=== PATIENT | female | born 1960 | race Caucasian/White ===

== ENCOUNTER 2024-10-04 13:22 | Emergency (ER) | payer OTHER, SELFPAY ==
--- NOTE | ~2024-10-04 | XR_ITS ---
EXAMINATION: 1. XR wrist RT min 3V 2. XR hand RT min 3V DATE: 10/04/2024 13:55 INDICATION: Right hand and wrist injury. TECHNIQUE: 3 views of right wrist and 3 views of right hand were obtained. COMPARISON: None. FINDINGS: RIGHT WRIST: There is a transverse fracture of distal ulnar diaphysis. The distal fracture fragment d emonstrates one half shaft width volar displacement, one half shaft width radial displacement, and 11 degrees ulnar angulation. There is an oblique fracture of distal radius. The distal fracture fragmen t demonstrates 2 mm dorsal displacement, impaction, 36 degrees dorsal angulation, and 20 degrees ulna r angulation. There is dislocation of distal radioulnar joint. There is moderate osteoarthritis of tr iscaphe joint and mild osteoarthritis of first carpometacarpal joint. RIGHT HAND: Again seen are the fractures of radius and ulna. There is mild osteoarthritis of some of the interphalangeal joints. IMPRESSION: 1. Transverse fracture of distal ulnar diaphysis. 2. Oblique fracture of distal radius. Reviewed, dictated and finalized at location A. ULA CHECKER IMPRESSION: 1. Transverse fracture of distal ulnar diaphysis. 2. Oblique fracture of distal radius.
--- NOTE | ~2024-10-04 | XR_ITS ---
EXAMINATION: XR forearm RT 2V DATE: 10/04/2024 13:49 INDICATION: Right forearm injury. TECHNIQUE: 2 views of right forearm were obtained. COMPARISON: None. FINDINGS: There is a transverse fracture of distal ulnar diaphysis. The distal fracture fragment demo nstrates 1 cortical width radial displacement, 15 degrees ulnar angulation, one half shaft width vola r displacement, and 8 degrees dorsal angulation. There is an oblique fracture of the distal radius. T he distal fracture fragment demonstrates impaction and 45 degrees dorsal angulation. The elbow joint spaces are normal. No elbow joint effusion. IMPRESSION: 1. Transverse fracture of distal ulnar diaphysis. 2. Oblique fracture of distal radius. Reviewed, dictated and finalized at location A. PER AND PRESERVER
--- OUTSIDE RECORDS SUMMARY | 2024-10-04 13:31 | XMS_ITS | Clinical Summary ---
Author Organization [facility] Address [address] [place] [address] Care Team Providers Care Senior Professional Services Consultant Name Role Phone Shandra Ruffin Malcolm WISDOM-SOFT TOP INSTALLER Primary Care Provider Source Comments [facility],non-owned Affiliates and Associated Physician Practices is amultiple site organization consisting of ambulatory clinics and hospital sitesin [place], [place], [place] and [place]. This disclosure is being madepursuant to the Care Everywhere program and may not contain all information available regarding this patient. Last updated 18.[facility] Allergies Active Allergy Reactions Criticality Noted Date Comments Ciprofloxacin Other,Myalgias Medium 09/02/2017 Tendon and muscle pain BLE. Citrullus Vulgaris Itching,Skin Reactions Medium 08/14 Watemelon Itch and blotchy on chest and face Fluocinolone Unknown Low 02/14/2019 Unknown to Patient Sulfa Drugs Urticaria,Rash High 04/22/2016 Sulfur Dioxide Urticaria High 02/14/2019 Medications * Be aware that medications may not be up to date on this document. Alwaysverify current medications with the patient. Medication Sig Dispensed Refills Start Date End Date Status calcium-vitamin D (CALTRATE PLUS D) 600-200 MG-UNIT tablet Take 1 Tab by mouth once daily. Active ondansetron, disintegrating, (ZOFRAN ODT) 4 MG tablet Take 4 mg by mouth every 6 hours as needed Active DULoxetine (CYMBALTA) 60 MG capsule Take 1 capsule by mouth once daily 3 04/26/2019 Active ALPRAZolam (XANAX) 0.25 MG tablet Take 1 tablet by mouth 2 times daily as needed Active Multiple Vitamin (MULTI-VITAMIN) TABS Take 1 tablet by mouth once daily Active ASPIRIN LOW DOSE 81 MG tablet Take 162 mg by mouth once daily 09/29/2020 Active alendronate (FOSAMAX) 70 MG tablet Take 1 tablet by mouth every 7 days 10/16/2020 Active carvedilol (COREG) 25 MG tablet Take 25 mg by mouth 2 times daily 12/25/2020 Active omeprazole (PRILOSEC) 40 MG capsule Take 40 mg by mouth daily before breakfast 10/28/2021 Active rosuvastatin (CRESTOR) 5 MG tablet Take 5 mg by mouth at bedtime 11/15/2021 Active famotidine (PEPCID) 20 MG tablet Take 40 mg by mouth 11/12/2021 Act cyn levothyroxine (Synthroid) 100 MCG tablet Take 1 (one) tablet by mouth once daily 08/14/2021 Active Cholecalciferol 50 MCG (2000 UT) Take 1 (one) tablet by mouth once daily 05/05/2022 Active celecoxib (CeleBREX) 100 MG capsule Take 1 (one) capsule by mouth 2 times daily 06/21/2022 Active amLODIPine (Norvasc) 5 MG tablet Take 1 (one) tablet by mouth once daily 05/18/2022 Active Active Problems No known active problems Immunizations Name Administration Dates Next Due INFLUENZA VACCINE, TRIV. (AF LURIA, FLUZONE TRIVALENT; 6MO+) (IIV3) 06/16/2016,06/11/2015,06/01/2014,2012,06/14/2012,06/01/2011 Covid PASSNFLY primary monoval ent 12+ yr 0.3mL Purple cap 04/22/2021,04/01/2021 INFLUENZA VACCINE, QUADR. (F LUZONE; FLULAVAL; FLUARIX; AFLURIA QUADRIVALENT; 6MO+), 0.5 ML (IIV4) 08/14/2021,07/17/2020,06/21/2019,2017,07/05/2017 PNEUMOCOCCAL PPSV23 07/18/2017,06/15/2011 Pneumococcal Pcv13 Conj 10/20/2020 TDAP (7yrs+) 06/15/2011 Social History Tobacco Use Types Packs/Day Years Used Date Smoking Tobacco: Former Cigarettes Smokeless Tobacco: Never Comments:Quit 2012 Alcohol Use Standard Drinks/Week Comments Yes 0 (1 standard drink = 0.6 oz pur e alcohol) occasional- once a week PHQ-2 Answer Date Recorded PHQ2 TOTAL SCORE 0 08/03/2021 Sex and Gender Information Value Date Recorded Sex Assigned at Not on file Gender Identity Not on file Sexual Orientation Not on file Last Filed Vital Signs Vital Sign Reading Time Taken Comments Blood Pressure 132/74 01/18/2023 1:30 PM CDT Pulse 90 01/18/2023 1:30 PM CDT Temperature 37.1 C (98.8 F) 01/18/2023 1:30 PM CDT Respiratory Rate 20 11/09/2011 8:50 AM CDT Oxygen Saturation 95% 01/18/2023 1:30 PM CDT Inhaled Oxygen Concentration - - Weight 70.7 kg (155 lb 12.8 oz) 01/18/2023 1:30 PM CDT Height 157.5 cm (5' 2.01 ) 01/18/2023 1:30 PM CD T Body Mass Index 28.49 01/18/2023 1:30 PM CDT Plan of Treatment Health Maintenance Due Date Last Done Comments COLOGUARD (AGES 45-75) - COLON CA SCREENING 1962 COLON MONITORING 1962 COLONOSCOPY - COLON CA SCREENING 1962 CT COLONOGRAPHY - COLON CA SCREENING 1962 Colorectal Cancer Screening 1962 FIT - COLON CA SCREENING 1962 FLEX SIG - COLON CA SCREENING 1962 MAMMOGRAM 1962 PAP SMEAR 1962 HIV SCREENING 1977 HEPATITIS C SCREENING 05/18/1980 ZOSTER VACCINE (1 of 2) 2012 DTAP/TDAP/TD VACCINES (2 - Td or Tdap) 06/15/2021 06/15/2011 COVID-19 VACCINE (3 - season) 2024 04/22/2021, 04/01/2021 INFLUENZA VACCINE (#1) 2024 3, 05/29/2022, 08/14/2021, Additional history exists DEPRESSION SCREENING 08/29/2024 MEDICARE AWV CALENDAR YEAR 2024 SCREENING FOR DIABETES 08/31/2025 3, 08/11/2021, 03/31/2021, Additional history exists PNEUMOCOCCAL VACCINE 50+ (3 of 3 - PCV20 or PCV21) 10/20/2025 10/20/2020, 07/18/2017, 06/15/2011 Respiratory Syncytial Virus (RSV) Vaccine Pt: or over 60 yrs (1 - 1-dose 75+ series) 2037 PNEUMOCOCCAL VACCINE Aged Out 10/20/2020, 07/18/2017, 06/15/2011 No longer eligible based on patient's age to complete this topic HEPATITIS B VACCINE Aged Out No longe r eligible based on patient's age to complete this topic HIB VACCINE Aged Out No longer eligi ble based on patient's age to complete this topic HPV VACCINE Aged Out No longer eligi ble based on patient's age to complete this topic MENINGOCOCCAL (Group B) VACCINE Aged Out No longer eligible based on patient's age to complete this topic MENINGOCOCCAL VACCINE Aged Out No bryan neo eligible based on patient's age to complete this topic Procedures Procedure Name Priority Date/Time Associated Diagnosis Comments COMPREHENSIVE METABOLIC PANEL 08/31/2022 9:26 AM LAWN TECHNICIAN from Last 3 Months or Most Recently Relevant to Health Maintenance Results * (ABNORMAL) COMPREHENSIVE METABOLIC PANEL (08/31/2022 9:26 AM LAWN TECHNICIAN) Glucose 105(H) 65 - 99 mg/dL [facility] Comment: Fasting reference interval For someone without known diabetes, a glucose value between 100 and 125 mg/dL is consistent with prediabetes and should be confirmed with a follow-up test. BUN 12 7 - 25 mg/dL [facility] Creatinine 0.56 0.50 - 1.05 mg/dL [facility] eGFR by Cystatin C 104 > OR = 60 mL/min/1. 73m2 [facility] Comment: The eGFR is based on the CKD-EPI 2020 equation. To calculate the new eGFR from a previous Creatinine or Cystatin C result, go to https://www.kidney.org/professionals/ kdoqi/gfr%5Fcalculator BUN/Creatinine Ratio NOT APPLICABLE 6 (calc) [facility] Sodium 141 135 - 146 mmol/L [facility] Potassium 4.6 3.5 - 5.3 mmol/L [facility] Chloride 101 98 - 110 mmol/L [facility] CO2 33(H) 20 - 32 mmol/L [facility] Calcium 10.0 8.6 - 10.4 mg/dL [facility] Protein Total 7.3 6.1 - 8.1 g/dL [facility] Albumin 4.1 3.6 - 5.1 g/dL [facility] Globulin Total 3.2 1.9 - 3.7 g/dL (calc) [facility] Albumin/Globuli n Ratio 1.3 1.0 - 2.5 (calc) [facility] Bilirubin Total 0.3 0.2 - 1.2 mg/dL [facility] Alkaline Phosphatase 140 37 - 153 U/L [facility] AST 19 10 - 35 U/L [facility] ALT 13 6 - 29 U/L [facility] Comment: Test Performed at: [email or web address] [id number] [place] [address] LUISA LAWRENCE DO,MPH 08/31/2022 9:26 AM LAWN TECHNICIAN 08/31/2022 9:27 AM LAWN TECHNICIAN Mitchell Zamarripa MD LAB - CHEMISTRY INGRID DE [facility] [address] [place] [address] from Last 3 Months or Most Recently Relevant to Health Maintenance Advance Directives * FULL RESUSCITATION (Latest Code Status on File) Date Activated Date Inactivated Comments 11/08/2011 12:50 PM 11/10/2011 12:21 AM Care Teams Senior Professional Services Consultant Relationship Specialty Start Date End Date Shandra Ruffin, MUSIC PRODUCER-SOFT TOP INSTALLER [address] [place] [phone] PCP - General 04/02/22
--- OUTSIDE RECORDS SUMMARY | 2024-10-04 13:31 | XMS_ITS | Encounter Summary ---
Author Organization [facility] Address [address] [place] [address] Care Team Providers Care Regulatory Attorney Name Role Phone Yg Lee MD Primary Care Provider + Mitchell Zamarripa MD Unavailable [phone] Brit More NP Unavailable [phone] Cliff Ronquillo NP Unavailable [phone] Dick Aguilar Unavailable [phone] Gavin Sewell MD Unavailable [phone] Encounter Details Date Type Department Care Team (Late st Contact Info) Description 12/14/2021 Telephone [facility] [address] [place] [id number] Fariha Hampton, RT Social History Tobacco Use Types Packs/Day Years Used Date Smoking Tobacco: Former Smokeless Tobacco: Never Alcohol Use Standard Drinks/Week Comments Yes 0 (1 standard drink = 0.6 oz pur e alcohol) occasional Comments No Sex and Gender Information Value Date Recorded Sex Assigned at Not on file Legal Sex Female 11:50 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 Gender Identity Not on file Sexual Orientation Not on file documented as of this encounter Plan of Treatment Not on file documented as of this encounter Visit Diagnoses Not on filedocumented in this encounter Additional Health Concerns Infection Onset Date Last Indicated Resolved Time COVID: Suspected 12/16/2021 12/16/2021 12/17/2021 3:05 AM CDT COVID: Suspected 12/16/2021 12/16/2021 12/17/2021 6:41 AM CDT COVID: Suspected 11/22/2023 11/22/2023 11/22/2023 12:12 PM CDT COVID: Suspected 07/22/2024 07/22/2024 07/22/2024 9:25 AM TOOL GRINDER OPERATOR documented as of this encounter Care Teams Regulatory Attorney Relationship Specialty Start Date End Date Yg Lee MD [address] [place] [phone] PCP - General Internal Medicine 08/19/20 Mitchell Zamarripa MD [address] [place] [id number] Referring Physician Rheumatology 03/11/22 Brit More NP [address] [place] [id number] Nurse Practitioner Cardiovascular Disease 03/11/22 Cliff Ronquillo NP [address] [place] [address] Nurse Practitioner Nurse Practitioner 05/05/22 Dick Aguilar PA [address] [place] [address] Physician Hydramatic Specialist Orthopedic Surgery 11/11/22 Gavin Sewell MD [address] [place] [address] Surgeon Orthopedic Surgery 12/24/22 documented as of this encounter
--- OUTSIDE RECORDS SUMMARY | 2024-10-04 13:31 | XMS_ITS | Patient Health Summary ---
Author Organization [facility] Address [address] [place] [address] Care Team Providers Care Inspector Dials Name Role Phone Shandra Ruffin Malcolm WISDOM-MANUFACTURING FINANCE MANAGER Primary Care Provider Note from [facility],non-owned Affiliates and Associated Physician Practices is amultiple site organization consisting of ambulatory clinics and hospital sitesin [place], [place], [place] and [place]. This disclosure is being madepursuant to the Care Everywhere program and may not contain all information available regarding this patient. Last updated 18.[facility] Allergies * Ciprofloxacin(Other,Myalgias) -Medium Criticality * Citrullus Vulgaris(Itching,Skin Reactions) -Medium Criticality * Fluocinolone(Unknown) -Low Criticality * Sulfa Drugs(Urticaria,Rash) -High Criticality * Sulfur Dioxide(Urticaria) -High Criticality Medications * Be aware that medications may not be up to date on this document. Alwaysverify current medications with the patient. * calcium-vitamin D (CALTRATE PLUS D) 600-200 MG-UNIT tablet Take 1 Tab by mouth once daily. * ondansetron, disintegrating, (ZOFRAN ODT) 4 MG tablet Take 4 mg by mouth every 6 hours as needed * DULoxetine (CYMBALTA) 60 MG capsule(Started 04/26/2019) Take 1 capsule by mouth once daily 3 refills left * ALPRAZolam (XANAX) 0.25 MG tablet Take 1 tablet by mouth 2 times daily as needed * Multiple Vitamin (MULTI-VITAMIN) TABS Take 1 tablet by mouth once daily * ASPIRIN LOW DOSE 81 MG tablet(Started 09/29/2020) Take 162 mg by mouth once daily * alendronate (FOSAMAX) 70 MG tablet(Started 10/16/2020) Take 1 tablet by mouth every 7 days * carvedilol (COREG) 25 MG tablet(Started 12/25/2020) Take 25 mg by mouth 2 times daily * omeprazole (PRILOSEC) 40 MG capsule(Started 10/28/2021) Take 40 mg by mouth daily before breakfast * rosuvastatin (CRESTOR) 5 MG tablet(Started 11/15/2021) Take 5 mg by mouth at bedtime * famotidine (PEPCID) 20 MG tablet(Started 11/12/2021) Take 40 mg by mouth * levothyroxine (Synthroid) 100 MCG tablet(Started 08/14/2021) Take 1 (one) tablet by mouth once daily * Cholecalciferol 50 MCG (2000 UT)(Started 05/05/2022) Take 1 (one) tablet by mouth once daily * celecoxib (CeleBREX) 100 MG capsule(Started 06/21/2022) Take 1 (one) capsule by mouth 2 times daily * amLODIPine (Norvasc) 5 MG tablet(Started 05/18/2022) Take 1 (one) tablet by mouth once daily Active Problems No known active problems Immunizations * INFLUENZA VACCINE, TRIV. (AFLURIA, FLUZONE TRIVALENT; 6MO+) (IIV3)(Given 06/16/2016, 06/11/2015, 06/01/2014, 07/28/2013, 06/14/2012, 06/01/2011) * Covid [facility] primary monovalent 12+ yr 0.3mL Purple cap(Given 04/22/2021, 04/01/2021) * INFLUENZA VACCINE, QUADR. (FLUZONE; FLULAVAL; FLUARIX; AFLURIA QUADRIVALENT; 6MO+), 0.5 ML (IIV4)(Given 08/14/2021, 07/17/2020, 06/21/2019, 06/09/2018, 07/05/2017) * PNEUMOCOCCAL PPSV23(Given 07/18/2017, 06/15/2011) * Pneumococcal Pcv13 Conj(Given 10/20/2020) * TDAP (7yrs+)(Given 06/15/2011) Social History Tobacco Use Types Packs/Day Years [...] Mass Index 28.49 01/18/2023 1:30 PM CDT Procedures * C-REACTIVE PROTEIN(Performed 08/31/2022) * CBC W AUTO DIFFERENTIAL(Performed 08/31/2022) * ERYTHROCYTE SEDIMENTATION RATE(Performed 08/31/2022) * COMPREHENSIVE METABOLIC PANEL(Performed 08/31/2022) * C-REACTIVE PROTEIN(Performed 08/11/2021) * CBC W AUTO DIFFERENTIAL(Performed 08/11/2021) * ERYTHROCYTE SEDIMENTATION RATE(Performed 08/11/2021) * URINALYSIS W/MICROSCOPIC NO CULTURE(Performed 08/11/2021) * COMPREHENSIVE METABOLIC PANEL(Performed 08/11/2021) * URIC ACID BLOOD(Performed 08/11/2021) * XR FOOT LEFT 3VW OR MORE(Performed 08/03/2021) Performed for Arthralgia, unspecified joint * XR FOOT RIGHT 3VW OR MORE(Performed 08/03/2021) Performed for Arthralgia, unspecified joint * XR WRIST LEFT 3VW OR MORE(Performed 08/03/2021) Performed for Arthralgia, unspecified joint * XR WRIST RIGHT 3VW OR MORE(Performed 08/03/2021) Performed for Arthralgia, unspecified joint * XR HAND LEFT 3VW OR MORE(Performed 08/03/2021) Performed for Arthralgia, unspecified joint * XR HAND RIGHT 3VW OR MORE(Performed 08/03/2021) Performed for Arthralgia, unspecified joint * ALDOLASE(Performed 03/31/2021) * RNA POLYMERASE III ANTIBODY IGG(Performed 03/31/2021) * SS-B (SJOGREN'S) ANTIBODY(Performed 03/31/2021) * SS-A (SJOGREN'S) ANTIBODY(Performed 03/31/2021) * CHROMATIN ANTIBODY(Performed 03/31/2021) * CENTROMERE B ANTIBODIES(Performed 03/31/2021) * MONTIEL (SM)+SCALE MANAGER ANTIBODY PANEL(Performed 03/31/2021) * MARTHA-1 ANTIBODY(Performed 03/31/2021) * SCLERODERMA 70 (SCL) ANTIBODY(Performed 03/31/2021) * C-REACTIVE PROTEIN(Performed 03/31/2021) * DNA ANTIBODY DOUBLE STRANDED(Performed 03/31/2021) * CBC W AUTO DIFFERENTIAL(Performed 03/31/2021) * URINALYSIS W/MICROSCOPIC NO CULTURE(Performed 03/31/2021) * ERYTHROCYTE SEDIMENTATION RATE(Performed 03/31/2021) * HISTONE ANTIBODY(Performed 03/31/2021) * PM/SCL-100 ANTIBODY IGG(Performed 03/31/2021) * CK BLOOD(Performed 03/31/2021) * COMPREHENSIVE METABOLIC PANEL(Performed 03/31/2021) * LDH BLOOD(Performed 03/31/2021) * C-REACTIVE PROTEIN(Performed 12/23/2020) * CBC W AUTO DIFFERENTIAL(Performed 12/23/2020) * URINALYSIS W/MICROSCOPIC NO CULTURE(Performed 12/23/2020) * ERYTHROCYTE SEDIMENTATION RATE(Performed 12/23/2020) * COMPREHENSIVE METABOLIC PANEL(Performed 12/23/2020) * URIC ACID BLOOD(Performed 12/23/2020) * URINALYSIS W/MICROSCOPIC REFLEX TO CULTURE(Performed 12/21/2019) Performed for Arthritis * URIC ACID BLOOD(Performed 12/21/2019) Performed for Arthritis * ERYTHROCYTE SEDIMENTATION RATE(Performed 12/21/2019) Performed for Arthritis * C-REACTIVE PROTEIN(Performed 12/21/2019) Performed for Arthritis * COMPREHENSIVE METABOLIC PANEL(Performed 12/21/2019) Performed for Arthritis * CK BLOOD(Performed 12/21/2019) Performed for Arthritis * LDH BLOOD(Performed 12/21/2019) Performed for Arthritis * ALDOLASE(Performed 12/21/2019) Performed for Arthritis * CBC W AUTO DIFFERENTIAL(Performed 12/21/2019) Performed for Arthritis * CULTURE URINE REFLEXED I(Performed 12/21/2019) * TY BLOOD SINGLE PATTERN(Performed 07/23/2019) Performed for Arthritis, Myalgia, Hx of psoriasis * SCLERODERMA COMPREHENSIVE AB PANEL(Performed 07/23/2019) Performed for Arthritis, Myalgia, Hx of psoriasis * LUPUS ANTICOAGULANT PANEL(Performed 07/23/2019) Performed for Arthritis, Myalgia, Hx of psoriasis * DNA ANTIBODY DS CRITHIDIA TITER(Performed 07/23/2019) Performed for Arthritis, Myalgia, Hx of psoriasis * RHEUMATOID FACTOR BLOOD QUANTITATIVE(Performed 07/23/2019) Performed for Arthritis, Myalgia, Hx of psoriasis * CYCLIC CITRUL PEPTIDE ANTIBODY IGG/IGA (CCP)(Performed 07/23/2019) Performed for Arthritis, Myalgia, Hx of psoriasis * OPH OCT TEST [facility]U(Performed 06/25/2019) Performed for Encounter for long-term (current) use of medications * URINALYSIS REFLEX TO MICROSCOPIC NO CULTURE(Performed 05/24/2019) Performed for Arthritis of spine * XR ANKLE RIGHT 3VW OR MORE(Performed 05/24/2019) Performed for Arthritis, Myalgia, Hx of psoriasis * XR ANKLE LEFT 3VW OR MORE(Performed 05/24/2019) Performed for Arthritis, Myalgia, Hx of psoriasis * XR FOOT RIGHT 3VW OR MORE(Performed 05/24/2019) Performed for Arthritis, Myalgia, Hx of psoriasis * XR FOOT LEFT 3VW OR MORE(Performed 05/24/2019) Performed for Arthritis, Myalgia, Hx of psoriasis * XR HAND RIGHT 3VW OR MORE(Performed 05/24/2019) Performed for Arthritis, Myalgia, Hx of psoriasis * XR HAND LEFT 3VW OR MORE(Performed 05/24/2019) Performed for Arthritis, Myalgia, Hx of psoriasis * SCALE MANAGER ANTIBODY(Performed 05/24/2019) Performed for Arthritis, Myalgia, Hx of psoriasis * SCLERODERMA 70 (SCL) ANTIBODY(Performed 05/24/2019) Performed for Arthritis, Myalgia, Hx of psoriasis * URIC ACID BLOOD(Performed 05/24/2019) Performed for Arthritis, Myalgia, Hx of psoriasis * VITAMIN D 25-HYDROXY(Performed 05/24/2019) Performed for Arthritis, Myalgia, Hx of psoriasis * ERYTHROCYTE SEDIMENTATION RATE(Performed 05/24/2019) Performed for Arthritis, Myalgia, Hx of psoriasis * C-REACTIVE PROTEIN(Performed 05/24/2019) Performed for Arthritis, Myalgia, Hx of psoriasis * COMPREHENSIVE METABOLIC PANEL(Performed 05/24/2019) Performed for Arthritis, Myalgia, Hx of psoriasis * CBC W AUTO DIFFERENTIAL(Performed 05/24/2019) Performed for Arthritis, Myalgia, Hx of psoriasis * CK BLOOD(Performed 05/24/2019) Performed for Arthritis, Myalgia, Hx of psoriasis * LDH BLOOD(Performed 05/24/2019) Performed for Arthritis, Myalgia, Hx of psoriasis * ALDOLASE(Performed 05/24/2019) Performed for Arthritis, Myalgia, Hx of psoriasis * COMPLEMENT TOTAL(Performed 05/24/2019) Performed for Arthritis, Myalgia, Hx of psoriasis * COMPLEMENT C4(Performed 05/24/2019) Performed for Arthritis, Myalgia, Hx of psoriasis * COMPLEMENT C3(Performed 05/24/2019) Performed for Arthritis, Myalgia, Hx of psoriasis * CARDIOLIPIN ANTIBODY IGM(Performed 05/24/2019) Performed for Arthritis, Myalgia, Hx of psoriasis * CARDIOLIPIN ANTIBODY IGG(Performed 05/24/2019) Performed for Arthritis, Myalgia, Hx of psoriasis * CARDIOLIPIN ANTIBODY IGA(Performed 05/24/2019) Performed for Arthritis, Myalgia, Hx of psoriasis * BETA-2 GLYCOPROTEIN 1 ANTIBODY IGM(Performed 05/24/2019) Performed for Arthritis, Myalgia, Hx of psoriasis * BETA-2 GLYCOPROTEIN 1 ANTIBODY IGG(Performed 05/24/2019) Performed for Arthritis, Myalgia, Hx of psoriasis * BETA-2 GLYCOPROTEIN 1 ANTIBODY IGA(Performed 05/24/2019) Performed for Arthritis, Myalgia, Hx of psoriasis * SS-B (SJOGREN'S) ANTIBODY(Performed 05/24/2019) Performed for Arthritis, Myalgia, Hx of psoriasis * SS-A (SJOGREN'S) ANTIBODY(Performed 05/24/2019) Performed for Arthritis, Myalgia, Hx of psoriasis * MONTIEL (SM) ANTIBODY LAUREN(Performed 05/24/2019) Performed for Arthritis, Myalgia, Hx of psoriasis * TY BLOOD SCREEN W/REFLEX TITER(Performed 05/24/2019) Performed for Arthritis, Myalgia, Hx of psoriasis * CARDIAC ECHOCARDIOGRAM COMPLETE ORDER(Performed 11/11/2011) * CARDIAC RHYTHM STRIP ORDER(Performed 11/11/2011) * BLOOD TYPE VERIFICATION(Performed 10/28/2011) * TYPE + SCREEN PANEL(Performed 10/28/2011) Performed for Preoperative examination, unspecified * CBC W/O DIFFERENTIAL(Performed 10/28/2011) Performed for Preoperative examination, unspecified * BASIC METABOLIC PANEL (CALCIUM TOTAL)(Performed 10/28/2011) Performed for Preoperative examination, unspecified * CULTURE URINE COMPREHENSIVE(Performed 06/12/2011) * URINALYSIS - POINT OF CARE (AMB) SLU(Performed 08/29/1998) Results * (ABNORMAL) C-REACTIVE PROTEIN (08/31/2022 9:26 AM PRIMARY TEACHING ASSISTANT) Only the most recent of6 resultswithin the time period is included. Pathologist [facility] C-Reactive Protein 27.6(H) <8.0 mg/L [facility] Comment: REPORT COMMENT: FASTING:YES Test Performed at: [employer], [place] [id number] LUISA LAWRENCE DO,MPH 08/31/2022 9:26 AM PRIMARY TEACHING ASSISTANT 08/31/2022 9:27 AM PRIMARY TEACHING ASSISTANT Mitchell Zamarripa MD LAB - CHEMISTRY INGRID DE [facility] [address] [place] [address] * ERYTHROCYTE SEDIMENTATION RATE (08/31/2022 9:26 AM PRIMARY TEACHING ASSISTANT) Only the most recent of6 resultswithin the time period is included. Pathologist [facility] Erythrocyte Sedimentation Rate Westergren 25 < OR = 30 mm/h [facility] Comment: Test Performed at: [facility] [id number], [place] [id number] LUISA LAWRENCE DO,MPH 08/31/2022 9:26 AM PRIMARY TEACHING ASSISTANT 08/31/2022 9:27 AM PRIMARY TEACHING ASSISTANT Mitchell Zamarripa MD LAB - HEMATOLOGY ORD ERABLES [facility] [address] [place] [address] * (ABNORMAL) CBC WITH DIFFERENTIAL (08/31/2022 9:26 AM PRIMARY TEACHING ASSISTANT) Only the most recent of6 resultswithin the time period is included. White Blood Cell Count 5.6 3.8 - 10.8 Thousand/ uL [facility] RBC 4.35 3.80 - 5.10 Million/u L [facility] Hemoglobin 13.1 11.7 - 15.5 g/dL [facility] Hematocrit 39.7 35.0 - 45.0 % [facility] MCV 91.3 80.0 - 100.0 fL [facility] MCH 30.1 27.0 - 33.0 pg [facility] MCHC 33.0 32.0 - 36.0 g/dL [facility] RDW 13.6 11.0 - 15.0 % [facility] Platelet Count 441(H) 140 - 400 Thousand/ uL [facility] MPV 9.2 7.5 - 12.5 fL [facility] Neutrophil Absolute 3982 1500 - 7800 cells/uL [facility] Absolute Bands [facility] Metamyelocytes Absolute [facility] Myelocytes Absolute [facility] Absolute Prolymphocytes [facility] Lymphocytes Absolute 1075 850 - 3900 cells/uL [facility] Absolute Monocytes 403 200 - 950 cells/uL [facility] Eosinophils Absolute 90 15 - 500 cells/uL [facility] Basophils Absolute 50 0 - 200 cells/uL [facility] Absolute Blasts [facility] nRBC Absolute [facility] Granulocytes % 71.1 % [facility] Band Neutrophil [facility] Metamyelocytes [facility] Myelocytes [facility] Promyelocytes [facility] Lymphocytes % 19.2 % [facility] Lymphocyte Reactive [facility] Monocytes % 7.2 % [facility] Eosinophils % 1.6 % [facility] Basophils % 0.9 % [facility] Comment: Test Performed at: [facility] [id number] [employer] [place] [id number] LUISA LAWRENCE DO,MPH Blasts [facility] nRBC [facility] Comments [facility] Comment: Test Performed at: [facility] [id number] [facility] [id number] LUISA LAWRENCE DO,MPH 08/31/2022 9:26 AM PRIMARY TEACHING ASSISTANT 08/31/2022 9:27 AM PRIMARY TEACHING ASSISTANT Mitchell Zamarripa MD LAB - HEMATOLOGY ORD [facility] Organization Address City/State/ZIP Co de Phone Number [facility] [address] [place] [address] * (ABNORMAL) COMPREHENSIVE METABOLIC PANEL (08/31/2022 9:26 AM PRIMARY TEACHING ASSISTANT) Only the most recent of6 resultswithin the time period is included. Glucose 105(H) 65 - 99 mg/dL [facility] [...] https://www.kidney.org/professionals/ kdoqi/gfr%5Fcalculator BUN/Creatinine Ratio NOT APPLICABLE 6 - 22 (calc) [facility] Sodium 141 135 - 146 [...] 29 U/L [facility] Comment: Test Performed at: [facility] [id number] [place] [address] LUISA LAWRENCE DO,MPH 08/31/2022 9:26 AM PRIMARY TEACHING ASSISTANT 08/31/2022 9:27 AM PRIMARY TEACHING ASSISTANT Mitchell Zamarripa MD LAB - CHEMISTRY ORDE GAB Performing Organization Address [facility] de Phone Number [facility] [address] [place] [phone] * URINALYSIS W/MICROSCOPIC NO CULTURE (08/11/2021 8:16 AM PRIMARY TEACHING ASSISTANT) Only the most recent of3 resultswithin the time period is included. Color UA YELLOW YELLOW [facility] Appearance CLEAR CLEAR [facility] Specific [place] UA 1.010 1.001 - 1.035 [facility] pH UA 6.5 5.0 - 8.0 [facility] Glucose UA NEGATIVE NEGATIVE [facility] Bilirubin UA NEGATIVE NEGATIVE [facility] Ketone UA NEGATIVE NEGATIVE [facility] Blood UA NEGATIVE NEGATIVE [facility] Protein UA NEGATIVE NEGATIVE [facility] Nitrite UA NEGATIVE NEGATIVE [facility] Leukocyte UA NEGATIVE NEGATIVE [facility] WBC UA 0-5 < OR = 5 /HPF [facility] RBC UA NONE SEEN < OR = 2 /HPF [facility] Epithelial Cell UA 0-5 < OR = 5 /HPF [facility] Transitional Epithelial Cells [facility] Renal Epithelial Cells [facility] Bacteria UA NONE SEEN NONE SEEN /HPF [facility] Calcium Oxalate Crystals [facility] Triple Phosphate Crystals [facility] Uric Acid Crystals [facility] Amorphous UA [facility] Crystals UA [facility] Hyaline Casts NONE SEEN NONE SEEN /LPF [facility] Comment: Test Performed at: [employer], [place] [id number] LUISA LAWRENCE DO,MPH Granular Casts [facility] Casts UA [facility] Yeast [facility] Comments [facility] Note [facility] Comment: Test Performed at: [employer], [place] [id number] LUISA LAWRENCE DO,MPH 08/11/2021 8:16 AM PRIMARY TEACHING ASSISTANT 08/11/2021 8:17 AM PRIMARY TEACHING ASSISTANT Mitchell Zamarripa MD LAB - URINALYSIS ORD ERABLES Performing Organization Address [facility] Co de Phone Number [facility] [address] [place] [address] * URIC ACID BLOOD (08/11/2021 8:16 AM PRIMARY TEACHING ASSISTANT) Only the most recent of4 resultswithin the time period is included. Uric Acid 5.8 2.5 - 7.0 mg/dL [facility] Comment: Therapeutic target for gout patients: <6.0 mg/dL Test Performed at: [employer] [id number] LUISA LAWRENCE DO,MPH 08/11/2021 8:16 AM PRIMARY TEACHING ASSISTANT 08/11/2021 8:17 AM PRIMARY TEACHING ASSISTANT Mitchell Zamarripa MD LAB - CHEMISTRY INGRID [place] Organization Address City/State/ZIP Co de Phone Number [facility] [address] [place] [address] * XR FOOT RIGHT 3VW OR MORE (08/03/2021 2:52 PM PRIMARY TEACHING ASSISTANT) Only the most recent of2 resultswithin the time period is included. Anatomical Region Laterality Modality Ankle / Foot Radiographic Kristyn ging 08/03/2021 2:57 PM PRIMARY TEACHING ASSISTANT Impressions 08/03/2021 3:17 PM PRIMARY TEACHING ASSISTANT IMPRESSION: 1. Right hand: Mild arthritis of the third metacarpophalangeal joint with a small chronic erosion which is unchanged. This likely reflects the patient's history of gout. 2. Right wrist: Mild arthritis at the distal radioulnar joint and scaphoid trapezium trapezoid joint, not changed. 3. Left hand: Mild to moderate osteoarthritis at the first carpometacarpal joint, not changed. 4. Left wrist: Mild to moderate arthritis at the first carpometacarpal and distal radioulnar joints, with increase in size of the cyst in the distal ulna. 5. Right foot: No arthritis. 6. Left foot: No arthritis. Chronic posttraumatic changes in the distal tibia consistent with old fracture again demonstrated. This report was electronically signed by DIMAS RAINES MD on 08/03/2021 3:17 PM . Narrative 08/03/2021 3:17 PM PRIMARY TEACHING ASSISTANT Exam: 1.XR HAND RIGHT 3VW 2.XR FOOT LEFT 3VW 3.XR FOOT RIGHT 3VW 4.XR WRIST LEFT 3VW 5.XR WRIST RIGHT 3VW 6.XR HAND LEFT 3VW History: M25.50: Arthralgia, unspecified joint 61 year oldfemalewith OA, polyarthralgia, gout Comparison: Right and left hand and foot radiographs dated 05/24/2019. Findings: Right hand: No fracture or dislocation is present. There is mild to moderate narrowing of the third metacarpophalangeal joint space with small osteophytes. There is a small cortical defect in the base of the third finger proximal phalanx consistent with a chronic erosion, not changed. The other metacarpophalangeal joint spaces are normal. There is minimal degenerative change at the second finger distal interphalangeal joint with a small ossicle or osteophyte. Bone density is normal. The soft tissues are normal. Right wrist: No fracture or dislocation is present. Ulnar variance is +3 mm. There is cystic change in the proximal aspect of the lunate. These findings suggest ulnar-lunate impaction. There is mild osteoarthritis of the distal radioulnar joint with osteophytes. There is moderate narrowing of the sijfcnhn-wlseoegyd-jlokmdwhd joint space. No erosions are seen. The bones are mildly osteopenic. The soft tissues are normal. Left hand: No fracture or dislocation is present. The metacarpophalangeal and interphalangeal joint spaces are normal. Small calcifications are seen adjacent to the second and third finger distal interphalangeal joints. No erosions are present. There is mild to moderate osteoarthritis the first carpometacarpal joint. No erosions are seen. The soft tissues are normal. Bone density is normal. Left wrist: No fracture or dislocation is present. Ulnar variance is +3 mm. There is a subchondral cyst in the distal ulna measuring 8mm, previously 5 mm. There are also small subchondral cysts in the proximal aspect of the lunate. These findings can be seen with ulnar-lunate impaction. No definite erosions. Osteophytes are present at the distal radioulnar joint. The bones are slightly osteopenic. The soft tissues are normal. Right foot: No fracture or dislocation is present. The joint spaces are normal. No erosions are seen. Bone density is normal. The soft tissues are normal. A small plantar calcaneal spur is visible. Left foot: No acute fracture or dislocation is present. There is a chronic healed fracture distal tibia. The joint spaces are normal. No erosions are seen. Bone density is normal. The soft tissues are normal. Procedure Note Dimas Raines MD - 08/03/2021 Exam: 1.XR HAND RIGHT 3VW 2.XR FOOT LEFT 3VW 3.XR FOOT RIGHT 3VW 4.XR WRIST LEFT 3VW 5.XR WRIST RIGHT 3VW 6.XR HAND LEFT 3VW History: M25.50: Arthralgia, unspecified joint 61 year oldfemalewith OA, polyarthralgia, gout Comparison: Right and left hand and foot radiographs dated 05/24/2019. Findings: Right hand: No fracture or dislocation is present. There is mild to moderatenarrowing of the third metacarpophalangeal joint space with small osteophytes.There is a small cortical defect in the base of the third finger proximal phalanx consistent with a chronic erosion, not changed. The other metacarpophalangeal joint spaces are normal. There is minimaldegenerative change at the second finger distal interphalangeal joint with a small ossicle or osteophyte. Bone density is normal. The soft tissues are normal. Right wrist: No fracture or dislocation is present. Ulnar variance is +3 mm. There is cystic change in the proximal aspect of the lunate. These findingssuggest ulnar-lunate impaction. There is mild osteoarthritis of the distal radioulnar joint with osteophytes. There is moderate narrowing of the drpjkqkc-btrikibtr-ikcusqmtr joint space. No erosions are seen. Thebones are mildly osteopenic. The soft tissues are normal. Left hand: No fracture or dislocation is present. The metacarpophalangeal and interphalangeal joint spaces are normal. Small calcifications are seen adjacent to the second and third finger distal interphalangeal joints.No erosions are present. There is mild to moderate osteoarthritis the first carpometacarpal joint. No erosions are seen. The soft tissues arenormal. Bone density is normal. Left wrist: No fracture or dislocation is present. Ulnar variance is +3 mm. There uzair subchondral cyst in the distal ulna measuring 8mm, previously 5 mm.There are also small subchondral cysts in the proximal aspect of the lunate. These findings can be seen with ulnar-lunate impaction. No definite erosions. Osteophytes are present at the distal radioulnar joint. The bones are slightly osteopenic. The soft tissues are normal. Right foot: No fracture or dislocation is present. The joint spaces are normal. No erosions are seen. Bone density is normal. The soft tissues arenormal. A small plantar calcaneal spur is visible. Left foot: No acute fracture or dislocation is present. There is a chronic healed fracture distal tibia. The joint spaces are normal. No erosions areseen. Bone density is normal. The soft tissues are normal. IMPRESSION: 1. Right hand: Mild arthritis of the third metacarpophalangeal jointwith a small chronic erosion which is unchanged. This likely reflects the patient's history of gout. 2. Right wrist: Mild arthritis at the distal radioulnar joint andscaphoid trapezium trapezoid joint, not changed. 3. Left hand: Mild to moderate osteoarthritis at the firstcarpometacarpal joint, not changed. 4. Left wrist: Mild to moderate arthritis at the first carpometacarpaland distal radioulnar joints, with increase in size of the cyst in thedistal ulna. 5. Right foot: No arthritis. 6. Left foot: No arthritis. Chronic posttraumatic changes in the distal tibia consistent with old fracture again demonstrated. This report was electronically signed by DIMAS RAINES MD on08/03/2021 3:17 PM . Mitchell Zamarripa MD DIAGNOSTIC IMAGING O RDERABLES * XR FOOT LEFT 3VW OR MORE (08/03/2021 2:52 PM PRIMARY TEACHING ASSISTANT) Only the most recent of2 resultswithin the time period is included. Anatomical Region Laterality Modality Ankle / Foot Radiographic Kristyn ging 08/03/2021 2:57 PM PRIMARY TEACHING ASSISTANT Impressions 08/03/2021 3:17 PM PRIMARY TEACHING ASSISTANT IMPRESSION: 1. Right hand: Mild arthritis of the third metacarpophalangeal joint with a small chronic erosion which is unchanged. This likely reflects the patient's history of gout. 2. Right wrist: Mild arthritis at the distal radioulnar joint and scaphoid trapezium trapezoid joint, not changed. 3. Left hand: Mild to moderate osteoarthritis at the first carpometacarpal joint, not changed. 4. Left wrist: Mild to moderate arthritis at the first carpometacarpal and distal radioulnar joints, with increase in size of the cyst in the distal ulna. 5. Right foot: No arthritis. 6. Left foot: No arthritis. Chronic posttraumatic changes in the distal tibia consistent with old fracture again demonstrated. This report was electronically signed by DIMAS RAINES MD on 08/03/2021 3:17 PM . Narrative 08/03/2021 3:17 PM PRIMARY TEACHING ASSISTANT Exam: 1.XR HAND RIGHT 3VW 2.XR FOOT LEFT 3VW 3.XR FOOT RIGHT 3VW 4.XR WRIST LEFT 3VW 5.XR WRIST RIGHT 3VW 6.XR HAND LEFT 3VW History: M25.50: Arthralgia, unspecified joint 61 year oldfemalewith OA, polyarthralgia, gout Comparison: Right and left hand and foot radiographs dated 05/24/2019. Findings: Right hand: No fracture or dislocation is present. There is mild to moderate narrowing of the third metacarpophalangeal joint space with small osteophytes. There is a small cortical defect in the base of the third finger proximal phalanx consistent with a chronic erosion, not changed. The other metacarpophalangeal joint spaces are normal. There is minimal degenerative change at the second finger distal interphalangeal joint with a small ossicle or osteophyte. Bone density is normal. The soft tissues are normal. Right wrist: No fracture or dislocation is present. Ulnar variance is +3 mm. There is cystic change in the proximal aspect of the lunate. These findings suggest ulnar-lunate impaction. There is mild osteoarthritis of the distal radioulnar joint with osteophytes. There is moderate narrowing of the nepbdbkd-pmpnswbpi-jezfnqncu joint space. No erosions are seen. The bones are mildly osteopenic. The soft tissues are normal. Left hand: No fracture or dislocation is present. The metacarpophalangeal and interphalangeal joint spaces are normal. Small calcifications are seen adjacent to the second and third finger distal interphalangeal joints. No erosions are present. There is mild to moderate osteoarthritis the first carpometacarpal joint. No erosions are seen. The soft tissues are normal. Bone density is normal. Left wrist: No fracture or dislocation is present. Ulnar variance is +3 mm. There is a subchondral cyst in the distal ulna measuring 8mm, previously 5 mm. There are also small subchondral cysts in the proximal aspect of the lunate. These findings can be seen with ulnar-lunate impaction. No definite erosions. Osteophytes are present at the distal radioulnar joint. The bones are slightly osteopenic. The soft tissues are normal. Right foot: No fracture or dislocation is present. The joint spaces are normal. No erosions are seen. Bone density is normal. The soft tissues are normal. A small plantar calcaneal spur is visible. Left foot: No acute fracture or dislocation is present. There is a chronic healed fracture distal tibia. The joint spaces are normal. No erosions are seen. Bone density is normal. The soft tissues are normal. Procedure Note Dimas Raines MD - 08/03/2021 Exam: 1.XR HAND RIGHT 3VW 2.XR FOOT LEFT 3VW 3.XR FOOT RIGHT 3VW 4.XR WRIST LEFT 3VW 5.XR WRIST RIGHT 3VW 6.XR HAND LEFT 3VW History: M25.50: Arthralgia, unspecified joint 61 year oldfemalewith OA, polyarthralgia, gout Comparison: Right and left hand and foot radiographs dated 05/24/2019. Findings: Right hand: No fracture or dislocation is present. There is mild to moderatenarrowing of the third metacarpophalangeal joint space with small osteophytes.There is a small cortical defect in the base of the third finger proximal phalanx consistent with a chronic erosion, not changed. The other metacarpophalangeal joint spaces are normal. There is minimaldegenerative change at the second finger distal interphalangeal joint with a small ossicle or osteophyte. Bone density is normal. The soft tissues are normal. Right wrist: No fracture or dislocation is present. Ulnar variance is +3 mm. There is cystic change in the proximal aspect of the lunate. These findingssuggest ulnar-lunate impaction. There is mild osteoarthritis of the distal radioulnar joint with osteophytes. There is moderate narrowing of the aicpwxsp-vuvvwxftu-wgkeaaben joint space. No erosions are seen. Thebones are mildly osteopenic. The soft tissues are normal. Left hand: No fracture or dislocation is present. The metacarpophalangeal and interphalangeal joint spaces are normal. Small calcifications are seen adjacent to the second and third finger distal interphalangeal joints.No erosions are present. There is mild to moderate osteoarthritis the first carpometacarpal joint. No erosions are seen. The soft tissues arenormal. Bone density is normal. Left wrist: No fracture or dislocation is present. Ulnar variance is +3 mm. There uzair subchondral cyst in the distal ulna measuring 8mm, previously 5 mm.There are also small subchondral cysts in the proximal aspect of the lunate. These findings can be seen with ulnar-lunate impaction. No definite erosions. Osteophytes are present at the distal radioulnar joint. The bones are slightly osteopenic. The soft tissues are normal. Right foot: No fracture or dislocation is present. The joint spaces are normal. No erosions are seen. Bone density is normal. The soft tissues arenormal. A small plantar calcaneal spur is visible. Left foot: No acute fracture or dislocation is present. There is a chronic healed fracture distal tibia. The joint spaces are normal. No erosions areseen. Bone density is normal. The soft tissues are normal. IMPRESSION: 1. Right hand: Mild arthritis of the third metacarpophalangeal jointwith a small chronic erosion which is unchanged. This likely reflects the patient's history of gout. 2. Right wrist: Mild arthritis at the distal radioulnar joint andscaphoid trapezium trapezoid joint, not changed. 3. Left hand: Mild to moderate osteoarthritis at the firstcarpometacarpal joint, not changed. 4. Left wrist: Mild to moderate arthritis at the first carpometacarpaland distal radioulnar joints, with increase in size of the cyst in thedistal ulna. 5. Right foot: No arthritis. 6. Left foot: No arthritis. Chronic posttraumatic changes in the distal tibia consistent with old fracture again demonstrated. This report was electronically signed by DIMAS RAINES MD on08/03/2021 3:17 PM . Mitchell Zamarripa MD DIAGNOSTIC IMAGING O RDERABLES * XR HAND RIGHT 3VW OR MORE (08/03/2021 2:52 PM PRIMARY TEACHING ASSISTANT) Only the most recent of2 resultswithin the time period is included. Anatomical Region Laterality Modality Wrist / Hand Radiographic Kristyn ging 08/03/2021 2:57 PM PRIMARY TEACHING ASSISTANT Impressions 08/03/2021 3:17 PM PRIMARY TEACHING ASSISTANT IMPRESSION: 1. Right hand: Mild arthritis of the third metacarpophalangeal joint with a small chronic erosion which is unchanged. This likely reflects the patient's history of gout. 2. Right wrist: Mild arthritis at the distal radioulnar joint and scaphoid trapezium trapezoid joint, not changed. 3. Left hand: Mild to moderate osteoarthritis at the first carpometacarpal joint, not changed. 4. Left wrist: Mild to moderate arthritis at the first carpometacarpal and distal radioulnar joints, with increase in size of the cyst in the distal ulna. 5. Right foot: No arthritis. 6. Left foot: No arthritis. Chronic posttraumatic changes in the distal tibia consistent with old fracture again demonstrated. This report was electronically signed by DIMAS RAINES MD on 08/03/2021 3:17 PM . Narrative 08/03/2021 3:17 PM PRIMARY TEACHING ASSISTANT Exam: 1.XR HAND RIGHT 3VW 2.XR FOOT LEFT 3VW 3.XR FOOT RIGHT 3VW 4.XR WRIST LEFT 3VW 5.XR WRIST RIGHT 3VW 6.XR HAND LEFT 3VW History: M25.50: Arthralgia, unspecified joint 61 year oldfemalewith OA, polyarthralgia, gout Comparison: Right and left hand and foot radiographs dated 05/24/2019. Findings: Right hand: No fracture or dislocation is present. There is mild to moderate narrowing of the third metacarpophalangeal joint space with small osteophytes. There is a small cortical defect in the base of the third finger proximal phalanx consistent with a chronic erosion, not changed. The other metacarpophalangeal joint spaces are normal. There is minimal degenerative change at the second finger distal interphalangeal joint with a small ossicle or osteophyte. Bone density is normal. The soft tissues are normal. Right wrist: No fracture or dislocation is present. Ulnar variance is +3 mm. There is cystic change in the proximal aspect of the lunate. These findings suggest ulnar-lunate impaction. There is mild osteoarthritis of the distal radioulnar joint with osteophytes. There is moderate narrowing of the nvxmsfzx-gdmimznip-psfgrgaqe joint space. No erosions are seen. The bones are mildly osteopenic. The soft tissues are normal. Left hand: No fracture or dislocation is present. The metacarpophalangeal and interphalangeal joint spaces are normal. Small calcifications are seen adjacent to the second and third finger distal interphalangeal joints. No erosions are present. There is mild to moderate osteoarthritis the first carpometacarpal joint. No erosions are seen. The soft tissues are normal. Bone density is normal. Left wrist: No fracture or dislocation is present. Ulnar variance is +3 mm. There is a subchondral cyst in the distal ulna measuring 8mm, previously 5 mm. There are also small subchondral cysts in the proximal aspect of the lunate. These findings can be seen with ulnar-lunate impaction. No definite erosions. Osteophytes are present at the distal radioulnar joint. The bones are slightly osteopenic. The soft tissues are normal. Right foot: No fracture or dislocation is present. The joint spaces are normal. No erosions are seen. Bone density is normal. The soft tissues are normal. A small plantar calcaneal spur is visible. Left foot: No acute fracture or dislocation is present. There is a chronic healed fracture distal tibia. The joint spaces are normal. No erosions are seen. Bone density is normal. The soft tissues are normal. Procedure Note Dimas Raines MD - 08/03/2021 Exam: 1.XR HAND RIGHT 3VW 2.XR FOOT LEFT 3VW 3.XR FOOT RIGHT 3VW 4.XR WRIST LEFT 3VW 5.XR WRIST RIGHT 3VW 6.XR HAND LEFT 3VW History: M25.50: Arthralgia, unspecified joint 61 year oldfemalewith OA, polyarthralgia, gout Comparison: Right and left hand and foot radiographs dated 05/24/2019. Findings: Right hand: No fracture or dislocation is present. There is mild to moderatenarrowing of the third metacarpophalangeal joint space with small osteophytes.There is a small cortical defect in the base of the third finger proximal phalanx consistent with a chronic erosion, not changed. The other metacarpophalangeal joint spaces are normal. There is minimaldegenerative change at the second finger distal interphalangeal joint with a small ossicle or osteophyte. Bone density is normal. The soft tissues are normal. Right wrist: No fracture or dislocation is present. Ulnar variance is +3 mm. There is cystic change in the proximal aspect of the lunate. These findingssuggest ulnar-lunate impaction. There is mild osteoarthritis of the distal radioulnar joint with osteophytes. There is moderate narrowing of the oaasgtaf-lwptkxdql-mxrugtsiv joint space. No erosions are seen. Thebones are mildly osteopenic. The soft tissues are normal. Left hand: No fracture or dislocation is present. The metacarpophalangeal and interphalangeal joint spaces are normal. Small calcifications are seen adjacent to the second and third finger distal interphalangeal joints.No erosions are present. There is mild to moderate osteoarthritis the first carpometacarpal joint. No erosions are seen. The soft tissues arenormal. Bone density is normal. Left wrist: No fracture or dislocation is present. Ulnar variance is +3 mm. There uzair subchondral cyst in the distal ulna measuring 8mm, previously 5 mm.There are also small subchondral cysts in the proximal aspect of the lunate. These findings can be seen with ulnar-lunate impaction. No definite erosions. Osteophytes are present at the distal radioulnar joint. The bones are slightly osteopenic. The soft tissues are normal. Right foot: No fracture or dislocation is present. The joint spaces are normal. No erosions are seen. Bone density is normal. The soft tissues arenormal. A small plantar calcaneal spur is visible. Left foot: No acute fracture or dislocation is present. There is a chronic healed fracture distal tibia. The joint spaces are normal. No erosions areseen. Bone density is normal. The soft tissues are normal. IMPRESSION: 1. Right hand: Mild arthritis of the third metacarpophalangeal jointwith a small chronic erosion which is unchanged. This likely reflects the patient's history of gout. 2. Right wrist: Mild arthritis at the distal radioulnar joint andscaphoid trapezium trapezoid joint, not changed. 3. Left hand: Mild to moderate osteoarthritis at the firstcarpometacarpal joint, not changed. 4. Left wrist: Mild to moderate arthritis at the first carpometacarpaland distal radioulnar joints, with increase in size of the cyst in thedistal ulna. 5. Right foot: No arthritis. 6. Left foot: No arthritis. Chronic posttraumatic changes in the distal tibia consistent with old fracture again demonstrated. This report was electronically signed by DIMAS RAINES MD on08/03/2021 3:17 PM . Mitchell Zamarripa MD DIAGNOSTIC IMAGING O RDERABLES * XR HAND LEFT 3VW OR MORE (08/03/2021 2:52 PM PRIMARY TEACHING ASSISTANT) Only the most recent of2 resultswithin the time period is included. Anatomical Region Laterality Modality Wrist / Hand Radiographic Kristyn ging 08/03/2021 2:57 PM PRIMARY TEACHING ASSISTANT Impressions 08/03/2021 3:17 PM PRIMARY TEACHING ASSISTANT IMPRESSION: 1. Right hand: Mild arthritis of the third metacarpophalangeal joint with a small chronic erosion which is unchanged. This likely reflects the patient's history of gout. 2. Right wrist: Mild arthritis at the distal radioulnar joint and scaphoid trapezium trapezoid joint, not changed. 3. Left hand: Mild to moderate osteoarthritis at the first carpometacarpal joint, not changed. 4. Left wrist: Mild to moderate arthritis at the first carpometacarpal and distal radioulnar joints, with increase in size of the cyst in the distal ulna. 5. Right foot: No arthritis. 6. Left foot: No arthritis. Chronic posttraumatic changes in the distal tibia consistent with old fracture again demonstrated. This report was electronically signed by DIMAS RAINES MD on 08/03/2021 3:17 PM . Narrative 08/03/2021 3:17 PM PRIMARY TEACHING ASSISTANT Exam: 1.XR HAND RIGHT 3VW 2.XR FOOT LEFT 3VW 3.XR FOOT RIGHT 3VW 4.XR WRIST LEFT 3VW 5.XR WRIST RIGHT 3VW 6.XR HAND LEFT 3VW History: M25.50: Arthralgia, unspecified joint 61 year oldfemalewith OA, polyarthralgia, gout Comparison: Right and left hand and foot radiographs dated 05/24/2019. Findings: Right hand: No fracture or dislocation is present. There is mild to moderate narrowing of the third metacarpophalangeal joint space with small osteophytes. There is a small cortical defect in the base of the third finger proximal phalanx consistent with a chronic erosion, not changed. The other metacarpophalangeal joint spaces are normal. There is minimal degenerative change at the second finger distal interphalangeal joint with a small ossicle or osteophyte. Bone density is normal. The soft tissues are normal. Right wrist: No fracture or dislocation is present. Ulnar variance is +3 mm. There is cystic change in the proximal aspect of the lunate. These findings suggest ulnar-lunate impaction. There is mild osteoarthritis of the distal radioulnar joint with osteophytes. There is moderate narrowing of the aobjjqve-txutcnutp-epthpyjrl joint space. No erosions are seen. The bones are mildly osteopenic. The soft tissues are normal. Left hand: No fracture or dislocation is present. The metacarpophalangeal and interphalangeal joint spaces are normal. Small calcifications are seen adjacent to the second and third finger distal interphalangeal joints. No erosions are present. There is mild to moderate osteoarthritis the first carpometacarpal joint. No erosions are seen. The soft tissues are normal. Bone density is normal. Left wrist: No fracture or dislocation is present. Ulnar variance is +3 mm. There is a subchondral cyst in the distal ulna measuring 8mm, previously 5 mm. There are also small subchondral cysts in the proximal aspect of the lunate. These findings can be seen with ulnar-lunate impaction. No definite erosions. Osteophytes are present at the distal radioulnar joint. The bones are slightly osteopenic. The soft tissues are normal. Right foot: No fracture or dislocation is present. The joint spaces are normal. No erosions are seen. Bone density is normal. The soft tissues are normal. A small plantar calcaneal spur is visible. Left foot: No acute fracture or dislocation is present. There is a chronic healed fracture distal tibia. The joint spaces are normal. No erosions are seen. Bone density is normal. The soft tissues are normal. Procedure Note Dimas Raines MD - 08/03/2021 Exam: 1.XR HAND RIGHT 3VW 2.XR FOOT LEFT 3VW 3.XR FOOT RIGHT 3VW 4.XR WRIST LEFT 3VW 5.XR WRIST RIGHT 3VW 6.XR HAND LEFT 3VW History: M25.50: Arthralgia, unspecified joint 61 year oldfemalewith OA, polyarthralgia, gout Comparison: Right and left hand and foot radiographs dated 05/24/2019. Findings: Right hand: No fracture or dislocation is present. There is mild to moderatenarrowing of the third metacarpophalangeal joint space with small osteophytes.There is a small cortical defect in the base of the third finger proximal phalanx consistent with a chronic erosion, not changed. The other metacarpophalangeal joint spaces are normal. There is minimaldegenerative change at the second finger distal interphalangeal joint with a small ossicle or osteophyte. Bone density is normal. The soft tissues are normal. Right wrist: No fracture or dislocation is present. Ulnar variance is +3 mm. There is cystic change in the proximal aspect of the lunate. These findingssuggest ulnar-lunate impaction. There is mild osteoarthritis of the distal radioulnar joint with osteophytes. There is moderate narrowing of the lqvwqmqb-etaegrqjx-rsyqdytub joint space. No erosions are seen. Thebones are mildly osteopenic. The soft tissues are normal. Left hand: No fracture or dislocation is present. The metacarpophalangeal and interphalangeal joint spaces are normal. Small calcifications are seen adjacent to the second and third finger distal interphalangeal joints.No erosions are present. There is mild to moderate osteoarthritis the first carpometacarpal joint. No erosions are seen. The soft tissues arenormal. Bone density is normal. Left wrist: No fracture or dislocation is present. Ulnar variance is +3 mm. There uzair subchondral cyst in the distal ulna measuring 8mm, previously 5 mm.There are also small subchondral cysts in the proximal aspect of the lunate. These findings can be seen with ulnar-lunate impaction. No definite erosions. Osteophytes are present at the distal radioulnar joint. The bones are slightly osteopenic. The soft tissues are normal. Right foot: No fracture or dislocation is present. The joint spaces are normal. No erosions are seen. Bone density is normal. The soft tissues arenormal. A small plantar calcaneal spur is visible. Left foot: No acute fracture or dislocation is present. There is a chronic healed fracture distal tibia. The joint spaces are normal. No erosions areseen. Bone density is normal. The soft tissues are normal. IMPRESSION: 1. Right hand: Mild arthritis of the third metacarpophalangeal jointwith a small chronic erosion which is unchanged. This likely reflects the patient's history of gout. 2. Right wrist: Mild arthritis at the distal radioulnar joint andscaphoid trapezium trapezoid joint, not changed. 3. Left hand: Mild to moderate osteoarthritis at the firstcarpometacarpal joint, not changed. 4. Left wrist: Mild to moderate arthritis at the first carpometacarpaland distal radioulnar joints, with increase in size of the cyst in thedistal ulna. 5. Right foot: No arthritis. 6. Left foot: No arthritis. Chronic posttraumatic changes in the distal tibia consistent with old fracture again demonstrated. This report was electronically signed by DIMAS RAINES MD on08/03/2021 3:17 PM . Mitchell Zamarripa MD DIAGNOSTIC IMAGING O RDERABLES * XR WRIST RIGHT 3VW OR MORE (08/03/2021 2:52 PM PRIMARY TEACHING ASSISTANT) Anatomical Region Laterality Modality Wrist / Hand Radiographic Kristyn ging 08/03/2021 2:57 PM PRIMARY TEACHING ASSISTANT Impressions 08/03/2021 3:17 PM PRIMARY TEACHING ASSISTANT IMPRESSION: 1. Right hand: Mild arthritis of the third metacarpophalangeal joint with a small chronic erosion which is unchanged. This likely reflects the patient's history of gout. 2. Right wrist: Mild arthritis at the distal radioulnar joint and scaphoid trapezium trapezoid joint, not changed. 3. Left hand: Mild to moderate osteoarthritis at the first carpometacarpal joint, not changed. 4. Left wrist: Mild to moderate arthritis at the first carpometacarpal and distal radioulnar joints, with increase in size of the cyst in the distal ulna. 5. Right foot: No arthritis. 6. Left foot: No arthritis. Chronic posttraumatic changes in the distal tibia consistent with old fracture again demonstrated. This report was electronically signed by DIMAS RAINES MD on 08/03/2021 3:17 PM . Narrative 08/03/2021 3:17 PM PRIMARY TEACHING ASSISTANT Exam: 1.XR HAND RIGHT 3VW 2.XR FOOT LEFT 3VW 3.XR FOOT RIGHT 3VW 4.XR WRIST LEFT 3VW 5.XR WRIST RIGHT 3VW 6.XR HAND LEFT 3VW History: M25.50: Arthralgia, unspecified joint 61 year oldfemalewith OA, polyarthralgia, gout Comparison: Right and left hand and foot radiographs dated 05/24/2019. Findings: Right hand: No fracture or dislocation is present. There is mild to moderate narrowing of the third metacarpophalangeal joint space with small osteophytes. There is a small cortical defect in the base of the third finger proximal phalanx consistent with a chronic erosion, not changed. The other metacarpophalangeal joint spaces are normal. There is minimal degenerative change at the second finger distal interphalangeal joint with a small ossicle or osteophyte. Bone density is normal. The soft tissues are normal. Right wrist: No fracture or dislocation is present. Ulnar variance is +3 mm. There is cystic change in the proximal aspect of the lunate. These findings suggest ulnar-lunate impaction. There is mild osteoarthritis of the distal radioulnar joint with osteophytes. There is moderate narrowing of the tjjtcrnb-nyjweaeod-lfdkxcbxm joint space. No erosions are seen. The bones are mildly osteopenic. The soft tissues are normal. Left hand: No fracture or dislocation is present. The metacarpophalangeal and interphalangeal joint spaces are normal. Small calcifications are seen adjacent to the second and third finger distal interphalangeal joints. No erosions are present. There is mild to moderate osteoarthritis the first carpometacarpal joint. No erosions are seen. The soft tissues are normal. Bone density is normal. Left wrist: No fracture or dislocation is present. Ulnar variance is +3 mm. There is a subchondral cyst in the distal ulna measuring 8mm, previously 5 mm. There are also small subchondral cysts in the proximal aspect of the lunate. These findings can be seen with ulnar-lunate impaction. No definite erosions. Osteophytes are present at the distal radioulnar joint. The bones are slightly osteopenic. The soft tissues are normal. Right foot: No fracture or dislocation is present. The joint spaces are normal. No erosions are seen. Bone density is normal. The soft tissues are normal. A small plantar calcaneal spur is visible. Left foot: No acute fracture or dislocation is present. There is a chronic healed fracture distal tibia. The joint spaces are normal. No erosions are seen. Bone density is normal. The soft tissues are normal. Procedure Note Dimas Raines MD - 08/03/2021 Exam: 1.XR HAND RIGHT 3VW 2.XR FOOT LEFT 3VW 3.XR FOOT RIGHT 3VW 4.XR WRIST LEFT 3VW 5.XR WRIST RIGHT 3VW 6.XR HAND LEFT 3VW History: M25.50: Arthralgia, unspecified joint 61 year oldfemalewith OA, polyarthralgia, gout Comparison: Right and left hand and foot radiographs dated 05/24/2019. Findings: Right hand: No fracture or dislocation is present. There is mild to moderatenarrowing of the third metacarpophalangeal joint space with small osteophytes.There is a small cortical defect in the base of the third finger proximal phalanx consistent with a chronic erosion, not changed. The other metacarpophalangeal joint spaces are normal. There is minimaldegenerative change at the second finger distal interphalangeal joint with a small ossicle or osteophyte. Bone density is normal. The soft tissues are normal. Right wrist: No fracture or dislocation is present. Ulnar variance is +3 mm. There is cystic change in the proximal aspect of the lunate. These findingssuggest ulnar-lunate impaction. There is mild osteoarthritis of the distal radioulnar joint with osteophytes. There is moderate narrowing of the stldljmz-qiegsbbwn-ghrqbwnnz joint space. No erosions are seen. Thebones are mildly osteopenic. The soft tissues are normal. Left hand: No fracture or dislocation is present. The metacarpophalangeal and interphalangeal joint spaces are normal. Small calcifications are seen adjacent to the second and third finger distal interphalangeal joints.No erosions are present. There is mild to moderate osteoarthritis the first carpometacarpal joint. No erosions are seen. The soft tissues arenormal. Bone density is normal. Left wrist: No fracture or dislocation is present. Ulnar variance is +3 mm. There uzair subchondral cyst in the distal ulna measuring 8mm, previously 5 mm.There are also small subchondral cysts in the proximal aspect of the lunate. These findings can be seen with ulnar-lunate impaction. No definite erosions. Osteophytes are present at the distal radioulnar joint. The bones are slightly osteopenic. The soft tissues are normal. Right foot: No fracture or dislocation is present. The joint spaces are normal. No erosions are seen. Bone density is normal. The soft tissues arenormal. A small plantar calcaneal spur is visible. Left foot: No acute fracture or dislocation is present. There is a chronic healed fracture distal tibia. The joint spaces are normal. No erosions areseen. Bone density is normal. The soft tissues are normal. IMPRESSION: 1. Right hand: Mild arthritis of the third metacarpophalangeal jointwith a small chronic erosion which is unchanged. This likely reflects the patient's history of gout. 2. Right wrist: Mild arthritis at the distal radioulnar joint andscaphoid trapezium trapezoid joint, not changed. 3. Left hand: Mild to moderate osteoarthritis at the firstcarpometacarpal joint, not changed. 4. Left wrist: Mild to moderate arthritis at the first carpometacarpaland distal radioulnar joints, with increase in size of the cyst in thedistal ulna. 5. Right foot: No arthritis. 6. Left foot: No arthritis. Chronic posttraumatic changes in the distal tibia consistent with old fracture again demonstrated. This report was electronically signed by DIMAS RAINES MD on08/03/2021 3:17 PM . Mitchell Zamarripa MD DIAGNOSTIC IMAGING O RDERABLES * XR WRIST LEFT 3VW OR MORE (08/03/2021 2:52 PM PRIMARY TEACHING ASSISTANT) Anatomical Region Laterality Modality Wrist / Hand Radiographic Kristyn ging 08/03/2021 2:57 PM PRIMARY TEACHING ASSISTANT Impressions 08/03/2021 3:17 PM PRIMARY TEACHING ASSISTANT IMPRESSION: 1. Right hand: Mild arthritis of the third metacarpophalangeal joint with a small chronic erosion which is unchanged. This likely reflects the patient's history of gout. 2. Right wrist: Mild arthritis at the distal radioulnar joint and scaphoid trapezium trapezoid joint, not changed. 3. Left hand: Mild to moderate osteoarthritis at the first carpometacarpal joint, not changed. 4. Left wrist: Mild to moderate arthritis at the first carpometacarpal and distal radioulnar joints, with increase in size of the cyst in the distal ulna. 5. Right foot: No arthritis. 6. Left foot: No arthritis. Chronic posttraumatic changes in the distal tibia consistent with old fracture again demonstrated. This report was electronically signed by DIMAS RAINES MD on 08/03/2021 3:17 PM . Narrative 08/03/2021 3:17 PM PRIMARY TEACHING ASSISTANT Exam: 1.XR HAND RIGHT 3VW 2.XR FOOT LEFT 3VW 3.XR FOOT RIGHT 3VW 4.XR WRIST LEFT 3VW 5.XR WRIST RIGHT 3VW 6.XR HAND LEFT 3VW History: M25.50: Arthralgia, unspecified joint 61 year oldfemalewith OA, polyarthralgia, gout Comparison: Right and left hand and foot radiographs dated 05/24/2019. Findings: Right hand: No fracture or dislocation is present. There is mild to moderate narrowing of the third metacarpophalangeal joint space with small osteophytes. There is a small cortical defect in the base of the third finger proximal phalanx consistent with a chronic erosion, not changed. The other metacarpophalangeal joint spaces are normal. There is minimal degenerative change at the second finger distal interphalangeal joint with a small ossicle or osteophyte. Bone density is normal. The soft tissues are normal. Right wrist: No fracture or dislocation is present. Ulnar variance is +3 mm. There is cystic change in the proximal aspect of the lunate. These findings suggest ulnar-lunate impaction. There is mild osteoarthritis of the distal radioulnar joint with osteophytes. There is moderate narrowing of the gwepzraf-oppmapjdr-qyoxfglas joint space. No erosions are seen. The bones are mildly osteopenic. The soft tissues are normal. Left hand: No fracture or dislocation is present. The metacarpophalangeal and interphalangeal joint spaces are normal. Small calcifications are seen adjacent to the second and third finger distal interphalangeal joints. No erosions are present. There is mild to moderate osteoarthritis the first carpometacarpal joint. No erosions are seen. The soft tissues are normal. Bone density is normal. Left wrist: No fracture or dislocation is present. Ulnar variance is +3 mm. There is a subchondral cyst in the distal ulna measuring 8mm, previously 5 mm. There are also small subchondral cysts in the proximal aspect of the lunate. These findings can be seen with ulnar-lunate impaction. No definite erosions. Osteophytes are present at the distal radioulnar joint. The bones are slightly osteopenic. The soft tissues are normal. Right foot: No fracture or dislocation is present. The joint spaces are normal. No erosions are seen. Bone density is normal. The soft tissues are normal. A small plantar calcaneal spur is visible. Left foot: No acute fracture or dislocation is present. There is a chronic healed fracture distal tibia. The joint spaces are normal. No erosions are seen. Bone density is normal. The soft tissues are normal. Procedure Note Dimas Raines MD - 08/03/2021 Exam: 1.XR HAND RIGHT 3VW 2.XR FOOT LEFT 3VW 3.XR FOOT RIGHT 3VW 4.XR WRIST LEFT 3VW 5.XR WRIST RIGHT 3VW 6.XR HAND LEFT 3VW History: M25.50: Arthralgia, unspecified joint 61 year oldfemalewith OA, polyarthralgia, gout Comparison: Right and left hand and foot radiographs dated 05/24/2019. Findings: Right hand: No fracture or dislocation is present. There is mild to moderatenarrowing of the third metacarpophalangeal joint space with small osteophytes.There is a small cortical defect in the base of the third finger proximal phalanx consistent with a chronic erosion, not changed. The other metacarpophalangeal joint spaces are normal. There is minimaldegenerative change at the second finger distal interphalangeal joint with a small ossicle or osteophyte. Bone density is normal. The soft tissues are normal. Right wrist: No fracture or dislocation is present. Ulnar variance is +3 mm. There is cystic change in the proximal aspect of the lunate. These findingssuggest ulnar-lunate impaction. There is mild osteoarthritis of the distal radioulnar joint with osteophytes. There is moderate narrowing of the thsqokoi-ngqqkogsm-xorkahjcv joint space. No erosions are seen. Thebones are mildly osteopenic. The soft tissues are normal. Left hand: No fracture or dislocation is present. The metacarpophalangeal and interphalangeal joint spaces are normal. Small calcifications are seen adjacent to the second and third finger distal interphalangeal joints.No erosions are present. There is mild to moderate osteoarthritis the first carpometacarpal joint. No erosions are seen. The soft tissues arenormal. Bone density is normal. Left wrist: No fracture or dislocation is present. Ulnar variance is +3 mm. There uzair subchondral cyst in the distal ulna measuring 8mm, previously 5 mm.There are also small subchondral cysts in the proximal aspect of the lunate. These findings can be seen with ulnar-lunate impaction. No definite erosions. Osteophytes are present at the distal radioulnar joint. The bones are slightly osteopenic. The soft tissues are normal. Right foot: No fracture or dislocation is present. The joint spaces are normal. No erosions are seen. Bone density is normal. The soft tissues arenormal. A small plantar calcaneal spur is visible. Left foot: No acute fracture or dislocation is present. There is a chronic healed fracture distal tibia. The joint spaces are normal. No erosions areseen. Bone density is normal. The soft tissues are normal. IMPRESSION: 1. Right hand: Mild arthritis of the third metacarpophalangeal jointwith a small chronic erosion which is unchanged. This likely reflects the patient's history of gout. 2. Right wrist: Mild arthritis at the distal radioulnar joint andscaphoid trapezium trapezoid joint, not changed. 3. Left hand: Mild to moderate osteoarthritis at the firstcarpometacarpal joint, not changed. 4. Left wrist: Mild to moderate arthritis at the first carpometacarpaland distal radioulnar joints, with increase in size of the cyst in thedistal ulna. 5. Right foot: No arthritis. 6. Left foot: No arthritis. Chronic posttraumatic changes in the distal tibia consistent with old fracture again demonstrated. This report was electronically signed by DIMAS RAINES MD on08/03/2021 3:17 PM . Mitchell Zamarripa MD DIAGNOSTIC IMAGING O RDERABLES * MONTIEL (SM)+SCALE MANAGER ANTIBODY PANEL (03/31/2021 9:59 AM CDT) SM Antibody <1.0 NEG <1.0 NEG AI [facility] SM/SCALE MANAGER Antibody <1.0 NEG <1.0 NEG AI [facility] Comment: Test Performed at: [facility] [address] [place] [address] LUISA LAWRENCE DO,MPH 03/31/2021 9:59 AM CDT 03/31/2021 9:59 AM CDT Mitchell Zamarripa MD LAB - SEROLOGY ORDER XOCHITL Performing Organization Address [facility] Co de Phone Number [facility] [address] [place] [address] * CENTROMERE B ANTIBODIES (03/31/2021 9:59 AM CDT) Centromere B Antibody <1.0 NEG <1.0 NEG AI [facility] Comment: Test Performed at: [facility] [address] [place] [address] LUISA LAWRENCE DO,MPH 03/31/2021 9:59 AM CDT 03/31/2021 9:59 AM CDT Mitchell Zamarripa MD LAB - SEROLOGY ORDER XOCHITL Performing Organization Address [facility] Co de Phone Number [facility] [address] [place] [address] * CHROMATIN ANTIBODY (03/31/2021 9:59 AM CDT) Chromatin Nucleosomal Antibody <1.0 NEG <1.0 NEG AI [facility] Comment: Test Performed at: [facility] [place] [address] [facility] [place] [address] LUISA LAWRENCE DO,MPH 03/31/2021 9:59 AM CDT 03/31/2021 9:59 AM CDT Mitchell Zamarripa MD LAB - SEROLOGY ORDER XOCHITL Performing Organization Address [facility] Co de Phone Number [facility] [address] [place] [address] * RNA POLYMERASE III ANTIBODY IGG (03/31/2021 9:59 AM CDT) RNA Polymerase 3 Antibody <20 <20 Units [facility] Comment: Test Performed at: [facility] [address] [place] [address] JONATHAN LUQUE MD,PHD,JAQUELINE 03/31/2021 9:59 AM CDT 03/31/2021 9:59 AM CDT Mitchell Zamarripa MD LAB - SEROLOGY ORDER XOCHITL Performing Organization Address [facility] Co de Phone Number [facility] [address] [place] [address] * PM/SCL-100 ANTIBODY IGG (03/31/2021 9:59 AM CDT) PM Scl 100 AB <20 <20 Units [facility] Comment: Negative: <20 Weak Positive: 20 - 39 Moderate Positive: 40 - 80 Strong Positive: >80 Comments: This test was developed and its performance characteristics determined by [facility]. It has not been cleared or approved by the Food and Drug Administration. Test Performed at: [facility] [address] [place] [id number] NATALYA PEREZ MD 03/31/2021 9:59 AM CDT 03/31/2021 9:59 AM CDT Mitchell Zamarripa MD LAB - SEROLOGY ORDER XOCHITL Performing Organization Address [facility] Co de Phone Number [facility] [address] [place] [address] * HISTONE ANTIBODY (03/31/2021 9:59 AM CDT) [facility] Histone Antibodies <1.0 U [facility] Comment: Value Expanation of Results <1.0 Negative 1.0-1.5 Weak Positive 1.6-2.5 Moderate Positive >2.5 Strong Positive Test Performed at: [facility] [address] [place] [address] JONATHAN LUQUE MD,PHD,JAQUELINE 03/31/2021 9:59 AM CDT 03/31/2021 9:59 AM CDT Mitchell Zamarripa MD LAB - CHEMISTRY INGRID DE GUZMAN Performing Organization Address [facility] Co de Phone Number [facility] [address] [place] [address] * SS-B (SJOGREN'S) ANTIBODY (03/31/2021 9:59 AM CDT) Only the most recent of2 resultswithin the time period is included. Sjogren's Antibodies (SSB) <1.0 NEG <1.0 NEG AI [facility] Comment: Test Performed at: [facility] [address] [place] [address] LUISA LAWRENCE DO,MPH 03/31/2021 9:59 AM CDT 03/31/2021 9:59 AM CDT Mitchell Zamarripa MD LAB - CHEMISTRY NEW BLAINELeidy [facility]ENTER[facility] Performing Organization Address [facility] [place] [address] * SS-A (SJOGREN'S) ANTIBODY (03/31/2021 9:59 AM CDT) Only the most recent of2 resultswithin the time period is included. Sjogren's Antibodies (SSA) <1.0 NEG <1.0 NEG AI [facility] Comment: Test Performed at: [facility] [address] LUISA LAWRENCE DO,MPH 03/31/2021 9:59 AM CDT 03/31/2021 9:59 AM CDT Mitchell Zamarripa MD LAB - CHEMISTRY INGRID DE GUZMAN Performing Organization Address [facility] Co de Phone Number [facility] [phone] [place] [address] * SCLERODERMA 70 (SCL) ANTIBODY (03/31/2021 9:59 AM CDT) Only the most recent of2 resultswithin the time period is included. SCL-70 Antibody <1.0 NEG <1.0 NEG AI [facility] Comment: Test Performed at: [facility] [address] [facility] [address] LUISA LAWRENCE DO,MPH 03/31/2021 9:59 AM CDT 03/31/2021 9:59 AM CDT Mitchell Zamarripa MD LAB - CHEMISTRY INGRID DE GUZMAN Performing Organization Address [facility] Co de Phone Number [facility] [phone] [place] [address] * DNA ANTIBODY DOUBLE STRANDED (03/31/2021 9:59 AM CDT) dsDNA Antibody <1 IU/mL [facility] Comment: IU/mL Interpretation < or = 4 Negative 5-9 Indeterminate > or = 10 Positive Test Performed at: [employer], [employer] [address] LUISA LAWRENCE DO,MPH 03/31/2021 9:59 AM CDT 03/31/2021 9:59 AM CDT Mitchell Zamarripa MD LAB - HEMATOLOGY SANAZ ORANTES Performing Organization Address [facility] Co de Phone Number [facility] [phone] [place] [address] * MARTHA-1 ANTIBODY (03/31/2021 9:59 AM CDT) Martha-1 Antibody <1.0 NEG <1.0 NEG AI [facility] Comment: Test Performed at: [employer], [employer] [address] LUISA LAWRENCE DO,MPH 03/31/2021 9:59 AM CDT 03/31/2021 9:59 AM CDT Mitchell Zamarripa MD LAB - CHEMISTRY INGRID DE GUZMAN Performing Organization Address [facility] Co de Phone Number [place] [phone] * ALDOLASE (03/31/2021 9:59 AM CDT) Only the most recent of3 resultswithin the time period is included. Aldolase 5.2 < OR = 8.1 U/L [facility] Comment: Test Performed at: [facility] [address] [employer], [place] [address] LUISA LAWRENCE DO,MPH 03/31/2021 9:59 AM CDT 03/31/2021 9:59 AM CDT Mitchell Zamarripa MD LAB - CHEMISTRY INGRID DE GUZMAN Performing Organization Address [facility] Co de Phone Number [facility] [phone] [place] [address] * LDH BLOOD (03/31/2021 9:59 AM CDT) Only the most recent of3 resultswithin the time period is included. LD-Total 181 120 - 250 U/L [facility] Comment: Test Performed at: [employer] [address] LUISA LAWRENCE DO,MPH 03/31/2021 9:59 AM CDT 03/31/2021 9:59 AM CDT Mitchell Zamarripa MD LAB - CHEMISTRY INGRID DE GUZMAN Performing Organization Address [facility] Co de Phone Number [facility] [phone] [place] [address] * CK BLOOD (03/31/2021 9:59 AM CDT) Only the most recent of3 resultswithin the time period is included. CK 68 29 - 143 U/L [facility] Comment: Test Performed at: [employer] [address] LUISA LAWRENCE DO,MPH 03/31/2021 9:59 AM CDT 03/31/2021 9:59 AM CDT Mitchell Zamarripa MD LAB - CHEMISTRY INGRID DE GUZMAN Performing Organization Address [facility] Co de Phone Number [facility] [address] [place] [phone] * CULTURE URINE REFLEXED I (12/21/2019 8:29 AM CDT) Reflexive Urine Culture NO CULTURE INDICATED [facility] Comment: Test Performed at: [employer], [employer] [address] LUISA LAWRENCE DO,MPH 12/21/2019 8:29 AM CDT 12/21/2019 8:31 AM CDT Mitchell Zamarripa MD LAB - MICROBIOLOGY O RDERABLES Performing Organization Address [facility] de Phone Number [facility] [address] [place] [address] * (ABNORMAL) URINALYSIS W/MICROSCOPIC REFLEX TO CULTURE (12/21/2019 8:29 AM CDT) Color UA YELLOW YELLOW [facility] Appearance CLOUDY(A) CLEAR [facility] Specific [place] UA 1.016 1.001 - 1.035 [facility] pH UA 6.0 5.0 - 8.0 [facility] Glucose UA NEGATIVE NEGATIVE [facility] Bilirubin UA NEGATIVE NEGATIVE [facility] Ketone UA TRACE(A) NEGATIVE [facility] Blood UA NEGATIVE NEGATIVE [facility] Protein UA NEGATIVE NEGATIVE [facility] Nitrite NEGATIVE NEGATIVE [facility] Leukocyte Esterase NEGATIVE NEGATIVE [facility] WBC UA 0-5 < OR = 5 /HPF [facility] RBC UA NONE SEEN < OR = 2 /HPF [facility] Epithelial Cell UA 0-5 < OR = 5 /HPF [facility] Bacteria UA NONE SEEN NONE SEEN /HPF [facility] Hyaline Casts NONE SEEN NONE SEEN /LPF [facility] Comments FEW MUCOUS THREADS [facility] Comment: Test Performed at: [employer] [place] [address] LUISA LAWRENCE DO,MPH Reflexive Urine Culture NO CULTURE INDICATED [facility] Comment: REPORT COMMENT: FASTING:YES Test Performed at: [place] [address] LUISA LAWRENCE DO,MPH Urine URINE SPECIMEN OBTAINED BY CLEAN CATCH PROCEDURE / Unknown 12/21/2019 8:29 AM CDT 12/21/2019 8:31 AM CDT Mitchell Zamarripa MD LAB - URINALYSIS ORD ERABLES Performing Organization Address [facility] Co de Phone Number [facility] [address] [place] [address] * (ABNORMAL) TY BLOOD SINGLE PATTERN (07/23/2019 2:21 PM PRIMARY TEACHING ASSISTANT) TY Pattern Speckled( A) 07/25/2019 5:39 PM PRIMARY TEACHING ASSISTANT [facility] ([facility]) TY Titer 1:80(A) 07/25/2019 5:39 PM PRIMARY TEACHING ASSISTANT [facility] ([facility]) Comment: Performed by [facility], [address] [place] [address],[place] [address] [email or web address], Barry Carmona MD, Lab. Director Blood BLOOD SPECIMEN / Unknown Lab Venipuncture / Unknown 07/23/2019 2:21 PM PRIMARY TEACHING ASSISTANT 07/23/2019 3:13 PM PRIMARY TEACHING ASSISTANT Janes Smith MD LAB - CHEMISTRY INGRID DE GUZMAN [facility] [address] [facility]) [address] [place] [address], [facility] * (ABNORMAL) SCLERODERMA COMPREHENSIVE AB PANEL (07/23/2019 2:21 PM PRIMARY TEACHING ASSISTANT) TY HEp-2 IgG Detected(H ) <1:80 07/26/2019 7:52 PM PRIMARY TEACHING ASSISTANT [facility] [address] [place] ([facility]) TY Interpretive Comment See Note 07/26/2019 7:52 PM PRIMARY TEACHING ASSISTANT [facility] [address] ([facility]) Comment: Speckled Pattern Clinical associations: SLE, SSc, SjS, DM, PM, MCTD, UCTD. May also be found in healthy individuals Main autoantibodies: Anti-SSA-52 (Ro52), anti-SSA-60 (Ro60), anti-SS-B/LA, anti-Kareem-1 (anti-Scl-70), Montiel, anti-U1-SCALE MANAGER, anti-U2-SCALE MANAGER, anti-Mi-2, anti-TIF1g, anti-Ku, anti-RNA polymerase, anti-DFS70/LEDGF-P75 Clinical Relevance Antisynthetase syndrome (ARS), chronic active hepatitis (CAH), inflammatory myopathies (IM) [dermatomyositis (DM), polymyositis (PM), necrotizing autoimmune myopathy (NAM)], interstitial lung disease (ILD), juvenile idiopathic arthritis (SCOOBY), mixed connective tissue disease (MCTD), primary biliary cholangitis (PBC), rheumatoid arthritis (RA), systemic autoimmune rheumatic diseases (SARD), Sjogren syndrome (SjS), systemic lupus erythematosus (SLE), systemic sclerosis (SSc), undifferentiated connective tissue disease (UCTD). INTERPRETIVE INFORMATION: TY Interpretive Comment Presence of antinuclear antibodies (TY) is a hallmark feature of systemic autoimmune rheumatic diseases (SARD). TY lacks diagnostic specificity and is associated with a variety of diseases (cancers, autoimmune, infectious, and inflammatory conditions) and may also occur in healthy individuals in varying prevalence. The lack of diagnostic specificity requires confirmation of positive TY by more-specific serologic tests. TY (nuclear reactivity) positive patterns reported include centromere, homogeneous, nuclear dots, nucleolar, or speckled. Cytoplasmic pattern is reported as TY negative. All patterns are reported to endpoint titers (1:2560). Reported patterns may help guide differential diagnosis, although they may not be specific for individual antibodies or diseases. Negative results do not necessarily rule out SARD. SCL-70 Antibody 2 0 - 40 AU/mL 07/26/2019 7:52 PM [facility] ([facility]) Comment: INTERPRETIVE INFORMATION: Scleroderma (Scl-70) (LAUREN) Ab, IgG 29 AU/mL or Less ............. Negative 30 - 40 AU/mL ................ Equivocal 41 AU/mL or Greater .......... Positive The presence of Scl-70 antibodies (also referred to as topoisomerase I, kareem-I or COLTON) is considered diagnostic for systemic sclerosis (SSc). Scl-70 antibodies alone are detected in about 20 percent of SSc patients and are associated with the diffuse form of the disease, which may include specific organ involvement and poor prognosis. Scl-70 antibodies have also been reported in a varying percentage of patients with systemic lupus erythematosus (SLE). Scl-70 (kareem-1) is a DNA binding protein and anti-DNA/DNA complexes in the sera of SLE patients may bind to kareem-I, leading to a false-positive result. The presence of Scl-70 antibody in sera may also be due to contamination of recombinant Scl-70 with DNA derived from cellular material used in immunoassays. Strong clinical correlation is recommended if both Scl-70 and dsDNA antibodies are detected. Negative results do not necessarily rule out the presence of SSc. If clinical suspicion remains, consider further testing for centromere, RNA polymerase III and U3-SCALE MANAGER, PM/Scl, or Th/To antibodies. RNA Polymerase 3 Antibody IgG 5 0 - 19 Units 07/26/2019 7:52 PM [facility] ([facility]) Comment: INTERPRETIVE INFORMATION: RNA Polymerase III Antibody, IgG 19 Units or less ......Negative 20 - 39 Units .........Weak Positive 40 - 80 Units .........Moderate Positive 81 Units or greater ...Strong Positive The presence of RNA polymerase III IgG antibody, when considered in conjunction with other laboratory and clinical findings, is an aid in the diagnosis of systemic sclerosis (SSc) with increased incidence of skin involvement and renal crisis with the diffuse cutaneous form of SSc. RNA polymerase III IgG antibody occur in about 11-23 percent of SSc patients, and typically in the absence of anti-centromere and anti-Scl-70 antibodies. A negative result indicates no detectable IgG antibodies to the dominant antigen of RNA polymerase III and does not rule out the possibility of SSc. False-positive results may also occur due to non-specific binding of immune complexes. Strong clinical correlation is recommended. If clinical suspicion remains, consider additional testing for other antibodies associated with SSc, including centromere, Scl-70, U3-SCALE MANAGER, PM/Scl, or Th/To. Montiel/SCALE MANAGER (LAUREN) Antibody IgG 1 0 - 40 AU/mL 07/26/2019 7:52 PM [facility] ([facility]) Comment: INTERPRETIVE INFORMATION: Montiel/SCALE MANAGER (LAUREN) Antibody, IgG 29 AU/mL or Less ............. Negative 30 - 40 AU/mL ................ Equivocal 41 AU/mL or Greater .......... Positive Montiel/SCALE MANAGER antibodies are frequently seen in patients with mixed connective tissue disease (MCTD) and are also associated with other systemic autoimmune rheumatic diseases (SARDs) such as systemic lupus erythematosus (SLE), systemic sclerosis, and myositis. Antibodies targeting the Montiel/SCALE MANAGER antigenic complex also recognize Montiel antigens, therefore, the Montiel antibody response must be considered when interpreting these results. PM/Scl 100 Antibody IgG Negative Negative 07/26/2019 7:52 PM [facility] ([facility]) Comment: INTERPRETIVE INFORMATION: PM/Scl-100 Antibody, IgG by Immunoblot The presence of PM/Scl-100 IgG antibody along with a positive TY IFA nucleolar pattern is associated with connective tissue diseases such as polymyositis (PM), dermatomyositis (DM), systemic sclerosis (SSc), and polymyositis/systemic sclerosis overlap syndrome. The clinical relevance of PM/Scl-100 IgG antibody with a negative TY IFA nucleolar pattern is unknown. PM/Scl-100 is the main target epitope of the PM/Scl complex, although antibodies to other targets not detected by this assay may occur. Test developed and characteristics determined by [facility]. See Compliance Statement D: [email or web address] Fibrillarin (U3 SCALE MANAGER) Antibody IgG Negative Negative 07/26/2019 7:52 PM PRIMARY TEACHING ASSISTANT [facility] [address] [facility] ([facility]) Comment: Interpretive Information: Fibrillarin (U3 SCALE MANAGER) Antibody, IgG The presence of fibrillarin (U3-SCALE MANAGER) IgG antibodies in association with an TY IFA nucleolar pattern is suggestive of systemic sclerosis (SSc). In SSc, these antibodies are associated with distinct clinical features, such as younger age at disease onset, frequent internal organ involvement (pulmonary hypertension, myositis and renal disease). Fibrillarin antibodies are detected more frequently in patients with SSc compared to other ethnic groups. Strong correlation with TY IFA results is recommended. In a multi-ethnic cohort of SSc patients (n=98), U3-SCALE MANAGER antibodies detected by immunoblot had an agreement of 98.9 percent with the gold standard immunoprecipitation (IP) assay. Approximately 71 percent (5/7) of the borderline U3-SCALE MANAGER results with TY nucleolar pattern in this cohort were IP negative. Test developed and characteristics determined by [facility]. See Compliance Statement D: [email or web address] Performed by [facility], [address] [place] [address] [email or web address], Barry Carmona MD, Lab. Director Blood BLOOD SPECIMEN / Unknown Lab Venipuncture / Unknown 07/23/2019 2:21 PM PRIMARY TEACHING ASSISTANT 07/23/2019 3:13 PM PRIMARY TEACHING ASSISTANT Janes Smith MD LAB - SEROLOGY ORDER [facility] ([facility]) [address] [place] [address], [facility] * CYCLIC CITRUL PEPTIDE ANTIBODY IGG/IGA (CCP) (07/23/2019 2:21 PM PRIMARY TEACHING ASSISTANT) CCP Antibodies IgG/IgA 10 0 - 19 units 07/24/2019 11:06 PM PRIMARY TEACHING ASSISTANT [facility] ([facility]) Comment: Negative <20 Weak positive 20 - 39 Moderate positive 40 - 59 Strong positive >59 Blood BLOOD SPECIMEN / Unknown Lab Venipuncture / Unknown 07/23/2019 2:21 PM PRIMARY TEACHING ASSISTANT 07/23/2019 3:13 PM PRIMARY TEACHING ASSISTANT Narrative [facility] ([facility]) - 07/24/2019 11:06 PM PRIMARY TEACHING ASSISTANT Performed at: - [address] [id number] [place] Worker: Virginia Mojica MD, Phone: [phone] Janes Smith MD LAB - SEROLOGY ORDER XO[facility] ([facility]) [address] [place] [address] * DNA ANTIBODY DS CRITHIDIA TITER (07/23/2019 2:21 PM PRIMARY TEACHING ASSISTANT) [facility] dsDNA Antibody IgG <1:10 <1:10 2018 4:54 PM PRIMARY TEACHING ASSISTANT [employer] [facility] ([facility]) Comment: INTERPRETIVE INFORMATION: Double-Stranded DNA (dsDNA) Antibody, IgG by IFA (using Crithidia luciliae) Positivity for anti-double stranded DNA (anti-dsDNA) IgG antibody is a diagnostic criterion of systemic lupus erythematosus (SLE). The presence of the anti-dsDNA IgG antibody is identified by IFA titer (Crithidia luciliae indirect fluorescent test [BERTO]). BERTO is highly specific for SLE with a sensitivity of 50-60 percent. Some patients with early or inactive SLE may be positive for anti-dsDNA IgG by UVALDO but negative by BERTO. If the BERTO result is negative but the patient has a positive UVALDO and clinical suspicion remains, consider antinuclear antibody (TY) testing by IFA. Additional information and recommendations for testing may be found at [email or web address]. Performed by [facility], [address] [place] [id number] [email or web address], Barry Carmona MD, Lab. Director Blood BLOOD SPECIMEN / Unknown Lab Venipuncture / Unknown 07/23/2019 2:21 PM PRIMARY TEACHING ASSISTANT 07/23/2019 3:13 PM PRIMARY TEACHING ASSISTANT Janes Smith MD LAB - SEROLOGY ORDER [facility] ([facility]) [address] * (ABNORMAL) LUPUS ANTICOAGULANT PANEL (07/23/2019 2:21 PM PRIMARY TEACHING ASSISTANT) APTT 28.3 23.0 - 38.4 Seconds 07/24/2019 11:07 AM [facility] PT 11.6(L) 12.1 - 14.8 Seconds 07/24/2019 11:07 AM [facility] INR 0.9 See Comment 07/24/2019 11:07 AM [facility] Buffer 46.5 Seconds 019 11:07 AM [facility] Phospholipid 42.7 Seconds 07/24/2019 11:07 AM [facility] Delta 3.8 <8.0 Seconds 07/24/2019 11:07 AM [facility] Interpretation [facility] Negative Negative 07/24/2019 11:07 AM [facility] Comment:Up to 15-20% of crystal ents with lupus anticoagulant associated with antiphospholipid antibody syndrome (APAS) will have negative [facility] results. For these patients we recommend additional testing to include the Dilute Saad Viper Venom Time (DRVVT) test. Immunoassay measurements of anti-cardiolipin and anti-beta-2 glycoprotein 1 are recommended if the DRVVT, and [facility] tests are negative and there is clinical suspicion of APAS. Blood BLOOD SPECIMEN / Unknown Lab Venipuncture / Unknown 07/23/2019 2:21 PM PRIMARY TEACHING ASSISTANT 07/23/2019 3:13 PM PRIMARY TEACHING ASSISTANT Janes Smith MD LAB - HEMATOLOGY ORD ERABLES [facility] [address] [phone] * RHEUMATOID FACTOR BLOOD QUANTITATIVE (07/23/2019 2:21 PM PRIMARY TEACHING ASSISTANT) Rheumatoid Factor <15 <30 IU/mL 07/23/2019 3:42 PM [facility] Blood BLOOD SPECIMEN / Unknown Lab Venipuncture / Unknown 07/23/2019 2:21 PM PRIMARY TEACHING ASSISTANT 07/23/2019 3:13 PM PRIMARY TEACHING ASSISTANT Janes Smith MD LAB - CHEMISTRY [facility] Organization Address City/State/ZIP Co de Phone Number [facility] [address] [phone] * OCT (06/25/2019 1:43 PM CDT) Anatomical Region Laterality Modality Other 06/25/2019 1:43 PM CDT Janes Smith MD OPHTHALMOLOGY SERVIC ES ORDERABLES * (ABNORMAL) URINALYSIS REFLEX TO MICROSCOPIC NO CULTURE (05/24/2019 12:43 PM CDT) Color UA Yellow Straw, Yellow, Colorless 05/24/2019 1:10 PM [facility] Clarity UA Clear Clear, Slt Cloudy 05/24/2019 1:10 PM T [facility] Specific [place] UA 1.014 1.005 - 1.030 05/24/2019 1:10 PM [facility] pH UA 7.0 5.0 - 8.0 pH 05/24/2019 1:10 PM [facility] Protein UA Negative Negative mg/dL 05/24/2019 1:10 PM [facility] Glucose UA Negative Negative mg/dL 05/24/2019 1:10 PM [facility] Ketone UA Negative Negative mg/dL 05/24/2019 1:10 PM [facility] Bilirubin UA Negative Negative mg/dL 05/24/2019 1:10 PM [facility] Blood UA Negative Negative 05/24/2019 1:10 PM [facility] Nitrite UA Negative Negative 05/24/2019 1:10 PM [facility] Leukocyte Esterase Negative Negative 05/24/2019 1:10 PM [facility] Urobilinogen UA Negative Negative mg/dL 05/24/2019 1:10 PM [facility] RBC UA 3-5 None Seen, 0-2, 3-5 /HPF 05/24/2019 1:10 PM CDT [facility] WBC UA 0-5 None Seen, 0-5 /HPF 05/24/2019 1:10 PM CDT [facility] Squamous Epithelial Cells UA 3-5(A) None Seen, 0-2 /HPF 05/24/2019 1:10 PM CDT [facility] Urine URINE SPECIMEN OBTAINED BY CLEAN CATCH PROCEDURE / Unknown Collection / Unknown 05/24/2019 12:43 PM CDT 05/24/2019 12:55 PM CDT Narrative [facility] - 05/24/2019 1:10 PM CDT Janes Smith MD LAB - URINALYSIS ORD ERABLES Performing Organization Address City/State/[facility] Co de Phone Number [address] [phone] * XR ANKLE RIGHT 3VW OR MORE (05/24/2019 12:41 PM CDT) Anatomical Region Laterality Modality Lower Extremity Radiographic Kristyn ging 05/24/2019 12:3 3 PM CDT Impressions 05/24/2019 12:49 PM CDT IMPRESSION: 1. Right hand: Mild uniform joint space narrowing at the third metacarpophalangeal joint and a small erosion in the the third proximal phalanx base. This appearance can be seen with inflammatory arthritis such as rheumatoid arthritis. 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 2. Left hand: No significant arthritis in the hand. 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 Cyst/erosion of the distal ulna. 3. Right foot: No significant arthritis. 4. Right ankle: A 1 cm cystic osteochondral lesion in the medial aspect of the talar dome. This may be of arthritic, posttraumatic, or other etiology. 5. Left foot: No arthritis. 6. Left ankle: Chronic healed fractures of the distal tibia and fibula and mild posttraumatic tibiotalar osteoarthritis. This report was electronically signed by DIMAS RAINES MD on 05/24/2019 12:49 PM . Narrative 05/24/2019 12:49 PM CDT Exam: XR HAND RIGHT 3VW XR ANKLE RIGHT 3VW XR ANKLE LEFT 3VW XR FOOT RIGHT 3VW XR FOOT LEFT 3VW XR HAND LEFT 3VW History: hand pain , foot pain, ankle pain, arthritis Comparison: None. Findings: Right hand: No fracture or dislocation is seen. The interphalangeal joint spaces are normal. Small calcifications are seen adjacent to the second and third digit distal interphalangeal joints. There is mild uniform joint space narrowing at the third metacarpophalangeal joint. A small erosion is noted in the third proximal phalanx base. There is osteoarthritis in the wrist, mild at the first carpometacarpal joint and distal radioulnar joint and moderate at the scaphoid trapezium trapezoid joint. There is cystic change of the proximal aspect of the lunate. Positive ulnar variance is suggested although this would be more reliably evaluated with wrist radiographs. The bones are mildly osteopenic. The soft tissues are normal. Left hand: No fracture or dislocation is present. The hand joint spaces are normal. No erosions are seen. The bones are mildly osteopenic. In the wrist, there is moderate osteoarthritis at the base of the thumb. There is lucency in the distal ulna consistent with subchondral cyst formation or an erosion. The styloid process is mildly blunted. Small osteophytes are seen at the distal radioulnar joint. There is cystic change in the proximal lunate. Positive ulnar variance is suggested although this could be more reliably evaluated with wrist radiographs. The bones are mildly osteopenic. The soft tissues are normal. Right foot: No fracture or dislocation is present. The joint spaces are normal. No erosions are seen. The bones are mildly osteopenic. The soft tissues are normal. A small plantar calcaneal spur is noted. Right ankle: No acute fracture or dislocation is seen. A 1.0 cm region of lucency and sclerosis is noted at the medial aspect of the talar dome consistent with a cystic osteochondral lesion. No definite erosions are seen. The joint spaces are maintained. A small plantar calcaneal spur is visible. There is mild soft tissue swelling, greater laterally. A small spur is seen at the fibular tip. Left foot: No fracture or dislocation is present. The joint spaces are normal. No erosions are seen. The bones are mildly osteopenic. The soft tissues are normal. Left ankle: No acute fracture or dislocation is seen. There are chronic healed fractures of the distal tibia and fibula with mild residual deformity. There is mild posttraumatic osteoarthritis of the tibiotalar joint. No erosions are seen. The bones are mildly osteopenic. The soft tissues are normal. Procedure Note Dimas Raines MD - 05/24/2019 Exam: XR HAND RIGHT 3VW XR ANKLE RIGHT 3VW XR ANKLE LEFT 3VW XR FOOT RIGHT 3VW XR FOOT LEFT 3VW XR HAND LEFT 3VW History: hand pain , foot pain, ankle pain, arthritis Comparison: None. Findings: Right hand: No fracture or dislocation is seen. The interphalangeal joint spaces are normal. Small calcifications are seen adjacent to the second and third digit distal interphalangeal joints. There is mild uniform joint space narrowing at the third metacarpophalangeal joint. A small erosion isnoted in the third proximal phalanx base. There is osteoarthritis in thewrist, mild at the first carpometacarpal joint and distal radioulnar joint and moderate at the scaphoid trapezium trapezoid joint. There is cysticchange of the proximal aspect of the lunate. Positive ulnar variance issuggested although this would be more reliably evaluated with wrist radiographs.The bones are mildly osteopenic. The soft tissues are normal. Left hand: No fracture or dislocation is present. The hand joint spaces are normal. No erosions are seen. The bones are mildly osteopenic. In the wrist,there is moderate osteoarthritis at the base of the thumb. There is lucency in the distal ulna consistent with subchondral cyst formation or anerosion. The styloid process is mildly blunted. Small osteophytes are seen at the distal radioulnar joint. There is cystic change in the proximal lunate. Positive ulnar variance is suggested although this could be morereliably evaluated with wrist radiographs. The bones are mildly osteopenic. The soft tissues are normal. Right foot: No fracture or dislocation is present. The joint spaces are normal. No erosions are seen. The bones are mildly osteopenic. The soft tissues are normal. A small plantar calcaneal spur is noted. Right ankle: No acute fracture or dislocation is seen. A 1.0 cm region of lucency and sclerosis is noted at the medial aspect of the talar dome consistentwith a cystic osteochondral lesion. No definite erosions are seen. The joint spaces are maintained. A small plantar calcaneal spur is visible. Thereis mild soft tissue swelling, greater laterally. A small spur is seen atthe fibular tip. Left foot: No fracture or dislocation is present. The joint spaces are normal. No erosions are seen. The bones are mildly osteopenic. The soft tissues are normal. Left ankle: No acute fracture or dislocation is seen. There are chronic healed fractures of the distal tibia and fibula with mild residual deformity. There is mild posttraumatic osteoarthritis of the tibiotalar joint. No erosions are seen. The bones are mildly osteopenic. The soft tissues are normal. IMPRESSION: 1. Right hand: Mild uniform joint space narrowing at the third metacarpophalangeal joint and a small erosion in the the third proximal phalanx base. This appearance can be seen with inflammatory arthritissuch as rheumatoid arthritis. 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 2. Left hand: No significant arthritis in the hand. 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 Cyst/erosion of the distal ulna. 3. Right foot: No significant arthritis. 4. Right ankle: A 1 cm cystic osteochondral lesion in the medial aspectof the talar dome. This may be of arthritic, posttraumatic, or other etiology. 5. Left foot: No arthritis. 6. Left ankle: Chronic healed fractures of the distal tibia and fibulaand mild posttraumatic tibiotalar osteoarthritis. This report was electronically signed by DIMAS RAINES MD on05/24/2019 12:49 PM . Janes Smith MD DIAGNOSTIC IMAGING O RDERABLES * XR ANKLE LEFT 3VW OR MORE (05/24/2019 12:41 PM CDT) Anatomical Region Laterality Modality Lower Extremity Radiographic Kristyn ging 05/24/2019 12:3 3 PM CDT Impressions 05/24/2019 12:49 PM CDT IMPRESSION: 1. Right hand: Mild uniform joint space narrowing at the third metacarpophalangeal joint and a small erosion in the the third proximal phalanx base. This appearance can be seen with inflammatory arthritis such as rheumatoid arthritis. 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 2. Left hand: No significant arthritis in the hand. 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 Cyst/erosion of the distal ulna. 3. Right foot: No significant arthritis. 4. Right ankle: A 1 cm cystic osteochondral lesion in the medial aspect of the talar dome. This may be of arthritic, posttraumatic, or other etiology. 5. Left foot: No arthritis. 6. Left ankle: Chronic healed fractures of the distal tibia and fibula and mild posttraumatic tibiotalar osteoarthritis. This report was electronically signed by DIMAS RAINES MD on 05/24/2019 12:49 PM . Narrative 05/24/2019 12:49 PM CDT Exam: XR HAND RIGHT 3VW XR ANKLE RIGHT 3VW XR ANKLE LEFT 3VW XR FOOT RIGHT 3VW XR FOOT LEFT 3VW XR HAND LEFT 3VW History: hand pain , foot pain, ankle pain, arthritis Comparison: None. Findings: Right hand: No fracture or dislocation is seen. The interphalangeal joint spaces are normal. Small calcifications are seen adjacent to the second and third digit distal interphalangeal joints. There is mild uniform joint space narrowing at the third metacarpophalangeal joint. A small erosion is noted in the third proximal phalanx base. There is osteoarthritis in the wrist, mild at the first carpometacarpal joint and distal radioulnar joint and moderate at the scaphoid trapezium trapezoid joint. There is cystic change of the proximal aspect of the lunate. Positive ulnar variance is suggested although this would be more reliably evaluated with wrist radiographs. The bones are mildly osteopenic. The soft tissues are normal. Left hand: No fracture or dislocation is present. The hand joint spaces are normal. No erosions are seen. The bones are mildly osteopenic. In the wrist, there is moderate osteoarthritis at the base of the thumb. There is lucency in the distal ulna consistent with subchondral cyst formation or an erosion. The styloid process is mildly blunted. Small osteophytes are seen at the distal radioulnar joint. There is cystic change in the proximal lunate. Positive ulnar variance is suggested although this could be more reliably evaluated with wrist radiographs. The bones are mildly osteopenic. The soft tissues are normal. Right foot: No fracture or dislocation is present. The joint spaces are normal. No erosions are seen. The bones are mildly osteopenic. The soft tissues are normal. A small plantar calcaneal spur is noted. Right ankle: No acute fracture or dislocation is seen. A 1.0 cm region of lucency and sclerosis is noted at the medial aspect of the talar dome consistent with a cystic osteochondral lesion. No definite erosions are seen. The joint spaces are maintained. A small plantar calcaneal spur is visible. There is mild soft tissue swelling, greater laterally. A small spur is seen at the fibular tip. Left foot: No fracture or dislocation is present. The joint spaces are normal. No erosions are seen. The bones are mildly osteopenic. The soft tissues are normal. Left ankle: No acute fracture or dislocation is seen. There are chronic healed fractures of the distal tibia and fibula with mild residual deformity. There is mild posttraumatic osteoarthritis of the tibiotalar joint. No erosions are seen. The bones are mildly osteopenic. The soft tissues are normal. Procedure Note Dimas Raines MD - 05/24/2019 Exam: XR HAND RIGHT 3VW XR ANKLE RIGHT 3VW XR ANKLE LEFT 3VW XR FOOT RIGHT 3VW XR FOOT LEFT 3VW XR HAND LEFT 3VW History: hand pain , foot pain, ankle pain, arthritis Comparison: None. Findings: Right hand: No fracture or dislocation is seen. The interphalangeal joint spaces are normal. Small calcifications are seen adjacent to the second and third digit distal interphalangeal joints. There is mild uniform joint space narrowing at the third metacarpophalangeal joint. A small erosion isnoted in the third proximal phalanx base. There is osteoarthritis in thewrist, mild at the first carpometacarpal joint and distal radioulnar joint and moderate at the scaphoid trapezium trapezoid joint. There is cysticchange of the proximal aspect of the lunate. Positive ulnar variance issuggested although this would be more reliably evaluated with wrist radiographs.The bones are mildly osteopenic. The soft tissues are normal. Left hand: No fracture or dislocation is present. The hand joint spaces are normal. No erosions are seen. The bones are mildly osteopenic. In the wrist,there is moderate osteoarthritis at the base of the thumb. There is lucency in the distal ulna consistent with subchondral cyst formation or anerosion. The styloid process is mildly blunted. Small osteophytes are seen at the distal radioulnar joint. There is cystic change in the proximal lunate. Positive ulnar variance is suggested although this could be morereliably evaluated with wrist radiographs. The bones are mildly osteopenic. The soft tissues are normal. Right foot: No fracture or dislocation is present. The joint spaces are normal. No erosions are seen. The bones are mildly osteopenic. The soft tissues are normal. A small plantar calcaneal spur is noted. Right ankle: No acute fracture or dislocation is seen. A 1.0 cm region of lucency and sclerosis is noted at the medial aspect of the talar dome consistentwith a cystic osteochondral lesion. No definite erosions are seen. The joint spaces are maintained. A small plantar calcaneal spur is visible. Thereis mild soft tissue swelling, greater laterally. A small spur is seen atthe fibular tip. Left foot: No fracture or dislocation is present. The joint spaces are normal. No erosions are seen. The bones are mildly osteopenic. The soft tissues are normal. Left ankle: No acute fracture or dislocation is seen. There are chronic healed fractures of the distal tibia and fibula with mild residual deformity. There is mild posttraumatic osteoarthritis of the tibiotalar joint. No erosions are seen. The bones are mildly osteopenic. The soft tissues are normal. IMPRESSION: 1. Right hand: Mild uniform joint space narrowing at the third metacarpophalangeal joint and a small erosion in the the third proximal phalanx base. This appearance can be seen with inflammatory arthritissuch as rheumatoid arthritis. 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 2. Left hand: No significant arthritis in the hand. 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 Cyst/erosion of the distal ulna. 3. Right foot: No significant arthritis. 4. Right ankle: A 1 cm cystic osteochondral lesion in the medial aspectof the talar dome. This may be of arthritic, posttraumatic, or other etiology. 5. Left foot: No arthritis. 6. Left ankle: Chronic healed fractures of the distal tibia and fibulaand mild posttraumatic tibiotalar osteoarthritis. This report was electronically signed by DIMAS RAINES MD on05/24/2019 12:49 PM . Janes Smith MD DIAGNOSTIC IMAGING O RDERABLES * BETA-2 GLYCOPROTEIN 1 ANTIBODY IGG (05/24/2019 12:10 PM CDT) Beta-2 Glycoprotein I Antibody IgG <9 0 - 20 GPI IgG units 05/26/2019 6:08 AM CDT [facility] ([facility]) Comment: The reference interval reflects a 3SD or 99th percentile interval, which is thought to represent a potentially clinically significant result in accordance with the International Consensus Statement on the classification criteria for definitive antiphospholipid syndrome (APS). J Thromb Haem 2006;4:295-306. Blood BLOOD SPECIMEN / Unknown Lab Venipuncture / Unknown 05/24/2019 12:10 PM CDT 05/24/2019 12:49 PM CDT Narrative [facility] ([facility]) - 05/26/2019 6:08 AM CDT Performed at: 01 - [facility] [id number] Kiln Worker: Virginia Mojica MD, Phone: [phone] Janes Smith MD LAB - SEROLOGY ORDER XOCHITL Performing Organization Address [facility] Co de Phone Number [facility] ([facility]) [address] [place] [address], [place] * BETA-2 GLYCOPROTEIN 1 ANTIBODY IGM (05/24/2019 12:10 PM CDT) [facility] Beta-2 Glycoprotein I Antibody IgM <9 0 - 32 GPI IgM units 05/26/2019 3:07 PM CDT [facility] ([facility]) Comment: The reference interval reflects a 3SD or 99th percentile interval, which is thought to represent a potentially clinically significant result in accordance with the International Consensus Statement on the classification criteria for definitive antiphospholipid syndrome (APS). J Thromb Haem 2006;4:295-306. Blood BLOOD SPECIMEN / Unknown Lab Venipuncture / Unknown 05/24/2019 12:10 PM CDT 05/24/2019 12:49 PM CDT Narrative [facility] ([facility]) - 05/26/2019 3:07 PM CDT Performed at: 01 - [address] [id number] Kiln Worker: Virginia Mojica MD, Phone: [phone] Janes Smith MD LAB - SEROLOGY ORDER XOCHITL Performing Organization Address [facility] Co de Phone Number [facility] ([facility]) [address] [place] [address], [place] * CARDIOLIPIN ANTIBODY IGA (05/24/2019 12:10 PM CDT) Pathologist [facility] Cardiolipin Antibody IgA <9 0 - 11 APL U/mL 05/25/2019 4:09 PM CDT [facility] ([facility]) Comment: Negative: <12 Indeterminate: 12 - 20 Low-Med Positive: >20 - 80 High Positive: >80 Blood BLOOD SPECIMEN / Unknown Lab Venipuncture / Unknown 05/24/2019 12:10 PM CDT 05/24/2019 12:49 PM CDT Narrative [facility] ([facility]) - 05/25/2019 4:09 PM CDT Performed at: [address] [place] [id number] Kiln Worker: Khang Rosario PhD, Phone: [phone] Janes Smith MD LAB - SEROLOGY ORDER XOCHITL Performing Organization Address City/[facility] Co de Phone Number [facility] ([facility]) [address] [place] [address] * CARDIOLIPIN ANTIBODY IGM (05/24/2019 12:10 PM CDT) Pathologist [facility] Cardiolipin Antibody IgM <9 0 - 12 MPL U/mL 05/25/2019 4:09 PM CDT [facility] Comment: Negative: <13 Indeterminate: 13 - 20 Low-Med Positive: >20 - 80 High Positive: >80 Blood BLOOD SPECIMEN / Unknown Lab Venipuncture / Unknown 05/24/2019 12:10 PM CDT 05/24/2019 12:49 PM CDT Narrative [facility] ([facility]) - 05/25/2019 4:09 PM CDT Performed at: [address] [place] [id number] Kiln Worker: Khang Rosario PhD, Phone: [phone] Janes Smith MD LAB - SEROLOGY ORDER XOCHITL Performing Organization Address City/[facility]/ZIP Co de Phone Number [facility] ([facility]) [address] [place] [address] * CARDIOLIPIN ANTIBODY IGG (05/24/2019 12:10 PM CDT) Pathologist [facility] Cardiolipin Antibody IgG <9 0 - 14 GPL U/mL 05/25/2019 4:09 PM CDT [facility] ([facility]) Comment: Negative: <15 Indeterminate: 15 - 20 Low-Med Positive: >20 - 80 High Positive: >80 Blood BLOOD SPECIMEN / Unknown Lab Venipuncture / Unknown 05/24/2019 12:10 PM CDT 05/24/2019 12:49 PM CDT Narrative [facility] ([facility]) - 05/25/2019 4:09 PM CDT [facility]formed [facility]: [facility] [address] [place] [id number] Kiln Worker: Khang Rosario PhD, Phone: [phone] Janes Smith MD LAB - SEROLOGY ORDER XOCHITL Performing Organization Address City/[facility]/ZIP Co de Phone Number [facility] ([facility]) [address] [place] [address] * MONTIEL (SM) ANTIBODY LAUREN (05/24/2019 12:10 PM CDT) Pathologist [facility] Montiel Antibody 3.4 0.0 - 19.9 Units 05/25/2019 10:05 AM CDT [facility] Comment: LAUREN Antibody Numeric Result Interpretation: <20.0 Units: Negative 20.0 - 39.0 Units: Weakly Positive >39.0 Units: Positive Blood BLOOD SPECIMEN / Unknown Lab Venipuncture / Unknown 05/24/2019 12:10 PM CDT 05/24/2019 12:48 PM CDT Janes Smith MD LAB - CHEMISTRY INGRID DE GUZMAN [address] [phone] * SCALE MANAGER ANTIBODY (05/24/2019 12:10 PM CDT) [facility] SM/SCALE MANAGER Antibody 3.2 0.0 - 19.9 Units 05/25/2019 10:05 AM CDT [facility] Comment: LAUREN Antibody Numeric Result Interpretation: <20.0 Units: Negative 20.0 - 39.0 Units: Weakly Positive >39.0 Units: Positive Blood BLOOD SPECIMEN / Unknown Lab Venipuncture / Unknown 05/24/2019 12:10 PM CDT 05/24/2019 12:48 PM CDT Janes Smith MD LAB - CHEMISTRY INGRID DE GUZMAN Performing Organization Address City/[facility]/ZIP Co de Phone Number [facility] [address] [place] [address] * TY BLOOD SCREEN W/REFLEX TITER (05/24/2019 12:10 PM CDT) TY Negative 05/25/2019 5:07 PM CDT [facility] ([facility]) Comment: Negative <1:80 Borderline 1:80 Positive >1:80 Blood BLOOD SPECIMEN / Unknown Lab Venipuncture / Unknown 05/24/2019 12:10 PM CDT 05/24/2019 12:49 PM CDT Narrative [facility] ([facility]) - 05/25/2019 5:07 PM CDT Performed at: [address] [place] [id number] Kiln Worker: Khang Rosario PhD, Phone: [phone] Janes Smith MD LAB - CHEMISTRY INGRID DE GUZMAN Performing Organization Address City/[facility] Co de Phone Number [facility] ([facility]) [address] [place] [address] * BETA-2 GLYCOPROTEIN 1 ANTIBODY IGA (05/24/2019 12:10 PM CDT) Beta-2 Glycoprotein I Antibody IgA <9 0 - 25 GPI IgA units 05/26/2019 6:08 AM CDT [facility] ([facility]) Comment: The reference interval reflects a 3SD or 99th percentile interval, which is thought to represent a potentially clinically significant result in accordance with the International Consensus Statement on the classification criteria for definitive antiphospholipid syndrome (APS). J Thromb Haem 2006;4:295-306. Blood BLOOD SPECIMEN / Unknown Lab Venipuncture / Unknown 05/24/2019 12:10 PM CDT 05/24/2019 12:49 PM CDT Narrative [facility] ([facility]) - 05/26/2019 6:08 AM CDT Performed at: [address] [place] [id number] Kiln Worker: Virginia Mojica MD, Phone: [phone] Janes Smith MD LAB - SEROLOGY ORDER XOCHITL Performing Organization Address [facility] Co de Phone Number [facility] ([facility]) [address] [place] [address] * COMPLEMENT TOTAL (05/24/2019 12:10 PM CDT) Pathologist [facility] Complement Total CH50 >60 42 - 522995 U/mL 05/25/2019 3:08 PM CDT [facility] ([facility]) Blood BLOOD SPECIMEN / Unknown Lab Venipuncture / Unknown 05/24/2019 12:10 PM CDT 05/24/2019 12:49 PM CDT [facility] ([facility]) - 05/25/2019 3:08 PM CDT Performed at: [address] [place] [address] [place] [id number] Kiln Worker: Khang Rosario PhD, Phone: [phone] Janes Smith MD LAB - CHEMISTRY ORDLeidy DE GUZMAN Performing Organization Address City/[facility] Co de Phone Number [facility]) [address] [place] [address] * VITAMIN D 25-HYDROXY (05/24/2019 12:10 PM CDT) Pathologist [facility] Vitamin D, 25 Hydroxy 62.3 See comment: ng/mL 05/24/2019 1:48 PM CDT [facility] Comment: The recommendations for 25-Hydroxy Vitamin D clinical decision points are as follows: Deficient: <20.0 ng/mL Insufficient: 20.0 - 29.9 ng/mL Sufficient: > or =30.0 ng/mL If the 25-Hydroxy Vitamin D results are inconsitent with clinical evidence, it is recommended that follow-up testing using a method such as LC/MS/MS be performed to confirm the result. Reference: The Endocrine Society Clinical Practice Guidelines. 2010 Blood BLOOD SPECIMEN / Unknown Lab Venipuncture / Unknown 05/24/2019 12:10 PM CDT 05/24/2019 12:48 PM CDT Janes Smith MD LAB - CHEMISTRY INGRID DE GUZMAN [address] [phone] * COMPLEMENT C4 (05/24/2019 12:10 PM CDT) Complement C4 39 15 - 57 mg/dL 05/24/2019 1:27 PM CDT [facility] Blood BLOOD SPECIMEN / Unknown Lab Venipuncture / Unknown 05/24/2019 12:10 PM CDT 05/24/2019 12:48 PM CDT Janes Smith MD LAB - SEROLOGY ORDER XOCHITL Performing Organization Address [facility]/[place] [address], [facility] [phone] * COMPLEMENT C3 (05/24/2019 12:10 PM CDT) Complement C3 151 82 - 193 mg/dL 05/24/2019 1:27 PM CDT [facility] Blood BLOOD SPECIMEN / Unknown Lab Venipuncture / Unknown 05/24/2019 12:10 PM CDT 05/24/2019 12:48 PM CDT Janes Smith MD LAB - CHEMISTRY INGRID DE GUZMAN Performing Organization Address City/[facility]/[place] [address], [facility] [phone] * CARDIAC RHYTHM STRIP ORDER (11/11/2011 11:11 AM CDT) Narrative Transcriptions Document, Scanned - 11/11/2011 11:11 AM CDT Scanned Document CARDIAC SERVICES ORD ERABLES * CARDIAC ECHOCARDIOGRAM COMPLETE ORDER (11/11/2011 11:11 AM CDT) Narrative Transcriptions Document, Scanned - 11/11/2011 11:11 AM CDT Scanned Document ECHO ORDERABLES * BLOOD TYPE VERIFICATION (10/28/2011 8:35 AM PRIMARY TEACHING ASSISTANT) ABO Rh B Pos SEE BELOW [facility] Comment: Weak D testing is not performed at [facility] BLOOD SPECIMEN / Unknown 10/28/2011 8:35 AM PRIMARY TEACHING ASSISTANT 10/28/2011 9:53 AM PRIMARY TEACHING ASSISTANT Emery Zepeda MD LAB - BLOOD BANK ORD [employer] Performing Organization Address [facility] de Phone Number [facility] [address] [place] [address] * TYPE + SCREEN PANEL (10/28/2011 8:30 AM PRIMARY TEACHING ASSISTANT) ABO Rh B Pos SEE BELOW [facility] Comment: Weak D testing is not performed at [facility] Antibody Screen Neg [facility] Previous History Check Done Historical blood type on record, type verification complete. [facility] Miscellaneous samples (specimen) BLOOD SPECIMEN / Unknown 10/28/2011 8:30 AM PRIMARY TEACHING ASSISTANT 10/28/2011 9:23 AM PRIMARY TEACHING ASSISTANT Emery Zepeda MD LAB - BLOOD BANK ORD [employer] Performing Organization Address City/[facility] Co de Phone Number [facility] [address] [place] [address] * CBC W/O DIFFERENTIAL (10/28/2011 8:30 AM PRIMARY TEACHING ASSISTANT) WBC 9.4 4.0 - 10.0 K/CUMM [facility] RBC 4.41 3.80 - 5.80 M/CUMM [facility] Hemoglobin 14.1 12.0 - 16.0 gm/dL [facility] Hematocrit 41.2 37.0 - 47.0 % [facility] MCV 93.4 80.0 - 100.0 fl [facility] MCH 32.0 26.0 - 34.0 pg [facility] MCHC 34.2 31.0 - 37.0 gm/dL [facility] RDW 12.5 11.5 - 14.5 % [facility] Platelet Count 373 150 - 400 K/CUMM [facility] Blood specimen (specimen) BLOOD SPECIMEN / Unknown 10/28/2011 8:30 AM PRIMARY TEACHING ASSISTANT 10/28/2011 9:22 AM PRIMARY TEACHING ASSISTANT Emery Zepeda MD LAB - HEMATOLOGY ORD ERABLES Performing Organization Address [facility] Co de Phone Number [facility] [address] [place] [address] * BASIC METABOLIC PANEL (CALCIUM TOTAL) (10/28/2011 8:30 AM PRIMARY TEACHING ASSISTANT) Sodium 141 136 - 145 mmol/L [facility] Potassium 3.9 3.5 - 5.1 mmol/L [facility] Chloride 103 98 - 107 mmol/L [facility] BUN 15 7 - 21.0 mg/dl [facility] Creatinine 0.86 0.5 - 1.3 mg/dl [facility] Glucose 81 65 - 105 mg/dl [facility] CO2 30 22 - 30 mmol/L [facility] Calcium 9.3 8.5 - 10.1 mg/dl [facility] eGFR by MDRD >60 >60 mL/min/1.7 3m2 [facility] Comment eGFR [facility] Comment: The eGFR does not apply to patients who are younger than 18 or older than 70. Blood specimen (specimen) BLOOD SPECIMEN / Unknown 10/28/2011 8:30 AM PRIMARY TEACHING ASSISTANT 10/28/2011 9:22 AM PRIMARY TEACHING ASSISTANT Emery Zepeda MD LAB - CHEMISTRY ORDLeidy DE GUZMAN Performing Organization Address City/[facility] Co de Phone Number [facility] [address] [place] [address] * CULTURE URINE COMPREHENSIVE (06/12/2011 10:00 AM CDT) Culture SEE NOTE [facility] ([facility]) Comment: CULTURE, URINE, SPECIAL MICRO NUMBER: [id number] TEST STATUS: FINAL SPECIMEN SOURCE: URINE (CATHETER COLLECTED) SPECIMEN QUALITY: ADEQUATE RESULT: No Growth NO COLLECTION DATE RECEIVED. WE HAVE USED THE DATE THE SPECIMEN WAS RECEIVED BY THIS LABORATORY THE COLLECTION DATE. IF THIS IS INCORRECT, PLEASE CONTACT CLIENT SERVICES. PHONE NUMBER: [phone] Test Performed at: [facility] [address] [address] LUISA LAWRENCE DO Urine specimen (specimen) URINE SPECIMEN COLLECTION, CATHETERIZED / Unknown 06/12/2011 10:00 AM CDT 06/10/2011 1:12 AM CDT Narrative [facility] ([facility]) - 06/12/2011 10:00 AM CDT Preferred Lab:->[facility] Emery Zepeda MD LAB - MICROBIOLOGY O RDERABLES [facility] ([facility]) * URINALYSIS - POINT OF CARE (AMB) [facility] (08/29/1998 12:00 AM PRIMARY TEACHING ASSISTANT) Glucose UA neg [facility] Bilirubin UA POCT neg [facility] Ketones UA POCT neg [facility] Specific [place] UA 1.010 [facility] Blood Urine POCT neg [facility] pH UA 5.0 [facility] Protein UA neg [facility] Urobilinogen UA neg [facility] Nitrite UA neg [facility] WBC UA neg [facility] Urine specimen (specimen) 08/29/1998 Emery Zepeda MD LAB - POINT OF CARE ORDERABLES [facility] Care Teams Inspector Dials Relationship Specialty Start Date End Date Shandra Ruffin, SUPPLY CHAIN ENGINEER-MANUFACTURING FINANCE MANAGER [address] [place] [address] PCP - General 04/02/22
--- OUTSIDE RECORDS SUMMARY | 2024-10-04 13:31 | XMS_ITS | Referral Summary ---
Author Organization [facility] Address [address] [place] [address] Care Team Providers Care Apparel Sales Associate Name Role Phone Shandra Ruffin Malcolm WISDOM-OIL WELL DIRECTIONAL SURVEYOR Primary Care Provider Source Comments [facility],non-owned Affiliates and Associated Physician Practices is amultiple site organization consisting of ambulatory clinics and hospital sitesin [place], [place], [place] and [place]. This disclosure is being madepursuant to the Care Everywhere program and may not contain all information available regarding this patient. Last updated 18.[facility] Allergies Active Allergy Reactions Criticality Noted Date [...] LURIA, FLUZONE TRIVALENT; 6MO+) (IIV3) 06/16/2016,06/11/2015,06/01/2014,2012,06/14/2012,06/01/2011 [employer] primary monoval ent 12+ yr 0.3mL Purple [...] 01/18/2023 1:30 PM CDT Plan of Treatment Not on file Procedures Procedure Name Priority Date/Time Associated Diagnosis Comments COMPREHENSIVE METABOLIC PANEL 08/31/2022 9:26 AM LEGAL LIBRARIAN from Last 3 Months or Most Recently Relevant to Health Maintenance Results * (ABNORMAL) COMPREHENSIVE METABOLIC PANEL (08/31/2022 9:26 AM LEGAL LIBRARIAN) Glucose 105(H) 65 - 99 mg/dL [facility] [...] 29 U/L [facility] Comment: Test Performed at: [facility] [address] [place] [address] LUISA LAWRENCE DO,MPH 08/31/2022 9:26 AM LEGAL LIBRARIAN 08/31/2022 9:27 AM LEGAL LIBRARIAN Mitchell Zamarripa MD LAB - CHEMISTRY INGRID DE GUZMAN [facility] Organization Address City/State/ZIP Co de Phone Number [facility] [address] [place] [address] from Last 3 Months or Most Recently Relevant to Health Maintenance Advance Directives * FULL RESUSCITATION (Latest Code Status on File) Date Activated Date Inactivated Comments 11/08/2011 12:50 PM 11/10/2011 12:21 AM Care Teams Apparel Sales Associate Relationship Specialty Start Date End Date Shandra Ruffin, PICKER OPERATOR-OIL WELL DIRECTIONAL SURVEYOR [address] [place] [phone] PCP - General 04/02/22
--- OUTSIDE RECORDS SUMMARY | 2024-10-04 13:31 | XMS_ITS | Referral Summary ---
Author Organization [facility] Address [address] [place] [address] Care Team Providers Care Health Insurance Sales Agent Name Role Phone Mariah Adams MD Primary Care Provider + Mitchell Zamarripa MD Unavailable [phone] Brit More SOLAR PHOTOVOLTAIC INSTALLER Unavailable [phone] Cliff Ronquillo NP Unavailable [phone] Dick Aguilar Unavailable [phone] Gavin Sewell MD Unavailable [phone] Encounters Date Type Department Care Team Description 09/10/2024 9:15 AM POWER DISTRIBUTION ENGINEER - 09/10/2024 10:45 AM POWER DISTRIBUTION ENGINEER Surgery [facility] Operating Room [address] [place] [address] Vignesh Hawkins MD LAPAROSCOPIC CHOLECYSTECTOMY 09/10/2024 9:16 AM POWER DISTRIBUTION ENGINEER Anesthesia Event [facility] Operating Room [address] [place] [address] Tonia Gutierrez MD Reynolds, Ethan Emerson, MD 09/10/2024 8:13 AM POWER DISTRIBUTION ENGINEER - 09/10/2024 2:39 PM POWER DISTRIBUTION ENGINEER Hospital Encounter [facility] Operating Room [address] [place] [address] Vignesh Hawkins MD Calculus of gallbladder with cholecystitis without biliary obstruction, unspecified cholecystitis acuity Discharge Disposition: Discharge to home or self care 08/14/2024 9:30 AM POWER DISTRIBUTION ENGINEER Office Visit [facility] [address] [place] [id number] Vignesh Hawkins MD Calculus of gallbladder with cholecystitis without biliary obstruction, unspecified cholecystitis acuity 07/24/2024 7:58 AM POWER DISTRIBUTION ENGINEER - 07/24/2024 11:59 PM POWER DISTRIBUTION ENGINEER Hospital Encounter [facility] [address] [place] [address] Hepatomegaly, not elsewhere classified; Hepatomegaly Discharge Disposition: Discharge to home or self care 07/22/2024 8:25 AM POWER DISTRIBUTION ENGINEER - 07/22/2024 10:10 AM POWER DISTRIBUTION ENGINEER Emergency [facility] Emergency Department [address] [place] [address] Mike Suarez MD Bronchitis (Primary Dx) Discharge Disposition: Discharge to home or self care from Last 3 Months Allergies Active Allergy Reactions Criticality Noted Date Comments Ciprofloxacin Other (See comments),Muscle pain High 09/02/2017 Tendon and muscle pain BLE. Sulfa (Sulfonamide Antibiotics) Hives,Rash Medium 04/22/2016 Sulfur Dioxide Hives,Urticaria High 02/14/2019 Watermelon Itching,Other (See comments) Low 08/14/2021 Itch and blotchy on chest and face Itch and blotchy on chest and face Medications ALPRAZolam (XANAX) 0.25 mg tablet Take 1 tablet (0.25 mg total) by mouth 3 (three) times a day as needed [address] (CYMBALTA) 60 mg capsule TAKE 1 CAPSULE(60 MG) BY MOUTH DAILY 9 Active alendronate (FOSAMAX) 70 mg tablet Take 150 mg by mouth every 30 (thirty) days 1 Active levothyroxine (SYNTHROID) 100 mcg tablet Take 1 tablet (100 mcg total) by mouth recreational vehicle repairer before breakfast 1 Active celecoxib (CeleBREX) 100 mg capsule TAKE 1 CAPSULE(100 MG) BY MOUTH TWICE DAILY 60 capsule 2 3 Active rosuvastatin (CRESTOR) 5 mg tablet Take 1 tablet (5 mg total) by mouth daily 3 Active aspirin 81 mg enteric coated tabletIndication s:prevention of thrombosis Take 1 tablet (81 mg total) by mouth 2 (two) times a day for 28 days Following 4 weeks you may resume taking both at the same time 56 tablet 3 Active isosorbide mononitrate ER (IMDUR) 60 mg 24 hr tablet Take 1 tablet (60 mg total) by mouth daily Active dilTIAZem XR (CARDIZEM CD,DILACOR XR) 240 mg 24 hr capsule Take 1 capsule (240 mg total) by mouth daily 30 capsule 3 4 Active apixaban (ELIQUIS) 5 mg tabletIndication s:atrial fibrillation Take 1 tablet (5 mg total) by mouth 2 (two) times a day 60 tablet 3 4 Active Additional Information Patient not taking.Reported on 08/14/2024 digoxin (LANOXIN) 250 mcg (0.25 mg) tablet Take 1 tablet (250 mcg total) by mouth daily 30 tablet 3 4 Active omeprazole (PriLOSEC) 40 mg capsule 4 Active docusate sodium (Colace) 100 mg capsuleIndicatio ns:constipation Take 1 capsule (100 mg total) by mouth 2 (two) times a day for 14 days 28 capsule 5 Active ondansetron (ZOFRAN) 4 mg tablet Take 1 tablet (4 mg total) by mouth every 6 (six) hours as needed for nausea or vomiting for up to 14 days 30 tablet 5 025 HYDROcodone-acet aminophen (NORCO) 5-325 mg per tabletIndication s:Pain Take 1 tablet by mouth every 6 (six) hours as needed for pain for up to 7 days 28 tablet 5 025 Active Problems Problem Noted Date Diagnosed Date Calculus of gallbladder with cholecystitis without biliary obstruction 08/14/2024 Assessment & Plan (08/14/2024 9:48 AM POWER DISTRIBUTION ENGINEER): The patient likely has chronic cholecystitis given the gallbladder wall thickening with a longstanding history of bloating and nausea. Given the symptoms the patient would like to proceed with cholecystectomy. She seems to be on anticoagulation for atrial fibrillation. We will obtain clearance from her primary care so that we may stop this in preparation. Postoperative issues such as post cholecystectomy diarrhea have been discussed. All questions answered. Nonrheumatic mitral valve regurgitation 11/25/19 24 Chronic atrial fibrillation 11/25/2023 ACS (acute coronary syndrome) ([facility]/HCC) 11/23/19 24 Persistent atrial fibrillation 11/22/2023 Assessment & Plan (11/22/2023 9:14 PM CDT): Initially Afib of RVR to 102, however now rate controlled. History of Afib not on any anticoagulation.ChadsVasc score >4. Currently on home aspirin and will start prophylactic Lovenox. On Tele and will continue to monitor. Hyperlipidemia 11/22/2023 Assessment & Plan (11/22/2023 9:15 PM CDT): On home med rosuvastatin 5 mg and zetia 10 mg. Will continue. Will consider increasing dose to 20 mg as past history of TIA. Depression 11/22/2023 Assessment & Plan (11/22/2023 9:16 PM CDT): Home med Cymbalta 60 mg. Will continue. Postoperative complication o f skin involving drainage from surgical wound 12/21/2022 Ruptured, tendon, quadriceps, left, initial enco unter 12/17/2022 Primary osteoarthritis of left knee 11/10/2022 S/P total knee arthroplasty, left 11/10/2022 ETOH abuse 09/01/2022 Closed fracture of left proximal humerus 022 Overview (04/23/2022): Added automatically from request for surgery [id number] Posterior tibial tendon dysfunction 03/02/2022 Flat foot 03/02/2022 Osteoarthritis 03/09/2021 Hx-TIA (transient ischemic attack) 03/20/2019 Gout 01/16/2019 Pain in left knee 01/16/2019 Anxiety 11/27/2018 Gastroesophageal reflux disease 11/27/2018 Hyperlipidemia 11/27/2018 Hypothyroid 11/27/2018 Assessment & Plan (11/22/2023 9:15 PM CDT): Continue home med synthroid. Osteoporosis 11/27/2018 Psoriatic arthritis 11/27/2018 Hypertensive encephalopathy 09/16/2018 Transaminitis 04/26/2018 Subacute liver failure without hepatic coma 02/28 Psoriatic arthritis 03/28/2018 Rheumatoid arthritis 01/04/2018 Assessment & Plan (09/19/2018 1:30 PM POWER DISTRIBUTION ENGINEER): Low disease activity today on exam. Take prednisone every other day for one month and then discontinue. She has appt tomorrow with PCP and I recommend additional dose of amlodipine today. ER if CP, severe GARCIA. Assessment & Plan (04/26/2018 12:44 PM CDT): Her inflammatory polyarthritis has been characterized by significant periarthritis and she has been serologically negative in the past. The presence of small inflammatory nodules could be consistent with rheumatoid nodules versus tophi verses granuloma annulare and I will repeat a rheumatoid factor and uric acid but if negative, I would refer her to Dermatology for excisional biopsy for a definitive diagnosis since her options of care for her inflammatory arthritis are quite limited with her hepatic dysfunction. She will take meloxicam and I would recommend that we taper her prednisone to 2-1/2 mg and increase her steroids at x of flare. Memory loss 08/12/2017 Oral ulcer 03/25/2017 Osteoporosis 02/12/2016 Frequent PVCs 10/30/2015 High risk medications (not anticoagulants) long- term use 10/23/2015 Depression, major, recurrent, mild 04/25/2015 Hypothyroidism 01/14/2015 HLD (hyperlipidemia) 05/17/2014 Hypertension 01/19/2013 Assessment & Plan (11/22/2023 8:57 PM CDT): Hx of HTN. On Imdur and Cardizem. Currently withheld due to soft BP. BP reviewed and stable 97/69-143/89. Will monitor vitals. Fibromyalgia 01/16/2012 Osteopenia 01/16/2012 Personal history of colonic polyps 12/06/2011 Overview (09/09/2020): Overview: Colonoscopy 11/01/2011 - adenoma - repeat in 5 years Personal history of colonic polyps 12/06/2011 Overview (03/09/2021): Colonoscopy 11/01/2011 - adenoma - repeat in 5 years Connective tissue disease overlap syndrome (CMS/ HCC) 06/15/2011 Essential hypertension, benign 06/15/2011 GERD (gastroesophageal reflux disease) 1 Immunocompromised 06/15/2011 Prolapse of female bladder, acquired 06/15/2011 Resolved Problems Problem Noted Date Diagnosed Date Resolved Date Hyponatremia 11/22/2023 11/25/2023 Assessment & Plan (11/22/2023 8:59 PM CDT): Initially hyponatremic of 128 with recently 125. Likely in the setting of suspected CHF. Will fluid restrict and give salt tablets 1g BID. Hypokalemia 11/22/2023 11/25/2023 Assessment & Plan (11/22/2023 9:01 PM CDT): Initial potasium of 2.8 and now 3.6 s/p repletion with 40 mEq of potasium. Will continue to trend with daily labs. Dyspnea 11/22/2023 11/25/2023 Assessment & Plan (11/22/2023 8:54 PM CDT): Suspect CHF vs COPD at this time in the setting of elevated BNP, history and physical exam finding. Initially noted to be wheezing in ED and Patient had an echo at outside facility however unable to obtain past records. Plan: Cardio consult TTE Lasix Diffuse connective tissue disease 01/18/2012 04/26/2018 Polyarthropathy 01/16/2012 04/26/2018 Immunizations Name Administration Dates Next Due Influenza, Unspecified 05/29/2022 Social History Tobacco Use Types Packs/Day Years Used Date Smoking Tobacco: Former Cigarettes Smokeless Tobacco: Never Tobacco Cessation:Counseling Given: No Alcohol Use Standard Drinks/Week Comments Yes 0 (1 standard drink = 0.6 oz pur e alcohol) occasional Humiliation, Afraid, Rape, and Kick questionnair e Answer Date Recorded Within the last year, have y ou been afraid of your partner or ex-partner? No 12/23/2022 Within the last year, have y ou been humiliated or emotionally abused in other ways by your partner or ex-partner? No Within the last year, have y ou been kicked, hit, slapped, or otherwise physically hurt by your partner or ex-partner? No 12/23/2022 Within the last year, have y ou been raped or forced to have any kind of sexual activity by your partner or ex-partner? No 12/23/2022 Social Connection and Isolat ion Panel [NHANES] Answer Date Recorded In a typical week, how many times do you talk on the phone with family, friends, or neighbors? More than three times a week 12/23/2022 How often do you get togethe r with friends or relatives? Three times a week 12/23/2022 How often do you attend chur ch or amish services? Never 12/23/2022 Do you belong to any clubs o r organizations such as rastafari groups, unions, fraternal or athletic groups, or school groups? No 12/23/2022 How often do you attend meet ings of the clubs or organizations you belong to? Never 12/23/2022 Are you , , di vorced, , never , or living with a partner? 12/23/2022 AUDIT-C Answer Date Recorded Q1: How often do you have a drink containing alc ohol? 2-3 times a week 09/10/2024 Q2: How many drinks containi ng alcohol do you have on a typical day when you are drinking? 3 or 4 09/10/2024 Q3: How often do you have si x or more drinks on one occasion? Less than monthly 09/10/2024 Overall Financial Resource Strain (CARDIA) Answe r Date Recorded How hard is it for you to pa y for the very basics like food, housing, medical care, and heating? Not hard at all 12/23/2022 PHQ-2 Answer Date Recorded PHQ-2 Total Score (If total score is 3 or more points, staff should administer the PHQ-9) 0 11/23/2023 [facility] - Occupational Stress Questionnaire Answer Date Recorded Do you feel stress - tense, restless, nervous, or anxious, or unable to sleep at night because your mind is troubled all the time - these days? To some extent 12/23/2022 Exercise Vital Sign Answer Date Recorde d On average, how many days pe r week do you engage in moderate to strenuous exercise (like a brisk walk)? 4 days 12/23/2022 On average, how many minutes do you engage in exercise at this level? 30 min 12/23/2022 Hunger Vital Sign Answer Date Recorded Within the past 12 months, y ou worried that your food would run out before you got the money to buy more. Never true 12/24/19 23 Within the past 12 months, t he food you bought just didn't last and you didn't have money to get more. Never true 12/23/2022 PRAPARE - Transportation Answer Date Re corded In the past 12 months, has l ack of transportation kept you from medical appointments or from getting medications? No 11/28 In the past 12 months, has l ack of transportation kept you from meetings, work, or from getting things needed for daily living? No 12/23/2022 Housing Stability Vital Sign Answer Rod e Recorded In the last 12 months, was t here a time when you were not able to pay the mortgage or rent on time? No 12/23/2022 In the last 12 months, how many places have you lived? 1 12/23/2022 In the last 12 months, was t here a time when you did not have a steady place to sleep or slept in a senior living (including now)? No 12/23/2022 Personal Safety Answer Date Recorded Have you ever been in or are you currently in a harmful physical or emotional relationship or is someone making you feel afraid or unsafe? Denies 09/10/2024 Comments No Sex and Gender Information Value Date Recorded Sex Assigned at Not on file Legal Sex Female 11:50 PM POWER DISTRIBUTION ENGINEER Gender Identity Not on file Sexual Orientation Not on file Last Filed Vital Signs Vital Sign Reading Time Taken Comments Blood Pressure 119/69 09/10/2024 2:00 PM POWER DISTRIBUTION ENGINEER Pulse 69 09/10/2024 2:00 PM POWER DISTRIBUTION ENGINEER Temperature 36.4 C (97.6 F) 09/10/2024 2:00 PM POWER DISTRIBUTION ENGINEER Respiratory Rate 16 09/10/2024 2:00 PM POWER DISTRIBUTION ENGINEER Oxygen Saturation 94% 09/10/2024 2:00 PM POWER DISTRIBUTION ENGINEER Inhaled Oxygen Concentration - - Weight 67.6 kg (149 lb 0.5 oz) 09/10/2024 8:15 A M POWER DISTRIBUTION ENGINEER Height 154.9 cm (5' 1 ) 09/10/2024 8:15 AM POWER DISTRIBUTION ENGINEER Body Mass Index 28.16 09/10/2024 8:15 AM POWER DISTRIBUTION ENGINEER Plan of Treatment Not on file Medical Devices Implanted Type Area Highway Painter Helper Device Identifier Shelf Expiration Date Model / Serial / Lot Exactech Restrictor Cement Cemex Small Od13mm Tpa-13 - [id number] Implanted:Qty: 1 on 05/04/2022 by Gavin Sewell MD at [facility] Left: Shoulder Ex[employer]ech 08/28/2023 TPA-13 / / [id number] Exactech Equinoxe Reverse Shoulder +0mm Tray Humeral Adapter 32010-00 - [id number] - [id number] Implanted:Qty: 1 on 05/04/2022 by Gavin Sewell MD at [facility] Ex[employer]ech [id number] 04/07/2032 320-1000 / [id number] / Exactech Equinoxe 40mm Small Reverse Constrain Shoulder +2.5mm Liner 320-40-13 - [id number] - [id number] Implanted:Qty: 1 on 05/04/2022 by Gavin Sewell MD at [facility] [employer] [facility] 01/31/2024 320-40-13 / [id number] / Exactech Equinoxe Lock Reverse Shoulder Glenosphere Screw Bone 320-15-05 - [id number] - [id number] Implanted:Qty: 1 on 05/04/2022 by Gavin Sewell MD at [facility] Left: Shoulder [employer]ech 03/09/2027 320-15- / [id number] / Exactech Reverse Torque Define Shoulder Kit Screw 320-20-00 - [id number] - [id number] Implanted:Qty: 1 on 05/04/2022 by Gavin Sewell MD at [facility] Left: Shoulder [employer] 02/03/2027 320-20-00 / [id number] / Ex[employer]ech Equinoxe Small Reverse Superior Posterior Augment Shoulder Left 320-35-07 - [id number] - [id number] Implanted:Qty: 1 on 05/04/2022 by Gavin Sewell MD at [facility] Left: Shoulder [employer] [id number] 04/08/2031 320-35-07 / [id number] / Exactech Equinoxe 10mm Stem Humeral Sterile 300-09-07 - [id number] - [id number] Implanted:Qty: 1 on 05/04/2022 by Gavin Sewell MD at [facility] Left: Shoulder [employer]ech [id number] 09/07/2031 300-09-07 / [id number] / [employer] Cement Bone Simplex Gentamicin High Viscosity 40gm 6195-1-001 - [id number] Implanted:Qty: 1 on 05/04/2022 by Gavin Sewell MD at [facility] Left: Shoulder [employer] 09/28/2023 6195-1-001 / / [id number] Exactech Equinoxe 40mm 24.3mm Small Reverse Shoulder Sphere Glenoid 320-31-40 - [id number] - [id number] Implanted:Qty: 1 on 05/04/2022 by Gavin Sewell MD at [facility] Left: Shoulder [employer]ech [id number] 12/11/2030 320-31-40 / [id number] / Ex[employer]ech Equinoxe 4.5mm 38mm Kit Compression Lock Cap Reverse Shoulder 320-20-38 - [id number] - [id number] Implanted:Qty: 1 on 05/04/2022 by Gavin Sewell MD at [facility] Left: Shoulder [employer] [id number] 01/12/2027 320-20-38 / [id number] / Exactech Equinoxe 4.5mm 34mm Kit Compression Lock Cap Reverse Shoulder 320-20-34 - [id number] - [id number] Implanted:Qty: 1 on 05/04/2022 by Gavin Sewell MD at [facility] Left: Shoulder Ex[employer]ech [id number] 07/14/2026 320-20-34 / [id number] / [employer] Insert Tibial Knee Fixed Lm Posterior Stabilized Attune 7mm Size 5 Polyethylene [id number] - [id number] Implanted:Qty: 1 on 11/10/2022 by Gavin Sewell MD at [facility] Left: Knee [employer] 07/28/2030 [id number] / / [id number] [employer] Attune Cruciate Retain Cementless Knee Left 5 Component Femoral [id number] - [id number] Implanted:Qty: 1 on 11/10/2022 by Gavin Sewell MD at [facility] Left: Knee [employer] 04/28/2032 [id number] / / [id number] [employer] Attune Fb Tib Base Sz 5 Por [id number] - [id number] Implanted:Qty: 1 on 11/10/2022 by Gavin Sewell MD at [facility] Left: Knee [employer] 03/28/2032 [id number] / / [id number] Procedures Procedure Name Priority Date/Time Associated Diagnosis Comments SURGICAL PATHOLOGY Routine 09/10/2024 10:29 AM POWER DISTRIBUTION ENGINEER Calculus of gallbladder with cholecystitis without biliary obstruction, unspecified cholecystitis acuity ME AN ELECTIVE ENDOTRACHEAL AIRWAY Routine 09/10/2024 9:36 AM POWER DISTRIBUTION ENGINEER LAPAROSCOPIC CHOLECYSTECTOMY 09/10/2024 9:02 AM POWER DISTRIBUTION ENGINEER Calculus of gallbladder with cholecystitis without biliary obstruction, unspecified cholecystitis acuity EGFR STAT 09/10/2024 8:47 AM POWER DISTRIBUTION ENGINEER DIFFERENTIAL AUTO STAT 09/10/2024 8:4 7 AM POWER DISTRIBUTION ENGINEER ANTIBODY SCREEN STAT 09/10/2024 8:47 AM POWER DISTRIBUTION ENGINEER ABO/RH STAT 09/10/2024 8:47 AM POWER DISTRIBUTION ENGINEER TYPE AND SCREEN STAT 09/10/2024 8:47 AM POWER DISTRIBUTION ENGINEER CBC WITH AUTO DIFFERENTIAL STAT 09/10/2024 8:47 AM POWER DISTRIBUTION ENGINEER COMPREHENSIVE METABOLIC PANEL STAT 09/10/2024 8:47 AM POWER DISTRIBUTION ENGINEER B ABO / RH CONFIRMATION TESTING STAT 09/10/2024 8:45 AM POWER DISTRIBUTION ENGINEER US ABDOMEN COMPLETE Schedule Routine, Read Routine (OP Routine) 07/24/2024 9:00 AM POWER DISTRIBUTION ENGINEER Hepatomegaly XR CHEST 1 VIEW ED 07/22/2024 9:06 AM POWER DISTRIBUTION ENGINEER EGFR STAT 07/22/2024 8:48 AM POWER DISTRIBUTION ENGINEER DIFFERENTIAL AUTO STAT 07/22/2024 8:4 8 AM POWER DISTRIBUTION ENGINEER MAGNESIUM Routine 07/22/2024 8:48 AM POWER DISTRIBUTION ENGINEER COMPREHENSIVE METABOLIC PANEL STAT 07/22/2024 8:48 AM POWER DISTRIBUTION ENGINEER CBC WITH AUTO DIFFERENTIAL STAT 07/22/2024 8:48 AM POWER DISTRIBUTION ENGINEER INFLUENZA A/B, RSV, AND COVID-19 PCR Routine 07/22/2024 8:41 AM POWER DISTRIBUTION ENGINEER SERUM HEPATITIS C AB Routine 11/01/2014 8:32 AM POWER DISTRIBUTION ENGINEER DIGITAL MAMMOGRAPHY Routine 12/11/2013 11:01 AM CDT from Last 3 Months or Most Recently Relevant to Health Maintenance Results * Surgical pathology (09/10/2024 10:29 AM POWER DISTRIBUTION ENGINEER) Tissue (Gallbladder) 09/10/2024 9:51 AM POWER DISTRIBUTION ENGINEER Narrative PATHOLOGY [facility] ([facility]) - 09/11/2024 3:50 PM POWER DISTRIBUTION ENGINEER EPIC results best viewed via link to PDF [facility] Department of Pathology [address] [place] [id number] Note to Patients: This report may contain a detailed description of human tissue sent by a health care provider to the laboratory for pathologic evaluation. The content of this report is essential for diagnosis and may provide important critical findings. This information may be unfamiliar to patients to review without a medical professional present. It is advised that the patient review this report in the presence of a health care provider who can answer questions and explain the details. Final Report Patient Name: ANTOINETTE DELANEY Address: [address] [place] [address] Gender: F : 1960 (Age: 64) Service: Surgery Location: [facility] Hospital #: [id number] Patient Type: [facility] Taken: 09/10/2024 Received: 09/10/2024 Accessioned: 09/10/2024 Reported: 09/11/2024 Physician(s):Vignesh Hawkins MD Diagnosis: A. Gallbladder, laparoscopic cholecystectomy- Chronic cholecystitis, mild Cholelithiasis Anyi Bain M.D. Report Electronically Reviewed and Signed Out By Anyi Bain M.D. 09/11/2024 15:50:12 Specimen(s) Received: A: Gallbladder Microscopic Description: Microscopic examination corroborates the diagnosis. Clinical History: Calculus of gallbladder with cholecystitis without biliary obstruction. Laparoscopic cholecystectomy. Gross Description: The specimen is received in a single container labeled ANTOINETTE DELANEY and gallbladder . It is a gallbladder that measures 6.5 x 3 cm. The serosa is pink-jalloh and smooth. The wall measures up to 0.2 cm in thickness. The lumen contains green brown bile and 1 green stone measuring 5 mm. The mucosa is green velvety. The bile duct margin is inked blue. Represented in one cassette. Alvino Haskins R.N., P.A./Van Logan M.D. REPORT IMAGES AND SCANNED DOCUMENTS, IF INCLUDED, ONLY VIEWABLE IN PDF VERSION OF REPORT The performance characteristics of some immunohistochemical stains, fluorescence in-situ hybridization tests and immunophenotyping by flow cytometry cited in this report (if any) were determined by the Surgical Pathology Department at [facility] as part of an ongoing quality assurance practice manager program and in compliance with federally mandated regulations drawn from the Clinical Laboratory Improvement Act of 1988 (CLIA '88). Some of these tests rely on the use of analyte specific reagents and are subject to specific labeling requirements by the US Food and Drug Administration. Such diagnostic tests may only be performed in a facility that is certified by the Department of Health and Human Services as a high complexity laboratory under CLIA '88. The FDA has determined that such clearance or approval is not necessary. This test is used for clinical purposes. It should not be regarded as investigational or for research. Nevertheless, federal rules concerning the medical use of analyte specific reagents require that the following disclaimer be attached to the report: This test was developed and its performance characteristics determined by the Surgical Pathology Department [facility]. It has not been cleared or approved by the U. S. Food and Drug Administration. Note for decalcified specimens: This assay has not been validated on decalcified tissues. Results should be interpreted with caution given the possibility of false negativity on decalcified specimens us Vignesh Hawkins MD LAB PATHOLOGY OR DERABLES Final Result Performing Organization Address City/State/[facility] Co de Phone Number PATHOLOGY [facility] [address] [place] [phone] * ME AN ELECTIVE ENDOTRACHEAL AIRWAY (09/10/2024 9:36 AM POWER DISTRIBUTION ENGINEER) Narrative Cliff Davis CRNA - 09/10/2024 9:36 AM POWER DISTRIBUTION ENGINEER Cliff Davis CRNA 09/10/2024 9:37 AM Airway Patient location: OR Urgency: elective Indications for airway management: anesthesia and airway protection Difficult airway: no Staff: Placed by: MICAH: Cliff Davis CRNA Emergent airway documentation: Risks and benefits discussed: yes Consent obtained: yes Consent given by: patient Airway prep: Preoxygenated: yes Patient position: sniffing Mask difficulty assessment: 1 - vent by mask Spontaneous ventilation during airway: absent Sedation level during airway: GA Final airway details: Final airway type: endotracheal airway Tube type: ETT ETT size: 7.0 mm Cuffed: yes Technique used for successful ETT placement: direct laryngoscopy Devices/Methods used in placement: intubating stylet Insertion site: oral Blade type: Rose Blade size: 3 Cormack-Lehane (direct): grade I - full view of glottis Cuff volume: 5 mL Cuff inflated with: air ETT to lips: 21 cm Placement verified by: auscultation and CO2 detection Airway secured with: silk tape Number of attempts: 1 Planned trial extubation: yes Additional comments: Atraumatic intubation. No GERD sx today. Dentition same as preop. us Tonia Gutierrez MD ANESTHESIA ORDERABLES Fi nal Result * eGFR (09/10/2024 8:47 AM POWER DISTRIBUTION ENGINEER) eGFR >90 >=60 mL/min/1. 73 m2 Comment: Interpretive Data Reference Interval Normal >/= 90 mL/min/1.73m2 Mildly decreased* 60 - 89 mL/min/1.73m2 Mildly to moderately decreased 45 - 59 mL/min/1.73m2 Moderately to severely decreased 30 - 44 mL/min/1.73m2 Severely decreased 15 - 29 mL/min/1.73m2 Kidney Failure < 15 mL/min/1.73m2 *Relative to young adult level Estimated glomerular filtration rate is determined by the 2020 CKD-EPI equation recommended by the National Kidney Foundation (A Unifying Approach to GFR Estimation: Recommendations of the NKF-ASK Task Force on Reassessing the Inclusion of Race in Diagnosing Kidney Disease, JASN 2020). The CKD-EPI equation should not be used for patients with unstable renal function and has not been validated in children and those over 70. Current interpretive data was last reviewed 2021. Blood 09/10/2024 8:47 AM POWER DISTRIBUTION ENGINEER 09/10/2024 8:50 AM POWER DISTRIBUTION ENGINEER Vignesh Hawkins MD LAB BLOOD ORDERA BLES Final Result [facility] ([place]) [facility] Department [place] [address] * Differential, auto (09/10/2024 8:47 AM POWER DISTRIBUTION ENGINEER) Neutrophil abs 5.3 1.5 - 6.5 K/cumm Imm gran abs 0.0 0.0 - 0.1 K/cumm [facility] ([place]) Lymphocyte abs 0.8 0.8 - 3.3 K/cumm [facility]) Monocyte abs 0.6 0.2 - 0.8 K/cumm [facility] ([place]) Eosinophil abs 0.3 0.0 - 0.5 K/cumm [facility] ([place]) Basophil abs 0.1 0.0 - 0.1 K/cumm [facility] ([place]) Neutrophil pct 74.8 % [facility] Comment: Interpretive Data Percent cell count reference ranges are not reported, since discordance with absolute values may lead to misinterpretation of CBC data. Current Interpretive Data was last revised on 2017. Imm gran pct 0.4 % [facility] ([place]) Comment: Interpretive Data Percent cell count reference ranges are not reported, since discordance with absolute values may lead to misinterpretation of CBC data. Current Interpretive Data was last revised on 2017. Lymphocyte pct 11.7 % [facility]) Comment: Interpretive Data Percent cell count reference ranges are not reported, since discordance with absolute values may lead to misinterpretation of CBC data. Current Interpretive Data was last revised on 2017. Monocyte pct 8.6 % [facility] ([place]) Comment: Interpretive Data Percent cell count reference ranges are not reported, since discordance with absolute values may lead to misinterpretation of CBC data. Current Interpretive Data was last revised on 2017. Eosinophil pct 3.7 % [facility] Comment: Interpretive Data Percent cell count reference ranges are not reported, since discordance with absolute values may lead to misinterpretation of CBC data. Current Interpretive Data was last revised on 2017. Basophil pct 0.8 % [facility] ([place]) Comment: Interpretive Data Percent cell count reference ranges are not reported, since discordance with absolute values may lead to misinterpretation of CBC data. Current Interpretive Data was last revised on 2017. Blood 09/10/2024 8:4 7 AM POWER DISTRIBUTION ENGINEER 09/10/2024 8:50 AM POWER DISTRIBUTION ENGINEER us Vignesh Hawkins MD LAB BLOOD ORDERA BLES Final Result [facility] ([place] Department [place] [address] * (ABNORMAL) CBC with auto differential (09/10/2024 8:47 AM POWER DISTRIBUTION ENGINEER) WBC 7.1 3.8 - 9.9 K/cumm Hgb 11.7(L) 11.9 - 15.5 g/dL [facility] ([place]) Hct 35.2(L) 35.6 - 45.5 % [facility]) Plt 278 150 - 400 K/cumm [facility] ([place]) MPV 9.1 9.1 - 12.3 fL [facility]) RBC 4.25 3.90 - 5.20 M/cumm [facility]) MCV 82.8 81.3 - 96.4 fL [facility] ([place]) MCH 27.5 27.1 - 33.3 pg [facility]) MCHC 33.2 32.3 - 35.7 g/dL [facility] ([place]) RDW CV 16.2(H) 11.1 - 14.9 % [facility]) RDW SD 47.5 35.7 - 48.1 fL [facility]) NRBC abs 0.00 0.00 - 0.01 K/cumm [facility]) Blood 09/10/2024 8:47 AM POWER DISTRIBUTION ENGINEER 09/10/2024 8:50 AM POWER DISTRIBUTION ENGINEER Vignesh Hawkins MD LAB BLOOD ORDERA BLES Final Result [facility] [place] [address] * ABO/Rh (09/10/2024 8:47 AM POWER DISTRIBUTION ENGINEER) ABO/Rh B Positive Blood 09/10/2024 8:47 AM POWER DISTRIBUTION ENGINEER 09/10/2024 8:49 AM POWER DISTRIBUTION ENGINEER Narrative [facility] ([place]) - 09/10/2024 9:11 AM POWER DISTRIBUTION ENGINEER Has the patient had Daratumumab or Isatuximab in the past 6 months?->Unknown Vignesh Hawkins MD LAB BLOOD BANK T EST ORDERABLES Final Result [facility] ([place] Department [place] [address] * Antibody screen (09/10/2024 8:47 AM POWER DISTRIBUTION ENGINEER) [facility] Lonnie, indirect, Gel Interpretation Negative ABSC Blood 09/10/2024 8:47 AM POWER DISTRIBUTION ENGINEER 09/10/2024 8:49 AM POWER DISTRIBUTION ENGINEER Narrative [facility] - 09/10/2024 9:25 AM POWER DISTRIBUTION ENGINEER Has the patient had Daratumumab or Isatuximab in the past 6 months?->Unknown us Vignesh Hawkins MD LAB BLOOD BANK T EST ORDERABLES Final Result [facility] ([place] Department [place] [address] * (ABNORMAL) Comprehensive metabolic panel (09/10/2024 8:47 AM POWER DISTRIBUTION ENGINEER) [facility] Sodium 133(L) 135 - 145 mmol/L Comment:sandra moreno(AMB SUrg) Potassium, pl 2.9(C) 3.3 - 4.9 mmol/L [facility] ([place]) Comment:Critical Result call ed by [email or web address] at 2024-09-10 09:18:13. Result Read Back by sandra moreno(AMB SUrg) Chloride 94(L) 97 - 110 mmol/L [facility] Comment:sandra moreno(AMB SUrg) CO2 25 22 - 32 mmol/L [facility] ([place]) Comment:sandra moreno(AMB SUrg) Anion gap 14 2 - 15 mmol/L [facility] Comment:sandra moreno(AMB SUrg) BUN 12 6 - 25 mg/dL [facility] Comment:sandra moreno(AMB SUrg) Creatinine 0.68 0.60 - 1.10 mg/dL [facility] ([place]) Comment:sandra moreno(AMB SUrg) Glucose 121 70 - 199 mg/dL [facility] ([place]) Comment: sandra moreno(AMB SUrg) Interpretive Data Fasting glucose >/= 126 mg/dl is diagnostic for diabetes. Fasting is defined as no caloric intake for at least 8 hours. Fasting glucose between 100 mg/dl to 125 mg/dl is diagnostic of prediabetes. In a patient with classic symptoms of hyperglycemia or hyperglycemic crisis, a random glucose >/= 200 mg/dl is diagnostic for diabetes. In the absence of unequivocal hyperglycemia, results should be confirmed by repeat testing. The classification and Diagnosis of Diabetes Diabetes Care 2021; 46: S19-S40. Current interpretive data was last revised 2022. Calcium 9.5 8.5 - 10.3 mg/dL [facility] ([place]) Comment:sandra moreno(AMB SUrg) Bilirubin, total 0.7 0.1 - 1.2 mg/dL [facility] ([place]) Comment:sandra cisnerosr(AMB SUrg) Protein, pl 7.5 6.5 - 8.5 g/dL [facility] ([place]) Comment:sandra josh(AMB SUrg) Albumin 3.9 3.5 - 5.0 g/dL [facility] ([place]) Comment:sandra cisnerosr(AMB SUrg) Alk phos 126 40 - 130 Units/L [facility] ([place]) Comment:sandra josh(AMB SUrg) ALT 23 7 - 45 Units/L [facility] ([place]) Comment:sandra josh(AMB SUrg) AST 30 10 - 45 Units/L [facility] ([place]) Comment:sandra cisnerosr(AMB SUrg) Blood 09/10/2024 8:47 AM POWER DISTRIBUTION ENGINEER 09/10/2024 8:50 AM POWER DISTRIBUTION ENGINEER us Vignesh Hawkins MD LAB BLOOD ORDERA BLES Final Result [facility] ([place]) [facility] Department [place] [address] * ABO / Rh Confirmation Testing (09/10/2024 8:45 AM POWER DISTRIBUTION ENGINEER) ABO/Rh Confirmation B Positive [facility] Blood 09/10/2024 8:45 AM POWER DISTRIBUTION ENGINEER 09/10/2024 9:13 AM POWER DISTRIBUTION ENGINEER Vignesh Hawkins MD LAB BLOOD ORDERA BLES Final Result [facility] ([place]) [facility] Department [place] [address] [facility] * US Abdomen Complete (07/24/2024 9:00 AM POWER DISTRIBUTION ENGINEER) Anatomical Region Laterality Modality Abdomen N/A Ultrasound 07/27/2024 3:45 PM POWER DISTRIBUTION ENGINEER Narrative 07/27/2024 3:47 PM POWER DISTRIBUTION ENGINEER EXAM DESCRIPTION: US ABDOMEN COMPLETE REASON FOR STUDY: Hepatomegaly. TECHNIQUE: Dynamic and static images acquired of the abdomen and recorded on PACS. Additional selected color Doppler and spectral images recorded. COMPARISON: None available. FINDINGS: PANCREAS: Visualized portions of the pancreas are within normal limits. Portions of the pancreatic body and tail are obscured due to bowel gas. LIVER: An accurate measurement of the liver size could not be provided. The setter machine indicated that real-time the liver appears enlarged. Liver is increased in echogenicity. There is no focal hepatic lesion. LIVER VASCULATURE: Normal directional flow of the main portal and hepatic veins. GALLBLADDER: Echogenic shadowing gallstone. Mild gallbladder wall thickening 0.3 cm. No pericholecystic fluid. Filter Pulp Washer reports a negative sonographic Tom's sign. BILIARY: No intrahepatic ductal dilatation. Common bile duct measures 0.7 cm. INFERIOR VENA CAVA: Unremarkable. AORTA: No abdominal aortic aneurysm. RIGHT KIDNEY: Kidney measures 11.3 cm. There is normal echogenicity and normal cortical thickness. There is no hydronephrosis. No cystic or solid mass. LEFT KIDNEY: Kidney measures 11.1 cm. There is normal echogenicity and normal cortical thickness. There is no hydronephrosis. No cystic or solid mass. SPLEEN: Measures 9.2 cm with no focal lesion. PERITONEAL AND PLEURAL SPACES: No ascites or pleural effusion. OTHER: No other significant abnormality. IMPRESSION: Cholelithiasis with mild gallbladder wall thickening. No other features of acute cholecystitis. If further assessment were needed, could consider HIDA scan. Hepatic steatosis and hepatomegaly. THIS IS AN ELECTRONICALLY VERIFIED FINAL REPORT 07/27/2024 3:47 PM - Electronically signed by Kenny Zacarias M.D. CH: BHARTI Report ID: [id number] Reading Location: [id number] Procedure Note Kenny Zacarias Jr., MD - 07/27/2024 EXAM DESCRIPTION: US ABDOMEN COMPLETE REASON FOR STUDY: Hepatomegaly. TECHNIQUE: Dynamic and static images acquired of the abdomen and recordedon PACS. Additional selected color Doppler and spectral images recorded. COMPARISON: None available. FINDINGS: PANCREAS: Visualized portions of the pancreas are within normal limits. Portions of the pancreatic body and tail are obscured due to bowel gas. LIVER: An accurate measurement of the liver size could not be provided.The setter machine indicated that real-time the liver appears enlarged. Liver is increased in echogenicity. There is no focal hepatic lesion. LIVER VASCULATURE: Normal directional flow of the main portal and hepatic veins. GALLBLADDER: Echogenic shadowing gallstone. Mild gallbladder wallthickening 0.3 cm. No pericholecystic fluid. Filter Pulp Washer reports a negativesonographic Tom's sign. BILIARY: No intrahepatic ductal dilatation. Common bile duct measures 0.7 cm. INFERIOR VENA CAVA: Unremarkable. AORTA: No abdominal aortic aneurysm. RIGHT KIDNEY: Kidney measures 11.3 cm. There is normal echogenicity and normal cortical thickness. There is no hydronephrosis. No cystic or solid mass. LEFT KIDNEY: Kidney measures 11.1 cm. There is normal echogenicity and normal cortical thickness. There is no hydronephrosis. No cystic or solid mass. SPLEEN: Measures 9.2 cm with no focal lesion. PERITONEAL AND PLEURAL SPACES: No ascites or pleural effusion. OTHER: No other significant abnormality. IMPRESSION: Cholelithiasis with mild gallbladder wall thickening. No other featuresof acute cholecystitis. If further assessment were needed, could considerHIDA scan. Hepatic steatosis and hepatomegaly. THIS IS AN ELECTRONICALLY VERIFIED FINAL REPORT 07/27/2024 3:47 PM - Electronically signed by Kenny Zacarias M.D. CH: BHARTI Report ID: [id number] Reading Location: [id number] us Mariah Adams MD IMG US PROCEDURES Final Result * XR Chest 1 View (07/22/2024 9:06 AM POWER DISTRIBUTION ENGINEER) Anatomical Region Laterality Modality Body, Chest N/A Computed Radiogr aphy 07/22/2024 9:09 AM POWER DISTRIBUTION ENGINEER Narrative 07/22/2024 9:11 AM POWER DISTRIBUTION ENGINEER EXAM DESCRIPTION: XR CHEST 1 VIEW REASON FOR STUDY: chest pain Pt states she has been sick for 5 days. Pt states she cannot breath, weak, cough. TECHNIQUE: Single radiographic view(s) of the chest. COMPARISON: Chest radiograph 11/22/2023 FINDINGS: The heart appears normal in size. There is stable mild lingular opacity which could be due to atelectasis or scarring. No new airspace consolidation or pleural effusion is seen. There is reverse left shoulder arthroplasty hardware IMPRESSION: No acute findings. Stable lingular atelectasis or scarring. THIS IS AN ELECTRONICALLY VERIFIED FINAL REPORT 07/22/2024 9:11 AM - Electronically signed by Morgan Dong M.D., JR: Report ID: [id number] Reading Location: [id number] Procedure Note Morgan Dong MD - 07/22/2024 EXAM DESCRIPTION: XR CHEST 1 VIEW REASON FOR STUDY: chest pain Pt states she has been sick for 5 days. Pt states she cannot breath,weak, cough. TECHNIQUE: Single radiographic view(s) of the chest. COMPARISON: Chest radiograph 11/22/2023 FINDINGS: The heart appears normal in size. There is stable mild lingular opacitywhich could be due to atelectasis or scarring. No new airspace consolidation or pleural effusion is seen. There is reverse left shoulder arthroplasty hardware IMPRESSION: No acute findings. Stable lingular atelectasis or scarring. THIS IS AN ELECTRONICALLY VERIFIED FINAL REPORT 07/22/2024 9:11 AM - Electronically signed by Morgan Dong M.D. JR: Report ID: [id number] Reading Location: [id number] Mike Suarez MD IMG XR PROCEDURES Final Resu lt * eGFR (07/22/2024 8:48 AM POWER DISTRIBUTION ENGINEER) eGFR 86 >=60 mL/min/1. 73 m2 Comment: Interpretive Data Reference Interval Normal >/= 90 mL/min/1.73m2 Mildly decreased* 60 - 89 mL/min/1.73m2 Mildly to moderately decreased 45 - 59 mL/min/1.73m2 Moderately to severely decreased 30 - 44 mL/min/1.73m2 Severely decreased 15 - 29 mL/min/1.73m2 Kidney Failure < 15 mL/min/1.73m2 *Relative to young adult level Estimated glomerular filtration rate is determined by the 2020 CKD-EPI equation recommended by the National Kidney Foundation (A Unifying Approach to GFR Estimation: Recommendations of the NKF-ASK Task Force on Reassessing the Inclusion of Race in Diagnosing Kidney Disease, JASN 2020). The CKD-EPI equation should not be used for patients with unstable renal function and has not been validated in children and those over 70. Current interpretive data was last reviewed 2021. Blood 07/22/2024 8:48 AM POWER DISTRIBUTION ENGINEER 07/22/2024 8:50 AM POWER DISTRIBUTION ENGINEER Mike Suarez MD LAB BLOOD ORDERABLES Final R esult [facility] ([place]) [facility] Department [place] [address] * (ABNORMAL) Differential, auto (07/22/2024 8:48 AM POWER DISTRIBUTION ENGINEER) Neutrophil abs 9.0(H) 1.5 - 6.5 K/cumm Imm gran abs 0.0 0.0 - 0.1 K/cumm [facility] ([place]) Lymphocyte abs 0.6(L) 0.8 - 3.3 K/cumm [facility] ([place]) Monocyte abs 0.6 0.2 - 0.8 K/cumm [facility] ([place]) Eosinophil abs 0.0 0.0 - 0.5 K/cumm [facility] ([place]) Basophil abs 0.0 0.0 - 0.1 K/cumm [facility] ([place]) Neutrophil pct 87.3 % [facility]) Comment: Interpretive Data Percent cell count reference ranges are not reported, since discordance with absolute values may lead to misinterpretation of CBC data. Current Interpretive Data was last revised on 2017. Imm gran pct 0.4 % [facility] ([place]) Comment: Interpretive Data Percent cell count reference ranges are not reported, since discordance with absolute values may lead to misinterpretation of CBC data. Current Interpretive Data was last revised on 2017. Lymphocyte pct 5.7 % [facility] ([place]) Comment: Interpretive Data Percent cell count reference ranges are not reported, since discordance with absolute values may lead to misinterpretation of CBC data. Current Interpretive Data was last revised on 2017. Monocyte pct 5.8 % [facility] ([place]) Comment: Interpretive Data Percent cell count reference ranges are not reported, since discordance with absolute values may lead to misinterpretation of CBC data. Current Interpretive Data was last revised on 2017. Eosinophil pct 0.4 % [facility] ([place]) Comment: Interpretive Data Percent cell count reference ranges are not reported, since discordance with absolute values may lead to misinterpretation of CBC data. Current Interpretive Data was last revised on 2017. Basophil pct 0.4 % [facility] ([place]) Comment: Interpretive Data Percent cell count reference ranges are not reported, since discordance with absolute values may lead to misinterpretation of CBC data. Current Interpretive Data was last revised on 2017. Blood 07/22/2024 8:48 AM POWER DISTRIBUTION ENGINEER 07/22/2024 8:50 AM POWER DISTRIBUTION ENGINEER us Mike Suarez MD LAB BLOOD ORDERABLES Final R esult [facility] ([place]) [facility] Department [place] [address] * (ABNORMAL) CBC with auto differential (07/22/2024 8:48 AM POWER DISTRIBUTION ENGINEER) WBC 10.3(H) 3.8 - 9.9 K/cumm Hgb 11.8(L) 11.9 - 15.5 g/dL [facility] ([place]) Hct 35.7 35.6 - 45.5 % [facility]) Plt 346 150 - 400 K/cumm [facility]) MPV 9.2 9.1 - 12.3 fL [facility]) RBC 4.44 3.90 - 5.20 M/cumm [facility] ([place]) MCV 80.4(L) 81.3 - 96.4 fL [facility]) MCH 26.6(L) 27.1 - 33.3 pg [facility]) MCHC 33.1 32.3 - 35.7 g/dL [facility] ([place]) RDW CV 15.0(H) 11.1 - 14.9 % [facility]) RDW SD 43.5 35.7 - 48.1 fL [facility] ([place]) NRBC abs 0.00 0.00 - 0.01 K/cumm [facility] ([place]) Blood 07/22/2024 8:48 AM POWER DISTRIBUTION ENGINEER 07/22/2024 8:50 AM POWER DISTRIBUTION ENGINEER Mike Suarez MD LAB BLOOD ORDERABLES Final R esult Performing Organization Address City/[facility]/ZIP Co de Phone Number [facility] ([place]) [facility] Department [place] [address] * Magnesium (07/22/2024 8:48 AM POWER DISTRIBUTION ENGINEER) Magnesium 1.6 1.4 - 2.5 mg/dL Comment:Anai Truong (ER) Blood 07/22/2024 8:48 AM POWER DISTRIBUTION ENGINEER 07/22/2024 8:50 AM POWER DISTRIBUTION ENGINEER Mike Suarez MD LAB BLOOD ORDERABLES Final R esult [facility] ([place]) [address] Department [place] [address] * (ABNORMAL) Comprehensive metabolic panel (07/22/2024 8:48 AM POWER DISTRIBUTION ENGINEER) Sodium 130(L) 135 - 145 mmol/L Comment:Anai Truong (ER) Potassium, pl 3.0(C) 3.3 - 4.9 mmol/L [facility] ([place]) Comment:Critical Result call ed by [email or web address] at 2024-07-22 09:20:43. Result Read Back by Anai Truong (ER) Chloride 89(L) 97 - 110 mmol/L [facility] ([place]) Comment:Anai Truong (ER) CO2 28 22 - 32 mmol/L [facility]) Comment:Anai Truong (ER) Anion gap 13 2 - 15 mmol/L [facility] ([place]) Comment:Anai Truong (ER) BUN 10 6 - 25 mg/dL [facility]) Comment:Anai Truong (ER) Creatinine 0.78 0.60 - 1.10 mg/dL [facility]) Comment:Anai Truong (ER) Glucose 139 70 - 199 mg/dL [facility] Comment: Anai Truong (ER) Interpretive Data Fasting glucose >/= 126 mg/dl is diagnostic for diabetes. Fasting is defined as no caloric intake for at least 8 hours. Fasting glucose between 100 mg/dl to 125 mg/dl is diagnostic of prediabetes. In a patient with classic symptoms of hyperglycemia or hyperglycemic crisis, a random glucose >/= 200 mg/dl is diagnostic for diabetes. In the absence of unequivocal hyperglycemia, results should be confirmed by repeat testing. The classification and Diagnosis of Diabetes Diabetes Care 2021; 46: S19-S40. Current interpretive data was last revised 2022. Calcium 9.7 8.5 - 10.3 mg/dL [facility] ([place]) Comment:Anai Truong (ER) Bilirubin, total 0.6 0.1 - 1.2 mg/dL [facility] ([place]) Comment:Anai Truong (ER) Protein, pl 8.2 6.5 - 8.5 g/dL [facility]) Comment:Anai Truong (ER) Albumin 4.1 3.5 - 5.0 g/dL [facility] Comment:Anai Truong (ER) Alk phos 162(H) 40 - 130 Units/L [facility] ([place]) Comment:Anai Truong (ER) ALT 18 7 - 45 Units/L [facility]) Comment:Anai Truong (ER) AST 29 10 - 45 Units/L [facility] Comment:Anai Truong (ER) Blood 07/22/2024 8:48 AM POWER DISTRIBUTION ENGINEER 07/22/2024 8:50 AM POWER DISTRIBUTION ENGINEER Mike Suarez MD LAB BLOOD ORDERABLES Final R esult [facility] ([place]) [facility] Department [place] [address] * Influenza A/B, RSV, and COVID-19 PCR Nasopharyngeal (07/22/2024 8:41 AM POWER DISTRIBUTION ENGINEER) COVID-19 RNA Negative Negative Influenza A RNA Negative Negative [facility]) Influenza B RNA Negative Negative [facility] RSV RNA Negative Negative [facility] Comment: Interpretive data: Testing performed by [facility]. This test is performed using the [employer] Xpert Xpress CoV-2/Flu/RSV plus assay. This is a multiplex, real- time reverse transcriptase PCR assay intended for the qualitative detection of nucleic acid from SARS-CoV-2, influenza A, influenza B, and respiratory syncytial virus. This assay has been cleared by the [place] Food and Drug administration. The performance characteristics have been verified by the [facility]. Results must be considered in the clinical context, and a negative result does not rule out infection. Interpretive Data last revised 2023 Nasopharyngeal 07/22/2024 8: 41 AM POWER DISTRIBUTION ENGINEER 07/22/2024 8:43 AM POWER DISTRIBUTION ENGINEER Narrative [facility] ([place]) - 07/22/2024 9:24 AM POWER DISTRIBUTION ENGINEER Is the Patient experiencing symptoms consistent with COVID?->Yes Mike Suarez MD LAB MICROBIOLOGY - GENERAL O RDERABLES Final Result [facility] ([place]) [facility] Department [place] [address] * Serum Hepatitis C ab (11/01/2014 8:32 AM POWER DISTRIBUTION ENGINEER) HCV ab Negative NEG HISTORICAL RESULTS Serum 11/01/2014 8:32 AM POWER DISTRIBUTION ENGINEER Narrative HISTORICAL RESULTS - 11/02/2014 3:46 AM POWER DISTRIBUTION ENGINEER Interpretive Data If confirmation is required, call Laboratory Customer Service to request sample to be sent to [facility] for Hepatitis C Virus (HCV) RNA Detection and Quantitation by Real-Time Reverse Automotive Salesperson-PCR (RT-PCR). Current interpretive data was last revised on 2011 Fariha Whitley MD LAB BLOOD ORDERABLES Final R esult Performing Organization Address City/[facility]/ZIP Co de Phone Number HISTORICAL RESULTS * DIGITAL MAMMOGRAPHY (12/11/2013 11:01 AM CDT) Anatomical Region Laterality Modality Breast Mammography 12/11/2013 11:0 1 AM CDT Narrative 12/12/2013 12:15 AM CDT Vm Mammogram Performed by: Screening Mamm Bi Acc#: [id number] DATE OF EXAM: Dec 11 2013 CLINICAL HISTORY: Screening. RESULT: Superior-inferior and lateral oblique views of each breast were obtained and compared to the prior study of 05/20/10. There is a mild amount of fibroglandular tissue with most of breast composed of fatty tissue increasing the reliability of the study. No pathological calcification or skin thickening was seen. Digital technology was employed plus computer-aided detection software (R2) was utilized in interpretation of these images. This facility utilizes a reminder system to notify patients of yearly mammograms. IMPRESSION: ESSENTIALLY NORMAL MAMMOGRAM UNCHANGED FROM PRIOR STUDY. BI-RADS CATEGORY 1 NEGATIVE EXAM. Interpreting Physician: MARY CRUMP M.D. Read on: Dec 11 2013 11:01A Transcribed by: graham On: Dec 11 2013 2:27P Approved Electronically by: MARY CRUMP M.D. on: Dec 12 2013 12:15A Ordering DR: DR MARIAH ADAMS Attending DR: MARIAH ADAMS Procedure Note Provider, MD Paramjit - 12/21/2016 Vm Mammogram Performed by: LT Screening Mamm Bi Acc#: [id number] DATE OF EXAM: Dec 11 2013 CLINICAL HISTORY: Screening. RESULT: Superior-inferior and lateral oblique views of each breast were obtainedand compared to the prior study of 05/20/10. There is a mild amount offibroglandular tissue with most of breast composed of fatty tissueincreasing the reliability of the study. No pathological calcification orskin thickening was seen. Digital technology was employed pluscomputer-aided detection software (R2) was utilized in interpretation ofthese images. This facility utilizes a reminder system to notify patientsof yearly mammograms. IMPRESSION: ESSENTIALLY NORMAL MAMMOGRAM UNCHANGED FROM PRIOR STUDY. BI-RADS CATEGORY1 NEGATIVE EXAM. Interpreting Physician: MARY CRUMP M.D. Read on: Dec 11 201311:01A Transcribed by: graham On: Dec 11 2013 2:27P Approved Electronically by: MARY CRUMP M.D. on: Dec 12 201312:15A Ordering DR: DR MARIAH ADAMS Attending DR: MARIAH ADAMS Historical Provider MD [facility] MAMMO PROCEDURES Kristal l Result from Last 3 Months or Most Recently Relevant to Health Maintenance Insurance [place] [id number] [place] [employer] CHO[employer] PPO Advance Directives For more information, please contact: [phone] * Full Code (Latest Code Status on File) Date Activated Date Inactivated Comments 11/22/2023 6:25 PM 11/25/2023 11:09 PM * Full Code Date Activated Date Inactivated Comments 12/21/2022 5:34 PM 12/24/2022 8:16 PM * Full Code Date Activated Date Inactivated Comments 11/10/2022 4:25 PM 11/11/2022 3:51 PM * Full Code Date Activated Date Inactivated Comments 05/04/2022 1:38 PM 05/05/2022 6:47 PM Care Teams Health Insurance Sales Agent Relationship Specialty Start Date End Date Mariah Adams MD [address] [place] [address] VAIBHAV ZHANG [id number] PCP - General Internal Medicine 08/19/20 Mitchell Zamarripa MD [address] [place] [id number] Referring Physician Rheumatology 03/11/22 Brit More NP [address] [place] [address] Nurse Practitioner Cardiovascular Disease 03/11/22 Cliff Ronquillo NP [address] [place] [address] DR QUINTERO [facility] [place] [address] Nurse Practitioner Nurse Practitioner 05/05/22 Dick Aguilar PA [address] [place] [address] DR QUINTERO [address] [place] [id number] Physician Cashier Gambling Orthopedic Surgery 11/11/22 Gavin Sewell MD [address] [place] [address] DR CARLOS Marc [address] [address] Surgeon Orthopedic Surgery 12/24/22
--- OUTSIDE RECORDS SUMMARY | 2024-10-04 13:31 | XMS_ITS ---
Author Organization [facility] Address [address] [place] [address] Phone Care Team Providers Care Bioinformatics Engineer Name Role Phone JAM MCDONNELL PA-C Primary Care Provider [phone] Plan of Treatment No Plan of Treatment Recorded Assessments Includes: Assessments for all patient encounters No Assessments Recorded Medical Equipment - Implanted Devices Includes: Current and historical Devices No Medical Equipment Recorded Medications Includes: Current and historical Medications Past Medications on file Premarin 1.25 MG OR TABS 07/08/2010 - 11/05/2010 Provi anastasia: ALVIN BASS M.D. Diagnosis: Last Documented On 07/08/2010 5:57PM By ALVIN BASS ; [facility] Premarin 1.25 MG OR TABS 09/02/2009 - 08/28/2010 Provi anastasia: Diagnosis: Last Documented On 11/11/2009 9:36AM By BONNIE MORALES ; [facility] Premarin 1.25 MG OR TABS 07/23/2008 - 07/18/2009 Provi anastasia: Diagnosis: Last Documented On 11/11/2009 9:37AM By BONNIE MORALES ; [facility] Amoxicillin 500 MG OR TABS 07/03/2007 - 07/13/2007 Pro vider: Diagnosis: Last Documented On 11/11/2009 9:38AM By BONNIE MORALES ; [facility] Premarin 1.25 MG OR TABS 07/05/2006 - 06/30/2007 Provi anastasia: Diagnosis: Last Documented On 11/11/2009 9:39AM By BONNIE MORALES ; [facility] Premarin 1.25 MG OR TABS 08/27/2005 - 07/23/2006 Provi anastasia: Diagnosis: Last Documented On 11/11/2009 9:40AM By BONNIE MORALES ; [facility] Medications Administered Includes: Administered Medications in patient's chart No Administered Medications Recorded Results Includes: Results from 10/04/2023 through 10/04/2024 No Results Recorded For Specified Dates History of Present Illness History of Present Illness not supported for this document type No History of Present Illness Recorded Social History Description Last Updated 11/11/2009 Last Documented On 0 9:43AM ; [facility] Exercise frequency was three times/week 11/11/2009 Last Documented On 0 9:43AM ; [facility] Exercising regularly 11/11/2009 Last Documented On 0 9:43AM ; [facility] Sexually active 11/11/2009 Last Documented On 0 9:43AM ; [facility] Sexually active with 1 partners in the l ast year 11/11/2009 Last Documented On 0 9:43AM ; [facility] Smoking Status Unknown Procedures and Surgical History Includes: Procedures from 10/04/2023 through 10/04/2024 Procedures Code Diagnosis Performing Provider Service Location Service Date CLINIC FACILITY FEE (Signi/Sep Eval & Man) G0463 Nonrheumatic mitral (valve) insufficiency, Paroxysmal atrial fibrillation, Obstructive sleep apnea (adult) (pediatric), Essential (primary) hypertension [facility] 12/13/2023 Last Documented On 4 2:24PM ; [facility] CLINIC FACILITY FEE (Signi/Sep Eval & Man) 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, Sleep apnea, unspecified, Supraventricular tachycardia, unspecified [facility] 11/14/2023 Last Documented On 4 12:05PM ; [facility] Medical History Includes: Medical History in patient's chart Description Last Updated HYSTERECTOMY ~BTL 11/11/2009 Last Documented On 0 9:43AM ; [facility] 2 living children 11/11/2009 Last Documented On 0 9:43AM ; [facility] A mammogram was performed 11/11/2009 Last Documented On 0 9:43AM ; [facility] A Pap smear was performed 11/11/2009 Last Documented On 0 9:43AM ; [facility] weight: was 7.4 lbs 11/11/2009 Last Documented On 0 9:43AM ; [facility] Breast problems 11/11/2009 Last Documented On 0 9:43AM ; [facility] Delivery date 1983 11/11/2009 Last Documented On 0 9:43AM ; [facility] Duration of labor: was six hr 11/11/2009 Last Documented On 0 9:43AM ; [facility] Gestational age: was 40 weeks 11/11/2009 Last Documented On 0 9:43AM ; [facility] 2 11/11/2009 Last Documented On 0 9:43AM ; [facility] History of the 2nd : 11/11/2009 Last Documented On 0 9:43AM ; [facility] Last mammogram date: 07/19/08 11/11/2009 Last Documented On 0 9:43AM ; [facility] Last pap smear date 200711/11/2009 Last Documented On 0 9:43AM ; [facility] Oral contraceptives 11/11/2009 Last Documented On 0 9:43AM ; [facility] Status post tubal ligation 11/11/2009 Last Documented On 0 9:43AM ; [facility] Family History Includes: Family History in patient's chart Description Last Updated Family history of Cancer 11/11/2009 Last Documented On 0 9:43AM ; [facility] Family history of thyroid disease 2009 Last Documented On 0 9:43AM ; [facility] Family medical history of high blood pre ssure 11/11/2009 Last Documented On 0 9:43AM ; [facility] Review of Systems Review of Systems not supported for this document type No Review of Systems Recorded Mental Status No Mental Status Recorded Functional Status No Functional Status Recorded Physical Exam Physical Exam not supported for this document type No Physical Exam Recorded Allergies Includes: Active, inactive, and resolved Allergies No Known Allergies Encounters Includes: Encounters from 10/04/2023 through 10/04/2024 Encounter Provider Location Date Check-In Time Check- Out Time Diagnosis HOSPITAL FOLLOW UP EXAM TIFFANY SAUCEDO [facility]- 4 12:43PM 1:47PM HEART CENTER CHECK UP TIFFANY HOWARD [facility]- 4 10:58AM 11:28AM Insurance Includes: Active Insurance Policies Plan Name Member ID Group # Subscriber Relationship Effect cyn Dates 1 - [employer] ADV[employer]AGE [id number] NIGHAT Guevara Clinical Notes Includes: Signed Clinical Notes starting from 09/17/2022 No Clinical Notes Recorded
--- OUTSIDE RECORDS SUMMARY | 2024-10-04 13:31 | XMS_ITS | Clinical Summary ---
Author Organization [facility] Address [address] [place] [address] Phone Care Team Providers Care Aviation Manager Name Role Phone JAM MCDONNELL PA-C Primary Care Provider [phone] Reason for Visit and Chief Complaint HOSPITAL FOLLOW UP EXAM Plan of Treatment No Plan of Treatment Recorded Assessments Includes: Assessments from this encounter No Assessments Recorded Medical Equipment - Implanted Devices Includes: Current Devices No Medical Equipment Recorded Medications Administered Includes: Administered Medications from this encounter No Administered Medications Recorded Results Includes: Results discussed during this encounter No Results Recorded For Specified Dates History of Present Illness Includes: History of Present Illness from this encounter No History of Present Illness Recorded Social History No Social History Recorded - Smoking Status Unknown Procedures and Surgical History Includes: Procedures from this encounter Procedures Code Diagnosis Performing Provider Service Location Service Date CLINIC FACILITY FEE (Signi/Sep Eval & Man) G0463 Nonrheumatic mitral (valve) insufficiency, Paroxysmal atrial fibrillation, Obstructive sleep apnea (adult) (pediatric), Essential (primary) hypertension [facility]FF[facility] Chaudhari [facility] 12/13/2023 Last Documented On 4 2:24PM ; [facility] Medical History Includes: Medical History addressed during this encounter No Medical History Recorded Family History Includes: Family History addressed during this encounter No Family History Recorded Review of Systems Includes: Review of Systems from this encounter No Review of Systems Recorded Mental Status Includes: Mental Status from this encounter No Mental Status Recorded Functional Status Includes: Functional Status from this encounter No Functional Status Recorded Physical Exam Includes: Physical Exam from this encounter No Physical Exam Recorded Allergies Includes: Active Allergies No Known Allergies Encounters Encounter Provider Location Date Check-In Time Check- Out Time Diagnosis HOSPITAL FOLLOW UP EXAM TIFFANY SAUCEDO [facility]- 4 12:43PM 1:47PM Insurance Includes: Active Insurance Policies Plan Name Member ID Group # Subscriber Relationship Effect cyn Dates 1 - [employer] ADVANTAGE [id number] NIGHAT DELANEY Self Clinical Notes Includes: Clinical Notes from this encounter No Clinical Notes Recorded
--- OUTSIDE RECORDS SUMMARY | 2024-10-04 13:31 | XMS_ITS | Clinical Summary ---
Author Organization [facility] Address [address] [place] [address] Phone Care Team Providers Care Door Clamp Operator Name Role Phone JAM MCDONNELL PA-C Primary Care Provider [phone] Reason for Visit and Chief Complaint HEART CENTER CHECK UP Plan of Treatment No Plan of Treatment [...] hypertension, Sleep apnea, unspecified, Supraventricular tachycardia, unspecified TIFFANY HOWARD [facility] 11/14/2023 Last Documented On 4 12:05PM ; [facility] Medical History Includes: Medical History [...] Date Check-In Time Check- Out Time Diagnosis HEART CENTER CHECK UP TIFFANY HOWARD [facility] 4 10:58AM 11:28AM Insurance Includes: Active Insurance Policies Plan Name Member ID Group # Subscriber Relationship Effect cyn Dates 1 - [employer]AGE [id number] NIGHAT DELANEY Self Clinical Notes Includes: Clinical Notes from this encounter No Clinical Notes Recorded
--- OUTSIDE RECORDS SUMMARY | 2024-10-04 13:31 | XMS_ITS | Clinical Summary ---
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 Nonrheumatic mitral valve regurgitation 11/25/19 Chronic atrial fibrillation 11/25/2023 ACS (acute coronary syndrome) ([facility]) 11/23/19 Persistent atrial fibrillation 11/22/2023 Assessment & Plan [...] (04/23/2022): Added automatically from request for surgery [id number] Posterior tibial tendon dysfunction 03/02/2022 Flat foot [...] 01/04/2018 Assessment & Plan (09/19/2018 1:30 PM CORPORATE REPRESENTATIVE): Low disease activity today on exam. Take [...] tissue disease 01/18/2012 04/26/2018 Polyarthropathy 01/16/2012 04/26/2018 Encounters Date Type Department Care Team Description 09/10/2024 9:16 AM CORPORATE REPRESENTATIVE Anesthesia Event [facility] Operating Room [address] [place] [address] Tonia Gutierrez MD Reynolds, Ethan Emerson, MD 09/10/2024 9:15 AM CORPORATE REPRESENTATIVE - 09/10/2024 10:45 AM CORPORATE REPRESENTATIVE Surgery [facility] Operating Room [address] [place] [address] Vignesh Hawkins MD LAPAROSCOPIC CHOLECYSTECTOMY 09/10/2024 8:13 AM CORPORATE REPRESENTATIVE - 09/10/2024 2:39 PM CORPORATE REPRESENTATIVE Hospital Encounter [facility] Operating Room [address] [place] [address] Vignesh Hawkins MD Calculus of gallbladder with cholecystitis without biliary obstruction, unspecified cholecystitis acuity Discharge Disposition: Discharge to home or self care 08/14/2024 9:30 AM CORPORATE REPRESENTATIVE Office Visit [facility] [address] [facility] [address] [place] [address] Vignesh Hawkins MD Calculus of gallbladder with cholecystitis without biliary obstruction, unspecified cholecystitis acuity 07/24/2024 7:58 AM CORPORATE REPRESENTATIVE - 07/24/2024 11:59 PM CORPORATE REPRESENTATIVE Hospital Encounter [facility] 1 [place] [address] Hepatomegaly, not elsewhere classified; Hepatomegaly Discharge Disposition: Discharge to home or self care 07/22/2024 8:25 AM CORPORATE REPRESENTATIVE - 07/22/2024 10:10 AM CORPORATE REPRESENTATIVE Emergency [facility] Emergency Department 1 [place] [address] Mike Suarez MD Bronchitis (Primary Dx) Discharge Disposition: Discharge to home or self care from Last 3 Months Immunizations Name Administration Dates Next Due Influenza, Unspecified 05/29/2022 Surgical History Surgery Date Site/Laterality Comments TOTAL ABDOMINAL HYSTERECTOMY Total Abdominal Hysterectomy With Removal Of Both Ovaries - (Added by TW Conv) ABDOMINO-VAGINAL VESICAL NEC K SUSPENSION Abdomino-Vaginal Vesical Neck Suspension - (Added by TW Conv) BLADDER SUSPENSION ANKLE FRACTURE SURGERY Left 4 surgeries total TOTAL SHOULDER REPLACEMENT 05/04/2022 Left [facility] KNEE ARTHROPLASTY Left US GUIDED BIOPSY LIVER 04/05/2018 N/A Medical History Medical History Date Comments Rheumatic tricuspid insufficiency Tricuspid regurgitation - (Added by TW Conv) Other specified anxiety disorders Depression with anxiety - (Added by TW Conv) Personal history of other di seases of the circulatory system History of hypertension - (A dded by TW Conv) Osteoporosis Arthritis Atrial fibrillation (CMS/HCC) (HCC) Depression Heart murmur Hypercholesteremia Stroke (HCC) TIA's Thyroid disease Sleep apnea PONV (postoperative nausea and vomiting) GERD (gastroesophageal reflux disease) Hypertension Pneumonia Hypothyroidism Psoriatic arthritis (HCC) Raynaud's disease Anxiety Family History Medical History Relation Name Comments Arthritis Brother Heart disease Brother Arthritis Father Gout Father Gout - (Added b y TW Conv) Hypertension Father Lung cancer Father Malignant Neopl asm Bronchus and Lung - (Added by TW Conv) Hypertension Mother Hypertension - (Added by TW Conv) Kyphosis Mother Osteoporosis Mother Family history of osteoporosis - (Added by TW Conv) Thyroid disease Other Thyroid Diso rder - (Added by TW Conv) Hypothyroidism Sister Relation Name Status Comments Brother Father Mother Other Sister Social History Tobacco Use Types Packs/Day Years [...] 12/23/2022 How often do you attend chur or jehovah's witness services? Never 12/23/2022 Do you belong to any clubs o r organizations such as voodoo groups, unions, fraternal or athletic groups, or [...] staff should administer the PHQ-9) 0 11/23/2023 [facility] - Occupational [...] place to sleep or slept in a half-way (including now)? No 12/23/2022 Personal Safety Answer Date Recorded Have you ever been in or are you currently in a harmful physical or emotional relationship or is someone making you feel afraid or unsafe? Denies 09/10/2024 Comments No Sex and Gender Information Value Date Recorded Sex Assigned at Not on file Legal Sex Female 11:50 PM CORPORATE REPRESENTATIVE Gender Identity Not on file Sexual Orientation Not on file Obstetrics History Last Filed Vital Signs Vital Sign Reading Time Taken Comments Blood Pressure 119/69 09/10/2024 2:00 PM CORPORATE REPRESENTATIVE Pulse 69 09/10/2024 2:00 PM CORPORATE REPRESENTATIVE Temperature 36.4 C (97.6 F) 09/10/2024 2:00 PM CORPORATE REPRESENTATIVE Respiratory Rate 16 09/10/2024 2:00 PM CORPORATE REPRESENTATIVE Oxygen Saturation 94% 09/10/2024 2:00 PM CORPORATE REPRESENTATIVE Inhaled Oxygen Concentration - - Weight 67.6 kg (149 lb 0.5 oz) 09/10/2024 8:15 A M CORPORATE REPRESENTATIVE Height 154.9 cm (5' 1 ) 09/10/2024 8:15 AM CORPORATE REPRESENTATIVE Body Mass Index 28.16 09/10/2024 8:15 AM CORPORATE REPRESENTATIVE Plan of Treatment Health Maintenance Due Date Last Done Comments Colon Cancer Screening-Colonoscopy 1960 Hepatitis B Screening 1980 Regular Well Visit/Exam 18-64 1980 Zoster Vaccine (1 of 2) 2012 DTaP/Tdap/Td Vaccine (2 - Td or Tdap) 06/15/2021 06/15/2011 Covid-19 Vaccine (3 - 2023-2 5 season) 2024 04/22/2021, 04/01/2021 Influenza Vaccine (#1) 2024 3, 05/29/2022, 08/14/2021, Additional history exists Depression Screening 11/21/2024 11/22/2023, 12/21/2022, 12/21/2022, Additional history exists Breast Cancer Screening-Mammogram 05/16/2025 05/16/2024, 05/16/2024, 10/08/2022, Additional history exists Pneumococcal vaccine <65 (3 of 3 - PPSV23 or PCV20) 2027 10/20/2020, 07/18/2017, 06/15/2011 Hepatitis C Screening Completed 11/01/2014 Medical Devices Implanted Type Area Land Mobile Radio Technician Device Identifier Shelf Expiration Date Model / Serial / Lot Exactech Restrictor Cement Cemex Small Od13mm Tpa-13 - [id number] Implanted:Qty: 1 on 05/04/2022 by Gavin Sewell MD at [facility] Left: Shoulder [employer]ech 08/28/2023 TPA-13 / / [id number] Exactech Equinoxe Reverse Shoulder +0mm Tray Humeral Adapter 320-10-00 - [id number] - [id number] Implanted:Qty: 1 on 05/04/2022 by Gavin Sewell MD at [facility] Ex[employer] [id number] 04/07/2032 320-10-00 / [id number] / Ex[employer]ech Equinoxe 40mm Small Reverse Constrain Shoulder +2.5mm Liner 320-40-13 - [id number] - [id number] Implanted:Qty: 1 on 05/04/2022 by Gavin Sewell MD at [facility] [employer] 01/31/2024 320-40-13 / [id number] / Ex[employer]ech Equinoxe Lock Reverse Shoulder Glenosphere Screw Bone 320-15-05 - [id number] - [id number] Implanted:Qty: 1 on 05/04/2022 by Gavin Sewell MD at [facility] Left: Shoulder [employer]ech 03/09/2027 320-15-05 / [id number] / Exactech Reverse Torque Define Shoulder Kit Screw 320-20-00 - [id number] - [id number] Implanted:Qty: 1 on 05/04/2022 by Gavin Sewell MD at [facility] Left: Shoulder [employer] 02/03/2027 320-20-00 / [id number] / Ex[employer]ech Equinoxe Small Reverse Superior Posterior Augment Shoulder Left 320-35-07 - [id number] - [id number] Implanted:Qty: 1 on 05/04/2022 by Gavin Sewell MD at [facility] Left: Shoulder [employer] [id number] 04/08/2031 320-35-07 / [id number] / Exactech Equinoxe 10mm Stem Humeral Sterile 300 - [id number] - [id number] Implanted:Qty: 1 on 05/04/2022 by Gavin Sewell MD at [facility] Left: Shoulder [employer] [id number] 09/07/2031 300 / [id number] / [employer] Cement Bone Simplex Gentamicin High Viscosity 40gm 6195-1-001 - [id number] Implanted:Qty: 1 on 05/04/2022 by Gavin Sewell MD at [facility] Left: Shoulder [employer] 09/28/2023 6195-1-001 / / [id number] Exactech Equinoxe 40mm 24.3mm Small Reverse Shoulder Sphere Glenoid 320-31-40 - [id number] - [id number] Implanted:Qty: 1 on 05/04/2022 by Gavin Sewell MD at [facility] Left: Shoulder [employer]ech [id number] 12/11/2030 320-31-40 / [id number] / Ex[employer]ech Equinoxe 4.5mm 38mm Kit Compression Lock Cap Reverse Shoulder 320-20-38 - [id number] - [id number] Implanted:Qty: 1 on 05/04/2022 by Gavin Sewell MD at [facility] Left: Shoulder [employer] [id number] 01/12/2027 320-20-38 / [id number] / Exactech Equinoxe 4.5mm 34mm Kit Compression Lock Cap Reverse Shoulder 320-20-34 - [id number] - [id number] Implanted:Qty: 1 on 05/04/2022 by Gavin Sewell MD at [facility] Left: Shoulder [employer]ech [id number] 07/14/2026 320-20-34 / [id number] / [employer] Insert Tibial Knee Fixed Lm Posterior Stabilized Attune 7mm Size 5 Polyethylene [id number] - [id number] Implanted:Qty: 1 on 11/10/2022 by Gavin Sewell MD at [facility] Left: Knee [employer] 07/28/2030 [id number] / / [id number] [employer] Attune Cruciate Retain Cementless Knee Left 5 Component Femoral [id number] - [id number] Implanted:Qty: 1 on 11/10/2022 by Gavin Sewell MD at [facility] Left: Knee [employer] 04/28/2032 [id number] / / [id number] [employer] Attune Fb Tib Base Sz 5 Por [id number] - [id number] Implanted:Qty: 1 on 11/10/2022 by Gavin Sewell MD at [facility] Left: Knee [employer] 03/28/2032 [id number] / / [id number] Procedures Procedure Name Priority Date/Time Associated Diagnosis Comments SURGICAL PATHOLOGY Routine 09/10/2024 10:29 AM CORPORATE REPRESENTATIVE Calculus of gallbladder with cholecystitis without biliary obstruction, unspecified cholecystitis acuity CA AN ELECTIVE ENDOTRACHEAL AIRWAY Routine 09/10/2024 9:36 AM CORPORATE REPRESENTATIVE LAPAROSCOPIC CHOLECYSTECTOMY 09/10/2024 9:02 AM CORPORATE REPRESENTATIVE Calculus of gallbladder with cholecystitis without biliary obstruction, unspecified cholecystitis acuity EGFR STAT 09/10/2024 8:47 AM CORPORATE REPRESENTATIVE DIFFERENTIAL AUTO STAT 09/10/2024 8:4 7 AM CORPORATE REPRESENTATIVE ANTIBODY SCREEN STAT 09/10/2024 8:47 AM CORPORATE REPRESENTATIVE ABO/RH STAT 09/10/2024 8:47 AM CORPORATE REPRESENTATIVE TYPE AND SCREEN STAT 09/10/2024 8:47 AM CORPORATE REPRESENTATIVE CBC WITH AUTO DIFFERENTIAL STAT 09/10/2024 8:47 AM CORPORATE REPRESENTATIVE COMPREHENSIVE METABOLIC PANEL STAT 09/10/2024 8:47 AM CORPORATE REPRESENTATIVE B ABO / RH CONFIRMATION TESTING STAT 09/10/2024 8:45 AM CORPORATE REPRESENTATIVE US ABDOMEN COMPLETE Schedule Routine, Read Routine (OP Routine) 07/24/2024 9:00 AM CORPORATE REPRESENTATIVE Hepatomegaly XR CHEST 1 VIEW ED 07/22/2024 9:06 AM CORPORATE REPRESENTATIVE EGFR STAT 07/22/2024 8:48 AM CORPORATE REPRESENTATIVE DIFFERENTIAL AUTO STAT 07/22/2024 8:4 8 AM CORPORATE REPRESENTATIVE MAGNESIUM Routine 07/22/2024 8:48 AM CORPORATE REPRESENTATIVE COMPREHENSIVE METABOLIC PANEL STAT 07/22/2024 8:48 AM CORPORATE REPRESENTATIVE CBC WITH AUTO DIFFERENTIAL STAT 07/22/2024 8:48 AM CORPORATE REPRESENTATIVE INFLUENZA A/B, RSV, AND COVID-19 PCR Routine 07/22/2024 8:41 AM CORPORATE REPRESENTATIVE SERUM HEPATITIS C AB Routine 11/01/2014 8:32 AM CORPORATE REPRESENTATIVE DIGITAL MAMMOGRAPHY Routine 12/11/2013 11:01 AM CDT from Last 3 Months or Most Recently Relevant to Health Maintenance Results * Surgical pathology (09/10/2024 10:29 AM CORPORATE REPRESENTATIVE) Tissue (Gallbladder) 09/10/2024 9:51 AM CORPORATE REPRESENTATIVE Narrative PATHOLOGY [facility] ([place]) - 09/11/2024 3:50 PM CORPORATE REPRESENTATIVE EPIC results best viewed via link to PDF [facility] Department of Pathology [address] [place] [address] Note to Patients: This report may contain [...] Final Report Patient Name: ANTOINETTE DELANEY Address: [address] [place] [address] Gender: F : 1960 (Age: 64) Service: Surgery Location: [facility] Hospital #: [id number] Patient Type: [facility] Taken: 09/10/2024 Received: 09/10/2024 Accessioned: 09/10/2024 Reported: [...] determined by the Surgical Pathology Department at [facility] as part of an ongoing quality control technician program and in compliance with federally mandated [...] characteristics determined by the Surgical Pathology Department [facility]. It has not been cleared or approved by the U. S. Food and Drug Administration. Note for decalcified specimens: This assay has not been validated on decalcified tissues. Results should be interpreted with caution given the possibility of false negativity on decalcified specimens Vignesh Hawkins MD LAB PATHOLOGY OR DERABLES Final Result Performing Organization Address City/State/[facility] Co de Phone Number PATHOLOGY [facility] ([address] [address] * CA AN ELECTIVE ENDOTRACHEAL AIRWAY (09/10/2024 9:36 AM CORPORATE REPRESENTATIVE) [place] CRNA - 09/10/2024 9:36 AM CORPORATE REPRESENTATIVE Cliff Davis CRNA 09/10/2024 9:37 AM Airway [...] GERD sx today. Dentition same as preop. Tonia Gutierrez MD ANESTHESIA ORDERABLES Fi nal Result * eGFR (09/10/2024 8:47 AM CORPORATE REPRESENTATIVE) eGFR >90 >=60 mL/min/1. 73 m2 Comment: [...] last reviewed 2021. Blood 09/10/2024 8:47 AM CORPORATE REPRESENTATIVE 09/10/2024 8:50 AM CORPORATE REPRESENTATIVE us Vignesh Hawkins MD LAB BLOOD ORDERA BLES Final Result [facility] ([place]) [address] [facility] [place] [address] * Differential, auto (09/10/2024 8:47 AM CORPORATE REPRESENTATIVE) Neutrophil abs 5.3 1.5 - 6.5 K/cumm Imm gran abs 0.0 0.0 - 0.1 K/cumm [facility] ([place]) Lymphocyte abs 0.8 0.8 - 3.3 K/cumm [facility] ([place]) Monocyte abs 0.6 0.2 - 0.8 K/cumm [facility] ([place]) Eosinophil abs 0.3 0.0 - 0.5 K/cumm [...] was last revised on 2017. Blood 09/10/2024 8:47 AM CORPORATE REPRESENTATIVE 09/10/2024 8:50 AM CORPORATE REPRESENTATIVE us Vignesh Hawkins MD LAB BLOOD ORDERA BLES Final Result [facility] ([place]) [address] [facility] Department [place] [address] * (ABNORMAL) CBC with auto differential (09/10/2024 8:47 AM CORPORATE REPRESENTATIVE) Pathologist [facility] WBC 7.1 3.8 - 9.9 K/cumm Hgb [...] [facility] ([place]) Blood 09/10/2024 8:47 AM CORPORATE REPRESENTATIVE 09/10/2024 8:50 AM CORPORATE REPRESENTATIVE us Vignesh Hawkins MD LAB BLOOD ORDERA BLES Final Result [facility] ([place]) [address] [facility] Department [place] [address] * ABO/Rh (09/10/2024 8:47 AM CORPORATE REPRESENTATIVE) Pathologist [facility] ABO/Rh B Positive Blood 09/10/2024 8:47 AM CORPORATE REPRESENTATIVE 09/10/2024 8:49 AM CORPORATE REPRESENTATIVE Narrative [facility] ([place]) - 09/10/2024 9:11 AM CORPORATE REPRESENTATIVE Has the patient had Daratumumab or Isatuximab in the past 6 months?->Unknown Vignesh Hawkins MD LAB BLOOD BANK T EST ORDERABLES Final Result [facility] ([place]) [address] [facility] Department [place] [address] * Antibody screen (09/10/2024 8:47 AM CORPORATE REPRESENTATIVE) [facility] Lonnie, indirect, Gel Interpretation Negative ABSC Blood 09/10/2024 8:47 AM CORPORATE REPRESENTATIVE 09/10/2024 8:49 AM CORPORATE REPRESENTATIVE Narrative [facility] ([place]) - 09/10/2024 9:25 AM CORPORATE REPRESENTATIVE Has the patient had Daratumumab or Isatuximab in the past 6 months?->Unknown Vignesh Hawkins MD LAB BLOOD BANK T EST ORDERABLES Final Result Performing Organization Address City/[facility] Co de Phone Number [facility] ([place]) 1 [facility] [place] [address] * (ABNORMAL) Comprehensive metabolic panel (09/10/2024 8:47 AM CORPORATE REPRESENTATIVE) [facility] Sodium 133(L) 135 - 145 mmol/L Comment:sandra moreno(AMB SUrg) Potassium, pl 2.9(C) 3.3 - 4.9 mmol/L [facility] ([place]) Comment:Critical Result call ed by [email or web address] at 2024-09-10 09:18:13. Result Read Back by sandra moreno(AMB SUrg) Chloride 94(L) 97 - 110 mmol/L [facility] ([place]) Comment:sandra moreno(AMB SUrg) CO2 25 22 - 32 mmol/L [facility] ([place]) Comment:sandra moreno(AMB SUrg) Anion gap 14 2 - 15 mmol/L [facility] ([place]) Comment:sandra moreno(AMB SUrg) BUN 12 6 - 25 mg/dL [facility] ([place]) Comment:sandra moreno(AMB SUrg) Creatinine 0.68 [...] - 1.2 mg/dL [facility] ([place]) Comment:sandra moreno(AMB SUrg) Protein, pl 7.5 6.5 - 8.5 g/dL [facility] ([place]) Comment:sandra moreno(AMB SUrg) Albumin 3.9 3.5 - 5.0 g/dL [facility] ([place]) Comment:sandra moreno(AMB SUrg) Alk phos 126 40 - 130 Units/L [facility] ([place]) Comment:sandra moreno(AMB SUrg) ALT 23 7 - 45 Units/L [facility] ([place]) Comment:sandra moreno(AMB SUrg) AST 30 10 - 45 Units/L [facility] ([place]) Comment:sandra moreno(AMB SUrg) Blood 09/10/2024 8:47 AM CORPORATE REPRESENTATIVE 09/10/2024 8:50 AM CORPORATE REPRESENTATIVE us Vignesh Hawkins MD LAB BLOOD ORDERA BLES Final Result [facility] ([place]) 1 [facility] Department [place] [address] * ABO / Rh Confirmation Testing (09/10/2024 8:45 AM CORPORATE REPRESENTATIVE) ABO/Rh Confirmation B Positive [facility] Blood 09/10/2024 8:45 AM CORPORATE REPRESENTATIVE 09/10/2024 9:13 AM CORPORATE REPRESENTATIVE us Vignesh Hawkins MD LAB BLOOD ORDERA BLES Final Result [facility] ([place]) [address] [facility] Department [place] [address] [facility] * US Abdomen Complete (07/24/2024 9:00 AM CORPORATE REPRESENTATIVE) Anatomical Region Laterality Modality Abdomen N/A Ultrasound 07/27/2024 3:45 PM CORPORATE REPRESENTATIVE Narrative 07/27/2024 3:47 PM CORPORATE REPRESENTATIVE EXAM DESCRIPTION: US ABDOMEN COMPLETE REASON FOR [...] liver size could not be provided. The manager women indicated that real-time the liver appears enlarged. Liver is increased in echogenicity. There is no focal hepatic lesion. LIVER VASCULATURE: Normal directional flow of the main portal and hepatic veins. GALLBLADDER: Echogenic shadowing gallstone. Mild gallbladder wall thickening 0.3 cm. No pericholecystic fluid. Plastic Press Operator reports a negative sonographic Tom's sign. BILIARY: [...] Kenny Zacarias M.D. CH: BHARTI Report ID: [id number] Reading Location: [place] [address] Procedure Note Kenny Zacarias Jr., MD - [...] the liver size could not be provided.The manager women indicated that real-time the liver appears enlarged. Liver is increased in echogenicity. There is no focal hepatic lesion. LIVER VASCULATURE: Normal directional flow of the main portal and hepatic veins. GALLBLADDER: Echogenic shadowing gallstone. Mild gallbladder wallthickening 0.3 cm. No pericholecystic fluid. Plastic Press Operator reports a negativesonographic Tom's sign. BILIARY: No [...] Kenny Zacarias M.D. CH: BHARTI Report ID: [id number] Reading Location: [id number] Mariah Adams MD [facility] US PROCEDURES Final Result * XR Chest 1 View (07/22/2024 9:06 AM CORPORATE REPRESENTATIVE) Anatomical Region Laterality Modality Body, Chest N/A Computed Radiogr aphy 07/22/2024 9:09 AM CORPORATE REPRESENTATIVE Narrative 07/22/2024 9:11 AM CORPORATE REPRESENTATIVE EXAM DESCRIPTION: XR CHEST 1 VIEW REASON [...] by Morgan Dong M.D. JR: Report ID: [id number] Reading Location: [id number] Procedure Note Morgan Dong MD - 07/22/2024 [...] by Morgan Dong M.D. JR: Report ID: [id number] Reading Location: [place] [address] Mike Suarez MD IMG XR PROCEDURES Final Resu lt * eGFR (07/22/2024 8:48 AM CORPORATE REPRESENTATIVE) eGFR 86 >=60 mL/min/1. 73 m2 Comment: [...] of Race in Diagnosing Kidney Disease, JASN 202). The CKD-EPI equation should not be used for patients with unstable renal function and has not been validated in children and those over 70. Current interpretive data was last reviewed 2021. Blood 07/22/2024 8:48 AM CORPORATE REPRESENTATIVE 07/22/2024 8:50 AM CORPORATE REPRESENTATIVE Mike Suarez MD LAB BLOOD ORDERABLES Final R esult [facility] ([place]) [address] [facility] Department [place] [address] * (ABNORMAL) Differential, auto (07/22/2024 8:48 AM CORPORATE REPRESENTATIVE) Neutrophil abs 9.0(H) 1.5 - 6.5 K/cumm Imm gran abs 0.0 0.0 - 0.1 K/cumm [facility] ([place]) Lymphocyte abs 0.6(L) 0.8 - 3.3 K/cumm [facility] ([place]) Monocyte abs 0.6 0.2 - 0.8 K/cumm [facility] ([place]) Eosinophil abs 0.0 0.0 - 0.5 K/cumm [...] revised on 2017. Blood 07/22/2024 8:48 AM CORPORATE REPRESENTATIVE 07/22/2024 8:50 AM CORPORATE REPRESENTATIVE Mike Suarez MD LAB BLOOD ORDERABLES Final R esult [facility] ([place]) [address] [facility] [employer] [place] [address] * (ABNORMAL) CBC with auto differential (07/22/2024 8:48 AM CORPORATE REPRESENTATIVE) WBC 10.3(H) 3.8 - 9.9 K/cumm Hgb [...] [facility] ([place]) Blood 07/22/2024 8:48 AM CORPORATE REPRESENTATIVE 07/22/2024 8:50 AM CORPORATE REPRESENTATIVE Mike Suarez MD LAB BLOOD ORDERABLES Final R esult [facility] ([place]) [address] [facility] [employer] [place] [address] * Magnesium (07/22/2024 8:48 AM CORPORATE REPRESENTATIVE) Magnesium 1.6 1.4 - 2.5 mg/dL Comment:Anai Truong (ER) Blood 07/22/2024 8:48 AM CORPORATE REPRESENTATIVE 07/22/2024 8:50 AM CORPORATE REPRESENTATIVE us Mike Suarez MD LAB BLOOD ORDERABLES Final R esult [facility] ([place]) 1 [facility] Department [place] [address] * (ABNORMAL) Comprehensive metabolic panel (07/22/2024 8:48 AM CORPORATE REPRESENTATIVE) Sodium 130(L) 135 - 145 mmol/L Comment:Anai Truong (ER) Potassium, pl 3.0(C) 3.3 - 4.9 mmol/L [facility] ([place]) Comment:Critical Result call ed by [email or web address] at 2024-07-22 09:20:43. Result Read Back by Anai Truong (ER) Chloride 89(L) 97 - 110 mmol/L [facility] ([place]) Comment:Anai Truong (ER) CO2 28 22 - 32 mmol/L [facility] ([place]) Comment:Anai Truong (ER) Anion gap 13 2 - 15 mmol/L [facility] ([place]) Comment:Anai Truong (ER) BUN 10 6 - 25 mg/dL [facility] ([place]) Comment:Anai Truong (ER) Creatinine 0.78 0.60 - 1.10 mg/dL [facility] ([place]) Comment:Anai Truong (ER) Glucose 139 70 - 199 mg/dL [facility] ([place]) Comment: Anai Truong (ER) Interpretive [...] Bilirubin, total 0.6 0.1 - 1.2 mg/dL [facility] ([place]) Comment:Anai Truong (ER) Protein, pl 8.2 6.5 - 8.5 g/dL [facility] ([place]) Comment:Anai Truong (ER) Albumin 4.1 3.5 - 5.0 g/dL [facility] ([place]) Comment:Ania Truong (ER) Alk phos 162(H) 40 - 130 Units/L [facility] ([place]) Comment:Anai Truong (ER) ALT 18 7 - 45 Units/L [facility] ([place]) Comment:Anai Truong (ER) AST 29 10 - 45 Units/L [facility] ([place]) Comment:Anai Truong (ER) Blood 07/22/2024 8:48 AM CORPORATE REPRESENTATIVE 07/22/2024 8:50 AM CORPORATE REPRESENTATIVE Mike Suarez MD LAB BLOOD ORDERABLES Final R esult [facility] ([place]) [address] [place] [facility] [place] [address] * Influenza A/B, RSV, and COVID-19 PCR Nasopharyngeal (07/22/2024 8:41 AM CORPORATE REPRESENTATIVE) COVID-19 RNA Negative Negative Influenza A RNA Negative Negative [facility] ([place]) Influenza B RNA Negative Negative [facility] ([place]) RSV RNA Negative Negative [facility] ([place]) Comment: Interpretive data: Testing performed by [facility]. This test is performed using the [employer] Xpert Xpress CoV-2/Flu/RSV plus assay. This is a multiplex, real- time reverse transcriptase PCR assay intended for the qualitative detection of nucleic acid from SARS-CoV-2, influenza A, influenza B, and respiratory syncytial virus. This assay has been cleared by the [place] Food and Drug administration. The performance characteristics have been verified by the [facility]. Results must be considered in the clinical context, and a negative result does not rule out infection. Interpretive Data last revised 2023 Nasopharyngeal 07/22/2024 8: 41 AM CORPORATE REPRESENTATIVE 07/22/2024 8:43 AM CORPORATE REPRESENTATIVE Narrative [facility] PHILLIPS ([place]) - 07/22/2024 9:24 AM CORPORATE REPRESENTATIVE Is the Patient experiencing symptoms consistent with COVID?->Yes us Mike Suarez MD LAB MICROBIOLOGY - GENERAL O RDERABLES Final Result JL PHILLIPS ([place]) 1 [facility] [place] [address] * Serum Hepatitis C ab (11/01/2014 8:32 AM CORPORATE REPRESENTATIVE) HCV ab Negative NEG HISTORICAL RESULTS Serum 11/01/2014 8:32 AM CORPORATE REPRESENTATIVE Narrative HISTORICAL RESULTS - 11/02/2014 3:46 AM CORPORATE REPRESENTATIVE Interpretive Data If confirmation is required, call Laboratory Customer Service to request sample to be sent to [facility] for Hepatitis C Virus (HCV) RNA Detection and Quantitation by Real-Time Reverse Solderer-PCR (RT-PCR). Current interpretive data was last revised on 2011 us Fariha Whitley MD LAB BLOOD ORDERABLES Final R esult HISTORICAL RESULTS * DIGITAL MAMMOGRAPHY (12/11/2013 11:01 AM CDT) Anatomical Region Laterality Modality Breast Mammography 12/11/2013 11:0 1 AM CDT Narrative 12/12/2013 12:15 AM CDT Vm Mammogram Performed by: LT Screening Mamm Bi Acc#: [id number] DATE OF EXAM: Dec 11 2013 CLINICAL [...] BI-RADS CATEGORY 1 NEGATIVE EXAM. Interpreting Physician: EDWARD THERON M.D. Read on: Dec 11 2013 11:01A Transcribed by: graham On: Dec 11 2013 2:27P Approved Electronically by: MARY CRUMP M.D. on: Dec 12 2013 12:15A Ordering DR: DR MARIAH ADAMS Attending DR: MARIAH ADAMS Procedure Note Provider, MD Paramjit - 12/21/2016 Vm Mammogram Performed by: Screening Mamm Bi Acc#: [id number] DATE OF EXAM: Dec 11 2013 CLINICAL [...] ADAMS Historical Provider MD MAYBERRY MAMMO PROCEDURES Krisatl l Result from Last 3 Months or Most Recently Relevant to Health Maintenance [place] [employer] CHOICE PPO Advance Directives For more information, please contact: [phone] * Full Code (Latest Code Status on File) Date Activated Date Inactivated Comments 11/22/2023 6:25 PM 11/25/2023 11:09 PM * Full Code Date Activated Date Inactivated Comments 12/21/2022 5:34 PM 12/24/2022 8:16 PM * Full Code Date Activated Date Inactivated Comments 11/10/2022 4:25 PM 11/11/2022 3:51 PM * Full Code Date Activated Date Inactivated Comments 05/04/2022 1:38 PM 05/05/2022 6:47 PM Care Teams Milk Driver Relationship Specialty Start Date End Date Mariah Adams MD [address] [place] [phone] PCP - General Internal Medicine 08/19/20 Mitchell Zamarripa MD [address] [place] [phone] Referring Physician Rheumatology 03/11/22 Brit More NP [address] [place] [address] Nurse Practitioner Cardiovascular Disease 03/11/22 Cliff Ronquillo NP [address] [place] [address] [address] [employer] [place] [address] Nurse Practitioner Nurse Practitioner 05/05/22 Dick Aguilar PA [address] [place] [address] DR [address] [employer] [place] [address] Physician Apprentice Pattern Maker Orthopedic Surgery 11/11/22 Gavin Sewell MD [address] [place] [address] DR CARLOS QUINTERO [address] [place] [address] Surgeon Orthopedic Surgery 12/24/22
--- OUTSIDE RECORDS SUMMARY | 2024-10-04 13:31 | XMS_ITS | Clinical Summary ---
Author Organization [facility] Address [address] [place] [address] Phone Care Team Providers Care Addiction Treatment Counselor Name Role Phone JAM MCDONNELL PA-C Primary Care Provider [phone] Reason for Visit and Chief Complaint HEART CENTER FOLLOW UP Plan of Treatment No Plan of [...] Social History Recorded - Smoking Status Unknown Medical History Includes: Medical History addressed during [...] Time Check- Out Time Diagnosis HEART CENTER FOLLOW UP TIFFANY HOW[facility]- 3 1:47PM 2:40PM Insurance Includes: Active Insurance Policies Plan Name Member ID Group # Subscriber Relationship Effect cyn Dates 1 - BLUE CROSS MEDICARE ADVANTAGE [id number] NIGHAT DELANEY Self Clinical Notes Includes: Clinical Notes from this encounter No Clinical Notes Recorded
--- OUTSIDE RECORDS SUMMARY | 2024-10-04 13:32 | XMS_ITS | Encounter Summary ---
Author Organization [facility] Address [address] [place] [address] Care Team Providers Care Reforestation Worker Name Role Phone Jose Cruz Ledezma Primary Care Provider [phone] Yg Lee MD Primary Care Provider + Mitchell Zamarripa MD Unavailable [phone] Brit More BRANCH ADMINISTRATOR Unavailable [phone] Cliff Ronquillo NP Unavailable [phone] Dick Aguilar Unavailable [phone] Gavin Sewell MD Unavailable [phone] Reason for Visit * Reason Onset Date Comments Scheduling Appointments 03/24/2020 Called f or DEXA appointment reminder Encounter Details Date Type Department Care Team (Late st Contact Info) Description 03/24/2020 Telephone [facility] [address] [place] [phone] Valencia Hernandez RT Scheduling Appointments (Called for DEXA appointment reminder) Social History Tobacco Use Types Packs/Day Years Used Date Smoking Tobacco: Former Smokeless Tobacco: Never Alcohol Use Standard Drinks/Week Comments Yes 0 (1 standard drink = 0.6 oz pur e alcohol) occasional Comments No Sex and Gender Information Value Date Recorded Sex Assigned at Not on file Legal Sex Female 11:50 PM SHIRT FINISHER Gender Identity Not on file Sexual Orientation [...] COVID: Suspected 07/22/2024 07/22/2024 07/22/2024 9:25 AM SHIRT FINISHER documented as of this encounter Care Teams Reforestation Worker Relationship Specialty Start Date End Date Jose Cruz Ledezma PA [address] [place] [address] PCP - General 01/24/20 08/18/20 Yg Lee MD [address] [place] [phone] PCP - General Internal Medicine 08/19/20 Mitchell Zamarripa MD [address] [place] [address] Referring Physician Rheumatology 03/11/22 Brit More NP [address] [place] [address] Nurse Practitioner Cardiovascular Disease 03/11/22 Cliff Ronquillo NP [address] [place] [address] [address] [place] [address] Nurse Practitioner Nurse Practitioner 05/05/22 Dick Aguilar PA [address] [place] [address] [address] [place] [address] Physician Director Federal Orthopedic Surgery 11/11/22 Gavin Sewell MD [address] [facility] [place] [address] Surgeon Orthopedic Surgery 12/24/22 documented as of this encounter
--- OUTSIDE RECORDS SUMMARY | 2024-10-04 13:32 | XMS_ITS | Clinical Summary ---
Author Organization [facility] Address [address] [place] [address] Phone Care Team Providers Care Conveyor Operator Name Role Phone Jose Cruz Ledezma Primary Care Provider [phone] Allergies Active Allergy Reactions Criticality Noted Date Comments Fluocinolone Other (see Comments) Low 02/14/2019 Ciprofloxacin Other (see Comments) High 06/02/2019 Sulfur Dioxide Hives Low 02/14/2019 Medications Aspirin 162 MG Tablet Delayed Response Take 162 mg by mouth. Active omeprazole (PRILOSEC) 20 MG CAPSULE DELAYED RELEASE Take 20 mg by mouth daily. Active LISINOPRIL PO Take by mouth. A ctive metoprolol Succinate (TOPROL-XL) 50 MG TABLET SR 24 HR Take 50 mg by mouth daily. Active levothyroxine (SYNTHROID) 75 MCG Tablet Take 75 mcg by mouth daily. Active pravastatin (PRAVACHOL) 80 MG Tablet Take 80 mg by mouth daily. Active hydroxychloroqu ine (PLAQUENIL) 200 MG Tablet Take 200 mg by mouth daily. Active ezetimibe (ZETIA) 10 MG Tablet Take 10 mg by mouth daily. Active DULoxetine (CYMBALTA) [address] Particles Take 60 mg by mouth daily. Active Cyanocobalamin (B-12 PO) Take 1,000 mg by mouth. Active Multiple Vitamin (MULTI-VITAMIN PO) Take by mouth. Activ e lidocaine (LIDODERM) 5 % Patch 1 Patch by Transdermal route every 24 hours. Active vitamin D (CHOLECALCIFERO L) 1000 UNIT Tablet Take 1,000 Units by mouth daily. Active Cyclobenzaprine HCl (FLEXERIL PO) Take 10 mg by mouth. Active ALPRAZolam (XANAX) 0.25 MG Tablet Take 0.25 mg by mouth 3 times daily as needed. Active OXYCODONE HCL PO Take 5 mg by mouth. Active methylPREDNISol one (MEDROL DOSPACK) 4 MG Tablet Therapy PackIndications :Cough Use as per instructions on package. 1 Dose Pack 9 Active budesonide-form oterol fumarate (SYMBICORT) 160-4.5 MCG/ACT AerosolIndicati ons:Cough take 2 Puffs by inhalation 2 times daily. 1 Inhaler 9 Active azithromycin (ZITHROMAX) 250 MG TabletIndicatio ns:Cough 2 tab(s) daily for 1 day, then 1 tab(s) daily for days 2-5. 6 Tab 9 Active fluticasone (FLONASE) 50 MCG/ACT SuspensionIndic ations:Cough 1-2 Sprays by Nasal route daily. Use in each nostril as directed. 1 Bottle 3 9 Active loratadine (CLARITIN) 10 MG Tablet Take 1 Tab by mouth daily. 90 Tab 9 Active guaiFENesin-cod eine (TUSSI-ORGANIDI N NR) 100-10 MG/5ML Syrup Take 5 mL by mouth every 6 hours as needed for Cough. 150 mL 9 Active ketorolac (TORADOL) 10 MG Tablet Take 1 Tab by mouth every 6 hours as needed for Mild or more severe pain. 15 Tab 9 Active Beclomethasone Diprop HFA (QVAR REDIHALER) 80 MCG/ACT AEROSOL, BREATH ACTIVATED take 2 Puffs by inhalation. 9 Active NIFEdipine (PROCARDIA-XL) 30 MG TABLET SR 24 HR 3 9 Active lisinopril-hydr oCHLOROthiazide (PRINZIDE, ZESTORETIC) 20-12.5 MG Tablet TK 2 TS PO D 3 9 Active rivaroxaban (XARELTO) 20 MG Tablet Take 1 Tab by mouth daily. Take with food. 21 Tab 9 Active traMADol (ULTRAM) 50 MG Tablet Take 1-2 Tabs by mouth every 6 hours as needed for Moderate or more severe pain. 10 Tab 9 Active Active Problems No known active problems Family History Medical History Relation Name Comments Cancer Father Asthma Mother Hypertension Mother Thyroid Disease Sister Relation Name Status Comments Father Mother Sister Social History Tobacco Use Types Packs/Day Years Used Date Smoking Tobacco: Former Cigarettes Q uit: 02/14/2005 Smokeless Tobacco: Never Alcohol Use Standard Drinks/Week Comments Yes 0 (1 standard drink = 0.6 oz pur e alcohol) Comments No Sex and Gender Information Value Date Recorded Sex Assigned at Not on file Legal Sex Female 8:17 PM CDT Gender Identity Not on file Sexual Orientation Not on file Last Filed Vital Signs Vital Sign Reading Time Taken Comments Blood Pressure 128/93 06/02/2019 3:33 PM CDT Pulse 99 06/02/2019 3:33 PM CDT Temperature 36.7 C (98.1 F) 06/02/2019 3:33 PM CDT Respiratory Rate 18 06/02/2019 3:33 PM CDT Oxygen Saturation 99% 06/02/2019 3:33 PM CDT Inhaled Oxygen Concentration - - Weight 70.3 kg (155 lb) 06/02/2019 3:33 PM CDT Height 154.9 cm (5' 1 ) 06/02/2019 3:33 PM CDT Body Mass Index 29.29 06/02/2019 3:33 PM CDT Plan of Treatment Health Maintenance Due Date Last Done Comments Hepatitis C Virus (HCV) Screening 1960 TdaP Immunization 1960 Zoster Immunization (1 of 2) 1981 Pap Smear 1983 Cervical Cancer Screening (CCS) 1992 HPV/Cotest 1992 Colonoscopy 2007 Colorectal Cancer Screening 2007 Cologuard 2012 Immunochemical Fecal Occult Blood 2012 Mammogram 2012 Pneumococcal Immunization (5 0+ years) (1 of 1 - PCV) 2012 SARS-COV-2 Immunization (3 - Pfizer risk series) 05/20/2021 04/22/2021, 04/01/2021 Respiratory Syncytial Virus (RSV) Immunization (Adult) (1 - Risk 60-74 years 1-dose series) 2022 Influenza Immunization (#1) 2024 06/21/2019 Hepatitis B Immunization Aged Out No longer eligible based on patient's age to complete this topic Meningococcal Immunization (ACWY) Aged Out No longer eligible b ased on patient's age to complete this topic Pneumococcal Immunization Combined Aged Out No longer eligible b ased on patient's age to complete this topic Rotavirus Immunization Aged Out No lo nger eligible based on patient's age to complete this topic Insurance MEDICARE [facility] [place] [id number] [facility] GENERIC Care Teams Conveyor Operator Relationship Specialty Start Date End Date Jose Cruz Ledezma PAC [address] [place] [id number] PCP - General Physician Wind Technician 01/28/20
--- OUTSIDE RECORDS SUMMARY | 2024-10-04 13:32 | XMS_ITS | Clinical Summary ---
Author Organization [facility] Address [address] [place] [address] Phone Care Team Providers Care Account Auditor Name Role Phone JAM MCDONNELL PA-C Primary Care Provider [phone] Reason for Visit and Chief Complaint LEXISCAN CARDIOLITE Plan of Treatment No Plan of Treatment [...] Encounters Encounter Provider Location Date Check-In Time Check-Out Time Diagnosis LEXISCAN CARDIOLITE ELTON GROVER MD [facility] 08/02/20 23 9:30AM 11:24AM Insurance Includes: Active Insurance Policies Plan Name Member ID Group # Subscriber Relationship Effect cyn Dates 1 - BLUE CROSS MEDICARE ADVANTAGE [id number] NIGHAT DELANEY Self Clinical Notes Includes: Clinical Notes from this encounter No Clinical Notes Recorded
--- OUTSIDE RECORDS SUMMARY | 2024-10-04 13:32 | XMS_ITS | Encounter Summary ---
Author Organization [facility] Address [address] [place] [address] Care Team Providers Care Scheduler Conveyor Name Role Phone Yg Lee MD Primary Care Provider [phone] Shandra Ruffin APRN-[facility] Primary Care Provider Yg Lee MD Primary Care Provider [phone] Shandra Ruffin APRN-[facility] Primary Care Provider Yg Lee MD Primary Care Provider [phone] Shandra Ruffin APRN-[facility] Primary Care Provider Encounter Details Date Type Department Care Team (Late st Contact Info) Description 05/18/2019 Telephone [facility] [address] [place] [address] Mitchell Zamarripa MD [address] [place] [address] [place] [address] Social History Tobacco Use Types Packs/Day Years Used Date Smoking Tobacco: Every Day Cigarettes Alcohol Use Standard Drinks/Week Comments Yes 0 (1 standard drink = 0.6 oz pur e alcohol) occasional Sex and Gender Information Value Date Recorded Sex Assigned at Not on file Gender Identity Not on file Sexual Orientation Not on file documented as of this encounter Miscellaneous Notes * Telephone Encounter - Zelda Freedman - 05/18/2019 2:33 PM CDT Current Provider name:Mitchell Zamarripa Reason for call: Pt called about BMP appt. She stated she has already been waiting seven months for an appointment and now she has to wait until November for her first appointment. She wants to know is there anyway she can be seen sooner. Please give her a call. [place] Patient Call Back number: [phone]. documented in this encounter Plan of Treatment Not on file documented as of this encounter Visit Diagnoses Not on filedocumented in this encounter Care Teams Scheduler Conveyor Relationship Specialty Start Date End Date Yg Lee MD [address] [place] [phone] PCP - General 10/28/11 05/23/19 Shandra Ruffin APRN-[employer] [address] [place], [place] [phone] PCP - General 05/24/19 07/20/20 Yg Lee MD [address] [place], [place] [phone] PCP - General Internal Medicine 07/21/20 07/21/20 Shandra Ruffin APRN-[employer] [address] [place], [place] [phone] PCP - General 07/22/20 11/15/21 Yg Lee MD [address] [place] [phone] PCP - General Internal Medicine 11/16/21 04/01/22 Shandra Ruffin APRN-[employer] [address] [place], [place] [phone] PCP - General 04/02/22 documented as of this encounter
--- OUTSIDE RECORDS SUMMARY | 2024-10-04 13:32 | XMS_ITS ---
Care Plan - [facility] Created on: October 04, 2024 NIGHAT DELANEY : 1960 Sex: Female Author Organization [facility] Address [address] [place] [address] Phone Care Team Providers Care Clothing Patternmaker Name Role Phone JAM MCDONNELL PA-C Primary Care Provider [phone]
--- OUTSIDE RECORDS SUMMARY | 2024-10-04 13:32 | XMS_ITS | Data Portability ---
[facility] Address [address] [place] [address] Care Team Providers Care Quality Control Inspector Heading Name Role Phone JAM LEDEZMA Primary Care Provider Assessment No assessment recorded. Plan of Treatment Reminders Order Date Submit Date Provider Last Modified By Organization Details Last Modified Time Details Appointments None recorde d. Lab PTH (parath yroid hormone ), intact + calcium , serum or plasma 2019 020 hspraggs [facility], [address] [place] [address], [address], [place], [address], 0 15:26:23 unliste d lab - complia nce drug analysi s, ur 2019 020 REUBEN [facility], [address] [facility], [address], [place], [address], 0 15:09:11 PTH (parath yroid hormone ), intact + calcium , serum or plasma 2019 020 bbertoglioma [facility], [address] [facility], [address], [place], [address], 0 18:10:55 Referral oncolog ist referra l - ANABEL 2019 020 tima Rivero MD, 4 [facility] , [address], [address], 0 11:06:22 dermato logist referra l 2019 ssander Not available 0 14:26:11 orthope dic referra l 2019 ssander [facility] Of Orthopedics, [address] [facility], [place], [address], 0 14:14:57 Procedures None recorde d. Surgeries None recorde d. Imaging XR, lumbar spine 2019 REUBEN [facility] ([facility]) Scheduling, [address] [facility], [place], [address], 0 14:17:01 CT, lower leg, w/ contras t 2019 [facility] (Scheduling), [address] [facility], [place], [address], 0 15:02:33 NM, bone scan 2019 bbertoglioma [place] [facility] (Radiology), [address] [facility] , [place], [address], 0 15:52:19 Medication Orders gabapen tin 100 mg capsule 2019 INTERFACE [id number], [address], [place], [place], [id number], 0 12:02:47 calcito marlo (salmon ) 200 unit/ac tuation nasal spray 2019 020 INTERFACE [facility][id number], [address], [place], [place], [id number], 0 15:02:19 acetami nophen 300 mg-code ine 30 mg tablet 2019 020 [facility]turnerma [id number], [address], [place], [place], [id number], 1 17:09:49 Patient TargetsNo targets recorded. Patient Instructions Encounter Date Encounter Id Patient Instructions Last Modified By Organization Details Last Modified Time 01/30/2020 [id number] osteoporosis: care instructions [email or web address] Not available 01/30/2020 15:02:14 Reason for Referral Digital Imager Referral for C omplaining of a rash Referring Physician: Jam Ledezma [facility], Encounter Date: 02/20/2020 ANABEL Referring Physician: Jam Ledezma [facility], Encounter Date: 02/20/2020 Orthopedic Referral for Path ological fracture of right tibia Referring Physician: Jam Ledezma [facility], Encounter Date: 04/22/2020 Results Created Date Observation Date Name Description Value Unit Range Abnormal Flag Note LastModifiedBy Organization Detail LastModifiedTime 12/27/19 20 12/28/2019 CMP, serum or plasm a glucose 91 mg/dL 65-99 Not Available [facility] ([facility]) [address] [place], [address], 12/28/2019 07:08:47 12/27/1912/28/2019 CMP, serum or plasm a BUN 15 mg/dL 6-24 Not Available [facility] ([facility]) [address] [place], [address], 12/28/2019 07:08:47 12/27/1912/28/2019 CMP, serum or plasm a creatinine 0.80 mg/dL 0.57-1 .00 Not Available [facility] ([facility]) [address] [place], [address], 12/28/2019 07:08:47 12/27/1912/28/2019 CMP, serum or plasm a eGFR if nonafricn AM 82 mL/mi n/1.7 3 >59 Not Available [facility] ([facility]) [address] [place], [address], 12/28/2019 07:08:47 12/27/1912/2712/28/2019 CMP, serum or plasm a eGFR if africn AM 95 mL/mi n/1.7 3 >59 Not Available [facility] ([facility]) [address] [facility] [place], [address], 12/28/2019 07:08:47 12/27/19 20 12/28/2019 CMP, serum or plasm a BUN/creatini ne ratio 19 9-23 Not Available [facility] ([facility]) [address] [facility] [place], [address], 12/28/2019 07:08:47 12/27/1912/28/2019 CMP, serum or plasm a sodium 138 mmol/ L 134-14 4 Not Available [facility] ([facility]) [address] [place], [address], 12/28/2019 07:08:47 12/27/19 20 12/28/2019 CMP, serum or plasm a potassium 4.2 mmol/ L 3.5-5. 2 Not Available [facility] ([facility]) [address] [place], [address], 12/28/2019 07:08:47 12/27/19 20 12/28/2019 CMP, serum or plasm a chloride 98 mmol/ L 96-106 Not Available [facility] ([facility]) [address] [place], [address], 12/28/2019 07:08:47 12/27/1912/28/2019 CMP, serum or plasm a carbon dioxide, total 23 mmol/ L 20-29 Not Available [facility] ([facility]) [address] [place], [address], 12/28/2019 07:08:47 12/27/1912/28/2019 CMP, serum or plasm a calcium 10.1 mg/dL 8.7-10 .2 Not Available [facility] ([facility]) [address] [place], [address], 12/28/2019 07:08:47 12/27/19 20 12/28/2019 CMP, serum or plasm a protein, total 7.3 g/dL 6.0-8. 5 Not Available [facility] ([facility]) [address] [place], [address], 12/28/2019 07:08:47 12/27/1912/28/2019 CMP, serum or plasm a albumin 4.8 g/dL 3.8-4. 9 Not Available [facility] ([facility]) [address] [place], [address], 12/28/2019 07:08:47 12/27/1912/28/2019 CMP, serum or plasm a globulin, total 2.5 g/dL 1.5-4. 5 Not Available [facility] ([facility]) [address] [place], [address], 12/28/2019 07:08:47 12/27/1912/28/2019 CMP, serum or plasm a A/G ratio 1.9 1.2-2. 2 Not Available [facility] ([facility]) [address] [place], [address], 12/28/2019 07:08:47 12/27/1912/28/2019 CMP, serum or plasm a bilirubin, total 0.4 mg/dL 0.0-1. 2 Not Available [facility] ([facility]) [address] [place], [address], 12/28/2019 07:08:47 12/27/1912/28/2019 CMP, serum or plasm a alkaline phosphatase 114 IU/L 39-117 Not Available [facility]) [address] [place], [address], 12/28/2019 07:08:47 12/27/1912/28/2019 CMP, serum or plasm a AST (SGOT) 40 IU/L 0-40 Not Available [facility] ([facility]) [address], [place], [address], 12/28/2019 07:08:47 12/27/1912/28/2019 CMP, serum or plasm a ALT (SGPT) 29 IU/L 0-32 Not Available [facility] ([facility]) [address] [facility], [place], [address], 12/28/2019 07:08:47 12/27/19 20 12/28/2019 vitam in D, 25-hy droxy , total , serum vitamin D, 25-hydroxy 34.2 NG/mL 30.0-1 00.0 Vitam in D defic iency has been defin ed by the [facility]i [facility] in[facility] and an Endoc rine Socie ty pract ice guide line as a level of serum 25-OH vitam in D less than 20 ng/mL (1,2) . The Endoc rine Socie ty went on to furth er defin e vitam in D insuf ficie ncy as a level betwe en 21 and 29 ng/mL (2). 1. IOM ([facility]). 2010. Melany ry refer ence kristina es for calci um and D. Zackary baum [place]: [facility] . 2. Patricia valdez MF, Jluis albert [place], [place] off-F errar i GARCIA, et al. Evalu ation , treat ment, and preve ntion of vitam in D defic iency : an Endoc rine Socie ty clini tessie pract ice guide line. JCEM. 2010; 96(7) :1911 -30. Not Available [facility] ([facility]) [address] [facility], [place], [address], 12/28/2019 07:08:48 02/11/2002/19/2020 drug scree n, urine summary report (summary) FINAL ===== ===== ===== ===== ===== ===== ===== ===== ===== ===== ===== ===== ===== === TOXAS SURE COMP DRUG BELINDA SIS,U R ===== ===== ===== ===== ===== ===== ===== ===== ===== ===== ===== ===== ===== === Test Resul t Flag Units Drug Prese nt and Decla red [place] [address] EXPEC JALYN ng/mg creat Morph ine 1924 EXPEC JALYN ng/mg creat Normo rphin e 572 EXPEC JALYN ng/mg creat [place] deine 1659 EXPEC JALYN ng/mg creat Sourc es of codei ne inclu de sched uled presc ripti on medic ation s; morph ine is an expec jalyn metab olite of codei ne. Other sourc es of morph ine inclu de sched uled presc ripti on medic ation s or as a metab olite of heroi n. Normo rphin e is an expec jalyn metab olite of morph ine. [place] deine is an expec jalyn metab olite of codei ne. Gabap entin PRESE NT EXPEC JALYN Desme thylc yclob enzap rine PRESE NT EXPEC JALYN Desme thylc yclob enzap rine is an expec jalyn metab olite of cyclo benza richard . Dulox etine PRESE NT EXPEC JALYN Aceta minop hen PRESE NT EXPEC JALYN Ateno lol PRESE NT EXPEC JALYN Drug Absen t but Decla red for Presc ripti on Verif icati on Alpra zolam Not Detec jalyn UNEXP ECTED ng/mg creat Oxyco done Not Detec jalyn UNEXP ECTED ng/mg creat Cital opram Not Detec jalyn UNEXP ECTED Venla faxin e Not Detec jalyn UNEXP ECTED Proch lorpe razin e Not Detec jalyn UNEXP ECTED Diclo fenac Not Detec jalyn UNEXP ECTED Diclo fenac , as indic ated in the decla red medic ation list, is not alway s detec jalyn even when used as direc jalyn. Salic ylate Not Detec jalyn UNEXP ECTED Aspir in, as indic ated in the decla red medic ation list, is not alway s detec jalyn even when used as direc jalyn. Lidoc mily Not Detec jalyn UNEXP ECTED Lidoc mily, as indic ated in the decla red medic ation list, is not alway s detec jalyn even when used as direc jalyn. Metop rolol Not Detec jalyn UNEXP ECTED ===== ===== ===== ===== ===== ===== ===== ===== ===== ===== ===== ===== ===== === Test Resul t Flag Units Ref Range Creat inine 29 mg/dL >=20 ===== ===== ===== ===== ===== ===== ===== ===== ===== ===== ===== ===== ===== === Decla red Medic ation s: The allen ing and inter preta tion on this repor t are based on the follo wing decla red medic ation s. Unexp ected resul ts may arise from inacc uraci es in the decla red medic ation s. Not e: The testi ng scope of this panel inclu dodie these medic ation s: Alpra zolam Ateno lol Codei ne (Acet amino phen- Codei ne) Cyclo benza richard Dulox etine Escit alopr am (Arnel pro) Gabap entin Metop rolol Oxyco done Proch lorpe razin e Venla faxin e Not e: The testi ng scope of this panel does not inclu de small to moder ate amoun ts of these repor jalyn medic ation s: Aceta minop hen (Acet amino phen- Codei ne) Aspir in (Aspi rin 81) Diclo fenac Lidoc mily (Lido derm) Not e: The testi ng scope of this panel does not inclu de follo wing repor jalyn medic ation s: Alend ronat e Amlod ipine Beclo metha sone (QVAR ) Calci tonin Susan calci ferol Clobe tasol Ezeti mibe Fluti kelsie e Edgard chlor othia zide (Samantha nopri l-HCT Z) Edgard xychl oroqu ine Levot hyrox ine Lisin opril (Samantha nopri l-HCT Z) Lorat adine Nitro furan toin Omepr azole Ondan setro n Prava stati n Predn isone Rosuv astat in ===== ===== ===== ===== ===== ===== ===== ===== ===== ===== ===== ===== ===== === For clini tessie consu ltati on, pleas e call . ===== ===== ===== ===== ===== ===== ===== ===== ===== ===== ===== ===== ===== === Not Available [facility] [address] [facility], [place], [address], 02/19/2020 15:09:11 02/11/20 20 02/19/2020 drug scree n, urine pdf . Not Available [facility] [address] [facility], [place], [address], 02/19/2020 15:09:11 04/28/20 20 04/28/2020 PTH (para thyro id hormo ne), intac t + calci um, serum or plasm a intact PTH Commen t Inter preta tion Intac t PTH Calci um (pg/m L) (mg/d L) Emily l 15 - 65 8.6 - 10.2 Prima ry Hyper parat hyroi dism >65 >10.2 Secon levar Hyper parat hyroi dism >65 <10.2 Non-P john yroid Hyper calce reva <65 >10.2 Hypop john yroid ism <15 < 8.6 Non-P john yroid Hypoc alcem ia 15 - 65 < 8.6 Not Available [facility] ([facility]) [address] [place], [address], 04/29/2020 17:08:21 04/28/20 20 04/29/2020 PTH (para thyro id hormo ne), intac t + calci um, serum or plasm a calcium TNP mg/dL No serum gel recei dillon. Not Available [facility] ([facility]) [address] [place], [address], 04/29/2020 17:08:21 04/28/20 20 04/29/2020 PTH (para thyro id hormo ne), intac t + calci um, serum or plasm a PTH, intact 63 pg/mL 15-65 Not Available [facility] ([facility]) [address] [place], [address], 04/29/2020 17:08:21 04/28/20 20 04/29/2020 speci men statu s repor t specimen status report TNP No serum gel recei dillon. TEST: [id number] 6 Calci um Panel : [id number] 1 Not Available [facility] ([facility]) [address] [place], [address], 04/29/2020 17:08:22 04/30/2005/01/2020 TSH + free T4, serum TSH 4.230 uIU/m L 0.450- 4.500 Not Available [facility] ([facility]) [address] [place], [address], 05/01/2020 08:17:01 04/30/2005/01/2020 TSH + free T4, serum T4,free(dire ct) 1.18 NG/dL 0.82-1 .77 Not Available [facility] ([facility]) [address] [place], [address], 05/01/2020 08:17:01 04/30/2005/01/2020 CBC w/ auto diff WBC 5.2 x10e3 /uL 3.4-10 .8 Not Available [facility] ([facility]) [address] [facility], [place], [address], 05/01/2020 08:17:02 04/30/2005/01/2020 CBC w/ auto diff RBC 4.16 x10e6 /uL 3.77-5 .28 Not Available [facility] ([facility]) [address] [facility], [place], [address], 05/01/2020 08:17:02 04/30/2005/01/2020 CBC w/ auto diff hemoglobin 13.9 g/dL 11.1-1 5.9 Not Available [facility] ([facility]) [address] [facility], [place], [address], 05/01/2020 08:17:02 04/30/2005/01/2020 CBC w/ auto diff hematocrit 39.7 % 34.0-4 6.6 Not Available [facility] ([facility]) [address] [facility], [place], [address], 05/01/2020 08:17:02 04/30/2005/01/2020 CBC w/ auto diff MCV 95 fL 79-97 Not Available [facility] ([facility]) [address] [place], [address], 05/01/2020 08:17:02 04/30/2005/01/2020 CBC w/ auto diff MCH 33.4 pg 26.6-3 3.0 above high normal Not Available [facility] ([facility]) [address] [place], [address], 05/01/2020 08:17:02 04/30/2005/01/2020 CBC w/ auto diff MCHC 35.0 g/dL 31.5-3 5.7 Not Available [facility] ([facility]) [address] [facility], [place], [address], 05/01/2020 08:17:02 04/30/2005/01/2020 CBC w/ auto diff RDW 13.4 % 11.7-1 5.4 Not Available [facility] ([facility]) [address] [facility], [place], [address], 05/01/2020 08:17:02 04/30/2005/01/2020 CBC w/ auto diff platelets 296 x10e3 /uL 150-45 0 Not Available [facility] ([facility]) [address] [facility], [place], [address], 05/01/2020 08:17:02 04/30/2005/01/2020 CBC w/ auto diff neutrophils 72 % not estab. Not Available [facility] ([facility]) [address] [facility], [place], [address], 05/01/2020 08:17:02 04/30/2005/01/2020 CBC w/ auto diff lymphs 14 % not estab. Not Available [facility] ([facility]) [address] [facility], [place], [address], 05/01/2020 08:17:02 04/30/2005/01/2020 CBC w/ auto diff monocytes 7 % not estab. Not Available [facility] ([facility]) [address] [facility], [place], [address], 05/01/2020 08:17:02 04/30/2005/01/2020 CBC w/ auto diff eos 4 % not estab. Not Available [facility] ([facility]) [address] [facility], [place], [address], 05/01/2020 08:17:02 04/30/2005/01/2020 CBC w/ auto diff basos 2 % not estab. Not Available [facility] ([facility]) [address] [facility], [place], [address], 05/01/2020 08:17:02 04/30/2005/01/2020 CBC w/ auto diff immature cells LINUX ADMINISTRATOR Not Available [facility] ([facility]) [address] [place], [address], 05/01/2020 08:17:02 04/30/2005/01/2020 CBC w/ auto diff neutrophils (absolute) 3.8 x10e3 /uL 1.4-7. 0 Not Available [facility] ([facility]) [address] [place], [address], 05/01/2020 08:17:02 04/30/2005/01/2020 CBC w/ auto diff lymphs (absolute) 0.7 x10e3 /uL 0.7-3. 1 Not Available [facility] ([facility]) [address] [place], [address], 05/01/2020 08:17:02 04/30/2005/01/2020 CBC w/ auto diff monocytes(ab solute) 0.4 x10e3 /uL 0.1-0. 9 Not Available [facility] ([facility]) [address] [place], [address], 05/01/2020 08:17:02 04/30/2005/01/2020 CBC w/ auto diff eos (absolute) 0.2 x10e3 /uL 0.0-0. 4 Not Available [facility] ([facility]) [address] [place], [address], 05/01/2020 08:17:02 04/30/2005/01/2020 CBC w/ auto diff baso (absolute) 0.1 x10e3 /uL 0.0-0. 2 Not Available [facility] ([facility]) [address] [place], [address], 05/01/2020 08:17:02 04/30/2005/01/2020 CBC w/ auto diff immature granulocytes 1 % not estab. Not Available [facility] ([facility]) [address] [facility] [place], [address], 05/01/2020 08:17:02 04/30/2005/01/2020 CBC w/ auto diff immature grans (abs) 0.0 x10e3 /uL 0.0-0. 1 Not Available [facility] ([facility]) [address] [facility], [place], [address], 05/01/2020 08:17:02 04/30/2005/01/2020 CBC w/ auto diff NRBC LINUX ADMINISTRATOR Not Available [facility] ([facility]) [address] [facility] [place], [address], 05/01/2020 08:17:02 04/30/2005/01/2020 CBC w/ auto diff hematology comments: LINUX ADMINISTRATOR Not Available [facility] ([facility]) [address] [facility], [place], [address], 05/01/2020 08:17:02 04/30/2005/01/2020 CMP, serum or plasm a glucose 109 mg/dL 65-99 above high normal Not Available [facility] ([facility]) [address] [place], [address], 05/01/2020 08:17:03 04/30/2005/01/2020 CMP, serum or plasm a BUN 12 mg/dL 6-24 Not Available [facility] ([facility]) [address] [place], [address], 05/01/2020 08:17:03 04/30/2005/01/2020 CMP, serum or plasm a creatinine 0.65 mg/dL 0.57-1 .00 Not Available [facility] ([facility]) [address] [place], [address], 05/01/2020 08:17:03 04/30/2005/01/2020 CMP, serum or plasm a eGFR if nonafricn AM 99 mL/mi n/1.7 3 >59 Not Available [facility] ([facility]) [address] [facility] [place], [address], 05/01/2020 08:17:03 04/30/20 20 05/01/2020 CMP, serum or plasm a eGFR if africn AM 114 mL/mi n/1.7 3 >59 Not Available [facility] ([facility]) [address] [facility] [place], [address], 05/01/2020 08:17:03 04/30/20 20 05/01/2020 CMP, serum or plasm a BUN/creatini ne ratio 18 9-23 Not Available [facility] ([facility]) [address] [facility] [place], [address], 05/01/2020 08:17:03 04/30/2005/01/2020 CMP, serum or plasm a sodium 139 mmol/ L 134-14 4 Not Available [facility] ([facility]) [address] [facility] [place], [address], 05/01/2020 08:17:03 04/30/2005/01/2020 CMP, serum or plasm a potassium 4.4 mmol/ L 3.5-5. 2 Not Available [facility] ([facility]) [address] [facility] [place], [address], 05/01/2020 08:17:03 04/30/2005/01/2020 CMP, serum or plasm a chloride 96 mmol/ L 96-106 Not Available [facility] ([facility]) [address] [facility] [place], [address], 05/01/2020 08:17:03 04/30/2005/01/2020 CMP, serum or plasm a carbon dioxide, total 27 mmol/ L 20-29 Not Available [facility] ([facility]) [address] [facility] [place], [address], 05/01/2020 08:17:03 04/30/2005/01/2020 CMP, serum or plasm a calcium 10.0 mg/dL 8.7-10 .2 Not Available [facility] ([facility]) [address] [place], [address], 05/01/2020 08:17:03 04/30/2005/01/2020 CMP, serum or plasm a protein, total 7.0 g/dL 6.0-8. 5 Not Available [facility] ([facility]) [address] [place], [address], 05/01/2020 08:17:03 04/30/2005/01/2020 CMP, serum or plasm a albumin 4.6 g/dL 3.8-4. 9 Not Available [facility] ([facility]) [address] [place], [address], 05/01/2020 08:17:03 04/30/2005/01/2020 CMP, serum or plasm a globulin, total 2.4 g/dL 1.5-4. 5 Not Available [facility] ([facility]) [address] [place], [address], 05/01/2020 08:17:03 04/30/2005/01/2020 CMP, serum or plasm a A/G ratio 1.9 1.2-2. 2 Not Available [facility] ([facility]) [address] [place], [address], 05/01/2020 08:17:03 04/30/2005/01/2020 CMP, serum or plasm a bilirubin, total 0.5 mg/dL 0.0-1. 2 Not Available [facility] ([facility]) [address] [place], [address], 05/01/2020 08:17:03 04/30/2005/01/2020 CMP, serum or plasm a alkaline phosphatase 231 IU/L 39-117 above high normal Not Available [facility] ([facility]) [address] [facility], [place], [address], 05/01/2020 08:17:03 04/30/20 20 05/01/2020 CMP, serum or plasm a AST (SGOT) 83 IU/L 0-40 above high normal Not Available [facility] ([facility]) [address] [facility], [place], [address], 05/01/2020 08:17:03 04/30/20 20 05/01/2020 CMP, serum or plasm a ALT (SGPT) 63 IU/L 0-32 above high normal Not Available [facility] ([facility]) [address] [facility], [place], [address], 05/01/2020 08:17:03 04/30/20 20 04/30/2020 urina lysis , dipst ick Leukocytes Negati ve Not Available In-Office Order Internal Use Only DO Not Attach Compendium DO Not Attach Compendium, Do Not Delete/merge, [id number] 04/30/2020 11:03:06 04/30/2004/30/2020 urina lysis , dipst ick Nitrite negati ve Not Available In-Office Order Internal Use Only DO Not Attach Compendium DO Not Attach Compendium, Do Not Delete/merge, [id number] 04/30/2020 11:03:06 04/30/2004/30/2020 urina lysis , dipst ick Urobilinogen .2 Not Available In-Of fice Order Internal Use Only DO Not Attach Compendium DO Not Attach Compendium, Do Not Delete/merge, [id number] 04/30/2020 11:03:06 04/30/2004/30/2020 urina lysis , dipst ick Protein Negati ve Not Available In-Office Order Internal Use Only DO Not Attach Compendium DO Not Attach Compendium, Do Not Delete/merge, [id number] 04/30/2020 11:03:06 04/30/20 20 04/30/2020 urina lysis , dipst ick pH 6.5 Not Available In-Office Order Internal Use Only DO Not Attach Compendium DO Not Attach Compendium, Do Not Delete/merge, [id number] 04/30/2020 11:03:06 04/30/20 20 04/30/2020 urina lysis , dipst ick Blood Negati ve Not Available In-Office Order Internal Use Only DO Not Attach Compendium DO Not Attach Compendium, Do Not Delete/merge, [id number] 04/30/2020 11:03:06 04/30/20 20 04/30/2020 urina lysis , dipst ick Specific [place] 1.020 Not Available In-Off ice Order Internal Use Only DO Not Attach Compendium DO Not Attach Compendium, Do Not Delete/merge, 04/30/2020 11:03:06 04/30/20 20 04/30/2020 urina lysis , dipst ick Ketone Negati ve Not Available In-Office Order Internal Use Only DO Not Attach Compendium DO Not Attach Compendium, Do Not Delete/merge, 04/30/2020 11:03:06 04/30/20 20 04/30/2020 urina lysis , dipst ick Bilirubin Negati ve Not Available In-Office Order Internal Use Only DO Not Attach Compendium DO Not Attach Compendium, Do Not Delete/merge, 04/30/2020 11:03:06 04/30/20 20 04/30/2020 urina lysis , dipst ick Glucose Negati ve Not Available In-Office Order Internal Use Only DO Not Attach Compendium DO Not Attach Compendium, Do Not Delete/merge, 04/30/2020 11:03:06 04/30/20 20 04/30/2020 urina lysis , dipst ick Appearance Clear Not Available In-Offi ce Order Internal Use Only DO Not Attach Compendium DO Not Attach Compendium, Do Not Delete/merge, 04/30/2020 11:03:06 04/30/20 20 04/30/2020 urina lysis , dipst ick Color Yellow Not Available In-Office Order Internal Use Only DO Not Attach Compendium DO Not Attach Compendium, Do Not Delete/merge, 04/30/2020 11:03:06 01/28/20 20 01/28/2020 XR, lumba r spine No observ ation record ed. [address], [place], [address], 02/07/2020 17:22:18 02/19/20 20 02/19/2020 NM, bone scan No observ ation record ed. [facility] [address] [facility] [place], [address], 02/19/2020 17:52:46 03/25/20 20 03/25/2020 bone densi ty No observ [facility] ed. [facility] [address] [facility] [place], [address], 03/28/2020 12:17:03 09/12/19 21 09/10/2020 cardi ac stres s test No observ ation record ed. [facility] [address], [place], [address], 09/12/2020 16:33:08 12/18/19 21 12/09/2020 pulmo nary funct ion test* No observ ation record ed. [facility] [address], [place], [address], 12/17/2020 15:14:10 01/03/20 21 01/02/2021 US, duple x, renal arter y No observ ation record ed. [facility] [address], [place], [address], 01/02/2021 14:47:22 01/03/20 21 01/02/2021 stres s echoc ardio gram No observ ation record ed. [facility] [address], [place], [address], 01/02/2021 14:47:41 11/28/19 24 11/25/2023 US, echoc ardio gram, trans esoph ageal No observ ation record ed. [facility] [address] [facility] [address], [place], [address], 12/08/2023 11:32:40 01/16/20 24 11/23/2023 CT, angio gram, chest , w/ contr ast No observ ation record ed. mmetias [address] [place], [address], 01/16/2024 15:25:06 Result Notes None recorded. Problems Name Problem SNOMED Code Status Onset Date Resolution Date Notes Provider Name and Address Organization Details Recorded Time Drug therapy finding 539681802 Active 2015 CHIO Niño, [place] [facility] 0 11:49:27 Enzyme level - finding 268679713 Active 2017 [place] [facility] 0 11:49:27 Fibromyalgia 892622812 Active 2011 Kallie Sloan [place], [place] [facility] 0 11:49:27 Hypertensive disorder 32213680 Active 2012 Kallie [place] [facility] 0 11:49:27 Osteopenia 799059675 Active 2011 Kallie [place] [facility] 0 11:49:27 Rheumatoid arthritis 20453561 Active 2017 Kallie [place] [facility] 0 11:49:27 Problem Notes None recorded. Procedures Surgical History Date Name Laterality Status Provider Name and Address Organization Details Recorded Time hysterectomy completed Anabela Blanc [place] [facility] 09/06/2019 12:01:29 Imaging Results Imaging Date Name Status LastModified by Organization Details LastModified Time 01/28/2020 XR, lumbar spine completed [place] [address] [place], [address], 02/07/2020 17:22:18 02/19/2020 NM, [facility] [address] [place], [address], 02/19/2020 17:52:46 03/25/[address] [facility] [address] [place], [address], 03/28/2020 12:17:03 09/10/2020 cardiac stress test completed [facility] ([facility]) [address] [facility], [place], [address], 09/12/2020 16:33:08 12/09/2020 pulmonary function test* completed [facility] (Er) [address] [facility] [address], [place], [address], 12/17/2020 15:14:10 01/02/2021 US, duplex, renal artery completed [facility] (Er) [address] [facility], [place], [address], 01/02/2021 14:47:22 01/02/2021 stress echocardiogram completed [facility] (Er) [address] [facility], [place], [address], 01/02/2021 14:47:41 11/25/2023 US, echocardiogram, transesophageal completed [facility] Sub[facility] Abuse Counselor [address] [facility] [place], [address], 12/08/2023 11:32:40 11/23/2023 CT, angiogram, chest, w/ contrast completed [facility] [address] [facility] [place], [address], 01/16/2024 15:25:06 Procedure Notes None recorded. Medical Equipment None Reported. Allergies Allergen ID Allergen Name Allergen Category Reaction Reaction Severity Criticality Documentation Date Start Date Code Code System Note Provider Name and Address Organization Details Recorded Time 041087 Substance with sulfonami de structure and antibacte rial mechanism of action (substanc e) medicatio n hives Not available Not available 09/06/2019 75438 8003 SNOMED Not Available Not Available Not Available 311052 Cipro medicatio n Not available Not available Not available 09/06/201912150 3 RxNorm Not Available Not Available Not Available 386676 ciproflox acin medicatio n myalgias (muscle pain) other moderate moderate Not available 01/25/20202017 2551 RxNorm Not Available Not Available Not Available Medications Name Sig Start Date Stop Date Status Note LastModified by Organization Details LastModified Time nifedipine ER 30 mg tablet,exte nded release 24 hr TAKE 1 TABLET BY MOUTH DAILY 01/24 completed Not Available Not Available Not Available cyclobenzap rine 10 mg tablet take 1 tablet as needed active Not Available Not Available No t Available venlafaxine ER 37.5 mg capsule,ext ended release 24 hr 09/06 completed Not Available Not Available Not Available venlafaxine 75 mg tablet active Not Available Not Available Not Available lisinopril 20 mg-hydrochl orothiazide 12.5 mg tablet TAKE 2 TABLETS BY MOUTH DAILY active Not Available Not Available No t Available azithromyci n 250 mg tablet 09/06 completed Not Available Not Available Not Available metoprolol succinate ER 50 mg tablet,exte nded release 24 hr active Not Available Not Available Not Available atenolol 100 mg tablet TAKE 1 TABLET BY MOUTH EVERY DAY active Not Available Not Available No t Available hydrocodone 5 mg-acetamin ophen 325 mg tablet active Not Available Not Available No t Available prochlorper azine maleate 5 mg tablet 2017 active Not Available Not Available Not Avai lable meloxicam 15 mg tablet TAKE 1 TABLET BY MOUTH EVERY DAY active Not Available Not Available No t Available prednisone 20 mg tablet 02/10 completed Not Available Not Available Not Available alendronate 70 mg tablet active Not Available Not Available Not Available metoprolol succinate ER 100 mg tablet,exte nded release 24 hr take 1 daily 11/25 completed Not Available Not Available Not Available prednisone 5 mg tablet 2017 active Not Available Not Available Not Avai lable diltiazem ER 240 mg capsule,24 hr,extended release active Not Available Not Available Not Available amlodipine 2.5 mg tablet 01/24 completed Not Available Not Available Not Available nifedipine ER 30 mg tablet,exte nded release take 1 tablet by mouth daily 01/24 completed Not Available Not Available Not Available acetaminoph en 300 mg-codeine 30 mg tablet TK ONE T PO Q 6 H 12/19 completed Not Available Not Available Not Available amlodipine 5 mg tablet TAKE 1 TABLET BY MOUTH EVERY DAY active Not Available Not Available No t Available ciprofloxac in 500 mg tablet TAKE 1 TABLET BY MOUTH TWICE DAILY FOR 14 DAYS active Not Available Not Available No t Available omeprazole 40 mg capsule,del ayed release TAKE 1 CAPSULE BY MOUTH EVERY DAY active Not Available Not Available No t Available aspirin 81 mg tablet,eliel yed release 2012 active Not Available Not Available Not Avai lable tramadol 50 mg tablet TAKE 1 TABLET BY MOUTH THREE TIMES DAILY NEEDED 02/10 completed Not Available Not Available Not Available ketorolac 10 mg tablet 09/06 completed Not Available Not Available Not Available levothyroxi ne 75 mcg tablet Take one tab daily active Not Available Not Available No t Available levothyroxi ne 88 mcg tablet active Not Available Not Available Not Available alprazolam 0.25 mg tablet TAKE 1 TABLET BY MOUTH TWICE DAILY active Not Available Not Available No t Available pravastatin 80 mg tablet active Not Available Not Available Not Available Lidoderm 5 % topical patch 1 {patch} by topical route. active Not Available Not Available No t Available calcitonin (salmon) 200 unit/actuat ion nasal spray U 1 SPRAY NASALLY QD UTD active Not Available Not Available No t Available cephalexin 500 mg capsule 09/06 completed Not Available Not Available Not Available Advair Diskus 250 mcg-50 mcg/dose powder for inhalation INHALE 1 PUFF BY MOUTH TWICE DAILY active Not Available Not Available No t Available metoprolol tartrate 50 mg tablet active Not Available Not Available No t Available omeprazole 20 mg capsule,del ayed release TAKE 1 CAPSULE BY MOUTH EVERY DAY active Not Available Not Available No t Available lisinopril 20 mg-hydrochl orothiazide 25 mg tablet active Not Available Not Available Not Available diclofenac sodium 75 mg tablet,eliel yed release TK 1 T PO BID . STOP MOBIC active Not Available Not Available No t Available gabapentin 100 mg capsule TAKE 1 CAPSULE BY MOUTH THREE TIMES DAILY active Not Available Not Available No t Available clobetasol 0.05 % topical ointment 2017 active Not Available Not Available Not Avai lable hydroxychlo roquine 200 mg tablet TAKE 1 TABLET BY MOUTH TWICE DAILY active Not Available Not Available No t Available methylpredn isolone 4 mg tablets in a dose pack 09/06 completed Not Available Not Available Not Available ondansetron 4 mg disintegrat ing tablet DISSOLVE ONE TABLET ON THE TONGUE TWICE DAILY active Not Available Not Available No t Available fluticasone propionate 50 mcg/actuati on nasal spray,suspe nsion U 1 TO 2 SPRAYS IEN D UTD active Not Available Not Available No t Available doxycycline hyclate 100 mg tablet active Not Available Not Available No t Available loratadine 10 mg tablet active Not Available Not Available Not Available metoclopram daphne 10 mg tablet active Not Available Not Available Not Available oxycodone 5 mg tablet take 1 as needed active Not Available Not Available No t Available Lexapro 10 mg tablet active Not Available Not Available No t Available ezetimibe 10 mg tablet TAKE 1 TABLET(10 MG) BY MOUTH DAILY active Not Available Not Available No t Available rosuvastati n 20 mg tablet TAKE 1 TABLET BY MOUTH EVERY DAY active Not Available Not Available No t Available nitrofurant oin monohydrate /macrocryst als 100 mg capsule active Not Available Not Available Not Available duloxetine 30 mg capsule,del ayed release TAKE 1 CAPSULE BY MOUTH EVERY DAY active Not Available Not Available No t Available duloxetine 60 mg capsule,del ayed release take 1 tablet daily active Not Available Not Available No t Available omega-3 acid ethyl esters 1 gram capsule active Not Available Not Available Not Available cholecalcif manisha (vitamin D3) 50 mcg (2,000 unit) tablet active Not Available Not Available Not Available oxycodone 5 mg tablet,oral ONLY (not feeding tubes) 2017 active Not Available Not Available Not Avai lable Vascepa 1 gram capsule active Not Available Not Available Not Available Digox 250 mcg (0.25 mg) tablet active Not Available Not Available N ot Available Virtussin AC 10 mg-100 mg/5 mL oral liquid 12/10 completed Not Available Not Available Not Available potassium chloride ER 20 mEq tablet,exte nded release take one tablet by mouth twice daily active Not Available Not Available No t Available Repatha SureClick 140 mg/mL subcutaneou s pen injector active Not Available Not Available Not Available Qvar RediHaler 80 mcg/actuati on HFA breath activated aerosol INL 2 PFS PO BID active Not Available Not Available No t Available Afluria Qd 2018- (36 mos up)(PF)60 mcg (15 mcg x4)/0.5 mL IM syringe 09/13 completed Not Available Not Available Not Available Vitals Date Recorded Body height Provider Name an d Address Organization Details Last Updated DateTime 01/25/2020 157.48 cm Kallie Sloan MA [facility] 01/25/20 20 11:49:06 Date Recorded Body height Provider Name an d Address Organization Details Last Updated DateTime 01/30/2020 157.48 cm Anabela Blanc MA [facility] 01/30/2020 14:32:47 Date Recorded Body height Body mass index (BMI) Body weight Body temperature Oxygen saturation Oxygen saturation in Arterial blood by Pulse oximetry Heart rate Systolic blood pressure Diastolic blood pressure Provider Name and Address Organization Details Last Updated DateTime 0 157.48 cm 31.1 kg/m2 24782.7 g 98.1 [degF] 93 % 93 % 83 /min 108 mm[Hg] 82 mm[Hg] Anabela Blanc MA [facility] 0 10:40:52 Date Recorded Body height Body mass index (BMI) Body weight Body temperature Oxygen saturation Oxygen saturation in Arterial blood by Pulse oximetry Heart rate Systolic blood pressure Diastolic blood pressure Provider Name and Address Organization Details Last Updated DateTime 0 157.48 cm 31.3 kg/m2 68982 g 98 [degF] 98 % 98 % 80 /min 142 mm[Hg] 90 mm[Hg] Kallie Sloan MA [facility] 0 14:59:34 Social History Question Answer Notes LastModified by Organizat ion Details LastModified Time Tobacco Smoking Status Former Smoker 2012 Anabela Blanc MA null, [facility] 09/06/2019 12:01:14 In The 14 Days Before Symptom Onset, Have You Had Close Contact With A Laboratory-confir med COVID-19 While That Case Was Ill? No Information not available 11/26/2019 If Patient Spent Time In [facility] - Does The Patient Live In [facility]? No Information not available 11/26/2019 In The 14 Days Before Symptom Onset, Have You Had Close Contact With A Person Who Is Under Investigation For COVID-19 While That Person Was Ill? No Information not available 11/26/2019 In The 14 Days Before Symptom Onset, Did The Patient Spend Time In [facility]? No Information not available 11/26/2019 Have You Been To An Area Known To Be High Risk For COVID-19? No Information not available 11/26/2019 Do You Or Have You Ever Used E-cigarettes Or Vape? Never Used Electronic Cigarettes Information not available 02/20/2020 What Was The Date Of Your Most Recent Tobacco Screening? 02/20/2020 Information not available 02/20/2020 Do You Or Have You Ever Used Smokeless Tobacco? Never Used Smokeless Tobacco Information not available 02/20/2020 On What Date Was Tobacco Cessation Counseling Provided? 02/20/2020 Information not available 02/20/2020 Sex: Unknown Functional Status None recorded. Mental Status None recorded. Family History Relationship Description Onset Age of this Age Resolved Age Notes LastModified by Organization Details LastModified Time Mother Hypertensive disorder bbertoglioma Not available 04/2020 11:59:50 Mother Chronic obstructive pulmonary disease bbertoglioma Not available 04/2020 11:59:59 Mother Heart failure bbertoglioma Not available 04/2020 12:00:37 Father Malignant tumor of lung bbertoglioma Not available 04/2020 12:00:52 Medical History Condition Response Coronary Artery Disease N Other N High Blood Pressure Y Atrial Fibrillation Y Thyroid Problems Y Kidney or Bladder Problems N GI Problems Y Depression Y COPD N Blood Clots N Skin Problems Y Eating Disorder N Anemia N Heart Attack ([place]) N Anxiety Disorder Y Diabetes N Muscle, Joint, or Bone Problems Y Seizures/Epilepsy N Acid Reflux (GERD) Y Cancer N Stroke Y Asthma N Allergies Y ADHD N Substance Abuse N High Cholesterol Y Hepatitis N Liver Disease N Schizophrenia N Headaches N Heart Failure N Osteoporosis Y Gynecological HistoryNo gynecological history recorded. Obstetrics History GPAL:G 0 P 0 0 0 0 Past Encounters Encounter ID Performer Location Encounter Start Date Encounter Closed Date Diagnosis/Indication Diagnosis SNOMED-CT Code Diagnosis ICD10 Code Diagnosis Note [id number] Anabela Blanc MA [facility] [address] [place] [address] 09/06/2019 11:41:44 09/07/2019 16:55:26 Chronic depression 964022850 F34.1 Long-term drug therapy 486904849 Z79.899 Essential hypertension 72356650 I10 [id number] Jam Ledezma PA-C [facility] [address] [place] [address] 09/13/2019 11:39:42 09/13/2019 12:10:30 Essential hypertension 22270003 I10 [id number] Jam Ledezma PA-C [facility] [address] [place] [address] 11/26/2019 10:49:30 11/26/2019 12:28:39 Essential hypertension 22650767 I10 Mitral valve prolapse 40 0992755 I34.1 History of transient ischemic attack 772875240 Z86.73 Seasonal a llergic rhinitis 803637335 J30.2 [id number] Jam Ledezma PA-C [facility] [address] [place] [address] 12/10/2019 10:48:06 12/12/2019 11:23:50 Essential hypertension 40997942 I10 Chronic depression 42520 0009 F34.1 Nausea and vomiting 1692 1999 R11.2 [id number] Jam Ledezma PA-C [facility] [address] [place] [address] 12/11/2019 13:09:52 12/12/2019 11:45:12 Mixed hyperlipidemia 256331986 E78.2 [id number] Jam Ledezma PA-C [facility] [address] [place] [address] 12/27/2019 11:02:54 12/28/2019 08:34:57 Idiopathic hypercalcemia 409592582 E83.52 Seasonal a llergic rhinitis 789245839 J30.2 [id number] Jam Ledezma PA-C [facility] [address] [place] [address] 01/25/2020 10:10:00 01/28/2020 08:04:28 Lumbar radiculopathy 668378668 M54.16 [id number] KELLEN [facility] [address] [place] [address] 01/30/2020 11:07:31 01/31/2020 07:58:24 Idiopathic hypercalcemia 665676129 E83.52 Stress fra cture of tibia 365827794 M84.361A Osteoporosis 46075991 M8 1.0 [id number] Anabela Blanc MA [facility] [address] [place] [address] 02/11/2020 10:34:29 02/11/2020 15:10:24 Pain in right lower limb 403232526 M79.604 Long-term drug therapy 606155576 Z79.845 [id number] Jam Ledezma PA-C [facility] [address] [place] [address] 02/20/2020 14:44:57 02/20/2020 15:38:07 Pathological fracture of right tibia 1956806709 6966799 M84.461G Complaining of a rash 16 8069586 R21 [id number] Jam Ledemza PA-C [facility] [address] [place] [address] 04/22/2020 09:33:20 04/23/2020 12:40:11 Osteopenia 763226730 M85.88 Pathologic al fracture of right tibia 4924174355 4084326 M84.461G Health Concerns Section Related Observation LastModified by Organization Detai ls LastModified Time None Recorded Concern Status LastModified by Organization Details LastModified Time None Recorded Advance Directives Directive None Recorded Payers Encounter Date Sequence Insurance Name Policy Number Policy Bright Covered Member ID Bright Member ID Guarantor Name 01/25/2020 1 [facility] PRIOR TO 02/26/2021 (MEDICAID REPLACEMENT - HMO) Antoinette Da Silva [id number] Antoinette Da Silva 01/30/2020 1 [facility] PRIOR TO 02/26/2021 (MEDICAID REPLACEMENT - HMO) Antoinette Da Silva [id number] Antoinette Da Silva 02/11/2020 1 [facility] PRIOR TO 02/26/2021 (MEDICAID REPLACEMENT - HMO) Antoinette Da Silva [id number] Antoinette Da Silva 02/20/2020 1 [facility] PRIOR TO 02/26/2021 (MEDICAID REPLACEMENT - HMO) Antoinette Da Silva [id number] Antoinette Da Silva 04/22/2020 1 [facility] PRIOR TO 02/26/2021 (MEDICAID REPLACEMENT - HMO) Antoinette Da Silva [id number] Antoinette Da Silva Notes Date Note Type Note Provider Name and Address Organization Details Recorded Time 01/25/2020 text/html leg started hurt ing 1 week ago. no known injury.. has a hx of leg swelling went to ER and had ruled out blood clot..hurts alot..no color change.. only slightly swollen..burning pain and tingling toes...leg xray was negative...hx of osteoporosis Jam Ledezma PA-C Attn: [address] [place], [address], [facility] 01/25/2020 12:05:40 01/30/2020 text/html questions re bpressure...162/106 ..pulse 107...this afternoon 140/87 pulse 90..sees cardiology in february...was taken off of nifedipine and put on amlodipine..also has been to er vs back and leg pain...denies any injury to right. ...began hurting january 17 began at mid miles and medially...now has drifted into ankle...describes as kicked type of pain ..no prob sitting but bearing weight and feels unsteady..feels like left leg did when it broke due to osteoporosis... Jam Ledezma PA-C Attn: [address] [place], [address], [facility] 01/30/2020 15:08:21 02/11/2020 text/html started january 17..pain in medial lower rt leg..no known injury. went to ER xrays were done. findings of an old healed fracture that the patient denies ever having broken. pain has not improved may have worsened. Anabela Blanc MA [facility], [facility] 02/11/2020 11:25:00 02/20/2020 text/html bone scan reviewed..rib with uptake and rt tib fib with intense uptake they say likely posttraumatic but she denies injury. now skin on forearms are red and that is pruritic not painful Jam Ledezma PA-C Attn: [address] [place], [address], [facility] 02/20/2020 15:32:42 04/22/2020 text/html follow up on leg fractures that dont belong... Jam Ledezma PA-C Attn: [address] [facility], [place], [address], [facility] 04/22/2020 17:56:09 OBGyn Episode No OBEpisode recorded.
--- OUTSIDE RECORDS SUMMARY | 2024-10-04 13:32 | XMS_ITS | Clinical Summary ---
Author Organization [facility] Address [address] [place] [address] Phone Care Team Providers Care Twisting Operator Name Role Phone JAM MCDONNELL PA-C Primary Care Provider [phone] Reason for Visit and Chief Complaint ECHOCARDIOGRAM Plan of Treatment No Plan of Treatment [...] Location Date Check-In Time Check-Out Time Diagnosis ECHOCARDIOGRAM ELTON GROVER MD [facility] 08/02/20 23 8:35AM 9:29AM Insurance Includes: Active Insurance Policies Plan Name Member ID Group # Subscriber Relationship Effect cyn Dates 1 - [place] [place] [employer] [id number] NIGHAT DELANEY Self Clinical Notes Includes: Clinical Notes from this encounter No Clinical Notes Recorded
--- OUTSIDE RECORDS SUMMARY | 2024-10-04 13:35 | XMS_ITS | Clinical Summary ---
Author Organization [facility] Address [address] [place] [address] Phone Care Team Providers Care Developer Trading Systems Name Role Phone JAM MCDONNELL PA-C Primary Care Provider [phone] Reason for Visit and Chief Complaint HEART [...] apnea, unspecified, Supraventricular tachycardia, unspecified [facility] HOW[facility] 11/14/2023 Last Documented On 4 12:05PM ; [facility] Medical History Includes: Medical History addressed during [...] Diagnosis HEART CENTER CHECK UP TIFFANY HOWARD [facility] 4 10:58AM 11:28AM Insurance Includes: Active Insurance Policies Plan Name Member ID Group # Subscriber Relationship Effect cyn Dates 1 - [employer] [id number] NIGHAT DELANEY Self Clinical Notes Includes: Clinical Notes from this encounter No Clinical Notes Recorded
--- OUTSIDE RECORDS SUMMARY | 2024-10-04 13:35 | XMS_ITS | Clinical Summary ---
Author Organization [facility] Address [address] [place] [address] Phone Care Team Providers Care Derrick Boat Runner Name Role Phone JAM MCDONNELL PA-C Primary Care Provider [phone] Reason for Visit and Chief Complaint HEART [...] Diagnosis HEART CENTER FOLLOW UP TIFFANY HOWARD [facility]- 3 1:47PM 2:40PM Insurance Includes: Active Insurance Policies Plan Name Member ID Group # Subscriber Relationship Effect cyn Dates 1 - [employer] [id number] NIGHAT DELANEY Self Clinical Notes Includes: Clinical Notes from this encounter No Clinical Notes Recorded
--- OUTSIDE RECORDS SUMMARY | 2024-10-04 13:35 | XMS_ITS ---
Author Organization [facility] Address [address] [place] [address] Phone Care Team Providers Care Advertising Executive Name Role Phone JAM MCDONNELL PA-C Primary Care Provider [phone] Plan of Treatment No Plan of Treatment [...] On 07/08/2010 5:57PM By ALVIN BASS ; [facility] Premarin 1.25 MG OR TABS 09/02/2009 - 08/28/2010 Provi anastasia: Diagnosis: Last Documented On 11/11/2009 9:36AM By BONNIE MORALES ; [facility] Premarin 1.25 MG OR TABS 07/23/2008 - 07/18/2009 Provi anastasia: Diagnosis: Last Documented On 11/11/2009 9:37AM By BONNIE MORALES ; [facility] Amoxicillin 500 MG OR TABS 07/03/2007 - 07/13/2007 Pro vider: Diagnosis: Last Documented On 11/11/2009 9:38AM By BONNIE MORALES ; [facility] Premarin 1.25 MG OR TABS 07/05/2006 - 06/30/2007 Provi anastasia: Diagnosis: Last Documented On 11/11/2009 9:39AM By BONNIE MORALES ; [facility] Premarin 1.25 MG OR TABS 08/27/2005 - 07/23/2006 Provi anastasia: Diagnosis: Last Documented On 11/11/2009 9:40AM By BONNIE MORALES ; [facility] Medications Administered Includes: Administered Medications in patient's chart No Administered Medications Recorded Results Includes: Results from 10/04/2023 through 10/04/2024 No Results Recorded For Specified Dates History of Present Illness History of Present Illness not supported for this document type No History of Present Illness Recorded Social History Description Last Updated 11/11/2009 Last Documented On 0 9:43AM ; [facility] Exercise frequency was three times/week 11/11/2009 Last Documented On 0 9:43AM ; [facility] Exercising regularly 11/11/2009 Last Documented On 0 9:43AM ; [facility] Sexually active 11/11/2009 Last Documented On 0 9:43AM ; [facility] Sexually active with 1 partners in the l ast year 11/11/2009 Last Documented On 0 9:43AM ; [facility] Smoking Status Unknown Procedures and Surgical History Includes: Procedures from 10/04/2023 through 10/04/2024 Procedures Code Diagnosis Performing Provider Service Location Service Date CLINIC FACILITY FEE (Signi/Sep Eval & Man) G0463 Nonrheumatic mitral (valve) insufficiency, Paroxysmal atrial fibrillation, Obstructive sleep apnea (adult) (pediatric), Essential (primary) hypertension [facility]- HRT 12/13/2023 Last Documented On 4 2:24PM ; [facility] CLIN[facility] FACILITY FEE (Signi/Sep Eval & Man) 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, Sleep apnea, unspecified, Supraventricular tachycardia, unspecified [facility]- HRT 11/14/2023 Last Documented On 4 12:05PM ; [facility] Medical History Includes: Medical History in patient's chart Description Last Updated HYSTERECTOMY ~BTL 11/11/2009 Last Documented On 0 9:43AM ; [facility] 2 living children 11/11/2009 Last Documented On 0 9:43AM ; [facility] A mammogram was performed 11/11/2009 Last Documented On 0 9:43AM ; [facility] A Pap smear was performed 11/11/2009 Last Documented On 0 9:43AM ; [facility] weight: was 7.4 lbs 11/11/2009 Last Documented On 0 9:43AM ; [facility] Breast problems 11/11/2009 Last Documented On 0 9:43AM ; [facility] Delivery date 1983 11/11/2009 Last Documented On 0 9:43AM ; [facility] Duration of labor: was six hr 11/11/2009 Last Documented On 0 9:43AM ; [facility] Gestational age: was 40 weeks 11/11/2009 Last Documented On 0 9:43AM ; [facility] 2 11/11/2009 Last Documented On 0 9:43AM ; [facility] History of the 2nd : 11/11/2009 Last Documented On 0 9:43AM ; [facility] Last mammogram date: 07/19/08 11/11/2009 Last Documented On 0 9:43AM ; [facility] Last pap smear date 200711/11/2009 Last Documented On 0 9:43AM ; [facility] Oral contraceptives 11/11/2009 Last Documented On 0 9:43AM ; [facility] Status post tubal ligation 11/11/2009 Last Documented On 0 9:43AM ; [facility] Family History Includes: Family History in patient's chart Description Last Updated Family history of Cancer 11/11/2009 Last Documented On 0 9:43AM ; [facility] Family history of thyroid disease 2009 Last Documented On 0 9:43AM ; [facility] Family medical history of high blood pre ssure 11/11/2009 Last Documented On 0 9:43AM ; [facility] Review of Systems Review of Systems not [...] HOSPITAL FOLLOW UP EXAM TIFFANY SAUCEDO ANP [facility]- 4 12:43PM 1:47PM [facility] CHECK UP TIFFANY HOWARD [facility]- 4 10:58AM 11:28AM Insurance Includes: Active Insurance Policies Plan Name Member ID Group # Subscriber Relationship Effect cyn Dates 1 - [employer] [id number] NIGHAT Guevara Clinical Notes Includes: Signed Clinical Notes starting from 09/17/2022 No Clinical Notes Recorded
--- OUTSIDE RECORDS SUMMARY | 2024-10-04 13:35 | XMS_ITS ---
Care Plan - [facility] Created on: October 04, 2024 NIGHAT DELANEY : 1960 Sex: Female Author Organization [facility] Address [address] [place] [address] Phone Care Team Providers Care President Educational Institution Name Role Phone JAM MCDONNELL PA-C Primary Care Provider [phone]
--- OUTSIDE RECORDS SUMMARY | 2024-10-04 13:35 | XMS_ITS | Clinical Summary ---
Author Organization [facility] Address [address] [place] [address] Care Team Providers Care Marketing Co Op Name Role Phone Yg Lee MD Primary Care Provider [phone] Allergies Active Allergy Reactions Criticality Noted Date Comments Ciprofloxacin Muscle Pain,Other (See Comments) High 09/02/2017 Other reaction(s): Other (See comments) Tendon and muscle pain BLE. Other reaction(s): Myalgias Tendon and muscle pain BLE. Other reaction(s): Other (See comments) Tendon and muscle pain BLE. Tendon and muscle pain BLE. Fluocinolone Other (See Comments),Unknown Low 02/14/2019 Other reaction(s): Other (See comments), Unknown Other reaction(s): Other Other reaction(s): Other (See comments), Unknown Sulfa (Sulfonamide Antibiotics) Hives,Rash High 04/22/2016 Other reaction(s): Urticaria Sulfur Dioxide Hives High 02/14/2019 Other reaction(s): Urticaria Other reaction(s): Urticaria Watermelon Other (See Comments) 08/14/2021 Itch and blotchy on chest and face Medications CALCIUM CARBONATE (CALCIUM 600 ORAL) Take by mouth 3 times daily. 600mg x 3 daily =1800mg daily Active cholecalciferol, Vitamin D3, (VITAMIN D3) 25 mcg (1,000 unit) Capsule Take 1 Cap by mouth daily. Active cyclobenzaprine (FLEXERIL) 10 mg tablet 1 time daily as needed. 018 Active omega-3 acid ethyl esters (Lovaza) 1 gram Capsule Take 2 Capsules (2 Grams) by mouth 2 times daily with meals. 360 Capsule 3 Active Additional Information Patient not taking.Reported on 10/26/2022 omeprazole (PriLOSEC) 20 mg Capsule, Delayed Release(E.C.) TAKE 1 CAPSULE BY MOUTH EVERY DAY 90 Capsule 3 Active hydrOXYchloroQUIN E (PLAQUENIL) 200 mg tablet TAKE 1 TABLET BY MOUTH TWICE DAILY Active nitroglycerin (NITROSTAT) 0.4 mg Tablet, Sublingual Active dexlansoprazole (Dexilant) 60 mg Delayed Release capsule Lot: [id number] Ex: 10/21 Qty: 8 5 Capsule Active Additional Information Patient not taking.Reported on 12/01/2023 amLODIPine (NORVASC) 10 mg tablet Take 10 mg by mouth. Active carvediloL (COREG) 25 mg tablet Take 25 mg by mouth. Active fluticasone propionate (Flovent HFA) 220 mcg/actuation HFA Aerosol Inhaler USE 2 PUFFS BY MOUTH TWICE A DAY 36 Gram 3 Active Additional Information Patient not taking.Reported on 12/01/2023 ondansetron (ZOFRAN ODT) 4 mg Tablet, Rapid Dissolve DISSOLVE ONE TABLET UNDER THE TONGUE EVERY 8 HOURS NEEDED FOR NAUSEA 45 Tablet Active Additional Information Patient not taking.Reported on 04/05/2024 fluticasone propionate (FLONASE) 50 mcg/spray [place], Suspension nasal inhaler USE 1 OR 2 SPRAYS IN EACH NOSTRIL DAILY 48 mL 1 Active alendronate (FOSAMAX) 70 mg tablet TAKE 1 TABLET (70 MG) BY MOUTH EVERY 7 DAYS. EMPTY STOMACH BEFORE OTHER MEDS,WITH 8OZ OF WATER, STAY UPRIGHT 30 MIN 12 Tablet 2 Active lisinopril-hydroC HLOROthiazide (ZESTORETIC) 20-12.5 mg tablet Take 1 Tablet by mouth 2 times daily. 180 Tablet 3 Active Additional Information Patient not taking.Reported on 12/01/2023 tiotropium-olodat Jose Eduardo (STIOLTO RESPIMAT) 2.5-2.5 mcg/actuation metered inhaler Take 2 Puffs by inhalation daily. 4 Gram 2 Active Additional Information Patient not taking.Reported on 10/26/2022 oxyCODONE-acetami nophen (PERCOCET) 10-325 mg Tablet Take 1 Tablet by mouth every 4 hours as needed. Active famotidine (PEPCID) 20 mg tablet TAKE 1 TABLET(20 MG) BY MOUTH TWICE DAILY 180 Tablet 1 Active Additional Information Patient not taking.Reported on 12/01/2023 ibandronate (BONIVA) 150 mg tabletIndications :Other osteoporosis without current pathological fracture TAKE 1 TABLET(150 MG) BY MOUTH EVERY 30 DAYS 3 Tablet 1 Active Additional Information Patient not taking.Reported on 10/26/2022 lidocaine (LIDODERM) 5 % Adhesive Patch, Medicated Apply 1 Patch to affected area every 24 hours. 30 Patch 3 Active oxyCODONE (ROXICODONE) 5 mg tabletIndications :Psoriatic arthritis (CMS/HCC) Take 1 Tablet (5 mg) by mouth every 4 hours as needed for Pain. Max Daily Amount: 30 mg 60 Tablet Active Additional Information Patient not taking.Reported on 10/26/2022 amLODIPine (NORVASC) 5 mg tablet Take 5 mg by mouth daily. Active sennosides 8.6 mg-docusate sodium 50 mg tablet Take 1 Tablet by mouth. Active naloxone 4 mg/actuation nasal spray Active ascorbic acid (vitamin C) 500 mg chewable tablet Take 500 mg by mouth 2 times daily. Active isosorbide mononitrate (IMDUR) 30 mg Extended Release 24 hour tablet Take 1 Tablet by mouth daily. Active icosapent ethyL (VASCEPA) 1 gram Capsule Take 2 Capsules (2 Grams) by mouth 2 times daily with meals. 360 Capsule 3 Active Additional Information Patient not taking.Reported on 12/01/2023 evolocumab (Repatha SureClick) 140 mg/mL Pen Injector Inject contents of one pen (140 mg) under the skin every 2 weeks. 6 mL 3 023 Active Additional Information Patient not taking.Reported on 12/01/2023 aspirin (ECOTRIN EC) 81 mg Tablet, Delayed Release (E.C.)Indications :Frequent PVCs,Essential hypertension, benign,Other hyperlipidemia,Co nnective tissue disease overlap syndrome take 2 tablets by mouth daily 180 Tablet 3 024 Active omeprazole (PriLOSEC) 40 mg Capsule, Delayed Release(E.C.)Adore cations:Gastroeso phageal reflux disease without esophagitis TAKE 1 CAPSULE(40 MG) BY MOUTH DAILY 90 Capsule 3 024 Active Additional Information Patient not taking.Reported on 12/01/2023 apixaban (ELIQUIS) 5 mg tablet Take 5 mg by mouth 2 times daily. Active diltiaZEM (CARDIZEM CD) 240 mg Controlled Delivery 24 hour capsule Active methocarbamoL (ROBAXIN) 500 mg tablet Active metoprolol succinate (TOPROL XL) 50 mg Extended Release 24 hour tablet Take 50 mg by mouth daily. Active celecoxib (CeleBREX) 200 mg capsule TAKE 1 CAPSULE(200 MG) BY MOUTH TWICE DAILY 180 Capsule 3 Active metoclopramide HCl (REGLAN) 10 mg tablet TAKE 1 TABLET(10 MG) BY MOUTH TWICE DAILY 180 Tablet 3 Active Additional Information Patient not taking.Reported on 04/05/2024 rosuvastatin (CRESTOR) 5 mg tablet take 1 tablet by mouth every day 90 Tablet 3 Active diltiaZEM (DILACOR XR) 240 mg Extended Release capsule Take 1 Capsule (240 mg) by mouth daily. 90 Capsule 3 Active amoxicillin-clavu lanate (AUGMENTIN) 875-125 mg tablet Take 1 Tablet by mouth every 12 hours. 20 Tablet Active apixaban (ELIQUIS) 5 mg tablet Lot: [id number] ex: 05/2025 qty: 8 14 Tablet Active levothyroxine 100 mcg tabletIndications :Other specified hypothyroidism TAKE 1 TABLET(100 MCG) BY MOUTH DAILY IN THE MORNING 90 Tablet 3 024 Active ALPRAZolam (XANAX) 0.25 mg tabletIndications :Other specified anxiety disorders TAKE 1 TABLET(0.25 MG) BY MOUTH TWICE DAILY 40 Tablet 3 024 Active digoxin (LANOXIN) 125 mcg (0.125 mg) tablet Take 1 Tablet (125 mcg) by mouth daily. 90 Tablet 3 024 Active ezetimibe (ZETIA) 10 mg tablet TAKE 1 TABLET(10 MG) BY MOUTH DAILY 90 Tablet 3 024 Active DULoxetine (CYMBALTA) 60 mg Capsule, Delayed Release(E.C.)Adore cations:Other specified anxiety disorders TAKE 1 CAPSULE BY MOUTH DAILY 90 Capsule 3 024 Active apixaban (ELIQUIS) 5 mg tablet Take 1 Tablet (5 mg) by mouth 2 times daily. 180 Tablet 3 024 Active losartan-hydroCHL OROthiazide (HYZAAR) 100-25 mg tabletIndications :Essential hypertension, benign TAKE 1 TABLET BY MOUTH DAILY 90 Tablet 3 025 Active losartan-hydroCHL OROthiazide (HYZAAR) 100-25 mg tabletIndications :Essential hypertension, benign take 1 tablet by mouth daily 90 Tablet 3 024 2024 Discontinued Active Problems Patient Care Coordination No te Formatting of this note migh t be different from the original. GI-Christopher [id number] 09/01/22 Problem Noted Date Diagnosed Date Pulmonary hypertension 08/26/2023 ETOH abuse 09/01/2022 Hx-TIA (transient ischemic attack) 03/20/2019 Hypertensive encephalopathy 09/16/2018 Psoriatic arthritis 03/28/2018 Subacute liver failure without hepatic coma 02/28 Memory loss 08/12/2017 Osteoporosis 02/12/2016 Frequent PVCs 10/30/2015 Hypothyroidism 01/14/2015 HLD (hyperlipidemia) 05/17/2014 Personal history of colonic polyps 12/06/2011 Overview (12/06/2011): Colonoscopy 11/01/2011 - adenoma - repeat in 5 years Connective tissue disease overlap syndrome 06/15 Essential hypertension, benign 06/15/2011 GERD (gastroesophageal reflux disease) 1 Immunocompromised 06/15/2011 Prolapse of female bladder, acquired 06/15/2011 Resolved Problems Problem Noted Date Diagnosed Date Resolved Date Moderate episode of recurren t major depressive disorder 11/06/2018 10/20/2020 Oral ulcer 03/25/2017 10/20/2020 Precordial pain 10/30/2015 02/23/2017 Depression, major, recurrent, mild 04/25/2015 10/20/2020 Diarrhea 12/28/2011 03/29/2012 Hormone replacement therapy (postmenopausal) 1 12/13/2012 Heart murmur 06/15/2011 10/29/2011 Osteopenia 06/15/2011 02/23/2017 Encounters Date Type Department Care Team Description 09/20/2024 External Device Data [facility] ABSTRACTION Provider, Abstract 09/19/[address] [place] [address] Yg Lee MD Essential hypertension, benign 09/11/2024 External Device Data [facility]STRACTION Provider, Abstract 08/21/[address] [place] [address] Provider, Abstract 08/16/2024 Refill [place] [address] [place] [address] Yg Lee MD Other specified anxiety disorders 08/15/2024 [place] [address] [place] [address] Yg Lee MD Provider Call 08/01/2024 Telephone [place] [address] [place] [address] Yg Lee MD Referral 07/31/2024 Telephone [place] [address] [place] [address] Yg Lee MD Results 07/31/2024 Orders Only [place] [address] [place] [address] Gisselle Bell Hepatomegaly 07/24/2024 [facility] [address] [place] [address] Yg Lee MD Provider Call 07/19/2024 Telephone [place] [address] [place] [address] Yg Lee MD Provider Call; Provider Call; Provider Call; Provider Call 07/14/2024 Refill [facility] [address] [place] [address] Yg Lee MD from Last 3 Months Immunizations Immunization Administration Dates Next Due (ADACEL/BOOSTRIX)(10 YR UP) TDAP VACCINE, 0.5ML, IM 06/15/2011 (PFIZER)(12 YR UP) COVID-19 VACCINE - EMERGENCY USE AUTHORIZATION, MRNA, [id number](PF) 30 MCG/0.3 ML IM SUSP 04/22/2021,04/01/2021 (PNEUMOVAX 23)(50 YRS UP) PN EUMOCOCCAL POLYSACCHARIDE (PPV23) 0.5 ML, IM 07/18/2017,06/15/2011 (PREVNAR 13)(6 WKS UP) PNEUM OCOCCAL CONJUGATE (PCV13) 0.5 ML, IM 10/20/2020 (PREVNAR 20)(6 WKS UP) PNEUM OCOCCAL CONJUGATE VACCINE 20-VALENT (PCV20), POLYSACCHARIDE [id number] CONJUGATE, ADJUVANT 0.5 ML (PF) IM 02/23/2023 INFLUENZA VACCINE QUADRIVALE NT 6 MOS UP PF IM 09/01/2022,08/14/2021,07/17/2020,06/21,06/09/2018,07/05/2017 Influenza Seasonal Unspecifi ed Formulation IM 06/16/2016,06/11/2015,06/01/2014,07/28,06/14/2012,06/01/2011 Influenza, Unspecified Formulation 05/29/2022 Family History Medical History Relation Name Comments Arthritis-osteo Brother 2 Cancer Father arthritis Hypertension Mother emphysema High Cholesterol Sister 2 Breast Cancer Neg Hx Celiac Disease Neg Hx Colon Cancer Neg Hx Colon Polyps Neg Hx Crohn's Disease Neg Hx Liver Disease Neg Hx Pancreatic Cancer Neg Hx Relation Name Status Comments Brother 1 Alive Brother 2 Father Mother Alive Sister 1 Alive Sister 2 Social History Tobacco Use Types Packs/Day Years Used Date Smoking Tobacco: Former Cigarettes 1 10 0 12/26/2002 - 12/26/2012 Smokeless Tobacco: Former Quit: 04/22/2013 Tobacco Cessation:Counseling Given: No Alcohol Use Standard Drinks/Week Comments Yes 0 (1 standard drink = 0.6 oz pur e alcohol) occasional Financial Resource Strain Answer Date R ecorded How hard is it for you to pa y for the very basics like food, housing, medical care, and heating? Not hard at all 01/27/2022 Food Insecurity Answer Date Recorded In the past 12 months, have you worried that your food would run out before you had money to buy more? Never true 01/27/2022 In the past 12 months, did y ou run out of food and didn't have money to buy more? Never true 01/27/2022 Transportation Needs Answer Date Record ed In the past 12 months, has l ack of transportation kept you from medical appointments or from getting medications? No 01/27/2022 Lack of Transportation (Non-Medical) Not on file 01/27/2022 Comments No Sex and Gender Information Value Date Recorded Sex Assigned at Not on file Legal Sex Female 6:04 AM CERTIFICATION OFFICER Gender Identity Not on file Sexual Orientation Not on file Occupation Industry Job Start Date Job End Date Not on file Not on file Not on file Not on file Last Filed Vital Signs Vital Sign Reading Time Taken Comments Blood Pressure 112/68 04/05/2024 10:25 AM CDT Pulse 87 04/05/2024 10:25 AM CDT Temperature 36.4 C (97.5 F) 02/23/2023 1:39 PM CDT Respiratory Rate 15 02/23/2023 1:39 PM CDT Oxygen Saturation 97% 04/05/2024 10:25 AM CDT Inhaled Oxygen Concentration - - Weight 69.4 kg (153 lb) 04/05/2024 10:25 AM CDT Height 152.4 cm (5') 04/05/2024 10:25 AM CDT Body Mass Index 29.88 04/05/2024 10:25 AM CDT Plan of Treatment Upcoming Encounters Date Type Department Care Team (Late st Contact Info) Description 10/10/2024 10:40 AM CERTIFICATION OFFICER Office Visit [facility] [address] [place] [address] Yg Lee MD [address] [facility] [address] [place] [address] Health Maintenance Due Date Last Done Comments ZOSTER VACCINE (1 of 2) 1981 FIT-DNA Q 3 years 2007 FIT/ DNA Q 3 YEARS (AUTO ORDER) 2007 FIT/FOBT Q 1 YEAR (AUTO ORDER) 2007 FIT/FOBT Q 1 year 2007 FLEX SIG/CT COLONOGRAPHY Q 5 YEARS (AUTO ORDER) 2007 Flex Sig/CT Colonography Q 5 years 2007 CERVICAL CANCER SCREENING 09/29/2014 09/29/2011 COVID-19 Vaccine (3 - Pfizer risk series) 05/20/2021 04/22/2021, 04/01/2021 DTAP/TDAP/TD VACCINES (2 - T d or Tdap) 06/15/2021 06/15/2011 RSV VACCINE (60+ or ) (1 - Risk 60-74 years 1-dose series) 2022 INFLUENZA VACCINE (#1) 2024 , 08/14/2021, 07/17/2020, Additional history exists Preventative Visit- Commercial 08/29/2024 0 09/01/2022, 10/21/2017, 09/09/2016, Additional history exists BREAST CANCER SCREENING 05/16/2025 05/16/20 24, 10/08/2022, 10/08/2021, Additional history exists COLORECTAL CANCER SCREENING (AUTO ORDER) 04/22/2026 04/22/2016, 11/01/2011 COLORECTAL SCREENING 04/22/2026 04/22/2016, 11/01/2011, 11/01/2011 Colorectal Cancer Screening (AUTO ORDER) 04/22/2026 Colorectal Cancer Screening 04/22/2026 Pre-Diabetes and Diabetes Screening 06/15/2027 06/15/2024, 08/24/2023, 08/11/2021, Additional history exists PNEUMOCOCCAL VACCINE 0-64 YEARS Completed 02/23/2023, 10/20/2020, 07/18/2017, Additional history exists Medical Devices Implanted Type Area Tosser Device Identifier Shelf Expiration Date Model / Serial / Lot Stent Pncrtc Frmn Flx 5fr 5cm 6552 - [id number] Implanted:Qty: 1 on 02/24/2018 by John White MD at [facility] Stent N/A: Pancreas [facility] [id number] 09/29/2022 [id number] / / [id number] Procedures Procedure Name Priority Date/Time Associated Diagnosis Comments US ABDOMEN COMPLETE Routine 07/24/2024 Hepatomegaly HEMOGLOBIN A1C Routine 06/15/2024 9:16 AM CDT Abnormal glucose MAMMO 3D KIRILL SCREEN BILAT W OR WO CAD Routine 05/16/2024 1:15 PM CDT Screening mammogram, encounter for from Last 3 Months or Most Recently Relevant to Health Maintenance Results * (ABNORMAL) US ABDOMEN COMPLETE (07/24/2024) Anatomical Region Laterality Modality Abdomen Other us Yg Lee MD US ORDERABLES Final Result * HEMOGLOBIN A1C (06/15/2024 9:16 AM CDT) HEMOGLOBIN A1C 5.2 <5.7 % of total Hgb [employer] Comment: For the purpose of screening for the presence of diabetes: <5.7% Consistent with the absence of diabetes 5.7-6.4% Consistent with increased risk for diabetes (prediabetes) > or =6.5% Consistent with diabetes This assay result is consistent with a decreased risk of diabetes. Currently, no consensus exists regarding use of hemoglobin A1c for diagnosis of diabetes in children. According to [place] Diabetes Association (ADA) guidelines, hemoglobin A1c <7.0% represents optimal control in non- diabetic patients. Different metrics may apply to specific patient populations. Standards of Medical Care in Diabetes(ADA). ESTIMATED AVERAGE GLUCOSE (MG/DL) 103 mg/dL Maddi Santana ESTIMATED AVERAGE GLUCOSE (MMOL/L) 5.7 mmol/L [employer] Comment: FASTING:YES FASTING: YES Test Performed at: [facility] [address] [place] [address] Ceferino Eugene Blood 06/15/2024 9:16 AM CDT 06/15/2024 9:17 AM CDT us Yg Lee MD CHEMISTRY ORDERABLES Final Re sult [facility] [phone] [facility] [address] [place] [address] * MAMMO 3D KIRILL SCREEN BILAT W OR WO CAD (05/16/2024 1:15 PM CDT) Anatomical Region Laterality Modality Breast Bilateral Mammography 05/16/2024 1:15 PM CDT Impressions 05/16/2024 2:36 PM CDT IMPRESSION: No mammographic evidence of malignancy in the bilateral breasts. Routine screening mammography is recommended in one year. OVERALL FINAL ASSESSMENT: BI-RADS CATEGORY 1 - Negative. DICTATION LOCATION: [facility] 05/16/2024 2:36 PM CDT EXAMINATION: BILATERAL SCREENING DIGITAL MAMMOGRAPHY WITH TOMOSYNTHESIS AND CAD DATE: 05/16/2024 1:15 PM HISTORY: Routine screening mammography. COMPARISON: Mammography with dates ranging from 10/08/2022 to 09/21/2016. TECHNIQUE: A bilateral screening mammogram was performed. Low-dose full-field digital breast tomosynthesis examination was performed with 2D and 3D acquisitions. Examination is read in conjunction with computer aided detection. BREAST COMPOSITION: There are scattered areas of fibroglandular density. FINDINGS: There are no suspicious masses, suspicious calcifications, or other suspicious findings in either breast. There has been no suspicious interval change. Computer aided detection was used in the interpretation of this examination. Procedure Note Yg Crow MD - 05/16/2024 EXAMINATION: BILATERAL SCREENING DIGITAL MAMMOGRAPHY WITH TOMOSYNTHESIS AND CAD DATE: 05/16/2024 1:15 PM HISTORY: Routine screening mammography. COMPARISON: Mammography with dates ranging from 10/08/2022 to 09/21/2016. TECHNIQUE: A bilateral screening mammogram was performed. Low-dose full-field digital breast tomosynthesis examination was performed with 2D and 3D acquisitions. Examination is read in conjunction with computer aided detection. BREAST COMPOSITION: There are scattered areas of fibroglandular density. FINDINGS: There are no suspicious masses, suspicious calcifications, or other suspicious findings in either breast. There has been no suspicious interval change. Computer aided detection was used in the interpretation of this examination. IMPRESSION: No mammographic evidence of malignancy in the bilateral breasts. Routine screening mammography is recommended in one year. OVERALL FINAL ASSESSMENT: BI-RADS CATEGORY 1 - Negative. DICTATION LOCATION: [facility] Yg Lee MD MAMMO ORDERABLES Final Result from Last 3 Months or Most Recently Relevant to Health Maintenance Insurance RX [employer] RX Member Subscriber Plan / Payer (Ef fective 2020-Present) Name:Antoinette Da Silva Relation to Subscriber:Self Name:Antoinette Da Silva Payer ID:Not on file Type:RX Commercial Address: [address] [place] [place] MEDICARE Advance Directives For more information, please contact: [phone] Documents on File Type Date Recorded Patient Personal Companion Expl anation Advance Directive Living Will 10/20/2020 2:55 PM Advance Directive Living Will Advance Directive POA 10/20/2020 2:54 PM A dvance Directive POA * Full Code (Latest Code Status on File) Date Activated Date Inactivated Comments 09/16/2018 9:25 AM 09/17/2018 5:27 PM * Full Code Date Activated Date Inactivated Comments 02/24/2018 2:09 PM 02/24/2018 6:54 PM * Full Code Date Activated Date Inactivated Comments 04/22/2016 2:44 PM 04/22/2016 7:19 PM * Full Code Date Activated Date Inactivated Comments 04/22/2016 2:00 PM 04/22/2016 2:44 PM * Full Code Date Activated Date Inactivated Comments 10/31/2015 12:41 PM 10/31/2015 7:49 PM Care Teams Marketing Co Op Relationship Specialty Start Date End Date Yg Lee MD PCP - General Internal Medicine 12/20/18
--- OUTSIDE RECORDS SUMMARY | 2024-10-04 13:35 | XMS_ITS | Clinical Summary ---
Author Organization [facility] Address [address] [place] [address] Phone Care Team Providers Care Supervisor Plate Forming Name Role Phone JAM MCDONNELL PA-C Primary Care Provider [phone] Reason for Visit and Chief Complaint HOSPITAL [...] (adult) (pediatric), Essential (primary) hypertension TIFFANY [facility] 12/13/2023 Last Documented On 4 2:24PM ; [facility] Medical History Includes: Medical History addressed [...] Diagnosis HOSPITAL FOLLOW UP EXAM TIFFANY SAUCEDO [facility]- 4 12:43PM 1:47PM Insurance Includes: Active Insurance Policies Plan Name Member ID Group # Subscriber Relationship Effect cyn Dates 1 - [employer] ADVANTAGE [id number] NIGHAT DELANEY Self Clinical Notes Includes: Clinical Notes from this encounter No Clinical Notes Recorded
--- OUTSIDE RECORDS SUMMARY | 2024-10-04 13:36 | XMS_ITS | Clinical Summary ---
Author Organization [facility] Address [address] [place] [address] Phone Care Team Providers Care Night Stocker Name Role Phone JAM MCDONNELL PA-C Primary Care Provider [phone] Reason for Visit and Chief Complaint LEXISCAN [...] Time Diagnosis LEXISCAN CARDIOLITE ELTON GROVER MD [facility] 08/02/20 23 9:30AM 11:24AM Insurance Includes: Active Insurance Policies Plan Name Member ID Group # Subscriber Relationship Effect cyn Dates 1 - [employer] ADVANTAGE [id number] NIGHAT DELANEY Self Clinical Notes Includes: Clinical Notes from this encounter No Clinical Notes Recorded
--- OUTSIDE RECORDS SUMMARY | 2024-10-04 13:36 | XMS_ITS | Clinical Summary ---
Author Organization [facility] Address [address] [place] [address] Phone Care Team Providers Care Costume Technician Name Role Phone JAM MCDONNELL PA-C Primary Care Provider [phone] Reason for Visit and Chief Complaint ECHOCARDIOGRAM [...] Check-Out Time Diagnosis ECHOCARDIOGRAM ELTON GROVER MD [facility] 08/02/20 23 8:35AM 9:29AM Insurance Includes: Active Insurance Policies Plan Name Member ID Group # Subscriber Relationship Effect cyn Dates 1 - [place] [employer]AGE [id number] NIGHAT DELANEY Self Clinical Notes Includes: Clinical Notes from this encounter No Clinical Notes Recorded
[2024-10-04 13:37] VITALS: BP 172/100; PULSE 86; RESP 20; TEMP 36.9; O2SAT 100
--- NOTE | 2024-10-04 14:04 | ED.GENADULT ---
HPI - General Adult General Chief complaint: Extremity Injury, Upper Stated complaint: Fall Injury/Right Arm Source: patient Mode of arrival: ambulatory Limitations: no limitations History of Present Illness HPI narrative: 64 y/o female presented for c/o right forearm and wrist pain and swelling following an injury from a fall yesterday. Endorses Swelling and deformity noted on arrival. States she fell yesterday onto landscaping rocks, described as FOOSH. Not taking anything for pain, states I did not have anything. Denies numbness, tingling to the arm or hand. Reports she is able to move the fingers slowly. Rates pain 04/07. Pt is right hand dominant. Taking Eliquis for Afib. Related Data Home Medications ?Medication ?Instructions ?Recorded ?Confirmed ?Last Taken ?Type alprazolam 0.25 mg tablet mg 10/04/24 Unknown History apixaban 5 mg tablet (Eliquis) mg 10/04/24 Unknown History carvedilol 25 mg tablet mg 10/04/24 Unknown History celecoxib 200 mg capsule mg 10/04/24 Unknown History digoxin 125 mcg (0.125 mg) tablet 10/04/24 Unknown History diltiazem HCl 240 mg mg PO 10/04/24 Unknown History capsule,extended release 24 hr, controlled (DILT-XR) duloxetine 60 mg capsule,delayed mg PO 10/04/24 Unknown History release ezetimibe 10 mg tablet mg 10/04/24 Unknown History isosorbide mononitrate 60 mg mg PO 10/04/24 Unknown History tablet,extended release 24 hr levothyroxine 100 mcg tablet mcg 10/04/24 Unknown History losartan 100 tablet 10/04/24 Unknown History mg-hydrochlorothiazide 25 mg tablet metoclopramide HCl 10 mg tablet mg 10/04/24 Unknown History omeprazole 40 mg capsule,delayed mg 10/04/24 Unknown History release potassium chloride 10 mEq meq PO 10/04/24 Unknown History tablet,extended release rosuvastatin 5 mg tablet mg 10/04/24 Unknown History Allergies Allergy/AdvReac Type Severity Reaction Status Date / Time No Known Allergies Allergy Unverified 10/04/24 14:15 Review of Systems Review of Systems: CONSTITUTIONAL: Denies body aches, fever, chills CARDIOVASCULAR: Denies chest pain, palpitations, or edema. RESPIRATORY: Denies cough or dyspnea. SKIN: Denies wounds. MUSCULOSKELETAL: reports right arm pain, swelling and deformity NEUROLOGIC: Denies numbness, tingling, or weakness. All systems reviewed & are unremarkable except as noted in HPI and below PMFSH Past Medical History Medical History Rheumatoid arthritis HTN (hypertension) Surgical History Surgical History History of bladder surgery H/O: hysterectomy Social History Social History Smoking packs per day: 0.5 Smoking cigarettes per day: 10.0 Years smoked: 6 Smoking pack-years: 3.00 Smoking status: Former smoker Tobacco type: cigarettes Comments At time of signature, I have reviewed and agree with nursing past medical, surgical, social and family history unless otherwise noted. Please see nursing chart for further information. There is no relevant family history pertinent to the presenting complaint Exam Narrative: GENERAL: Well-appearing HEAD: Normocephalic, atraumatic. CHEST: Speaks in full sentences. No respiratory distress. HEART: Regular rate and rhythm. Normal and equal peripheral pulses. EXTREMITIES: Right forearm with deformity and swelling noted. Tender to distal radius and ulna with light palpation. Swelling extends to hand and digits. Slow ROM to digits, tolerates flexion and extension of all digits. Normal/slow digital cascade with flexion of fingers, median, ulnar and radial nerve intact. Normal sensation of each side of finger. Can perform 'okay' sign, 'cross over finger test of index and middle fingers' and 'thumbs up' sign. No scissoring. Normal thumb opposition. Good capillary refill and radial pulse. Distal capillary refill less than 3 seconds. No open wounds. SKIN: Warm, dry NEURO: Alert and oriented x3. PSYCH: Normal mood and affect Course Course Emergency Course: Patient is aware of diagnosis, understands and agrees to treatment plan. Anticipatory guidance given. Patient agrees to follow-up as directed and is aware of reasons to seek care at the emergency department. Portions of this record may have been created with voice recognition software Level of Care: Express Care Visit Vital Signs Vital signs: Vital Signs Temperature 98.4 F 10/04/24 13:37 Pulse Rate 86 10/04/24 13:37 Respiratory Rate 20 10/04/24 13:37 Blood Pressure 172/100 H 10/04/24 13:37 Pulse Oximetry 100 10/04/24 13:37 Oxygen Delivery Room Air 10/04/24 13:37 Temperature 98.4 F 10/04/24 13:37 Pulse Rate 86 10/04/24 13:37 Respiratory Rate 20 10/04/24 13:37 Blood Pressure 172/100 H 10/04/24 13:37 Pulse Oximetry 100 10/04/24 13:37 Oxygen Delivery Room Air 10/04/24 13:37 Reviewed Procedures Orthopedic Splinting/Casting Right forearm: Splinting/Casting Date: 10/04/24 OCL: sugar tong Pre-Procedure Neuro Vascular Exam: normal Post-Procedure Neuro Vascular Exam: normal Other Orthopedic Equipment: other ( sling) Medical Decision Making MDM Narrative Medical decision making narrative: Pt presented for c/o right forearm and wrist pain and swelling following an injury from a fall yesterday, with Swelling and deformity noted. Right 4th digit ring was removed on arrival. Results of xrays reviewed with pt. Advised ER transfer, pt requested [facility], however they recommended [facility] transfer. [facility] contacted, they are on black status. Discussed the case with Order Processing Clerk, who consulted with Ortho professional system administrator Dr Rendon. Advised Pt to have sugar tong splint and sling placed, and f/u soto. Appointment made for 10/08/24 at 1:30. Pt is notified. V/U. Pt declined any pain medication. Differential Diagnosis Differential Diagnosis: radial/ulna fracture, dislocation, sprain/strain of wrist, Colles' fracture, wrist fracture, hand fracture, finger sprain, cellulitis, arthritis, tendonitis Vital Signs Vital Signs: Vital Signs Temperature 98.4 F 10/04/24 13:37 Pulse Rate 86 10/04/24 13:37 Respiratory Rate 20 10/04/24 13:37 Blood Pressure 172/100 H 10/04/24 13:37 Pulse Oximetry 100 10/04/24 13:37 Oxygen Delivery Room Air 10/04/24 13:37 Temperature 98.4 F 10/04/24 13:37 Pulse Rate 86 10/04/24 13:37 Respiratory Rate 20 10/04/24 13:37 Blood Pressure 172/100 H 10/04/24 13:37 Pulse Oximetry 100 10/04/24 13:37 Oxygen Delivery Room Air 10/04/24 13:37 Imaging Data Radiologist's impression: Patient: Antoinette Da Silva : 1960 MR#: [id number] Age: 64 Acct:[id number] Loc: [facility] ADM Date: 10/04/24Attending Dr: Ordering Physician: Sharla De León APRN Date of Service: 10/04/24 Procedure(s): XR hand RT min 3V; XR wrist RT min 3V Accession Number(s): [id number]; [id number] cc: Sharla De León APRN; Rosa, Yg Zaldivar MD~ EXAMINATION: 1. XR wrist RT min 3V 2. XR hand RT min 3V DATE: 10/04/2024 13:55 INDICATION: Right hand and wrist injury. TECHNIQUE: 3 views of right wrist and 3 views of right hand were obtained. COMPARISON: None. FINDINGS: RIGHT WRIST: There is a transverse fracture of distal ulnar diaphysis. The distal fracture fragment demonstrates one half shaft width volar displacement, one half shaft width radial displacement, and 11 degrees ulnar angulation. There is an oblique fracture of distal radius. The distal fracture fragment demonstrates 2 mm dorsal displacement, impaction, 36 degrees dorsal angulation, and 20 degrees ulnar angulation. There is dislocation of distal radioulnar joint. 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 RIGHT HAND: Again seen are the fractures of radius and ulna. There is mild osteoarthritis of some of the interphalangeal joints. IMPRESSION: 1. Transverse fracture of distal ulnar diaphysis. 2. Oblique fracture of distal radius. Discharge Plan Discharge Clinical Impression: Closed fracture distal radius and ulna Qualifiers: Encounter type: initial encounter Laterality: right Qualified Code(s): S52.501A - Unspecified fracture of the lower end of right radius, initial encounter for closed fracture; S52.601A - Unspecified fracture of lower end of right ulna, initial encounter for closed fracture Patient Disposition: Home, Self-Care Condition: Stable Instructions: Arm Fracture in Adults (ED), Splint Care (ED) Additional Instructions: Rest, elevate the right arm Tylenol 1000mg every 8 hours. Keep splint clean, dry and in place. Use garbage bag while showering to keep splint dry. Use sling. Go to the ER immediately for increased pain, tingling/numbness, or any worsening symptoms or concerns Check your finger sensation frequently. Follow up with Orthopedic Surgery as scheduled --- Tuesday10/08/24 at 1:[address] Rendon [address] Patient Language: Lao Prescriptions: No Action celecoxib 200 mg capsule carvedilol 25 mg tablet diltiazem HCl [DILT-XR] 240 mg capsule,ext.rel 24h degradable PO potassium chloride 10 mEq tablet extended release PO omeprazole 40 mg capsule,delayed release(DR/EC) levothyroxine 100 mcg tablet losartan-hydrochlorothiazide 100-25 mg tablet isosorbide mononitrate 60 mg tablet extended release 24 hr PO alprazolam 0.25 mg tablet digoxin 125 mcg (0.125 mg) tablet metoclopramide HCl 10 mg tablet ezetimibe 10 mg tablet rosuvastatin 5 mg tablet duloxetine 60 mg capsule,delayed release(DR/EC) PO Eliquis 5 mg tablet Follow-up/Referrals: Rosa,Yg Zaldivar MD [Primary Care Provider] -
[2024-10-04] MEDS: ACETAMINOPHEN 500 MG TABLET 1000 MG PO (14:32)
--- NOTE | 2024-10-04 14:49 | PC.NURSE ---
aware of awaiting consult at [address] and no request at this time.
== END 2024-10-04 15:44 | disposition home or self-care (01) ==
PROVIDERS: Emergency Provider Nurse Practitioner Family; PCP Internal Medicine
DX: S52.591A Other fractures of lower end of right radius, initial encounter for closed fracture (principal); S52.691A Other fracture of lower end of right ulna, initial encounter for closed fracture; W19.XXXA Unspecified fall, initial encounter; Z87.891 Personal history of nicotine dependence; I48.91 Unspecified atrial fibrillation; I10 Essential (primary) hypertension; M06.9 Rheumatoid arthritis, unspecified; Z79.01 Long term (current) use of anticoagulants
CPT/HCPCS: 29125; 73090; 73110; 73130; 99214; A4565; A9270; G0463

== ENCOUNTER 2024-10-08 13:07 | Outpatient (CLI) | payer OTHER, SELFPAY ==
--- NOTE | ~2024-10-08 | XR_ITS ---
Right wrist Technique: PA, oblique, lateral, and ulnar deviation views were obtained. Clinical History: Fracture follow-up COMPARISON: 10/04/2024 Findings: Cast is in place over the wrist, somewhat obscuring fine bony detail. Transverse fracture t he distal radial metaphyseal region is again present, with ulnar angulation of the distal fracture fr agment. Transverse fracture of the distal third of the ulnar shaft is also again present, with radial displacement of the distal fracture fragment by one half shaft width. There is significant positive ulnar variance likely on a posttraumatic basis.. Impression: Transverse, comminuted and significantly angled fracture the distal radial metaphysis, similar in ali gnment from prior exam. Transverse, mildly displaced fracture the distal third of the ulnar shaft, also similar in alignment from prior exam. Reviewed, dictated and finalized at [facility]. OR DEPARTMENT Impression: Transverse, comminuted and significantly angled fracture the distal radial meta physis, similar in alignment from prior exam. Transverse, mildly displaced fracture the distal third of the ulnar shaft, also similar in alignment from prior exam.
--- OUTSIDE RECORDS SUMMARY | 2024-10-08 13:21 | XMS_ITS | Clinical Summary ---
Author Organization [facility] [employer] Address [address] [place] [address] Care Team Providers Care Principal Statistical Programmer Name Role Phone Shandra Ruffin Malcolm WISDOM-EMTS Primary Care Provider Source Comments [facility] [employer],non-owned Affiliates and Associated Physician Practices is amultiple site organization consisting of ambulatory clinics and hospital sitesin [place], [place], [place] and [place]. This disclosure is being madepursuant to the Care Everywhere program and may not contain all information available regarding this patient. Last updated 18.[facility] [employer] Allergies Active Allergy Reactions Criticality Noted Date [...] LURIA, FLUZONE TRIVALENT; 6MO+) (IIV3) 06/16/2016,06/11/2015,06/01/2014,2012,06/14/2012,06/01/2011 Covid Common Sensing primary monoval ent 12+ yr 0.3mL Purple [...] Comments COMPREHENSIVE METABOLIC PANEL 08/31/2022 9:26 AM UNDERWRITING SUPPORT SPECIALIST from Last 3 Months or Most Recently Relevant to Health Maintenance Results * (ABNORMAL) COMPREHENSIVE METABOLIC PANEL (08/31/2022 9:26 AM UNDERWRITING SUPPORT SPECIALIST) Glucose 105(H) 65 - 99 mg/dL [facility] [...] 29 U/L [facility] Comment: Test Performed at: [facility] [id number] [place] [address] LUISA LAWRENCE DO,MPH 08/31/2022 9:26 AM UNDERWRITING SUPPORT SPECIALIST 08/31/2022 9:27 AM UNDERWRITING SUPPORT SPECIALIST Mitchell Zamarripa MD LAB - CHEMISTRY INGRID DE [facility] [id number] [place] [address] from Last 3 Months or Most Recently Relevant to Health Maintenance Advance Directives * FULL RESUSCITATION (Latest Code Status on File) Date Activated Date Inactivated Comments 11/08/2011 12:50 PM 11/10/2011 12:21 AM Care Teams Principal Statistical Programmer Relationship Specialty Start Date End Date Shandra Ruffin, SHIFT MGR-EMTS [address] [place] [phone] PCP - General 04/02/22
--- OUTSIDE RECORDS SUMMARY | 2024-10-08 13:21 | XMS_ITS | Referral Summary ---
Author Organization [facility] [employer] Address [address] [place] [address] Care Team Providers Care Court Recording Monitor Name Role Phone Shandra Ruffin Malcolm WISDOM-NEONATAL NURSE Primary Care Provider Source Comments [facility] [employer],non-owned Affiliates and Associated Physician Practices is amultiple site organization consisting of ambulatory clinics and hospital sitesin [place], [place], [place] and [place]. This disclosure is being madepursuant to the Care Everywhere program and may not contain all information available regarding this patient. Last updated 18.[facility] [employer] Allergies Active Allergy Reactions Criticality Noted Date [...] LURIA, FLUZONE TRIVALENT; 6MO+) (IIV3) 06/16/2016,06/11/2015,06/01/2014,2012,06/14/2012,06/01/2011 Covid emaze primary monoval ent 12+ yr 0.3mL Purple [...] Comments COMPREHENSIVE METABOLIC PANEL 08/31/2022 9:26 AM AUTOMOTIVE WORKER from Last 3 Months or Most Recently Relevant to Health Maintenance Results * (ABNORMAL) COMPREHENSIVE METABOLIC PANEL (08/31/2022 9:26 AM AUTOMOTIVE WORKER) Glucose 105(H) 65 - 99 mg/dL [facility] [...] 29 U/L [facility] Comment: Test Performed at: [facility] [address] [place] [address] LUISA LAWRENCE DO,MPH 08/31/2022 9:26 AM AUTOMOTIVE WORKER 08/31/2022 9:27 AM AUTOMOTIVE WORKER Mitchell Zamarripa MD LAB - CHEMISTRY INGRID DE GU[facility] Organization Address City/State/ZIP Co de Phone Number [facility] [address] [place] [address] from Last 3 Months or Most Recently Relevant to Health Maintenance Advance Directives * FULL RESUSCITATION (Latest Code Status on File) Date Activated Date Inactivated Comments 11/08/2011 12:50 PM 11/10/2011 12:[address] Recording Monitor Relationship Specialty Start Date End Date Shandra Ruffin, STEWARD/STEWARDESS NIGHT-NEONATAL NURSE [address] [place] [id number] PCP - General 04/02/22
--- OUTSIDE RECORDS SUMMARY | 2024-10-08 13:21 | XMS_ITS | Patient Health Summary ---
Author Organization [facility] Address [address] [place] [address] Care Team Providers Care Strategic Partnership Representative Name Role Phone Shandra Ruffin Malcolm WISDOM-COMMUNICATION MANAGER Primary Care Provider Note from [facility],non-owned Affiliates and Associated Physician Practices is amultiple site organization consisting of ambulatory clinics and hospital sitesin [place], [place], [place] and [place]. This disclosure is being madepursuant to the Care Everywhere program and may not contain all information available regarding this patient. Last updated 18.[facility] Allergies * Ciprofloxacin(Other,Myalgias) -Medium Criticality * [...] 06/11/2015, 06/01/2014, 07/28/2013, 06/14/2012, 06/01/2011) * Covid Yugma primary monovalent 12+ yr 0.3mL Purple cap(Given [...] * CENTROMERE B ANTIBODIES(Performed 03/31/2021) * MONTIEL (SM)+PICTURE ENLARGER ANTIBODY PANEL(Performed 03/31/2021) * MARTHA-1 ANTIBODY(Performed 03/31/2021) [...] for Arthritis, Myalgia, Hx of psoriasis * PICTURE ENLARGER ANTIBODY(Performed 05/24/2019) Performed for Arthritis, Myalgia, Hx [...] * (ABNORMAL) C-REACTIVE PROTEIN (08/31/2022 9:26 AM LINING 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) Only the most recent of6 resultswithin the time period is included. Pathologist [facility] C-Reactive Protein 27.6(H) <8.0 mg/L [facility] Comment: REPORT COMMENT: FASTING:YES Test Performed at: [place], [employer] [address] LUISA LAWRENCE DO,MPH 08/31/2022 9:26 AM LINING 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 08/31/2022 9:27 AM LINING 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 Micthell Zamarripa MD LAB - CHEMISTRY INGRID DE GUZMAN [facility] [address] [place] [address] * ERYTHROCYTE SEDIMENTATION RATE (08/31/2022 9:26 AM LINING 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) Only the most recent of6 resultswithin the time period is included. Pathologist [facility] Erythrocyte Sedimentation Rate Westergren 25 < OR = 30 mm/h [facility] Comment: Test Performed at: [employer] [id number] [employer], [employer] [address] LUISA LAWRENCE DO,MPH 08/31/2022 9:26 AM LINING 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 08/31/2022 9:27 AM LINING 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 Mitchell Zamarripa MD LAB - HEMATOLOGY ORD ERABLES [facility] [address] [place] [address] * (ABNORMAL) CBC WITH DIFFERENTIAL (08/31/2022 9:26 AM LINING 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) Only the most recent of6 resultswithin the [...] 0.9 % [facility] Comment: Test Performed at: [employer] [address] [employer] [place] [address] LUISA LAWRENCE DO,MPH Blasts [facility] nRBC [facility] Comments [facility] Comment: Test Performed at: [employer] [id number] [employer] [address] LUISA LAWRENCE DO,MPH 08/31/2022 9:26 AM LINING 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 08/31/2022 9:27 AM LINING 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 Mitchell Zamarripa MD LAB - HEMATOLOGY ORD [facility] Organization Address City/State/ZIP Co de Phone Number [facility] [address] [place] [address] * (ABNORMAL) COMPREHENSIVE METABOLIC PANEL (08/31/2022 9:26 AM LINING 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) Only the most recent of6 resultswithin the [...] 29 U/L [facility] Comment: Test Performed at: [employer] [id number] [place] [address] LUISA LAWRENCE DO,MPH 08/31/2022 9:26 AM LINING 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 08/31/2022 9:27 AM LINING 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 Mitchell Zamarripa MD LAB - CHEMISTRY ORDE GAB Performing Organization Address [facility] de Phone Number [facility] [address] [place] [phone] * URINALYSIS W/MICROSCOPIC NO CULTURE (08/11/2021 8:16 AM LINING 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) Only the most recent of3 resultswithin the time period is included. Color UA YELLOW YELLOW [facility] Appearance CLEAR CLEAR [facility] Specific [place] UA 1.010 1.001 - 1.035 [facility] pH [...] SEEN /LPF [facility] Comment: Test Performed at: [place], [place] [address] LUISA LAWRENCE DO,MPH Granular Casts [facility] Casts UA [facility] Yeast [facility] Comments [facility] Note [facility] Comment: Test Performed at: [place], [employer] [address] LUISA LAWRENCE DO,MPH 08/11/2021 8:16 AM LINING 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 08/11/2021 8:17 AM LINING 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 Mitchell Zamarripa MD LAB - URINALYSIS ORD ERABLES Performing Organization Address [facility] Co de Phone Number [facility] [address] [place] [address] * URIC ACID BLOOD (08/11/2021 8:16 AM LINING 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) Only the most recent of4 resultswithin the time period is included. Uric Acid 5.8 2.5 - 7.0 mg/dL [facility] Comment: Therapeutic target for gout patients: <6.0 mg/dL Test Performed at: [employer] [address] LUISA LAWRENCE DO,MPH 08/11/2021 8:16 AM LINING 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 08/11/2021 8:17 AM LINING 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 Mitchell Zamarripa MD LAB - CHEMISTRY INGRID Galvez Organization Address City/State/ZIP Co de Phone Number [facility] [address] [place] [address] * XR FOOT RIGHT 3VW OR MORE (08/03/2021 2:52 PM LINING 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) Only the most recent of2 resultswithin the time period is included. Anatomical Region Laterality Modality Ankle / Foot Radiographic Kristyn ging 08/03/2021 2:57 PM LINING 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 Impressions 08/03/2021 3:17 PM LINING 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 IMPRESSION: 1. Right hand: Mild arthritis of [...] 3:17 PM . Narrative 08/03/2021 3:17 PM LINING 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 Exam: 1.XR HAND RIGHT 3VW 2.XR FOOT [...] osteophytes. There is moderate narrowing of the onyobhzl-uiptrjyxb-nztyzamvb joint space. No erosions are seen. The [...] osteophytes. There is moderate narrowing of the cnaagmjv-afeujcdkv-pwnigcjkn joint space. No erosions are seen. Thebones [...] LEFT 3VW OR MORE (08/03/2021 2:52 PM LINING 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) Only the most recent of2 resultswithin the time period is included. Anatomical Region Laterality Modality Ankle / Foot Radiographic Kristyn ging 08/03/2021 2:57 PM LINING 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 Impressions 08/03/2021 3:17 PM LINING 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 IMPRESSION: 1. Right hand: Mild arthritis of [...] 3:17 PM . Narrative 08/03/2021 3:17 PM LINING 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 Exam: 1.XR HAND RIGHT 3VW 2.XR FOOT [...] osteophytes. There is moderate narrowing of the ewzmubwk-qbrcpcmkf-xexfbxkka joint space. No erosions are seen. The [...] osteophytes. There is moderate narrowing of the aqltgaei-xjuqbqulf-zueiwwbyb joint space. No erosions are seen. Thebones [...] RIGHT 3VW OR MORE (08/03/2021 2:52 PM LINING 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) Only the most recent of2 resultswithin the time period is included. Anatomical Region Laterality Modality Wrist / Hand Radiographic Kristyn ging 08/03/2021 2:57 PM LINING 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 Impressions 08/03/2021 3:17 PM LINING 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 IMPRESSION: 1. Right hand: Mild arthritis of [...] 3:17 PM . Narrative 08/03/2021 3:17 PM LINING 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 Exam: 1.XR HAND RIGHT 3VW 2.XR FOOT [...] osteophytes. There is moderate narrowing of the fxfmjeuw-wqelpcvut-cmaxnfmlm joint space. No erosions are seen. The [...] osteophytes. There is moderate narrowing of the cdnjpkhv-pmzuidqel-pkulehifj joint space. No erosions are seen. Thebones [...] LEFT 3VW OR MORE (08/03/2021 2:52 PM LINING 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) Only the most recent of2 resultswithin the time period is included. Anatomical Region Laterality Modality Wrist / Hand Radiographic Kristyn ging 08/03/2021 2:57 PM LINING 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 Impressions 08/03/2021 3:17 PM LINING 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 IMPRESSION: 1. Right hand: Mild arthritis of [...] 3:17 PM . Narrative 08/03/2021 3:17 PM LINING 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 Exam: 1.XR HAND RIGHT 3VW 2.XR FOOT [...] osteophytes. There is moderate narrowing of the kqpqxizn-wpxewpmqo-zwnycwgsi joint space. No erosions are seen. The [...] osteophytes. There is moderate narrowing of the gfkmtmxe-zaberaycr-ofrqfnwlv joint space. No erosions are seen. Thebones [...] RIGHT 3VW OR MORE (08/03/2021 2:52 PM LINING 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) Anatomical Region Laterality Modality Wrist / Hand Radiographic Kristyn ging 08/03/2021 2:57 PM LINING 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 Impressions 08/03/2021 3:17 PM LINING 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 IMPRESSION: 1. Right hand: Mild arthritis of [...] 3:17 PM . Narrative 08/03/2021 3:17 PM LINING 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 Exam: 1.XR HAND RIGHT 3VW 2.XR FOOT [...] osteophytes. There is moderate narrowing of the mijrwskb-zmdfpwran-pqwloyxuj joint space. No erosions are seen. The [...] osteophytes. There is moderate narrowing of the bchdgzso-xlmhqmwzt-lxazqqafz joint space. No erosions are seen. Thebones [...] LEFT 3VW OR MORE (08/03/2021 2:52 PM LINING 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) Anatomical Region Laterality Modality Wrist / Hand Radiographic Kristyn ging 08/03/2021 2:57 PM LINING 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 Impressions 08/03/2021 3:17 PM LINING 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 IMPRESSION: 1. Right hand: Mild arthritis of [...] 3:17 PM . Narrative 08/03/2021 3:17 PM LINING 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 Exam: 1.XR HAND RIGHT 3VW 2.XR FOOT [...] osteophytes. There is moderate narrowing of the ouvvsmus-qkpknahwk-mkellhbpc joint space. No erosions are seen. The [...] osteophytes. There is moderate narrowing of the yvvomtog-rugchuvts-ljdnvyyjt joint space. No erosions are seen. Thebones [...] MD DIAGNOSTIC IMAGING O RDERABLES * MONTIEL (SM)+PICTURE ENLARGER ANTIBODY PANEL (03/31/2021 9:59 AM CDT) SM Antibody <1.0 NEG <1.0 NEG AI [facility] SM/PICTURE ENLARGER Antibody <1.0 NEG <1.0 NEG AI [facility] Comment: Test Performed at: [facility] [address] [place] [address] LUISA LAWRENCE DO,MPH 03/31/2021 9:59 AM CDT 03/31/2021 9:59 AM CDT Mitchell Zamarripa MD LAB - SEROLOGY ORDER XOCHITL Performing Organization Address [facility] Co de Phone Number [facility] [address] [place] [address] * CENTROMERE B ANTIBODIES (03/31/2021 9:59 AM CDT) Centromere B Antibody <1.0 NEG <1.0 NEG AI [facility] Comment: Test Performed at: [employer] [address] [place] [address] LUISA LAWRENCE DO,MPH 03/31/2021 9:59 AM CDT 03/31/2021 9:59 AM CDT Mitchell Zamarripa MD LAB - SEROLOGY ORDER XOCHITL Performing Organization Address [facility] Co de Phone Number [facility] [address] [place] [address] * CHROMATIN ANTIBODY (03/31/2021 9:59 AM CDT) Chromatin Nucleosomal Antibody <1.0 NEG <1.0 NEG AI [facility] Comment: Test Performed at: [facility] [place] [address] [facility] [address] LUISA LAWRENCE DO,MPH 03/31/2021 9:59 AM CDT 03/31/2021 9:59 AM CDT Mitchell Zamarripa MD LAB - SEROLOGY ORDER XOCHITL Performing Organization Address [facility] Co de Phone Number [facility] [address] [place] [address] * RNA POLYMERASE III ANTIBODY IGG (03/31/2021 9:59 AM CDT) RNA Polymerase 3 Antibody <20 <20 Units [facility] Comment: Test Performed at: [employer]/[facility] [address] [place] [address] JONATHAN LUQUE MD,PHD,JAQUELINE 03/31/2021 9:59 AM CDT 03/31/2021 9:59 AM CDT Mitchell Zamarripa MD LAB - SEROLOGY ORDER XOCHITL Performing Organization Address City/[facility] Co de Phone Number [facility] [address] [place] [address] * PM/SCL-100 ANTIBODY IGG (03/31/2021 9:59 AM CDT) PM Scl 100 AB <20 <20 Units [facility] Comment: Negative: <20 Weak Positive: 20 - 39 Moderate Positive: 40 - 80 Strong Positive: >80 Comments: This test was developed and its performance characteristics determined by [facility]. It has not been cleared or approved by the Food and Drug Administration. Test Performed at: [employer] [address] [place] [id number] NATALYA PEREZ MD 03/31/2021 9:59 AM CDT 03/31/2021 9:59 AM CDT Mitchell Zamarripa MD LAB - SEROLOGY ORDER XOCHITL Performing Organization Address [facility] Co de Phone Number [facility] [address] [place] [address] * HISTONE ANTIBODY (03/31/2021 9:59 AM CDT) [facility] Histone Antibodies <1.0 U [facility] Comment: Value Expanation of Results <1.0 Negative 1.0-1.5 Weak Positive 1.6-2.5 Moderate Positive >2.5 Strong Positive Test Performed at: [employer] [facility] [address] [place] [address] JONATHAN LUQUE MD,PHD,JAQUELINE 03/31/2021 9:59 AM CDT 03/31/2021 9:59 AM CDT Mitchell Zamarripa MD LAB - CHEMISTRY INGRID DE GUZMAN Performing Organization Address City/[facility] Co de Phone Number [facility] [address] [place] [address] * SS-B (SJOGREN'S) ANTIBODY (03/31/2021 9:59 AM CDT) Only the most recent of2 resultswithin the time period is included. Sjogren's Antibodies (SSB) <1.0 NEG <1.0 NEG AI [facility] Comment: Test Performed at: [facility] [address] [place] [address] LUISA LAWRENCE DO,MPH 03/31/2021 9:59 AM CDT 03/31/2021 9:59 AM CDT Mitchell Zamarripa MD LAB - CHEMISTRY [place] [facility] Performing Organization Address [facility] [place] [address] * SS-A (SJOGREN'S) ANTIBODY (03/31/2021 9:59 AM CDT) Only the most recent of2 resultswithin the time period is included. Sjogren's Antibodies (SSA) <1.0 NEG <1.0 NEG AI [facility] Comment: Test Performed at: [facility] [address] LUISA LAWRENCE DO,MPH 03/31/2021 9:59 AM CDT 03/31/2021 9:59 AM CDT Mitchell Zamarripa MD LAB - CHEMISTRY INGRID DE GUZMAN Performing Organization Address [facility] Co de Phone Number [facility] [phone] [place] [address] * SCLERODERMA 70 (SCL) ANTIBODY (03/31/2021 9:59 AM CDT) Only the most recent of2 resultswithin the time period is included. SCL-70 Antibody <1.0 NEG <1.0 NEG AI [facility] Comment: Test Performed at: [facility] [address] [place] [address] LUISA LAWRENCE DO,MPH 03/31/2021 9:59 AM CDT 03/31/2021 9:59 AM CDT Mitchell Zamarripa MD LAB - CHEMISTRY INGRID DE GUZMAN Performing Organization Address [facility] Co de Phone Number [facility] [phone] [place] [address] * DNA ANTIBODY DOUBLE STRANDED (03/31/2021 9:59 AM CDT) dsDNA Antibody <1 IU/mL [facility] Comment: IU/mL Interpretation < or = 4 Negative 5-9 Indeterminate > or = 10 Positive Test Performed at: [place], [employer] [address] LUISA LAWRENCE DO,MPH 03/31/2021 9:59 AM CDT 03/31/2021 9:59 AM CDT Mitchell Zamarripa MD LAB - HEMATOLOGY SANAZ ORANTES Performing Organization Address [facility] Co de Phone Number [facility] [phone] [place] [address] * MARTHA-1 ANTIBODY (03/31/2021 9:59 AM CDT) Martha-1 Antibody <1.0 NEG <1.0 NEG AI [facility] Comment: Test Performed at: [employer], [employer] [address] LUISA LAWRENCE DO,MPH 03/31/2021 9:59 AM CDT 03/31/2021 9:59 AM CDT Mitchell Zamarripa MD LAB - CHEMISTRY INGRID DE GUZMAN Performing Organization Address [facility] Co de Phone Number [place] [phone] * ALDOLASE (03/31/2021 9:59 AM CDT) Only the most recent of3 resultswithin the time period is included. Aldolase 5.2 < OR = 8.1 U/L [facility] Comment: Test Performed at: [employer] [address] [employer], [employer] [address] LUISA LAWRENCE DO,MPH 03/31/2021 9:59 AM CDT 03/31/2021 9:59 AM CDT Mitchell Zamarripa MD LAB - CHEMISTRY INGRID DE GUZMAN Performing Organization Address [facility] Co de Phone Number [facility] [phone] [place] [address] * LDH BLOOD (03/31/2021 9:59 AM CDT) Only the most recent of3 resultswithin the time period is included. LD-Total 181 120 - 250 U/L [facility] Comment: Test Performed at: [employer] [address] LUISA LAWRENCE DO,MPH 03/31/2021 9:59 AM CDT 03/31/2021 9:59 AM CDT Mitchell Zamarripa MD LAB - CHEMISTRY INGRID DE GUZMAN Performing Organization Address [facility] Co de Phone Number [facility] [phone] [place] [address] * CK BLOOD (03/31/2021 9:59 AM CDT) Only the most recent of3 resultswithin the time period is included. CK 68 29 - 143 U/L [facility] Comment: Test Performed at: [employer] [address] LUISA LAWRENCE DO,MPH 03/31/2021 9:59 AM CDT 03/31/2021 9:59 AM CDT Mitchell Zamarripa MD LAB - CHEMISTRY INGRID DE GUZMAN Performing Organization Address [facility] Co de Phone Number [facility] [address] [place] [phone] * CULTURE URINE REFLEXED I (12/21/2019 8:29 AM CDT) Reflexive Urine Culture NO CULTURE INDICATED [facility] Comment: Test Performed at: [place], [employer] [address] LUISA LAWRENCE DO,MPH 12/21/2019 8:29 AM CDT 12/21/2019 8:31 AM CDT Mitchell Zamarripa MD LAB - MICROBIOLOGY O RDERABLES Performing Organization Address [facility] de Phone Number [facility] [address] [place] [address] * (ABNORMAL) URINALYSIS W/MICROSCOPIC REFLEX TO CULTURE (12/21/2019 8:29 AM CDT) Color UA YELLOW YELLOW [facility] Appearance CLOUDY(A) CLEAR [facility] Specific [place] UA 1.016 1.001 - 1.035 [facility] pH [...] MUCOUS THREADS [facility] Comment: Test Performed at: [employer] [facility] [address] LUISA LAWRENCE DO,MPH Reflexive Urine Culture NO CULTURE INDICATED [facility] Comment: REPORT COMMENT: FASTING:YES Test Performed at: [place] [address] LUISA LAWRENCE DO,MPH Urine URINE SPECIMEN OBTAINED BY CLEAN CATCH PROCEDURE / Unknown 12/21/2019 8:29 AM CDT 12/21/2019 8:31 AM CDT Mitchell Zamarripa MD LAB - URINALYSIS ORD ERABLES Performing Organization Address [facility] Co de Phone Number [facility] [address] [place] [address] * (ABNORMAL) TY BLOOD SINGLE PATTERN (07/23/2019 2:21 PM LINING 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) TY Pattern Speckled( A) 07/25/2019 5:39 PM LINING 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 [employer] ([facility]) TY Titer 1:80(A) 07/25/2019 5:39 PM LINING 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 [facility] ([facility]) Comment: Performed by [employer], [address] [place] [address],[place] [address] www.[employer], Barry Carmona MD, Lab. Director Blood BLOOD SPECIMEN / Unknown Lab Venipuncture / Unknown 07/23/2019 2:21 PM LINING 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 07/23/2019 3:13 PM LINING 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 Janes Smith MD LAB - CHEMISTRY INGRID DE GUZMAN [facility] [employer] [facility]) [address] [place] [address], [facility] * (ABNORMAL) SCLERODERMA COMPREHENSIVE AB PANEL (07/23/2019 2:21 PM LINING 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) TY HEp-2 IgG Detected(H ) <1:80 07/26/2019 7:52 PM LINING 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 [facility] [employer] ([facility]) TY Interpretive Comment See Note 07/26/2019 7:52 PM LINING 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 [facility] [employer] ([facility]) Comment: Speckled Pattern Clinical associations: SLE, SSc, SjS, DM, PM, MCTD, UCTD. May also be found in healthy individuals Main autoantibodies: Anti-SSA-52 (Ro52), anti-SSA-60 (Ro60), anti-SS-B/LA, anti-Kareem-1 (anti-Scl-70), Montiel, anti-U1-PICTURE ENLARGER, anti-U2-PICTURE ENLARGER, anti-Mi-2, anti-TIF1g, anti-Ku, anti-RNA polymerase, anti-DFS70/LEDGF-P75 Clinical [...] 0 - 40 AU/mL 07/26/2019 7:52 PM [facility] [employer] ([facility]) Comment: INTERPRETIVE INFORMATION: Scleroderma (Scl-70) (LAUREN) Ab, [...] testing for centromere, RNA polymerase III and U3-PICTURE ENLARGER, PM/Scl, or Th/To antibodies. RNA Polymerase 3 Antibody IgG 5 0 - 19 Units 07/26/2019 7:52 PM [facility] [employer] ([facility]) Comment: INTERPRETIVE INFORMATION: RNA Polymerase III Antibody, [...] antibodies associated with SSc, including centromere, Scl-70, U3-PICTURE ENLARGER, PM/Scl, or Th/To. Montiel/PICTURE ENLARGER (LAUREN) Antibody IgG 1 0 - 40 AU/mL 07/26/2019 7:52 PM [facility] [employer] ([facility]) Comment: INTERPRETIVE INFORMATION: Montiel/PICTURE ENLARGER (LAUREN) Antibody, IgG 29 AU/mL or Less ............. Negative 30 - 40 AU/mL ................ Equivocal 41 AU/mL or Greater .......... Positive Montiel/PICTURE ENLARGER antibodies are frequently seen in patients with mixed connective tissue disease (MCTD) and are also associated with other systemic autoimmune rheumatic diseases (SARDs) such as systemic lupus erythematosus (SLE), systemic sclerosis, and myositis. Antibodies targeting the Montiel/PICTURE ENLARGER antigenic complex also recognize Montiel antigens, therefore, the Montiel antibody response must be considered when interpreting these results. PM/Scl 100 Antibody IgG Negative Negative 07/26/2019 7:52 PM [facility] [employer] ([facility]) Comment: INTERPRETIVE INFORMATION: PM/Scl-100 Antibody, IgG by [...] occur. Test developed and characteristics determined by [employer]. See Compliance Statement D: [employer]/CS Fibrillarin (U3 PICTURE ENLARGER) Antibody IgG Negative Negative 07/26/2019 7:52 PM LINING 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 [facility] [employer] ([facility]) Comment: Interpretive Information: Fibrillarin (U3 PICTURE ENLARGER) Antibody, IgG The presence of fibrillarin (U3-PICTURE ENLARGER) IgG antibodies in association with an TY [...] a multi-ethnic cohort of SSc patients (n=98), U3-PICTURE ENLARGER antibodies detected by immunoblot had an agreement of 98.9 percent with the gold standard immunoprecipitation (IP) assay. Approximately 71 percent (5/7) of the borderline U3-PICTURE ENLARGER results with TY nucleolar pattern in this cohort were IP negative. Test developed and characteristics determined by [employer]. See Compliance Statement D: [facility]/CS Performed by [employer], [address] [place] [address] www.[employer], Barry Carmona MD, Lab. Director Blood BLOOD SPECIMEN / Unknown Lab Venipuncture / Unknown 07/23/2019 2:21 PM LINING 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 07/23/2019 3:13 PM LINING 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 Janes Smith MD LAB - SEROLOGY ORDER XOCHITL [employer] ([facility]) [address] [place] [address], [facility] * CYCLIC CITRUL PEPTIDE ANTIBODY IGG/IGA (CCP) (07/23/2019 2:21 PM LINING 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) CCP Antibodies IgG/IgA 10 0 - 19 units 07/24/2019 11:06 PM LINING 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 [facility] ([facility]) Comment: Negative <20 Weak positive 20 - 39 Moderate positive 40 - 59 Strong positive >59 Blood BLOOD SPECIMEN / Unknown Lab Venipuncture / Unknown 07/23/2019 2:21 PM LINING 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 07/23/2019 3:13 PM LINING 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 Narrative [facility] ([facility]) - 07/24/2019 11:06 PM LINING 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 Performed at: - [address] [id number] Power Clean[employer] Operator: Virginia Mojica MD, Phone: [phone] Janes Smith MD LAB - SEROLOGY ORDER XOCHITL [facility] ([facility]) [address] [place] [address] * DNA ANTIBODY DS CRITHIDIA TITER (07/23/2019 2:21 PM LINING 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) [facility] dsDNA Antibody IgG <1:10 <1:10 2018 4:54 PM LINING 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 [facility] [facility] ([facility]) Comment: INTERPRETIVE INFORMATION: Double-Stranded DNA (dsDNA) Antibody, [...] recommendations for testing may be found at [email or web address] [email or web address]. Performed by [employer], [address] [place] [address] www.[employer], Barry Carmona MD, Lab. Director Blood BLOOD SPECIMEN / Unknown Lab Venipuncture / Unknown 07/23/2019 2:21 PM LINING 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 07/23/2019 3:13 PM LINING 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 Janes Smith MD LAB - SEROLOGY ORDER XOCHITL [facility] ([facility]) [address] * (ABNORMAL) LUPUS ANTICOAGULANT PANEL (07/23/2019 2:21 PM LINING 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) APTT 28.3 23.0 - 38.4 Seconds 07/24/2019 11:07 AM [facility] PT 11.6(L) 12.1 - 14.8 Seconds 07/24/2019 11:07 AM [facility] INR 0.9 See Comment 07/24/2019 11:07 AM [facility] [place] Buffer 46.5 Seconds 019 11:07 AM [facility] [place] Phospholipid 42.7 Seconds 07/24/2019 11:07 AM [facility] [place] Delta 3.8 <8.0 Seconds 07/24/2019 11:07 AM [facility] Interpretation [place] Negative Negative 07/24/2019 11:07 AM [facility] Comment:Up to 15-20% of crystal ents with [...] Lab Venipuncture / Unknown 07/23/2019 2:21 PM LINING 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 07/23/2019 3:13 PM LINING 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 Janes Smith MD LAB - HEMATOLOGY ORD ERABLES [facility] [address] [phone] * RHEUMATOID FACTOR BLOOD QUANTITATIVE (07/23/2019 2:21 PM LINING 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) Rheumatoid Factor <15 <30 IU/mL 07/23/2019 3:42 PM [facility] Blood BLOOD SPECIMEN / Unknown Lab Venipuncture / Unknown 07/23/2019 2:21 PM LINING 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 07/23/2019 3:13 PM LINING 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 Janes Smith MD LAB - CHEMISTRY INGRID DE GUZMAN [facility] Organization Address City/State/ZIP Co de Phone Number [facility] [address] [phone] * OCT (06/25/2019 1:43 PM CDT) Anatomical Region Laterality Modality Other 06/25/2019 1:43 PM CDT Janes Smith MD OPHTHALMOLOGY SERVIC ES ORDERABLES * (ABNORMAL) URINALYSIS REFLEX TO MICROSCOPIC NO CULTURE (05/24/2019 12:43 PM CDT) Color UA Yellow Straw, Yellow, Colorless 05/24/2019 1:10 PM [facility] Clarity UA Clear Clear, Slt Cloudy 05/24/2019 1:10 PM T [facility] Specific [place] UA 1.014 1.005 - 1.030 05/24/2019 1:10 PM [facility] pH UA 7.0 5.0 - 8.0 pH 05/24/2019 1:10 PM [facility] Protein UA Negative Negative mg/dL 05/24/2019 1:10 PM [facility] Glucose UA Negative Negative mg/dL 05/24/2019 1:10 PM [facility] Ketone UA Negative Negative mg/dL 05/24/2019 1:10 PM [facility] Bilirubin UA Negative Negative mg/dL 05/24/2019 1:10 PM [facility] Blood UA Negative Negative 05/24/2019 1:10 PM [facility] Nitrite UA Negative Negative 05/24/2019 1:10 PM [facility] Leukocyte Esterase Negative Negative 05/24/2019 1:10 PM [facility] Urobilinogen UA Negative Negative mg/dL 05/24/2019 1:10 PM [facility] RBC UA 3-5 None Seen, 0-2, 3-5 /HPF 05/24/2019 1:10 PM CDT [facility] WBC UA 0-5 None Seen, 0-5 /HPF 05/24/2019 1:10 PM CDT [facility] Squamous Epithelial Cells UA 3-5(A) None Seen, 0-2 /HPF 05/24/2019 1:10 PM CDT [facility] Urine URINE SPECIMEN OBTAINED BY CLEAN CATCH PROCEDURE / Unknown Collection / Unknown 05/24/2019 12:43 PM CDT 05/24/2019 12:55 PM CDT Narrative [facility] - 05/24/2019 1:10 PM CDT Janes Smith MD LAB - URINALYSIS ORD ERABLES Performing Organization Address City/State/[facility] Co de Phone Number [address] [phone] * XR ANKLE RIGHT 3VW OR MORE [...] IgG units 05/26/2019 6:08 AM CDT [facility] ([facility]) Comment: The reference interval reflects a 3SD or 99th percentile interval, which is thought to represent a potentially clinically significant result in accordance with the International Consensus Statement on the classification criteria for definitive antiphospholipid syndrome (APS). J Thromb Haem 2006;4:295-306. Blood BLOOD SPECIMEN / Unknown Lab Venipuncture / Unknown 05/24/2019 12:10 PM CDT 05/24/2019 12:49 PM CDT Narrative [facility] ([facility]) - 05/26/2019 6:08 AM CDT Performed at: 01 - [facility] [id number] Power Cleaner Operator: Virginia Mojica MD, Phone: [phone] Janse Smith MD LAB - SEROLOGY ORDER XOCHITL Performing Organization Address [facility] Co de Phone Number [facility] ([facility]) [address] [place] [address], [place] * BETA-2 GLYCOPROTEIN 1 ANTIBODY IGM (05/24/2019 12:10 PM CDT) [facility] Beta-2 Glycoprotein I Antibody IgM <9 0 - 32 GPI IgM units 05/26/2019 3:07 PM CDT [facility] ([facility]) Comment: The reference interval reflects a 3SD or 99th percentile interval, which is thought to represent a potentially clinically significant result in accordance with the International Consensus Statement on the classification criteria for definitive antiphospholipid syndrome (APS). J Thromb Haem 2006;4:295-306. Blood BLOOD SPECIMEN / Unknown Lab Venipuncture / Unknown 05/24/2019 12:10 PM CDT 05/24/2019 12:49 PM CDT Narrative [facility] ([facility]) - 05/26/2019 3:07 PM CDT Performed at: 01 - [address] [id number] Power Cleaner Operator: Virginia Mojica MD, Phone: [phone] Janes Smith MD LAB - SEROLOGY ORDER XOCHITL Performing Organization Address [facility] Co de Phone Number [facility] [address] [place] [address], [place] * CARDIOLIPIN ANTIBODY IGA (05/24/2019 12:10 PM CDT) Pathologist [facility] Cardiolipin Antibody IgA <9 0 - 11 APL U/mL 05/25/2019 4:09 PM CDT [facility] ([facility]) Comment: Negative: <12 Indeterminate: 12 - 20 Low-Med Positive: >20 - 80 High Positive: >80 Blood BLOOD SPECIMEN / Unknown Lab Venipuncture / Unknown 05/24/2019 12:10 PM CDT 05/24/2019 12:49 PM CDT Narrative [facility] ([facility]) - 05/25/2019 4:09 PM CDT Performed at: [address] [place] [address] [id number] Power Cleaner Operator: Khang Rosario PhD, Phone: [phone] Janes Smith MD LAB - SEROLOGY ORDER XOCHITL Performing Organization Address City/[facility] Co de Phone Number [facility] ([facility]) [address] [place] [address] * CARDIOLIPIN ANTIBODY IGM (05/24/2019 12:10 PM CDT) Pathologist [facility] Cardiolipin Antibody IgM <9 0 - 12 MPL U/mL 05/25/2019 4:09 PM [facility]T [facility] Comment: Negative: <13 Indeterminate: 13 - 20 Low-Med Positive: >20 - 80 High Positive: >80 Blood BLOOD SPECIMEN / Unknown Lab Venipuncture / Unknown 05/24/2019 12:10 PM CDT 05/24/2019 12:49 PM CDT Narrative [facility] ([facility]) - 05/25/2019 4:09 PM CDT Performed at: [address] [place] [address] [id number] Power Cleaner Operator: Khang Rosario PhD, Phone: [phone] Janes Smith MD LAB - SEROLOGY ORDER XOCHITL Performing Organization Address City/[facility]/ZIP Co de Phone Number [facility] ([facility]) [address] [place] [address] * CARDIOLIPIN ANTIBODY IGG (05/24/2019 12:10 PM CDT) Pathologist [facility] Cardiolipin Antibody IgG <9 0 - 14 GPL U/mL 05/25/2019 4:09 PM CDT [facility] ([facility]) Comment: Negative: <15 Indeterminate: 15 - 20 Low-Med Positive: >20 - 80 High Positive: >80 Blood BLOOD SPECIMEN / Unknown Lab Venipuncture / Unknown 05/24/2019 12:10 PM CDT 05/24/2019 12:49 PM CDT Narrative [facility] ([facility]) - 05/25/2019 4:09 PM CDT Performed at: - [facility] [address] [place] [address] [id number] Power Cleaner Operator: Khang Rosario PhD, Phone: [phone] Janes Smith MD LAB - SEROLOGY ORDER XOCHITL Performing Organization Address City/[facility]/ZIP Co de Phone Number [facility] ([facility]) [address] [place] [address] * MONTIEL (SM) ANTIBODY LAUREN (05/24/2019 12:10 PM CDT) Pathologist [facility] Montiel Antibody 3.4 0.0 - 19.9 Units 05/25/2019 10:05 AM CDT [facility] Comment: LAUREN Antibody Numeric Result Interpretation: <20.0 Units: Negative 20.0 - 39.0 Units: Weakly Positive >39.0 Units: Positive Blood BLOOD SPECIMEN / Unknown Lab Venipuncture / Unknown 05/24/2019 12:10 PM CDT 05/24/2019 12:48 PM CDT Janes Smith MD LAB - CHEMISTRY INGRID DE GUZMAN [address] [phone] * PICTURE ENLARGER ANTIBODY (05/24/2019 12:10 PM CDT) [facility] SM/PICTURE ENLARGER Antibody 3.2 0.0 - 19.9 Units 05/25/2019 10:05 AM CDT [facility] Comment: LAUREN Antibody Numeric Result Interpretation: <20.0 Units: Negative 20.0 - 39.0 Units: Weakly Positive >39.0 Units: Positive Blood BLOOD SPECIMEN / Unknown Lab Venipuncture / Unknown 05/24/2019 12:10 PM CDT 05/24/2019 12:48 PM CDT Janes Smith MD LAB - CHEMISTRY INGRID DE GUZMAN Performing Organization Address City/[facility]/ZIP Co de Phone Number [facility] [address] [place] [address] * TY BLOOD SCREEN W/REFLEX TITER (05/24/2019 12:10 PM CDT) TY Negative 05/25/2019 5:07 PM CDT [facility] ([facility]) Comment: Negative <1:80 Borderline 1:80 Positive >1:80 Blood BLOOD SPECIMEN / Unknown Lab Venipuncture / Unknown 05/24/2019 12:10 PM CDT 05/24/2019 12:49 PM CDT Narrative [facility] ([facility]) - 05/25/2019 5:07 PM CDT Performed at: [address] [place] [address] [id number] Power Cleaner Operator: Khang Rosario PhD, Phone: [phone] Janes Smith MD LAB - CHEMISTRY INGRID DE GUZMAN Performing Organization Address City/[facility] Co de Phone Number [facility] ([facility]) [address] [place] [address] * BETA-2 GLYCOPROTEIN 1 ANTIBODY IGA (05/24/2019 12:10 PM CDT) Beta-2 Glycoprotein I Antibody IgA <9 0 - 25 GPI IgA units 05/26/2019 6:08 AM CDT [facility] ([facility]) Comment: The reference interval reflects a 3SD or 99th percentile interval, which is thought to represent a potentially clinically significant result in accordance with the International Consensus Statement on the classification criteria for definitive antiphospholipid syndrome (APS). J Thromb Haem 2006;4:295-306. Blood BLOOD SPECIMEN / Unknown Lab Venipuncture / Unknown 05/24/2019 12:10 PM CDT 05/24/2019 12:49 PM CDT [facility]ative [facility]) - 05/26/2019 6:08 AM CDT Performed at: [address] [place] [address] [id number] Power Cleaner Operator: Virginia Mojica MD, Phone: [phone] Janes Smith MD LAB - SEROLOGY ORDER XOCHITL Performing Organization Address [facility] Co de Phone Number [facility] ([facility]) [address] [place] [address] * COMPLEMENT TOTAL (05/24/2019 12:10 PM CDT) Pathologist [facility] Complement Total CH50 >60 42 - 214719 U/mL 05/25/2019 3:08 PM CDT [facility] ([facility]) Blood BLOOD SPECIMEN / Unknown Lab Venipuncture / Unknown 05/24/2019 12:10 PM CDT 05/24/2019 12:49 PM CDT [facility] ([facility]) - 05/25/2019 3:08 PM CDT Performed at: [address] [place] [address] [place] [address] [id number] Power Cleaner Operator: Khang Rosario PhD, Phone: [phone] Janes Smith MD LAB - CHEMISTRY ORDLeidy DE GUZMAN Performing Organization Address City/[facility] Co de Phone Number [facility]) [address] [place] [address] * VITAMIN D 25-HYDROXY (05/24/2019 12:10 PM CDT) Pathologist [facility] Vitamin D, 25 Hydroxy 62.3 See comment: ng/mL 05/24/2019 1:48 PM CDT [facility] Comment: The recommendations for 25-Hydroxy [...] MD LAB - CHEMISTRY INGRID DE GUZMAN [address] [phone] * COMPLEMENT C4 (05/24/2019 12:10 PM CDT) Complement C4 39 15 - 57 mg/dL 05/24/2019 1:27 PM CDT [facility] Blood BLOOD SPECIMEN / Unknown Lab Venipuncture / Unknown 05/24/2019 12:10 PM CDT 05/24/2019 12:48 PM CDT Janes Smith MD LAB - SEROLOGY ORDER XOCHITL Performing Organization Address [facility]/[place] [address], [facility] [phone] * COMPLEMENT C3 (05/24/2019 12:10 PM CDT) Complement C3 151 82 - 193 mg/dL 05/24/2019 1:27 PM CDT [facility] Blood BLOOD SPECIMEN / Unknown Lab Venipuncture / Unknown 05/24/2019 12:10 PM CDT 05/24/2019 12:48 PM CDT Janes Smith MD LAB - CHEMISTRY INGRID DE GUZMAN Performing Organization Address City/[facility]/[place] [address], [facility] [phone] * CARDIAC RHYTHM STRIP ORDER (11/11/2011 11:11 AM CDT) Narrative Transcriptions Document, Scanned - 11/11/2011 11:11 AM CDT Scanned Document CARDIAC SERVICES ORD ERABLES * CARDIAC ECHOCARDIOGRAM COMPLETE ORDER (11/11/2011 11:11 AM CDT) Narrative Transcriptions Document, Scanned - 11/11/2011 11:11 AM CDT Scanned Document ECHO ORDERABLES * BLOOD TYPE VERIFICATION (10/28/2011 8:35 AM LINING 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) ABO Rh B Pos SEE BELOW [facility] Comment: Weak D testing is not performed at [facility] BLOOD SPECIMEN / Unknown 10/28/2011 8:35 AM LINING 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 10/28/2011 9:53 AM LINING 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 Emery Zepeda MD LAB - BLOOD BANK ORD Jan MedicalBLES Performing Organization Address [facility] de Phone Number [facility] [address] [place] [phone] * TYPE + SCREEN PANEL (10/28/2011 8:30 AM LINING 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) ABO Rh B Pos SEE BELOW [facility] Comment: Weak D testing is not performed at [facility] Antibody Screen Neg [facility] Previous History Check Done Historical blood type on record, type verification complete. [facility] Miscellaneous samples (specimen) BLOOD SPECIMEN / Unknown 10/28/2011 8:30 AM LINING 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 10/28/2011 9:23 AM LINING 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 Emery Zepeda MD LAB - BLOOD BANK ORD Jan MedicalBLES Performing Organization Address City/[facility] Co de Phone Number [facility] [address] [place] [address] * CBC W/O DIFFERENTIAL (10/28/2011 8:30 AM LINING 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) WBC 9.4 4.0 - 10.0 K/CUMM [facility] RBC 4.41 3.80 - 5.80 M/CUMM [facility] Hemoglobin 14.1 12.0 - 16.0 gm/dL [facility] Hematocrit 41.2 37.0 - 47.0 % [facility] MCV 93.4 80.0 - 100.0 fl [facility] MCH 32.0 26.0 - 34.0 pg [facility] MCHC 34.2 31.0 - 37.0 gm/dL [facility] RDW 12.5 11.5 - 14.5 % [facility] Platelet Count 373 150 - 400 K/CUMM [facility] Blood specimen (specimen) BLOOD SPECIMEN / Unknown 10/28/2011 8:30 AM LINING 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 10/28/2011 9:22 AM LINING 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 Emery Zepeda MD LAB - HEMATOLOGY ORD ERABLES Performing Organization Address [facility] Co de Phone Number [facility] [address] [place] [address] * BASIC METABOLIC PANEL (CALCIUM TOTAL) (10/28/2011 8:30 AM LINING 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) Sodium 141 136 - 145 mmol/L [facility] Potassium 3.9 3.5 - 5.1 mmol/L [facility] Chloride 103 98 - 107 mmol/L [facility] BUN 15 7 - 21.0 mg/dl [facility] Creatinine 0.86 0.5 - 1.3 mg/dl [facility] Glucose 81 65 - 105 mg/dl [facility] CO2 30 22 - 30 mmol/L [facility] Calcium 9.3 8.5 - 10.1 mg/dl [facility] eGFR by MDRD >60 >60 mL/min/1.7 3m2 [facility] Comment eGFR [facility] Comment: The eGFR does not apply to patients who are younger than 18 or older than 70. Blood specimen (specimen) BLOOD SPECIMEN / Unknown 10/28/2011 8:30 AM LINING 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 10/28/2011 9:22 AM LINING 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 Emery Zepeda MD LAB - CHEMISTRY ORDLeidy DE GUZMAN Performing Organization Address City/[facility] Co de Phone Number [facility] [address] [place] [address] * CULTURE URINE COMPREHENSIVE (06/12/2011 10:00 AM CDT) Culture SEE NOTE [facility] ([facility]) Comment: CULTURE, URINE, SPECIAL MICRO NUMBER: [id number] TEST STATUS: FINAL SPECIMEN SOURCE: URINE (CATHETER COLLECTED) SPECIMEN QUALITY: ADEQUATE RESULT: No Growth NO COLLECTION DATE RECEIVED. WE HAVE USED THE DATE THE SPECIMEN WAS RECEIVED BY THIS LABORATORY THE COLLECTION DATE. IF THIS IS INCORRECT, PLEASE CONTACT CLIENT SERVICES. PHONE NUMBER: [phone] Test Performed at: [facility] [address] [id number] LUISA LAWRENCE DO Urine specimen (specimen) URINE SPECIMEN COLLECTION, CATHETERIZED / Unknown 06/12/2011 10:00 AM CDT 06/10/2011 1:12 AM CDT Narrative [facility] ([facility]) - 06/12/2011 10:00 AM CDT Preferred Lab:->[facility] Emery Zepeda MD LAB - MICROBIOLOGY O RDERABLES [facility] ([facility]) * URINALYSIS - POINT OF CARE (AMB) [facility] (08/29/1998 12:00 AM LINING 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) Glucose UA neg [facility] Bilirubin UA POCT neg [facility] Ketones UA POCT neg [facility] Specific [place] UA 1.010 [facility] Blood Urine POCT neg [facility] pH UA 5.0 [facility] Protein UA neg [facility] Urobilinogen UA neg [facility] Nitrite UA neg [facility] WBC UA neg [facility] Urine specimen (specimen) 08/29/1998 Emery Zepeda MD LAB - POINT OF CARE ORDERABLES [facility] Care Teams Strategic Partnership Representative Relationship Specialty Start Date End Date Shandra Ruffin, SIDE LASTER-COMMUNICATION MANAGER [address] [place] [address] PCP - General 04/02/22
--- OUTSIDE RECORDS SUMMARY | 2024-10-08 13:22 | XMS_ITS | Clinical Summary ---
Author Organization [facility] Address [address] [place] [address] Phone Care Team Providers Care Brick Washer Name Role Phone JAM MCDONNELL PA-C Primary Care Provider [phone] Reason for Visit and Chief Complaint HEART [...] apnea, unspecified, Supraventricular tachycardia, unspecified [facility] 11/14/2023 Last Documented On 4 12:05PM ; [facility] Medical History Includes: Medical History addressed [...] Diagnosis HEART CENTER CHECK UP [facility] 4 10:58AM 11:28AM Insurance Includes: Active Insurance Policies Plan Name Member ID Group # Subscriber Relationship Effect cyn Dates 1 - [employer] [id number] NIGHAT DELANEY Self Clinical Notes Includes: Clinical Notes from this encounter No Clinical Notes Recorded
--- OUTSIDE RECORDS SUMMARY | 2024-10-08 13:22 | XMS_ITS ---
Care Plan - [facility] Created on: October 08, 2024 NIGHAT DELANEY : 1960 Sex: Female Author Organization [facility] Address [address] [place] [address] Phone Care Team Providers Care Board Certified Family Physician Name Role Phone JAM MCDONNELL PA-C Primary Care Provider [phone]
--- OUTSIDE RECORDS SUMMARY | 2024-10-08 13:22 | XMS_ITS | Data Portability ---
Author Organization [facility] Address [address] [place] [address] Care Team Providers Care Picker Operator Name Role Phone JAM LEDEZMA Primary Care Provider Assessment No assessment recorded. Plan of Treatment Reminders Order Date Submit Date Provider Last Modified By Organization Details Last Modified Time Details Appointments None recorde d. Lab PTH (parath yroid hormone ), intact + calcium , serum or plasma 2019 020 hspraggs [facility], [address] [place] [address], [address], [place], [address], 0 15:26:23 unliste d lab - complia nce drug analysi s, ur 2019 020 REUBEN [facility], [address] [facility], [address], [place], [address], 0 15:09:11 PTH (parath yroid hormone ), intact + calcium , serum or plasma 2019 020 bbertoglioma [facility], [address] [facility], [address], [place], [address], 0 18:10:55 Referral oncolog ist referra l - ANABEL 2019 020 tima Rivero MD, 4 [facility] , [address], [address], 0 11:06:22 dermato logist referra l 2019 ssander Not available 0 14:26:11 orthope dic referra l 2019 ssander [facility] Dept Of Orthopedics, [address] [facility], [place], [address], 0 14:14:57 Procedures None recorde d. Surgeries None recorde d. Imaging XR, lumbar spine 2019 REUBEN [facility] ([facility]) Scheduling, [address] [facility], [place], [address], 0 14:17:01 CT, lower leg, w/ contras t 2019 [facility] (Scheduling), [address] [facility], [place], [address], 0 15:02:33 NM, bone scan 2019 bbertoglioma [place] [facility] (Radiology), [address] [facility] , [place], [address], 0 15:52:19 Medication Orders gabapen tin 100 mg capsule 2019 INTERFACE [facility] #[id number], [address], [place], [place], [id number], 0 12:02:47 calcito marlo (salmon ) 200 unit/ac tuation nasal spray 2019 020 INTERFACE [facility] #[id number], [address], [place], [place], [id number], 0 15:02:19 acetami nophen 300 mg-code ine 30 mg tablet 2019 020 dturnerma [id number], [address], [place], [place], [id number], 1 17:09:49 Patient TargetsNo targets recorded. Patient Instructions Encounter Date Encounter Id Patient Instructions Last Modified By Organization Details Last Modified Time 01/30/2020 [id number] osteoporosis: care instructions [email or web address] Not available 01/30/2020 15:02:14 Reason for Referral Plate [place] Hand Referral for C omplaining of a rash Referring Physician: Jam Ledezma [facility], Encounter Date: 02/20/2020 ANABEL Referring Physician: Jam Ledezma [facility], Encounter Date: 02/20/2020 Orthopedic Referral for Path ological fracture of right tibia Referring Physician: Jam Ledezma [facility], Encounter Date: 04/22/2020 Results Created Date Observation Date Name Description Value Unit Range Abnormal Flag Note LastModifiedBy Organization Detail LastModifiedTime 12/27/19 20 12/28/2019 CMP, serum or plasm a glucose 91 mg/dL 65-99 Not Available [facility] ([facility]) [address] [place], [address], 12/28/2019 07:08:47 12/27/1912/28/2019 CMP, serum or plasm a BUN 15 mg/dL 6-24 Not Available [facility] ([facility]) [address] [place], [address], 12/28/2019 07:08:47 12/27/1912/28/2019 CMP, serum or plasm a creatinine 0.80 mg/dL 0.57-1 .00 Not Available [facility] ([facility]) [address] [place], [address], 12/28/2019 07:08:47 12/27/1912/28/2019 CMP, serum or plasm a eGFR if nonafricn AM 82 mL/mi n/1.7 3 >59 Not Available [facility] ([facility]) [address] [place], [address], 12/28/2019 07:08:47 12/27/1912/2712/28/2019 CMP, serum or plasm a eGFR if africn AM 95 mL/mi n/1.7 3 >59 Not Available [facility] ([facility]) [address] [facility] [place], [address], 12/28/2019 07:08:47 12/27/19 20 12/28/2019 CMP, serum or plasm a BUN/creatini ne ratio 19 9-23 Not Available [facility]) [address] [facility] [place], [address], 12/28/2019 07:08:47 12/27/1912/28/2019 CMP, serum or plasm a sodium 138 mmol/ L 134-14 4 Not Available [facility] ([facility]) [address] [place], [address], 12/28/2019 07:08:47 12/27/19 20 12/28/2019 CMP, serum or plasm a potassium 4.2 mmol/ L 3.5-5. 2 Not Available [facility] ([facility]) [address] [place], [address], 12/28/2019 07:08:47 12/27/19 20 12/28/2019 CMP, serum or plasm a chloride 98 mmol/ L 96-106 Not Available [facility] ([facility]) [address] [place], [address], 12/28/2019 07:08:47 12/27/1912/28/2019 CMP, serum or plasm a carbon dioxide, total 23 mmol/ L 20-29 Not Available [facility] ([facility]) [address] [place], [address], 12/28/2019 07:08:47 12/27/1912/28/2019 CMP, serum or plasm a calcium 10.1 mg/dL 8.7-10 .2 Not Available [facility] ([facility]) [address] [place], [address], 12/28/2019 07:08:47 12/27/19 20 12/28/2019 CMP, serum or plasm a protein, total 7.3 g/dL 6.0-8. 5 Not Available [facility] ([facility]) [address] [place], [address], 12/28/2019 07:08:47 12/27/1912/28/2019 CMP, serum or plasm a albumin 4.8 g/dL 3.8-4. 9 Not Available [facility] ([facility]) [address] [place], [address], 12/28/2019 07:08:47 12/27/1912/28/2019 CMP, serum or plasm a globulin, total 2.5 g/dL 1.5-4. 5 Not Available [facility] ([facility]) [address] [place], [address], 12/28/2019 07:08:47 12/27/1912/28/2019 CMP, serum or plasm a A/G ratio 1.9 1.2-2. 2 Not Available [facility] ([facility]) [address] [place], [address], 12/28/2019 07:08:47 12/27/1912/28/2019 CMP, serum or plasm a bilirubin, total 0.4 mg/dL 0.0-1. 2 Not Available [facility] ([facility]) [address] [place], [address], 12/28/2019 07:08:47 12/27/1912/28/2019 CMP, serum or plasm a alkaline phosphatase 114 IU/L 39-117 Not Available [facility] [address] [place], [address], 12/28/2019 07:08:47 12/27/1912/28/2019 CMP, serum or plasm a AST (SGOT) 40 IU/L 0-40 Not Available [facility] ([facility]) [address], [place], [address], 12/28/2019 07:08:47 12/27/1912/28/2019 CMP, serum or plasm a ALT (SGPT) 29 IU/L 0-32 Not Available [facility] ([facility]) [address] [facility], [place], [address], 12/28/2019 07:08:47 12/27/19 20 12/28/2019 vitam in D, 25-hy droxy , total , serum vitamin D, 25-hydroxy 34.2 NG/mL 30.0-1 00.0 Vitam in D defic iency has been defin ed by the Insti tute of [facility] ine and an Endoc rine Socie ty pract ice guide line as a level of serum 25-OH vitam in D less than 20 ng/mL (1,2) . The Endoc rine Socie ty went on to furth er defin e vitam in D insuf ficie ncy as a level betwe en 21 and 29 ng/mL (2). 1. IOM (Inst it[facility] ine). 2010. Melany ry refer ence kristina es for calci um and D. Zackary baum [place]: The [facility] Press . 2. Patricia valdez MF, Jluis albert [place], Francisco off-F errar i GARCIA, et al. Evalu ation , treat ment, and preve ntion of vitam in D defic iency : an Endoc rine Socie ty clini tessie pract ice guide line. JCEM. 2010; 96(7) :1911 -30. Not Available [facility] ([facility]) [address] [facility], [place], [address], 12/28/2019 07:08:48 02/11/2002/19/2020 drug scree n, urine [...] [place] [address] EXPEC JALYN ng/mg creat Morph ine 1924 EXPEC JALYN ng/mg creat Normo rphin e 572 EXPEC JALYN ng/mg creat [place] deine 1659 EXPEC JALYN ng/mg creat Sourc [...] expec jalyn metab olite of morph ine. [place] deine is an expec jalyn metab olite [...] Clobe tasol Ezeti mibe Fluti kelsie e Cataldo chlor othia zide (Samantha nopri l-HCT Z) Cataldo xychl oroqu ine Levot hyrox ine Lisin [...] ===== ===== ===== ===== === Not Available [facility] [address] [facility], [place], [address], 02/19/2020 15:09:11 02/11/20 20 02/19/2020 drug scree n, urine pdf . Not Available [employer] [address] [facility], [place], [address], 02/19/2020 15:09:11 04/28/20 20 04/28/2020 PTH (para [...] - 65 < 8.6 Not Available [facility] ([facility]) [address] [place], [address], 04/29/2020 17:08:21 04/28/20 20 04/29/2020 PTH (para thyro id hormo ne), intac t + calci um, serum or plasm a calcium TNP mg/dL No serum gel recei dillon. Not Available [facility] ([facility]) [address] [place], [address], 04/29/2020 17:08:21 04/28/20 20 04/29/2020 PTH (para thyro id hormo ne), intac t + calci um, serum or plasm a PTH, intact 63 pg/mL 15-65 Not Available [facility] ([facility]) [address] [place], [address], 04/29/2020 17:08:21 04/28/20 20 04/29/2020 speci men statu s repor t specimen status report TNP No serum gel recei dillon. TEST: 71521 6 Calci um Panel : 62863 1 Not Available [facility] ([facility]) [address] [place], [address], 04/29/2020 17:08:22 04/30/2005/01/2020 TSH + free T4, serum TSH 4.230 uIU/m L 0.450- 4.500 Not Available [facility] ([facility]) [address] [place], [address], 05/01/2020 08:17:01 04/30/2005/01/2020 TSH + free T4, serum T4,free(dire ct) 1.18 NG/dL 0.82-1 .77 Not Available [facility] ([facility]) [address] [place], [address], 05/01/2020 08:17:01 04/30/2005/01/2020 CBC w/ auto diff WBC 5.2 x10e3 /uL 3.4-10 .8 Not Available [facility] ([facility]) [address] [facility], [place], [address], 05/01/2020 08:17:02 04/30/2005/01/2020 CBC w/ auto diff RBC 4.16 x10e6 /uL 3.77-5 .28 Not Available [facility] ([facility]) [address] [facility], [place], [address], 05/01/2020 08:17:02 04/30/2005/01/2020 CBC w/ auto diff hemoglobin 13.9 g/dL 11.1-1 5.9 Not Available [facility] ([facility]) [address] [facility], [place], [address], 05/01/2020 08:17:02 04/30/2005/01/2020 CBC w/ auto diff hematocrit 39.7 % 34.0-4 6.6 Not Available [facility] ([facility]) [address] [facility], [place], [address], 05/01/2020 08:17:02 04/30/2005/01/2020 CBC w/ auto diff MCV 95 fL 79-97 Not Available [facility] ([facility]) [address] [place], [address], 05/01/2020 08:17:02 04/30/2005/01/2020 CBC w/ auto diff MCH 33.4 pg 26.6-3 3.0 above high normal Not Available [facility] ([facility]) [address] [place], [address], 05/01/2020 08:17:02 04/30/2005/01/2020 CBC w/ auto diff MCHC 35.0 g/dL 31.5-3 5.7 Not Available [facility] ([facility]) [address] [facility], [place], [address], 05/01/2020 08:17:02 04/30/2005/01/2020 CBC w/ auto diff RDW 13.4 % 11.7-1 5.4 Not Available [facility] ([facility]) [address] [facility], [place], [address], 05/01/2020 08:17:02 04/30/2005/01/2020 CBC w/ auto diff platelets 296 x10e3 /uL 150-45 0 Not Available [facility] ([facility]) [address] [facility], [place], [address], 05/01/2020 08:17:02 04/30/2005/01/2020 CBC w/ auto diff neutrophils 72 % not estab. Not Available [facility] ([facility]) [address] [facility], [place], [address], 05/01/2020 08:17:02 04/30/2005/01/2020 CBC w/ auto diff lymphs 14 % not estab. Not Available [facility] ([facility]) [address] [facility], [place], [address], 05/01/2020 08:17:02 04/30/2005/01/2020 CBC w/ auto diff monocytes 7 % not estab. Not Available [facility] ([facility]) [address] [facility], [place], [address], 05/01/2020 08:17:02 04/30/2005/01/2020 CBC w/ auto diff eos 4 % not estab. Not Available [facility] ([facility]) [address] [facility], [place], [address], 05/01/2020 08:17:02 04/30/2005/01/2020 CBC w/ auto diff basos 2 % not estab. Not Available [facility] ([facility]) [address] [facility], [place], [address], 05/01/2020 08:17:02 04/30/2005/01/2020 CBC w/ auto diff immature cells WIRELESS CONSULTANT Not Available [facility] ([facility]) [address] [place], [address], 05/01/2020 08:17:02 04/30/2005/01/2020 CBC w/ auto diff neutrophils (absolute) 3.8 x10e3 /uL 1.4-7. 0 Not Available [facility] ([facility]) [address] [place], [address], 05/01/2020 08:17:02 04/30/2005/01/2020 CBC w/ auto diff lymphs (absolute) 0.7 x10e3 /uL 0.7-3. 1 Not Available [facility] ([facility]) [address] [place], [address], 05/01/2020 08:17:02 04/30/2005/01/2020 CBC w/ auto diff monocytes(ab solute) 0.4 x10e3 /uL 0.1-0. 9 Not Available [facility] ([facility]) [address] [place], [address], 05/01/2020 08:17:02 04/30/2005/01/2020 CBC w/ auto diff eos (absolute) 0.2 x10e3 /uL 0.0-0. 4 Not Available [facility] ([facility]) [address] [place], [address], 05/01/2020 08:17:02 04/30/2005/01/2020 CBC w/ auto diff baso (absolute) 0.1 x10e3 /uL 0.0-0. 2 Not Available [facility] ([facility]) [address] [place], [address], 05/01/2020 08:17:02 04/30/2005/01/2020 CBC w/ auto diff immature granulocytes 1 % not estab. Not Available [facility] ([facility]) [address] [facility] [place], [address], 05/01/2020 08:17:02 04/30/2005/01/2020 CBC w/ auto diff immature grans (abs) 0.0 x10e3 /uL 0.0-0. 1 Not Available [facility] ([facility]) [address] [facility], [place], [address], 05/01/2020 08:17:02 04/30/2005/01/2020 CBC w/ auto diff NRBC WIRELESS CONSULTANT Not Available [facility] ([facility]) [address] [facility] [place], [address], 05/01/2020 08:17:02 04/30/2005/01/2020 CBC w/ auto diff hematology comments: WIRELESS CONSULTANT Not Available [facility] ([facility]) [address] [facility], [place], [address], 05/01/2020 08:17:02 04/30/2005/01/2020 CMP, serum or plasm a glucose 109 mg/dL 65-99 above high normal Not Available [facility] ([facility]) [address] [place], [address], 05/01/2020 08:17:03 04/30/2005/01/2020 CMP, serum or plasm a BUN 12 mg/dL 6-24 Not Available [facility] ([facility]) [address] [place], [address], 05/01/2020 08:17:03 04/30/2005/01/2020 CMP, serum or plasm a creatinine 0.65 mg/dL 0.57-1 .00 Not Available [facility] ([facility]) [address] [place], [address], 05/01/2020 08:17:03 04/30/2005/01/2020 CMP, serum or plasm a eGFR if nonafricn AM 99 mL/mi n/1.7 3 >59 Not Available [facility] ([facility]) [address] [facility] [place], [address], 05/01/2020 08:17:03 04/30/20 20 05/01/2020 CMP, serum or plasm a eGFR if africn AM 114 mL/mi n/1.7 3 >59 Not Available [facility] ([facility]) [address] [facility] [place], [address], 05/01/2020 08:17:03 04/30/20 20 05/01/2020 CMP, serum or plasm a BUN/creatini ne ratio 18 9-23 Not Available [facility] [address] [facility] [place], [address], 05/01/2020 08:17:03 04/30/2005/01/2020 CMP, serum or plasm a sodium 139 mmol/ L 134-14 4 Not Available [facility] ([facility]) [address] [facility] [place], [address], 05/01/2020 08:17:03 04/30/2005/01/2020 CMP, serum or plasm a potassium 4.4 mmol/ L 3.5-5. 2 Not Available [facility] ([facility]) [address] [facility] [place], [address], 05/01/2020 08:17:03 04/30/2005/01/2020 CMP, serum or plasm a chloride 96 mmol/ L 96-106 Not Available [facility] ([facility]) [address] [facility] [place], [address], 05/01/2020 08:17:03 04/30/2005/01/2020 CMP, serum or plasm a carbon dioxide, total 27 mmol/ L 20-29 Not Available [facility] ([facility]) [address] [facility] [place], [address], 05/01/2020 08:17:03 04/30/2005/01/2020 CMP, serum or plasm a calcium 10.0 mg/dL 8.7-10 .2 Not Available [facility] ([facility]) [address] [place], [address], 05/01/2020 08:17:03 04/30/2005/01/2020 CMP, serum or plasm a protein, total 7.0 g/dL 6.0-8. 5 Not Available [facility] ([facility]) [address] [place], [address], 05/01/2020 08:17:03 04/30/2005/01/2020 CMP, serum or plasm a albumin 4.6 g/dL 3.8-4. 9 Not Available [facility] ([facility]) [address] [place], [address], 05/01/2020 08:17:03 04/30/2005/01/2020 CMP, serum or plasm a globulin, total 2.4 g/dL 1.5-4. 5 Not Available [facility] ([facility]) [address] [place], [address], 05/01/2020 08:17:03 04/30/2005/01/2020 CMP, serum or plasm a A/G ratio 1.9 1.2-2. 2 Not Available [facility] ([facility]) [address] [place], [address], 05/01/2020 08:17:03 04/30/2005/01/2020 CMP, serum or plasm a bilirubin, total 0.5 mg/dL 0.0-1. 2 Not Available [facility] ([facility]) [address] [place], [address], 05/01/2020 08:17:03 04/30/2005/01/2020 CMP, serum or plasm a alkaline phosphatase 231 IU/L 39-117 above high normal Not Available [facility] ([facility]) [address] [facility], [place], [address], 05/01/2020 08:17:03 04/30/20 20 05/01/2020 CMP, serum or plasm a AST (SGOT) 83 IU/L 0-40 above high normal Not Available [facility] ([facility]) [address] [facility], [place], [address], 05/01/2020 08:17:03 04/30/20 20 05/01/2020 CMP, serum or plasm a ALT (SGPT) 63 IU/L 0-32 above high normal Not Available [facility] ([facility] [address] [facility], [place], [address], 05/01/2020 08:17:03 04/30/20 20 04/30/2020 urina lysis , dipst ick Leukocytes Negati ve Not Available In-Office Order Internal Use Only DO Not Attach Compendium DO Not Attach Compendium, Do Not Delete/merge, [id number] 04/30/2020 11:03:06 04/30/2004/30/2020 urina lysis , dipst ick Nitrite negati ve Not Available In-Office Order Internal Use Only DO Not Attach Compendium DO Not Attach Compendium, Do Not Delete/merge, [id number] 04/30/2020 11:03:06 04/30/2004/30/2020 urina lysis , dipst ick Urobilinogen .2 Not Available In-Of fice Order Internal Use Only DO Not Attach Compendium DO Not Attach Compendium, Do Not Delete/merge, [id number] 04/30/2020 11:03:06 04/30/2004/30/2020 urina lysis , dipst ick Protein Negati ve Not Available In-Office Order Internal Use Only DO Not Attach Compendium DO Not Attach Compendium, Do Not Delete/merge, [id number] 04/30/2020 11:03:06 04/30/20 20 04/30/2020 urina lysis , dipst ick pH 6.5 Not Available In-Office Order Internal Use Only DO Not Attach Compendium DO Not Attach Compendium, Do Not Delete/merge, [id number] 04/30/2020 11:03:06 04/30/20 20 04/30/2020 urina lysis , dipst ick Blood Negati ve Not Available In-Office Order Internal Use Only DO Not Attach Compendium DO Not Attach Compendium, Do Not Delete/merge, [id number] 04/30/2020 11:03:06 04/30/20 20 04/30/2020 urina lysis , dipst ick Specific [place] 1.020 Not Available In-Off ice Order Internal [...] r spine No observ ation record ed. [address], [place], [address], 02/07/2020 17:22:18 02/19/20 20 02/19/2020 NM, bone scan No observ ation record ed. ssander [facility] [address] [facility] [place], [address], 02/19/2020 17:52:46 03/25/20 20 03/25/2020 bone densi ty No observ ation record ed. [facility] [address] [facility] [place], [address], 03/28/2020 12:17:03 09/12/19 21 09/10/2020 cardi ac stres s test No observ ation record ed. [facility] [address], [place], [address], 09/12/2020 16:33:08 12/18/19 21 12/09/2020 pulmo nary funct ion test* No observ ation record ed. [facility] [address], [place], [address], 12/17/2020 15:14:10 01/03/20 21 01/02/2021 US, duple x, renal arter y No observ ation record ed. [facility] [address], [place], [address], 01/02/2021 14:47:22 01/03/20 21 01/02/2021 stres s echoc ardio gram No observ ation record ed. [facility] [address], [place], [address], 01/02/2021 14:47:41 11/28/19 24 11/25/2023 US, echoc ardio gram, trans esoph ageal No observ ation record ed. [facility] [address] [facility] [address], [place], [address], 12/08/2023 11:32:40 01/16/20 24 11/23/2023 CT, angio gram, chest , w/ contr ast No observ ation record ed. mmetias [address] [place], [address], 01/16/2024 15:25:06 Result Notes None recorded. Problems Name Problem SNOMED Code Status Onset Date Resolution Date Notes Provider Name and Address Organization Details Recorded Time Drug therapy finding 054690613 Active 2015 CHIO Niño, [place] - [facility] 0 11:49:27 Enzyme level - finding 042789481 Active 2017 CHIO Niño[place] [facility] 0 11:49:27 Fibromyalgia 529059063 Active 2011 Kallie Sloan [place], [place] [facility] 0 11:49:27 Hypertensive disorder 25008261 Active 2012 Kallie Solan [place] [facility] 0 11:49:27 Osteopenia 727562247 Active 2011 Kallie S[place] [facility] 0 11:49:27 Rheumatoid arthritis 50189018 Active 2017 Kallie S[place] [facility] 0 11:49:27 Problem Notes None recorded. Procedures Surgical History Date Name Laterality Status Provider Name and Address Organization Details Recorded Time hysterectomy completed Anabela Blanc [place] - [facility] 09/06/2019 12:01:29 Imaging Results Imaging Date Name Status LastModified by Organization Details LastModified Time 01/28/2020 XR, lumbar spine completed milly Pinckard [address] [place], [address], 02/07/2020 17:22:18 02/19/2020 [facility] [address] [place], [address], 02/19/2020 17:52:46 03/25/2020 bone density completed [facility] [address] [place], [address], 03/28/2020 12:17:03 09/10/2020 cardiac stress test completed [facility] ([facility]) [address] [facility], [place], [address], 09/12/2020 16:33:08 12/09/2020 pulmonary function test* completed [facility] ([facility] [address] [facility], [place], [address], 12/17/2020 15:14:10 01/02/2021 US, duplex, renal artery completed [facility] [address] [facility], [place], [address], 01/02/2021 14:47:22 01/02/2021 stress echocardiogram completed [facility] [address] [facility], [place], [address], 01/02/2021 14:47:41 11/25/2023 US, echocardiogram, transesophageal completed [facility] [address] [facility] [place], [address], 12/08/2023 11:32:40 11/23/2023 CT, angiogram, chest, w/ contrast completed [facility] [address] [facility] [place], [address], 01/16/2024 15:25:06 Procedure Notes None recorded. Medical Equipment None Reported. Allergies Allergen ID Allergen Name Allergen Category Reaction Reaction Severity Criticality Documentation Date Start Date Code Code System Note Provider Name and Address Organization Details Recorded Time 005949 Substance with sulfonami de structure and antibacte rial mechanism of action (substanc e) medicatio n hives Not available Not available 09/06/2019 12695 8003 SNOMED Not Available Not Available Not Available 527789 Cipro medicatio n Not available Not available Not available 09/06/201918786 3 RxNorm Not Available Not Available Not Available 419062 ciproflox acin medicatio n myalgias (muscle pain) [...] DateTime 01/25/2020 157.48 cm Kallie Sloan MA [facility] 01/25/20 20 11:49:06 Date Recorded Body height Provider Name an d Address Organization Details Last Updated DateTime 01/30/2020 157.48 cm Anabela Blanc MA [facility] 01/30/2020 14:32:47 Date Recorded Body height Body mass index (BMI) Body weight Body temperature Oxygen saturation Oxygen saturation in Arterial blood by Pulse oximetry Heart rate Systolic blood pressure Diastolic blood pressure Provider Name and Address Organization Details Last Updated DateTime 0 157.48 cm 31.1 kg/m2 39639.7 g 98.1 [degF] 93 % 93 % 83 /min 108 mm[Hg] 82 mm[Hg] Anabela Blanc MA [facility] 0 10:40:52 Date Recorded Body height Body mass index (BMI) Body weight Body temperature Oxygen saturation Oxygen saturation in Arterial blood by Pulse oximetry Heart rate Systolic blood pressure Diastolic blood pressure Provider Name and Address Organization Details Last Updated DateTime 0 157.48 cm 31.3 kg/m2 96776 g 98 [degF] 98 % 98 % 80 /min 142 mm[Hg] 90 mm[Hg] Kallie Sloan MA [facility] 0 14:59:34 Social History Question Answer Notes LastModified by Organizat ion Details LastModified Time Tobacco Smoking Status Former Smoker 2012 Anabela Blanc MA null, [facility] 09/06/2019 12:01:14 In The 14 Days Before Symptom Onset, Have You Had Close Contact With A Laboratory-confir med COVID-19 While That Case Was Ill? No Information not available 11/26/2019 If Patient Spent Time In [facility] - Does The Patient Live In [facility]? No Information not available 11/26/2019 In The 14 Days Before Symptom Onset, Have You Had Close Contact With A Person Who Is Under Investigation For COVID-19 While That Person Was Ill? No Information not available 11/26/2019 In The 14 Days Before Symptom Onset, Did The Patient Spend Time In [facility]? No Information not available 11/26/2019 Have You [...] Eating Disorder N Anemia N Heart Attack (MT) N Anxiety Disorder Y Diabetes N Muscle, [...] SNOMED-CT Code Diagnosis ICD10 Code Diagnosis Note [id number] Anabela Blanc MA [facility] [address] [place] [address] 09/06/2019 11:41:44 09/07/2019 16:55:26 Chronic depression 898267304 F34.1 Long-term drug therapy 839614256 Z79.899 Essential hypertension 56020367 I10 [id number] Jam Ledezma PA-C [facility] [address] [place] [address] 09/13/2019 11:39:42 09/13/2019 12:10:30 Essential hypertension 39613999 I10 [id number] Jam Ledezma PA-C [facility] [address] [place] [address] 11/26/2019 10:49:30 11/26/2019 12:28:39 Essential hypertension 38160146 I10 Mitral valve prolapse 40 6116028 I34.1 History of transient ischemic attack 761660392 Z86.73 Seasonal a llergic rhinitis 340372629 J30.2 [id number] Jam Ledezma PA-C [facility] [address] [place] [address] 12/10/2019 10:48:06 12/12/2019 11:23:50 Essential hypertension 26189891 I10 Chronic depression 91335 0009 F34.1 Nausea and vomiting 1692 1999 R11.2 [id number] Jam Ledezma PA-C [facility] [address] [place] [address] 12/11/2019 13:09:52 12/12/2019 11:45:12 Mixed hyperlipidemia 598319621 E78.2 [id number] Jam eLdezma PA-C [facility] [address] [place] [address] 12/27/2019 11:02:54 12/28/2019 08:34:57 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 Seasonal a llergic rhinitis 732419951 J30.2 [id number] Jam Ledezma PA-C [facility] [address] [place] [address] 01/25/2020 10:10:00 01/28/2020 08:04:28 Lumbar radiculopathy 468823028 M54.16 [id number] KELLEN Liao [facility] [address] [place] [address] 01/30/2020 11:07:31 01/31/2020 07:58:24 Idiopathic hypercalcemia 149054668 E83.52 Stress fra cture of tibia 620125957 M84.361A Osteoporosis 90027688 M8 1.0 [id number] Anabela Blanc MA [facility] [address] [place] [address] 02/11/2020 10:34:29 02/11/2020 15:10:24 Pain in right lower limb 756918347 M79.604 Long-term drug therapy 767915748 Z79.727 [id number] Jam Ledezma PA-C [facility] [address] [place] [address] 02/20/2020 14:44:57 02/20/2020 15:38:07 Pathological fracture of right tibia 0094518303 6008567 M84.461G Complaining of a rash 16 7897373 R21 [id number] Jam Ledezma PA-C [facility] [address] [place] [address] 04/22/2020 09:33:20 04/23/2020 12:40:11 Osteopenia 439598976 M85.88 Pathologic al fracture of right tibia 6905057442 9284970 M84.461G Health Concerns Section Related Observation LastModified by Organization Detai ls LastModified Time None Recorded Concern Status LastModified by Organization Details LastModified Time None Recorded Advance Directives Directive None Recorded Payers Encounter Date Sequence Insurance Name Policy Number Policy Bright Covered Member ID Bright Member ID Guarantor Name 01/25/2020 1 [facility] PRIOR TO 02/26/2021 (MEDICAID REPLACEMENT - HMO) Antoinette aD Silva [id number] Antoinette Da Silva 01/30/2020 1 [facility] PRIOR [facility] 02/26/2021 (MEDICAID REPLACEMENT - HMO) Antoinette Da Silva [id number] Antoinette Da Silva 02/11/2020 1 [facility] PRIOR TO 02/26/2021 (MEDICAID REPLACEMENT - HMO) Antoinette Da Silva [id number] Antoinette Da Silva 02/20/2020 1 [facility] PRIOR TO 02/26/2021 (MEDICAID REPLACEMENT - HMO) Antoinette Da Silva [id number] Antoinette Da Silva 04/22/2020 1 [facility] PRIOR TO 02/26/2021 (MEDICAID REPLACEMENT - HMO) Antoinette Da Silva [id number] Antoinette Da Silva Notes Date Note Type [...] osteoporosis Jam Ledezma PA-C Attn: [address]ing[address] [place], [address], [facility] 01/25/2020 12:05:40 01/30/2020 text/html questions re bpressure...162/106 [...] osteoporosis... Jam Ledezma PA-C Attn: [address] [place], [address], [facility] 01/30/2020 15:08:21 02/11/2020 text/html started january 17..pain in medial lower rt leg..no known injury. went to ER xrays were done. findings of an old healed fracture that the patient denies ever having broken. pain has not improved may have worsened. Anabela Blanc MA [facility], [facility] 02/11/2020 11:25:00 02/20/2020 text/html bone scan reviewed..rib with uptake and rt tib fib with intense uptake they say likely posttraumatic but she denies injury. now skin on forearms are red and that is pruritic not painful Jam Ledezma PA-C Attn: [address]ing[address] [place], [address], [facility] 02/20/2020 15:32:42 04/22/2020 text/html follow up on leg fractures that dont belong... Jam Ledezma PA-C Attn: [address]ing[address] [facility], [place], [address], [facility] 04/22/2020 17:56:09 OBGyn Episode No OBEpisode recorded.
--- OUTSIDE RECORDS SUMMARY | 2024-10-08 13:22 | XMS_ITS ---
Author Organization [facility] Address [address] [place] [address] Phone Care Team Providers Care Water Quality Specialist Name Role Phone JAM MCDONNELL PA-C Primary Care Provider [phone] Plan of Treatment No Plan of Treatment [...] On 07/08/2010 5:57PM By ALVIN BASS ; [facility] Premarin 1.25 MG OR TABS 09/02/2009 - 08/28/2010 Provi anastasia: Diagnosis: Last Documented On 11/11/2009 9:36AM By BONNIE MORALES ; [facility] Premarin 1.25 MG OR TABS 07/23/2008 - 07/18/2009 Provi anastasia: Diagnosis: Last Documented On 11/11/2009 9:37AM By BONNIE MORALES ; [facility] Amoxicillin 500 MG OR TABS 07/03/2007 - 07/13/2007 Pro vider: Diagnosis: Last Documented On 11/11/2009 9:38AM By BONNIE MORALES ; [facility] Premarin 1.25 MG OR TABS 07/05/2006 - 06/30/2007 Provi anastasia: Diagnosis: Last Documented On 11/11/2009 9:39AM By BONNIE MORALES ; [facility] Premarin 1.25 MG OR TABS 08/27/2005 - 07/23/2006 Provi anastasia: Diagnosis: Last Documented On 11/11/2009 9:40AM By BONNIE MORALES ; [facility] Medications Administered Includes: Administered Medications in patient's chart No Administered Medications Recorded Results Includes: Results from 10/08/2023 through 10/08/2024 No Results Recorded For Specified Dates History of Present Illness History of Present Illness not supported for this document type No History of Present Illness Recorded Social History Description Last Updated 11/11/2009 Last Documented On 0 9:43AM ; [facility] Exercise frequency was three times/week 11/11/2009 Last Documented On 0 9:43AM ; [facility] Exercising regularly 11/11/2009 Last Documented On 0 9:43AM ; [facility] Sexually active 11/11/2009 Last Documented On 0 9:43AM ; [facility] Sexually active with 1 partners in the l ast year 11/11/2009 Last Documented On 0 9:43AM ; [facility] Smoking Status Unknown Procedures and Surgical History Includes: Procedures from 10/08/2023 through 10/08/2024 Procedures Code Diagnosis Performing Provider Service Location Service Date CLINIC FACILITY FEE (Signi/Sep Eval & Man) G0463 Nonrheumatic mitral (valve) insufficiency, Paroxysmal atrial fibrillation, Obstructive sleep apnea (adult) (pediatric), Essential (primary) hypertension COUNT INCLUDES [facility] 12/13/2023 Last Documented On 4 2:24PM ; [facility] CLINIC FACILITY FEE (Signi/Sep Eval & Man) 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, Sleep apnea, unspecified, Supraventricular tachycardia, unspecified COUNT INCLUDES [facility] 11/14/2023 Last Documented On 4 12:05PM ; [facility] Medical History Includes: Medical History in patient's chart Description Last Updated HYSTERECTOMY ~BTL 11/11/2009 Last Documented On 0 9:43AM ; [facility] 2 living children 11/11/2009 Last Documented On 0 9:43AM ; [facility] A mammogram was performed 11/11/2009 Last Documented On 0 9:43AM ; [facility] A Pap smear was performed 11/11/2009 Last Documented On 0 9:43AM ; [facility] weight: was 7.4 lbs 11/11/2009 Last Documented On 0 9:43AM ; [facility] Breast problems 11/11/2009 Last Documented On 0 9:43AM ; [facility] Delivery date 1983 11/11/2009 Last Documented On 0 9:43AM ; [facility] Duration of labor: was six hr 11/11/2009 Last Documented On 0 9:43AM ; [facility] Gestational age: was 40 weeks 11/11/2009 Last Documented On 0 9:43AM ; [facility] 2 11/11/2009 Last Documented On 0 9:43AM ; [facility] History of the 2nd : 11/11/2009 Last Documented On 0 9:43AM ; [facility] Last mammogram date: 07/19/08 11/11/2009 Last Documented On 0 9:43AM ; [facility] Last pap smear date 200711/11/2009 Last Documented On 0 9:43AM ; [facility] Oral contraceptives 11/11/2009 Last Documented On 0 9:43AM ; [facility] Status post tubal ligation 11/11/2009 Last Documented On 0 9:43AM ; [facility] Family History Includes: Family History in patient's chart Description Last Updated Family history of Cancer 11/11/2009 Last Documented On 0 9:43AM ; [facility] Family history of thyroid disease 2009 Last Documented On 0 9:43AM ; [facility] Family medical history of high blood pre ssure 11/11/2009 Last Documented On 0 9:43AM ; [facility] Review of Systems Review of Systems not supported for this document type No Review of Systems Recorded Mental Status No Mental Status Recorded Functional Status No Functional Status Recorded Physical Exam Physical Exam not supported for this document type No Physical Exam Recorded Allergies Includes: Active, inactive, and resolved Allergies No Known Allergies Encounters Includes: Encounters from 10/08/2023 through 10/08/2024 Encounter Provider Location Date Check-In Time Check- Out Time Diagnosis HOSPITAL FOLLOW UP EXAM TIFFANY SAUCEDO ANP [facility]- 4 12:43PM 1:47PM [facility] CHECK UP TIFFANY HOWARD [facility]- 4 10:58AM 11:28AM Insurance Includes: Active Insurance Policies Plan Name Member ID Group # Subscriber Relationship Effect cyn Dates 1 - [employer]AGE [id number] NIGHAT Guevara Clinical Notes Includes: Signed Clinical Notes starting from 09/17/2022 No Clinical Notes Recorded
--- OUTSIDE RECORDS SUMMARY | 2024-10-08 13:22 | XMS_ITS | Clinical Summary ---
Author Organization [facility] Address [address] [place] [address] Care Team Providers Care Test Department Helper Name Role Phone Yg Lee MD Primary Care Provider [phone] Allergies Active Allergy Reactions Criticality Noted Date [...] (Dexilant) 60 mg Delayed Release capsule Lot: [id number] Ex: 10/21 Qty: 8 5 Capsule Active [...] on 04/05/2024 fluticasone propionate (FLONASE) 50 mcg/spray [place], Suspension nasal inhaler USE 1 OR 2 [...] Active apixaban (ELIQUIS) 5 mg tablet Lot: [id number] ex: 05/2025 qty: 8 14 Tablet Active [...] t be different from the original. [facility] [id number] 09/01/22 Problem Noted Date Diagnosed Date Pulmonary [...] Encounters Date Type Department Care Team Description 10/05/[address] [place] [address] Yg Lee MD Needs Appointment 09/20/2024 External Device Data [facility] ABSTRACTION Provider, Abstract 09/19/[address] [place] [address] Yg Lee MD Essential hypertension, benign 09/11/2024 External Device Data [facility]CTION Provider, Abstract 08/21/[address] [place] [address] Provider, Abstract 08/16/[address] [place] [address] Yg Lee MD Other specified anxiety disorders 08/15/2024 Telephone [place] [address] [place] [phone] Yg Lee MD Provider Call 08/01/2024 Telephone [place] [address] [place] [address] Yg Lee MD Referral 07/31/2024 Telephone [place] [address] [place] [address] Yg Lee MD Results 07/31/2024 Orders Only [facility] [address] [place] [address] [place] [address] Gisselle Bell Hepatomegaly 07/24/2024 Telephone [facility] [address] [place] [address] Yg Lee MD Provider Call 07/19/2024 Telephone [facility] [address] [place] [address] Yg Lee MD Provider Call; Provider Call; Provider Call; Provider Call 07/14/2024 Refill [facility] [address] [place] [address] [place] [address] Yg Lee MD from Last 3 Months Immunizations Immunization Administration Dates Next Due (ADACEL/BOOSTRIX)(10 YR UP) TDAP VACCINE, 0.5ML, IM 06/15/2011 (PFIZER)(12 YR UP) COVID-19 VACCINE - EMERGENCY USE AUTHORIZATION, MRNA, [id number](PF) 30 MCG/0.3 ML IM SUSP 04/22/2021,04/01/2021 (PNEUMOVAX 23)(50 YRS UP) PN EUMOCOCCAL POLYSACCHARIDE (PPV23) 0.5 ML, IM 07/18/2017,06/15/2011 (PREVNAR 13)(6 WKS UP) PNEUM OCOCCAL CONJUGATE (PCV13) 0.5 ML, IM 10/20/2020 (PREVNAR 20)(6 WKS UP) PNEUM OCOCCAL CONJUGATE VACCINE 20-VALENT (PCV20), POLYSACCHARIDE [id number] CONJUGATE, ADJUVANT 0.5 ML (PF) IM 02/23/2023 [...] on file Legal Sex Female 6:04 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 Gender Identity Not on file Sexual Orientation [...] 04/05/2024 10:25 AM CDT Plan of Treatment Health Maintenance Due [...] 2024 , 08/14/2021, 07/17/2020, Additional history exists Medicare Advantage ([place]) Preventative Visit/Annual Wellness Visit 08/29/2024 09/01/2022, 10/20/2020, 10/21/2017, Additional history exists Preventative Visit- Commercial 08/29/2024 0 09/01/2022, 10/21/2017, 09/09/2016, Additional history exists BREAST CANCER SCREENING 05/16/2025 05/16/20 24, 10/08/2022, 10/08/2021, Additional history exists COLORECTAL CANCER SCREENING (AUTO ORDER) 04/22/2026 04/22/2016, 11/01/2011 COLORECTAL SCREENING 04/22/2026 04/22/2016, 11/01/2011, 11/01/2011 Colorectal Cancer Screening (AUTO ORDER) 04/22/2026 Colorectal Cancer Screening 04/22/2026 Pre-Diabetes and Diabetes Screening 06/15/2027 06/15/2024, 08/24/2023, 08/11/2021, Additional history exists Medical Devices Implanted Type Area Executive Officer Special Warfare Team Device Identifier Shelf Expiration Date Model / Serial / Lot Stent Pncrtc Frmn Flx 5fr 5cm 6552 - [id number] Implanted:Qty: 1 on 02/24/2018 by John White MD at [facility] Stent N/A: Pancreas [employer] [id number] 09/29/2022 6552 / / [id number] Procedures Procedure Name Priority Date/Time Associated [...] A1C 5.2 <5.7 % of total Hgb [facility] sheyla Santana Comment: For the purpose of screening for the presence of diabetes: <5.7% Consistent with the absence of diabetes 5.7-6.4% Consistent with increased risk for diabetes (prediabetes) > or =6.5% Consistent with diabetes This assay result is consistent with a decreased risk of diabetes. Currently, no consensus exists regarding use of hemoglobin A1c for diagnosis of diabetes in children. According to [place] Diabetes Association (ADA) guidelines, hemoglobin A1c <7.0% represents optimal control in non- diabetic patients. Different metrics may apply to specific patient populations. Standards of Medical Care in Diabetes(ADA). ESTIMATED AVERAGE GLUCOSE (MG/DL) 103 mg/dL DimdimRenee Santana ESTIMATED AVERAGE GLUCOSE (MMOL/L) 5.7 mmol/L DimdimRenee Santana Comment: FASTING:YES FASTING: YES Test [facility] [address] [place] [address] [facility] Blood 06/15/2024 9:16 AM CDT 06/15/2024 9:17 AM CDT us Yg Lee MD CHEMISTRY ORDERABLES Final Re sult [facility] [phone] [place] [address] [place] [address] * MAMMO 3D KIRILL SCREEN BILAT W OR WO CAD (05/16/2024 1:15 PM CDT) Anatomical Region Laterality Modality Breast Bilateral Mammography 05/16/2024 1:15 PM CDT Impressions 05/16/2024 2:36 PM CDT IMPRESSION: No mammographic evidence of malignancy in the bilateral breasts. Routine screening mammography is recommended in one year. OVERALL FINAL ASSESSMENT: BI-RADS CATEGORY 1 - Negative. DICTATION LOCATION: [facility] Narrative 05/16/2024 2:36 PM CDT EXAMINATION: BILATERAL SCREENING [...] BI-RADS CATEGORY 1 - Negative. DICTATION LOCATION: [facility] Yg Lee MD MAMMO ORDERABLES Final Result from Last 3 Months or Most Recently Relevant to Health Maintenance Insurance RX [employer] RX Member Subscriber Plan / Payer (Ef fective 2020-Present) Name:Antoinette Da Silva Relation to Subscriber:Self Name:nAtoinette Da Silva Payer ID:Not on file Type:RX Commercial Address: [place] MEDICARE Advance Directives For more information, please contact: [phone] Documents on File Type Date Recorded Patient Procurement Internship Expl anation Advance Directive Living Will 10/20/2020 [...] 12:41 PM 10/31/2015 7:49 PM Care Teams Test Department Helper Relationship Specialty Start Date End Date Yg Lee MD PCP - General Internal Medicine 12/20/18
--- OUTSIDE RECORDS SUMMARY | 2024-10-08 13:22 | XMS_ITS | Encounter Summary ---
Author Organization [facility] Healthcare Address [address] [place] [address] Care Team Providers Care Data Security Analyst Name Role Phone Yg Lee MD Primary Care Provider + Mitchell Zamarripa MD Unavailable [phone] Brit More NP Unavailable [phone] Cliff Ronquillo NP Unavailable [phone] Dick Aguilar Unavailable [phone] Gavin Sewell MD Unavailable [phone] Encounter Details Date Type Department Care Team (Late st Contact Info) Description 12/14/2021 Telephone [facility] [address] [place] [address] Fariha Hampton, RT Social History Tobacco Use Types Packs/Day Years Used Date Smoking Tobacco: Former Smokeless Tobacco: Never Alcohol Use Standard Drinks/Week Comments Yes 0 (1 standard drink = 0.6 oz pur e alcohol) occasional Comments No Sex and Gender Information Value Date Recorded Sex Assigned at Not on file Legal Sex Female 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 Gender Identity Not on file Sexual Orientation [...] COVID: Suspected 07/22/2024 07/22/2024 07/22/2024 9:25 AM MAINS AND SERVICE SUPERVISOR documented as of this encounter Care Teams Data Security Analyst Relationship Specialty Start Date End Date Yg Lee MD [address] [place] [address] PCP - General Internal Medicine 08/19/20 Mitchell Zamarripa MD [address] [place] [address] Referring Physician Rheumatology 03/11/22 Brit More NP [address] [place] [address] Nurse Practitioner Cardiovascular Disease 03/11/22 Cliff Ronquillo NP [address] [place] [address] Nurse Practitioner Nurse Practitioner 05/05/22 Dick Aguilar PA [address] [place] [address] Physician Automated Access Systems Technician Orthopedic Surgery 11/11/22 Gavin Sewell MD [address] [place] [address] Surgeon Orthopedic Surgery 12/24/22 documented as of this encounter
--- OUTSIDE RECORDS SUMMARY | 2024-10-08 13:23 | XMS_ITS | Encounter Summary ---
Author Organization [facility] Address [address] [place] [address] Care Team Providers Care Excel Analyst Name Role Phone Jose Cruz Ledezma Primary Care Provider [phone] Yg Lee MD Primary Care Provider + Mitchell Zamarripa MD Unavailable [phone] Brit More OCTAVE BOARD RACKER Unavailable [phone] Cliff Ronquillo NP Unavailable [phone] Dick Aguilar Unavailable [phone] Gavin Seewll MD Unavailable [phone] Reason for Visit * Reason Onset Date Comments Scheduling Appointments 03/24/2020 Called f or DEXA appointment reminder Encounter Details Date Type Department Care Team (Late st Contact Info) Description 03/24/2020 Telephone [facility] [address] [place] [address] [address] Hernandez RT Scheduling Appointments (Called for DEXA appointment reminder) Social History Tobacco Use Types Packs/Day Years Used Date Smoking Tobacco: Former Smokeless Tobacco: Never Alcohol Use Standard Drinks/Week Comments Yes 0 (1 standard drink = 0.6 oz pur e alcohol) occasional Comments No Sex and Gender Information Value Date Recorded Sex Assigned at Not on file 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 Gender Identity Not on file Sexual Orientation [...] COVID: Suspected 07/22/2024 07/22/2024 07/22/2024 9:25 AM FLATWORK IRONER documented as of this encounter Care Teams Excel Analyst Relationship Specialty Start Date End Date Jose Cruz Ledezma PA [address] [place] [address] PCP - General 01/24/20 08/18/20 Yg Lee MD [address] [place] [address] PCP - General Internal Medicine 08/19/20 Mitchell Zamarripa MD [address] [place] [address] Referring Physician Rheumatology 03/11/22 Brit More NP [address] [place] [address] Nurse Practitioner Cardiovascular Disease 03/11/22 Cliff Ronquillo NP [address] [place] [address] [address] [place] [address] Nurse Practitioner Nurse Practitioner 05/05/22 Dick Aguilar PA [address] [place] [address] [address] [place] [address] Physician Golf Club Repairer Orthopedic Surgery 11/11/22 Gavin Sewell MD [address] [place] [address] Surgeon Orthopedic Surgery 12/24/22 documented as of this encounter
--- OUTSIDE RECORDS SUMMARY | 2024-10-08 13:23 | XMS_ITS | Encounter Summary ---
Author Organization [facility] Address [address] [place] [address] Care Team Providers Care Nut Sorter Name Role Phone Yg Lee MD Primary Care Provider [phone] Shandra Ruffin APRN-[facility] Primary Care Provider Yg Lee MD Primary Care Provider [phone] Shandra Ruffin APRN-[facility] Primary Care Provider Yg Lee MD Primary Care Provider [phone] Shandra Ruffin APRN-[facility] Primary Care Provider Encounter Details Date Type Department Care Team (Late st Contact Info) Description 05/18/2019 Telephone [facility] [address] [place] [address] Mitchell Zamarripa MD [address] [place] [address] [place] [address] Social History Tobacco Use Types [...] a call. [place] Patient Call Back number: [phone]. documented in this encounter Plan of Treatment Not on file documented as of this encounter Visit Diagnoses Not on filedocumented in this encounter Care Teams Nut Sorter Relationship Specialty Start Date End Date Yg Lee MD [address] [place] [phone] PCP - General 10/28/11 05/23/19 Shandra Ruffin APRN-FACILITIES PAINTER [address] [place], [place] [phone] PCP - General 05/24/19 07/20/20 Yg Lee MD [address] [place], [place] [phone] PCP - General Internal Medicine 07/21/20 07/21/20 Shandra Ruffin APRN-FACILITIES PAINTER [address] [place], [place] [phone] PCP - General 07/22/20 11/15/21 Yg Lee MD [address] [place] [phone] PCP - General Internal Medicine 11/16/21 04/01/22 Shandra Ruffin APRN-FACILITIES PAINTER [address] [place], [place] [phone] PCP - General 04/02/22 documented as of this encounter
--- OUTSIDE RECORDS SUMMARY | 2024-10-08 13:23 | XMS_ITS | Clinical Summary ---
Author Organization [facility] Address [address] [place] [address] Phone Care Team Providers Care Urgent Care Nurse Practitioner Name Role Phone JAM MCDONNELL PA-C Primary Care Provider [phone] Reason for Visit and Chief Complaint HOSPITAL [...] (adult) (pediatric), Essential (primary) hypertension TIFFANY Chaudhari [facility] 12/13/2023 Last Documented On 4 2:24PM ; [facility] Medical [...] FOLLOW UP EXAM TIFFANY SAUCEDO [facility]- 4 12:43PM 1:47PM Insurance Includes: Active Insurance Policies Plan Name Member ID Group # Subscriber Relationship Effect cyn Dates 1 - [employer] [id number] NIGHAT DELANEY Self Clinical Notes Includes: Clinical Notes from this encounter No Clinical Notes Recorded
--- OUTSIDE RECORDS SUMMARY | 2024-10-08 13:23 | XMS_ITS | Clinical Summary ---
Author Organization [facility] Address [address] [place] [address] Care Team Providers Care Leather Cartridge Belt Maker Name Role Phone Mariah Adams MD Primary Care Provider + Mitchell Zamarripa MD Unavailable [phone] Brit More NP Unavailable [phone] Cliff Ronquillo NP Unavailable [phone] Dick Aguilar Unavailable [phone] Gavin Sewell MD Unavailable Allergies Active Allergy [...] 1 tablet (100 mcg total) by mouth drying machine operator package yarns before breakfast 1 Active celecoxib (CeleBREX) 100 [...] 08/14/2024 Assessment & Plan (08/14/2024 9:48 AM BATTERY BUILDER): The patient likely has chronic cholecystitis given [...] atrial fibrillation 11/25/2023 ACS (acute coronary syndrome) ([facility]) 11/23/19 Persistent atrial fibrillation 11/22/2023 Assessment & [...] (04/23/2022): Added automatically from request for surgery [id number] Posterior tibial tendon dysfunction 03/02/2022 Flat foot [...] 01/04/2018 Assessment & Plan (09/19/2018 1:30 PM BATTERY BUILDER): Low disease activity today on exam. Take [...] Department Care Team Description 09/10/2024 9:16 AM BATTERY BUILDER Anesthesia Event [facility] Operating Room [address] [place] [address] Tonia Gutierrez MD Reynolds, Ethan Emerson, MD 09/10/2024 9:15 AM BATTERY BUILDER - 09/10/2024 10:45 AM BATTERY BUILDER Surgery [facility] [address] [place] [address] Vignesh Hawkins MD LAPAROSCOPIC CHOLECYSTECTOMY 09/10/2024 8:13 AM BATTERY BUILDER - 09/10/2024 2:39 PM BATTERY BUILDER Hospital Encounter [facility] [address] [place] [address] Vignesh Hawkins MD Calculus of gallbladder with cholecystitis without biliary obstruction, unspecified cholecystitis acuity Discharge Disposition: Discharge to home or self care 08/14/2024 9:30 AM BATTERY BUILDER Office Visit [facility] [address] [place] [address] Vignesh Hawkins MD Calculus of gallbladder with cholecystitis without biliary obstruction, unspecified cholecystitis acuity 07/24/2024 7:58 AM BATTERY BUILDER - 07/24/2024 11:59 PM BATTERY BUILDER Hospital Encounter [facility] [address] [place] [address] Hepatomegaly, not elsewhere classified; Hepatomegaly Discharge Disposition: Discharge to home or self care 07/22/2024 8:25 AM BATTERY BUILDER - 07/22/2024 10:10 AM BATTERY BUILDER Emergency [facility] Emergency Department 1 [place] [address] Mike Suarez MD Bronchitis (Primary Dx) Discharge [...] How often do you attend chur or latter-day services? Never 12/23/2022 Do you belong to any clubs o r organizations such as evangelical groups, unions, fraternal or athletic groups, or [...] staff should administer the PHQ-9) 0 11/23/2023 [facility] - Occupational Stress [...] place to sleep or slept in a nursing home (including now)? No 12/23/2022 Personal Safety Answer Date Recorded Have you ever been in or are you currently in a harmful physical or emotional relationship or is someone making you feel afraid or unsafe? Denies 09/10/2024 Comments No Sex and Gender Information Value Date Recorded Sex Assigned at Not on file Legal Sex Female 11:50 PM BATTERY BUILDER Gender Identity Not on file Sexual Orientation Not on file Obstetrics History Last Filed Vital Signs Vital Sign Reading Time Taken Comments Blood Pressure 119/69 09/10/2024 2:00 PM BATTERY BUILDER Pulse 69 09/10/2024 2:00 PM BATTERY BUILDER Temperature 36.4 C (97.6 F) 09/10/2024 2:00 PM BATTERY BUILDER Respiratory Rate 16 09/10/2024 2:00 PM BATTERY BUILDER Oxygen Saturation 94% 09/10/2024 2:00 PM BATTERY BUILDER Inhaled Oxygen Concentration - - Weight 67.6 kg (149 lb 0.5 oz) 09/10/2024 8:15 A M BATTERY BUILDER Height 154.9 cm (5' 1 ) 09/10/2024 8:15 AM BATTERY BUILDER Body Mass Index 28.16 09/10/2024 8:15 AM BATTERY BUILDER Plan of Treatment Health Maintenance Due Date [...] Completed 11/01/2014 Medical Devices Implanted Type Area Cook Chef Device Identifier Shelf Expiration Date Model / Serial / Lot Exactech Restrictor Cement Cemex Small Od13mm Tpa-13 - [id number] Implanted:Qty: 1 on 05/04/2022 by Gavin Sewell MD at [facility] Left: Shoulder Exactech 08/28/2023 TPA-13 / / [id number] Exactech Equinoxe Reverse Shoulder +0mm Tray Humeral Adapter 320-10-00 - [id number] - [id number] Implanted:Qty: 1 on 05/04/2022 by Gavin Sewell MD at [facility] Exactech [id number] 04/07/2032 320-10-00 / [id number] / Exactech Equinoxe 40mm Small Reverse Constrain Shoulder +2.5mm Liner 320-40-13 - [id number] - [id number] Implanted:Qty: 1 on 05/04/2022 by Gavin Sewell MD at [facility] Ex[employer]ech 01/31/2024 320-40-13 / [id number] / Exactech Equinoxe Lock Reverse Shoulder Glenosphere Screw Bone 320-15-05 - [id number] - [id number] Implanted:Qty: 1 on 05/04/2022 by Gavin Sewell MD at [facility] Left: Shoulder Exactech 03/09/2027 320-15-05 / [id number] / Exactech Reverse Torque Define Shoulder Kit Screw 320-20-00 - [id number] - [id number] Implanted:Qty: 1 on 05/04/2022 by Gavin Sewell MD at [facility] Left: Shoulder Exactech 02/03/2027 320-20-00 / [id number] / Exactech Equinoxe Small Reverse Superior Posterior Augment Shoulder Left 320-35-07 - [id number] - [id number] Implanted:Qty: 1 on 05/04/2022 by Gavin Sewell MD at [facility] Left: Shoulder Ex[employer]ech [id number] 04/08/2031 320-35-07 / [id number] / Exactech Equinoxe 10mm Stem Humeral Sterile 300 - [id number] - [id number] Implanted:Qty: 1 on 05/04/2022 by Gavin Sewell MD at [facility] Left: Shoulder Exactech [id number] 09/07/2031 300 / [id number] / [employer] Cement Bone Simplex Gentamicin High Viscosity 40gm 6195-1-001 - [id number] Implanted:Qty: 1 on 05/04/2022 by Gavin Sewell MD at [facility] Left: Shoulder [employer] 09/28/2023 6195-1-001 / / [id number] Exactech Equinoxe 40mm 24.3mm Small Reverse Shoulder Sphere Glenoid 320-31-40 - [id number] - [id number] Implanted:Qty: 1 on 05/04/2022 by Gavin Sewell MD at [facility] Left: Shoulder Exactech [id number] 12/11/2030 320-31-40 / [id number] / Exactech Equinoxe 4.5mm 38mm Kit Compression Lock Cap Reverse Shoulder 320-20-38 - [id number] - [id number] Implanted:Qty: 1 on 05/04/2022 by Gavin Sewell MD at [facility] Left: Shoulder Exactech [id number] 01/12/2027 320-20-38 / [id number] / Exactech Equinoxe 4.5mm 34mm Kit Compression Lock Cap Reverse Shoulder 320-20-34 - [id number] - [id number] Implanted:Qty: 1 on 05/04/2022 by Gavin Sewell MD at [facility] Left: Shoulder Exactech [id number] 07/14/2026 320-20-34 / [id number] / [employer] Insert Tibial Knee Fixed Lm Posterior Stabilized Attune 7mm Size 5 Polyethylene [id number] - [id number] Implanted:Qty: 1 on 11/10/2022 by Gavin Sewell MD at [facility] Left: Knee [employer] 07/28/2030 [id number] / / [id number] [employer] Attune Cruciate Retain Cementless Knee Left 5 Component Femoral [id number] - [id number] Implanted:Qty: 1 on 11/10/2022 by Gavin Sewell MD at [facility] Left: Knee [employer] 04/28/2032 [id number] / / [id number] [employer] Attune Fb Tib Base Sz 5 Por [id number] - [id number] Implanted:Qty: 1 on 11/10/2022 by Gavin Sewell MD at [facility] Left: Knee [employer] 03/28/2032 [id number] / / [id number] Procedures Procedure Name Priority Date/Time Associated Diagnosis Comments SURGICAL PATHOLOGY Routine 09/10/2024 10:29 AM BATTERY BUILDER Calculus of gallbladder with cholecystitis without biliary obstruction, unspecified cholecystitis acuity W[place] AN ELECTIVE ENDOTRACHEAL AIRWAY Routine 09/10/2024 9:36 AM BATTERY BUILDER LAPAROSCOPIC CHOLECYSTECTOMY 09/10/2024 9:02 AM BATTERY BUILDER Calculus of gallbladder with cholecystitis without biliary obstruction, unspecified cholecystitis acuity EGFR STAT 09/10/2024 8:47 AM BATTERY BUILDER DIFFERENTIAL AUTO STAT 09/10/2024 8:4 7 AM BATTERY BUILDER ANTIBODY SCREEN STAT 09/10/2024 8:47 AM BATTERY BUILDER ABO/RH STAT 09/10/2024 8:47 AM BATTERY BUILDER TYPE AND SCREEN STAT 09/10/2024 8:47 AM BATTERY BUILDER CBC WITH AUTO DIFFERENTIAL STAT 09/10/2024 8:47 AM BATTERY BUILDER COMPREHENSIVE METABOLIC PANEL STAT 09/10/2024 8:47 AM BATTERY BUILDER B ABO / RH CONFIRMATION TESTING STAT 09/10/2024 8:45 AM BATTERY BUILDER US ABDOMEN COMPLETE Schedule Routine, Read Routine (OP Routine) 07/24/2024 9:00 AM BATTERY BUILDER Hepatomegaly XR CHEST 1 VIEW ED 07/22/2024 9:06 AM BATTERY BUILDER EGFR STAT 07/22/2024 8:48 AM BATTERY BUILDER DIFFERENTIAL AUTO STAT 07/22/2024 8:4 8 AM BATTERY BUILDER MAGNESIUM Routine 07/22/2024 8:48 AM BATTERY BUILDER COMPREHENSIVE METABOLIC PANEL STAT 07/22/2024 8:48 AM BATTERY BUILDER CBC WITH AUTO DIFFERENTIAL STAT 07/22/2024 8:48 AM BATTERY BUILDER INFLUENZA A/B, RSV, AND COVID-19 PCR Routine 07/22/2024 8:41 AM BATTERY BUILDER SERUM HEPATITIS C AB Routine 11/01/2014 8:32 AM BATTERY BUILDER DIGITAL MAMMOGRAPHY Routine 12/11/2013 11:01 AM CDT from Last 3 Months or Most Recently Relevant to Health Maintenance Results * Surgical pathology (09/10/2024 10:29 AM BATTERY BUILDER) Tissue (Gallbladder) 09/10/2024 9:51 AM BATTERY BUILDER Narrative PATHOLOGY [facility] ([place]) - 09/11/2024 3:50 PM BATTERY BUILDER EPIC results best viewed via link to PDF [facility] Department of Pathology [address] [place] [address] Note to Patients: This report may contain [...] Final Report Patient Name: ANTOINETTE DELANEY Address: [address] [place] [address] Gender: F : 1960 (Age: 64) Service: Surgery [facility] Hospital #: [id number] Patient Type: [facility] Taken: 09/10/2024 Received: 09/10/2024 Accessioned: 09/10/2024 Reported: [...] determined by the Surgical Pathology Department at [facility] as part of an ongoing lead quality technician program and in compliance with federally [...] characteristics determined by the Surgical Pathology Department [facility]. It has not been cleared or approved by the U. S. Food and Drug Administration. Note for decalcified specimens: This assay has not been validated on decalcified tissues. Results should be interpreted with caution given the possibility of false negativity on decalcified specimens Vignesh Hawkins MD LAB PATHOLOGY OR DERABLES Final Result Performing Organization Address City/State/[facility] Co de Phone Number PATHOLOGY [facility] ([address] [address] * [place] AN ELECTIVE ENDOTRACHEAL AIRWAY (09/10/2024 9:36 AM BATTERY BUILDER) [place] CRNA - 09/10/2024 9:36 AM BATTERY BUILDER Cliff [place] CRNA 09/10/2024 9:37 AM Airway [...] nal Result * eGFR (09/10/2024 8:47 AM BATTERY BUILDER) eGFR >90 >=60 mL/min/1. 73 m2 Comment: [...] last reviewed 2021. Blood 09/10/2024 8:47 AM BATTERY BUILDER 09/10/2024 8:50 AM BATTERY BUILDER us Vignesh Hawkins MD LAB BLOOD ORDERA BLES Final Result [facility] ([place]) 1 [facility] Department of [employer] [place] [address] * Differential, auto (09/10/2024 8:47 AM BATTERY BUILDER) Neutrophil abs 5.3 1.5 - 6.5 K/cumm Imm gran abs 0.0 0.0 - 0.1 K/cumm [facility] ([place]) Lymphocyte abs 0.8 0.8 - 3.3 K/cumm [...] revised on 2017. Blood 09/10/2024 8:47 AM BATTERY BUILDER 09/10/2024 8:50 AM BATTERY BUILDER us Vignesh Hawkins MD LAB BLOOD ORDERA BLES Final Result [facility] ([place]) 1 [facility] Department [place] [address] * (ABNORMAL) CBC with auto differential (09/10/2024 8:47 AM BATTERY BUILDER) Pathologist [facility] [place] WBC 7.1 3.8 - 9.9 K/cumm Hgb [...] [facility] ([place]) Blood 09/10/2024 8:47 AM BATTERY BUILDER 09/10/2024 8:50 AM BATTERY BUILDER us Vignesh Hawkins MD LAB BLOOD ORDERA BLES Final Result [facility] ([place]) 1 [facility] Department [place] [address] * ABO/Rh (09/10/2024 8:47 AM BATTERY BUILDER) Pathologist [facility] [place] ABO/Rh B Positive Blood 09/10/2024 8:47 AM BATTERY BUILDER 09/10/2024 8:49 AM BATTERY BUILDER Narrative [facility] ([place]) - 09/10/2024 9:11 AM BATTERY BUILDER Has the patient had Daratumumab or Isatuximab in the past 6 months?->Unknown Vignesh Hawkins MD LAB BLOOD BANK T EST ORDERABLES Final Result [facility] ([place]) 1 [facility] Department [place] [address] * Antibody screen (09/10/2024 8:47 AM BATTERY BUILDER) [facility] Lonnie, indirect, Gel Interpretation Negative ABSC Blood 09/10/2024 8:47 AM BATTERY BUILDER 09/10/2024 8:49 AM BATTERY BUILDER Narrative [facility] ([place]) - 09/10/2024 9:25 AM BATTERY BUILDER Has the patient had Daratumumab or Isatuximab in the past 6 months?->Unknown Vignesh Hawkins MD LAB BLOOD BANK T EST ORDERABLES Final Result Performing Organization Address City/[facility] Co de Phone Number [facility] ([place]) 1 [facility] [place] [address] * (ABNORMAL) Comprehensive metabolic panel (09/10/2024 8:47 AM BATTERY BUILDER) [facility] Sodium 133(L) 135 - 145 mmol/L Comment:sandra moreno(AMB SUrg) Potassium, pl 2.9(C) 3.3 - 4.9 mmol/L [facility] ([place]) Comment:Critical Result call ed by [email or web address] at 2024-09-10 09:18:13. Result Read Back by [...] Comment:sandra moreno(AMB SUrg) Blood 09/10/2024 8:47 AM BATTERY BUILDER 09/10/2024 8:50 AM BATTERY BUILDER us Vignesh Hawkins MD LAB BLOOD ORDERA BLES Final Result [facility] ([place]) 1 [facility] Department [place] [address] * ABO / Rh Confirmation Testing (09/10/2024 8:45 AM BATTERY BUILDER) ABO/Rh Confirmation B Positive [facility] Blood 09/10/2024 8:45 AM BATTERY BUILDER 09/10/2024 9:13 AM BATTERY BUILDER us Vignesh Hawkins MD LAB BLOOD ORDERA BLES Final Result [facility] ([place]) 1 [facility] Department [place] [address] [facility] * US Abdomen Complete (07/24/2024 9:00 AM BATTERY BUILDER) Anatomical Region Laterality Modality Abdomen N/A Ultrasound 07/27/2024 3:45 PM BATTERY BUILDER Narrative 07/27/2024 3:47 PM BATTERY BUILDER EXAM DESCRIPTION: US ABDOMEN COMPLETE REASON FOR [...] liver size could not be provided. The pitch worker indicated that real-time the liver appears enlarged. Liver is increased in echogenicity. There is no focal hepatic lesion. LIVER VASCULATURE: Normal directional flow of the main portal and hepatic veins. GALLBLADDER: Echogenic shadowing gallstone. Mild gallbladder wall thickening 0.3 cm. No pericholecystic fluid. Casino Floorperson reports a negative sonographic Tom's sign. BILIARY: [...] Kenny Zacarias M.D. CH: BHARTI Report ID: [id number] Reading Location: [place] [address] Procedure Note Kenny Zacarias Jr., MD - [...] the liver size could not be provided.The pitch worker indicated that real-time the liver appears enlarged. Liver is increased in echogenicity. There is no focal hepatic lesion. LIVER VASCULATURE: Normal directional flow of the main portal and hepatic veins. GALLBLADDER: Echogenic shadowing gallstone. Mild gallbladder wallthickening 0.3 cm. No pericholecystic fluid. Casino Floorperson reports a negativesonographic Tom's sign. BILIARY: No [...] Kenny Zacarias M.D. CH: BHARTI Report ID: [id number] Reading Location: [id number] Mariah Adams MD [facility] [place] PROCEDURES Final Result * XR Chest 1 View (07/22/2024 9:06 AM BATTERY BUILDER) Anatomical Region Laterality Modality Body, Chest N/A Computed Radiogr aphy 07/22/2024 9:09 AM BATTERY BUILDER Narrative 07/22/2024 9:11 AM BATTERY BUILDER EXAM DESCRIPTION: XR CHEST 1 VIEW REASON [...] by Morgan Dong M.D. JR: Report ID: [id number] Reading Location: [id number] Procedure Note Morgan Dong MD - 07/22/2024 [...] by Morgan Dong M.D. JR: Report ID: [id number] Reading Location: [place] [address] Mike Suarez MD IMG XR PROCEDURES Final Resu lt * eGFR (07/22/2024 8:48 AM BATTERY BUILDER) eGFR 86 >=60 mL/min/1. 73 m2 Comment: [...] last reviewed 2021. Blood 07/22/2024 8:48 AM BATTERY BUILDER 07/22/2024 8:50 AM BATTERY BUILDER Mike Suarez MD LAB BLOOD ORDERABLES Final R esult [facility] ([place]) [address] [facility] Department [place] [address] * (ABNORMAL) Differential, auto (07/22/2024 8:48 AM BATTERY BUILDER) Neutrophil abs 9.0(H) 1.5 - 6.5 K/cumm [...] revised on 2017. Blood 07/22/2024 8:48 AM BATTERY BUILDER 07/22/2024 8:50 AM BATTERY BUILDER Mike Suarez MD LAB BLOOD ORDERABLES Final R esult [facility] ([place]) 1 [facility] [employer] [place] [address] * (ABNORMAL) CBC with auto differential (07/22/2024 8:48 AM BATTERY BUILDER) WBC 10.3(H) 3.8 - 9.9 K/cumm Hgb [...] [facility] ([place]) Blood 07/22/2024 8:48 AM BATTERY BUILDER 07/22/2024 8:50 AM BATTERY BUILDER Mike Suarez MD LAB BLOOD ORDERABLES Final R esult [facility] ([place]) 1 [facility] [employer] [place] [employer] [place] [address] * Magnesium (07/22/2024 8:48 AM BATTERY BUILDER) Magnesium 1.6 1.4 - 2.5 mg/dL Comment:Anai Truong (ER) Blood 07/22/2024 8:48 AM BATTERY BUILDER 07/22/2024 8:50 AM BATTERY BUILDER us Mike Suarez MD LAB BLOOD ORDERABLES Final R esult [facility] ([place]) 1 [facility] Department [place] [address] * (ABNORMAL) Comprehensive metabolic panel (07/22/2024 8:48 AM BATTERY BUILDER) Sodium 130(L) 135 - 145 mmol/L Comment:Anai Truong (ER) Potassium, pl 3.0(C) 3.3 - 4.9 mmol/L [facility] ([place]) Comment:Critical Result call ed by [email or web address] at 2024-07-22 09:20:43. Result Read Back by Anai Truong (ER) Chloride 89(L) 97 - 110 mmol/L [facility] ([place]) Comment:Anai Truong (ER) CO2 28 22 - 32 mmol/L [facility] ([place]) Comment:Anai Truong (ER) Anion gap 13 2 - 15 mmol/L [facility] ([place]) Comment:Anai Truong (ER) BUN 10 6 - 25 mg/dL [facility] ([place]) Comment:Anai Truong (ER) Creatinine 0.78 0.60 - 1.10 mg/dL [facility] ([place]) Comment:Anai Truong (ER) Glucose 139 70 - 199 mg/dL [facility] ([place]) Comment: Anai Truong (ER) Interpretive [...] Bilirubin, total 0.6 0.1 - 1.2 mg/dL [facility] ([place]) Comment:Anai Truong (ER) Protein, pl 8.2 6.5 - 8.5 g/dL [facility] ([place]) Comment:Anai Truong (ER) Albumin 4.1 3.5 - 5.0 g/dL [facility] ([place]) Comment:Anai Truong (ER) Alk phos 162(H) 40 - 130 Units/L [facility] ([place]) Comment:Anai Truong (ER) ALT 18 7 - 45 Units/L [facility] ([place]) Comment:Anai Truong (ER) AST 29 10 - 45 Units/L [facility] ([place]) Comment:Anai Truong (ER) Blood 07/22/2024 8:48 AM BATTERY BUILDER 07/22/2024 8:50 AM BATTERY BUILDER Mike Suarez MD LAB BLOOD ORDERABLES Final R esult [facility] ([place]) 1 [facility] Department [place] [address] * Influenza A/B, RSV, and COVID-19 PCR Nasopharyngeal (07/22/2024 8:41 AM BATTERY BUILDER) COVID-19 RNA Negative Negative Influenza A RNA Negative Negative [facility] ([place]) Influenza B RNA Negative Negative [facility] ([place]) RSV RNA Negative Negative [facility] ([place]) Comment: Interpretive data: Testing performed by [facility]. This test is performed using the [employer] Xpert Xpress CoV-2/Flu/RSV plus assay. This is a multiplex, real- time reverse transcriptase PCR assay intended for the qualitative detection of nucleic acid from SARS-CoV-2, influenza A, influenza B, and respiratory syncytial virus. This assay has been cleared by the [place] Food and Drug administration. The performance characteristics have been verified by the [facility]. Results must be considered in the clinical context, and a negative result does not rule out infection. Interpretive Data last revised 2023 Nasopharyngeal 07/22/2024 8: 41 AM BATTERY BUILDER 07/22/2024 8:43 AM BATTERY BUILDER Narrative [facility] ([place]) - 07/22/2024 9:24 AM BATTERY BUILDER Is the Patient experiencing symptoms consistent with COVID?->Yes us Mike Suarez MD LAB MICROBIOLOGY - GENERAL O RDERABLES Final Result [facility] ([place]) 1 [facility] Department [place] [address] * Serum Hepatitis C ab (11/01/2014 8:32 AM BATTERY BUILDER) HCV ab Negative NEG HISTORICAL RESULTS Serum 11/01/2014 8:32 AM BATTERY BUILDER Narrative HISTORICAL RESULTS - 11/02/2014 3:46 AM BATTERY BUILDER Interpretive Data If confirmation is required, call Laboratory Customer Service to request sample to be sent to [facility] for Hepatitis C Virus (HCV) RNA Detection and Quantitation by Real-Time Reverse Supervisor [employer]-PCR (RT-PCR). Current interpretive data was last revised on 2011 us Fariha Whitley MD LAB BLOOD ORDERABLES Final R esult HISTORICAL RESULTS * DIGITAL MAMMOGRAPHY (12/11/2013 11:01 AM CDT) Anatomical Region Laterality Modality Breast Mammography 12/11/2013 11:0 1 AM CDT Narrative 12/12/2013 12:15 AM CDT Vm Mammogram Performed by: LT Screening Mamm Bi Acc#: [id number] DATE OF EXAM: Dec 11 2013 CLINICAL [...] Mammogram Performed by: Screening Mamm Bi Acc#: [id number] DATE OF EXAM: Dec 11 2013 CLINICAL [...] Advance Directives For more information, please contact: [phone] * Full Code (Latest Code Status on File) Date Activated Date Inactivated Comments 11/22/2023 6:25 PM 11/25/2023 11:09 PM * Full Code Date Activated Date Inactivated Comments 12/21/2022 5:34 PM 12/24/2022 8:16 PM * Full Code Date Activated Date Inactivated Comments 11/10/2022 4:25 PM 11/11/2022 3:51 PM * Full Code Date Activated Date Inactivated Comments 05/04/2022 1:38 PM 05/05/2022 6:47 PM Care Teams Leather Cartridge Belt Maker Relationship Specialty Start Date End Date Mariah Adams MD [address] [place] [phone] PCP - General Internal Medicine 08/19/20 Mitchell Zamarripa MD [address] [place] [address] Referring Physician Rheumatology 03/11/22 Brit More NP [address] [place] [address] Nurse Practitioner Cardiovascular Disease 03/11/22 Cliff Ronquillo NP [address] [place] [address] DR [facility] [facility] [place] [address] Nurse Practitioner Nurse Practitioner 05/05/22 Dick Aguilar PA [address] [place] [address] DR [facility] [place] [address] Physician Pharmacy [facility] Orthopedic Surgery 11/11/22 Gavin Sewell MD [address] [place] [address] DR CARLOS QUINTERO [address] [place] [address] Surgeon Orthopedic Surgery 12/24/22
--- OUTSIDE RECORDS SUMMARY | 2024-10-08 13:23 | XMS_ITS | Referral Summary ---
Author Organization [facility] Address [address] [place] [address] Care Team Providers Care Open Winder Name Role Phone Mariah Adams MD Primary Care Provider + Mitchell Zamarripa MD Unavailable [phone] Brit More SHEAR ASSEMBLER Unavailable [phone] Cliff Ronquillo NP Unavailable [phone] Dick Aguilar Unavailable [phone] Gavin Sewell MD Unavailable [phone] Encounters Date Type Department Care Team Description 09/10/2024 9:15 AM ROTARY SCREEN PRINTING 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 - 09/10/2024 10:45 AM ROTARY SCREEN PRINTING 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 Surgery [facility] Operating Room [address] [place] [address] Vignesh Hawkins MD LAPAROSCOPIC CHOLECYSTECTOMY 09/10/2024 9:16 AM ROTARY SCREEN PRINTING 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 Anesthesia Event [facility] Operating Room [address] [place] [address] Tonia Gutierrez MD Reynolds, Ethan Emerson, MD 09/10/2024 8:13 AM ROTARY SCREEN PRINTING 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 - 09/10/2024 2:39 PM ROTARY SCREEN PRINTING 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 Hospital Encounter [facility] Operating Room [address] [place] [address] Vignesh Hawkins MD Calculus of gallbladder with cholecystitis without biliary obstruction, unspecified cholecystitis acuity Discharge Disposition: Discharge to home or self care 08/14/2024 9:30 AM ROTARY SCREEN PRINTING 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 Office Visit [facility] [address] [facility] [address] [place] [id number] Vignesh Hawkins MD Calculus of gallbladder with cholecystitis without biliary obstruction, unspecified cholecystitis acuity 07/24/2024 7:58 AM ROTARY SCREEN PRINTING 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 - 07/24/2024 11:59 PM ROTARY SCREEN PRINTING 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 Hospital Encounter [facility] [address] [place] [address] Hepatomegaly, not elsewhere classified; Hepatomegaly Discharge Disposition: Discharge to home or self care 07/22/2024 8:25 AM ROTARY SCREEN PRINTING 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 - 07/22/2024 10:10 AM ROTARY SCREEN PRINTING 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 Emergency [facility] Emergency Department [address] [place] [address] Mike Suarez MD Bronchitis (Primary Dx) Discharge [...] 1 tablet (100 mcg total) by mouth building trades instructor before breakfast 1 Active celecoxib (CeleBREX) 100 [...] 08/14/2024 Assessment & Plan (08/14/2024 9:48 AM ROTARY SCREEN PRINTING 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): The patient likely has chronic cholecystitis given [...] atrial fibrillation 11/25/2023 ACS (acute coronary syndrome) ([facility]/HCC) 11/23/19 24 Persistent atrial fibrillation 11/22/2023 [...] (04/23/2022): Added automatically from request for surgery [id number] Posterior tibial tendon dysfunction 03/02/2022 Flat foot [...] 01/04/2018 Assessment & Plan (09/19/2018 1:30 PM ROTARY SCREEN PRINTING 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): Low disease activity today on exam. Take [...] often do you attend chur ch or voodoo services? Never 12/23/2022 Do you belong to any clubs o r organizations such as tenriism groups, unions, fraternal or athletic groups, or [...] staff should administer the PHQ-9) 0 11/23/2023 [facility] - [...] place to sleep or slept in a retirement (including now)? No 12/23/2022 Personal Safety Answer Date Recorded Have you ever been in or are you currently in a harmful physical or emotional relationship or is someone making you feel afraid or unsafe? Denies 09/10/2024 Comments No Sex and Gender Information Value Date Recorded Sex Assigned at Not on file Legal Sex Female 11:50 PM ROTARY SCREEN PRINTING 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 Gender Identity Not on file Sexual Orientation Not on file Last Filed Vital Signs Vital Sign Reading Time Taken Comments Blood Pressure 119/69 09/10/2024 2:00 PM ROTARY SCREEN PRINTING 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 Pulse 69 09/10/2024 2:00 PM ROTARY SCREEN PRINTING 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 Temperature 36.4 C (97.6 F) 09/10/2024 2:00 PM ROTARY SCREEN PRINTING 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 Respiratory Rate 16 09/10/2024 2:00 PM ROTARY SCREEN PRINTING 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 Oxygen Saturation 94% 09/10/2024 2:00 PM ROTARY SCREEN PRINTING 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 Inhaled Oxygen Concentration - - Weight 67.6 kg (149 lb 0.5 oz) 09/10/2024 8:15 A M ROTARY SCREEN PRINTING 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 Height 154.9 cm (5' 1 ) 09/10/2024 8:15 AM ROTARY SCREEN PRINTING 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 Body Mass Index 28.16 09/10/2024 8:15 AM ROTARY SCREEN PRINTING 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 Plan of Treatment Not on file Medical Devices Implanted Type Area Recording Artist Device Identifier Shelf Expiration Date Model / Serial / Lot Exactech Restrictor Cement Cemex Small Od13mm Tpa-13 - [id number] Implanted:Qty: 1 on 05/04/2022 by Gavin Sewell MD at [facility] Left: Shoulder Ex[employer]ech 08/28/2023 TPA-13 / / [id number] Exactech Equinoxe Reverse Shoulder +0mm Tray Humeral Adapter 32010-00 - [id number] - [id number] Implanted:Qty: 1 on 05/04/2022 by Gavin Sewell MD at [facility] Ex[employer] [id number] 04/07/2032 320-1000 / [id number] / Ex[employer]ech Equinoxe 40mm Small Reverse Constrain Shoulder +2.5mm Liner 320-40-13 - [id number] - [id number] Implanted:Qty: 1 on 05/04/2022 by Gavin Sewell MD at [facility] 01/31/2024 320-40-13 / [id number] / Ex[employer]ech Equinoxe Lock Reverse Shoulder Glenosphere Screw Bone 320-15-05 - [id number] - [id number] Implanted:Qty: 1 on 05/04/2022 by Gavin Sewell MD at [facility] Left: Shoulder Exactech 03/09/2027 320-15- / [id number] / Exactech Reverse Torque Define Shoulder Kit Screw 320-20-00 - [id number] - [id number] Implanted:Qty: 1 on 05/04/2022 by Gavin Sewell MD at [facility] Left: Shoulder [employer]ech 02/03/2027 320-20-00 / [id number] / Ex[employer]ech Equinoxe Small Reverse Superior Posterior Augment Shoulder Left 320-35-07 - [id number] - [id number] Implanted:Qty: 1 on 05/04/2022 by Gavin Sewell MD at [facility] Left: Shoulder [employer] [id number] 04/08/2031 320-35-07 / [id number] / Exactech Equinoxe 10mm Stem Humeral Sterile 300-09-07 - [id number] - [id number] Implanted:Qty: 1 on 05/04/2022 by Gavin Sewell MD at [facility] Left: Shoulder Ex[employer]ech [id number] 09/07/2031 300-09-07 / [id number] / [employer] Cement Bone Simplex Gentamicin High Viscosity 40gm 6195-1-001 - [id number] Implanted:Qty: 1 on 05/04/2022 by Gavin Sewell MD at [facility] Left: Shoulder [employer] 09/28/2023 6195-1-001 / / [id number] Exactech Equinoxe 40mm 24.3mm Small Reverse Shoulder Sphere Glenoid 320-31-40 - [id number] - [id number] Implanted:Qty: 1 on 05/04/2022 by Gavin Sewell MD at [facility] Left: Shoulder Ex[employer]ech [id number] 12/11/2030 320-31-40 / [id number] / Ex[employer]ech Equinoxe 4.5mm 38mm Kit Compression Lock Cap Reverse Shoulder 320-20-38 - [id number] - [id number] Implanted:Qty: 1 on 05/04/2022 by Gavin Sewell MD at [facility] Left: Shoulder [employer]ech [id number] 01/12/2027 320-20-38 / [id number] / Exactech Equinoxe 4.5mm 34mm Kit Compression Lock Cap Reverse Shoulder 320-20-34 - [id number] - [id number] Implanted:Qty: 1 on 05/04/2022 by Gavin Sewell MD at [facility] Left: Shoulder Exactech [id number] 07/14/2026 320-20-34 / [id number] / [employer] Insert Tibial Knee Fixed Lm Posterior Stabilized Attune 7mm Size 5 Polyethylene [id number] - [id number] Implanted:Qty: 1 on 11/10/2022 by Gavin Sewell MD at [facility] Left: Knee [employer] 07/28/2030 [id number] / / [id number] [employer] Attune Cruciate Retain Cementless Knee Left 5 Component Femoral [id number] - [id number] Implanted:Qty: 1 on 11/10/2022 by Gavin Sewell MD at [facility] Left: Knee [employer] 04/28/2032 [id number] / / [id number] [employer] Attune Fb Tib Base Sz 5 Por [id number] - [id number] Implanted:Qty: 1 on 11/10/2022 by Gavin Sewell MD at [facility] Left: Knee [employer] 03/28/2032 [id number] / / [id number] Procedures Procedure Name Priority Date/Time Associated Diagnosis Comments SURGICAL PATHOLOGY Routine 09/10/2024 10:29 AM ROTARY SCREEN PRINTING 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 Calculus of gallbladder with cholecystitis without biliary obstruction, unspecified cholecystitis acuity NV AN ELECTIVE ENDOTRACHEAL AIRWAY Routine 09/10/2024 9:36 AM ROTARY SCREEN PRINTING 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 LAPAROSCOPIC CHOLECYSTECTOMY 09/10/2024 9:02 AM ROTARY SCREEN PRINTING 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 Calculus of gallbladder with cholecystitis without biliary obstruction, unspecified cholecystitis acuity EGFR STAT 09/10/2024 8:47 AM ROTARY SCREEN PRINTING 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 DIFFERENTIAL AUTO STAT 09/10/2024 8:4 7 AM ROTARY SCREEN PRINTING 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 ANTIBODY SCREEN STAT 09/10/2024 8:47 AM ROTARY SCREEN PRINTING 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 ABO/RH STAT 09/10/2024 8:47 AM ROTARY SCREEN PRINTING 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 TYPE AND SCREEN STAT 09/10/2024 8:47 AM ROTARY SCREEN PRINTING 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 CBC WITH AUTO DIFFERENTIAL STAT 09/10/2024 8:47 AM ROTARY SCREEN PRINTING 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 COMPREHENSIVE METABOLIC PANEL STAT 09/10/2024 8:47 AM ROTARY SCREEN PRINTING 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 B ABO / RH CONFIRMATION TESTING STAT 09/10/2024 8:45 AM ROTARY SCREEN PRINTING 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 US ABDOMEN COMPLETE Schedule Routine, Read Routine (OP Routine) 07/24/2024 9:00 AM ROTARY SCREEN PRINTING 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 Hepatomegaly XR CHEST 1 VIEW ED 07/22/2024 9:06 AM ROTARY SCREEN PRINTING 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 EGFR STAT 07/22/2024 8:48 AM ROTARY SCREEN PRINTING 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 DIFFERENTIAL AUTO STAT 07/22/2024 8:4 8 AM ROTARY SCREEN PRINTING 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 MAGNESIUM Routine 07/22/2024 8:48 AM ROTARY SCREEN PRINTING 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 COMPREHENSIVE METABOLIC PANEL STAT 07/22/2024 8:48 AM ROTARY SCREEN PRINTING 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 CBC WITH AUTO DIFFERENTIAL STAT 07/22/2024 8:48 AM ROTARY SCREEN PRINTING 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 INFLUENZA A/B, RSV, AND COVID-19 PCR Routine 07/22/2024 8:41 AM ROTARY SCREEN PRINTING 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 SERUM HEPATITIS C AB Routine 11/01/2014 8:32 AM ROTARY SCREEN PRINTING 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 DIGITAL MAMMOGRAPHY Routine 12/11/2013 11:01 AM CDT from Last 3 Months or Most Recently Relevant to Health Maintenance Results * Surgical pathology (09/10/2024 10:29 AM ROTARY SCREEN PRINTING 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) Tissue (Gallbladder) 09/10/2024 9:51 AM ROTARY SCREEN PRINTING 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 Narrative [facility] ([place]) - 09/11/2024 3:50 PM ROTARY SCREEN PRINTING 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 EPIC results best viewed via link to PDF [facility] Department of Pathology [address] [place] [address] Note to Patients: This report may [...] Final Report Patient Name: ANTOINETTE DELANEY Address: [address] [place] [address] Gender: F : 1960 (Age: 64) Service: Surgery Location: [facility] Hospital #: [id number] Patient Type: [facility] Taken: 09/10/2024 Received: 09/10/2024 Accessioned: 09/10/2024 Reported: [...] determined by the Surgical Pathology Department at [facility] as part of an ongoing quality assurance technician program and in compliance with federally [...] characteristics determined by the Surgical Pathology Department [facility]. It has not been cleared or approved by the U. S. Food and Drug Administration. Note for decalcified specimens: This assay has not been validated on decalcified tissues. Results should be interpreted with caution given the possibility of false negativity on decalcified specimens us Vignesh Hawkins MD LAB PATHOLOGY OR DERABLES Final Result Performing Organization Address City/State/[facility] Co de Phone Number PATHOLOGY [facility] [address] [place] [address] * NV AN ELECTIVE ENDOTRACHEAL AIRWAY (09/10/2024 9:36 AM ROTARY SCREEN PRINTING 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) Narrative Cliff Davis CRNA - 09/10/2024 9:36 AM ROTARY SCREEN PRINTING 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 Cliff Davis CRNA 09/10/2024 9:37 AM Airway [...] nal Result * eGFR (09/10/2024 8:47 AM ROTARY SCREEN PRINTING 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) eGFR >90 >=60 mL/min/1. 73 m2 Comment: [...] last reviewed 2021. Blood 09/10/2024 8:47 AM ROTARY SCREEN PRINTING 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 09/10/2024 8:50 AM ROTARY SCREEN PRINTING 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 Vignesh Hawkins MD LAB BLOOD ORDERA BLES Final Result [facility] ([place] [address] [facility] Department [place] [address] * Differential, auto (09/10/2024 8:47 AM ROTARY SCREEN PRINTING 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) Neutrophil abs 5.3 1.5 - 6.5 K/cumm Imm gran abs 0.0 0.0 - 0.1 K/cumm [facility] ([place]) Lymphocyte abs 0.8 0.8 - 3.3 K/cumm [facility] ([place]) Monocyte abs 0.6 0.2 - 0.8 K/cumm [facility] ([place]) Eosinophil abs 0.3 0.0 - 0.5 K/cumm [facility] ([place]) Basophil abs 0.1 0.0 - 0.1 K/cumm [...] revised on 2017. Blood 09/10/2024 8:47 AM ROTARY SCREEN PRINTING 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 09/10/2024 8:50 AM ROTARY SCREEN PRINTING 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 us Vignesh Hawkins MD LAB BLOOD ORDERA BLES Final Result [facility] ([place]) [address] [facility] Department [place] [address] * (ABNORMAL) CBC with auto differential (09/10/2024 8:47 AM ROTARY SCREEN PRINTING 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) WBC 7.1 3.8 - 9.9 K/cumm Hgb [...] [facility] ([place]) Blood 09/10/2024 8:47 AM ROTARY SCREEN PRINTING 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 09/10/2024 8:50 AM ROTARY SCREEN PRINTING 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 Vignesh Hawkins MD LAB BLOOD ORDERA BLES Final Result [facility] ([place]) [address] [facility] [place] [address] * ABO/Rh (09/10/2024 8:47 AM ROTARY SCREEN PRINTING 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) ABO/Rh B Positive Blood 09/10/2024 8:47 AM ROTARY SCREEN PRINTING 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 09/10/2024 8:49 AM ROTARY SCREEN PRINTING 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 Narrative [facility] ([place]) - 09/10/2024 9:11 AM ROTARY SCREEN PRINTING 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 Has the patient had Daratumumab or Isatuximab in the past 6 months?->Unknown Vignesh Hawkins MD LAB BLOOD BANK T EST ORDERABLES Final Result [facility] ([place] [address] [facility] Department [place] [address] * Antibody screen (09/10/2024 8:47 AM ROTARY SCREEN PRINTING 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) [facility] Lonnie, indirect, Gel Interpretation Negative ABSC Blood 09/10/2024 8:47 AM ROTARY SCREEN PRINTING 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 09/10/2024 8:49 AM ROTARY SCREEN PRINTING 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 Narrative [facility] - 09/10/2024 9:25 AM ROTARY SCREEN PRINTING 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 Has the patient had Daratumumab or Isatuximab in the past 6 months?->Unknown us Vignesh Hawkins MD LAB BLOOD BANK T EST ORDERABLES Final Result [facility] ([place]) [address] [facility] Department [place] [address] * (ABNORMAL) Comprehensive metabolic panel (09/10/2024 8:47 AM ROTARY SCREEN PRINTING 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) [facility] Sodium 133(L) 135 - 145 mmol/L Comment:sandra moreno(AMB SUrg) Potassium, pl 2.9(C) 3.3 - 4.9 mmol/L [facility] ([place]) Comment:Critical Result call ed by [email or web address] at 2024-09-10 09:18:13. Result Read Back by sandra moreno(AMB SUrg) Chloride 94(L) 97 - 110 mmol/L [facility] ([place]) Comment:sandra moreno(AMB SUrg) CO2 25 22 - 32 mmol/L [facility] ([place] Comment:sandra moreno(AMB SUrg) Anion gap 14 2 - 15 mmol/L [facility] ([place]) Comment:sandra moreno(AMB SUrg) BUN 12 6 - 25 mg/dL [facility] ([place] Comment:sandra moreno(AMB SUrg) Creatinine 0.68 0.60 - 1.10 mg/dL [facility] Comment:sandra moreno(AMB SUrg) Glucose 121 70 - 199 mg/dL [facility] Comment: sandra moreno(AMB SUrg) Interpretive [...] - 8.5 g/dL [facility] ([place]) Comment:sandra cisnerosr(AMB SUrg) Albumin 3.9 3.5 - 5.0 g/dL [facility] ([place]) Comment:sandra cisnerosr(AMB SUrg) Alk phos 126 40 - 130 Units/L [facility] ([place]) Comment:sandra josh(AMB SUrg) ALT 23 7 - 45 Units/L [facility] ([place]) Comment:sandra josh(AMB SUrg) AST 30 10 - 45 Units/L [facility] ([place]) Comment:sandra cisnerosr(AMB SUrg) Blood 09/10/2024 8:47 AM ROTARY SCREEN PRINTING 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 09/10/2024 8:50 AM ROTARY SCREEN PRINTING 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 Vignesh Hawkins MD LAB BLOOD ORDERA BLES Final Result [facility] ([place]) [address] [facility] Department [place] [address] * ABO / Rh Confirmation Testing (09/10/2024 8:45 AM ROTARY SCREEN PRINTING 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) ABO/Rh Confirmation B Positive [facility] Blood 09/10/2024 8:45 AM ROTARY SCREEN PRINTING 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 09/10/2024 9:13 AM ROTARY SCREEN PRINTING 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 Vignesh Hawkins MD LAB BLOOD ORDERA BLES Final Result [facility] ([place] [address] [facility] Department [place] [address] [facility] * US Abdomen Complete (07/24/2024 9:00 AM ROTARY SCREEN PRINTING 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) Anatomical Region Laterality Modality Abdomen N/A Ultrasound 07/27/2024 3:45 PM ROTARY SCREEN PRINTING 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 Narrative 07/27/2024 3:47 PM ROTARY SCREEN PRINTING 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 EXAM DESCRIPTION: US ABDOMEN COMPLETE REASON FOR [...] liver size could not be provided. The yarder operator indicated that real-time the liver appears enlarged. Liver is increased in echogenicity. There is no focal hepatic lesion. LIVER VASCULATURE: Normal directional flow of the main portal and hepatic veins. GALLBLADDER: Echogenic shadowing gallstone. Mild gallbladder wall thickening 0.3 cm. No pericholecystic fluid. Butadiene Compressor Operator reports a negative sonographic Tom's sign. [...] Kenny Zacarias M.D. CH: BHARTI Report ID: [id number] Reading Location: [id number] Procedure Note Kenny Zacarias Jr., MD - [...] the liver size could not be provided.The yarder operator indicated that real-time the liver appears enlarged. Liver is increased in echogenicity. There is no focal hepatic lesion. LIVER VASCULATURE: Normal directional flow of the main portal and hepatic veins. GALLBLADDER: Echogenic shadowing gallstone. Mild gallbladder wallthickening 0.3 cm. No pericholecystic fluid. Butadiene Compressor Operator reports a negativesonographic Tom's sign. BILIARY: [...] Kenny Zacarias M.D. CH: BHARTI Report ID: [id number] Reading Location: [id number] us Mariah Adams MD IMG US PROCEDURES Final Result * XR Chest 1 View (07/22/2024 9:06 AM ROTARY SCREEN PRINTING 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) Anatomical Region Laterality Modality Body, Chest N/A Computed Radiogr aphy 07/22/2024 9:09 AM ROTARY SCREEN PRINTING 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 Narrative 07/22/2024 9:11 AM ROTARY SCREEN PRINTING 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 EXAM DESCRIPTION: XR CHEST 1 VIEW REASON [...] by Morgan Dong M.D., JR: Report ID: [id number] Reading Location: [id number] Procedure Note Morgan Dong MD - 07/22/2024 [...] by Morgan Dong M.D. JR: Report ID: [id number] Reading Location: [id number] Mike Suarez MD IMG XR PROCEDURES Final Resu lt * eGFR (07/22/2024 8:48 AM ROTARY SCREEN PRINTING 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) eGFR 86 >=60 mL/min/1. 73 m2 Comment: [...] last reviewed 2021. Blood 07/22/2024 8:48 AM ROTARY SCREEN PRINTING 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 07/22/2024 8:50 AM ROTARY SCREEN PRINTING 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 Mike Suarez MD LAB BLOOD ORDERABLES Final R esult [facility] ([place] [address] [facility] Department [place] [address] * (ABNORMAL) Differential, auto (07/22/2024 8:48 AM ROTARY SCREEN PRINTING 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) Neutrophil abs 9.0(H) 1.5 - 6.5 K/cumm Imm gran abs 0.0 0.0 - 0.1 K/cumm [facility] ([place]) Lymphocyte abs 0.6(L) 0.8 - 3.3 K/cumm [facility] ([place]) Monocyte abs 0.6 0.2 - 0.8 K/cumm [facility] ([place]) Eosinophil abs 0.0 0.0 - 0.5 K/cumm [...] revised on 2017. Blood 07/22/2024 8:48 AM ROTARY SCREEN PRINTING 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 07/22/2024 8:50 AM ROTARY SCREEN PRINTING 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 us Mike Suarez MD LAB BLOOD ORDERABLES Final R esult [facility] ([place]) [address] [facility] Department [place] [address] * (ABNORMAL) CBC with auto differential (07/22/2024 8:48 AM ROTARY SCREEN PRINTING 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) WBC 10.3(H) 3.8 - 9.9 K/cumm Hgb [...] [facility] ([place]) Blood 07/22/2024 8:48 AM ROTARY SCREEN PRINTING 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 07/22/2024 8:50 AM ROTARY SCREEN PRINTING 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 Mike Suarez MD LAB BLOOD ORDERABLES Final R esult [facility] ([place]) [address] [facility] [place] [address] * Magnesium (07/22/2024 8:48 AM ROTARY SCREEN PRINTING 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) Magnesium 1.6 1.4 - 2.5 mg/dL Comment:Anai Truong (ER) Blood 07/22/2024 8:48 AM ROTARY SCREEN PRINTING 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 07/22/2024 8:50 AM ROTARY SCREEN PRINTING 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 Mike Suarez MD LAB BLOOD ORDERABLES Final R esult [facility] ([place]) [address] Department [place] [address] * (ABNORMAL) Comprehensive metabolic panel (07/22/2024 8:48 AM ROTARY SCREEN PRINTING 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) Sodium 130(L) 135 - 145 mmol/L Comment:Anai Truong (ER) Potassium, pl 3.0(C) 3.3 - 4.9 mmol/L [facility] ([place]) Comment:Critical Result call ed by [email or web address] at 2024-07-22 09:20:43. Result Read Back by Anai Truong (ER) Chloride 89(L) 97 - 110 mmol/L [facility] ([place]) Comment:Anai Truong (ER) CO2 28 22 - 32 mmol/L [facility] ([place] Comment:Anai Truong (ER) Anion gap 13 2 - 15 mmol/L [facility] ([place]) Comment:Anai Truong (ER) BUN 10 6 - 25 mg/dL [facility] ([place]) Comment:Anai Truong (ER) Creatinine 0.78 0.60 - 1.10 mg/dL [facility] ([place]) Comment:Anai Truong (ER) Glucose 139 70 - 199 mg/dL [facility] ([place]) Comment: Anai Truong (ER) Interpretive Data [...] classification and Diagnosis of Diabetes Diabetes Care 202; 46: S19-S40. Current interpretive data was last revised 2022. Calcium 9.7 8.5 - 10.3 mg/dL [facility] ([place]) Comment:Anai Truong (ER) Bilirubin, total 0.6 0.1 - 1.2 mg/dL [facility] ([place]) Comment:Anai Truong (ER) Protein, pl 8.2 6.5 - 8.5 g/dL [facility] ([place]) Comment:Anai Truong (ER) Albumin 4.1 3.5 - 5.0 g/dL [facility] ([place]) Comment:Anai Truong (ER) Alk phos 162(H) 40 - 130 Units/L [facility] Comment:Anai Truong (ER) ALT 18 7 - 45 Units/L [facility] Comment:Anai Truong (ER) AST 29 10 - 45 Units/L [facility] ([place]) Comment:Anai Truong (ER) Blood 07/22/2024 8:48 AM ROTARY SCREEN PRINTING 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 07/22/2024 8:50 AM ROTARY SCREEN PRINTING 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 Mike Suarez MD LAB BLOOD ORDERABLES Final R esult [facility] [address] [facility] Department [place] [address] * Influenza A/B, RSV, and COVID-19 PCR Nasopharyngeal (07/22/2024 8:41 AM ROTARY SCREEN PRINTING 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) COVID-19 RNA Negative Negative Influenza A RNA Negative Negative [facility]) Influenza B RNA Negative Negative [facility] ([place]) RSV RNA Negative Negative [facility] Comment: Interpretive data: Testing performed by [facility]. This test is performed using the [employer] Xpert Xpress CoV-2/Flu/RSV plus assay. This is a multiplex, real- time reverse transcriptase PCR assay intended for the qualitative detection of nucleic acid from SARS-CoV-2, influenza A, influenza B, and respiratory syncytial virus. This assay has been cleared by the [place] Food and Drug administration. The performance characteristics have been verified by the [facility]. Results must be considered in the clinical context, and a negative result does not rule out infection. Interpretive Data last revised 2023 Nasopharyngeal 07/22/2024 8: 41 AM ROTARY SCREEN PRINTING 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 07/22/2024 8:43 AM ROTARY SCREEN PRINTING 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 Narrative [facility] ([place] - 07/22/2024 9:24 AM ROTARY SCREEN PRINTING 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 Is the Patient experiencing symptoms consistent with COVID?->Yes Mike Suarez MD LAB MICROBIOLOGY - GENERAL O RDERABLES Final Result [facility] ([place]) 1 [facility] Department [place] [address] * Serum Hepatitis C ab (11/01/2014 8:32 AM ROTARY SCREEN PRINTING 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) HCV ab Negative NEG HISTORICAL RESULTS Serum 11/01/2014 8:32 AM ROTARY SCREEN PRINTING 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 Narrative HISTORICAL RESULTS - 11/02/2014 3:46 AM ROTARY SCREEN PRINTING 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 Interpretive Data If confirmation is required, call Laboratory Customer Service to request sample to be sent to [facility] for Hepatitis C Virus (HCV) RNA Detection and Quantitation by Real-Time Reverse Crushing Foreman-PCR (RT-PCR). Current interpretive data was last revised on 2011 Fariha Whitley MD LAB BLOOD ORDERABLES Final R esult Performing Organization Address City/[facility]/ZIP Co de Phone Number HISTORICAL RESULTS * DIGITAL MAMMOGRAPHY (12/11/2013 11:01 AM CDT) Anatomical Region Laterality Modality Breast Mammography 12/11/2013 11:0 1 AM CDT Narrative 12/12/2013 12:15 AM CDT Vm Mammogram Performed by: Screening Mamm Bi Acc#: [id number] DATE OF EXAM: Dec 11 2013 CLINICAL [...] Performed by: LT Screening Mamm Bi Acc#: [id number] DATE OF EXAM: Dec 11 2013 CLINICAL [...] ADAMS Attending DR: MARIAH ADAMS Historical Provider IMG MAMMO PROCEDURES Kristal l Result from Last 3 Months or Most Recently Relevant to Health Maintenance Insurance [place] [id number] [place] ADVANTAGE CHOICE PPO Advance Directives For more information, please contact: [phone] * Full Code (Latest Code Status on File) Date Activated Date Inactivated Comments 11/22/2023 6:25 PM 11/25/2023 11:09 PM * Full Code Date Activated Date Inactivated Comments 12/21/2022 5:34 PM 12/24/2022 8:16 PM * Full Code Date Activated Date Inactivated Comments 11/10/2022 4:25 PM 11/11/2022 3:51 PM * Full Code Date Activated Date Inactivated Comments 05/04/2022 1:38 PM 05/05/2022 6:47 PM Care Teams Open Winder Relationship Specialty Start Date End Date Mariah Adams MD [address] [place] [address] [place] [address] PCP - General Internal Medicine 08/19/20 Mitchell Zamarripa MD [address] [place] [address] Referring Physician Rheumatology 03/11/22 Brit More NP [address] [place] [address] Nurse Practitioner Cardiovascular Disease 03/11/22 Cliff Ronquillo NP [address] [place] [address] DR [facility]O [facility] [place] [address] Nurse Practitioner Nurse Practitioner 05/05/22 Dick Aguilar PA [address] [place] [address] DR QUINTERO [facility] [place] [address] Physician Vat Overhauler Orthopedic Surgery 11/11/22 Gavin Sewell MD [address] [place] [address] DR CARLOS QUINTERO [address] [place] [address] Surgeon Orthopedic Surgery 12/24/22
--- OUTSIDE RECORDS SUMMARY | 2024-10-08 13:23 | XMS_ITS | Clinical Summary ---
Author Organization [facility] Address [address] [place] [address] Phone Care Team Providers Care Bank Officer Name Role Phone JAM MCDONNELL PA-C Primary Care Provider [phone] Reason for Visit and Chief Complaint ECHOCARDIOGRAM [...] Check-Out Time Diagnosis ECHOCARDIOGRAM ELTON GROVER MD [facility] OP HRT 08/02/20 23 8:35AM 9:29AM Insurance Includes: Active Insurance Policies Plan Name Member ID Group # Subscriber Relationship Effect cyn Dates 1 - [place] MEDICARE ADVANTAGE [id number] NIGHAT DELANEY Self Clinical Notes Includes: Clinical Notes from this encounter No Clinical Notes Recorded
--- OUTSIDE RECORDS SUMMARY | 2024-10-08 13:23 | XMS_ITS | Clinical Summary ---
Author Organization [facility] Address [address] [place] [address] Phone Care Team Providers Care Senior Clinical Research Scientist Name Role Phone JAM MCDONNELL PA-C Primary Care Provider [phone] Reason for Visit and Chief Complaint LEXISCAN [...] Time Diagnosis LEXISCAN CARDIOLITE ELTON GROVER MD [facility] OP HRT 08/02/20 23 9:30AM 11:24AM Insurance Includes: Active Insurance Policies Plan Name Member ID Group # Subscriber Relationship Effect cyn Dates 1 - [place] MEDICARE ADVANTAGE [id number] NIGHAT DELANEY Self Clinical Notes Includes: Clinical Notes from this encounter No Clinical Notes Recorded
--- OUTSIDE RECORDS SUMMARY | 2024-10-08 13:23 | XMS_ITS | Clinical Summary ---
Author Organization [facility] Address [address] [place] [address] Phone Care Team Providers Care Bench Precision Assembler Name Role Phone Jose Cruz Ledezma Primary Care Provider [phone] Allergies Active Allergy Reactions Criticality Noted Date [...] age to complete this topic Insurance MEDICARE [place] [id number] [employer] GENERIC Care Teams Bench Precision Assembler Relationship Specialty Start Date End Date Jose Cruz Ledezma PAC [address] [place] [address] PCP - General Physician Golf Tournament Consultant 01/28/20
--- OUTSIDE RECORDS SUMMARY | 2024-10-08 13:23 | XMS_ITS | Clinical Summary ---
Author Organization [facility] Address [address] [place] [address] Phone Care Team Providers Care Rouge Sifter And Miller Name Role Phone JAM MCDONNELL PA-C Primary Care Provider [phone] Reason for Visit and Chief Complaint HEART [...] Diagnosis HEART CENTER FOLLOW UP TIFFANY HOWARD [facility]- 3 1:47PM 2:40PM Insurance Includes: Active Insurance Policies Plan Name Member ID Group # Subscriber Relationship Effect cyn Dates 1 - [employer] MEDICARE ADVANTAGE [id number] NIGHAT DELANEY Self Clinical Notes Includes: Clinical Notes from this encounter No Clinical Notes Recorded
== END 2024-10-08 13:08 | disposition home or self-care (01) ==
LOC: ANHBWCIMG 13:10
PROVIDERS: PCP Internal Medicine; Visit Provider Orthopaedic Surgery
DX: S52.591A Other fractures of lower end of right radius, initial encounter for closed fracture (principal); S52.692A Other fracture of lower end of left ulna, initial encounter for closed fracture; X58.XXXA Exposure to other specified factors, initial encounter
CPT/HCPCS: 73110

== ENCOUNTER 2024-10-09 12:09 | Outpatient (CLI) | payer OTHER, SELFPAY ==
--- NOTE | 2024-10-09 12:22 | ECG_ITS ---
Test Date: 2024-10-09 12:34:57 Measurements Intervals [place] Rate: 73 P: 45 [place]: 171 QRS: 10 QRSD: 95 T: 1 QT: 401 QTc: 443 Interpretive Statements SINUS RHYTHM CONSIDER INFERIOR INFARCT, AGE INDETERMINATE NONSPECIFIC ST & T-WAVE ABNORMALITY- ANTEROLATERAL LEADS BASELINE ARTIFACT- I, II, III, AVR, AVL, AVF, V3-V6 ABNORMAL ECG No previous ECG available for comparison Electronically Signed On 10-09-2024 12:51:28 DIRECTOR OF VOCATIONAL GUIDANCE by Tristian Price D.O.
[2024-10-09 13:15] LABS: Anion Gap 9 mmol/L (4-12); Blood Urea Nitrogen 11 mg/dL (7-17); Calcium 9.9 mg/dL (8.4-10.2); Carbon Dioxide 30 mmol/L (22-30); Chloride 93 mmol/L (98-107); Estimated Glomerular Filt Rate > 60; Glucose 115 mg/dL (65-110); Potassium 3.1 mmol/L (3.4-5.0); Sodium 132 mmol/L (137-145)
--- OUTSIDE RECORDS SUMMARY | 2024-10-09 13:16 | XMS_ITS | Clinical Summary ---
Author Organization [facility] Address [address] [place] [address] Care Team Providers Care Professor Of Communication And Writing Name Role Phone Shandra Ruffin Malcolm WISDOM-AIRCRAFT STRUCTURE MECHANIC Primary Care Provider Source Comments [facility],non-owned Affiliates and Associated Physician Practices is amultiple site organization consisting of ambulatory clinics and hospital sitesin [place], [place], [place] and [place]. This disclosure is being madepursuant to the Care Everywhere program and may not contain all information available regarding this patient. Last updated 18.[facility] Allergies Active Allergy Reactions Criticality Noted Date [...] LURIA, FLUZONE TRIVALENT; 6MO+) (IIV3) 06/16/2016,06/11/2015,06/01/2014,2012,06/14/2012,06/01/2011 Covid [employer] primary monoval ent 12+ yr 0.3mL Purple [...] Comments COMPREHENSIVE METABOLIC PANEL 08/31/2022 9:26 AM MAINSTREAMING FACILITATOR from Last 3 Months or Most Recently Relevant to Health Maintenance Results * (ABNORMAL) COMPREHENSIVE METABOLIC PANEL (08/31/2022 9:26 AM MAINSTREAMING FACILITATOR) Glucose 105(H) 65 - 99 mg/dL [facility] [...] 29 U/L [facility] Comment: Test Performed at: [facility] [address] [place] [address] LUISA LAWRENCE DO,MPH 08/31/2022 9:26 AM MAINSTREAMING FACILITATOR 08/31/2022 9:27 AM MAINSTREAMING FACILITATOR Mitchell Zamarripa MD LAB - CHEMISTRY INGRID DE GU[place] [facility] [address] [place] [address] from Last 3 Months or Most Recently Relevant to Health Maintenance Advance Directives * FULL RESUSCITATION (Latest Code Status on File) Date Activated Date Inactivated Comments 11/08/2011 12:50 PM 11/10/2011 12:21 AM Care Teams Professor Of Communication And Writing Relationship Specialty Start Date End Date Shandra Ruffin, ASSOCIATE PROFESSOR OF MUSICOLOGY-AIRCRAFT STRUCTURE MECHANIC [address] [place] [phone] PCP - General 04/02/22
--- OUTSIDE RECORDS SUMMARY | 2024-10-09 13:16 | XMS_ITS | Referral Summary ---
Author Organization [facility] Address [address] [place] [address] Care Team Providers Care Acute Dialysis Registered Nurse Name Role Phone Shandra Ruffin Malcolm WISDOM-PAINT PROCESS ENGINEER Primary Care Provider Source Comments [facility],non-owned Affiliates and Associated Physician Practices is amultiple site organization consisting of ambulatory clinics and hospital sitesin [place], [place], [place] and [place]. This disclosure is being madepursuant to the Care Everywhere program and may not contain all information available regarding this patient. Last updated 18.[facility] Allergies Active Allergy Reactions Criticality Noted Date [...] LURIA, FLUZONE TRIVALENT; 6MO+) (IIV3) 06/16/2016,06/11/2015,06/01/2014,2012,06/14/2012,06/01/2011 Covid [employer] primary monoval ent 12+ yr 0.3mL Purple [...] Comments COMPREHENSIVE METABOLIC PANEL 08/31/2022 9:26 AM BOOK SEWING 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 from Last 3 Months or Most Recently Relevant to Health Maintenance Results * (ABNORMAL) COMPREHENSIVE METABOLIC PANEL (08/31/2022 9:26 AM BOOK SEWING 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) Glucose 105(H) 65 - 99 mg/dL [facility] [...] 29 U/L [facility] Comment: Test Performed at: [facility] [address] [place] [address] LUISA LAWRENCE DO,MPH 08/31/2022 9:26 AM BOOK SEWING 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 08/31/2022 9:27 AM BOOK SEWING 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 Mitchell Zamarripa MD LAB - CHEMISTRY INGRID DE GUZMAN [facility] Organization Address City/State/ZIP Co de Phone Number [facility] [address] [place] [address] from Last 3 Months or Most Recently Relevant to Health Maintenance Advance Directives * FULL RESUSCITATION (Latest Code Status on File) Date Activated Date Inactivated Comments 11/08/2011 12:50 PM 11/10/2011 12:21 AM Care Teams Acute Dialysis Registered Nurse Relationship Specialty Start Date End Date Shandra Ruffin, SKIP TRACER-PAINT PROCESS ENGINEER [address] [place] [phone] PCP - General 04/02/22
[2024-10-09 13:17] LABS: Digoxin < 0.5 ng/mL (0.8-2.0)
--- OUTSIDE RECORDS SUMMARY | 2024-10-09 13:17 | XMS_ITS | Clinical Summary ---
Author Organization [facility] Address [address] [place] [address] Phone Care Team Providers Care Office Services Coordinator Name Role Phone JAM MCDONNELL PA-C Primary Care Provider [phone] Reason for Visit and Chief Complaint LEXISCAN [...] Time Check-Out Time Diagnosis LEXISCAN CARDIOLITE ELTON GORVER MD [facility] OP HRT 08/02/20 23 9:30AM 11:24AM Insurance Includes: Active Insurance Policies Plan Name Member ID Group # Subscriber Relationship Effect cyn Dates 1 - [employer]UE CROSS MEDICARE ADVANTAGE [id number] NIGHAT DELANEY Self Clinical Notes Includes: Clinical Notes from this encounter No Clinical Notes Recorded
--- OUTSIDE RECORDS SUMMARY | 2024-10-09 13:17 | XMS_ITS | Encounter Summary ---
Author Organization [facility] Address [address] [place] [address] Care Team Providers Care Refuse Laborer Name Role Phone Yg Lee MD Primary Care Provider + Mitchell Zamarripa MD Unavailable [phone] Brit More NP Unavailable [phone] Cliff Ronquillo NP Unavailable [phone] Dick Aguilar Unavailable [phone] Gavin Sewell MD Unavailable [phone] Encounter Details Date Type Department Care Team (Late st Contact Info) Description 12/14/2021 Telephone [facility] [address] [place] [address] Fariha Hampton, RT Social History Tobacco Use Types Packs/Day Years Used Date Smoking Tobacco: Former Smokeless Tobacco: Never Alcohol Use Standard Drinks/Week Comments Yes 0 (1 standard drink = 0.6 oz pur e alcohol) occasional Comments No Sex and Gender Information Value Date Recorded Sex Assigned at Not on file Legal Sex Female 11:50 PM WARDROBE ASSISTANT Gender Identity Not on file Sexual Orientation [...] COVID: Suspected 07/22/2024 07/22/2024 07/22/2024 9:25 AM WARDROBE ASSISTANT documented as of this encounter Care Teams Refuse Laborer Relationship Specialty Start Date End Date Yg Lee MD [address] [place] [address] PCP - General Internal Medicine 08/19/20 Mitchell Zamarripa MD [address] [place] [address] Referring Physician Rheumatology 03/11/22 Brit More NP [address] [place] [address] Nurse Practitioner Cardiovascular Disease 03/11/22 Cliff Ronquillo NP [address] [place] [address] Nurse Practitioner Nurse Practitioner 05/05/22 Dick Aguilar PA [address] [place] [address] Physician Boring Mill Operator For Metal Orthopedic Surgery 11/11/22 Gavin Sewell MD [address] [place] [address] Surgeon Orthopedic Surgery 12/24/22 documented as of this encounter
--- OUTSIDE RECORDS SUMMARY | 2024-10-09 13:17 | XMS_ITS | Clinical Summary ---
Author Organization [facility] Address [address] [place] [address] Care Team Providers Care Welder/Installer Name Role Phone Yg Lee MD Primary Care Provider [phone] Allergies Active Allergy Reactions Criticality Noted Date [...] (Dexilant) 60 mg Delayed Release capsule Lot: [id number] Ex: 10/21 Qty: 8 5 Capsule Active [...] on 04/05/2024 fluticasone propionate (FLONASE) 50 mcg/spray [place], Suspension nasal inhaler USE 1 OR 2 [...] Active apixaban (ELIQUIS) 5 mg tablet Lot: [id number] ex: 05/2025 qty: 8 14 Tablet Active [...] t be different from the original. [facility] [id number] 09/01/22 Problem Noted Date Diagnosed Date Pulmonary [...] Type Department Care Team Description 10/05/[address] [place] [address] Yg Lee MD Needs Appointment 09/20/2024 External Device Data [facility] ABSTRACTION Provider, Abstract 09/19/[address] [place] [address] Yg Lee MD Essential hypertension, benign 09/11/2024 External Device Data [facility] ABSTRACTION Provider, Abstract 08/21/[address] [place] [address] Provider, Abstract 08/16/[address] [place] [address] Yg Lee MD Other specified anxiety disorders 08/15/2024 Telephone [facility] [address] [place] [phone] Yg Lee MD Provider Call 08/01/2024 Telephone [facility] [address] [place] [address] Yg Lee MD Referral 07/31/2024 Telephone [place] [address] [place] [address] Yg Lee MD Results 07/31/2024 Orders Only [facility] [address] [place] [address] Gisselle Bell Hepatomegaly 07/24/2024 Telephone [facility] [address] [place] [address] Yg Lee MD Provider Call 07/19/2024 Telephone [facility] [address] [place] [address] Yg Lee MD Provider Call; Provider Call; Provider Call; Provider Call 07/14/2024 Refill [facility] [address] [place] [address] Yg Lee MD from Last 3 Months Immunizations Immunization Administration Dates Next Due (ADACEL/BOOSTRIX)(10 YR UP) TDAP VACCINE, 0.5ML, IM 06/15/2011 (PFIZER)(12 YR UP) COVID-19 VACCINE - EMERGENCY USE AUTHORIZATION, MRNA, [id number](PF) 30 MCG/0.3 ML IM SUSP 04/22/2021,04/01/2021 (PNEUMOVAX 23)(50 YRS UP) PN EUMOCOCCAL POLYSACCHARIDE (PPV23) 0.5 ML, IM 07/18/2017,06/15/2011 (PREVNAR 13)(6 WKS UP) PNEUM OCOCCAL CONJUGATE (PCV13) 0.5 ML, IM 10/20/2020 (PREVNAR 20)(6 WKS UP) PNEUM OCOCCAL CONJUGATE VACCINE 20-VALENT (PCV20), POLYSACCHARIDE [id number] CONJUGATE, ADJUVANT 0.5 ML (PF) IM 02/23/2023 [...] on file Legal Sex Female 6:04 AM LIME KILN WORKER HELPER Gender Identity Not on file Sexual Orientation [...] history exists Medical Devices Implanted Type Area Maintenance Service Dispatcher Device Identifier Shelf Expiration Date Model / Serial / Lot Stent Pncrtc Frmn Flx 5fr 5cm 6552 - [id number] Implanted:Qty: 1 on 02/24/2018 by John White MD at [facility] Stent N/A: Pancreas [employer] [id number] 09/29/2022 [id number] / / [id number] Procedures Procedure Name Priority Date/Time Associated [...] A1C 5.2 <5.7 % of total Hgb [facility]ana Comment: For the purpose of screening for the presence of diabetes: <5.7% Consistent with the absence of diabetes 5.7-6.4% Consistent with increased risk for diabetes (prediabetes) > or =6.5% Consistent with diabetes This assay result is consistent with a decreased risk of diabetes. Currently, no consensus exists regarding use of hemoglobin A1c for diagnosis of diabetes in children. According to [place] Diabetes Association (ADA) guidelines, hemoglobin A1c <7.0% represents optimal control in non- diabetic patients. Different metrics may apply to specific patient populations. Standards of Medical Care in Diabetes(ADA). ESTIMATED AVERAGE GLUCOSE (MG/DL) 103 mg/dL [facility]ana ESTIMATED AVERAGE GLUCOSE (MMOL/L) 5.7 mmol/L [facility] Santana Comment: FASTING:YES FASTING: YES Test [facility]formed at: [facility] [address] [place] [address] [facility] Blood 06/15/2024 9:16 AM CDT 06/15/2024 9:17 AM CDT us Yg Lee MD CHEMISTRY ORDERABLES Final Re sult [facility] [phone] [facility] [address] [place] [address] * MAMMO 3D KIRILL SCREEN BILAT W [...] BI-RADS CATEGORY 1 - Negative. DICTATION LOCATION: [facility] Yg Lee MD MAMMO ORDERABLES Final Result from Last 3 Months or Most Recently Relevant to Health Maintenance Insurance RX [employer] RX Member Subscriber Plan / Payer (Ef fective 2020-Present) Name:Antoinette Da Silva Relation to Subscriber:Self Name:Antoinette Da Silva Payer ID:Not on file Type:RX Commercial Address: [place] MEDICARE Advance Directives For more information, please contact: [phone] Documents on File Type Date Recorded Patient Fiberglass Container Winding Operator Expl anation Advance Directive Living Will 10/20/2020 [...] 12:41 PM 10/31/2015 7:49 PM Care Teams Welder/Installer Relationship Specialty Start Date End Date Yg Lee MD PCP - General Internal Medicine 12/20/18
--- OUTSIDE RECORDS SUMMARY | 2024-10-09 13:17 | XMS_ITS | Clinical Summary ---
Author Organization [facility] Address [address] [place] [address] Phone Care Team Providers Care Groundman/Lineman Name Role Phone Jose Cruz Ledezma Primary Care Provider [phone] Allergies Active Allergy Reactions Criticality Noted Date [...] age to complete this topic Insurance MEDICARE [employer] GENERIC Care Teams Groundman/Lineman Relationship Specialty Start Date End Date Jose Cruz Ledezma PAC [address] [place] [address] PCP - General Physician Land Survey Technician 01/28/20
--- OUTSIDE RECORDS SUMMARY | 2024-10-09 13:17 | XMS_ITS ---
Care Plan - [facility] Created on: October 09, 2024 NIGHAT DELANEY : 1960 Sex: Female Author Organization [facility] Address [address] [place] [address] Phone Care Team Providers Care Surgical Product Sales Consultant Name Role Phone JAM MCDONNELL PA-C Primary Care Provider [phone]
--- OUTSIDE RECORDS SUMMARY | 2024-10-09 13:17 | XMS_ITS ---
Author Organization [facility] Address [address] [place] [address] Phone Care Team Providers Care Electronics Tech Name Role Phone JAM MCDONNELL PA-C Primary Care Provider [phone] Plan of Treatment No Plan of Treatment [...] On 07/08/2010 5:57PM By ALVIN BASS ; [facility] Premarin 1.25 MG OR TABS 09/02/2009 - 08/28/2010 Provi anastasia: Diagnosis: Last Documented On 11/11/2009 9:36AM By BONNIE MORALES ; [facility] Premarin 1.25 MG OR TABS 07/23/2008 - 07/18/2009 Provi anastasia: Diagnosis: Last Documented On 11/11/2009 9:37AM By BONNIE MORALES ; [facility] Amoxicillin 500 MG OR TABS 07/03/2007 - 07/13/2007 Pro vider: Diagnosis: Last Documented On 11/11/2009 9:38AM By BONNIE MORALES ; [facility] Premarin 1.25 MG OR TABS 07/05/2006 - 06/30/2007 Provi anastasia: Diagnosis: Last Documented On 11/11/2009 9:39AM By BONNIE MORALES ; [facility] Premarin 1.25 MG OR TABS 08/27/2005 - 07/23/2006 Provi anastasia: Diagnosis: Last Documented On 11/11/2009 9:40AM By BONNIE MORALES ; [facility] Medications Administered Includes: Administered Medications in patient's chart No Administered Medications Recorded Results Includes: Results from 10/09/2023 through 10/09/2024 No Results Recorded For Specified Dates History of Present Illness History of Present Illness not supported for this document type No History of Present Illness Recorded Social History Description Last Updated 11/11/2009 Last Documented On 0 9:43AM ; [facility] Exercise frequency was three times/week 11/11/2009 Last Documented On 0 9:43AM ; [facility] Exercising regularly 11/11/2009 Last Documented On 0 9:43AM ; [facility] Sexually active 11/11/2009 Last Documented On 0 9:43AM ; [facility] Sexually active with 1 partners in the l ast year 11/11/2009 Last Documented On 0 9:43AM ; [facility] Smoking Status Unknown Procedures and Surgical History Includes: Procedures from 10/09/2023 through 10/09/2024 Procedures Code Diagnosis Performing Provider Service Location Service Date CLINIC FACILITY FEE (Signi/Sep Eval & Man) G0463 Nonrheumatic mitral (valve) insufficiency, Paroxysmal atrial fibrillation, Obstructive sleep apnea (adult) (pediatric), Essential (primary) hypertension [facility] 12/13/2023 Last Documented On 4 2:24PM ; [facility] CLINIC FACILITY FEE (Signi/Sep Eval & Man) 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, Sleep apnea, unspecified, Supraventricular tachycardia, unspecified [facility] 11/14/2023 Last Documented On 4 12:05PM ; [facility] Medical History Includes: Medical History in patient's chart Description Last Updated HYSTERECTOMY ~BTL 11/11/2009 Last Documented On 0 9:43AM ; [facility] 2 living children 11/11/2009 Last Documented On 0 9:43AM ; [facility] A mammogram was performed 11/11/2009 Last Documented On 0 9:43AM ; [facility] A Pap smear was performed 11/11/2009 Last Documented On 0 9:43AM ; [facility] weight: was 7.4 lbs 11/11/2009 Last Documented On 0 9:43AM ; [facility] Breast problems 11/11/2009 Last Documented On 0 9:43AM ; [facility] Delivery date 1983 11/11/2009 Last Documented On 0 9:43AM ; [facility] Duration of labor: was six hr 11/11/2009 Last Documented On 0 9:43AM ; [facility] Gestational age: was 40 weeks 11/11/2009 Last Documented On 0 9:43AM ; [facility] 2 11/11/2009 Last Documented On 0 9:43AM ; [facility] History of the 2nd : 11/11/2009 Last Documented On 0 9:43AM ; [facility] Last mammogram date: 07/19/08 11/11/2009 Last Documented On 0 9:43AM ; [facility] Last pap smear date 200711/11/2009 Last Documented On 0 9:43AM ; [facility] Oral contraceptives 11/11/2009 Last Documented On 0 9:43AM ; [facility] Status post tubal ligation 11/11/2009 Last Documented On 0 9:43AM ; [facility] Family History Includes: Family History in patient's chart Description Last Updated Family history of Cancer 11/11/2009 Last Documented On 0 9:43AM ; [facility] Family history of thyroid disease 2009 Last Documented On 0 9:43AM ; [facility] Family medical history of high blood pre ssure 11/11/2009 Last Documented On 0 9:43AM ; [facility] Review of Systems Review of Systems not supported for this document type No Review of Systems Recorded Mental Status No Mental Status Recorded Functional Status No Functional Status Recorded Physical Exam Physical Exam not supported for this document type No Physical Exam Recorded Allergies Includes: Active, inactive, and resolved Allergies No Known Allergies Encounters Includes: Encounters from 10/09/2023 through 10/09/2024 Encounter Provider Location Date Check-In Time Check- Out Time Diagnosis HOSPITAL FOLLOW UP EXAM TIFFANY SAUCEDO ANP [facility] 4 12:43PM 1:47PM [facility] CHECK UP TIFFANY HOWARD [facility]- 4 10:58AM 11:28AM Insurance Includes: Active Insurance Policies Plan Name Member ID Group # Subscriber Relationship Effect cyn Dates 1 - [employer] [id number] NIGHAT Guevara Clinical Notes Includes: Signed Clinical Notes starting from 09/17/2022 No Clinical Notes Recorded
--- OUTSIDE RECORDS SUMMARY | 2024-10-09 13:17 | XMS_ITS | Referral Summary ---
Author Organization [facility] Address [address] [place] [address] Care Team Providers Care Pot Tender Name Role Phone Mariah Adams MD Primary Care Provider + Mitchell Zamarripa MD Unavailable [phone] Brit More GUIDE [employer]EIGN TOUR Unavailable [phone] Cliff Ronquillo NP Unavailable [phone] Dick Aguilar Unavailable [phone] Gavin Sewell MD Unavailable [phone] Encounters Date Type Department Care Team Description 09/10/2024 9:15 AM [facility]OLF [facility] FACER - 09/10/2024 10:45 AM [facility]OLF [facility]UB FACER Surgery [facility] Operating Room [address] [place] [address] Vignesh Hawkins MD LAPAROSCOPIC CHOLECYSTECTOMY 09/10/2024 9:16 AM [facility] FACER Anesthesia Event [facility] Operating Room [address] [place] [address] Tonia Gutierrez MD Reynolds, Ethan Emerson, MD 09/10/2024 8:13 AM G[facility]F CL[facility] FACER - 09/10/2024 2:39 PM [facility]OL[facility] FACER Hospital Encounter [facility] Operating Room [address] [place] [address] Vignesh Hawkins MD Calculus of gallbladder with cholecystitis without biliary obstruction, unspecified cholecystitis acuity Discharge Disposition: Discharge to home or self care 08/14/2024 9:30 AM [facility] FACER Office Visit [facility] [address] [facility] [address] [place] [id number] Vignesh Hawkins MD Calculus of gallbladder with cholecystitis without biliary obstruction, unspecified cholecystitis acuity 07/24/2024 7:58 AM [facility] FACER - 07/24/2024 11:59 PM [facility] FACER Hospital Encounter [facility] [address] [place] [address] Hepatomegaly, not elsewhere classified; Hepatomegaly Discharge Disposition: Discharge to home or self care 07/22/2024 8:25 AM GOLF [employer] FACER - 07/22/2024 10:10 AM GOLF CLUB FACER Emergency [facility] Emergency Department [address] [place] [address] Mike Suarez MD Bronchitis (Primary Dx) Discharge [...] 1 tablet (100 mcg total) by mouth elevators inspector before breakfast 1 Active celecoxib (CeleBREX) 100 [...] 08/14/2024 Assessment & Plan (08/14/2024 9:48 AM GOLF [facility] FACER): The patient likely has chronic cholecystitis given [...] atrial fibrillation 11/25/2023 ACS (acute coronary syndrome) ([facility]/HCC) 11/23/19 24 Persistent atrial fibrillation 11/22/2023 [...] (04/23/2022): Added automatically from request for surgery [id number] Posterior tibial tendon dysfunction 03/02/2022 Flat foot [...] 01/04/2018 Assessment & Plan (09/19/2018 1:30 PM GOLF [employer] FACER): Low disease activity today on exam. Take [...] often do you attend chur ch or evangelical services? Never 12/23/2022 Do you belong to any clubs o r organizations such as yazidi groups, unions, fraternal or athletic groups, or [...] staff should administer the PHQ-9) 0 11/23/2023 [facility] - Occupational Stress [...] place to sleep or slept in a care home (including now)? No 12/23/2022 Personal Safety Answer Date Recorded Have you ever been in or are you currently in a harmful physical or emotional relationship or is someone making you feel afraid or unsafe? Denies 09/10/2024 Comments No Sex and Gender Information Value Date Recorded Sex Assigned at Not on file Legal Sex Female 11:50 PM [facility] FACER Gender Identity Not on file Sexual Orientation Not on file Last Filed Vital Signs Vital Sign Reading Time Taken Comments Blood Pressure 119/69 09/10/2024 2:00 PM G[facility] [employer] FACER Pulse 69 09/10/2024 2:00 PM [facility]F [employer] FACER Temperature 36.4 C (97.6 F) 09/10/2024 2:00 PM [facility]OLF [facility] FACER Respiratory Rate 16 09/10/2024 2:00 PM GOLF [facility] FACER Oxygen Saturation 94% 09/10/2024 2:00 PM GOLF [facility] FACER Inhaled Oxygen Concentration - - Weight 67.6 kg (149 lb 0.5 oz) 09/10/2024 8:15 A M [facility] [employer] FACER Height 154.9 cm (5' 1 ) 09/10/2024 8:15 AM [facility]OLF [facility] FACER Body Mass Index 28.16 09/10/2024 8:15 AM GOLF [facility] FACER Plan of Treatment Not on file Medical Devices Implanted Type Area Manager Beauty Device Identifier Shelf Expiration Date Model / Serial / Lot Exactech Restrictor Cement Cemex Small Od13mm Tpa-13 - [id number] Implanted:Qty: 1 on 05/04/2022 by Gavin Sewell MD at [facility] Left: Shoulder Exactech 08/28/2023 TPA-13 / / [id number] Exactech Equinoxe Reverse Shoulder +0mm Tray Humeral Adapter 32010-00 - [id number] - [id number] Implanted:Qty: 1 on 05/04/2022 by Gavin Sewell MD at [facility] Ex[employer]ech [id number] 04/07/2032 320-1000 / [id number] / Exactech Equinoxe 40mm Small Reverse Constrain Shoulder +2.5mm Liner 320-40-13 - [id number] - [id number] Implanted:Qty: 1 on 05/04/2022 by Gavin Sewell MD at [facility] 01/31/2024 320-40-13 / [id number] / Exactech Equinoxe Lock Reverse Shoulder Glenosphere Screw Bone 320-15-05 - [id number] - [id number] Implanted:Qty: 1 on 05/04/2022 by aGvin Sewell MD at [facility] Left: Shoulder Exactech 03/09/2027 320-15- / [id number] / Exactech Reverse Torque Define Shoulder Kit Screw 320-20-00 - [id number] - [id number] Implanted:Qty: 1 on 05/04/2022 by Gavin Sewell MD at [facility] Left: Shoulder [employer]ech 02/03/2027 320-20-00 / [id number] / Exactech Equinoxe Small Reverse Superior Posterior Augment Shoulder Left 320-35-07 - [id number] - [id number] Implanted:Qty: 1 on 05/04/2022 by Gavin Sewell MD at [facility] Left: Shoulder [employer]ech [id number] 04/08/2031 320-35-07 / [id number] / Exactech Equinoxe 10mm Stem Humeral Sterile 300-09-07 - [id number] - [id number] Implanted:Qty: 1 on 05/04/2022 by Gavin Sewell MD at [facility] Left: Shoulder Exactech [id number] 09/07/2031 300-09-07 / [id number] / [employer] Cement Bone Simplex Gentamicin High Viscosity 40gm 6195-1-001 - [id number] Implanted:Qty: 1 on 05/04/2022 by Gavin Sewell MD at [facility] Left: Shoulder [employer] 09/28/2023 6195-1-001 / / [id number] Exactech Equinoxe 40mm 24.3mm Small Reverse Shoulder Sphere Glenoid 320-31-40 - [id number] - [id number] Implanted:Qty: 1 on 05/04/2022 by Gavin Sewell MD at [facility] Left: Shoulder Exactech [id number] 12/11/2030 320-31-40 / [id number] / Exactech Equinoxe 4.5mm 38mm Kit Compression Lock Cap Reverse Shoulder 320-20-38 - [id number] - [id number] Implanted:Qty: 1 on 05/04/2022 by Gavin Sewell MD at [facility] Left: Shoulder [employer]ech [id number] 01/12/2027 320-20-38 / [id number] / Exactech Equinoxe 4.5mm 34mm Kit Compression Lock Cap Reverse Shoulder 320-20-34 - [id number] - [id number] Implanted:Qty: 1 on 05/04/2022 by Gavin Sewell MD at [facility] Left: Shoulder Exactech [id number] 07/14/2026 320-20-34 / [id number] / [employer] Insert Tibial Knee Fixed Lm Posterior Stabilized Attune 7mm Size 5 Polyethylene [id number] - [id number] Implanted:Qty: 1 on 11/10/2022 by Gavin Sewell MD at [facility] Left: Knee [employer] 07/28/2030 [id number] / / [id number] [employer] Attune Cruciate Retain Cementless Knee Left 5 Component Femoral [id number] - [id number] Implanted:Qty: 1 on 11/10/2022 by Gavin Sewell MD at [facility] Left: Knee [employer] 04/28/2032 [id number] / / [id number] [employer] Attune Fb Tib Base Sz 5 Por [id number] - [id number] Implanted:Qty: 1 on 11/10/2022 by Gavin Sewell MD at [facility] Left: Knee [employer] 03/28/2032 [id number] / / [id number] Procedures Procedure Name Priority Date/Time Associated Diagnosis Comments SURGICAL PATHOLOGY Routine 09/10/2024 10:29 AM [facility] FACER Calculus of gallbladder with cholecystitis without biliary obstruction, unspecified cholecystitis acuity WY AN ELECTIVE ENDOTRACHEAL AIRWAY Routine 09/10/2024 9:36 AM GOLF CLUB FACER LAPAROSCOPIC CHOLECYSTECTOMY 09/10/2024 9:02 AM G[facility] FACER Calculus of gallbladder with cholecystitis without biliary obstruction, unspecified cholecystitis acuity EGFR STAT 09/10/2024 8:47 AM [facility] FACER DIFFERENTIAL AUTO STAT 09/10/2024 8:4 7 AM [facility] FACER ANTIBODY SCREEN STAT 09/10/2024 8:47 AM [facility] FACER ABO/RH STAT 09/10/2024 8:47 AM G[facility] FACER TYPE AND SCREEN STAT 09/10/2024 8:47 AM GOLF [facility] FACER CBC WITH AUTO DIFFERENTIAL STAT 09/10/2024 8:47 AM [facility] FACER COMPREHENSIVE METABOLIC PANEL STAT 09/10/2024 8:47 AM GOL[facility] FACER B ABO / RH CONFIRMATION TESTING STAT 09/10/2024 8:45 AM G[facility] FACER US ABDOMEN COMPLETE Schedule Routine, Read Routine (OP Routine) 07/24/2024 9:00 AM G[facility] FACER Hepatomegaly XR CHEST 1 VIEW ED 07/22/2024 9:06 AM GOLF [facility] FACER EGFR STAT 07/22/2024 8:48 AM GOL[facility] FACER DIFFERENTIAL AUTO STAT 07/22/2024 8:4 8 AM [facility] FACER MAGNESIUM Routine 07/22/2024 8:48 AM G[facility] FACER COMPREHENSIVE METABOLIC PANEL STAT 07/22/2024 8:48 AM GOL[facility] FACER CBC WITH AUTO DIFFERENTIAL STAT 07/22/2024 8:48 AM [facility] FACER INFLUENZA A/B, RSV, AND COVID-19 PCR Routine 07/22/2024 8:41 AM G[facility] FACER SERUM HEPATITIS C AB Routine 11/01/2014 8:32 AM GOL[facility] FACER DIGITAL MAMMOGRAPHY Routine 12/11/2013 11:01 AM CDT from Last 3 Months or Most Recently Relevant to Health Maintenance Results * Surgical pathology (09/10/2024 10:29 AM [facility] FACER) Tissue (Gallbladder) 09/10/2024 9:51 AM GOL[facility] FACER Narrative PATHOLOGY [facility] ([place]) - 09/11/2024 3:50 PM GOLF [facility] FACER EPIC results best viewed via link to PDF [facility] Department of Pathology [address] [place] [address] Note to Patients: This report may [...] Final Report Patient Name: ANTOINETTE DELANEY Address: [address] [place] [address] Gender: F : 1960 (Age: 64) Service: Surgery Location: [facility] Hospital #: [id number] Patient Type: [facility] Taken: 09/10/2024 Received: 09/10/2024 Accessioned: 09/10/2024 Reported: [...] determined by the Surgical Pathology Department at [facility] as part of an ongoing senior quality manager program and in compliance with federally [...] characteristics determined by the Surgical Pathology Department [facility]. It has not been cleared or approved by the U. S. Food and Drug Administration. Note for decalcified specimens: This assay has not been validated on decalcified tissues. Results should be interpreted with caution given the possibility of false negativity on decalcified specimens us Vignesh Hawkins MD LAB PATHOLOGY OR DERABLES Final Result Performing Organization Address City/State/[facility] Co de Phone Number PATHOLOGY [facility] ([place]) [address] [place] [address] * WY AN ELECTIVE ENDOTRACHEAL AIRWAY (09/10/2024 9:36 AM GOL[facility] FACER) Narrative Cliff Davis CRNA - 09/10/2024 9:36 AM [facility] FACER Cliff Davis CRNA 09/10/2024 9:37 AM Airway [...] nal Result * eGFR (09/10/2024 8:47 AM G[facility] FACER) eGFR >90 >=60 mL/min/1. 73 m2 Comment: [...] last reviewed 2021. Blood 09/10/2024 8:47 AM GOL[facility] CL[facility] FACER 09/10/2024 8:50 AM GOL[facility] FACER Vignesh Hawkins MD LAB BLOOD ORDERA BLES Final Result [facility] ([place] [address] [facility] Department [place] [address] * Differential, auto (09/10/2024 8:47 AM G[facility] FACER) Neutrophil abs 5.3 1.5 - 6.5 K/cumm Imm gran abs 0.0 0.0 - 0.1 K/cumm [facility] ([place]) Lymphocyte abs 0.8 0.8 - 3.3 K/cumm [facility] ([place]) Monocyte abs 0.6 0.2 - 0.8 K/cumm [facility] ([place]) Eosinophil abs 0.3 0.0 - 0.5 K/cumm [...] revised on 2017. Blood 09/10/2024 8:47 AM GOLF CLUB FACER 09/10/2024 8:50 AM GOL[facility] [employer] FACER us Vignesh Hawkins MD LAB BLOOD ORDERA BLES Final Result [facility] ([place]) [address] [facility] Department [place] [address] * (ABNORMAL) CBC with auto differential (09/10/2024 8:47 AM G[facility] FACER) WBC 7.1 3.8 - 9.9 K/cumm Hgb [...] [facility] ([place]) Blood 09/10/2024 8:47 AM GOLF CLUB FACER 09/10/2024 8:50 AM GOL[facility] FACER Vignesh Hawkins MD LAB BLOOD ORDERA BLES Final Result [facility] ([place]) [address] [facility] [place] [address] * ABO/Rh (09/10/2024 8:47 AM G[facility] FACER) ABO/Rh B Positive Blood 09/10/2024 8:47 AM GOLF CLUB FACER 09/10/2024 8:49 AM GOLF CLUB FACER Narrative [facility] ([place]) - 09/10/2024 9:11 AM GOL[facility] CL[facility] FACER Has the patient had Daratumumab or Isatuximab in the past 6 months?->Unknown Vignesh Hawkins MD LAB BLOOD BANK T EST ORDERABLES Final Result [facility] ([place]) [address] [facility] Department [place] [address] * Antibody screen (09/10/2024 8:47 AM GOLF [facility] FACER) [facility] Lonnie, indirect, Gel Interpretation Negative ABSC Blood 09/10/2024 8:47 AM GOLF CLUB FACER 09/10/2024 8:49 AM GOLF CL[facility] FACER N[facility]ative [facility] - 09/10/2024 9:25 AM GOLF CLUB FACER Has the patient had Daratumumab or Isatuximab in the past 6 months?->Unknown us Vignesh Hawkins MD LAB BLOOD BANK T EST ORDERABLES Final Result [facility] ([place] [address] [facility] Department [place] [address] * (ABNORMAL) Comprehensive metabolic panel (09/10/2024 8:47 AM GOLF [facility] FACER) [facility] Sodium 133(L) 135 - 145 mmol/L Comment:sandra moreno(AMB SUrg) Potassium, pl 2.9(C) 3.3 - 4.9 mmol/L [facility] ([place] Comment:Critical Result call ed by [email or web address] at 2024-09-10 09:18:13. Result Read Back by sandra moreno(AMB SUrg) Chloride 94(L) 97 - 110 mmol/L [facility] ([place] Comment:sandra moreno(AMB SUrg) CO2 25 22 - 32 mmol/L [facility] ([place] Comment:sandra moreno(AMB SUrg) Anion gap 14 2 - 15 mmol/L [facility] ([place]) Comment:sandra moreno(AMB SUrg) BUN 12 6 - 25 mg/dL [facility] ([place] Comment:sandra moreno(AMB SUrg) Creatinine 0.68 0.60 - 1.10 mg/dL [facility] ([place] Comment:sandra moreno(AMB SUrg) Glucose 121 70 - 199 mg/dL [facility] ([place] Comment: sandra moreno(AMB SUrg) Interpretive [...] Comment:sandra cisnerosr(AMB SUrg) Blood 09/10/2024 8:47 AM GOLF CLUB FACER 09/10/2024 8:50 AM GOLF CL[facility] FACER Vignesh Hawkins MD LAB BLOOD ORDERA BLES Final Result [facility] ([place]) [address] [facility] Department [place] [address] * ABO / Rh Confirmation Testing (09/10/2024 8:45 AM GOLF [facility] FACER) ABO/Rh Confirmation B Positive [facility] Blood 09/10/2024 8:45 AM GOLF CLUB FACER 09/10/2024 9:13 AM GOLF [facility] FACER Vignesh Hawkins MD LAB BLOOD ORDERA BLES Final Result [facility] ([place] [address] [facility] Department [place] [address] [facility] * US Abdomen Complete (07/24/2024 9:00 AM GOLF [facility] FACER) Anatomical Region Laterality Modality Abdomen N/A Ultrasound 07/27/2024 3:45 PM GOLF CL[facility] FACER Narrative 07/27/2024 3:47 PM GOLF CL[facility] FACER EXAM DESCRIPTION: US ABDOMEN COMPLETE REASON FOR [...] liver size could not be provided. The converting operator indicated that real-time the liver appears enlarged. Liver is increased in echogenicity. There is no focal hepatic lesion. LIVER VASCULATURE: Normal directional flow of the main portal and hepatic veins. GALLBLADDER: Echogenic shadowing gallstone. Mild gallbladder wall thickening 0.3 cm. No pericholecystic fluid. Couture Dressmaker reports a negative sonographic Tom's sign. BILIARY: [...] Kenny Zacarias M.D. CH: BHARTI Report ID: [id number] [place] Location: [id number] Procedure Note Kenny Zacarias Jr., MD - [...] the liver size could not be provided.The converting operator indicated that real-time the liver appears enlarged. Liver is increased in echogenicity. There is no focal hepatic lesion. LIVER VASCULATURE: Normal directional flow of the main portal and hepatic veins. GALLBLADDER: Echogenic shadowing gallstone. Mild gallbladder wallthickening 0.3 cm. No pericholecystic fluid. Couture Dressmaker reports a negativesonographic Tom's sign. BILIARY: No [...] Kenny Zacarias M.D. CH: BHARTI Report ID: [id number] [place] Location: [id number] us Mariah Adams MD IMG US PROCEDURES Final Result * XR Chest 1 View (07/22/2024 9:06 AM [facility] FACER) Anatomical Region Laterality Modality Body, Chest N/A Computed Radiogr aphy 07/22/2024 9:09 AM GOL[facility] FACER Narrative 07/22/2024 9:11 AM GOL[facility] FACER EXAM DESCRIPTION: XR CHEST 1 VIEW REASON [...] by Morgan Dong M.D., JR: Report ID: [id number] [place] Location: [id number] Procedure Note Morgan Dong MD - 07/22/2024 [...] by Morgan Dong M.D. JR: Report ID: [id number] [place] Location: [id number] Mike Suarez MD IMG XR PROCEDURES Final Resu lt * eGFR (07/22/2024 8:48 AM GOL[facility] FACER) eGFR 86 >=60 mL/min/1. 73 m2 Comment: [...] last reviewed 2021. Blood 07/22/2024 8:48 AM GOLF CLUB FACER 07/22/2024 8:50 AM GOLF [facility] FACER Mike Suarez MD LAB BLOOD ORDERABLES Final R esult [facility] ([place] [address] [facility] Department [place] [address] * (ABNORMAL) Differential, auto (07/22/2024 8:48 AM GOL[facility] FACER) Neutrophil abs 9.0(H) 1.5 - 6.5 K/cumm Imm gran abs 0.0 0.0 - 0.1 K/cumm [facility] ([place]) Lymphocyte abs 0.6(L) 0.8 - 3.3 K/cumm [facility] ([place]) Monocyte abs 0.6 0.2 - 0.8 K/cumm [facility] ([place]) Eosinophil abs 0.0 0.0 - 0.5 K/cumm [...] revised on 2017. Blood 07/22/2024 8:48 AM GOLF CLUB FACER 07/22/2024 8:50 AM GOLF CL[facility] FACER us Mike Suarez MD LAB BLOOD ORDERABLES Final R esult [facility] ([place] [address] [facility] Department [place] [address] * (ABNORMAL) CBC with auto differential (07/22/2024 8:48 AM GOLF CL[facility] FACER) WBC 10.3(H) 3.8 - 9.9 K/cumm Hgb [...] [facility] ([place]) Blood 07/22/2024 8:48 AM GOLF CL[facility] FACER 07/22/2024 8:50 AM GOLF CL[facility] FACER Mike Suarez MD LAB BLOOD ORDERABLES Final R esult [facility] ([place]) [address] [facility] [place] [address] * Magnesium (07/22/2024 8:48 AM GOLF [facility]UB FACER) Magnesium 1.6 1.4 - 2.5 mg/dL Comment:Anai Truong (ER) Blood 07/22/2024 8:48 AM GOLF CLUB FACER 07/22/2024 8:50 AM GOLF CLUB FACER Mike Suarez MD LAB BLOOD ORDERABLES Final R esult [facility] ([place]) [address] Department [place] [address] * (ABNORMAL) Comprehensive metabolic panel (07/22/2024 8:48 AM GOLF CL[facility] FACER) Sodium 130(L) 135 - 145 mmol/L Comment:Anai Truong (ER) Potassium, pl 3.0(C) 3.3 - 4.9 mmol/L [facility] Comment:Critical Result call ed by [id number] at 2024-07-22 09:20:43. Result Read Back by Anai Truong (ER) Chloride 89(L) 97 - 110 mmol/L [facility] ([place]) Comment:Anai Truong (ER) CO2 28 22 - 32 mmol/L [facility] Comment:Anai Truong (ER) Anion gap 13 2 - 15 mmol/L [facility] ([place]) Comment:Anai Truong (ER) BUN 10 6 - 25 mg/dL [facility] ([place]) Comment:Anai Truong (ER) Creatinine 0.78 0.60 - 1.10 mg/dL [facility] ([place]) Comment:Anai Truong (ER) Glucose 139 70 - 199 mg/dL [facility] ([place]) Comment: Anai Truong (ER) Interpretive Data [...] (ER) Albumin 4.1 3.5 - 5.0 g/dL [facility] ([place]) Comment:Anai Truong (ER) Alk phos 162(H) 40 - 130 Units/L [facility] ([place] Comment:Anai Turong (ER) ALT 18 7 - 45 Units/L [facility] ([place] Comment:Anai Truong (ER) AST 29 10 - 45 Units/L [facility] ([place]) Comment:Anai Truong (ER) Blood 07/22/2024 8:48 AM GOLF CLUB FACER 07/22/2024 8:50 AM GOLF CLUB FACER Mike Suarez MD LAB BLOOD ORDERABLES Final R esult [facility] [address] [facility] Department [place] [address] * Influenza A/B, RSV, and COVID-19 PCR Nasopharyngeal (07/22/2024 8:41 AM GOLF CLUB FACER) COVID-19 RNA Negative Negative Influenza A RNA Negative Negative [facility] ([place]) Influenza B RNA Negative Negative [facility] RSV RNA Negative Negative [facility] ([place]) Comment: Interpretive data: Testing performed by [facility]. This test is performed using the [employer] Xpert Xpress CoV-2/Flu/RSV plus assay. This is a multiplex, real- time reverse transcriptase PCR assay intended for the qualitative detection of nucleic acid from SARS-CoV-2, influenza A, influenza B, and respiratory syncytial virus. This assay has been cleared by the [place] Food and Drug administration. The performance characteristics have been verified by the [facility]. Results must be considered in the clinical context, and a negative result does not rule out infection. Interpretive Data last revised 2023 Nasopharyngeal 07/22/2024 8: 41 AM GOLF CLUB FACER 07/22/2024 8:43 AM GOLF CLUB FACER Narrative [facility] ([place] - 07/22/2024 9:24 AM GOLF CLUB FACER Is the Patient experiencing symptoms consistent with COVID?->Yes Mike Suarez MD LAB MICROBIOLOGY - GENERAL O RDERABLES Final Result [facility] ([place] [address] [facility] Department [place] [address] * Serum Hepatitis C ab (11/01/2014 8:32 AM GOL[facility]UB FACER) HCV ab Negative NEG HISTORICAL RESULTS Serum 11/01/2014 8:32 AM GOLF CLUB FACER Narrative HISTORICAL RESULTS - 11/02/2014 3:46 AM GOLF CLUB FACER Interpretive Data If confirmation is required, call Laboratory Customer Service to request sample to be sent to [facility] for Hepatitis C Virus (HCV) RNA Detection and Quantitation by Real-Time Reverse Lens Hardener-PCR (RT-PCR). Current interpretive data was last revised on 2011 Fariha Whitley MD LAB BLOOD ORDERABLES Final R esult Performing Organization Address City/[facility]/ZIP Co de Phone Number HISTORICAL RESULTS * DIGITAL MAMMOGRAPHY (12/11/2013 11:01 AM CDT) Anatomical Region Laterality Modality Breast Mammography 12/11/2013 11:0 1 AM CDT Narrative 12/12/2013 12:15 AM CDT Vm Mammogram Performed by: Screening Mamm Bi Acc#: [id number] DATE OF EXAM: Dec 11 2013 CLINICAL [...] Performed by: LT Screening Mamm Bi Acc#: [id number] DATE OF EXAM: Dec 11 2013 CLINICAL [...] Maintenance Insurance [place] [id number] [place] [employer] PPO Advance Directives For more information, please contact: [phone] * Full Code (Latest Code Status on File) Date Activated Date Inactivated Comments 11/22/2023 6:25 PM 11/25/2023 11:09 PM * Full Code Date Activated Date Inactivated Comments 12/21/2022 5:34 PM 12/24/2022 8:16 PM * Full Code Date Activated Date Inactivated Comments 11/10/2022 4:25 PM 11/11/2022 3:51 PM * Full Code Date Activated Date Inactivated Comments 05/04/2022 1:38 PM 05/05/2022 6:47 PM Care Teams Pot Tender Relationship Specialty Start Date End Date Mariah Adams MD [address] [place] [address] [place] [address] PCP - General Internal Medicine 08/19/20 Mitchell Zamarripa MD [address] [place] [address] Referring Physician Rheumatology 03/11/22 Brit More NP [address] [place] [address] Nurse Practitioner Cardiovascular Disease 03/11/22 Cliff Ronquillo NP [address] [place] [address] DR [facility] [place] [address] Nurse Practitioner Nurse Practitioner 05/05/22 Dick Aguilar PA [address] [place] [address] DR QUINTERO [facility] [place] [address] Physician Metal And Plastic Heater Orthopedic Surgery 11/11/22 Gavin Sewell MD [address] [place] [address] DR CARLOS QUINTERO [address] [place] [address] Surgeon Orthopedic Surgery 12/24/22
--- OUTSIDE RECORDS SUMMARY | 2024-10-09 13:17 | XMS_ITS | Clinical Summary ---
Author Organization [facility] Address [address] [place] [address] Care Team Providers Care Quick Print Operator Name Role Phone Mariah Adams MD Primary Care Provider + Mitchell Zamarripa MD Unavailable [phone] Brit More NP Unavailable [phone] Cliff Ronquillo NP Unavailable Dick Aguilar Unavailable [phone] Gavin Sewell MD Unavailable Allergies Active Allergy [...] 1 tablet (100 mcg total) by mouth engine emission technician before breakfast 1 Active celecoxib (CeleBREX) 100 [...] 08/14/2024 Assessment & Plan (08/14/2024 9:48 AM REPORTING DEVELOPER): The patient likely has chronic cholecystitis given [...] atrial fibrillation 11/25/2023 ACS (acute coronary syndrome) ([facility]) 11/23/19 Persistent atrial fibrillation 11/22/2023 Assessment & [...] (04/23/2022): Added automatically from request for surgery [id number] Posterior tibial tendon dysfunction 03/02/2022 Flat foot [...] 01/04/2018 Assessment & Plan (09/19/2018 1:30 PM REPORTING DEVELOPER): Low disease activity today on exam. Take [...] Department Care Team Description 09/10/2024 9:16 AM REPORTING DEVELOPER Anesthesia Event [facility] Operating Room [address] [place] [address] Tonia Gutierrez MD Reynolds, Ethan Emerson, MD 09/10/2024 9:15 AM REPORTING DEVELOPER - 09/10/2024 10:45 AM REPORTING DEVELOPER Surgery [facility] Operating Room [address] [place] [address] Vignesh Hawkins MD LAPAROSCOPIC CHOLECYSTECTOMY 09/10/2024 8:13 AM REPORTING DEVELOPER - 09/10/2024 2:39 PM REPORTING DEVELOPER Hospital Encounter [facility] Operating Room [address] [place] [address] Vignesh Hawkins MD Calculus of gallbladder with cholecystitis without biliary obstruction, unspecified cholecystitis acuity Discharge Disposition: Discharge to home or self care 08/14/2024 9:30 AM REPORTING DEVELOPER Office Visit [facility] [address] [facility] [address] [place] [address] Vignesh Hawkins MD Calculus of gallbladder with cholecystitis without biliary obstruction, unspecified cholecystitis acuity 07/24/2024 7:58 AM REPORTING DEVELOPER - 07/24/2024 11:59 PM REPORTING DEVELOPER Hospital Encounter [facility] Imaging [facility] [address] [place] [address] Hepatomegaly, not elsewhere classified; Hepatomegaly Discharge Disposition: Discharge to home or self care 07/22/2024 8:25 AM REPORTING DEVELOPER - 07/22/2024 10:10 AM REPORTING DEVELOPER Emergency [facility] Emergency Department [address] [place] [address] Mike Suarez MD Bronchitis (Primary Dx) Discharge [...] How often do you attend chur or temple services? Never 12/23/2022 Do you belong to any clubs o r organizations such as presybeterian groups, unions, fraternal or athletic groups, or [...] staff should administer the PHQ-9) 0 11/23/2023 [facility] - Occupational [...] place to sleep or slept in a jail (including now)? No 12/23/2022 Personal Safety Answer Date Recorded Have you ever been in or are you currently in a harmful physical or emotional relationship or is someone making you feel afraid or unsafe? Denies 09/10/2024 Comments No Sex and Gender Information Value Date Recorded Sex Assigned at Not on file Legal Sex Female 11:50 PM REPORTING DEVELOPER Gender Identity Not on file Sexual Orientation Not on file Obstetrics History Last Filed Vital Signs Vital Sign Reading Time Taken Comments Blood Pressure 119/69 09/10/2024 2:00 PM REPORTING DEVELOPER Pulse 69 09/10/2024 2:00 PM REPORTING DEVELOPER Temperature 36.4 C (97.6 F) 09/10/2024 2:00 PM REPORTING DEVELOPER Respiratory Rate 16 09/10/2024 2:00 PM REPORTING DEVELOPER Oxygen Saturation 94% 09/10/2024 2:00 PM REPORTING DEVELOPER Inhaled Oxygen Concentration - - Weight 67.6 kg (149 lb 0.5 oz) 09/10/2024 8:15 A M REPORTING DEVELOPER Height 154.9 cm (5' 1 ) 09/10/2024 8:15 AM REPORTING DEVELOPER Body Mass Index 28.16 09/10/2024 8:15 AM REPORTING DEVELOPER Plan of Treatment Health Maintenance Due Date [...] Completed 11/01/2014 Medical Devices Implanted Type Area Manager Forensic Device Identifier Shelf Expiration Date Model / Serial / Lot Exactech Restrictor Cement Cemex Small Od13mm Tpa-13 - [id number] Implanted:Qty: 1 on 05/04/2022 by Gavin Sewell MD at [facility] Left: Shoulder Exactech 08/28/2023 TPA-13 / / [id number] Exactech Equinoxe Reverse Shoulder +0mm Tray Humeral Adapter 320-10-00 - [id number] - [id number] Implanted:Qty: 1 on 05/04/2022 by Gavin Sewell MD at [facility] Ex[employer]ech [id number] 04/07/2032 320-10-00 / [id number] / Exactech Equinoxe 40mm Small Reverse Constrain Shoulder +2.5mm Liner 320-40-13 - [id number] - [id number] Implanted:Qty: 1 on 05/04/2022 by Gavin Sewell MD at [facility] Ex[employer]ech 01/31/2024 320-40-13 / [id number] / Exactech Equinoxe Lock Reverse Shoulder Glenosphere Screw Bone 320-15-05 - [id number] - [id number] Implanted:Qty: 1 on 05/04/2022 by Gavin Sewell MD at [facility] Left: Shoulder Exactech 03/09/2027 320-15-05 / [id number] / Exactech Reverse Torque Define Shoulder Kit Screw 320-20-00 - [id number] - [id number] Implanted:Qty: 1 on 05/04/2022 by Gavni Sewell MD at [facility] Left: Shoulder Ex[employer]ech 02/03/2027 320-20-00 / [id number] / Exactech Equinoxe Small Reverse Superior Posterior Augment Shoulder Left 320-35-07 - [id number] - [id number] Implanted:Qty: 1 on 05/04/2022 by Gavin Sewell MD at [facility] Left: Shoulder [employer]ech [id number] 04/08/2031 320-35-07 / [id number] / Exactech Equinoxe 10mm Stem Humeral Sterile 300 - [id number] - [id number] Implanted:Qty: 1 on 05/04/2022 by Gavin Sewell MD at [facility] Left: Shoulder Exactech [id number] 09/07/2031 300 / [id number] / [employer] Cement Bone Simplex Gentamicin High Viscosity 40gm 6195-1-001 - [id number] Implanted:Qty: 1 on 05/04/2022 by Gavin Sewell MD at [facility] Left: Shoulder [employer] 09/28/2023 6195-1-001 / / [id number] Exactech Equinoxe 40mm 24.3mm Small Reverse Shoulder Sphere Glenoid 320-31-40 - [id number] - [id number] Implanted:Qty: 1 on 05/04/2022 by Gavin Sewell MD at [facility] Left: Shoulder Exactech [id number] 12/11/2030 320-31-40 / [id number] / Exactech Equinoxe 4.5mm 38mm Kit Compression Lock Cap Reverse Shoulder 320-20-38 - [id number] - [id number] Implanted:Qty: 1 on 05/04/2022 by Gavin Sewell MD at [facility] Left: Shoulder [employer]ech [id number] 01/12/2027 320-20-38 / [id number] / Exactech Equinoxe 4.5mm 34mm Kit Compression Lock Cap Reverse Shoulder 320-20-34 - [id number] - [id number] Implanted:Qty: 1 on 05/04/2022 by Gaivn Sewell MD at [facility] Left: Shoulder Exactech [id number] 07/14/2026 320-20-34 / [id number] / [employer] Insert Tibial Knee Fixed Lm Posterior Stabilized Attune 7mm Size 5 Polyethylene [id number] - [id number] Implanted:Qty: 1 on 11/10/2022 by Gavin Sewell MD at [facility] Left: Knee [employer] 07/28/2030 [id number] / / [id number] [employer] Attune Cruciate Retain Cementless Knee Left 5 Component Femoral [id number] - [id number] Implanted:Qty: 1 on 11/10/2022 by Gavin Sewell MD at [facility] Left: Knee [employer] 04/28/2032 [id number] / / [id number] [employer] Attune Fb Tib Base Sz 5 Por [id number] - [id number] Implanted:Qty: 1 on 11/10/2022 by Gavin Sewell MD at [facility] Left: Knee [employer] 03/28/2032 [id number] / / [id number] Procedures Procedure Name Priority Date/Time Associated Diagnosis Comments SURGICAL PATHOLOGY Routine 09/10/2024 10:29 AM REPORTING DEVELOPER Calculus of gallbladder with cholecystitis without biliary obstruction, unspecified cholecystitis acuity [place] AN ELECTIVE ENDOTRACHEAL AIRWAY Routine 09/10/2024 9:36 AM REPORTING DEVELOPER LAPAROSCOPIC CHOLECYSTECTOMY 09/10/2024 9:02 AM REPORTING DEVELOPER Calculus of gallbladder with cholecystitis without biliary obstruction, unspecified cholecystitis acuity EGFR STAT 09/10/2024 8:47 AM REPORTING DEVELOPER DIFFERENTIAL AUTO STAT 09/10/2024 8:4 7 AM REPORTING DEVELOPER ANTIBODY SCREEN STAT 09/10/2024 8:47 AM REPORTING DEVELOPER ABO/RH STAT 09/10/2024 8:47 AM REPORTING DEVELOPER TYPE AND SCREEN STAT 09/10/2024 8:47 AM REPORTING DEVELOPER CBC WITH AUTO DIFFERENTIAL STAT 09/10/2024 8:47 AM REPORTING DEVELOPER COMPREHENSIVE METABOLIC PANEL STAT 09/10/2024 8:47 AM REPORTING DEVELOPER B ABO / RH CONFIRMATION TESTING STAT 09/10/2024 8:45 AM REPORTING DEVELOPER US ABDOMEN COMPLETE Schedule Routine, Read Routine (OP Routine) 07/24/2024 9:00 AM REPORTING DEVELOPER Hepatomegaly XR CHEST 1 VIEW ED 07/22/2024 9:06 AM REPORTING DEVELOPER EGFR STAT 07/22/2024 8:48 AM REPORTING DEVELOPER DIFFERENTIAL AUTO STAT 07/22/2024 8:4 8 AM REPORTING DEVELOPER MAGNESIUM Routine 07/22/2024 8:48 AM REPORTING DEVELOPER COMPREHENSIVE METABOLIC PANEL STAT 07/22/2024 8:48 AM REPORTING DEVELOPER CBC WITH AUTO DIFFERENTIAL STAT 07/22/2024 8:48 AM REPORTING DEVELOPER INFLUENZA A/B, RSV, AND COVID-19 PCR Routine 07/22/2024 8:41 AM REPORTING DEVELOPER SERUM HEPATITIS C AB Routine 11/01/2014 8:32 AM REPORTING DEVELOPER DIGITAL MAMMOGRAPHY Routine 12/11/2013 11:01 AM CDT from Last 3 Months or Most Recently Relevant to Health Maintenance Results * Surgical pathology (09/10/2024 10:29 AM REPORTING DEVELOPER) Tissue (Gallbladder) 09/10/2024 9:51 AM REPORTING DEVELOPER Narrative PATHOLOGY [facility] ([place]) - 09/11/2024 3:50 PM REPORTING DEVELOPER EPIC results best viewed via link to PDF [facility] Department of Pathology [address] [place] [id number] Note to Patients: This report may contain [...] Final Report Patient Name: ANTOINETTE DELANEY Address: [address] [place] [address] Gender: F : 1960 (Age: 64) Service: Surgery Location: [facility] Hospital #: [id number] Patient Type: [facility] Taken: 09/10/2024 Received: 09/10/2024 Accessioned: 09/10/2024 [...] [facility] as part of an ongoing production quality manager program and in compliance with [...] characteristics determined by the Surgical Pathology Department [facility]. It has not been cleared or approved by the U. S. Food and Drug Administration. Note for decalcified specimens: This assay has not been validated on decalcified tissues. Results should be interpreted with caution given the possibility of false negativity on decalcified specimens Vignesh Hawkins MD LAB PATHOLOGY OR DERABLES Final Result Performing Organization Address City/State/[facility] Co de Phone Number PATHOLOGY [facility] ([address] [address] * [place] AN ELECTIVE ENDOTRACHEAL AIRWAY (09/10/2024 9:36 AM REPORTING DEVELOPER) [place] CRNA - 09/10/2024 9:36 AM REPORTING DEVELOPER Cliff Davis CRNA 09/10/2024 9:37 AM Airway [...] nal Result * eGFR (09/10/2024 8:47 AM REPORTING DEVELOPER) eGFR >90 >=60 mL/min/1. 73 m2 Comment: [...] last reviewed 2021. Blood 09/10/2024 8:47 AM REPORTING DEVELOPER 09/10/2024 8:50 AM REPORTING DEVELOPER us Vignesh Hawkins MD LAB BLOOD ORDERA BLES Final Result JL [facility] ([place]) [address] [facility] Department [place] [address] * Differential, auto (09/10/2024 8:47 AM REPORTING DEVELOPER) Neutrophil abs 5.3 1.5 - 6.5 K/cumm Imm gran abs 0.0 0.0 - 0.1 K/cumm [facility] ([place]) Lymphocyte abs 0.8 0.8 - 3.3 K/cumm [...] revised on 2017. Blood 09/10/2024 8:47 AM REPORTING DEVELOPER 09/10/2024 8:50 AM REPORTING DEVELOPER us Vignesh Hawkins MD LAB BLOOD ORDERA BLES Final Result [facility] ([place]) [address] [facility] Department [place] [address] * (ABNORMAL) CBC with auto differential (09/10/2024 8:47 AM REPORTING DEVELOPER) Pathologist [facility] WBC 7.1 3.8 - 9.9 K/cumm Hgb [...] [facility] ([place]) Blood 09/10/2024 8:47 AM REPORTING DEVELOPER 09/10/2024 8:50 AM REPORTING DEVELOPER us Vignesh Hawkins MD LAB BLOOD ORDERA BLES Final Result [facility] ([place]) [address] [facility] Department [place] [address] * ABO/Rh (09/10/2024 8:47 AM REPORTING DEVELOPER) Pathologist [facility] ABO/Rh B Positive Blood 09/10/2024 8:47 AM REPORTING DEVELOPER 09/10/2024 8:49 AM REPORTING DEVELOPER Narrative [facility] ([place]) - 09/10/2024 9:11 AM REPORTING DEVELOPER Has the patient had Daratumumab or Isatuximab in the past 6 months?->Unknown Vignesh Hawkins MD LAB BLOOD BANK T EST ORDERABLES Final Result [facility] ([place]) [address] [facility] Department [place] [address] * Antibody screen (09/10/2024 8:47 AM REPORTING DEVELOPER) [facility] Lonnie, indirect, Gel Interpretation Negative ABSC Blood 09/10/2024 8:47 AM REPORTING DEVELOPER 09/10/2024 8:49 AM REPORTING DEVELOPER Narrative JL [facility] ([place]) - 09/10/2024 9:25 AM REPORTING DEVELOPER Has the patient had Daratumumab or Isatuximab in the past 6 months?->Unknown Vignesh Hawkins MD LAB BLOOD BANK T EST ORDERABLES Final Result Performing Organization Address City/[facility] Co de Phone Number [facility] ([place]) 1 [facility] [place] [address] * (ABNORMAL) Comprehensive metabolic panel (09/10/2024 8:47 AM REPORTING DEVELOPER) [facility] Sodium 133(L) 135 - 145 mmol/L Comment:sandra moreno(AMB SUrg) Potassium, pl 2.9(C) 3.3 - 4.9 mmol/L [facility] ([place]) Comment:Critical Result call ed by [email or web address] at 2024-09-10 09:18:13. Result Read Back by [...] Comment:sandra moreno(AMB SUrg) Blood 09/10/2024 8:47 AM REPORTING DEVELOPER 09/10/2024 8:50 AM REPORTING DEVELOPER us Vignesh Hawkins MD LAB BLOOD ORDERA BLES Final Result [facility] ([place]) [address] [facility] Department [place] [address] * ABO / Rh Confirmation Testing (09/10/2024 8:45 AM REPORTING DEVELOPER) ABO/Rh Confirmation B Positive [facility] Blood 09/10/2024 8:45 AM REPORTING DEVELOPER 09/10/2024 9:13 AM REPORTING DEVELOPER us Vignesh Hawkins MD LAB BLOOD ORDERA BLES Final Result JL [facility] ([place]) [address] [facility] Department [place] [address] [facility] * US Abdomen Complete (07/24/2024 9:00 AM REPORTING DEVELOPER) Anatomical Region Laterality Modality Abdomen N/A Ultrasound 07/27/2024 3:45 PM REPORTING DEVELOPER Narrative 07/27/2024 3:47 PM REPORTING DEVELOPER EXAM DESCRIPTION: US ABDOMEN COMPLETE REASON FOR [...] liver size could not be provided. The territory account representative indicated that real-time the liver appears enlarged. Liver is increased in echogenicity. There is no focal hepatic lesion. LIVER VASCULATURE: Normal directional flow of the main portal and hepatic veins. GALLBLADDER: Echogenic shadowing gallstone. Mild gallbladder wall thickening 0.3 cm. No pericholecystic fluid. Air Launch Weapons Technician reports a negative sonographic Tom's sign. BILIARY: [...] Kenny Zacarias M.D. CH: BHARTI Report ID: [id number] Reading Location: [place] [address] Procedure Note Kenny Zacarias Jr., MD - [...] the liver size could not be provided.The territory account representative indicated that real-time the liver appears enlarged. Liver is increased in echogenicity. There is no focal hepatic lesion. LIVER VASCULATURE: Normal directional flow of the main portal and hepatic veins. GALLBLADDER: Echogenic shadowing gallstone. Mild gallbladder wallthickening 0.3 cm. No pericholecystic fluid. Air Launch Weapons Technician reports a negativesonographic Tom's sign. BILIARY: No [...] Kenny Zacarias M.D. CH: BHARTI Report ID: [id number] Reading Location: [id number] Mariah Adams MD [facility] US PROCEDURES Final Result * XR Chest 1 View (07/22/2024 9:06 AM REPORTING DEVELOPER) Anatomical Region Laterality Modality Body, Chest N/A Computed Radiogr aphy 07/22/2024 9:09 AM REPORTING DEVELOPER Narrative 07/22/2024 9:11 AM REPORTING DEVELOPER EXAM DESCRIPTION: XR CHEST 1 VIEW REASON [...] by Morgan Dong M.D. JR: Report ID: [id number] Reading Location: [id number] Procedure Note Morgan Dong MD - 07/22/2024 [...] by Morgan Dong M.D. JR: Report ID: [id number] Reading Location: [place] [address] Mike Suarez MD IMG XR PROCEDURES Final Resu lt * eGFR (07/22/2024 8:48 AM REPORTING DEVELOPER) eGFR 86 >=60 mL/min/1. 73 m2 Comment: [...] last reviewed 2021. Blood 07/22/2024 8:48 AM REPORTING DEVELOPER 07/22/2024 8:50 AM REPORTING DEVELOPER Mike Suarez MD LAB BLOOD ORDERABLES Final R esult [facility] ([place] [facility] Department [place] [address] * (ABNORMAL) Differential, auto (07/22/2024 8:48 AM REPORTING DEVELOPER) Neutrophil abs 9.0(H) 1.5 - 6.5 K/cumm [...] revised on 2017. Blood 07/22/2024 8:48 AM REPORTING DEVELOPER 07/22/2024 8:50 AM REPORTING DEVELOPER Mike Suarez MD LAB BLOOD ORDERABLES Final R esult [facility] ([place]) [address] [facility] [employer] [place] [address] * (ABNORMAL) CBC with auto differential (07/22/2024 8:48 AM REPORTING DEVELOPER) WBC 10.3(H) 3.8 - 9.9 K/cumm Hgb [...] [facility] ([place]) Blood 07/22/2024 8:48 AM REPORTING DEVELOPER 07/22/2024 8:50 AM REPORTING DEVELOPER Mike Suarez MD LAB BLOOD ORDERABLES Final R esult [facility] ([place]) [address] [facility] [employer] [place] [address] * Magnesium (07/22/2024 8:48 AM REPORTING DEVELOPER) Magnesium 1.6 1.4 - 2.5 mg/dL Comment:Anai Truong (ER) Blood 07/22/2024 8:48 AM REPORTING DEVELOPER 07/22/2024 8:50 AM REPORTING DEVELOPER us Mike Suarez MD LAB BLOOD ORDERABLES Final R esult [facility] ([place]) [address] [facility] Department [place] [address] * (ABNORMAL) Comprehensive metabolic panel (07/22/2024 8:48 AM REPORTING DEVELOPER) Sodium 130(L) 135 - 145 mmol/L Comment:Anai Truong (ER) Potassium, pl 3.0(C) 3.3 - 4.9 mmol/L [facility] ([place]) Comment:Critical Result call ed by [email or web address] at 2024-07-22 09:20:43. Result Read Back by Anai Truong (ER) Chloride 89(L) 97 - 110 mmol/L [facility] ([place]) Comment:Anai Truong (ER) CO2 28 22 - 32 mmol/L [facility] ([place]) Comment:Anai Truong (ER) Anion gap 13 2 - 15 mmol/L [facility] ([place]) Comment:Anai Truong (ER) BUN 10 6 - 25 mg/dL [facility] ([place]) Comment:Anai Truong (ER) Creatinine 0.78 0.60 - 1.10 mg/dL [facility] ([place]) Comment:Anai Truong (ER) Glucose 139 70 - 199 mg/dL [facility] ([place]) Comment: Anai Truong (ER) Interpretive [...] Bilirubin, total 0.6 0.1 - 1.2 mg/dL [facility] ([place]) Comment:Anai Truong (ER) Protein, pl 8.2 6.5 - 8.5 g/dL [facility] ([place]) Comment:Anai Truong (ER) Albumin 4.1 3.5 - 5.0 g/dL [facility] ([place]) Comment:Anai Truong (ER) Alk phos 162(H) 40 - 130 Units/L [facility] ([place]) Comment:Anai Truong (ER) ALT 18 7 - 45 Units/L [facility] ([place]) Comment:Anai Truong (ER) AST 29 10 - 45 Units/L [facility] ([place]) Comment:Anai Truong (ER) Blood 07/22/2024 8:48 AM REPORTING DEVELOPER 07/22/2024 8:50 AM REPORTING DEVELOPER Mike Suarez MD LAB BLOOD ORDERABLES Final R esult [facility] Department [place] [address] * Influenza A/B, RSV, and COVID-19 PCR Nasopharyngeal (07/22/2024 8:41 AM REPORTING DEVELOPER) COVID-19 RNA Negative Negative Influenza A RNA Negative Negative [facility] ([place]) Influenza B RNA Negative Negative [facility] ([place]) RSV RNA Negative Negative [facility] ([place]) Comment: Interpretive data: Testing performed by [facility]. This test is performed using the [employer] Xpert Xpress CoV-2/Flu/RSV plus assay. This is a multiplex, real- time reverse transcriptase PCR assay intended for the qualitative detection of nucleic acid from SARS-CoV-2, influenza A, influenza B, and respiratory syncytial virus. This assay has been cleared by the [place] Food and Drug administration. The performance characteristics have been verified by the [facility]. Results must be considered in the clinical context, and a negative result does not rule out infection. Interpretive Data last revised 2023 Nasopharyngeal 07/22/2024 8: 41 AM REPORTING DEVELOPER 07/22/2024 8:43 AM REPORTING DEVELOPER Narrative [facility] ([place]) - 07/22/2024 9:24 AM REPORTING DEVELOPER Is the Patient experiencing symptoms consistent with COVID?->Yes us Mike Suarez MD LAB MICROBIOLOGY - GENERAL O RDERABLES Final Result [facility] ([place]) [address] [facility] Department [place] [address] * Serum Hepatitis C ab (11/01/2014 8:32 AM REPORTING DEVELOPER) HCV ab Negative NEG HISTORICAL RESULTS Serum 11/01/2014 8:32 AM REPORTING DEVELOPER Narrative HISTORICAL RESULTS - 11/02/2014 3:46 AM REPORTING DEVELOPER Interpretive Data If confirmation is required, call Laboratory Customer Service to request sample to be sent to [facility] for Hepatitis C Virus (HCV) RNA Detection and Quantitation by Real-Time Reverse Top Trimmer-PCR (RT-PCR). Current interpretive data was last revised on 2011 us Fariha Whitley MD LAB BLOOD ORDERABLES Final R esult HISTORICAL RESULTS * DIGITAL MAMMOGRAPHY (12/11/2013 11:01 AM CDT) Anatomical Region Laterality Modality Breast Mammography 12/11/2013 11:0 1 AM CDT Narrative 12/12/2013 12:15 AM CDT Vm Mammogram Performed by: LT Screening Mamm Bi Acc#: [id number] DATE OF EXAM: Dec 11 2013 CLINICAL [...] Mammogram Performed by: Screening Mamm Bi Acc#: [id number] DATE OF EXAM: Dec 11 2013 CLINICAL [...] Advance Directives For more information, please contact: [phone] * Full Code (Latest Code Status on File) Date Activated Date Inactivated Comments 11/22/2023 6:25 PM 11/25/2023 11:09 PM * Full Code Date Activated Date Inactivated Comments 12/21/2022 5:34 PM 12/24/2022 8:16 PM * Full Code Date Activated Date Inactivated Comments 11/10/2022 4:25 PM 11/11/2022 3:51 PM * Full Code Date Activated Date Inactivated Comments 05/04/2022 1:38 PM 05/05/2022 6:47 PM Care Teams Quick Print Operator Relationship Specialty Start Date End Date Mariah Adams MD [address] [place] [phone] PCP - General Internal Medicine 08/19/20 Mitchell Zamarripa MD [address] [place] [address] Referring Physician Rheumatology 03/11/22 Brit More NP [address] [place] [address] Nurse Practitioner Cardiovascular Disease 03/11/22 Cliff Ronquillo NP [address] [place] [address] DR [facility] [facility] [place] [address] Nurse Practitioner Nurse Practitioner 05/05/22 Dick Aguilar PA [address] [place] [address] DR [facility] [place] [address] Physician Fleet Service Clerk Orthopedic Surgery 11/11/22 Gavin Sewell MD [address] [place] [address] DR CARLOS QUINTERO [address] [place] [address] Surgeon Orthopedic Surgery 12/24/22
--- OUTSIDE RECORDS SUMMARY | 2024-10-09 13:17 | XMS_ITS | Clinical Summary ---
Author Organization [facility] Address [address] [place] [address] Phone Care Team Providers Care Currency Machine Operator Name Role Phone JAM MCDONNELL PA-C Primary Care Provider [phone] Reason for Visit and Chief Complaint HEART [...] apnea, unspecified, Supraventricular tachycardia, unspecified [facility]FFANY HOWARD [facility] 11/14/2023 Last Documented On 4 12:05PM ; [facility] Medical History Includes: Medical History addressed during [...] CENTER CHECK UP TIFFANY HOWARD [facility] 4 10:58AM 11:28AM Insurance Includes: Active Insurance Policies Plan Name Member ID Group # Subscriber Relationship Effect cyn Dates 1 - [employer]AGE [id number] NIGHAT DELANEY Self Clinical Notes Includes: Clinical Notes from this encounter No Clinical Notes Recorded
--- OUTSIDE RECORDS SUMMARY | 2024-10-09 13:17 | XMS_ITS | Encounter Summary ---
Author Organization [facility] Address [address] [place] [address] Care Team Providers Care Electric Crane Operator Name Role Phone Jose Cruz Ledezma Primary Care Provider [phone] Yg Lee MD Primary Care Provider + Mitchell Zamarripa MD Unavailable [phone] Brit More MANAGER MEDICARE Unavailable [phone] Cliff Ronquillo NP Unavailable [phone] Dick Aguilar Unavailable [phone] Gavin Sewell MD Unavailable [phone] Reason for Visit * Reason Onset Date Comments Scheduling Appointments 03/24/2020 Called f or DEXA appointment reminder Encounter Details Date Type Department Care Team (Late st Contact Info) Description 03/24/2020 Telephone [facility] [address] [place] [id number] Valencia Hernandez RT Scheduling Appointments (Called for DEXA appointment reminder) Social History Tobacco Use Types Packs/Day Years Used Date Smoking Tobacco: Former Smokeless Tobacco: Never Alcohol Use Standard Drinks/Week Comments Yes 0 (1 standard drink = 0.6 oz pur e alcohol) occasional Comments No Sex and Gender Information Value Date Recorded Sex Assigned at Not on file Legal Sex Female 11:50 PM 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 Gender Identity Not on file Sexual Orientation [...] COVID: Suspected 07/22/2024 07/22/2024 07/22/2024 9:25 AM 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 documented as of this encounter Care Teams Electric Crane Operator Relationship Specialty Start Date End Date Jose Cruz Ledezma PA [address] [place] [address] PCP - General 01/24/20 08/18/20 Yg Lee MD [address] [place] [phone] PCP - General Internal Medicine 08/19/20 Mitchell Zamarripa MD [address] [place] [id number] Referring Physician Rheumatology 03/11/22 Brit More NP [address] [place] [id number] Nurse Practitioner Cardiovascular Disease 03/11/22 Cliff Ronquillo NP [address] [place] [address] [address] [place] [address] Nurse Practitioner Nurse Practitioner 05/05/22 Dick Aguilar PA [address] [place] [address] [address] [place] [address] Physician Mechatronics Technologist Orthopedic Surgery 11/11/22 Gavin Sewell MD [address] [facility] [place] [address] Surgeon Orthopedic Surgery 12/24/22 documented as of this encounter
--- OUTSIDE RECORDS SUMMARY | 2024-10-09 13:17 | XMS_ITS | Patient Health Summary ---
Author Organization [facility] Address [address] [place] [address] Care Team Providers Care Recording Clerk Name Role Phone Shandra Ruffin Malcolm WISDOM-ELECTRIC BATH ATTENDANT Primary Care Provider Note from [facility],non-owned Affiliates and Associated Physician Practices is amultiple site organization consisting of ambulatory clinics and hospital sitesin [place], [place], [place] and [place]. This disclosure is being madepursuant to the Care Everywhere program and may not contain all information available regarding this patient. Last updated 18.[facility] Allergies * Ciprofloxacin(Other,Myalgias) -Medium Criticality * [...] 06/11/2015, 06/01/2014, 07/28/2013, 06/14/2012, 06/01/2011) * Covid eVoter primary monovalent 12+ yr 0.3mL Purple cap(Given [...] * CENTROMERE B ANTIBODIES(Performed 03/31/2021) * MONTIEL (SM)+ENVIRONMENTAL ENGINEER SCIENTIST ANTIBODY PANEL(Performed 03/31/2021) * MARTHA-1 ANTIBODY(Performed 03/31/2021) [...] for Arthritis, Myalgia, Hx of psoriasis * ENVIRONMENTAL ENGINEER SCIENTIST ANTIBODY(Performed 05/24/2019) Performed for Arthritis, Myalgia, Hx [...] * (ABNORMAL) C-REACTIVE PROTEIN (08/31/2022 9:26 AM PAD EXTRACTOR TENDER) Only the most recent of6 resultswithin the time period is included. Pathologist [facility] [place] C-Reactive Protein 27.6(H) <8.0 mg/L [facility] Comment: REPORT COMMENT: FASTING:YES Test Performed at: [employer], [employer] [address] LUISA LAWRENCE DO,MPH 08/31/2022 9:26 AM PAD EXTRACTOR TENDER 08/31/2022 9:27 AM PAD EXTRACTOR TENDER Mitchell Zamarripa MD LAB - CHEMISTRY INGRID DE GUZMAN [address] [address] [place] [address] * ERYTHROCYTE SEDIMENTATION RATE (08/31/2022 9:26 AM PAD EXTRACTOR TENDER) Only the most recent of6 resultswithin the time period is included. Pathologist [facility] [place] Erythrocyte Sedimentation Rate Westergren 25 < OR = 30 mm/h [facility] Comment: Test Performed at: [employer] [address]OM[employer]ish, B[employer]Brev [address] LUISA LAWRENCE DO,MPH 08/31/2022 9:26 AM PAD EXTRACTOR TENDER 08/31/2022 9:27 AM PAD EXTRACTOR TENDER Mitchell Zamarripa MD LAB - HEMATOLOGY ORD ERABLES [facility] [address] [place] [address] * (ABNORMAL) CBC WITH DIFFERENTIAL (08/31/2022 9:26 AM PAD EXTRACTOR TENDER) Only the most recent of6 resultswithin the [...] 0.9 % [facility] Comment: Test Performed at: [employer] [address] [employer] [employer] [place] [address] LUISA LAWRENCE DO,MPH Blasts [facility] nRBC [facility] Comments [facility] Comment: Test Performed at: [employer] [address] [employer] [address] LUISA LAWRENCE DO,MPH 08/31/2022 9:26 AM PAD EXTRACTOR TENDER 08/31/2022 9:27 AM PAD EXTRACTOR TENDER Mitchell Zamarripa MD LAB - HEMATOLOGY ORD [facility] Organization Address City/State/ZIP Co de Phone Number [facility] [address] [place] [address] * (ABNORMAL) COMPREHENSIVE METABOLIC PANEL (08/31/2022 9:26 AM PAD EXTRACTOR TENDER) Only the most recent of6 resultswithin the [...] 29 U/L [facility] Comment: Test Performed at: [employer] [address] [place] [address] LUISA LAWRENCE DO,MPH 08/31/2022 9:26 AM PAD EXTRACTOR TENDER 08/31/2022 9:27 AM PAD EXTRACTOR TENDER Mitchell Zamarripa MD LAB - CHEMISTRY ORDE GAB Performing Organization Address [facility] de Phone Number [facility] [address] [place] [phone] * URINALYSIS W/MICROSCOPIC NO CULTURE (08/11/2021 8:16 AM PAD EXTRACTOR TENDER) Only the most recent of3 resultswithin the time period is included. Color UA YELLOW YELLOW [facility] Appearance CLEAR CLEAR [facility] Specific [place] UA 1.010 1.001 - 1.035 [facility] pH [...] SEEN /LPF [facility] Comment: Test Performed at: [employer], [place]Brev [address] LUISA LAWRENCE DO,MPH Granular Casts [facility] Casts UA [facility] Yeast [facility] Comments [facility] Note [facility] Comment: Test Performed at: [employer], [employer]rev [address] LUISA LAWRENCE DO,MPH 08/11/2021 8:16 AM PAD EXTRACTOR TENDER 08/11/2021 8:17 AM PAD EXTRACTOR TENDER Mitchell Zamarripa MD LAB - URINALYSIS ORD ERABLES Performing Organization Address [facility] Co de Phone Number [facility] [address] [place] [address] * URIC ACID BLOOD (08/11/2021 8:16 AM PAD EXTRACTOR TENDER) Only the most recent of4 resultswithin the time period is included. Uric Acid 5.8 2.5 - 7.0 mg/dL [facility] Comment: Therapeutic target for gout patients: <6.0 mg/dL Test Performed at: [employer] [address] LUISA LAWRENCE DO,MPH 08/11/2021 8:16 AM PAD EXTRACTOR TENDER 08/11/2021 8:17 AM PAD EXTRACTOR TENDER Mitchell Zamarripa MD LAB - CHEMISTRY INGRID Glavez Organization Address City/State/ZIP Co de Phone Number [facility] [address] [place] [address] * XR FOOT RIGHT 3VW OR MORE (08/03/2021 2:52 PM PAD EXTRACTOR TENDER) Only the most recent of2 resultswithin the time period is included. Anatomical Region Laterality Modality Ankle / Foot Radiographic Kristyn ging 08/03/2021 2:57 PM PAD EXTRACTOR TENDER Impressions 08/03/2021 3:17 PM PAD EXTRACTOR TENDER IMPRESSION: 1. Right hand: Mild arthritis of [...] 3:17 PM . Narrative 08/03/2021 3:17 PM PAD EXTRACTOR TENDER Exam: 1.XR HAND RIGHT 3VW 2.XR FOOT [...] osteophytes. There is moderate narrowing of the qxivtqet-drhrnvcvw-fodrefmlk joint space. No erosions are seen. The [...] osteophytes. There is moderate narrowing of the glvqtblw-puvaubwcu-kmcbjjltt joint space. No erosions are seen. Thebones [...] LEFT 3VW OR MORE (08/03/2021 2:52 PM PAD EXTRACTOR TENDER) Only the most recent of2 resultswithin the time period is included. Anatomical Region Laterality Modality Ankle / Foot Radiographic Kristyn ging 08/03/2021 2:57 PM PAD EXTRACTOR TENDER Impressions 08/03/2021 3:17 PM PAD EXTRACTOR TENDER IMPRESSION: 1. Right hand: Mild arthritis of [...] 3:17 PM . Narrative 08/03/2021 3:17 PM PAD EXTRACTOR TENDER Exam: 1.XR HAND RIGHT 3VW 2.XR FOOT [...] osteophytes. There is moderate narrowing of the mmwwxhvv-pkzyenyeu-rxddphlkb joint space. No erosions are seen. The [...] osteophytes. There is moderate narrowing of the vssqfhfk-mlbzgwkyx-gnepggmtk joint space. No erosions are seen. Thebones [...] RIGHT 3VW OR MORE (08/03/2021 2:52 PM PAD EXTRACTOR TENDER) Only the most recent of2 resultswithin the time period is included. Anatomical Region Laterality Modality Wrist / Hand Radiographic Kristyn ging 08/03/2021 2:57 PM PAD EXTRACTOR TENDER Impressions 08/03/2021 3:17 PM PAD EXTRACTOR TENDER IMPRESSION: 1. Right hand: Mild arthritis of [...] 3:17 PM . Narrative 08/03/2021 3:17 PM PAD EXTRACTOR TENDER Exam: 1.XR HAND RIGHT 3VW 2.XR FOOT [...] osteophytes. There is moderate narrowing of the xdiqpths-mxeuxwtgi-ldvdkjzms joint space. No erosions are seen. The [...] osteophytes. There is moderate narrowing of the wayqqvmf-spvdhwxrx-shhhddvbq joint space. No erosions are seen. Thebones [...] LEFT 3VW OR MORE (08/03/2021 2:52 PM PAD EXTRACTOR TENDER) Only the most recent of2 resultswithin the time period is included. Anatomical Region Laterality Modality Wrist / Hand Radiographic Kristyn ging 08/03/2021 2:57 PM PAD EXTRACTOR TENDER Impressions 08/03/2021 3:17 PM PAD EXTRACTOR TENDER IMPRESSION: 1. Right hand: Mild arthritis of [...] 3:17 PM . Narrative 08/03/2021 3:17 PM PAD EXTRACTOR TENDER Exam: 1.XR HAND RIGHT 3VW 2.XR FOOT [...] osteophytes. There is moderate narrowing of the ktcetull-akswvrpmv-wtygwqxip joint space. No erosions are seen. The [...] osteophytes. There is moderate narrowing of the ogzdqyhe-uzbunofxu-xdyrinywt joint space. No erosions are seen. Thebones [...] RIGHT 3VW OR MORE (08/03/2021 2:52 PM PAD EXTRACTOR TENDER) Anatomical Region Laterality Modality Wrist / Hand Radiographic Kristyn ging 08/03/2021 2:57 PM PAD EXTRACTOR TENDER Impressions 08/03/2021 3:17 PM PAD EXTRACTOR TENDER IMPRESSION: 1. Right hand: Mild arthritis of [...] 3:17 PM . Narrative 08/03/2021 3:17 PM PAD EXTRACTOR TENDER Exam: 1.XR HAND RIGHT 3VW 2.XR FOOT [...] osteophytes. There is moderate narrowing of the qhzhzgrw-tlxkmxuyl-eiidomvui joint space. No erosions are seen. The [...] osteophytes. There is moderate narrowing of the jzolprqp-pkgegrxci-oquilhpqz joint space. No erosions are seen. Thebones [...] LEFT 3VW OR MORE (08/03/2021 2:52 PM PAD EXTRACTOR TENDER) Anatomical Region Laterality Modality Wrist / Hand Radiographic Kristyn ging 08/03/2021 2:57 PM PAD EXTRACTOR TENDER Impressions 08/03/2021 3:17 PM PAD EXTRACTOR TENDER IMPRESSION: 1. Right hand: Mild arthritis of [...] 3:17 PM . Narrative 08/03/2021 3:17 PM PAD EXTRACTOR TENDER Exam: 1.XR HAND RIGHT 3VW 2.XR FOOT [...] osteophytes. There is moderate narrowing of the sltpjvcu-zgzwrfzez-rzkcqzksy joint space. No erosions are seen. The [...] osteophytes. There is moderate narrowing of the euwmqets-vstltgzvm-bpeaqrumx joint space. No erosions are seen. Thebones [...] MD DIAGNOSTIC IMAGING O RDERABLES * MONTIEL (SM)+ENVIRONMENTAL ENGINEER SCIENTIST ANTIBODY PANEL (03/31/2021 9:59 AM CDT) SM Antibody <1.0 NEG <1.0 NEG AI [facility] SM/ENVIRONMENTAL ENGINEER SCIENTIST Antibody <1.0 NEG <1.0 NEG AI [facility] Comment: Test Performed at: [employer] [facility] [address] [place] [address] LUISA LAWRENCE DO,MPH 03/31/2021 9:59 AM CDT 03/31/2021 9:59 AM CDT Mitchell Zamarripa MD LAB - SEROLOGY ORDER XOCHITL Performing Organization Address [facility] Co de Phone Number [facility] [address] [place] [address] * CENTROMERE B ANTIBODIES (03/31/2021 9:59 AM CDT) Centromere B Antibody <1.0 NEG <1.0 NEG AI [facility] Comment: Test Performed at: [employer] [address] [place] [address] LUISA LAWRENCE DO,MPH 03/31/2021 9:59 AM CDT 03/31/2021 9:59 AM CDT Mitchell Zamarripa MD LAB - SEROLOGY ORDER XOCHITL Performing Organization Address [facility] Co de Phone Number [facility] [address] [place] [address] * CHROMATIN ANTIBODY (03/31/2021 9:59 AM CDT) Chromatin Nucleosomal Antibody <1.0 NEG <1.0 NEG AI [facility] Comment: Test Performed at: [employer] [place] [address] [facility] [place] [address] LUISA LAWRENCE DO,MPH 03/31/2021 9:59 AM CDT 03/31/2021 9:59 AM CDT Mitchell Zamarripa MD LAB - SEROLOGY ORDER XOCHITL Performing Organization Address [facility] Co de Phone Number [facility] [address] [place] [address] * RNA POLYMERASE III ANTIBODY IGG (03/31/2021 9:59 AM CDT) RNA Polymerase 3 Antibody <20 <20 Units [facility] Comment: Test Performed at: [employer]/[facility] [address] [place] [address] JONATHAN LUQUE MD,PHD,JAUQELINE 03/31/2021 9:59 AM CDT 03/31/2021 9:59 AM CDT Mitchell Zamarripa MD LAB - SEROLOGY ORDER XOCHITL Performing Organization Address City/[facility] Co de Phone Number [facility] [address] [place] [address] * PM/SCL-100 ANTIBODY IGG (03/31/2021 9:59 AM CDT) PM Scl 100 AB <20 <20 Units [facility] Comment: Negative: <20 Weak Positive: 20 - 39 Moderate Positive: 40 - 80 Strong Positive: >80 Comments: This test was developed and its performance characteristics determined by [facility]. It has not been cleared or approved by the Food and Drug Administration. Test Performed at: [employer] [address] [place] [address] NATALYA PEREZ MD 03/31/2021 9:59 AM CDT 03/31/2021 9:59 AM CDT Mitchell Zamarripa MD LAB - SEROLOGY ORDER XOCHITL Performing Organization Address [facility] Co de Phone Number [facility] [address] [place] [address] * HISTONE ANTIBODY (03/31/2021 9:59 AM CDT) [facility] Histone Antibodies <1.0 U [facility] Comment: Value Expanation of Results <1.0 Negative 1.0-1.5 Weak Positive 1.6-2.5 Moderate Positive >2.5 Strong Positive Test Performed at: [employer] [facility] [address] [place] [address] JONATHAN LUQUE MD,PHD,JAQUELINE 03/31/2021 9:59 AM CDT 03/31/2021 9:59 AM CDT Mitchell Zamarripa MD LAB - CHEMISTRY INGRID DE GUZMAN Performing Organization Address [facility] Co de Phone Number [facility] [address] [place] [address] * SS-B (SJOGREN'S) ANTIBODY (03/31/2021 9:59 AM CDT) Only the most recent of2 resultswithin the time period is included. Sjogren's Antibodies (SSB) <1.0 NEG <1.0 NEG AI [facility] Comment: Test Performed at: [employer] [facility] [address] [place] [address] LUISA LAWRENCE DO,MPH 03/31/2021 9:59 AM CDT 03/31/2021 9:59 AM CDT Mitchell Zamarripa MD LAB - CHEMISTRY CHEBANSELeidy [facility] Performing Organization Address [facility] [place] [place] [address] * SS-A (SJOGREN'S) ANTIBODY (03/31/2021 9:59 AM CDT) Only the most recent of2 resultswithin the time period is included. Sjogren's Antibodies (SSA) <1.0 NEG <1.0 NEG AI [facility] Comment: Test Performed at: [employer] [facility] [address] LUISA LAWRENCE DO,MPH 03/31/2021 9:59 AM CDT 03/31/2021 9:59 AM CDT Mitchell Zamarripa MD LAB - CHEMISTRY INGRID DE GUZMAN Performing Organization Address [facility] Co de Phone Number [facility] [phone] [place] [address] * SCLERODERMA 70 (SCL) ANTIBODY (03/31/2021 9:59 AM CDT) Only the most recent of2 resultswithin the time period is included. SCL-70 Antibody <1.0 NEG <1.0 NEG AI [facility] Comment: Test Performed at: [employer] [facility]ITAL[facility] [address] [facility] [place] [address] LUISA LAWRENCE DO,MPH 03/31/2021 9:59 AM CDT 03/31/2021 9:59 AM CDT Mitchell Zamarripa MD LAB - CHEMISTRY INGRID DE GUZMAN Performing Organization Address [facility] Co de Phone Number [facility] [phone] [place] [address] * DNA ANTIBODY DOUBLE STRANDED (03/31/2021 9:59 AM CDT) dsDNA Antibody <1 IU/mL [facility] Comment: IU/mL Interpretation < or = 4 Negative 5-9 Indeterminate > or = 10 Positive Test Performed at: [employer], [employer] [address] LUISA LAWRENCE DO,MPH 03/31/2021 9:59 AM CDT 03/31/2021 9:59 AM CDT Mitchell Zamarripa MD LAB - HEMATOLOGY SANAZ ORANTES Performing Organization Address [facility] Co de Phone Number [facility] [phone] [place] [address] * MARHTA-1 ANTIBODY (03/31/2021 9:59 AM CDT) Martha-1 Antibody <1.0 NEG <1.0 NEG AI [facility] Comment: Test Performed at: [employer] [address] LUISA LAWRENCE DO,MPH 03/31/2021 9:59 AM CDT 03/31/2021 9:59 AM CDT Mitchell Zamarripa MD LAB - CHEMISTRY INGRID DE GUZMAN Performing Organization Address [facility] Co de Phone Number [place] [phone] * ALDOLASE (03/31/2021 9:59 AM CDT) Only the most recent of3 resultswithin the time period is included. Aldolase 5.2 < OR = 8.1 U/L [facility] Comment: Test Performed at: [employer] [address] [employer], [employer] [address] LUISA LAWRENCE DO,MPH 03/31/2021 9:59 AM CDT 03/31/2021 9:59 AM CDT Mitchell Zamarripa MD LAB - CHEMISTRY INGRID DE GUZMAN Performing Organization Address [facility] Co de Phone Number [facility] [phone] [place] [address] * LDH BLOOD (03/31/2021 9:59 AM CDT) Only the most recent of3 resultswithin the time period is included. LD-Total 181 120 - 250 U/L [facility] Comment: Test Performed at: [employer] [address] LUISA LAWRENCE DO,MPH 03/31/2021 9:59 AM CDT 03/31/2021 9:59 AM CDT Mitchell Zamarripa MD LAB - CHEMISTRY INGRID DE GUZMAN Performing Organization Address [facility] Co de Phone Number [facility] [phone] [place] [address] * CK BLOOD (03/31/2021 9:59 AM CDT) Only the most recent of3 resultswithin the time period is included. CK 68 29 - 143 U/L [facility] Comment: Test Performed at: [employer] [address] LUISA LAWRENCE DO,MPH 03/31/2021 9:59 AM CDT 03/31/2021 9:59 AM CDT Mitchell Zamarripa MD LAB - CHEMISTRY INGRID DE GUZMAN Performing Organization Address [facility] Co de Phone Number [facility] [address] [place] [phone] * CULTURE URINE REFLEXED I (12/21/2019 8:29 AM CDT) Reflexive Urine Culture NO CULTURE INDICATED [facility] Comment: Test Performed at: [employer], [employer] [address] LUISA LAWRENCE DO,MPH 12/21/2019 8:29 AM CDT 12/21/2019 8:31 AM CDT Mitchell Zamarripa MD LAB - MICROBIOLOGY O RDERABLES Performing Organization Address [facility] de Phone Number [facility] [address] [place] [address] * (ABNORMAL) URINALYSIS W/MICROSCOPIC REFLEX TO CULTURE (12/21/2019 8:29 AM CDT) Color UA YELLOW YELLOW [facility] Appearance CLOUDY(A) CLEAR [facility] Specific [place] UA 1.016 1.001 - 1.035 [facility] pH [...] MUCOUS THREADS [facility] Comment: Test Performed at: [employer] [facility] [place] [address] LUISA LAWRENCE DO,MPH Reflexive Urine Culture NO CULTURE INDICATED [facility] Comment: REPORT COMMENT: FASTING:YES Test Performed at: [place] [address] LUISA LAWRENCE DO,MPH Urine URINE SPECIMEN OBTAINED BY CLEAN CATCH PROCEDURE / Unknown 12/21/2019 8:29 AM CDT 12/21/2019 8:31 AM CDT Mitchell Zamarripa MD LAB - URINALYSIS ORD ERABLES Performing Organization Address [facility] Co de Phone Number [facility] [address] [place] [address] * (ABNORMAL) TY BLOOD SINGLE PATTERN (07/23/2019 2:21 PM PAD EXTRACTOR TENDER) TY Pattern Speckled( A) 07/25/2019 5:39 PM PAD EXTRACTOR TENDER [employer] ([facility]) TY Titer 1:80(A) 07/25/2019 5:39 PM PAD EXTRACTOR TENDER [employer] [facility] ([facility]) Comment: Performed by [employer] [address] [place] [address],[place] [address] [email or web address], Barry Carmona MD, Lab. Director Blood BLOOD SPECIMEN / Unknown Lab Venipuncture / Unknown 07/23/2019 2:21 PM PAD EXTRACTOR TENDER 07/23/2019 3:13 PM PAD EXTRACTOR TENDER Janes Smith MD LAB - CHEMISTRY INGRID DE GUZMAN [facility] [employer] [facility]) [address] [place] [address], [facility] * (ABNORMAL) SCLERODERMA COMPREHENSIVE AB PANEL (07/23/2019 2:21 PM PAD EXTRACTOR TENDER) TY HEp-2 IgG Detected(H ) <1:80 07/26/2019 7:52 PM PAD EXTRACTOR TENDER [facility] [employer] ([facility]) TY Interpretive Comment See Note 07/26/2019 7:52 PM PAD EXTRACTOR TENDER [facility] [employer] ([facility]) Comment: Speckled Pattern Clinical associations: SLE, SSc, SjS, DM, PM, MCTD, UCTD. May also be found in healthy individuals Main autoantibodies: Anti-SSA-52 (Ro52), anti-SSA-60 (Ro60), anti-SS-B/LA, anti-Kareem-1 (anti-Scl-70), Montiel, anti-U1-ENVIRONMENTAL ENGINEER SCIENTIST, anti-U2-ENVIRONMENTAL ENGINEER SCIENTIST, anti-Mi-2, anti-TIF1g, anti-Ku, anti-RNA polymerase, anti-DFS70/LEDGF-P75 Clinical [...] 0 - 40 AU/mL 07/26/2019 7:52 PM [facility] [employer] ([facility]) Comment: INTERPRETIVE INFORMATION: Scleroderma (Scl-70) (LAUREN) Ab, [...] testing for centromere, RNA polymerase III and U3-ENVIRONMENTAL ENGINEER SCIENTIST, PM/Scl, or Th/To antibodies. RNA Polymerase 3 Antibody IgG 5 0 - 19 Units 07/26/2019 7:52 PM [facility] [employer] ([facility]) Comment: INTERPRETIVE INFORMATION: RNA Polymerase III Antibody, [...] antibodies associated with SSc, including centromere, Scl-70, U3-ENVIRONMENTAL ENGINEER SCIENTIST, PM/Scl, or Th/To. Montiel/ENVIRONMENTAL ENGINEER SCIENTIST (LAUREN) Antibody IgG 1 0 - 40 AU/mL 07/26/2019 7:52 PM [facility] [employer] ([facility]) Comment: INTERPRETIVE INFORMATION: Montiel/ENVIRONMENTAL ENGINEER SCIENTIST (LAUREN) Antibody, IgG 29 AU/mL or Less ............. Negative 30 - 40 AU/mL ................ Equivocal 41 AU/mL or Greater .......... Positive Montiel/ENVIRONMENTAL ENGINEER SCIENTIST antibodies are frequently seen in patients with mixed connective tissue disease (MCTD) and are also associated with other systemic autoimmune rheumatic diseases (SARDs) such as systemic lupus erythematosus (SLE), systemic sclerosis, and myositis. Antibodies targeting the Montile/ENVIRONMENTAL ENGINEER SCIENTIST antigenic complex also recognize Montiel antigens, therefore, the Montiel antibody response must be considered when interpreting these results. PM/Scl 100 Antibody IgG Negative Negative 07/26/2019 7:52 PM [facility] [employer] ([facility]) Comment: INTERPRETIVE INFORMATION: PM/Scl-100 Antibody, IgG by [...] occur. Test developed and characteristics determined by [employer] See Compliance Statement D: [employer] Fibrillarin (U3 ENVIRONMENTAL ENGINEER SCIENTIST) Antibody IgG Negative Negative 07/26/2019 7:52 PM PAD EXTRACTOR TENDER [facility] [employer] ([facility]) Comment: Interpretive Information: Fibrillarin (U3 ENVIRONMENTAL ENGINEER SCIENTIST) Antibody, IgG The presence of fibrillarin (U3-ENVIRONMENTAL ENGINEER SCIENTIST) IgG antibodies in association with an TY [...] a multi-ethnic cohort of SSc patients (n=98), U3-ENVIRONMENTAL ENGINEER SCIENTIST antibodies detected by immunoblot had an agreement of 98.9 percent with the gold standard immunoprecipitation (IP) assay. Approximately 71 percent (5/7) of the borderline U3-ENVIRONMENTAL ENGINEER SCIENTIST results with TY nucleolar pattern in this cohort were IP negative. Test developed and characteristics determined by [employer] See Compliance Statement D: [email or web address] Performed by [employer] [address] [place] [address] [email or web address], Barry Carmona MD, Lab. Director Blood BLOOD SPECIMEN / Unknown Lab Venipuncture / Unknown 07/23/2019 2:21 PM PAD EXTRACTOR TENDER 07/23/2019 3:13 PM PAD EXTRACTOR TENDER Janes Smith MD LAB - SEROLOGY ORDER XOCHITL [employer] ([facility]) [address] [place] [address], [facility] * CYCLIC CITRUL PEPTIDE ANTIBODY IGG/IGA (CCP) (07/23/2019 2:21 PM PAD EXTRACTOR TENDER) CCP Antibodies IgG/IgA 10 0 - 19 units 07/24/2019 11:06 PM PAD EXTRACTOR TENDER [facility] ([facility]) Comment: Negative <20 Weak positive 20 - 39 Moderate positive 40 - 59 Strong positive >59 Blood BLOOD SPECIMEN / Unknown Lab Venipuncture / Unknown 07/23/2019 2:21 PM PAD EXTRACTOR TENDER 07/23/2019 3:13 PM PAD EXTRACTOR TENDER Narrative [facility] ([facility]) - 07/24/2019 11:06 PM PAD EXTRACTOR TENDER Performed at: - [address] [id number] Radon Inspector: Virginia Mojica MD, Phone: [phone] Janes Smith MD LAB - SEROLOGY ORDER XOCHITL [facility] ([facility]) [address] [place] [address] * DNA ANTIBODY DS CRITHIDIA TITER (07/23/2019 2:21 PM PAD EXTRACTOR TENDER) [facility] dsDNA Antibody IgG <1:10 <1:10 2018 4:54 PM PAD EXTRACTOR TENDER [employer] [facility] ([facility]) Comment: INTERPRETIVE INFORMATION: Double-Stranded DNA (dsDNA) Antibody, [...] recommendations for testing may be found at [email or web address]. Performed by [employer] [address] [place] [address] [id number] [email or web address], Barry Carmona MD, Lab. Director Blood BLOOD SPECIMEN / Unknown Lab Venipuncture / Unknown 07/23/2019 2:21 PM PAD EXTRACTOR TENDER 07/23/2019 3:13 PM PAD EXTRACTOR TENDER Janes Smith MD LAB - SEROLOGY ORDER XOCHITL [facility] ([facility]) [address] * (ABNORMAL) LUPUS ANTICOAGULANT PANEL (07/23/2019 2:21 PM PAD EXTRACTOR TENDER) APTT 28.3 23.0 - 38.4 Seconds 07/24/2019 11:07 AM [facility] PT 11.6(L) 12.1 - 14.8 Seconds 07/24/2019 11:07 AM [facility] INR 0.9 See Comment 07/24/2019 11:07 AM [facility] [place] Buffer 46.5 Seconds 019 11:07 AM [facility] [place] Phospholipid 42.7 Seconds 07/24/2019 11:07 AM [facility] [place] Delta 3.8 <8.0 Seconds 07/24/2019 11:07 AM [facility] Interpretation [place] Negative Negative 07/24/2019 11:07 AM [facility] Comment:Up to 15-20% of crystal ents [...] Lab Venipuncture / Unknown 07/23/2019 2:21 PM PAD EXTRACTOR TENDER 07/23/2019 3:13 PM PAD EXTRACTOR TENDER Janes Smith MD LAB - HEMATOLOGY ORD ERABLES [facility] [address] [phone] * RHEUMATOID FACTOR BLOOD QUANTITATIVE (07/23/2019 2:21 PM PAD EXTRACTOR TENDER) Rheumatoid Factor <15 <30 IU/mL 07/23/2019 3:42 PM [facility] Blood BLOOD SPECIMEN / Unknown Lab Venipuncture / Unknown 07/23/2019 2:21 PM PAD EXTRACTOR TENDER 07/23/2019 3:13 PM PAD EXTRACTOR TENDER Janes Smith MD LAB - CHEMISTRY INGRID DE GUZMAN [place] Organization Address City/State/ZIP Co de Phone Number [facility] [address] [phone] * OCT (06/25/2019 1:43 PM CDT) Anatomical Region Laterality Modality Other 06/25/2019 1:43 PM CDT Janes Smith MD OPHTHALMOLOGY SERVIC ES ORDERABLES * (ABNORMAL) URINALYSIS REFLEX TO MICROSCOPIC NO CULTURE (05/24/2019 12:43 PM CDT) Color UA Yellow Straw, Yellow, Colorless 05/24/2019 1:10 PM [facility] Clarity UA Clear Clear, Slt Cloudy 05/24/2019 1:10 PM T [facility] Specific [place] UA 1.014 1.005 - 1.030 05/24/2019 1:10 PM [facility] pH UA 7.0 5.0 - 8.0 pH 05/24/2019 1:10 PM [facility] Protein UA Negative Negative mg/dL 05/24/2019 1:10 PM [facility] Glucose UA Negative Negative mg/dL 05/24/2019 1:10 PM [facility] Ketone UA Negative Negative mg/dL 05/24/2019 1:10 PM [facility] Bilirubin UA Negative Negative mg/dL 05/24/2019 1:10 PM [facility] Blood UA Negative Negative 05/24/2019 1:10 PM [facility] Nitrite UA Negative Negative 05/24/2019 1:10 PM [facility] Leukocyte Esterase Negative Negative 05/24/2019 1:10 PM [facility] Urobilinogen UA Negative Negative mg/dL 05/24/2019 1:10 PM [facility] RBC UA 3-5 None Seen, 0-2, 3-5 /HPF 05/24/2019 1:10 PM CDT [facility] WBC UA 0-5 None Seen, 0-5 /HPF 05/24/2019 1:10 PM CDT [facility] Squamous Epithelial Cells UA 3-5(A) None Seen, 0-2 /HPF 05/24/2019 1:10 PM CDT [facility] Urine URINE SPECIMEN OBTAINED BY CLEAN CATCH PROCEDURE / Unknown Collection / Unknown 05/24/2019 12:43 PM CDT 05/24/2019 12:55 PM CDT Narrative [facility] - 05/24/2019 1:10 PM CDT Janes Smith MD LAB - URINALYSIS ORD ERABLES Performing Organization Address City/State/[facility] Co de Phone Number [address] [phone] * XR ANKLE RIGHT 3VW OR MORE [...] soft tissues are normal. Procedure Note Dimas Raiens MD - 05/24/2019 Exam: XR HAND RIGHT [...] units 05/26/2019 6:08 AM CDT [facility] ([facility]) Comment: The reference interval reflects a 3SD or 99th percentile interval, which is thought to represent a potentially clinically significant result in accordance with the International Consensus Statement on the classification criteria for definitive antiphospholipid syndrome (APS). J Thromb Haem 2006;4:295-306. Blood BLOOD SPECIMEN / Unknown Lab Venipuncture / Unknown 05/24/2019 12:10 PM CDT 05/24/2019 12:49 PM CDT Narrative [facility] ([facility]) - 05/26/2019 6:08 AM CDT Performed at: 01 - [address] [id number] Radon Inspector: Virginia Mojica MD, Phone: [phone] Janes Smith MD LAB - SEROLOGY ORDER XOCHITL Performing Organization Address [facility] Co de Phone Number [facility] ([facility]) [address] [place] [address], [place] * BETA-2 GLYCOPROTEIN 1 ANTIBODY IGM (05/24/2019 12:10 PM CDT) [facility] Beta-2 Glycoprotein I Antibody IgM <9 0 - 32 GPI IgM units 05/26/2019 3:07 PM CDT [facility] ([facility]) Comment: The reference interval reflects a 3SD or 99th percentile interval, which is thought to represent a potentially clinically significant result in accordance with the International Consensus Statement on the classification criteria for definitive antiphospholipid syndrome (APS). J Thromb Haem 2006;4:295-306. Blood BLOOD SPECIMEN / Unknown Lab Venipuncture / Unknown 05/24/2019 12:10 PM CDT 05/24/2019 12:49 PM CDT Narrative [facility] ([facility]) - 05/26/2019 3:07 PM CDT Performed at: 01 - [address] [id number] Radon Inspector: Virginia Mojica MD, Phone: [phone] Janes Smith MD LAB - SEROLOGY ORDER XOCHITL Performing Organization Address [facility] Co de Phone Number [facility] ([facility]) [address] [place] [address], [place] * CARDIOLIPIN ANTIBODY IGA (05/24/2019 12:10 PM CDT) Pathologist [facility] Cardiolipin Antibody IgA <9 0 - 11 APL U/mL 05/25/2019 4:09 PM CDT [facility] ([facility]) Comment: Negative: <12 Indeterminate: 12 - 20 Low-Med Positive: >20 - 80 High Positive: >80 Blood BLOOD SPECIMEN / Unknown Lab Venipuncture / Unknown 05/24/2019 12:10 PM CDT 05/24/2019 12:49 PM CDT Narrative [facility] ([facility]) - 05/25/2019 4:09 PM CDT Performed at: [address] [place] [address] [id number] Radon Inspector: Khang Rosario PhD, Phone: [phone] Janes Smith MD LAB - SEROLOGY ORDER XOCHITL Performing Organization Address City/[facility] Co de Phone Number [facility] ([facility]) [address] [place] [address] * CARDIOLIPIN ANTIBODY IGM (05/24/2019 12:10 PM CDT) Pathologist [facility] Cardiolipin Antibody IgM <9 0 - 12 MPL U/mL 05/25/2019 4:09 PM CDT [facility]) Comment: Negative: <13 Indeterminate: 13 - 20 Low-Med Positive: >20 - 80 High Positive: >80 Blood BLOOD SPECIMEN / Unknown Lab Venipuncture / Unknown 05/24/2019 12:10 PM CDT 05/24/2019 12:49 PM CDT Narrative [facility] ([facility]) - 05/25/2019 4:09 PM CDT Performed at: [address] [place] [address] [id number] Radon Inspector: Khang Rosario PhD, Phone: [phone] Janes Smith MD LAB - SEROLOGY ORDER XOCHITL Performing Organization Address City/[facility]/ZIP Co de Phone Number [facility] ([facility]) [address] [place] [address] * CARDIOLIPIN ANTIBODY IGG (05/24/2019 12:10 PM CDT) Pathologist [facility] Cardiolipin Antibody IgG <9 0 - 14 GPL U/mL 05/25/2019 4:09 PM CDT [facility] ([facility]) Comment: Negative: <15 Indeterminate: 15 - 20 Low-Med Positive: >20 - 80 High Positive: >80 Blood BLOOD SPECIMEN / Unknown Lab Venipuncture / Unknown 05/24/2019 12:10 PM CDT 05/24/2019 12:49 PM CDT Narrative [facility] ([facility]) - 05/25/2019 4:09 PM CDT Performed at: [facility] [address] [place] [address] [id number] Radon Inspector: Khang Rosario PhD, Phone: [phone] Janes Smith MD LAB - SEROLOGY ORDER XOCHITL Performing Organization Address City/[facility]/ZIP Co de Phone Number [facility] ([facility]) [address] [place] [address] * MONTIEL (SM) ANTIBODY LAUREN (05/24/2019 12:10 PM CDT) Pathologist [facility] Montiel Antibody 3.4 0.0 - 19.9 Units 05/25/2019 10:05 AM CDT [facility] Comment: LAUREN Antibody Numeric Result Interpretation: <20.0 Units: Negative 20.0 - 39.0 Units: Weakly Positive >39.0 Units: Positive Blood BLOOD SPECIMEN / Unknown Lab Venipuncture / Unknown 05/24/2019 12:10 PM CDT 05/24/2019 12:48 PM CDT Janes Smith MD LAB - CHEMISTRY INGRID DE GUZMAN [address] [phone] * ENVIRONMENTAL ENGINEER SCIENTIST ANTIBODY (05/24/2019 12:10 PM CDT) [facility] SM/ENVIRONMENTAL ENGINEER SCIENTIST Antibody 3.2 0.0 - 19.9 Units 05/25/2019 10:05 AM CDT [facility] Comment: LAUREN Antibody Numeric Result Interpretation: <20.0 Units: Negative 20.0 - 39.0 Units: Weakly Positive >39.0 Units: Positive Blood BLOOD SPECIMEN / Unknown Lab Venipuncture / Unknown 05/24/2019 12:10 PM CDT 05/24/2019 12:48 PM CDT Janes Smith MD LAB - CHEMISTRY INGRID DE GUZMAN Performing Organization Address City/[facility]/ZIP Co de Phone Number [facility] [address] [place] [address] * TY BLOOD SCREEN W/REFLEX TITER (05/24/2019 12:10 PM CDT) TY Negative 05/25/2019 5:07 PM CDT [facility] ([facility]) Comment: Negative <1:80 Borderline 1:80 Positive >1:80 Blood BLOOD SPECIMEN / Unknown Lab Venipuncture / Unknown 05/24/2019 12:10 PM CDT 05/24/2019 12:49 PM CDT Narrative [facility] ([facility]) - 05/25/2019 5:07 PM CDT Performed at: [address] [place] [address] [id number] Radon Inspector: Khang Rosario PhD, Phone: [phone] Janes Simth MD LAB - CHEMISTRY INGRID DE GUZMAN Performing Organization Address City/[facility] Co de Phone Number [facility] ([facility]) [address] [place] [address] * BETA-2 GLYCOPROTEIN 1 ANTIBODY IGA (05/24/2019 12:10 PM CDT) Beta-2 Glycoprotein I Antibody IgA <9 0 - 25 GPI IgA units 05/26/2019 6:08 AM CDT [facility] ([facility]) Comment: The reference interval reflects a 3SD or 99th percentile interval, which is thought to represent a potentially clinically significant result in accordance with the International Consensus Statement on the classification criteria for definitive antiphospholipid syndrome (APS). J Thromb Haem 2006;4:295-306. Blood BLOOD SPECIMEN / Unknown Lab Venipuncture / Unknown 05/24/2019 12:10 PM CDT 05/24/2019 12:49 PM CDT Narrative [facility] ([facility]) - 05/26/2019 6:08 AM CDT Performed at: [address] [place] [address] [id number] Radon Inspector: Virginia Mojica MD, Phone: [phone] Janes Smith MD LAB - SEROLOGY ORDER XOCHITL Performing Organization Address [facility] Co de Phone Number [facility] ([facility]) [address] [place] [address] * COMPLEMENT TOTAL (05/24/2019 12:10 PM CDT) Pathologist [facility] Complement Total CH50 >60 42 - [id number] U/mL 05/25/2019 3:08 PM CDT [facility] ([facility]) Blood BLOOD SPECIMEN / Unknown Lab Venipuncture / Unknown 05/24/2019 12:10 PM CDT 05/24/2019 12:49 PM CDT [facility] ([facility]) - 05/25/2019 3:08 PM CDT Performed at: [address] [place] [address] [place] [address] [id number] Radon Inspector: Khang Rosario PhD, Phone: [phone] Janes Smith MD LAB - CHEMISTRY ORDLeidy DE GUZMAN Performing Organization Address City/[facility] Co de Phone Number [facility]) [address] [place] [address] * VITAMIN D 25-HYDROXY (05/24/2019 12:10 PM CDT) Pathologist [facility] Vitamin D, 25 Hydroxy 62.3 See comment: ng/mL 05/24/2019 1:48 PM CDT [facility] Comment: The recommendations for 25-Hydroxy [...] MD LAB - CHEMISTRY INGRID DE GUZMAN [address] [phone] * COMPLEMENT C4 (05/24/2019 12:10 PM CDT) Complement C4 39 15 - 57 mg/dL 05/24/2019 1:27 PM CDT [facility] Blood BLOOD SPECIMEN / Unknown Lab Venipuncture / Unknown 05/24/2019 12:10 PM CDT 05/24/2019 12:48 PM CDT Janes Smith MD LAB - SEROLOGY ORDER XOCHITL Performing Organization Address [facility]/[place] [address], [facility] [phone] * COMPLEMENT C3 (05/24/2019 12:10 PM CDT) Complement C3 151 82 - 193 mg/dL 05/24/2019 1:27 PM CDT [facility] Blood BLOOD SPECIMEN / Unknown Lab Venipuncture / Unknown 05/24/2019 12:10 PM CDT 05/24/2019 12:48 PM CDT Janes Smith MD LAB - CHEMISTRY INGRID DE GUZMAN Performing Organization Address City/[facility]/[place] [address], [facility] [phone] * CARDIAC RHYTHM STRIP ORDER (11/11/2011 11:11 AM CDT) Narrative Transcriptions Document, Scanned - 11/11/2011 11:11 AM CDT Scanned Document CARDIAC SERVICES ORD ERABLES * CARDIAC ECHOCARDIOGRAM COMPLETE ORDER (11/11/2011 11:11 AM CDT) Narrative Transcriptions Document, Scanned - 11/11/2011 11:11 AM CDT Scanned Document ECHO ORDERABLES * BLOOD TYPE VERIFICATION (10/28/2011 8:35 AM PAD EXTRACTOR TENDER) ABO Rh B Pos SEE BELOW [facility] Comment: Weak D testing is not performed at [facility] BLOOD SPECIMEN / Unknown 10/28/2011 8:35 AM PAD EXTRACTOR TENDER 10/28/2011 9:53 AM PAD EXTRACTOR TENDER Emery Zepeda MD LAB - BLOOD BANK ORD [employer] Performing Organization Address [facility] de Phone Number [facility] [address] [place] [phone] * TYPE + SCREEN PANEL (10/28/2011 8:30 AM PAD EXTRACTOR TENDER) ABO Rh B Pos SEE BELOW [facility] Comment: Weak D testing is not performed at [facility] Antibody Screen Neg [facility] Previous History Check Done Historical blood type on record, type verification complete. [facility] Miscellaneous samples (specimen) BLOOD SPECIMEN / Unknown 10/28/2011 8:30 AM PAD EXTRACTOR TENDER 10/28/2011 9:23 AM PAD EXTRACTOR TENDER Emery Zepeda MD LAB - BLOOD BANK ORD [employer] Performing Organization Address City/[facility] Co de Phone Number [facility] [address] [place] [address] * CBC W/O DIFFERENTIAL (10/28/2011 8:30 AM PAD EXTRACTOR TENDER) WBC 9.4 4.0 - 10.0 K/CUMM [facility] RBC 4.41 3.80 - 5.80 M/CUMM [facility] Hemoglobin 14.1 12.0 - 16.0 gm/dL [facility] Hematocrit 41.2 37.0 - 47.0 % [facility] MCV 93.4 80.0 - 100.0 fl [facility] MCH 32.0 26.0 - 34.0 pg [facility] MCHC 34.2 31.0 - 37.0 gm/dL [facility] RDW 12.5 11.5 - 14.5 % [facility] Platelet Count 373 150 - 400 K/CUMM [facility] Blood specimen (specimen) BLOOD SPECIMEN / Unknown 10/28/2011 8:30 AM PAD EXTRACTOR TENDER 10/28/2011 9:22 AM PAD EXTRACTOR TENDER Emery Zepeda MD LAB - HEMATOLOGY ORD ERABLES Performing Organization Address [facility] Co de Phone Number [facility] [address] [place] [phone] * BASIC METABOLIC PANEL (CALCIUM TOTAL) (10/28/2011 8:30 AM PAD EXTRACTOR TENDER) Sodium 141 136 - 145 mmol/L [facility] Potassium 3.9 3.5 - 5.1 mmol/L [facility] Chloride 103 98 - 107 mmol/L [facility] BUN 15 7 - 21.0 mg/dl [facility] Creatinine 0.86 0.5 - 1.3 mg/dl [facility] Glucose 81 65 - 105 mg/dl [facility] CO2 30 22 - 30 mmol/L [facility] Calcium 9.3 8.5 - 10.1 mg/dl [facility] eGFR by MDRD >60 >60 mL/min/1.7 3m2 [facility] Comment eGFR [facility] Comment: The eGFR does not apply to patients who are younger than 18 or older than 70. Blood specimen (specimen) BLOOD SPECIMEN / Unknown 10/28/2011 8:30 AM PAD EXTRACTOR TENDER 10/28/2011 9:22 AM PAD EXTRACTOR TENDER Emery Zepeda MD LAB - CHEMISTRY ORDLeidy DE GUZMAN Performing Organization Address City/[facility] Co de Phone Number [facility] [address] [place] [address] * CULTURE URINE COMPREHENSIVE (06/12/2011 10:00 AM CDT) Culture SEE NOTE [facility] ([facility]) Comment: CULTURE, URINE, SPECIAL MICRO NUMBER: [id number] TEST STATUS: FINAL SPECIMEN SOURCE: URINE (CATHETER COLLECTED) SPECIMEN QUALITY: ADEQUATE RESULT: No Growth NO COLLECTION DATE RECEIVED. WE HAVE USED THE DATE THE SPECIMEN WAS RECEIVED BY THIS LABORATORY THE COLLECTION DATE. IF THIS IS INCORRECT, PLEASE CONTACT CLIENT SERVICES. PHONE NUMBER: [phone] Test Performed at: [employer] [address] [id number] LUISA LAWRENCE DO Urine specimen (specimen) URINE SPECIMEN COLLECTION, CATHETERIZED / Unknown 06/12/2011 10:00 AM CDT 06/10/2011 1:12 AM CDT Narrative [facility] ([facility]) - 06/12/2011 10:00 AM CDT Preferred Lab:->[facility] Emery Zepeda MD LAB - MICROBIOLOGY O RDERABLES [email or web address] ([facility]) * URINALYSIS - POINT OF CARE (AMB) [facility] (08/29/1998 12:00 AM PAD EXTRACTOR TENDER) Glucose UA neg [facility] Bilirubin UA POCT neg [facility] Ketones UA POCT neg [facility] Specific [place] UA 1.010 [facility] Blood Urine POCT neg [facility] pH UA 5.0 [facility] Protein [facility]A neg [facility] Urobilinogen UA neg [facility] Nitrite UA neg [facility] WBC UA neg [facility] Urine specimen (specimen) 08/29/1998 Emery Zepeda MD LAB - POINT OF CARE ORDERABLES [facility] Care Teams Recording Clerk Relationship Specialty Start Date End Date Shandra Rfufin, ASSOCIATE DATA SCIENTIST-ELECTRIC BATH ATTENDANT [address] [place] [address] PCP - General 04/02/22
--- OUTSIDE RECORDS SUMMARY | 2024-10-09 13:17 | XMS_ITS | Clinical Summary ---
Author Organization [facility] Address [address] [place] [address] Phone Care Team Providers Care Software Controls Engineer Name Role Phone JAM MCDONNELL PA-C Primary Care Provider [phone] Reason for Visit and Chief Complaint HEART [...] Diagnosis HEART CENTER FOLLOW UP TIFFANY HOWARD [facility]- 3 1:47PM 2:40PM Insurance Includes: Active Insurance Policies Plan Name Member ID Group # Subscriber Relationship Effect cyn Dates 1 - [employer]AGE [id number] NIGHAT DELANEY Self Clinical Notes Includes: Clinical Notes from this encounter No Clinical Notes Recorded
--- OUTSIDE RECORDS SUMMARY | 2024-10-09 13:17 | XMS_ITS | Clinical Summary ---
Author Organization [facility] Address [address] [place] [address] Phone Care Team Providers Care Waste/Materials Exchange Specialist Name Role Phone JAM MCDONNELL PA-C Primary Care Provider [phone] Reason for Visit and Chief Complaint HOSPITAL [...] (adult) (pediatric), Essential (primary) hypertension TIFFANY Chaudhari [facility] 12/13/2023 Last Documented On 4 2:24PM ; [facility] Medical History Includes: Medical [...] Diagnosis HOSPITAL FOLLOW UP EXAM TIFFANY SAUCEDO [facility]- 4 12:43PM 1:47PM Insurance Includes: Active Insurance Policies Plan Name Member ID Group # Subscriber Relationship Effect cyn Dates 1 - [employer] ADVANTAGE [id number] NIGHAT DELANEY Self Clinical Notes Includes: Clinical Notes from this encounter No Clinical Notes Recorded
--- OUTSIDE RECORDS SUMMARY | 2024-10-09 13:18 | XMS_ITS | Clinical Summary ---
Author Organization [facility] Address [address] [place] [address] Phone Care Team Providers Care Drawing Frame Tender Name Role Phone JAM MCDONNELL PA-C Primary Care Provider [phone] Reason for Visit and Chief Complaint ECHOCARDIOGRAM [...] Check-Out Time Diagnosis ECHOCARDIOGRAM [facility] GR[facility] 08/02/20 23 8:35AM 9:29AM Insurance Includes: Active Insurance Policies Plan Name Member ID Group # Subscriber Relationship Effect cyn Dates 1 - [place] [employer]AGE [id number] NIGHAT DELANEY Self Clinical Notes Includes: Clinical Notes from this encounter No Clinical Notes Recorded
--- OUTSIDE RECORDS SUMMARY | 2024-10-09 13:18 | XMS_ITS | Encounter Summary ---
Author Organization [facility] Address [address] [place] [address] Care Team Providers Care Resawyer Name Role Phone Yg Lee MD Primary Care Provider [phone] Shandra Ruffin APRN-[facility] Primary Care Provider Yg Lee MD Primary Care Provider [phone] Shandra Ruffin APRN-[facility] Primary Care Provider Yg Lee MD Primary Care Provider [phone] Shandra Ruffin APRN-[facility] Primary Care Provider Encounter Details Date Type Department Care Team (Late st Contact Info) Description 05/18/2019 Telephone [facility] [address] [place] [address] Mitchell Zamarripa MD [address] [place] [address] [place] [address] Social History Tobacco Use Types [...] a call. [place] Patient Call Back number: [phone]. documented in this encounter Plan of Treatment Not on file documented as of this encounter Visit Diagnoses Not on filedocumented in this encounter Care Teams Resawyer Relationship Specialty Start Date End Date Yg Lee MD [address] [place] [phone] PCP - General 10/28/11 05/23/19 Shandra Ruffin APRN-ROLL OFF DRIVER [address] [place], [place] [phone] PCP - General 05/24/19 07/20/20 Yg Lee MD [address] [place], [place] [phone] PCP - General Internal Medicine 07/21/20 07/21/20 Shandra Ruffin APRN-ROLL OFF DRIVER [address] [place], [place] [phone] PCP - General 07/22/20 11/15/21 Yg Lee MD [address] [place] [phone] PCP - General Internal Medicine 11/16/21 04/01/22 Shandra Ruffin APRN-ROLL OFF DRIVER [address] [place], [place] [phone] PCP - General 04/02/22 documented as of this encounter
== END 2024-10-09 12:10 | disposition home or self-care (01) ==
LOC: ANHSURGERY 12:18
PROVIDERS: Anesthesiology; PCP Internal Medicine; Visit Provider Orthopaedic Surgery
DX: Z01.818 Encounter for other preprocedural examination (principal); Z51.81 Encounter for therapeutic drug level monitoring; I10 Essential (primary) hypertension; R94.31 Abnormal electrocardiogram [ECG] [EKG]
CPT/HCPCS: 36415; 80048; 80162; 93005

== ENCOUNTER 2024-10-11 00:21 | Day surgery (SDC) | payer OTHER, SELFPAY ==
[2024-10-05 15:16] VITALS: BMI 26.4
--- NOTE | 2024-10-05 15:18 | PC.NURSE ---
Report to the Outpatient Waiting Room, entrance under the green pavilion located off [facility], at time _0700_ on date _[id number]_. Planned Procedure Time: _0900_.? Time changes happen often and if your time is changed the preop area will call you the afternoon before. - You and your visitor will be asked to self-screen and do not enter if you have any COVID symptoms. Please call surgeon if you need to reschedule. - A mask is optional within the hospital at this time. Patients may have clear liquids (water, carbonated beverages, clear teas, apple juice) until 3 hours prior to surgery with a maximum of 20 ounces. - No food from midnight until time of surgery and no smoking, or chewing tobacco (or any form of nicotine). No chewing gum, candy or mints. Take only the following medications with a SIP of water on the morning of surgery: __Carvidilol, Digoxin, Diltiazem, Duloxetine, Isosorbide, Levothyroxine and if needed Alprazolam DO NOT STOP ANY OF YOUR OTHER PRESCRIPTION MEDICATIONS PRIOR TO SURGERY EXCEPT THE FOLLOWING Hold all vitamins and supplements for 3 days per anesthesiologist. Medications to discontinue per physician ____Celebrex____ Date to take last dose__Stop now.____ Please no make-up, nail qatari, hairspray, perfume, deodorant, or body powder the day of surgery.? No jewelry (including any body piercings) or valuables the day of surgery, leave them at home.? Please take a shower or bath the night before, or the morning of, surgery with an antibacterial soap.? Wear comfortable, loose fitting clothing.? - Jewelry must be removed prior to entering the operating room.? Rings and piercings that are not removed may be cut off. - The hospital will not accept responsibility for valuables.? - Please leave all valuables, including medications, at home the day of surgery. If you are going home after surgery, a licensed food service driver must drive you home.? - NO public transportation without another adult if you receive anesthesia. - We recommend that an adult stay with you for 24 hours following discharge. - We also recommend that you do not drive, make important decision, drink alcoholic beverages, or take any drugs that were not prescribed by your health care provider for at least 24 hours after your discharge time. Follow any additional instructions given to you from your surgeon. Telephone instructions given to __Antoinette__and asked if any additional questions and then verbalized understanding. Patient advised to call surgeon office or pre surgery nurse liaison [phone] if any additional questions
[2024-10-11] VITALS (8 sets, daily range): BP systolic 140–169; BP diastolic 87–109; PULSE 84–101; RESP 14–18; TEMP 36.5–36.7; O2SAT 92–97
--- NOTE | ~2024-10-11 | XR_ITS ---
EXAMINATION: XR surgery orthopedic DATE: 10/11/2024 11:29 INDICATION: ORIF right wrist fracture TECHNIQUE: 3 fluoroscopic images of the right forearm were obtained during procedure performed by Dr. Muller. Radiologist was not present for the imaging or procedure. The amount of fluoroscopy time u sed during this procedure was 1.2 minutes. Total DAP was 0.0388 mGycm^2. COMPARISON: None. FINDINGS: Interval reduction internal fixation of the distal ulnar metaphyseal fracture with plate an d screw fixation and of the comminuted distal metaphyseal fracture of the radius with volar T plate a nd screw fixation. Alignment is now near-anatomic. Expected small amount of soft tissue gas at the op erative bed. IMPRESSION: 1. Near-anatomic alignment post open reduction internal fixation of right radial and ulnar fractures as detailed above. See procedure note for further detail. Reviewed, dictated and finalized at location [facility]. [employer] IMPRESSION: 1. Near-anatomic alignment post open reduction internal fixation of right radia l and ulnar fractures as detailed above. See procedure note for further detail.
--- OUTSIDE RECORDS SUMMARY | 2024-10-11 00:24 | XMS_ITS | Referral Summary ---
Author Organization [facility] Address [address] [place] [address] Care Team Providers Care Grommet Worker Name Role Phone Shandra Ruffin Malcolm WISDOM-FISCAL ANALYST Primary Care Provider Source Comments [facility],non-owned Affiliates and Associated Physician Practices is amultiple site organization consisting of ambulatory clinics and hospital sitesin [place], [place], [place] and [place]. This disclosure is being madepursuant to the Care Everywhere program and may not contain all information available regarding this patient. Last updated 18.[facility] Allergies Active Allergy Reactions Criticality Noted Date [...] LURIA, FLUZONE TRIVALENT; 6MO+) (IIV3) 06/16/2016,06/11/2015,06/01/2014,2012,06/14/2012,06/01/2011 Covid Evolero primary monoval ent 12+ yr 0.3mL Purple [...] Comments COMPREHENSIVE METABOLIC PANEL 08/31/2022 9:26 AM HOLLOW TILE PARTITION ERECTOR from Last 3 Months or Most Recently Relevant to Health Maintenance Results * (ABNORMAL) COMPREHENSIVE METABOLIC PANEL (08/31/2022 9:26 AM HOLLOW TILE PARTITION ERECTOR) Glucose 105(H) 65 - 99 mg/dL [facility] [...] 29 U/L [facility] Comment: Test Performed at: [facility] [address] [place] [address] LUISA LAWRENCE DO,MPH 08/31/2022 9:26 AM HOLLOW TILE PARTITION ERECTOR 08/31/2022 9:27 AM HOLLOW TILE PARTITION ERECTOR Mitchell Zamarripa MD LAB - CHEMISTRY INGRID DE [facility] Organization Address City/State/ZIP Co de Phone Number [facility] [address] [place] [address] from Last 3 Months or Most Recently Relevant to Health Maintenance Advance Directives * FULL RESUSCITATION (Latest Code Status on File) Date Activated Date Inactivated Comments 11/08/2011 12:50 PM 11/10/2011 12:21 AM Care Teams Grommet Worker Relationship Specialty Start Date End Date Shandra Ruffin, [employer] FARM-FISCAL ANALYST [address] [place] [id number] PCP - General 04/02/22
--- OUTSIDE RECORDS SUMMARY | 2024-10-11 00:25 | XMS_ITS ---
Care Plan - [facility] Created on: October 11, 2024 NIGHAT DELANEY : 1960 Sex: Female Author Organization [facility] Address [address] [place] [address] Phone Care Team Providers Care Java Web User Interface Developer Name Role Phone JAM MCDONNELL PA-C Primary Care Provider [phone]
--- OUTSIDE RECORDS SUMMARY | 2024-10-11 00:25 | XMS_ITS | Clinical Summary ---
Author Organization [facility] Address [address] [place] [address] Phone Care Team Providers Care Content Development Specialist Name Role Phone Jose Cruz Ledezma Primary Care Provider [phone] Allergies Active Allergy Reactions Criticality Noted Date [...] age to complete this topic Insurance MEDICARE [employer] GENERIC Care Teams Content Development Specialist Relationship Specialty Start Date End Date Jose Cruz Ledezma PAC [address] [place] [id number] PCP - General Physician Squadron Worker 01/28/20
--- OUTSIDE RECORDS SUMMARY | 2024-10-11 00:25 | XMS_ITS | Clinical Summary ---
Author Organization [facility] Address [address] [place] [address] Care Team Providers Care Clinical Allergist Name Role Phone Mariah Adams MD Primary Care Provider + Mitchell Zamarripa MD Unavailable [phone] Brit More NP Unavailable [phone] Cliff Ronquillo NP Unavailable Dick Aguilar Unavailable [phone] Gavin Sewell MD Unavailable Allergies Active Allergy [...] 1 tablet (100 mcg total) by mouth garment turner before breakfast 1 Active celecoxib (CeleBREX) 100 [...] 08/14/2024 Assessment & Plan (08/14/2024 9:48 AM FORMING MILL OPERATOR): The patient likely has chronic cholecystitis [...] atrial fibrillation 11/25/2023 ACS (acute coronary syndrome) ([facility]) 11/23/19 Persistent atrial fibrillation 11/22/2023 [...] (04/23/2022): Added automatically from request for surgery [id number] Posterior tibial tendon dysfunction 03/02/2022 Flat foot [...] 01/04/2018 Assessment & Plan (09/19/2018 1:30 PM FORMING MILL OPERATOR): Low disease activity today on exam. [...] Department Care Team Description 09/10/2024 9:16 AM FORMING MILL OPERATOR Anesthesia Event [facility] Operating Room [address] [place] [address] Tonia Gutierrez MD Reynolds, Ethan Emerson, MD 09/10/2024 9:15 AM FORMING MILL OPERATOR - 09/10/2024 10:45 AM FORMING MILL OPERATOR Surgery [facility] Operating Room [address] [place] [address] Vignesh Hawkins MD LAPAROSCOPIC CHOLECYSTECTOMY 09/10/2024 8:13 AM FORMING MILL OPERATOR - 09/10/2024 2:39 PM FORMING MILL OPERATOR Hospital Encounter [facility] Operating Room [address] [place] [address] Vignesh Hawkins MD Calculus of gallbladder with cholecystitis without biliary obstruction, unspecified cholecystitis acuity Discharge Disposition: Discharge to home or self care 08/14/2024 9:30 AM FORMING MILL OPERATOR Office Visit [facility] [address] [facility] [address] [place] [address] Vignesh Hawkins MD Calculus of gallbladder with cholecystitis without biliary obstruction, unspecified cholecystitis acuity 07/24/2024 7:58 AM FORMING MILL OPERATOR - 07/24/2024 11:59 PM FORMING MILL OPERATOR Hospital Encounter [facility] [address] [place] [address] Hepatomegaly, not elsewhere classified; Hepatomegaly Discharge Disposition: Discharge to home or self care 07/22/2024 8:25 AM FORMING MILL OPERATOR - 07/22/2024 10:10 AM FORMING MILL OPERATOR Emergency [facility] Emergency Department [address] [place] [address] Mike Suarez MD Bronchitis (Primary Dx) Discharge [...] How often do you attend chur or yazidi services? Never 12/23/2022 Do you belong to any clubs o r organizations such as jainism groups, unions, fraternal or athletic groups, or [...] staff should administer the PHQ-9) 0 11/23/2023 [facility] - Occupational [...] on file Legal Sex Female 11:50 PM FORMING MILL OPERATOR Gender Identity Not on file Sexual Orientation Not on file Obstetrics History Last Filed Vital Signs Vital Sign Reading Time Taken Comments Blood Pressure 119/69 09/10/2024 2:00 PM FORMING MILL OPERATOR Pulse 69 09/10/2024 2:00 PM FORMING MILL OPERATOR Temperature 36.4 C (97.6 F) 09/10/2024 2:00 PM FORMING MILL OPERATOR Respiratory Rate 16 09/10/2024 2:00 PM FORMING MILL OPERATOR Oxygen Saturation 94% 09/10/2024 2:00 PM FORMING MILL OPERATOR Inhaled Oxygen Concentration - - Weight 67.6 kg (149 lb 0.5 oz) 09/10/2024 8:15 A M FORMING MILL OPERATOR Height 154.9 cm (5' 1 ) 09/10/2024 8:15 AM FORMING MILL OPERATOR Body Mass Index 28.16 09/10/2024 8:15 AM FORMING MILL OPERATOR Plan of Treatment Health Maintenance Due Date [...] Completed 11/01/2014 Medical Devices Implanted Type Area Mortuary Operations Manager Device Identifier Shelf Expiration Date Model / Serial / Lot Exactech Restrictor Cement Cemex Small Od13mm Tpa-13 - [id number] Implanted:Qty: 1 on 05/04/2022 by Gavin Sewell MD at [facility] Left: Shoulder Exactech 08/28/2023 TPA-13 / / [id number] Exactech Equinoxe Reverse Shoulder +0mm Tray Humeral Adapter 320-10-00 - [id number] - [id number] Implanted:Qty: 1 on 05/04/2022 by Gavin Sewell MD at [facility] Ex[employer]ech [id number] 04/07/2032 320-10-00 / [id number] / Exactech Equinoxe 40mm Small Reverse Constrain Shoulder +2.5mm Liner 320-40-13 - [id number] - [id number] Implanted:Qty: 1 on 05/04/2022 by Gavin Sewell MD at [facility] [employer]ech 01/31/2024 320-40-13 / [id number] / Exactech Equinoxe Lock Reverse Shoulder Glenosphere Screw Bone 320-15-05 - [id number] - [id number] Implanted:Qty: 1 on 05/04/2022 by Gavin Sewell MD at [facility] Left: Shoulder Ex[employer]ech 03/09/2027 320-15-05 / [id number] / Exactech Reverse Torque Define Shoulder Kit Screw 320-20-00 - [id number] - [id number] Implanted:Qty: 1 on 05/04/2022 by Gavin Sewell MD at [facility] Left: Shoulder [employer]ech 02/03/2027 320-20-00 / [id number] / Exactech Equinoxe Small Reverse Superior Posterior Augment Shoulder Left 320-35-07 - [id number] - [id number] Implanted:Qty: 1 on 05/04/2022 by Gavin Sewell MD at [facility] Left: Shoulder [employer]ech [id number] 04/08/2031 320-35-07 / [id number] / Exactech Equinoxe 10mm Stem Humeral Sterile 300 - [id number] - [id number] Implanted:Qty: 1 on 05/04/2022 by Gavin Sewell MD at [facility] Left: Shoulder Ex[employer]ech [id number] 09/07/2031 300 / [id number] / [employer] Cement Bone Simplex Gentamicin High Viscosity 40gm 6195-1-001 - [id number] Implanted:Qty: 1 on 05/04/2022 by Gavin Sewell MD at [facility] Left: Shoulder [employer] 09/28/2023 6195-1-001 / / [id number] Exactech Equinoxe 40mm 24.3mm Small Reverse Shoulder Sphere Glenoid 320-31-40 - [id number] - [id number] Implanted:Qty: 1 on 05/04/2022 by Gavin Seewll MD at [facility] Left: Shoulder Ex[employer]ech [id number] 12/11/2030 320-31-40 / [id number] / Exactech Equinoxe 4.5mm 38mm Kit Compression Lock Cap Reverse Shoulder 320-20-38 - [id number] - [id number] Implanted:Qty: 1 on 05/04/2022 by Gavin Sewell MD at [facility] Left: Shoulder [employer]ech [id number] 01/12/2027 320-20-38 / [id number] / Exactech Equinoxe 4.5mm 34mm Kit Compression Lock Cap Reverse Shoulder 320-20-34 - [id number] - [id number] Implanted:Qty: 1 on 05/04/2022 by Gavin Sewell MD at [facility] Left: Shoulder Exactech [id number] 07/14/2026 320-20-34 / [id number] / [employer] Insert Tibial Knee Fixed Lm Posterior Stabilized Attune 7mm Size 5 Polyethylene [id number] - [id number] Implanted:Qty: 1 on 11/10/2022 by Gavin Sewell MD at [facility] Left: Knee [employer] 07/28/2030 [id number] / / [id number] [employer] Attune Cruciate Retain Cementless Knee Left 5 Component Femoral [id number] - [id number] Implanted:Qty: 1 on 11/10/2022 by Gavin Sewell MD at [facility] Left: Knee [employer] 04/28/2032 [id number] / / [id number] [employer] Attune Fb Tib Base Sz 5 Por [id number] - [id number] Implanted:Qty: 1 on 11/10/2022 by Gavin Sewell MD at [facility] Left: Knee [employer] 03/28/2032 [id number] / / [id number] Procedures Procedure Name Priority Date/Time Associated Diagnosis Comments SURGICAL PATHOLOGY Routine 09/10/2024 10:29 AM FORMING MILL OPERATOR Calculus of gallbladder with cholecystitis without biliary obstruction, unspecified cholecystitis acuity [place] AN ELECTIVE ENDOTRACHEAL AIRWAY Routine 09/10/2024 9:36 AM FORMING MILL OPERATOR LAPAROSCOPIC CHOLECYSTECTOMY 09/10/2024 9:02 AM FORMING MILL OPERATOR Calculus of gallbladder with cholecystitis without biliary obstruction, unspecified cholecystitis acuity EGFR STAT 09/10/2024 8:47 AM FORMING MILL OPERATOR DIFFERENTIAL AUTO STAT 09/10/2024 8:4 7 AM FORMING MILL OPERATOR ANTIBODY SCREEN STAT 09/10/2024 8:47 AM FORMING MILL OPERATOR ABO/RH STAT 09/10/2024 8:47 AM FORMING MILL OPERATOR TYPE AND SCREEN STAT 09/10/2024 8:47 AM FORMING MILL OPERATOR CBC WITH AUTO DIFFERENTIAL STAT 09/10/2024 8:47 AM FORMING MILL OPERATOR COMPREHENSIVE METABOLIC PANEL STAT 09/10/2024 8:47 AM FORMING MILL OPERATOR B ABO / RH CONFIRMATION TESTING STAT 09/10/2024 8:45 AM FORMING MILL OPERATOR US ABDOMEN COMPLETE Schedule Routine, Read Routine (OP Routine) 07/24/2024 9:00 AM FORMING MILL OPERATOR Hepatomegaly XR CHEST 1 VIEW ED 07/22/2024 9:06 AM FORMING MILL OPERATOR EGFR STAT 07/22/2024 8:48 AM FORMING MILL OPERATOR DIFFERENTIAL AUTO STAT 07/22/2024 8:4 8 AM FORMING MILL OPERATOR MAGNESIUM Routine 07/22/2024 8:48 AM FORMING MILL OPERATOR COMPREHENSIVE METABOLIC PANEL STAT 07/22/2024 8:48 AM FORMING MILL OPERATOR CBC WITH AUTO DIFFERENTIAL STAT 07/22/2024 8:48 AM FORMING MILL OPERATOR INFLUENZA A/B, RSV, AND COVID-19 PCR Routine 07/22/2024 8:41 AM FORMING MILL OPERATOR SERUM HEPATITIS C AB Routine 11/01/2014 8:32 AM FORMING MILL OPERATOR DIGITAL MAMMOGRAPHY Routine 12/11/2013 11:01 AM CDT from Last 3 Months or Most Recently Relevant to Health Maintenance Results * Surgical pathology (09/10/2024 10:29 AM FORMING MILL OPERATOR) Tissue (Gallbladder) 09/10/2024 9:51 AM FORMING MILL OPERATOR Narrative PATHOLOGY [facility] ([place]) - 09/11/2024 3:50 PM FORMING MILL OPERATOR EPIC results best viewed via link to PDF [facility] Department of Pathology [address] [place] [id number] Note to Patients: This report may contain [...] Final Report Patient Name: ANTOINETTE DELANEY Address: [address] [place] [address] Gender: F : 1960 (Age: 64) Service: Surgery Location: PENDING SALE TO [facility] Hospital #: [id number] Patient Type: [facility] Taken: 09/10/2024 Received: 09/10/2024 Accessioned: [...] determined by the Surgical Pathology Department at [facility] as part of an ongoing senior quality analyst program and in compliance with federally mandated [...] characteristics determined by the Surgical Pathology Department [facility]. It has not been cleared or approved by the U. S. Food and Drug Administration. Note for decalcified specimens: This assay has not been validated on decalcified tissues. Results should be interpreted with caution given the possibility of false negativity on decalcified specimens Vignesh Hawkins MD LAB PATHOLOGY OR DERABLES Final Result Performing Organization Address City/State/[facility] Co de Phone Number PATHOLOGY [facility] ([address] [address] * [place] AN ELECTIVE ENDOTRACHEAL AIRWAY (09/10/2024 9:36 AM FORMING MILL OPERATOR) [place] CRNA - 09/10/2024 9:36 AM FORMING MILL OPERATOR Cliff Davis CRNA 09/10/2024 9:37 AM [...] nal Result * eGFR (09/10/2024 8:47 AM FORMING MILL OPERATOR) eGFR >90 >=60 mL/min/1. 73 m2 [...] last reviewed 2021. Blood 09/10/2024 8:47 AM FORMING MILL OPERATOR 09/10/2024 8:50 AM FORMING MILL OPERATOR us Vignesh Hawkins MD LAB BLOOD ORDERA BLES Final Result [facility] ([place]) [address] [facility] [place] [address] * Differential, auto (09/10/2024 8:47 AM FORMING MILL OPERATOR) Neutrophil abs 5.3 1.5 - 6.5 K/cumm Imm gran abs 0.0 0.0 - 0.1 K/cumm [facility] ([place]) Lymphocyte abs 0.8 0.8 - 3.3 K/cumm [...] revised on 2017. Blood 09/10/2024 8:47 AM FORMING MILL OPERATOR 09/10/2024 8:50 AM FORMING MILL OPERATOR us Vignesh Hawkins MD LAB BLOOD ORDERA BLES Final Result [facility] ([place]) [address] [facility] Department [place] [address] * (ABNORMAL) CBC with auto differential (09/10/2024 8:47 AM FORMING MILL OPERATOR) Pathologist [facility] WBC 7.1 3.8 - 9.9 K/cumm Hgb [...] [facility] ([place]) Blood 09/10/2024 8:47 AM FORMING MILL OPERATOR 09/10/2024 8:50 AM FORMING MILL OPERATOR us Vignesh Hawkins MD LAB BLOOD ORDERA BLES Final Result [facility] ([place]) [address] [facility] Department [place] [address] * ABO/Rh (09/10/2024 8:47 AM FORMING MILL OPERATOR) Pathologist [facility] ABO/Rh B Positive Blood 09/10/2024 8:47 AM FORMING MILL OPERATOR 09/10/2024 8:49 AM FORMING MILL OPERATOR Narrative [facility] ([place]) - 09/10/2024 9:11 AM FORMING MILL OPERATOR Has the patient had Daratumumab or Isatuximab in the past 6 months?->Unknown Vignesh Hawkins MD LAB BLOOD BANK T EST ORDERABLES Final Result [facility] ([place]) [address] [facility] Department [place] [address] * Antibody screen (09/10/2024 8:47 AM FORMING MILL OPERATOR) [facility] Lonnie, indirect, Gel Interpretation Negative ABSC Blood 09/10/2024 8:47 AM FORMING MILL OPERATOR 09/10/2024 8:49 AM FORMING MILL OPERATOR Narrative [facility] ([place]) - 09/10/2024 9:25 AM FORMING MILL OPERATOR Has the patient had Daratumumab or Isatuximab in the past 6 months?->Unknown Vignesh Hawkins MD LAB BLOOD BANK T EST ORDERABLES Final Result Performing Organization Address City/[facility] Co de Phone Number [facility] ([place]) 1 [facility] [place] [address] * (ABNORMAL) Comprehensive metabolic panel (09/10/2024 8:47 AM FORMING MILL OPERATOR) [facility] Sodium 133(L) 135 - 145 mmol/L Comment:sandra moreno(AMB SUrg) Potassium, pl 2.9(C) 3.3 - 4.9 mmol/L [facility] ([place]) Comment:Critical Result call ed by [email or web address] at 2024-09-10 09:18:13. Result Read Back by [...] Comment:sandra moreno(AMB SUrg) Blood 09/10/2024 8:47 AM FORMING MILL OPERATOR 09/10/2024 8:50 AM FORMING MILL OPERATOR us Vignesh Hawkins MD LAB BLOOD ORDERA BLES Final Result [facility] ([place]) [address] [facility] Department [place] [address] * ABO / Rh Confirmation Testing (09/10/2024 8:45 AM FORMING MILL OPERATOR) ABO/Rh Confirmation B Positive [facility] Blood 09/10/2024 8:45 AM FORMING MILL OPERATOR 09/10/2024 9:13 AM FORMING MILL OPERATOR us Vignesh Hawkins MD LAB BLOOD ORDERA BLES Final Result [facility] ([place]) [address] [facility] Department [place] [address] [facility] * US Abdomen Complete (07/24/2024 9:00 AM FORMING MILL OPERATOR) Anatomical Region Laterality Modality Abdomen N/A Ultrasound 07/27/2024 3:45 PM FORMING MILL OPERATOR Narrative 07/27/2024 3:47 PM FORMING MILL OPERATOR EXAM DESCRIPTION: US ABDOMEN COMPLETE REASON [...] liver size could not be provided. The automobile radiator mechanic indicated that real-time the liver appears enlarged. Liver is increased in echogenicity. There is no focal hepatic lesion. LIVER VASCULATURE: Normal directional flow of the main portal and hepatic veins. GALLBLADDER: Echogenic shadowing gallstone. Mild gallbladder wall thickening 0.3 cm. No pericholecystic fluid. Medical Scientific Liaison reports a negative sonographic Tom's sign. BILIARY: [...] Kenny Zacarias M.D. CH: BHARTI Report ID: [id number] Reading Location: [place] [address] Procedure Note Kenny Zacarias Jr., MD - [...] the liver size could not be provided.The automobile radiator mechanic indicated that real-time the liver appears enlarged. Liver is increased in echogenicity. There is no focal hepatic lesion. LIVER VASCULATURE: Normal directional flow of the main portal and hepatic veins. GALLBLADDER: Echogenic shadowing gallstone. Mild gallbladder wallthickening 0.3 cm. No pericholecystic fluid. Medical Scientific Liaison reports a negativesonographic Tom's sign. BILIARY: No [...] Kenny Zacarias M.D. CH: BHARTI Report ID: [id number] Reading Location: [id number] Mariah Adams MD [facility] US PROCEDURES Final Result * XR Chest 1 View (07/22/2024 9:06 AM FORMING MILL OPERATOR) Anatomical Region Laterality Modality Body, Chest N/A Computed Radiogr aphy 07/22/2024 9:09 AM FORMING MILL OPERATOR Narrative 07/22/2024 9:11 AM FORMING MILL OPERATOR EXAM DESCRIPTION: XR CHEST 1 VIEW [...] by Morgan Dong M.D. JR: Report ID: [id number] Reading Location: [id number] Procedure Note Morgan Dong MD - 07/22/2024 [...] by Morgan Dong M.D. JR: Report ID: [id number] Reading Location: [place] [address] Mike Suarez MD IMG XR PROCEDURES Final Resu lt * eGFR (07/22/2024 8:48 AM FORMING MILL OPERATOR) eGFR 86 >=60 mL/min/1. 73 m2 [...] last reviewed 2021. Blood 07/22/2024 8:48 AM FORMING MILL OPERATOR 07/22/2024 8:50 AM FORMING MILL OPERATOR Mike Suarez MD LAB BLOOD ORDERABLES Final R esult [facility] ([place]) [address] [facility] Department [place] [address] * (ABNORMAL) Differential, auto (07/22/2024 8:48 AM FORMING MILL OPERATOR) Neutrophil abs 9.0(H) 1.5 - 6.5 [...] revised on 2017. Blood 07/22/2024 8:48 AM FORMING MILL OPERATOR 07/22/2024 8:50 AM FORMING MILL OPERATOR Mike Suarez MD LAB BLOOD ORDERABLES Final R esult [facility] ([place]) [address] [facility] [employer] [place] [address] * (ABNORMAL) CBC with auto differential (07/22/2024 8:48 AM FORMING MILL OPERATOR) WBC 10.3(H) 3.8 - 9.9 K/cumm [...] [facility] ([place]) Blood 07/22/2024 8:48 AM FORMING MILL OPERATOR 07/22/2024 8:50 AM FORMING MILL OPERATOR Mike Suarez MD LAB BLOOD ORDERABLES Final R esult [facility] ([place]) [address] [facility] [place] [address] * Magnesium (07/22/2024 8:48 AM FORMING MILL OPERATOR) Magnesium 1.6 1.4 - 2.5 mg/dL Comment:Anai Truong (ER) Blood 07/22/2024 8:48 AM FORMING MILL OPERATOR 07/22/2024 8:50 AM FORMING MILL OPERATOR us Mike Suarez MD LAB BLOOD ORDERABLES Final R esult [facility] ([place]) [address] [facility] Department [place] [address] * (ABNORMAL) Comprehensive metabolic panel (07/22/2024 8:48 AM FORMING MILL OPERATOR) Sodium 130(L) 135 - 145 mmol/L Comment:Anai Truong (ER) Potassium, pl 3.0(C) 3.3 - 4.9 mmol/L [facility] ([place]) Comment:Critical Result call ed by [id number] at 2024-07-22 09:20:43. Result Read Back by Anai Truong (ER) Chloride 89(L) 97 - 110 mmol/L [facility] ([place]) Comment:Anai Truong (ER) CO2 28 22 [...] Bilirubin, total 0.6 0.1 - 1.2 mg/dL [facility] ([place]) Comment:Anai Truong (ER) Protein, pl 8.2 6.5 - 8.5 g/dL [facility] ([place]) Comment:Anai Truong (ER) Albumin 4.1 3.5 - 5.0 g/dL [facility] Comment:Anai Truong (ER) Alk phos 162(H) 40 - 130 Units/L [facility] ([place]) Comment:Anai Truong (ER) ALT 18 7 - 45 Units/L [facility] ([place]) Comment:Anai Truong (ER) AST 29 10 - 45 Units/L [facility] ([place]) Comment:Anai Truong (ER) Blood 07/22/2024 8:48 AM FORMING MILL OPERATOR 07/22/2024 8:50 AM FORMING MILL OPERATOR Mike Suarez MD LAB BLOOD ORDERABLES Final R esult [facility] ([place]) [address] [facility] Department [place] [address] * Influenza A/B, RSV, and COVID-19 PCR Nasopharyngeal (07/22/2024 8:41 AM FORMING MILL OPERATOR) COVID-19 RNA Negative Negative Influenza A RNA Negative Negative [facility] ([place]) Influenza B RNA Negative Negative [facility] ([place]) RSV RNA Negative Negative [facility] ([place]) Comment: Interpretive data: Testing performed by [facility]. This test is performed using the Sensing Electromagnetic Plus Xpert Xpress CoV-2/Flu/RSV plus assay. This is a multiplex, real- time reverse transcriptase PCR assay intended for the qualitative detection of nucleic acid from SARS-CoV-2, influenza A, influenza B, and respiratory syncytial virus. This assay has been cleared by the [place] Food and Drug administration. The performance characteristics have been verified by the [facility]. Results must be considered in the clinical context, and a negative result does not rule out infection. Interpretive Data last revised 2023 Nasopharyngeal 07/22/2024 8: 41 AM FORMING MILL OPERATOR 07/22/2024 8:43 AM FORMING MILL OPERATOR Narrative [facility] ([place]) - 07/22/2024 9:24 AM FORMING MILL OPERATOR Is the Patient experiencing symptoms consistent with COVID?->Yes us Mike Suarez MD LAB MICROBIOLOGY - GENERAL O RDERABLES Final Result [facility] ([place]) [address] [facility] [place] [address] * Serum Hepatitis C ab (11/01/2014 8:32 AM FORMING MILL OPERATOR) HCV ab Negative NEG HISTORICAL RESULTS Serum 11/01/2014 8:32 AM FORMING MILL OPERATOR Narrative HISTORICAL RESULTS - 11/02/2014 3:46 AM FORMING MILL OPERATOR Interpretive Data If confirmation is required, call Laboratory Customer Service to request sample to be sent to [facility] for Hepatitis C Virus (HCV) RNA Detection and Quantitation by Real-Time Reverse Laborer Shipyard-PCR (RT-PCR). Current interpretive data was last revised on 2011 us Fariha Whitley MD LAB BLOOD ORDERABLES Final R esult HISTORICAL RESULTS * DIGITAL MAMMOGRAPHY (12/11/2013 11:01 AM CDT) Anatomical Region Laterality Modality Breast Mammography 12/11/2013 11:0 1 AM CDT Narrative 12/12/2013 12:15 AM CDT Vm Mammogram Performed by: LT Screening Mamm Bi Acc#: [id number] DATE OF EXAM: Dec 11 2013 CLINICAL [...] Mammogram Performed by: Screening Mamm Bi Acc#: [id number] DATE OF EXAM: Dec 11 2013 CLINICAL [...] Advance Directives For more information, please contact: [phone] * Full Code (Latest Code Status on File) Date Activated Date Inactivated Comments 11/22/2023 6:25 PM 11/25/2023 11:09 PM * Full Code Date Activated Date Inactivated Comments 12/21/2022 5:34 PM 12/24/2022 8:16 PM * Full Code Date Activated Date Inactivated Comments 11/10/2022 4:25 PM 11/11/2022 3:51 PM * Full Code Date Activated Date Inactivated Comments 05/04/2022 1:38 PM 05/05/2022 6:47 PM Care Teams Clinical Allergist Relationship Specialty Start Date End Date Mariah Adams MD [address] [place] [id number] PCP - General Internal Medicine 08/19/20 Mitchell Zamarripa MD [address] [place] [address] Referring Physician Rheumatology 03/11/22 Brit More NP [address] [place] [address] Nurse Practitioner Cardiovascular Disease 03/11/22 Cliff Ronquillo NP [address] [place] [address] DR [facility]O [facility] [place] [address] Nurse Practitioner Nurse Practitioner 05/05/22 Dick Aguilar PA [address] [place] [address] DR QUINTERO [facility] [place] [address] Physician Medical Terminologist Orthopedic Surgery 11/11/22 Gavin Sewell MD [address] [place] [address] DR CARLOS QUINTERO [address] [place] [id number] Surgeon Orthopedic Surgery 12/24/22
--- OUTSIDE RECORDS SUMMARY | 2024-10-11 00:25 | XMS_ITS | Clinical Summary ---
Author Organization [facility] Address [address] [place] [address] Care Team Providers Care Retail Coordinator Name Role Phone Yg Lee MD Primary Care Provider [phone] Allergies Active Allergy Reactions Criticality Noted Date [...] (Dexilant) 60 mg Delayed Release capsule Lot: [id number] Ex: 10/21 Qty: 8 5 Capsule Active [...] on 04/05/2024 fluticasone propionate (FLONASE) 50 mcg/spray Dickens, Suspension nasal inhaler USE 1 OR 2 [...] Active apixaban (ELIQUIS) 5 mg tablet Lot: [id number] ex: 05/2025 qty: 8 14 Tablet Active [...] t be different from the original. [facility] [id number] 09/01/22 Problem Noted Date Diagnosed Date Pulmonary [...] Type Department Care Team Description 10/05/[address] [place] [address] [place] [address] Yg Lee MD Needs Appointment 09/20/2024 External Device Data [facility] ABSTRACTION Provider, Abstract 09/19/[address] [place] [address] Yg Lee MD Essential hypertension, benign 09/11/2024 External Device Data [facility] ABSTRACTION Provider, Abstract 08/21/[address] [place] [address] Provider, Abstract 08/16/[address] [place] [address] Yg Lee MD Other specified anxiety disorders 08/15/2024 Telephone [place] [address] [place] [phone] Yg Lee MD Provider Call 08/01/2024 Telephone [place] [address] [place] [address] Yg Lee MD Referral 07/31/2024 Telephone [place] [address] [place] [address] Yg Lee MD Results 07/31/2024 Orders Only [facility] [address] [place] [address] Gisselle Bell Hepatomegaly 07/24/2024 Telephone [facility] [address] [facility] [address] [place] [address] Yg Lee MD Provider Call 07/19/2024 Telephone [facility] [address] [place] [address] Yg Lee MD Provider Call; Provider Call; Provider Call; Provider Call 07/14/2024 Refill [facility] [address] [place] [address] Yg Lee MD from Last 3 Months Immunizations Immunization Administration Dates Next Due (ADACEL/BOOSTRIX)(10 YR UP) TDAP VACCINE, 0.5ML, IM 06/15/2011 (PFIZER)(12 YR UP) COVID-19 VACCINE - EMERGENCY USE AUTHORIZATION, MRNA, [id number]) 30 MCG/0.3 ML IM SUSP 04/22/2021,04/01/2021 (PNEUMOVAX 23)(50 YRS UP) PN EUMOCOCCAL POLYSACCHARIDE (PPV23) 0.5 ML, IM 07/18/2017,06/15/2011 (PREVNAR 13)(6 WKS UP) PNEUM OCOCCAL CONJUGATE (PCV13) 0.5 ML, IM 10/20/2020 (PREVNAR 20)(6 WKS UP) PNEUM OCOCCAL CONJUGATE VACCINE 20-VALENT (PCV20), POLYSACCHARIDE [id number] CONJUGATE, ADJUVANT 0.5 ML (PF) IM 02/23/2023 [...] on file 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 Stent N/A: Pancreas [employer] [id number] 09/29/2022 [id number] / / [id number] Procedures Procedure Name Priority Date/Time Associated [...] A1C 5.2 <5.7 % of total Hgb real5D sheyla Santana Comment: For the purpose of screening for the presence of diabetes: <5.7% Consistent with the absence of diabetes 5.7-6.4% Consistent with increased risk for diabetes (prediabetes) > or =6.5% Consistent with diabetes This assay result is consistent with a decreased risk of diabetes. Currently, no consensus exists regarding use of hemoglobin A1c for diagnosis of diabetes in children. According to [place] Diabetes Association (ADA) guidelines, hemoglobin A1c <7.0% represents optimal control in non- diabetic patients. Different metrics may apply to specific patient populations. Standards of Medical Care in Diabetes(ADA). ESTIMATED AVERAGE GLUCOSE (MG/DL) 103 mg/dL real5DRenee Santana ESTIMATED AVERAGE GLUCOSE (MMOL/L) 5.7 mmol/L real5DRenee Santana Comment: FASTING:YES FASTING: YES [facility] [address] [place] [address] [facility] Blood 06/15/2024 9:16 AM CDT 06/15/2024 9:17 AM CDT us Yg Lee MD CHEMISTRY ORDERABLES Final Re sult [facility] [phone] [place] [address] [place] [address] * MAMMO 3D KIRILL SCREEN BILAT W [...] BI-RADS CATEGORY 1 - Negative. 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
--- OUTSIDE RECORDS SUMMARY | 2024-10-11 00:25 | XMS_ITS | Clinical Summary ---
Author Organization [facility] Address [address] [place] [address] Phone Care Team Providers Care Armature Winder Helper Repair Name Role Phone JAM MCDONNELL PA-C Primary Care Provider [phone] Reason for Visit and Chief Complaint HOSPITAL [...] (adult) (pediatric), Essential (primary) hypertension TIFFANY Chaudhari [facility] 12/13/2023 Last Documented On 4 2:24PM ; [facility] Medical History Includes: Medical History addressed [...] Dates 1 - [employer] MEDICARE ADVANTAGE [id number] NIGHAT DELANEY Self Clinical Notes Includes: Clinical Notes from this encounter No Clinical Notes Recorded
--- OUTSIDE RECORDS SUMMARY | 2024-10-11 00:25 | XMS_ITS ---
Author Organization [facility] Address [address] [place] [address] Phone Care Team Providers Care Die Cast Operator Name Role Phone JAM MCDONNELL PA-C Primary Care Provider [phone] Plan of Treatment No Plan of Treatment [...] On 07/08/2010 5:57PM By ALVIN BASS ; [facility] Premarin 1.25 MG OR TABS 09/02/2009 - 08/28/2010 Provi anastasia: Diagnosis: Last Documented On 11/11/2009 9:36AM By BONNIE MORALES ; [facility] Premarin 1.25 MG OR TABS 07/23/2008 - 07/18/2009 Provi anastasia: Diagnosis: Last Documented On 11/11/2009 9:37AM By BONNIE MORALES ; [facility] Amoxicillin 500 MG OR TABS 07/03/2007 - 07/13/2007 Pro vider: Diagnosis: Last Documented On 11/11/2009 9:38AM By BONNIE MORALES ; [facility] Premarin 1.25 MG OR TABS 07/05/2006 - 06/30/2007 Provi anastasia: Diagnosis: Last Documented On 11/11/2009 9:39AM By BONNIE MORALES ; [facility] Premarin 1.25 MG OR TABS 08/27/2005 - 07/23/2006 Provi anastasia: Diagnosis: Last Documented On 11/11/2009 9:40AM By BONNIE MORALES ; [facility] Medications Administered Includes: Administered Medications in patient's chart No Administered Medications Recorded Results Includes: Results from 10/11/2023 through 10/11/2024 No Results Recorded For Specified Dates History of Present Illness History of Present Illness not supported for this document type No History of Present Illness Recorded Social History Description Last Updated 11/11/2009 Last Documented On 0 9:43AM ; [facility] Exercise frequency was three times/week 11/11/2009 Last Documented On 0 9:43AM ; [facility] Exercising regularly 11/11/2009 Last Documented On 0 9:43AM ; [facility] Sexually active 11/11/2009 Last Documented On 0 9:43AM ; [facility] Sexually active with 1 partners in the l ast year 11/11/2009 Last Documented On 0 9:43AM ; [facility] Smoking Status Unknown Procedures and Surgical History Includes: Procedures from 10/11/2023 through 10/11/2024 Procedures Code Diagnosis Performing Provider Service Location Service Date CLINIC FACILITY FEE (Signi/Sep Eval & Man) G0463 Nonrheumatic mitral (valve) insufficiency, Paroxysmal atrial fibrillation, Obstructive sleep apnea (adult) (pediatric), Essential (primary) hypertension [facility] 12/13/2023 Last Documented On 4 2:24PM ; [facility] CLINIC FACILITY FEE (Signi/Sep Eval & Man) 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, Sleep apnea, unspecified, Supraventricular tachycardia, unspecified [facility] 11/14/2023 Last Documented On 4 12:05PM ; [facility] Medical History Includes: Medical History in patient's chart Description Last Updated HYSTERECTOMY ~BTL 11/11/2009 Last Documented On 0 9:43AM ; [facility] 2 living children 11/11/2009 Last Documented On 0 9:43AM ; [facility] A mammogram was performed 11/11/2009 Last Documented On 0 9:43AM ; [facility] A Pap smear was performed 11/11/2009 Last Documented On 0 9:43AM ; [facility] weight: was 7.4 lbs 11/11/2009 Last Documented On 0 9:43AM ; [facility] Breast problems 11/11/2009 Last Documented On 0 9:43AM ; [facility] Delivery date 1983 11/11/2009 Last Documented On 0 9:43AM ; [facility] Duration of labor: was six hr 11/11/2009 Last Documented On 0 9:43AM ; [facility] Gestational age: was 40 weeks 11/11/2009 Last Documented On 0 9:43AM ; [facility] 2 11/11/2009 Last Documented On 0 9:43AM ; [facility] History of the 2nd : 11/11/2009 Last Documented On 0 9:43AM ; [facility] Last mammogram date: 07/19/08 11/11/2009 Last Documented On 0 9:43AM ; [facility] Last pap smear date 200711/11/2009 Last Documented On 0 9:43AM ; [facility] Oral contraceptives 11/11/2009 Last Documented On 0 9:43AM ; [facility] Status post tubal ligation 11/11/2009 Last Documented On 0 9:43AM ; [facility] Family History Includes: Family History in patient's chart Description Last Updated Family history of Cancer 11/11/2009 Last Documented On 0 9:43AM ; [facility] Family history of thyroid disease 2009 Last Documented On 0 9:43AM ; [facility] Family medical history of high blood pre ssure 11/11/2009 Last Documented On 0 9:43AM ; [facility] Review of Systems Review of Systems not supported for this document type No Review of Systems Recorded Mental Status No Mental Status Recorded Functional Status No Functional Status Recorded Physical Exam Physical Exam not supported for this document type No Physical Exam Recorded Allergies Includes: Active, inactive, and resolved Allergies No Known Allergies Encounters Includes: Encounters from 10/11/2023 through 10/11/2024 Encounter Provider Location Date Check-In Time Check- Out Time Diagnosis HOSPITAL FOLLOW UP EXAM TIFFANY SAUCEDO ANP [facility]- 4 12:43PM 1:47PM [facility] CHECK UP TIFFANY HOWARD [facility]- 4 10:58AM 11:28AM Insurance Includes: Active Insurance Policies Plan Name Member ID Group # Subscriber Relationship Effect cyn Dates 1 - [employer] MED[employer] ADVANTAGE [id number] NIGHAT Guevara Clinical Notes Includes: Signed Clinical Notes starting from 09/17/2022 No Clinical Notes Recorded
--- OUTSIDE RECORDS SUMMARY | 2024-10-11 00:25 | XMS_ITS | Referral Summary ---
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 Name Role Phone Mariah Adams MD Primary Care Provider + Mitchell Zamarripa MD Unavailable [phone] Brit More BEHAVIOR SUPPORT SPECIALIST Unavailable [phone] Cliff Ronquillo NP Unavailable [phone] Dick Aguilar Unavailable [phone] Gavin Sewell MD Unavailable [phone] Encounters Date Type Department Care Team Description 09/10/2024 9:15 AM GENERAL OFFICE CLERK - 09/10/2024 10:45 AM GENERAL OFFICE CLERK Surgery [facility] Operating Room [address] [place] [address] Vignesh Hawkins MD LAPAROSCOPIC CHOLECYSTECTOMY 09/10/2024 9:16 AM GENERAL OFFICE CLERK Anesthesia Event [facility] Operating Room [address] [place] [address] Tonia Gutierrez MD Reynolds, Ethan Emerson, MD 09/10/2024 8:13 AM GENERAL OFFICE CLERK - 09/10/2024 2:39 PM GENERAL OFFICE CLERK Hospital Encounter [facility] Room [address] [place] [address] Vignesh Hawkins MD Calculus of gallbladder with cholecystitis without biliary obstruction, unspecified cholecystitis acuity Discharge Disposition: Discharge to home or self care 08/14/2024 9:30 AM GENERAL OFFICE CLERK Office Visit [facility] [address] [facility] [address] [place] [id number] Vignesh Hawkins MD Calculus of gallbladder with cholecystitis without biliary obstruction, unspecified cholecystitis acuity 07/24/2024 7:58 AM GENERAL OFFICE CLERK - 07/24/2024 11:59 PM GENERAL OFFICE CLERK Hospital Encounter [facility] [address] [place] [address] Hepatomegaly, not elsewhere classified; Hepatomegaly Discharge Disposition: Discharge to home or self care 07/22/2024 8:25 AM GENERAL OFFICE CLERK - 07/22/2024 10:10 AM GENERAL OFFICE CLERK Emergency [facility] Emergency Department 1 [place] [address] Mike Suarez MD Bronchitis (Primary Dx) Discharge [...] 1 tablet (100 mcg total) by mouth stone breaker before breakfast 1 Active celecoxib (CeleBREX) 100 [...] 08/14/2024 Assessment & Plan (08/14/2024 9:48 AM GENERAL OFFICE CLERK): The patient likely has chronic cholecystitis given [...] atrial fibrillation 11/25/2023 ACS (acute coronary syndrome) ([facility]/HCC) 11/23/19 24 Persistent atrial fibrillation 11/22/2023 [...] (04/23/2022): Added automatically from request for surgery [id number] Posterior tibial tendon dysfunction 03/02/2022 Flat foot [...] 01/04/2018 Assessment & Plan (09/19/2018 1:30 PM GENERAL OFFICE CLERK): Low disease activity today on exam. Take [...] often do you attend chur ch or jainism services? Never 12/23/2022 Do you belong to any clubs o r organizations such as religion groups, unions, fraternal or athletic groups, or [...] staff should administer the PHQ-9) 0 11/23/2023 [facility] - Occupational [...] place to sleep or slept in a residential (including now)? No 12/23/2022 Personal Safety Answer Date Recorded Have you ever been in or are you currently in a harmful physical or emotional relationship or is someone making you feel afraid or unsafe? Denies 09/10/2024 Comments No Sex and Gender Information Value Date Recorded Sex Assigned at Not on file Legal Sex Female 11:50 PM GENERAL OFFICE CLERK Gender Identity Not on file Sexual Orientation Not on file Last Filed Vital Signs Vital Sign Reading Time Taken Comments Blood Pressure 119/69 09/10/2024 2:00 PM GENERAL OFFICE CLERK Pulse 69 09/10/2024 2:00 PM GENERAL OFFICE CLERK Temperature 36.4 C (97.6 F) 09/10/2024 2:00 PM GENERAL OFFICE CLERK Respiratory Rate 16 09/10/2024 2:00 PM GENERAL OFFICE CLERK Oxygen Saturation 94% 09/10/2024 2:00 PM GENERAL OFFICE CLERK Inhaled Oxygen Concentration - - Weight 67.6 kg (149 lb 0.5 oz) 09/10/2024 8:15 A M GENERAL OFFICE CLERK Height 154.9 cm (5' 1 ) 09/10/2024 8:15 AM GENERAL OFFICE CLERK Body Mass Index 28.16 09/10/2024 8:15 AM GENERAL OFFICE CLERK Plan of Treatment Not on file Medical Devices Implanted Type Area Instructional Designer Device Identifier Shelf Expiration Date Model / Serial / Lot Exactech Restrictor Cement Cemex Small Od13mm Tpa-13 - [id number] Implanted:Qty: 1 on 05/04/2022 by Gavin Sewell MD at [facility] Left: Shoulder Exactech 08/28/2023 TPA-13 / / [id number] Exactech Equinoxe Reverse Shoulder +0mm Tray Humeral Adapter 32010-00 - [id number] - [id number] Implanted:Qty: 1 on 05/04/2022 by Gavin Sewell MD at [facility] Ex[employer]ech [id number] 04/07/2032 320-1000 / [id number] / Exactech Equinoxe 40mm Small Reverse Constrain Shoulder +2.5mm Liner 320-40-13 - [id number] - [id number] Implanted:Qty: 1 on 05/04/2022 by Gavin Sewell MD at [facility] 01/31/2024 320-40-13 / [id number] / Ex[employer]ech Equinoxe Lock Reverse Shoulder Glenosphere Screw Bone 320-15-05 - [id number] - [id number] Implanted:Qty: 1 on 05/04/2022 by Gavin Sewell MD at [facility] Left: Shoulder Ex[employer]ech 03/09/2027 320-15- / [id number] / Exactech Reverse Torque Define Shoulder Kit Screw 320-20-00 - [id number] - [id number] Implanted:Qty: 1 on 05/04/2022 by Gavin Sewell MD at [facility] Left: Shoulder [employer]ech 02/03/2027 320-20-00 / [id number] / Exactech Equinoxe Small Reverse Superior Posterior Augment Shoulder Left 320-35-07 - [id number] - [id number] Implanted:Qty: 1 on 05/04/2022 by Gavin Sewell MD at [facility] Left: Shoulder [employer] [id number] 04/08/2031 320-35-07 / [id number] / Exactech Equinoxe 10mm Stem Humeral Sterile 300-09-07 - [id number] - [id number] Implanted:Qty: 1 on 05/04/2022 by Gavin Sewell MD at [facility] Left: Shoulder Ex[employer]ech [id number] 09/07/2031 300-09-07 / [id number] / [employer] Cement Bone Simplex Gentamicin High Viscosity 40gm 6195-1-001 - [id number] Implanted:Qty: 1 on 05/04/2022 by Gavin Sewell MD at [facility] Left: Shoulder [employer] 09/28/2023 6195-1-001 / / [id number] Exactech Equinoxe 40mm 24.3mm Small Reverse Shoulder Sphere Glenoid 320-31-40 - [id number] - [id number] Implanted:Qty: 1 on 05/04/2022 by Gavin Sewell MD at [facility] Left: Shoulder [employer]ech [id number] 12/11/2030 320-31-40 / [id number] / Ex[employer]ech Equinoxe 4.5mm 38mm Kit Compression Lock Cap Reverse Shoulder 320-20-38 - [id number] - [id number] Implanted:Qty: 1 on 05/04/2022 by Gavin Sewell MD at [facility] Left: Shoulder [employer]ech [id number] 01/12/2027 320-20-38 / [id number] / Exactech Equinoxe 4.5mm 34mm Kit Compression Lock Cap Reverse Shoulder 320-20-34 - [id number] - [id number] Implanted:Qty: 1 on 05/04/2022 by Gavin Sewell MD at [facility] Left: Shoulder [employer]ech [id number] 07/14/2026 320-20-34 / [id number] / [employer] Insert Tibial Knee Fixed Lm Posterior Stabilized Attune 7mm Size 5 Polyethylene [id number] - [id number] Implanted:Qty: 1 on 11/10/2022 by Gavin Sewell MD at [facility] Left: Knee [employer] 07/28/2030 [id number] / / [id number] [employer] Attune Cruciate Retain Cementless Knee Left 5 Component Femoral [id number] - [id number] Implanted:Qty: 1 on 11/10/2022 by Gavin Sewell MD at [facility] Left: Knee [employer] 04/28/2032 [id number] / / [id number] [employer] Attune Fb Tib Base Sz 5 Por [id number] - [id number] Implanted:Qty: 1 on 11/10/2022 by Gavin Sewell MD at [facility] Left: Knee [employer] 03/28/2032 [id number] / / [id number] Procedures Procedure Name Priority Date/Time Associated Diagnosis Comments SURGICAL PATHOLOGY Routine 09/10/2024 10:29 AM GENERAL OFFICE CLERK Calculus of gallbladder with cholecystitis without biliary obstruction, unspecified cholecystitis acuity OH AN ELECTIVE ENDOTRACHEAL AIRWAY Routine 09/10/2024 9:36 AM GENERAL OFFICE CLERK LAPAROSCOPIC CHOLECYSTECTOMY 09/10/2024 9:02 AM GENERAL OFFICE CLERK Calculus of gallbladder with cholecystitis without biliary obstruction, unspecified cholecystitis acuity EGFR STAT 09/10/2024 8:47 AM GENERAL OFFICE CLERK DIFFERENTIAL AUTO STAT 09/10/2024 8:4 7 AM GENERAL OFFICE CLERK ANTIBODY SCREEN STAT 09/10/2024 8:47 AM GENERAL OFFICE CLERK ABO/RH STAT 09/10/2024 8:47 AM GENERAL OFFICE CLERK TYPE AND SCREEN STAT 09/10/2024 8:47 AM GENERAL OFFICE CLERK CBC WITH AUTO DIFFERENTIAL STAT 09/10/2024 8:47 AM GENERAL OFFICE CLERK COMPREHENSIVE METABOLIC PANEL STAT 09/10/2024 8:47 AM GENERAL OFFICE CLERK B ABO / RH CONFIRMATION TESTING STAT 09/10/2024 8:45 AM GENERAL OFFICE CLERK US ABDOMEN COMPLETE Schedule Routine, Read Routine (OP Routine) 07/24/2024 9:00 AM GENERAL OFFICE CLERK Hepatomegaly XR CHEST 1 VIEW ED 07/22/2024 9:06 AM GENERAL OFFICE CLERK EGFR STAT 07/22/2024 8:48 AM GENERAL OFFICE CLERK DIFFERENTIAL AUTO STAT 07/22/2024 8:4 8 AM GENERAL OFFICE CLERK MAGNESIUM Routine 07/22/2024 8:48 AM GENERAL OFFICE CLERK COMPREHENSIVE METABOLIC PANEL STAT 07/22/2024 8:48 AM GENERAL OFFICE CLERK CBC WITH AUTO DIFFERENTIAL STAT 07/22/2024 8:48 AM GENERAL OFFICE CLERK INFLUENZA A/B, RSV, AND COVID-19 PCR Routine 07/22/2024 8:41 AM GENERAL OFFICE CLERK SERUM HEPATITIS C AB Routine 11/01/2014 8:32 AM GENERAL OFFICE CLERK DIGITAL MAMMOGRAPHY Routine 12/11/2013 11:01 AM CDT from Last 3 Months or Most Recently Relevant to Health Maintenance Results * Surgical pathology (09/10/2024 10:29 AM GENERAL OFFICE CLERK) Tissue (Gallbladder) 09/10/2024 9:51 AM GENERAL OFFICE CLERK Narrative PATHOLOGY [facility] ([place]) - 09/11/2024 3:50 PM GENERAL OFFICE CLERK EPIC results best viewed via link to PDF [facility] Department of Pathology [address] [place] [address] Note to Patients: This report may [...] Final Report Patient Name: ANTOINETTE DELANEY Address: [address] [place] [address] Gender: F : 1960 (Age: 64) Service: Surgery Location: [facility] Hospital #: [id number] Patient Type: [facility] Taken: 09/10/2024 Received: 09/10/2024 Accessioned: [...] determined by the Surgical Pathology Department at [facility] as part of an ongoing supervisor vendor quality program and in compliance with federally mandated [...] characteristics determined by the Surgical Pathology Department [facility]. It has not been cleared or approved by the U. S. Food and Drug Administration. Note for decalcified specimens: This assay has not been validated on decalcified tissues. Results should be interpreted with caution given the possibility of false negativity on decalcified specimens us Vignesh Hawkins MD LAB PATHOLOGY OR DERABLES Final Result Performing Organization Address City/State/[facility] Co de Phone Number PATHOLOGY [facility] [address] [place] [address] * OH AN ELECTIVE ENDOTRACHEAL AIRWAY (09/10/2024 9:36 AM GENERAL OFFICE CLERK) Narrative Cliff Davis CRNA - 09/10/2024 9:36 AM GENERAL OFFICE CLERK Cliff Davis CRNA 09/10/2024 9:37 AM Airway [...] nal Result * eGFR (09/10/2024 8:47 AM GENERAL OFFICE CLERK) eGFR >90 >=60 mL/min/1. 73 m2 Comment: [...] last reviewed 2021. Blood 09/10/2024 8:47 AM GENERAL OFFICE CLERK 09/10/2024 8:50 AM GENERAL OFFICE CLERK Vignesh Hawkins MD LAB BLOOD ORDERA BLES Final Result [facility] [address] [facility] [place] [address] * Differential, auto (09/10/2024 8:47 AM GENERAL OFFICE CLERK) Neutrophil abs 5.3 1.5 - 6.5 K/cumm Imm gran abs 0.0 0.0 - 0.1 K/cumm [facility] ([place]) Lymphocyte abs 0.8 0.8 - 3.3 K/cumm [facility] ([place]) Monocyte abs 0.6 0.2 - 0.8 K/cumm [facility] ([place]) Eosinophil abs 0.3 0.0 - 0.5 K/cumm [...] revised on 2017. Blood 09/10/2024 8:47 AM GENERAL OFFICE CLERK 09/10/2024 8:50 AM GENERAL OFFICE CLERK us Vignesh Hawkins MD LAB BLOOD ORDERA BLES Final Result [facility] ([place]) [address] [facility] [place] [address] * (ABNORMAL) CBC with auto differential (09/10/2024 8:47 AM GENERAL OFFICE CLERK) WBC 7.1 3.8 - 9.9 K/cumm Hgb [...] [facility] ([place]) Blood 09/10/2024 8:47 AM GENERAL OFFICE CLERK 09/10/2024 8:50 AM GENERAL OFFICE CLERK Vignesh Hawkins MD LAB BLOOD ORDERA BLES Final Result [facility] ([place]) [address] [facility] Department [place] [address] * ABO/Rh (09/10/2024 8:47 AM GENERAL OFFICE CLERK) ABO/Rh B Positive Blood 09/10/2024 8:47 AM GENERAL OFFICE CLERK 09/10/2024 8:49 AM GENERAL OFFICE CLERK Narrative [facility] ([place]) - 09/10/2024 9:11 AM GENERAL OFFICE CLERK Has the patient had Daratumumab or Isatuximab in the past 6 months?->Unknown Vignesh Hawkins MD LAB BLOOD BANK T EST ORDERABLES Final Result [facility] ([place]) [address] [facility] [place] [address] * Antibody screen (09/10/2024 8:47 AM GENERAL OFFICE CLERK) [facility] Lonnie, indirect, Gel Interpretation Negative ABSC Blood 09/10/2024 8:47 AM GENERAL OFFICE CLERK 09/10/2024 8:49 AM GENERAL OFFICE CLERK N[facility]ative [facility] - 09/10/2024 9:25 AM GENERAL OFFICE CLERK Has the patient had Daratumumab or Isatuximab in the past 6 months?->Unknown us Vignesh Hawkins MD LAB BLOOD BANK T EST ORDERABLES Final Result [facility] ([place]) [address] [facility] [place] [address] * (ABNORMAL) Comprehensive metabolic panel (09/10/2024 8:47 AM GENERAL OFFICE CLERK) [facility] Sodium 133(L) 135 - 145 mmol/L Comment:sandra moreno(AMB SUrg) Potassium, pl 2.9(C) 3.3 - 4.9 mmol/L [facility] Comment:Critical Result call ed by [email or web address] at 2024-09-10 09:18:13. Result Read Back by sandra moreno(AMB SUrg) Chloride 94(L) 97 - 110 mmol/L [facility] ([place] Comment:sandra moreno(AMB SUrg) CO2 25 22 - 32 mmol/L [facility] Comment:sandra moreno(AMB SUrg) Anion gap 14 2 - 15 mmol/L [facility] ([place]) Comment:sandra moreno(AMB SUrg) BUN 12 6 - 25 mg/dL [facility] ([place] Comment:sandra moreno(AMB SUrg) Creatinine 0.68 0.60 - 1.10 mg/dL [facility] ([place] Comment:sandra moreno(AMB SUrg) Glucose 121 70 - 199 mg/dL [facility] ([place] Comment: sandra moreno(AMB SUrg) Interpretive [...] Comment:sandra cisnerosr(AMB SUrg) Blood 09/10/2024 8:47 AM GENERAL OFFICE CLERK 09/10/2024 8:50 AM GENERAL OFFICE CLERK Vignesh Hawkins MD LAB BLOOD ORDERA BLES Final Result [facility] ([place]) [address] [facility] [place] [address] * ABO / Rh Confirmation Testing (09/10/2024 8:45 AM GENERAL OFFICE CLERK) ABO/Rh Confirmation B Positive [facility] Blood 09/10/2024 8:45 AM GENERAL OFFICE CLERK 09/10/2024 9:13 AM GENERAL OFFICE CLERK Vignesh Hawkins MD LAB BLOOD ORDERA BLES Final Result [facility] ([place]) [address] [facility] [place] [address] [facility] * US Abdomen Complete (07/24/2024 9:00 AM GENERAL OFFICE CLERK) Anatomical Region Laterality Modality Abdomen N/A Ultrasound 07/27/2024 3:45 PM GENERAL OFFICE CLERK Narrative 07/27/2024 3:47 PM GENERAL OFFICE CLERK EXAM DESCRIPTION: US ABDOMEN COMPLETE REASON FOR [...] liver size could not be provided. The residential treatment specialist indicated that real-time the liver appears enlarged. Liver is increased in echogenicity. There is no focal hepatic lesion. LIVER VASCULATURE: Normal directional flow of the main portal and hepatic veins. GALLBLADDER: Echogenic shadowing gallstone. Mild gallbladder wall thickening 0.3 cm. No pericholecystic fluid. Pluck Trimmer reports a negative sonographic Tom's sign. BILIARY: [...] Kenny Zacarias M.D. CH: BHARTI Report ID: [id number] Reading Location: [id number] Procedure Note Kenny Zacarias Jr., MD - [...] the liver size could not be provided.The residential treatment specialist indicated that real-time the liver appears enlarged. Liver is increased in echogenicity. There is no focal hepatic lesion. LIVER VASCULATURE: Normal directional flow of the main portal and hepatic veins. GALLBLADDER: Echogenic shadowing gallstone. Mild gallbladder wallthickening 0.3 cm. No pericholecystic fluid. Pluck Trimmer reports a negativesonographic Tom's sign. BILIARY: No [...] Kenny Zacarias M.D. CH: BHARTI Report ID: [id number] Reading Location: [id number] us Mariah Adams MD IMG US PROCEDURES Final Result * XR Chest 1 View (07/22/2024 9:06 AM GENERAL OFFICE CLERK) Anatomical Region Laterality Modality Body, Chest N/A Computed Radiogr aphy 07/22/2024 9:09 AM GENERAL OFFICE CLERK Narrative 07/22/2024 9:11 AM GENERAL OFFICE CLERK EXAM DESCRIPTION: XR CHEST 1 VIEW REASON [...] by Morgan Dong M.D., JR: Report ID: [id number] Reading Location: [id number] Procedure Note Morgan Dong MD - 07/22/2024 [...] by Morgan Dong M.D. JR: Report ID: [id number] Reading Location: [id number] Mike Suarez MD IMG XR PROCEDURES Final Resu lt * eGFR (07/22/2024 8:48 AM GENERAL OFFICE CLERK) eGFR 86 >=60 mL/min/1. 73 m2 Comment: [...] last reviewed 2021. Blood 07/22/2024 8:48 AM GENERAL OFFICE CLERK 07/22/2024 8:50 AM GENERAL OFFICE CLERK Mike Suarez MD LAB BLOOD ORDERABLES Final R esult [facility] [address] [facility] [place] [address] * (ABNORMAL) Differential, auto (07/22/2024 8:48 AM GENERAL OFFICE CLERK) Neutrophil abs 9.0(H) 1.5 - 6.5 K/cumm Imm gran abs 0.0 0.0 - 0.1 K/cumm [facility] ([place]) Lymphocyte abs 0.6(L) 0.8 - 3.3 K/cumm [facility] ([place]) Monocyte abs 0.6 0.2 - 0.8 K/cumm [facility] ([place]) Eosinophil abs 0.0 0.0 - 0.5 K/cumm [...] revised on 2017. Blood 07/22/2024 8:48 AM GENERAL OFFICE CLERK 07/22/2024 8:50 AM GENERAL OFFICE CLERK us Mike Suarez MD LAB BLOOD ORDERABLES Final R esult [facility] ([place]) [address] [facility] [place] [address] * (ABNORMAL) CBC with auto differential (07/22/2024 8:48 AM GENERAL OFFICE CLERK) WBC 10.3(H) 3.8 - 9.9 K/cumm Hgb [...] [facility] ([place]) Blood 07/22/2024 8:48 AM GENERAL OFFICE CLERK 07/22/2024 8:50 AM GENERAL OFFICE CLERK Mike Suarez MD LAB BLOOD ORDERABLES Final R esult [facility] ([place]) [address] [facility] [place] [address] * Magnesium (07/22/2024 8:48 AM GENERAL OFFICE CLERK) Magnesium 1.6 1.4 - 2.5 mg/dL Comment:Anai Truong (ER) Blood 07/22/2024 8:48 AM GENERAL OFFICE CLERK 07/22/2024 8:50 AM GENERAL OFFICE CLERK Mike Suarez MD LAB BLOOD ORDERABLES Final R esult [facility] ([place]) [address] [place] [address] * (ABNORMAL) Comprehensive metabolic panel (07/22/2024 8:48 AM GENERAL OFFICE CLERK) Sodium 130(L) 135 - 145 mmol/L Comment:Anai Truong (ER) Potassium, pl 3.0(C) 3.3 - 4.9 mmol/L [facility] Comment:Critical Result call ed by [id number] at 2024-07-22 09:20:43. Result Read Back by Anai Truong (ER) Chloride 89(L) 97 - 110 mmol/L [facility] ([place]) Comment:Anai Truong (ER) CO2 28 22 - 32 mmol/L [facility] Comment:Anai Truong (ER) Anion gap 13 2 - 15 mmol/L [facility] ([place]) Comment:Anai Truong (ER) BUN 10 6 - 25 mg/dL [facility] ([place]) Comment:Anai Truong (ER) Creatinine 0.78 0.60 - 1.10 mg/dL [facility] ([place]) Comment:Anai Truong (ER) Glucose 139 70 - 199 mg/dL [facility] ([place]) Comment: Anai Troung (ER) Interpretive Data Fasting glucose >/= 126 [...] (ER) Albumin 4.1 3.5 - 5.0 g/dL [facility] ([place]) Comment:Anai Truong (ER) Alk phos 162(H) 40 - 130 Units/L [facility] ([place] Comment:Anai Truong (ER) ALT 18 7 - 45 Units/L [facility] ([place] Comment:Anai Truong (ER) AST 29 10 - 45 Units/L [facility] ([place]) Comment:Anai Truong (ER) Blood 07/22/2024 8:48 AM GENERAL OFFICE CLERK 07/22/2024 8:50 AM GENERAL OFFICE CLERK Mike Suarez MD LAB BLOOD ORDERABLES Final R esult [facility] [address] [facility] [place] [address] * Influenza A/B, RSV, and COVID-19 PCR Nasopharyngeal (07/22/2024 8:41 AM GENERAL OFFICE CLERK) COVID-19 RNA Negative Negative Influenza A RNA Negative Negative [facility] ([place]) Influenza B RNA Negative Negative [facility] ([place]) RSV RNA Negative Negative [facility] ([place]) Comment: Interpretive data: Testing performed by [facility]. This test is performed using the [employer] Xpert Xpress CoV-2/Flu/RSV plus assay. This is a multiplex, real- time reverse transcriptase PCR assay intended for the qualitative detection of nucleic acid from SARS-CoV-2, influenza A, influenza B, and respiratory syncytial virus. This assay has been cleared by the [place] Food and Drug administration. The performance characteristics have been verified by the [facility]. Results must be considered in the clinical context, and a negative result does not rule out infection. Interpretive Data last revised 2023 Nasopharyngeal 07/22/2024 8: 41 AM GENERAL OFFICE CLERK 07/22/2024 8:43 AM GENERAL OFFICE CLERK Narrative [facility] - 07/22/2024 9:24 AM GENERAL OFFICE CLERK Is the Patient experiencing symptoms consistent with COVID?->Yes Mike Suarez MD LAB MICROBIOLOGY - GENERAL O RDERABLES Final Result [facility] ([place]) [address] [facility] [place] [address] * Serum Hepatitis C ab (11/01/2014 8:32 AM GENERAL OFFICE CLERK) HCV ab Negative NEG HISTORICAL RESULTS Serum 11/01/2014 8:32 AM GENERAL OFFICE CLERK Narrative HISTORICAL RESULTS - 11/02/2014 3:46 AM GENERAL OFFICE CLERK Interpretive Data If confirmation is required, call Laboratory Customer Service to request sample to be sent to [facility] for Hepatitis C Virus (HCV) RNA Detection and Quantitation by Real-Time Reverse Mechanical Car Checker-PCR (RT-PCR). Current interpretive data was last revised on 2011 Fariha Whitley MD LAB BLOOD ORDERABLES Final R esult Performing Organization Address City/[facility]/ZIP Co de Phone Number HISTORICAL RESULTS * DIGITAL MAMMOGRAPHY (12/11/2013 11:01 AM CDT) Anatomical Region Laterality Modality Breast Mammography 12/11/2013 11:0 1 AM CDT Narrative 12/12/2013 12:15 AM CDT Vm Mammogram Performed by: Screening Mamm Bi Acc#: [id number] DATE OF EXAM: Dec 11 2013 CLINICAL [...] Performed by: LT Screening Mamm Bi Acc#: [id number] DATE OF EXAM: Dec 11 2013 CLINICAL [...] Maintenance Insurance [place] [id number] [place] [employer] PPO Advance Directives For more information, please contact: [phone] * Full Code (Latest Code Status on File) Date Activated Date Inactivated Comments 11/22/2023 6:25 PM 11/25/2023 11:09 PM * Full Code Date Activated Date Inactivated Comments 12/21/2022 5:34 PM 12/24/2022 8:16 PM * Full Code Date Activated Date Inactivated Comments 11/10/2022 4:25 PM 11/11/2022 3:51 PM * Full Code Date Activated Date Inactivated Comments 05/04/2022 1:38 PM 05/05/2022 6:47 PM Care Teams 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 Relationship Specialty Start Date End Date Mariah Adams MD [address] [place] [address] [place] [address] PCP - General Internal Medicine 08/19/20 Mitchell Zamarripa MD [address] [place] [address] Referring Physician Rheumatology 03/11/22 Brit More NP [address] [place] [address] Nurse Practitioner Cardiovascular Disease 03/11/22 Cliff Ronquillo NP [address] [place] [address] [address] [facility] [address] Nurse Practitioner Nurse Practitioner 05/05/22 Dick Aguilar PA [address] [place] [address] [address] [place] [address] Physician Campus Aide Orthopedic Surgery 11/11/22 Gavin Sewell MD [address] [place] [address] DR CARLOS QUINTERO [address] [place] [address] Surgeon Orthopedic Surgery 12/24/22
--- OUTSIDE RECORDS SUMMARY | 2024-10-11 00:25 | XMS_ITS | Patient Health Summary ---
Author Organization [facility] Address [address] [place] [address] Care Team Providers Care Financial Analysis Consultant Name Role Phone Shandra Ruffin Malcolm WISDOM-TANKAGE SUPERVISOR Primary Care Provider Note from [facility],non-owned Affiliates and Associated Physician Practices is amultiple site organization consisting of ambulatory clinics and hospital sitesin [place], [place], [place] and [place]. This disclosure is being madepursuant to the Care Everywhere program and may not contain all information available regarding this patient. Last updated 18.[facility] Allergies * Ciprofloxacin(Other,Myalgias) -Medium Criticality * Citrullus [...] 06/11/2015, 06/01/2014, 07/28/2013, 06/14/2012, 06/01/2011) * Covid Guía Local primary monovalent 12+ yr 0.3mL Purple cap(Given [...] * CENTROMERE B ANTIBODIES(Performed 03/31/2021) * MONTIEL (SM)+FLOOR WINDER ANTIBODY PANEL(Performed 03/31/2021) * MARTHA-1 ANTIBODY(Performed 03/31/2021) [...] for Arthritis, Myalgia, Hx of psoriasis * FLOOR WINDER ANTIBODY(Performed 05/24/2019) Performed for Arthritis, Myalgia, Hx [...] * (ABNORMAL) C-REACTIVE PROTEIN (08/31/2022 9:26 AM POLYMERIZATION OVEN TENDER) Only the most recent of6 resultswithin the time period is included. Pathologist [facility] C-Reactive Protein 27.6(H) <8.0 mg/L [facility] Comment: REPORT COMMENT: FASTING:YES Test Performed at: [facility], [place] [address] LUISA LAWRENCE DO,MPH 08/31/2022 9:26 AM POLYMERIZATION OVEN TENDER 08/31/2022 9:27 AM POLYMERIZATION OVEN TENDER Mitchell Zamarripa MD LAB - CHEMISTRY INGRID DE GUZMAN [facility] [address] [place] [address] * ERYTHROCYTE SEDIMENTATION RATE (08/31/2022 9:26 AM POLYMERIZATION OVEN TENDER) Only the most recent of6 resultswithin the time period is included. Pathologist [facility] Erythrocyte Sedimentation Rate Westergren 25 < OR = 30 mm/h [facility] Comment: Test Performed at: [facility] [address] [facility], [place] [address] LUISA LAWRENCE DO,MPH 08/31/2022 9:26 AM POLYMERIZATION OVEN TENDER 08/31/2022 9:27 AM POLYMERIZATION OVEN TENDER Mitchell Zamarripa MD LAB - HEMATOLOGY ORD ERABLES [facility] [address] [place] [address] * (ABNORMAL) CBC WITH DIFFERENTIAL (08/31/2022 9:26 AM POLYMERIZATION OVEN TENDER) Only the most recent of6 resultswithin [...] 0.9 % [facility] Comment: Test Performed at: [facility] [address] [employer] [place] [address] LUISA LAWRENCE DO,MPH Blasts [facility] nRBC [facility] Comments [facility] Comment: Test Performed at: [facility] [address] [email or web address] [address] LUISA LAWRENCE DO,MPH 08/31/2022 9:26 AM POLYMERIZATION OVEN TENDER 08/31/2022 9:27 AM POLYMERIZATION OVEN TENDER Mitchell Zamarripa MD LAB - HEMATOLOGY ORD [facility] Organization Address City/State/ZIP Co de Phone Number [facility] [address] [place] [address] * (ABNORMAL) COMPREHENSIVE METABOLIC PANEL (08/31/2022 9:26 AM POLYMERIZATION OVEN TENDER) Only the most recent of6 resultswithin [...] 29 U/L [facility] Comment: Test Performed at: [facility] [address] [place] [address] LUISA LAWRENCE DO,MPH 08/31/2022 9:26 AM POLYMERIZATION OVEN TENDER 08/31/2022 9:27 AM POLYMERIZATION OVEN TENDER Mitchell Zamarripa MD LAB - CHEMISTRY ORDE GAB Performing Organization Address [facility] de Phone Number [facility] [address] [place] [phone] * URINALYSIS W/MICROSCOPIC NO CULTURE (08/11/2021 8:16 AM POLYMERIZATION OVEN TENDER) Only the most recent of3 resultswithin the time period is included. Color UA YELLOW YELLOW [facility] Appearance CLEAR CLEAR [facility] Specific Vallecitos UA 1.010 1.001 - 1.035 [facility] pH [...] SEEN /LPF [facility] Comment: Test Performed at: [facility], [place] [address] LUISA LAWRENCE DO,MPH Granular Casts [facility] Casts UA [facility] Yeast [facility] Comments [facility] Note [facility] Comment: Test Performed at: [facility], [place] [address] LUISA LAWRENCE DO,MPH 08/11/2021 8:16 AM POLYMERIZATION OVEN TENDER 08/11/2021 8:17 AM POLYMERIZATION OVEN TENDER Mitchell Zamarripa MD LAB - URINALYSIS ORD ERABLES Performing Organization Address [facility] Co de Phone Number [facility] [address] [place] [address] * URIC ACID BLOOD (08/11/2021 8:16 AM POLYMERIZATION OVEN TENDER) Only the most recent of4 resultswithin the time period is included. Uric Acid 5.8 2.5 - 7.0 mg/dL [facility] Comment: Therapeutic target for gout patients: <6.0 mg/dL Test Performed at: [facility] [address] LUISA LAWRENCE DO,MPH 08/11/2021 8:16 AM POLYMERIZATION OVEN TENDER 08/11/2021 8:17 AM POLYMERIZATION OVEN TENDER Mitchell Zamarripa MD LAB - CHEMISTRY INGRID Galvez Organization Address City/State/ZIP Co de Phone Number [facility] [address] [place] [address] * XR FOOT RIGHT 3VW OR MORE (08/03/2021 2:52 PM POLYMERIZATION OVEN TENDER) Only the most recent of2 resultswithin the time period is included. Anatomical Region Laterality Modality Ankle / Foot Radiographic Kristyn ging 08/03/2021 2:57 PM POLYMERIZATION OVEN TENDER Impressions 08/03/2021 3:17 PM POLYMERIZATION OVEN TENDER IMPRESSION: 1. Right hand: Mild arthritis [...] 3:17 PM . Narrative 08/03/2021 3:17 PM POLYMERIZATION OVEN TENDER Exam: 1.XR HAND RIGHT 3VW 2.XR [...] osteophytes. There is moderate narrowing of the petlzksk-syrqvnybp-hxyfxaewn joint space. No erosions are seen. The [...] osteophytes. There is moderate narrowing of the iviofxuz-icuehzevj-ockknrbuf joint space. No erosions are seen. Thebones [...] LEFT 3VW OR MORE (08/03/2021 2:52 PM POLYMERIZATION OVEN TENDER) Only the most recent of2 resultswithin the time period is included. Anatomical Region Laterality Modality Ankle / Foot Radiographic Kristyn ging 08/03/2021 2:57 PM POLYMERIZATION OVEN TENDER Impressions 08/03/2021 3:17 PM POLYMERIZATION OVEN TENDER IMPRESSION: 1. Right hand: Mild arthritis [...] 3:17 PM . Narrative 08/03/2021 3:17 PM POLYMERIZATION OVEN TENDER Exam: 1.XR HAND RIGHT 3VW 2.XR [...] osteophytes. There is moderate narrowing of the taoexwoj-ghqimchph-xdoxprrap joint space. No erosions are seen. The [...] osteophytes. There is moderate narrowing of the uqbwnwco-iactrqrxr-ojgxmekeg joint space. No erosions are seen. Thebones [...] RIGHT 3VW OR MORE (08/03/2021 2:52 PM POLYMERIZATION OVEN TENDER) Only the most recent of2 resultswithin the time period is included. Anatomical Region Laterality Modality Wrist / Hand Radiographic Kristyn ging 08/03/2021 2:57 PM POLYMERIZATION OVEN TENDER Impressions 08/03/2021 3:17 PM POLYMERIZATION OVEN TENDER IMPRESSION: 1. Right hand: Mild arthritis [...] 3:17 PM . Narrative 08/03/2021 3:17 PM POLYMERIZATION OVEN TENDER Exam: 1.XR HAND RIGHT 3VW 2.XR [...] osteophytes. There is moderate narrowing of the dwixvpqn-psbwpzfhi-nkfkpmufn joint space. No erosions are seen. The [...] osteophytes. There is moderate narrowing of the gdnswnvt-chydewvaf-vcnkrqlaj joint space. No erosions are seen. Thebones [...] LEFT 3VW OR MORE (08/03/2021 2:52 PM POLYMERIZATION OVEN TENDER) Only the most recent of2 resultswithin the time period is included. Anatomical Region Laterality Modality Wrist / Hand Radiographic Kristyn ging 08/03/2021 2:57 PM POLYMERIZATION OVEN TENDER Impressions 08/03/2021 3:17 PM POLYMERIZATION OVEN TENDER IMPRESSION: 1. Right hand: Mild arthritis [...] 3:17 PM . Narrative 08/03/2021 3:17 PM POLYMERIZATION OVEN TENDER Exam: 1.XR HAND RIGHT 3VW 2.XR [...] osteophytes. There is moderate narrowing of the jjbwzxpo-doemrekpy-rocbhoavz joint space. No erosions are seen. The [...] osteophytes. There is moderate narrowing of the osopbvve-haskzoxha-ahdxpstnd joint space. No erosions are seen. Thebones [...] RIGHT 3VW OR MORE (08/03/2021 2:52 PM POLYMERIZATION OVEN TENDER) Anatomical Region Laterality Modality Wrist / Hand Radiographic Kristyn ging 08/03/2021 2:57 PM POLYMERIZATION OVEN TENDER Impressions 08/03/2021 3:17 PM POLYMERIZATION OVEN TENDER IMPRESSION: 1. Right hand: Mild arthritis [...] 3:17 PM . Narrative 08/03/2021 3:17 PM POLYMERIZATION OVEN TENDER Exam: 1.XR HAND RIGHT 3VW 2.XR [...] osteophytes. There is moderate narrowing of the sjmsxaxv-obpljpdgt-libgmxgzr joint space. No erosions are seen. The [...] osteophytes. There is moderate narrowing of the csfwcrua-qzzsvygjr-cmunerywd joint space. No erosions are seen. Thebones [...] LEFT 3VW OR MORE (08/03/2021 2:52 PM POLYMERIZATION OVEN TENDER) Anatomical Region Laterality Modality Wrist / Hand Radiographic Kristyn ging 08/03/2021 2:57 PM POLYMERIZATION OVEN TENDER Impressions 08/03/2021 3:17 PM POLYMERIZATION OVEN TENDER IMPRESSION: 1. Right hand: Mild arthritis [...] 3:17 PM . Narrative 08/03/2021 3:17 PM POLYMERIZATION OVEN TENDER Exam: 1.XR HAND RIGHT 3VW 2.XR [...] osteophytes. There is moderate narrowing of the htkwdghd-iovwccqaj-bnhnyphsx joint space. No erosions are seen. The [...] osteophytes. There is moderate narrowing of the lkqnnkvj-vwvdzrwbn-oyqfwoqgi joint space. No erosions are seen. Thebones [...] MD DIAGNOSTIC IMAGING O RDERABLES * MONTIEL (SM)+FLOOR WINDER ANTIBODY PANEL (03/31/2021 9:59 AM CDT) SM Antibody <1.0 NEG <1.0 NEG AI [facility] SM/FLOOR WINDER Antibody <1.0 NEG <1.0 NEG AI [facility] Comment: Test Performed at: [facility] [address] [place] [address] LUISA LAWRENCE DO,MPH 03/31/2021 9:59 AM CDT 03/31/2021 9:59 AM CDT Mitchell Zamarripa MD LAB - SEROLOGY ORDER XOCHITL Performing Organization Address [facility] Co de Phone Number [facility] [address] [place] [address] * CENTROMERE B ANTIBODIES (03/31/2021 9:59 AM CDT) Centromere B Antibody <1.0 NEG <1.0 NEG AI [facility] Comment: Test Performed at: [facility] [address] [place] [address] LUISA LAWRENCE DO,MPH 03/31/2021 9:59 AM CDT 03/31/2021 9:59 AM CDT Mitchell Zamarripa MD LAB - SEROLOGY ORDER XOCHITL Performing Organization Address [facility] Co de Phone Number [facility] [address] [place] [address] * CHROMATIN ANTIBODY (03/31/2021 9:59 AM CDT) Chromatin Nucleosomal Antibody <1.0 NEG <1.0 NEG AI [facility] Comment: Test Performed at: [facility] [place] [address] [facility] [place] [address] LUISA LAWRENCE DO,MPH 03/31/2021 9:59 AM CDT 03/31/2021 9:59 AM CDT Mitchell Zamarripa MD LAB - SEROLOGY ORDER XOCHITL Performing Organization Address [facility] Co de Phone Number [facility] [address] [place] [address] * RNA POLYMERASE III ANTIBODY IGG (03/31/2021 9:59 AM CDT) RNA Polymerase 3 Antibody <20 <20 Units [facility] Comment: Test Performed at: [facility] [address] [place] [address] JONATHAN LUQUE MD,PHD,JAQUELINE 03/31/2021 9:59 AM CDT 03/31/2021 9:59 AM CDT Mitchell Zamarripa MD LAB - SEROLOGY ORDER XOCHITL Performing Organization Address City/[facility] Co de Phone Number [facility] [address] [place] [address] * PM/SCL-100 ANTIBODY IGG (03/31/2021 9:59 AM CDT) PM Scl 100 AB <20 <20 Units [facility] Comment: Negative: <20 Weak Positive: 20 - 39 Moderate Positive: 40 - 80 Strong Positive: >80 Comments: This test was developed and its performance characteristics determined by [facility]. It has not been cleared or approved by the Food and Drug Administration. Test Performed at: [facility] [address] [place] [id number] NATALYA PEREZ MD 03/31/2021 9:59 AM CDT 03/31/2021 9:59 AM CDT Mitchell Zamarripa MD LAB - SEROLOGY ORDER XOCHITL Performing Organization Address [facility] Co de Phone Number [facility] [address] [place] [address] * HISTONE ANTIBODY (03/31/2021 9:59 AM CDT) [facility] Histone Antibodies <1.0 U [facility] Comment: Value Expanation of Results <1.0 Negative 1.0-1.5 Weak Positive 1.6-2.5 Moderate Positive >2.5 Strong Positive Test Performed at: [facility]/[employer] [facility] [address] [place] [address] JONATHAN LUQUE MD,PHD,JAQUELINE 03/31/2021 9:59 AM CDT 03/31/2021 9:59 AM CDT Mitchell Zamarripa MD LAB - CHEMISTRY INGRID DE GUZMAN Performing Organization Address City/[facility] Co de Phone Number [facility] [address] [place] [address] * SS-B (SJOGREN'S) ANTIBODY (03/31/2021 9:59 AM CDT) Only the most recent of2 resultswithin the time period is included. Sjogren's Antibodies (SSB) <1.0 NEG <1.0 NEG AI [facility] Comment: Test Performed at: [facility] [address] [place] [address] LUISA LAWRENCE DO,MPH 03/31/2021 9:59 AM CDT 03/31/2021 9:59 AM CDT Mitchell Zamarripa MD LAB - CHEMISTRY MANZANOLALeidy [facility] Performing Organization Address [facility] [place] [address] * SS-A (SJOGREN'S) ANTIBODY (03/31/2021 9:59 AM CDT) Only the most recent of2 resultswithin the time period is included. Sjogren's Antibodies (SSA) <1.0 NEG <1.0 NEG AI [facility] Comment: Test Performed at: [facility] [address] LUISA LAWRENCE DO,MPH 03/31/2021 9:59 AM CDT 03/31/2021 9:59 AM CDT Mitchell Zamarripa MD LAB - CHEMISTRY INGRID DE GUZMAN Performing Organization Address [facility] Co de Phone Number [facility] [id number] [place] [address] * SCLERODERMA 70 (SCL) ANTIBODY (03/31/2021 9:59 AM CDT) Only the most recent of2 resultswithin the time period is included. SCL-70 Antibody <1.0 NEG <1.0 NEG AI [facility] Comment: Test Performed at: [facility] [address] [facility] [place] [address] LUISA LAWRENCE DO,MPH 03/31/2021 9:59 AM CDT 03/31/2021 9:59 AM CDT Mitchell Zamarripa MD LAB - CHEMISTRY INGRID DE GUZMAN Performing Organization Address [facility] Co de Phone Number [facility] [phone] [place] [address] * DNA ANTIBODY DOUBLE STRANDED (03/31/2021 9:59 AM CDT) dsDNA Antibody <1 IU/mL [facility] Comment: IU/mL Interpretation < or = 4 Negative 5-9 Indeterminate > or = 10 Positive Test Performed at: [facility], [facility] [address] LUISA LAWRENCE DO,MPH 03/31/2021 9:59 AM CDT 03/31/2021 9:59 AM CDT Mitchell Zamarripa MD LAB - HEMATOLOGY SANAZ ORANTES Performing Organization Address [facility] Co de Phone Number [facility] [id number] [place] [address] * MARTHA-1 ANTIBODY (03/31/2021 9:59 AM CDT) Martha-1 Antibody <1.0 NEG <1.0 NEG AI [facility] Comment: Test Performed at: [facility], [place] [address] LUISA LAWRENCE DO,MPH 03/31/2021 9:59 AM CDT 03/31/2021 9:59 AM CDT Mitchell Zamarripa MD LAB - CHEMISTRY INGRID DE GUZMAN Performing Organization Address [facility] Co de Phone Number [place] [phone] * ALDOLASE (03/31/2021 9:59 AM CDT) Only the most recent of3 resultswithin the time period is included. Aldolase 5.2 < OR = 8.1 U/L [facility] Comment: Test Performed at: [facility] [address] [employer], [place] [address] LUISA LAWRENCE DO,MPH 03/31/2021 9:59 AM CDT 03/31/2021 9:59 AM CDT Mitchell Zamarripa MD LAB - CHEMISTRY INGRID DE GUZMAN Performing Organization Address [facility] Co de Phone Number [facility] [phone] [place] [address] * LDH BLOOD (03/31/2021 9:59 AM CDT) Only the most recent of3 resultswithin the time period is included. LD-Total 181 120 - 250 U/L [facility] Comment: Test Performed at: [facility] [address] LUISA LAWRENCE DO,MPH 03/31/2021 9:59 AM CDT 03/31/2021 9:59 AM CDT Mitchell Zamarripa MD LAB - CHEMISTRY INGRID DE GUZMAN Performing Organization Address [facility] Co de Phone Number [facility] [phone] [place] [address] * CK BLOOD (03/31/2021 9:59 AM CDT) Only the most recent of3 resultswithin the time period is included. CK 68 29 - 143 U/L [facility] Comment: Test Performed at: [place] [address] LUISA LAWRENCE DO,MPH 03/31/2021 9:59 AM CDT 03/31/2021 9:59 AM CDT Mitchell Zamarripa MD LAB - CHEMISTRY INGRID DE GUZMAN Performing Organization Address [facility] Co de Phone Number [facility] [address] [place] [phone] * CULTURE URINE REFLEXED I (12/21/2019 8:29 AM CDT) Reflexive Urine Culture NO CULTURE INDICATED [facility] Comment: Test Performed at: [facility], [place] [address] LUISA LAWRENCE DO,MPH 12/21/2019 8:29 AM CDT 12/21/2019 8:31 AM CDT Mitchell Zamarripa MD LAB - MICROBIOLOGY O RDERABLES Performing Organization Address [facility] de Phone Number [facility] [address] [place] [address] * (ABNORMAL) URINALYSIS W/MICROSCOPIC REFLEX TO CULTURE (12/21/2019 8:29 AM CDT) Color UA YELLOW YELLOW [facility] Appearance CLOUDY(A) CLEAR [facility] Specific Vallecitos UA 1.016 1.001 - 1.035 [facility] pH [...] MUCOUS THREADS [facility] Comment: Test Performed at: [facility] [place] [address] LUISA LAWRENCE DO,MPH Reflexive Urine Culture NO CULTURE INDICATED [facility] Comment: REPORT COMMENT: FASTING:YES Test Performed at: [place] [address] LUISA LAWRENCE DO,MPH Urine URINE SPECIMEN OBTAINED BY CLEAN CATCH PROCEDURE / Unknown 12/21/2019 8:29 AM CDT 12/21/2019 8:31 AM CDT Mitchell Zamarripa MD LAB - URINALYSIS ORD ERABLES Performing Organization Address [facility] Co de Phone Number [facility] [address] [place] [address] * (ABNORMAL) TY BLOOD SINGLE PATTERN (07/23/2019 2:21 PM POLYMERIZATION OVEN TENDER) TY Pattern Speckled( A) 07/25/2019 5:39 PM POLYMERIZATION OVEN TENDER [employer] ([facility]) TY Titer 1:80(A) 07/25/2019 5:39 PM POLYMERIZATION OVEN TENDER [employer] [facility] ([facility]) Comment: Performed by [employer], [address] [place] [address],[place] [address] [email or web address], Barry Carmona MD, Lab. Director Blood BLOOD SPECIMEN / Unknown Lab Venipuncture / Unknown 07/23/2019 2:21 PM POLYMERIZATION OVEN TENDER 07/23/2019 3:13 PM POLYMERIZATION OVEN TENDER Janes Smiht MD LAB - CHEMISTRY INGRID DE GUZMAN [facility] St[facility]) [address] [place] [address], [facility] * (ABNORMAL) SCLERODERMA COMPREHENSIVE AB PANEL (07/23/2019 2:21 PM POLYMERIZATION OVEN TENDER) TY HEp-2 IgG Detected(H ) <1:80 07/26/2019 7:52 PM POLYMERIZATION OVEN TENDER [facility] [employer] ([facility]) TY Interpretive Comment See Note 07/26/2019 7:52 PM POLYMERIZATION OVEN TENDER [facility] [employer] ([facility]) Comment: Speckled Pattern Clinical associations: SLE, SSc, SjS, DM, PM, MCTD, UCTD. May also be found in healthy individuals Main autoantibodies: Anti-SSA-52 (Ro52), anti-SSA-60 (Ro60), anti-SS-B/LA, anti-Kareem-1 (anti-Scl-70), Montiel, anti-U1-FLOOR WINDER, anti-U2-FLOOR WINDER, anti-Mi-2, anti-TIF1g, anti-Ku, anti-RNA polymerase, anti-DFS70/LEDGF-P75 Clinical [...] 0 - 40 AU/mL 07/26/2019 7:52 PM [facility] [employer] ([facility]) Comment: INTERPRETIVE INFORMATION: Scleroderma (Scl-70) (LAUERN) Ab, IgG 29 AU/mL or Less ............. [...] testing for centromere, RNA polymerase III and U3-FLOOR WINDER, PM/Scl, or Th/To antibodies. RNA Polymerase 3 Antibody IgG 5 0 - 19 Units 07/26/2019 7:52 PM [facility] [employer] ([facility]) Comment: INTERPRETIVE INFORMATION: RNA Polymerase III [...] antibodies associated with SSc, including centromere, Scl-70, U3-FLOOR WINDER, PM/Scl, or Th/To. Montiel/FLOOR WINDER (LAUREN) Antibody IgG 1 0 - 40 AU/mL 07/26/2019 7:52 PM [facility] [employer] ([facility]) Comment: INTERPRETIVE INFORMATION: Montiel/FLOOR WINDER (LAUREN) Antibody, IgG 29 AU/mL or Less ............. Negative 30 - 40 AU/mL ................ Equivocal 41 AU/mL or Greater .......... Positive Montiel/FLOOR WINDER antibodies are frequently seen in patients with mixed connective tissue disease (MCTD) and are also associated with other systemic autoimmune rheumatic diseases (SARDs) such as systemic lupus erythematosus (SLE), systemic sclerosis, and myositis. Antibodies targeting the Montiel/FLOOR WINDER antigenic complex also recognize Montiel antigens, therefore, the Montiel antibody response must be considered when interpreting these results. PM/Scl 100 Antibody IgG Negative Negative 07/26/2019 7:52 PM [facility] [employer] ([facility]) Comment: INTERPRETIVE INFORMATION: PM/Scl-100 Antibody, IgG [...] occur. Test developed and characteristics determined by [facility]. See Compliance Statement D: [facility]/CS Fibrillarin (U3 FLOOR WINDER) Antibody IgG Negative Negative 07/26/2019 7:52 PM POLYMERIZATION OVEN TENDER [facility] ([facility]) Comment: Interpretive Information: Fibrillarin (U3 FLOOR WINDER) Antibody, IgG The presence of fibrillarin (U3-FLOOR WINDER) IgG antibodies in association with an TY [...] a multi-ethnic cohort of SSc patients (n=98), U3-FLOOR WINDER antibodies detected by immunoblot had an agreement of 98.9 percent with the gold standard immunoprecipitation (IP) assay. Approximately 71 percent (5/7) of the borderline U3-FLOOR WINDER results with TY nucleolar pattern in this cohort were IP negative. Test developed and characteristics determined by [facility]. See Compliance Statement D: [email or web address] Performed by [facility], [address] [place] [address] [email or web address], Barry Carmona MD, Lab. Director Blood BLOOD SPECIMEN / Unknown Lab Venipuncture / Unknown 07/23/2019 2:21 PM POLYMERIZATION OVEN TENDER 07/23/2019 3:13 PM POLYMERIZATION OVEN TENDER Janes Smith MD LAB - SEROLOGY ORDER XOCHITL [employer] ([facility]) [address] [place] [address], [facility] * CYCLIC CITRUL PEPTIDE ANTIBODY IGG/IGA (CCP) (07/23/2019 2:21 PM POLYMERIZATION OVEN TENDER) CCP Antibodies IgG/IgA 10 0 - 19 units 07/24/2019 11:06 PM POLYMERIZATION OVEN TENDER [facility] ([facility]) Comment: Negative <20 Weak positive 20 - 39 Moderate positive 40 - 59 Strong positive >59 Blood BLOOD SPECIMEN / Unknown Lab Venipuncture / Unknown 07/23/2019 2:21 PM POLYMERIZATION OVEN TENDER 07/23/2019 3:13 PM POLYMERIZATION OVEN TENDER Narrative [facility] ([facility]) - 07/24/2019 11:06 PM POLYMERIZATION OVEN TENDER Performed at: - [address] [id number] Manager Transplant: Virginia Mojica MD, Phone: [phone] Janes Smith MD LAB - SEROLOGY ORDER XOCHITL [facility] ([facility]) [address] [place] [address] * DNA ANTIBODY DS CRITHIDIA TITER (07/23/2019 2:21 PM POLYMERIZATION OVEN TENDER) [facility] dsDNA Antibody IgG <1:10 <1:10 2018 4:54 PM POLYMERIZATION OVEN TENDER [employer] [facility] ([facility]) Comment: INTERPRETIVE INFORMATION: Double-Stranded DNA (dsDNA) [...] recommendations for testing may be found at [email or web address]. Performed by [employer], [address] [place] [id number] [email or web address], Barry Carmona MD, Lab. Director Blood BLOOD SPECIMEN / Unknown Lab Venipuncture / Unknown 07/23/2019 2:21 PM POLYMERIZATION OVEN TENDER 07/23/2019 3:13 PM POLYMERIZATION OVEN TENDER Janes Smith MD LAB - SEROLOGY ORDER XOCHITL [facility] ([facility]) [address] * (ABNORMAL) LUPUS ANTICOAGULANT PANEL (07/23/2019 2:21 PM POLYMERIZATION OVEN TENDER) APTT 28.3 23.0 - 38.4 Seconds 07/24/2019 11:07 AM [facility] PT 11.6(L) 12.1 - 14.8 Seconds 07/24/2019 11:07 AM [facility] INR 0.9 See Comment 07/24/2019 11:07 AM [facility] [place] Buffer 46.5 Seconds 019 11:07 AM [facility] [place] Phospholipid 42.7 Seconds 07/24/2019 11:07 AM [facility] [place] Delta 3.8 <8.0 Seconds 07/24/2019 11:07 AM [facility] Interpretation [place] Negative Negative 07/24/2019 11:07 AM [facility] Comment:Up to 15-20% of crystal ents with [...] Lab Venipuncture / Unknown 07/23/2019 2:21 PM POLYMERIZATION OVEN TENDER 07/23/2019 3:13 PM POLYMERIZATION OVEN TENDER Janes Smith MD LAB - HEMATOLOGY ORD ERABLES [facility] [address] [phone] * RHEUMATOID FACTOR BLOOD QUANTITATIVE (07/23/2019 2:21 PM POLYMERIZATION OVEN TENDER) Rheumatoid Factor <15 <30 IU/mL 07/23/2019 3:42 PM [facility] Blood BLOOD SPECIMEN / Unknown Lab Venipuncture / Unknown 07/23/2019 2:21 PM POLYMERIZATION OVEN TENDER 07/23/2019 3:13 PM POLYMERIZATION OVEN TENDER Janes Smith MD LAB - CHEMISTRY INGRID DE GUZMAN [facility] Organization Address City/State/ZIP Co de Phone Number [facility] [address] [phone] * OCT (06/25/2019 1:43 PM CDT) Anatomical Region Laterality Modality Other 06/25/2019 1:43 PM CDT Janes Smith MD OPHTHALMOLOGY SERVIC ES ORDERABLES * (ABNORMAL) URINALYSIS REFLEX TO MICROSCOPIC NO CULTURE (05/24/2019 12:43 PM CDT) Color UA Yellow Straw, Yellow, Colorless 05/24/2019 1:10 PM [facility] Clarity UA Clear Clear, Slt Cloudy 05/24/2019 1:10 PM T [facility] Specific [place] UA 1.014 1.005 - 1.030 05/24/2019 1:10 PM [facility] pH UA 7.0 5.0 - 8.0 pH 05/24/2019 1:10 PM [facility] Protein UA Negative Negative mg/dL 05/24/2019 1:10 PM [facility] Glucose UA Negative Negative mg/dL 05/24/2019 1:10 PM [facility] Ketone UA Negative Negative mg/dL 05/24/2019 1:10 PM [facility] Bilirubin UA Negative Negative mg/dL 05/24/2019 1:10 PM [facility] Blood UA Negative Negative 05/24/2019 1:10 PM [facility] Nitrite UA Negative Negative 05/24/2019 1:10 PM [facility] Leukocyte Esterase Negative Negative 05/24/2019 1:10 PM [facility] Urobilinogen UA Negative Negative mg/dL 05/24/2019 1:10 PM [facility] RBC UA 3-5 None Seen, 0-2, 3-5 /HPF 05/24/2019 1:10 PM CDT [facility] WBC UA 0-5 None Seen, 0-5 /HPF 05/24/2019 1:10 PM CDT [facility] Squamous Epithelial Cells UA 3-5(A) None Seen, 0-2 /HPF 05/24/2019 1:10 PM CDT [facility] Urine URINE SPECIMEN OBTAINED BY CLEAN CATCH PROCEDURE / Unknown Collection / Unknown 05/24/2019 12:43 PM CDT 05/24/2019 12:55 PM CDT Narrative [facility] - 05/24/2019 1:10 PM CDT Janes Smith MD LAB - URINALYSIS ORD ERABLES Performing Organization Address City/State/[facility] Co de Phone Number [address] [phone] * XR ANKLE RIGHT 3VW OR MORE [...] IgG units 05/26/2019 6:08 AM CDT [facility] ([facility]) Comment: The reference interval reflects a 3SD or 99th percentile interval, which is thought to represent a potentially clinically significant result in accordance with the International Consensus Statement on the classification criteria for definitive antiphospholipid syndrome (APS). J Thromb Haem 2006;4:295-306. Blood BLOOD SPECIMEN / Unknown Lab Venipuncture / Unknown 05/24/2019 12:10 PM CDT 05/24/2019 12:49 PM CDT Narrative [facility] ([facility]) - 05/26/2019 6:08 AM CDT Performed at: 01 - [facility] [id number] Manager Transplant: Virginia Mojica MD, Phone: [phone] Janes Smith MD LAB - SEROLOGY ORDER XOCHITL Performing Organization Address [facility] Co de Phone Number [facility] ([facility]) [address] [place] [address], [place] * BETA-2 GLYCOPROTEIN 1 ANTIBODY IGM (05/24/2019 12:10 PM CDT) [facility] Beta-2 Glycoprotein I Antibody IgM <9 0 - 32 GPI IgM units 05/26/2019 3:07 PM CDT [facility] ([facility]) Comment: The reference interval reflects a 3SD or 99th percentile interval, which is thought to represent a potentially clinically significant result in accordance with the International Consensus Statement on the classification criteria for definitive antiphospholipid syndrome (APS). J Thromb Haem 2006;4:295-306. Blood BLOOD SPECIMEN / Unknown Lab Venipuncture / Unknown 05/24/2019 12:10 PM CDT 05/24/2019 12:49 PM CDT Narrative [facility] ([facility]) - 05/26/2019 3:07 PM CDT Performed at: 01 - [address] [id number] Manager Transplant: Virginia Mojica MD, Phone: [phone] Janes Smith MD LAB - SEROLOGY ORDER XOCHITL Performing Organization Address [facility] Co de Phone Number [facility] [address] [place] [address], [place] * CARDIOLIPIN ANTIBODY IGA (05/24/2019 12:10 PM CDT) Pathologist [facility] Cardiolipin Antibody IgA <9 0 - 11 APL U/mL 05/25/2019 4:09 PM CDT [facility] ([facility]) Comment: Negative: <12 Indeterminate: 12 - 20 Low-Med Positive: >20 - 80 High Positive: >80 Blood BLOOD SPECIMEN / Unknown Lab Venipuncture / Unknown 05/24/2019 12:10 PM CDT 05/24/2019 12:49 PM CDT Narrative [facility] ([facility]) - 05/25/2019 4:09 PM CDT Performed at: [address] [place] [address] [id number] Manager Transplant: Khang Rosario PhD, Phone: [phone] Janes Smith MD LAB - SEROLOGY ORDER XOCHITL Performing Organization Address City/[facility] Co de Phone Number [facility] ([facility]) [address] [place] [address] * CARDIOLIPIN ANTIBODY IGM (05/24/2019 12:10 PM CDT) Pathologist [facility] Cardiolipin Antibody IgM <9 0 - 12 MPL U/mL 05/25/2019 4:09 PM [facility]T [facility]) Comment: Negative: <13 Indeterminate: 13 - 20 Low-Med Positive: >20 - 80 High Positive: >80 Blood BLOOD SPECIMEN / Unknown Lab Venipuncture / Unknown 05/24/2019 12:10 PM CDT 05/24/2019 12:49 PM CDT Narrative [facility] ([facility]) - 05/25/2019 4:09 PM CDT Performed at: [address] [place] [address] [id number] Manager Transplant: Khang Rosario PhD, Phone: [phone] Janes Smith MD LAB - SEROLOGY ORDER XOCHITL Performing Organization Address City/[facility]/ZIP Co de Phone Number [facility] ([facility]) [address] [place] [address] * CARDIOLIPIN ANTIBODY IGG (05/24/2019 12:10 PM CDT) Pathologist [facility] Cardiolipin Antibody IgG <9 0 - 14 GPL U/mL 05/25/2019 4:09 PM CDT [facility] ([facility]) Comment: Negative: <15 Indeterminate: 15 - 20 Low-Med Positive: >20 - 80 High Positive: >80 Blood BLOOD SPECIMEN / Unknown Lab Venipuncture / Unknown 05/24/2019 12:10 PM CDT 05/24/2019 12:49 PM CDT Narrative [facility] ([facility]) - 05/25/2019 4:09 PM CDT Performed at: - [facility] [address] [place] [address] [id number] Manager Transplant: Khang Rosario PhD, Phone: [phone] Janes Smith MD LAB - SEROLOGY ORDER XOCHITL Performing Organization Address City/[facility]/ZIP Co de Phone Number [facility] ([facility]) [address] [place] [address] * MONTIEL (SM) ANTIBODY LAUREN (05/24/2019 12:10 PM CDT) Pathologist [facility] Montiel Antibody 3.4 0.0 - 19.9 Units 05/25/2019 10:05 AM CDT [facility] Comment: LAUREN Antibody Numeric Result Interpretation: <20.0 Units: Negative 20.0 - 39.0 Units: Weakly Positive >39.0 Units: Positive Blood BLOOD SPECIMEN / Unknown Lab Venipuncture / Unknown 05/24/2019 12:10 PM CDT 05/24/2019 12:48 PM CDT Janes Smith MD LAB - CHEMISTRY INGRID DE GUZMAN [address] [phone] * FLOOR WINDER ANTIBODY (05/24/2019 12:10 PM CDT) [facility] SM/FLOOR WINDER Antibody 3.2 0.0 - 19.9 Units 05/25/2019 10:05 AM CDT [facility] Comment: LAUREN Antibody Numeric Result Interpretation: <20.0 Units: Negative 20.0 - 39.0 Units: Weakly Positive >39.0 Units: Positive Blood BLOOD SPECIMEN / Unknown Lab Venipuncture / Unknown 05/24/2019 12:10 PM CDT 05/24/2019 12:48 PM CDT Janes Smith MD LAB - CHEMISTRY INGRID DE GUZMAN Performing Organization Address City/[facility]/ZIP Co de Phone Number [facility] [address] [place] [address] * TY BLOOD SCREEN W/REFLEX TITER (05/24/2019 12:10 PM CDT) TY Negative 05/25/2019 5:07 PM CDT [facility] ([facility]) Comment: Negative <1:80 Borderline 1:80 Positive >1:80 Blood BLOOD SPECIMEN / Unknown Lab Venipuncture / Unknown 05/24/2019 12:10 PM CDT 05/24/2019 12:49 PM CDT Narrative [facility] ([facility]) - 05/25/2019 5:07 PM CDT Performed at: [address] [place] [address] [id number] Manager Transplant: Khang Rosario PhD, Phone: [phone] Janse Smith MD LAB - CHEMISTRY INGRID DE GUZMAN Performing Organization Address City/[facility] Co de Phone Number [facility] ([facility]) [address] [place] [address] * BETA-2 GLYCOPROTEIN 1 ANTIBODY IGA (05/24/2019 12:10 PM CDT) Beta-2 Glycoprotein I Antibody IgA <9 0 - 25 GPI IgA units 05/26/2019 6:08 AM CDT [facility] ([facility]) Comment: The reference interval reflects a 3SD or 99th percentile interval, which is thought to represent a potentially clinically significant result in accordance with the International Consensus Statement on the classification criteria for definitive antiphospholipid syndrome (APS). J Thromb Haem 2006;4:295-306. Blood BLOOD SPECIMEN / Unknown Lab Venipuncture / Unknown 05/24/2019 12:10 PM CDT 05/24/2019 12:49 PM CDT [facility]ative [facility] - 05/26/2019 6:08 AM CDT Performed at: [address] [place] [address] [id number] Manager Transplant: Virginia Mojica MD, Phone: [phone] Janes Smith MD LAB - SEROLOGY ORDER XOCHITL Performing Organization Address [facility] Co de Phone Number [facility] ([facility]) [address] [place] [address] * COMPLEMENT TOTAL (05/24/2019 12:10 PM CDT) Pathologist [facility] Complement Total CH50 >60 42 - 529144 U/mL 05/25/2019 3:08 PM CDT [facility] ([facility]) Blood BLOOD SPECIMEN / Unknown Lab Venipuncture / Unknown 05/24/2019 12:10 PM CDT 05/24/2019 12:49 PM CDT [facility] ([facility]) - 05/25/2019 3:08 PM CDT Performed at: [address] [place] [address] [place] [address] [id number] Manager Transplant: Khang Rosario PhD, Phone: [phone] Janes Smith MD LAB - CHEMISTRY ORDLeidy DE GUZMAN Performing Organization Address City/[facility] Co de Phone Number [facility]) [address] [place] [address] * VITAMIN D 25-HYDROXY (05/24/2019 12:10 PM CDT) Pathologist [facility] Vitamin D, 25 Hydroxy 62.3 See comment: ng/mL 05/24/2019 1:48 PM CDT [facility] Comment: The recommendations for [...] MD LAB - CHEMISTRY INGRID DE GUZMAN [address] [phone] * COMPLEMENT C4 (05/24/2019 12:10 PM CDT) Complement C4 39 15 - 57 mg/dL 05/24/2019 1:27 PM CDT [facility] Blood BLOOD SPECIMEN / Unknown Lab Venipuncture / Unknown 05/24/2019 12:10 PM CDT 05/24/2019 12:48 PM CDT Janes Smith MD LAB - SEROLOGY ORDER XOCHITL Performing Organization Address [facility]/[place] [address], [facility] [phone] * COMPLEMENT C3 (05/24/2019 12:10 PM CDT) Complement C3 151 82 - 193 mg/dL 05/24/2019 1:27 PM CDT [facility] Blood BLOOD SPECIMEN / Unknown Lab Venipuncture / Unknown 05/24/2019 12:10 PM CDT 05/24/2019 12:48 PM CDT Janes Smith MD LAB - CHEMISTRY INGRID DE GUZMAN Performing Organization Address City/[facility]/[place] [address], [facility] [phone] * CARDIAC RHYTHM STRIP ORDER (11/11/2011 11:11 AM CDT) Narrative Transcriptions Document, Scanned - 11/11/2011 11:11 AM CDT Scanned Document CARDIAC SERVICES ORD ERABLES * CARDIAC ECHOCARDIOGRAM COMPLETE ORDER (11/11/2011 11:11 AM CDT) Narrative Transcriptions Document, Scanned - 11/11/2011 11:11 AM CDT Scanned Document ECHO ORDERABLES * BLOOD TYPE VERIFICATION (10/28/2011 8:35 AM POLYMERIZATION OVEN TENDER) ABO Rh B Pos SEE BELOW [facility] Comment: Weak D testing is not performed at [facility] BLOOD SPECIMEN / Unknown 10/28/2011 8:35 AM POLYMERIZATION OVEN TENDER 10/28/2011 9:53 AM POLYMERIZATION OVEN TENDER Emery Zepeda MD LAB - BLOOD BANK ORD FontactoBLES Performing Organization Address [facility] de Phone Number [facility] [address] [place] [phone] * TYPE + SCREEN PANEL (10/28/2011 8:30 AM POLYMERIZATION OVEN TENDER) ABO Rh B Pos SEE BELOW [facility] Comment: Weak D testing is not performed at [facility] Antibody Screen Neg [facility] Previous History Check Done Historical blood type on record, type verification complete. [facility] Miscellaneous samples (specimen) BLOOD SPECIMEN / Unknown 10/28/2011 8:30 AM POLYMERIZATION OVEN TENDER 10/28/2011 9:23 AM POLYMERIZATION OVEN TENDER Emery Zepeda MD LAB - BLOOD BANK ORD FontactoBLES Performing Organization Address City/[facility] Co de Phone Number [facility] [address] [place] [address] * CBC W/O DIFFERENTIAL (10/28/2011 8:30 AM POLYMERIZATION OVEN TENDER) WBC 9.4 4.0 - 10.0 K/C[facility] RBC 4.41 3.80 - 5.80 M/CUMM [facility] Hemoglobin 14.1 12.0 - 16.0 gm/dL [facility] Hematocrit 41.2 37.0 - 47.0 % [facility] MCV 93.4 80.0 - 100.0 fl [facility] MCH 32.0 26.0 - 34.0 pg [facility] MCHC 34.2 31.0 - 37.0 gm/dL [facility] RDW 12.5 11.5 - 14.5 % [facility] Platelet Count 373 150 - 400 K/[facility] Blood specimen (specimen) BLOOD SPECIMEN / Unknown 10/28/2011 8:30 AM POLYMERIZATION OVEN TENDER 10/28/2011 9:22 AM POLYMERIZATION OVEN TENDER Emery Zepeda MD LAB - HEMATOLOGY ORD ERABLES Performing Organization Address [facility] Co de Phone Number [facility] [address] [place] [address] * BASIC METABOLIC PANEL (CALCIUM TOTAL) (10/28/2011 8:30 AM POLYMERIZATION OVEN TENDER) Sodium 141 136 - 145 mmol/L [facility] Potassium 3.9 3.5 - 5.1 mmol/L [facility] Chloride 103 98 - 107 mmol/L [facility] BUN 15 7 - 21.0 mg/dl [facility] Creatinine 0.86 0.5 - 1.3 mg/dl [facility] Glucose 81 65 - 105 mg/dl [facility] CO2 30 22 - 30 mmol/L [facility] Calcium 9.3 8.5 - 10.1 mg/dl [facility] eGFR by MDRD >60 >60 mL/min/1.7 3m2 [facility] Comment eGFR [facility] Comment: The eGFR does not apply to patients who are younger than 18 or older than 70. Blood specimen (specimen) BLOOD SPECIMEN / Unknown 10/28/2011 8:30 AM POLYMERIZATION OVEN TENDER 10/28/2011 9:22 AM POLYMERIZATION OVEN TENDER Emery Zepeda MD LAB - CHEMISTRY ORDLeidy DE GUZMAN Performing Organization Address City/[facility] Co de Phone Number [facility] [address] [place] [phone] * CULTURE URINE COMPREHENSIVE (06/12/2011 10:00 AM CDT) Culture SEE NOTE [facility] ([facility]) Comment: CULTURE, URINE, SPECIAL MICRO NUMBER: [id number] TEST STATUS: FINAL SPECIMEN SOURCE: URINE (CATHETER COLLECTED) SPECIMEN QUALITY: ADEQUATE RESULT: No Growth NO COLLECTION DATE RECEIVED. WE HAVE USED THE DATE THE SPECIMEN WAS RECEIVED BY THIS LABORATORY THE COLLECTION DATE. IF THIS IS INCORRECT, PLEASE CONTACT CLIENT SERVICES. PHONE NUMBER: [phone] Test Performed at: [facility] [address] [id number] LUISA LAWRENCE DO Urine specimen (specimen) URINE SPECIMEN COLLECTION, CATHETERIZED / Unknown 06/12/2011 10:00 AM CDT 06/10/2011 1:12 AM CDT Narrative [facility] ([facility]) - 06/12/2011 10:00 AM CDT Preferred Lab:->[facility] Emery Zepeda MD LAB - MICROBIOLOGY O RDERABLES [facility] ([facility]) * URINALYSIS - POINT OF CARE (AMB) [facility] (08/29/1998 12:00 AM POLYMERIZATION OVEN TENDER) Glucose UA neg [facility] Bilirubin UA POCT neg [facility] Ketones UA POCT neg [facility] Specific Vallecitos UA 1.010 [facility] Blood Urine POCT neg [facility] pH UA 5.0 [facility]END[facility] Protein UA neg [facility] Urobilinogen UA neg [facility] Nitrite UA neg [facility] WBC UA neg [facility] Urine specimen (specimen) 08/29/1998 Emery Zepeda MD LAB - POINT OF CARE ORDERABLES [facility] Care Teams Financial Analysis Consultant Relationship Specialty Start Date End Date Shandra Ruffin, [employer] COVERER-TANKAGE SUPERVISOR [address] [place] [address] PCP - General 04/02/22
--- OUTSIDE RECORDS SUMMARY | 2024-10-11 00:25 | XMS_ITS | Clinical Summary ---
Author Organization [facility] Address [address] [place] [address] Phone Care Team Providers Care Recycling Coordinator Name Role Phone JAM MCDONNELL PA-C Primary Care Provider [phone] Reason for Visit and Chief Complaint HEART [...] apnea, unspecified, Supraventricular tachycardia, unspecified [facility] 11/14/2023 Last Documented On 4 12:05PM ; [facility] Medical History Includes: Medical History addressed [...] Diagnosis HEART CENTER CHECK UP TIFFANY HOWARD [facility] 4 10:58AM 11:28AM Insurance Includes: Active Insurance Policies Plan Name Member ID Group # Subscriber Relationship Effect cyn Dates 1 - [employer] [id number] NIGHAT EDLANEY Self Clinical Notes Includes: Clinical Notes from this encounter No Clinical Notes Recorded
--- OUTSIDE RECORDS SUMMARY | 2024-10-11 00:25 | XMS_ITS | Data Portability ---
Author Organization [facility] Address [address] [place] [address] Care Team Providers Care Legal Mediator Name Role Phone JAM LEDEZMA Primary Care Provider Assessment No assessment recorded. Plan of Treatment Reminders Order Date Submit Date Provider Last Modified By Organization Details Last Modified Time Details Appointments None recorde d. Lab PTH (parath yroid hormone ), intact + calcium , serum or plasma 2019 020 hspraggs [facility], [address] [place] [address], [address], [place], [address], 0 15:26:23 unliste d lab - complia nce drug analysi s, ur 2019 020 REUBEN [facility], [address], [address], [place], [address], 0 15:09:11 PTH (parath yroid hormone ), intact + calcium , serum or plasma 2019 020 bbertoglioma [facility], [address], [address], [place], [address], 0 18:10:55 Referral oncolog ist referra l - ANABEL 2019 020 tima Rivero MD, 4 [facility] , [address], [address], 0 11:06:22 dermato logist referra l 2019 ssander Not available 0 14:26:11 orthope dic referra l 2019 ssander [facility], [address] [facility] [address], [place], [address], 0 14:14:57 Procedures None recorde d. Surgeries None recorde d. Imaging XR, lumbar spine 2019 REUBEN [facility] ([facility]) Scheduling, [address] [facility], [place], [address], 0 14:17:01 CT, lower leg, w/ contras t 2019 [facility] (Scheduling), [address], [place], [address], 0 15:02:33 NM, bone scan 2019 bbertoglioma [place] [facility] (Radiology), [address] [facility] , [place], [address], 0 15:52:19 Medication Orders gabapen tin 100 mg capsule 2019 INTERFACE [facility][id number], [address], [place], [place], [id number], 0 12:02:47 calcito marlo (salmon ) 200 unit/ac tuation nasal spray 2019 020 INTERFACE [facility] #[id number], [address], [place], [place], [id number], 0 15:02:19 acetami nophen 300 mg-code ine 30 mg tablet 2019 020 [id number], [address], [place], [place], [id number], 1 17:09:49 Patient TargetsNo targets recorded. 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) [address] [place], [address], 12/28/2019 07:08:47 12/27/1912/28/2019 CMP, serum or plasm a BUN 15 mg/dL 6-24 Not Available [facility] ([facility]) [address] [place], [address], 12/28/2019 07:08:47 12/27/1912/28/2019 CMP, serum or plasm a creatinine 0.80 mg/dL 0.57-1 .00 Not Available [facility] ([facility]) [address] [place], [address], 12/28/2019 07:08:47 12/27/1912/28/2019 CMP, serum or plasm a eGFR if nonafricn AM 82 mL/mi n/1.7 3 >59 Not Available [facility] ([facility]) [address] [place], [address], 12/28/2019 07:08:47 12/27/1912/2712/28/2019 CMP, serum or plasm a eGFR if africn AM 95 mL/mi n/1.7 3 >59 Not Available [facility] ([facility]) [address] [place], [address], 12/28/2019 07:08:47 12/27/19 20 12/28/2019 CMP, serum or plasm a BUN/creatini ne ratio 19 9-23 Not Available [facility] ([facility]) [address] [place], [address], 12/28/2019 07:08:47 12/27/1912/28/2019 CMP, serum or plasm a sodium 138 mmol/ L 134-14 4 Not Available [facility] ([facility]) [address] [place], [address], 12/28/2019 07:08:47 12/27/19 20 12/28/2019 CMP, serum or plasm a potassium 4.2 mmol/ L 3.5-5. 2 Not Available [facility] ([facility] [place]) [address] [place], [address], 12/28/2019 07:08:47 12/27/19 20 12/28/2019 CMP, serum or plasm a chloride 98 mmol/ L 96-106 Not Available [facility] ([facility]) [address] [place], [address], 12/28/2019 07:08:47 12/27/1912/28/2019 CMP, serum or plasm a carbon dioxide, total 23 mmol/ L 20-29 Not Available [facility] ([facility]) [address] [place], [address], 12/28/2019 07:08:47 12/27/1912/28/2019 CMP, serum or plasm a calcium 10.1 mg/dL 8.7-10 .2 Not Available [facility] ([facility]) [address] [place], [address], 12/28/2019 07:08:47 12/27/19 20 12/28/2019 CMP, serum or plasm a protein, total 7.3 g/dL 6.0-8. 5 Not Available [facility] ([facility]) [address] [place], [address], 12/28/2019 07:08:47 12/27/1912/28/2019 CMP, serum or plasm a albumin 4.8 g/dL 3.8-4. 9 Not Available [facility] ([facility]) [address] [place], [address], 12/28/2019 07:08:47 12/27/1912/28/2019 CMP, serum or plasm a globulin, total 2.5 g/dL 1.5-4. 5 Not Available [facility] ([facility]) [address] [place], [address], 12/28/2019 07:08:47 12/27/1912/28/2019 CMP, serum or plasm a A/G ratio 1.9 1.2-2. 2 Not Available [facility] ([facility]) [address] [place], [address], 12/28/2019 07:08:47 12/27/1912/28/2019 CMP, serum or plasm a bilirubin, total 0.4 mg/dL 0.0-1. 2 Not Available [facility] ([facility]) [address] [place], [address], 12/28/2019 07:08:47 12/27/1912/28/2019 CMP, serum or plasm a alkaline phosphatase 114 IU/L 39-117 Not Available [facility] ([facility]) [address] [place], [address], 12/28/2019 07:08:47 12/27/1912/28/2019 CMP, serum or plasm a AST (SGOT) 40 IU/L 0-40 Not Available [facility] ([facility]) [address], [place], [address], 12/28/2019 07:08:47 12/27/1912/28/2019 CMP, serum or plasm a ALT (SGPT) 29 IU/L 0-32 Not Available [facility] ([facility]) [address] [facility], [place], [address], 12/28/2019 07:08:47 12/27/19 20 12/28/2019 vitam in D, 25-hy droxy , total , serum vitamin D, 25-hydroxy 34.2 NG/mL 30.0-1 00.0 Vitam in D defic iency has been defin ed by the [facility] and an Endoc rine Socie ty pract ice guide line as a level of serum 25-OH vitam in D less than 20 ng/mL (1,2) . The Endoc rine Socie ty went on to furth er defin e vitam in D insuf ficie ncy as a level betwe en 21 and 29 ng/mL (2). 1. IOM ([facility]). 2010. Melany ry refer ence kristina es for calci um and D. Zackary baum [place]: The [facility] Press . 2. Patricia valdez MF, Jluis albert [place], [place] off-F errar i GARCIA, et al. Evalu ation , treat ment, and preve ntion of vitam in D defic iency : an Endoc rine Socie ty clini tessie pract ice guide line. JCEM. 2010; 96(7) :1911 -30. Not Available [facility] ([facility]) [address] [facility], [place], [address], 12/28/2019 07:08:48 02/11/2002/19/2020 drug scree n, urine [...] [place] [address] EXPEC JALYN ng/mg creat Morph ine 1924 EXPEC JALYN ng/mg creat Normo rphin e 572 EXPEC JALYN ng/mg creat Emerson deine 1659 EXPEC JALYN ng/mg creat Sourc [...] expec jalyn metab olite of morph ine. Emerson deine is an expec jalyn metab olite [...] Clobe tasol Ezeti mibe Fluti kelsie e Chloe chlor othia zide (Samantha nopri l-HCT Z) Chloe xychl oroqu ine Levot hyrox ine Lisin [...] ===== ===== ===== ===== === Not Available [facility] [address] [facility], [place], [address], 02/19/2020 15:09:11 02/11/20 20 02/19/2020 drug scree n, urine pdf . Not Available [address] [facility], [place], [address], 02/19/2020 15:09:11 04/28/20 20 04/28/2020 PTH (para [...] - 65 < 8.6 Not Available [facility] ([facility]) [address] [place], [address], 04/29/2020 17:08:21 04/28/20 20 04/29/2020 PTH (para thyro id hormo ne), intac t + calci um, serum or plasm a calcium TNP mg/dL No serum gel recei dillon. Not Available [facility] ([facility]) [address] [place], [address], 04/29/2020 17:08:21 04/28/20 20 04/29/2020 PTH (para thyro id hormo ne), intac t + calci um, serum or plasm a PTH, intact 63 pg/mL 15-65 Not Available [facility] ([facility]) [address] [place], [address], 04/29/2020 17:08:21 04/28/20 20 04/29/2020 speci men statu s repor t specimen status report TNP No serum gel recei dillon. TEST: [id number] 6 Calci um Panel : 69657 1 Not Available [facility] ([facility]) [address] [place], [address], 04/29/2020 17:08:22 04/30/2005/01/2020 TSH + free T4, serum TSH 4.230 uIU/m L 0.450- 4.500 Not Available [facility] ([facility]) [address] [place], [address], 05/01/2020 08:17:01 04/30/2005/01/2020 TSH + free T4, serum T4,free(dire ct) 1.18 NG/dL 0.82-1 .77 Not Available [facility] ([facility]) [address] [place], [address], 05/01/2020 08:17:01 04/30/2005/01/2020 CBC w/ auto diff WBC 5.2 x10e3 /uL 3.4-10 .8 Not Available [facility] ([facility]) [address] [facility], [place], [address], 05/01/2020 08:17:02 04/30/2005/01/2020 CBC w/ auto diff RBC 4.16 x10e6 /uL 3.77-5 .28 Not Available [facility] ([facility]) [address] [facility], [place], [address], 05/01/2020 08:17:02 04/30/2005/01/2020 CBC w/ auto diff hemoglobin 13.9 g/dL 11.1-1 5.9 Not Available [facility] ([facility]) [address] [facility], [place], [address], 05/01/2020 08:17:02 04/30/2005/01/2020 CBC w/ auto diff hematocrit 39.7 % 34.0-4 6.6 Not Available [facility] ([facility]) [address] [facility], [place], [address], 05/01/2020 08:17:02 04/30/2005/01/2020 CBC w/ auto diff MCV 95 fL 79-97 Not Available [facility] ([facility]) [address] [place], [address], 05/01/2020 08:17:02 04/30/2005/01/2020 CBC w/ auto diff MCH 33.4 pg 26.6-3 3.0 above high normal Not Available [facility] ([facility]) [address] [place], [address], 05/01/2020 08:17:02 04/30/2005/01/2020 CBC w/ auto diff MCHC 35.0 g/dL 31.5-3 5.7 Not Available [facility] ([facility]) [address] [facility], [place], [address], 05/01/2020 08:17:02 04/30/2005/01/2020 CBC w/ auto diff RDW 13.4 % 11.7-1 5.4 Not Available [facility] ([facility]) [address] [facility], [place], [address], 05/01/2020 08:17:02 04/30/2005/01/2020 CBC w/ auto diff platelets 296 x10e3 /uL 150-45 0 Not Available [facility] ([facility]) [address] [facility], [place], [address], 05/01/2020 08:17:02 04/30/2005/01/2020 CBC w/ auto diff neutrophils 72 % not estab. Not Available [facility] ([facility]) [address] [facility], [place], [address], 05/01/2020 08:17:02 04/30/2005/01/2020 CBC w/ auto diff lymphs 14 % not estab. Not Available [facility] ([facility]) [address] [facility], [place], [address], 05/01/2020 08:17:02 04/30/2005/01/2020 CBC w/ auto diff monocytes 7 % not estab. Not Available [facility] ([facility]) [address] [facility], [place], [address], 05/01/2020 08:17:02 04/30/2005/01/2020 CBC w/ auto diff eos 4 % not estab. Not Available [facility] ([facility]) [address] [facility], [place], [address], 05/01/2020 08:17:02 04/30/2005/01/2020 CBC w/ auto diff basos 2 % not estab. Not Available [facility] ([facility]) [address] [facility], [place], [address], 05/01/2020 08:17:02 04/30/2005/01/2020 CBC w/ auto diff immature cells SAUSAGE WRAPPER Not Available [facility] ([facility]) [address] [place], [address], 05/01/2020 08:17:02 04/30/2005/01/2020 CBC w/ auto diff neutrophils (absolute) 3.8 x10e3 /uL 1.4-7. 0 Not Available [facility] ([facility]) [address] [place], [address], 05/01/2020 08:17:02 04/30/2005/01/2020 CBC w/ auto diff lymphs (absolute) 0.7 x10e3 /uL 0.7-3. 1 Not Available [facility] ([facility]) [address] [place], [address], 05/01/2020 08:17:02 04/30/2005/01/2020 CBC w/ auto diff monocytes(ab solute) 0.4 x10e3 /uL 0.1-0. 9 Not Available [facility] ([facility]) [address] [place], [address], 05/01/2020 08:17:02 04/30/2005/01/2020 CBC w/ auto diff eos (absolute) 0.2 x10e3 /uL 0.0-0. 4 Not Available [facility] ([facility]) [address] [place], [address], 05/01/2020 08:17:02 04/30/2005/01/2020 CBC w/ auto diff baso (absolute) 0.1 x10e3 /uL 0.0-0. 2 Not Available [facility] ([facility]) [address] [place], [address], 05/01/2020 08:17:02 04/30/2005/01/2020 CBC w/ auto diff immature granulocytes 1 % not estab. Not Available [facility] ([facility]) [address] [place], [address], 05/01/2020 08:17:02 04/30/2005/01/2020 CBC w/ auto diff immature grans (abs) 0.0 x10e3 /uL 0.0-0. 1 Not Available [facility] ([facility]) [address] [facility], [place], [address], 05/01/2020 08:17:02 04/30/2005/01/2020 CBC w/ auto diff NRBC SAUSAGE WRAPPER Not Available [facility] ([facility]) [address] [place], [address], 05/01/2020 08:17:02 04/30/2005/01/2020 CBC w/ auto diff hematology comments: SAUSAGE WRAPPER Not Available [facility] ([facility]) [address] [facility], [place], [address], 05/01/2020 08:17:02 04/30/2005/01/2020 CMP, serum or plasm a glucose 109 mg/dL 65-99 above high normal Not Available [facility] ([facility]) [address] [place], [address], 05/01/2020 08:17:03 04/30/2005/01/2020 CMP, serum or plasm a BUN 12 mg/dL 6-24 Not Available [facility] ([facility]) [address] [place], [address], 05/01/2020 08:17:03 04/30/2005/01/2020 CMP, serum or plasm a creatinine 0.65 mg/dL 0.57-1 .00 Not Available [facility] ([facility]) [address] [place], [address], 05/01/2020 08:17:03 04/30/2005/01/2020 CMP, serum or plasm a eGFR if nonafricn AM 99 mL/mi n/1.7 3 >59 Not Available [facility] ([facility]) [address] [place], [address], 05/01/2020 08:17:03 04/30/20 20 05/01/2020 CMP, serum or plasm a eGFR if africn AM 114 mL/mi n/1.7 3 >59 Not Available [facility] ([facility]) [address] [place], [address], 05/01/2020 08:17:03 04/30/20 20 05/01/2020 CMP, serum or plasm a BUN/creatini ne ratio 18 9-23 Not Available [facility] ([facility]) [address] [place], [address], 05/01/2020 08:17:03 04/30/2005/01/2020 CMP, serum or plasm a sodium 139 mmol/ L 134-14 4 Not Available [facility] ([facility]) [address] [place], [address], 05/01/2020 08:17:03 04/30/2005/01/2020 CMP, serum or plasm a potassium 4.4 mmol/ L 3.5-5. 2 Not Available [facility] ([facility]) [address] [place], [address], 05/01/2020 08:17:03 04/30/2005/01/2020 CMP, serum or plasm a chloride 96 mmol/ L 96-106 Not Available [facility] ([facility]) [address] [place], [address], 05/01/2020 08:17:03 04/30/2005/01/2020 CMP, serum or plasm a carbon dioxide, total 27 mmol/ L 20-29 Not Available [facility] ([facility]) [address] [place], [address], 05/01/2020 08:17:03 04/30/2005/01/2020 CMP, serum or plasm a calcium 10.0 mg/dL 8.7-10 .2 Not Available [facility] ([facility]) [address] [place], [address], 05/01/2020 08:17:03 04/30/2005/01/2020 CMP, serum or plasm a protein, total 7.0 g/dL 6.0-8. 5 Not Available [facility] ([facility]) [address] [place], [address], 05/01/2020 08:17:03 04/30/2005/01/2020 CMP, serum or plasm a albumin 4.6 g/dL 3.8-4. 9 Not Available [facility] ([facility]) [address] [place], [address], 05/01/2020 08:17:03 04/30/2005/01/2020 CMP, serum or plasm a globulin, total 2.4 g/dL 1.5-4. 5 Not Available [facility] ([facility]) [address] [place], [address], 05/01/2020 08:17:03 04/30/2005/01/2020 CMP, serum or plasm a A/G ratio 1.9 1.2-2. 2 Not Available [facility] ([facility]) [address] [place], [address], 05/01/2020 08:17:03 04/30/2005/01/2020 CMP, serum or plasm a bilirubin, total 0.5 mg/dL 0.0-1. 2 Not Available [facility] ([facility]) [address] [place], [address], 05/01/2020 08:17:03 04/30/2005/01/2020 CMP, serum or plasm a alkaline phosphatase 231 IU/L 39-117 above high normal Not Available [facility] ([facility]) [address] [facility], [place], [address], 05/01/2020 08:17:03 04/30/20 20 05/01/2020 CMP, serum or plasm a AST (SGOT) 83 IU/L 0-40 above high normal Not Available [facility] ([facility]) [address] [facility], [place], [address], 05/01/2020 08:17:03 04/30/20 20 05/01/2020 CMP, serum or plasm a ALT (SGPT) 63 IU/L 0-32 above high normal Not Available [facility] ([facility]) [address] [facility], [place], [address], 05/01/2020 08:17:03 04/30/20 20 04/30/2020 urina lysis , dipst ick Leukocytes Negati ve Not Available In-Office Order Internal Use Only DO Not Attach Compendium DO Not Attach Compendium, Do Not Delete/merge, [id number] 04/30/2020 11:03:06 04/30/2004/30/2020 urina lysis , dipst ick Nitrite negati ve Not Available In-Office Order Internal Use Only DO Not Attach Compendium DO Not Attach Compendium, Do Not Delete/merge, [id number] 04/30/2020 11:03:06 04/30/2004/30/2020 urina lysis , dipst ick Urobilinogen .2 Not Available In-Of fice Order Internal Use Only DO Not Attach Compendium DO Not Attach Compendium, Do Not Delete/merge, [id number] 04/30/2020 11:03:06 04/30/2004/30/2020 urina lysis , dipst ick Protein Negati ve Not Available In-Office Order Internal Use Only DO Not Attach Compendium DO Not Attach Compendium, Do Not Delete/merge, [id number] 04/30/2020 11:03:06 04/30/20 20 04/30/2020 urina lysis , dipst ick pH 6.5 Not Available In-Office Order Internal Use Only DO Not Attach Compendium DO Not Attach Compendium, Do Not Delete/merge, [id number] 04/30/2020 11:03:06 04/30/20 20 04/30/2020 urina lysis , dipst ick Blood Negati ve Not Available In-Office Order Internal Use Only DO Not Attach Compendium DO Not Attach Compendium, Do Not Delete/merge, [id number] 04/30/2020 11:03:06 04/30/20 20 04/30/2020 urina lysis , dipst ick Specific [place] 1.020 Not Available In-Off ice Order Internal [...] r spine No observ ation record ed. [address], [place], [address], 02/07/2020 17:22:18 02/19/20 20 02/19/2020 NM, bone scan No observ ation record ed. ssander [facility] [address] [facility] [place], [address], 02/19/2020 17:52:46 03/25/20 20 03/25/2020 bone densi ty No observ ation record ed. [facility] [address] [facility] [place], [address], 03/28/2020 12:17:03 09/12/19 21 09/10/2020 cardi ac stres s test No observ [facility]ion record ed. [facility] [address], [place], [address], 09/12/2020 16:33:08 12/18/19 21 12/09/2020 pulmo nary funct ion test* No observ ation record ed. [facility] [address], [place], [address], 12/17/2020 15:14:10 01/03/20 21 01/02/2021 US, duple x, renal arter y No observ ation record ed. [facility] [address], [place], [address], 01/02/2021 14:47:22 01/03/20 21 01/02/2021 stres s echoc ardio gram No observ ation record ed. [facility] [address], [place], [address], 01/02/2021 14:47:41 11/28/19 24 11/25/2023 US, echoc ardio gram, trans esoph ageal No observ ation record ed. [facility] [employer] [facility] [address] [facility] [address], [place], [address], 12/08/2023 11:32:40 01/16/20 24 11/23/2023 CT, angio gram, chest , w/ contr ast No observ ation record ed. mmetias [address] [place], [address], 01/16/2024 15:25:06 Result Notes None recorded. Problems Name Problem SNOMED Code Status Onset Date Resolution Date Notes Provider Name and Address Organization Details Recorded Time Drug therapy finding 291906871 Active 2015 CHIO Niño, [place] - [facility] 0 11:49:27 Enzyme level - finding 123670870 Active 2017 CHIO Niño[place] [facility] 0 11:49:27 Fibromyalgia 695847367 Active 2011 Kallie Sloan [place] null, [place] [facility] 0 11:49:27 Hypertensive disorder 69324519 Active 2012 Kallie S[place] [facility] 0 11:49:27 Osteopenia 549503235 Active 2011 Kallie S[place] [facility] 0 11:49:27 Rheumatoid arthritis 21707667 Active 2017 Kallie S[place] [facility] 0 11:49:27 Problem Notes None recorded. Procedures Surgical History Date Name Laterality Status Provider Name and Address Organization Details Recorded Time hysterectomy completed Anabela Blanc [place] - [facility] 09/06/2019 12:01:29 Imaging Results Imaging Date Name Status LastModified by Organization Details LastModified Time 01/28/2020 XR, lumbar spine completed [place]ly [place] [address] [place], [address], 02/07/2020 17:22:18 02/19/2020 NM[facility] [address] [place], [address], 02/19/2020 17:52:46 03/25/[address] [facility] [address] [place], [address], 03/28/2020 12:17:03 09/10/2020 cardiac stress test completed [facility] [address], [place], [address], 09/12/2020 16:33:08 12/09/2020 pulmonary function test* completed [facility] [address], [place], [address], 12/17/2020 15:14:10 01/02/2021 US, duplex, renal artery completed [facility] [address], [place], [address], 01/02/2021 14:47:22 01/02/2021 stress echocardiogram completed [facility] [address], [place], [address], 01/02/2021 14:47:41 11/25/2023 US, echocardiogram, transesophageal completed [facility] [employer] [address] [facility] [place], [address], 12/08/2023 11:32:40 11/23/2023 CT, angiogram, chest, w/ contrast completed [facility] [address] [facility] [place], [address], 01/16/2024 15:25:06 Procedure Notes None recorded. Medical Equipment None Reported. Allergies Allergen ID Allergen Name Allergen Category Reaction Reaction Severity Criticality Documentation Date Start Date Code Code System Note Provider Name and Address Organization Details Recorded Time 612566 Substance with sulfonami de structure and antibacte rial mechanism of action (substanc e) medicatio n hives Not available Not available 09/06/2019 17773 8003 SNOMED Not Available Not Available Not Available 100972 Cipro medicatio n Not available Not available Not available 09/06/201916992 3 RxNorm Not Available Not Available Not Available [id number] ciproflox acin medicatio n myalgias (muscle pain) [...] DateTime 01/25/2020 157.48 cm Kallie Sloan MA [facility] 01/25/20 20 11:49:06 Date Recorded Body height Provider Name an d Address Organization Details Last Updated DateTime 01/30/2020 157.48 cm Anabela Blanc MA [facility] 01/30/2020 14:32:47 Date Recorded Body height Body mass index (BMI) Body weight Body temperature Oxygen saturation Oxygen saturation in Arterial blood by Pulse oximetry Heart rate Systolic blood pressure Diastolic blood pressure Provider Name and Address Organization Details Last Updated DateTime 0 157.48 cm 31.1 kg/m2 08867.7 g 98.1 [degF] 93 % 93 % 83 /min 108 mm[Hg] 82 mm[Hg] Anabela Blanc MA [facility] 0 10:40:52 Date Recorded Body height Body mass index (BMI) Body weight Body temperature Oxygen saturation Oxygen saturation in Arterial blood by Pulse oximetry Heart rate Systolic blood pressure Diastolic blood pressure Provider Name and Address Organization Details Last Updated DateTime 0 157.48 cm 31.3 kg/m2 63926 g 98 [degF] 98 % 98 % 80 /min 142 mm[Hg] 90 mm[Hg] Kallie Sloan MA [facility] 0 14:59:34 Social History Question Answer Notes LastModified by Organizat ion Details LastModified Time Tobacco Smoking Status Former Smoker 2012 Anabela Blanc MA null, [facility] 09/06/2019 12:01:14 In The 14 Days Before Symptom Onset, Have You Had Close Contact With A Laboratory-confir med COVID-19 While That Case Was Ill? No Information not available 11/26/2019 If Patient Spent Time In [facility] - Does The Patient Live In [facility]? No Information not available 11/26/2019 In The 14 Days Before Symptom Onset, Have You Had Close Contact With A Person Who Is Under Investigation For COVID-19 While That Person Was Ill? No Information not available 11/26/2019 In The 14 Days Before Symptom Onset, Did The Patient Spend Time In [facility]? No Information not available 11/26/2019 Have You [...] Eating Disorder N Anemia N Heart Attack (MS) N Anxiety Disorder Y Diabetes N Muscle, [...] SNOMED-CT Code Diagnosis ICD10 Code Diagnosis Note [id number] Anabela Blanc MA [facility] [address] [place] [address] 09/06/2019 11:41:44 09/07/2019 16:55:26 Chronic depression 748134392 F34.1 Long-term drug therapy 412152024 Z79.899 Essential hypertension 52429435 I10 [id number] Jam Ledezma PA-C [facility] [address] [place] [address] 09/13/2019 11:39:42 09/13/2019 12:10:30 Essential hypertension 09724438 I10 [id number] Jam Ledezma PA-C [facility] [address] [place] [address] 11/26/2019 10:49:30 11/26/2019 12:28:39 Essential hypertension 83236499 I10 Mitral valve prolapse 40 8304452 I34.1 History of transient ischemic attack 354137987 Z86.73 Seasonal a llergic rhinitis 227048505 J30.2 [id number] Jam Ledezma PA-C [facility] [address] [place] [address] 12/10/2019 10:48:06 12/12/2019 11:23:50 Essential hypertension 97567729 I10 Chronic depression 45787 0009 F34.1 Nausea and vomiting 1692 1999 R11.2 [id number] Jam Ledezma PA-C [facility] [address] [place] [address] 12/11/2019 13:09:52 12/12/2019 11:45:12 Mixed hyperlipidemia 402960793 E78.2 [id number] Jam Ledezma PA-C [facility] [address] [place] [address] 12/27/2019 11:02:54 12/28/2019 08:34:57 Idiopathic hypercalcemia 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 Seasonal a llergic rhinitis 629532553 J30.2 [id number] Jam Ledezma PA-C [facility] [address] [place] [address] 01/25/2020 10:10:00 01/28/2020 08:04:28 Lumbar radiculopathy 642476573 M54.16 [id number] KELLEN Liao [facility] [address] [place] [address] 01/30/2020 11:07:31 01/31/2020 07:58:24 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 Stress fra cture of tibia 096293730 M84.361A Osteoporosis 30010454 M8 1.0 [id number] Anabela Blanc MA [facility] [address] [place] [address] 02/11/2020 10:34:29 02/11/2020 15:10:24 Pain in right lower limb 377458938 M79.604 Long-term drug therapy 846064702 Z79.173 [id number] Jam Ledezma PA-C [facility] [address] [place] [address] 02/20/2020 14:44:57 02/20/2020 15:38:07 Pathological fracture of right tibia 9076697848 3172752 M84.461G Complaining of a rash 16 7406469 R21 [id number] Jam Ledezma PA-C [facility] [address] [place] [address] 04/22/2020 09:33:20 04/23/2020 12:40:11 Osteopenia 070128501 M85.88 Pathologic al fracture of right tibia 2189330796 5364220 M84.461G Health Concerns Section Related Observation LastModified by Organization Detai ls LastModified Time None Recorded Concern Status LastModified by Organization Details LastModified Time None Recorded Advance Directives Directive None Recorded Payers Encounter Date Sequence Insurance Name Policy Number Policy Bright Covered Member ID Bright Member ID Guarantor Name 01/25/2020 1 [facility] PRIOR TO 02/26/2021 (MEDICAID REPLACEMENT - HMO) Antoinette Da Silva [id number] Antoinette Da Silva 01/30/2020 1 [facility] PRIOR TO 02/26/2021 (MEDICAID REPLACEMENT - HMO) Antoinette Da Silva [id number] Antoinette Da Silva 02/11/2020 1 [facility] PRIOR TO 02/26/2021 (MEDICAID REPLACEMENT - HMO) Antoinette Da Silva [id number] Antoinette Da Silva 02/20/2020 1 [facility] PRIOR TO 02/26/2021 (MEDICAID REPLACEMENT - HMO) Antoinette Da Silva [id number] Antoinette Da Silva 04/22/2020 1 [facility] PRIOR TO 02/26/2021 (MEDICAID REPLACEMENT - HMO) Antoinette Da Silva [id number] Antoinette Da Silva Notes Date Note Type [...] osteoporosis Jam Ledezma PA-C Attn: Accounting[address] [place], [address], [facility] 01/25/2020 12:05:40 01/30/2020 text/html questions re bpressure...162/106 [...] osteoporosis... Jam Ledezma PA-C Attn: Accounting[address] [place], [address], [facility] 01/30/2020 15:08:21 02/11/2020 text/html started january 17..pain in medial lower rt leg..no known injury. went to ER xrays were done. findings of an old healed fracture that the patient denies ever having broken. pain has not improved may have worsened. Anabela Blanc MA [facility], [facility] 02/11/2020 11:25:00 02/20/2020 text/html bone scan reviewed..rib with uptake and rt tib fib with intense uptake they say likely posttraumatic but she denies injury. now skin on forearms are red and that is pruritic not painful Jam Ledezma PA-C Attn: Accounting[address] [place], [address], [facility] 02/20/2020 15:32:42 04/22/2020 text/html follow up on leg fractures that dont belong... Jam Ledezma PA-C Attn: Accounting[address] [facility], [place], [address], [facility] 04/22/2020 17:56:09 OBGyn Episode No OBEpisode recorded.
--- OUTSIDE RECORDS SUMMARY | 2024-10-11 00:25 | XMS_ITS | Encounter Summary ---
Author Organization [facility] Healthcare Address [address] [place] [address] Care Team Providers Care Ceramic Saw Tender Name Role Phone Yg Lee MD Primary Care Provider + Mitchell Zamarripa MD Unavailable [phone] Brit More NP Unavailable [phone] Cliff Ronquillo NP Unavailable [phone] Dick Aguilar Unavailable [phone] Gavin Sewell MD Unavailable [phone] Encounter Details Date Type Department Care Team (Late st Contact Info) Description 12/14/2021 Telephone [facility] [address] [place] [address] Fariha Hampton, RT Social History Tobacco Use Types Packs/Day Years Used Date Smoking Tobacco: Former Smokeless Tobacco: Never Alcohol Use Standard Drinks/Week Comments Yes 0 (1 standard drink = 0.6 oz pur e alcohol) occasional Comments No Sex and Gender Information Value Date Recorded Sex Assigned at Not on file Legal Sex Female 11:50 PM RAIL CAR OPERATOR Gender Identity Not on file Sexual [...] COVID: Suspected 07/22/2024 07/22/2024 07/22/2024 9:25 AM RAIL CAR OPERATOR documented as of this encounter Care Teams Ceramic Saw Tender Relationship Specialty Start Date End Date Yg Lee MD [address] [place] [phone] PCP - General Internal Medicine 08/19/20 Mitchell Zamarripa MD [address] [place] [address] Referring Physician Rheumatology 03/11/22 Brit More NP [address] [place] [address] Nurse Practitioner Cardiovascular Disease 03/11/22 Cliff Ronquillo NP [address] [place] [address] Nurse Practitioner Nurse Practitioner 05/05/22 Dick Aguilar PA [address] [place] [address] Physician Senior Sharepoint Developer Orthopedic Surgery 11/11/22 Gavin Sewell MD [address] [place] [address] Surgeon Orthopedic Surgery 12/24/22 documented as of this encounter
--- OUTSIDE RECORDS SUMMARY | 2024-10-11 00:25 | XMS_ITS | Clinical Summary ---
Author Organization [facility] [employer] Address [address] [place] [address] Care Team Providers Care Cut Off Tender Glass Name Role Phone Shandra Ruffin Malcolm WISDOM-TERRITORY MANAGER GENERAL SALES Primary Care Provider Source Comments [facility] [employer],non-owned Affiliates and Associated Physician Practices is amultiple site organization consisting of ambulatory clinics and hospital sitesin [place], [place], [place] and [place]. This disclosure is being madepursuant to the Care Everywhere program and may not contain all information available regarding this patient. Last updated 18.[facility] [employer] Allergies Active Allergy Reactions Criticality Noted Date [...] LURIA, FLUZONE TRIVALENT; 6MO+) (IIV3) 06/16/2016,06/11/2015,06/01/2014,2012,06/14/2012,06/01/2011 Covid Baru Exchange primary monoval ent 12+ yr 0.3mL Purple [...] Comments COMPREHENSIVE METABOLIC PANEL 08/31/2022 9:26 AM BLADE OPERATOR from Last 3 Months or Most Recently Relevant to Health Maintenance Results * (ABNORMAL) COMPREHENSIVE METABOLIC PANEL (08/31/2022 9:26 AM BLADE OPERATOR) Glucose 105(H) 65 - 99 mg/dL [...] 29 U/L [facility] Comment: Test Performed at: [facility] [address] [place] [address] LUISA LAWRENCE DO,MPH 08/31/2022 9:26 AM BLADE OPERATOR 08/31/2022 9:27 AM BLADE OPERATOR Mitchell Zamarripa MD LAB - CHEMISTRY INGRID DE [facility] [address] [place] [address] from Last 3 Months or Most Recently Relevant to Health Maintenance Advance Directives * FULL RESUSCITATION (Latest Code Status on File) Date Activated Date Inactivated Comments 11/08/2011 12:50 PM 11/10/2011 12:21 AM Care Teams Cut Off Tender Glass Relationship Specialty Start Date End Date Shandra Ruffin, C2 TACTICAL ANALYSIS TECHNICIAN-TERRITORY MANAGER GENERAL SALES [address] [place] [phone] PCP - General 04/02/22
--- OUTSIDE RECORDS SUMMARY | 2024-10-11 00:25 | XMS_ITS | Clinical Summary ---
Author Organization [facility] Address [address] [place] [address] Phone Care Team Providers Care Doughnut Machine Operator Name Role Phone JAM MCDONNELL PA-C Primary Care Provider [phone] Reason for Visit and Chief Complaint HEART [...] Diagnosis HEART CENTER FOLLOW UP TIFFANY HOWARD [facility]- 3 1:47PM 2:40PM Insurance Includes: Active Insurance Policies Plan Name Member ID Group # Subscriber Relationship Effect cyn Dates 1 - [employer] MEDIC[employer] ADVANTAGE [id number] NIGHAT DELANEY Self Clinical Notes Includes: Clinical Notes from this encounter No Clinical Notes Recorded
--- OUTSIDE RECORDS SUMMARY | 2024-10-11 00:26 | XMS_ITS | Encounter Summary ---
Author Organization [facility] Healthcare Address [address] [place] [address] Care Team Providers Care Patrol Police Sergeant Name Role Phone Jose Cruz Ledezma Primary Care Provider [phone] Yg Lee MD Primary Care Provider + Mitchell Zamarripa MD Unavailable [phone] Brit More UKRAINIAN FOLK ARTS INSTRUCTOR Unavailable [phone] Cliff Ronquillo NP Unavailable [phone] Dick Aguilar Unavailable [phone] Gavin Sewell MD Unavailable [phone] Reason for Visit * Reason Onset Date Comments Scheduling Appointments 03/24/2020 Called f or DEXA appointment reminder Encounter Details Date Type Department Care Team (Late st Contact Info) Description 03/24/2020 Telephone [facility] [address] [place] [address] Valencia Hernandez RT Scheduling Appointments (Called for DEXA appointment reminder) Social History Tobacco Use Types Packs/Day Years Used Date Smoking Tobacco: Former Smokeless Tobacco: Never Alcohol Use Standard Drinks/Week Comments Yes 0 (1 standard drink = 0.6 oz pur e alcohol) occasional Comments No Sex and Gender Information Value Date Recorded Sex Assigned at Not on file Legal Sex Female 11:50 PM ROLLER MILL TENDER Gender Identity Not on file Sexual Orientation [...] COVID: Suspected 07/22/2024 07/22/2024 07/22/2024 9:25 AM ROLLER MILL TENDER documented as of this encounter Care Teams Patrol Police Sergeant Relationship Specialty Start Date End Date Jose Cruz Ledezma PA [address] [place] [address] PCP - General 01/24/20 08/18/20 Yg Lee MD [address] [place] [phone] PCP - General Internal Medicine 08/19/20 Mitchell Zamarripa MD [address] [place] [address] Referring Physician Rheumatology 03/11/22 Brit More NP [address] [place] [address] Nurse Practitioner Cardiovascular Disease 03/11/22 Cliff Ronquillo NP [address] [place] [address] [address] [place] [address] Nurse Practitioner Nurse Practitioner 05/05/22 Dick Aguilar PA [address] [place] [address] [address] [place] [address] Physician Adjunct Latin Professor Orthopedic Surgery 11/11/22 Gavin Sewell MD [address] [place] [address] Surgeon Orthopedic Surgery 12/24/22 documented as of this encounter
--- OUTSIDE RECORDS SUMMARY | 2024-10-11 00:26 | XMS_ITS | Encounter Summary ---
Author Organization [facility] Address [address] [place] [address] Care Team Providers Care Product Support Manager Name Role Phone Yg Lee MD Primary Care Provider [phone] Shandra Ruffin APRN-[facility] Primary Care Provider Yg Lee MD Primary Care Provider [phone] Shandra Ruffin APRN-[facility] Primary Care Provider Yg Lee MD Primary Care Provider [phone] Shandra Ruffin APRN-[facility] Primary Care Provider Encounter Details Date Type Department Care Team (Late st Contact Info) Description 05/18/2019 Telephone [facility] [address] [place] [address] Mitchell Zamarripa MD [address] [place] [address] [place] [address] Social History Tobacco Use Types [...] a call. [place] Patient Call Back number: [phone]. documented in this encounter Plan of Treatment Not on file documented as of this encounter Visit Diagnoses Not on filedocumented in this encounter Care Teams Product Support Manager Relationship Specialty Start Date End Date Yg Lee MD [address] [place] [phone] PCP - General 10/28/11 05/23/19 Shandra Ruffin APRN-NUCLEAR PROCESS ENGINEER [address] [place], [place] [phone] PCP - General 05/24/19 07/20/20 Yg Lee MD [address] [place], [place] [phone] PCP - General Internal Medicine 07/21/20 07/21/20 Shandra Ruffin APRN-NUCLEAR PROCESS ENGINEER [address] [place], [place] [phone] PCP - General 07/22/20 11/15/21 Yg Lee MD [address] [place] [phone] PCP - General Internal Medicine 11/16/21 04/01/22 Shandra Ruffin APRN-NUCLEAR PROCESS ENGINEER [address] [place], [place] [phone] PCP - General 04/02/22 documented as of this encounter
--- OUTSIDE RECORDS SUMMARY | 2024-10-11 00:26 | XMS_ITS | Clinical Summary ---
Author Organization [facility] Address [address] [place] [address] Phone Care Team Providers Care Assistant Softball Coach Name Role Phone JAM MCDONNELL PA-C Primary Care Provider [phone] Reason for Visit and Chief Complaint LEXISCAN [...] Time Diagnosis LEXISCAN CARDIOLITE ELTON GROVER MD [facility] 08/02/20 23 9:30AM 11:24AM Insurance Includes: Active Insurance Policies Plan Name Member ID Group # Subscriber Relationship Effect cyn Dates 1 - [employer] MED[employer] ADVANTAGE [id number] NIGHAT DELANEY Self Clinical Notes Includes: Clinical Notes from this encounter No Clinical Notes Recorded
--- OUTSIDE RECORDS SUMMARY | 2024-10-11 00:26 | XMS_ITS | Clinical Summary ---
Author Organization [facility] Address [address] [place] [address] Phone Care Team Providers Care Body Shop Supervisor Name Role Phone JAM MCDONNELL PA-C Primary Care Provider [phone] Reason for Visit and Chief Complaint ECHOCARDIOGRAM [...] Check-Out Time Diagnosis ECHOCARDIOGRAM ELTON GROVER MD [facility] 08/02/20 23 8:35AM 9:29AM Insurance Includes: Active Insurance Policies Plan Name Member ID Group # Subscriber Relationship Effect cyn Dates 1 - [place] CROSS MEDICARE ADVANTAGE [id number] NIGHAT DELANEY Self Clinical Notes Includes: Clinical Notes from this encounter No Clinical Notes Recorded
[2024-10-11] MEDS: LACTATED RINGERS 1,000 ML 30 ML IV CONT ×3 (06:45→11:50)
[2024-10-11] MEDS: KETOROLAC 15 MG/ML VIAL (*BKC) IV PUSH (08:04)
[2024-10-11] MEDS: ACETAMINOPHEN 500 MG TABLET 1000 MG PO (08:04)
--- NOTE | 2024-10-11 08:55 | WPDHPUPDATE1 ---
History and Physical Update Update Date/Time: 10/11/24 08:55 History and Physical has been reviewed, including an updated exam of the patient. There are NO changes in the patient's condition. Risks, benefits, and alternatives have been discussed and questions answered. Patient agrees to proceed with procedure.
--- NOTE | 2024-10-11 08:58 | P.PNAN_ITS ---
Anes - Initial Pre Proc Eval Procedure: Operation Date: 10/11/24 09:00 Proposed Procedures p Open Reduction Internal Fixation Right Wrist - Efren Rendon MD Date/Time: 10/11/24 08:58 Surgeon: Efren Rendon MD Pre Op Diagnosis: right wrist fx Patient Data Age: 64 Gender: F Height: 1.55 m Weight: 68.3 kg Last Vital Signs Temp 36.5 C 10/11/24 08:21 Pulse 99 10/11/24 08:21 Resp 16 10/11/24 08:21 BP 152/89 H 10/11/24 08:21 Pulse Ox 97 10/11/24 08:21 O2 Del Method Room Air 10/11/24 08:21 Allergies Allergy/AdvReac Type Severity Reaction Status Date / Time Sulfa (Sulfonamide Allergy Severe Hives Verified 10/11/24 08:05 Antibiotics) ciprofloxacin (From Cipro) Allergy Intermediate Other Verified 10/11/24 08:05 Home Medications ?Medication ?Instructions ?Recorded ?Confirmed ?Type alprazolam 0.25 mg tablet 0.25 mg PO QID PRN anxiety 10/04/24 10/11/24 History apixaban 5 mg tablet (Eliquis) 5 mg PO DAILY 10/04/24 10/08/24 History carvedilol 25 mg tablet 25 mg PO Q12H 10/04/24 10/11/24 History celecoxib 200 mg capsule 200 mg PO BID 10/04/24 10/11/24 History digoxin 125 mcg (0.125 mg) tablet 0.125 mg PO DAILY 10/04/24 10/11/24 History diltiazem HCl 240 mg 240 mg PO DAILY 10/04/24 10/11/24 History capsule,extended release 24 hr, controlled (DILT-XR) duloxetine 60 mg capsule,delayed 60 mg PO DAILY 10/04/24 10/11/24 History release ezetimibe 10 mg tablet 10 mg PO DAILY 10/04/24 10/11/24 History isosorbide mononitrate 60 mg 60 mg PO DAILY 10/04/24 10/11/24 History tablet,extended release 24 hr levothyroxine 100 mcg tablet 100 mcg PO DAILY 10/04/24 10/11/24 History losartan 100 1 tablet PO DAILY 10/04/24 10/11/24 History mg-hydrochlorothiazide 25 mg tablet metoclopramide HCl 10 mg tablet 10 mg PO BID PRN nausea and 10/04/24 10/11/24 History vomiting omeprazole 40 mg capsule,delayed 40 mg PO DAILY 10/04/24 10/11/24 History release potassium chloride 10 mEq 10 meq PO DAILY 10/04/24 10/08/24 History tablet,extended release rosuvastatin 5 mg tablet 5 mg PO DAILY 10/04/24 10/11/24 History oxycodone-acetaminophen 7.5 mg-325 1 tablet PO Q4H PRN pain #20 tabs 10/08/24 10/08/24 Rx mg tablet Patient hx anesthesia problems: none Family hx anesthesia problems: none Results Review: All pre-operative results and documents have been reviewed as part of the pre- operative evaluation. [facility] Past Medical History Medical History (Updated 10/11/24 @ 09:00 by Jose Cruz Mejia MD) SHIRA (obstructive sleep apnea) Rheumatoid arthritis HTN (hypertension) Surgical History Surgical History History of bladder surgery H/O: hysterectomy Social History Social History Smoking packs per day: 0.5 Smoking cigarettes per day: 10.0 Years smoked: 10 Smoking pack-years: 5.00 Smoking status: Former smoker Tobacco type: cigarettes Smoking end date: 10/05/19 Alcohol intake: current Living arrangements: with family Spiritual care concerns: No Anes - Eval Final PreProcedure Day of Procedure 10/11/24 08:58 Patient weight: overweight Heart: regular rate and rhythm Lungs: clear to auscultation Airway: Mallampati scale class II Neurological: alert and oriented Last oral intake: >/= 8 hours ASA classification: III Emergent: no Anesthetic plan: proceed Anesthesia type and monitoring: general LMA and standard monitoring Results Review: All pre-operative results and documents have been reviewed as part of the pre- operative evaluation. Informed Consent: The patient's anesthetic plan and its attendant risks and benefits were discussed with the patient/family/POA. Questions were solicited and answers provided to the satisfaction of the patient/family/POA.
[2024-10-11] MEDS: ceFAZolin 2 GM/D5W 50 ML 2 GM/50 ML BAG IVPB (09:46)
[2024-10-11] MEDS: BUPIVACAINE/EPINEPHRINE 0.5% 30 ML VIAL INFILTRATE (10:21)
--- NOTE | 2024-10-11 12:09 | P.OP_ITS ---
Procedure Note - Detailed Date of Procedure 10/11/24 Pre-op Diagnosis right wrist fx- Comminuted, intra-articular Distal radius and ulna shaft fracture Post-op Diagnosis Same Procedure Performed open reduction internal fixation distal radius fracture , comminuted, more than 3 fragments; ulnar shaft fracture. Surgeon Efren Rendon MD Alumni Secretary 1St information technology assistant Anesthesia General Indications 64-year-old woman who slipped and fell onto her right arm. She sustained distal radius fracture and ulnar fracture with displacement. Presents for operative treatment. Findings comminution of the distal radius fracture with intra-articular extension. Multiple fragments. Description of Procedure After informed consent the operative extremity was marked in the preoperative holding area. Patient received intravenous antibiotics. Patient taken to the operating room where they underwent general anesthesia. Positioned supine on operating table. Time-out performed confirming the patient, patient's site of surgery and the plan. Right upper extremity prepped and draped in the usual sterile surgical fashion using a ChloraPrep skin solution. Hand and wrist exsanguinated and arm tourniquet inflated to 225 mmHg. Standard volar flexor carpi radialis incision utilized. Fifteen blade knife used to make longitudinal incision. Flexor carpi radialis tendon identified tendon sheath incised in line with skin incision. Tendon retracted to protect the neurovascular elements. Floor of the tendon sheath incised with a 15 blade knife. Flexor pollicis retracted medial. pronator quadratus then divided off the watershed line and reflected ulnarward to expose the distal radius and the fracture. Fracture was then reduced provisionally pinned. Image intensification confirm reduction. Fixation achieved with the distal radius volar plate. This was provisionally pinned into place and confirmed with image intensification. Fixation to the proximal fragment with a 3.5 mm screw. Distal fracture fixation achieved with 2.0 mm locking pegs and 2.0 mm fully threaded locking screws for the radial styloid. Fixation was then completed proximally with the remaining 3.5 mm screws. Final reduction of the fracture, alignment of the wrist joint and placement of the hardware verified with image intensification. Wound thoroughly irrigated with antibiotic solution. Pronator repaired with 3 0 Monocryl interrupted suture. Skin closed with interrupted subcutaneous 000 Monocryl interrupted suture and running 000 Monocryl subcuticular stitch. We then addressed the ulna fracture. Longitudinal incision made with a 15 blade knife over the ulnar border of the ulna centered on the fracture. Hemostasis controlled with electrocautery. Fascia incised in line with skin incision. Musculature then elevated volarly off of the ulna to expose the fracture and the ulnar diaphysis. Fracture reduced and fixed with a 5 hole 1/3 tubular plate with 3.5 mm screws. Image intensification confirmed reduction and placement of the hardware. We carefully evaluated the distal radial ulnar joint under fluoroscopy. This was noted to be severely arthritic but was well reduced after fracture treatment. It was noted to be stable to stress in a full pronated and supinated position. Wound was then irrigated and fascia closed with 3 Monocryl interrupted suture. Subcutaneous tissue and skin closed with 3 Monocryl interrupted suture and running suture. Dermabond used over the skin. Local anesthetic with 0.5% Marcaine. Sterile dressing applied. Padded dressing and splint then applied. Tourniquet released and good capillary refill noted in the fingers and thumb. Patient awoke from anesthesia, extubated and taken to the recovery room in stable condition. All sponge and instrument counts correct at the end of case. Implants Biomet distal radius volar plate and 1/3 tubular plate for the ulna. Estimated Blood Loss 10 Tourniquet Time Total Tourniquet Time: 90 Drains No Packing No Pathology None sent Complications None Condition Stable Disposition PACU [facility] Billing Surgery - Charge Forward: Surgery Billing ([id number], [id number])
== END 2024-10-11 13:50 | disposition home or self-care (01) ==
PROVIDERS: PCP Internal Medicine; Visit Provider Orthopaedic Surgery
PROC: (CPT 25575; principal; 2024-10-11 09:00)
DX: S52.571A Other intraarticular fracture of lower end of right radius, initial encounter for closed fracture (principal); S52.291A Other fracture of shaft of right ulna, initial encounter for closed fracture; W01.0XXA Fall on same level from slipping, tripping and stumbling without subsequent striking against object, initial encounter; I10 Essential (primary) hypertension; G47.33 Obstructive sleep apnea (adult) (pediatric); M06.9 Rheumatoid arthritis, unspecified; Z79.01 Long term (current) use of anticoagulants; Z79.891 Long term (current) use of opiate analgesic; Z79.899 Other long term (current) drug therapy; Z98.890 Other specified postprocedural states; Z87.891 Personal history of nicotine dependence
CPT/HCPCS: 25609; 25545; 99199; A9270; C1713; J0690; J1100; J1171; J1885; J2003; J2250; J2405; J2704; J3010; J7120

== ENCOUNTER 2024-10-22 12:32 | Outpatient (CLI) | payer OTHER, SELFPAY ==
--- NOTE | ~2024-10-22 | XR_ITS ---
EXAM: XR wrist RT min 3V DATE: 10/22/2024 12:54 HISTORY: M25.531 - Pain in right wrist - follow up from surg. . COMPARISON: 10/08/2024; 10/11/2024. FINDINGS: Detail obscured by overlying cast material. Status post screw and plate fixation of the di stal ulnar fracture, with 5 mm medial displacement, 18 degrees medial angulation, and 6 degrees anter ior angulation. The head of the second proximal screw projects slightly proud of the plate. Screw and plate fixation of the distal radial fracture, with 4 mm anterior displacement and 15 degrees medial angulation. The proximal and of the radial plate is displaced slightly from the cortex. Widening of t he DRUJ. IMPRESSION: Interval alignment change of the fractures and fixation plates suggesting interval reinju ry. DRUJ widening. Reviewed, dictated and finalized at location K. RNEY LAW CLERK IMPRESSION: Interval alignment change of the fractures and fixation plates sugg esting interval reinjury. DRUJ widening.
--- OUTSIDE RECORDS SUMMARY | 2024-10-22 14:09 | XMS_ITS ---
Author Organization [facility] Address [address] [place] [address] Phone Care Team Providers Care Crusher Dry Ground Mica Name Role Phone JAM MCDONNELL PA-C Primary Care Provider [phone] Plan of Treatment No Plan of Treatment [...] On 07/08/2010 5:57PM By ALVIN BASS ; [facility] Premarin 1.25 MG OR TABS 09/02/2009 - 08/28/2010 Provi anastasia: Diagnosis: Last Documented On 11/11/2009 9:36AM By BONNIE MORALES ; [facility] Premarin 1.25 MG OR TABS 07/23/2008 - 07/18/2009 Provi anastasia: Diagnosis: Last Documented On 11/11/2009 9:37AM By BONNIE MORALES ; [facility] Amoxicillin 500 MG OR TABS 07/03/2007 - 07/13/2007 Pro vider: Diagnosis: Last Documented On 11/11/2009 9:38AM By BONNIE MORALES ; [facility] Premarin 1.25 MG OR TABS 07/05/2006 - 06/30/2007 Provi anastasia: Diagnosis: Last Documented On 11/11/2009 9:39AM By BONNIE MORALES ; [facility] Premarin 1.25 MG OR TABS 08/27/2005 - 07/23/2006 Provi anastasia: Diagnosis: Last Documented On 11/11/2009 9:40AM By BONNIE MORALES ; [facility] Medications Administered Includes: Administered Medications in patient's chart No Administered Medications Recorded Results Includes: Results from 10/22/2023 through 10/22/2024 No Results Recorded For Specified Dates History of Present Illness History of Present Illness not supported for this document type No History of Present Illness Recorded Social History Description Last Updated 11/11/2009 Last Documented On 0 9:43AM ; [facility] Exercise frequency was three times/week 11/11/2009 Last Documented On 0 9:43AM ; [facility] Exercising regularly 11/11/2009 Last Documented On 0 9:43AM ; [facility] Sexually active 11/11/2009 Last Documented On 0 9:43AM ; [facility] Sexually active with 1 partners in the l ast year 11/11/2009 Last Documented On 0 9:43AM ; [facility] Smoking Status Unknown Procedures and Surgical History Includes: Procedures from 10/22/2023 through 10/22/2024 Procedures Code Diagnosis Performing Provider Service Location Service Date CLINIC FACILITY FEE (Signi/Sep Eval & Man) G0463 Nonrheumatic mitral (valve) insufficiency, Paroxysmal atrial fibrillation, Obstructive sleep apnea (adult) (pediatric), Essential (primary) hypertension [facility] 12/13/2023 Last Documented On 4 2:24PM ; [facility] CLINIC FACILITY FEE (Signi/Sep Eval & Man) 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, Sleep apnea, unspecified, Supraventricular tachycardia, unspecified [facility] 11/14/2023 Last Documented On 4 12:05PM ; [facility] Medical History Includes: Medical History in patient's chart Description Last Updated HYSTERECTOMY ~BTL 11/11/2009 Last Documented On 0 9:43AM ; [facility] 2 living children 11/11/2009 Last Documented On 0 9:43AM ; [facility] A mammogram was performed 11/11/2009 Last Documented On 0 9:43AM ; [facility] A Pap smear was performed 11/11/2009 Last Documented On 0 9:43AM ; [facility] weight: was 7.4 lbs 11/11/2009 Last Documented On 0 9:43AM ; [facility] Breast problems 11/11/2009 Last Documented On 0 9:43AM ; [facility] Delivery date 1983 11/11/2009 Last Documented On 0 9:43AM ; [facility] Duration of labor: was six hr 11/11/2009 Last Documented On 0 9:43AM ; [facility] Gestational age: was 40 weeks 11/11/2009 Last Documented On 0 9:43AM ; [facility] 2 11/11/2009 Last Documented On 0 9:43AM ; [facility] History of the 2nd : 11/11/2009 Last Documented On 0 9:43AM ; [facility] Last mammogram date: 07/19/08 11/11/2009 Last Documented On 0 9:43AM ; [facility] Last pap smear date 200711/11/2009 Last Documented On 0 9:43AM ; [facility] Oral contraceptives 11/11/2009 Last Documented On 0 9:43AM ; [facility] Status post tubal ligation 11/11/2009 Last Documented On 0 9:43AM ; [facility] Family History Includes: Family History in patient's chart Description Last Updated Family history of Cancer 11/11/2009 Last Documented On 0 9:43AM ; [facility] Family history of thyroid disease 2009 Last Documented On 0 9:43AM ; [facility] Family medical history of high blood pre ssure 11/11/2009 Last Documented On 0 9:43AM ; [facility] Review of Systems Review of Systems not supported for this document type No Review of Systems Recorded Mental Status No Mental Status Recorded Functional Status No Functional Status Recorded Physical Exam Physical Exam not supported for this document type No Physical Exam Recorded Allergies Includes: Active, inactive, and resolved Allergies No Known Allergies Encounters Includes: Encounters from 10/22/2023 through 10/22/2024 Encounter Provider Location Date Check-In Time Check- Out Time Diagnosis HOSPITAL FOLLOW UP EXAM TIFFANY SAUCEDO ANP [facility]- 4 12:43PM 1:47PM HEART CENTER CHECK UP TIFFANY HOWARD [facility]- 4 10:58AM 11:28AM Insurance Includes: Active Insurance Policies Plan Name Member ID Group # Subscriber Relationship Effect cyn Dates 1 - [employer] [id number] NIGHAT Guevara Clinical Notes Includes: Signed Clinical Notes starting from 09/17/2022 No Clinical Notes Recorded
--- OUTSIDE RECORDS SUMMARY | 2024-10-22 14:09 | XMS_ITS | Clinical Summary ---
Author Organization [facility] Address [address] [place] [address] Phone Care Team Providers Care Automatic Edger Name Role Phone AJM MCDONNELL PA-C Primary Care Provider [phone] Reason for Visit and Chief Complaint HEART [...] apnea, unspecified, Supraventricular tachycardia, unspecified [facility] 11/14/2023 Last Documented On 4 12:05PM ; [facility] Medical History Includes: Medical History [...] Diagnosis HEART CENTER CHECK UP TIFFANY HOWARD [facility] 4 10:58AM 11:28AM Insurance Includes: Active Insurance Policies Plan Name Member ID Group # Subscriber Relationship Effect cyn Dates 1 - [employer]AGE [id number] NIGHAT DELANEY Self Clinical Notes Includes: Clinical Notes from this encounter No Clinical Notes Recorded
--- OUTSIDE RECORDS SUMMARY | 2024-10-22 14:09 | XMS_ITS | Encounter Summary ---
Author Organization [facility] Address [address] [place] [address] Care Team Providers Care Business Analyst Manager Name Role Phone Yg Lee MD Primary Care Provider + Mitchell Zamarripa MD Unavailable [phone] Brit More NP Unavailable [phone] Cliff Ronquillo NP Unavailable [phone] Dick Aguilar Unavailable [phone] Gavin Sewell MD Unavailable [phone] Encounter Details Date Type Department Care Team (Late st Contact Info) Description 12/14/2021 Telephone [facility] [address] [place] [address] Fariha Hampton, RT Social History Tobacco Use Types Packs/Day Years Used Date Smoking Tobacco: Former Smokeless Tobacco: Never Alcohol Use Standard Drinks/Week Comments Yes 0 (1 standard drink = 0.6 oz pur e alcohol) occasional Comments No Sex and Gender Information Value Date Recorded Sex Assigned at Not on file Legal Sex Female 11:50 PM [employer] H[employer] SORTER Gender Identity Not on file Sexual Orientation [...] COVID: Suspected 07/22/2024 07/22/2024 07/22/2024 9:25 AM [employer] H[employer] SORTER documented as of this encounter Care Teams Business Analyst Manager Relationship Specialty Start Date End Date Yg Lee MD [address] [place] [phone] PCP - General Internal Medicine 08/19/20 Mitchell Zamarripa MD [address] [place] [address] Referring Physician Rheumatology 03/11/22 Brit More NP [address] [place] [address] Nurse Practitioner Cardiovascular Disease 03/11/22 Cliff Ronquillo NP [address] [place] [address] Nurse Practitioner Nurse Practitioner 05/05/22 Dick Aguilar PA [address] [facility] [place] [address] Physician Machine Room Engineer Orthopedic Surgery 11/11/22 Gavin Sewell MD [address] [facility] [place] [address] Surgeon Orthopedic Surgery 12/24/22 documented as of this encounter
--- OUTSIDE RECORDS SUMMARY | 2024-10-22 14:09 | XMS_ITS | Clinical Summary ---
Author Organization [facility] Address [address] [place] [address] Care Team Providers Care Revenue Collector Name Role Phone Yg Lee MD Primary Care Provider [phone] Allergies Active Allergy Reactions Criticality Noted Date [...] (Dexilant) 60 mg Delayed Release capsule Lot: [id number] Ex: 10/21 Qty: 8 5 Capsule Active [...] on 04/05/2024 fluticasone propionate (FLONASE) 50 mcg/spray [place], Suspension nasal inhaler USE 1 OR 2 [...] tablets by mouth daily 180 Tablet 3 Active apixaban (ELIQUIS) 5 mg tablet Take 5 [...] by mouth every 12 hours. 20 Tablet 024 Active apixaban (ELIQUIS) 5 mg tablet Lot: [id number] ex: 05/2025 qty: 8 14 Tablet Active [...] MOUTH DAILY 90 Tablet 3 025 Active omeprazole (PriLOSEC) 40 mg Capsule, Delayed Release(E.C.)Adore cations:Gastroeso phageal reflux disease without esophagitis TAKE 1 CAPSULE(40 MG) BY MOUTH DAILY 90 Capsule 3 025 Active omeprazole (PriLOSEC) 40 mg Capsule, Delayed Release(E.C.)Adore cations:Gastroeso phageal reflux disease without esophagitis TAKE 1 CAPSULE(40 MG) BY MOUTH DAILY 90 Capsule 3 024 2024 Discontinued Active Problems Patient Care Coordination No te Formatting of this note migh t be different from the original. [facility] [id number] 09/01/22 Problem Noted Date Diagnosed Date Pulmonary [...] Encounters Date Type Department Care Team Description 10/17/2024 External Device Data [facility] Provider, Abstract 10/15/[address] [place] [address] [place] [address] Yg Lee MD Gastroesophageal reflux disease without esophagitis 10/12/[address] [place] [address] [place] [address] Provider, Abstract 10/05/[address] [place] [address] Yg Lee MD Needs Appointment 09/20/2024 External Device Data [facility] Provider, Abstract 09/19/[address] [place] [address] Yg Lee MD Essential hypertension, benign 09/11/2024 External Device Data [facility] Provider, Abstract 08/21/2024 [place] [address] [place] [address] Provider, Abstract 08/16/2024 [place] [address] [place] [address] Yg Lee MD Other specified anxiety disorders 08/15/2024 [place] [address] [place] [address] Yg Lee MD Provider Call 08/01/2024 Telephone [facility] [address] [place] [address] Yg Lee MD Referral 07/31/2024 Telephone [facility] [address] [place] [address] Yg Lee MD Results 07/31/2024 Orders Only [facility] [address] [place] [address] Gisselle Bell Hepatomegaly 07/24/[address] [place] [address] Yg Lee MD Provider Call from Last 3 Months Immunizations Immunization Administration Dates Next Due (ADACEL/BOOSTRIX)(10 YR UP) TDAP VACCINE, 0.5ML, IM 06/15/2011 (PFIZER)(12 YR UP) COVID-19 VACCINE - EMERGENCY USE AUTHORIZATION, MRNA, [id number](PF) 30 MCG/0.3 ML IM SUSP 04/22/2021,04/01/2021 (PNEUMOVAX 23)(50 YRS UP) PN EUMOCOCCAL POLYSACCHARIDE (PPV23) 0.5 ML, IM 07/18/2017,06/15/2011 (PREVNAR 13)(6 WKS UP) PNEUM OCOCCAL CONJUGATE (PCV13) 0.5 ML, IM 10/20/2020 (PREVNAR 20)(6 WKS UP) PNEUM OCOCCAL CONJUGATE VACCINE 20-VALENT (PCV20), POLYSACCHARIDE [id number] CONJUGATE, ADJUVANT 0.5 ML (PF) IM 02/23/2023 [...] on file Legal Sex Female 6:04 AM CORPORATE QUALITY ENGINEER Gender Identity Not on file Sexual [...] history exists Medical Devices Implanted Type Area Auto Wrecker Device Identifier Shelf Expiration Date Model / Serial / Lot Stent Pncrtc Frmn Flx 5fr 5cm 6552 - [id number] Implanted:Qty: 1 on 02/24/2018 by John White MD at [facility] Stent N/A: Pancreas [facility] [id number] 09/29/2022 [id number] / / [id number] Procedures Procedure Name Priority Date/Time Associated [...] Modality Abdomen Other us Yg Lee MD ORDERABLES Final Result * HEMOGLOBIN A1C (06/15/2024 9:16 AM CDT) HEMOGLOBIN A1C 5.2 <5.7 % of total Hgb [facility] Comment: For the purpose of screening for the presence of diabetes: <5.7% Consistent with the absence of diabetes 5.7-6.4% Consistent with increased risk for diabetes (prediabetes) > or =6.5% Consistent with diabetes This assay result is consistent with a decreased risk of diabetes. Currently, no consensus exists regarding use of hemoglobin A1c for diagnosis of diabetes in children. According to [place] Diabetes Association (ADA) guidelines, hemoglobin A1c <7.0% represents optimal control in non- diabetic patients. Different metrics may apply to specific patient populations. Standards of Medical Care in Diabetes(ADA). ESTIMATED AVERAGE GLUCOSE (MG/DL) 103 mg/dL [employer]ene[facility] Santana ESTIMATED AVERAGE GLUCOSE (MMOL/L) 5.7 mmol/L [employer] Santana Comment: FASTING:YES FASTING: YES Test [facility]formed at: [facility] [id number] [place] [address] Ceferino Dasilva Vo Blood 06/15/2024 9:16 AM CDT 06/15/2024 9:17 AM CDT us Yg Lee MD CHEMISTRY ORDERABLES Final Re sult [facility] [phone] [place] [id number] [place] [address] * MAMMO 3D KIRILL SCREEN BILAT W [...] the interpretation of this examination. Procedure Note gY Crow MD - 05/16/2024 EXAMINATION: BILATERAL SCREENING [...] CATEGORY 1 - Negative. DICTATION LOCATION: Ruth Rahmanerson Yg Lee MD MAMMO ORDERABLES Final Result from Last 3 Months or Most Recently Relevant to Health Maintenance Insurance RX [employer] RX Member Subscriber Plan / Payer (Ef fective 2020-Present) Name:Antoinette Da Silva Relation to Subscriber:Self Name:Antoinette Da Silva Payer ID:Not on file Type:RX Commercial Address: [address] [place] MEDICARE Advance Directives For more information, please contact: [phone] Documents on File Type Date Recorded Patient Machine Designer Expl anation Advance Directive Living Will 10/20/2020 [...] 12:41 PM 10/31/2015 7:49 PM Care Teams Revenue Collector Relationship Specialty Start Date End Date Yg Lee MD PCP - General Internal Medicine 12/20/18
--- OUTSIDE RECORDS SUMMARY | 2024-10-22 14:09 | XMS_ITS | Clinical Summary ---
Author Organization [facility] Address [address] [place] [address] Care Team Providers Care Director Of Corporate Real Estate Name Role Phone Shandra Ruffin Malcolm WISDOM-BENCH MOLDER Primary Care Provider Source Comments [facility],non-owned Affiliates and Associated Physician Practices is amultiple site organization consisting of ambulatory clinics and hospital sitesin [place], [place], [place] and [place]. This disclosure is being madepursuant to the Care Everywhere program and may not contain all information available regarding this patient. Last updated 18.[facility] Allergies Active Allergy Reactions Criticality Noted Date [...] LURIA, FLUZONE TRIVALENT; 6MO+) (IIV3) 06/16/2016,06/11/2015,06/01/2014,2012,06/14/2012,06/01/2011 Covid Arcamed primary monoval ent 12+ yr 0.3mL Purple [...] Comments COMPREHENSIVE METABOLIC PANEL 08/31/2022 9:26 AM DISTRIBUTION DRIVER from Last 3 Months or Most Recently Relevant to Health Maintenance Results * (ABNORMAL) COMPREHENSIVE METABOLIC PANEL (08/31/2022 9:26 AM DISTRIBUTION DRIVER) Glucose 105(H) 65 - 99 mg/dL [facility] [...] 29 U/L [facility] Comment: Test Performed at: [facility] [address] [place] [address] LUISA LAWRENCE DO,MPH 08/31/2022 9:26 AM DISTRIBUTION DRIVER 08/31/2022 9:27 AM DISTRIBUTION DRIVER Mitchell Zamarripa MD LAB - CHEMISTRY INGRID DE [facility] [address] [place] [address] from Last 3 Months or Most Recently Relevant to Health Maintenance Advance Directives * FULL RESUSCITATION (Latest Code Status on File) Date Activated Date Inactivated Comments 11/08/2011 12:50 PM 11/10/2011 12:21 AM Care Teams Director Of Corporate Real Estate Relationship Specialty Start Date End Date Shandra Ruffin, CARDIOLOGY CONSULTANT-BENCH MOLDER [address] [place] [id number] PCP - General 04/02/22
--- OUTSIDE RECORDS SUMMARY | 2024-10-22 14:09 | XMS_ITS | Patient Health Summary ---
Author Organization [facility] Address [address] [facility] [place] [address] Care Team Providers Care Caustic Cresylate Shift Superintendent Name Role Phone Shandra Ruffin Malcolm WISDOM-PROSTHETIC LAB TECHNICIAN Primary Care Provider Note from [facility],non-owned Affiliates and Associated Physician Practices is amultiple site organization consisting of ambulatory clinics and hospital sitesin [place], [place], [place] and [place]. This disclosure is being madepursuant to the Care Everywhere program and may not contain all information available regarding this patient. Last updated 18.[facility] Allergies * Ciprofloxacin(Other,Myalgias) -Medium Criticality * Citrullus [...] 06/11/2015, 06/01/2014, 07/28/2013, 06/14/2012, 06/01/2011) * Covid Adform primary monovalent 12+ yr 0.3mL Purple cap(Given [...] * CENTROMERE B ANTIBODIES(Performed 03/31/2021) * MONTIEL (SM)+LEAD ARCHITECT ANTIBODY PANEL(Performed 03/31/2021) * MARTHA-1 ANTIBODY(Performed 03/31/2021) [...] for Arthritis, Myalgia, Hx of psoriasis * LEAD ARCHITECT ANTIBODY(Performed 05/24/2019) Performed for Arthritis, Myalgia, Hx [...] * (ABNORMAL) C-REACTIVE PROTEIN (08/31/2022 9:26 AM POULTRY HUSBANDRY WORKER) Only the most recent of6 resultswithin the time period is included. Pathologist [facility] C-Reactive Protein 27.6(H) <8.0 mg/L [facility] Comment: REPORT COMMENT: FASTING:YES Test Performed at: [employer], [facility] EHR [address] LUISA LAWRENCE DO,MPH 08/31/2022 9:26 AM POULTRY HUSBANDRY WORKER 08/31/2022 9:27 AM POULTRY HUSBANDRY WORKER Mitchell Zamarripa MD LAB - CHEMISTRY INGRID DE GUZMAN [facility] [address] [place] [address] * ERYTHROCYTE SEDIMENTATION RATE (08/31/2022 9:26 AM POULTRY HUSBANDRY WORKER) Only the most recent of6 resultswithin the time period is included. Pathologist [facility] Erythrocyte Sedimentation Rate Westergren 25 < OR = 30 mm/h [facility] Comment: Test Performed at: [facility] [id number] [place], [facility] EHR [address] LUISA LAWRENCE DO,MPH 08/31/2022 9:26 AM POULTRY HUSBANDRY WORKER 08/31/2022 9:27 AM POULTRY HUSBANDRY WORKER Mitchell Zamarripa MD LAB - HEMATOLOGY ORD ERABLES [facility] [address] [place] [address] * (ABNORMAL) CBC WITH DIFFERENTIAL (08/31/2022 9:26 AM POULTRY HUSBANDRY WORKER) Only the most recent of6 resultswithin the [...] 0.9 % [facility] Comment: Test Performed at: [facility] [address] [address] [facility] EHR [address] LUISA LAWRENCE DO,MPH Blasts [facility] nRBC [facility] Comments [facility] Comment: Test Performed at: [facility] [address] [place] [address] LUISA LAWRENCE DO,MPH 08/31/2022 9:26 AM POULTRY HUSBANDRY WORKER 08/31/2022 9:27 AM POULTRY HUSBANDRY WORKER Mitchell Zamarripa MD LAB - HEMATOLOGY ORD [facility] Organization Address City/State/ZIP Co de Phone Number [facility] [address] [place] [address] * (ABNORMAL) COMPREHENSIVE METABOLIC PANEL (08/31/2022 9:26 AM POULTRY HUSBANDRY WORKER) Only the most recent of6 resultswithin the [...] 29 U/L [facility] Comment: Test Performed at: [facility] [address] [place] [address] LUISA LAWRENCE DO,MPH 08/31/2022 9:26 AM POULTRY HUSBANDRY WORKER 08/31/2022 9:27 AM POULTRY HUSBANDRY WORKER Mitchell Zamarripa MD LAB - CHEMISTRY ORDE GAB Performing Organization Address [facility] de Phone Number [facility] [address] [place] [phone] * URINALYSIS W/MICROSCOPIC NO CULTURE (08/11/2021 8:16 AM POULTRY HUSBANDRY WORKER) Only the most recent of3 resultswithin the time period is included. Color UA YELLOW YELLOW [facility] Appearance CLEAR CLEAR [facility] Specific [place] UA 1.010 1.001 - 1.035 [facility] pH [...] SEEN /LPF [facility] Comment: Test Performed at: [employer], [facility] EHR [address] LUISA LAWRENCE DO,MPH Granular Casts [facility] Casts UA [facility] Yeast [facility] Comments [facility] Note [facility] Comment: Test Performed at: [employer], [facility] EHR [address] LUISA LAWRENCE DO,MPH 08/11/2021 8:16 AM POULTRY HUSBANDRY WORKER 08/11/2021 8:17 AM POULTRY HUSBANDRY WORKER Mitchell Zamarripa MD LAB - URINALYSIS ORD ERABLES Performing Organization Address [facility] Co de Phone Number [facility] [address] [place] [address] * URIC ACID BLOOD (08/11/2021 8:16 AM POULTRY HUSBANDRY WORKER) Only the most recent of4 resultswithin the time period is included. Uric Acid 5.8 2.5 - 7.0 mg/dL [facility] Comment: Therapeutic target for gout patients: <6.0 mg/dL Test Performed at: [place] [address] LUISA LAWRENCE DO,MPH 08/11/2021 8:16 AM POULTRY HUSBANDRY WORKER 08/11/2021 8:17 AM POULTRY HUSBANDRY WORKER Mitchell Zamarripa MD LAB - CHEMISTRY INGRID Galvez Organization Address City/State/ZIP Co de Phone Number [facility] [address] [place] [address] * XR FOOT RIGHT 3VW OR MORE (08/03/2021 2:52 PM POULTRY HUSBANDRY WORKER) Only the most recent of2 resultswithin the time period is included. Anatomical Region Laterality Modality Ankle / Foot Radiographic Kristyn ging 08/03/2021 2:57 PM POULTRY HUSBANDRY WORKER Impressions 08/03/2021 3:17 PM POULTRY HUSBANDRY WORKER IMPRESSION: 1. Right hand: Mild arthritis of [...] 3:17 PM . Narrative 08/03/2021 3:17 PM POULTRY HUSBANDRY WORKER Exam: 1.XR HAND RIGHT 3VW 2.XR FOOT [...] osteophytes. There is moderate narrowing of the pyuemedu-aufgtxtup-gllrjplsp joint space. No erosions are seen. The [...] osteophytes. There is moderate narrowing of the xputnfie-iopdutghc-ppinmnkki joint space. No erosions are seen. Thebones [...] LEFT 3VW OR MORE (08/03/2021 2:52 PM POULTRY HUSBANDRY WORKER) Only the most recent of2 resultswithin the time period is included. Anatomical Region Laterality Modality Ankle / Foot Radiographic Kristyn ging 08/03/2021 2:57 PM POULTRY HUSBANDRY WORKER Impressions 08/03/2021 3:17 PM POULTRY HUSBANDRY WORKER IMPRESSION: 1. Right hand: Mild arthritis of [...] 3:17 PM . Narrative 08/03/2021 3:17 PM POULTRY HUSBANDRY WORKER Exam: 1.XR HAND RIGHT 3VW 2.XR FOOT [...] osteophytes. There is moderate narrowing of the ergggawj-ytcqdoznn-mmmckdska joint space. No erosions are seen. The [...] osteophytes. There is moderate narrowing of the khshjkud-msdxgpmms-vcbgnnxcl joint space. No erosions are seen. Thebones [...] RIGHT 3VW OR MORE (08/03/2021 2:52 PM POULTRY HUSBANDRY WORKER) Only the most recent of2 resultswithin the time period is included. Anatomical Region Laterality Modality Wrist / Hand Radiographic Kristyn ging 08/03/2021 2:57 PM POULTRY HUSBANDRY WORKER Impressions 08/03/2021 3:17 PM POULTRY HUSBANDRY WORKER IMPRESSION: 1. Right hand: Mild arthritis of [...] 3:17 PM . Narrative 08/03/2021 3:17 PM POULTRY HUSBANDRY WORKER Exam: 1.XR HAND RIGHT 3VW 2.XR FOOT [...] osteophytes. There is moderate narrowing of the tfdfwvvk-pgjtupqrl-rdgtlnpso joint space. No erosions are seen. The [...] osteophytes. There is moderate narrowing of the shyiyalg-mpydlyexs-qftntfhoh joint space. No erosions are seen. Thebones [...] LEFT 3VW OR MORE (08/03/2021 2:52 PM POULTRY HUSBANDRY WORKER) Only the most recent of2 resultswithin the time period is included. Anatomical Region Laterality Modality Wrist / Hand Radiographic Kristyn ging 08/03/2021 2:57 PM POULTRY HUSBANDRY WORKER Impressions 08/03/2021 3:17 PM POULTRY HUSBANDRY WORKER IMPRESSION: 1. Right hand: Mild arthritis of [...] 3:17 PM . Narrative 08/03/2021 3:17 PM POULTRY HUSBANDRY WORKER Exam: 1.XR HAND RIGHT 3VW 2.XR FOOT [...] osteophytes. There is moderate narrowing of the oafqoenq-ruesfdldl-fnabwdqqg joint space. No erosions are seen. The [...] osteophytes. There is moderate narrowing of the abzkvbrq-hdfdsilqy-orennlada joint space. No erosions are seen. Thebones [...] RIGHT 3VW OR MORE (08/03/2021 2:52 PM POULTRY HUSBANDRY WORKER) Anatomical Region Laterality Modality Wrist / Hand Radiographic Kristyn ging 08/03/2021 2:57 PM POULTRY HUSBANDRY WORKER Impressions 08/03/2021 3:17 PM POULTRY HUSBANDRY WORKER IMPRESSION: 1. Right hand: Mild arthritis of [...] 3:17 PM . Narrative 08/03/2021 3:17 PM POULTRY HUSBANDRY WORKER Exam: 1.XR HAND RIGHT 3VW 2.XR FOOT [...] osteophytes. There is moderate narrowing of the ssxdvyib-zpidmwaqi-founnkjev joint space. No erosions are seen. The [...] osteophytes. There is moderate narrowing of the olhvpqcv-ujautbwop-stxcnpdlj joint space. No erosions are seen. Thebones [...] LEFT 3VW OR MORE (08/03/2021 2:52 PM POULTRY HUSBANDRY WORKER) Anatomical Region Laterality Modality Wrist / Hand Radiographic Kristyn ging 08/03/2021 2:57 PM POULTRY HUSBANDRY WORKER Impressions 08/03/2021 3:17 PM POULTRY HUSBANDRY WORKER IMPRESSION: 1. Right hand: Mild arthritis of [...] 3:17 PM . Narrative 08/03/2021 3:17 PM POULTRY HUSBANDRY WORKER Exam: 1.XR HAND RIGHT 3VW 2.XR FOOT [...] osteophytes. There is moderate narrowing of the lsrefvuk-aozufseyp-bvjrzaudg joint space. No erosions are seen. The [...] osteophytes. There is moderate narrowing of the hgjyprlq-bdzailkva-uuhlpmjdj joint space. No erosions are seen. Thebones [...] MD DIAGNOSTIC IMAGING O RDERABLES * MONTIEL (SM)+LEAD ARCHITECT ANTIBODY PANEL (03/31/2021 9:59 AM CDT) SM Antibody <1.0 NEG <1.0 NEG AI [facility] SM/LEAD ARCHITECT Antibody <1.0 NEG <1.0 NEG AI [facility] Comment: Test Performed at: [employer] [facility] [address] [place] [address] LUISA LAWRENCE DO,MPH 03/31/2021 9:59 AM CDT 03/31/2021 9:59 AM CDT Mitchell Zamarripa MD LAB - SEROLOGY ORDER XOCHITL Performing Organization Address [facility] Co de Phone Number [facility] [address] [place] [address] * CENTROMERE B ANTIBODIES (03/31/2021 9:59 AM CDT) Centromere B Antibody <1.0 NEG <1.0 NEG AI [facility] Comment: Test Performed at: [facility] [address] [place] [address] LUISA LAWRENCE DO,MPH 03/31/2021 9:59 AM CDT 03/31/2021 9:59 AM CDT Mitchell Zamarripa MD LAB - SEROLOGY ORDER XOCHITL Performing Organization Address [facility] Co de Phone Number [facility] [address] [place] [address] * CHROMATIN ANTIBODY (03/31/2021 9:59 AM CDT) Chromatin Nucleosomal Antibody <1.0 NEG <1.0 NEG AI [facility] Comment: Test Performed at: [employer] [place] [address] [facility]ENTER[facility] [address] LUISA LAWRENCE DO,MPH 03/31/2021 9:59 AM CDT 03/31/2021 9:59 AM CDT Mitchell Zamarripa MD LAB - SEROLOGY ORDER XOCHITL Performing Organization Address [facility] Co de Phone Number [facility] [address] [place] [address] * RNA POLYMERASE III ANTIBODY IGG (03/31/2021 9:59 AM CDT) RNA Polymerase 3 Antibody <20 <20 Units [facility] Comment: Test Performed at: [employer]/[facility] [address] [place] [address] JONATHAN LUQUE MD,PHD,JAQUELINE 03/31/2021 9:59 AM CDT 03/31/2021 9:59 AM CDT Mitchell Zamarripa MD LAB - SEROLOGY ORDER XOCHITL Performing Organization Address City/[facility] Co de Phone Number [facility] [address] [place] [address] * PM/SCL-100 ANTIBODY IGG (03/31/2021 9:59 AM CDT) PM Scl 100 AB <20 <20 Units [facility] Comment: Negative: <20 Weak Positive: 20 - 39 Moderate Positive: 40 - 80 Strong Positive: >80 Comments: This test was developed and its performance characteristics determined by [facility]. It has not been cleared or approved by the Food and Drug Administration. Test Performed at: [employer] [address] [place] [address] NATALYA PEREZ MD 03/31/2021 9:59 AM CDT 03/31/2021 9:59 AM CDT Mitchell Zamarripa MD LAB - SEROLOGY ORDER XOCHITL Performing Organization Address [facility] Co de Phone Number [facility] [address] [place] [address] * HISTONE ANTIBODY (03/31/2021 9:59 AM CDT) [facility] Histone Antibodies <1.0 U [facility] Comment: Value Expanation of Results <1.0 Negative 1.0-1.5 Weak Positive 1.6-2.5 Moderate Positive >2.5 Strong Positive Test Performed at: [employer] [facility] [address] [place] [address] JONATHAN LUQUE MD,PHD,JAQUELINE 03/31/2021 9:59 AM CDT 03/31/2021 9:59 AM CDT Mitchell Zamarripa MD LAB - CHEMISTRY INGRID DE GUZMAN Performing Organization Address City/[facility] Co de Phone Number [facility] [address] [place] [address] * SS-B (SJOGREN'S) ANTIBODY (03/31/2021 9:59 AM CDT) Only the most recent of2 resultswithin the time period is included. Sjogren's Antibodies (SSB) <1.0 NEG <1.0 NEG AI [facility] Comment: Test Performed at: [employer] [facility] [address] [place] [address] LUISA LAWRENCE DO,MPH 03/31/2021 9:59 AM CDT 03/31/2021 9:59 AM CDT Mitchell Zamarripa MD LAB - CHEMISTRY [place]ANS[facility]IN Performing Organization Address [facility] [place] [address] * SS-A (SJOGREN'S) ANTIBODY (03/31/2021 9:59 AM CDT) Only the most recent of2 resultswithin the time period is included. Sjogren's Antibodies (SSA) <1.0 NEG <1.0 NEG AI [facility] Comment: Test Performed at: [employer] [facility] [address] LUISA LAWRENCE DO,MPH 03/31/2021 9:59 AM CDT 03/31/2021 9:59 AM CDT Mitchell Zamarripa MD LAB - CHEMISTRY INGRID DE GUZMAN Performing Organization Address [facility] Co de Phone Number [facility] [address] [place] [address] * SCLERODERMA 70 (SCL) ANTIBODY (03/31/2021 9:59 AM CDT) Only the most recent of2 resultswithin the time period is included. SCL-70 Antibody <1.0 NEG <1.0 NEG AI [facility] Comment: Test Performed at: [employer] [facility]OSPITALVIPTALON [address] [place] [address] LUISA LAWRENCE DO,MPH 03/31/2021 9:59 AM CDT 03/31/2021 9:59 AM CDT Mitchell Zamarripa MD LAB - CHEMISTRY INGRID DE GUZMAN Performing Organization Address [facility] Co de Phone Number [facility] [phone] [place] [address] * DNA ANTIBODY DOUBLE STRANDED (03/31/2021 9:59 AM CDT) dsDNA Antibody <1 IU/mL [facility] Comment: IU/mL Interpretation < or = 4 Negative 5-9 Indeterminate > or = 10 Positive Test Performed at: [employer], [facility] EHR [address] LUISA LAWRENCE DO,MPH 03/31/2021 9:59 AM CDT 03/31/2021 9:59 AM CDT Mitchell Zamarripa MD LAB - HEMATOLOGY SANAZ ORANTES Performing Organization Address [facility] Co de Phone Number [facility] [address] [place] [address] * MARTHA-1 ANTIBODY (03/31/2021 9:59 AM CDT) Martha-1 Antibody <1.0 NEG <1.0 NEG AI [facility] Comment: Test Performed at: [employer], [facility] EHR [address] LUISA LAWRENCE DO,MPH 03/31/2021 9:59 AM CDT 03/31/2021 9:59 AM CDT Mitchell Zamarripa MD LAB - CHEMISTRY INGRID DE GUZMAN Performing Organization Address [facility] Co de Phone Number [place] [phone] * ALDOLASE (03/31/2021 9:59 AM CDT) Only the most recent of3 resultswithin the time period is included. Aldolase 5.2 < OR = 8.1 U/L [facility] Comment: Test Performed at: [facility] [address] [address], [facility] EHR [address] LUISA LAWRENCE DO,MPH 03/31/2021 9:59 AM CDT 03/31/2021 9:59 AM CDT Mitchell Zamarripa MD LAB - CHEMISTRY INGRID DE GUZMAN Performing Organization Address [facility] Co de Phone Number [facility] [phone] [place] [address] * LDH BLOOD (03/31/2021 9:59 AM CDT) Only the most recent of3 resultswithin the time period is included. LD-Total 181 120 - 250 U/L [facility] Comment: Test Performed at: [place] [address] LUISA LAWRENCE DO,MPH 03/31/2021 9:59 AM CDT 03/31/2021 9:59 AM CDT Mitchell Zamarripa MD LAB - CHEMISTRY INGRID DE GUZMAN Performing Organization Address [facility] Co de Phone Number [facility] [phone] [place] [address] * CK BLOOD (03/31/2021 9:59 AM CDT) Only the most recent of3 resultswithin the time period is included. CK 68 29 - 143 U/L [facility] Comment: Test Performed at: [place] [address] LUISA LAWRENCE DO,MPH 03/31/2021 9:59 AM CDT 03/31/2021 9:59 AM CDT Mitchell Zamarripa MD LAB - CHEMISTRY INGRID DE GUZMAN Performing Organization Address [facility] Co de Phone Number [facility] [address] [place] [phone] * CULTURE URINE REFLEXED I (12/21/2019 8:29 AM CDT) Reflexive Urine Culture NO CULTURE INDICATED [facility] Comment: Test Performed at: [employer], [facility] EHR [address] LUISA LAWRENCE DO,MPH 12/21/2019 8:29 AM CDT 12/21/2019 8:31 AM CDT Mitchell Zamarripa MD LAB - MICROBIOLOGY O RDERABLES Performing Organization Address [facility] de Phone Number [facility] [address] [place] [address] * (ABNORMAL) URINALYSIS W/MICROSCOPIC REFLEX TO CULTURE (12/21/2019 8:29 AM CDT) Color UA YELLOW YELLOW [facility] Appearance CLOUDY(A) CLEAR [facility] Specific [place] UA 1.016 1.001 - 1.035 [facility] pH [...] MUCOUS THREADS [facility] Comment: Test Performed at: [employer] [facility] [address] LUISA LAWRENCE DO,MPH Reflexive Urine Culture NO CULTURE INDICATED [facility] Comment: REPORT COMMENT: FASTING:YES Test Performed at: [place] [place] [address] LUISA LAWRENCE DO,MPH Urine URINE SPECIMEN OBTAINED BY CLEAN CATCH PROCEDURE / Unknown 12/21/2019 8:29 AM CDT 12/21/2019 8:31 AM CDT Mitchell Zamarripa MD LAB - URINALYSIS ORD ERABLES Performing Organization Address [facility] Co de Phone Number [facility] [address] [place] [address] * (ABNORMAL) TY BLOOD SINGLE PATTERN (07/23/2019 2:21 PM POULTRY HUSBANDRY WORKER) TY Pattern Speckled( A) 07/25/2019 5:39 PM POULTRY HUSBANDRY WORKER [employer] ([facility]) TY Titer 1:80(A) 07/25/2019 5:39 PM POULTRY HUSBANDRY WORKER [employer] [facility] ([facility]) Comment: Performed by [employer], [address] [place] [address],[place] [address] [email or web address], Barry Carmona MD, Lab. Director Blood BLOOD SPECIMEN / Unknown Lab Venipuncture / Unknown 07/23/2019 2:21 PM POULTRY HUSBANDRY WORKER 07/23/2019 3:13 PM POULTRY HUSBANDRY WORKER Janes Smith MD LAB - CHEMISTRY INGRID DE GUZMAN [facility] [employer] [facility]) [address] [place] [address], [facility] * (ABNORMAL) SCLERODERMA COMPREHENSIVE AB PANEL (07/23/2019 2:21 PM POULTRY HUSBANDRY WORKER) TY HEp-2 IgG Detected(H ) <1:80 07/26/2019 7:52 PM POULTRY HUSBANDRY WORKER [facility] [employer] ([facility]) TY Interpretive Comment See Note 07/26/2019 7:52 PM POULTRY HUSBANDRY WORKER [facility] [employer] ([facility]) Comment: Speckled Pattern Clinical associations: SLE, SSc, SjS, DM, PM, MCTD, UCTD. May also be found in healthy individuals Main autoantibodies: Anti-SSA-52 (Ro52), anti-SSA-60 (Ro60), anti-SS-B/LA, anti-Kareem-1 (anti-Scl-70), Montiel, anti-U1-LEAD ARCHITECT, anti-U2-LEAD ARCHITECT, anti-Mi-2, anti-TIF1g, anti-Ku, anti-RNA polymerase, anti-DFS70/LEDGF-P75 Clinical [...] - 40 AU/mL 07/26/2019 7:52 PM [facility] [employer] ([facility]) Comment: INTERPRETIVE INFORMATION: Scleroderma (Scl-70) (LAUREN) Ab, [...] testing for centromere, RNA polymerase III and U3-LEAD ARCHITECT, PM/Scl, or Th/To antibodies. RNA Polymerase 3 Antibody IgG 5 0 - 19 Units 07/26/2019 7:52 PM [facility] [employer] ([facility]) Comment: INTERPRETIVE INFORMATION: RNA Polymerase III Antibody, [...] antibodies associated with SSc, including centromere, Scl-70, U3-LEAD ARCHITECT, PM/Scl, or Th/To. Montile/LEAD ARCHITECT (LAUREN) Antibody IgG 1 0 - 40 AU/mL 07/26/2019 7:52 PM [facility] [employer] ([facility]) Comment: INTERPRETIVE INFORMATION: Montiel/LEAD ARCHITECT (LAUREN) Antibody, IgG 29 AU/mL or Less ............. Negative 30 - 40 AU/mL ................ Equivocal 41 AU/mL or Greater .......... Positive Montiel/LEAD ARCHITECT antibodies are frequently seen in patients with mixed connective tissue disease (MCTD) and are also associated with other systemic autoimmune rheumatic diseases (SARDs) such as systemic lupus erythematosus (SLE), systemic sclerosis, and myositis. Antibodies targeting the Montiel/LEAD ARCHITECT antigenic complex also recognize Montiel antigens, therefore, the Montiel antibody response must be considered when interpreting these results. PM/Scl 100 Antibody IgG Negative Negative 07/26/2019 7:52 PM [facility] [employer] ([facility]) Comment: INTERPRETIVE INFORMATION: PM/Scl-100 Antibody, IgG by [...] occur. Test developed and characteristics determined by [employer]. See Compliance Statement D: [employer] Fibrillarin (U3 LEAD ARCHITECT) Antibody IgG Negative Negative 07/26/2019 7:52 PM POULTRY HUSBANDRY WORKER [facility] [employer] ([facility]) Comment: Interpretive Information: Fibrillarin (U3 LEAD ARCHITECT) Antibody, IgG The presence of fibrillarin (U3-LEAD ARCHITECT) IgG antibodies in association with an TY [...] a multi-ethnic cohort of SSc patients (n=98), U3-LEAD ARCHITECT antibodies detected by immunoblot had an agreement of 98.9 percent with the gold standard immunoprecipitation (IP) assay. Approximately 71 percent (5/7) of the borderline U3-LEAD ARCHITECT results with TY nucleolar pattern in this cohort were IP negative. Test developed and characteristics determined by [employer]. See Compliance Statement D: [employer] Performed by [employer], [address] [place] [address] [email or web address], Barry Carmona MD, Lab. Director Blood BLOOD SPECIMEN / Unknown Lab Venipuncture / Unknown 07/23/2019 2:21 PM POULTRY HUSBANDRY WORKER 07/23/2019 3:13 PM POULTRY HUSBANDRY WORKER Janes Smith MD LAB - SEROLOGY ORDER XOCHITL [employer] ([facility]) [address] [place] [address], [facility] * CYCLIC CITRUL PEPTIDE ANTIBODY IGG/IGA (CCP) (07/23/2019 2:21 PM POULTRY HUSBANDRY WORKER) CCP Antibodies IgG/IgA 10 0 - 19 units 07/24/2019 11:06 PM POULTRY HUSBANDRY WORKER [facility] ([facility]) Comment: Negative <20 Weak positive 20 - 39 Moderate positive 40 - 59 Strong positive >59 Blood BLOOD SPECIMEN / Unknown Lab Venipuncture / Unknown 07/23/2019 2:21 PM POULTRY HUSBANDRY WORKER 07/23/2019 3:13 PM POULTRY HUSBANDRY WORKER Narrative [facility] ([facility]) - 07/24/2019 11:06 PM POULTRY HUSBANDRY WORKER Performed at: - [address] [id number] Mid Teacher: Virginia Mojica MD, Phone: [phone] Janes Smith MD LAB - SEROLOGY ORDER XOCHITL [facility] ([facility]) [address] [place], [place] [id number] * DNA ANTIBODY DS CRITHIDIA TITER (07/23/2019 2:21 PM POULTRY HUSBANDRY WORKER) [facility] dsDNA Antibody IgG <1:10 <1:10 2018 4:54 PM POULTRY HUSBANDRY WORKER [employer] FORMERLY [facility] ([facility]) Comment: INTERPRETIVE INFORMATION: Double-Stranded DNA (dsDNA) Antibody, [...] recommendations for testing may be found at [email or web address] ndex.html. Performed by [employer], [address] [place] [id number] [email or web address], Barry Carmona MD, Lab. Director Blood BLOOD SPECIMEN / Unknown Lab Venipuncture / Unknown 07/23/2019 2:21 PM POULTRY HUSBANDRY WORKER 07/23/2019 3:13 PM POULTRY HUSBANDRY WORKER Janes Smith MD LAB - SEROLOGY ORDER XOCHITL FORMERLY [facility] ([facility]) [address] * (ABNORMAL) LUPUS ANTICOAGULANT PANEL (07/23/2019 2:21 PM POULTRY HUSBANDRY WORKER) APTT 28.3 23.0 - 38.4 Seconds 07/24/2019 11:07 AM [facility] PT 11.6(L) 12.1 - 14.8 Seconds 07/24/2019 11:07 AM [facility] INR 0.9 See Comment 07/24/2019 11:07 AM [facility] [place] Buffer 46.5 Seconds 019 11:07 AM [facility] [place] Phospholipid 42.7 Seconds 07/24/2019 11:07 AM [facility] [place] Delta 3.8 <8.0 Seconds 07/24/2019 11:07 AM [facility] Interpretation [place] Negative Negative 07/24/2019 11:07 AM [facility] Comment:Up to 15-20% of crystal ents [...] Lab Venipuncture / Unknown 07/23/2019 2:21 PM POULTRY HUSBANDRY WORKER 07/23/2019 3:13 PM POULTRY HUSBANDRY WORKER Janes Smith MD LAB - HEMATOLOGY ORD ERABLES [facility] [address] [phone] * RHEUMATOID FACTOR BLOOD QUANTITATIVE (07/23/2019 2:21 PM POULTRY HUSBANDRY WORKER) Rheumatoid Factor <15 <30 IU/mL 07/23/2019 3:42 PM [facility] Blood BLOOD SPECIMEN / Unknown Lab Venipuncture / Unknown 07/23/2019 2:21 PM POULTRY HUSBANDRY WORKER 07/23/2019 3:13 PM POULTRY HUSBANDRY WORKER Janes Smith MD LAB - CHEMISTRY INGRID DE GUZMAN [facility] Organization Address City/State/ZIP Co de Phone Number [facility] [address] [phone] * OCT (06/25/2019 1:43 PM CDT) Anatomical Region Laterality Modality Other 06/25/2019 1:43 PM CDT Janes Smith MD OPHTHALMOLOGY SERVIC ES ORDERABLES * (ABNORMAL) URINALYSIS REFLEX TO MICROSCOPIC NO CULTURE (05/24/2019 12:43 PM CDT) Color UA Yellow Straw, Yellow, Colorless 05/24/2019 1:10 PM [facility] Clarity UA Clear Clear, Slt Cloudy 05/24/2019 1:10 PM T [facility] Specific [place] UA 1.014 1.005 - 1.030 05/24/2019 1:10 PM [facility] pH UA 7.0 5.0 - 8.0 pH 05/24/2019 1:10 PM [facility] Protein UA Negative Negative mg/dL 05/24/2019 1:10 PM [facility] Glucose UA Negative Negative mg/dL 05/24/2019 1:10 PM [facility] Ketone UA Negative Negative mg/dL 05/24/2019 1:10 PM [facility] Bilirubin UA Negative Negative mg/dL 05/24/2019 1:10 PM [facility] Blood UA Negative Negative 05/24/2019 1:10 PM [facility] Nitrite UA Negative Negative 05/24/2019 1:10 PM [facility] Leukocyte Esterase Negative Negative 05/24/2019 1:10 PM [facility] Urobilinogen UA Negative Negative mg/dL 05/24/2019 1:10 PM [facility] RBC UA 3-5 None Seen, 0-2, 3-5 /HPF 05/24/2019 1:10 PM CDT [facility] WBC UA 0-5 None Seen, 0-5 /HPF 05/24/2019 1:10 PM CDT [facility] Squamous Epithelial Cells UA 3-5(A) None Seen, 0-2 /HPF 05/24/2019 1:10 PM CDT [facility] Urine URINE SPECIMEN OBTAINED BY CLEAN CATCH PROCEDURE / Unknown Collection / Unknown 05/24/2019 12:43 PM CDT 05/24/2019 12:55 PM CDT Narrative [facility] - 05/24/2019 1:10 PM CDT Janes Smith MD LAB - URINALYSIS ORD ERABLES Performing Organization Address City/State/[facility] Co de Phone Number [address] [phone] * XR ANKLE RIGHT 3VW OR MORE [...] IgG units 05/26/2019 6:08 AM CDT [facility] ([facility]) Comment: The reference interval reflects a 3SD or 99th percentile interval, which is thought to represent a potentially clinically significant result in accordance with the International Consensus Statement on the classification criteria for definitive antiphospholipid syndrome (APS). J Thromb Haem 2006;4:295-306. Blood BLOOD SPECIMEN / Unknown Lab Venipuncture / Unknown 05/24/2019 12:10 PM CDT 05/24/2019 12:49 PM CDT Narrative [facility] ([facility]) - 05/26/2019 6:08 AM CDT Performed at: 01 - [facility] [id number] Mid Teacher: Virginia Mojica MD, Phone: [phone] Janes Smith MD LAB - SEROLOGY ORDER XOCHITL Performing Organization Address [facility] Co de Phone Number [facility] ([facility]) [address] [place] [address], [place] * BETA-2 GLYCOPROTEIN 1 ANTIBODY IGM (05/24/2019 12:10 PM CDT) [facility] Beta-2 Glycoprotein I Antibody IgM <9 0 - 32 GPI IgM units 05/26/2019 3:07 PM CDT [facility] ([facility]) Comment: The reference interval reflects a 3SD or 99th percentile interval, which is thought to represent a potentially clinically significant result in accordance with the International Consensus Statement on the classification criteria for definitive antiphospholipid syndrome (APS). J Thromb Haem 2006;4:295-306. Blood BLOOD SPECIMEN / Unknown Lab Venipuncture / Unknown 05/24/2019 12:10 PM CDT 05/24/2019 12:49 PM CDT Narrative [facility] ([facility]) - 05/26/2019 3:07 PM CDT Performed at: 01 - [address] [id number] Mid Teacher: Virginia Mojica MD, Phone: [phone] Janes Smith MD LAB - SEROLOGY ORDER XOCHITL Performing Organization Address [facility] Co de Phone Number [facility] [address] [place] [address], [place] * CARDIOLIPIN ANTIBODY IGA (05/24/2019 12:10 PM CDT) Pathologist [facility] Cardiolipin Antibody IgA <9 0 - 11 APL U/mL 05/25/2019 4:09 PM CDT [facility] ([facility]) Comment: Negative: <12 Indeterminate: 12 - 20 Low-Med Positive: >20 - 80 High Positive: >80 Blood BLOOD SPECIMEN / Unknown Lab Venipuncture / Unknown 05/24/2019 12:10 PM CDT 05/24/2019 12:49 PM CDT Narrative [facility] ([facility]) - 05/25/2019 4:09 PM CDT Performed at: [address] [place] [id number] Mid Teacher: Khang Rosario PhD, Phone: [phone] Janes Smith MD LAB - SEROLOGY ORDER XOCHITL Performing Organization Address City/[facility] Co de Phone Number [facility] ([facility]) [address] [place] [address] * CARDIOLIPIN ANTIBODY IGM (05/24/2019 12:10 PM CDT) Pathologist [facility] Cardiolipin Antibody IgM <9 0 - 12 MPL U/mL 05/25/2019 4:09 PM CDT [facility] Comment: Negative: <13 Indeterminate: 13 - 20 Low-Med Positive: >20 - 80 High Positive: >80 Blood BLOOD SPECIMEN / Unknown Lab Venipuncture / Unknown 05/24/2019 12:10 PM CDT 05/24/2019 12:49 PM CDT Narrative [facility] ([facility]) - 05/25/2019 4:09 PM CDT Performed at: [address] [place] [id number] Mid Teacher: Khang Rosario PhD, Phone: [phone] Janes Smith MD LAB - SEROLOGY ORDER XOCHITL Performing Organization Address City/[facility]/ZIP Co de Phone Number [facility] ([facility]) [address] [place] [address] * CARDIOLIPIN ANTIBODY IGG (05/24/2019 12:10 PM CDT) Pathologist [facility] Cardiolipin Antibody IgG <9 0 - 14 GPL U/mL 05/25/2019 4:09 PM CDT [facility] ([facility]) Comment: Negative: <15 Indeterminate: 15 - 20 Low-Med Positive: >20 - 80 High Positive: >80 Blood BLOOD SPECIMEN / Unknown Lab Venipuncture / Unknown 05/24/2019 12:10 PM CDT 05/24/2019 12:49 PM CDT Narrative [facility] ([facility]) - 05/25/2019 4:09 PM CDT Performed at: - [facility] [address] [place] [id number] Mid Teacher: Khang Rosario PhD, Phone: [phone] Janes Smith MD LAB - SEROLOGY ORDER XOCHITL Performing Organization Address City/[facility]/ZIP Co de Phone Number [facility] ([facility]) [address] [place] [address] * MONTIEL (SM) ANTIBODY LAUREN (05/24/2019 12:10 PM CDT) Pathologist [facility] Montiel Antibody 3.4 0.0 - 19.9 Units 05/25/2019 10:05 AM CDT [facility] Comment: LAUREN Antibody Numeric Result Interpretation: <20.0 Units: Negative 20.0 - 39.0 Units: Weakly Positive >39.0 Units: Positive Blood BLOOD SPECIMEN / Unknown Lab Venipuncture / Unknown 05/24/2019 12:10 PM CDT 05/24/2019 12:48 PM CDT Janes Smith MD LAB - CHEMISTRY INGRID DE GUZMAN [address] [phone] * LEAD ARCHITECT ANTIBODY (05/24/2019 12:10 PM CDT) [facility] SM/LEAD ARCHITECT Antibody 3.2 0.0 - 19.9 Units 05/25/2019 10:05 AM CDT [facility] Comment: LAUREN Antibody Numeric Result Interpretation: <20.0 Units: Negative 20.0 - 39.0 Units: Weakly Positive >39.0 Units: Positive Blood BLOOD SPECIMEN / Unknown Lab Venipuncture / Unknown 05/24/2019 12:10 PM CDT 05/24/2019 12:48 PM CDT Janes Smith MD LAB - CHEMISTRY INGRID DE GUZMAN Performing Organization Address City/[facility]/ZIP Co de Phone Number [facility] [address] [place] [address] * TY BLOOD SCREEN W/REFLEX TITER (05/24/2019 12:10 PM CDT) TY Negative 05/25/2019 5:07 PM CDT [facility] ([facility]) Comment: Negative <1:80 Borderline 1:80 Positive >1:80 Blood BLOOD SPECIMEN / Unknown Lab Venipuncture / Unknown 05/24/2019 12:10 PM CDT 05/24/2019 12:49 PM CDT Narrative [facility] ([facility]) - 05/25/2019 5:07 PM CDT Performed at: [address] [place] [address] [id number] Mid Teacher: Khang Rosario PhD, Phone: [phone] Janes Smith MD LAB - CHEMISTRY INGRID DE GUZMAN Performing Organization Address City/[facility] Co de Phone Number [facility] ([facility]) [address] [place] [address] * BETA-2 GLYCOPROTEIN 1 ANTIBODY IGA (05/24/2019 12:10 PM CDT) Beta-2 Glycoprotein I Antibody IgA <9 0 - 25 GPI IgA units 05/26/2019 6:08 AM CDT [facility] ([facility]) Comment: The reference interval reflects a 3SD or 99th percentile interval, which is thought to represent a potentially clinically significant result in accordance with the International Consensus Statement on the classification criteria for definitive antiphospholipid syndrome (APS). J Thromb Haem 2006;4:295-306. Blood BLOOD SPECIMEN / Unknown Lab Venipuncture / Unknown 05/24/2019 12:10 PM CDT 05/24/2019 12:49 PM CDT [facility]ative [facility] ([facility]) - 05/26/2019 6:08 AM CDT Performed at: [address] [place] [id number] Mid Teacher: Virginia Mojica MD, Phone: [phone] Janes Smith MD LAB - SEROLOGY ORDER XOCHITL Performing Organization Address [facility] Co de Phone Number [facility] ([facility]) [address] [place] [address] * COMPLEMENT TOTAL (05/24/2019 12:10 PM CDT) Pathologist [facility] Complement Total CH50 >60 42 - 087769 U/mL 05/25/2019 3:08 PM CDT [facility] ([facility]) Blood BLOOD SPECIMEN / Unknown Lab Venipuncture / Unknown 05/24/2019 12:10 PM CDT 05/24/2019 12:49 PM CDT [facility] ([facility]) - 05/25/2019 3:08 PM CDT Performed at: [address] [place] [address] [place] [address] [id number] Mid Teacher: Khang Rosario PhD, Phone: [phone] Janes Smith MD LAB - CHEMISTRY ORDLeidy DE GUZMAN Performing Organization Address City/[facility] Co de Phone Number [facility]) [address] [place] [address] * VITAMIN D 25-HYDROXY (05/24/2019 12:10 PM CDT) Pathologist [facility] Vitamin D, 25 Hydroxy 62.3 See comment: ng/mL 05/24/2019 1:48 PM CDT [facility] Comment: The recommendations for 25-Hydroxy [...] MD LAB - CHEMISTRY INGRID DE GUZMAN [address] [phone] * COMPLEMENT C4 (05/24/2019 12:10 PM CDT) Complement C4 39 15 - 57 mg/dL 05/24/2019 1:27 PM CDT [facility] Blood BLOOD SPECIMEN / Unknown Lab Venipuncture / Unknown 05/24/2019 12:10 PM CDT 05/24/2019 12:48 PM CDT Janes Smith MD LAB - SEROLOGY ORDER XOCHITL Performing Organization Address [facility]/[place] [address], [facility] [phone] * COMPLEMENT C3 (05/24/2019 12:10 PM CDT) Complement C3 151 82 - 193 mg/dL 05/24/2019 1:27 PM CDT [facility] Blood BLOOD SPECIMEN / Unknown Lab Venipuncture / Unknown 05/24/2019 12:10 PM CDT 05/24/2019 12:48 PM CDT Janes Smith MD LAB - CHEMISTRY INGRID DE GUZMAN Performing Organization Address City/[facility]/[place] [address], [facility] [phone] * CARDIAC RHYTHM STRIP ORDER (11/11/2011 11:11 AM CDT) Narrative Transcriptions Document, Scanned - 11/11/2011 11:11 AM CDT Scanned Document CARDIAC SERVICES ORD ERABLES * CARDIAC ECHOCARDIOGRAM COMPLETE ORDER (11/11/2011 11:11 AM CDT) Narrative Transcriptions Document, Scanned - 11/11/2011 11:11 AM CDT Scanned Document ECHO ORDERABLES * BLOOD TYPE VERIFICATION (10/28/2011 8:35 AM POULTRY HUSBANDRY WORKER) ABO Rh B Pos SEE BELOW [facility] Comment: Weak D testing is not performed at [facility] BLOOD SPECIMEN / Unknown 10/28/2011 8:35 AM POULTRY HUSBANDRY WORKER 10/28/2011 9:53 AM POULTRY HUSBANDRY WORKER Emery Zepeda MD LAB - BLOOD BANK ORD DatezrBLES Performing Organization Address [facility] de Phone Number [facility] [address] [place] [address] * TYPE + SCREEN PANEL (10/28/2011 8:30 AM POULTRY HUSBANDRY WORKER) ABO Rh B Pos SEE BELOW [facility] Comment: Weak D testing is not performed at [facility] Antibody Screen Neg [facility] Previous History Check Done Historical blood type on record, type verification complete. [facility] Miscellaneous samples (specimen) BLOOD SPECIMEN / Unknown 10/28/2011 8:30 AM POULTRY HUSBANDRY WORKER 10/28/2011 9:23 AM POULTRY HUSBANDRY WORKER Emery Zepeda MD LAB - BLOOD BANK ORD DatezrBLES Performing Organization Address City/[facility] Co de Phone Number [facility] [address] [place] [address] * CBC W/O DIFFERENTIAL (10/28/2011 8:30 AM POULTRY HUSBANDRY WORKER) WBC 9.4 4.0 - 10.0 K/CUM[facility] RBC 4.41 3.80 - 5.80 M/CUM[facility] Hemoglobin 14.1 12.0 - 16.0 gm/dL [facility] Hematocrit 41.2 37.0 - 47.0 % [facility] MCV 93.4 80.0 - 100.0 fl [facility] MCH 32.0 26.0 - 34.0 pg [facility] MCHC 34.2 31.0 - 37.0 gm/dL [facility] RDW 12.5 11.5 - 14.5 % [facility] Platelet Count 373 150 - 400 K/[facility] Blood specimen (specimen) BLOOD SPECIMEN / Unknown 10/28/2011 8:30 AM POULTRY HUSBANDRY WORKER 10/28/2011 9:22 AM POULTRY HUSBANDRY WORKER Emery Zepeda MD LAB - HEMATOLOGY ORD ERABLES Performing Organization Address [facility] Co de Phone Number [facility] [address] [place] [address] * BASIC METABOLIC PANEL (CALCIUM TOTAL) (10/28/2011 8:30 AM POULTRY HUSBANDRY WORKER) Sodium 141 136 - 145 mmol/L [facility] Potassium 3.9 3.5 - 5.1 mmol/L [facility] Chloride 103 98 - 107 mmol/L [facility] BUN 15 7 - 21.0 mg/dl [facility] Creatinine 0.86 0.5 - 1.3 mg/dl [facility] Glucose 81 65 - 105 mg/dl [facility] CO2 30 22 - 30 mmol/L [facility] Calcium 9.3 8.5 - 10.1 mg/dl [facility] eGFR by MDRD >60 >60 mL/min/1.7 3m2 [facility] Comment eGFR [facility] Comment: The eGFR does not apply to patients who are younger than 18 or older than 70. Blood specimen (specimen) BLOOD SPECIMEN / Unknown 10/28/2011 8:30 AM POULTRY HUSBANDRY WORKER 10/28/2011 9:22 AM POULTRY HUSBANDRY WORKER Emery Zepeda MD LAB - CHEMISTRY ORDLeidy DE GUZMAN Performing Organization Address City/[facility] Co de Phone Number [facility] [address] [place] [phone] * CULTURE URINE COMPREHENSIVE (06/12/2011 10:00 AM CDT) Culture SEE NOTE [facility] ([facility]) Comment: CULTURE, URINE, SPECIAL MICRO NUMBER: [id number] TEST STATUS: FINAL SPECIMEN SOURCE: URINE (CATHETER COLLECTED) SPECIMEN QUALITY: ADEQUATE RESULT: No Growth NO COLLECTION DATE RECEIVED. WE HAVE USED THE DATE THE SPECIMEN WAS RECEIVED BY THIS LABORATORY THE COLLECTION DATE. IF THIS IS INCORRECT, PLEASE CONTACT CLIENT SERVICES. PHONE NUMBER: [phone] Test Performed at: [facility] [address] [phone] LUISA LAWRENCE DO Urine specimen (specimen) URINE SPECIMEN COLLECTION, CATHETERIZED / Unknown 06/12/2011 10:00 AM CDT 06/10/2011 1:12 AM CDT Narrative [facility] ([facility]) - 06/12/2011 10:00 AM CDT Preferred Lab:->[facility] Emery Zepeda MD LAB - MICROBIOLOGY O RDERABLES [facility] ([facility]) * URINALYSIS - POINT OF CARE (AMB) [facility] (08/29/1998 12:00 AM POULTRY HUSBANDRY WORKER) Glucose UA neg [facility] Bilirubin UA POCT neg [facility] Ketones UA POCT neg [facility] Specific [place] UA 1.010 [facility] Blood Urine POCT neg [facility] pH UA 5.0 [facility] Protein UA neg [facility] Urobilinogen UA neg [facility] Nitrite UA neg [facility] WBC UA neg [facility] Urine specimen (specimen) 08/29/1998 Emery Zepeda MD LAB - POINT OF CARE ORDERABLES [facility] Care Teams Caustic Cresylate Shift Superintendent Relationship Specialty Start Date End Date Shandra Ruffin, HYBRID DERIVATIVES TRADER-PROSTHETIC LAB TECHNICIAN [address] [place] [address] PCP - General 04/02/22
--- OUTSIDE RECORDS SUMMARY | 2024-10-22 14:09 | XMS_ITS | Referral Summary ---
Author Organization [facility] Address [address] [place] [address] Care Team Providers Care Factory Manager Name Role Phone Shandra Ruffin Malcolm WISDOM-HEAVY DUTY MECHANIC Primary Care Provider Source Comments [facility],non-owned Affiliates and Associated Physician Practices is amultiple site organization consisting of ambulatory clinics and hospital sitesin [place], [place], [place] and [place]. This disclosure is being madepursuant to the Care Everywhere program and may not contain all information available regarding this patient. Last updated 18.[facility] Allergies Active Allergy Reactions Criticality Noted Date [...] LURIA, FLUZONE TRIVALENT; 6MO+) (IIV3) 06/16/2016,06/11/2015,06/01/2014,2012,06/14/2012,06/01/2011 [employer] primary monoval ent 12+ yr 0.3mL Purple [...] Comments COMPREHENSIVE METABOLIC PANEL 08/31/2022 9:26 AM NUCLEAR CHEMISTRY TECHNICIAN from Last 3 Months or Most Recently Relevant to Health Maintenance Results * (ABNORMAL) COMPREHENSIVE METABOLIC PANEL (08/31/2022 9:26 AM NUCLEAR CHEMISTRY TECHNICIAN) Glucose 105(H) 65 - 99 mg/dL [...] 29 U/L [facility] Comment: Test Performed at: [facility] [address] [place] [address] LUISA LAWRENCE DO,MPH 08/31/2022 9:26 AM NUCLEAR CHEMISTRY TECHNICIAN 08/31/2022 9:27 AM NUCLEAR CHEMISTRY TECHNICIAN Mitchell Zamarripa MD LAB - CHEMISTRY INGRID DE GUZMAN [facility] Organization Address City/State/ZIP Co de Phone Number [facility] [address] [place] [address] from Last 3 Months or Most Recently Relevant to Health Maintenance Advance Directives * FULL RESUSCITATION (Latest Code Status on File) Date Activated Date Inactivated Comments 11/08/2011 12:50 PM 11/10/2011 12:21 AM Care Teams Factory Manager Relationship Specialty Start Date End Date Shandra Ruffin, ACCOUNT RESOLUTION SPECIALIST-HEAVY DUTY MECHANIC [address] [place] [phone] PCP - General 04/02/22
--- OUTSIDE RECORDS SUMMARY | 2024-10-22 14:10 | XMS_ITS | Clinical Summary ---
Author Organization [facility] Address [address] [place] [address] Phone Care Team Providers Care Shook Machine Operator Name Role Phone Jose Cruz Ledezma Primary Care Provider [phone] Allergies Active Allergy Reactions Criticality Noted Date [...] age to complete this topic Insurance MEDICARE [employer] GENERIC Care Teams Shook Machine Operator Relationship Specialty Start Date End Date Jose Cruz Ledezma PAC [address] [place] [address] PCP - General Physician Public Affairs Specialist 01/28/20
--- OUTSIDE RECORDS SUMMARY | 2024-10-22 14:10 | XMS_ITS | Clinical Summary ---
Author Organization [facility] Address [address] [place] [address] Phone Care Team Providers Care Visual Display Manager Name Role Phone JAM MCDONNELL PA-C Primary Care Provider [phone] Reason for Visit and Chief Complaint HEART [...] Diagnosis HEART CENTER FOLLOW UP TIFFANY HOWARD [facility]- 3 1:47PM 2:40PM Insurance Includes: Active Insurance Policies Plan Name Member ID Group # Subscriber Relationship Effect cyn Dates 1 - [employer]AGE [id number] NIGHAT DELANEY Self Clinical Notes Includes: Clinical Notes from this encounter No Clinical Notes Recorded
--- OUTSIDE RECORDS SUMMARY | 2024-10-22 14:10 | XMS_ITS | Encounter Summary ---
Author Organization [facility] Address [address] [place] [address] Care Team Providers Care Principal Examiner Name Role Phone Yg Lee MD Primary Care Provider [phone] Shandra Ruffin APRN-[facility] Primary Care Provider Yg Lee MD Primary Care Provider [phone] Shandra Ruffin APRN-[facility] Primary Care Provider Yg Lee MD Primary Care Provider [phone] Shandra Ruffin APRN-[facility] Primary Care Provider Encounter Details Date Type Department Care Team (Late st Contact Info) Description 05/18/[address] [facility] [address] [place] [address] Mitchell Zamarripa MD [address] [place] [address] [place] [address] Social History Tobacco Use Types [...] a call. [place] Patient Call Back number: [phone]. documented in this encounter Plan of Treatment Not on file documented as of this encounter Visit Diagnoses Not on filedocumented in this encounter Care Teams Principal Examiner Relationship Specialty Start Date End Date Yg Lee MD [address] [place] [phone] PCP - General 10/28/11 05/23/19 Shandra Ruffin APRN-PUBLIC SPEAKING TEACHER [address] [place], [place] [phone] PCP - General 05/24/19 07/20/20 Yg Lee MD [address] [place], [place] [phone] PCP - General Internal Medicine 07/21/20 07/21/20 Shandra Ruffin APRN-PUBLIC SPEAKING TEACHER [address] [place], [place] [phone] PCP - General 07/22/20 11/15/21 Yg Lee MD [address] [place] [phone] PCP - General Internal Medicine 11/16/21 04/01/22 Shandra Ruffin APRN-PUBLIC SPEAKING TEACHER [address] [place], [place] [phone] PCP - General 04/02/22 documented as of this encounter
--- OUTSIDE RECORDS SUMMARY | 2024-10-22 14:10 | XMS_ITS | Encounter Summary ---
Author Organization [facility] Address [address] [place] [address] Care Team Providers Care Preschool Teacher Assistant Name Role Phone Jose Cruz Ledezma Primary Care Provider [phone] Yg Lee MD Primary Care Provider + Mitchell Zamarripa MD Unavailable [phone] Brit More CLUB LICENSEE Unavailable [phone] Cliff Ronquillo NP Unavailable [phone] Dick Aguilar Unavailable [phone] Gavin Sewell MD Unavailable [phone] Reason for Visit * Reason Onset Date Comments Scheduling Appointments 03/24/2020 Called f or DEXA appointment reminder Encounter Details Date Type Department Care Team (Late st Contact Info) Description 03/24/2020 Telephone [facility] [address] [place] [phone] [address] Hernandez RT Scheduling Appointments (Called for DEXA appointment reminder) Social History Tobacco Use Types Packs/Day Years Used Date Smoking Tobacco: Former Smokeless Tobacco: Never Alcohol Use Standard Drinks/Week Comments Yes 0 (1 standard drink = 0.6 oz pur e alcohol) occasional Comments No Sex and Gender Information Value Date Recorded Sex Assigned at Not on file Legal Sex Female 11:50 PM PHYSICIAN'S ASSISTANT Gender Identity Not on file Sexual [...] COVID: Suspected 07/22/2024 07/22/2024 07/22/2024 9:25 AM PHYSICIAN'S ASSISTANT documented as of this encounter Care Teams Preschool Teacher Assistant Relationship Specialty Start Date End Date Jose Cruz Ledezma PA [address] [place] [address] PCP - General 01/24/20 08/18/20 Yg Lee MD [address] [place] [phone] PCP - General Internal Medicine 08/19/20 Mitchell Zamarripa MD [address] [place] [phone] Referring Physician Rheumatology 03/11/22 Brit More NP [address] [place] [phone] Nurse Practitioner Cardiovascular Disease 03/11/22 Cliff Ronquillo NP [address] [place] [address] [address] [place] [address] Nurse Practitioner Nurse Practitioner 05/05/22 Dick Aguilar PA [address] [place] [address] [address] [place] [address] Physician Squad Sergeant Orthopedic Surgery 11/11/22 Gavin Sewell MD [address] [facility] [place] [address] Surgeon Orthopedic Surgery 12/24/22 documented as of this encounter
--- OUTSIDE RECORDS SUMMARY | 2024-10-22 14:10 | XMS_ITS | Clinical Summary ---
Author Organization [facility] Address [address] [place] [address] Phone Care Team Providers Care Coldfusion Name Role Phone JAM MCDONNELL PA-C Primary Care Provider [phone] Reason for Visit and Chief Complaint HOSPITAL [...] (adult) (pediatric), Essential (primary) hypertension TIFFANY Chaudhari [facility] 12/13/2023 Last Documented On 4 2:24PM ; [facility] Medical History [...] Diagnosis HOSPITAL FOLLOW UP EXAM TIFFANY SAUCEDO [facility]- 4 12:43PM 1:47PM Insurance Includes: Active Insurance Policies Plan Name Member ID Group # Subscriber Relationship Effect cyn Dates 1 - [employer] [id number] NIGHAT DELANEY Self Clinical Notes Includes: Clinical Notes from this encounter No Clinical Notes Recorded
--- OUTSIDE RECORDS SUMMARY | 2024-10-22 14:10 | XMS_ITS | Data Portability ---
Author Organization [facility]ITAL[facility]on[facility] [place] Address [address] [place] [address] Care Team Providers Care Interventional Radiology Rn Name Role Phone JAM LEDEZMA Primary Care Provider [phone] Assessment No assessment recorded. Plan of Treatment Reminders Order Date Submit Date Provider Last Modified By Organization Details Last Modified Time Details Appointments None recorde d. Lab PTH (parath yroid hormone ), intact + calcium , serum or plasma 2019 020 bbertoglioma [facility], [address] [place] [address], [address], [place], [address], 0 18:10:55 unliste d lab - complia nce drug analysi s, ur 2019 020 REUBEN [facility], [address] [place] [address], [address], [place], [address], 0 15:09:11 PTH (parath yroid hormone ), intact + calcium , serum or plasma 2019 020 hspraggs [facility], [address] [facility], [address], [place], [address], 0 15:26:23 Referral orthope dic referra l 2019 020 [facility], [address] [facility], [place], [address], 0 14:14:57 oncolog ist referra l - ANABEL 2019 020 ssaterri Rivero MD, [address] [facility] , [address], [place], [address], 0 11:06:22 dermato logist referra l 2019 [email or web address] Not available 0 14:26:11 Procedures None recorde d. Surgeries None recorde d. Imaging NM, bone scan 2019 020 bbertoglioma [facility] (Radiology), [address] [facility] , [place], [address], 0 15:52:19 CT, lower leg, w/ contras t 2019 020 [facility] (Scheduling), [address] [facility], [place], [address], 0 15:02:33 XR, lumbar spine 2019 020 REUBEN [facility], [address] [facility], [place], [address], 0 14:17:01 Medication Orders calcito marlo (salmon ) 200 unit/ac tuation nasal spray 2019 020 INTERFACE [id number], [address], [place], [place], [id number], 0 15:02:19 acetami nophen 300 mg-code ine 30 mg tablet 2019 020 dturnerma [id number], [address], [place], [place], [id number], 1 17:09:49 gabapen tin 100 mg capsule 2019 020 INTERFACE [id number], [address], [place], [place], [id number], 0 12:02:47 Patient TargetsNo targets recorded. 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 Referral for C omplaining of a rash Referring Physician: Jam Ledezma [facility], Encounter Date: 02/20/2020 ANABEL Referring Physician: Jam Ledezma [facility], Encounter Date: 02/20/2020 Orthopedic Referral for Path ological fracture of right tibia Referring Physician: Jam Ledezma [facility], Encounter Date: 04/22/2020 Results Created Date Observation Date Name Description Value Unit Range Abnormal Flag Note LastModifiedBy Organization Detail LastModifiedTime 12/27/19 20 12/28/2019 CMP, serum or plasm a glucose 91 mg/dL 65-99 Not Available [facility] ([facility]) [address] [place], [address], 12/28/2019 07:08:47 12/27/1912/28/2019 CMP, serum or plasm a BUN 15 mg/dL 6-24 Not Available [facility] ([facility]) [address] [place], [address], 12/28/2019 07:08:47 12/27/1912/28/2019 CMP, serum or plasm a creatinine 0.80 mg/dL 0.57-1 .00 Not Available [facility] ([facility]) [address] [place], [address], 12/28/2019 07:08:47 12/27/1912/28/2019 CMP, serum or plasm a eGFR if nonafricn AM 82 mL/mi n/1.7 3 >59 Not Available [facility] ([facility]) [address] [place], [address], 12/28/2019 07:08:47 12/27/1912/2712/28/2019 CMP, serum or plasm a eGFR if africn AM 95 mL/mi n/1.7 3 >59 Not Available [facility] ([facility]) [address] [facility] [place], [address], 12/28/2019 07:08:47 12/27/19 20 12/28/2019 CMP, serum or plasm a BUN/creatini ne ratio 19 9-23 Not Available [facility] ([facility]) [address] [facility] [place], [address], 12/28/2019 07:08:47 12/27/1912/28/2019 CMP, serum or plasm a sodium 138 mmol/ L 134-14 4 Not Available [facility] ([facility]) [address] [place], [address], 12/28/2019 07:08:47 12/27/19 20 12/28/2019 CMP, serum or plasm a potassium 4.2 mmol/ L 3.5-5. 2 Not Available [facility] ([facility]) [address] [place], [address], 12/28/2019 07:08:47 12/27/19 20 12/28/2019 CMP, serum or plasm a chloride 98 mmol/ L 96-106 Not Available [facility] ([facility]) [address] [place], [address], 12/28/2019 07:08:47 12/27/1912/28/2019 CMP, serum or plasm a carbon dioxide, total 23 mmol/ L 20-29 Not Available [facility] ([facility]) [address] [place], [address], 12/28/2019 07:08:47 12/27/1912/28/2019 CMP, serum or plasm a calcium 10.1 mg/dL 8.7-10 .2 Not Available [facility] ([facility]) [address] [place], [address], 12/28/2019 07:08:47 12/27/19 20 12/28/2019 CMP, serum or plasm a protein, total 7.3 g/dL 6.0-8. 5 Not Available [facility] ([facility]) [address] [place], [address], 12/28/2019 07:08:47 12/27/1912/28/2019 CMP, serum or plasm a albumin 4.8 g/dL 3.8-4. 9 Not Available [facility] ([facility]) [address] [place], [address], 12/28/2019 07:08:47 12/27/1912/28/2019 CMP, serum or plasm a globulin, total 2.5 g/dL 1.5-4. 5 Not Available [facility] ([facility]) [address] [place], [address], 12/28/2019 07:08:47 12/27/1912/28/2019 CMP, serum or plasm a A/G ratio 1.9 1.2-2. 2 Not Available [facility] ([facility]) [address] [place], [address], 12/28/2019 07:08:47 12/27/1912/28/2019 CMP, serum or plasm a bilirubin, total 0.4 mg/dL 0.0-1. 2 Not Available [facility] ([facility]) [address] [place], [address], 12/28/2019 07:08:47 12/27/1912/28/2019 CMP, serum or plasm a alkaline phosphatase 114 IU/L 39-117 Not Available [facility] ([facility]) [address] [place], [address], 12/28/2019 07:08:47 12/27/1912/28/2019 CMP, serum or plasm a AST (SGOT) 40 IU/L 0-40 Not Available [facility] ([facility]) [address], [place], [address], 12/28/2019 07:08:47 12/27/1912/28/2019 CMP, serum or plasm a ALT (SGPT) 29 IU/L 0-32 Not Available [facility] ([facility]) [address] [facility], [place], [address], 12/28/2019 07:08:47 12/27/19 20 12/28/2019 vitam in D, 25-hy droxy , total , serum vitamin D, 25-hydroxy 34.2 NG/mL 30.0-1 00.0 Vitam in D defic iency has been defin ed by the Insti tute of [facility] ine and an Endoc rine Socie ty pract ice guide line as a level of serum 25-OH vitam in D less than 20 ng/mL (1,2) . The Endoc rine Socie ty went on to furth er defin e vitam in D insuf ficie ncy as a level betwe en 21 and 29 ng/mL (2). 1. IOM (Inst itute of [facility] ine). 2010. Melany ry refer ence kristina es for calci um and D. Zackary baum [place]: The [facility] Press . 2. Patricia valdez MF, Jluis albert [place], [place] off-F errar i GARCIA, et al. Evalu ation , treat ment, and preve ntion of vitam in D defic iency : an Endoc rine Socie ty clini tessie pract ice guide line. JCEM. 2010; 96(7) :1911 -30. Not Available [facility] ([facility]) [address] [facility], [place], [address], 12/28/2019 07:08:48 02/11/2002/19/2020 drug scree n, urine [...] [place] [address] EXPEC JALYN ng/mg creat Morph ine 1924 EXPEC JALYN ng/mg creat Normo rphin e 572 EXPEC JALYN ng/mg creat Emery deine 1659 EXPEC JALYN ng/mg creat Sourc [...] expec jalyn metab olite of morph ine. Emery deine is an expec jalyn metab olite [...] Clobe tasol Ezeti mibe Fluti kelsie e Hayes chlor othia zide (Samantha nopri l-HCT Z) Hayes xychl oroqu ine Levot hyrox ine Lisin [...] ===== ===== ===== ===== === Not Available [facility] [address] [facility], [place], [address], 02/19/2020 15:09:11 02/11/20 20 02/19/2020 drug scree n, urine pdf . Not Available [facility] [address] [facility], [place], [address], 02/19/2020 15:09:11 04/28/20 20 04/28/2020 PTH (para [...] - 65 < 8.6 Not Available [facility] ([facility]) [address] [place], [address], 04/29/2020 17:08:21 04/28/20 20 04/29/2020 PTH (para thyro id hormo ne), intac t + calci um, serum or plasm a calcium TNP mg/dL No serum gel recei dillon. Not Available [facility] ([facility]) [address] [place], [address], 04/29/2020 17:08:21 04/28/20 20 04/29/2020 PTH (para thyro id hormo ne), intac t + calci um, serum or plasm a PTH, intact 63 pg/mL 15-65 Not Available [facility] ([facility]) [address] [place], [address], 04/29/2020 17:08:21 04/28/20 20 04/29/2020 speci men statu s repor t specimen status report TNP No serum gel recei dillon. TEST: 25390 6 Calci um Panel : 91632 1 Not Available [facility] ([facility]) [address] [place], [address], 04/29/2020 17:08:22 04/30/2005/01/2020 TSH + free T4, serum TSH 4.230 uIU/m L 0.450- 4.500 Not Available [facility] ([facility]) [address] [place], [address], 05/01/2020 08:17:01 04/30/2005/01/2020 TSH + free T4, serum T4,free(dire ct) 1.18 NG/dL 0.82-1 .77 Not Available [facility] ([facility]) [address] [place], [address], 05/01/2020 08:17:01 04/30/2005/01/2020 CBC w/ auto diff WBC 5.2 x10e3 /uL 3.4-10 .8 Not Available [facility] ([facility]) [address] [facility], [place], [address], 05/01/2020 08:17:02 04/30/2005/01/2020 CBC w/ auto diff RBC 4.16 x10e6 /uL 3.77-5 .28 Not Available [facility] ([facility]) [address] [facility], [place], [address], 05/01/2020 08:17:02 04/30/2005/01/2020 CBC w/ auto diff hemoglobin 13.9 g/dL 11.1-1 5.9 Not Available [facility] ([facility]) [address] [facility], [place], [address], 05/01/2020 08:17:02 04/30/2005/01/2020 CBC w/ auto diff hematocrit 39.7 % 34.0-4 6.6 Not Available [facility] ([facility]) [address] [facility], [place], [address], 05/01/2020 08:17:02 04/30/2005/01/2020 CBC w/ auto diff MCV 95 fL 79-97 Not Available [facility] ([facility]) [address] [place], [address], 05/01/2020 08:17:02 04/30/2005/01/2020 CBC w/ auto diff MCH 33.4 pg 26.6-3 3.0 above high normal Not Available [facility] ([facility]) [address] [place], [address], 05/01/2020 08:17:02 04/30/2005/01/2020 CBC w/ auto diff MCHC 35.0 g/dL 31.5-3 5.7 Not Available [facility] ([facility]) [address] [facility], [place], [address], 05/01/2020 08:17:02 04/30/2005/01/2020 CBC w/ auto diff RDW 13.4 % 11.7-1 5.4 Not Available [facility] ([facility]) [address] [facility], [place], [address], 05/01/2020 08:17:02 04/30/2005/01/2020 CBC w/ auto diff platelets 296 x10e3 /uL 150-45 0 Not Available [facility] ([facility]) [address] [facility], [place], [address], 05/01/2020 08:17:02 04/30/2005/01/2020 CBC w/ auto diff neutrophils 72 % not estab. Not Available [facility] ([facility]) [address] [facility], [place], [address], 05/01/2020 08:17:02 04/30/2005/01/2020 CBC w/ auto diff lymphs 14 % not estab. Not Available [facility] ([facility]) [address] [facility], [place], [address], 05/01/2020 08:17:02 04/30/2005/01/2020 CBC w/ auto diff monocytes 7 % not estab. Not Available [facility] ([facility]) [address] [facility], [place], [address], 05/01/2020 08:17:02 04/30/2005/01/2020 CBC w/ auto diff eos 4 % not estab. Not Available [facility] ([facility]) [address] [facility], [place], [address], 05/01/2020 08:17:02 04/30/2005/01/2020 CBC w/ auto diff basos 2 % not estab. Not Available [facility] ([facility]) [address] [facility], [place], [address], 05/01/2020 08:17:02 04/30/2005/01/2020 CBC w/ auto diff immature cells [employer] Not Available [facility] ([facility]) [address] [place], [address], 05/01/2020 08:17:02 04/30/2005/01/2020 CBC w/ auto diff neutrophils (absolute) 3.8 x10e3 /uL 1.4-7. 0 Not Available [facility] ([facility]) [address] [place], [address], 05/01/2020 08:17:02 04/30/2005/01/2020 CBC w/ auto diff lymphs (absolute) 0.7 x10e3 /uL 0.7-3. 1 Not Available [facility] ([facility]) [address] [place], [address], 05/01/2020 08:17:02 04/30/2005/01/2020 CBC w/ auto diff monocytes(ab solute) 0.4 x10e3 /uL 0.1-0. 9 Not Available [facility] ([facility]) [address] [place], [address], 05/01/2020 08:17:02 04/30/2005/01/2020 CBC w/ auto diff eos (absolute) 0.2 x10e3 /uL 0.0-0. 4 Not Available [facility] ([facility]) [address] [place], [address], 05/01/2020 08:17:02 04/30/2005/01/2020 CBC w/ auto diff baso (absolute) 0.1 x10e3 /uL 0.0-0. 2 Not Available [facility] ([facility]) [address] [place], [address], 05/01/2020 08:17:02 04/30/2005/01/2020 CBC w/ auto diff immature granulocytes 1 % not estab. Not Available [facility] ([facility]) [address] [facility] [place], [address], 05/01/2020 08:17:02 04/30/2005/01/2020 CBC w/ auto diff immature grans (abs) 0.0 x10e3 /uL 0.0-0. 1 Not Available [facility] ([facility]) [address] [facility], [place], [address], 05/01/2020 08:17:02 04/30/2005/01/2020 CBC w/ auto diff NRBC [employer] Not Available [facility] ([facility]) [address] [facility] [place], [address], 05/01/2020 08:17:02 04/30/2005/01/2020 CBC w/ auto diff hematology comments: [employer] Not Available [facility] ([facility]) [address] [facility], [place], [address], 05/01/2020 08:17:02 04/30/2005/01/2020 CMP, serum or plasm a glucose 109 mg/dL 65-99 above high normal Not Available [facility] ([facility]) [address] [place], [address], 05/01/2020 08:17:03 04/30/2005/01/2020 CMP, serum or plasm a BUN 12 mg/dL 6-24 Not Available [facility] ([facility]) [address] [place], [address], 05/01/2020 08:17:03 04/30/2005/01/2020 CMP, serum or plasm a creatinine 0.65 mg/dL 0.57-1 .00 Not Available [facility] ([facility]) [address] [place], [address], 05/01/2020 08:17:03 04/30/2005/01/2020 CMP, serum or plasm a eGFR if nonafricn AM 99 mL/mi n/1.7 3 >59 Not Available [facility] ([facility]) [address] [facility] [place], [address], 05/01/2020 08:17:03 04/30/20 20 05/01/2020 CMP, serum or plasm a eGFR if africn AM 114 mL/mi n/1.7 3 >59 Not Available [facility] ([facility]) [address] [facility] [place], [address], 05/01/2020 08:17:03 04/30/20 20 05/01/2020 CMP, serum or plasm a BUN/creatini ne ratio 18 9-23 Not Available [facility] ([facility]) [address] [facility] [place], [address], 05/01/2020 08:17:03 04/30/2005/01/2020 CMP, serum or plasm a sodium 139 mmol/ L 134-14 4 Not Available [facility] ([facility]) [address] [facility] [place], [address], 05/01/2020 08:17:03 04/30/2005/01/2020 CMP, serum or plasm a potassium 4.4 mmol/ L 3.5-5. 2 Not Available [facility] ([facility]) [address] [facility] [place], [address], 05/01/2020 08:17:03 04/30/2005/01/2020 CMP, serum or plasm a chloride 96 mmol/ L 96-106 Not Available [facility] ([facility]) [address] [facility] [place], [address], 05/01/2020 08:17:03 04/30/2005/01/2020 CMP, serum or plasm a carbon dioxide, total 27 mmol/ L 20-29 Not Available [facility] ([facility]) [address] [facility] [place], [address], 05/01/2020 08:17:03 04/30/2005/01/2020 CMP, serum or plasm a calcium 10.0 mg/dL 8.7-10 .2 Not Available [facility] ([facility]) [address] [place], [address], 05/01/2020 08:17:03 04/30/2005/01/2020 CMP, serum or plasm a protein, total 7.0 g/dL 6.0-8. 5 Not Available [facility] ([facility]) [address] [place], [address], 05/01/2020 08:17:03 04/30/2005/01/2020 CMP, serum or plasm a albumin 4.6 g/dL 3.8-4. 9 Not Available [facility] ([facility]) [address] [place], [address], 05/01/2020 08:17:03 04/30/2005/01/2020 CMP, serum or plasm a globulin, total 2.4 g/dL 1.5-4. 5 Not Available [facility] ([facility]) [address] [place], [address], 05/01/2020 08:17:03 04/30/2005/01/2020 CMP, serum or plasm a A/G ratio 1.9 1.2-2. 2 Not Available [facility] ([facility]) [address] [place], [address], 05/01/2020 08:17:03 04/30/2005/01/2020 CMP, serum or plasm a bilirubin, total 0.5 mg/dL 0.0-1. 2 Not Available [facility] ([facility]) [address] [place], [address], 05/01/2020 08:17:03 04/30/2005/01/2020 CMP, serum or plasm a alkaline phosphatase 231 IU/L 39-117 above high normal Not Available [facility] ([facility]) [address] [facility], [place], [address], 05/01/2020 08:17:03 04/30/20 20 05/01/2020 CMP, serum or plasm a AST (SGOT) 83 IU/L 0-40 above high normal Not Available [facility] ([facility]) [address] [facility], [place], [address], 05/01/2020 08:17:03 04/30/20 20 05/01/2020 CMP, serum or plasm a ALT (SGPT) 63 IU/L 0-32 above high normal Not Available [facility] ([facility]) [address] [facility], [place], [address], 05/01/2020 08:17:03 04/30/20 20 04/30/2020 urina lysis , dipst ick Leukocytes Negati ve Not Available In-Office Order Internal Use Only DO Not Attach Compendium DO Not Attach Compendium, Do Not Delete/merge, [id number] 04/30/2020 11:03:06 04/30/2004/30/2020 urina lysis , dipst ick Nitrite negati ve Not Available In-Office Order Internal Use Only DO Not Attach Compendium DO Not Attach Compendium, Do Not Delete/merge, [id number] 04/30/2020 11:03:06 04/30/2004/30/2020 urina lysis , dipst ick Urobilinogen .2 Not Available In-Of fice Order Internal Use Only DO Not Attach Compendium DO Not Attach Compendium, Do Not Delete/merge, [id number] 04/30/2020 11:03:06 04/30/2004/30/2020 urina lysis , dipst ick Protein Negati ve Not Available In-Office Order Internal Use Only DO Not Attach Compendium DO Not Attach Compendium, Do Not Delete/merge, [id number] 04/30/2020 11:03:06 04/30/20 20 04/30/2020 urina lysis , dipst ick pH 6.5 Not Available In-Office Order Internal Use Only DO Not Attach Compendium DO Not Attach Compendium, Do Not Delete/merge, [id number] 04/30/2020 11:03:06 04/30/20 20 04/30/2020 urina lysis , dipst ick Blood Negati ve Not Available In-Office Order Internal Use Only DO Not Attach Compendium DO Not Attach Compendium, Do Not Delete/merge, [id number] 04/30/2020 11:03:06 04/30/20 20 04/30/2020 urina lysis , dipst ick Specific [place] 1.020 Not Available In-Off ice Order Internal [...] r spine No observ ation record ed. [address], [place], [address], 02/07/2020 17:22:18 02/19/20 20 02/19/2020 NM, bone scan No observ ation record ed. [facility] [address] [facility] [place], [address], 02/19/2020 17:52:46 03/25/20 20 03/25/2020 bone densi ty No observ [facility]ion record ed. [facility] [address] [facility] [place], [address], 03/28/2020 12:17:03 09/12/19 21 09/10/2020 cardi ac stres s test No observ ation record ed. [facility] [address], [place], [address], 09/12/2020 16:33:08 12/18/19 21 12/09/2020 pulmo nary funct ion test* No observ ation record ed. [facility] [address], [place], [address], 12/17/2020 15:14:10 01/03/20 21 01/02/2021 US, duple x, renal arter y No observ ation record ed. [facility] [address], [place], [address], 01/02/2021 14:47:22 01/03/20 21 01/02/2021 stres s echoc ardio gram No observ ation record ed. [facility] [address], [place], [address], 01/02/2021 14:47:41 11/28/19 24 11/25/2023 US, echoc ardio gram, trans esoph ageal No observ ation record ed. [facility] [address] [facility] [address], [place], [address], 12/08/2023 11:32:40 01/16/20 24 11/23/2023 CT, angio gram, chest , w/ contr ast No observ ation record ed. mmetias [address] [place], [address], 01/16/2024 15:25:06 Result Notes None recorded. Problems Name Problem SNOMED Code Status Onset Date Resolution Date Notes Provider Name and Address Organization Details Recorded Time Drug therapy finding 715215567 Active 2015 CHIO Niño, [place] - [facility] 0 11:49:27 Enzyme level - finding 149080452 Active 2017 CHIO Niño[place] [facility] 0 11:49:27 Fibromyalgia 019697747 Active 2011 Kallie Sloan [place] null, [place] [facility] 0 11:49:27 Hypertensive disorder 21925403 Active 2012 Kallie S[place] [facility] 0 11:49:27 Osteopenia 050169338 Active 2011 Kallie S[place] [facility] 0 11:49:27 Rheumatoid arthritis 58613530 Active 2017 Kallie S[place] [facility] 0 11:49:27 Problem Notes None recorded. Procedures Surgical History Date Name Laterality Status Provider Name and Address Organization Details Recorded Time hysterectomy completed Anabela Blanc [place] - [facility] 09/06/2019 12:01:29 Imaging Results Imaging Date Name Status LastModified by Organization Details LastModified Time 01/28/2020 XR, lumbar spine completed [facility] [place] [address] [place], [address], 02/07/2020 17:22:18 02/19/2020 NM, [facility] [address] [place], [address], 02/19/2020 17:52:46 03/25/2020 bone density completed [facility] [address] [place], [address], 03/28/2020 12:17:03 09/10/2020 cardiac stress test completed [facility] [address] [facility], [place], [address], 09/12/2020 16:33:08 12/09/2020 pulmonary function test* completed [facility] ([facility]) [address] [facility], [place], [address], 12/17/2020 15:14:10 01/02/2021 US, duplex, renal artery completed [facility] ([facility] [address] [facility], [place], [address], 01/02/2021 14:47:22 01/02/2021 stress echocardiogram completed [facility] ([facility] [address] [facility], [place], [address], 01/02/2021 14:47:41 11/25/2023 US, echocardiogram, transesophageal completed [facility] [address] [facility] [place], [address], 12/08/2023 11:32:40 11/23/2023 CT, angiogram, chest, w/ contrast completed [facility] [address] [facility] [place], [address], 01/16/2024 15:25:06 Procedure Notes None recorded. Medical Equipment None Reported. Allergies Allergen ID Allergen Name Allergen Category Reaction Reaction Severity Criticality Documentation Date Start Date Code Code System Note Provider Name and Address Organization Details Recorded Time 048121 Substance with sulfonami de structure and antibacte rial mechanism of action (substanc e) medicatio n hives Not available Not available 09/06/2019 [id number] [id number] SNOMED Not Available Not Available Not Available 040068 Cipro medicatio n Not available Not available Not available 09/06/201933054 3 RxNorm Not Available Not Available Not Available [id number] ciproflox acin medicatio n myalgias (muscle pain) [...] DateTime 01/25/2020 157.48 cm Kallie Sloan MA [facility] 01/25/20 20 11:49:06 Date Recorded Body height Provider Name an d Address Organization Details Last Updated DateTime 01/30/2020 157.48 cm Anabela Blanc MA [facility] 01/30/2020 14:32:47 Date Recorded Body height Body mass index (BMI) Body weight Body temperature Oxygen saturation Oxygen saturation in Arterial blood by Pulse oximetry Heart rate Systolic blood pressure Diastolic blood pressure Provider Name and Address Organization Details Last Updated DateTime 0 157.48 cm 31.1 kg/m2 13950.7 g 98.1 [degF] 93 % 93 % 83 /min 108 mm[Hg] 82 mm[Hg] Anabela Blanc MA [facility] 0 10:40:52 Date Recorded Body height Body mass index (BMI) Body weight Body temperature Oxygen saturation Oxygen saturation in Arterial blood by Pulse oximetry Heart rate Systolic blood pressure Diastolic blood pressure Provider Name and Address Organization Details Last Updated DateTime 0 157.48 cm 31.3 kg/m2 09967 g 98 [degF] 98 % 98 % 80 /min 142 mm[Hg] 90 mm[Hg] Kallie Sloan MA [facility] 0 14:59:34 Social History Question Answer Notes LastModified by Organizat ion Details LastModified Time Tobacco Smoking Status Former Smoker 2012 Anabela Blanc MA null, [facility] 09/06/2019 12:01:14 In The 14 Days Before Symptom Onset, Have You Had Close Contact With A Laboratory-confir med COVID-19 While That Case Was Ill? No Information not available 11/26/2019 If Patient Spent Time In [facility] - Does The Patient Live In [facility]? No Information not available 11/26/2019 In The 14 Days Before Symptom Onset, Have You Had Close Contact With A Person Who Is Under Investigation For COVID-19 While That Person Was Ill? No Information not available 11/26/2019 In The 14 Days Before Symptom Onset, Did The Patient Spend Time In [facility]? No Information not available 11/26/2019 Have You [...] Response Coronary Artery Disease N Other N Atrial Fibrillation Y High Blood Pressure Y Depression Y COPD N Blood Clots N Anxiety Disorder Y Muscle, Joint, or Bone Problems Y Acid Reflux (GERD) Y Cancer N Stroke Y ADHD N High Cholesterol Y Liver Disease N Schizophrenia N Headaches N Thyroid Problems Y Kidney or Bladder Problems N GI Problems Y Eating Disorder N Skin Problems Y Anemia N Heart Attack (ID) N Diabetes N Seizures/Epilepsy N Asthma N Allergies Y Substance Abuse N Hepatitis N Heart Failure N Osteoporosis Y Gynecological HistoryNo gynecological history recorded. Obstetrics History GPAL:G 0 P 0 0 0 0 Past Encounters Encounter ID Performer Location Encounter Start Date Encounter Closed Date Diagnosis/Indication Diagnosis SNOMED-CT Code Diagnosis ICD10 Code Diagnosis Note [id number] Anabela Blanc MA [facility] [address] [place] [address] 09/06/2019 11:41:44 09/07/2019 16:55:26 Chronic depression 698810206 F34.1 Long-term drug therapy 838399813 Z79.899 Essential hypertension 79817418 I10 [id number] Jam Ledezma PA-C [facility] [address] [place] [address] 09/13/2019 11:39:42 09/13/2019 12:10:30 Essential hypertension 61660072 I10 [id number] Jam Ledezma PA-C [facility] [address] [place] [address] 11/26/2019 10:49:30 11/26/2019 12:28:39 Essential hypertension 55707169 I10 Mitral valve prolapse 40 3868205 I34.1 History of transient ischemic attack 141566373 Z86.73 Seasonal a llergic rhinitis 740518728 J30.2 [id number] Jam Ledezma PA-C [facility] [address] [place] [address] 12/10/2019 10:48:06 12/12/2019 11:23:50 Essential hypertension 86754592 I10 Chronic depression 52445 0009 F34.1 Nausea and vomiting 1692 1999 R11.2 [id number] Jam Ledezma PA-C [facility] [address] [place] [address] 12/11/2019 13:09:52 12/12/2019 11:45:12 Mixed hyperlipidemia 209292182 E78.2 [id number] Jam Ledezma PA-C [facility] [address] [place] [address] 12/27/2019 11:02:54 12/28/2019 08:34:57 Idiopathic hypercalcemia 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 E83.52 Seasonal a llergic rhinitis 259750120 J30.2 [id number] Jam Ledezma PA-C [facility] [address] [place] [address] 01/25/2020 10:10:00 01/28/2020 08:04:28 Lumbar radiculopathy 075557485 M54.16 [id number] KELLEN Liao [facility] [address] [place] [address] 01/30/2020 11:07:31 01/31/2020 07:58:24 Idiopathic hypercalcemia 335463609 E83.52 Stress fra cture of tibia 962967719 M84.361A Osteoporosis 65963145 M8 1.0 [id number] Anabela Blanc MA [facility] [address] [place] [address] 02/11/2020 10:34:29 02/11/2020 15:10:24 Pain in right lower limb 760541913 M79.604 Long-term drug therapy 723173533 Z79.623 [id number] Jam Ledezma PA-C [facility] [address] [place] [address] 02/20/2020 14:44:57 02/20/2020 15:38:07 Pathological fracture of right tibia 3541718873 6755293 M84.461G Complaining of a rash 16 6843483 R21 [id number] Jam Ledezma PA-C [facility] [address] [place] [address] 04/22/2020 09:33:20 04/23/2020 12:40:11 Osteopenia 160607652 M85.88 Pathologic al fracture of right tibia 0176174523 6180476 M84.461G Health Concerns Section Related Observation LastModified by Organization Detai ls LastModified Time None Recorded Concern Status LastModified by Organization Details LastModified Time None Recorded Advance Directives Directive None Recorded Payers Encounter Date Sequence Insurance Name Policy Number Policy Bright Covered Member ID Bright Member ID Guarantor Name 01/25/2020 1 [facility] PRIOR TO 02/26/2021 (MEDICAID REPLACEMENT - HMO) Antoinette Da Silva [id number] Antoinette Da Silva 01/30/2020 1 [facility] PRIOR TO 02/26/2021 (MEDICAID REPLACEMENT - HMO) Antoinette Da Silva [id number] Antoinette Da Silva 02/11/2020 1 [facility] PRIOR TO 02/26/2021 (MEDICAID REPLACEMENT - HMO) Antoinette Da Silva [id number] Antoinette Da Silva 02/20/2020 1 [facility] PRIOR TO 02/26/2021 (MEDICAID REPLACEMENT - HMO) Antoinette Da Silva [id number] Antoinette Da Silva 04/22/2020 1 [facility] PRIOR TO 02/26/2021 (MEDICAID REPLACEMENT - HMO) Antoinette Da Silva [id number] Antoinette Da Silva Notes Date Note Type [...] osteoporosis Jam Ledezma PA-C Attn: [address] [place], [address], [facility] 01/25/2020 12:05:40 01/30/2020 text/html [...] osteoporosis... Jam Ledezma PA-C Attn: [address] [place], [address], [facility] 01/30/2020 15:08:21 02/11/2020 text/html started january 17..pain in medial lower rt leg..no known injury. went to ER xrays were done. findings of an old healed fracture that the patient denies ever having broken. pain has not improved may have worsened. Anabela Blanc MA [facility], [facility] 02/11/2020 11:25:00 02/20/2020 text/html bone scan reviewed..rib with uptake and rt tib fib with intense uptake they say likely posttraumatic but she denies injury. now skin on forearms are red and that is pruritic not painful Jam Ledezma PA-C Attn: [address] [place], [address], [facility] 02/20/2020 15:32:42 04/22/2020 text/html follow up on leg fractures that dont belong... Jam Ledezma PA-C Attn: [address] [facility], [place], [address], [facility] 04/22/2020 17:56:09 OBGyn Episode No OBEpisode recorded.
--- OUTSIDE RECORDS SUMMARY | 2024-10-22 14:10 | XMS_ITS | Clinical Summary ---
Author Organization [facility] Address [address] [place] [address] Care Team Providers Care Plant Maintenance Technician Name Role Phone Mariah Adams MD Primary Care Provider + Mitchell Zamarripa MD Unavailable [phone] Brit More NP Unavailable [phone] Cliff Ronquillo NP Unavailable Dick Aguilar Unavailable [phone] Gavin Sewell MD Unavailable [phone] Allergies Active Allergy Reactions Criticality Noted Date [...] 1 tablet (100 mcg total) by mouth early childhood aide classroom before breakfast 1 Active celecoxib (CeleBREX) 100 [...] to 14 days 30 tablet 5 025 Active Problems Problem Noted Date Diagnosed Date Calculus of gallbladder with cholecystitis without biliary obstruction 08/14/2024 Assessment & Plan (08/14/2024 9:48 AM MANAGER IT SECURITY): The patient likely has chronic cholecystitis given [...] atrial fibrillation 11/25/2023 ACS (acute coronary syndrome) ([facility]/HCC) 11/23/19 24 Persistent atrial fibrillation 11/22/2023 Assessment [...] (04/23/2022): Added automatically from request for surgery [id number] Posterior tibial tendon dysfunction 03/02/2022 Flat foot [...] 01/04/2018 Assessment & Plan (09/19/2018 1:30 PM MANAGER IT SECURITY): Low disease activity today on exam. Take [...] Department Care Team Description 09/10/2024 9:16 AM MANAGER IT SECURITY Anesthesia Event [facility] Operating Room [address] [place] [address] Tonia Gutierrez MD Reynolds, Ethan Emerson, MD 09/10/2024 9:15 AM MANAGER IT SECURITY - 09/10/2024 10:45 AM MANAGER IT SECURITY Surgery [facility] Operating Room [address] [place] [address] Vignesh Hawkins MD LAPAROSCOPIC CHOLECYSTECTOMY 09/10/2024 8:13 AM MANAGER IT SECURITY - 09/10/2024 2:39 PM MANAGER IT SECURITY Hospital Encounter [facility] Operating Room [address] [place] [address] Vignesh Hawkins MD Calculus of gallbladder with cholecystitis without biliary obstruction, unspecified cholecystitis acuity Discharge Disposition: Discharge to home or self care 08/14/2024 9:30 AM MANAGER IT SECURITY Office Visit [facility] [address] [facility] [address] [place] [address] Vignesh Hawkins MD Calculus of gallbladder with cholecystitis without biliary obstruction, unspecified cholecystitis acuity 07/24/2024 7:58 AM MANAGER IT SECURITY - 07/24/2024 11:59 PM MANAGER IT SECURITY Hospital Encounter [facility] Imaging Center [address] [place] [address] Hepatomegaly, not elsewhere classified; Hepatomegaly Discharge Disposition: Discharge to home or self care 07/22/2024 8:25 AM MANAGER IT SECURITY - 07/22/2024 10:10 AM MANAGER IT SECURITY Emergency [facility] Emergency Department 1 [place] [address] Mike Suarez MD Bronchitis (Primary Dx) Discharge Disposition: Discharge to home or self care from Last 3 Months Immunizations Immunization Administration Dates Next Due Influenza, Unspecified 05/29/2022 [...] often do you attend chur ch or temple services? Never 12/23/2022 Do you belong to any clubs o r organizations such as nondenominational groups, unions, fraternal or athletic groups, or [...] staff should administer the PHQ-9) 0 11/23/2023 [facility] of Occupat ional Health - Occupational Stress [...] place to sleep or slept in a halfway (including now)? No 12/23/2022 Personal Safety Answer Date Recorded Have you ever been in or are you currently in a harmful physical or emotional relationship or is someone making you feel afraid or unsafe? Denies 09/10/2024 Comments No Sex and Gender Information Value Date Recorded Sex Assigned at Not on file Legal Sex Female 11:50 PM MANAGER IT SECURITY Gender Identity Not on file Sexual Orientation Not on file Obstetrics History Last Filed Vital Signs Vital Sign Reading Time Taken Comments Blood Pressure 119/69 09/10/2024 2:00 PM MANAGER IT SECURITY Pulse 69 09/10/2024 2:00 PM MANAGER IT SECURITY Temperature 36.4 C (97.6 F) 09/10/2024 2:00 PM MANAGER IT SECURITY Respiratory Rate 16 09/10/2024 2:00 PM MANAGER IT SECURITY Oxygen Saturation 94% 09/10/2024 2:00 PM MANAGER IT SECURITY Inhaled Oxygen Concentration - - Weight 67.6 kg (149 lb 0.5 oz) 09/10/2024 8:15 A M MANAGER IT SECURITY Height 154.9 cm (5' 1 ) 09/10/2024 8:15 AM MANAGER IT SECURITY Body Mass Index 28.16 09/10/2024 8:15 AM MANAGER IT SECURITY Plan of Treatment Health Maintenance Due Date Last Done Comments Colon Cancer Screening-Colonoscopy 1960 Hepatitis B Screening 1980 Regular Well Visit/Exam 18-64 1980 Zoster Vaccine (1 of 2) 2012 DTaP/Tdap/Td Vaccine (2 - Td or Tdap) 06/15/2021 06/15/2011 Covid-19 Vaccine (3 - 2023-2 5 season) 2024 04/22/2021, 04/01/2021 Influenza Vaccine (#1) 2024 , 05/29/2022, 08/14/2021, Additional history exists Depression Screening 11/21/2024 11/22/2023, 12/21/2022, 12/21/2022, Additional history exists Breast Cancer Screening-Mammogram 05/16/2025 05/16/2024, 05/16/2024, 10/08/2022, Additional history exists Pneumococcal vaccine <65 (3 of 3 - PCV20 or PCV21) 10/20/2025 10/20/2020, 07/18/2017, 06/15/2011 Hepatitis C Screening Completed 11/01/2014 Medical Devices Implanted Type Area Shoemaker Custom Device Identifier Shelf Expiration Date Model / Serial / Lot Exactech Restrictor Cement Cemex Small Od13mm Tpa-13 - [id number] Implanted:Qty: 1 on 05/04/2022 by Gavin Sewell MD at [facility] Left: Shoulder Exactech 08/28/2023 TPA-13 / / [id number] Exactech Equinoxe Reverse Shoulder +0mm Tray Humeral Adapter 320-10-00 - [id number] - [id number] Implanted:Qty: 1 on 05/04/2022 by Gavin Sewell MD at [facility] Exactech [id number] 04/07/2032 320-10-00 / [id number] / Exactech Equinoxe 40mm Small Reverse Constrain Shoulder +2.5mm Liner 320-40-13 - [id number] - [id number] Implanted:Qty: 1 on 05/04/2022 by Gavin Sewell MD at [facility] Ex[employer]ech 01/31/2024 320-40-13 / [id number] / Exactech Equinoxe Lock Reverse Shoulder Glenosphere Screw Bone 320-15-05 - [id number] - [id number] Implanted:Qty: 1 on 05/04/2022 by Gavin Sewell MD at [facility] Left: Shoulder [employer]ech 03/09/2027 320-15-05 / [id number] / Exactech Reverse Torque Define Shoulder Kit Screw 320-20-00 - [id number] - [id number] Implanted:Qty: 1 on 05/04/2022 by Gavin Sewell MD at [facility] Left: Shoulder [employer]ech 02/03/2027 320-20-00 / [id number] / Exactech Equinoxe Small Reverse Superior Posterior Augment Shoulder Left 320-35-07 - [id number] - [id number] Implanted:Qty: 1 on 05/04/2022 by Gavin Sewell MD at [facility] Left: Shoulder [employer] [id number] 04/08/2031 320-35-07 / [id number] / Exactech Equinoxe 10mm Stem Humeral Sterile 300-- - [id number] - [id number] Implanted:Qty: 1 on 05/04/2022 by Gavin Sewell MD at [facility] Left: Shoulder [employer]ech [id number] 09/07/2031 300-- / [id number] / [employer] Cement Bone Simplex Gentamicin High Viscosity 40gm 6195-1-001 - [id number] Implanted:Qty: 1 on 05/04/2022 by Gavin Sewell MD at [facility] Left: Shoulder [employer] 09/28/2023 6195-1-001 / / [id number] Exactech Equinoxe 40mm 24.3mm Small Reverse Shoulder Sphere Glenoid 320-31-40 - [id number] - [id number] Implanted:Qty: 1 on 05/04/2022 by Gavin Sewell MD at [facility] Left: Shoulder [employer]ech [id number] 12/11/2030 320-31-40 / [id number] / Exactech Equinoxe 4.5mm 38mm Kit Compression Lock Cap Reverse Shoulder 320-20-38 - [id number] - [id number] Implanted:Qty: 1 on 05/04/2022 by Gavin Sewell MD at [facility] Left: Shoulder [employer] [id number] 01/12/2027 320-20-38 / [id number] / Exactech Equinoxe 4.5mm 34mm Kit Compression Lock Cap Reverse Shoulder 320-20-34 - [id number] - [id number] Implanted:Qty: 1 on 05/04/2022 by Gavin Sewell MD at [facility] Left: Shoulder [employer]ech [id number] 07/14/2026 320-20-34 / [id number] / [employer] Insert Tibial Knee Fixed Lm Posterior Stabilized Attune 7mm Size 5 Polyethylene [id number] - [id number] Implanted:Qty: 1 on 11/10/2022 by Gavin Sewell MD at [facility] Left: Knee [employer] 07/28/2030 [id number] / / [id number] [employer] Attune Cruciate Retain Cementless Knee Left 5 Component Femoral [id number] - [id number] Implanted:Qty: 1 on 11/10/2022 by Gavin Sewell MD at [facility] Left: Knee [employer] 04/28/2032 [id number] / / [id number] [employer] Attune Fb Tib Base Sz 5 Por [id number] - [id number] Implanted:Qty: 1 on 11/10/2022 by Gavin Sewell MD at [facility] Left: Knee [employer] 03/28/2032 [id number] / / [id number] Procedures Procedure Name Priority Date/Time Associated Diagnosis Comments SURGICAL PATHOLOGY Routine 09/10/2024 10:29 AM MANAGER IT SECURITY Calculus of gallbladder with cholecystitis without biliary obstruction, unspecified cholecystitis acuity MT AN ELECTIVE ENDOTRACHEAL AIRWAY Routine 09/10/2024 9:36 AM MANAGER IT SECURITY LAPAROSCOPIC CHOLECYSTECTOMY 09/10/2024 9:02 AM MANAGER IT SECURITY Calculus of gallbladder with cholecystitis without biliary obstruction, unspecified cholecystitis acuity EGFR STAT 09/10/2024 8:47 AM MANAGER IT SECURITY DIFFERENTIAL AUTO STAT 09/10/2024 8:4 7 AM MANAGER IT SECURITY ANTIBODY SCREEN STAT 09/10/2024 8:47 AM MANAGER IT SECURITY ABO/RH STAT 09/10/2024 8:47 AM MANAGER IT SECURITY TYPE AND SCREEN STAT 09/10/2024 8:47 AM MANAGER IT SECURITY CBC WITH AUTO DIFFERENTIAL STAT 09/10/2024 8:47 AM MANAGER IT SECURITY COMPREHENSIVE METABOLIC PANEL STAT 09/10/2024 8:47 AM MANAGER IT SECURITY B ABO / RH CONFIRMATION TESTING STAT 09/10/2024 8:45 AM MANAGER IT SECURITY US ABDOMEN COMPLETE Schedule Routine, Read Routine (OP Routine) 07/24/2024 9:00 AM MANAGER IT SECURITY Hepatomegaly XR CHEST 1 VIEW ED 07/22/2024 9:06 AM MANAGER IT SECURITY EGFR STAT 07/22/2024 8:48 AM MANAGER IT SECURITY DIFFERENTIAL AUTO STAT 07/22/2024 8:4 8 AM MANAGER IT SECURITY MAGNESIUM Routine 07/22/2024 8:48 AM MANAGER IT SECURITY COMPREHENSIVE METABOLIC PANEL STAT 07/22/2024 8:48 AM MANAGER IT SECURITY CBC WITH AUTO DIFFERENTIAL STAT 07/22/2024 8:48 AM MANAGER IT SECURITY INFLUENZA A/B, RSV, AND COVID-19 PCR Routine 07/22/2024 8:41 AM MANAGER IT SECURITY SERUM HEPATITIS C AB Routine 11/01/2014 8:32 AM MANAGER IT SECURITY DIGITAL MAMMOGRAPHY Routine 12/11/2013 11:01 AM CDT from Last 3 Months or Most Recently Relevant to Health Maintenance Results * Surgical pathology (09/10/2024 10:29 AM MANAGER IT SECURITY) Tissue (Gallbladder) 09/10/2024 9:51 AM MANAGER IT SECURITY Narrative PATHOLOGY [facility] ([place]) - 09/11/2024 3:50 PM MANAGER IT SECURITY EPIC results best viewed via link to PDF [facility] Department of Pathology [address] [place] [id number] Note to Patients: This report may contain [...] Final Report Patient Name: ANTOINETTE DELANEY Address: [address] [place], [place] [id number] Gender: F : 1960 (Age: 64) Service: Surgery Location: [facility] Hospital #: [id number] [facility] Taken: 09/10/2024 Received: 09/10/2024 Accessioned: 09/10/2024 [...] determined by the Surgical Pathology Department at [facility] as part of an ongoing quality assurance director program and in compliance with federally mandated [...] characteristics determined by the Surgical Pathology Department [facility]. It has not been cleared or approved by the U. S. Food and Drug Administration. Note for decalcified specimens: This assay has not been validated on decalcified tissues. Results should be interpreted with caution given the possibility of false negativity on decalcified specimens us Vignesh Hawkins MD LAB PATHOLOGY OR DERABLES Final Result Performing Organization Address City/State/[facility] Co de Phone Number PATHOLOGY [facility] ([address] [address] * MT AN ELECTIVE ENDOTRACHEAL AIRWAY (09/10/2024 9:36 AM MANAGER IT SECURITY) [place] CRNA - 09/10/2024 9:36 AM MANAGER IT SECURITY Cliff Davis CRNA 09/10/2024 9:37 AM Airway [...] nal Result * eGFR (09/10/2024 8:47 AM MANAGER IT SECURITY) eGFR >90 >=60 mL/min/1. 73 m2 Comment: [...] last reviewed 2021. Blood 09/10/2024 8:47 AM MANAGER IT SECURITY 09/10/2024 8:50 AM MANAGER IT SECURITY us Vignesh Hawkins MD LAB BLOOD ORDERA BLES Final Result [facility] [address] [facility] [place] [address] * Differential, auto (09/10/2024 8:47 AM MANAGER IT SECURITY) Neutrophil abs 5.3 1.5 - 6.5 K/cumm [...] revised on 2017. Blood 09/10/2024 8:47 AM MANAGER IT SECURITY 09/10/2024 8:50 AM MANAGER IT SECURITY us Vignesh Hawkins MD LAB BLOOD ORDERA BLES Final Result [facility] ([place]) [address] [facility] [place] [address] * (ABNORMAL) CBC with auto differential (09/10/2024 8:47 AM MANAGER IT SECURITY) WBC 7.1 3.8 - 9.9 K/cumm Hgb [...] [facility] ([place]) Blood 09/10/2024 8:47 AM MANAGER IT SECURITY 09/10/2024 8:50 AM MANAGER IT SECURITY Vignesh Hawkins MD LAB BLOOD ORDERA BLES Final Result Performing Organization Address City/[facility] Co de Phone Number [facility] ([place]) [address] [facility] Department [place] [address] * ABO/Rh (09/10/2024 8:47 AM MANAGER IT SECURITY) ABO/Rh B Positive Blood 09/10/2024 8:47 AM MANAGER IT SECURITY 09/10/2024 8:49 AM MANAGER IT SECURITY Narrative [facility] ([place]) - 09/10/2024 9:11 AM MANAGER IT SECURITY Has the patient had Daratumumab or Isatuximab in the past 6 months?->Unknown Vignesh Hawkins MD LAB BLOOD BANK T EST ORDERABLES Final Result [facility] ([place]) [address] [facility] [place] [address] * Antibody screen (09/10/2024 8:47 AM MANAGER IT SECURITY) Pathologist [facility] Lonnie, indirect, Gel Interpretation Negative ABSC Blood 09/10/2024 8:47 AM MANAGER IT SECURITY 09/10/2024 8:49 AM MANAGER IT SECURITY Narrative [facility] ([place]) - 09/10/2024 9:25 AM MANAGER IT SECURITY Has the patient had Daratumumab or Isatuximab in the past 6 months?->Unknown us Vignesh Hawkins MD LAB BLOOD BANK T EST ORDERABLES Final Result Performing Organization Address City/[facility]/ZIP Co de Phone Number [facility] ([place]) [address] [facility] Department [place] [address] * (ABNORMAL) Comprehensive metabolic panel (09/10/2024 8:47 AM MANAGER IT SECURITY) Pathologist [facility] Sodium 133(L) 135 - 145 mmol/L Comment:sandra moreno(AMB SUrg) Potassium, pl 2.9(C) 3.3 - 4.9 mmol/L [facility] ([place]) Comment:Critical Result call ed by [email or web address] at 2024-09-10 09:18:13. Result Read Back by sandra moreno(AMB SUrg) Chloride 94(L) 97 - 110 mmol/L [facility] ([place]) Comment:sandra moreno(AMB SUrg) CO2 25 22 - 32 mmol/L [facility] ([place]) Comment:sandra cisnerosr(AMB SUrg) Anion gap 14 2 - 15 mmol/L [facility] ([place]) Comment:sandar cisnerosr(AMB SUrg) BUN 12 6 - 25 mg/dL [facility] ([place]) Comment:sandra cisnerosr(AMB SUrg) Creatinine 0.68 0.60 - 1.10 mg/dL [facility] ([place]) Comment:sandra cisnerosr(AMB SUrg) Glucose 121 70 - 199 mg/dL [...] Comment:sandra cisnerosr(AMB SUrg) Blood 09/10/2024 8:47 AM MANAGER IT SECURITY 09/10/2024 8:50 AM MANAGER IT SECURITY us Vignesh Hawkins MD LAB BLOOD ORDERA BLES Final Result [facility] ([place]) [address] [facility] Department [place] [address] * ABO / Rh Confirmation Testing (09/10/2024 8:45 AM MANAGER IT SECURITY) ABO/Rh Confirmation B Positive [facility] Blood 09/10/2024 8:45 AM MANAGER IT SECURITY 09/10/2024 9:13 AM MANAGER IT SECURITY us Vignesh Hawkins MD LAB BLOOD ORDERA BLES Final Result [facility] ([place]) [address] [facility] Department [place] [address] [facility] * US Abdomen Complete (07/24/2024 9:00 AM MANAGER IT SECURITY) Anatomical Region Laterality Modality Abdomen N/A Ultrasound 07/27/2024 3:45 PM MANAGER IT SECURITY Narrative 07/27/2024 3:47 PM MANAGER IT SECURITY EXAM DESCRIPTION: US ABDOMEN COMPLETE REASON FOR [...] liver size could not be provided. The cardiac nurse specialist indicated that real-time the liver appears enlarged. Liver is increased in echogenicity. There is no focal hepatic lesion. LIVER VASCULATURE: Normal directional flow of the main portal and hepatic veins. GALLBLADDER: Echogenic shadowing gallstone. Mild gallbladder wall thickening 0.3 cm. No pericholecystic fluid. Wagon Person reports a negative sonographic Tom's sign. BILIARY: [...] signed by Kenny Zacarias M.D. CH: BHARTI Power: 07/27/2024 3:47 PM Report ID: [id number] Reading Location: [id number] Procedure Note Kenny Zacarias Jr., MD - [...] the liver size could not be provided.The cardiac nurse specialist indicated that real-time the liver appears enlarged. Liver is increased in echogenicity. There is no focal hepatic lesion. LIVER VASCULATURE: Normal directional flow of the main portal and hepatic veins. GALLBLADDER: Echogenic shadowing gallstone. Mild gallbladder wallthickening 0.3 cm. No pericholecystic fluid. Wagon Person reports a negativesonographic Tom's sign. BILIARY: No [...] Kenny Zacarias M.D. CH: BHARTI Report ID: [id number] Reading Location: [place] [address] us Mariah Adams MD IMG US PROCEDURES Final Result * XR Chest 1 View (07/22/2024 9:06 AM MANAGER IT SECURITY) Anatomical Region Laterality Modality Body, Chest N/A Computed Radiogr aphy 07/22/2024 9:09 AM MANAGER IT SECURITY Narrative 07/22/2024 9:11 AM MANAGER IT SECURITY EXAM DESCRIPTION: XR CHEST 1 VIEW REASON [...] by Morgan Dong M.D. JR: Report ID: [id number] Reading Location: [id number] Procedure Note Morgan Dong MD - 07/22/2024 [...] by Morgan Dong M.D. JR: Report ID: [id number] Reading Location: [place] [address] Mike Suarez MD IMG XR PROCEDURES Final Resu lt * eGFR (07/22/2024 8:48 AM MANAGER IT SECURITY) eGFR 86 >=60 mL/min/1. 73 m2 Comment: [...] last reviewed 2021. Blood 07/22/2024 8:48 AM MANAGER IT SECURITY 07/22/2024 8:50 AM MANAGER IT SECURITY Mike Suarez MD LAB BLOOD ORDERABLES Final R esult [facility] [address] [facility] Department [place] [address] * (ABNORMAL) Differential, auto (07/22/2024 8:48 AM MANAGER IT SECURITY) Neutrophil abs 9.0(H) 1.5 - 6.5 K/cumm [...] revised on 2017. Blood 07/22/2024 8:48 AM MANAGER IT SECURITY 07/22/2024 8:50 AM MANAGER IT SECURITY us Mike Suarez MD LAB BLOOD ORDERABLES Final R esult [facility] ([place]) [address] [facility] Department [place] [address] * (ABNORMAL) CBC with auto differential (07/22/2024 8:48 AM MANAGER IT SECURITY) WBC 10.3(H) 3.8 - 9.9 K/cumm Hgb 11.8(L) 11.9 - 15.5 g/dL [facility] ([place]) Hct 35.7 35.6 - 45.5 % [facility] ([place]) Plt 346 150 - 400 K/cumm [facility] ([place]) MPV 9.2 9.1 - 12.3 fL [facility] ([place]) RBC 4.44 3.90 - 5.20 M/cumm [facility] ([place]) MCV 80.4(L) 81.3 - 96.4 fL [facility] ([place]) MCH 26.6(L) 27.1 - 33.3 pg [facility] ([place]) MCHC 33.1 32.3 - 35.7 g/dL [facility] ([place]) RDW CV 15.0(H) 11.1 - 14.9 % [facility] ([place]) RDW SD 43.5 35.7 - 48.1 fL [facility] ([place]) NRBC abs 0.00 0.00 - 0.01 K/cumm [facility] ([place]) Blood 07/22/2024 8:48 AM MANAGER IT SECURITY 07/22/2024 8:50 AM MANAGER IT SECURITY Mike Suarez MD LAB BLOOD ORDERABLES Final R esult Performing Organization Address City/[facility]/ZIP Co de Phone Number [facility] ([place]) [address] [facility] Department [place] [address] * Magnesium (07/22/2024 8:48 AM MANAGER IT SECURITY) Magnesium 1.6 1.4 - 2.5 mg/dL Comment:Anai Truong (ER) Blood 07/22/2024 8:48 AM MANAGER IT SECURITY 07/22/2024 8:50 AM MANAGER IT SECURITY Mike Suarez MD LAB BLOOD ORDERABLES Final R esult Performing Organization Address City/State/[facility] Co de Phone Number [facility] ([place]) [address] [facility] Department [place] [address] * (ABNORMAL) Comprehensive metabolic panel (07/22/2024 8:48 AM MANAGER IT SECURITY) Sodium 130(L) 135 - 145 mmol/L Comment:Anai Truong (ER) Potassium, pl 3.0(C) 3.3 - 4.9 mmol/L [facility] ([place]) Comment:Critical Result call ed by [email or web address] at 2024-07-22 09:20:43. Result Read Back by Anai Truogn (ER) Chloride 89(L) 97 - 110 mmol/L [...] (ER) Glucose 139 70 - 199 mg/dL [facility] ([place]) Comment: Anai Truong (ER) Interpretive [...] (ER) Albumin 4.1 3.5 - 5.0 g/dL [facility] ([place]) Comment:Anai Truong (ER) Alk phos 162(H) 40 - 130 Units/L [facility] ([place]) Comment:Anai Truong (ER) ALT 18 7 - 45 Units/L [facility] ([place]) Comment:Anai Truong (ER) AST 29 10 - 45 Units/L [facility] ([place]) Comment:Anai Truong (ER) Blood 07/22/2024 8:48 AM MANAGER IT SECURITY 07/22/2024 8:50 AM MANAGER IT SECURITY us Mike Suarez MD LAB BLOOD ORDERABLES Final R esult [facility] [address] [facility] Department [place] [address] * Influenza A/B, RSV, and COVID-19 PCR Nasopharyngeal (07/22/2024 8:41 AM MANAGER IT SECURITY) COVID-19 RNA Negative Negative Influenza A RNA Negative Negative [facility]) Influenza B RNA Negative Negative [facility]) RSV RNA Negative Negative [facility] Comment: Interpretive data: Testing performed by [facility]. This test is performed using the [employer] Xpert Xpress CoV-2/Flu/RSV plus assay. This is a multiplex, real- time reverse transcriptase PCR assay intended for the qualitative detection of nucleic acid from SARS-CoV-2, influenza A, influenza B, and respiratory syncytial virus. This assay has been cleared by the [place] Food and Drug administration. The performance characteristics have been verified by the [facility]. Results must be considered in the clinical context, and a negative result does not rule out infection. Interpretive Data last revised 2023 Nasopharyngeal 07/22/2024 8: 41 AM MANAGER IT SECURITY 07/22/2024 8:43 AM MANAGER IT SECURITY Narrative [facility] - 07/22/2024 9:24 AM MANAGER IT SECURITY Is the Patient experiencing symptoms consistent with COVID?->Yes us Mike Suarez MD LAB MICROBIOLOGY - GENERAL O RDERABLES Final Result [facility] ([place]) [address] [facility] Department [place] [address] * Serum Hepatitis C ab (11/01/2014 8:32 AM MANAGER IT SECURITY) HCV ab Negative NEG HISTORICAL RESULTS Serum 11/01/2014 8:32 AM MANAGER IT SECURITY Narrative HISTORICAL RESULTS - 11/02/2014 3:46 AM MANAGER IT SECURITY Interpretive Data If confirmation is required, call Laboratory Customer Service to request sample to be sent to [facility] for Hepatitis C Virus (HCV) RNA Detection and Quantitation by Real-Time Reverse Manufacturing Engineer Chief-PCR (RT-PCR). Current interpretive data was last revised on 2011 us Fariha Whitley MD LAB BLOOD ORDERABLES Final R esult HISTORICAL RESULTS * DIGITAL MAMMOGRAPHY (12/11/2013 11:01 AM CDT) Anatomical Region Laterality Modality Breast Mammography 12/11/2013 11:0 1 AM CDT Narrative 12/12/2013 12:15 AM CDT Vm Mammogram Performed by: LT Screening Mamm Bi Acc#: [id number] DATE OF EXAM: Dec 11 2013 CLINICAL [...] Performed by: LT Screening Mamm Bi Acc#: [id number] DATE OF EXAM: Dec 11 2013 CLINICAL [...] Most Recently Relevant to Health Maintenance Insurance [facility] [place] [employer] PPO Advance Directives For more information, please contact: [phone] * Full Code (Latest Code Status on File) Date Activated Date Inactivated Comments 11/22/2023 6:25 PM 11/25/2023 11:09 PM * Full Code Date Activated Date Inactivated Comments 12/21/2022 5:34 PM 12/24/2022 8:16 PM * Full Code Date Activated Date Inactivated Comments 11/10/2022 4:25 PM 11/11/2022 3:51 PM * Full Code Date Activated Date Inactivated Comments 05/04/2022 1:38 PM 05/05/2022 6:47 PM Care Teams Plant Maintenance Technician Relationship Specialty Start Date End Date Mariah Adams MD [address] [place] [address] [place] [address] PCP - General Internal Medicine 08/19/20 Mitchell Zamarripa MD [address] [place] [id number] Referring Physician Rheumatology 03/11/22 Brit More NP [address] [place] [id number] Nurse Practitioner Cardiovascular Disease 03/11/22 Cliff Ronquillo NP [address] [place] [address] [place] [address] Nurse Practitioner Nurse Practitioner 05/05/22 Dick Aguilar PA [address] [place] [address] [place] [address] Physician Laminate Floor Installer Orthopedic Surgery 11/11/22 Gavin Sewell MD [address] [place] [address] DR CARLOS QUINTERO [address] [place] [id number] Surgeon Orthopedic Surgery 12/24/22
--- OUTSIDE RECORDS SUMMARY | 2024-10-22 14:10 | XMS_ITS | Clinical Summary ---
Author Organization [facility] Address [address] [place] [address] Phone Care Team Providers Care Associate Professor Of Archaeology Name Role Phone JAM MCDONNELL PA-C Primary Care Provider [phone] Reason for Visit and Chief Complaint ECHOCARDIOGRAM [...] Check-Out Time Diagnosis ECHOCARDIOGRAM ELTON GROVER MD [facility] OP HRT 08/02/20 23 8:35AM 9:29AM Insurance Includes: Active Insurance Policies Plan Name Member ID Group # Subscriber Relationship Effect cyn Dates 1 - [employer]AGE [id number] NIGHAT DELANEY Self Clinical Notes Includes: Clinical Notes from this encounter No Clinical Notes Recorded
--- OUTSIDE RECORDS SUMMARY | 2024-10-22 14:10 | XMS_ITS ---
Care Plan - [facility] Created on: October 22, 2024 NIGHAT DELANEY : 1960 Sex: Female Author Organization [facility] Address [address] [place] [address] Phone Care Team Providers Care Test Engineer Nuclear Equipment Name Role Phone JAM MCDONNELL PA-C Primary Care Provider [phone]
--- OUTSIDE RECORDS SUMMARY | 2024-10-22 14:10 | XMS_ITS | Referral Summary ---
Author Organization [facility] Address [address] [place] [address] Care Team Providers Care Blood Donor Recruiter Name Role Phone Mariah Adams MD Primary Care Provider + Mitchell Zamarripa MD Unavailable [phone] Brit More [place] SILVERWARE SALESPERSON Unavailable [phone] Cliff Ronquillo NP Unavailable [phone] Dick Aguilar Unavailable [phone] Gaivn Sewell MD Unavailable [phone] Encounters Date Type Department Care Team Description 09/10/2024 9:15 AM TRUCK BODY BUILDER APPRENTICE - 09/10/2024 10:45 AM TRUCK BODY BUILDER APPRENTICE Surgery [facility] Operating Room [address] [place] [address] Vignesh Hawkins MD LAPAROSCOPIC CHOLECYSTECTOMY 09/10/2024 9:16 AM TRUCK BODY BUILDER APPRENTICE Anesthesia Event [facility] Operating Room [address] [place] [address] Tonia Gutierrez MD Reynolds, Ethan Emerson, MD 09/10/2024 8:13 AM TRUCK BODY BUILDER APPRENTICE - 09/10/2024 2:39 PM TRUCK BODY BUILDER APPRENTICE Hospital Encounter [facility] Operating Room [address] [place] [address] Vignesh Hawkins MD Calculus of gallbladder with cholecystitis without biliary obstruction, unspecified cholecystitis acuity Discharge Disposition: Discharge to home or self care 08/14/2024 9:30 AM TRUCK BODY BUILDER APPRENTICE Office Visit [facility] [address] [facility] [address] [place] [phone] Vignesh Hawkins MD Calculus of gallbladder with cholecystitis without biliary obstruction, unspecified cholecystitis acuity 07/24/2024 7:58 AM TRUCK BODY BUILDER APPRENTICE - 07/24/2024 11:59 PM TRUCK BODY BUILDER APPRENTICE Hospital Encounter [facility] [address] [place] [address] Hepatomegaly, not elsewhere classified; Hepatomegaly Discharge Disposition: Discharge to home or self care 07/22/2024 8:25 AM TRUCK BODY BUILDER APPRENTICE - 07/22/2024 10:10 AM TRUCK BODY BUILDER APPRENTICE Emergency [facility] Emergency Department [address] [place] [address] Mike Suarez MD Bronchitis (Primary Dx) Discharge [...] 1 tablet (100 mcg total) by 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 Take [...] hypertension, benign 06/15/2011 GERD (gastroesophageal reflux disease) 10/18/201 1 Immunocompromised 06/15/2011 Prolapse of female bladder, [...] disease 01/18/2012 04/26/2018 Polyarthropathy 01/16/2012 04/26/2018 Immunizations Immunization Administration Dates Next Due Influenza, [...] How often do you attend chur or yazidism services? Never 12/23/2022 Do you belong to [...] staff should administer the PHQ-9) 0 11/23/2023 [facility] - Occupational [...] on file Legal Sex Female 11:50 PM TRUCK BODY BUILDER APPRENTICE Gender Identity Not on file Sexual Orientation Not on file Last Filed Vital Signs Vital Sign Reading Time Taken Comments Blood Pressure 119/69 09/10/2024 2:00 PM TRUCK BODY BUILDER APPRENTICE Pulse 69 09/10/2024 2:00 PM TRUCK BODY BUILDER APPRENTICE Temperature 36.4 C (97.6 F) 09/10/2024 2:00 PM TRUCK BODY BUILDER APPRENTICE Respiratory Rate 16 09/10/2024 2:00 PM TRUCK BODY BUILDER APPRENTICE Oxygen Saturation 94% 09/10/2024 2:00 PM TRUCK BODY BUILDER APPRENTICE Inhaled Oxygen Concentration - - Weight 67.6 kg (149 lb 0.5 oz) 09/10/2024 8:15 A M TRUCK BODY BUILDER APPRENTICE Height 154.9 cm (5' 1 ) 09/10/2024 8:15 AM TRUCK BODY BUILDER APPRENTICE Body Mass Index 28.16 09/10/2024 8:15 AM TRUCK BODY BUILDER APPRENTICE Plan of Treatment Not on file Medical Devices Implanted Type Area Pharmacy Benefits Coordinator Device Identifier Shelf Expiration Date Model / Serial / Lot Exactech Restrictor Cement Cemex Small Od13mm Tpa-13 - [id number] Implanted:Qty: 1 on 05/04/2022 by Gavin Sewell MD at [facility] Left: Shoulder Exactech 08/28/2023 TPA-13 / / [id number] Exactech Equinoxe Reverse Shoulder +0mm Tray Humeral Adapter 32010 - [id number] - [id number] Implanted:Qty: 1 on 05/04/2022 by Gavin Sewell MD at [facility] Exactech [id number] 04/07/2032 320-10- / [id number] / Exactech Equinoxe 40mm Small Reverse Constrain Shoulder +2.5mm Liner 40- - [id number] - [id number] Implanted:Qty: 1 on 05/04/2022 by Gavin Sewell MD at [facility] Ex[employer]ech 01/31/2024 320-40- / [id number] / Exactech Equinoxe Lock Reverse Shoulder Glenosphere Screw Bone 320-15 - [id number] - [id number] Implanted:Qty: 1 on 05/04/2022 by Gavin Sewell MD at [facility] Left: Shoulder Exactech 03/09/2027 320-15- / [id number] / Exactech Reverse Torque Define Shoulder Kit Screw 320-20 - [id number] - [id number] Implanted:Qty: 1 on 05/04/2022 by Gavin Sewell MD at [facility] Left: Shoulder Exactech 02/03/2027 320-20- / [id number] / Exactech Equinoxe Small Reverse Superior Posterior Augment Shoulder Left 320-35- - [id number] - [id number] Implanted:Qty: 1 on 05/04/2022 by Gavin Sewell MD at [facility] Left: Shoulder Exactech [id number] 04/08/2031 320-35- / [id number] / Exactech Equinoxe 10mm Stem Humeral Sterile 300-- - [id number] - [id number] Implanted:Qty: 1 on 05/04/2022 by Gavin Sewell MD at [facility] Left: Shoulder Exactech [id number] 09/07/2031 300-09-07 / [id number] / [employer] Cement Bone Simplex Gentamicin High Viscosity 40gm 6195-1-001 - [id number] Implanted:Qty: 1 on 05/04/2022 by Gavin Sewell MD at [facility] Left: Shoulder [employer] 09/28/2023 6195-1-001 / / [id number] Exactech Equinoxe 40mm 24.3mm Small Reverse Shoulder Sphere Glenoid 320-31-40 - [id number] - [id number] Implanted:Qty: 1 on 05/04/2022 by Gavin Sewell MD at [facility] Left: Shoulder Exactech [id number] 12/11/2030 320-31-40 / [id number] / Exactech Equinoxe 4.5mm 38mm Kit Compression Lock Cap Reverse Shoulder 320-20-38 - [id number] - [id number] Implanted:Qty: 1 on 05/04/2022 by Gavin Sewell MD at [facility] Left: Shoulder Exactech [id number] 01/12/2027 320-20-38 / [id number] / Exactech Equinoxe 4.5mm 34mm Kit Compression Lock Cap Reverse Shoulder 320-20-34 - [id number] - [id number] Implanted:Qty: 1 on 05/04/2022 by Gavin Sewell MD at [facility] Left: Shoulder Exactech [id number] 07/14/2026 320-20-34 / [id number] / [employer] Insert Tibial Knee Fixed Lm Posterior Stabilized Attune 7mm Size 5 Polyethylene [id number] - [id number] Implanted:Qty: 1 on 11/10/2022 by Gavin Sewell MD at [facility] Left: Knee [employer] 07/28/2030 [id number] / / [id number] [employer] Attune Cruciate Retain Cementless Knee Left 5 Component Femoral [id number] - [id number] Implanted:Qty: 1 on 11/10/2022 by Gavin Sewell MD at [facility] Left: Knee [employer] 04/28/2032 [id number] / / [id number] [employer] Attune Fb Tib Base Sz 5 Por [id number] - [id number] Implanted:Qty: 1 on 11/10/2022 by Gavin Sewell MD at [facility] Left: Knee [employer] 03/28/2032 [id number] / / [id number] Procedures Procedure Name Priority Date/Time Associated Diagnosis Comments SURGICAL PATHOLOGY Routine 09/10/2024 10:29 AM TRUCK BODY BUILDER APPRENTICE Calculus of gallbladder with cholecystitis without biliary obstruction, unspecified cholecystitis acuity OH AN ELECTIVE ENDOTRACHEAL AIRWAY Routine 09/10/2024 9:36 AM TRUCK BODY BUILDER APPRENTICE LAPAROSCOPIC CHOLECYSTECTOMY 09/10/2024 9:02 AM TRUCK BODY BUILDER APPRENTICE Calculus of gallbladder with cholecystitis without biliary obstruction, unspecified cholecystitis acuity EGFR STAT 09/10/2024 8:47 AM TRUCK BODY BUILDER APPRENTICE DIFFERENTIAL AUTO STAT 09/10/2024 8:4 7 AM TRUCK BODY BUILDER APPRENTICE ANTIBODY SCREEN STAT 09/10/2024 8:47 AM TRUCK BODY BUILDER APPRENTICE ABO/RH STAT 09/10/2024 8:47 AM TRUCK BODY BUILDER APPRENTICE TYPE AND SCREEN STAT 09/10/2024 8:47 AM TRUCK BODY BUILDER APPRENTICE CBC WITH AUTO DIFFERENTIAL STAT 09/10/2024 8:47 AM TRUCK BODY BUILDER APPRENTICE COMPREHENSIVE METABOLIC PANEL STAT 09/10/2024 8:47 AM TRUCK BODY BUILDER APPRENTICE B ABO / RH CONFIRMATION TESTING STAT 09/10/2024 8:45 AM TRUCK BODY BUILDER APPRENTICE US ABDOMEN COMPLETE Schedule Routine, Read Routine (OP Routine) 07/24/2024 9:00 AM TRUCK BODY BUILDER APPRENTICE Hepatomegaly XR CHEST 1 VIEW ED 07/22/2024 9:06 AM TRUCK BODY BUILDER APPRENTICE EGFR STAT 07/22/2024 8:48 AM TRUCK BODY BUILDER APPRENTICE DIFFERENTIAL AUTO STAT 07/22/2024 8:4 8 AM TRUCK BODY BUILDER APPRENTICE MAGNESIUM Routine 07/22/2024 8:48 AM TRUCK BODY BUILDER APPRENTICE COMPREHENSIVE METABOLIC PANEL STAT 07/22/2024 8:48 AM TRUCK BODY BUILDER APPRENTICE CBC WITH AUTO DIFFERENTIAL STAT 07/22/2024 8:48 AM TRUCK BODY BUILDER APPRENTICE INFLUENZA A/B, RSV, AND COVID-19 PCR Routine 07/22/2024 8:41 AM TRUCK BODY BUILDER APPRENTICE SERUM HEPATITIS C AB Routine 11/01/2014 8:32 AM TRUCK BODY BUILDER APPRENTICE DIGITAL MAMMOGRAPHY Routine 12/11/2013 11:01 AM CDT from Last 3 Months or Most Recently Relevant to Health Maintenance Results * Surgical pathology (09/10/2024 10:29 AM TRUCK BODY BUILDER APPRENTICE) Tissue (Gallbladder) 09/10/2024 9:51 AM TRUCK BODY BUILDER APPRENTICE Narrative PATHOLOGY [facility] ([facility]) - 09/11/2024 3:50 PM TRUCK BODY BUILDER APPRENTICE EPIC results best viewed via link to PDF [facility] Department of Pathology [address] [place] [id number] Note to Patients: This report may [...] Final Report Patient Name: ANTOINETTE DELANEY Address: [address] [place] [address] Gender: F : 1960 (Age: 64) Service: Surgery Location: [facility] Hospital #: [id number] Patient Type: [facility] Taken: 09/10/2024 Received: 09/10/2024 Accessioned: 09/10/2024 Reported: [...] determined by the Surgical Pathology Department at [facility] as part of an ongoing quality coordinator program and in compliance with federally mandated [...] characteristics determined by the Surgical Pathology Department [facility]. It has not been cleared or approved by the U. S. Food and Drug Administration. Note for decalcified specimens: This assay has not been validated on decalcified tissues. Results should be interpreted with caution given the possibility of false negativity on decalcified specimens us Vignesh Hawkins MD LAB PATHOLOGY OR DERABLES Final Result PATHOLOGY [facility] ([address] [address] * OH AN ELECTIVE ENDOTRACHEAL AIRWAY (09/10/2024 9:36 AM TRUCK BODY BUILDER APPRENTICE) Narrative Cliff Davis CRNA - 09/10/2024 9:36 AM TRUCK BODY BUILDER APPRENTICE Cliff Davis CRNA 09/10/2024 9:37 AM Airway [...] nal Result * eGFR (09/10/2024 8:47 AM TRUCK BODY BUILDER APPRENTICE) eGFR >90 >=60 mL/min/1. 73 m2 Comment: [...] last reviewed 2021. Blood 09/10/2024 8:47 AM TRUCK BODY BUILDER APPRENTICE 09/10/2024 8:50 AM TRUCK BODY BUILDER APPRENTICE us Vignesh Hawkins MD LAB BLOOD ORDERA BLES Final Result [facility] ([facility]) [address] [facility] Department [place] [address] * Differential, auto (09/10/2024 8:47 AM TRUCK BODY BUILDER APPRENTICE) Neutrophil abs 5.3 1.5 - 6.5 K/cumm [...] revised on 2017. Blood 09/10/2024 8:47 AM TRUCK BODY BUILDER APPRENTICE 09/10/2024 8:50 AM TRUCK BODY BUILDER APPRENTICE Vignesh Hawkins MD LAB BLOOD ORDERA BLES Final Result [facility] ([facility]) [address] [facility] Department [place] [address] * (ABNORMAL) CBC with auto differential (09/10/2024 8:47 AM TRUCK BODY BUILDER APPRENTICE) WBC 7.1 3.8 - 9.9 K/cumm Hgb 11.7(L) 11.9 - 15.5 g/dL [facility] ([facility]) Hct 35.2(L) 35.6 - 45.5 % [facility] ([facility]) Plt 278 150 - 400 [...] RDW SD 47.5 35.7 - 48.1 fL [facility] NRBC abs 0.00 0.00 - 0.01 K/cumm [facility] Blood 09/10/2024 8:47 AM TRUCK BODY BUILDER APPRENTICE 09/10/2024 8:50 AM TRUCK BODY BUILDER APPRENTICE Vignesh Hakwins MD LAB BLOOD ORDERA BLES Final Result [facility] ([place]) [address] [facility] [employer] [place] [address] * ABO/Rh (09/10/2024 8:47 AM TRUCK BODY BUILDER APPRENTICE) Pathologist [facility] ABO/Rh B Positive Blood 09/10/2024 8:47 AM TRUCK BODY BUILDER APPRENTICE 09/10/2024 8:49 AM TRUCK BODY BUILDER APPRENTICE Narrative [facility] - 09/10/2024 9:11 AM TRUCK BODY BUILDER APPRENTICE Has the patient had Daratumumab or Isatuximab in the past 6 months?->Unknown Vignesh Hawkins MD LAB BLOOD BANK T EST ORDERABLES Final Result [facility] ([place]) [address] [facility] [employer] [place] [address] * Antibody screen (09/10/2024 8:47 AM TRUCK BODY BUILDER APPRENTICE) Lonnie, indirect, Gel Interpretation Negative [facility] Blood 09/10/2024 8:47 AM TRUCK BODY BUILDER APPRENTICE 09/10/2024 8:49 AM TRUCK BODY BUILDER APPRENTICE Narrative [facility] ([facility]) - 09/10/2024 9:25 AM TRUCK BODY BUILDER APPRENTICE Has the patient had Daratumumab or Isatuximab in the past 6 months?->Unknown us Vignesh Hawkins MD LAB BLOOD BANK T EST ORDERABLES Final Result [facility] ([facility]) [address] [facility] Department [place] [address] * (ABNORMAL) Comprehensive metabolic panel (09/10/2024 8:47 AM TRUCK BODY BUILDER APPRENTICE) Sodium 133(L) 135 - 145 mmol/L Comment:sandra moreno(AMB SUrg) Potassium, pl 2.9(C) 3.3 - 4.9 mmol/L [facility] ([facility]) Comment:Critical Result call ed by [email or web address] at 2024-09-10 09:18:13. Result Read Back by sandra moreno(AMB SUrg) Chloride 94(L) 97 - 110 mmol/L [facility] ([facility]) Comment:sandra moreno(AMB SUrg) CO2 25 22 - 32 mmol/L [facility] ([place]) Comment:sandra moreno(AMB SUrg) Anion gap 14 2 - 15 mmol/L [facility] ([facility]) Comment:sandra moreno(AMB SUrg) BUN 12 6 - 25 mg/dL [facility] ([facility]) Comment:sandra cisnerosr(AMB SUrg) Creatinine 0.68 [...] Comment:sandra moreno(AMB SUrg) Blood 09/10/2024 8:47 AM TRUCK BODY BUILDER APPRENTICE 09/10/2024 8:50 AM TRUCK BODY BUILDER APPRENTICE Vignesh Hawkins MD LAB BLOOD ORDERA BLES Final Result Performing Organization Address City/[facility]/ZIP Co de Phone Number [facility] ([facility]) [address] [facility] [employer] [place] [address] * ABO / Rh Confirmation Testing (09/10/2024 8:45 AM TRUCK BODY BUILDER APPRENTICE) ABO/Rh Confirmation B Positive [facility] Blood 09/10/2024 8:45 AM TRUCK BODY BUILDER APPRENTICE 09/10/2024 9:13 AM TRUCK BODY BUILDER APPRENTICE Vignesh Hawkins MD LAB BLOOD ORDERA BLES Final Result Performing Organization Address [facility]/ZIP Co de Phone Number [facility] ([facility]) [address] [facility] Department [employer] [place] [address] [facility] * US Abdomen Complete (07/24/2024 9:00 AM TRUCK BODY BUILDER APPRENTICE) Anatomical Region Laterality Modality Abdomen N/A Ultrasound 07/27/2024 3:45 PM TRUCK BODY BUILDER APPRENTICE Narrative 07/27/2024 3:47 PM TRUCK BODY BUILDER APPRENTICE EXAM DESCRIPTION: US ABDOMEN COMPLETE REASON FOR [...] liver size could not be provided. The rn hyperbaric indicated that real-time the liver appears enlarged. Liver is increased in echogenicity. There is no focal hepatic lesion. LIVER VASCULATURE: Normal directional flow of the main portal and hepatic veins. GALLBLADDER: Echogenic shadowing gallstone. Mild gallbladder wall thickening 0.3 cm. No pericholecystic fluid. Tile Erector reports a negative sonographic Tom's sign. BILIARY: [...] Kenny Zacarias M.D. CH: BHARTI Report ID: [id number] Reading Location: [id number] Procedure Note Kenny Zacarias Jr., MD - [...] the liver size could not be provided.The rn hyperbaric indicated that real-time the liver appears enlarged. Liver is increased in echogenicity. There is no focal hepatic lesion. LIVER VASCULATURE: Normal directional flow of the main portal and hepatic veins. GALLBLADDER: Echogenic shadowing gallstone. Mild gallbladder wallthickening 0.3 cm. No pericholecystic fluid. Tile Erector reports a negativesonographic Tom's sign. BILIARY: No [...] Kenny Zacarias M.D. CH: BHARTI Report ID: [id number] Reading Location: [id number] us Mariah Adams MD IMG US PROCEDURES Final Result * XR Chest 1 View (07/22/2024 9:06 AM TRUCK BODY BUILDER APPRENTICE) Anatomical Region Laterality Modality Body, Chest N/A Computed Radiogr aphy 07/22/2024 9:09 AM TRUCK BODY BUILDER APPRENTICE Narrative 07/22/2024 9:11 AM TRUCK BODY BUILDER APPRENTICE EXAM DESCRIPTION: XR CHEST 1 VIEW REASON [...] by Morgan Dong M.D. JR: Report ID: [id number] Reading Location: [id number] Procedure Note Morgan Dong MD - 07/22/2024 [...] by Morgan Dong M.D., JR: Report ID: [id number] Reading Location: [id number] us Mike Suarez MD IMG XR PROCEDURES Final Resu lt * eGFR (07/22/2024 8:48 AM TRUCK BODY BUILDER APPRENTICE) eGFR 86 >=60 mL/min/1. 73 m2 Comment: [...] last reviewed 2021. Blood 07/22/2024 8:48 AM TRUCK BODY BUILDER APPRENTICE 07/22/2024 8:50 AM TRUCK BODY BUILDER APPRENTICE us Mike Suarez MD LAB BLOOD ORDERABLES Final R esult JL [facility] ([facility]) [address] [facility] Department [place] [address] * (ABNORMAL) Differential, auto (07/22/2024 8:48 AM TRUCK BODY BUILDER APPRENTICE) Pathologist [facility] Neutrophil abs 9.0(H) 1.5 - 6.5 K/cumm Imm gran abs 0.0 0.0 - 0.1 K/cumm [facility] ([facility]) Lymphocyte abs 0.6(L) 0.8 - 3.3 K/cumm [facility] ([facility]) Monocyte abs 0.6 0.2 - 0.8 K/cumm [...] revised on 2017. Monocyte pct 5.8 % [facility] ([facility]) Comment: Interpretive Data Percent cell [...] revised on 2017. Blood 07/22/2024 8:48 AM TRUCK BODY BUILDER APPRENTICE 07/22/2024 8:50 AM TRUCK BODY BUILDER APPRENTICE us Mike Suarez MD LAB BLOOD ORDERABLES Final R esult [facility] ([place]) [address] [facility] Department of Laboratories [place], [place] [id number] * (ABNORMAL) CBC with auto differential (07/22/2024 8:48 AM TRUCK BODY BUILDER APPRENTICE) WBC 10.3(H) 3.8 - 9.9 K/cumm Hgb [...] RDW SD 43.5 35.7 - 48.1 fL [facility] NRBC abs 0.00 0.00 - 0.01 K/cumm [facility] ([facility]) Blood 07/22/2024 8:48 AM TRUCK BODY BUILDER APPRENTICE 07/22/2024 8:50 AM TRUCK BODY BUILDER APPRENTICE Mike Suarez MD LAB BLOOD ORDERABLES Final R esult Performing Organization Address City/[facility] Co de Phone Number [facility] ([facility]) [address] [facility] [employer] [place] [address] * Magnesium (07/22/2024 8:48 AM TRUCK BODY BUILDER APPRENTICE) Magnesium 1.6 1.4 - 2.5 mg/dL Comment:Anai Truong (ER) Blood 07/22/2024 8:48 AM TRUCK BODY BUILDER APPRENTICE 07/22/2024 8:50 AM TRUCK BODY BUILDER APPRENTICE Mike Suarez MD LAB BLOOD ORDERABLES Final R esult [facility] ([facility]) [address] [facility] [employer] [address] * (ABNORMAL) Comprehensive metabolic panel (07/22/2024 8:48 AM TRUCK BODY BUILDER APPRENTICE) Sodium 130(L) 135 - 145 mmol/L Comment:Anai Truong (ER) Potassium, pl 3.0(C) 3.3 - 4.9 mmol/L [facility] ([facility]) Comment:Critical Result call ed by [id number] at 2024-07-22 09:20:43. Result Read Back by [...] (ER) AST 29 10 - 45 Units/L [facility] ([facility]) Comment:Anai Truong (ER) Blood 07/22/2024 8:48 AM TRUCK BODY BUILDER APPRENTICE 07/22/2024 8:50 AM TRUCK BODY BUILDER APPRENTICE Mike Suarez MD LAB BLOOD ORDERABLES Final R esult Performing Organization Address City/[facility]/ZIP Co de Phone Number [facility] ([facility]) [address] [facility] Department [employer] [place] [address] * Influenza A/B, RSV, and COVID-19 PCR Nasopharyngeal (07/22/2024 8:41 AM TRUCK BODY BUILDER APPRENTICE) COVID-19 RNA Negative Negative Influenza A RNA Negative Negative [facility] ([place]) Influenza B RNA Negative Negative [facility] ([facility]) RSV RNA Negative Negative [facility] ([facility]) Comment: Interpretive data: Testing performed by [facility]. This test is performed using the [employer] Xpert Xpress CoV-2/Flu/RSV plus assay. This is a multiplex, real- time reverse transcriptase PCR assay intended for the qualitative detection of nucleic acid from SARS-CoV-2, influenza A, influenza B, and respiratory syncytial virus. This assay has been cleared by the [place] Food and Drug administration. The performance characteristics have been verified by the [facility]. Results must be considered in the clinical context, and a negative result does not rule out infection. Interpretive Data last revised 2023 Nasopharyngeal 07/22/2024 8: 41 AM TRUCK BODY BUILDER APPRENTICE 07/22/2024 8:43 AM TRUCK BODY BUILDER APPRENTICE Narrative [facility] ([facility]) - 07/22/2024 9:24 AM TRUCK BODY BUILDER APPRENTICE Is the Patient experiencing symptoms consistent with COVID?->Yes Mike Suarez MD LAB MICROBIOLOGY - GENERAL O RDERABLES Final Result Performing Organization Address City/[facility]/ZIP Co de Phone Number [facility] ([facility]) [address] [facility] Department [place] [address] * Serum Hepatitis C ab (11/01/2014 8:32 AM TRUCK BODY BUILDER APPRENTICE) HCV ab Negative NEG HISTORICAL RESULTS Serum 11/01/2014 8:32 AM TRUCK BODY BUILDER APPRENTICE Narrative HISTORICAL RESULTS - 11/02/2014 3:46 AM TRUCK BODY BUILDER APPRENTICE Interpretive Data If confirmation is required, call Laboratory Customer Service to request sample to be sent to [facility] for Hepatitis C Virus (HCV) RNA Detection and Quantitation by Real-Time Reverse Endbander-PCR (RT-PCR). Current interpretive data was last revised on 2011 us Fariha Whitley MD LAB BLOOD ORDERABLES Final R esult HISTORICAL RESULTS * DIGITAL MAMMOGRAPHY (12/11/2013 11:01 AM CDT) Anatomical Region Laterality Modality Breast Mammography 12/11/2013 11:0 1 AM CDT Narrative 12/12/2013 12:15 AM CDT Vm Mammogram Performed by: LT Screening Mamm Bi Acc#: [id number] DATE OF EXAM: Dec 11 2013 CLINICAL [...] Performed by: LT Screening Mamm Bi Acc#: [id number] DATE OF EXAM: Dec 11 2013 CLINICAL [...] to Health Maintenance [place] [employer] PPO Advance Directives For more information, please contact: [phone] * Full Code (Latest Code Status on File) Date Activated Date Inactivated Comments 11/22/2023 6:25 PM 11/25/2023 11:09 PM * Full Code Date Activated Date Inactivated Comments 12/21/2022 5:34 PM 12/24/2022 8:16 PM * Full Code Date Activated Date Inactivated Comments 11/10/2022 4:25 PM 11/11/2022 3:51 PM * Full Code Date Activated Date Inactivated Comments 05/04/2022 1:38 PM 05/05/2022 6:47 PM Care Teams Blood Donor Recruiter Relationship Specialty Start Date End Date Mariah Adams MD [address] [place] [phone] PCP - General Internal Medicine 08/19/20 Mitchell Zamarripa MD [address] [place] [id number] Referring Physician Rheumatology 03/11/22 Brit More NP [facility] [place] [address] Nurse Practitioner Cardiovascular Disease 03/11/22 Cliff Ronquillo NP [address] [place] [address] [address] [place] [address] Nurse Practitioner Nurse Practitioner 05/05/22 Dick Aguilar PA [address] [place] [address] [address] [facility] [place] [address] Physician System Trainer Orthopedic Surgery 11/11/22 Gavin Sewell MD [address] [place] [address] DR CARLOS Marc [address] [address] Surgeon Orthopedic Surgery 12/24/22
--- OUTSIDE RECORDS SUMMARY | 2024-10-22 14:10 | XMS_ITS | Clinical Summary ---
Author Organization [facility] Address [address] [place] [address] Phone Care Team Providers Care Speech Correction Consultant Name Role Phone JAM MCDONNELL PA-C Primary Care Provider [phone] Reason for Visit and Chief Complaint LEXISCAN [...] Time Diagnosis LEXISCAN CARDIOLITE ELTON GROVER MD [facility] OP HRT 08/02/20 23 9:30AM 11:24AM Insurance Includes: Active Insurance Policies Plan Name Member ID Group # Subscriber Relationship Effect cyn Dates 1 - [employer] [id number] NIGHAT DELANEY Self Clinical Notes Includes: Clinical Notes from this encounter No Clinical Notes Recorded
== END 2024-10-22 12:33 | disposition home or self-care (01) ==
LOC: ANHBWCIMG 12:33
PROVIDERS: PCP Internal Medicine; Visit Provider Orthopaedic Surgery
DX: M25.531 Pain in right wrist (principal)
CPT/HCPCS: 73110

== ENCOUNTER 2024-11-05 12:30 | Outpatient (CLI) | payer OTHER, SELFPAY ==
--- NOTE | ~2024-11-05 | XR_ITS ---
XR wrist RT min 3V Ordering provider: Efren Rendon MD History: . M25.531 - Pain in right wrist - follow up . Comparison: October 22, 2024 FINDINGS: BONES: Comminuted fracture in the distal radius with the fracture in the distal ulna fixed by plate a nd screws. Lucent screw is seen near to the radius and ulna. There are moderate is displaced distally and seen opposite the trapezium bone. Displaced fragment is seen in the distal radius area. Cast is removed in the interval. JOINT SPACES: Narrowing of the radial carpal joint. SOFT TISSUES: Normal. IMPRESSION: Fracture of the distal radius and ulna with postoperative changes. Loose screws are noted with displa wiliam fragment. Reviewed, dictated and finalized at location A. IMPRESSION: Fracture of the distal radius and ulna with postoperative changes. Loose screws are noted with displaced fragment.
--- OUTSIDE RECORDS SUMMARY | 2024-11-05 14:22 | XMS_ITS | Encounter Summary ---
Author Organization [facility] Address [address] [place] [address] Care Team Providers Care Sales Representative Cash Registers Name Role Phone Yg Lee MD Primary Care Provider + Mitchell Zamarripa MD Unavailable [phone] Brit More NP Unavailable [phone] Cliff Ronquillo NP Unavailable [phone] Dick Aguilar Unavailable [phone] Gavin Sewell MD Unavailable [phone] Encounter Details Date Type Department Care Team (Late st Contact Info) Description 12/14/2021 Telephone [facility] [address] [place] [id number] Fariha Hampton, RT Social History Tobacco Use Types Packs/Day Years Used Date Smoking Tobacco: Former Smokeless Tobacco: Never Alcohol Use Standard Drinks/Week Comments Yes 0 (1 standard drink = 0.6 oz pur e alcohol) occasional Comments No Sex and Gender Information Value Date Recorded Sex Assigned at Not on file Legal Sex Female 11:50 PM [employer] Gender Identity Not on file Sexual Orientation [...] COVID: Suspected 07/22/2024 07/22/2024 07/22/2024 9:25 AM [employer] documented as of this encounter Care Teams Sales Representative Cash Registers Relationship Specialty Start Date End Date Yg Lee MD PCP - General Internal Medicine 08/19/20 Mitchell Zamarripa MD Referring Physician Rheumatology 03/11/22 Brit More NP Nurse Practitioner Cardiovascular Disease 03/11/22 Cliff Ronquillo NP [address] [place] [address] [address] [facility] [facility] [place] [address] Nurse Practitioner Nurse Practitioner 05/05/22 Dick Aguilar PA [address] [place] [address] DR [facility] [place] [address] Physician Clinical Education Manager Orthopedic Surgery 11/11/22 Gavin Sewell MD [address] [place] [address] DR CARLOS QUINTERO [address] [place] [id number] Surgeon Orthopedic Surgery 12/24/22 documented as of this encounter
--- OUTSIDE RECORDS SUMMARY | 2024-11-05 14:22 | XMS_ITS | Referral Summary ---
Author Organization [facility] Address [address] [place] [address] Care Team Providers Care Sack Filler Name Role Phone Shandra Ruffin Malcolm WISDOM-CHIEF SUPPLY CHAIN OFFICER Primary Care Provider Source Comments [facility],non-owned Affiliates and Associated Physician Practices is amultiple site organization consisting of ambulatory clinics and hospital sitesin [place], [place], [place] and [place]. This disclosure is being madepursuant to the Care Everywhere program and may not contain all information available regarding this patient. Last updated 18.[facility] Allergies Active Allergy Reactions Criticality Noted Date [...] LURIA, FLUZONE TRIVALENT; 6MO+) (IIV3) 06/16/2016,06/11/2015,06/01/2014,2012,06/14/2012,06/01/2011 Covid Open Mile primary monoval ent 12+ yr 0.3mL Purple [...] Comments COMPREHENSIVE METABOLIC PANEL 08/31/2022 9:26 AM AIR EXPORT AGENT from Last 3 Months or Most Recently Relevant to Health Maintenance Results * (ABNORMAL) COMPREHENSIVE METABOLIC PANEL (08/31/2022 9:26 AM AIR EXPORT AGENT) Glucose 105(H) 65 - 99 mg/dL [facility] [...] 29 U/L [facility] Comment: Test Performed at: [facility] [address] [place] [address] LUISA LAWRENCE DO,MPH 08/31/2022 9:26 AM AIR EXPORT AGENT 08/31/2022 9:27 AM AIR EXPORT AGENT Mitchell Zamarripa MD LAB - CHEMISTRY INGRID DE GUZ[facility] Organization Address City/State/ZIP Co de Phone Number [facility] [address] [place] [address] from Last 3 Months or Most Recently Relevant to Health Maintenance Advance Directives * FULL RESUSCITATION (Latest Code Status on File) Date Activated Date Inactivated Comments 11/08/2011 12:50 PM 11/10/2011 12:21 AM Care Teams Sack Filler Relationship Specialty Start Date End Date Shandra Ruffin, WOUND CARE RN-CHIEF SUPPLY CHAIN OFFICER [address] [place] [id number] PCP - General 04/02/22
--- OUTSIDE RECORDS SUMMARY | 2024-11-05 14:22 | XMS_ITS | Clinical Summary ---
Author Organization [facility] Address [address] [place] [address] Phone Care Team Providers Care Cafe Attendant Name Role Phone JAM MCDONNELL PA-C Primary Care Provider [phone] Reason for Visit and Chief Complaint HEART [...] apnea, unspecified, Supraventricular tachycardia, unspecified [facility] H[facility] 11/14/2023 Last Documented On 4 12:05PM ; [facility] Medical History Includes: Medical History addressed [...] CENTER CHECK UP [facility] 4 10:58AM 11:28AM Insurance Includes: Active Insurance Policies Plan Name Member ID Group # Subscriber Relationship Effect cyn Dates 1 - [employer] [id number] NIGHAT DELANEY Self Clinical Notes Includes: Clinical Notes from this encounter No Clinical Notes Recorded
--- OUTSIDE RECORDS SUMMARY | 2024-11-05 14:22 | XMS_ITS | Patient Health Summary ---
Author Organization [facility] Address [address] [place] [address] Care Team Providers Care Kinesiologist Name Role Phone Shandra Ruffin Malcolm [address] POLICE OFFICER Primary Care Provider Note from [facility],non-owned Affiliates and Associated Physician Practices is amultiple site organization consisting of ambulatory clinics and hospital sitesin [place], [place], [place] and [place]. This disclosure is being madepursuant to the Care Everywhere program and may not contain all information available regarding this patient. Last updated 18.[facility] Allergies * Ciprofloxacin(Other,Myalgias) -Medium Criticality * Citrullus [...] 06/11/2015, 06/01/2014, 07/28/2013, 06/14/2012, 06/01/2011) * Covid First30Days primary monovalent 12+ yr 0.3mL Purple cap(Given [...] * CENTROMERE B ANTIBODIES(Performed 03/31/2021) * MONTIEL (SM)+PRODUCT SUPPORT ANALYST ANTIBODY PANEL(Performed 03/31/2021) * MARTHA-1 ANTIBODY(Performed 03/31/2021) [...] for Arthritis, Myalgia, Hx of psoriasis * PRODUCT SUPPORT ANALYST ANTIBODY(Performed 05/24/2019) Performed for Arthritis, Myalgia, Hx [...] * (ABNORMAL) C-REACTIVE PROTEIN (08/31/2022 9:26 AM TELECOMMUNICATIONS ADMINISTRATOR) Only the most recent of6 resultswithin the time period is included. Pathologist [facility] C-Reactive Protein 27.6(H) <8.0 mg/L [facility] Comment: REPORT COMMENT: FASTING:YES Test Performed at: [facility], [place] [address] LUISA LAWRENCE DO,MPH 08/31/2022 9:26 AM TELECOMMUNICATIONS ADMINISTRATOR 08/31/2022 9:27 AM TELECOMMUNICATIONS ADMINISTRATOR Mitchell Zamarripa MD LAB - CHEMISTRY INGRID DE GUZMAN [facility] [address] [place] [address] * ERYTHROCYTE SEDIMENTATION RATE (08/31/2022 9:26 AM TELECOMMUNICATIONS ADMINISTRATOR) Only the most recent of6 resultswithin the time period is included. Pathologist [facility] Erythrocyte Sedimentation Rate Westergren 25 < OR = 30 mm/h [facility] Comment: Test Performed at: [facility] [address], [place] [address] LUISA LAWRENCE DO,MPH 08/31/2022 9:26 AM TELECOMMUNICATIONS ADMINISTRATOR 08/31/2022 9:27 AM TELECOMMUNICATIONS ADMINISTRATOR Mitchell Zamarripa MD LAB - HEMATOLOGY ORD ERABLES [facility] [address] [place] [address] * (ABNORMAL) CBC WITH DIFFERENTIAL (08/31/2022 9:26 AM TELECOMMUNICATIONS ADMINISTRATOR) Only the most recent of6 resultswithin the [...] 0.9 % [facility] Comment: Test Performed at: [facility] [address] [place] [address] LUISA LAWRENCE DO,MPH Blasts [facility] nRBC [facility] Comments [facility] Comment: Test Performed at: [facility] [address] [employer] [address] LUISA LAWRENCE DO,MPH 08/31/2022 9:26 AM TELECOMMUNICATIONS ADMINISTRATOR 08/31/2022 9:27 AM TELECOMMUNICATIONS ADMINISTRATOR Mitchell Zamarripa MD LAB - HEMATOLOGY ORD [facility] Organization Address City/State/ZIP Co de Phone Number [facility] [address] [place] [address] * (ABNORMAL) COMPREHENSIVE METABOLIC PANEL (08/31/2022 9:26 AM TELECOMMUNICATIONS ADMINISTRATOR) Only the most recent of6 resultswithin the [...] 29 U/L [facility] Comment: Test Performed at: [facility] [address] [place] [address] LUISA LAWRENCE DO,MPH 08/31/2022 9:26 AM TELECOMMUNICATIONS ADMINISTRATOR 08/31/2022 9:27 AM TELECOMMUNICATIONS ADMINISTRATOR Mitchell Zamarripa MD LAB - CHEMISTRY ORDE GAB Performing Organization Address [facility] de Phone Number [facility] [address] [place] [phone] * URINALYSIS W/MICROSCOPIC NO CULTURE (08/11/2021 8:16 AM TELECOMMUNICATIONS ADMINISTRATOR) Only the most recent of3 resultswithin the time period is included. Color UA YELLOW YELLOW [facility] Appearance CLEAR CLEAR [facility] Specific [place] UA 1.010 1.001 - 1.035 [facility] pH [...] SEEN /LPF [facility] Comment: Test Performed at: [facility], [place] [address] LUISA LAWRENCE DO,MPH Granular Casts [facility] Casts UA [facility] Yeast [facility] Comments [facility] Note [facility] Comment: Test Performed at: [facility], [place] [address] LUISA LAWRENCE DO,MPH 08/11/2021 8:16 AM TELECOMMUNICATIONS ADMINISTRATOR 08/11/2021 8:17 AM TELECOMMUNICATIONS ADMINISTRATOR Mitchell Zamarripa MD LAB - URINALYSIS ORD ERABLES Performing Organization Address [facility] Co de Phone Number [facility] [address] [place] [address] * URIC ACID BLOOD (08/11/2021 8:16 AM TELECOMMUNICATIONS ADMINISTRATOR) Only the most recent of4 resultswithin the time period is included. Uric Acid 5.8 2.5 - 7.0 mg/dL [facility] Comment: Therapeutic target for gout patients: <6.0 mg/dL Test Performed at: [facility] [address] LUISA LAWRENCE DO,MPH 08/11/2021 8:16 AM TELECOMMUNICATIONS ADMINISTRATOR 08/11/2021 8:17 AM TELECOMMUNICATIONS ADMINISTRATOR Mitchell Zamarripa MD LAB - CHEMISTRY INGRID Galvez Organization Address City/State/ZIP Co de Phone Number [facility] [address] [place] [address] * XR FOOT RIGHT 3VW OR MORE (08/03/2021 2:52 PM TELECOMMUNICATIONS ADMINISTRATOR) Only the most recent of2 resultswithin the time period is included. Anatomical Region Laterality Modality Ankle / Foot Radiographic Kristyn ging 08/03/2021 2:57 PM TELECOMMUNICATIONS ADMINISTRATOR Impressions 08/03/2021 3:17 PM TELECOMMUNICATIONS ADMINISTRATOR IMPRESSION: 1. Right hand: Mild arthritis of [...] 3:17 PM . Narrative 08/03/2021 3:17 PM TELECOMMUNICATIONS ADMINISTRATOR Exam: 1.XR HAND RIGHT 3VW 2.XR FOOT [...] osteophytes. There is moderate narrowing of the oqcubesl-dotemizho-xxymfymbd joint space. No erosions are seen. The [...] osteophytes. There is moderate narrowing of the mhcfaokr-pipwulido-qghcnpbdz joint space. No erosions are seen. Thebones [...] LEFT 3VW OR MORE (08/03/2021 2:52 PM TELECOMMUNICATIONS ADMINISTRATOR) Only the most recent of2 resultswithin the time period is included. Anatomical Region Laterality Modality Ankle / Foot Radiographic Kristyn ging 08/03/2021 2:57 PM TELECOMMUNICATIONS ADMINISTRATOR Impressions 08/03/2021 3:17 PM TELECOMMUNICATIONS ADMINISTRATOR IMPRESSION: 1. Right hand: Mild arthritis of [...] 3:17 PM . Narrative 08/03/2021 3:17 PM TELECOMMUNICATIONS ADMINISTRATOR Exam: 1.XR HAND RIGHT 3VW 2.XR FOOT [...] osteophytes. There is moderate narrowing of the jzdteypf-uqkzovhhn-kizjzmqle joint space. No erosions are seen. The [...] osteophytes. There is moderate narrowing of the whtayykz-xheiqihps-avvkbimoo joint space. No erosions are seen. Thebones [...] RIGHT 3VW OR MORE (08/03/2021 2:52 PM TELECOMMUNICATIONS ADMINISTRATOR) Only the most recent of2 resultswithin the time period is included. Anatomical Region Laterality Modality Wrist / Hand Radiographic Kristyn ging 08/03/2021 2:57 PM TELECOMMUNICATIONS ADMINISTRATOR Impressions 08/03/2021 3:17 PM TELECOMMUNICATIONS ADMINISTRATOR IMPRESSION: 1. Right hand: Mild arthritis of [...] 3:17 PM . Narrative 08/03/2021 3:17 PM TELECOMMUNICATIONS ADMINISTRATOR Exam: 1.XR HAND RIGHT 3VW 2.XR FOOT [...] osteophytes. There is moderate narrowing of the ttoinppe-ckxijgprp-aztcwozuj joint space. No erosions are seen. The [...] osteophytes. There is moderate narrowing of the xfajzzah-ilpkzhpkw-qvxqtxpsc joint space. No erosions are seen. Thebones [...] LEFT 3VW OR MORE (08/03/2021 2:52 PM TELECOMMUNICATIONS ADMINISTRATOR) Only the most recent of2 resultswithin the time period is included. Anatomical Region Laterality Modality Wrist / Hand Radiographic Kristyn ging 08/03/2021 2:57 PM TELECOMMUNICATIONS ADMINISTRATOR Impressions 08/03/2021 3:17 PM TELECOMMUNICATIONS ADMINISTRATOR IMPRESSION: 1. Right hand: Mild arthritis of [...] 3:17 PM . Narrative 08/03/2021 3:17 PM TELECOMMUNICATIONS ADMINISTRATOR Exam: 1.XR HAND RIGHT 3VW 2.XR FOOT [...] osteophytes. There is moderate narrowing of the ohcauqnl-etftajgtw-qysgjmjsh joint space. No erosions are seen. The [...] osteophytes. There is moderate narrowing of the vnlowexv-cbnmmdibs-fiulatboz joint space. No erosions are seen. Thebones [...] RIGHT 3VW OR MORE (08/03/2021 2:52 PM TELECOMMUNICATIONS ADMINISTRATOR) Anatomical Region Laterality Modality Wrist / Hand Radiographic Kristyn ging 08/03/2021 2:57 PM TELECOMMUNICATIONS ADMINISTRATOR Impressions 08/03/2021 3:17 PM TELECOMMUNICATIONS ADMINISTRATOR IMPRESSION: 1. Right hand: Mild arthritis of [...] 3:17 PM . Narrative 08/03/2021 3:17 PM TELECOMMUNICATIONS ADMINISTRATOR Exam: 1.XR HAND RIGHT 3VW 2.XR FOOT [...] osteophytes. There is moderate narrowing of the xcnwrrpy-zonquaycs-ryoxngbyx joint space. No erosions are seen. The [...] osteophytes. There is moderate narrowing of the jgqwdxsr-hpkxubhiw-ibfnrkait joint space. No erosions are seen. Thebones [...] LEFT 3VW OR MORE (08/03/2021 2:52 PM TELECOMMUNICATIONS ADMINISTRATOR) Anatomical Region Laterality Modality Wrist / Hand Radiographic Kristyn ging 08/03/2021 2:57 PM TELECOMMUNICATIONS ADMINISTRATOR Impressions 08/03/2021 3:17 PM TELECOMMUNICATIONS ADMINISTRATOR IMPRESSION: 1. Right hand: Mild arthritis of [...] 3:17 PM . Narrative 08/03/2021 3:17 PM TELECOMMUNICATIONS ADMINISTRATOR Exam: 1.XR HAND RIGHT 3VW 2.XR FOOT [...] osteophytes. There is moderate narrowing of the hjeizdzq-wezvafmts-odgebgrmx joint space. No erosions are seen. The [...] osteophytes. There is moderate narrowing of the recivcsh-mwcuibysu-werseptyn joint space. No erosions are seen. Thebones [...] MD DIAGNOSTIC IMAGING O RDERABLES * MONTIEL (SM)+PRODUCT SUPPORT ANALYST ANTIBODY PANEL (03/31/2021 9:59 AM CDT) SM Antibody <1.0 NEG <1.0 NEG AI [facility] SM/PRODUCT SUPPORT ANALYST Antibody <1.0 NEG <1.0 NEG AI [facility] Comment: Test Performed at: [facility] [address] [place] [address] LUISA LAWRENCE DO,MPH 03/31/2021 9:59 AM CDT 03/31/2021 9:59 AM CDT Mitchell Zamarripa MD LAB - SEROLOGY ORDER XOCHITL Performing Organization Address [facility] Co de Phone Number [facility] [address] [place] [address] * CENTROMERE B ANTIBODIES (03/31/2021 9:59 AM CDT) Centromere B Antibody <1.0 NEG <1.0 NEG AI [facility] Comment: Test Performed at: [facility] [address] [place] [address] LUISA LAWRENCE DO,MPH 03/31/2021 9:59 AM CDT 03/31/2021 9:59 AM CDT Mitchell Zamarripa MD LAB - SEROLOGY ORDER XOCHTIL Performing Organization Address [facility] Co de Phone Number [facility] [address] [place] [address] * CHROMATIN ANTIBODY (03/31/2021 9:59 AM CDT) Chromatin Nucleosomal Antibody <1.0 NEG <1.0 NEG AI [facility] Comment: Test Performed at: [facility] [place] [address] [facility]ITAL[facility] [address] LUISA LAWRENCE DO,MPH 03/31/2021 9:59 AM CDT 03/31/2021 9:59 AM CDT Mitchell Zamarripa MD LAB - SEROLOGY ORDER XOCHITL Performing Organization Address [facility] Co de Phone Number [facility] [address] [place] [address] * RNA POLYMERASE III ANTIBODY IGG (03/31/2021 9:59 AM CDT) RNA Polymerase 3 Antibody <20 <20 Units [facility] Comment: Test Performed at: [facility] [address] [place] [address] JONATHAN LUQUE MD,PHD,JAQUELINE 03/31/2021 9:59 AM CDT 03/31/2021 9:59 AM CDT Mitchell Zamarripa MD LAB - SEROLOGY ORDER XOCHITL Performing Organization Address City/[facility] Co de Phone Number [facility] [address] [place] [address] * PM/SCL-100 ANTIBODY IGG (03/31/2021 9:59 AM CDT) PM Scl 100 AB <20 <20 Units [facility] Comment: Negative: <20 Weak Positive: 20 - 39 Moderate Positive: 40 - 80 Strong Positive: >80 Comments: This test was developed and its performance characteristics determined by [facility]. It has not been cleared or approved by the Food and Drug Administration. Test Performed at: [employer] [address] [place] [id number] NATALYA PEREZ MD 03/31/2021 9:59 AM CDT 03/31/2021 9:59 AM CDT Mitchell Zamarripa MD LAB - SEROLOGY ORDER XOCHITL Performing Organization Address [facility] Co de Phone Number [facility] [address] [place] [address] * HISTONE ANTIBODY (03/31/2021 9:59 AM CDT) [facility] Histone Antibodies <1.0 U [facility] Comment: Value Expanation of Results <1.0 Negative 1.0-1.5 Weak Positive 1.6-2.5 Moderate Positive >2.5 Strong Positive Test Performed at: [facility] [facility] [address] [place] [address] JONATHAN LUQUE MD,PHD,JAQUELINE 03/31/2021 9:59 AM CDT 03/31/2021 9:59 AM CDT Mtichell Zamarripa MD LAB - CHEMISTRY INGRID DE GUZMAN Performing Organization Address City/[facility] Co de Phone Number [facility] [address] [place] [address] * SS-B (SJOGREN'S) ANTIBODY (03/31/2021 9:59 AM CDT) Only the most recent of2 resultswithin the time period is included. Sjogren's Antibodies (SSB) <1.0 NEG <1.0 NEG AI [facility] Comment: Test Performed at: [facility] [address] [place] [address] LUISA LAWRENCE DO,MPH 03/31/2021 9:59 AM CDT 03/31/2021 9:59 AM CDT Mitchell Zamarripa MD LAB - CHEMISTRY BROADUSLeidy COX BRANSONJOSTIN Performing Organization Address [facility] [place] [address] * SS-A (SJOGREN'S) ANTIBODY (03/31/2021 9:59 AM CDT) Only the most recent of2 resultswithin the time period is included. Sjogren's Antibodies (SSA) <1.0 NEG <1.0 NEG AI [facility] Comment: Test Performed at: [facility] [address] LUISA LAWRENCE DO,MPH 03/31/2021 9:59 AM CDT 03/31/2021 9:59 AM CDT Mitchell Zamarripa MD LAB - CHEMISTRY INGRID DE GUZMAN Performing Organization Address [facility] Co de Phone Number [facility] [phone] [place] [address] * SCLERODERMA 70 (SCL) ANTIBODY (03/31/2021 9:59 AM CDT) Only the most recent of2 resultswithin the time period is included. SCL-70 Antibody <1.0 NEG <1.0 NEG AI [facility] Comment: Test Performed at: [facility]OSPITALIL[facility] [address] [facility] [place] [address] LUISA LAWRENCE DO,MPH 03/31/2021 9:59 AM CDT 03/31/2021 9:59 AM CDT Mitchell Zamarripa MD LAB - CHEMISTRY INGRID DE GUZMAN Performing Organization Address [facility] Co de Phone Number [facility] [phone] [place] [address] * DNA ANTIBODY DOUBLE STRANDED (03/31/2021 9:59 AM CDT) dsDNA Antibody <1 IU/mL [facility] Comment: IU/mL Interpretation < or = 4 Negative 5-9 Indeterminate > or = 10 Positive Test Performed at: [facility], [place] [address] LUISA LAWRENCE DO,MPH 03/31/2021 9:59 AM CDT 03/31/2021 9:59 AM CDT Mitchell Zamarripa MD LAB - HEMATOLOGY SANAZ ORANTES Performing Organization Address [facility] Co de Phone Number [facility] [phone] [place] [address] * MARTHA-1 ANTIBODY (03/31/2021 9:59 AM CDT) Martha-1 Antibody <1.0 NEG <1.0 NEG AI [facility] Comment: Test Performed at: [facility], [place] [address] LUISA LAWRENCE DO,MPH 03/31/2021 9:59 AM CDT 03/31/2021 9:59 AM CDT Mitchell Zamarripa MD LAB - CHEMISTRY INGRID DE GUZMAN Performing Organization Address [facility] Co de Phone Number [place] [phone] * ALDOLASE (03/31/2021 9:59 AM CDT) Only the most recent of3 resultswithin the time period is included. Aldolase 5.2 < OR = 8.1 U/L [facility] Comment: Test Performed at: [facility] [address] [address], [place] [address] LUISA LAWRENCE DO,MPH 03/31/2021 9:59 AM CDT 03/31/2021 9:59 AM CDT Mitchell Zamarripa MD LAB - CHEMISTRY INGRID DE GUZMAN Performing Organization Address [facility] Co de Phone Number [facility] [phone] [place] [address] * LDH BLOOD (03/31/2021 9:59 AM CDT) Only the most recent of3 resultswithin the time period is included. LD-Total 181 120 - 250 U/L [facility] Comment: Test Performed at: [facility] [address] LUISA LAWRENCE DO,MPH 03/31/2021 9:59 AM CDT 03/31/2021 9:59 AM CDT Micthell Zamarripa MD LAB - CHEMISTRY INGRID DE GUZMAN Performing Organization Address [facility] Co de Phone Number [facility] [phone] [place] [address] * CK BLOOD (03/31/2021 9:59 AM CDT) Only the most recent of3 resultswithin the time period is included. CK 68 29 - 143 U/L [facility] Comment: Test Performed at: [facility] [address] LUISA LAWRENCE DO,MPH 03/31/2021 9:59 AM CDT 03/31/2021 9:59 AM CDT Mitchell Zamarripa MD LAB - CHEMISTRY INGRID DE GUZMAN Performing Organization Address [facility] Co de Phone Number [facility] [address] [place] [phone] * CULTURE URINE REFLEXED I (12/21/2019 8:29 AM CDT) Reflexive Urine Culture NO CULTURE INDICATED [facility] Comment: Test Performed at: [facility], [place] [address] LUISA LAWRENCE DO,MPH 12/21/2019 8:29 AM CDT 12/21/2019 8:31 AM CDT Mitchell Zamarripa MD LAB - MICROBIOLOGY O RDERABLES Performing Organization Address [facility] de Phone Number [facility] [address] [place] [address] * (ABNORMAL) URINALYSIS W/MICROSCOPIC REFLEX TO CULTURE (12/21/2019 8:29 AM CDT) Color UA YELLOW YELLOW [facility] Appearance CLOUDY(A) CLEAR [facility] Specific [place] UA 1.016 1.001 - 1.035 [facility] pH [...] MUCOUS THREADS [facility] Comment: Test Performed at: [employer] [facility] [address] LUISA LAWRENCE DO,MPH Reflexive Urine Culture NO CULTURE INDICATED [facility] Comment: REPORT COMMENT: FASTING:YES Test Performed at: [place] [address] LUISA LAWRENCE DO,MPH Urine URINE SPECIMEN OBTAINED BY CLEAN CATCH PROCEDURE / Unknown 12/21/2019 8:29 AM CDT 12/21/2019 8:31 AM CDT Mitchell Zamarripa MD LAB - URINALYSIS ORD ERABLES Performing Organization Address [facility] Co de Phone Number [facility] [address] [place] [address] * (ABNORMAL) TY BLOOD SINGLE PATTERN (07/23/2019 2:21 PM TELECOMMUNICATIONS ADMINISTRATOR) TY Pattern Speckled( A) 07/25/2019 5:39 PM TELECOMMUNICATIONS ADMINISTRATOR [employer] ([facility]) TY Titer 1:80(A) 07/25/2019 5:39 PM TELECOMMUNICATIONS ADMINISTRATOR [employer] [facility] ([facility]) Comment: Performed by [facility], [address] [place] [address],[place] [address] [email or web address], Barry Carmona MD, Lab. Director Blood BLOOD SPECIMEN / Unknown Lab Venipuncture / Unknown 07/23/2019 2:21 PM TELECOMMUNICATIONS ADMINISTRATOR 07/23/2019 3:13 PM TELECOMMUNICATIONS ADMINISTRATOR Janes Smith MD LAB - CHEMISTRY INGRID DE GUZMAN [facility] [employer] [facility]) [address] [place] [address], [facility] * (ABNORMAL) SCLERODERMA COMPREHENSIVE AB PANEL (07/23/2019 2:21 PM TELECOMMUNICATIONS ADMINISTRATOR) TY HEp-2 IgG Detected(H ) <1:80 07/26/2019 7:52 PM TELECOMMUNICATIONS ADMINISTRATOR [facility] [employer] ([facility]) TY Interpretive Comment See Note 07/26/2019 7:52 PM TELECOMMUNICATIONS ADMINISTRATOR [facility] [employer] ([facility]) Comment: Speckled Pattern Clinical associations: SLE, SSc, SjS, DM, PM, MCTD, UCTD. May also be found in healthy individuals Main autoantibodies: Anti-SSA-52 (Ro52), anti-SSA-60 (Ro60), anti-SS-B/LA, anti-Kareem-1 (anti-Scl-70), Montiel, anti-U1-PRODUCT SUPPORT ANALYST, anti-U2-PRODUCT SUPPORT ANALYST, anti-Mi-2, anti-TIF1g, anti-Ku, anti-RNA polymerase, anti-DFS70/LEDGF-P75 Clinical [...] 0 - 40 AU/mL 07/26/2019 7:52 PM [facility] [employer] ([facility]) Comment: INTERPRETIVE INFORMATION: Scleroderma (Scl-70) [...] testing for centromere, RNA polymerase III and U3-PRODUCT SUPPORT ANALYST, PM/Scl, or Th/To antibodies. RNA Polymerase 3 Antibody IgG 5 0 - 19 Units 07/26/2019 7:52 PM [facility] [employer] ([facility]) Comment: INTERPRETIVE INFORMATION: RNA Polymerase [...] antibodies associated with SSc, including centromere, Scl-70, U3-PRODUCT SUPPORT ANALYST, PM/Scl, or Th/To. Montiel/PRODUCT SUPPORT ANALYST (LAUREN) Antibody IgG 1 0 - 40 AU/mL 07/26/2019 7:52 PM [facility] [employer] ([facility]) Comment: INTERPRETIVE INFORMATION: Montiel/PRODUCT SUPPORT ANALYST (LAUREN) Antibody, IgG 29 AU/mL or Less ............. Negative 30 - 40 AU/mL ................ Equivocal 41 AU/mL or Greater .......... Positive Montiel/PRODUCT SUPPORT ANALYST antibodies are frequently seen in patients with mixed connective tissue disease (MCTD) and are also associated with other systemic autoimmune rheumatic diseases (SARDs) such as systemic lupus erythematosus (SLE), systemic sclerosis, and myositis. Antibodies targeting the Montiel/PRODUCT SUPPORT ANALYST antigenic complex also recognize Montiel antigens, therefore, the Montiel antibody response must be considered when interpreting these results. PM/Scl 100 Antibody IgG Negative Negative 07/26/2019 7:52 PM [facility] [employer] ([facility]) Comment: INTERPRETIVE INFORMATION: PM/Scl-100 Antibody, [...] occur. Test developed and characteristics determined by [facility]. See Compliance Statement D: [employer]fon/CS Fibrillarin (U3 PRODUCT SUPPORT ANALYST) Antibody IgG Negative Negative 07/26/2019 7:52 PM TELECOMMUNICATIONS ADMINISTRATOR [facility] [employer] ([facility]) Comment: Interpretive Information: Fibrillarin (U3 PRODUCT SUPPORT ANALYST) Antibody, IgG The presence of fibrillarin (U3-PRODUCT SUPPORT ANALYST) IgG antibodies in association with an TY [...] a multi-ethnic cohort of SSc patients (n=98), U3-PRODUCT SUPPORT ANALYST antibodies detected by immunoblot had an agreement of 98.9 percent with the gold standard immunoprecipitation (IP) assay. Approximately 71 percent (5/7) of the borderline U3-PRODUCT SUPPORT ANALYST results with TY nucleolar pattern in this cohort were IP negative. Test developed and characteristics determined by [facility]. See Compliance Statement D: [employer]/CS Performed by [facility], [address] [place] [address] [email or web address], Barry Carmona MD, Lab. Director Blood BLOOD SPECIMEN / Unknown Lab Venipuncture / Unknown 07/23/2019 2:21 PM TELECOMMUNICATIONS ADMINISTRATOR 07/23/2019 3:13 PM TELECOMMUNICATIONS ADMINISTRATOR Janes Smith MD LAB - SEROLOGY ORDER XOCHITL [employer] ([facility]) [address] [place] [address], [facility] * CYCLIC CITRUL PEPTIDE ANTIBODY IGG/IGA (CCP) (07/23/2019 2:21 PM TELECOMMUNICATIONS ADMINISTRATOR) CCP Antibodies IgG/IgA 10 0 - 19 units 07/24/2019 11:06 PM TELECOMMUNICATIONS ADMINISTRATOR [facility] ([facility]) Comment: Negative <20 Weak positive 20 - 39 Moderate positive 40 - 59 Strong positive >59 Blood BLOOD SPECIMEN / Unknown Lab Venipuncture / Unknown 07/23/2019 2:21 PM TELECOMMUNICATIONS ADMINISTRATOR 07/23/2019 3:13 PM TELECOMMUNICATIONS ADMINISTRATOR Narrative [facility] ([facility]) - 07/24/2019 11:06 PM TELECOMMUNICATIONS ADMINISTRATOR Performed at: - [address] [id number] Home Service Director: Virginia Mojica MD, Phone: [phone] Janes Smith MD LAB - SEROLOGY ORDER XOCHITL [facility] ([facility]) [address] [place] [address] * DNA ANTIBODY DS CRITHIDIA TITER (07/23/2019 2:21 PM TELECOMMUNICATIONS ADMINISTRATOR) [facility] dsDNA Antibody IgG <1:10 <1:10 2018 4:54 PM TELECOMMUNICATIONS ADMINISTRATOR [employer] [facility] ([facility]) Comment: INTERPRETIVE INFORMATION: Double-Stranded DNA [...] recommendations for testing may be found at http://www.Yumber.com/Topics/AutoimmuneDz/ConnectiveTissueDz/i ndex.html. Performed by [facility], [address] [place] [id number] [email or web address], Barry Carmona MD, Lab. Director Blood BLOOD SPECIMEN / Unknown Lab Venipuncture / Unknown 07/23/2019 2:21 PM TELECOMMUNICATIONS ADMINISTRATOR 07/23/2019 3:13 PM TELECOMMUNICATIONS ADMINISTRATOR Janes Smith MD LAB - SEROLOGY ORDER XOCHITL [facility] ([facility]) [address] * (ABNORMAL) LUPUS ANTICOAGULANT PANEL (07/23/2019 2:21 PM TELECOMMUNICATIONS ADMINISTRATOR) APTT 28.3 23.0 - 38.4 Seconds 07/24/2019 11:07 AM [facility] PT 11.6(L) 12.1 - 14.8 Seconds 07/24/2019 11:07 AM [facility] INR 0.9 See Comment 07/24/2019 11:07 AM [facility] [place] Buffer 46.5 Seconds 019 11:07 AM [facility] [place] Phospholipid 42.7 Seconds 07/24/2019 11:07 AM [facility] [place] Delta 3.8 <8.0 Seconds 07/24/2019 11:07 AM [facility] Interpretation [place] Negative Negative 07/24/2019 11:07 AM [facility] Comment:Up to 15-20% of crystal ents [...] Lab Venipuncture / Unknown 07/23/2019 2:21 PM TELECOMMUNICATIONS ADMINISTRATOR 07/23/2019 3:13 PM TELECOMMUNICATIONS ADMINISTRATOR Janes Smith MD LAB - HEMATOLOGY ORD ERABLES [facility] [address] [phone] * RHEUMATOID FACTOR BLOOD QUANTITATIVE (07/23/2019 2:21 PM TELECOMMUNICATIONS ADMINISTRATOR) Rheumatoid Factor <15 <30 IU/mL 07/23/2019 3:42 PM [facility] Blood BLOOD SPECIMEN / Unknown Lab Venipuncture / Unknown 07/23/2019 2:21 PM TELECOMMUNICATIONS ADMINISTRATOR 07/23/2019 3:13 PM TELECOMMUNICATIONS ADMINISTRATOR Janes Smith MD LAB - CHEMISTRY INGRID [facility] Organization Address City/State/ZIP Co de Phone Number [facility] [address] [phone] * OCT (06/25/2019 1:43 PM CDT) Anatomical Region Laterality Modality Other 06/25/2019 1:43 PM CDT Janes Smith MD OPHTHALMOLOGY SERVIC ES ORDERABLES * (ABNORMAL) URINALYSIS REFLEX TO MICROSCOPIC NO CULTURE (05/24/2019 12:43 PM CDT) Color UA Yellow Straw, Yellow, Colorless 05/24/2019 1:10 PM [facility] Clarity UA Clear Clear, Slt Cloudy 05/24/2019 1:10 PM T [facility] Specific [place] UA 1.014 1.005 - 1.030 05/24/2019 1:10 PM [facility] pH UA 7.0 5.0 - 8.0 pH 05/24/2019 1:10 PM [facility] Protein UA Negative Negative mg/dL 05/24/2019 1:10 PM [facility] Glucose UA Negative Negative mg/dL 05/24/2019 1:10 PM [facility] Ketone UA Negative Negative mg/dL 05/24/2019 1:10 PM [facility] Bilirubin UA Negative Negative mg/dL 05/24/2019 1:10 PM [facility] Blood UA Negative Negative 05/24/2019 1:10 PM [facility] Nitrite UA Negative Negative 05/24/2019 1:10 PM [facility] Leukocyte Esterase Negative Negative 05/24/2019 1:10 PM [facility] Urobilinogen UA Negative Negative mg/dL 05/24/2019 1:10 PM [facility] RBC UA 3-5 None Seen, 0-2, 3-5 /HPF 05/24/2019 1:10 PM CDT [facility] WBC UA 0-5 None Seen, 0-5 /HPF 05/24/2019 1:10 PM CDT [facility] Squamous Epithelial Cells UA 3-5(A) None Seen, 0-2 /HPF 05/24/2019 1:10 PM CDT [facility] Urine URINE SPECIMEN OBTAINED BY CLEAN CATCH PROCEDURE / Unknown Collection / Unknown 05/24/2019 12:43 PM CDT 05/24/2019 12:55 PM CDT Narrative [facility] - 05/24/2019 1:10 PM CDT Janes Smith MD LAB - URINALYSIS ORD ERABLES Performing Organization Address City/State/[facility] Co de Phone Number [address] [phone] * XR ANKLE RIGHT 3VW OR MORE [...] IgG units 05/26/2019 6:08 AM CDT [facility] ([facility]) Comment: The reference interval reflects a 3SD or 99th percentile interval, which is thought to represent a potentially clinically significant result in accordance with the International Consensus Statement on the classification criteria for definitive antiphospholipid syndrome (APS). J Thromb Haem 2006;4:295-306. Blood BLOOD SPECIMEN / Unknown Lab Venipuncture / Unknown 05/24/2019 12:10 PM CDT 05/24/2019 12:49 PM CDT Narrative [facility] ([facility]) - 05/26/2019 6:08 AM CDT Performed at: 01 - [facility] [id number] Home Service Director: Virginia Mojica MD, Phone: [phone] Janes Smith MD LAB - SEROLOGY ORDER XOCHITL Performing Organization Address [facility] Co de Phone Number [facility] ([facility]) [address] [place] [address], [place] * BETA-2 GLYCOPROTEIN 1 ANTIBODY IGM (05/24/2019 12:10 PM CDT) [facility] Beta-2 Glycoprotein I Antibody IgM <9 0 - 32 GPI IgM units 05/26/2019 3:07 PM CDT [facility] ([facility]) Comment: The reference interval reflects a 3SD or 99th percentile interval, which is thought to represent a potentially clinically significant result in accordance with the International Consensus Statement on the classification criteria for definitive antiphospholipid syndrome (APS). J Thromb Haem 2006;4:295-306. Blood BLOOD SPECIMEN / Unknown Lab Venipuncture / Unknown 05/24/2019 12:10 PM CDT 05/24/2019 12:49 PM CDT Narrative [facility] ([facility]) - 05/26/2019 3:07 PM CDT Performed at: 01 - [address] [id number] Home Service Director: Virginia Mojica MD, Phone: [phone] Janes Smith MD LAB - SEROLOGY ORDER XOCHITL Performing Organization Address [facility] Co de Phone Number [facility]) [address] [place] [address], [place] * CARDIOLIPIN ANTIBODY IGA (05/24/2019 12:10 PM CDT) Pathologist [facility] Cardiolipin Antibody IgA <9 0 - 11 APL U/mL 05/25/2019 4:09 PM CDT [facility] ([facility]) Comment: Negative: <12 Indeterminate: 12 - 20 Low-Med Positive: >20 - 80 High Positive: >80 Blood BLOOD SPECIMEN / Unknown Lab Venipuncture / Unknown 05/24/2019 12:10 PM CDT 05/24/2019 12:49 PM CDT Narrative [facility] ([facility]) - 05/25/2019 4:09 PM CDT Performed at: [address] [place] [id number] Home Service Director: Khang Rosario PhD, Phone: [phone] Janes Smith MD LAB - SEROLOGY ORDER XOCHITL Performing Organization Address City/[facility] Co de Phone Number [facility] ([facility]) [address] [place] [address] * CARDIOLIPIN ANTIBODY IGM (05/24/2019 12:10 PM CDT) Pathologist [facility] Cardiolipin Antibody IgM <9 0 - 12 MPL U/mL 05/25/2019 4:09 PM CDT [facility] Comment: Negative: <13 Indeterminate: 13 - 20 Low-Med Positive: >20 - 80 High Positive: >80 Blood BLOOD SPECIMEN / Unknown Lab Venipuncture / Unknown 05/24/2019 12:10 PM CDT 05/24/2019 12:49 PM CDT Narrative [facility] ([facility]) - 05/25/2019 4:09 PM CDT Performed at: [address] [place] [id number] Home Service Director: Khang Rosario PhD, Phone: [phone] Janes Smith MD LAB - SEROLOGY ORDER XOCHITL Performing Organization Address City/[facility]/ZIP Co de Phone Number [facility] ([facility]) [address] [place] [address] * CARDIOLIPIN ANTIBODY IGG (05/24/2019 12:10 PM CDT) Pathologist [facility] Cardiolipin Antibody IgG <9 0 - 14 GPL U/mL 05/25/2019 4:09 PM CDT [facility] ([facility]) Comment: Negative: <15 Indeterminate: 15 - 20 Low-Med Positive: >20 - 80 High Positive: >80 Blood BLOOD SPECIMEN / Unknown Lab Venipuncture / Unknown 05/24/2019 12:10 PM CDT 05/24/2019 12:49 PM CDT Narrative [facility] ([facility]) - 05/25/2019 4:09 PM CDT Performed at: - [facility] [address] [place] [id number] Home Service Director: Khang Rosario PhD, Phone: [phone] Janes Smith MD LAB - SEROLOGY ORDER XOCHITL Performing Organization Address City/[facility]/ZIP Co de Phone Number [facility] ([facility]) [address] [place] [address] * MONTIEL (SM) ANTIBODY LAUREN (05/24/2019 12:10 PM CDT) Pathologist [facility] Montiel Antibody 3.4 0.0 - 19.9 Units 05/25/2019 10:05 AM CDT [facility] Comment: LAUREN Antibody Numeric Result Interpretation: <20.0 Units: Negative 20.0 - 39.0 Units: Weakly Positive >39.0 Units: Positive Blood BLOOD SPECIMEN / Unknown Lab Venipuncture / Unknown 05/24/2019 12:10 PM CDT 05/24/2019 12:48 PM CDT Janes Smith MD LAB - CHEMISTRY INGRID DE GUZMAN [address] [phone] * PRODUCT SUPPORT ANALYST ANTIBODY (05/24/2019 12:10 PM CDT) [facility] SM/PRODUCT SUPPORT ANALYST Antibody 3.2 0.0 - 19.9 Units 05/25/2019 10:05 AM CDT [facility] Comment: LAUREN Antibody Numeric Result Interpretation: <20.0 Units: Negative 20.0 - 39.0 Units: Weakly Positive >39.0 Units: Positive Blood BLOOD SPECIMEN / Unknown Lab Venipuncture / Unknown 05/24/2019 12:10 PM CDT 05/24/2019 12:48 PM CDT Janes Smith MD LAB - CHEMISTRY INGRID DE GUZMAN Performing Organization Address City/[facility]/ZIP Co de Phone Number [facility] [address] [place] [address] * TY BLOOD SCREEN W/REFLEX TITER (05/24/2019 12:10 PM CDT) TY Negative 05/25/2019 5:07 PM CDT [facility] ([facility]) Comment: Negative <1:80 Borderline 1:80 Positive >1:80 Blood BLOOD SPECIMEN / Unknown Lab Venipuncture / Unknown 05/24/2019 12:10 PM CDT 05/24/2019 12:49 PM CDT Narrative [facility] ([facility]) - 05/25/2019 5:07 PM CDT Performed at: [address] [place] [id number] Home Service Director: Khang Rosario PhD, Phone: [phone] Janes Smith MD LAB - CHEMISTRY INGRID DE GUZMAN Performing Organization Address City/[facility] Co de Phone Number [facility] ([facility]) [address] [place] [address] * BETA-2 GLYCOPROTEIN 1 ANTIBODY IGA (05/24/2019 12:10 PM CDT) Beta-2 Glycoprotein I Antibody IgA <9 0 - 25 GPI IgA units 05/26/2019 6:08 AM CDT [facility] ([facility]) Comment: The reference interval reflects a 3SD or 99th percentile interval, which is thought to represent a potentially clinically significant result in accordance with the International Consensus Statement on the classification criteria for definitive antiphospholipid syndrome (APS). J Thromb Haem 2006;4:295-306. Blood BLOOD SPECIMEN / Unknown Lab Venipuncture / Unknown 05/24/2019 12:10 PM CDT 05/24/2019 12:49 PM CDT N[facility]ative [facility]) - 05/26/2019 6:08 AM CDT Performed at: [address] [place] [id number] Home Service Director: Virginia Mojica MD, Phone: [phone] Janes Smith MD LAB - SEROLOGY ORDER XOCHITL Performing Organization Address [facility] Co de Phone Number [facility] ([facility]) [address] [place] [address] * COMPLEMENT TOTAL (05/24/2019 12:10 PM CDT) Pathologist [facility] Complement Total CH50 >60 42 - 750517 U/mL 05/25/2019 3:08 PM CDT [facility] ([facility]) Blood BLOOD SPECIMEN / Unknown Lab Venipuncture / Unknown 05/24/2019 12:10 PM CDT 05/24/2019 12:49 PM CDT [facility] ([facility]) - 05/25/2019 3:08 PM CDT Performed at: [address] [place] [address] [place] [id number] Home Service Director: Khang Rosario PhD, Phone: [phone] Janes Smith MD LAB - CHEMISTRY ORDLeidy DE GUZMAN Performing Organization Address City/[facility] Co de Phone Number [facility]) [address] [place] [address] * VITAMIN D 25-HYDROXY (05/24/2019 12:10 PM CDT) Pathologist [facility] Vitamin D, 25 Hydroxy 62.3 See comment: ng/mL 05/24/2019 1:48 PM CDT [facility] Comment: The recommendations [...] MD LAB - CHEMISTRY INGRID DE GUZMAN [address] [phone] * COMPLEMENT C4 (05/24/2019 12:10 PM CDT) Complement C4 39 15 - 57 mg/dL 05/24/2019 1:27 PM CDT [facility] Blood BLOOD SPECIMEN / Unknown Lab Venipuncture / Unknown 05/24/2019 12:10 PM CDT 05/24/2019 12:48 PM CDT Janes Smith MD LAB - SEROLOGY ORDER XOCHITL Performing Organization Address [facility]/[place] [address], [facility] [phone] * COMPLEMENT C3 (05/24/2019 12:10 PM CDT) Complement C3 151 82 - 193 mg/dL 05/24/2019 1:27 PM CDT [facility] Blood BLOOD SPECIMEN / Unknown Lab Venipuncture / Unknown 05/24/2019 12:10 PM CDT 05/24/2019 12:48 PM CDT Janes Smith MD LAB - CHEMISTRY INGRID DE GUZMAN Performing Organization Address City/[facility]/[place] [address], [facility] [phone] * CARDIAC RHYTHM STRIP ORDER (11/11/2011 11:11 AM CDT) Narrative Transcriptions Document, Scanned - 11/11/2011 11:11 AM CDT Scanned Document CARDIAC SERVICES ORD ERABLES * CARDIAC ECHOCARDIOGRAM COMPLETE ORDER (11/11/2011 11:11 AM CDT) Narrative Transcriptions Document, Scanned - 11/11/2011 11:11 AM CDT Scanned Document ECHO ORDERABLES * BLOOD TYPE VERIFICATION (10/28/2011 8:35 AM TELECOMMUNICATIONS ADMINISTRATOR) ABO Rh B Pos SEE BELOW [facility] Comment: Weak D testing is not performed at [facility] BLOOD SPECIMEN / Unknown 10/28/2011 8:35 AM TELECOMMUNICATIONS ADMINISTRATOR 10/28/2011 9:53 AM TELECOMMUNICATIONS ADMINISTRATOR Emery Zepeda MD LAB - BLOOD BANK ORD [email or web address] Performing Organization Address [facility] de Phone Number [facility] [address] [place] [address] * TYPE + SCREEN PANEL (10/28/2011 8:30 AM TELECOMMUNICATIONS ADMINISTRATOR) ABO Rh B Pos SEE BELOW [facility] Comment: Weak D testing is not performed at [facility] Antibody Screen Neg [facility] Previous History Check Done Historical blood type on record, type verification complete. [facility] Miscellaneous samples (specimen) BLOOD SPECIMEN / Unknown 10/28/2011 8:30 AM TELECOMMUNICATIONS ADMINISTRATOR 10/28/2011 9:23 AM TELECOMMUNICATIONS ADMINISTRATOR Emery Zepeda MD LAB - BLOOD BANK ORD [email or web address] Performing Organization Address City/[facility] Co de Phone Number [facility] [address] [place] [address] * CBC W/O DIFFERENTIAL (10/28/2011 8:30 AM TELECOMMUNICATIONS ADMINISTRATOR) WBC 9.4 4.0 - 10.0 K/CUMM [facility] RBC 4.41 3.80 - 5.80 M/CUMM [facility] Hemoglobin 14.1 12.0 - 16.0 gm/dL [facility] Hematocrit 41.2 37.0 - 47.0 % [facility] MCV 93.4 80.0 - 100.0 fl [facility] MCH 32.0 26.0 - 34.0 pg [facility] MCHC 34.2 31.0 - 37.0 gm/dL [facility] RDW 12.5 11.5 - 14.5 % [facility] Platelet Count 373 150 - 400 K/CUMM [facility] Blood specimen (specimen) BLOOD SPECIMEN / Unknown 10/28/2011 8:30 AM TELECOMMUNICATIONS ADMINISTRATOR 10/28/2011 9:22 AM TELECOMMUNICATIONS ADMINISTRATOR Emery Zepeda MD LAB - HEMATOLOGY ORD ERABLES Performing Organization Address [facility] Co de Phone Number [facility] [address] [place] [address] * BASIC METABOLIC PANEL (CALCIUM TOTAL) (10/28/2011 8:30 AM TELECOMMUNICATIONS ADMINISTRATOR) Sodium 141 136 - 145 mmol/L [facility] Potassium 3.9 3.5 - 5.1 mmol/L [facility] Chloride 103 98 - 107 mmol/L [facility] BUN 15 7 - 21.0 mg/dl [facility] Creatinine 0.86 0.5 - 1.3 mg/dl [facility] Glucose 81 65 - 105 mg/dl [facility] CO2 30 22 - 30 mmol/L [facility] Calcium 9.3 8.5 - 10.1 mg/dl [facility] eGFR by MDRD >60 >60 mL/min/1.7 3m2 [facility] Comment eGFR [facility] Comment: The eGFR does not apply to patients who are younger than 18 or older than 70. Blood specimen (specimen) BLOOD SPECIMEN / Unknown 10/28/2011 8:30 AM TELECOMMUNICATIONS ADMINISTRATOR 10/28/2011 9:22 AM TELECOMMUNICATIONS ADMINISTRATOR Emery Zepeda MD LAB - CHEMISTRY ORDLeidy DE GUZMAN Performing Organization Address City/[facility] Co de Phone Number [facility] [address] [place] [address] * CULTURE URINE COMPREHENSIVE (06/12/2011 10:00 AM CDT) Culture SEE NOTE [facility] ([facility]) Comment: CULTURE, URINE, SPECIAL MICRO NUMBER: [id number] TEST STATUS: FINAL SPECIMEN SOURCE: URINE (CATHETER COLLECTED) SPECIMEN QUALITY: ADEQUATE RESULT: No Growth NO COLLECTION DATE RECEIVED. WE HAVE USED THE DATE THE SPECIMEN WAS RECEIVED BY THIS LABORATORY THE COLLECTION DATE. IF THIS IS INCORRECT, PLEASE CONTACT CLIENT SERVICES. PHONE NUMBER: [phone] Test Performed at: [facility] [address] [id number] LUISA LAWRENCE DO Urine specimen (specimen) URINE SPECIMEN COLLECTION, CATHETERIZED / Unknown 06/12/2011 10:00 AM CDT 06/10/2011 1:12 AM CDT Narrative [facility] ([facility]) - 06/12/2011 10:00 AM CDT Preferred Lab:->[facility] Emery Zepeda MD LAB - MICROBIOLOGY O RDERABLES [facility] ([facility]) * URINALYSIS - POINT OF CARE (AMB) [facility] (08/29/1998 12:00 AM TELECOMMUNICATIONS ADMINISTRATOR) Glucose UA neg [facility] Bilirubin UA POCT neg [facility] Ketones UA POCT neg [facility] Specific [place] UA 1.010 [facility] Blood Urine POCT neg [facility] pH UA 5.0 [facility] Protein UA neg [facility] Urobilinogen UA neg [facility] Nitrite UA neg [facility] WBC UA neg [facility] Urine specimen (specimen) 08/29/1998 Emery Zepeda MD LAB - POINT OF CARE ORDERABLES [facility] Care Teams Kinesiologist Relationship Specialty Start Date End Date Shandra Ruffin, ENGINEERING TECHNICAL SPECIALIST-[employer] [address] POLICE OFFICER [address] [place] [address] PCP - General 04/02/22
--- OUTSIDE RECORDS SUMMARY | 2024-11-05 14:22 | XMS_ITS ---
Author Organization [facility] Address [address] [place] [address] Phone Care Team Providers Care Landscape Architecture Professor Name Role Phone JAM MCDONNELL PA-C Primary Care Provider [phone] Plan of Treatment No Plan of Treatment [...] On 07/08/2010 5:57PM By ALVIN BASS ; [facility] Premarin 1.25 MG OR TABS 09/02/2009 - 08/28/2010 Provi anastasia: Diagnosis: Last Documented On 11/11/2009 9:36AM By BONNIE MORALES ; [facility] Premarin 1.25 MG OR TABS 07/23/2008 - 07/18/2009 Provi anastasia: Diagnosis: Last Documented On 11/11/2009 9:37AM By BONNIE MORALES ; [facility] Amoxicillin 500 MG OR TABS 07/03/2007 - 07/13/2007 Pro vider: Diagnosis: Last Documented On 11/11/2009 9:38AM By BONNIE MORALES ; [facility] Premarin 1.25 MG OR TABS 07/05/2006 - 06/30/2007 Provi anastasia: Diagnosis: Last Documented On 11/11/2009 9:39AM By BONNIE MORALES ; [facility] Premarin 1.25 MG OR TABS 08/27/2005 - 07/23/2006 Provi anastasia: Diagnosis: Last Documented On 11/11/2009 9:40AM By BONNIE MORALES ; [facility] Medications Administered Includes: Administered Medications in patient's chart No Administered Medications Recorded Results Includes: Results from 11/06/2023 through 11/05/2024 No Results Recorded For Specified Dates History of Present Illness History of Present Illness not supported for this document type No History of Present Illness Recorded Social History Description Last Updated 11/11/2009 Last Documented On 0 9:43AM ; [facility] Exercise frequency was three times/week 11/11/2009 Last Documented On 0 9:43AM ; [facility] Exercising regularly 11/11/2009 Last Documented On 0 9:43AM ; [facility] Sexually active 11/11/2009 Last Documented On 0 9:43AM ; [facility] Sexually active with 1 partners in the l ast year 11/11/2009 Last Documented On 0 9:43AM ; [facility] Smoking Status Unknown Procedures and Surgical History Includes: Procedures from 11/06/2023 through 11/05/2024 Procedures Code Diagnosis Performing Provider Service Location Service Date CLINIC FACILITY FEE (Signi/Sep Eval & Man) G0463 Nonrheumatic mitral (valve) insufficiency, Paroxysmal atrial fibrillation, Obstructive sleep apnea (adult) (pediatric), Essential (primary) hypertension [facility] 12/13/2023 Last Documented On 4 2:24PM ; [facility] CLINIC FACILITY FEE (Signi/Sep Eval & Man) 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, Sleep apnea, unspecified, Supraventricular tachycardia, unspecified [facility] 11/14/2023 Last Documented On 4 12:05PM ; [facility] Medical History Includes: Medical History in patient's chart Description Last Updated HYSTERECTOMY ~BTL 11/11/2009 Last Documented On 0 9:43AM ; [facility] 2 living children 11/11/2009 Last Documented On 0 9:43AM ; [facility] A mammogram was performed 11/11/2009 Last Documented On 0 9:43AM ; [facility] A Pap smear was performed 11/11/2009 Last Documented On 0 9:43AM ; [facility] weight: was 7.4 lbs 11/11/2009 Last Documented On 0 9:43AM ; [facility] Breast problems 11/11/2009 Last Documented On 0 9:43AM ; [facility] Delivery date 1983 11/11/2009 Last Documented On 0 9:43AM ; [facility] Duration of labor: was six hr 11/11/2009 Last Documented On 0 9:43AM ; [facility] Gestational age: was 40 weeks 11/11/2009 Last Documented On 0 9:43AM ; [facility] 2 11/11/2009 Last Documented On 0 9:43AM ; [facility] History of the 2nd : 11/11/2009 Last Documented On 0 9:43AM ; [facility] Last mammogram date: 07/19/08 11/11/2009 Last Documented On 0 9:43AM ; [facility] Last pap smear date 200711/11/2009 Last Documented On 0 9:43AM ; [facility] Oral contraceptives 11/11/2009 Last Documented On 0 9:43AM ; [facility] Status post tubal ligation 11/11/2009 Last Documented On 0 9:43AM ; [facility] Family History Includes: Family History in patient's chart Description Last Updated Family history of Cancer 11/11/2009 Last Documented On 0 9:43AM ; [facility] Family history of thyroid disease 2009 Last Documented On 0 9:43AM ; [facility] Family medical history of high blood pre ssure 11/11/2009 Last Documented On 0 9:43AM ; [facility] Review of Systems Review of Systems not supported for this document type No Review of Systems Recorded Mental Status No Mental Status Recorded Functional Status No Functional Status Recorded Physical Exam Physical Exam not supported for this document type No Physical Exam Recorded Allergies Includes: Active, inactive, and resolved Allergies No Known Allergies Encounters Includes: Encounters from 11/06/2023 through 11/05/2024 Encounter Provider Location Date Check-In Time Check- Out Time Diagnosis HOSPITAL FOLLOW UP EXAM TIFFANY SAUCEDO ANP [facility]- 4 12:43PM 1:47PM [facility] CHECK UP TIFFANY HOWARD [facility]- 4 10:58AM 11:28AM Insurance Includes: Active Insurance Policies Plan Name Member ID Group # Subscriber Relationship Effect cyn Dates 1 - [employer] [id number] NIGHAT Guevara Clinical Notes Includes: Signed Clinical Notes starting from 09/17/2022 No Clinical Notes Recorded
--- OUTSIDE RECORDS SUMMARY | 2024-11-05 14:22 | XMS_ITS | Clinical Summary ---
Author Organization [facility] [employer] Address [address] [place] [address] Care Team Providers Care Attending Radiologist Name Role Phone Shandra Ruffin Malcolm WISDOM-SHIRRING 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 AUTOMATIC Primary Care Provider Source Comments [facility] [employer],non-owned Affiliates and Associated Physician Practices is amultiple site organization consisting of ambulatory clinics and hospital sitesin [place], [place], [place] and [place]. This disclosure is being madepursuant to the Care Everywhere program and may not contain all information available regarding this patient. Last updated 18.[facility] [employer] Allergies Active Allergy Reactions Criticality Noted Date [...] LURIA, FLUZONE TRIVALENT; 6MO+) (IIV3) 06/16/2016,06/11/2015,06/01/2014,2012,06/14/2012,06/01/2011 Covid [employer] primary monoval ent 12+ yr 0.3mL Purple [...] Comments COMPREHENSIVE METABOLIC PANEL 08/31/2022 9:26 AM DIRECTOR SCRIPT from Last 3 Months or Most Recently Relevant to Health Maintenance Results * (ABNORMAL) COMPREHENSIVE METABOLIC PANEL (08/31/2022 9:26 AM DIRECTOR SCRIPT) Glucose 105(H) 65 - 99 mg/dL [facility] [...] 29 U/L [facility] Comment: Test Performed at: [facility] [address] [place] [address] LUISA LAWRENCE DO,MPH 08/31/2022 9:26 AM DIRECTOR SCRIPT 08/31/2022 9:27 AM DIRECTOR SCRIPT Mitchell Zamarripa MD LAB - CHEMISTRY [facility]GR[facility] [address] [place] [address] from Last 3 Months or Most Recently Relevant to Health Maintenance Advance Directives * FULL RESUSCITATION (Latest Code Status on File) Date Activated Date Inactivated Comments 11/08/2011 12:50 PM 11/10/2011 12:21 AM Care Teams Attending Radiologist Relationship Specialty Start Date End Date Shandra Ruffin, CENTRIFUGAL STATION OPERATOR-SHIRRING 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 AUTOMATIC [address] [place] [id number] PCP - General 04/02/22
--- OUTSIDE RECORDS SUMMARY | 2024-11-05 14:22 | XMS_ITS | Clinical Summary ---
Author Organization [facility] Address [address] [place] [address] Care Team Providers Care Unit Manager Rn Name Role Phone Yg Lee MD Primary Care Provider [phone] Allergies Active Allergy Reactions Criticality Noted Date [...] (Dexilant) 60 mg Delayed Release capsule Lot: [id number] Ex: 10/21 Qty: 8 5 Capsule Active [...] on 04/05/2024 fluticasone propionate (FLONASE) 50 mcg/spray [place], Suspension nasal inhaler USE 1 OR 2 [...] Active apixaban (ELIQUIS) 5 mg tablet Lot: [id number] ex: 05/2025 qty: 8 14 Tablet Active [...] t be different from the original. [facility] [id number] 09/01/22 Problem Noted Date Diagnosed Date Pulmonary [...] Device Data STL ABSTRACTION Provider, Abstract 10/15/[address] [place] [address] Yg Lee MD Gastroesophageal reflux disease without esophagitis 10/12/[address] [place] [address] [place] [address] Provider, Abstract 10/05/[address] [place] [address] [place] [address] Yg Lee MD Needs Appointment 09/20/2024 External Device Data STL ABSTRACTION Provider, Abstract 09/19/[address] [place] [address] Yg Lee MD Essential hypertension, benign 09/11/2024 External Device Data STL ABSTRACTION Provider, Abstract 08/21/2024 [place] [address] [place] [address] Provider, Abstract 08/16/2024 [place] [address] [place] [address] Yg Lee MD Other specified anxiety disorders 08/15/2024 [place] [address] [place] [address] Yg Lee MD Provider Call from Last 3 Months Immunizations Immunization Administration Dates Next Due (ADACEL/BOOSTRIX)(10 YR UP) TDAP VACCINE, 0.5ML, IM 06/15/2011 (PFIZER)(12 YR UP) COVID-19 VACCINE - EMERGENCY USE AUTHORIZATION, MRNA, [id number](PF) 30 MCG/0.3 ML IM SUSP 04/22/2021,04/01/2021 (PNEUMOVAX 23)(50 YRS UP) PN EUMOCOCCAL POLYSACCHARIDE (PPV23) 0.5 ML, IM 07/18/2017,06/15/2011 (PREVNAR 13)(6 WKS UP) PNEUM OCOCCAL CONJUGATE (PCV13) 0.5 ML, IM 10/20/2020 (PREVNAR 20)(6 WKS UP) PNEUM OCOCCAL CONJUGATE VACCINE 20-VALENT (PCV20), POLYSACCHARIDE [id number] CONJUGATE, ADJUVANT 0.5 ML (PF) IM 02/23/2023 [...] on file Legal Sex 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 Gender Identity Not on file Sexual Orientation [...] Care Team (Late st Contact Info) Description 12/04/2024 3:00 PM CDT Office Visit [facility] [address] [place] [address] Yg Lee MD [address] [place] [address] [address] [place] [address] Health Maintenance Due Date Last [...] history exists Medical Devices Implanted Type Area Life Specialist Device Identifier Shelf Expiration Date Model / Serial / Lot Stent Pncrtc Frmn Flx 5fr 5cm 6552 - [id number] Implanted:Qty: 1 on 02/24/2018 by John White MD at [facility] Stent N/A: Pancreas [employer] [id number] 09/29/2022 [id number] / / [id number] Procedures Procedure Name Priority Date/Time Associated Diagnosis Comments HEMOGLOBIN A1C Routine 06/15/2024 9:16 AM CDT Abnormal glucose MAMMO 3D KIRILL SCREEN BILAT W OR WO CAD Routine 05/16/2024 1:15 PM CDT Screening mammogram, encounter for from Last 3 Months or Most Recently Relevant to Health Maintenance Results * HEMOGLOBIN A1C (06/15/2024 9:16 AM CDT) HEMOGLOBIN A1C 5.2 <5.7 % of total Hgb [facility] Comment: For the purpose of screening for the presence of diabetes: <5.7% Consistent with the absence of diabetes 5.7-6.4% Consistent with increased risk for diabetes (prediabetes) > or =6.5% Consistent with diabetes This assay result is consistent with a decreased risk of diabetes. Currently, no consensus exists regarding use of hemoglobin A1c for diagnosis of diabetes in children. According to [place] Diabetes Association (ADA) guidelines, hemoglobin A1c <7.0% represents optimal control in non- diabetic patients. Different metrics may apply to specific patient populations. Standards of Medical Care in Diabetes(ADA). ESTIMATED AVERAGE GLUCOSE (MG/DL) 103 mg/dL [facility] ESTIMATED AVERAGE GLUCOSE (MMOL/L) 5.7 mmol/L [facility] Comment: FASTING:YES FASTING: YES Test Performed at: [place] [place] [address] [place] [address] Ceferino Dasilva Blood 06/15/2024 9:16 AM CDT 06/15/2024 9:17 AM CDT us Yg Lee MD CHEMISTRY ORDERABLES Final Re sult [facility] [phone] [facility] [place] [address] [place] [address] * MAMMO 3D KIRILL SCREEN BILAT W [...] 1 - Negative. 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
--- OUTSIDE RECORDS SUMMARY | 2024-11-05 14:23 | XMS_ITS | Clinical Summary ---
Author Organization [facility] Address [address] [place] [address] Care Team Providers Care Medical Sales Consultant Name Role Phone Mariah Adams MD Primary Care Provider + Mitchell Zamarripa MD Unavailable [phone] Brit More NP Unavailable [phone] Cliff Ronquillo NP Unavailable [phone] Dick Aguilar Unavailable [phone] Gavin Sewell MD Unavailable Allergies Active Allergy [...] 1 tablet (100 mcg total) by mouth product merchandiser before breakfast 1 Active celecoxib (CeleBREX) 100 [...] for 14 days 28 capsule 5 Active Active Problems Problem Noted Date Diagnosed Date Calculus of gallbladder with cholecystitis without biliary obstruction 08/14/2024 Assessment & Plan (08/14/2024 9:48 AM CRANE RIGGER): The patient likely has chronic cholecystitis given [...] atrial fibrillation 11/25/2023 ACS (acute coronary syndrome) 11/23/2023 Persistent atrial fibrillation 11/22/2023 Assessment & Plan [...] (04/23/2022): Added automatically from request for surgery [id number] Posterior tibial tendon dysfunction 03/02/2022 Flat foot [...] 01/04/2018 Assessment & Plan (09/19/2018 1:30 PM CRANE RIGGER): Low disease activity today on exam. Take [...] Department Care Team Description 09/10/2024 9:16 AM CRANE RIGGER Anesthesia Event [facility] Operating Room [address] [place] [address] Tonia Gutierrez MD Reynolds, Ethan Emerson, MD 09/10/2024 9:15 AM CRANE RIGGER - 09/10/2024 10:45 AM CRANE RIGGER Surgery [facility] Operating Room [address] [place] [address] Vignesh Hawkins MD LAPAROSCOPIC CHOLECYSTECTOMY 09/10/2024 8:13 AM CRANE RIGGER - 09/10/2024 2:39 PM CRANE RIGGER Hospital Encounter [facility] Operating Room [address] [place] [address] Vignesh Hawkins MD Calculus of gallbladder with cholecystitis without biliary obstruction, unspecified cholecystitis acuity Discharge Disposition: Discharge to home or self care 08/14/2024 9:30 AM CRANE RIGGER Office Visit [facility] [address] [place] [address] [address] [place] [address] Vignesh Hawkins MD Calculus of gallbladder with cholecystitis without biliary obstruction, unspecified cholecystitis acuity from Last 3 Months Immunizations Immunization Administration [...] by TW Conv) Osteoporosis Arthritis Atrial fibrillation (HCC) Depression Heart murmur Hypercholesteremia Stroke (HCC) [...] How often do you attend chur or catholic services? Never 12/23/2022 Do you belong to any clubs o r organizations such as alevism groups, unions, fraternal or athletic groups, or [...] staff should administer the PHQ-9) 0 11/23/2023 [facility] - Occupational Stress [...] place to sleep or slept in a assisted (including now)? No 12/23/2022 Personal Safety Answer Date Recorded Have you ever been in or are you currently in a harmful physical or emotional relationship or is someone making you feel afraid or unsafe? Denies 09/10/2024 Comments No Sex and Gender Information Value Date Recorded Sex Assigned at Not on file Legal Sex Female 11:50 PM CRANE RIGGER Gender Identity Not on file Sexual Orientation Not on file Obstetrics History Last Filed Vital Signs Vital Sign Reading Time Taken Comments Blood Pressure 119/69 09/10/2024 2:00 PM CRANE RIGGER Pulse 69 09/10/2024 2:00 PM CRANE RIGGER Temperature 36.4 C (97.6 F) 09/10/2024 2:00 PM CRANE RIGGER Respiratory Rate 16 09/10/2024 2:00 PM CRANE RIGGER Oxygen Saturation 94% 09/10/2024 2:00 PM CRANE RIGGER Inhaled Oxygen Concentration - - Weight 67.6 kg (149 lb 0.5 oz) 09/10/2024 8:15 A M CRANE RIGGER Height 154.9 cm (5' 1 ) 09/10/2024 8:15 AM CRANE RIGGER Body Mass Index 28.16 09/10/2024 8:15 AM CRANE RIGGER Plan of Treatment Health Maintenance Due Date [...] Completed 11/01/2014 Medical Devices Implanted Type Area Supervisor Composing Room Device Identifier Shelf Expiration Date Model / Serial / Lot Exactech Restrictor Cement Cemex Small Od13mm Tpa-13 - [id number] Implanted:Qty: 1 on 05/04/2022 by Gavin Sewell MD at [facility] Left: Shoulder Exactech 08/28/2023 TPA-13 / / [id number] Exactech Equinoxe Reverse Shoulder +0mm Tray Humeral Adapter 320-10-00 - [id number] - [id number] Implanted:Qty: 1 on 05/04/2022 by Gavin Sewell MD at [facility] Exactech [id number] 04/07/2032 320-10-00 / [id number] / [employer] Equinoxe 40mm Small Reverse Constrain Shoulder +2.5mm Liner 320-40-13 - [id number] - [id number] Implanted:Qty: 1 on 05/04/2022 by Gavin Sewell MD at [facility] Ex[employer]ech 01/31/2024 320-40- / [id number] / Ex[employer]ech Equinoxe Lock Reverse Shoulder Glenosphere Screw Bone -15- - [id number] - [id number] Implanted:Qty: 1 on 05/04/2022 by Gavin Sewell MD at [facility] Left: Shoulder Exactech 03/09/2027 [id number] / [id number] / Exactech Reverse Torque Define Shoulder Kit Screw 320-20- - [id number] - [id number] Implanted:Qty: 1 on 05/04/2022 by Gavin Sewell MD at [facility] Left: Shoulder Ex[employer]ech 02/03/2027 320-20- / [id number] / Ex[employer]ech Equinoxe Small Reverse Superior Posterior Augment Shoulder Left 320-35-07 - [id number] - [id number] Implanted:Qty: 1 on 05/04/2022 by Gavin Sewell MD at [facility] Left: Shoulder Ex[employer]ech [id number] 04/08/2031 320-35-07 / [id number] / Ex[employer]ech Equinoxe 10mm Stem Humeral Sterile 300- - [id number] - [id number] Implanted:Qty: 1 on 05/04/2022 by Gavin Sewell MD at [facility] Left: Shoulder Ex[employer]ech [id number] 09/07/2031 300-09-07 / [id number] / [employer] Cement Bone Simplex Gentamicin High Viscosity 40 6195-1-001 - [id number] Implanted:Qty: 1 on 05/04/2022 by Gavin Sewell MD at [facility] Left: Shoulder [employer] 09/28/2023 6195-1-001 / / [id number] Exactech Equinoxe 40mm 24.3mm Small Reverse Shoulder Sphere Glenoid 320-31-40 - [id number] - [id number] Implanted:Qty: 1 on 05/04/2022 by Gavin Sewell MD at [facility] Left: Shoulder [employer]ech [id number] 12/11/2030 320-31-40 / [id number] / [employer]ech Equinoxe 4.5mm 38mm Kit Compression Lock Cap Reverse Shoulder 320-20-38 - [id number] - [id number] Implanted:Qty: 1 on 05/04/2022 by Gavin Sewell MD at [facility] Left: Shoulder [employer] [id number] 01/12/2027 320-20-38 / [id number] / [employer]ech Equinoxe 4.5mm 34mm Kit Compression Lock Cap Reverse Shoulder 320-20-34 - [id number] - [id number] Implanted:Qty: 1 on 05/04/2022 by Gavin Sewell MD at [facility] Left: Shoulder Exactech [id number] 07/14/2026 320-20-34 / [id number] / [employer] Insert Tibial Knee Fixed Lm Posterior Stabilized Attune 7mm Size 5 Polyethylene [id number] - [id number] Implanted:Qty: 1 on 11/10/2022 by Gavin Sewell MD at [facility] Left: Knee [employer] 07/28/2030 [id number] / / [id number] [employer] Attune Cruciate Retain Cementless Knee Left 5 Component Femoral [id number] - [id number] Implanted:Qty: 1 on 11/10/2022 by Gavin Sewell MD at [facility] Left: Knee [employer] 04/28/2032 [id number] / / [id number] [employer] Attune Fb Tib Base Sz 5 Por [id number] - [id number] Implanted:Qty: 1 on 11/10/2022 by Gavin Sewell MD at [facility] Left: Knee [employer] 03/28/2032 [id number] / / [id number] Procedures Procedure Name Priority Date/Time Associated Diagnosis Comments SURGICAL PATHOLOGY Routine 09/10/2024 10 :29 AM CRANE RIGGER Calculus of gallbladder with cholecystitis without biliary obstruction, unspecified cholecystitis acuity DE AN ELECTIVE ENDOTRACHEAL AIRWAY Routine 09/10/2024 9:36 AM CRANE RIGGER LAPAROSCOPIC CHOLECYSTECTOMY 09/10/2024 9:02 AM CRANE RIGGER Calculus of gallbladder with cholecystitis without biliary obstruction, unspecified cholecystitis acuity EGFR STAT 09/10/2024 8:47 AM CRANE RIGGER DIFFERENTIAL AUTO STAT 09/10/2024 8:4 7 AM CRANE RIGGER ANTIBODY SCREEN STAT 09/10/2024 8:47 AM CRANE RIGGER ABO/RH STAT 09/10/2024 8:47 AM CRANE RIGGER TYPE AND SCREEN STAT 09/10/2024 8:47 AM CRANE RIGGER CBC WITH AUTO DIFFERENTIAL STAT 09/10/2024 8:47 AM CRANE RIGGER COMPREHENSIVE METABOLIC PANEL STAT 09/10/2024 8:47 AM CRANE RIGGER B ABO / RH CONFIRMATION TESTING STAT 09/10/2024 8:45 AM CRANE RIGGER SERUM HEPATITIS C AB Routine 11/01/2014 8:32 AM CRANE RIGGER DIGITAL MAMMOGRAPHY Routine 12/11/2013 1 1:01 AM CDT from Last 3 Months or Most Recently Relevant to Health Maintenance Results * Surgical pathology (09/10/2024 10:29 AM CRANE RIGGER) Tissue (Gallbladder) 09/10/2024 9:51 AM CRANE RIGGER Narrative PATHOLOGY [facility] ([place]) - 09/11/2024 3:50 PM CRANE RIGGER EPIC results best viewed via link to PDF [facility] Department of Pathology [address] [place], [place] [id number] Note to Patients: This report may contain [...] Final Report Patient Name: ANTOINETTE DELANEY Address: [address] [place] [address] Gender: F : 1960 (Age: 64) Service: Surgery Location: [facility] Hospital #: [id number] Patient Type: [facility] Taken: 09/10/2024 Received: 09/10/2024 Accessioned: 09/10/2024 Reported: [...] is received in a single container labeled ATNOINETTE DELANEY and gallbladder . It is a [...] the Surgical Pathology Department at [facility] as part of an ongoing senior quality assurance specialist program and in compliance with federally mandated [...] characteristics determined by the Surgical Pathology Department [facility]. It has not been cleared or approved by the U. S. Food and Drug Administration. Note for decalcified specimens: This assay has not been validated on decalcified tissues. Results should be interpreted with caution given the possibility of false negativity on decalcified specimens Vignesh Hawkins MD LAB PATHOLOGY OR DERABLES Final Result PATHOLOGY [facility] ([place] [id number] * DE AN ELECTIVE ENDOTRACHEAL AIRWAY (09/10/2024 9:36 AM CRANE RIGGER) Cliff Lake CRNA - 09/10/2024 9:36 AM CRANE RIGGER Cliff Davis CRNA 09/10/2024 9:37 AM Airway Patient location: OR Urgency: elective Indications for airway management: anesthesia and airway protection Difficult airway: no Staff: Placed by: ERP ENGINEER: Cliff Dvais CRNA Emergent airway documentation: Risks and benefits [...] nal Result * eGFR (09/10/2024 8:47 AM CRANE RIGGER) eGFR >90 >=60 mL/min/1. 73 m2 Comment: [...] last reviewed 2021. Blood 09/10/2024 8:47 AM CRANE RIGGER 09/10/2024 8:50 AM CRANE RIGGER us Vignesh Hawkins MD LAB BLOOD ORDERA BLES Final Result [facility] ([place]) 1 [facility] Department [place] [address] * Differential, auto (09/10/2024 8:47 AM CRANE RIGGER) Neutrophil abs 5.3 1.5 - 6.5 K/cumm [...] revised on 2017. Blood 09/10/2024 8:47 AM CRANE RIGGER 09/10/2024 8:50 AM CRANE RIGGER Vignesh Hawkins MD LAB BLOOD ORDERA BLES Final Result [facility] ([place]) 1 [facility] Department [place] [address] * (ABNORMAL) CBC with auto differential (09/10/2024 8:47 AM CRANE RIGGER) WBC 7.1 3.8 - 9.9 K/cumm Hgb [...] [facility] ([place]) Blood 09/10/2024 8:47 AM CRANE RIGGER 09/10/2024 8:50 AM CRANE RIGGER us Vignesh Hawkins MD LAB BLOOD ORDERA BLES Final Result [facility] ([place]) 1 [facility] Department [place] [address] * ABO/Rh (09/10/2024 8:47 AM CRANE RIGGER) Pathologist [facility] ABO/Rh B Positive Blood 09/10/2024 8:47 AM CRANE RIGGER 09/10/2024 8:49 AM CRANE RIGGER Narrative [facility] ([place]) - 09/10/2024 9:11 AM CRANE RIGGER Has the patient had Daratumumab or Isatuximab in the past 6 months?->Unknown Vignesh Hawkins MD LAB BLOOD BANK T EST ORDERABLES Final Result [facility] ([place]) 1 [facility] [place] [address] * Antibody screen (09/10/2024 8:47 AM CRANE RIGGER) [facility] Lonnie, indirect, Gel Interpretation Negative ABSC Blood 09/10/2024 8:47 AM CRANE RIGGER 09/10/2024 8:49 AM CRANE RIGGER Narrative [facility] ([place]) - 09/10/2024 9:25 AM CRANE RIGGER Has the patient had Daratumumab or Isatuximab in the past 6 months?->Unknown Vignesh Hawkins MD LAB BLOOD BANK T EST ORDERABLES Final Result Performing Organization Address City/[facility]/ZIP Co de Phone Number [facility] ([place]) 1 [facility] [place] [address] * (ABNORMAL) Comprehensive metabolic panel (09/10/2024 8:47 AM CRANE RIGGER) [facility] Sodium 133(L) 135 - 145 mmol/L Comment:sandra moreno(AMB SUrg) Potassium, pl 2.9(C) 3.3 - 4.9 mmol/L [facility] ([place]) Comment:Critical Result call ed by [email or web address] at 2024-09-10 09:18:13. Result Read Back by sandra moreno(AMB SUrg) Chloride 94(L) 97 - 110 mmol/L [facility] ([place]) Comment:sandra moreno(AMB SUrg) CO2 25 22 - 32 mmol/L [facility] ([place]) Comment:sandra moreno(AMB SUrg) Anion gap 14 2 - 15 mmol/L [facility] ([place]) Comment:sandra cisnerosr(AMB SUrg) BUN 12 6 - 25 mg/dL [facility] ([place]) Comment:sandra cisnerosr(AMB SUrg) Creatinine 0.68 0.60 [...] Comment:sandra moreno(AMB SUrg) Blood 09/10/2024 8:47 AM CRANE RIGGER 09/10/2024 8:50 AM CRANE RIGGER us Vignesh Hawkins MD LAB BLOOD ORDERA BLES Final Result [facility] ([place]) 1 [facility] Department [place] [address] * ABO / Rh Confirmation Testing (09/10/2024 8:45 AM CRANE RIGGER) ABO/Rh Confirmation B Positive [facility] Blood 09/10/2024 8:45 AM CRANE RIGGER 09/10/2024 9:13 AM CRANE RIGGER us Vignesh Hawkins MD LAB BLOOD ORDERA BLES Final Result [facility] ([place]) 1 [facility] Department [place] [address] [facility] * Serum Hepatitis C ab (11/01/2014 8:32 AM CRANE RIGGER) HCV ab Negative NEG HISTORICAL RESULTS Serum 11/01/2014 8:32 AM CRANE RIGGER Narrative HISTORICAL RESULTS - 11/02/2014 3:46 AM CRANE RIGGER Interpretive Data If confirmation is required, call Laboratory Customer Service to request sample to be sent to [facility] for Hepatitis C Virus (HCV) RNA Detection and Quantitation by Real-Time Reverse Ultrasound Tester-PCR (RT-PCR). Current interpretive data was last revised on 2011 us Fariha Whitley MD LAB BLOOD ORDERABLES Final R esult HISTORICAL RESULTS * DIGITAL MAMMOGRAPHY (12/11/2013 11:01 AM CDT) Anatomical Region Laterality Modality Breast Mammography 12/11/2013 11:0 1 AM CDT Narrative 12/12/2013 12:15 AM CDT Vm Mammogram Performed by: LT Screening Mamm Bi Acc#: [id number] DATE OF EXAM: Dec 11 2013 CLINICAL [...] Performed by: LT Screening Mamm Bi Acc#: [id number] DATE OF EXAM: Dec 11 2013 CLINICAL [...] Attending DR: MARIAH ADAMS Historical Provider MD ASHBYG MAMMO PROCEDURES Kristal l Result from Last 3 Months or Most Recently Relevant to Health Maintenance Insurance [employer] MEDICARE [place] [employer] PPO Advance Directives For more information, please contact: [phone] * Full Code (Latest Code Status on File) Date Activated Date Inactivated Comments 11/22/2023 6:25 PM 11/25/2023 11:09 PM * Full Code Date Activated Date Inactivated Comments 12/21/2022 5:34 PM 12/24/2022 8:16 PM * Full Code Date Activated Date Inactivated Comments 11/10/2022 4:25 PM 11/11/2022 3:51 PM * Full Code Date Activated Date Inactivated Comments 05/04/2022 1:38 PM 05/05/2022 6:47 PM Care Teams Medical Sales Consultant Relationship Specialty Start Date End Date Mariah Adams MD PCP - General Internal Medicine 08/19/20 Mitchell Zamarripa MD Referring Physician Rheumatology 03/11/22 Brit More NP Nurse Practitioner Cardiovascular Disease 03/11/22 Cliff Ronquillo NP [address] [place] [address] [address] [place] [address] Nurse Practitioner Nurse Practitioner 05/05/22 Dick Aguilar PA [address] [place] [address] [address] [place] [address] Physician Biometrics Technician Orthopedic Surgery 11/11/22 Gavin Sewell MD [address] [place] [address] [address] [place] [address] Surgeon Orthopedic Surgery 12/24/22
--- OUTSIDE RECORDS SUMMARY | 2024-11-05 14:23 | XMS_ITS | Encounter Summary ---
Author Organization [facility] Address [address] [place] [address] Care Team Providers Care Square Dance Caller Name Role Phone Yg Lee MD Primary Care Provider [phone] Shandra Ruffin APRN-MANUFACTURING TEST ENGINEER Primary Care Provider Yg Lee MD Primary Care Provider [phone] Shandra Ruffin APRN-[facility] Primary Care Provider Yg Lee MD Primary Care Provider [phone] Shandra Ruffin APRN-[facility] Primary Care Provider Encounter Details Date Type Department Care Team (Late st Contact Info) Description 05/18/2019 Telephone [facility] [address] [place] [address] Mitchell Zamarripa MD [address] [place] [address] [place] [address] Social History Tobacco Use Types [...] a call. [place] Patient Call Back number: [phone]. documented in this encounter Plan of Treatment Not on file documented as of this encounter Visit Diagnoses Not on filedocumented in this encounter Care Teams Square Dance Caller Relationship Specialty Start Date End Date Yg Lee MD [address] [place] [phone] PCP - General 10/28/11 05/23/19 Shandra Ruffin APRN-MANUFACTURING TEST ENGINEER [address] [place], [place] [phone] PCP - General 05/24/19 07/20/20 Yg Lee MD [address] [place], [place] [phone] PCP - General Internal Medicine 07/21/20 07/21/20 Shandra Ruffin APRN-MANUFACTURING TEST ENGINEER [address] [place], [place] [phone] PCP - General 07/22/20 11/15/21 Yg Lee MD [address] [place] [phone] PCP - General Internal Medicine 11/16/21 04/01/22 Shandra Ruffin APRN-MANUFACTURING TEST ENGINEER [address] [place], [place] [phone] PCP - General 04/02/22 documented as of this encounter
--- OUTSIDE RECORDS SUMMARY | 2024-11-05 14:23 | XMS_ITS | Data Portability ---
Author Organization [facility] Address [address] [place] [address] Care Team Providers Care Cloud Systems Administrator Name Role Phone JAM LEDEZMA Primary Care Provider [phone] Assessment No assessment recorded. Plan of Treatment Reminders Order Date Submit Date Provider Last Modified By Organization Details Last Modified Time Details Appointments None recorde d. Lab PTH (parath yroid hormone ), intact + calcium , serum or plasma 2019 020 bbertoglioma [facility], [address] [place] [address], [address], [place], [address], 0 18:10:55 unliste d lab - complia nce drug analysi s, ur 2019 020 REUBEN [facility], [address] [place] [address], [address], [place], [address], 0 15:09:11 PTH (parath yroid hormone ), intact + calcium , serum or plasma 2019 020 hspraggs [facility], [address] [facility], [address], [place], [address], 0 15:26:23 Referral orthope dic referra l 2019 020 [facility] Dept Of Orthopedics, [address], [place], [address], 0 14:14:57 oncolog ist referra l - ANABEL 2019 020 ssaterri Rivero MD, [address] [facility] , [address], [place], [address], 0 11:06:22 dermato logist referra l 2019 [email or web address] Not available 0 14:26:11 Procedures None recorde d. Surgeries None recorde d. Imaging NM, bone scan 2019 020 bbertoglioma [facility] (Radiology), [address] [facility] , [place], [address], 0 15:52:19 CT, lower leg, w/ contras t 2019 020 [facility] (Scheduling), [address] [facility], [place], [address], 0 15:02:33 XR, lumbar spine 2019 020 REUBEN [facility], [address] [facility], [place], [address], 0 14:17:01 Medication Orders calcito marlo (salmon ) 200 unit/ac tuation nasal spray 2019 020 INTER[id number], [address], [place], [place], [id number], 0 15:02:19 acetami nophen 300 mg-code ine 30 mg tablet 2019 020 dturnerma [facility][id number], [address], [place], [place], [id number], 1 17:09:49 gabapen tin 100 mg capsule 2019 020 INTERFACE [facility][id number], [address], [place], [place], [id number], 0 12:02:47 Patient TargetsNo targets recorded. Patient Instructions Encounter Date Encounter Id Patient Instructions Last Modified By Organization Details Last Modified Time 01/30/2020 [id number] osteoporosis: care instructions jnanney Not available 01/30/2020 15:02:14 Reason for Referral Law Enforcement Instructor Referral for C omplaining of a rash Referring Physician: Jam Ledezma [facility], Encounter Date: 02/20/2020 ANABEL Referring Physician: Jam Ledezma [facility], Encounter Date: 02/20/2020 Orthopedic Referral for Path ological fracture of right tibia Referring Physician: Jam Ledezma [facility], Encounter Date: 04/22/2020 Results Created Date Observation Date Name Description Value Unit Range Abnormal Flag Note LastModifiedBy Organization Detail LastModifiedTime 12/27/19 20 12/28/2019 CMP, serum or plasm a glucose 91 mg/dL 65-99 Not Available [facility] ([facility]) [address] [place], [address], 12/28/2019 07:08:47 12/27/1912/28/2019 CMP, serum or plasm a BUN 15 mg/dL 6-24 Not Available [facility] ([facility]) [address] [place], [address], 12/28/2019 07:08:47 12/27/1912/28/2019 CMP, serum or plasm a creatinine 0.80 mg/dL 0.57-1 .00 Not Available [facility] ([facility]) [address] [place], [address], 12/28/2019 07:08:47 12/27/1912/28/2019 CMP, serum or plasm a eGFR if nonafricn AM 82 mL/mi n/1.7 3 >59 Not Available [facility] ([facility]) [address] [place], [address], 12/28/2019 07:08:47 12/27/1912/2712/28/2019 CMP, serum or plasm a eGFR if africn AM 95 mL/mi n/1.7 3 >59 Not Available [facility] ([facility]) [address] [facility] [place], [address], 12/28/2019 07:08:47 12/27/19 20 12/28/2019 CMP, serum or plasm a BUN/creatini ne ratio 19 9-23 Not Available [facility] ([facility]) [address] [facility] [place], [address], 12/28/2019 07:08:47 12/27/1912/28/2019 CMP, serum or plasm a sodium 138 mmol/ L 134-14 4 Not Available [facility] ([facility]) [address] [place], [address], 12/28/2019 07:08:47 12/27/19 20 12/28/2019 CMP, serum or plasm a potassium 4.2 mmol/ L 3.5-5. 2 Not Available [facility] ([facility]) [address] [place], [address], 12/28/2019 07:08:47 12/27/19 20 12/28/2019 CMP, serum or plasm a chloride 98 mmol/ L 96-106 Not Available [facility] ([facility]) [address] [place], [address], 12/28/2019 07:08:47 12/27/1912/28/2019 CMP, serum or plasm a carbon dioxide, total 23 mmol/ L 20-29 Not Available [facility] ([facility]) [address] [place], [address], 12/28/2019 07:08:47 12/27/1912/28/2019 CMP, serum or plasm a calcium 10.1 mg/dL 8.7-10 .2 Not Available [facility] ([facility]) [address] [place], [address], 12/28/2019 07:08:47 12/27/19 20 12/28/2019 CMP, serum or plasm a protein, total 7.3 g/dL 6.0-8. 5 Not Available [facility] ([facility]) [address] [place], [address], 12/28/2019 07:08:47 12/27/1912/28/2019 CMP, serum or plasm a albumin 4.8 g/dL 3.8-4. 9 Not Available [facility] ([facility]) [address] [place], [address], 12/28/2019 07:08:47 12/27/1912/28/2019 CMP, serum or plasm a globulin, total 2.5 g/dL 1.5-4. 5 Not Available [facility] ([facility]) [address] [place], [address], 12/28/2019 07:08:47 12/27/1912/28/2019 CMP, serum or plasm a A/G ratio 1.9 1.2-2. 2 Not Available [facility] ([facility]) [address] [place], [address], 12/28/2019 07:08:47 12/27/1912/28/2019 CMP, serum or plasm a bilirubin, total 0.4 mg/dL 0.0-1. 2 Not Available [facility] ([facility]) [address] [place], [address], 12/28/2019 07:08:47 12/27/1912/28/2019 CMP, serum or plasm a alkaline phosphatase 114 IU/L 39-117 Not Available [facility]) [address] [place], [address], 12/28/2019 07:08:47 12/27/1912/28/2019 CMP, serum or plasm a AST (SGOT) 40 IU/L 0-40 Not Available [facility] ([facility]) [address], [place], [address], 12/28/2019 07:08:47 12/27/1912/28/2019 CMP, serum or plasm a ALT (SGPT) 29 IU/L 0-32 Not Available [facility] ([facility]) [address] [facility], [place], [address], 12/28/2019 07:08:47 12/27/19 20 12/28/2019 vitam in D, 25-hy droxy , total , serum vitamin D, 25-hydroxy 34.2 NG/mL 30.0-1 00.0 Vitam in D defic iency has been defin ed by the Insti t[facility] of [facility] ine and an Endoc rine Socie ty pract ice guide line as a level of serum 25-OH vitam in D less than 20 ng/mL (1,2) . The Endoc rine Socie ty went on to furth er defin e vitam in D insuf ficie ncy as a level betwe en 21 and 29 ng/mL (2). 1. IOM (Inst it[facility] ine). 2010. Melany ry refer ence kristina es for calci um and D. Zackary baum [place]: [facility] . 2. Patricia valdez MF, Jluis albert [place], Farncisco off-F errar i GARCIA, et al. Evalu ation , treat ment, and preve ntion of vitam in D defic iency : an Endoc rine Socie ty clini tessie pract ice guide line. JCEM. 2010; 96(7) :1911 -30. Not Available [facility] ([facility]) [address] [facility], [place], [address], 12/28/2019 07:08:48 02/11/2002/19/2020 drug scree n, urine [...] [place] [address] EXPEC JALYN ng/mg creat Morph ine 1924 EXPEC JALYN ng/mg creat Normo rphin e 572 EXPEC JALYN ng/mg creat [place] deine 1659 EXPEC JALYN ng/mg creat Sourc [...] expec jalyn metab olite of morph ine. [place] deine is an expec jalyn metab olite [...] Clobe tasol Ezeti mibe Fluti kelsie e [place] chlor othia zide (Samantha nopri l-HCT Z) [place] xychl oroqu ine Levot hyrox ine Lisin opril (Samantha nopri l-HCT Z) Lorat adine Nitro furan toin Omepr azole Ondan setro n Prava stati n Predn isone Rosuv astat in ===== ===== ===== ===== ===== ===== ===== ===== ===== ===== ===== ===== ===== === For clini tessie consu ltati on, pleas e call [phone]. ===== ===== ===== ===== ===== ===== ===== ===== ===== ===== ===== ===== ===== === Not Available [facility] [address] [facility], [place], [address], 02/19/2020 15:09:11 02/11/20 20 02/19/2020 drug scree n, urine pdf . Not Available [facility] [address] [facility] [place], [address], 02/19/2020 15:09:11 04/28/20 20 04/28/2020 PTH (para [...] - 65 < 8.6 Not Available [facility] ([facility]) [address] [place], [address], 04/29/2020 17:08:21 04/28/20 20 04/29/2020 PTH (para thyro id hormo ne), intac t + calci um, serum or plasm a calcium TNP mg/dL No serum gel recei dillon. Not Available [facility] ([facility]) [address] [place], [address], 04/29/2020 17:08:21 04/28/20 20 04/29/2020 PTH (para thyro id hormo ne), intac t + calci um, serum or plasm a PTH, intact 63 pg/mL 15-65 Not Available [facility] ([facility]) [address] [place], [address], 04/29/2020 17:08:21 04/28/20 20 04/29/2020 speci men statu s repor t specimen status report TNP No serum gel recei dillon. TEST: 40237 6 Calci um Panel : 61121 1 Not Available [facility] ([facility]) [address] [place], [address], 04/29/2020 17:08:22 04/30/2005/01/2020 TSH + free T4, serum TSH 4.230 uIU/m L 0.450- 4.500 Not Available [facility] ([facility]) [address] [place], [address], 05/01/2020 08:17:01 04/30/2005/01/2020 TSH + free T4, serum T4,free(dire ct) 1.18 NG/dL 0.82-1 .77 Not Available [facility] ([facility]) [address] [place], [address], 05/01/2020 08:17:01 04/30/2005/01/2020 CBC w/ auto diff WBC 5.2 x10e3 /uL 3.4-10 .8 Not Available [facility] ([facility]) [address] [facility], [place], [address], 05/01/2020 08:17:02 04/30/2005/01/2020 CBC w/ auto diff RBC 4.16 x10e6 /uL 3.77-5 .28 Not Available [facility] ([facility]) [address] [facility], [place], [address], 05/01/2020 08:17:02 04/30/2005/01/2020 CBC w/ auto diff hemoglobin 13.9 g/dL 11.1-1 5.9 Not Available [facility] ([facility]) [address] [facility], [place], [address], 05/01/2020 08:17:02 04/30/2005/01/2020 CBC w/ auto diff hematocrit 39.7 % 34.0-4 6.6 Not Available [facility] ([facility]) [address] [facility], [place], [address], 05/01/2020 08:17:02 04/30/2005/01/2020 CBC w/ auto diff MCV 95 fL 79-97 Not Available [facility] ([facility]) [address] [place], [address], 05/01/2020 08:17:02 04/30/2005/01/2020 CBC w/ auto diff MCH 33.4 pg 26.6-3 3.0 above high normal Not Available [facility] ([facility]) [address] [place], [address], 05/01/2020 08:17:02 04/30/2005/01/2020 CBC w/ auto diff MCHC 35.0 g/dL 31.5-3 5.7 Not Available [facility] ([facility]) [address] [facility], [place], [address], 05/01/2020 08:17:02 04/30/2005/01/2020 CBC w/ auto diff RDW 13.4 % 11.7-1 5.4 Not Available [facility] ([facility]) [address] [facility], [place], [address], 05/01/2020 08:17:02 04/30/2005/01/2020 CBC w/ auto diff platelets 296 x10e3 /uL 150-45 0 Not Available [facility] ([facility]) [address] [facility], [place], [address], 05/01/2020 08:17:02 04/30/2005/01/2020 CBC w/ auto diff neutrophils 72 % not estab. Not Available [facility] ([facility]) [address] [facility], [place], [address], 05/01/2020 08:17:02 04/30/2005/01/2020 CBC w/ auto diff lymphs 14 % not estab. Not Available [facility] ([facility]) [address] [facility], [place], [address], 05/01/2020 08:17:02 04/30/2005/01/2020 CBC w/ auto diff monocytes 7 % not estab. Not Available [facility] ([facility]) [address] [facility], [place], [address], 05/01/2020 08:17:02 04/30/2005/01/2020 CBC w/ auto diff eos 4 % not estab. Not Available [facility] ([facility]) [address] [facility], [place], [address], 05/01/2020 08:17:02 04/30/2005/01/2020 CBC w/ auto diff basos 2 % not estab. Not Available [facility] ([facility]) [address] [facility], [place], [address], 05/01/2020 08:17:02 04/30/2005/01/2020 CBC w/ auto diff immature cells POTATO SORTER Not Available [facility] ([facility]) [address] [place], [address], 05/01/2020 08:17:02 04/30/2005/01/2020 CBC w/ auto diff neutrophils (absolute) 3.8 x10e3 /uL 1.4-7. 0 Not Available [facility] ([facility]) [address] [place], [address], 05/01/2020 08:17:02 04/30/2005/01/2020 CBC w/ auto diff lymphs (absolute) 0.7 x10e3 /uL 0.7-3. 1 Not Available [facility] ([facility]) [address] [place], [address], 05/01/2020 08:17:02 04/30/2005/01/2020 CBC w/ auto diff monocytes(ab solute) 0.4 x10e3 /uL 0.1-0. 9 Not Available [facility] ([facility]) [address] [place], [address], 05/01/2020 08:17:02 04/30/2005/01/2020 CBC w/ auto diff eos (absolute) 0.2 x10e3 /uL 0.0-0. 4 Not Available [facility] ([facility]) [address] [place], [address], 05/01/2020 08:17:02 04/30/2005/01/2020 CBC w/ auto diff baso (absolute) 0.1 x10e3 /uL 0.0-0. 2 Not Available [facility] ([facility]) [address] [place], [address], 05/01/2020 08:17:02 04/30/2005/01/2020 CBC w/ auto diff immature granulocytes 1 % not estab. Not Available [facility] ([facility]) [address] [facility] [place], [address], 05/01/2020 08:17:02 04/30/2005/01/2020 CBC w/ auto diff immature grans (abs) 0.0 x10e3 /uL 0.0-0. 1 Not Available [facility] ([facility]) [address] [facility], [place], [address], 05/01/2020 08:17:02 04/30/2005/01/2020 CBC w/ auto diff NRBC POTATO SORTER Not Available [facility] ([facility]) [address] [facility] [place], [address], 05/01/2020 08:17:02 04/30/2005/01/2020 CBC w/ auto diff hematology comments: POTATO SORTER Not Available [facility] ([facility]) [address] [facility], [place], [address], 05/01/2020 08:17:02 04/30/2005/01/2020 CMP, serum or plasm a glucose 109 mg/dL 65-99 above high normal Not Available [facility] ([facility]) [address] [place], [address], 05/01/2020 08:17:03 04/30/2005/01/2020 CMP, serum or plasm a BUN 12 mg/dL 6-24 Not Available [facility] ([facility]) [address] [place], [address], 05/01/2020 08:17:03 04/30/2005/01/2020 CMP, serum or plasm a creatinine 0.65 mg/dL 0.57-1 .00 Not Available [facility] ([facility]) [address] [place], [address], 05/01/2020 08:17:03 04/30/2005/01/2020 CMP, serum or plasm a eGFR if nonafricn AM 99 mL/mi n/1.7 3 >59 Not Available [facility] ([facility]) [address] [facility] [place], [address], 05/01/2020 08:17:03 04/30/20 20 05/01/2020 CMP, serum or plasm a eGFR if africn AM 114 mL/mi n/1.7 3 >59 Not Available [facility] ([facility]) [address] [facility] [place], [address], 05/01/2020 08:17:03 04/30/20 20 05/01/2020 CMP, serum or plasm a BUN/creatini ne ratio 18 9-23 Not Available [facility] ([facility]) [address] [facility] [place], [address], 05/01/2020 08:17:03 04/30/2005/01/2020 CMP, serum or plasm a sodium 139 mmol/ L 134-14 4 Not Available [facility] ([facility]) [address] [facility] [place], [address], 05/01/2020 08:17:03 04/30/2005/01/2020 CMP, serum or plasm a potassium 4.4 mmol/ L 3.5-5. 2 Not Available [facility] ([facility]) [address] [facility] [place], [address], 05/01/2020 08:17:03 04/30/2005/01/2020 CMP, serum or plasm a chloride 96 mmol/ L 96-106 Not Available [facility] ([facility]) [address] [facility] [place], [address], 05/01/2020 08:17:03 04/30/2005/01/2020 CMP, serum or plasm a carbon dioxide, total 27 mmol/ L 20-29 Not Available [facility] ([facility]) [address] [facility] [place], [address], 05/01/2020 08:17:03 04/30/2005/01/2020 CMP, serum or plasm a calcium 10.0 mg/dL 8.7-10 .2 Not Available [facility] ([facility]) [address] [place], [address], 05/01/2020 08:17:03 04/30/2005/01/2020 CMP, serum or plasm a protein, total 7.0 g/dL 6.0-8. 5 Not Available [facility] ([facility]) [address] [place], [address], 05/01/2020 08:17:03 04/30/2005/01/2020 CMP, serum or plasm a albumin 4.6 g/dL 3.8-4. 9 Not Available [facility] ([facility]) [address] [place], [address], 05/01/2020 08:17:03 04/30/2005/01/2020 CMP, serum or plasm a globulin, total 2.4 g/dL 1.5-4. 5 Not Available [facility] ([facility]) [address] [place], [address], 05/01/2020 08:17:03 04/30/2005/01/2020 CMP, serum or plasm a A/G ratio 1.9 1.2-2. 2 Not Available [facility] ([facility]) [address] [place], [address], 05/01/2020 08:17:03 04/30/2005/01/2020 CMP, serum or plasm a bilirubin, total 0.5 mg/dL 0.0-1. 2 Not Available [facility] ([facility]) [address] [place], [address], 05/01/2020 08:17:03 04/30/2005/01/2020 CMP, serum or plasm a alkaline phosphatase 231 IU/L 39-117 above high normal Not Available [facility] ([facility]) [address] [facility], [place], [address], 05/01/2020 08:17:03 04/30/20 20 05/01/2020 CMP, serum or plasm a AST (SGOT) 83 IU/L 0-40 above high normal Not Available [facility] ([facility]) [address] [facility], [place], [address], 05/01/2020 08:17:03 04/30/20 20 05/01/2020 CMP, serum or plasm a ALT (SGPT) 63 IU/L 0-32 above high normal Not Available [facility] ([facility]) [address] [facility], [place], [address], 05/01/2020 08:17:03 04/30/20 20 04/30/2020 urina lysis , dipst ick Leukocytes Negati ve Not Available In-Office Order Internal Use Only DO Not Attach Compendium DO Not Attach Compendium, Do Not Delete/merge, [id number] 04/30/2020 11:03:06 04/30/2004/30/2020 urina lysis , dipst ick Nitrite negati ve Not Available In-Office Order Internal Use Only DO Not Attach Compendium DO Not Attach Compendium, Do Not Delete/merge, [id number] 04/30/2020 11:03:06 04/30/2004/30/2020 urina lysis , dipst ick Urobilinogen .2 Not Available In-Of fice Order Internal Use Only DO Not Attach Compendium DO Not Attach Compendium, Do Not Delete/merge, [id number] 04/30/2020 11:03:06 04/30/2004/30/2020 urina lysis , dipst ick Protein Negati ve Not Available In-Office Order Internal Use Only DO Not Attach Compendium DO Not Attach Compendium, Do Not Delete/merge, [id number] 04/30/2020 11:03:06 04/30/20 20 04/30/2020 urina lysis , dipst ick pH 6.5 Not Available In-Office Order Internal Use Only DO Not Attach Compendium DO Not Attach Compendium, Do Not Delete/merge, [id number] 04/30/2020 11:03:06 04/30/20 20 04/30/2020 urina lysis , dipst ick Blood Negati ve Not Available In-Office Order Internal Use Only DO Not Attach Compendium DO Not Attach Compendium, Do Not Delete/merge, [id number] 04/30/2020 11:03:06 04/30/20 20 04/30/2020 urina lysis , dipst ick Specific [place] 1.020 Not Available In-Off ice Order Internal [...] r spine No observ ation record ed. [address], [place], [address], 02/07/2020 17:22:18 02/19/20 20 02/19/2020 NM, bone scan No observ ation record ed. ssander [facility] [address] [facility] [place], [address], 02/19/2020 17:52:46 03/25/20 20 03/25/2020 bone densi ty No observ ation record ed. [facility] [address] [facility] [place], [address], 03/28/2020 12:17:03 09/12/19 21 09/10/2020 cardi ac stres s test No observ ation record ed. [facility] [address], [place], [address], 09/12/2020 16:33:08 12/18/19 21 12/09/2020 pulmo nary funct ion test* No observ ation record ed. [facility] [address], [place], [address], 12/17/2020 15:14:10 01/03/20 21 01/02/2021 US, duple x, renal arter y No observ ation record ed. [facility] [address], [place], [address], 01/02/2021 14:47:22 01/03/20 21 01/02/2021 stres s echoc ardio gram No observ ation record ed. [facility] [address], [place], [address], 01/02/2021 14:47:41 11/28/19 24 11/25/2023 US, echoc ardio gram, trans esoph ageal No observ ation record ed. [facility] [address] [facility] [address], [place], [address], 12/08/2023 11:32:40 01/16/20 24 11/23/2023 CT, angio gram, chest , w/ contr ast No observ ation record ed. mmetias [address] [place], [address], 01/16/2024 15:25:06 Result Notes None recorded. Problems Name Problem SNOMED Code Status Onset Date Resolution Date Notes Provider Name and Address Organization Details Recorded Time Drug therapy finding 553259981 Active 2015 CHIO Niño, [place] - [facility] 0 11:49:27 Enzyme level - finding 873719526 Active 2017 CHIO Niño[place] [facility] 0 11:49:27 Fibromyalgia 015442977 Active 2011 Kallie Sloan [place] null, [place] [facility] 0 11:49:27 Hypertensive disorder 97694425 Active 2012 Kallie S[place] [facility] 0 11:49:27 Osteopenia 833762920 Active 2011 Kallie S[place] [facility] 0 11:49:27 Rheumatoid arthritis 19646977 Active 2017 Kallie S[place] [facility] 0 11:49:27 Problem Notes None recorded. Procedures Surgical History Date Name Laterality Status Provider Name and Address Organization Details Recorded Time hysterectomy completed Anabela Blanc [place] - [facility] 09/06/2019 12:01:29 Imaging Results Imaging Date Name Status LastModified by Organization Details LastModified Time 01/28/2020 XR, lumbar spine completed milly [place] [address] [place], [address], 02/07/2020 17:22:18 02/19/2020 [facility] [address] [place], [address], 02/19/2020 17:52:46 03/25/2020 bone density completed [facility] [address] [place], [address], 03/28/2020 12:17:03 09/10/2020 cardiac stress test completed [facility] ([facility] [address] [facility], [place], [address], 09/12/2020 16:33:08 12/09/2020 pulmonary function test* completed [facility] ([facility]) [address] [facility], [place], [address], 12/17/2020 15:14:10 01/02/2021 US, duplex, renal artery completed [facility] ([facility] [address] [facility], [place], [address], 01/02/2021 14:47:22 01/02/2021 stress echocardiogram completed [facility] ([facility] [address] [facility], [place], [address], 01/02/2021 14:47:41 11/25/2023 US, echocardiogram, transesophageal completed [facility] [employer] [address] [facility] [place], [address], 12/08/2023 11:32:40 11/23/2023 CT, angiogram, chest, w/ contrast completed [facility] [address] [facility] [place], [address], 01/16/2024 15:25:06 Procedure Notes None recorded. Medical Equipment None Reported. Allergies Allergen ID Allergen Name Allergen Category Reaction Reaction Severity Criticality Documentation Date Start Date Code Code System Note Provider Name and Address Organization Details Recorded Time 434143 Substance with sulfonami de structure and antibacte rial mechanism of action (substanc e) medicatio n hives Not available Not available 09/06/2019 42309 8003 SNOMED Not Available Not Available Not Available 734620 Cipro medicatio n Not available Not available Not available 09/06/201944953 3 RxNorm Not Available Not Available Not Available 160960 ciproflox acin medicatio n myalgias (muscle pain) [...] DateTime 01/25/2020 157.48 cm Kallie Sloan MA [facility] 01/25/20 20 11:49:06 Date Recorded Body height Provider Name an d Address Organization Details Last Updated DateTime 01/30/2020 157.48 cm Anabela Blanc MA [facility] 01/30/2020 14:32:47 Date Recorded Body height Body mass index (BMI) Body weight Body temperature Oxygen saturation Oxygen saturation in Arterial blood by Pulse oximetry Heart rate Systolic blood pressure Diastolic blood pressure Provider Name and Address Organization Details Last Updated DateTime 0 157.48 cm 31.1 kg/m2 64989.7 g 98.1 [degF] 93 % 93 % 83 /min 108 mm[Hg] 82 mm[Hg] Anabela Blanc MA [facility] 0 10:40:52 Date Recorded Body height Body mass index (BMI) Body weight Body temperature Oxygen saturation Oxygen saturation in Arterial blood by Pulse oximetry Heart rate Systolic blood pressure Diastolic blood pressure Provider Name and Address Organization Details Last Updated DateTime 0 157.48 cm 31.3 kg/m2 88055 g 98 [degF] 98 % 98 % 80 /min 142 mm[Hg] 90 mm[Hg] Kallie Sloan MA [facility] 0 14:59:34 Social History Question Answer Notes LastModified by Organizat ion Details LastModified Time Tobacco Smoking Status Former Smoker 2012 Anabela Blanc MA null, [facility] 09/06/2019 12:01:14 In The 14 Days Before Symptom Onset, Have You Had Close Contact With A Laboratory-confir med COVID-19 While That Case Was Ill? No Information not available 11/26/2019 If Patient Spent Time In [facility] - Does The Patient Live In [facility]? No Information not available 11/26/2019 In The 14 Days Before Symptom Onset, Have You Had Close Contact With A Person Who Is Under Investigation For COVID-19 While That Person Was Ill? No Information not available 11/26/2019 In The 14 Days Before Symptom Onset, Did The Patient Spend Time In [facility]? No Information not available 11/26/2019 Have You [...] Eating Disorder N Anemia N Heart Attack ([place]) N Anxiety Disorder Y Diabetes N Muscle, [...] SNOMED-CT Code Diagnosis ICD10 Code Diagnosis Note [id number] Anabela Blanc MA [facility] [address] [place] [address] 09/06/2019 11:41:44 09/07/2019 16:55:26 Chronic depression 031393757 F34.1 Long-term drug therapy 082332469 Z79.899 Essential hypertension 41811985 I10 [id number] Jam Ledezma PA-C [facility] [address] [place] [address] 09/13/2019 11:39:42 09/13/2019 12:10:30 Essential hypertension 40401360 I10 [id number] Jam Ledezma PA-C [facility] [address] [place] [address] 11/26/2019 10:49:30 11/26/2019 12:28:39 Essential hypertension 60294988 I10 Mitral valve prolapse 40 1278778 I34.1 History of transient ischemic attack 159656645 Z86.73 Seasonal a llergic rhinitis 220803246 J30.2 [id number] Jam Ledezma PA-C [facility] [address] [place] [address] 12/10/2019 10:48:06 12/12/2019 11:23:50 Essential hypertension 57997416 I10 Chronic depression 62418 0009 F34.1 Nausea and vomiting 1692 1999 R11.2 [id number] Jam Ledezma PA-C [facility] [address] [place] [address] 12/11/2019 13:09:52 12/12/2019 11:45:12 Mixed hyperlipidemia 866156906 E78.2 [id number] Jam Ledezma PA-C [facility] [address] [place] [address] 12/27/2019 11:02:54 12/28/2019 08:34:57 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 Seasonal a llergic rhinitis 846180582 J30.2 [id number] Jam Ledezma PA-C [facility] [address] [place] [address] 01/25/2020 10:10:00 01/28/2020 08:04:28 Lumbar radiculopathy 205843553 M54.16 [id number] KELLEN Liao [facility] [address] [place] [address] 01/30/2020 11:07:31 01/31/2020 07:58:24 Idiopathic hypercalcemia 489481189 E83.52 Stress fra cture of tibia 077906185 M84.361A Osteoporosis 92598187 M8 1.0 [id number] Anabela Blanc MA [facility] [address] [place] [address] 02/11/2020 10:34:29 02/11/2020 15:10:24 Pain in right lower limb 642408758 M79.604 Long-term drug therapy 469732929 Z79.016 [id number] Jam Ledezma PA-C [facility] [address] [place] [address] 02/20/2020 14:44:57 02/20/2020 15:38:07 Pathological fracture of right tibia 5203979791 4558780 M84.461G Complaining of a rash 16 9983608 R21 [id number] Jam Ledezma PA-C [facility] [address] [place] [address] 04/22/2020 09:33:20 04/23/2020 12:40:11 Osteopenia 138217961 M85.88 Pathologic al fracture of right tibia 9062262682 9313637 M84.461G Health Concerns Section Related Observation LastModified by Organization Detai ls LastModified Time None Recorded Concern Status LastModified by Organization Details LastModified Time None Recorded Advance Directives Directive None Recorded Payers Encounter Date Sequence Insurance Name Policy Number Policy Bright Covered Member ID Bright Member ID Guarantor Name 01/25/2020 1 [facility] PRIOR TO 02/26/2021 (MEDICAID REPLACEMENT - HMO) Antoinette Da Silva [id number] Antoinette Da Silva 01/30/2020 1 [facility] PRIOR TO 02/26/2021 (MEDICAID REPLACEMENT - HMO) Antoinette Da Silva [id number] Antoinette Da Silva 02/11/2020 1 [facility] PRIOR TO 02/26/2021 (MEDICAID REPLACEMENT - HMO) Antoinette Da Silva [id number] Antoinette Da Silva 02/20/2020 1 [facility] PRIOR TO 02/26/2021 (MEDICAID REPLACEMENT - HMO) Antoinette Da Silva [id number] Antoinette Da Silva 04/22/2020 1 [facility] PRIOR TO 02/26/2021 (MEDICAID REPLACEMENT - HMO) Antoinette Da Silva [id number] Antoinette Da Silva Notes Date Note Type [...] osteoporosis Jam Ledezma PA-C Attn: Accounting[address] [place], [address], [facility] 01/25/2020 12:05:40 01/30/2020 text/html questions re [...] osteoporosis... Jam Ledezma PA-C Attn: Accounting[address] [place], [address], [facility] 01/30/2020 15:08:21 02/11/2020 text/html started january 17..pain in medial lower rt leg..no known injury. went to ER xrays were done. findings of an old healed fracture that the patient denies ever having broken. pain has not improved may have worsened. Anabela Blanc MA [facility], [facility] 02/11/2020 11:25:00 02/20/2020 text/html bone scan reviewed..rib with uptake and rt tib fib with intense uptake they say likely posttraumatic but she denies injury. now skin on forearms are red and that is pruritic not painful Jam Ledezma PA-C Attn: Accounting[address] [place], [address], [facility] 02/20/2020 15:32:42 04/22/2020 text/html follow up on leg fractures that dont belong... Jam Ledezma PA-C Attn: Accounting[address] [facility], [place], [address], [facility] 04/22/2020 17:56:09 OBGyn Episode No OBEpisode recorded.
--- OUTSIDE RECORDS SUMMARY | 2024-11-05 14:23 | XMS_ITS | Referral Summary ---
Author Organization [facility] Address [address] [place] [address] Care Team Providers Care General Car Supervisor Yard Name Role Phone Mariah Adams MD Primary Care Provider + Mitchell Zamarripa MD Unavailable [phone] Brit More CHECK INSPECTOR Unavailable [phone] Cliff Ronquillo NP Unavailable [phone] Dick Aguilar Unavailable [phone] Gavin Sewell MD Unavailable [phone] Encounters Date Type Department Care Team Description 09/10/2024 9:15 AM WAGE AND SALARY SPECIALIST - 09/10/2024 10:45 AM WAGE AND SALARY SPECIALIST Surgery [facility] Operating Room [address] [place] [address] Vignesh Hawkins MD LAPAROSCOPIC CHOLECYSTECTOMY 09/10/2024 9:16 AM WAGE AND SALARY SPECIALIST Anesthesia Event [facility] [address] [place] [address] Tonia Gutierrez MD Reynolds, Ethan Emerson, MD 09/10/2024 8:13 AM WAGE AND SALARY SPECIALIST - 09/10/2024 2:39 PM WAGE AND SALARY SPECIALIST Hospital Encounter [facility] [address] [place] [address] Vignesh Hawkins MD Calculus of gallbladder with cholecystitis without biliary obstruction, unspecified cholecystitis acuity Discharge Disposition: Discharge to home or self care 08/14/2024 9:30 AM WAGE AND SALARY SPECIALIST Office Visit [facility] [address] [facility] [facility] [address] [place] [address] Vignesh Hawkins MD Calculus of gallbladder with cholecystitis without biliary obstruction, unspecified cholecystitis acuity from Last 3 Months Allergies Active Allergy [...] 1 tablet (100 mcg total) by mouth exhibits curator before breakfast 1 Active celecoxib (CeleBREX) 100 [...] 08/14/2024 Assessment & Plan (08/14/2024 9:48 AM WAGE AND SALARY SPECIALIST): The patient likely has chronic cholecystitis given [...] (04/23/2022): Added automatically from request for surgery [id number] Posterior tibial tendon dysfunction 03/02/2022 Flat foot [...] 01/04/2018 Assessment & Plan (09/19/2018 1:30 PM WAGE AND SALARY SPECIALIST): Low disease activity today on exam. Take [...] often do you attend chur ch or jehovah's witness services? Never 12/23/2022 Do you belong to any clubs o r organizations such as religious groups, unions, fraternal or athletic groups, or [...] place to sleep or slept in a penitentiary (including now)? No 12/23/2022 Personal Safety Answer Date Recorded Have you ever been in or are you currently in a harmful physical or emotional relationship or is someone making you feel afraid or unsafe? Denies 09/10/2024 Comments No Sex and Gender Information Value Date Recorded Sex Assigned at Not on file Legal Sex Female 11:50 PM WAGE AND SALARY SPECIALIST Gender Identity Not on file Sexual Orientation Not on file Last Filed Vital Signs Vital Sign Reading Time Taken Comments Blood Pressure 119/69 09/10/2024 2:00 PM WAGE AND SALARY SPECIALIST Pulse 69 09/10/2024 2:00 PM WAGE AND SALARY SPECIALIST Temperature 36.4 C (97.6 F) 09/10/2024 2:00 PM WAGE AND SALARY SPECIALIST Respiratory Rate 16 09/10/2024 2:00 PM WAGE AND SALARY SPECIALIST Oxygen Saturation 94% 09/10/2024 2:00 PM WAGE AND SALARY SPECIALIST Inhaled Oxygen Concentration - - Weight 67.6 kg (149 lb 0.5 oz) 09/10/2024 8:15 A M WAGE AND SALARY SPECIALIST Height 154.9 cm (5' 1 ) 09/10/2024 8:15 AM WAGE AND SALARY SPECIALIST Body Mass Index 28.16 09/10/2024 8:15 AM WAGE AND SALARY SPECIALIST Plan of Treatment Not on file Medical Devices Implanted Type Area Clinical Exercise Specialist Device Identifier Shelf Expiration Date Model / Serial / Lot Exactech Restrictor Cement Cemex Small Od13mm Tpa-13 - [id number] Implanted:Qty: 1 on 05/04/2022 by Gavin Sewell MD at [facility] Left: Shoulder Exactech 08/28/2023 TPA-13 / / [id number] Exactech Equinoxe Reverse Shoulder +0mm Tray Humeral Adapter 320-10-00 - [id number] - [id number] Implanted:Qty: 1 on 05/04/2022 by Gavin Sewell MD at [facility] Ex[employer]ech [id number] 04/07/2032 320-10-00 / [id number] / Exactech Equinoxe 40mm Small Reverse Constrain Shoulder +2.5mm Liner 320-40-13 - [id number] - [id number] Implanted:Qty: 1 on 05/04/2022 by Gavin Sewell MD at [facility] [employer]ech 01/31/2024 320-40-13 / [id number] / Exactech Equinoxe Lock Reverse Shoulder Glenosphere Screw Bone 320-15-05 - [id number] - [id number] Implanted:Qty: 1 on 05/04/2022 by Gavin Sewell MD at [facility] Left: Shoulder Ex[employer]ech 03/09/2027-15- / [id number] / Exactech Reverse Torque Define Shoulder Kit Screw 320--00 - [id number] - [id number] Implanted:Qty: 1 on 05/04/2022 by Gavin Sewell MD at [facility] Left: Shoulder [employer]ech 02/03/2027 320-20-00 / [id number] / Exactech Equinoxe Small Reverse Superior Posterior Augment Shoulder Left 320-35-07 - [id number] - [id number] Implanted:Qty: 1 on 05/04/2022 by Gavin Sewell MD at [facility] Left: Shoulder [employer]ech [id number] 04/08/2031 320-35-07 / [id number] / Exactech Equinoxe 10mm Stem Humeral Sterile 300-01- - [id number] - [id number] Implanted:Qty: 1 on 05/04/2022 by Gavin Sewell MD at [facility] Left: Shoulder Ex[employer]ech [id number] 09/07/2031 300-10 / [id number] / [employer] Cement Bone Simplex Gentamicin High Viscosity 40gm 6195-1-001 - [id number] Implanted:Qty: 1 on 05/04/2022 by Gavin Sewell MD at [facility] Left: Shoulder [employer] 09/28/2023 6195-1-001 / / [id number] Exactech Equinoxe 40mm 24.3mm Small Reverse Shoulder Sphere Glenoid 320-31-40 - [id number] - [id number] Implanted:Qty: 1 on 05/04/2022 by Gavin Sewell MD at [facility] Left: Shoulder [employer]ech [id number] 12/11/2030 320-31-40 / [id number] / Exactech Equinoxe 4.5mm 38mm Kit Compression Lock Cap Reverse Shoulder 320-20-38 - [id number] - [id number] Implanted:Qty: 1 on 05/04/2022 by Gavin Sewell MD at [facility] Left: Shoulder [employer]ech [id number] 01/12/2027 320-20-38 / [id number] / Exactech Equinoxe 4.5mm 34mm Kit Compression Lock Cap Reverse Shoulder 320-20-34 - [id number] - [id number] Implanted:Qty: 1 on 05/04/2022 by Gavin Sewell MD at [facility] Left: Shoulder [employer]actech [id number] 07/14/2026 320-20-34 / [id number] / [employer] Insert Tibial Knee Fixed Lm Posterior Stabilized Attune 7mm Size 5 Polyethylene [id number] - [id number] Implanted:Qty: 1 on 11/10/2022 by Gavin Sewell MD at [facility] Left: Knee [employer] 07/28/2030 [id number] / / [id number] [employer] Attune Cruciate Retain Cementless Knee Left 5 Component Femoral [id number] - [id number] Implanted:Qty: 1 on 11/10/2022 by Gavin Sewell MD at [facility] Left: Knee [employer] 04/28/2032 [id number] / / [id number] [employer] Attune Fb Tib Base Sz 5 Por [id number] - [id number] Implanted:Qty: 1 on 11/10/2022 by Gavin Sewell MD at [facility] Left: Knee [employer] Inc 03/28/2032 [id number] / / [id number] Procedures Procedure Name Priority Date/Time Associated Diagnosis Comments SURGICAL PATHOLOGY Routine 09/10/2024 10 :29 AM WAGE AND SALARY SPECIALIST Calculus of gallbladder with cholecystitis without biliary obstruction, unspecified cholecystitis acuity WI AN ELECTIVE ENDOTRACHEAL AIRWAY Routine 09/10/2024 9:36 AM WAGE AND SALARY SPECIALIST LAPAROSCOPIC CHOLECYSTECTOMY 09/10/2024 9:02 AM WAGE AND SALARY SPECIALIST Calculus of gallbladder with cholecystitis without biliary obstruction, unspecified cholecystitis acuity EGFR STAT 09/10/2024 8:47 AM WAGE AND SALARY SPECIALIST DIFFERENTIAL AUTO STAT 09/10/2024 8:4 7 AM WAGE AND SALARY SPECIALIST ANTIBODY SCREEN STAT 09/10/2024 8:47 AM WAGE AND SALARY SPECIALIST ABO/RH STAT 09/10/2024 8:47 AM WAGE AND SALARY SPECIALIST TYPE AND SCREEN STAT 09/10/2024 8:47 AM WAGE AND SALARY SPECIALIST CBC WITH AUTO DIFFERENTIAL STAT 09/10/2024 8:47 AM WAGE AND SALARY SPECIALIST COMPREHENSIVE METABOLIC PANEL STAT 09/10/2024 8:47 AM WAGE AND SALARY SPECIALIST B ABO / RH CONFIRMATION TESTING STAT 09/10/2024 8:45 AM WAGE AND SALARY SPECIALIST SERUM HEPATITIS C AB Routine 11/01/2014 8:32 AM WAGE AND SALARY SPECIALIST DIGITAL MAMMOGRAPHY Routine 12/11/2013 1 1:01 AM CDT from Last 3 Months or Most Recently Relevant to Health Maintenance Results * Surgical pathology (09/10/2024 10:29 AM WAGE AND SALARY SPECIALIST) Tissue (Gallbladder) 09/10/2024 9:51 AM WAGE AND SALARY SPECIALIST Narrative PATHOLOGY [facility] ([place]) - 09/11/2024 3:50 PM WAGE AND SALARY SPECIALIST EPIC results best viewed via link to PDF [facility] Department of Pathology [address] [place] [id number] Note to Patients: This report may contain [...] Final Report Patient Name: ANTOINETTE DELANEY Address: [address] [place], [place] [address] Gender: F : 1960 (Age: 64) Service: Surgery Location: [facility] Hospital #: [id number] Patient Type: [facility] Taken: 09/10/2024 Received: 09/10/2024 Accessioned: [...] by the Surgical Pathology Department at [facility] as part of an ongoing senior quality control technician program and in compliance [...] characteristics determined by the Surgical Pathology Department [facility]. It has not been cleared or approved by the U. S. Food and Drug Administration. Note for decalcified specimens: This assay has not been validated on decalcified tissues. Results should be interpreted with caution given the possibility of false negativity on decalcified specimens Vignesh Hawkins MD LAB PATHOLOGY OR DERABLES Final Result Performing Organization Address City/State/[facility] Co de Phone Number PATHOLOGY [facility] ([address] [address] * WI AN ELECTIVE ENDOTRACHEAL AIRWAY (09/10/2024 9:36 AM WAGE AND SALARY SPECIALIST) Cliff [place] CRNA - 09/10/2024 9:36 AM WAGE AND SALARY SPECIALIST Cliff Davis CRNA 09/10/2024 9:37 AM Airway [...] nal Result * eGFR (09/10/2024 8:47 AM WAGE AND SALARY SPECIALIST) eGFR >90 >=60 mL/min/1. 73 m2 Comment: [...] last reviewed 2021. Blood 09/10/2024 8:47 AM WAGE AND SALARY SPECIALIST 09/10/2024 8:50 AM WAGE AND SALARY SPECIALIST us Vignesh Hawkins MD LAB BLOOD ORDERA BLES Final Result [facility]) [address] [facility] [place] [address] * Differential, auto (09/10/2024 8:47 AM WAGE AND SALARY SPECIALIST) Neutrophil abs 5.3 1.5 - 6.5 K/cumm Imm gran abs 0.0 0.0 - 0.1 K/cumm [facility] ([place]) Lymphocyte abs 0.8 0.8 - 3.3 K/cumm [facility] ([place]) Monocyte abs 0.6 0.2 - 0.8 K/cumm [facility] ([place]) Eosinophil abs 0.3 0.0 - 0.5 K/cumm [...] revised on 2017. Blood 09/10/2024 8:47 AM WAGE AND SALARY SPECIALIST 09/10/2024 8:50 AM WAGE AND SALARY SPECIALIST us Vignesh Hawkins MD LAB BLOOD ORDERA BLES Final Result [facility] ([place]) [address] [facility] [facility] [place] [address] * (ABNORMAL) CBC with auto differential (09/10/2024 8:47 AM WAGE AND SALARY SPECIALIST) WBC 7.1 3.8 - 9.9 K/cumm Hgb [...] [facility] ([place]) Blood 09/10/2024 8:47 AM WAGE AND SALARY SPECIALIST 09/10/2024 8:50 AM WAGE AND SALARY SPECIALIST Vignesh Hawkins MD LAB BLOOD ORDERA BLES Final Result [facility] ([place]) [address] [facility] [place] [address] * ABO/Rh (09/10/2024 8:47 AM WAGE AND SALARY SPECIALIST) ABO/Rh B Positive Blood 09/10/2024 8:47 AM WAGE AND SALARY SPECIALIST 09/10/2024 8:49 AM WAGE AND SALARY SPECIALIST Narrative [facility] ([place]) - 09/10/2024 9:11 AM WAGE AND SALARY SPECIALIST Has the patient had Daratumumab or Isatuximab in the past 6 months?->Unknown Vignesh Hawkins MD LAB BLOOD BANK T EST ORDERABLES Final Result [facility] ([place]) [address] [facility] [place] [address] * Antibody screen (09/10/2024 8:47 AM WAGE AND SALARY SPECIALIST) Pathologist [facility] Lonnie, indirect, Gel Interpretation Negative ABSC Blood 09/10/2024 8:47 AM WAGE AND SALARY SPECIALIST 09/10/2024 8:49 AM WAGE AND SALARY SPECIALIST Narrative [facility] ([place]) - 09/10/2024 9:25 AM WAGE AND SALARY SPECIALIST Has the patient had Daratumumab or Isatuximab in the past 6 months?->Unknown Vignesh Hawkins MD LAB BLOOD BANK T EST ORDERABLES Final Result [facility] ([place]) 1 [facility] [place] [address] * (ABNORMAL) Comprehensive metabolic panel (09/10/2024 8:47 AM WAGE AND SALARY SPECIALIST) Pathologist [facility] Sodium 133(L) 135 - 145 mmol/L Comment:sandra moreno(AMB SUrg) Potassium, pl 2.9(C) 3.3 - 4.9 mmol/L [facility] ([place]) Comment:Critical Result call ed by [email or web address] at 2024-09-10 09:18:13. Result Read Back by sandra moreno(AMB SUrg) Chloride 94(L) 97 - 110 mmol/L [facility] ([place]) Comment:sandra moreno(AMB SUrg) CO2 25 22 - 32 mmol/L [facility] ([place]) Comment:sandra cisnerosr(AMB SUrg) Anion gap 14 2 - 15 mmol/L [facility] ([place]) Comment:sandra moreno(AMB SUrg) BUN 12 6 - 25 mg/dL [facility] ([place]) Comment:sandra moreno(AMB SUrg) Creatinine 0.68 [...] - 10.3 mg/dL [facility] ([place]) Comment:sandra cisnerosr(AMB SUrg) Bilirubin, total 0.7 0.1 - 1.2 mg/dL [facility] ([place]) Comment:sandra josh(AMB SUrg) Protein, pl 7.5 6.5 - 8.5 g/dL [facility] ([place]) Comment:sandra josh(AMB SUrg) Albumin 3.9 3.5 - 5.0 g/dL [facility] ([place]) Comment:sandra josh(AMB SUrg) Alk phos 126 40 - 130 Units/L [facility] ([place]) Comment:sandra josh(AMB SUrg) ALT 23 7 - 45 Units/L [facility] ([place]) Comment:sandra josh(AMB SUrg) AST 30 10 - 45 Units/L [facility] ([place]) Comment:sandra cisnerosr(AMB SUrg) Blood 09/10/2024 8:47 AM WAGE AND SALARY SPECIALIST 09/10/2024 8:50 AM WAGE AND SALARY SPECIALIST us Vignesh Hawkins MD LAB BLOOD ORDERA BLES Final Result [facility] ([place]) [address] [facility] Department of Laboratories [place], [place] [address] * ABO / Rh Confirmation Testing (09/10/2024 8:45 AM WAGE AND SALARY SPECIALIST) ABO/Rh Confirmation B Positive [facility] Blood 09/10/2024 8:45 AM WAGE AND SALARY SPECIALIST 09/10/2024 9:13 AM WAGE AND SALARY SPECIALIST us Vignesh Hawkins MD LAB BLOOD ORDERA BLES Final Result [facility] ([place]) [address] [facility] [place] [address] [facility] * Serum Hepatitis C ab (11/01/2014 8:32 AM WAGE AND SALARY SPECIALIST) HCV ab Negative NEG HISTORICAL RESULTS Serum 11/01/2014 8:32 AM WAGE AND SALARY SPECIALIST Narrative HISTORICAL RESULTS - 11/02/2014 3:46 AM WAGE AND SALARY SPECIALIST Interpretive Data If confirmation is required, call Laboratory Customer Service to request sample to be sent to [facility] for Hepatitis C Virus (HCV) RNA Detection and Quantitation by Real-Time Reverse Rail Track Maintainer-PCR (RT-PCR). Current interpretive data was last revised on 2011 us Fariha Whitley MD LAB BLOOD ORDERABLES Final R esult HISTORICAL RESULTS * DIGITAL MAMMOGRAPHY (12/11/2013 11:01 AM CDT) Anatomical Region Laterality Modality Breast Mammography 12/11/2013 11:0 1 AM CDT Narrative 12/12/2013 12:15 AM CDT Vm Mammogram Performed by: LT Screening Mamm Bi Acc#: [id number] DATE OF EXAM: Dec 11 2013 CLINICAL [...] Performed by: LT Screening Mamm Bi Acc#: [id number] DATE OF EXAM: Dec 11 2013 CLINICAL [...] Most Recently Relevant to Health Maintenance Insurance [facility] [place] [employer] [place] PPO Advance Directives For more information, please contact: [phone] * Full Code (Latest Code Status on File) Date Activated Date Inactivated Comments 11/22/2023 6:25 PM 11/25/2023 11:09 PM * Full Code Date Activated Date Inactivated Comments 12/21/2022 5:34 PM 12/24/2022 8:16 PM * Full Code Date Activated Date Inactivated Comments 11/10/2022 4:25 PM 11/11/2022 3:51 PM * Full Code Date Activated Date Inactivated Comments 05/04/2022 1:38 PM 05/05/2022 6:47 PM Care Teams General Car Supervisor Yard Relationship Specialty Start Date End Date Mariah Adams MD PCP - General Internal Medicine 08/19/20 Mitchell Zamarripa MD Referring Physician Rheumatology 03/11/22 Brit More NP Nurse Practitioner Cardiovascular Disease 03/11/22 Cliff Ronquillo NP [address] [place] [address] Nurse Practitioner Nurse Practitioner 05/05/22 Dick Aguilar PA [address] [place] [address] Physician B2B Account Executive Orthopedic Surgery 11/11/22 Gavin Sewell MD [address] [facility] [address] [place] [address] Surgeon Orthopedic Surgery 12/24/22
--- OUTSIDE RECORDS SUMMARY | 2024-11-05 14:23 | XMS_ITS | Clinical Summary ---
Author Organization [facility] Address [address] [place] [address] Phone Care Team Providers Care Mussel Opener Name Role Phone JAM MCDONNELL PA-C Primary Care Provider [phone] Reason for Visit and Chief Complaint ECHOCARDIOGRAM [...] Check-Out Time Diagnosis ECHOCARDIOGRAM ELTON GROVER MD [facility] 08/02/20 23 8:35AM 9:29AM Insurance Includes: Active Insurance Policies Plan Name Member ID Group # Subscriber Relationship Effect cyn Dates 1 - [place] MEDICARE ADVANTAGE [id number] NIGHAT DELANEY Self Clinical Notes Includes: Clinical Notes from this encounter No Clinical Notes Recorded
--- OUTSIDE RECORDS SUMMARY | 2024-11-05 14:23 | XMS_ITS ---
Care Plan - [facility] Created on: November 05, 2024 NIGHAT DELANEY : 1960 Sex: Female Author Organization [facility] Address [address] [place] [address] Phone Care Team Providers Care Floral Decorator Name Role Phone JAM MCDONNELL PA-C Primary Care Provider [phone]
--- OUTSIDE RECORDS SUMMARY | 2024-11-05 14:23 | XMS_ITS | Clinical Summary ---
Author Organization [facility] Address [address] [place] [address] Phone Care Team Providers Care Global Compensation Analyst Name Role Phone Jose Cruz Ledezma Primary Care Provider [phone] Allergies Active Allergy Reactions Criticality Noted Date [...] age to complete this topic Insurance MEDICARE [employer] GENERIC Care Teams Global Compensation Analyst Relationship Specialty Start Date End Date Jose Cruz Ledezma PAC [address] [place] [id number] PCP - General Physician Substation Operator Conversion 01/28/20
--- OUTSIDE RECORDS SUMMARY | 2024-11-05 14:23 | XMS_ITS | Clinical Summary ---
Author Organization [facility] Address [address] [place] [address] Phone Care Team Providers Care World Renowned Chef And Restaurant Owner Name Role Phone JAM MCDONNELL PA-C Primary Care Provider [phone] Reason for Visit and Chief Complaint HEART [...] Diagnosis HEART CENTER FOLLOW UP TIFFANY HOWARD [facility]- 3 1:47PM 2:40PM Insurance Includes: Active Insurance Policies Plan Name Member ID Group # Subscriber Relationship Effect cyn Dates 1 - [place] [employer] MEDICARE ADVANTAGE [id number] NIGHAT DELANEY Self Clinical Notes Includes: Clinical Notes from this encounter No Clinical Notes Recorded
--- OUTSIDE RECORDS SUMMARY | 2024-11-05 14:23 | XMS_ITS | Encounter Summary ---
Author Organization [facility] Address [address] [place] [address] Care Team Providers Care Straightening Machine Feeder Name Role Phone Jose Cruz Ledezma Primary Care Provider [phone] Yg Lee MD Primary Care Provider + Mitchell Zamarripa MD Unavailable [phone] Brit More COLLECTIONS ANALYST Unavailable [phone] Cliff Ronquillo NP Unavailable [phone] Dick Aguilar Unavailable [phone] Gavin Sewell MD Unavailable [phone] Reason for Visit * Reason Onset Date Comments Scheduling Appointments 03/24/2020 Called f or DEXA appointment reminder Encounter Details Date Type Department Care Team (Late st Contact Info) Description 03/24/2020 Telephone [facility] [address] [place] [id number] Valencia Hernandez RT Scheduling Appointments (Called for DEXA appointment reminder) Social History Tobacco Use Types Packs/Day Years Used Date Smoking Tobacco: Former Smokeless Tobacco: Never Alcohol Use Standard Drinks/Week Comments Yes 0 (1 standard drink = 0.6 oz pur e alcohol) occasional Comments No Sex and Gender Information Value Date Recorded Sex Assigned at Not on file Legal Sex Female 11:50 PM CORRUGATED SHEET MATERIAL SHEETER Gender Identity Not on file Sexual Orientation [...] COVID: Suspected 07/22/2024 07/22/2024 07/22/2024 9:25 AM CORRUGATED SHEET MATERIAL SHEETER documented as of this encounter Care Teams Straightening Machine Feeder Relationship Specialty Start Date End Date Jose Cruz Ledezma PA [address] [place] [address] PCP - General 01/24/20 08/18/20 Yg Lee MD [address] [place] [address] PCP - General Internal Medicine 08/19/20 Mitchell Zamarripa MD [address] [place] [address] Referring Physician Rheumatology 03/11/22 Brit More NP [address] [place] [address] Nurse Practitioner Cardiovascular Disease 03/11/22 Cliff Ronquillo NP [address] [place] [address] [address] [place] [address] Nurse Practitioner Nurse Practitioner 05/05/22 Dick Aguilar PA [address] [place] [address] [address] [place] [address] Physician Private Security Guard Orthopedic Surgery 11/11/22 Gavin Sewell MD [address] [facility] [address] [facility] [address] [place] [address] Surgeon Orthopedic Surgery 12/24/22 documented as of this encounter
--- OUTSIDE RECORDS SUMMARY | 2024-11-05 14:23 | XMS_ITS | Clinical Summary ---
Author Organization [facility] Address [address] [place] [address] Phone Care Team Providers Care Mortar Maker Name Role Phone JAM MCDONNELL PA-C Primary Care Provider [phone] Reason for Visit and Chief Complaint HOSPITAL [...] (pediatric), Essential (primary) hypertension TIFFANY Chaudhari [facility] H[facility] 12/13/2023 Last Documented On 4 2:24PM ; [facility] Medical History Includes: Medical History [...] Diagnosis HOSPITAL FOLLOW UP EXAM TIFFANY SAUCEDO [facility]- 4 12:43PM 1:47PM Insurance Includes: Active Insurance Policies Plan Name Member ID Group # Subscriber Relationship Effect cyn Dates 1 - [place] MED[employer] ADVANTAGE [id number] NIGHAT DELANEY Self Clinical Notes Includes: Clinical Notes from this encounter No Clinical Notes Recorded
--- OUTSIDE RECORDS SUMMARY | 2024-11-05 14:23 | XMS_ITS | Clinical Summary ---
Author Organization [facility] Address [address] [place] [address] Phone Care Team Providers Care Warehouse Team Leader Name Role Phone JAM MCDONNELL PA-C Primary Care Provider [phone] Reason for Visit and Chief Complaint LEXISCAN [...] Time Diagnosis LEXISCAN CARDIOLITE ELTON GROVER MD [facility] 08/02/20 23 9:30AM 11:24AM Insurance Includes: Active Insurance Policies Plan Name Member ID Group # Subscriber Relationship Effect cyn Dates 1 - [place] [employer] ADVANTAGE [id number] NIGHAT DELANEY Self Clinical Notes Includes: Clinical Notes from this encounter No Clinical Notes Recorded
== END 2024-11-05 12:31 | disposition home or self-care (01) ==
LOC: ANHBWCIMG 12:31
PROVIDERS: PCP Internal Medicine; Visit Provider Orthopaedic Surgery
DX: M25.531 Pain in right wrist (principal)
CPT/HCPCS: 73110

== ENCOUNTER 2024-11-08 10:58 | Emergency (ER) | payer OTHER, SELFPAY ==
--- NOTE | ~2024-11-08 | XR_ITS ---
Clinical Indication: Cough PA and lateral views of the chest: Comparison: None Findings: The lungs are clear, without evidence of focal consolidation or pleural effusion. Questiona ble mild prominence right hilum. No evidence for cardiomegaly. Left shoulder arthroplasty in place. Impression: Question mild prominence right hilum. Consider contrast-enhanced chest CT to better exclude lymphaden opathy or mass. Reviewed, dictated and finalized at [facility]. Impression: Question mild prominence right hilum. Consider contrast-enhanced chest CT to be tter exclude lymphadenopathy or mass.
[2024-11-08 11:04] VITALS: BP 140/80; PULSE 72; RESP 20; TEMP 36.4; O2SAT 94
--- NOTE | 2024-11-08 11:35 | ED.URI ---
HPI - URI/Sore Throat General Chief Complaint: Upper Respiratory Infection Stated Complaint: cough/trouble breathing Time Seen by Provider: 11/08/24 11:36 Source: patient, RN notes reviewed and old records reviewed Mode of arrival: ambulatory Limitations: no limitations History of Present Illness HPI Narrative: 64-year-old female presents to the [facility] with complaints of shortness of and a nonproductive cough for 5 days. Patient quit smoking 10 years ago. Related Data Home Medications ?Medication ?Instructions ?Recorded ?Confirmed ?Last Taken ?Type alprazolam 0.25 mg tablet 0.25 mg PO QID PRN anxiety 10/04/24 11/05/24 10/11/24 History apixaban 5 mg tablet (Eliquis) 5 mg PO DAILY 10/04/24 11/05/24 Unknown History carvedilol 25 mg tablet 25 mg PO Q12H 10/04/24 11/05/24 10/11/24 History celecoxib 200 mg capsule 200 mg PO BID 10/04/24 11/05/24 10/08/24 History digoxin 125 mcg (0.125 mg) tablet 0.125 mg PO DAILY 10/04/24 11/05/24 10/11/24 History diltiazem HCl 240 mg 240 mg PO DAILY 10/04/24 11/05/24 10/11/24 History capsule,extended release 24 hr, controlled (DILT-XR) duloxetine 60 mg capsule,delayed 60 mg PO DAILY 10/04/24 11/05/24 10/11/24 History release ezetimibe 10 mg tablet 10 mg PO DAILY 10/04/24 11/05/24 10/10/24 History isosorbide mononitrate 60 mg 60 mg PO DAILY 10/04/24 11/05/24 10/11/24 History tablet,extended release 24 hr levothyroxine 100 mcg tablet 100 mcg PO DAILY 10/04/24 11/05/24 10/11/24 History losartan 100 1 tablet PO DAILY 10/04/24 11/05/24 10/10/24 History mg-hydrochlorothiazide 25 mg tablet metoclopramide HCl 10 mg tablet 10 mg PO BID PRN nausea and 10/04/24 11/05/24 10/10/24 History vomiting omeprazole 40 mg capsule,delayed 40 mg PO DAILY 10/04/24 11/05/24 10/10/24 History release rosuvastatin 5 mg tablet 5 mg PO DAILY 10/04/24 11/05/24 10/10/24 History furosemide 20 mg tablet mg 11/08/24 Unknown History Allergies Allergy/AdvReac Type Severity Reaction Status Date / Time Sulfa (Sulfonamide Allergy Severe Hives Verified 11/05/24 12:49 Antibiotics) ciprofloxacin (From Cipro) Allergy Intermediate Other Verified 11/05/24 12:49 Review of Systems Review of Systems: All systems reviewed & are unremarkable except as noted in HPI and below Constitutional: Constitutional: Reports no additional constitutional complaints ENT: Reports system reviewed and no additional complaints, except as documented Cardiovascular: Cardiovascular: Reports no additional cardiovascular complaints, Denies chest pain and Denies dyspnea Respiratory: Respiratory: Reports as per HPI, Denies chest congestion, Reports cough and Reports dyspnea Musculoskeletal: Musculoskeletal: Reports no additional musculoskeletal complaints Integumentary/Breasts: Skin/Breast: Reports system reviewed and no additional complaints, except as docu PMFSH Past Medical History Medical History SHIRA (obstructive sleep apnea) Rheumatoid arthritis HTN (hypertension) Surgical History Surgical History History of bladder surgery H/O: hysterectomy Social History Social History Smoking packs per day: 0.5 Smoking cigarettes per day: 10.0 Years smoked: 10 Smoking pack-years: 5.00 Smoking status: Former smoker Tobacco type: cigarettes Smoking end date: 10/05/19 Alcohol intake: current Living arrangements: with family Spiritual care concerns: No Comments At the time of my signature, I reviewed and agree with the nursing past medical, surgical, social, and family history. There is no relevant family history pertinent to the patient complaint. Exam Const: General: cooperative, healthy appearing, comfortable, no acute distress, well developed, alert and well nourished Nutritional Appearance: well nourished Orientation/consciousness: patient oriented x3 Limitations: no limitations HENMT: Head: normal to inspection Ears: hearing grossly normal bilaterally, external ears normal, TM's normal bilaterally, EAC's normal, mastoids normal and no periauricular adenopathy Face/Nose/Sinus: Normal external nose present Mouth: Yes Normal oral and palatal mucosa present, Yes lip normal, Yes tongue normal and Yes moist mucous membranes Eyes: General: appearance normal, both eyes and all related structures Alignment and Position: alignment normal Neck: Neck: normal visual inspection, full ROM, no lymphadenopathy and no meningeal signs Chest: Chest palpation & inspection: normal inspection of the chest Resp: Effort & Inspection: normal respiratory effort and able to speak in complete sentences Auscultation: no crackles, no rales, no rhonchi, wheezes expiratory wheezes and scattered wheezes and diminished lung sounds Cardio: Rate: regular rate Skin: General skin exam: normal color and no rashes or lesions noted Neuro: General: patient oriented x3, gait normal, moves all extremities and no meningeal signs Cognition (Neuro): normal cognition Speech: normal speech Gait exam (Neuro): Normal gait present Extrem: General: normal to inspection, full ROM, capillary refill normal and normal gait Psych: Appearance: grossly normal and well kempt Mental Status: mental status grossly normal Speech and movement: Normal speech and movement present and Clear speech present Affect: normal affect Attitude: cooperative Course Course Level of Care: Express Care Visit Vital Signs Vital signs: Vital Signs Temperature 97.5 F L 11/08/24 11:04 Pulse Rate 72 11/08/24 11:04 Respiratory Rate 20 11/08/24 11:04 Blood Pressure 140/80 11/08/24 11:04 Pulse Oximetry 94 11/08/24 11:04 Oxygen Delivery Room Air 11/08/24 11:04 Temperature 97.5 F L 11/08/24 11:04 Pulse Rate 72 11/08/24 11:04 Respiratory Rate 20 11/08/24 11:04 Blood Pressure 140/80 11/08/24 11:04 Pulse Oximetry 94 11/08/24 11:04 Oxygen Delivery Room Air 11/08/24 11:04 Reviewed MDM - URI/Sore Throat MDM Narrative Medical decision making narrative: Patient sitting comfortably in exam. Nontoxic, vitals stable. Patient in no acute distress. Patient presents with 5 day history of cough, congestion. Chest x-ray negative. Patient is appropriate for outpatient treatment of bronchitis, due to past medical history will cover with doxycycline and give an albuterol inhaler. Abnormal finding was noted on x-ray, encourage patient to follow-up with primary for further evaluation and a CT scan. Discharge instructions reviewed with patient, as well as provided in writing per nursing staff. The instructions also include specific and strict return/GO TO THE ER as well as f/u information. All questions have been answered, and the patient deny any further questions with discharge and discharge plan. Some parts of this dictation were generated by voice recognition software and may contain typographical and/or grammatical inaccuracies. Differential Diagnosis Differential diagnosis: Likely upper respiratory infection, otitis media, sinusitis, viral infection, bronchitis, influenza and pharyngitis Imaging Data Radiologist's impression: Clinical Indication: Cough PA and lateral views of the chest: Comparison: None Findings: The lungs are clear, without evidence of focal consolidation or pleural effusion. Questionable mild prominence right hilum. No evidence for cardiomegaly. Left shoulder arthroplasty in place. Impression: Question mild prominence right hilum. Consider contrast-enhanced chest CT to better exclude lymphadenopathy or mass. Critical Care Time Critical Care Time Critical Care Time: No Discharge Plan Discharge Clinical Impression: Abnormal finding on lung imaging Acute bronchitis Qualifiers: Bronchitis organism: unspecified organism Qualified Code(s): J20.9 - Acute bronchitis, unspecified Patient Disposition: Home, Self-Care Condition: Stable Instructions: Antibiotic Form, Acute Bronchitis (ED) Additional Instructions: please call your primary care doctor for further evaluation of the abnormal finding on x-ray. Take medications as prescribed for worsening symptoms go directly to the emergency Patient Language: Yi Prescriptions: New albuterol sulfate 90 mcg/actuation HFA aerosol inhaler 2 puff inhalation QID PRN (Reason: shortness of breath or wheezing) Qty: 6.7 0RF (DME) Aerochamber MV Spacer See Rx Instructions .Route Qty: 1 0RF Rx Instructions: As directed doxycycline monohydrate 100 mg tablet 100 mg PO BID Qty: 14 0RF No Action celecoxib 200 mg capsule 200 mg PO BID carvedilol 25 mg tablet 25 mg PO Q12H diltiazem HCl [DILT-XR] 240 mg capsule,ext.rel 24h degradable 240 mg PO DAILY omeprazole 40 mg capsule,delayed release(DR/EC) 40 mg PO DAILY levothyroxine 100 mcg tablet 100 mcg PO DAILY losartan-hydrochlorothiazide 100-25 mg tablet 1 tablet PO DAILY isosorbide mononitrate 60 mg tablet extended release 24 hr 60 mg PO DAILY alprazolam 0.25 mg tablet 0.25 mg PO QID PRN (Reason: anxiety) digoxin 125 mcg (0.125 mg) tablet 0.125 mg PO DAILY metoclopramide HCl 10 mg tablet 10 mg PO BID PRN (Reason: nausea and vomiting) ezetimibe 10 mg tablet 10 mg PO DAILY rosuvastatin 5 mg tablet 5 mg PO DAILY duloxetine 60 mg capsule,delayed release(DR/EC) 60 mg PO DAILY Eliquis 5 mg tablet 5 mg PO DAILY furosemide 20 mg tablet ibuprofen 600 mg tablet 600 mg PO TID PRN (Reason: fever or pain) Qty: 30 1RF oxycodone-acetaminophen 7.5-325 mg tablet 1 tablet PO .q6 h PRN (Reason: pain) Qty: 30 0RF sennosides-docusate sodium [Senna with Docusate Sodium] 8.6-50 mg tablet 1 tab-cap PO BID PRN (Reason: constipation) Qty: 20 1RF Follow-up/Referrals: Rosa,Yg Zaldivar MD [Primary Care Provider] - 1 Day ( express care follow-up, abnormal finding on x-ray) Stand Alone Forms: Work/School Release IP Time of Disposition: 12:09
--- OUTSIDE RECORDS SUMMARY | 2024-11-08 12:47 | XMS_ITS | Clinical Summary ---
Author Organization [facility] [employer] Address [address] [place] [address] Care Team Providers Care Substation Inspector Name Role Phone Shandra Ruffin Malcolm WISDOM-GARAGE HELPER Primary Care Provider Source Comments [facility] [employer],non-owned Affiliates and Associated Physician Practices is amultiple site organization consisting of ambulatory clinics and hospital sitesin [place], [place], [place] and [place]. This disclosure is being madepursuant to the Care Everywhere program and may not contain all information available regarding this patient. Last updated 18.[facility] [employer] Allergies Active Allergy Reactions Criticality Noted Date [...] LURIA, FLUZONE TRIVALENT; 6MO+) (IIV3) 06/16/2016,06/11/2015,06/01/2014,2012,06/14/2012,06/01/2011 Covid [employer] primary monoval ent 12+ yr 0.3mL Purple [...] CALENDAR YEAR 2024 SCREENING FOR DIABETES 08/31/2025 , 08/11/2021, 03/31/2021, Additional history exists PNEUMOCOCCAL VACCINE [...] complete this topic MENINGOCOCCAL (Group B) VACCINE SHARED DECISION-MAKING Aged Out No longer eligible based on patient's age to complete this topic MENINGOCOCCAL GROUPS A/C/Y/W VACCINE Aged Out No longer eligible based on patient's age to complete this topic Procedures Procedure Name Priority Date/Time Associated Diagnosis Comments COMPREHENSIVE METABOLIC PANEL 08/31/2022 9:26 AM BOTTLE GAUGER from Last 3 Months or Most Recently Relevant to Health Maintenance Results * (ABNORMAL) COMPREHENSIVE METABOLIC PANEL (08/31/2022 9:26 AM BOTTLE GAUGER) Glucose 105(H) 65 - 99 mg/dL [facility] [...] 29 U/L [facility] Comment: Test Performed at: [facility] [address] [place] [address] LUISA LAWRENCE DO,MPH 08/31/2022 9:26 AM BOTTLE GAUGER 08/31/2022 9:27 AM BOTTLE GAUGER Mitchell Zamarripa MD LAB - CHEMISTRY INGRID DE GUZMAN [facility] Organization Address City/State/ZIP Co de Phone Number [facility] [address] [place] [address] from Last 3 Months or Most Recently Relevant to Health Maintenance Advance Directives * FULL RESUSCITATION (Latest Code Status on File) Date Activated Date Inactivated Comments 11/08/2011 12:50 PM 11/10/2011 12:21 AM Care Teams Substation Inspector Relationship Specialty Start Date End Date Shandra Ruffin, PROFILE STITCHING 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-GARAGE HELPER [address] [place] [phone] PCP - General 04/02/22
--- OUTSIDE RECORDS SUMMARY | 2024-11-08 12:47 | XMS_ITS | Referral Summary ---
Author Organization [facility] [employer] Address [address] [place] [address] Care Team Providers Care Distillery Miller Helper Name Role Phone Shandra Ruffin Malcolm WISDOM-SOIL SORT WORKER Primary Care Provider Source Comments [facility],non-owned Affiliates and Associated Physician Practices is amultiple site organization consisting of ambulatory clinics and hospital sitesin [place], [place], [place] and [place]. This disclosure is being madepursuant to the Care Everywhere program and may not contain all information available regarding this patient. Last updated 18.[facility] Allergies Active Allergy Reactions Criticality Noted Date [...] LURIA, FLUZONE TRIVALENT; 6MO+) (IIV3) 06/16/2016,06/11/2015,06/01/2014,2012,06/14/2012,06/01/2011 Covid [employer] primary monoval ent 12+ yr 0.3mL Purple [...] Comments COMPREHENSIVE METABOLIC PANEL 08/31/2022 9:26 AM GANG LEADER from Last 3 Months or Most Recently Relevant to Health Maintenance Results * (ABNORMAL) COMPREHENSIVE METABOLIC PANEL (08/31/2022 9:26 AM GANG LEADER) Glucose 105(H) 65 - 99 mg/dL [facility] [...] 29 U/L [facility] Comment: Test Performed at: [facility] [address] [place] [address] LUISA LAWRENCE DO,MPH 08/31/2022 9:26 AM GANG LEADER 08/31/2022 9:27 AM GANG LEADER Mitchell Zamarripa MD LAB - CHEMISTRY INGRID DE GUZMAN [facility] Organization Address City/State/ZIP Co de Phone Number [facility] [address] [place] [address] from Last 3 Months or Most Recently Relevant to Health Maintenance Advance Directives * FULL RESUSCITATION (Latest Code Status on File) Date Activated Date Inactivated Comments 11/08/2011 12:50 PM 11/10/2011 12:21 AM Care Teams Distillery Miller Helper Relationship Specialty Start Date End Date Shandra Ruffin, CUSHION WORKER-SOIL SORT WORKER [address] [place] [phone] PCP - General 04/02/22
--- OUTSIDE RECORDS SUMMARY | 2024-11-08 12:48 | XMS_ITS | Encounter Summary ---
Author Organization [facility] Address [address] [place] [address] Care Team Providers Care Drainage Design Coordinator Name Role Phone Yg Lee MD Primary Care Provider [phone] Shandra Ruffin APRN-LEASING ASSOCIATE Primary Care Provider Yg Lee MD Primary Care Provider [phone] Shandra Ruffin [facility] Primary Care Provider Yg Lee MD Primary Care Provider [phone] Shandra Ruffin APRN-[facility] Primary Care Provider Encounter Details Date Type Department Care Team (Late st Contact Info) Description 05/18/2019 Telephone [facility] [address] [place] [address] Mitchell Zamarripa MD [address] [place] [address] [place] [address] Social History Tobacco Use Types [...] a call. [place] Patient Call Back number: [phone]. documented in this encounter Plan of Treatment Not on file documented as of this encounter Visit Diagnoses Not on filedocumented in this encounter Care Teams Drainage Design Coordinator Relationship Specialty Start Date End Date Yg Lee MD [address] [place] [phone] PCP - General 10/28/11 05/23/19 Shandra Ruffin APRN-LEASING ASSOCIATE [address] [place], [place] [phone] PCP - General 05/24/19 07/20/20 Yg Lee MD [address] [place], [place] [phone] PCP - General Internal Medicine 07/21/20 07/21/20 Shandra Ruffin APRN-LEASING ASSOCIATE [address] [place], [place] [phone] PCP - General 07/22/20 11/15/21 Yg Lee MD [address] [place] [phone] PCP - General Internal Medicine 11/16/21 04/01/22 Shandra Ruffin APRN-LEASING ASSOCIATE [address] [place], [place] [phone] PCP - General 04/02/22 documented as of this encounter
--- OUTSIDE RECORDS SUMMARY | 2024-11-08 12:48 | XMS_ITS | Clinical Summary ---
Author Organization [facility] Address [address] [place] [address] Phone Care Team Providers Care Anodic Treater Name Role Phone JAM MCDONNELL PA-C Primary Care Provider [phone] Reason for Visit and Chief Complaint HEART [...] apnea, unspecified, Supraventricular tachycardia, unspecified [facility] HOW[facility] 11/14/2023 Last Documented On 4 12:05PM ; [facility] Medical History Includes: Medical History addressed during [...] Diagnosis HEART CENTER CHECK UP TIFFANY HOWARD [facility] 4 10:58AM 11:28AM Insurance Includes: Active Insurance Policies Plan Name Member ID Group # Subscriber Relationship Effect cyn Dates 1 - [employer] MEDIC[employer] ADVANTAGE [id number] NIGHAT DELANEY Self Clinical Notes Includes: Clinical Notes from this encounter No Clinical Notes Recorded
--- OUTSIDE RECORDS SUMMARY | 2024-11-08 12:48 | XMS_ITS ---
Author Organization [facility] Address [address] [place] [address] Phone Care Team Providers Care Assistant At Surgery Name Role Phone JAM MCDONNELL PA-C Primary Care Provider [phone] Plan of Treatment No Plan of Treatment [...] On 07/08/2010 5:57PM By ALVIN BASS ; [facility] Premarin 1.25 MG OR TABS 09/02/2009 - 08/28/2010 Provi anastasia: Diagnosis: Last Documented On 11/11/2009 9:36AM By BONNIE MORALES ; [facility] Premarin 1.25 MG OR TABS 07/23/2008 - 07/18/2009 Provi anastasia: Diagnosis: Last Documented On 11/11/2009 9:37AM By BONNIE MORALES ; [facility] Amoxicillin 500 MG OR TABS 07/03/2007 - 07/13/2007 Pro vider: Diagnosis: Last Documented On 11/11/2009 9:38AM By BONNIE MORALES ; [facility] Premarin 1.25 MG OR TABS 07/05/2006 - 06/30/2007 Provi anastasia: Diagnosis: Last Documented On 11/11/2009 9:39AM By BONNIE MORALES ; [facility] Premarin 1.25 MG OR TABS 08/27/2005 - 07/23/2006 Provi anastasia: Diagnosis: Last Documented On 11/11/2009 9:40AM By BONNIE MORALES ; [facility] Medications Administered Includes: Administered Medications in patient's chart No Administered Medications Recorded Results Includes: Results from 11/09/2023 through 11/08/2024 No Results Recorded For Specified Dates History of Present Illness History of Present Illness not supported for this document type No History of Present Illness Recorded Social History Description Last Updated 11/11/2009 Last Documented On 0 9:43AM ; [facility] Exercise frequency was three times/week 11/11/2009 Last Documented On 0 9:43AM ; [facility] Exercising regularly 11/11/2009 Last Documented On 0 9:43AM ; [facility] Sexually active 11/11/2009 Last Documented On 0 9:43AM ; [facility] Sexually active with 1 partners in the l ast year 11/11/2009 Last Documented On 0 9:43AM ; [facility] Smoking Status Unknown Procedures and Surgical History Includes: Procedures from 11/09/2023 through 11/08/2024 Procedures Code Diagnosis Performing Provider Service Location Service Date CLINIC FACILITY FEE (Signi/Sep Eval & Man) G0463 Nonrheumatic mitral (valve) insufficiency, Paroxysmal atrial fibrillation, Obstructive sleep apnea (adult) (pediatric), Essential (primary) hypertension [facility] 12/13/2023 Last Documented On 4 2:24PM ; [facility] CLINIC FACILITY FEE (Signi/Sep Eval & Man) 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, Sleep apnea, unspecified, Supraventricular tachycardia, unspecified [facility] 11/14/2023 Last Documented On 4 12:05PM ; [facility] Medical History Includes: Medical History in patient's chart Description Last Updated HYSTERECTOMY ~BTL 11/11/2009 Last Documented On 0 9:43AM ; [facility] 2 living children 11/11/2009 Last Documented On 0 9:43AM ; [facility] A mammogram was performed 11/11/2009 Last Documented On 0 9:43AM ; [facility] A Pap smear was performed 11/11/2009 Last Documented On 0 9:43AM ; [facility] weight: was 7.4 lbs 11/11/2009 Last Documented On 0 9:43AM ; [facility] Breast problems 11/11/2009 Last Documented On 0 9:43AM ; [facility] Delivery date 1983 11/11/2009 Last Documented On 0 9:43AM ; [facility] Duration of labor: was six hr 11/11/2009 Last Documented On 0 9:43AM ; [facility] Gestational age: was 40 weeks 11/11/2009 Last Documented On 0 9:43AM ; [facility] 2 11/11/2009 Last Documented On 0 9:43AM ; [facility] History of the 2nd : 11/11/2009 Last Documented On 0 9:43AM ; [facility] Last mammogram date: 07/19/08 11/11/2009 Last Documented On 0 9:43AM ; [facility] Last pap smear date 200711/11/2009 Last Documented On 0 9:43AM ; [facility] Oral contraceptives 11/11/2009 Last Documented On 0 9:43AM ; [facility] Status post tubal ligation 11/11/2009 Last Documented On 0 9:43AM ; [facility] Family History Includes: Family History in patient's chart Description Last Updated Family history of Cancer 11/11/2009 Last Documented On 0 9:43AM ; [facility] Family history of thyroid disease 2009 Last Documented On 0 9:43AM ; [facility] Family medical history of high blood pre ssure 11/11/2009 Last Documented On 0 9:43AM ; [facility] Review of Systems Review of Systems not supported for this document type No Review of Systems Recorded Mental Status No Mental Status Recorded Functional Status No Functional Status Recorded Physical Exam Physical Exam not supported for this document type No Physical Exam Recorded Allergies Includes: Active, inactive, and resolved Allergies No Known Allergies Encounters Includes: Encounters from 11/09/2023 through 11/08/2024 Encounter Provider Location Date Check-In Time Check- Out Time Diagnosis HOSPITAL FOLLOW UP EXAM TIFFANY SAUCEDO ANP [facility]- 4 12:43PM 1:47PM HEART CENTER CHECK UP TIFFANY HOWARD [facility]- 4 10:58AM 11:28AM Insurance Includes: Active Insurance Policies Plan Name Member ID Group # Subscriber Relationship Effect cyn Dates 1 - [employer] MED[employer] ADVANTAGE [id number] NIGHAT Guevara Clinical Notes Includes: Signed Clinical Notes starting from 09/17/2022 No Clinical Notes Recorded
--- OUTSIDE RECORDS SUMMARY | 2024-11-08 12:48 | XMS_ITS | Clinical Summary ---
Author Organization [facility] Address [address] [place] [address] Care Team Providers Care Senior Ios Software Engineer Name Role Phone Yg [place] MD Primary Care Provider [phone] Allergies Active Allergy Reactions Criticality Noted Date [...] (Dexilant) 60 mg Delayed Release capsule Lot: [id number] Ex: 10/21 Qty: 8 5 Capsule Active [...] Active apixaban (ELIQUIS) 5 mg tablet Lot: [id number] ex: 05/2025 qty: 8 14 Tablet Active [...] t be different from the original. [facility] [id number] 09/01/22 Problem Noted Date Diagnosed Date Pulmonary [...] Encounters Date Type Department Care Team Description 11/05/2024 External Device Data [facility] Provider, Abstract 10/17/2024 External Device Data [facility] Provider, Abstract 10/15/2024 [place] [address] [place] [address] Yg [place] MD Gastroesophageal reflux disease without esophagitis 10/12/2024 Abstract [place] [address] [place] [address] Provider, Abstract 10/05/2024 Telephone [place] [address] [place] [address] Yg [place] MD Needs Appointment 09/20/2024 External Device Data [facility] Provider, Abstract 09/19/2024 [place] [address] [place] [address] Yg [place] MD Essential hypertension, benign 09/11/2024 External Device Data [facility] Provider, Abstract 08/21/2024 Abstract [place] [address] [place] [address] Provider, Abstract 08/16/2024 Refill [place] [address] [place] [address] Yg [place] MD Other specified anxiety disorders 08/15/2024 [place] [address] [place] [address] Yg [place] MD Provider Call from Last 3 Months Immunizations Immunization Administration Dates Next Due (ADACEL/BOOSTRIX)(10 YR UP) TDAP VACCINE, 0.5ML, IM 06/15/2011 (PFIZER)(12 YR UP) COVID-19 VACCINE - EMERGENCY USE AUTHORIZATION, MRNA, [id number](PF) 30 MCG/0.3 ML IM SUSP 04/22/2021,04/01/2021 (PNEUMOVAX 23)(50 YRS UP) PN EUMOCOCCAL POLYSACCHARIDE (PPV23) 0.5 ML, IM 07/18/2017,06/15/2011 (PREVNAR 13)(6 WKS UP) PNEUM OCOCCAL CONJUGATE (PCV13) 0.5 ML, IM 10/20/2020 (PREVNAR 20)(6 WKS UP) PNEUM OCOCCAL CONJUGATE VACCINE 20-VALENT (PCV20), POLYSACCHARIDE [id number] CONJUGATE, ADJUVANT 0.5 ML (PF) IM 02/23/2023 [...] file 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 Gender Identity Not on file Sexual Orientation [...] Description 12/04/2024 3:00 PM CDT Office Visit [facility] Primary Care [address] [place] [address] Yg [place] MD [address] [place] [address] [address] [place] [address] Health Maintenance Due Date Last [...] 08/29/2024 09/01/2022, 10/20/2020, 10/21/2017, Additional history exists BREAST CANCER SCREENING 05/16/2025 05/16/20 24, 10/08/2022, 10/08/2021, Additional history exists COLORECTAL CANCER SCREENING (AUTO ORDER) 04/22/2026 04/22/2016, 11/01/2011 COLORECTAL SCREENING 04/22/2026 04/22/2016, 11/01/2011, 11/01/2011 Colorectal Cancer Screening (AUTO ORDER) 04/22/2026 Colorectal Cancer Screening 04/22/2026 Pre-Diabetes and Diabetes Screening 06/15/2027 06/15/2024, 08/24/2023, 08/11/2021, Additional history exists Medical Devices Implanted Type Area Brand Executive Device Identifier Shelf Expiration Date Model / Serial / Lot Stent Pncrtc Frmn Flx 5fr 5cm 6552 - [id number] Implanted:Qty: 1 on 02/24/2018 by John White MD at [facility] Stent N/A: Pancreas [employer] [id number] 09/29/2022 [id number] / / [id number] Procedures Procedure Name Priority Date/Time Associated Diagnosis Comments HEMOGLOBIN A1C Routine 06/15/2024 9:16 AM CDT Abnormal glucose MAMMO 3D KIRILL SCREEN BILAT W OR WO CAD Routine 05/16/2024 1:15 PM CDT Screening mammogram, encounter for from Last 3 Months or Most Recently Relevant to Health Maintenance Results * HEMOGLOBIN A1C (06/15/2024 9:16 AM CDT) HEMOGLOBIN A1C 5.2 <5.7 % of total Hgb [facility] Comment: For the purpose of screening for the presence of diabetes: <5.7% Consistent with the absence of diabetes 5.7-6.4% Consistent with increased risk for diabetes (prediabetes) > or =6.5% Consistent with diabetes This assay result is consistent with a decreased risk of diabetes. Currently, no consensus exists regarding use of hemoglobin A1c for diagnosis of diabetes in children. According to [place] Diabetes Association (ADA) guidelines, hemoglobin A1c <7.0% represents optimal control in non- diabetic patients. Different metrics may apply to specific patient populations. Standards of Medical Care in Diabetes(ADA). ESTIMATED AVERAGE GLUCOSE (MG/DL) 103 mg/dL [facility] ESTIMATED AVERAGE GLUCOSE (MMOL/L) 5.7 mmol/L [facility] Comment: FASTING:YES FASTING: YES Test Performed at: [facility] [place] [address] [place] [address] [facility] Vo Blood 06/15/2024 9:16 AM CDT 06/15/2024 9:17 AM CDT us Yg [place] MD CHEMISTRY ORDERABLES Final Re sult [facility] [phone] [facility] [place] [address] [place] [address] * MAMMO 3D KIRILL SCREEN BILAT W [...] 2020-Present) Name:Antoinette Da Silva Relation to Subscriber:Self Name:Aisha Da Silvachristianne Toro Payer ID:Not on file Type:RX Commercial Address: [address] [place] MEDICARE Advance Directives For more information, please contact: [phone] Documents on File Type Date Recorded Patient Regulatory Affairs Director Expl anation Advance Directive Living Will 10/20/2020 [...] 12:41 PM 10/31/2015 7:49 PM Care Teams Senior Ios Software Engineer Relationship Specialty Start Date End Date Yg [place] MD PCP - General Internal Medicine 12/20/18
--- OUTSIDE RECORDS SUMMARY | 2024-11-08 12:48 | XMS_ITS | Clinical Summary ---
Author Organization [facility] Address [address] [place] [address] Phone Care Team Providers Care Cytologist Name Role Phone JAM MCDONNELL PA-C Primary Care Provider [phone] Reason for Visit and Chief Complaint HOSPITAL [...] (adult) (pediatric), Essential (primary) hypertension TIFFANY Chaudhari [facility] H[facility] 12/13/2023 Last Documented On 4 2:24PM ; [facility] Medical History Includes: Medical History addressed [...] Diagnosis HOSPITAL FOLLOW UP EXAM TIFFANY SAUCEDO [facility]- 4 12:43PM 1:47PM Insurance Includes: Active Insurance Policies Plan Name Member ID Group # Subscriber Relationship Effect cyn Dates 1 - [employer] MEDIC[employer] ADVANTAGE [id number] NIGHAT DELANEY Self Clinical Notes Includes: Clinical Notes from this encounter No Clinical Notes Recorded
--- OUTSIDE RECORDS SUMMARY | 2024-11-08 12:48 | XMS_ITS | Clinical Summary ---
Author Organization [facility] Address [address] [place] [address] Phone Care Team Providers Care Lot Attendant Name Role Phone JAM MCDONNELL PA-C Primary Care Provider [phone] Reason for Visit and Chief Complaint LEXISCAN [...] Time Diagnosis LEXISCAN CARDIOLITE ELTON GROVER MD [facility] H[facility] 08/02/20 23 9:30AM 11:24AM Insurance Includes: Active Insurance Policies Plan Name Member ID Group # Subscriber Relationship Effect cyn Dates 1 - [employer] MEDICARE ADVANTAGE [id number] NIGHAT DELANEY Self Clinical Notes Includes: Clinical Notes from this encounter No Clinical Notes Recorded
--- OUTSIDE RECORDS SUMMARY | 2024-11-08 12:48 | XMS_ITS | Patient Health Summary ---
Author Organization [facility] Address [address] [place] [address] Care Team Providers [employer] Ticket Sales Name Role Phone Shandra Ruffin Malcolm WISDOM-ANIMAL HUSBANDMAN Primary Care Provider Note from [facility],non-owned Affiliates and Associated Physician Practices is amultiple site organization consisting of ambulatory clinics and hospital sitesin [place], [place], [place] and [place]. This disclosure is being madepursuant to the Care Everywhere program and may not contain all information available regarding this patient. Last updated 18.[facility] Allergies * Ciprofloxacin(Other,Myalgias) -Medium Criticality * [...] 06/11/2015, 06/01/2014, 07/28/2013, 06/14/2012, 06/01/2011) * Covid [employer] primary monovalent 12+ yr 0.3mL Purple cap(Given [...] * CENTROMERE B ANTIBODIES(Performed 03/31/2021) * MONTIEL (SM)+BUS ANALYST ANTIBODY PANEL(Performed 03/31/2021) * MARTHA-1 ANTIBODY(Performed [...] for Arthritis, Myalgia, Hx of psoriasis * BUS ANALYST ANTIBODY(Performed 05/24/2019) Performed for Arthritis, Myalgia, [...] * (ABNORMAL) C-REACTIVE PROTEIN (08/31/2022 9:26 AM BURRER OPERATOR) Only the most recent of6 resultswithin the time period is included. Pathologist [facility] C-Reactive Protein 27.6(H) <8.0 mg/L [facility] Comment: REPORT COMMENT: FASTING:YES Test Performed at: [place], [place] [address] LUISA LAWRENCE DO,MPH 08/31/2022 9:26 AM BURRER OPERATOR 08/31/2022 9:27 AM BURRER OPERATOR Mitchell Zamarripa MD LAB - CHEMISTRY INGRID DE GUZMAN [facility] [address] [place] [address] * ERYTHROCYTE SEDIMENTATION RATE (08/31/2022 9:26 AM BURRER OPERATOR) Only the most recent of6 resultswithin the time period is included. Pathologist [facility] Erythrocyte Sedimentation Rate Westergren 25 < OR = 30 mm/h [facility] Comment: Test Performed at: [facility] [id number] [employer] [place] [address] LUISA LAWRENCE DO,MPH 08/31/2022 9:26 AM BURRER OPERATOR 08/31/2022 9:27 AM BURRER OPERATOR Mitchell Zamarripa MD LAB - HEMATOLOGY ORD ERABLES [facility] [address] [place] [address] * (ABNORMAL) CBC WITH DIFFERENTIAL (08/31/2022 9:26 AM BURRER OPERATOR) Only the most recent of6 resultswithin [...] 0.9 % [facility] Comment: Test Performed at: [facility] [address] [place] [address] LUISA LAWRENCE DO,MPH Blasts [facility] nRBC [facility] Comments [facility] Comment: Test Performed at: [facility] [address] [employer] [address] LUISA LAWRENCE DO,MPH 08/31/2022 9:26 AM BURRER OPERATOR 08/31/2022 9:27 AM BURRER OPERATOR Mitchell Zamarripa MD LAB - HEMATOLOGY ORD [facility] Organization Address City/State/ZIP Co de Phone Number [facility] [address] [place] [address] * (ABNORMAL) COMPREHENSIVE METABOLIC PANEL (08/31/2022 9:26 AM BURRER OPERATOR) Only the most recent of6 resultswithin [...] 29 U/L [facility] Comment: Test Performed at: [facility] [address] [place] [address] LUISA LAWRENCE DO,MPH 08/31/2022 9:26 AM BURRER OPERATOR 08/31/2022 9:27 AM BURRER OPERATOR Mitchell Zamarripa MD LAB - CHEMISTRY ORDE GAB Performing Organization Address [facility] de Phone Number [facility] [address] [place] [phone] * URINALYSIS W/MICROSCOPIC NO CULTURE (08/11/2021 8:16 AM BURRER OPERATOR) Only the most recent of3 resultswithin the time period is included. Color UA YELLOW YELLOW [facility] Appearance CLEAR CLEAR [facility] Specific Mobile UA 1.010 1.001 - 1.035 [facility] pH [...] SEEN /LPF [facility] Comment: Test Performed at: [place], [place] [address] LUISA LAWRENCE DO,MPH Granular Casts [facility] Casts UA [facility] Yeast [facility] Comments [facility] Note [facility] Comment: Test Performed at: [place], [place] [address] LUISA LAWRENCE DO,MPH 08/11/2021 8:16 AM BURRER OPERATOR 08/11/2021 8:17 AM BURRER OPERATOR Mitchell Zamarripa MD LAB - URINALYSIS ORD ERABLES Performing Organization Address [facility] Co de Phone Number [facility] [address] [place] [address] * URIC ACID BLOOD (08/11/2021 8:16 AM BURRER OPERATOR) Only the most recent of4 resultswithin the time period is included. Uric Acid 5.8 2.5 - 7.0 mg/dL [facility] Comment: Therapeutic target for gout patients: <6.0 mg/dL Test Performed at: [place] [address] LUISA LAWRENCE DO,MPH 08/11/2021 8:16 AM BURRER OPERATOR 08/11/2021 8:17 AM BURRER OPERATOR Mitchell Zamarripa MD LAB - CHEMISTRY INGRID Galvez Organization Address City/State/ZIP Co de Phone Number [facility] [address] [place] [address] * XR FOOT RIGHT 3VW OR MORE (08/03/2021 2:52 PM BURRER OPERATOR) Only the most recent of2 resultswithin the time period is included. Anatomical Region Laterality Modality Ankle / Foot Radiographic Kristyn ging 08/03/2021 2:57 PM BURRER OPERATOR Impressions 08/03/2021 3:17 PM BURRER OPERATOR IMPRESSION: 1. Right hand: Mild arthritis [...] 3:17 PM . Narrative 08/03/2021 3:17 PM BURRER OPERATOR Exam: 1.XR HAND RIGHT 3VW 2.XR [...] osteophytes. There is moderate narrowing of the mmhvnqqf-pmukqwxtt-ylysrahdh joint space. No erosions are seen. The [...] osteophytes. There is moderate narrowing of the ipbtggjr-wvpbmdllj-loztmzdyd joint space. No erosions are seen. Thebones [...] LEFT 3VW OR MORE (08/03/2021 2:52 PM BURRER OPERATOR) Only the most recent of2 resultswithin the time period is included. Anatomical Region Laterality Modality Ankle / Foot Radiographic Kristyn ging 08/03/2021 2:57 PM BURRER OPERATOR Impressions 08/03/2021 3:17 PM BURRER OPERATOR IMPRESSION: 1. Right hand: Mild arthritis [...] 3:17 PM . Narrative 08/03/2021 3:17 PM BURRER OPERATOR Exam: 1.XR HAND RIGHT 3VW 2.XR [...] osteophytes. There is moderate narrowing of the vtkyfbed-wwzhgyjyg-suxvltifr joint space. No erosions are seen. The [...] osteophytes. There is moderate narrowing of the iftqyafn-gglbkczcq-lqbbgvefy joint space. No erosions are seen. Thebones [...] RIGHT 3VW OR MORE (08/03/2021 2:52 PM BURRER OPERATOR) Only the most recent of2 resultswithin the time period is included. Anatomical Region Laterality Modality Wrist / Hand Radiographic Kristyn ging 08/03/2021 2:57 PM BURRER OPERATOR Impressions 08/03/2021 3:17 PM BURRER OPERATOR IMPRESSION: 1. Right hand: Mild arthritis [...] 3:17 PM . Narrative 08/03/2021 3:17 PM BURRER OPERATOR Exam: 1.XR HAND RIGHT 3VW 2.XR [...] osteophytes. There is moderate narrowing of the siyqcvgq-ffrmyvnfm-tihfwlnku joint space. No erosions are seen. The [...] osteophytes. There is moderate narrowing of the sbqqglgn-dbinlbqgg-sffsynbxk joint space. No erosions are seen. Thebones [...] LEFT 3VW OR MORE (08/03/2021 2:52 PM BURRER OPERATOR) Only the most recent of2 resultswithin the time period is included. Anatomical Region Laterality Modality Wrist / Hand Radiographic Kristyn ging 08/03/2021 2:57 PM BURRER OPERATOR Impressions 08/03/2021 3:17 PM BURRER OPERATOR IMPRESSION: 1. Right hand: Mild arthritis [...] 3:17 PM . Narrative 08/03/2021 3:17 PM BURRER OPERATOR Exam: 1.XR HAND RIGHT 3VW 2.XR [...] osteophytes. There is moderate narrowing of the wtfzpzfw-qjppctklj-xowvshuqw joint space. No erosions are seen. The [...] soft tissues are normal. Procedure Note Dimas Rainse MD - 08/03/2021 Exam: 1.XR HAND RIGHT [...] osteophytes. There is moderate narrowing of the xkxgftut-bvzejgseh-sudabijvy joint space. No erosions are seen. Thebones [...] RIGHT 3VW OR MORE (08/03/2021 2:52 PM BURRER OPERATOR) Anatomical Region Laterality Modality Wrist / Hand Radiographic Kristyn ging 08/03/2021 2:57 PM BURRER OPERATOR Impressions 08/03/2021 3:17 PM BURRER OPERATOR IMPRESSION: 1. Right hand: Mild arthritis [...] 3:17 PM . Narrative 08/03/2021 3:17 PM BURRER OPERATOR Exam: 1.XR HAND RIGHT 3VW 2.XR [...] osteophytes. There is moderate narrowing of the rcqofecr-nrxuauvjh-xdfukruhz joint space. No erosions are seen. The [...] osteophytes. There is moderate narrowing of the tfhwnwmb-zoghsdniv-ncrjmhxed joint space. No erosions are seen. Thebones [...] LEFT 3VW OR MORE (08/03/2021 2:52 PM BURRER OPERATOR) Anatomical Region Laterality Modality Wrist / Hand Radiographic Kristyn ging 08/03/2021 2:57 PM BURRER OPERATOR Impressions 08/03/2021 3:17 PM BURRER OPERATOR IMPRESSION: 1. Right hand: Mild arthritis [...] 3:17 PM . Narrative 08/03/2021 3:17 PM BURRER OPERATOR Exam: 1.XR HAND RIGHT 3VW 2.XR [...] osteophytes. There is moderate narrowing of the kpvyccus-lzalrvfvk-rcpaadrhb joint space. No erosions are seen. The [...] osteophytes. There is moderate narrowing of the zpjokdlf-ihlruxoga-fxsudkbou joint space. No erosions are seen. Thebones [...] MD DIAGNOSTIC IMAGING O RDERABLES * MONTIEL (SM)+BUS ANALYST ANTIBODY PANEL (03/31/2021 9:59 AM CDT) SM Antibody <1.0 NEG <1.0 NEG AI [facility] SM/BUS ANALYST Antibody <1.0 NEG <1.0 NEG AI [facility] Comment: Test Performed at: [facility] [address] [place] [address] LUISA LAWRENCE DO,MPH 03/31/2021 9:59 AM CDT 03/31/2021 9:59 AM CDT Mitchell Zamarripa MD LAB - SEROLOGY ORDER XOCHITL Performing Organization Address [facility] Co de Phone Number [facility] [address] [place] [address] * CENTROMERE B ANTIBODIES (03/31/2021 9:59 AM CDT) Centromere B Antibody <1.0 NEG <1.0 NEG AI [facility] Comment: Test Performed at: [facility] [address] [place] [address] LUISA LAWRENCE DO,MPH 03/31/2021 9:59 AM CDT 03/31/2021 9:59 AM CDT Mitchell Zamarripa MD LAB - SEROLOGY ORDER XOCHITL Performing Organization Address [facility] Co de Phone Number [facility] [address] [place] [address] * CHROMATIN ANTIBODY (03/31/2021 9:59 AM CDT) Chromatin Nucleosomal Antibody <1.0 NEG <1.0 NEG AI [facility] Comment: Test Performed at: [facility] [place] [facility] [place] [address] [facility] [place] [address] LUISA LAWRENCE DO,MPH 03/31/2021 9:59 AM CDT 03/31/2021 9:59 AM CDT Mitchell Zamarripa MD LAB - SEROLOGY ORDER XOCHITL Performing Organization Address [facility] Co de Phone Number [facility] [address] [place] [address] * RNA POLYMERASE III ANTIBODY IGG (03/31/2021 9:59 AM CDT) RNA Polymerase 3 Antibody <20 <20 Units [facility] Comment: Test Performed at: [facility] [place] [facility] [address] [place] [address] JONATHAN LUQUE MD,PHD,JAQUELINE 03/31/2021 9:59 AM CDT 03/31/2021 9:59 AM CDT Mitchell Zamarripa MD LAB - SEROLOGY ORDER XOCHITL Performing Organization Address City/[facility] Co de Phone Number [facility] [address] [place] [address] * PM/SCL-100 ANTIBODY IGG (03/31/2021 9:59 AM CDT) PM Scl 100 AB <20 <20 Units [facility] Comment: Negative: <20 Weak Positive: 20 - 39 Moderate Positive: 40 - 80 Strong Positive: >80 Comments: This test was developed and its performance characteristics determined by [facility]. It has not been cleared or approved by the Food and Drug Administration. Test Performed at: [facility] [address] [place] [id number] NATALYA PEREZ MD 03/31/2021 9:59 AM CDT 03/31/2021 9:59 AM CDT Mitchell Zamarripa MD LAB - SEROLOGY ORDER XOHCITL Performing Organization Address [facility] Co de Phone Number [facility] [address] [place] [address] * HISTONE ANTIBODY (03/31/2021 9:59 AM CDT) [facility] Histone Antibodies <1.0 U [facility] Comment: Value Expanation of Results <1.0 Negative 1.0-1.5 Weak Positive 1.6-2.5 Moderate Positive >2.5 Strong Positive Test Performed at: [facility] [place] [facility]/[employer] [facility] [address] [place] [address] JONATHAN LUQUE MD,PHD,JAQUELINE 03/31/2021 9:59 AM CDT 03/31/2021 9:59 AM CDT Mitchell Zamarripa MD LAB - CHEMISTRY INGRID DE GUZMAN Performing Organization Address City/[facility] Co de Phone Number [facility] [address] [place] [address] * SS-B (SJOGREN'S) ANTIBODY (03/31/2021 9:59 AM CDT) Only the most recent of2 resultswithin the time period is included. Sjogren's Antibodies (SSB) <1.0 NEG <1.0 NEG AI [facility] Comment: Test Performed at: [facility] [address] [place] [address] LUISA LAWRENCE DO,MPH 03/31/2021 9:59 AM CDT 03/31/2021 9:59 AM CDT Mitchell Zamarripa MD LAB - CHEMISTRY TOLSTOYLeidy [facility] Performing Organization Address [facility] [place] [address] * SS-A (SJOGREN'S) ANTIBODY (03/31/2021 9:59 AM CDT) Only the most recent of2 resultswithin the time period is included. Sjogren's Antibodies (SSA) <1.0 NEG <1.0 NEG AI [facility] Comment: Test Performed at: [place] [facility] [address] LUISA LARWENCE DO,MPH 03/31/2021 9:59 AM CDT 03/31/2021 9:59 AM CDT Mitchell Zamarripa MD LAB - CHEMISTRY INGRID DE GUZMAN Performing Organization Address [facility] Co de Phone Number [facility] [phone] [place] [address] * SCLERODERMA 70 (SCL) ANTIBODY (03/31/2021 9:59 AM CDT) Only the most recent of2 resultswithin the time period is included. SCL-70 Antibody <1.0 NEG <1.0 NEG AI [facility] Comment: Test Performed at: [facility] [place] [facility] [employer] [address] [place] [address] LUISA LAWRENCE DO,MPH 03/31/2021 9:59 AM CDT 03/31/2021 9:59 AM CDT Mitchell Zamarripa MD LAB - CHEMISTRY INGRID DE GUZMAN Performing Organization Address [facility] Co de Phone Number [facility] [phone] [place] [address] * DNA ANTIBODY DOUBLE STRANDED (03/31/2021 9:59 AM CDT) dsDNA Antibody <1 IU/mL [facility] Comment: IU/mL Interpretation < or = 4 Negative 5-9 Indeterminate > or = 10 Positive Test Performed at: [place], [place] [address] LUISA LAWRENCE DO,MPH 03/31/2021 9:59 AM CDT 03/31/2021 9:59 AM CDT Mitchell Zamarripa MD LAB - HEMATOLOGY SANAZ ORANTES Performing Organization Address [facility] Co de Phone Number [facility] [phone] [place] [address] * MARTHA-1 ANTIBODY (03/31/2021 9:59 AM CDT) Martha-1 Antibody <1.0 NEG <1.0 NEG AI [facility] Comment: Test Performed at: [place] [address] LUISA LAWRENCE DO,MPH 03/31/2021 9:59 AM CDT 03/31/2021 9:59 AM CDT Mitchell Zamarripa MD LAB - CHEMISTRY INGRID DE GUZMAN Performing Organization Address [facility] Co de Phone Number [place] [phone] * ALDOLASE (03/31/2021 9:59 AM CDT) Only the most recent of3 resultswithin the time period is included. Aldolase 5.2 < OR = 8.1 U/L [facility] Comment: Test Performed at: [facility] [address] [place], [place] [address] LUISA LAWRENCE DO,MPH 03/31/2021 9:59 AM CDT 03/31/2021 9:59 AM CDT Mitchell Zamarripa MD LAB - CHEMISTRY INGRID DE GUZMAN Performing Organization Address [facility] Co de Phone Number [facility] [phone] [place] [address] * LDH BLOOD (03/31/2021 9:59 AM CDT) Only the most recent of3 resultswithin the time period is included. LD-Total 181 120 - 250 U/L [facility] Comment: Test Performed at: [place] [address] LUISA LAWRENCE DO,MPH 03/31/2021 9:59 AM CDT 03/31/2021 9:59 AM CDT Mitchell Zamarripa MD LAB - CHEMISTRY INGRID DE GUZMAN Performing Organization Address [facility] Co de Phone Number [facility] [phone] [place] [address] * CK BLOOD (03/31/2021 9:59 AM CDT) Only the most recent of3 resultswithin the time period is included. CK 68 29 - 143 U/L [facility] Comment: Test Performed at: [place] [address] LUISA LAWRENCE DO,MPH 03/31/2021 9:59 AM CDT 03/31/2021 9:59 AM CDT Mitchell Zamarripa MD LAB - CHEMISTRY INGRID DE GUZMAN Performing Organization Address [facility] Co de Phone Number [facility] [address] [place] [phone] * CULTURE URINE REFLEXED I (12/21/2019 8:29 AM CDT) Reflexive Urine Culture NO CULTURE INDICATED [facility] Comment: Test Performed at: [place], [place] [address] LUISA LAWRENCE DO,MPH 12/21/2019 8:29 AM CDT 12/21/2019 8:31 AM CDT Mitchell Zamarripa MD LAB - MICROBIOLOGY O RDERABLES Performing Organization Address [facility] de Phone Number [facility] [address] [place] [address] * (ABNORMAL) URINALYSIS W/MICROSCOPIC REFLEX TO CULTURE (12/21/2019 8:29 AM CDT) Color UA YELLOW YELLOW [facility] Appearance CLOUDY(A) CLEAR [facility] Specific Mobile UA 1.016 1.001 - 1.035 [facility] pH [...] MUCOUS THREADS [facility] Comment: Test Performed at: [facility] [facility] [place] [address] LUISA LAWRENCE DO,MPH Reflexive Urine Culture NO CULTURE INDICATED [facility] Comment: REPORT COMMENT: FASTING:YES Test Performed at: [place] [address] LUISA LAWRENCE DO,MPH Urine URINE SPECIMEN OBTAINED BY CLEAN CATCH PROCEDURE / Unknown 12/21/2019 8:29 AM CDT 12/21/2019 8:31 AM CDT Mitchell Zamarripa MD LAB - URINALYSIS ORD ERABLES Performing Organization Address [facility] Co de Phone Number [facility] [address] [place] [address] * (ABNORMAL) TY BLOOD SINGLE PATTERN (07/23/2019 2:21 PM BURRER OPERATOR) TY Pattern Speckled( A) 07/25/2019 5:39 PM BURRER OPERATOR [facility] ([facility]) TY Titer 1:80(A) 07/25/2019 5:39 PM BURRER OPERATOR [facility] ([facility]) Comment: Performed by [facility], [address] [place] [address],[place] [address] [email or web address], Barry Carmona MD, Lab. Director Blood BLOOD SPECIMEN / Unknown Lab Venipuncture / Unknown 07/23/2019 2:21 PM BURRER OPERATOR 07/23/2019 3:13 PM BURRER OPERATOR Janes Smith MD LAB - CHEMISTRY INGRID DE GUZMAN [facility]) [address] [place] [address], [facility] * (ABNORMAL) SCLERODERMA COMPREHENSIVE AB PANEL (07/23/2019 2:21 PM BURRER OPERATOR) TY HEp-2 IgG Detected(H ) <1:80 07/26/2019 7:52 PM BURRER OPERATOR [facility] ([facility]) TY Interpretive Comment See Note 07/26/2019 7:52 PM BURRER OPERATOR [facility] ([facility]) Comment: Speckled Pattern Clinical associations: SLE, SSc, SjS, DM, PM, MCTD, UCTD. May also be found in healthy individuals Main autoantibodies: Anti-SSA-52 (Ro52), anti-SSA-60 (Ro60), anti-SS-B/LA, anti-Kareem-1 (anti-Scl-70), Montiel, anti-U1-BUS ANALYST, anti-U2-BUS ANALYST, anti-Mi-2, anti-TIF1g, anti-Ku, anti-RNA polymerase, anti-DFS70/LEDGF-P75 [...] 0 - 40 AU/mL 07/26/2019 7:52 PM [facility] ([facility]) Comment: INTERPRETIVE INFORMATION: Scleroderma (Scl-70) (LAUREN) [...] testing for centromere, RNA polymerase III and U3-BUS ANALYST, PM/Scl, or Th/To antibodies. RNA Polymerase 3 Antibody IgG 5 0 - 19 Units 07/26/2019 7:52 PM [facility] ([facility]) Comment: INTERPRETIVE INFORMATION: RNA Polymerase III [...] antibodies associated with SSc, including centromere, Scl-70, U3-BUS ANALYST, PM/Scl, or Th/To. Montiel/BUS ANALYST (LAUREN) Antibody IgG 1 0 - 40 AU/mL 07/26/2019 7:52 PM [facility] ([facility]) Comment: INTERPRETIVE INFORMATION: Montiel/BUS ANALYST (LAUREN) Antibody, IgG 29 AU/mL or Less ............. Negative 30 - 40 AU/mL ................ Equivocal 41 AU/mL or Greater .......... Positive Montiel/BUS ANALYST antibodies are frequently seen in patients with mixed connective tissue disease (MCTD) and are also associated with other systemic autoimmune rheumatic diseases (SARDs) such as systemic lupus erythematosus (SLE), systemic sclerosis, and myositis. Antibodies targeting the Montiel/BUS ANALYST antigenic complex also recognize Montiel antigens, therefore, the Montiel antibody response must be considered when interpreting these results. PM/Scl 100 Antibody IgG Negative Negative 07/26/2019 7:52 PM [facility] ([facility]) Comment: INTERPRETIVE INFORMATION: PM/Scl-100 Antibody, IgG [...] occur. Test developed and characteristics determined by [facility]. See Compliance Statement D: [employer]/CS Fibrillarin (U3 BUS ANALYST) Antibody IgG Negative Negative 07/26/2019 7:52 PM BURRER OPERATOR [facility] ([facility]) Comment: Interpretive Information: Fibrillarin (U3 BUS ANALYST) Antibody, IgG The presence of fibrillarin (U3-BUS ANALYST) IgG antibodies in association with an [...] a multi-ethnic cohort of SSc patients (n=98), U3-BUS ANALYST antibodies detected by immunoblot had an agreement of 98.9 percent with the gold standard immunoprecipitation (IP) assay. Approximately 71 percent (5/7) of the borderline U3-BUS ANALYST results with TY nucleolar pattern in this cohort were IP negative. Test developed and characteristics determined by [facility]. See Compliance Statement D: [employer]/CS Performed by [facility], [address] [place] [address] [email or web address], Barry Carmona MD, Lab. Director Blood BLOOD SPECIMEN / Unknown Lab Venipuncture / Unknown 07/23/2019 2:21 PM BURRER OPERATOR 07/23/2019 3:13 PM BURRER OPERATOR Janes Smith MD LAB - SEROLOGY ORDER XOCHITL [facility] ([facility]) [address] [place] [address], [facility] * CYCLIC CITRUL PEPTIDE ANTIBODY IGG/IGA (CCP) (07/23/2019 2:21 PM BURRER OPERATOR) CCP Antibodies IgG/IgA 10 0 - 19 units 07/24/2019 11:06 PM BURRER OPERATOR [facility] ([facility]) Comment: Negative <20 Weak positive 20 - 39 Moderate positive 40 - 59 Strong positive >59 Blood BLOOD SPECIMEN / Unknown Lab Venipuncture / Unknown 07/23/2019 2:21 PM BURRER OPERATOR 07/23/2019 3:13 PM BURRER OPERATOR Narrative [facility] ([facility]) - 07/24/2019 11:06 PM BURRER OPERATOR Performed at: - [address] [id number] Homebound Teacher: Virginia Mojica MD, Phone: [phone] Janes Smith MD LAB - SEROLOGY ORDER XOCHITL [facility] ([facility]) [address] [place] [address] * DNA ANTIBODY DS CRITHIDIA TITER (07/23/2019 2:21 PM BURRER OPERATOR) [facility] dsDNA Antibody IgG <1:10 <1:10 2018 4:54 PM BURRER OPERATOR [facility] ([facility]) Comment: INTERPRETIVE INFORMATION: Double-Stranded DNA (dsDNA) [...] recommendations for testing may be found at [email or web address]. Performed by [facility], [address] [place] [id number] [email or web address], Barry Carmona MD, Lab. Director Blood BLOOD SPECIMEN / Unknown Lab Venipuncture / Unknown 07/23/2019 2:21 PM BURRER OPERATOR 07/23/2019 3:13 PM BURRER OPERATOR Janes Smith MD LAB - SEROLOGY ORDER XOCHITL [facility] ([facility]) [address] [address] [address] * (ABNORMAL) LUPUS ANTICOAGULANT PANEL (07/23/2019 2:21 PM BURRER OPERATOR) APTT 28.3 23.0 - 38.4 Seconds 07/24/2019 11:07 AM [facility] PT 11.6(L) 12.1 - 14.8 Seconds 07/24/2019 11:07 AM [facility] INR 0.9 See Comment 07/24/2019 11:07 AM [facility] [place] Buffer 46.5 Seconds 019 11:07 AM [facility] [place] Phospholipid 42.7 Seconds 07/24/2019 11:07 AM [facility] [place] Delta 3.8 <8.0 Seconds 07/24/2019 11:07 AM [facility] Interpretation [place] Negative Negative 07/24/2019 11:07 AM [facility] Comment:Up to 15-20% of crystal ents [...] Lab Venipuncture / Unknown 07/23/2019 2:21 PM BURRER OPERATOR 07/23/2019 3:13 PM BURRER OPERATOR Janes Smith MD LAB - HEMATOLOGY ORD ERABLES [facility] [address] [phone] * RHEUMATOID FACTOR BLOOD QUANTITATIVE (07/23/2019 2:21 PM BURRER OPERATOR) Rheumatoid Factor <15 <30 IU/mL 07/23/2019 3:42 PM [facility] Blood BLOOD SPECIMEN / Unknown Lab Venipuncture / Unknown 07/23/2019 2:21 PM BURRER OPERATOR 07/23/2019 3:13 PM BURRER OPERATOR Janes Smith MD LAB - CHEMISTRY INGRID DE GUZMAN [facility] Organization Address City/State/ZIP Co de Phone Number [facility] [address] [phone] * OCT (06/25/2019 1:43 PM CDT) Anatomical Region Laterality Modality Other 06/25/2019 1:43 PM CDT Janes Smith MD OPHTHALMOLOGY SERVIC ES ORDERABLES * (ABNORMAL) URINALYSIS REFLEX TO MICROSCOPIC NO CULTURE (05/24/2019 12:43 PM CDT) Color UA Yellow Straw, Yellow, Colorless 05/24/2019 1:10 PM [facility] Clarity UA Clear Clear, Slt Cloudy 05/24/2019 1:10 PM T [facility] Specific Mobile UA 1.014 1.005 - 1.030 05/24/2019 1:10 PM [facility] pH UA 7.0 5.0 - 8.0 pH 05/24/2019 1:10 PM [facility] Protein UA Negative Negative mg/dL 05/24/2019 1:10 PM [facility] Glucose UA Negative Negative mg/dL 05/24/2019 1:10 PM [facility] Ketone UA Negative Negative mg/dL 05/24/2019 1:10 PM [facility] Bilirubin UA Negative Negative mg/dL 05/24/2019 1:10 PM [facility] Blood UA Negative Negative 05/24/2019 1:10 PM [facility] Nitrite UA Negative Negative 05/24/2019 1:10 PM [facility] Leukocyte Esterase Negative Negative 05/24/2019 1:10 PM [facility] Urobilinogen UA Negative Negative mg/dL 05/24/2019 1:10 PM [facility] RBC UA 3-5 None Seen, 0-2, 3-5 /HPF 05/24/2019 1:10 PM CDT [facility] WBC UA 0-5 None Seen, 0-5 /HPF 05/24/2019 1:10 PM CDT [facility] Squamous Epithelial Cells UA 3-5(A) None Seen, 0-2 /HPF 05/24/2019 1:10 PM CDT [facility] Urine URINE SPECIMEN OBTAINED BY CLEAN CATCH PROCEDURE / Unknown Collection / Unknown 05/24/2019 12:43 PM CDT 05/24/2019 12:55 PM CDT Narrative [facility] - 05/24/2019 1:10 PM CDT Janes Smith MD LAB - URINALYSIS ORD ERABLES Performing Organization Address City/State/[facility] Co de Phone Number [address] [phone] * XR ANKLE RIGHT 3VW OR MORE [...] IgG units 05/26/2019 6:08 AM CDT [facility] ([facility]) Comment: The reference interval reflects a 3SD or 99th percentile interval, which is thought to represent a potentially clinically significant result in accordance with the International Consensus Statement on the classification criteria for definitive antiphospholipid syndrome (APS). J Thromb Haem 2006;4:295-306. Blood BLOOD SPECIMEN / Unknown Lab Venipuncture / Unknown 05/24/2019 12:10 PM CDT 05/24/2019 12:49 PM CDT Narrative [facility] ([facility]) - 05/26/2019 6:08 AM CDT Performed at: 01 - [facility] [id number] Homebound Teacher: Virginia Mojica MD, Phone: [phone] Janes Smith MD LAB - SEROLOGY ORDER XOCHITL Performing Organization Address [facility] Co de Phone Number [facility] ([facility]) [address] [place] [address], [place] * BETA-2 GLYCOPROTEIN 1 ANTIBODY IGM (05/24/2019 12:10 PM CDT) [facility] Beta-2 Glycoprotein I Antibody IgM <9 0 - 32 GPI IgM units 05/26/2019 3:07 PM CDT [facility] ([facility]) Comment: The reference interval reflects a 3SD or 99th percentile interval, which is thought to represent a potentially clinically significant result in accordance with the International Consensus Statement on the classification criteria for definitive antiphospholipid syndrome (APS). J Thromb Haem 2006;4:295-306. Blood BLOOD SPECIMEN / Unknown Lab Venipuncture / Unknown 05/24/2019 12:10 PM CDT 05/24/2019 12:49 PM CDT Narrative [facility] ([facility]) - 05/26/2019 3:07 PM CDT Performed at: 01 - [address] [id number] Homebound Teacher: Virginia Mojica MD, Phone: [phone] Janes Smith MD LAB - SEROLOGY ORDER XOCHITL Performing Organization Address [facility] Co de Phone Number [facility] ([facility]) [address] [place] [address], [place] * CARDIOLIPIN ANTIBODY IGA (05/24/2019 12:10 PM CDT) Pathologist [facility] Cardiolipin Antibody IgA <9 0 - 11 APL U/mL 05/25/2019 4:09 PM CDT [facility] ([facility]) Comment: Negative: <12 Indeterminate: 12 - 20 Low-Med Positive: >20 - 80 High Positive: >80 Blood BLOOD SPECIMEN / Unknown Lab Venipuncture / Unknown 05/24/2019 12:10 PM CDT 05/24/2019 12:49 PM CDT Narrative [facility] ([facility]) - 05/25/2019 4:09 PM CDT Performed at: [address] [place] [id number] Homebound Teacher: Khang Rosario PhD, Phone: [phone] Janes Smith MD LAB - SEROLOGY ORDER XOCHITL Performing Organization Address City/[facility] Co de Phone Number [facility] ([facility]) [address] [place] [address] * CARDIOLIPIN ANTIBODY IGM (05/24/2019 12:10 PM CDT) Pathologist [facility] Cardiolipin Antibody IgM <9 0 - 12 MPL U/mL 05/25/2019 4:09 PM CDT [facility]) Comment: Negative: <13 Indeterminate: 13 - 20 Low-Med Positive: >20 - 80 High Positive: >80 Blood BLOOD SPECIMEN / Unknown Lab Venipuncture / Unknown 05/24/2019 12:10 PM CDT 05/24/2019 12:49 PM CDT Narrative [facility] ([facility]) - 05/25/2019 4:09 PM CDT Performed at: [address] [place] [id number] Homebound Teacher: Khang Rosario PhD, Phone: [phone] Janes Smith MD LAB - SEROLOGY ORDER XOCHITL Performing Organization Address City/[facility]/ZIP Co de Phone Number [facility] ([facility]) [address] [place] [address] * CARDIOLIPIN ANTIBODY IGG (05/24/2019 12:10 PM CDT) Pathologist [facility] Cardiolipin Antibody IgG <9 0 - 14 GPL U/mL 05/25/2019 4:09 PM CDT [facility] ([facility]) Comment: Negative: <15 Indeterminate: 15 - 20 Low-Med Positive: >20 - 80 High Positive: >80 Blood BLOOD SPECIMEN / Unknown Lab Venipuncture / Unknown 05/24/2019 12:10 PM CDT 05/24/2019 12:49 PM CDT Narrative [facility] ([facility]) - 05/25/2019 4:09 PM CDT Performed at: - [facility] [address] [place] [id number] Homebound Teacher: Khang Rosario PhD, Phone: [phone] Janes Smith MD LAB - SEROLOGY ORDER XOCHITL Performing Organization Address City/[facility]/ZIP Co de Phone Number [facility] ([facility]) [address] [place] [address] * MONTIEL (SM) ANTIBODY LAUREN (05/24/2019 12:10 PM CDT) Pathologist [facility] Montiel Antibody 3.4 0.0 - 19.9 Units 05/25/2019 10:05 AM CDT [facility] Comment: LAUREN Antibody Numeric Result Interpretation: <20.0 Units: Negative 20.0 - 39.0 Units: Weakly Positive >39.0 Units: Positive Blood BLOOD SPECIMEN / Unknown Lab Venipuncture / Unknown 05/24/2019 12:10 PM CDT 05/24/2019 12:48 PM CDT Janes Smith MD LAB - CHEMISTRY INGRID DE GUZMAN [address] [phone] * BUS ANALYST ANTIBODY (05/24/2019 12:10 PM CDT) [facility] SM/BUS ANALYST Antibody 3.2 0.0 - 19.9 Units 05/25/2019 10:05 AM CDT [facility] Comment: LAUREN Antibody Numeric Result Interpretation: <20.0 Units: Negative 20.0 - 39.0 Units: Weakly Positive >39.0 Units: Positive Blood BLOOD SPECIMEN / Unknown Lab Venipuncture / Unknown 05/24/2019 12:10 PM CDT 05/24/2019 12:48 PM CDT Janes Smith MD LAB - CHEMISTRY INGRID DE GUZMAN Performing Organization Address City/[facility]/ZIP Co de Phone Number [facility] [address] [place] [address] * TY BLOOD SCREEN W/REFLEX TITER (05/24/2019 12:10 PM CDT) TY Negative 05/25/2019 5:07 PM CDT [facility] ([facility]) Comment: Negative <1:80 Borderline 1:80 Positive >1:80 Blood BLOOD SPECIMEN / Unknown Lab Venipuncture / Unknown 05/24/2019 12:10 PM CDT 05/24/2019 12:49 PM CDT Narrative [facility] ([facility]) - 05/25/2019 5:07 PM CDT Performed at: [address] [place] [address] [id number] Homebound Teacher: Khang Rosario PhD, Phone: [phone] Janes Smith MD LAB - CHEMISTRY INGRID DE GUZMAN Performing Organization Address City/[facility] Co de Phone Number [facility] ([facility]) [address] [place] [address] * BETA-2 GLYCOPROTEIN 1 ANTIBODY IGA (05/24/2019 12:10 PM CDT) Beta-2 Glycoprotein I Antibody IgA <9 0 - 25 GPI IgA units 05/26/2019 6:08 AM CDT [facility] ([facility]) Comment: The reference interval reflects a 3SD or 99th percentile interval, which is thought to represent a potentially clinically significant result in accordance with the International Consensus Statement on the classification criteria for definitive antiphospholipid syndrome (APS). J Thromb Haem 2006;4:295-306. Blood BLOOD SPECIMEN / Unknown Lab Venipuncture / Unknown 05/24/2019 12:10 PM CDT 05/24/2019 12:49 PM CDT Narrative [facility] ([facility]) - 05/26/2019 6:08 AM CDT Performed at: [address] [place] [address] [id number] Homebound Teacher: Virginia Mojica MD, Phone: [phone] Janes Smith MD LAB - SEROLOGY ORDER XOCHITL Performing Organization Address [facility] Co de Phone Number [facility] ([facility]) [address] [place] [address] * COMPLEMENT TOTAL (05/24/2019 12:10 PM CDT) Pathologist [facility] Complement Total CH50 >60 42 - 969791 U/mL 05/25/2019 3:08 PM CDT [facility] ([facility]) Blood BLOOD SPECIMEN / Unknown Lab Venipuncture / Unknown 05/24/2019 12:10 PM CDT 05/24/2019 12:49 PM CDT [facility] ([facility]) - 05/25/2019 3:08 PM CDT Performed at: [address] [place] [address] [place] [address] [id number] Homebound Teacher: Khang Rosario PhD, Phone: [phone] Janes Smith MD LAB - CHEMISTRY ORDLeidy DE GUZMAN Performing Organization Address City/[facility] Co de Phone Number [facility]) [address] [place] [address] * VITAMIN D 25-HYDROXY (05/24/2019 12:10 PM CDT) Pathologist [facility] Vitamin D, 25 Hydroxy 62.3 See comment: ng/mL 05/24/2019 1:48 PM CDT [facility] Comment: The recommendations for [...] MD LAB - CHEMISTRY INGRID DE GUZMAN [address] [phone] * COMPLEMENT C4 (05/24/2019 12:10 PM CDT) Complement C4 39 15 - 57 mg/dL 05/24/2019 1:27 PM CDT [facility] Blood BLOOD SPECIMEN / Unknown Lab Venipuncture / Unknown 05/24/2019 12:10 PM CDT 05/24/2019 12:48 PM CDT Janes Smith MD LAB - SEROLOGY ORDER XOCHITL Performing Organization Address [facility]/[place] [address], [facility] [phone] * COMPLEMENT C3 (05/24/2019 12:10 PM CDT) Complement C3 151 82 - 193 mg/dL 05/24/2019 1:27 PM CDT [facility] Blood BLOOD SPECIMEN / Unknown Lab Venipuncture / Unknown 05/24/2019 12:10 PM CDT 05/24/2019 12:48 PM CDT Janes Smith MD LAB - CHEMISTRY INGRID DE GUZMAN Performing Organization Address City/[facility]/[place] [address], [facility] [phone] * CARDIAC RHYTHM STRIP ORDER (11/11/2011 11:11 AM CDT) Narrative Transcriptions Document, Scanned - 11/11/2011 11:11 AM CDT Scanned Document CARDIAC SERVICES ORD ERABLES * CARDIAC ECHOCARDIOGRAM COMPLETE ORDER (11/11/2011 11:11 AM CDT) Narrative Transcriptions Document, Scanned - 11/11/2011 11:11 AM CDT Scanned Document ECHO ORDERABLES * BLOOD TYPE VERIFICATION (10/28/2011 8:35 AM BURRER OPERATOR) ABO Rh B Pos SEE BELOW [facility] Comment: Weak D testing is not performed at [facility] BLOOD SPECIMEN / Unknown 10/28/2011 8:35 AM BURRER OPERATOR 10/28/2011 9:53 AM BURRER OPERATOR Emery Zepeda MD LAB - BLOOD BANK ORD [employer] Performing Organization Address [facility] de Phone Number [facility] [address] [place] [address] * TYPE + SCREEN PANEL (10/28/2011 8:30 AM BURRER OPERATOR) ABO Rh B Pos SEE BELOW [facility] Comment: Weak D testing is not performed at [facility] Antibody Screen Neg [facility] Previous History Check Done Historical blood type on record, type verification complete. [facility] Miscellaneous samples (specimen) BLOOD SPECIMEN / Unknown 10/28/2011 8:30 AM BURRER OPERATOR 10/28/2011 9:23 AM BURRER OPERATOR Emery Zepeda MD LAB - BLOOD BANK ORD [employer] Performing Organization Address City/[facility] Co de Phone Number [facility] [address] [place] [address] * CBC W/O DIFFERENTIAL (10/28/2011 8:30 AM BURRER OPERATOR) WBC 9.4 4.0 - 10.0 K/CUMM [facility] RBC 4.41 3.80 - 5.80 M/CUMM [facility] Hemoglobin 14.1 12.0 - 16.0 gm/dL [facility] Hematocrit 41.2 37.0 - 47.0 % [facility] MCV 93.4 80.0 - 100.0 fl [facility] MCH 32.0 26.0 - 34.0 pg [facility] MCHC 34.2 31.0 - 37.0 gm/dL [facility] RDW 12.5 11.5 - 14.5 % [facility] Platelet Count 373 150 - 400 K/CUMM [facility] Blood specimen (specimen) BLOOD SPECIMEN / Unknown 10/28/2011 8:30 AM BURRER OPERATOR 10/28/2011 9:22 AM BURRER OPERATOR Emery Zepeda MD LAB - HEMATOLOGY ORD ERABLES Performing Organization Address [facility] Co de Phone Number [facility] [address] [place] [address] * BASIC METABOLIC PANEL (CALCIUM TOTAL) (10/28/2011 8:30 AM BURRER OPERATOR) Sodium 141 136 - 145 mmol/L [facility] Potassium 3.9 3.5 - 5.1 mmol/L [facility] Chloride 103 98 - 107 mmol/L [facility] BUN 15 7 - 21.0 mg/dl [facility] Creatinine 0.86 0.5 - 1.3 mg/dl [facility] Glucose 81 65 - 105 mg/dl [facility] CO2 30 22 - 30 mmol/L [facility] Calcium 9.3 8.5 - 10.1 mg/dl [facility] eGFR by MDRD >60 >60 mL/min/1.7 3m2 [facility] Comment eGFR [facility] Comment: The eGFR does not apply to patients who are younger than 18 or older than 70. Blood specimen (specimen) BLOOD SPECIMEN / Unknown 10/28/2011 8:30 AM BURRER OPERATOR 10/28/2011 9:22 AM BURRER OPERATOR Emery Zepeda MD LAB - CHEMISTRY ORDLeidy DE GUZMAN Performing Organization Address City/[facility] Co de Phone Number [facility] [address] [place] [phone] * CULTURE URINE COMPREHENSIVE (06/12/2011 10:00 AM CDT) Culture SEE NOTE [facility] ([facility]) Comment: CULTURE, URINE, SPECIAL MICRO NUMBER: [id number] TEST STATUS: FINAL SPECIMEN SOURCE: URINE (CATHETER COLLECTED) SPECIMEN QUALITY: ADEQUATE RESULT: No Growth NO COLLECTION DATE RECEIVED. WE HAVE USED THE DATE THE SPECIMEN WAS RECEIVED BY THIS LABORATORY THE COLLECTION DATE. IF THIS IS INCORRECT, PLEASE CONTACT CLIENT SERVICES. PHONE NUMBER: [phone] Test Performed at: [facility] [address] [phone] LUISA LAWRENCE DO Urine specimen (specimen) URINE SPECIMEN COLLECTION, CATHETERIZED / Unknown 06/12/2011 10:00 AM CDT 06/10/2011 1:12 AM CDT Narrative [facility] ([facility]) - 06/12/2011 10:00 AM CDT Preferred Lab:->[facility] Emery Zepeda MD LAB - MICROBIOLOGY O RDERABLES [facility] ([facility]) * URINALYSIS - POINT OF CARE (AMB) [facility] (08/29/1998 12:00 AM BURRER OPERATOR) Glucose UA neg [facility] Bilirubin UA POCT neg [facility] Ketones UA POCT neg [facility] Specific Mobile UA 1.010 [facility] Blood Urine POCT neg [facility] pH UA 5.0 COUNT INCLUDES THE [facility] Protein UA neg [facility] Urobilinogen UA neg [facility] Nitrite UA neg [facility] WBC UA neg COUNT INCLUDES THE [facility] Urine specimen (specimen) 08/29/1998 Emery Zepeda MD LAB - POINT OF CARE ORDERABLES [facility] Care Teams [employer] Ticket Sales Relationship Specialty Start Date End Date Shandra Ruffin, BLOCK OPERATOR-ANIMAL HUSBANDMAN [address] [place] [address] PCP - General 04/02/22
--- OUTSIDE RECORDS SUMMARY | 2024-11-08 12:48 | XMS_ITS | Clinical Summary ---
Author Organization [facility] Address [address] [place] [address] Phone Care Team Providers Care Customer Experience Retail Clerk Name Role Phone Jose Cruz Ledezma Primary Care Provider Allergies Active Allergy Reactions Criticality Noted Date [...] to complete this topic Insurance [facility] [id number] fflick GENERIC Care Teams Customer Experience Retail Clerk Relationship Specialty Start Date End Date Jose Cruz Ledezma PAC [address] [place] [id number] PCP - General Physician Family Day Care Provider 01/28/20
--- OUTSIDE RECORDS SUMMARY | 2024-11-08 12:48 | XMS_ITS | Referral Summary ---
Author Organization [facility] Address [address] [place] [address] Care Team Providers Care Kiln Fireman Name Role Phone Mariah Adams MD Primary Care Provider + Mitchell Zamarripa MD Unavailable [phone] Brit More SPRIGGER Unavailable [phone] Cliff Ronquillo NP Unavailable [phone] Dick Aguilar Unavailable [phone] Gavin Sewell MD Unavailable [phone] Encounters Date Type Department Care Team Description 09/10/2024 9:15 AM NOCTURNIST PHYSICIAN - 09/10/2024 10:45 AM NOCTURNIST PHYSICIAN Surgery [facility] Operating Room [address] [place] [address] Vignesh Hawkins MD LAPAROSCOPIC CHOLECYSTECTOMY 09/10/2024 9:16 AM NOCTURNIST PHYSICIAN Anesthesia Event [facility] Operating Room [address] [place] [address] Tonia Gutierrez MD Reynolds, Ethan Emerson, MD 09/10/2024 8:13 AM NOCTURNIST PHYSICIAN - 09/10/2024 2:39 PM NOCTURNIST PHYSICIAN Hospital Encounter [facility] Operating Room [address] [place] [address] Vignesh Hawkins MD Calculus of gallbladder with cholecystitis without biliary obstruction, unspecified cholecystitis acuity Discharge Disposition: Discharge to home or self care 08/14/2024 9:30 AM NOCTURNIST PHYSICIAN Office Visit [facility] [address] [facility] [address] [place] [address] Vignesh Hawkins MD Calculus of [...] 1 tablet (100 mcg total) by mouth clerical support specialist before breakfast 1 Active celecoxib (CeleBREX) 100 [...] 08/14/2024 Assessment & Plan (08/14/2024 9:48 AM NOCTURNIST PHYSICIAN): The patient likely has chronic cholecystitis given [...] (04/23/2022): Added automatically from request for surgery [id number] Posterior tibial tendon dysfunction 03/02/2022 Flat foot [...] 01/04/2018 Assessment & Plan (09/19/2018 1:30 PM NOCTURNIST PHYSICIAN): Low disease activity today on exam. Take [...] often do you attend chur ch or latter-day services? Never 12/23/2022 Do you [...] staff should administer the PHQ-9) 0 11/23/2023 [facility] - Occupational Stress [...] place to sleep or slept in a snf (including now)? No 12/23/2022 Personal Safety Answer Date Recorded Have you ever been in or are you currently in a harmful physical or emotional relationship or is someone making you feel afraid or unsafe? Denies 09/10/2024 Comments No Sex and Gender Information Value Date Recorded Sex Assigned at Not on file Legal Sex Female 11:50 PM NOCTURNIST PHYSICIAN Gender Identity Not on file Sexual Orientation Not on file Last Filed Vital Signs Vital Sign Reading Time Taken Comments Blood Pressure 119/69 09/10/2024 2:00 PM NOCTURNIST PHYSICIAN Pulse 69 09/10/2024 2:00 PM NOCTURNIST PHYSICIAN Temperature 36.4 C (97.6 F) 09/10/2024 2:00 PM NOCTURNIST PHYSICIAN Respiratory Rate 16 09/10/2024 2:00 PM NOCTURNIST PHYSICIAN Oxygen Saturation 94% 09/10/2024 2:00 PM NOCTURNIST PHYSICIAN Inhaled Oxygen Concentration - - Weight 67.6 kg (149 lb 0.5 oz) 09/10/2024 8:15 A M NOCTURNIST PHYSICIAN Height 154.9 cm (5' 1 ) 09/10/2024 8:15 AM NOCTURNIST PHYSICIAN Body Mass Index 28.16 09/10/2024 8:15 AM NOCTURNIST PHYSICIAN Plan of Treatment Not on file Medical Devices Implanted Type Area [employer] Administrator Device Identifier Shelf Expiration Date Model / Serial / Lot Exactech Restrictor Cement Cemex Small Od13mm Tpa-13 - [id number] Implanted:Qty: 1 on 05/04/2022 by Gavin Sewell MD at [facility] Left: Shoulder Exactech 08/28/2023 TPA-13 / / [id number] Exactech Equinoxe Reverse Shoulder +0mm Tray Humeral Adapter 320-10-00 - [id number] - [id number] Implanted:Qty: 1 on 05/04/2022 by Gavin Sewell MD at [facility] Ex[employer]ech [id number] 04/07/2032 320-10-00 / [id number] / Exactech Equinoxe 40mm Small Reverse Constrain Shoulder +2.5mm Liner 320-40-13 - [id number] - [id number] Implanted:Qty: 1 on 05/04/2022 by Gavin Sewell MD at [facility] Ex[employer]ech 01/31/2024 320-40-13 / [id number] / Exactech Equinoxe Lock Reverse Shoulder Glenosphere Screw Bone 320-15-05 - [id number] - [id number] Implanted:Qty: 1 on 05/04/2022 by Gavin Sewell MD at [facility] Left: Shoulder Ex[employer]ech 03/09/2027-15- / [id number] / Exactech Reverse Torque Define Shoulder Kit Screw 320--00 - [id number] - [id number] Implanted:Qty: 1 on 05/04/2022 by Gavin Sewell MD at [facility] Left: Shoulder [employer]ech 02/03/2027 320-20-00 / [id number] / Exactech Equinoxe Small Reverse Superior Posterior Augment Shoulder Left 320-35-07 - [id number] - [id number] Implanted:Qty: 1 on 05/04/2022 by Gavin Sewell MD at [facility] Left: Shoulder [employer]ech [id number] 04/08/2031 320-35-07 / [id number] / Exactech Equinoxe 10mm Stem Humeral Sterile 300-01- - [id number] - [id number] Implanted:Qty: 1 on 05/04/2022 by Gavin Sewell MD at [facility] Left: Shoulder [employer]ech [id number] 09/07/2031 300-10 / [id number] / [employer] Cement Bone Simplex Gentamicin High Viscosity 40gm 6195-1-001 - [id number] Implanted:Qty: 1 on 05/04/2022 by Gavin Sewell MD at [facility] Left: Shoulder [employer] 09/28/2023 6195-1-001 / / [id number] Exactech Equinoxe 40mm 24.3mm Small Reverse Shoulder Sphere Glenoid 320-31-40 - [id number] - [id number] Implanted:Qty: 1 on 05/04/2022 by Gavin Sewell MD at [facility] Left: Shoulder Ex[employer]ech [id number] 12/11/2030 320-31-40 / [id number] / Exactech Equinoxe 4.5mm 38mm Kit Compression Lock Cap Reverse Shoulder 320-20-38 - [id number] - [id number] Implanted:Qty: 1 on 05/04/2022 by Gavin Sewell MD at [facility] Left: Shoulder [employer]ech [id number] 01/12/2027 320-20-38 / [id number] / Exactech Equinoxe 4.5mm 34mm Kit Compression Lock Cap Reverse Shoulder 320-20-34 - [id number] - [id number] Implanted:Qty: 1 on 05/04/2022 by Gavin Sewell MD at [facility] Left: Shoulder Ex[employer]ech [id number] 07/14/2026 320-20-34 / [id number] / [employer] Insert Tibial Knee Fixed Lm Posterior Stabilized Attune 7mm Size 5 Polyethylene [id number] - [id number] Implanted:Qty: 1 on 11/10/2022 by Gavin Sewell MD at [facility] Left: Knee [employer] 07/28/2030 [id number] / / [id number] [employer] Attune Cruciate Retain Cementless Knee Left 5 Component Femoral [id number] - [id number] Implanted:Qty: 1 on 11/10/2022 by Gavin Sewell MD at [facility] Left: Knee [employer] 04/28/2032 [id number] / / [id number] [employer] Attune Fb Tib Base Sz 5 Por [id number] - [id number] Implanted:Qty: 1 on 11/10/2022 by Gavin Sewell MD at [facility] Left: Knee [employer] 03/28/2032 [id number] / / [id number] Procedures Procedure Name Priority Date/Time Associated Diagnosis Comments SURGICAL PATHOLOGY Routine 09/10/2024 10 :29 AM NOCTURNIST PHYSICIAN Calculus of gallbladder with cholecystitis without biliary obstruction, unspecified cholecystitis acuity OK AN ELECTIVE ENDOTRACHEAL AIRWAY Routine 09/10/2024 9:36 AM NOCTURNIST PHYSICIAN LAPAROSCOPIC CHOLECYSTECTOMY 09/10/2024 9:02 AM NOCTURNIST PHYSICIAN Calculus of gallbladder with cholecystitis without biliary obstruction, unspecified cholecystitis acuity EGFR STAT 09/10/2024 8:47 AM NOCTURNIST PHYSICIAN DIFFERENTIAL AUTO STAT 09/10/2024 8:4 7 AM NOCTURNIST PHYSICIAN ANTIBODY SCREEN STAT 09/10/2024 8:47 AM NOCTURNIST PHYSICIAN ABO/RH STAT 09/10/2024 8:47 AM NOCTURNIST PHYSICIAN TYPE AND SCREEN STAT 09/10/2024 8:47 AM NOCTURNIST PHYSICIAN CBC WITH AUTO DIFFERENTIAL STAT 09/10/2024 8:47 AM NOCTURNIST PHYSICIAN COMPREHENSIVE METABOLIC PANEL STAT 09/10/2024 8:47 AM NOCTURNIST PHYSICIAN B ABO / RH CONFIRMATION TESTING STAT 09/10/2024 8:45 AM NOCTURNIST PHYSICIAN SERUM HEPATITIS C AB Routine 11/01/2014 8:32 AM NOCTURNIST PHYSICIAN DIGITAL MAMMOGRAPHY Routine 12/11/2013 1 1:01 AM CDT from Last 3 Months or Most Recently Relevant to Health Maintenance Results * Surgical pathology (09/10/2024 10:29 AM NOCTURNIST PHYSICIAN) Tissue (Gallbladder) 09/10/2024 9:51 AM NOCTURNIST PHYSICIAN Narrative PATHOLOGY [facility] ([place]) - 09/11/2024 3:50 PM NOCTURNIST PHYSICIAN EPIC results best viewed via link to PDF [facility] Department of Pathology [address] [place] [id number] Note to Patients: This report may contain [...] Final Report Patient Name: ANTOINETTE DELANEY Address: [address] [place], [place] [address] Gender: F : 1960 (Age: 64) Service: Surgery Location: [facility] Hospital #: [id number] Patient Type: [facility] Taken: 09/10/2024 Received: 09/10/2024 Accessioned: 09/10/2024 [...] by the Surgical Pathology Department at [facility] as part of an ongoing quality process lead program and in compliance with federally mandated [...] characteristics determined by the Surgical Pathology Department [facility]. It has not been cleared or approved by the U. S. Food and Drug Administration. Note for decalcified specimens: This assay has not been validated on decalcified tissues. Results should be interpreted with caution given the possibility of false negativity on decalcified specimens Vignesh Hawkins MD LAB PATHOLOGY OR DERABLES Final Result Performing Organization Address City/State/[facility] Co de Phone Number PATHOLOGY [facility] ([address] [address] * OK AN ELECTIVE ENDOTRACHEAL AIRWAY (09/10/2024 9:36 AM NOCTURNIST PHYSICIAN) Cliff Lake CRNA - 09/10/2024 9:36 AM NOCTURNIST PHYSICIAN Cliff Davis CRNA 09/10/2024 9:37 AM Airway [...] nal Result * eGFR (09/10/2024 8:47 AM NOCTURNIST PHYSICIAN) eGFR >90 >=60 mL/min/1. 73 m2 Comment: [...] last reviewed 2021. Blood 09/10/2024 8:47 AM NOCTURNIST PHYSICIAN 09/10/2024 8:50 AM NOCTURNIST PHYSICIAN us Vignesh Hawkins MD LAB BLOOD ORDERA BLES Final Result [facility]) [address] [facility] Department [place] [address] * Differential, auto (09/10/2024 8:47 AM NOCTURNIST PHYSICIAN) Neutrophil abs 5.3 1.5 - 6.5 K/cumm Imm gran abs 0.0 0.0 - 0.1 K/cumm [facility] ([place]) Lymphocyte abs 0.8 0.8 - 3.3 K/cumm [facility] ([place]) Monocyte abs 0.6 0.2 - 0.8 K/cumm [facility] ([place]) Eosinophil abs 0.3 0.0 - 0.5 K/cumm [...] revised on 2017. Blood 09/10/2024 8:47 AM NOCTURNIST PHYSICIAN 09/10/2024 8:50 AM NOCTURNIST PHYSICIAN us Vignesh Hawkins MD LAB BLOOD ORDERA BLES Final Result [facility] ([place]) [address] [facility] [place] [address] * (ABNORMAL) CBC with auto differential (09/10/2024 8:47 AM NOCTURNIST PHYSICIAN) WBC 7.1 3.8 - 9.9 K/cumm Hgb [...] [facility] ([place]) Blood 09/10/2024 8:47 AM NOCTURNIST PHYSICIAN 09/10/2024 8:50 AM NOCTURNIST PHYSICIAN Vignesh Hawkins MD LAB BLOOD ORDERA BLES Final Result [facility] ([place]) [address] [facility] Department [place] [address] * ABO/Rh (09/10/2024 8:47 AM NOCTURNIST PHYSICIAN) ABO/Rh B Positive Blood 09/10/2024 8:47 AM NOCTURNIST PHYSICIAN 09/10/2024 8:49 AM NOCTURNIST PHYSICIAN Narrative [facility] ([place]) - 09/10/2024 9:11 AM NOCTURNIST PHYSICIAN Has the patient had Daratumumab or Isatuximab in the past 6 months?->Unknown Vignesh Hawkins MD LAB BLOOD BANK T EST ORDERABLES Final Result [facility] ([place]) [address] [facility] [place] [address] * Antibody screen (09/10/2024 8:47 AM NOCTURNIST PHYSICIAN) Pathologist [facility] Lonnie, indirect, Gel Interpretation Negative ABSC Blood 09/10/2024 8:47 AM NOCTURNIST PHYSICIAN 09/10/2024 8:49 AM NOCTURNIST PHYSICIAN Narrative [facility] ([place]) - 09/10/2024 9:25 AM NOCTURNIST PHYSICIAN Has the patient had Daratumumab or Isatuximab in the past 6 months?->Unknown Vignesh Hawkins MD LAB BLOOD BANK T EST ORDERABLES Final Result [facility] ([place]) [address] [facility] [place] [address] * (ABNORMAL) Comprehensive metabolic panel (09/10/2024 8:47 AM NOCTURNIST PHYSICIAN) Pathologist [facility] Sodium 133(L) 135 - 145 mmol/L Comment:sandra moreno(AMB SUrg) Potassium, pl 2.9(C) 3.3 - 4.9 mmol/L [facility] ([place]) Comment:Critical Result call ed by [email or web address] at 2024-09-10 09:18:13. Result Read Back by [...] Comment:sandra cisnerosr(AMB SUrg) Blood 09/10/2024 8:47 AM NOCTURNIST PHYSICIAN 09/10/2024 8:50 AM NOCTURNIST PHYSICIAN us Vignesh Hawkins MD LAB BLOOD ORDERA BLES Final Result [facility] ([place]) [address] [facility] Department of Laboratories [place], [place] [id number] * ABO / Rh Confirmation Testing (09/10/2024 8:45 AM NOCTURNIST PHYSICIAN) ABO/Rh Confirmation B Positive [facility] Blood 09/10/2024 8:45 AM NOCTURNIST PHYSICIAN 09/10/2024 9:13 AM NOCTURNIST PHYSICIAN us Vignesh Hawkins MD LAB BLOOD ORDERA BLES Final Result [facility] ([place]) [address] [facility] [place] [address] [facility] * Serum Hepatitis C ab (11/01/2014 8:32 AM NOCTURNIST PHYSICIAN) HCV ab Negative NEG HISTORICAL RESULTS Serum 11/01/2014 8:32 AM NOCTURNIST PHYSICIAN Narrative HISTORICAL RESULTS - 11/02/2014 3:46 AM NOCTURNIST PHYSICIAN Interpretive Data If confirmation is required, call Laboratory Customer Service to request sample to be sent to [facility] for Hepatitis C Virus (HCV) RNA Detection and Quantitation by Real-Time Reverse Resp Ther-PCR (RT-PCR). Current interpretive data was last revised on 2011 us Fariha Whitley MD LAB BLOOD ORDERABLES Final R esult HISTORICAL RESULTS * DIGITAL MAMMOGRAPHY (12/11/2013 11:01 AM CDT) Anatomical Region Laterality Modality Breast Mammography 12/11/2013 11:0 1 AM CDT Narrative 12/12/2013 12:15 AM CDT Vm Mammogram Performed by: LT Screening Mamm Bi Acc#: [id number] DATE OF EXAM: Dec 11 2013 CLINICAL [...] Performed by: LT Screening Mamm Bi Acc#: [id number] DATE OF EXAM: Dec 11 2013 CLINICAL [...] Most Recently Relevant to Health Maintenance Insurance [facility] [place]ARE [place] [employer] PPO Advance Directives For more information, please contact: [phone] * Full Code (Latest Code Status on File) Date Activated Date Inactivated Comments 11/22/2023 6:25 PM 11/25/2023 11:09 PM * Full Code Date Activated Date Inactivated Comments 12/21/2022 5:34 PM 12/24/2022 8:16 PM * Full Code Date Activated Date Inactivated Comments 11/10/2022 4:25 PM 11/11/2022 3:51 PM * Full Code Date Activated Date Inactivated Comments 05/04/2022 1:38 PM 05/05/2022 6:47 PM Care Teams Kiln Fireman Relationship Specialty Start Date End Date Mariah Adams MD PCP - General Internal Medicine 08/19/20 Mitchell Zamarripa MD Referring Physician Rheumatology 03/11/22 Brit More NP Nurse Practitioner Cardiovascular Disease 03/11/22 Cliff Ronquillo NP [address] [facility] [address] [address] [place] [address] Nurse Practitioner Nurse Practitioner 05/05/22 Dick Aguilar PA [address] [facility] [address] [address] [place] [address] Physician Director Of Clinical Trials Orthopedic Surgery 11/11/22 Gavin Sewell MD [address] [facility] [address] [address] [place] [address] Surgeon Orthopedic Surgery 12/24/22
--- OUTSIDE RECORDS SUMMARY | 2024-11-08 12:48 | XMS_ITS ---
Care Plan - [facility] Created on: November 08, 2024 NIGHAT DELANEY : 1960 Sex: Female Author Organization [facility] Address [address] [place] [address] Phone Care Team Providers Care Hoisting Laborer Name Role Phone JAM MCDONNELL PA-C Primary Care Provider [phone]
--- OUTSIDE RECORDS SUMMARY | 2024-11-08 12:48 | XMS_ITS | Clinical Summary ---
Author Organization [facility] Address [address] [place] [address] Care Team Providers Care Sole Leather Cutting Machine Operator Name Role Phone Mariah Adams MD Primary Care Provider + Mitchell Zamarripa MD Unavailable [phone] Brit More NP Unavailable [phone] Cliff Ronquillo NP Unavailable [phone] Dick Aguilar Unavailable [phone] Gavin Sewell MD Unavailable [phone] Allergies Active Allergy Reactions Criticality Noted Date [...] 1 tablet (100 mcg total) by mouth it training specialist before breakfast 1 Active celecoxib (CeleBREX) [...] 08/14/2024 Assessment & Plan (08/14/2024 9:48 AM TRACTOR MECHANIC): The patient likely has chronic cholecystitis given [...] (04/23/2022): Added automatically from request for surgery [id number] Posterior tibial tendon dysfunction 03/02/2022 Flat foot [...] 01/04/2018 Assessment & Plan (09/19/2018 1:30 PM TRACTOR MECHANIC): Low disease activity today on exam. Take [...] Department Care Team Description 09/10/2024 9:16 AM TRACTOR MECHANIC Anesthesia Event [facility] Operating Room [address] [place] [address] Tonia Gutierrez MD Reynolds, Ethan Emerson, MD 09/10/2024 9:15 AM TRACTOR MECHANIC - 09/10/2024 10:45 AM TRACTOR MECHANIC Surgery [facility] Operating Room [address] [place] [address] Vignesh Hawkins MD LAPAROSCOPIC CHOLECYSTECTOMY 09/10/2024 8:13 AM TRACTOR MECHANIC - 09/10/2024 2:39 PM TRACTOR MECHANIC Hospital Encounter [facility] Operating Room [address] [place] [address] Vignesh Hawkins MD Calculus of gallbladder with cholecystitis without biliary obstruction, unspecified cholecystitis acuity Discharge Disposition: Discharge to home or self care 08/14/2024 9:30 AM TRACTOR MECHANIC Office Visit [facility] [address] [place] [address] [address] [place] [address] Vignesh Hawkins MD Calculus of gallbladder with [...] How often do you attend chur or mandaen services? Never 12/23/2022 Do you belong to any clubs o r organizations such as restorationist groups, unions, fraternal or athletic groups, or [...] staff should administer the PHQ-9) 0 11/23/2023 [facility] - Occupational [...] to sleep or slept in a senior care (including now)? No 12/23/2022 Personal Safety Answer Date Recorded Have you ever been in or are you currently in a harmful physical or emotional relationship or is someone making you feel afraid or unsafe? Denies 09/10/2024 Comments No Sex and Gender Information Value Date Recorded Sex Assigned at Not on file Legal Sex Female 11:50 PM TRACTOR MECHANIC Gender Identity Not on file Sexual Orientation Not on file Obstetrics History Last Filed Vital Signs Vital Sign Reading Time Taken Comments Blood Pressure 119/69 09/10/2024 2:00 PM TRACTOR MECHANIC Pulse 69 09/10/2024 2:00 PM TRACTOR MECHANIC Temperature 36.4 C (97.6 F) 09/10/2024 2:00 PM TRACTOR MECHANIC Respiratory Rate 16 09/10/2024 2:00 PM TRACTOR MECHANIC Oxygen Saturation 94% 09/10/2024 2:00 PM TRACTOR MECHANIC Inhaled Oxygen Concentration - - Weight 67.6 kg (149 lb 0.5 oz) 09/10/2024 8:15 A M TRACTOR MECHANIC Height 154.9 cm (5' 1 ) 09/10/2024 8:15 AM TRACTOR MECHANIC Body Mass Index 28.16 09/10/2024 8:15 AM TRACTOR MECHANIC Plan of Treatment Health Maintenance Due Date [...] Completed 11/01/2014 Medical Devices Implanted Type Area Receiver Stocker Device Identifier Shelf Expiration Date Model / Serial / Lot Exactech Restrictor Cement Cemex Small Od13mm Tpa-13 - [id number] Implanted:Qty: 1 on 05/04/2022 by Gavin Sewell MD at [facility] Left: Shoulder Exactech 08/28/2023 TPA-13 / / [id number] Exactech Equinoxe Reverse Shoulder +0mm Tray Humeral Adapter 320-10-00 - [id number] - [id number] Implanted:Qty: 1 on 05/04/2022 by Gavin Sewell MD at [facility] Exactech [id number] 04/07/2032 320-10-00 / [id number] / [employer]ech Equinoxe 40mm Small Reverse Constrain Shoulder +2.5mm Liner 320-40-13 - [id number] - [id number] Implanted:Qty: 1 on 05/04/2022 by Gavin Sewell MD at [facility] Ex[employer]ech 01/31/2024 320-40- / [id number] / Ex[employer]ech Equinoxe Lock Reverse Shoulder Glenosphere Screw Bone -15- - [id number] - [id number] Implanted:Qty: 1 on 05/04/2022 by Gavin Sewell MD at [facility] Left: Shoulder Exactech 03/09/2027 [id number] / [id number] / Exactech Reverse Torque Define Shoulder Kit Screw 320-20- - [id number] - [id number] Implanted:Qty: 1 on 05/04/2022 by Gavin Sewell MD at [facility] Left: Shoulder Exactech 02/03/2027 320-20- / [id number] / Ex[employer]ech Equinoxe Small Reverse Superior Posterior Augment Shoulder Left 320-35-07 - [id number] - [id number] Implanted:Qty: 1 on 05/04/2022 by Gavin Sewell MD at [facility] Left: Shoulder [employer]ech [id number] 04/08/2031 320-35-07 / [id number] / Exactech Equinoxe 10mm Stem Humeral Sterile 300- - [id number] - [id number] Implanted:Qty: 1 on 05/04/2022 by Gavin Sewell MD at [facility] Left: Shoulder [employer]ech [id number] 09/07/2031 300-09-07 / [id number] / [employer] Cement Bone Simplex Gentamicin High Viscosity 40 6195-1-001 - [id number] Implanted:Qty: 1 on 05/04/2022 by Gavin Sewell MD at [facility] Left: Shoulder [employer] 09/28/2023 6195-1-001 / / [id number] Exactech Equinoxe 40mm 24.3mm Small Reverse Shoulder Sphere Glenoid 320-31-40 - [id number] - [id number] Implanted:Qty: 1 on 05/04/2022 by Gavin Sewell MD at [facility] Left: Shoulder [employer]ech [id number] 12/11/2030 320-31-40 / [id number] / Ex[employer]ech Equinoxe 4.5mm 38mm Kit Compression Lock Cap Reverse Shoulder 320-20-38 - [id number] - [id number] Implanted:Qty: 1 on 05/04/2022 by Gavin Sewell MD at [facility] Left: Shoulder [employer]ech [id number] 01/12/2027 320-20-38 / [id number] / [employer]ech Equinoxe 4.5mm 34mm Kit Compression Lock Cap Reverse Shoulder 320-20-34 - [id number] - [id number] Implanted:Qty: 1 on 05/04/2022 by Gavin Sewell MD at [facility] Left: Shoulder [employer]ech [id number] 07/14/2026 320-20-34 / [id number] / [employer] Insert Tibial Knee Fixed Lm Posterior Stabilized Attune 7mm Size 5 Polyethylene [id number] - [id number] Implanted:Qty: 1 on 11/10/2022 by Gavin Sewell MD at [facility] Left: Knee [employer] 07/28/2030 [id number] / / [id number] [employer] Attune Cruciate Retain Cementless Knee Left 5 Component Femoral [id number] - [id number] Implanted:Qty: 1 on 11/10/2022 by Gavin Sewell MD at [facility] Left: Knee [employer] 04/28/2032 [id number] / / [id number] [employer] Attune Fb Tib Base Sz 5 Por [id number] - [id number] Implanted:Qty: 1 on 11/10/2022 by Gavin Sewell MD at [facility] Left: Knee [employer] 03/28/2032 [id number] / / [id number] Procedures Procedure Name Priority Date/Time Associated Diagnosis Comments SURGICAL PATHOLOGY Routine 09/10/2024 10 :29 AM TRACTOR MECHANIC Calculus of gallbladder with cholecystitis without biliary obstruction, unspecified cholecystitis acuity [place] AN ELECTIVE ENDOTRACHEAL AIRWAY Routine 09/10/2024 9:36 AM TRACTOR MECHANIC LAPAROSCOPIC CHOLECYSTECTOMY 09/10/2024 9:02 AM TRACTOR MECHANIC Calculus of gallbladder with cholecystitis without biliary obstruction, unspecified cholecystitis acuity EGFR STAT 09/10/2024 8:47 AM TRACTOR MECHANIC DIFFERENTIAL AUTO STAT 09/10/2024 8:4 7 AM TRACTOR MECHANIC ANTIBODY SCREEN STAT 09/10/2024 8:47 AM TRACTOR MECHANIC ABO/RH STAT 09/10/2024 8:47 AM TRACTOR MECHANIC TYPE AND SCREEN STAT 09/10/2024 8:47 AM TRACTOR MECHANIC CBC WITH AUTO DIFFERENTIAL STAT 09/10/2024 8:47 AM TRACTOR MECHANIC COMPREHENSIVE METABOLIC PANEL STAT 09/10/2024 8:47 AM TRACTOR MECHANIC B ABO / RH CONFIRMATION TESTING STAT 09/10/2024 8:45 AM TRACTOR MECHANIC SERUM HEPATITIS C AB Routine 11/01/2014 8:32 AM TRACTOR MECHANIC DIGITAL MAMMOGRAPHY Routine 12/11/2013 1 1:01 AM CDT from Last 3 Months or Most Recently Relevant to Health Maintenance Results * Surgical pathology (09/10/2024 10:29 AM TRACTOR MECHANIC) Tissue (Gallbladder) 09/10/2024 9:51 AM TRACTOR MECHANIC Narrative PATHOLOGY [facility] ([place]) - 09/11/2024 3:50 PM TRACTOR MECHANIC EPIC results best viewed via link to PDF [facility] Department of Pathology [address] [place], [place] [address] Note to Patients: This report may contain [...] Report Patient Name: ANTOINETTE DELANEY Address: [address] [place] [address] Gender: F : 1960 (Age: 64) Service: Surgery Location: [facility] Hospital #: [id number] Patient Type: [facility] Taken: 09/10/2024 Received: 09/10/2024 Accessioned: 09/10/2024 Reported: [...] determined by the Surgical Pathology Department at [facility] as part of an ongoing quality consultant program and in compliance with federally mandated [...] characteristics determined by the Surgical Pathology Department [facility]. It has not been cleared or approved by the U. S. Food and Drug Administration. Note for decalcified specimens: This assay has not been validated on decalcified tissues. Results should be interpreted with caution given the possibility of false negativity on decalcified specimens Vignesh Hawkins MD LAB PATHOLOGY OR DERABLES Final Result PATHOLOGY [facility] ([place] [id number] * [place] AN ELECTIVE ENDOTRACHEAL AIRWAY (09/10/2024 9:36 AM TRACTOR MECHANIC) Cliff Lake CRNA - 09/10/2024 9:36 AM TRACTOR MECHANIC Cliff Davis CRNA 09/10/2024 9:37 AM Airway Patient location: OR Urgency: elective Indications for airway management: anesthesia and airway protection Difficult airway: no Staff: Placed by: ASSOCIATE ACCOUNT MANAGER: Cliff Davis CRNA Emergent airway documentation: Risks [...] nal Result * eGFR (09/10/2024 8:47 AM TRACTOR MECHANIC) eGFR >90 >=60 mL/min/1. 73 m2 Comment: [...] last reviewed 2021. Blood 09/10/2024 8:47 AM TRACTOR MECHANIC 09/10/2024 8:50 AM TRACTOR MECHANIC us Vignesh Hawkins MD LAB BLOOD ORDERA BLES Final Result [facility] ([place]) 1 [facility] Department [place] [address] * Differential, auto (09/10/2024 8:47 AM TRACTOR MECHANIC) Neutrophil abs 5.3 1.5 - 6.5 K/cumm [...] revised on 2017. Blood 09/10/2024 8:47 AM TRACTOR MECHANIC 09/10/2024 8:50 AM TRACTOR MECHANIC Vignesh Hawkins MD LAB BLOOD ORDERA BLES Final Result [facility] ([place]) 1 [facility] Department [place] [address] * (ABNORMAL) CBC with auto differential (09/10/2024 8:47 AM TRACTOR MECHANIC) WBC 7.1 3.8 - 9.9 K/cumm Hgb [...] [facility] ([place]) Blood 09/10/2024 8:47 AM TRACTOR MECHANIC 09/10/2024 8:50 AM TRACTOR MECHANIC us Vignesh Hawkins MD LAB BLOOD ORDERA BLES Final Result [facility] ([place]) 1 [facility] Department [place] [address] * ABO/Rh (09/10/2024 8:47 AM TRACTOR MECHANIC) Pathologist [facility] ABO/Rh B Positive Blood 09/10/2024 8:47 AM TRACTOR MECHANIC 09/10/2024 8:49 AM TRACTOR MECHANIC Narrative [facility] ([place]) - 09/10/2024 9:11 AM TRACTOR MECHANIC Has the patient had Daratumumab or Isatuximab in the past 6 months?->Unknown Vignesh Hawkins MD LAB BLOOD BANK T EST ORDERABLES Final Result [facility] ([place]) 1 [facility] [place] [address] * Antibody screen (09/10/2024 8:47 AM TRACTOR MECHANIC) [facility] Lonnie, indirect, Gel Interpretation Negative ABSC Blood 09/10/2024 8:47 AM TRACTOR MECHANIC 09/10/2024 8:49 AM TRACTOR MECHANIC Narrative [facility] ([place]) - 09/10/2024 9:25 AM TRACTOR MECHANIC Has the patient had Daratumumab or Isatuximab in the past 6 months?->Unknown Vignesh Hawkins MD LAB BLOOD BANK T EST ORDERABLES Final Result Performing Organization Address City/[facility]/ZIP Co de Phone Number [facility] ([place]) 1 [facility] [place] [address] * (ABNORMAL) Comprehensive metabolic panel (09/10/2024 8:47 AM TRACTOR MECHANIC) [facility] Sodium 133(L) 135 - 145 mmol/L Comment:sandra moreno(AMB SUrg) Potassium, pl 2.9(C) 3.3 - 4.9 mmol/L [facility] ([place]) Comment:Critical Result call ed by [email or web address] at 2024-09-10 09:18:13. Result Read Back by [...] Comment:sandra moreno(AMB SUrg) Blood 09/10/2024 8:47 AM TRACTOR MECHANIC 09/10/2024 8:50 AM TRACTOR MECHANIC us Vignesh Hawkins MD LAB BLOOD ORDERA BLES Final Result [facility] ([place]) 1 [facility] Department [place] [address] * ABO / Rh Confirmation Testing (09/10/2024 8:45 AM TRACTOR MECHANIC) ABO/Rh Confirmation B Positive [facility] Blood 09/10/2024 8:45 AM TRACTOR MECHANIC 09/10/2024 9:13 AM TRACTOR MECHANIC us Vignesh Hawkins MD LAB BLOOD ORDERA BLES Final Result [facility] ([place]) 1 [facility] Department [place] [address] [facility] * Serum Hepatitis C ab (11/01/2014 8:32 AM TRACTOR MECHANIC) HCV ab Negative NEG HISTORICAL RESULTS Serum 11/01/2014 8:32 AM TRACTOR MECHANIC Narrative HISTORICAL RESULTS - 11/02/2014 3:46 AM TRACTOR MECHANIC Interpretive Data If confirmation is required, call Laboratory Customer Service to request sample to be sent to [facility] for Hepatitis C Virus (HCV) RNA Detection and Quantitation by Real-Time Reverse Farm Management Adviser-PCR (RT-PCR). Current interpretive data was last revised on 2011 us Fariha Whitley MD LAB BLOOD ORDERABLES Final R esult HISTORICAL RESULTS * DIGITAL MAMMOGRAPHY (12/11/2013 11:01 AM CDT) Anatomical Region Laterality Modality Breast Mammography 12/11/2013 11:0 1 AM CDT Narrative 12/12/2013 12:15 AM CDT Vm Mammogram Performed by: LT Screening Mamm Bi Acc#: [id number] DATE OF EXAM: Dec 11 2013 CLINICAL [...] Performed by: LT Screening Mamm Bi Acc#: [id number] DATE OF EXAM: Dec 11 2013 CLINICAL [...] Advance Directives For more information, please contact: [phone] * Full Code (Latest Code Status on File) Date Activated Date Inactivated Comments 11/22/2023 6:25 PM 11/25/2023 11:09 PM * Full Code Date Activated Date Inactivated Comments 12/21/2022 5:34 PM 12/24/2022 8:16 PM * Full Code Date Activated Date Inactivated Comments 11/10/2022 4:25 PM 11/11/2022 3:51 PM * Full Code Date Activated Date Inactivated Comments 05/04/2022 1:38 PM 05/05/2022 6:47 PM Care Teams Sole Leather Cutting Machine Operator Relationship Specialty Start Date End Date Mariah Adams MD PCP - General Internal Medicine 08/19/20 Mitchell Zamarripa MD Referring Physician Rheumatology 03/11/22 Brit More NP Nurse Practitioner Cardiovascular Disease 03/11/22 Cliff Ronquillo NP [address] [place] [address] [address] [place] [address] Nurse Practitioner Nurse Practitioner 05/05/22 Dick Aguilar PA [address] [place] [address] [address] [place] [address] Physician Drop Board Worker Orthopedic Surgery 11/11/22 Gavin Sewell MD [address] [place] [address] [address] [place] [address] Surgeon Orthopedic Surgery 12/24/22
--- OUTSIDE RECORDS SUMMARY | 2024-11-08 12:48 | XMS_ITS | Encounter Summary ---
Author Organization [facility] Healthcare Address [address] [place] [address] Care Team Providers Care Computer Operations Analyst Name Role Phone Jose Cruz Ledezma Primary Care Provider [phone] Yg Lee MD Primary Care Provider + Mitchell Zamarripa MD Unavailable [phone] Brit More IMAGING TECHNOLOGIST Unavailable [phone] Cliff Ronquillo NP Unavailable [phone] Dick Aguilar Unavailable [phone] Gavin Sewell MD Unavailable [phone] Reason for Visit * Reason Onset Date Comments Scheduling Appointments 03/24/2020 Called f or DEXA appointment reminder Encounter Details Date Type Department Care Team (Late st Contact Info) Description 03/24/2020 Telephone [facility] [address] [place] [id number] [address] Hernandez RT Scheduling Appointments (Called for DEXA appointment reminder) Social History Tobacco Use Types Packs/Day Years Used Date Smoking Tobacco: Former Smokeless Tobacco: Never Alcohol Use Standard Drinks/Week Comments Yes 0 (1 standard drink = 0.6 oz pur e alcohol) occasional Comments No Sex and Gender Information Value Date Recorded Sex Assigned at Not on file Legal Sex Female 11:50 PM SOUND ENGINEER Gender Identity Not on file Sexual [...] COVID: Suspected 07/22/2024 07/22/2024 07/22/2024 9:25 AM SOUND ENGINEER documented as of this encounter Care Teams Computer Operations Analyst Relationship Specialty Start Date End Date Jose Cruz Ledezma PA [address] [place] [address] PCP - General 01/24/20 08/18/20 Yg Lee MD [address] [place] [address] PCP - General Internal Medicine 08/19/20 Mitchell Zamarripa MD [address] [place] [address] Referring Physician Rheumatology 03/11/22 Brit More NP [address] [place] [address] Nurse Practitioner Cardiovascular Disease 03/11/22 Cliff Ronquillo NP [address] [place] [address] [address] [place] [address] Nurse Practitioner Nurse Practitioner 05/05/22 Dick Aguilar PA [address] [place] [address] [address] [place] [address] Physician Teacher Dramatics Orthopedic Surgery 11/11/22 Gavin Sewell MD [address] [facility] [address] [facility] [address] [place] [address] Surgeon Orthopedic Surgery 12/24/22 documented as of this encounter
--- OUTSIDE RECORDS SUMMARY | 2024-11-08 12:48 | XMS_ITS | Data Portability ---
Author Organization [facility] Address [address] [place] [address] Care Team Providers Care Assisted Living Associate Name Role Phone JAM LEDEZMA Primary Care Provider [phone] Assessment No assessment recorded. Plan of Treatment Reminders Order Date Submit Date Provider Last Modified By Organization Details Last Modified Time Details Appointments None recorde d. Lab PTH (parath yroid hormone ), intact + calcium , serum or plasma 2019 020 bbertoglioma [facility], [address] [place] [address], [address], [place], [address], 0 18:10:55 unliste d lab - complia nce drug analysi s, ur 2019 020 REUBEN [facility], [address] [place] [address], [address], [place], [address], 0 15:09:11 PTH (parath yroid hormone ), intact + calcium , serum or plasma 2019 020 hspraggs [facility], [address] [facility], [address], [place], [address], 0 15:26:23 Referral orthope dic referra l 2019 020 [facility], [address] [facility], [place], [address], 0 14:14:57 oncolog ist referra l - ANABEL 2019 020 ssaterri Rivero MD, [address] [facility] , [address], [place], [address], 0 11:06:22 dermato logist referra l 2019 [email or web address] Not available 0 14:26:11 Procedures None recorde d. Surgeries None recorde d. Imaging NM, bone scan 2019 020 bbertoglioma [facility] (Radiology), [address] [facility] , [place], [address], 0 15:52:19 CT, lower leg, w/ contras t 2019 020 [facility] (Scheduling), [address] [facility], [place], [address], 0 15:02:33 XR, lumbar spine 2019 020 REUBEN [facility], [address] [facility] [place], [address], 0 14:17:01 Medication Orders calcito marlo (salmon ) 200 unit/ac tuation nasal spray 2019 020 INTERFACE [id number], [address], [place], [place], [id number], 0 15:02:19 acetami nophen 300 mg-code ine 30 mg tablet 2019 020 dturnerma [facility] #[id number], [address], [place], [place], [id number], 1 17:09:49 gabapen tin 100 mg capsule 2019 020 INTERFACE [facility][id number], [address], [place], [place], [id number], 0 12:02:47 Patient TargetsNo targets recorded. 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 Referral for C omplaining of a rash Referring Physician: Jam Ledezma [facility], Encounter Date: 02/20/2020 ANABEL Referring Physician: Jam Ledezma [facility], Encounter Date: 02/20/2020 Orthopedic Referral for Path ological fracture of right tibia Referring Physician: Jam Ledezma [facility], Encounter Date: 04/22/2020 Results Created Date Observation Date Name Description Value Unit Range Abnormal Flag Note LastModifiedBy Organization Detail LastModifiedTime 12/27/19 20 12/28/2019 CMP, serum or plasm a glucose 91 mg/dL 65-99 Not Available [facility] ([facility]) [address] [place], [address], 12/28/2019 07:08:47 12/27/1912/28/2019 CMP, serum or plasm a BUN 15 mg/dL 6-24 Not Available [facility] ([facility]) [address] [place], [address], 12/28/2019 07:08:47 12/27/1912/28/2019 CMP, serum or plasm a creatinine 0.80 mg/dL 0.57-1 .00 Not Available [facility] ([facility]) [address] [place], [address], 12/28/2019 07:08:47 12/27/1912/28/2019 CMP, serum or plasm a eGFR if nonafricn AM 82 mL/mi n/1.7 3 >59 Not Available [facility] ([facility]) [address] [place], [address], 12/28/2019 07:08:47 12/27/1912/2712/28/2019 CMP, serum or plasm a eGFR if africn AM 95 mL/mi n/1.7 3 >59 Not Available [facility] ([facility]) [address] [place], [address], 12/28/2019 07:08:47 12/27/19 20 12/28/2019 CMP, serum or plasm a BUN/creatini ne ratio 19 9-23 Not Available [facility] ([facility]) [address] [place], [address], 12/28/2019 07:08:47 12/27/1912/28/2019 CMP, serum or plasm a sodium 138 mmol/ L 134-14 4 Not Available [facility] ([facility]) [address] [place], [address], 12/28/2019 07:08:47 12/27/19 20 12/28/2019 CMP, serum or plasm a potassium 4.2 mmol/ L 3.5-5. 2 Not Available [facility] ([facility]) [address] [place], [address], 12/28/2019 07:08:47 12/27/19 20 12/28/2019 CMP, serum or plasm a chloride 98 mmol/ L 96-106 Not Available [facility] ([facility]) [address] [place], [address], 12/28/2019 07:08:47 12/27/1912/28/2019 CMP, serum or plasm a carbon dioxide, total 23 mmol/ L 20-29 Not Available [facility] ([facility]) [address] [place], [address], 12/28/2019 07:08:47 12/27/1912/28/2019 CMP, serum or plasm a calcium 10.1 mg/dL 8.7-10 .2 Not Available [facility] ([facility]) [address] [place], [address], 12/28/2019 07:08:47 12/27/19 20 12/28/2019 CMP, serum or plasm a protein, total 7.3 g/dL 6.0-8. 5 Not Available [facility] ([facility]) [address] [place], [address], 12/28/2019 07:08:47 12/27/1912/28/2019 CMP, serum or plasm a albumin 4.8 g/dL 3.8-4. 9 Not Available [facility] ([facility]) [address] [place], [address], 12/28/2019 07:08:47 12/27/1912/28/2019 CMP, serum or plasm a globulin, total 2.5 g/dL 1.5-4. 5 Not Available [facility] ([facility]) [address] [place], [address], 12/28/2019 07:08:47 12/27/1912/28/2019 CMP, serum or plasm a A/G ratio 1.9 1.2-2. 2 Not Available [facility] ([facility]) [address] [place], [address], 12/28/2019 07:08:47 12/27/1912/28/2019 CMP, serum or plasm a bilirubin, total 0.4 mg/dL 0.0-1. 2 Not Available [facility] ([facility]) [address] [place], [address], 12/28/2019 07:08:47 12/27/1912/28/2019 CMP, serum or plasm a alkaline phosphatase 114 IU/L 39-117 Not Available [facility]) [address] [place], [address], 12/28/2019 07:08:47 12/27/1912/28/2019 CMP, serum or plasm a AST (SGOT) 40 IU/L 0-40 Not Available [facility] ([facility]) [address], [place], [address], 12/28/2019 07:08:47 12/27/1912/28/2019 CMP, serum or plasm a ALT (SGPT) 29 IU/L 0-32 Not Available [facility] ([facility]) [address] [facility], [place], [address], 12/28/2019 07:08:47 12/27/19 20 12/28/2019 vitam in D, 25-hy droxy , total , serum vitamin D, 25-hydroxy 34.2 NG/mL 30.0-1 00.0 Vitam in D defic iency has been defin ed by the Insti tute of [facility] ine and an Endoc rine Socie ty pract ice guide line as a level of serum 25-OH vitam in D less than 20 ng/mL (1,2) . The Endoc rine Socie ty went on to furth er defin e vitam in D insuf ficie ncy as a level betwe en 21 and 29 ng/mL (2). 1. IOM (Inst it[facility] of [facility] ine). 2010. Melany ry refer ence kristina es for calci um and D. Zackary baum [place]: [facility] Press . 2. Patricia valdez MF, Jluis albert [place], [place] off-F errar i GARCIA, et al. Evalu ation , treat ment, and preve ntion of vitam in D defic iency : an Endoc rine Socie ty clini tessie pract ice guide line. JCEM. 2010; 96(7) :1911 -30. Not Available [facility] ([facility]) [address] [facility], [place], [address], 12/28/2019 07:08:48 02/11/2002/19/2020 drug scree n, urine [...] [place] [address] EXPEC JALYN ng/mg creat Morph ine 1924 EXPEC JALYN ng/mg creat Normo rphin e 572 EXPEC JALYN ng/mg creat [place] deine 1659 EXPEC JALYN ng/mg creat Sourc [...] expec jalyn metab olite of morph ine. [place] deine is an expec jalyn metab olite [...] Clobe tasol Ezeti mibe Fluti kelsie e Cologne chlor othia zide (Samantha nopri l-HCT Z) Cologne xychl oroqu ine Levot hyrox ine Lisin opril (Samantha nopri l-HCT Z) Lorat adine Nitro furan toin Omepr azole Ondan setro n Prava stati n Predn isone Rosuv astat in ===== ===== ===== ===== ===== ===== ===== ===== ===== ===== ===== ===== ===== === For clini tessie consu ltati on, pleas e call [phone]. ===== ===== ===== ===== ===== ===== ===== ===== ===== ===== ===== ===== ===== === Not Available [employer] [address] [facility], [place], [address], 02/19/2020 15:09:11 02/11/20 20 02/19/2020 drug scree n, urine pdf . Not Available [employer] [address] [facility], [place], [address], 02/19/2020 15:09:11 04/28/20 20 04/28/2020 PTH (para [...] - 65 < 8.6 Not Available [facility] ([facility]) [address] [place], [address], 04/29/2020 17:08:21 04/28/20 20 04/29/2020 PTH (para thyro id hormo ne), intac t + calci um, serum or plasm a calcium TNP mg/dL No serum gel recei dillon. Not Available [facility] ([facility]) [address] [place], [address], 04/29/2020 17:08:21 04/28/20 20 04/29/2020 PTH (para thyro id hormo ne), intac t + calci um, serum or plasm a PTH, intact 63 pg/mL 15-65 Not Available [facility] ([facility]) [address] [place], [address], 04/29/2020 17:08:21 04/28/20 20 04/29/2020 speci men statu s repor t specimen status report TNP No serum gel recei dillon. TEST: 81925 6 Calci um Panel : 82655 1 Not Available [facility] ([facility]) [address] [place], [address], 04/29/2020 17:08:22 04/30/2005/01/2020 TSH + free T4, serum TSH 4.230 uIU/m L 0.450- 4.500 Not Available [facility] ([facility]) [address] [place], [address], 05/01/2020 08:17:01 04/30/2005/01/2020 TSH + free T4, serum T4,free(dire ct) 1.18 NG/dL 0.82-1 .77 Not Available [facility] ([facility]) [address] [place], [address], 05/01/2020 08:17:01 04/30/2005/01/2020 CBC w/ auto diff WBC 5.2 x10e3 /uL 3.4-10 .8 Not Available [facility] ([facility]) [address] [facility], [place], [address], 05/01/2020 08:17:02 04/30/2005/01/2020 CBC w/ auto diff RBC 4.16 x10e6 /uL 3.77-5 .28 Not Available [facility] ([facility]) [address] [facility], [place], [address], 05/01/2020 08:17:02 04/30/2005/01/2020 CBC w/ auto diff hemoglobin 13.9 g/dL 11.1-1 5.9 Not Available [facility] ([facility]) [address] [facility], [place], [address], 05/01/2020 08:17:02 04/30/2005/01/2020 CBC w/ auto diff hematocrit 39.7 % 34.0-4 6.6 Not Available [facility] ([facility]) [address] [facility], [place], [address], 05/01/2020 08:17:02 04/30/2005/01/2020 CBC w/ auto diff MCV 95 fL 79-97 Not Available [facility] ([facility]) [address] [place], [address], 05/01/2020 08:17:02 04/30/2005/01/2020 CBC w/ auto diff MCH 33.4 pg 26.6-3 3.0 above high normal Not Available [facility] ([facility]) [address] [place], [address], 05/01/2020 08:17:02 04/30/2005/01/2020 CBC w/ auto diff MCHC 35.0 g/dL 31.5-3 5.7 Not Available [facility] ([facility]) [address] [facility], [place], [address], 05/01/2020 08:17:02 04/30/2005/01/2020 CBC w/ auto diff RDW 13.4 % 11.7-1 5.4 Not Available [facility] ([facility]) [address] [facility], [place], [address], 05/01/2020 08:17:02 04/30/2005/01/2020 CBC w/ auto diff platelets 296 x10e3 /uL 150-45 0 Not Available [facility] ([facility]) [address] [facility], [place], [address], 05/01/2020 08:17:02 04/30/2005/01/2020 CBC w/ auto diff neutrophils 72 % not estab. Not Available [facility] ([facility]) [address] [facility], [place], [address], 05/01/2020 08:17:02 04/30/2005/01/2020 CBC w/ auto diff lymphs 14 % not estab. Not Available [facility] ([facility]) [address] [facility], [place], [address], 05/01/2020 08:17:02 04/30/2005/01/2020 CBC w/ auto diff monocytes 7 % not estab. Not Available [facility] ([facility]) [address] [facility], [place], [address], 05/01/2020 08:17:02 04/30/2005/01/2020 CBC w/ auto diff eos 4 % not estab. Not Available [facility] ([facility]) [address] [facility], [place], [address], 05/01/2020 08:17:02 04/30/2005/01/2020 CBC w/ auto diff basos 2 % not estab. Not Available [facility] ([facility]) [address] [facility], [place], [address], 05/01/2020 08:17:02 04/30/2005/01/2020 CBC w/ auto diff immature cells CLOTHES IRONER Not Available [facility] ([facility]) [address] [place], [address], 05/01/2020 08:17:02 04/30/2005/01/2020 CBC w/ auto diff neutrophils (absolute) 3.8 x10e3 /uL 1.4-7. 0 Not Available [facility] ([facility]) [address] [place], [address], 05/01/2020 08:17:02 04/30/2005/01/2020 CBC w/ auto diff lymphs (absolute) 0.7 x10e3 /uL 0.7-3. 1 Not Available [facility] ([facility]) [address] [place], [address], 05/01/2020 08:17:02 04/30/2005/01/2020 CBC w/ auto diff monocytes(ab solute) 0.4 x10e3 /uL 0.1-0. 9 Not Available [facility] ([facility]) [address] [place], [address], 05/01/2020 08:17:02 04/30/2005/01/2020 CBC w/ auto diff eos (absolute) 0.2 x10e3 /uL 0.0-0. 4 Not Available [facility] ([facility]) [address] [place], [address], 05/01/2020 08:17:02 04/30/2005/01/2020 CBC w/ auto diff baso (absolute) 0.1 x10e3 /uL 0.0-0. 2 Not Available [facility] ([facility]) [address] [place], [address], 05/01/2020 08:17:02 04/30/2005/01/2020 CBC w/ auto diff immature granulocytes 1 % not estab. Not Available [facility] ([facility]) [address] [facility] [place], [address], 05/01/2020 08:17:02 04/30/2005/01/2020 CBC w/ auto diff immature grans (abs) 0.0 x10e3 /uL 0.0-0. 1 Not Available [facility] ([facility]) [address] [facility], [place], [address], 05/01/2020 08:17:02 04/30/2005/01/2020 CBC w/ auto diff NRBC CLOTHES IRONER Not Available [facility] ([facility]) [address] [facility] [place], [address], 05/01/2020 08:17:02 04/30/2005/01/2020 CBC w/ auto diff hematology comments: CLOTHES IRONER Not Available [facility] ([facility]) [address] [facility], [place], [address], 05/01/2020 08:17:02 04/30/2005/01/2020 CMP, serum or plasm a glucose 109 mg/dL 65-99 above high normal Not Available [facility] ([facility]) [address] [place], [address], 05/01/2020 08:17:03 04/30/2005/01/2020 CMP, serum or plasm a BUN 12 mg/dL 6-24 Not Available [facility] ([facility]) [address] [place], [address], 05/01/2020 08:17:03 04/30/2005/01/2020 CMP, serum or plasm a creatinine 0.65 mg/dL 0.57-1 .00 Not Available [facility] ([facility]) [address] [place], [address], 05/01/2020 08:17:03 04/30/2005/01/2020 CMP, serum or plasm a eGFR if nonafricn AM 99 mL/mi n/1.7 3 >59 Not Available [facility] ([facility]) [address] [facility] [place], [address], 05/01/2020 08:17:03 04/30/20 20 05/01/2020 CMP, serum or plasm a eGFR if africn AM 114 mL/mi n/1.7 3 >59 Not Available [facility] ([facility]) [address] [facility] [place], [address], 05/01/2020 08:17:03 04/30/20 20 05/01/2020 CMP, serum or plasm a BUN/creatini ne ratio 18 9-23 Not Available [facility] ([facility]) [address] [place], [address], 05/01/2020 08:17:03 04/30/2005/01/2020 CMP, serum or plasm a sodium 139 mmol/ L 134-14 4 Not Available [facility] ([facility]) [address] [place], [address], 05/01/2020 08:17:03 04/30/2005/01/2020 CMP, serum or plasm a potassium 4.4 mmol/ L 3.5-5. 2 Not Available [facility] ([facility]) [address] [place], [address], 05/01/2020 08:17:03 04/30/2005/01/2020 CMP, serum or plasm a chloride 96 mmol/ L 96-106 Not Available [facility] ([facility]) [address] [place], [address], 05/01/2020 08:17:03 04/30/2005/01/2020 CMP, serum or plasm a carbon dioxide, total 27 mmol/ L 20-29 Not Available [facility] ([facility]) [address] [place], [address], 05/01/2020 08:17:03 04/30/2005/01/2020 CMP, serum or plasm a calcium 10.0 mg/dL 8.7-10 .2 Not Available [facility] ([facility]) [address] [place], [address], 05/01/2020 08:17:03 04/30/2005/01/2020 CMP, serum or plasm a protein, total 7.0 g/dL 6.0-8. 5 Not Available [facility] ([facility]) [address] [place], [address], 05/01/2020 08:17:03 04/30/2005/01/2020 CMP, serum or plasm a albumin 4.6 g/dL 3.8-4. 9 Not Available [facility] ([facility]) [address] [place], [address], 05/01/2020 08:17:03 04/30/2005/01/2020 CMP, serum or plasm a globulin, total 2.4 g/dL 1.5-4. 5 Not Available [facility] ([facility]) [address] [place], [address], 05/01/2020 08:17:03 04/30/2005/01/2020 CMP, serum or plasm a A/G ratio 1.9 1.2-2. 2 Not Available [facility] ([facility]) [address] [place], [address], 05/01/2020 08:17:03 04/30/2005/01/2020 CMP, serum or plasm a bilirubin, total 0.5 mg/dL 0.0-1. 2 Not Available [facility] ([facility]) [address] [place], [address], 05/01/2020 08:17:03 04/30/2005/01/2020 CMP, serum or plasm a alkaline phosphatase 231 IU/L 39-117 above high normal Not Available [facility] ([facility]) [address] [facility], [place], [address], 05/01/2020 08:17:03 04/30/20 20 05/01/2020 CMP, serum or plasm a AST (SGOT) 83 IU/L 0-40 above high normal Not Available [facility] ([facility]) [address] [facility], [place], [address], 05/01/2020 08:17:03 04/30/20 20 05/01/2020 CMP, serum or plasm a ALT (SGPT) 63 IU/L 0-32 above high normal Not Available [facility] ([facility]) [address] [facility], [place], [address], 05/01/2020 08:17:03 04/30/20 20 04/30/2020 urina lysis , dipst ick Leukocytes Negati ve Not Available In-Office Order Internal Use Only DO Not Attach Compendium DO Not Attach Compendium, Do Not Delete/merge, [id number] 04/30/2020 11:03:06 04/30/2004/30/2020 urina lysis , dipst ick Nitrite negati ve Not Available In-Office Order Internal Use Only DO Not Attach Compendium DO Not Attach Compendium, Do Not Delete/merge, [id number] 04/30/2020 11:03:06 04/30/2004/30/2020 urina lysis , dipst ick Urobilinogen .2 Not Available In-Of fice Order Internal Use Only DO Not Attach Compendium DO Not Attach Compendium, Do Not Delete/merge, [id number] 04/30/2020 11:03:06 04/30/2004/30/2020 urina lysis , dipst ick Protein Negati ve Not Available In-Office Order Internal Use Only DO Not Attach Compendium DO Not Attach Compendium, Do Not Delete/merge, [id number] 04/30/2020 11:03:06 04/30/20 20 04/30/2020 urina lysis , dipst ick pH 6.5 Not Available In-Office Order Internal Use Only DO Not Attach Compendium DO Not Attach Compendium, Do Not Delete/merge, [id number] 04/30/2020 11:03:06 04/30/20 20 04/30/2020 urina lysis , dipst ick Blood Negati ve Not Available In-Office Order Internal Use Only DO Not Attach Compendium DO Not Attach Compendium, Do Not Delete/merge, [id number] 04/30/2020 11:03:06 04/30/20 20 04/30/2020 urina lysis , dipst ick Specific Mcwilliams 1.020 Not Available In-Off ice Order Internal [...] r spine No observ ation record ed. [address], [place], [address], 02/07/2020 17:22:18 02/19/20 20 02/19/2020 NM, bone scan No observ ation record ed. ssander [facility] [address] [facility] [place], [address], 02/19/2020 17:52:46 03/25/20 20 03/25/2020 bone densi ty No observ ation record ed. [facility] [address] [facility] [place], [address], 03/28/2020 12:17:03 09/12/19 21 09/10/2020 cardi ac stres s test No observ ation record ed. [facility] [address], [place], [address], 09/12/2020 16:33:08 12/18/19 21 12/09/2020 pulmo nary funct ion test* No observ ation record ed. [facility] [address], [place], [address], 12/17/2020 15:14:10 01/03/20 21 01/02/2021 US, duple x, renal arter y No observ ation record ed. [facility] [address], [place], [address], 01/02/2021 14:47:22 01/03/20 21 01/02/2021 stres s echoc ardio gram No observ ation record ed. [facility] [address], [place], [address], 01/02/2021 14:47:41 11/28/19 24 11/25/2023 US, echoc ardio gram, trans esoph ageal No observ ation record ed. [facility] [address] [facility] [address], [place], [address], 12/08/2023 11:32:40 01/16/20 24 11/23/2023 CT, angio gram, chest , w/ contr ast No observ ation record ed. mmetias [address] [place], [address], 01/16/2024 15:25:06 Result Notes None recorded. Problems Name Problem SNOMED Code Status Onset Date Resolution Date Notes Provider Name and Address Organization Details Recorded Time Drug therapy finding 084540464 Active 2015 CHIO Niño, [place] - [facility] 0 11:49:27 Enzyme level - finding 203681816 Active 2017 CHIO Niño[place] [facility] 0 11:49:27 Fibromyalgia 422207431 Active 2011 Kallie Sloan [place] null, [place] [facility] 0 11:49:27 Hypertensive disorder 02937254 Active 2012 Kallie S[place] [facility] 0 11:49:27 Osteopenia 027670637 Active 2011 Kallie S[place] [facility] 0 11:49:27 Rheumatoid arthritis 42927763 Active 2017 Kallie S[place] [facility] 0 11:49:27 Problem Notes None recorded. Procedures Surgical History Date Name Laterality Status Provider Name and Address Organization Details Recorded Time hysterectomy completed Anabela Blanc [place] - [facility] 09/06/2019 12:01:29 Imaging Results Imaging Date Name Status LastModified by Organization Details LastModified Time 01/28/2020 XR, lumbar spine completed milly Tye [address] [place], [address], 02/07/2020 17:22:18 02/19/2020 NM, [facility] [address] [place], [address], 02/19/2020 17:52:46 03/25/2020 bone density completed [facility] [address] [place], [address], 03/28/2020 12:17:03 09/10/2020 cardiac stress test completed [facility] ([facility]) [address] [facility], [place], [address], 09/12/2020 16:33:08 12/09/2020 pulmonary function test* completed [facility] ([facility]) [address] [facility], [place], [address], 12/17/2020 15:14:10 01/02/2021 US, duplex, renal artery completed [facility] ([facility]) [address] [facility], [place], [address], 01/02/2021 14:47:22 01/02/2021 stress echocardiogram completed [facility] ([facility]) [address] [facility], [place], [address], 01/02/2021 14:47:41 11/25/2023 US, echocardiogram, transesophageal completed [facility] [address] [facility] [place], [address], 12/08/2023 11:32:40 11/23/2023 CT, angiogram, chest, w/ contrast completed [facility] [address] [facility] [place], [address], 01/16/2024 15:25:06 Procedure Notes None recorded. Medical Equipment None Reported. Allergies Allergen ID Allergen Name Allergen Category Reaction Reaction Severity Criticality Documentation Date Start Date Code Code System Note Provider Name and Address Organization Details Recorded Time 161394 Substance with sulfonami de structure and antibacte rial mechanism of action (substanc e) medicatio n hives Not available Not available 09/06/2019 18705 8003 SNOMED Not Available Not Available Not Available 925230 Cipro medicatio n Not available Not available Not available 09/06/201925971 3 RxNorm Not Available Not Available Not Available 469678 ciproflox acin medicatio n myalgias (muscle pain) [...] DateTime 01/25/2020 157.48 cm Kallie Sloan MA [facility] 01/25/20 20 11:49:06 Date Recorded Body height Provider Name an d Address Organization Details Last Updated DateTime 01/30/2020 157.48 cm Anabela Blanc MA [facility] 01/30/2020 14:32:47 Date Recorded Body height Body mass index (BMI) Body weight Body temperature Oxygen saturation Oxygen saturation in Arterial blood by Pulse oximetry Heart rate Systolic blood pressure Diastolic blood pressure Provider Name and Address Organization Details Last Updated DateTime 0 157.48 cm 31.1 kg/m2 42643.7 g 98.1 [degF] 93 % 93 % 83 /min 108 mm[Hg] 82 mm[Hg] Anabela Blanc MA [facility] 0 10:40:52 Date Recorded Body height Body mass index (BMI) Body weight Body temperature Oxygen saturation Oxygen saturation in Arterial blood by Pulse oximetry Heart rate Systolic blood pressure Diastolic blood pressure Provider Name and Address Organization Details Last Updated DateTime 0 157.48 cm 31.3 kg/m2 68021 g 98 [degF] 98 % 98 % 80 /min 142 mm[Hg] 90 mm[Hg] Kallie Sloan MA [facility] 0 14:59:34 Social History Question Answer Notes LastModified by Organizat ion Details LastModified Time Tobacco Smoking Status Former Smoker 2012 Anabela Blanc MA null, [facility] 09/06/2019 12:01:14 In The 14 Days Before Symptom Onset, Have You Had Close Contact With A Laboratory-confir med COVID-19 While That Case Was Ill? No Information not available 11/26/2019 If Patient Spent Time In [facility] - Does The Patient Live In [facility]? No Information not available 11/26/2019 In The 14 Days Before Symptom Onset, Have You Had Close Contact With A Person Who Is Under Investigation For COVID-19 While That Person Was Ill? No Information not available 11/26/2019 In The 14 Days Before Symptom Onset, Did The Patient Spend Time In [facility]? No Information not available 11/26/2019 Have [...] Skin Problems Y Anemia N Heart Attack (MD) N Diabetes N Seizures/Epilepsy N Asthma N Allergies Y Substance Abuse N Hepatitis N Heart Failure N Osteoporosis Y Gynecological HistoryNo gynecological history recorded. Obstetrics History GPAL:G 0 P 0 0 0 0 Past Encounters Encounter ID Performer Location Encounter Start Date Encounter Closed Date Diagnosis/Indication Diagnosis SNOMED-CT Code Diagnosis ICD10 Code Diagnosis Note [id number] Anabela Blanc MA [facility] [address] [place] [address] 09/06/2019 11:41:44 09/07/2019 16:55:26 Chronic depression 787982033 F34.1 Long-term drug therapy 254740977 Z79.899 Essential hypertension 19340094 I10 [id number] Jam Ledezma PA-C [facility] [address] [place] [address] 09/13/2019 11:39:42 09/13/2019 12:10:30 Essential hypertension 90620243 I10 [id number] Jam Ledezma PA-C [facility] [address] [place] [address] 11/26/2019 10:49:30 11/26/2019 12:28:39 Essential hypertension 75732516 I10 Mitral valve prolapse 40 8196959 I34.1 History of transient ischemic attack 566132477 Z86.73 Seasonal a llergic rhinitis 532873945 J30.2 [id number] Jam Ledezma PA-C [facility] [address] [place] [address] 12/10/2019 10:48:06 12/12/2019 11:23:50 Essential hypertension 55988102 I10 Chronic depression 84729 0009 F34.1 Nausea and vomiting 1692 1999 R11.2 [id number] Jam Ledezma PA-C [facility] [address] [place] [address] 12/11/2019 13:09:52 12/12/2019 11:45:12 Mixed hyperlipidemia 722367905 E78.2 [id number] Jam Ledezma PA-C [facility] [address] [place] [address] 12/27/2019 11:02:54 12/28/2019 08:34:57 Idiopathic hypercalcemia 762362777 E83.52 Seasonal a llergic rhinitis 613124483 J30.2 [id number] Jam Ledezma PA-C [facility] [address] [place] [address] 01/25/2020 10:10:00 01/28/2020 08:04:28 Lumbar radiculopathy 547823992 M54.16 [id number] KELLEN [facility] [address] [place] [address] 01/30/2020 11:07:31 01/31/2020 07:58:24 Idiopathic hypercalcemia 033964008 E83.52 Stress fra cture of tibia 238991973 M84.361A Osteoporosis 73062329 M8 1.0 [id number] Anabela Blanc MA [facility] [address] [place] [address] 02/11/2020 10:34:29 02/11/2020 15:10:24 Pain in right lower limb 246900564 M79.604 Long-term drug therapy 682938710 Z79.186 [id number] Jam Ledezma PA-C [facility] [address] [place] [address] 02/20/2020 14:44:57 02/20/2020 15:38:07 Pathological fracture of right tibia 1899917026 2792655 M84.461G Complaining of a rash 16 8244614 R21 [id number] Jam Ledezma PA-C [facility] [address] [place] [address] 04/22/2020 09:33:20 04/23/2020 12:40:11 Osteopenia 052553314 M85.88 Pathologic al fracture of right tibia 6060742954 4396709 M84.461G Health Concerns Section Related Observation LastModified by Organization Detai ls LastModified Time None Recorded Concern Status LastModified by Organization Details LastModified Time None Recorded Advance Directives Directive None Recorded Payers Encounter Date Sequence Insurance Name Policy Number Policy Bright Covered Member ID Bright Member ID Guarantor Name 01/25/2020 1 [facility] PRIOR TO 02/26/2021 (MEDICAID REPLACEMENT - HMO) Antoinette Da Silva [id number] Antoinette Da Silva 01/30/2020 1 [facility] PRIOR TO 02/26/2021 (MEDICAID REPLACEMENT - HMO) Antoinette Da Silva [id number] Antoinette Da Silva 02/11/2020 1 [facility] PRIOR TO 02/26/2021 (MEDICAID REPLACEMENT - HMO) Antoinette Da Silva [id number] Antoinette Da Silva 02/20/2020 1 [facility] PRIOR TO 02/26/2021 (MEDICAID REPLACEMENT - HMO) Antoinette Da Silva [id number] Antoinette Da Silva 04/22/2020 1 [facility] PRIOR TO 02/26/2021 (MEDICAID REPLACEMENT - HMO) Antoinette Da Silva [id number] Antoinette Da Silva Notes Date Note Type [...] osteoporosis Jam Ledezma PA-C Attn: Accounting[address] [place], [address], [facility] 01/25/2020 12:05:40 01/30/2020 text/html questions re bpressure...162/106 [...] osteoporosis... Jam Ledezma PA-C Attn: Accounting[address] [place], [address], [facility] 01/30/2020 15:08:21 02/11/2020 text/html started january 17..pain in medial lower rt leg..no known injury. went to ER xrays were done. findings of an old healed fracture that the patient denies ever having broken. pain has not improved may have worsened. Anabela Blanc MA [facility], [facility] 02/11/2020 11:25:00 02/20/2020 text/html bone scan reviewed..rib with uptake and rt tib fib with intense uptake they say likely posttraumatic but she denies injury. now skin on forearms are red and that is pruritic not painful Jam Ledezma PA-C Attn: Accounting[address] [place], [address], [facility] 02/20/2020 15:32:42 04/22/2020 text/html follow up on leg fractures that dont belong... Jam Ledezma PA-C Attn: Accounting[address] [facility], [place], [address], [facility] 04/22/2020 17:56:09 OBGyn Episode No OBEpisode recorded.
--- OUTSIDE RECORDS SUMMARY | 2024-11-08 12:48 | XMS_ITS | Clinical Summary ---
Author Organization [facility] Address [address] [place] [address] Phone Care Team Providers Care Pattern Carrier Name Role Phone JAM MCDONNELL PA-C Primary Care Provider [phone] Reason for Visit and Chief Complaint ECHOCARDIOGRAM [...] Subscriber Relationship Effect cyn Dates 1 - [place] [employer] MED[employer] ADVANTAGE [id number] NIGHAT DELANEY Self Clinical Notes Includes: Clinical Notes from this encounter No Clinical Notes Recorded
--- OUTSIDE RECORDS SUMMARY | 2024-11-08 12:48 | XMS_ITS | Clinical Summary ---
Author Organization [facility] Address [address] [place] [address] Phone Care Team Providers Care Supplies Packer Name Role Phone JAM MCDONNELL PA-C Primary Care Provider [phone] Reason for Visit and Chief Complaint HEART [...] Diagnosis HEART CENTER FOLLOW UP TIFFANY HOWARD [facility]- 3 1:47PM 2:40PM Insurance Includes: Active Insurance Policies Plan Name Member ID Group # Subscriber Relationship Effect cyn Dates 1 - [place] [employer] MEDICARE ADVANTAGE [id number] NIGHAT DELANEY Self Clinical Notes Includes: Clinical Notes from this encounter No Clinical Notes Recorded
--- OUTSIDE RECORDS SUMMARY | 2024-11-08 12:48 | XMS_ITS | Encounter Summary ---
Author Organization [facility] Address [address] [place] [address] Care Team Providers Care Manager In Training Name Role Phone Yg Lee MD Primary Care Provider + Mitchell Zamarripa MD Unavailable [phone] Brit More NP Unavailable [phone] Cliff Ronquillo NP Unavailable [phone] Dick Aguilar Unavailable [phone] Gavin Sewell MD Unavailable [phone] Encounter Details Date Type Department Care Team (Late st Contact Info) Description 12/14/2021 Telephone [facility] [address] [place] [address] Fariha Hampton, RT Social History Tobacco Use Types Packs/Day Years Used Date Smoking Tobacco: Former Smokeless Tobacco: Never Alcohol Use Standard Drinks/Week Comments Yes 0 (1 standard drink = 0.6 oz pur e alcohol) occasional Comments No Sex and Gender Information Value Date Recorded Sex Assigned at Not on file Legal Sex Female 11:50 PM [employer] Gender Identity Not on file Sexual Orientation [...] COVID: Suspected 07/22/2024 07/22/2024 07/22/2024 9:25 AM [employer] documented as of this encounter Care Teams Manager In Training Relationship Specialty Start Date End Date Yg Lee MD PCP - General Internal Medicine 08/19/20 Mitchell Zamarripa MD Referring Physician Rheumatology 03/11/22 Brit More NP Nurse Practitioner Cardiovascular Disease 03/11/22 Cliff Ronquillo NP [address] [place] [address] [address] [facility] [place] [address] Nurse Practitioner Nurse Practitioner 05/05/22 Dick Aguilar PA [address] [place] [address] DR [facility] [place] [address] Physician Manufacturing Project Engineer Orthopedic Surgery 11/11/22 Gvain Sewell MD [address] [place] [address] DR CARLOS QUINTERO [address] [place] [address] Surgeon Orthopedic Surgery 12/24/22 documented as of this encounter
--- OUTSIDE RECORDS SUMMARY | 2024-11-08 12:53 | XMS_ITS ---
Author Organization [facility] Address [address] [place] [address] Phone Care Team Providers Care Chief Drafter Name Role Phone JAM MCDONNELL PA-C Primary Care Provider [phone] Plan of Treatment No Plan of Treatment [...] On 07/08/2010 5:57PM By ALVIN BASS ; [facility] Premarin 1.25 MG OR TABS 09/02/2009 - 08/28/2010 Provi anastasia: Diagnosis: Last Documented On 11/11/2009 9:36AM By BONNIE MORALES ; [facility] Premarin 1.25 MG OR TABS 07/23/2008 - 07/18/2009 Provi anastasia: Diagnosis: Last Documented On 11/11/2009 9:37AM By BONNIE MORALES ; [facility] Amoxicillin 500 MG OR TABS 07/03/2007 - 07/13/2007 Pro vider: Diagnosis: Last Documented On 11/11/2009 9:38AM By BONNIE MORALES ; [facility] Premarin 1.25 MG OR TABS 07/05/2006 - 06/30/2007 Provi anastasia: Diagnosis: Last Documented On 11/11/2009 9:39AM By BONNIE MORALES ; [facility] Premarin 1.25 MG OR TABS 08/27/2005 - 07/23/2006 Provi anastasia: Diagnosis: Last Documented On 11/11/2009 9:40AM By BONNIE MORALES ; [facility] Medications Administered Includes: Administered Medications in patient's chart No Administered Medications Recorded Results Includes: Results from 11/09/2023 through 11/08/2024 No Results Recorded For Specified Dates History of Present Illness History of Present Illness not supported for this document type No History of Present Illness Recorded Social History Description Last Updated 11/11/2009 Last Documented On 0 9:43AM ; [facility] Exercise frequency was three times/week 11/11/2009 Last Documented On 0 9:43AM ; [facility] Exercising regularly 11/11/2009 Last Documented On 0 9:43AM ; [facility] Sexually active 11/11/2009 Last Documented On 0 9:43AM ; [facility] Sexually active with 1 partners in the l ast year 11/11/2009 Last Documented On 0 9:43AM ; [facility] Smoking Status Unknown Procedures and Surgical History Includes: Procedures from 11/09/2023 through 11/08/2024 Procedures Code Diagnosis Performing Provider Service Location Service Date CLINIC FACILITY FEE (Signi/Sep Eval & Man) G0463 Nonrheumatic mitral (valve) insufficiency, Paroxysmal atrial fibrillation, Obstructive sleep apnea (adult) (pediatric), Essential (primary) hypertension [facility] 12/13/2023 Last Documented On 4 2:24PM ; [facility] CLINIC FACILITY FEE (Signi/Sep Eval & Man) 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, Sleep apnea, unspecified, Supraventricular tachycardia, unspecified [facility] 11/14/2023 Last Documented On 4 12:05PM ; [facility] Medical History Includes: Medical History in patient's chart Description Last Updated HYSTERECTOMY ~BTL 11/11/2009 Last Documented On 0 9:43AM ; [facility] 2 living children 11/11/2009 Last Documented On 0 9:43AM ; [facility] A mammogram was performed 11/11/2009 Last Documented On 0 9:43AM ; [facility] A Pap smear was performed 11/11/2009 Last Documented On 0 9:43AM ; [facility] weight: was 7.4 lbs 11/11/2009 Last Documented On 0 9:43AM ; [facility] Breast problems 11/11/2009 Last Documented On 0 9:43AM ; [facility] Delivery date 1983 11/11/2009 Last Documented On 0 9:43AM ; [facility] Duration of labor: was six hr 11/11/2009 Last Documented On 0 9:43AM ; [facility] Gestational age: was 40 weeks 11/11/2009 Last Documented On 0 9:43AM ; [facility] 2 11/11/2009 Last Documented On 0 9:43AM ; [facility] History of the 2nd : 11/11/2009 Last Documented On 0 9:43AM ; [facility] Last mammogram date: 07/19/08 11/11/2009 Last Documented On 0 9:43AM ; [facility] Last pap smear date 200711/11/2009 Last Documented On 0 9:43AM ; [facility] Oral contraceptives 11/11/2009 Last Documented On 0 9:43AM ; [facility] Status post tubal ligation 11/11/2009 Last Documented On 0 9:43AM ; [facility] Family History Includes: Family History in patient's chart Description Last Updated Family history of Cancer 11/11/2009 Last Documented On 0 9:43AM ; [facility] Family history of thyroid disease 2009 Last Documented On 0 9:43AM ; [facility] Family medical history of high blood pre ssure 11/11/2009 Last Documented On 0 9:43AM ; [facility] Review of Systems Review of [...] HOSPITAL FOLLOW UP EXAM TIFFANY SAUCEDO ANP [facility]- 4 12:43PM 1:47PM HEART CENTER CHECK UP TIFFANY HOWARD [facility]- 4 10:58AM 11:28AM Insurance Includes: Active Insurance Policies Plan Name Member ID Group # Subscriber Relationship Effect cyn Dates 1 - [place] [employer]VANTAGE [id number] NIGHAT Guevara Clinical Notes Includes: Signed Clinical Notes starting from 09/17/2022 No Clinical Notes Recorded
--- OUTSIDE RECORDS SUMMARY | 2024-11-08 12:53 | XMS_ITS | Clinical Summary ---
Author Organization [facility] Address [address] [place] [address] Phone Care Team Providers Care Occupational Therapy Assistant Name Role Phone JAM MCDONNELL PA-C Primary Care Provider [phone] Reason for Visit and Chief Complaint HOSPITAL [...] (adult) (pediatric), Essential (primary) hypertension TIFFANY Chaudhari [facility] 12/13/2023 Last Documented On 4 2:24PM ; [facility] Medical History Includes: Medical History [...] Diagnosis HOSPITAL FOLLOW UP EXAM [facility]FFANY SAUCEDO [facility]- 4 12:43PM 1:47PM Insurance Includes: Active Insurance Policies Plan Name Member ID Group # Subscriber Relationship Effect cyn Dates 1 - [place] ADVANTAGE [id number] NIGHAT DELANEY Self Clinical Notes Includes: Clinical Notes from this encounter No Clinical Notes Recorded
--- OUTSIDE RECORDS SUMMARY | 2024-11-08 12:53 | XMS_ITS | Clinical Summary ---
Author Organization [facility] Address [address] [place] [address] Phone Care Team Providers Care Spring Upholsterer Name Role Phone JAM MCDONNELL PA-C Primary Care Provider [phone] Reason for Visit and Chief Complaint HEART [...] apnea, unspecified, Supraventricular tachycardia, unspecified TIFFANY HOWARD [facility] 11/14/2023 Last Documented On 4 12:05PM ; [facility] Medical History Includes: Medical History addressed during [...] Diagnosis HEART CENTER CHECK UP TIFFANY HOWARD [facility] 4 10:58AM 11:28AM Insurance Includes: Active Insurance Policies Plan Name Member ID Group # Subscriber Relationship Effect cyn Dates 1 - [place] [place] ADVANTAGE [id number] NIGHAT DELANEY Self Clinical Notes Includes: Clinical Notes from this encounter No Clinical Notes Recorded
--- OUTSIDE RECORDS SUMMARY | 2024-11-08 12:53 | XMS_ITS ---
Care Plan - [facility] Created on: November 08, 2024 NIGHAT DELANEY : 1960 Sex: Female Author Organization [facility] Address [address] [place] [address] Phone Care Team Providers Care Loom Tuner Name Role Phone JAM MCDONNELL PA-C Primary Care Provider [phone]
--- OUTSIDE RECORDS SUMMARY | 2024-11-08 12:53 | XMS_ITS | Clinical Summary ---
Author Organization [facility] Address [address] [place] [address] Phone Care Team Providers Care Ross Carrier Driver Name Role Phone JAM MCDONNELL PA-C Primary Care Provider [phone] Reason for Visit and Chief Complaint HEART [...] Diagnosis HEART CENTER FOLLOW UP TIFFANY HOWARD [facility]- 3 1:47PM 2:40PM Insurance Includes: Active Insurance Policies Plan Name Member ID Group # Subscriber Relationship Effect cyn Dates 1 - [place] [employer] MEDICARE ADVANTAGE [id number] NIGHAT DELANEY Self Clinical Notes Includes: Clinical Notes from this encounter No Clinical Notes Recorded
--- OUTSIDE RECORDS SUMMARY | 2024-11-08 12:54 | XMS_ITS | Clinical Summary ---
Author Organization [facility] Address [address] [place] [address] Phone Care Team Providers Care Mechanical Project Engineer Name Role Phone JAM MCDONNELL PA-C Primary Care Provider [phone] Reason for Visit and Chief Complaint LEXISCAN [...] Time Diagnosis LEXISCAN CARDIOLITE ELTON GROVER MD [facility] 08/02/20 23 9:30AM 11:24AM Insurance Includes: Active Insurance Policies Plan Name Member ID Group # Subscriber Relationship Effect cyn Dates 1 - [place] ADVANTAGE [id number] NIGHAT DELANEY Self Clinical Notes Includes: Clinical Notes from this encounter No Clinical Notes Recorded
--- OUTSIDE RECORDS SUMMARY | 2024-11-08 12:54 | XMS_ITS | Clinical Summary ---
Author Organization [facility] Address [address] [place] [address] Phone Care Team Providers Care Recreational Therapy Aide Name Role Phone JAM MCDONNELL PA-C Primary Care Provider [phone] Reason for Visit and Chief Complaint ECHOCARDIOGRAM [...] Check-Out Time Diagnosis ECHOCARDIOGRAM ELTON GROVER MD [facility] 08/02/20 23 8:35AM 9:29AM Insurance Includes: Active Insurance Policies Plan Name Member ID Group # Subscriber Relationship Effect cyn Dates 1 - [place] [employer] MEDICARE ADVANTAGE [id number] NIGHAT DELANEY Self Clinical Notes Includes: Clinical Notes from this encounter No Clinical Notes Recorded
== END 2024-11-08 12:15 | disposition home or self-care (01) ==
PROVIDERS: Emergency Provider Nurse Practitioner; PCP Internal Medicine
DX: J20.9 Acute bronchitis, unspecified (principal); R91.8 Other nonspecific abnormal finding of lung field; I10 Essential (primary) hypertension; F17.210 Nicotine dependence, cigarettes, uncomplicated
CPT/HCPCS: 71046; 99213; G0463

== ENCOUNTER 2024-11-19 13:00 | Outpatient (CLI) | payer OTHER, SELFPAY ==
--- NOTE | ~2024-11-19 | XR_ITS ---
EXAMINATION: XR wrist RT min 3V DATE: 11/19/2024 13:07 INDICATION: Right radius and ulna fractures. TECHNIQUE: 3 views of right wrist were obtained. COMPARISON: Right wrist radiographs 11/05/2024, , right forearm radiographs 10/04/2024 FINDINGS: There is a comminuted fracture of distal radial diaphysis and metaphysis with volar plate a nd screws in abnormal orientation with some loosened screws. At the distal radial diaphysis, the dist al fracture fragment demonstrates 2 shaft widths ulnar displacement and 9 mm shortening. There is a c omminuted, predominantly transverse fracture of distal ulnar diaphysis. The main distal fracture frag ment demonstrates 5 mm palmar displacement, one half shaft width ulnar displacement, 13 degrees ulnar angulation, and 7 degrees dorsal angulation. There is a plate with screws with loosening of multiple screws. There is dislocation of distal radioulnar joint with heterotopic ossification in the area of the joint. 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 IMPRESSION: 1. Comminuted fractures of radius and ulna with failed internal fixation. Reviewed, dictated and finalized at location A.
--- OUTSIDE RECORDS SUMMARY | 2024-11-19 14:48 | XMS_ITS | Clinical Summary ---
Author Organization [facility] Address [address] [place] [address] Care Team Providers Care Rubber Cutter Name Role Phone Shandra Ruffin Malcolm WISDOM-SENIOR IT ENGINEER Primary Care Provider Source Comments [facility],non-owned Affiliates and Associated Physician Practices is amultiple site organization consisting of ambulatory clinics and hospital sitesin [place], [place], [place] and [place]. This disclosure is being madepursuant to the Care Everywhere program and may not contain all information available regarding this patient. Last updated 18.[facility] Allergies Active Allergy Reactions Criticality Noted Date [...] LURIA, FLUZONE TRIVALENT; 6MO+) (IIV3) 06/16/2016,06/11/2015,06/01/2014,2012,06/14/2012,06/01/2011 Covid F2G primary monoval ent 12+ yr 0.3mL Purple [...] Comments COMPREHENSIVE METABOLIC PANEL 08/31/2022 9:26 AM PATROL JUDGE from Last 3 Months or Most Recently Relevant to Health Maintenance Results * (ABNORMAL) COMPREHENSIVE METABOLIC PANEL (08/31/2022 9:26 AM PATROL JUDGE) Glucose 105(H) 65 - 99 mg/dL [facility] [...] 29 U/L [facility] Comment: Test Performed at: [facility] [employer] [address] [place] [address] LUISA LAWRENCE DO,MPH 08/31/2022 9:26 AM PATROL JUDGE 08/31/2022 9:27 AM PATROL JUDGE Mitchell Zamarripa MD LAB - CHEMISTRY INGRID DE GUZMAN [facility] Organization Address City/State/ZIP Co de Phone Number [facility] [address] [place] [address] from Last 3 Months or Most Recently Relevant to Health Maintenance Advance Directives * FULL RESUSCITATION (Latest Code Status on File) Date Activated Date Inactivated Comments 11/08/2011 12:50 PM 11/10/2011 12:21 AM Care Teams Rubber Cutter Relationship Specialty Start Date End Date Shandra Ruffin, ART APPRAISER-SENIOR IT ENGINEER [address] [place] [phone] PCP - General 04/02/22
--- OUTSIDE RECORDS SUMMARY | 2024-11-19 14:49 | XMS_ITS | Clinical Summary ---
Author Organization [facility] Address [address] [place] [address] Phone Care Team Providers Care Campaign Analyst Name Role Phone JAM MCDONNELL PA-C Primary Care Provider [phone] Reason for Visit and Chief Complaint HEART [...] Diagnosis HEART CENTER CHECK UP TIFFANY HOWARD [facility]- 4 10:58AM 11:28AM Insurance Includes: Active Insurance Policies Plan Name Member ID Group # Subscriber Relationship Effect cyn Dates 1 - [place] ADVANTAGE [id number] NIGHAT DELANEY Self Clinical Notes Includes: Clinical Notes from this encounter No Clinical Notes Recorded
--- OUTSIDE RECORDS SUMMARY | 2024-11-19 14:49 | XMS_ITS | Clinical Summary ---
Author Organization [facility] Address [address] [place] [address] Phone Care Team Providers Care Manager Msw Name Role Phone JAM MCDONNELL PA-C Primary Care Provider [phone] Reason for Visit and Chief Complaint HOSPITAL [...] (adult) (pediatric), Essential (primary) hypertension TIFFANY Chaudhari [facility] 12/13/2023 Last Documented On 4 2:24PM ; [facility] Medical History Includes: Medical [...] FOLLOW UP EXAM TIFFANY SAUCEDO [facility]- 4 12:43PM 1:47PM Insurance Includes: Active Insurance Policies Plan Name Member ID Group # Subscriber Relationship Effect cyn Dates 1 - [employer] ADV[employer]AGE [id number] NIGHAT DELANEY Self Clinical Notes Includes: Clinical Notes from this encounter No Clinical Notes Recorded
--- OUTSIDE RECORDS SUMMARY | 2024-11-19 14:49 | XMS_ITS | Encounter Summary ---
Author Organization [facility] Address [address] [place] [address] Care Team Providers Care Waiter/Waitress Tavern Name Role Phone Yg Lee MD Primary Care Provider [phone] Reason for Referral * CT Scan (Routine) - Pending Review Specialty Diagnoses / Procedures Referred By Contac t Referred To Contact Diagnoses Pulmonary nodules Procedures CT CHEST W CONTRAST Yg Lee MD [address] [place] [address] [address] [place] [address] Phone: tel: fax: [address] [address] Phone: tel: fax: Referral ID Status Reason Start Date Expiration Date V isits Requested Visits Authorized [id number] Pending Review 11/13/2024 12/14/2025 1 1 Reason for Visit * Reason Comments Needs Orders Written Encounter Details Date Type Department Care Team (Late st Contact Info) Description 11/13/2024 Telephone [facility] [address] [place] [address] Yg Lee MD [address] [place] [address] [address] [place] [address] Needs Orders Written Social History Tobacco Use Types Packs/Day Years Used Date Smoking Tobacco: Former Cigarettes 1 10 0 12/26/2002 - 12/26/2012 Smokeless Tobacco: Former Quit: 04/22/2013 Alcohol Use Standard Drinks/Week Comments Yes 0 [...] on file Legal Sex Female 6:04 AM FISH NET STRINGER Gender Identity Not on file Sexual Orientation Not on file Occupation Industry Job Start Date Job End Date Not on file Not on file Not on file Not on file documented as of this encounter Miscellaneous Notes * Telephone Encounter - Alicia Yost PCA - 11/13/2024 2:24 PM CDT Called and spoke with patient and faxed to the [facility] and I let patient know that if she has not heard from them then to give them a call * Telephone Encounter - Yg Lee MD - 11/13/2024 12:49 PM CDT Order placed * Telephone Encounter - Yudi Montiel - 11/13/2024 10:38 AM CDT Copied from [facility] #[id number]. Topic: CPA Information Request - Order or Referral Request >> Nov 13, 2024 10:36 AM Yudi Duran wrote: Caller Name: Antoinette Da Silva Patient/Caregiver Callback Number: Patient Contact Information: [phone] Call Notes: order for ct scan with contrast Caller is requesting: New Non Lab Order Has the patient been seen for this issue? Yes Order: CT scan with contrast on lungs Reason for Request: ER recommended pt ask pcp to have this done Preferred Facility/Location: na documented in this encounter Plan of Treatment Upcoming Encounters Date Type Department Care Team (Late st Contact Info) Description 12/04/2024 3:00 PM CDT Office Visit [facility] [address] [place] [address] Yg Lee MD [address] [place], [place] [id number] Scheduled Orders Name Type Priority Associated Diagnoses Orde r Schedule CT CHEST W CONTRAST Imaging Routine Pulmonary nodules 1 Occurrences starting 11/13/2024 until 11/13/2025 documented as of this encounter Visit Diagnoses Diagnosis Pulmonary nodules- Primary Other nonspecific abnormal finding of lung field documented in this encounter Care Teams Waiter/Waitress Tavern Relationship Specialty Start Date End Date Yg Lee MD PCP - General Internal Medicine 12/20/18 documented as of this encounter
--- OUTSIDE RECORDS SUMMARY | 2024-11-19 14:49 | XMS_ITS ---
Author Organization [facility] Address [address] [place] [address] Phone Care Team Providers Care Donor Floor Technician Name Role Phone JAM MCDONNELL PA-C Primary Care Provider [phone] Plan of Treatment No Plan of Treatment [...] On 07/08/2010 5:57PM By ALVIN BASS ; [facility] Premarin 1.25 MG OR TABS 09/02/2009 - 08/28/2010 Provi anastasia: Diagnosis: Last Documented On 11/11/2009 9:36AM By BONNIE MORALES ; [facility] Premarin 1.25 MG OR TABS 07/23/2008 - 07/18/2009 Provi anastasia: Diagnosis: Last Documented On 11/11/2009 9:37AM By BONNIE MORALES ; [facility] Amoxicillin 500 MG OR TABS 07/03/2007 - 07/13/2007 Pro vider: Diagnosis: Last Documented On 11/11/2009 9:38AM By BONNIE MORALES ; [facility] Premarin 1.25 MG OR TABS 07/05/2006 - 06/30/2007 Provi anastasia: Diagnosis: Last Documented On 11/11/2009 9:39AM By BONNIE MORALES ; [facility] Premarin 1.25 MG OR TABS 08/27/2005 - 07/23/2006 Provi anastasia: Diagnosis: Last Documented On 11/11/2009 9:40AM By BONNIE MORALES ; [facility] Medications Administered Includes: Administered Medications in patient's chart No Administered Medications Recorded Results Includes: Results from 11/20/2023 through 11/19/2024 No Results Recorded For Specified Dates History of Present Illness History of Present Illness not supported for this document type No History of Present Illness Recorded Social History Description Last Updated 11/11/2009 Last Documented On 0 9:43AM ; [facility] Exercise frequency was three times/week 11/11/2009 Last Documented On 0 9:43AM ; [facility] Exercising regularly 11/11/2009 Last Documented On 0 9:43AM ; [facility] Sexually active 11/11/2009 Last Documented On 0 9:43AM ; [facility] Sexually active with 1 partners in the l ast year 11/11/2009 Last Documented On 0 9:43AM ; [facility] Smoking Status Unknown Procedures and Surgical History Includes: Procedures from 11/20/2023 through 11/19/2024 Procedures Code Diagnosis Performing Provider Service Location Service Date CLINIC FACILITY FEE (Signi/Sep Eval & Man) [id number] Nonrheumatic mitral (valve) insufficiency, Paroxysmal atrial fibrillation, Obstructive sleep apnea (adult) (pediatric), Essential (primary) hypertension [facility] 12/13/2023 Last Documented On 4 2:24PM ; [facility] Medical History Includes: Medical History in patient's chart Description Last Updated HYSTERECTOMY ~BTL 11/11/2009 Last Documented On 0 9:43AM ; [facility] 2 living children 11/11/2009 Last Documented On 0 9:43AM ; [facility] A mammogram was performed 11/11/2009 Last Documented On 0 9:43AM ; [facility] A Pap smear was performed 11/11/2009 Last Documented On 0 9:43AM ; [facility] weight: was 7.4 lbs 11/11/2009 Last Documented On 0 9:43AM ; [facility] Breast problems 11/11/2009 Last Documented On 0 9:43AM ; [facility] Delivery date 198411/11/2009 Last Documented On 0 9:43AM ; [facility] Duration of labor: was six hr 11/11/2009 Last Documented On 0 9:43AM ; [facility] Gestational age: was 40 weeks 11/11/2009 Last Documented On 0 9:43AM ; [facility] 2 11/11/2009 Last Documented On 0 9:43AM ; [facility] History of the 2nd : 11/11/2009 Last Documented On 0 9:43AM ; [facility] Last mammogram date: 07/19/08 11/11/2009 Last Documented On 0 9:43AM ; [facility] Last pap smear date 200711/11/2009 Last Documented On 0 9:43AM ; [facility] Oral contraceptives 11/11/2009 Last Documented On 0 9:43AM ; [facility] Status post tubal ligation 11/11/2009 Last Documented On 0 9:43AM ; [facility] Family History Includes: Family History in patient's chart Description Last Updated Family history of Cancer 11/11/2009 Last Documented On 0 9:43AM ; [facility] Family history of thyroid disease 2009 Last Documented On 0 9:43AM ; [facility] Family medical history of high blood pre ssure 11/11/2009 Last Documented On 0 9:43AM ; [facility] Review of Systems Review of Systems not supported for this document type No Review of Systems Recorded Mental Status No Mental Status Recorded Functional Status No Functional Status Recorded Physical Exam Physical Exam not supported for this document type No Physical Exam Recorded Allergies Includes: Active, inactive, and resolved Allergies No Known Allergies Encounters Includes: Encounters from 11/20/2023 through 11/19/2024 Encounter Provider Location Date Check-In Time Check- Out Time Diagnosis HOSPITAL FOLLOW UP EXAM TIFFANY HOWARD [facility]- 4 12:43PM 1:47PM Insurance Includes: Active Insurance Policies Plan Name Member ID Group # Subscriber Relationship Effect cyn Dates 1 - [employer] ADVANTAGE [id number] NIGHAT DELANEY Self Clinical Notes Includes: Signed Clinical Notes starting from 09/17/2022 No Clinical Notes Recorded
--- OUTSIDE RECORDS SUMMARY | 2024-11-19 14:49 | XMS_ITS | Clinical Summary ---
Author Organization [facility] Address [address] [place] [address] Phone Care Team Providers Care Puppet Maker Name Role Phone JAM MCDONNELL PA-C Primary Care Provider [phone] Reason for Visit and Chief Complaint HEART [...] Diagnosis HEART CENTER FOLLOW UP TIFFANY HOWARD [facility]- 3 1:47PM 2:40PM Insurance Includes: Active Insurance Policies Plan Name Member ID Group # Subscriber Relationship Effect cyn Dates 1 - [employer] [employer]AGE [id number] NIGHAT DELANEY Self Clinical Notes Includes: Clinical Notes from this encounter No Clinical Notes Recorded
--- OUTSIDE RECORDS SUMMARY | 2024-11-19 14:49 | XMS_ITS | Data Portability ---
Author Organization [facility] Address [address] [place] [address] Care Team Providers Care Dietetic Technician Registered Name Role Phone JAM LEDEZMA Primary Care Provider Assessment No assessment recorded. Plan of Treatment Reminders Order Date Submit Date Provider Last Modified By Organization Details Last Modified Time Details Appointments None recorde d. Lab PTH (parath yroid hormone ), intact + calcium , serum or plasma 2019 020 bbertoglioma [facility], [address] [place] [address], [address], [place], [address], 0 18:10:55 unliste d lab - complia nce drug analysi s, ur 2019 020 REUBEN [facility], [address] [place] [address], [address], [place], [address], 0 15:09:11 PTH (parath yroid hormone ), intact + calcium , serum or plasma 2019 020 hspraggs [facility], [address] [facility], [address], [place], [address], 0 15:26:23 Referral orthope dic referra l 2019 020 [facility], [address] [facility], [place], [address], 0 14:14:57 oncolog ist referra l - ANABEL 2019 020 ssaterri Rivero MD, [address] [facility] , [address], [place], [address], 0 11:06:22 dermato logist referra l 2019 [email or web address] Not available 0 14:26:11 Procedures None recorde d. Surgeries None recorde d. Imaging NM, bone scan 2019 020 bbertoglioma [facility] (Radiology), [address] [facility] , [place], [address], 0 15:52:19 CT, lower leg, w/ contras t 2019 020 [facility] (Scheduling), [address] [facility], [place], [address], 0 15:02:33 XR, lumbar spine 2019 020 REUBEN [facility]uling, [address] [facility], [place], [address], 0 14:17:01 Medication Orders calcito marlo (salmon ) 200 unit/ac tuation nasal spray 2019 020 INTERFACE [facility] #[id number], [address], [place], [place], [id number], 0 15:02:19 acetami nophen 300 mg-code ine 30 mg tablet 2019 020 dturnerma [facility] #[id number], [address], [place], [place], [id number], 1 17:09:49 gabapen tin 100 mg capsule 2019 020 INTERFACE [facility] #[id number], [address], [place], [place], [id number], 0 12:02:47 Patient TargetsNo targets recorded. 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 Referring Physician: Jam Ledezma [facility], Encounter Date: 02/20/2020 ANABEL Referring Physician: Jam Ledezma [facility], Encounter Date: 02/20/2020 Orthopedic Referral for Path ological fracture of right tibia Referring Physician: Jam Ledezma [facility], Encounter Date: 04/22/2020 Results Created Date Observation Date Name Description Value Unit Range Abnormal Flag Note LastModifiedBy Organization Detail LastModifiedTime 12/27/19 20 12/28/2019 CMP, serum or plasm a glucose 91 mg/dL 65-99 Not Available [facility] [address] [place], [address], 12/28/2019 07:08:47 12/27/1912/28/2019 CMP, serum or plasm a BUN 15 mg/dL 6-24 Not Available [facility] [address] [place], [address], 12/28/2019 07:08:47 12/27/1912/28/2019 CMP, serum or plasm a creatinine 0.80 mg/dL 0.57-1 .00 Not Available [facility] [address] [place], [address], 12/28/2019 07:08:47 12/27/1912/28/2019 CMP, serum or plasm a eGFR if nonafricn AM 82 mL/mi n/1.7 3 >59 Not Available [facility] [address] [place], [address], 12/28/2019 07:08:47 12/27/1912/2712/28/2019 CMP, serum or plasm a eGFR if africn AM 95 mL/mi n/1.7 3 >59 Not Available [facility] [address] [place], [address], 12/28/2019 07:08:47 12/27/19 20 12/28/2019 CMP, serum or plasm a BUN/creatini ne ratio 19 9-23 Not Available [facility] [address] [place], [address], 12/28/2019 07:08:47 12/27/1912/28/2019 CMP, serum or plasm a sodium 138 mmol/ L 134-14 4 Not Available [facility] [address] [place], [address], 12/28/2019 07:08:47 12/27/19 20 12/28/2019 CMP, serum or plasm a potassium 4.2 mmol/ L 3.5-5. 2 Not Available [facility] ([facility] [place] [facility]) [address] [place], [address], 12/28/2019 07:08:47 12/27/19 20 12/28/2019 CMP, serum or plasm a chloride 98 mmol/ L 96-106 Not Available [facility] [address] [place], [address], 12/28/2019 07:08:47 12/27/1912/28/2019 CMP, serum or plasm a carbon dioxide, total 23 mmol/ L 20-29 Not Available [facility] [address] [place], [address], 12/28/2019 07:08:47 12/27/1912/28/2019 CMP, serum or plasm a calcium 10.1 mg/dL 8.7-10 .2 Not Available [facility] ([facility]) [address] [place], [address], 12/28/2019 07:08:47 12/27/19 20 12/28/2019 CMP, serum or plasm a protein, total 7.3 g/dL 6.0-8. 5 Not Available [facility] [address] [place], [address], 12/28/2019 07:08:47 12/27/1912/28/2019 CMP, serum or plasm a albumin 4.8 g/dL 3.8-4. 9 Not Available [facility] [address] [place], [address], 12/28/2019 07:08:47 12/27/1912/28/2019 CMP, serum or plasm a globulin, total 2.5 g/dL 1.5-4. 5 Not Available [facility] [address] [place], [address], 12/28/2019 07:08:47 12/27/1912/28/2019 CMP, serum or plasm a A/G ratio 1.9 1.2-2. 2 Not Available [facility] [address] [place], [address], 12/28/2019 07:08:47 12/27/1912/28/2019 CMP, serum or plasm a bilirubin, total 0.4 mg/dL 0.0-1. 2 Not Available [facility] [address] [place], [address], 12/28/2019 07:08:47 12/27/1912/28/2019 CMP, serum or plasm a alkaline phosphatase 114 IU/L 39-117 Not Available [facility] [address] [place], [address], 12/28/2019 07:08:47 12/27/1912/28/2019 CMP, serum or plasm a AST (SGOT) 40 IU/L 0-40 Not Available [facility] [address], [place], [address], 12/28/2019 07:08:47 12/27/1912/28/2019 CMP, serum or plasm a ALT (SGPT) 29 IU/L 0-32 Not Available [facility] [address] [facility], [place], [address], 12/28/2019 07:08:47 12/27/19 20 12/28/2019 vitam in D, 25-hy droxy , total , serum vitamin D, 25-hydroxy 34.2 NG/mL 30.0-1 00.0 Vitam in D defic iency has been defin ed by the [facility] and an Endoc rine Socie ty pract ice guide line as a level of serum 25-OH vitam in D less than 20 ng/mL (1,2) . The Endoc rine Socie ty went on to furth er defin e vitam in D insuf ficie ncy as a level betwe en 21 and 29 ng/mL (2). 1. IOM ([facility]). 2010. Melany ry refer ence kristina es for calci um and D. Zackary baum DC: The [facility] . 2. Patricia valdez MF, Jluis albert [place], [place] off-F errar i GARCIA, et al. Evalu ation , treat ment, and preve ntion of vitam in D defic iency : an Endoc rine Socie ty clini tessie pract ice guide line. JCEM. 2010; 96(7) :1911 -30. Not Available [facility] [address] [facility], [place], [address], 12/28/2019 07:08:48 02/11/2002/19/2020 drug scree n, urine [...] [place] [address] EXPEC JALYN ng/mg creat Morph ine 1924 EXPEC JALYN ng/mg creat Normo rphin e 572 EXPEC JALYN ng/mg creat Selah deine 1659 EXPEC JALYN ng/mg creat Sourc [...] expec jalyn metab olite of morph ine. Selah deine is an expec jalyn metab olite [...] Clobe tasol Ezeti mibe Fluti kelsie e [place] chlor othia zide (Samantha nopri l-HCT Z) [place] xychl oroqu ine Levot hyrox ine Lisin [...] ===== ===== ===== ===== === Not Available [facility] [address] [facility], [place], [address], 02/19/2020 15:09:11 02/11/20 20 02/19/2020 drug scree n, urine pdf . Not Available [employer] [address] [facility], [place], [address], 02/19/2020 15:09:11 04/28/20 20 04/28/2020 PTH (para [...] - 65 < 8.6 Not Available [facility] [address] [place], [address], 04/29/2020 17:08:21 04/28/20 20 04/29/2020 PTH (para thyro id hormo ne), intac t + calci um, serum or plasm a calcium TNP mg/dL No serum gel recei dillon. Not Available [facility] [address] [place], [address], 04/29/2020 17:08:21 04/28/20 20 04/29/2020 PTH (para thyro id hormo ne), intac t + calci um, serum or plasm a PTH, intact 63 pg/mL 15-65 Not Available [facility] [address] [place], [address], 04/29/2020 17:08:21 04/28/20 20 04/29/2020 speci men statu s repor t specimen status report TNP No serum gel recei dillon. TEST: 25958 6 Calci um Panel : 95270 1 Not Available [facility] [address] [place], [address], 04/29/2020 17:08:22 04/30/2005/01/2020 TSH + free T4, serum TSH 4.230 uIU/m L 0.450- 4.500 Not Available [facility] [address] [place], [address], 05/01/2020 08:17:01 04/30/2005/01/2020 TSH + free T4, serum T4,free(dire ct) 1.18 NG/dL 0.82-1 .77 Not Available [facility] [address] [place], [address], 05/01/2020 08:17:01 04/30/2005/01/2020 CBC w/ auto diff WBC 5.2 x10e3 /uL 3.4-10 .8 Not Available [facility] [address] [facility], [place], [address], 05/01/2020 08:17:02 04/30/2005/01/2020 CBC w/ auto diff RBC 4.16 x10e6 /uL 3.77-5 .28 Not Available [facility] [address] [facility], [place], [address], 05/01/2020 08:17:02 04/30/2005/01/2020 CBC w/ auto diff hemoglobin 13.9 g/dL 11.1-1 5.9 Not Available [facility] [address] [facility], [place], [address], 05/01/2020 08:17:02 04/30/2005/01/2020 CBC w/ auto diff hematocrit 39.7 % 34.0-4 6.6 Not Available [facility] [address] [facility], [place], [address], 05/01/2020 08:17:02 04/30/2005/01/2020 CBC w/ auto diff MCV 95 fL 79-97 Not Available [facility] [address] [place], [address], 05/01/2020 08:17:02 04/30/2005/01/2020 CBC w/ auto diff MCH 33.4 pg 26.6-3 3.0 above high normal Not Available [facility] [address] [place], [address], 05/01/2020 08:17:02 04/30/2005/01/2020 CBC w/ auto diff MCHC 35.0 g/dL 31.5-3 5.7 Not Available [facility] [address] [facility], [place], [address], 05/01/2020 08:17:02 04/30/2005/01/2020 CBC w/ auto diff RDW 13.4 % 11.7-1 5.4 Not Available [facility] [address] [facility], [place], [address], 05/01/2020 08:17:02 04/30/2005/01/2020 CBC w/ auto diff platelets 296 x10e3 /uL 150-45 0 Not Available [facility] [address] [facility], [place], [address], 05/01/2020 08:17:02 04/30/2005/01/2020 CBC w/ auto diff neutrophils 72 % not estab. Not Available [facility] [address] [facility], [place], [address], 05/01/2020 08:17:02 04/30/2005/01/2020 CBC w/ auto diff lymphs 14 % not estab. Not Available [facility] [address] [facility], [place], [address], 05/01/2020 08:17:02 04/30/2005/01/2020 CBC w/ auto diff monocytes 7 % not estab. Not Available [facility] [address] [facility], [place], [address], 05/01/2020 08:17:02 04/30/2005/01/2020 CBC w/ auto diff eos 4 % not estab. Not Available [facility] [address] [facility], [place], [address], 05/01/2020 08:17:02 04/30/2005/01/2020 CBC w/ auto diff basos 2 % not estab. Not Available [facility] [address] [facility], [place], [address], 05/01/2020 08:17:02 04/30/2005/01/2020 CBC w/ auto diff immature cells QUALITY ASSURANCE LEAD Not Available [facility] [address] [place], [address], 05/01/2020 08:17:02 04/30/2005/01/2020 CBC w/ auto diff neutrophils (absolute) 3.8 x10e3 /uL 1.4-7. 0 Not Available [facility] [address] [place], [address], 05/01/2020 08:17:02 04/30/2005/01/2020 CBC w/ auto diff lymphs (absolute) 0.7 x10e3 /uL 0.7-3. 1 Not Available [facility] [address] [place], [address], 05/01/2020 08:17:02 04/30/2005/01/2020 CBC w/ auto diff monocytes(ab solute) 0.4 x10e3 /uL 0.1-0. 9 Not Available [facility] [address] [place], [address], 05/01/2020 08:17:02 04/30/2005/01/2020 CBC w/ auto diff eos (absolute) 0.2 x10e3 /uL 0.0-0. 4 Not Available [facility] [address] [place], [address], 05/01/2020 08:17:02 04/30/2005/01/2020 CBC w/ auto diff baso (absolute) 0.1 x10e3 /uL 0.0-0. 2 Not Available [facility] [address] [place], [address], 05/01/2020 08:17:02 04/30/2005/01/2020 CBC w/ auto diff immature granulocytes 1 % not estab. Not Available [facility] [address] [place] [place], [address], 05/01/2020 08:17:02 04/30/2005/01/2020 CBC w/ auto diff immature grans (abs) 0.0 x10e3 /uL 0.0-0. 1 Not Available [facility] [address] [facility], [place], [address], 05/01/2020 08:17:02 04/30/2005/01/2020 CBC w/ auto diff NRBC QUALITY ASSURANCE LEAD Not Available [facility] [address] [place], [address], 05/01/2020 08:17:02 04/30/2005/01/2020 CBC w/ auto diff hematology comments: QUALITY ASSURANCE LEAD Not Available [facility] [address] [facility], [place], [address], 05/01/2020 08:17:02 04/30/2005/01/2020 CMP, serum or plasm a glucose 109 mg/dL 65-99 above high normal Not Available [facility] [address] [place], [address], 05/01/2020 08:17:03 04/30/2005/01/2020 CMP, serum or plasm a BUN 12 mg/dL 6-24 Not Available [facility] [address] [place], [address], 05/01/2020 08:17:03 04/30/2005/01/2020 CMP, serum or plasm a creatinine 0.65 mg/dL 0.57-1 .00 Not Available [facility] [address] [place], [address], 05/01/2020 08:17:03 04/30/2005/01/2020 CMP, serum or plasm a eGFR if nonafricn AM 99 mL/mi n/1.7 3 >59 Not Available [facility] [address] [facility] [place], [address], 05/01/2020 08:17:03 04/30/20 20 05/01/2020 CMP, serum or plasm a eGFR if africn AM 114 mL/mi n/1.7 3 >59 Not Available [facility] [address] [facility] [place], [address], 05/01/2020 08:17:03 04/30/20 20 05/01/2020 CMP, serum or plasm a BUN/creatini ne ratio 18 9-23 Not Available [facility] [address] [place], [address], 05/01/2020 08:17:03 04/30/2005/01/2020 CMP, serum or plasm a sodium 139 mmol/ L 134-14 4 Not Available [facility] [address] [place] [place], [address], 05/01/2020 08:17:03 04/30/2005/01/2020 CMP, serum or plasm a potassium 4.4 mmol/ L 3.5-5. 2 Not Available [facility] [address] [place], [address], 05/01/2020 08:17:03 04/30/2005/01/2020 CMP, serum or plasm a chloride 96 mmol/ L 96-106 Not Available [facility] [address] [place], [address], 05/01/2020 08:17:03 04/30/2005/01/2020 CMP, serum or plasm a carbon dioxide, total 27 mmol/ L 20-29 Not Available [facility] [address] [place], [address], 05/01/2020 08:17:03 04/30/2005/01/2020 CMP, serum or plasm a calcium 10.0 mg/dL 8.7-10 .2 Not Available [facility] [address] [place], [address], 05/01/2020 08:17:03 04/30/2005/01/2020 CMP, serum or plasm a protein, total 7.0 g/dL 6.0-8. 5 Not Available [facility] [address] [place], [address], 05/01/2020 08:17:03 04/30/2005/01/2020 CMP, serum or plasm a albumin 4.6 g/dL 3.8-4. 9 Not Available [facility] [address] [place], [address], 05/01/2020 08:17:03 04/30/2005/01/2020 CMP, serum or plasm a globulin, total 2.4 g/dL 1.5-4. 5 Not Available [facility] [address] [place], [address], 05/01/2020 08:17:03 04/30/2005/01/2020 CMP, serum or plasm a A/G ratio 1.9 1.2-2. 2 Not Available [facility] [address] [place], [address], 05/01/2020 08:17:03 04/30/2005/01/2020 CMP, serum or plasm a bilirubin, total 0.5 mg/dL 0.0-1. 2 Not Available [facility] [address] [place], [address], 05/01/2020 08:17:03 04/30/2005/01/2020 CMP, serum or plasm a alkaline phosphatase 231 IU/L 39-117 above high normal Not Available [facility] [address] [facility], [place], [address], 05/01/2020 08:17:03 04/30/20 20 05/01/2020 CMP, serum or plasm a AST (SGOT) 83 IU/L 0-40 above high normal Not Available [facility] [address] [facility], [place], [address], 05/01/2020 08:17:03 04/30/20 20 05/01/2020 CMP, serum or plasm a ALT (SGPT) 63 IU/L 0-32 above high normal Not Available [facility] [address] [facility], [place], [address], 05/01/2020 08:17:03 04/30/20 20 04/30/2020 urina lysis , dipst ick Leukocytes Negati ve Not Available In-Office Order Internal Use Only DO Not Attach Compendium DO Not Attach Compendium, Do Not Delete/merge, [id number] 04/30/2020 11:03:06 04/30/2004/30/2020 urina lysis , dipst ick Nitrite negati ve Not Available In-Office Order Internal Use Only DO Not Attach Compendium DO Not Attach Compendium, Do Not Delete/merge, [id number] 04/30/2020 11:03:06 04/30/2004/30/2020 urina lysis , dipst ick Urobilinogen .2 Not Available In-Of fice Order Internal Use Only DO Not Attach Compendium DO Not Attach Compendium, Do Not Delete/merge, [id number] 04/30/2020 11:03:06 04/30/2004/30/2020 urina lysis , dipst ick Protein Negati ve Not Available In-Office Order Internal Use Only DO Not Attach Compendium DO Not Attach Compendium, Do Not Delete/merge, [id number] 04/30/2020 11:03:06 04/30/20 20 04/30/2020 urina lysis , dipst ick pH 6.5 Not Available In-Office Order Internal Use Only DO Not Attach Compendium DO Not Attach Compendium, Do Not Delete/merge, [id number] 04/30/2020 11:03:06 04/30/20 20 04/30/2020 urina lysis , dipst ick Blood Negati ve Not Available In-Office Order Internal Use Only DO Not Attach Compendium DO Not Attach Compendium, Do Not Delete/merge, [id number] 04/30/2020 11:03:06 04/30/20 20 04/30/2020 urina lysis , dipst ick Specific [place] 1.020 Not Available In-Off ice Order Internal [...] r spine No observ ation record ed. [address], [place], [address], 02/07/2020 17:22:18 02/19/20 20 02/19/2020 NM, bone scan No observ ation record ed. [facility] [address] [facility] [place], [address], 02/19/2020 17:52:46 03/25/20 20 03/25/2020 bone densi ty No observ [facility]ion [facility] ed[facility] [address] [facility] [place], [address], 03/28/2020 12:17:03 09/12/19 21 09/10/2020 cardi ac stres s test No observ ation record ed. [facility] [address], [place], [address], 09/12/2020 16:33:08 12/18/19 21 12/09/2020 pulmo nary funct ion test* No observ ation record ed. [facility] [address], [place], [address], 12/17/2020 15:14:10 01/03/20 21 01/02/2021 US, duple x, renal arter y No observ ation record ed. [facility] [address], [place], [address], 01/02/2021 14:47:22 01/03/20 21 01/02/2021 stres s echoc ardio gram No observ ation record ed. [facility] [address], [place], [address], 01/02/2021 14:47:41 11/28/19 24 11/25/2023 US, echoc ardio gram, trans esoph ageal No observ ation record ed. [facility] [address] [facility] [address], [place], [address], 12/08/2023 11:32:40 01/16/20 24 11/23/2023 CT, angio gram, chest , w/ contr ast No observ ation record ed. mmetias [address] [place], [address], 01/16/2024 15:25:06 Result Notes None recorded. Problems Name Problem SNOMED Code Status Onset Date Resolution Date Notes Provider Name and Address Organization Details Recorded Time Drug therapy finding 880544953 Active 2015 CHIO Niño, [place] - [facility] 0 11:49:27 Enzyme level - finding 518209716 Active 2017 CHIO Niño[place] [facility] 0 11:49:27 Fibromyalgia 921713035 Active 2011 Kallie Sloan [place] null, [place] [facility] 0 11:49:27 Hypertensive disorder 55950295 Active 2012 Kallie S[place] [facility] 0 11:49:27 Osteopenia 531042730 Active 2011 Kallie S[place] [facility] 0 11:49:27 Rheumatoid arthritis 44098851 Active 2017 Kallie S[place] [facility] 0 11:49:27 Problem Notes None recorded. Procedures Surgical History Date Name Laterality Status Provider Name and Address Organization Details Recorded Time hysterectomy completed Anabela Blanc [place] - [facility] 09/06/2019 12:01:29 Imaging Results Imaging Date Name Status LastModified by Organization Details LastModified Time 01/28/2020 XR, lumbar spine completed milly [place] [address] [place], [address], 02/07/2020 17:22:18 02/19/2020 NM[facility] [address] [place], [address], 02/19/2020 17:52:46 03/25/2020 bone density completed [facility] [address] [place], [address], 03/28/2020 12:17:03 09/10/2020 cardiac stress test completed [facility] ([facility]) [address] [facility], [place], [address], 09/12/2020 16:33:08 12/09/2020 pulmonary function test* completed [facility] ([facility]) [address] [facility], [place], [address], 12/17/2020 15:14:10 01/02/2021 US, duplex, renal artery completed [facility] ([facility] [address] [facility], [place], [address], 01/02/2021 14:47:22 01/02/2021 stress echocardiogram completed [facility] ([facility] [address] [facility], [place], [address], 01/02/2021 14:47:41 11/25/2023 US, echocardiogram, transesophageal completed [facility] Information Services Manager [address] [facility] [place], [address], 12/08/2023 11:32:40 11/23/2023 CT, angiogram, chest, w/ contrast completed [facility] [address] [facility] [place], [address], 01/16/2024 15:25:06 Procedure Notes None recorded. Medical Equipment None Reported. Allergies Allergen ID Allergen Name Allergen Category Reaction Reaction Severity Criticality Documentation Date Start Date Code Code System Note Provider Name and Address Organization Details Recorded Time 675113 Substance with sulfonami de structure and antibacte rial mechanism of action (substanc e) medicatio n hives Not available Not available 09/06/2019 47024 8003 SNOMED Not Available Not Available Not Available 646862 Cipro medicatio n Not available Not available Not available 09/06/201921131 3 RxNorm Not Available Not Available Not Available 456074 ciproflox acin medicatio n myalgias (muscle pain) [...] DateTime 01/25/2020 157.48 cm Kallie Sloan MA [facility] 01/25/20 20 11:49:06 Date Recorded Body height Provider Name an d Address Organization Details Last Updated DateTime 01/30/2020 157.48 cm Anabela Blanc MA [facility] 01/30/2020 14:32:47 Date Recorded Body height Body mass index (BMI) Body weight Body temperature Oxygen saturation Oxygen saturation in Arterial blood by Pulse oximetry Heart rate Systolic blood pressure Diastolic blood pressure Provider Name and Address Organization Details Last Updated DateTime 0 157.48 cm 31.1 kg/m2 04701.7 g 98.1 [degF] 93 % 93 % 83 /min 108 mm[Hg] 82 mm[Hg] Anabela Blanc MA [facility] 0 10:40:52 Date Recorded Body height Body mass index (BMI) Body weight Body temperature Oxygen saturation Oxygen saturation in Arterial blood by Pulse oximetry Heart rate Systolic blood pressure Diastolic blood pressure Provider Name and Address Organization Details Last Updated DateTime 0 157.48 cm 31.3 kg/m2 13409 g 98 [degF] 98 % 98 % 80 /min 142 mm[Hg] 90 mm[Hg] Kallie Sloan MA [facility] 0 14:59:34 Social History Question Answer Notes LastModified by Organizat ion Details LastModified Time Tobacco Smoking Status Former Smoker 2012 Anabela Blanc MA null, [facility] 09/06/2019 12:01:14 In The 14 Days Before Symptom Onset, Have You Had Close Contact With A Laboratory-confir med COVID-19 While That Case Was Ill? No Information not available 11/26/2019 If Patient Spent Time In [facility] - Does The Patient Live In [facility]? No Information not available 11/26/2019 In The 14 Days Before Symptom Onset, Have You Had Close Contact With A Person Who Is Under Investigation For COVID-19 While That Person Was Ill? No Information not available 11/26/2019 In The 14 Days Before Symptom Onset, Did The Patient Spend Time In [facility]? No Information not available 11/26/2019 Have You [...] Reflux (GERD) Y Cancer N Stroke Y Headaches N Kidney or Bladder Problems N Eating Disorder N Skin Problems Y Asthma N Allergies Y Substance Abuse N Hepatitis N ADHD N High Cholesterol Y Liver Disease N Schizophrenia N Thyroid Problems Y GI Problems Y Anemia N Heart Attack (CT) N Diabetes N Seizures/Epilepsy N Heart Failure N Osteoporosis Y Gynecological HistoryNo gynecological history recorded. Obstetrics History GPAL:G 0 P 0 0 0 0 Past Encounters Encounter ID Performer Location Encounter Start Date Encounter Closed Date Diagnosis/Indication Diagnosis SNOMED-CT Code Diagnosis ICD10 Code Diagnosis Note [id number] Anabela Blanc MA [facility] [address] [place] [address] 09/06/2019 11:41:44 09/07/2019 16:55:26 Chronic depression 048883588 F34.1 Long-term drug therapy 601317531 Z79.899 Essential hypertension 71559717 I10 [id number] Jam Ledezma PA-C [facility] [address] [place] [address] 09/13/2019 11:39:42 09/13/2019 12:10:30 Essential hypertension 16977141 I10 [id number] Jam Ledezma PA-C [facility] [address] [place] [address] 11/26/2019 10:49:30 11/26/2019 12:28:39 Essential hypertension 51276463 I10 Mitral valve prolapse 40 0218210 I34.1 History of transient ischemic attack 375161723 Z86.73 Seasonal a llergic rhinitis 527200577 J30.2 [id number] Jam Ledezma PA-C [facility] [address] [place] [address] 12/10/2019 10:48:06 12/12/2019 11:23:50 Essential hypertension 14301451 I10 Chronic depression 72374 0009 F34.1 Nausea and vomiting 1692 1999 R11.2 [id number] Jam Ledezma PA-C [facility] [address] [place] [address] 12/11/2019 13:09:52 12/12/2019 11:45:12 Mixed hyperlipidemia 403960119 E78.2 [id number] Jam Ledezma PA-C [facility] [address] [place] [address] 12/27/2019 11:02:54 12/28/2019 08:34:57 Idiopathic hypercalcemia 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 E83.52 Seasonal a llergic rhinitis 566306668 J30.2 [id number] Jam Ledezma PA-C [facility] [address] [place] [address] 01/25/2020 10:10:00 01/28/2020 08:04:28 Lumbar radiculopathy 151419125 M54.16 [id number] KELLEN Liao [facility] [address] [place] [address] 01/30/2020 11:07:31 01/31/2020 07:58:24 Idiopathic hypercalcemia 452091338 E83.52 Stress fra cture of tibia 573803549 M84.361A Osteoporosis 91657042 M8 1.0 [id number] Anabela Blanc MA [facility] [address] [place] [address] 02/11/2020 10:34:29 02/11/2020 15:10:24 Pain in right lower limb 378898237 M79.604 Long-term drug therapy 400639251 Z79.438 [id number] Jam Ledezma PA-C [facility] [address] [place] [address] 02/20/2020 14:44:57 02/20/2020 15:38:07 Pathological fracture of right tibia 3797812251 3148484 M84.461G Complaining of a rash 16 8405038 R21 [id number] Jam Ledezma PA-C [facility] [address] [place] [address] 04/22/2020 09:33:20 04/23/2020 12:40:11 Osteopenia 419477192 M85.88 Pathologic al fracture of right tibia 3597065398 8663314 M84.461G Health Concerns Section Related Observation LastModified by Organization Detai ls LastModified Time None Recorded Concern Status LastModified by Organization Details LastModified Time None Recorded Advance Directives Directive None Recorded Payers Encounter Date Sequence Insurance Name Policy Number Policy Bright Covered Member ID Bright Member ID Guarantor Name 01/25/2020 1 [facility] PRIOR TO 02/26/2021 (MEDICAID REPLACEMENT - HMO) Antoinette Da Silva [id number] Antoinette Da Silva 01/30/2020 1 [facility] PRIOR TO 02/26/2021 (MEDICAID REPLACEMENT - HMO) Antoinette Da Silva [id number] Antoinette Da Silva 02/11/2020 1 [facility] PRIOR TO 02/26/2021 (MEDICAID REPLACEMENT - HMO) Antoinette Da Silva [id number] Antoinette Da Silva 02/20/2020 1 [facility] PRIOR TO 02/26/2021 (MEDICAID REPLACEMENT - HMO) Antoinette Da Silva [id number] Antoinette Da Silva 04/22/2020 1 [facility] PRIOR TO 02/26/2021 (MEDICAID REPLACEMENT - HMO) Antoinette Da Silva [id number] Antoinette Da Silva Notes Date Note Type [...] osteoporosis Jam Ledezma PA-C Attn: [address] [place], [address], [facility] 01/25/2020 12:05:40 01/30/2020 text/html questions re bpressure...162/106 [...] osteoporosis... Jam Ledezma PA-C Attn: [address] [place], [address], [facility] 01/30/2020 15:08:21 02/11/2020 text/html started january 17..pain in medial lower rt leg..no known injury. went to ER xrays were done. findings of an old healed fracture that the patient denies ever having broken. pain has not improved may have worsened. Anabela Blanc MA [facility], [facility] 02/11/2020 11:25:00 02/20/2020 text/html bone scan reviewed..rib with uptake and rt tib fib with intense uptake they say likely posttraumatic but she denies injury. now skin on forearms are red and that is pruritic not painful Jam Ledezma PA-C Attn: [address]ing[address] [place], [address], [facility] 02/20/2020 15:32:42 04/22/2020 text/html follow up on leg fractures that dont belong... Jam Ledezma PA-C Attn: [address] [facility], [place], [address], [facility] 04/22/2020 17:56:09 OBGyn Episode No OBEpisode recorded.
--- OUTSIDE RECORDS SUMMARY | 2024-11-19 14:49 | XMS_ITS | Referral Summary ---
Author Organization [facility] Address [address] [place] [address] Care Team Providers Care Electrical Research Engineer Name Role Phone Mariah Adams MD Primary Care Provider + Mitchell Zamarripa MD Unavailable [phone] Brit More NURSE CARE MANAGER Unavailable [phone] Cliff Ronquillo NP Unavailable [phone] Dick Aguilar Unavailable [phone] Gavin Sewell MD Unavailable [phone] Encounters Date Type Department Care Team Description 09/10/2024 9:15 AM PROCEDURES ANALYST - 09/10/2024 10:45 AM PROCEDURES ANALYST Surgery [facility] Operating Room [address] [place] [address] Vignesh Hawkins MD LAPAROSCOPIC CHOLECYSTECTOMY 09/10/2024 9:16 AM PROCEDURES ANALYST Anesthesia Event [facility] [address] [place] [address] Tonia Gutierrez MD Reynolds, Ethan Emerson, MD 09/10/2024 8:13 AM PROCEDURES ANALYST - 09/10/2024 2:39 PM PROCEDURES ANALYST Hospital Encounter [facility] [address] [place] [address] Vignesh Hawkins MD Calculus of gallbladder with [...] 1 tablet (100 mcg total) by mouth embedded processor before breakfast 1 Active celecoxib (CeleBREX) 100 [...] 08/14/2024 Assessment & Plan (08/14/2024 9:48 AM PROCEDURES ANALYST): The patient likely has chronic cholecystitis given [...] (04/23/2022): Added automatically from request for surgery [id number] Posterior tibial tendon dysfunction 03/02/2022 Flat foot [...] 01/04/2018 Assessment & Plan (09/19/2018 1:30 PM PROCEDURES ANALYST): Low disease activity today on exam. Take [...] to obtain past records. Plan: Cardio consult TTLeidy Nilda Diffuse connective tissue disease 01/18/2012 04/26/2018 Polyarthropathy [...] week 12/23/2022 How often do you attend [facility] or latter-day services? Never 12/23/2022 Do you [...] staff should administer the PHQ-9) 0 11/23/2023 [facility] - Occupational [...] on file Legal Sex Female 11:50 PM PROCEDURES ANALYST Gender Identity Not on file Sexual Orientation Not on file Last Filed Vital Signs Vital Sign Reading Time Taken Comments Blood Pressure 119/69 09/10/2024 2:00 PM PROCEDURES ANALYST Pulse 69 09/10/2024 2:00 PM PROCEDURES ANALYST Temperature 36.4 C (97.6 F) 09/10/2024 2:00 PM PROCEDURES ANALYST Respiratory Rate 16 09/10/2024 2:00 PM PROCEDURES ANALYST Oxygen Saturation 94% 09/10/2024 2:00 PM PROCEDURES ANALYST Inhaled Oxygen Concentration - - Weight 67.6 kg (149 lb 0.5 oz) 09/10/2024 8:15 A M PROCEDURES ANALYST Height 154.9 cm (5' 1 ) 09/10/2024 8:15 AM PROCEDURES ANALYST Body Mass Index 28.16 09/10/2024 8:15 AM PROCEDURES ANALYST Plan of Treatment Not on file Medical Devices Implanted Type Area Plug Wirer Device Identifier Shelf Expiration Date Model / Serial / Lot Exactech Restrictor Cement Cemex Small Od13mm Tpa-13 - [id number] Implanted:Qty: 1 on 05/04/2022 by Gavin Sewell MD at [facility] Left: Shoulder [employer] 08/28/2023 TPA-13 / / [id number] Exactech Equinoxe Reverse Shoulder +0mm Tray Humeral Adapter 320-10-00 - [id number] - [id number] Implanted:Qty: 1 on 05/04/2022 by Gavin Sewell MD at [facility] Ex[employer] [id number] 04/07/2032 320-10-00 / [id number] / [employer]ech Equinoxe 40mm Small Reverse Constrain Shoulder +2.5mm Liner 320-40-13 - [id number] - [id number] Implanted:Qty: 1 on 05/04/2022 by Gavin Sewell MD at [facility] [employer] 01/31/2024 320-40-13 / [id number] / Ex[employer]ech Equinoxe Lock Reverse Shoulder Glenosphere Screw Bone 320-15- - [id number] - [id number] Implanted:Qty: 1 on 05/04/2022 by Gavin Sewell MD at [facility] Left: Shoulder [employer]ech 03/09/2027 320-15 / [id number] / Exactech Reverse Torque Define Shoulder Kit Screw 320-20 - [id number] - [id number] Implanted:Qty: 1 on 05/04/2022 by Gavin Sewell MD at [facility] Left: Shoulder [employer]ech 02/03/2027 32020 / [id number] / Ex[employer]ech Equinoxe Small Reverse Superior Posterior Augment Shoulder Left 320-35- - [id number] - [id number] Implanted:Qty: 1 on 05/04/2022 by Gavin Sewell MD at [facility] Left: Shoulder [employer] [id number] 04/08/2031 320-35- / [id number] / Ex[employer]ech Equinoxe 10mm Stem Humeral Sterile 300-09-07 - [id number] - [id number] Implanted:Qty: 1 on 05/04/2022 by Gavin Sewell MD at [facility] Left: Shoulder [employer] [id number] 09/07/2031 300-09-07 / [id number] / [employer] Cement Bone Simplex Gentamicin High Viscosity 40gm 6195-1-001 - [id number] Implanted:Qty: 1 on 05/04/2022 by Gavin Sewell MD at [facility] Left: Shoulder [employer] 09/28/2023 6195-1-001 / / [id number] Exactech Equinoxe 40mm 24.3mm Small Reverse Shoulder Sphere Glenoid 320-31- - [id number] - [id number] Implanted:Qty: 1 on 05/04/2022 by Gavin Sewell MD at [facility] Left: Shoulder [employer] [id number] 12/11/2030 320--40 / [id number] / [employer]ech Equinoxe 4.5mm 38mm Kit Compression Lock Cap Reverse Shoulder [id number] - [id number] - [id number] Implanted:Qty: 1 on 05/04/2022 by Gavin Sewell MD at [facility] Left: Shoulder [employer] [id number] 01/12/2027 320-20-38 / [id number] / [employer]ech Equinoxe 4.5mm 34mm Kit Compression Lock Cap Reverse Shoulder 320-20-34 - [id number] - [id number] Implanted:Qty: 1 on 05/04/2022 by Gavin Sewell MD at [facility] Left: Shoulder [employer] [id number] 07/14/2026 320-20-34 / [id number] / [employer] Insert Tibial Knee Fixed Lm Posterior Stabilized Attune 7mm Size 5 Polyethylene [id number] - [id number] Implanted:Qty: 1 on 11/10/2022 by Gavin Sewell MD at [facility] Left: Knee [employer] 07/28/2030 [id number] / / [id number] [employer] Attune Cruciate Retain Cementless Knee Left 5 Component Femoral [id number] - [id number] Implanted:Qty: 1 on 11/10/2022 by Gavin Sewell MD at [facility] Left: Knee [employer] 04/28/2032 [id number] / / [id number] [employer] Attune Fb Tib Base Sz 5 Por [id number] - [id number] Implanted:Qty: 1 on 11/10/2022 by Gavin Sewell MD at [facility] Left: Knee [employer] 03/28/2032 [id number] / / [id number] Procedures Procedure Name Priority Date/Time Associated Diagnosis Comments SURGICAL PATHOLOGY Routine 09/10/2024 10 :29 AM PROCEDURES ANALYST Calculus of gallbladder with cholecystitis without biliary obstruction, unspecified cholecystitis acuity MN AN ELECTIVE ENDOTRACHEAL AIRWAY Routine 09/10/2024 9:36 AM PROCEDURES ANALYST LAPAROSCOPIC CHOLECYSTECTOMY 09/10/2024 9:02 AM PROCEDURES ANALYST Calculus of gallbladder with cholecystitis without biliary obstruction, unspecified cholecystitis acuity EGFR STAT 09/10/2024 8:47 AM PROCEDURES ANALYST DIFFERENTIAL AUTO STAT 09/10/2024 8:4 7 AM PROCEDURES ANALYST ANTIBODY SCREEN STAT 09/10/2024 8:47 AM PROCEDURES ANALYST ABO/RH STAT 09/10/2024 8:47 AM PROCEDURES ANALYST TYPE AND SCREEN STAT 09/10/2024 8:47 AM PROCEDURES ANALYST CBC WITH AUTO DIFFERENTIAL STAT 09/10/2024 8:47 AM PROCEDURES ANALYST COMPREHENSIVE METABOLIC PANEL STAT 09/10/2024 8:47 AM PROCEDURES ANALYST B ABO / RH CONFIRMATION TESTING STAT 09/10/2024 8:45 AM PROCEDURES ANALYST SERUM HEPATITIS C AB Routine 11/01/2014 8:32 AM PROCEDURES ANALYST DIGITAL MAMMOGRAPHY Routine 12/11/2013 1 1:01 AM CDT from Last 3 Months or Most Recently Relevant to Health Maintenance Results * Surgical pathology (09/10/2024 10:29 AM PROCEDURES ANALYST) Tissue (Gallbladder) 09/10/2024 9:51 AM PROCEDURES ANALYST Narrative PATHOLOGY [facility] ([place]) - 09/11/2024 3:50 PM PROCEDURES ANALYST EPIC results best viewed via link to PDF [facility] Department of Pathology [address] [place] [address] Note to Patients: This report may [...] Final Report Patient Name: ANTOINETTE DELANEY Address: [address] [place] [address] Gender: F : 1960 (Age: 64) Service: Surgery Location: [facility] Hospital #: [id number] Patient Type: [facility] Taken: 09/10/2024 Received: 09/10/2024 Accessioned: 09/10/2024 [...] the Surgical Pathology Department at [facility] as part of an ongoing quality measurement specialist program and in compliance with federally [...] determined by the Surgical Pathology Department [facility]. It has not been cleared or approved by the U. S. Food and Drug Administration. Note for decalcified specimens: This assay has not been validated on decalcified tissues. Results should be interpreted with caution given the possibility of false negativity on decalcified specimens us Vignesh Hawkins MD LAB PATHOLOGY OR DERABLES Final Result PATHOLOGY [facility] ([place]) [address] [place] [address] * MN AN ELECTIVE ENDOTRACHEAL AIRWAY (09/10/2024 9:36 AM PROCEDURES ANALYST) Cliff Lake CRNA - 09/10/2024 9:36 AM PROCEDURES ANALYST Cliff Davis CRNA 09/10/2024 9:37 AM Airway Patient location: OR Urgency: elective Indications for airway management: anesthesia and airway protection Difficult airway: no Staff: Placed by: HAND WASHER: Cliff Davis CRNA Emergent airway documentation: Risks [...] nal Result * eGFR (09/10/2024 8:47 AM PROCEDURES ANALYST) eGFR >90 >=60 mL/min/1. 73 m2 Comment: [...] last reviewed 2021. Blood 09/10/2024 8:47 AM PROCEDURES ANALYST 09/10/2024 8:50 AM PROCEDURES ANALYST us Vignesh Hawkins MD LAB BLOOD ORDERA BLES Final Result [facility] ([place]) 1 [facility] Department of Laboratories [place], [place] [id number] * Differential, auto (09/10/2024 8:47 AM PROCEDURES ANALYST) Neutrophil abs 5.3 1.5 - 6.5 K/cumm Imm gran abs 0.0 0.0 - 0.1 K/cumm [facility] ([place]) Lymphocyte abs 0.8 0.8 - 3.3 K/cumm [facility] ([place]) Monocyte abs 0.6 0.2 - 0.8 K/cumm [facility] ([place]) Eosinophil abs 0.3 0.0 - 0.5 K/cumm [facility] ([place]) Basophil abs 0.1 0.0 - 0.1 K/cumm [facility] ([place]) Neutrophil pct 74.8 % [facility] ([place]) Comment: Interpretive Data Percent cell count reference [...] revised on 2017. Blood 09/10/2024 8:47 AM PROCEDURES ANALYST 09/10/2024 8:50 AM PROCEDURES ANALYST us Vignesh Hawkins MD LAB BLOOD ORDERA BLES Final Result [facility] ([place] 1 [facility] Department of Laboratories [place], [place] [id number] * (ABNORMAL) CBC with auto differential (09/10/2024 8:47 AM PROCEDURES ANALYST) WBC 7.1 3.8 - 9.9 K/cumm Hgb [...] RDW SD 47.5 35.7 - 48.1 fL [facility] ([place]) NRBC abs 0.00 0.00 - 0.01 K/cumm [facility] ([place]) Blood 09/10/2024 8:47 AM PROCEDURES ANALYST 09/10/2024 8:50 AM PROCEDURES ANALYST Vignesh Hawkins MD LAB BLOOD ORDERA BLES Final Result [facility] 1 [facility] [place] [address] * ABO/Rh (09/10/2024 8:47 AM PROCEDURES ANALYST) [facility] ABO/Rh B Positive Blood 09/10/2024 8:47 AM PROCEDURES ANALYST 09/10/2024 8:49 AM PROCEDURES ANALYST Narrative [facility] ([place]) - 09/10/2024 9:11 AM PROCEDURES ANALYST Has the patient had Daratumumab or Isatuximab in the past 6 months?->Unknown Vignesh Hawkins MD LAB BLOOD BANK T EST ORDERABLES Final Result [facility] ([place] 1 [facility] [employer] [place] [address] * Antibody screen (09/10/2024 8:47 AM PROCEDURES ANALYST) Lonnie, indirect, Gel Interpretation Negative ABSC Blood 09/10/2024 8:47 AM PROCEDURES ANALYST 09/10/2024 8:49 AM PROCEDURES ANALYST Narrative [facility] ([place] - 09/10/2024 9:25 AM PROCEDURES ANALYST Has the patient had Daratumumab or Isatuximab in the past 6 months?->Unknown Vignesh Hawkins MD LAB BLOOD BANK T EST ORDERABLES Final Result [facility] ([place] 1 [facility] Department [place] [address] * (ABNORMAL) Comprehensive metabolic panel (09/10/2024 8:47 AM PROCEDURES ANALYST) Pathologist [facility] Sodium 133(L) 135 - 145 mmol/L Comment:sandra moreno(AMB SUrg) Potassium, pl 2.9(C) 3.3 - 4.9 mmol/L [facility] ([place]) Comment:Critical Result call ed by [email or web address] at 2024-09-10 09:18:13. Result Read Back by sandra moreno(AMB SUrg) Chloride 94(L) 97 - 110 mmol/L [facility] ([place]) Comment:sanrda moreno(AMB SUrg) CO2 25 22 - 32 mmol/L [facility] ([place]) Comment:sandra moreno(AMB SUrg) Anion gap 14 2 - 15 mmol/L [facility] ([place]) Comment:sandra moreno(AMB SUrg) BUN 12 6 - 25 mg/dL [facility] ([place]) Comment:sandra moreno(AMB SUrg) Creatinine 0.68 0.60 - 1.10 mg/dL [facility] ([place]) Comment:sandra moreno(AMB SUrg) Glucose 121 70 - 199 mg/dL [facility] ([place]) Comment: sandra moreno(AMB SUrg) Interpretive [...] Comment:sandra cisnerosr(AMB SUrg) Blood 09/10/2024 8:47 AM PROCEDURES ANALYST 09/10/2024 8:50 AM PROCEDURES ANALYST Vignesh Hawkins MD LAB BLOOD ORDERA BLES Final Result Performing Organization Address [facility] Co de Phone Number [facility] ([place]) 1 [facility] [place] [address] * ABO / Rh Confirmation Testing (09/10/2024 8:45 AM PROCEDURES ANALYST) ABO/Rh Confirmation B Positive [facility] Blood 09/10/2024 8:45 AM PROCEDURES ANALYST 09/10/2024 9:13 AM PROCEDURES ANALYST Vignesh Hawkins MD LAB BLOOD ORDERA BLES Final Result Performing Organization Address [facility]/ZIP Co de Phone Number [facility] ([place]) 1 [facility] [place] [address] [facility] * Serum Hepatitis C ab (11/01/2014 8:32 AM PROCEDURES ANALYST) HCV ab Negative NEG HISTORICAL RESULTS Serum 11/01/2014 8:32 AM PROCEDURES ANALYST Narrative HISTORICAL RESULTS - 11/02/2014 3:46 AM PROCEDURES ANALYST Interpretive Data If confirmation is required, call Laboratory Customer Service to request sample to be sent to [facility] for Hepatitis C Virus (HCV) RNA Detection and Quantitation by Real-Time Reverse Dredge Deckhand-PCR (RT-PCR). Current interpretive data was last revised on 2011 us Fariha Whitley MD LAB BLOOD ORDERABLES Final R esult HISTORICAL RESULTS * DIGITAL MAMMOGRAPHY (12/11/2013 11:01 AM CDT) Anatomical Region Laterality Modality Breast Mammography 12/11/2013 11:0 1 AM CDT Narrative 12/12/2013 12:15 AM CDT Vm Mammogram Performed by: LT Screening Mamm Bi Acc#: [id number] DATE OF EXAM: Dec 11 2013 CLINICAL [...] Performed by: LT Screening Mamm Bi Acc#: [id number] DATE OF EXAM: Dec 11 2013 CLINICAL [...] Dec 11 2013 2:27P Approved Electronically by: MRAY CRUMP M.D. on: Dec 12 201312:15A Ordering DR: DR MARIAH ADAMS Attending DR: MARIAH ADAMS Historical Provider MD MAYBERRY MAMMO PROCEDURES Kristal l Result from Last 3 Months or Most Recently Relevant to Health Maintenance [place] [employer] P[place] Advance Directives For more information, please contact: [phone] * Full Code (Latest Code Status on File) Date Activated Date Inactivated Comments 11/22/2023 6:25 PM 11/25/2023 11:09 PM * Full Code Date Activated Date Inactivated Comments 12/21/2022 5:34 PM 12/24/2022 8:16 PM * Full Code Date Activated Date Inactivated Comments 11/10/2022 4:25 PM 11/11/2022 3:51 PM * Full Code Date Activated Date Inactivated Comments 05/04/2022 1:38 PM 05/05/2022 6:47 PM Care Teams Electrical Research Engineer Relationship Specialty Start Date End Date Mariah Adams MD PCP - General Internal Medicine 08/19/20 Mitchell Zamarripa MD Referring Physician Rheumatology 03/11/22 Brit More NP Nurse Practitioner Cardiovascular Disease 03/11/22 Cliff Ronquillo NP [address] [place] [address] [address] [place] [address] Nurse Practitioner Nurse Practitioner 05/05/22 Dick Aguilar PA [address] [place] [address] [address] [place] [address] Physician Rn Post Partum Orthopedic Surgery 11/11/22 Gavin Sewell MD [address] [place] [address] [address] [place] [address] Surgeon Orthopedic Surgery 12/24/22
--- OUTSIDE RECORDS SUMMARY | 2024-11-19 14:49 | XMS_ITS | Clinical Summary ---
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 Take [...] Department Care Team Description 09/10/2024 9:16 AM SHIFT MGR Anesthesia Event [facility] Operating Room [address] [place] [address] Tonia Gutierrez MD Reynolds, Ethan Emerson, MD 09/10/2024 9:15 AM SHIFT MGR - 09/10/2024 10:45 AM SHIFT MGR Surgery [facility] Operating Room [address] [place] [address] Vignesh Hawkins MD LAPAROSCOPIC CHOLECYSTECTOMY 09/10/2024 8:13 AM SHIFT MGR - 09/10/2024 2:39 PM SHIFT MGR Hospital Encounter [facility] Operating [address] [place] [address] Vignesh Hawkins MD Calculus of gallbladder with [...] often do you attend chur ch or lutheran services? Never 12/23/2022 Do you belong to any clubs o r organizations such as buddhism groups, unions, fraternal or athletic groups, or [...] staff should administer the PHQ-9) 0 11/23/2023 [facility] [place] of Occupat ional Health - Occupational Stress [...] place to sleep or slept in a intermediate (including now)? No 12/23/2022 Personal Safety Answer Date Recorded Have you ever been in or are you currently in a harmful physical or emotional relationship or is someone making you feel afraid or unsafe? Denies 09/10/2024 Comments No Sex and Gender Information Value Date Recorded Sex Assigned at Not on file Legal Sex Female 11:50 PM SHIFT MGR Gender Identity Not on file Sexual Orientation Not on file Obstetrics History Last Filed Vital Signs Vital Sign Reading Time Taken Comments Blood Pressure 119/69 09/10/2024 2:00 PM SHIFT MGR Pulse 69 09/10/2024 2:00 PM SHIFT MGR Temperature 36.4 C (97.6 F) 09/10/2024 2:00 PM SHIFT MGR Respiratory Rate 16 09/10/2024 2:00 PM SHIFT MGR Oxygen Saturation 94% 09/10/2024 2:00 PM SHIFT MGR Inhaled Oxygen Concentration - - Weight 67.6 kg (149 lb 0.5 oz) 09/10/2024 8:15 A M SHIFT MGR Height 154.9 cm (5' 1 ) 09/10/2024 8:15 AM SHIFT MGR Body Mass Index 28.16 09/10/2024 8:15 AM SHIFT MGR Plan of Treatment Health Maintenance Due Date [...] Completed 11/01/2014 Medical Devices Implanted Type Area Corporate Buyer Device Identifier Shelf Expiration Date Model / Serial / Lot Exactech Restrictor Cement Cemex Small Od13mm Tpa-13 - [id number] Implanted:Qty: 1 on 05/04/2022 by Gavin Sewell MD at [facility] Left: Shoulder Exactech 08/28/2023 TPA-13 / / [id number] Exactech Equinoxe Reverse Shoulder +0mm Tray Humeral Adapter 320-10-00 - [id number] - [id number] Implanted:Qty: 1 on 05/04/2022 by Gavin Sewell MD at [facility] Exactech [id number] 04/07/2032 320-1000 / [id number] / Exactech Equinoxe 40mm Small Reverse Constrain Shoulder +2.5mm Liner 320-40-13 - [id number] - [id number] Implanted:Qty: 1 on 05/04/2022 by Gavin Sewell MD at [facility] Exactech 01/31/2024 320-40-13 / [id number] / Exactech Equinoxe Lock Reverse Shoulder Glenosphere Screw Bone 320-15- - [id number] - [id number] Implanted:Qty: 1 on 05/04/2022 by Gavin Sewell MD at [facility] Left: Shoulder Exactech 03/09/2027 320-15- / [id number] / Exactech Reverse Torque Define Shoulder Kit Screw 320-20-00 - [id number] - [id number] Implanted:Qty: 1 on 05/04/2022 by Gavin Sewell MD at [facility] Left: Shoulder Exactech 02/03/2027 320-20-00 / [id number] / Exactech Equinoxe Small Reverse Superior Posterior Augment Shoulder Left 320-35-07 - [id number] - [id number] Implanted:Qty: 1 on 05/04/2022 by Gavin Sewell MD at [facility] Left: Shoulder Exactech [id number] 04/08/2031 320-35-07 / [id number] / Exactech Equinoxe 10mm Stem Humeral Sterile 300-01-10 - [id number] - [id number] Implanted:Qty: 1 on 05/04/2022 by Gavin Sewell MD at [facility] Left: Shoulder Exactech [id number] 09/07/2031 300-10 / [id number] / [employer] Cement Bone Simplex Gentamicin High Viscosity 40gm 6195-1-001 - [id number] Implanted:Qty: 1 on 05/04/2022 by Gavin Sewell MD at [facility] Left: Shoulder [employer] 09/28/2023 6195-1-001 / / [id number] Exactech Equinoxe 40mm 24.3mm Small Reverse Shoulder Sphere Glenoid 320-31-40 - [id number] - [id number] Implanted:Qty: 1 on 05/04/2022 by Gavin Sewell MD at [facility] Left: Shoulder Exactech [id number] 12/11/2030 320-31-40 / [id number] / Exactech Equinoxe 4.5mm 38mm Kit Compression Lock Cap Reverse Shoulder 320-20-38 - [id number] - [id number] Implanted:Qty: 1 on 05/04/2022 by Gavin Sewell MD at [facility] Left: Shoulder Ex[employer]ech [id number] 01/12/2027 320-20-38 / [id number] / Exactech Equinoxe 4.5mm 34mm Kit Compression Lock Cap Reverse Shoulder 320-20-34 - [id number] - [id number] Implanted:Qty: 1 on 05/04/2022 by Gavin Sewell MD at [facility] Left: Shoulder Exactech [id number] 07/14/2026 320-20-34 / [id number] / [employer] Insert Tibial Knee Fixed Lm Posterior Stabilized Attune 7mm Size 5 Polyethylene [id number] - [id number] Implanted:Qty: 1 on 11/10/2022 by Gavin Sewell MD at [facility] Left: Knee [employer] 07/28/2030 [id number] / / [id number] [employer] Attune Cruciate Retain Cementless Knee Left 5 Component Femoral [id number] - [id number] Implanted:Qty: 1 on 11/10/2022 by Gavin Sewell MD at [facility] Left: Knee [employer] 04/28/2032 [id number] / / [id number] [employer] Attune Fb Tib Base Sz 5 Por [id number] - [id number] Implanted:Qty: 1 on 11/10/2022 by Gavin Sewell MD at [facility] Left: Knee [employer] 03/28/2032 [id number] / / [id number] Procedures Procedure Name Priority Date/Time Associated Diagnosis Comments SURGICAL PATHOLOGY Routine 09/10/2024 10 :29 AM SHIFT MGR Calculus of gallbladder with cholecystitis without biliary obstruction, unspecified cholecystitis acuity VA AN ELECTIVE ENDOTRACHEAL AIRWAY Routine 09/10/2024 9:36 AM SHIFT MGR LAPAROSCOPIC CHOLECYSTECTOMY 09/10/2024 9:02 AM SHIFT MGR Calculus of gallbladder with cholecystitis without biliary obstruction, unspecified cholecystitis acuity EGFR STAT 09/10/2024 8:47 AM SHIFT MGR DIFFERENTIAL AUTO STAT 09/10/2024 8:4 7 AM SHIFT MGR ANTIBODY SCREEN STAT 09/10/2024 8:47 AM SHIFT MGR ABO/RH STAT 09/10/2024 8:47 AM SHIFT MGR TYPE AND SCREEN STAT 09/10/2024 8:47 AM SHIFT MGR CBC WITH AUTO DIFFERENTIAL STAT 09/10/2024 8:47 AM SHIFT MGR COMPREHENSIVE METABOLIC PANEL STAT 09/10/2024 8:47 AM SHIFT MGR B ABO / RH CONFIRMATION TESTING STAT 09/10/2024 8:45 AM SHIFT MGR SERUM HEPATITIS C AB Routine 11/01/2014 8:32 AM SHIFT MGR DIGITAL MAMMOGRAPHY Routine 12/11/2013 1 1:01 AM CDT from Last 3 Months or Most Recently Relevant to Health Maintenance Results * Surgical pathology (09/10/2024 10:29 AM SHIFT MGR) Tissue (Gallbladder) 09/10/2024 9:51 AM SHIFT MGR Narrative PATHOLOGY [facility] ([place]) - 09/11/2024 3:50 PM SHIFT MGR EPIC results best viewed via link to PDF [facility] Department of Pathology [address] [place] [id number] Note to Patients: This report may contain [...] Final Report Patient Name: ANTOINETTE DELANEY Address: [address] [place], [place] [id number] Gender: F : 1960 (Age: 64) Service: Surgery Location: [facility] Hospital #: [id number] Patient Type: [facility] Taken: 09/10/2024 Received: 09/10/2024 Accessioned: [...] determined by the Surgical Pathology Department at [facility] as part of an ongoing quality engineer program and in compliance with federally mandated [...] characteristics determined by the Surgical Pathology Department [facility]. It has not been cleared or approved by the U. S. Food and Drug Administration. Note for decalcified specimens: This assay has not been validated on decalcified tissues. Results should be interpreted with caution given the possibility of false negativity on decalcified specimens us Vignesh Hawkins MD LAB PATHOLOGY OR DERABLES Final Result PATHOLOGY [facility] ([address] [address] * VA AN ELECTIVE ENDOTRACHEAL AIRWAY (09/10/2024 9:36 AM SHIFT MGR) Cliff [place] CRNA - 09/10/2024 9:36 AM SHIFT MGR Cliff Davis CRNA 09/10/2024 9:37 AM Airway [...] nal Result * eGFR (09/10/2024 8:47 AM SHIFT MGR) eGFR >90 >=60 mL/min/1. 73 m2 Comment: [...] last reviewed 2021. Blood 09/10/2024 8:47 AM SHIFT MGR 09/10/2024 8:50 AM SHIFT MGR us Vignesh Hawkins MD LAB BLOOD ORDERA BLES Final Result [facility] ([place]) [facility] Department of Laboratories [place], [place] [id number] * Differential, auto (09/10/2024 8:47 AM SHIFT MGR) Neutrophil abs 5.3 1.5 - 6.5 K/cumm [...] revised on 2017. Blood 09/10/2024 8:47 AM SHIFT MGR 09/10/2024 8:50 AM SHIFT MGR us Vignesh Hawkins MD LAB BLOOD ORDERA BLES Final Result [facility] ([place]) [facility] Department [place] [address] * (ABNORMAL) CBC with auto differential (09/10/2024 8:47 AM SHIFT MGR) WBC 7.1 3.8 - 9.9 K/cumm Hgb [...] [facility] ([place]) Blood 09/10/2024 8:47 AM SHIFT MGR 09/10/2024 8:50 AM SHIFT MGR Vignesh Hawkins MD LAB BLOOD ORDERA BLES Final Result Performing Organization Address City/[facility]/RUST de Phone Number [facility] ([place]) [address] [facility] Department [place] [address] * ABO/Rh (09/10/2024 8:47 AM SHIFT MGR) ABO/Rh B Positive Blood 09/10/2024 8:47 AM SHIFT MGR 09/10/2024 8:49 AM SHIFT MGR Narrative [facility] ([place]) - 09/10/2024 9:11 AM SHIFT MGR Has the patient had Daratumumab or Isatuximab in the past 6 months?->Unknown Vignesh Hawkins MD LAB BLOOD BANK T EST ORDERABLES Final Result [facility] ([place]) [facility] Department [place] [address] * Antibody screen (09/10/2024 8:47 AM SHIFT MGR) Pathologist [facility] Lonnie, indirect, Gel Interpretation Negative ABSC Blood 09/10/2024 8:47 AM SHIFT MGR 09/10/2024 8:49 AM SHIFT MGR Narrative [facility] ([place]) - 09/10/2024 9:25 AM SHIFT MGR Has the patient had Daratumumab or Isatuximab in the past 6 months?->Unknown Vignesh Hawkins MD LAB BLOOD BANK T EST ORDERABLES Final Result Performing Organization Address City/[facility]/ZIP Co de Phone Number [facility] ([place]) 1 [facility] [place] [address] * (ABNORMAL) Comprehensive metabolic panel (09/10/2024 8:47 AM SHIFT MGR) [facility] Sodium 133(L) 135 - 145 mmol/L Comment:sandra moreno(AMB SUrg) Potassium, pl 2.9(C) 3.3 - 4.9 mmol/L [facility] ([place]) Comment:Critical Result call ed by [email or web address] at 2024-09-10 09:18:13. Result Read Back by sandra moreno(AMB SUrg) Chloride 94(L) 97 - 110 mmol/L [facility] ([place]) Comment:sandra cisnerosr(AMB SUrg) CO2 25 22 - 32 mmol/L [facility] ([place]) Comment:sandra cisnerosr(AMB SUrg) Anion gap 14 2 - 15 mmol/L [facility] ([place]) Comment:sandra cisnerosr(AMB SUrg) BUN 12 [...] Comment:sandra cisnerosr(AMB SUrg) Blood 09/10/2024 8:47 AM SHIFT MGR 09/10/2024 8:50 AM SHIFT MGR Vignesh Hawkins MD LAB BLOOD ORDERA BLES Final Result [facility] ([place]) 1 [facility] Department of Laboratories [place], [place] [id number] * ABO / Rh Confirmation Testing (09/10/2024 8:45 AM SHIFT MGR) ABO/Rh Confirmation B Positive [facility] Blood 09/10/2024 8:45 AM SHIFT MGR 09/10/2024 9:13 AM SHIFT MGR Vignesh Hawkins MD LAB BLOOD ORDERA BLES Final Result [facility] ([place]) 1 [facility] Department [place] [address] [facility] * Serum Hepatitis C ab (11/01/2014 8:32 AM SHIFT MGR) HCV ab Negative NEG HISTORICAL RESULTS Serum 11/01/2014 8:32 AM SHIFT MGR Narrative HISTORICAL RESULTS - 11/02/2014 3:46 AM SHIFT MGR Interpretive Data If confirmation is required, call Laboratory Customer Service to request sample to be sent to [facility] for Hepatitis C Virus (HCV) RNA Detection and Quantitation by Real-Time Reverse Pvc Monitor-PCR (RT-PCR). Current interpretive data was last revised on 2011 us Fariha Whitley MD LAB BLOOD ORDERABLES Final R esult HISTORICAL RESULTS * DIGITAL MAMMOGRAPHY (12/11/2013 11:01 AM CDT) Anatomical Region Laterality Modality Breast Mammography 12/11/2013 11:0 1 AM CDT Narrative 12/12/2013 12:15 AM CDT Vm Mammogram Performed by: LT Screening Mamm Bi Acc#: [id number] DATE OF EXAM: Dec 11 2013 CLINICAL [...] Performed by: LT Screening Mamm Bi Acc#: [id number] DATE OF EXAM: Dec 11 2013 CLINICAL [...] Read on: Dec 11 201311:01A Transcribed by: [email or web address] On: Dec 11 2013 2:27P Approved Electronically by: MARY CRUMP M.D. on: Dec 12 201312:15A Ordering DR: DR MARIAH ADAMS Attending DR: MARIAH ADAMS Historical Provider IMG MAMMO PROCEDURES Kristal l Result from Last 3 Months or Most Recently Relevant to Health Maintenance Insurance [place] [employer] PPO Advance Directives For more information, please contact: [phone] * Full Code (Latest Code Status on File) Date Activated Date Inactivated Comments 11/22/2023 6:25 PM 11/25/2023 11:09 PM * Full Code Date Activated Date Inactivated Comments 12/21/2022 5:34 PM 12/24/2022 8:16 PM * Full Code Date Activated Date Inactivated Comments 11/10/2022 4:25 PM 11/11/2022 3:51 PM * Full Code Date Activated Date Inactivated Comments 05/04/2022 1:38 PM 05/05/2022 6:47 PM Care Teams Pharmaceutical Representative Relationship Specialty Start Date End Date Mariah Adams MD PCP - General Internal Medicine 08/19/20 Mitchell Zamarripa MD Referring Physician Rheumatology 03/11/22 Brit More NP Nurse Practitioner Cardiovascular Disease 03/11/22 Cliff Ronquillo NP [address] [place] [address] [address] [place] [address] Nurse Practitioner Nurse Practitioner 05/05/22 Dick Aguilar PA [address] [place] [address] [address] [place] [address] Physician Construction Electrician Orthopedic Surgery 11/11/22 Gavin Sewell MD [address] [place] [address] [address] [place] [address] Surgeon Orthopedic Surgery 12/24/22
--- OUTSIDE RECORDS SUMMARY | 2024-11-19 14:49 | XMS_ITS | Clinical Summary ---
Author Organization [facility] Address [address] [place] [address] Care Team Providers Care Telephone Services Sales Representative Name Role Phone Yg Lee MD Primary Care Provider [phone] Allergies Active Allergy Reactions Criticality Noted Date [...] mg tablet 1 time daily as needed. 01/10/20 18 Active omega-3 acid ethyl esters (Lovaza) 1 gram Capsule Take 2 Capsules (2 Grams) by mouth 2 times daily with meals. 360 Capsule 3 10/17/19 Active Additional Information Patient not taking.Reported on 10/26/2022 omeprazole (PriLOSEC) 20 mg Capsule, Delayed Release(E.C.) TAKE 1 CAPSULE BY MOUTH EVERY DAY 90 Capsule 3 10/20/19 Active hydrOXYchloroQUINE (PLAQUENIL) 200 mg tablet TAKE 1 TABLET BY MOUTH TWICE DAILY 08/15/20 Active nitroglycerin (NITROSTAT) 0.4 mg Tablet, Sublingual 09/11/19 Active dexlansoprazole (Dexilant) 60 mg Delayed Release capsule Lot: [id number] Ex: 10/21 Qty: 8 5 Capsule 10/20/19 Active Additional Information Patient not taking.Reported on 12/01/2023 amLODIPine (NORVASC) 10 mg tablet Take 10 mg by mouth. 12/26/19 Active carvediloL (COREG) 25 mg tablet Take 25 mg by mouth. 12/26/19 Active fluticasone propionate (Flovent HFA) 220 mcg/actuation HFA Aerosol Inhaler USE 2 PUFFS BY MOUTH TWICE A DAY 36 Gram 3 03/10/20 Active Additional Information Patient not taking.Reported on 12/01/2023 ondansetron (ZOFRAN ODT) 4 mg Tablet, Rapid Dissolve DISSOLVE ONE TABLET UNDER THE TONGUE EVERY 8 HOURS NEEDED FOR NAUSEA 45 Tablet 05/19/20 Active Additional Information Patient not taking.Reported on 04/05/2024 fluticasone propionate (FLONASE) 50 mcg/spray [place], Suspension nasal inhaler USE 1 OR 2 SPRAYS IN EACH NOSTRIL DAILY 48 mL 1 06/08/20 21 Active alendronate (FOSAMAX) 70 mg tablet TAKE 1 TABLET (70 MG) BY MOUTH EVERY 7 DAYS. EMPTY STOMACH BEFORE OTHER MEDS,WITH 8OZ OF WATER, STAY UPRIGHT 30 MIN 12 Tablet 2 07/06/20 21 Active lisinopril-hydroCH LOROthiazide (ZESTORETIC) 20-12.5 mg tablet Take 1 Tablet by mouth 2 times daily. 180 Tablet 3 09/17/19 Active Additional Information Patient not taking.Reported on 12/01/2023 tiotropium-olodate roL (STIOLTO RESPIMAT) 2.5-2.5 mcg/actuation metered inhaler Take 2 Puffs by inhalation daily. 4 Gram 2 10/29/19 Active Additional Information Patient not taking.Reported on 10/26/2022 oxyCODONE-acetamin ophen (PERCOCET) 10-325 mg Tablet Take 1 Tablet by mouth every 4 hours as needed. 04/21/20 Active famotidine (PEPCID) 20 mg tablet TAKE 1 TABLET(20 MG) BY MOUTH TWICE DAILY 180 Tablet 1 06/10/20 Active Additional Information Patient not taking.Reported on 12/01/2023 ibandronate (BONIVA) 150 mg tabletIndications: Other osteoporosis without current pathological fracture TAKE 1 TABLET(150 MG) BY MOUTH EVERY 30 DAYS 3 Tablet 1 08/06/20 Active Additional Information Patient not taking.Reported on 10/26/2022 lidocaine (LIDODERM) 5 % Adhesive Patch, Medicated Apply 1 Patch to affected area every 24 hours. 30 Patch 3 09/01/19 Active oxyCODONE (ROXICODONE) 5 mg tabletIndications: Psoriatic arthritis (CMS/HCC) Take 1 Tablet (5 mg) by mouth every 4 hours as needed for Pain. Max Daily Amount: 30 mg 60 Tablet 09/01/19 Active Additional Information Patient not taking.Reported on 10/26/2022 amLODIPine (NORVASC) 5 mg tablet Take 5 mg by mouth daily. 08/23/20 Active sennosides 8.6 mg-docusate sodium 50 mg tablet Take 1 Tablet by mouth. 12/25/19 Active naloxone 4 mg/actuation nasal spray 11/12/19 Active ascorbic acid (vitamin C) 500 mg chewable tablet Take 500 mg by mouth 2 times daily. 12/25/19 Active isosorbide mononitrate (IMDUR) 30 mg Extended Release 24 hour tablet Take 1 Tablet by mouth daily. 07/26/20 Active icosapent ethyL (VASCEPA) 1 gram Capsule Take 2 Capsules (2 Grams) by mouth 2 times daily with meals. 360 Capsule 3 08/26/20 Active Additional Information Patient not taking.Reported on 12/01/2023 evolocumab (Repatha SureClick) 140 mg/mL Pen Injector Inject contents of one pen (140 mg) under the skin every 2 weeks. 6 mL 3 08/26/20 23 Active Additional Information Patient not taking.Reported on 12/01/2023 aspirin (ECOTRIN EC) 81 mg Tablet, Delayed Release (E.C.)Indications: Frequent PVCs,Essential hypertension, benign,Other hyperlipidemia,Con nective tissue disease overlap syndrome take 2 tablets by mouth daily 180 Tablet 3 09/14/19 24 Active apixaban (ELIQUIS) 5 mg tablet Take 5 mg by mouth 2 times daily. 11/25/19 24 Active diltiaZEM (CARDIZEM CD) 240 mg Controlled Delivery 24 hour capsule 11/28/19 24 Active methocarbamoL (ROBAXIN) 500 mg tablet 09/01/19 24 Active metoprolol succinate (TOPROL XL) 50 mg Extended Release 24 hour tablet Take 50 mg by mouth daily. 11/25/19 24 Active celecoxib (CeleBREX) 200 mg capsule TAKE 1 CAPSULE(200 MG) BY MOUTH TWICE DAILY 180 Capsule 3 02/21/20 24 Active metoclopramide HCl (REGLAN) 10 mg tablet TAKE 1 TABLET(10 MG) BY MOUTH TWICE DAILY 180 Tablet 3 02/21/20 24 Active Additional Information Patient not taking.Reported on 04/05/2024 rosuvastatin (CRESTOR) 5 mg tablet take 1 tablet by mouth every day 90 Tablet 3 03/22/20 24 Active diltiaZEM (DILACOR XR) 240 mg Extended Release capsule Take 1 Capsule (240 mg) by mouth daily. 90 Capsule 3 04/05/20 24 Active amoxicillin-clavul anate (AUGMENTIN) 875-125 mg tablet Take 1 Tablet by mouth every 12 hours. 20 Tablet 04/05/20 24 Active apixaban (ELIQUIS) 5 mg tablet Lot: [id number] ex: 05/2025 qty: 8 14 Tablet 04/12/20 24 Active levothyroxine 100 mcg tabletIndications: Other specified hypothyroidism TAKE 1 TABLET(100 MCG) BY MOUTH DAILY IN THE MORNING 90 Tablet 3 04/16/20 24 Active ALPRAZolam (XANAX) 0.25 mg tabletIndications: Other specified anxiety disorders TAKE 1 TABLET(0.25 MG) BY MOUTH TWICE DAILY 40 Tablet 3 05/24/20 24 Active digoxin (LANOXIN) 125 mcg (0.125 mg) tablet Take 1 Tablet (125 mcg) by mouth daily. 90 Tablet 3 06/18/20 24 Active ezetimibe (ZETIA) 10 mg tablet TAKE 1 TABLET(10 MG) BY MOUTH DAILY 90 Tablet 3 07/14/20 24 Active DULoxetine (CYMBALTA) 60 mg Capsule, Delayed Release(E.C.)Indic ations:Other specified anxiety disorders TAKE 1 CAPSULE BY MOUTH DAILY 90 Capsule 3 08/16/20 24 Active apixaban (ELIQUIS) 5 mg tablet Take 1 Tablet (5 mg) by mouth 2 times daily. 180 Tablet 3 08/16/20 24 Active losartan-hydroCHLO ROthiazide (HYZAAR) 100-25 mg tabletIndications: Essential hypertension, benign TAKE 1 TABLET BY MOUTH DAILY 90 Tablet 3 09/19/19 25 Active omeprazole (PriLOSEC) 40 mg Capsule, Delayed Release(E.C.)Indic ations:Gastroesoph ageal reflux disease without esophagitis TAKE 1 CAPSULE(40 MG) BY MOUTH DAILY 90 Capsule 3 10/15/19 25 Active Active Problems Patient Care Coordination No te Formatting of this note migh t be different from the original. [facility] [id number] 09/01/22 Problem Noted Date Diagnosed Date Pulmonary [...] Encounters Date Type Department Care Team Description 11/13/[address] [place] [address] Yg Lee MD Needs Orders Written 11/05/2024 External Device Data ST[facility] ABSTRACTION Provider, Abstract 10/17/2024 External Device Data [facility] ABSTRACTION Provider, Abstract 10/15/[address] [place] [phone] Yg Lee MD Gastroesophageal reflux disease without esophagitis 10/12/[address] [place] [address] Provider, Abstract 10/05/[address] [place] [address] Yg Lee MD Needs Appointment 09/20/2024 External Device Data [facility] ABSTRACTION Provider, Abstract 09/19/[address] [place] [phone] Yg Lee MD Essential hypertension, benign 09/11/2024 External Device Data [facility] ABSTRACTION Provider, Abstract 08/21/[address] [address] [place] [phone] Provider, Abstract from Last 3 Months Immunizations Immunization Administration Dates Next Due (ADACEL/BOOSTRIX)(10 YR UP) TDAP VACCINE, 0.5ML, IM 06/15/2011 (PFIZER)(12 YR UP) COVID-19 VACCINE - EMERGENCY USE AUTHORIZATION, MRNA, [id number](PF) 30 MCG/0.3 ML IM SUSP 04/22/2021,04/01/2021 (PNEUMOVAX 23)(50 YRS UP) PN EUMOCOCCAL POLYSACCHARIDE (PPV23) 0.5 ML, IM 07/18/2017,06/15/2011 (PREVNAR 13)(6 WKS UP) PNEUM OCOCCAL CONJUGATE (PCV13) 0.5 ML, IM 10/20/2020 (PREVNAR 20)(6 WKS UP) PNEUM OCOCCAL CONJUGATE VACCINE 20-VALENT (PCV20), POLYSACCHARIDE [id number] CONJUGATE, ADJUVANT 0.5 ML (PF) IM 02/23/2023 [...] on file Legal Sex Female 6:04 AM 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 [address] [place] [address] Yg Lee MD [address] [place] [address] [address] [place] [address] Health Maintenance Due Date Last Done Comments ZOSTER VACCINE (1 of 2) 1981 FIT-DNA Q 3 years 2007 FIT/ DNA Q 3 YEARS (AUTO ORDER) 2007 FIT/FOBT Q 1 YEAR (AUTO ORDER) 2007 FIT/FOBT Q 1 year 2007 FLEX SIG/CT COLONOGRAPHY Q 5 YEARS (AUTO ORDER) 2007 Flex Sig/CT Colonography Q 5 years 2007 COVID-19 Vaccine (3 - Pfizer risk series) [...] BREAST CANCER SCREENING 05/16/2025 05/16/20 24, 10/08/2022, 10/08/2022, Additional history exists COLORECTAL CANCER SCREENING (AUTO ORDER) 04/22/2026 04/22/2016, 11/01/2011 COLORECTAL SCREENING 04/22/2026 04/22/2016, 11/01/2011, 11/01/2011 Colorectal Cancer Screening (AUTO ORDER) 04/22/2026 Colorectal Cancer Screening 04/22/2026 Pre-Diabetes and Diabetes Screening 06/15/2027 06/15/2024, 08/24/2023, 08/11/2021, Additional history exists Medical Devices Implanted Type Area Flying Squad Salesperson Device Identifier Shelf Expiration Date Model / Serial / Lot Stent Pncrtc Frmn Flx 5fr 5cm 6552 - [id number] Implanted:Qty: 1 on 02/24/2018 by John White MD at [facility] Stent N/A: Pancreas [employer] [id number] 09/29/2022 [id number] / / [id number] Procedures Procedure Name Priority Date/Time Associated Diagnosis Comments HEMOGLOBIN A1C Routine 06/15/2024 9:16 AM CDT Abnormal glucose MAMMO 3D KIRILL SCREEN BILAT W OR WO CAD Routine 05/16/2024 1:15 PM CDT Screening mammogram, encounter for from Last 3 Months or Most Recently Relevant to Health Maintenance Results * HEMOGLOBIN A1C (06/15/2024 9:16 AM CDT) HEMOGLOBIN A1C 5.2 <5.7 % of total Hgb [facility] Comment: For the purpose of screening for the presence of diabetes: <5.7% Consistent with the absence of diabetes 5.7-6.4% Consistent with increased risk for diabetes (prediabetes) > or =6.5% Consistent with diabetes This assay result is consistent with a decreased risk of diabetes. Currently, no consensus exists regarding use of hemoglobin A1c for diagnosis of diabetes in children. According to [place] Diabetes Association (ADA) guidelines, hemoglobin A1c <7.0% represents optimal control in non- diabetic patients. Different metrics may apply to specific patient populations. Standards of Medical Care in Diabetes(ADA). ESTIMATED AVERAGE GLUCOSE (MG/DL) 103 mg/dL [facility] ESTIMATED AVERAGE GLUCOSE (MMOL/L) 5.7 mmol/L [employer] Comment: FASTING:YES FASTING: YES Test Performed at: [facility] [place] [address] [place] [address] Chikis-Valerie Dasilva Blood 06/15/2024 9:16 AM CDT 06/15/2024 9:17 AM CDT us Yg Lee MD CHEMISTRY ORDERABLES Final Re sult [facility] [phone] [place] [address] [place] [address] * MAMMO 3D KIRILL SCREEN BILAT W [...] BI-RADS CATEGORY 1 - Negative. DICTATION LOCATION: [facility] Yg Lee MD MAMMO ORDERABLES Final Result from Last 3 Months or Most Recently Relevant to Health Maintenance Insurance RX [employer] RX Member Subscriber Plan / Payer (Ef fective 2020-Present) Name:Antoinette Da Silva Relation to Subscriber:Self Name:Antoinette Da Silva Payer ID:Not on file Type:RX Commercial Address: [address] Advance Directives For more information, please contact: [phone] Documents on File Type Date Recorded Patient Address Change Clerk Expl anation Advance Directive Living Will 10/20/2020 [...] 12:41 PM 10/31/2015 7:49 PM Care Teams Telephone Services Sales Representative Relationship Specialty Start Date End Date Yg Lee MD PCP - General Internal Medicine 12/20/18
--- OUTSIDE RECORDS SUMMARY | 2024-11-19 14:49 | XMS_ITS | Encounter Summary ---
Author Organization [facility] Healthcare Address [address] [place] [address] Care Team Providers Care Loader Technician Name Role Phone Yg Lee MD Primary Care Provider + Mitchell Zamarripa MD Unavailable [phone] Brit More NP Unavailable [phone] Cliff Ronquillo NP Unavailable [phone] Dick Aguilar Unavailable [phone] Gaivn Sewell MD Unavailable [phone] Encounter Details Date Type Department Care Team (Late st Contact Info) Description 12/14/2021 Telephone [facility] [address] [place] [address] Fariha Hampton, RT Social History Tobacco Use Types Packs/Day Years Used Date Smoking Tobacco: Former Smokeless Tobacco: Never Alcohol Use Standard Drinks/Week Comments Yes 0 (1 standard drink = 0.6 oz pur e alcohol) occasional Comments No Sex and Gender Information Value Date Recorded Sex Assigned at Not on file 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 Female 11:50 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 Gender Identity Not on file Sexual Orientation [...] COVID: Suspected 07/22/2024 07/22/2024 07/22/2024 9:25 AM GLASSWORKER documented as of this encounter Care Teams Loader Technician Relationship Specialty Start Date End Date Yg Lee MD PCP - General Internal Medicine 08/19/20 Mitchell Zamarripa MD Referring Physician Rheumatology 03/11/22 Brit More NP Nurse Practitioner Cardiovascular Disease 03/11/22 Cliff Ronquillo NP [address] [place] [address] [address] QU[address] [facility] [place] [address] Nurse Practitioner Nurse Practitioner 05/05/22 Dick Aguilar PA [address] [place] [address] DR QUINTER[address] [facility] [place] [address] Physician Tobacco Packing Machine Operator Orthopedic Surgery 11/11/22 Gavin Sewell MD [address] [place] [address] DR CARLOS QUINTERO [address] [place] [address] Surgeon Orthopedic Surgery 12/24/22 documented as of this encounter
--- OUTSIDE RECORDS SUMMARY | 2024-11-19 14:50 | XMS_ITS | Encounter Summary ---
Author Organization [facility] Address [address] [place] [address] Care Team Providers Care Projects Manager Name Role Phone Yg Lee MD Primary Care Provider [phone] Shandra Ruffin APRN-[facility] Primary Care Provider Yg Lee MD Primary Care Provider [phone] Shandra Ruffin APRN-[facility] Primary Care Provider Yg Lee MD Primary Care Provider [phone] Shandra Ruffin APRN-[facility] Primary Care Provider Encounter Details Date Type Department Care Team (Late st Contact Info) Description 05/18/2019 Telephone [facility] [address] [place] [address] Mitchell Zamarripa MD [address] [place] [address] [place] [address] Social History Tobacco Use Types [...] a call. [place] Patient Call Back number: [phone]. documented in this encounter Plan of Treatment Not on file documented as of this encounter Visit Diagnoses Not on filedocumented in this encounter Care Teams Projects Manager Relationship Specialty Start Date End Date Yg Lee MD [address] [place] [address] PCP - General 10/28/11 05/23/19 Shandra Ruffin APRN-[facility] [address] [place], [place] [phone] PCP - General 05/24/19 07/20/20 Yg Lee MD [address] [place], [place] [phone] PCP - General Internal Medicine 07/21/20 07/21/20 Shandra Ruffin APRN-[facility] [address] [place], [place] [phone] PCP - General 07/22/20 11/15/21 Yg Lee MD [address] [place] [phone] PCP - General Internal Medicine 11/16/21 04/01/22 Shandra Ruffin APRN-[facility] [address] [place], [place] [phone] PCP - General 04/02/22 documented as of this encounter
--- OUTSIDE RECORDS SUMMARY | 2024-11-19 14:50 | XMS_ITS | Clinical Summary ---
Author Organization [facility] Address [address] [place] [address] Phone Care Team Providers Care Squirt Machine Operator Name Role Phone JAM MCDONNELL PA-C Primary Care Provider [phone] Reason for Visit and Chief Complaint ECHOCARDIOGRAM [...] Check-Out Time Diagnosis ECHOCARDIOGRAM [place] GROVER MD [facility] OP HRT 08/02/20 23 8:35AM 9:29AM Insurance Includes: Active Insurance Policies Plan Name Member ID Group # Subscriber Relationship Effect cyn Dates 1 - [place] [employer]AGE [id number] NIGHAT DELANEY Self Clinical Notes Includes: Clinical Notes from this encounter No Clinical Notes Recorded
--- OUTSIDE RECORDS SUMMARY | 2024-11-19 14:50 | XMS_ITS | Clinical Summary ---
Author Organization [facility] Address [address] [place] [address] Phone Care Team Providers Care Commercial Shrimping Captain Name Role Phone JAM MCDONNELL PA-C Primary Care Provider [phone] Reason for Visit and Chief Complaint LEXISCAN [...] Time Diagnosis LEXISCAN CARDIOLITE [place] GROVER MD [facility] OP [facility]RT 08/02/20 23 9:30AM 11:24AM Insurance Includes: Active Insurance Policies Plan Name Member ID Group # Subscriber Relationship Effect cyn Dates 1 - [employer] ADVANTAGE [id number] NIGHAT DELANEY Self Clinical Notes Includes: Clinical Notes from this encounter No Clinical Notes Recorded
--- OUTSIDE RECORDS SUMMARY | 2024-11-19 14:50 | XMS_ITS | Encounter Summary ---
Author Organization [facility] Healthcare Address [address] [place] [address] Care Team Providers Care Lump Room Supervisor Name Role Phone Jose Cruz Ledezma Primary Care Provider Yg Lee MD Primary Care Provider + Mitchell Zamarripa MD Unavailable [phone] Brit More WATER CHEMIST Unavailable [phone] Cliff Ronquillo NP Unavailable [phone] Dick Aguilar Unavailable [phone] Gavin Sewell MD Unavailable [phone] Reason for Visit * Reason Onset Date Comments Scheduling Appointments 03/24/2020 Called f or DEXA appointment reminder Encounter Details Date Type Department Care Team (Late st Contact Info) Description 03/24/2020 Telephone [facility] [address] [place] [address] Valencia Hernandez RT Scheduling Appointments (Called for DEXA appointment reminder) Social History Tobacco Use Types Packs/Day Years Used Date Smoking Tobacco: Former Smokeless Tobacco: Never Alcohol Use Standard Drinks/Week Comments Yes 0 (1 standard drink = 0.6 oz pur e alcohol) occasional Comments No Sex and Gender Information Value Date Recorded Sex Assigned at Not on file Legal Sex Female 11:50 PM 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 Gender Identity Not on file Sexual Orientation [...] COVID: Suspected 07/22/2024 07/22/2024 07/22/2024 9:25 AM 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 documented as of this encounter Care Teams Lump Room Supervisor Relationship Specialty Start Date End Date Jose Cruz Ledezma PA [address] [place] [address] PCP - General 01/24/20 08/18/20 gY Lee MD [address] [place] [address] PCP - General Internal Medicine 08/19/20 Mitchell Zamarripa MD [address] [place] [address] Referring Physician Rheumatology 03/11/22 Brit More NP [address] [place] [address] Nurse Practitioner Cardiovascular Disease 03/11/22 Cliff Ronquillo NP [address] [place] [address] [address] [place] [address] Nurse Practitioner Nurse Practitioner 05/05/22 Dick Aguilar PA [address] [place] [address] [address] [place] [address] Physician Feather Drying Machine Operator Orthopedic Surgery 11/11/22 Gavin Sewell MD [address] [facility] [address] GONZALEZ B [facility] [address] [place] [address] Surgeon Orthopedic Surgery 12/24/22 documented as of this encounter
--- OUTSIDE RECORDS SUMMARY | 2024-11-19 14:50 | XMS_ITS | Clinical Summary ---
Author Organization [facility] Address [address] [place] [address] Phone Care Team Providers Care Project Mgr Name Role Phone Jose Cruz Ledezma Primary Care Provider [phone] Allergies Active Allergy Reactions Criticality Noted Date [...] 1962 Zoster Immunization (1 of 2) 1981 Colonoscopy 2007 Colorectal Cancer Screening 2007 Cologuard 2012 Immunochemical Fecal Occult Blood 2012 Pneumococcal Immunization (5 0+ years) (1 [...] age to complete this topic Insurance MEDICARE [employer] GENERIC Care Teams Project Mgr Relationship Specialty Start Date End Date Jose Cruz Ledezma PAC [address] [place] [id number] PCP - General Physician Soils Analyst 01/28/20
== END 2024-11-19 13:01 | disposition home or self-care (01) ==
LOC: ANHBWCIMG 13:01
PROVIDERS: PCP Internal Medicine; Visit Provider Orthopaedic Surgery
DX: S52.501D Unspecified fracture of the lower end of right radius, subsequent encounter for closed fracture with routine healing (principal); S52.691D Other fracture of lower end of right ulna, subsequent encounter for closed fracture with routine healing; X58.XXXD Exposure to other specified factors, subsequent encounter; T84.19 Other mechanical complication of internal fixation device of bones of limb
CPT/HCPCS: 73110

== ENCOUNTER 2024-11-23 00:11 | Day surgery (SDC) | payer OTHER, SELFPAY ==
[2024-11-21 08:42] VITALS: BMI 27.3
--- NOTE | 2024-11-21 08:48 | PC.NURSE ---
Addendum entered by Juan Wiley RN 11/21/24 09:01: Patient says she hasn't taken Eliquis for over a month. Original Note: Report to the Outpatient Waiting Room, entrance under the green pavilion located off [facility], at time _1000_ on date _[id number]_. Planned Procedure Time: _1200_.? Time changes happen often and if your time is changed the preop area will call you the afternoon before. - You and your visitor will be asked to self-screen and do not enter if you have any COVID symptoms. Please call surgeon if you need to reschedule. - A mask is optional within the hospital at this time. Patients may have clear liquids (water, carbonated beverages, clear teas, apple juice) until 3 hours prior to surgery with a maximum of 20 ounces. - No food from midnight until time of surgery and no smoking, or chewing tobacco (or any form of nicotine). No chewing gum, candy or mints. Take only the following medications with a SIP of water on the morning of surgery: __Carvidilol, Digoxin, Diltiazem, Duloxetine, Isosorbide, Levothyroxine and if needed Alprazolam and or Oxycodone___ DO NOT STOP ANY OF YOUR OTHER PRESCRIPTION MEDICATIONS PRIOR TO SURGERY EXCEPT THE FOLLOWING Hold all vitamins and supplements for 3 days per anesthesiologist. Medications to discontinue per physician __Patient is holding Celebrex and Ibuprofen already. Date to take last dose Please no make-up, nail turkish, hairspray, perfume, deodorant, or body powder the day of surgery.? No jewelry (including any body piercings) or valuables the day of surgery, leave them at home.? Please take a shower or bath the night before, or the morning of, surgery with an antibacterial soap.? Wear comfortable, loose fitting clothing.? - Jewelry must be removed prior to entering the operating room.? Rings and piercings that are not removed may be cut off. - The hospital will not accept responsibility for valuables.? - Please leave all valuables, including medications, at home the day of surgery. If you are going home after surgery, a licensed local company flatbed truck driver must drive you home.? - NO public transportation without another adult if you receive anesthesia. - We recommend that an adult stay with you for 24 hours following discharge. - We also recommend that you do not drive, make important decision, drink alcoholic beverages, or take any drugs that were not prescribed by your health care provider for at least 24 hours after your discharge time. Follow any additional instructions given to you from your surgeon. Telephone instructions given to __Antoinette__and asked if any additional questions and then verbalized understanding. Patient advised to call surgeon office or pre surgery nurse liaison [phone] if any additional questions.
--- NOTE | 2024-11-21 12:25 | P.HP_ITS ---
H&P: HPI History of Present Illness Date/Time: 11/21/24 12:25 Chief Complaint: right wrist deformity Narrative: 64-year-old woman who is 2 months out from operative fixation for right distal radius and ulna fracture. 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 Collapse of the wrist and forearm with deformity and instability of the forearm. Risk for soft tissue and wound problems. Presents for operative treatment. Review of Systems Review of Systems: All systems reviewed & are unremarkable except as noted in HPI and below Constitutional: Constitutional: Reports no additional constitutional complaints ENT: Reports system reviewed and no additional complaints, except as documented Cardiovascular: Cardiovascular: Reports no additional cardiovascular complaints, Denies chest pain and Denies dyspnea Respiratory: Respiratory: Reports as per HPI, Denies chest congestion, Reports cough and Reports dyspnea Musculoskeletal: Musculoskeletal: Reports no additional musculoskeletal complaints Integumentary/Breasts: Skin/Breast: Reports system reviewed and no additional complaints, except as docu [facility] Past Medical History Medical History (Updated 11/21/24 @ 12:28 by Efren Rendon MD) 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 SHIRA (obstructive sleep apnea) Rheumatoid arthritis HTN (hypertension) Surgical History Surgical History History of bladder surgery H/O: hysterectomy Social History Social History Smoking packs per day: 0.5 Smoking cigarettes per day: 10.0 Years smoked: 15 Smoking pack-years: 7.50 Smoking status: Former smoker Tobacco type: cigarettes Smoking end date: 11/21/14 Alcohol intake: current Living arrangements: alone Spiritual care concerns: No Meds Home Medications and Allergies Home Medications ?Medication ?Instructions ?Recorded ?Confirmed ?Type alprazolam 0.25 mg tablet 0.25 mg PO QID PRN anxiety 10/04/24 11/21/24 History apixaban 5 mg tablet (Eliquis) 5 mg PO DAILY 10/04/24 11/21/24 History carvedilol 25 mg tablet 25 mg PO Q12H 10/04/24 11/21/24 History celecoxib 200 mg capsule 200 mg PO BID 10/04/24 11/21/24 History digoxin 125 mcg (0.125 mg) tablet 0.125 mg PO DAILY 10/04/24 11/21/24 History diltiazem HCl 240 mg 240 mg PO DAILY 10/04/24 11/21/24 History capsule,extended release 24 hr, controlled (DILT-XR) duloxetine 60 mg capsule,delayed 60 mg PO DAILY 10/04/24 11/21/24 History release ezetimibe 10 mg tablet 10 mg PO DAILY 10/04/24 11/21/24 History isosorbide mononitrate 60 mg 60 mg PO DAILY 10/04/24 11/21/24 History tablet,extended release 24 hr levothyroxine 100 mcg tablet 100 mcg PO DAILY 10/04/24 11/21/24 History losartan 100 1 tablet PO DAILY 10/04/24 11/21/24 History mg-hydrochlorothiazide 25 mg tablet metoclopramide HCl 10 mg tablet 10 mg PO BID PRN nausea and 10/04/24 11/21/24 History vomiting omeprazole 40 mg capsule,delayed 40 mg PO DAILY 10/04/24 11/21/24 History release rosuvastatin 5 mg tablet 5 mg PO DAILY 10/04/24 11/21/24 History sennosides 8.6 mg-docusate sodium 1 tab-cap PO BID PRN constipation 10/11/24 11/21/24 Rx 50 mg tablet (Senna with Docusate #20 tabs Sodium) ibuprofen 600 mg tablet 600 mg PO TID PRN fever or pain 11/05/24 11/21/24 Rx #30 tabs oxycodone-acetaminophen 7.5 mg-325 1 tablet PO .q6 h PRN pain #30 tabs 11/05/24 11/21/24 Rx mg tablet albuterol sulfate 90 mcg/actuation 2 puff inhalation QID PRN 11/08/24 11/21/24 Rx aerosol inhaler shortness of breath or wheezing #6.7 grams furosemide 20 mg tablet 20 mg PO DAILY 11/08/24 11/21/24 History inhalational spacing device #1 ea 11/08/24 11/21/24 Rx (Aerochamber MV spacer) Allergies Allergy/AdvReac Type Severity Reaction Status Date / Time Sulfa (Sulfonamide Allergy Severe Hives Verified 11/21/24 08:39 Antibiotics) ciprofloxacin (From Cipro) Allergy Intermediate Other Verified 11/21/24 08:39 Exam Const: General: healthy appearing; No in distress or confusion Orientation/consciousness: oriented to person, oriented to place, oriented to ti me and No confusion HENMT: Head: normal to inspection, normocephalic and atraumatic Eyes: Conjunctivae: conjunctivae normal Sclera: sclerae normal Neck: Neck: supple and nontender Resp: Effort & Inspection: normal respiratory effort and no audible wheezes Cardio: Rate: regular rate Rhythm: regular rhythm Skin: General skin exam: no rashes or lesions noted Neuro: General: oriented to person, oriented to place, oriented to time and No confusion Extrem: Right upper extremity: normal to inspection, shoulder/upper arm no tenderness and no swelling, elbow/forearm normal ROM; no tenderness and no swelling, wrist tenderness of the distal radius and of the dorsal wrist, swelling (moderate) of the dorsal wrist and abnormal ROM pain with active ROM during with extension and with flexion and pain with passive ROM during with extension and with flexion (Ext 30, Flex 30, Pro 40, Sup 35) and Extremity exam: right hand neuromotor exam normal, neuromotor exam abnormal wrist extension abnormal limited by pain, neurosensory exam normal radial nerve sensory function normal, ulnar nerve sensory function normal, median nerve sensory function normal and digital nerve sensory function normal, tendon exam normal of all digits and vascular exam radial pulse present and normal capillary refill Left upper extremity: normal to inspection, shoulder/upper arm no tenderness and no swelling, elbow/forearm no tenderness and no swelling, wrist normal ROM and radial pulse present 2+; no tenderness and no swelling and hand normal capillary refill, neuromotor exam normal, neurosensory exam normal Details: radial nerve sensory function normal, ulnar nerve sensory function normal, median nerve sens ory function normal and digital nerve sensory function normal, vascular exam normal capillary refill and normal ROM of fingers Psych: Affect: normal affect Assessment and Plan Assessment and plan (1) Closed fracture distal radius and ulna: Qualifiers: Encounter type: subsequent encounter Fracture healing: with nonunion Laterality: right Qualified Code(s): S52.501K - Unspecified fracture of the lower end of right radius, subsequent encounter for closed fracture with nonunion; S52.601K - Unspecified fracture of lower end of right ulna, subsequent encounter for closed fracture with nonunion Code(s): S52.509A - Unspecified fracture of the lower end of unspecified radius, initial encounter for closed fracture; S52.609A - Unspecified fracture of lower end of unspecified ulna, initial encounter for closed fracture Status: Acute Assessment and Plan: 2 months status post ORIF right distal radius and ulna. Severe neuropathic arthropathy with collapse of the fracture, internal hardware failure, now with instability of the forearm and wrist. Unable to control and stabilize with splint. Presents for operative treatment. Discussed nonoperative and operative treatment options with the patient. Risks and benefits of each as well as alternatives were reviewed. All of the patient's questions were answered. The risks of surgery reviewed including but not limited to: Neurovascular damage, wound complication, infection, blood clot, pulmonary embolus, stroke, myocardial infarction, and anesthetic risks up to and including . Continued pain and possible dysfunction were explained. Specific risks of the procedure including later recurrence of deformity. No guarantees were offered. If hardware used, discussed risk of failure/ breakage and possible need for removal. If complications occur, the patient understands the need for further treatment, possible further surgery. Patient verbalizes understanding and wishes to proceed. PLAN: Right wrist removal of hardware, stabilization with external fixation application to the radius and wrist. 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
[2024-11-23] VITALS (10 sets, daily range): BP systolic 142–178; BP diastolic 69–93; PULSE 67–94; RESP 12–20; TEMP 36.6–36.7; O2SAT 94–99
--- NOTE | ~2024-11-23 | XR_ITS ---
EXAMINATION: XR surgery orthopedic DATE: 11/23/2024 13:55 INDICATION: Right wrist ORIF and external fixation TECHNIQUE: 5 fluoroscopic images of the right wrist and forearm were obtained during procedure perfor med by Dr. Rendon. Radiologist was not present for the imaging or procedure. The amount of fluorosco py time used during this procedure was 0.6 minutes. Total DAP was 0.0259 mGym^2 COMPARISON: 11/19/2024 FINDINGS: Images demonstrate removal of prior plate and screw fixations associated with a failed fixation of a previous noted distal right radial and ulnar fractures. The ulnar fracture is now fixed with a retrog rade intramedullary ramona and is in near-anatomic alignment. The comminuted radial fracture is fixed wi external fixation device with screws extending from dorsally across the right hand and proximal ri ght radial diaphysis. Alignment of the radial fracture is improved with possible one half shaft width residual dorsal displacement across the proximal fracture line. IMPRESSION: 1. Fluoroscopy utilized during revision of a previously failed internal fixation of distal right radi al and ulnar fractures placement of new ulnar retrograde intramedullary ramona fixation and external fix ation across the comminuted right radial fracture. See procedure note for further detail. Reviewed, dictated and finalized at location B. IMPRESSION: 1. Fluoroscopy utilized during revision of a previously failed internal fixatio n of distal right radial and ulnar fractures placement of new ulnar retrograde intramedullary ramona fixation and external fixation across the comminuted right r adial fracture. See procedure note for further detail.
--- OUTSIDE RECORDS SUMMARY | 2024-11-23 00:14 | XMS_ITS ---
Care Plan - [facility] Created on: November 23, 2024 NIGHAT DELANEY : 1960 Sex: Female Author Organization [facility] Address [address] [place] [address] Phone Care Team Providers Care Chicken And Fish Cleaner Name Role Phone JAM MCDONNELL PA-C Primary Care Provider [phone]
--- OUTSIDE RECORDS SUMMARY | 2024-11-23 00:14 | XMS_ITS ---
Author Organization [facility] Address [address] [place] [address] Phone Care Team Providers Care Ramp Flight Attendant Name Role Phone JAM MCDONNELL PA-C Primary Care Provider [phone] Plan of Treatment No Plan of Treatment [...] On 07/08/2010 5:57PM By ALVIN BASS ; [facility] Premarin 1.25 MG OR TABS 09/02/2009 - 08/28/2010 Provi anastasia: Diagnosis: Last Documented On 11/11/2009 9:36AM By BONNIE MORALES ; [facility] Premarin 1.25 MG OR TABS 07/23/2008 - 07/18/2009 Provi anastasia: Diagnosis: Last Documented On 11/11/2009 9:37AM By BONNIE MORALES ; [facility] Amoxicillin 500 MG OR TABS 07/03/2007 - 07/13/2007 Pro vider: Diagnosis: Last Documented On 11/11/2009 9:38AM By BONNIE MORALES ; [facility] Premarin 1.25 MG OR TABS 07/05/2006 - 06/30/2007 Provi anastasia: Diagnosis: Last Documented On 11/11/2009 9:39AM By BONNIE MORALES ; [facility] Premarin 1.25 MG OR TABS 08/27/2005 - 07/23/2006 Provi anastasia: Diagnosis: Last Documented On 11/11/2009 9:40AM By BONNIE MORALES ; [facility] Medications Administered Includes: Administered Medications in patient's chart No Administered Medications Recorded Results Includes: Results from 11/24/2023 through 11/23/2024 No Results Recorded For Specified Dates History of Present Illness History of Present Illness not supported for this document type No History of Present Illness Recorded Social History Description Last Updated 11/11/2009 Last Documented On 0 9:43AM ; [facility] Exercise frequency was three times/week 11/11/2009 Last Documented On 0 9:43AM ; [facility] Exercising regularly 11/11/2009 Last Documented On 0 9:43AM ; [facility] Sexually active 11/11/2009 Last Documented On 0 9:43AM ; [facility] Sexually active with 1 partners in the l ast year 11/11/2009 Last Documented On 0 9:43AM ; [facility] Smoking Status Unknown Procedures and Surgical History Includes: Procedures from 11/24/2023 through 11/23/2024 Procedures Code Diagnosis Performing Provider Service Location Service Date CLINIC FACILITY FEE (Signi/Sep Eval & Man) [id number] Nonrheumatic mitral (valve) insufficiency, Paroxysmal atrial fibrillation, Obstructive sleep apnea (adult) (pediatric), Essential (primary) hypertension [facility] 12/13/2023 Last Documented On 4 2:24PM ; [facility] Medical History Includes: Medical History in patient's chart Description Last Updated HYSTERECTOMY ~BTL 11/11/2009 Last Documented On 0 9:43AM ; [facility] 2 living children 11/11/2009 Last Documented On 0 9:43AM ; [facility] A mammogram was performed 11/11/2009 Last Documented On 0 9:43AM ; [facility] A Pap smear was performed 11/11/2009 Last Documented On 0 9:43AM ; [facility] weight: was 7.4 lbs 11/11/2009 Last Documented On 0 9:43AM ; [facility] Breast problems 11/11/2009 Last Documented On 0 9:43AM ; [facility] Delivery date 198411/11/2009 Last Documented On 0 9:43AM ; [facility] Duration of labor: was six hr 11/11/2009 Last Documented On 0 9:43AM ; [facility] Gestational age: was 40 weeks 11/11/2009 Last Documented On 0 9:43AM ; [facility] 2 11/11/2009 Last Documented On 0 9:43AM ; [facility] History of the 2nd : 11/11/2009 Last Documented On 0 9:43AM ; [facility] Last mammogram date: 07/19/08 11/11/2009 Last Documented On 0 9:43AM ; [facility] Last pap smear date 200711/11/2009 Last Documented On 0 9:43AM ; [facility] Oral contraceptives 11/11/2009 Last Documented On 0 9:43AM ; [facility] Status post tubal ligation 11/11/2009 Last Documented On 0 9:43AM ; [facility] Family History Includes: Family History in patient's chart Description Last Updated Family history of Cancer 11/11/2009 Last Documented On 0 9:43AM ; [facility] Family history of thyroid disease 2009 Last Documented On 0 9:43AM ; [facility] Family medical history of high blood pre ssure 11/11/2009 Last Documented On 0 9:43AM ; [facility] Review of Systems Review of Systems not supported for this document type No Review of Systems Recorded Mental Status No Mental Status Recorded Functional Status No Functional Status Recorded Physical Exam Physical Exam not supported for this document type No Physical Exam Recorded Allergies Includes: Active, inactive, and resolved Allergies No Known Allergies Encounters Includes: Encounters from 11/24/2023 through 11/23/2024 Encounter Provider Location Date Check-In Time Check- Out Time Diagnosis HOSPITAL FOLLOW UP EXAM TIFFANY HOWARD [facility]- 4 12:43PM 1:47PM Insurance Includes: Active Insurance Policies Plan Name Member ID Group # Subscriber Relationship Effect cyn Dates 1 - [employer] [id number] NIGHAT DELANEY Self Clinical Notes Includes: Signed Clinical Notes starting from 09/17/2022 No Clinical Notes Recorded
--- OUTSIDE RECORDS SUMMARY | 2024-11-23 00:14 | XMS_ITS | Clinical Summary ---
Author Organization [facility] [employer] Address [address] [place] [address] Care Team Providers Care Drawer Maker Name Role Phone Shandra Ruffin Malcolm WISDOM-FLOOR INSTALLATION MECHANIC Primary Care Provider Source Comments [facility] [employer],non-owned Affiliates and Associated Physician Practices is amultiple site organization consisting of ambulatory clinics and hospital sitesin [place], [place], [place] and [place]. This disclosure is being madepursuant to the Care Everywhere program and may not contain all information available regarding this patient. Last updated 18.[facility] [employer] Allergies Active Allergy Reactions Criticality Noted [...] LURIA, FLUZONE TRIVALENT; 6MO+) (IIV3) 06/16/2016,06/11/2015,06/01/2014,2012,06/14/2012,06/01/2011 Covid [employer] primary monoval ent 12+ yr 0.3mL [...] Comments COMPREHENSIVE METABOLIC PANEL 08/31/2022 9:26 AM CHANGE HOUSE ATTENDANT from Last 3 Months or Most Recently Relevant to Health Maintenance Results * (ABNORMAL) COMPREHENSIVE METABOLIC PANEL (08/31/2022 9:26 AM CHANGE HOUSE ATTENDANT) Glucose 105(H) 65 - 99 mg/dL [facility] [...] 29 U/L [facility] Comment: Test Performed at: [facility] [id number] [place] [address] LUISA LAWRENCE DO,MPH 08/31/2022 9:26 AM CHANGE HOUSE ATTENDANT 08/31/2022 9:27 AM CHANGE HOUSE ATTENDANT Mitchell Zamarripa MD LAB - CHEMISTRY INGRID DE [facility] Organization Address City/State/ZIP Co de Phone Number [facility] [address] [place] [address] from Last 3 Months or Most Recently Relevant to Health Maintenance Advance Directives * FULL RESUSCITATION (Latest Code Status on File) Date Activated Date Inactivated Comments 11/08/2011 12:50 PM 11/10/2011 12:21 AM Care Teams Drawer Maker Relationship Specialty Start Date End Date Shandra Ruffin, WOOL CARDER-FLOOR INSTALLATION MECHANIC [address] [place] [id number] PCP - General 04/02/22
--- OUTSIDE RECORDS SUMMARY | 2024-11-23 00:14 | XMS_ITS | Encounter Summary ---
Author Organization [facility] Address [address] [place] [address] Care Team Providers Care Property Officer Name Role Phone Yg Lee MD Primary Care Provider [phone] Reason for Referral * CT Scan (Routine) - Pending Review Specialty Diagnoses / Procedures Referred By Contac t Referred To Contact Diagnoses Pulmonary nodules Procedures CT CHEST W CONTRAST Yg Lee MD [address] [place] [address] [address] [place] [address] Phone: tel: fax: [address] [address] Phone: tel: fax: Referral ID Status Reason Start Date Expiration Date V isits Requested Visits Authorized [id number] Pending Review 11/13/2024 12/14/2025 1 1 Reason for Visit * Reason Comments Needs Orders Written Encounter Details Date Type Department Care Team (Late st Contact Info) Description 11/13/2024 Telephone [facility] [address] [place] [address] Yg Lee MD [address] [place] [address] [address] [place] [address] Needs Orders Written Social History [...] on file Legal Sex Female 6:04 AM DINING HOST Gender Identity Not on file Sexual Orientation Not on file Occupation Industry Job Start Date Job End Date Not on file Not on file Not on file Not on file documented as of this encounter Miscellaneous Notes * Telephone Encounter - Alicia Yost PCA - 11/13/2024 2:24 PM CDT Called and spoke with patient and faxed to the [facility] and I let patient know that if she has not heard from them then to give them a call * Telephone Encounter - Yg Lee MD - 11/13/2024 12:49 PM CDT Order placed * Telephone Encounter - Yudi Montiel - 11/13/2024 10:38 AM CDT Copied from [facility] #[id number]. Topic: CPA Information Request - Order or Referral Request >> Nov 13, 2024 10:36 AM Yudi Duran wrote: Caller Name: Antoinette Da Silva Patient/Caregiver Callback Number: Patient Contact Information: [phone] Call Notes: order for ct scan with [...] Description 12/04/2024 3:00 PM CDT Office Visit [facility] [address] [place] [address] Yg Lee MD [address] [place], [place] [id number] Scheduled Orders Name Type Priority Associated Diagnoses Orde r Schedule CT CHEST W CONTRAST Imaging Routine Pulmonary nodules 1 Occurrences starting 11/13/2024 until 11/13/2025 documented as of this encounter Visit Diagnoses Diagnosis Pulmonary nodules- Primary Other nonspecific abnormal finding of lung field documented in this encounter Care Teams Property Officer Relationship Specialty Start Date End Date Yg Lee MD PCP - General Internal Medicine 12/20/18 documented as of this encounter
--- OUTSIDE RECORDS SUMMARY | 2024-11-23 00:14 | XMS_ITS | Encounter Summary ---
Author Organization [facility] Address [address] [place] [address] Care Team Providers Care Carton Counter Feeder Name Role Phone Yg Lee MD Primary Care Provider + Mitchell Zamarripa MD Unavailable [phone] Brit More NP Unavailable [phone] Cliff Ronquillo NP Unavailable [phone] Dick Aguilar Unavailable [phone] Gavin Sewell MD Unavailable [phone] Encounter Details Date Type Department Care Team (Late st Contact Info) Description 12/14/2021 Telephone [facility] [address] [place] [id number] Fariha Hampton, RT Social History Tobacco Use Types Packs/Day Years Used Date Smoking Tobacco: Former Smokeless Tobacco: Never Alcohol Use Standard Drinks/Week Comments Yes 0 (1 standard drink = 0.6 oz pur e alcohol) occasional Comments No Sex and Gender Information Value Date Recorded Sex Assigned at Not on file Legal Sex Female 11:50 PM GROUP EXERCISE INSTRUCTOR Gender Identity Not on file Sexual Orientation [...] COVID: Suspected 07/22/2024 07/22/2024 07/22/2024 9:25 AM GROUP EXERCISE INSTRUCTOR documented as of this encounter Care Teams Carton Counter Feeder Relationship Specialty Start Date End Date Yg Lee MD PCP - General Internal Medicine 08/19/20 Mitchell Zamarripa MD Referring Physician Rheumatology 03/11/22 Brit More NP Nurse Practitioner Cardiovascular Disease 03/11/22 Cliff Ronquillo NP [address] [place] [address] [address] [facility] [place] [address] Nurse Practitioner Nurse Practitioner 05/05/22 Dick Aguilar PA [address] [place] [address] [address] [facility] [place] [address] Physician Medical Data Entry Clerk Orthopedic Surgery 11/11/22 Gavin Sewell MD [address] [place] [address] DR CARLOS QUINTERO [address] [place] [address] Surgeon Orthopedic Surgery 12/24/22 documented as of this encounter
--- OUTSIDE RECORDS SUMMARY | 2024-11-23 00:14 | XMS_ITS | Data Portability ---
[facility] Organization [facility] Address [address] [place] [address] Care Team Providers Care Department Of Mathematics Chair Name Role Phone JAM LEDEZMA Primary Care Provider Assessment No assessment recorded. Plan of Treatment Reminders Order Date Submit Date Provider Last Modified By Organization Details Last Modified Time Details Appointments None recorde d. Lab PTH (parath yroid hormone ), intact + calcium , serum or plasma 2019 020 bbertoglioma [facility], [address] [place] [address], [address], [place], [address], 0 18:10:55 unliste d lab - complia nce drug analysi s, ur 2019 020 REUBEN [facility], [address] [place] [address], [address], [place], [address], 0 15:09:11 PTH (parath yroid hormone ), intact + calcium , serum or plasma 2019 020 hspraggs [facility], [address] [facility], [address], [place], [address], 0 15:26:23 Referral orthope dic referra l 2019 020 [facility], [address] [facility], [place], [address], 0 14:14:57 oncolog ist referra l - ANABEL 2019 020 ssaterri Rivero MD, [address] [facility] , [address], [place], [address], 0 11:06:22 dermato logist referra l 2019 [email or web address] Not available 0 14:26:11 Procedures None recorde d. Surgeries None recorde d. Imaging NM, bone scan 2019 020 bbertoglioma [facility] (Radiology), [address] [facility] , [place], [address], 0 15:52:19 CT, lower leg, w/ contras t 2019 020 [facility] (Scheduling), [address] [facility], [place], [address], 0 15:02:33 XR, lumbar spine 2019 020 REUBEN [facility]uling, [address] [facility], [place], [address], 0 14:17:01 Medication Orders calcito marlo (salmon ) 200 unit/ac tuation nasal spray 2019 020 [facility]FACE [facility][id number], [address], [place], [place], [id number], 0 15:02:19 acetami nophen 300 mg-code ine 30 mg tablet 2019 020 dturnerma [facility][id number], [address], [place], [place], [id number], 1 17:09:49 gabapen tin 100 mg capsule 2019 020 [facility][id number], [address], [place], [place], [id number], 0 12:02:47 Patient TargetsNo targets recorded. Patient Instructions Encounter Date Encounter Id Patient Instructions Last Modified By Organization Details Last Modified Time 01/30/2020 [id number] osteoporosis: care instructions jnanney Not available 01/30/2020 15:02:14 Reason for Referral Cleaning Validation Consultant Referral for C omplaining of a rash Referring Physician: Jam Ledezma [facility], Encounter Date: 02/20/2020 ANABEL Referring Physician: Jam Ledezma [facility], Encounter Date: 02/20/2020 Orthopedic Referral for Path ological fracture of right tibia Referring Physician: Jam Ledezma [facility], Encounter Date: 04/22/2020 Results Created Date Observation Date Name Description Value Unit Range Abnormal Flag Note LastModifiedBy Organization Detail LastModifiedTime 12/27/19 20 12/28/2019 CMP, serum or plasm a glucose 91 mg/dL 65-99 Not Available [facility] ([facility]) [address] [place], [address], 12/28/2019 07:08:47 12/27/1912/28/2019 CMP, serum or plasm a BUN 15 mg/dL 6-24 Not Available [facility] ([facility]) [address] [place], [address], 12/28/2019 07:08:47 12/27/1912/28/2019 CMP, serum or plasm a creatinine 0.80 mg/dL 0.57-1 .00 Not Available [facility] ([facility]) [address] [place], [address], 12/28/2019 07:08:47 12/27/1912/28/2019 CMP, serum or plasm a eGFR if nonafricn AM 82 mL/mi n/1.7 3 >59 Not Available [facility] ([facility]) [address] [place], [address], 12/28/2019 07:08:47 12/27/1912/2712/28/2019 CMP, serum or plasm a eGFR if africn AM 95 mL/mi n/1.7 3 >59 Not Available [facility] ([facility]) [address] [facility] [place], [address], 12/28/2019 07:08:47 12/27/19 20 12/28/2019 CMP, serum or plasm a BUN/creatini ne ratio 19 9-23 Not Available [facility] ([facility]) [address] [facility] [place], [address], 12/28/2019 07:08:47 12/27/1912/28/2019 CMP, serum or plasm a sodium 138 mmol/ L 134-14 4 Not Available [facility] ([facility]) [address] [place], [address], 12/28/2019 07:08:47 12/27/19 20 12/28/2019 CMP, serum or plasm a potassium 4.2 mmol/ L 3.5-5. 2 Not Available [facility] ([facility]) [address] [place], [address], 12/28/2019 07:08:47 12/27/19 20 12/28/2019 CMP, serum or plasm a chloride 98 mmol/ L 96-106 Not Available [facility] ([facility]) [address] [place], [address], 12/28/2019 07:08:47 12/27/1912/28/2019 CMP, serum or plasm a carbon dioxide, total 23 mmol/ L 20-29 Not Available [facility] ([facility]) [address] [place], [address], 12/28/2019 07:08:47 12/27/1912/28/2019 CMP, serum or plasm a calcium 10.1 mg/dL 8.7-10 .2 Not Available [facility] ([facility]) [address] [place], [address], 12/28/2019 07:08:47 12/27/19 20 12/28/2019 CMP, serum or plasm a protein, total 7.3 g/dL 6.0-8. 5 Not Available [facility] ([facility]) [address] [place], [address], 12/28/2019 07:08:47 12/27/1912/28/2019 CMP, serum or plasm a albumin 4.8 g/dL 3.8-4. 9 Not Available [facility] ([facility]) [address] [place], [address], 12/28/2019 07:08:47 12/27/1912/28/2019 CMP, serum or plasm a globulin, total 2.5 g/dL 1.5-4. 5 Not Available [facility] ([facility]) [address] [place], [address], 12/28/2019 07:08:47 12/27/1912/28/2019 CMP, serum or plasm a A/G ratio 1.9 1.2-2. 2 Not Available [facility] ([facility]) [address] [place], [address], 12/28/2019 07:08:47 12/27/1912/28/2019 CMP, serum or plasm a bilirubin, total 0.4 mg/dL 0.0-1. 2 Not Available [facility] ([facility]) [address] [place], [address], 12/28/2019 07:08:47 12/27/1912/28/2019 CMP, serum or plasm a alkaline phosphatase 114 IU/L 39-117 Not Available [facility]) [address] [place], [address], 12/28/2019 07:08:47 12/27/1912/28/2019 CMP, serum or plasm a AST (SGOT) 40 IU/L 0-40 Not Available [facility] ([facility]) [address], [place], [address], 12/28/2019 07:08:47 12/27/1912/28/2019 CMP, serum or plasm a ALT (SGPT) 29 IU/L 0-32 Not Available [facility] ([facility]) [address] [facility], [place], [address], 12/28/2019 07:08:47 12/27/19 20 12/28/2019 vitam in D, 25-hy droxy , total , serum vitamin D, 25-hydroxy 34.2 NG/mL 30.0-1 00.0 Vitam in D defic iency has been defin ed by the Insti tute of [facility] ine and an Endoc rine Socie ty pract ice guide line as a level of serum 25-OH vitam in D less than 20 ng/mL (1,2) . The Endoc rine Socie ty went on to furth er defin e vitam in D insuf ficie ncy as a level betwe en 21 and 29 ng/mL (2). 1. IOM (Inst itute of [facility] ine). 2010. Melany ry refer ence kristina es for calci um and D. Zackary baum [place]: [facility] Press . 2. Patricia valdez MF, Jluis albert [place], [place] off-F errar i GARCIA, et al. Evalu ation , treat ment, and preve ntion of vitam in D defic iency : an Endoc rine Socie ty clini tessie pract ice guide line. JCEM. 2010; 96(7) :1911 -30. Not Available [facility] ([facility]) [address] [facility], [place], [address], 12/28/2019 07:08:48 02/11/2002/19/2020 drug scree n, urine [...] [place] [address] EXPEC JALYN ng/mg creat Morph ine 1924 EXPEC JALYN ng/mg creat Normo rphin e 572 EXPEC JALYN ng/mg creat Benson deine 1659 EXPEC JALYN ng/mg creat Sourc [...] expec jalyn metab olite of morph ine. Benson deine is an expec jalyn metab olite [...] === Decla red Medic ation s: The allne ing and inter preta tion on this [...] Clobe tasol Ezeti mibe Fluti kelsie e [place] chlor othia zide (Samantha nopri l-HCT Z) [place] xychl oroqu ine Levot hyrox ine Lisin [...] ===== ===== ===== ===== === Not Available [employer] [address] [facility], [place], [address], 02/19/2020 15:09:11 02/11/20 20 02/19/2020 drug scree n, urine pdf . Not Available [employer] [employer] [address] [facility], [place], [address], 02/19/2020 15:09:11 04/28/20 20 04/28/2020 PTH (para [...] - 65 < 8.6 Not Available [facility] ([facility]) [address] [place], [address], 04/29/2020 17:08:21 04/28/20 20 04/29/2020 PTH (para thyro id hormo ne), intac t + calci um, serum or plasm a calcium TNP mg/dL No serum gel recei dillon. Not Available [facility] ([facility]) [address] [place], [address], 04/29/2020 17:08:21 04/28/20 20 04/29/2020 PTH (para thyro id hormo ne), intac t + calci um, serum or plasm a PTH, intact 63 pg/mL 15-65 Not Available [facility] ([facility]) [address] [place], [address], 04/29/2020 17:08:21 04/28/20 20 04/29/2020 speci men statu s repor t specimen status report TNP No serum gel recei dillon. TEST: [id number] 6 Calci um Panel : 44755 1 Not Available [facility] ([facility]) [address] [place], [address], 04/29/2020 17:08:22 04/30/2005/01/2020 TSH + free T4, serum TSH 4.230 uIU/m L 0.450- 4.500 Not Available [facility] ([facility]) [address] [place], [address], 05/01/2020 08:17:01 04/30/2005/01/2020 TSH + free T4, serum T4,free(dire ct) 1.18 NG/dL 0.82-1 .77 Not Available [facility] ([facility]) [address] [place], [address], 05/01/2020 08:17:01 04/30/2005/01/2020 CBC w/ auto diff WBC 5.2 x10e3 /uL 3.4-10 .8 Not Available [facility] ([facility]) [address] [facility], [place], [address], 05/01/2020 08:17:02 04/30/2005/01/2020 CBC w/ auto diff RBC 4.16 x10e6 /uL 3.77-5 .28 Not Available [facility] ([facility]) [address] [facility], [place], [address], 05/01/2020 08:17:02 04/30/2005/01/2020 CBC w/ auto diff hemoglobin 13.9 g/dL 11.1-1 5.9 Not Available [facility] ([facility]) [address] [facility], [place], [address], 05/01/2020 08:17:02 04/30/2005/01/2020 CBC w/ auto diff hematocrit 39.7 % 34.0-4 6.6 Not Available [facility] ([facility]) [address] [facility], [place], [address], 05/01/2020 08:17:02 04/30/2005/01/2020 CBC w/ auto diff MCV 95 fL 79-97 Not Available [facility] ([facility]) [address] [place], [address], 05/01/2020 08:17:02 04/30/2005/01/2020 CBC w/ auto diff MCH 33.4 pg 26.6-3 3.0 above high normal Not Available [facility] ([facility]) [address] [place], [address], 05/01/2020 08:17:02 04/30/2005/01/2020 CBC w/ auto diff MCHC 35.0 g/dL 31.5-3 5.7 Not Available [facility] ([facility]) [address] [facility], [place], [address], 05/01/2020 08:17:02 04/30/2005/01/2020 CBC w/ auto diff RDW 13.4 % 11.7-1 5.4 Not Available [facility] ([facility]) [address] [facility], [place], [address], 05/01/2020 08:17:02 04/30/2005/01/2020 CBC w/ auto diff platelets 296 x10e3 /uL 150-45 0 Not Available [facility] ([facility]) [address] [facility], [place], [address], 05/01/2020 08:17:02 04/30/2005/01/2020 CBC w/ auto diff neutrophils 72 % not estab. Not Available [facility] ([facility]) [address] [facility], [place], [address], 05/01/2020 08:17:02 04/30/2005/01/2020 CBC w/ auto diff lymphs 14 % not estab. Not Available [facility] ([facility]) [address] [facility], [place], [address], 05/01/2020 08:17:02 04/30/2005/01/2020 CBC w/ auto diff monocytes 7 % not estab. Not Available [facility] ([facility]) [address] [facility], [place], [address], 05/01/2020 08:17:02 04/30/2005/01/2020 CBC w/ auto diff eos 4 % not estab. Not Available [facility] ([facility]) [address] [facility], [place], [address], 05/01/2020 08:17:02 04/30/2005/01/2020 CBC w/ auto diff basos 2 % not estab. Not Available [facility] ([facility]) [address] [facility], [place], [address], 05/01/2020 08:17:02 04/30/2005/01/2020 CBC w/ auto diff immature cells COMMODITY INDUSTRY ANALYST Not Available [facility] ([facility]) [address] [place], [address], 05/01/2020 08:17:02 04/30/2005/01/2020 CBC w/ auto diff neutrophils (absolute) 3.8 x10e3 /uL 1.4-7. 0 Not Available [facility] ([facility]) [address] [place], [address], 05/01/2020 08:17:02 04/30/2005/01/2020 CBC w/ auto diff lymphs (absolute) 0.7 x10e3 /uL 0.7-3. 1 Not Available [facility] ([facility]) [address] [place], [address], 05/01/2020 08:17:02 04/30/2005/01/2020 CBC w/ auto diff monocytes(ab solute) 0.4 x10e3 /uL 0.1-0. 9 Not Available [facility] ([facility]) [address] [place], [address], 05/01/2020 08:17:02 04/30/2005/01/2020 CBC w/ auto diff eos (absolute) 0.2 x10e3 /uL 0.0-0. 4 Not Available [facility] ([facility]) [address] [place], [address], 05/01/2020 08:17:02 04/30/2005/01/2020 CBC w/ auto diff baso (absolute) 0.1 x10e3 /uL 0.0-0. 2 Not Available [facility] ([facility]) [address] [place], [address], 05/01/2020 08:17:02 04/30/2005/01/2020 CBC w/ auto diff immature granulocytes 1 % not estab. Not Available [facility] ([facility]) [address] [facility] [place], [address], 05/01/2020 08:17:02 04/30/2005/01/2020 CBC w/ auto diff immature grans (abs) 0.0 x10e3 /uL 0.0-0. 1 Not Available [facility] ([facility]) [address] [facility], [place], [address], 05/01/2020 08:17:02 04/30/2005/01/2020 CBC w/ auto diff NRBC COMMODITY INDUSTRY ANALYST Not Available [facility] ([facility]) [address] [facility] [place], [address], 05/01/2020 08:17:02 04/30/2005/01/2020 CBC w/ auto diff hematology comments: COMMODITY INDUSTRY ANALYST Not Available [facility] ([facility]) [address] [facility], [place], [address], 05/01/2020 08:17:02 04/30/2005/01/2020 CMP, serum or plasm a glucose 109 mg/dL 65-99 above high normal Not Available [facility] ([facility]) [address] [place], [address], 05/01/2020 08:17:03 04/30/2005/01/2020 CMP, serum or plasm a BUN 12 mg/dL 6-24 Not Available [facility] ([facility]) [address] [place], [address], 05/01/2020 08:17:03 04/30/2005/01/2020 CMP, serum or plasm a creatinine 0.65 mg/dL 0.57-1 .00 Not Available [facility] ([facility]) [address] [place], [address], 05/01/2020 08:17:03 04/30/2005/01/2020 CMP, serum or plasm a eGFR if nonafricn AM 99 mL/mi n/1.7 3 >59 Not Available [facility] ([facility]) [address] [facility] [place], [address], 05/01/2020 08:17:03 04/30/20 20 05/01/2020 CMP, serum or plasm a eGFR if africn AM 114 mL/mi n/1.7 3 >59 Not Available [facility] ([facility]) [address] [facility] [place], [address], 05/01/2020 08:17:03 04/30/20 20 05/01/2020 CMP, serum or plasm a BUN/creatini ne ratio 18 9-23 Not Available [facility] ([facility]) [address] [facility] [place], [address], 05/01/2020 08:17:03 04/30/2005/01/2020 CMP, serum or plasm a sodium 139 mmol/ L 134-14 4 Not Available [facility] ([facility]) [address] [facility] [place], [address], 05/01/2020 08:17:03 04/30/2005/01/2020 CMP, serum or plasm a potassium 4.4 mmol/ L 3.5-5. 2 Not Available [facility] ([facility]) [address] [facility] [place], [address], 05/01/2020 08:17:03 04/30/2005/01/2020 CMP, serum or plasm a chloride 96 mmol/ L 96-106 Not Available [facility] ([facility]) [address] [facility] [place], [address], 05/01/2020 08:17:03 04/30/2005/01/2020 CMP, serum or plasm a carbon dioxide, total 27 mmol/ L 20-29 Not Available [facility] ([facility]) [address] [facility] [place], [address], 05/01/2020 08:17:03 04/30/2005/01/2020 CMP, serum or plasm a calcium 10.0 mg/dL 8.7-10 .2 Not Available [facility] ([facility]) [address] [place], [address], 05/01/2020 08:17:03 04/30/2005/01/2020 CMP, serum or plasm a protein, total 7.0 g/dL 6.0-8. 5 Not Available [facility] ([facility]) [address] [place], [address], 05/01/2020 08:17:03 04/30/2005/01/2020 CMP, serum or plasm a albumin 4.6 g/dL 3.8-4. 9 Not Available [facility] ([facility]) [address] [place], [address], 05/01/2020 08:17:03 04/30/2005/01/2020 CMP, serum or plasm a globulin, total 2.4 g/dL 1.5-4. 5 Not Available [facility] ([facility]) [address] [place], [address], 05/01/2020 08:17:03 04/30/2005/01/2020 CMP, serum or plasm a A/G ratio 1.9 1.2-2. 2 Not Available [facility] ([facility]) [address] [place], [address], 05/01/2020 08:17:03 04/30/2005/01/2020 CMP, serum or plasm a bilirubin, total 0.5 mg/dL 0.0-1. 2 Not Available [facility] ([facility]) [address] [place], [address], 05/01/2020 08:17:03 04/30/2005/01/2020 CMP, serum or plasm a alkaline phosphatase 231 IU/L 39-117 above high normal Not Available [facility] ([facility]) [address] [facility], [place], [address], 05/01/2020 08:17:03 04/30/20 20 05/01/2020 CMP, serum or plasm a AST (SGOT) 83 IU/L 0-40 above high normal Not Available [facility] ([facility]) [address] [facility], [place], [address], 05/01/2020 08:17:03 04/30/20 20 05/01/2020 CMP, serum or plasm a ALT (SGPT) 63 IU/L 0-32 above high normal Not Available [facility] ([facility]) [address] [facility], [place], [address], 05/01/2020 08:17:03 04/30/20 20 04/30/2020 urina lysis , dipst ick Leukocytes Negati ve Not Available In-Office Order Internal Use Only DO Not Attach Compendium DO Not Attach Compendium, Do Not Delete/merge, [id number] 04/30/2020 11:03:06 04/30/2004/30/2020 urina lysis , dipst ick Nitrite negati ve Not Available In-Office Order Internal Use Only DO Not Attach Compendium DO Not Attach Compendium, Do Not Delete/merge, [id number] 04/30/2020 11:03:06 04/30/2004/30/2020 urina lysis , dipst ick Urobilinogen .2 Not Available In-Of fice Order Internal Use Only DO Not Attach Compendium DO Not Attach Compendium, Do Not Delete/merge, [id number] 04/30/2020 11:03:06 04/30/2004/30/2020 urina lysis , dipst ick Protein Negati ve Not Available In-Office Order Internal Use Only DO Not Attach Compendium DO Not Attach Compendium, Do Not Delete/merge, [id number] 04/30/2020 11:03:06 04/30/20 20 04/30/2020 urina lysis , dipst ick pH 6.5 Not Available In-Office Order Internal Use Only DO Not Attach Compendium DO Not Attach Compendium, Do Not Delete/merge, [id number] 04/30/2020 11:03:06 04/30/20 20 04/30/2020 urina lysis , dipst ick Blood Negati ve Not Available In-Office Order Internal Use Only DO Not Attach Compendium DO Not Attach Compendium, Do Not Delete/merge, [id number] 04/30/2020 11:03:06 04/30/20 20 04/30/2020 urina lysis , dipst ick Specific Early 1.020 Not Available In-Off ice Order Internal [...] r spine No observ ation record ed. [address], [place], [address], 02/07/2020 17:22:18 02/19/20 20 02/19/2020 NM, bone scan No observ ation record ed. [facility] [address] [facility] [place], [address], 02/19/2020 17:52:46 03/25/20 20 03/25/2020 bone densi ty No observ [facility]ion [facility] ed[facility] [address] [facility] [place], [address], 03/28/2020 12:17:03 09/12/19 21 09/10/2020 cardi ac stres s test No observ ation record ed. [facility] [address], [place], [address], 09/12/2020 16:33:08 12/18/19 21 12/09/2020 pulmo nary funct ion test* No observ ation record ed. [facility] [address], [place], [address], 12/17/2020 15:14:10 01/03/20 21 01/02/2021 US, duple x, renal arter y No observ ation record ed. [facility] [address], [place], [address], 01/02/2021 14:47:22 01/03/20 21 01/02/2021 stres s echoc ardio gram No observ ation record ed. [facility] [address], [place], [address], 01/02/2021 14:47:41 11/28/19 24 11/25/2023 US, echoc ardio gram, trans esoph ageal No observ ation record ed. [facility] [employer] [address] [facility] [address], [place], [address], 12/08/2023 11:32:40 01/16/20 24 11/23/2023 CT, angio gram, chest , w/ contr ast No observ ation record ed. mmetias [address] [place], [address], 01/16/2024 15:25:06 Result Notes None recorded. Problems Name Problem SNOMED Code Status Onset Date Resolution Date Notes Provider Name and Address Organization Details Recorded Time Drug therapy finding 033209065 Active 2015 CHIO Niño, [place] - [facility] 0 11:49:27 Enzyme level - finding 153801549 Active 2017 CHIO Niño[place] [facility] 0 11:49:27 Fibromyalgia 928970492 Active 2011 Kallie Sloan [place] null, [place] [facility] 0 11:49:27 Hypertensive disorder 60549200 Active 2012 Kallie S[place] [facility] 0 11:49:27 Osteopenia 823069268 Active 2011 Kallie S[place] [facility] 0 11:49:27 Rheumatoid arthritis 69236188 Active 2017 Kallie S[place] [facility] 0 11:49:27 Problem Notes None recorded. Procedures Surgical History Date Name Laterality Status Provider Name and Address Organization Details Recorded Time hysterectomy completed Anabela Blanc [place] - [facility] 09/06/2019 12:01:29 Imaging Results Imaging Date Name Status LastModified by Organization Details LastModified Time 01/28/2020 XR, lumbar spine completed milly [place] [address] [place], [address], 02/07/2020 17:22:18 02/19/2020 NM, [facility] [address] [place], [address], 02/19/2020 17:52:46 03/25/[address] [facility] [address] [place], [address], 03/28/2020 12:17:03 09/10/2020 cardiac stress test completed [facility] ([facility]) [address] [facility], [place], [address], 09/12/2020 16:33:08 12/09/2020 pulmonary function test* completed [facility] ([facility]) [address] [facility], [place], [address], 12/17/2020 15:14:10 01/02/2021 US, duplex, renal artery completed [facility] ([facility]) [address] [facility], [place], [address], 01/02/2021 14:47:22 01/02/2021 stress echocardiogram completed [facility] ([facility]) [address] [facility], [place], [address], 01/02/2021 14:47:41 11/25/2023 US, echocardiogram, transesophageal completed [facility] [employer] [address] [facility] [place], [address], 12/08/2023 11:32:40 11/23/2023 CT, angiogram, chest, w/ contrast completed [facility] [address] [facility] [place], [address], 01/16/2024 15:25:06 Procedure Notes None recorded. Medical Equipment None Reported. Allergies Allergen ID Allergen Name Allergen Category Reaction Reaction Severity Criticality Documentation Date Start Date Code Code System Note Provider Name and Address Organization Details Recorded Time 697096 Substance with sulfonami de structure and antibacte rial mechanism of action (substanc e) medicatio n hives Not available Not available 09/06/2019 05430 8003 SNOMED Not Available Not Available Not Available 584424 Cipro medicatio n Not available Not available Not available 09/06/201982450 3 RxNorm Not Available Not Available Not Available 568417 ciproflox acin medicatio n myalgias (muscle pain) [...] Available No t Available aspirin 81 mg tablet,eilel yed release 2012 active Not Available Not [...] DateTime 01/25/2020 157.48 cm Kallie Sloan MA [facility] 01/25/20 20 11:49:06 Date Recorded Body height Provider Name an d Address Organization Details Last Updated DateTime 01/30/2020 157.48 cm Anabela Blanc MA [facility] 01/30/2020 14:32:47 Date Recorded Body height Body mass index (BMI) Body weight Body temperature Oxygen saturation Oxygen saturation in Arterial blood by Pulse oximetry Heart rate Systolic blood pressure Diastolic blood pressure Provider Name and Address Organization Details Last Updated DateTime 0 157.48 cm 31.1 kg/m2 67936.7 g 98.1 [degF] 93 % 93 % 83 /min 108 mm[Hg] 82 mm[Hg] Anabela Blanc MA [facility] 0 10:40:52 Date Recorded Body height Body mass index (BMI) Body weight Body temperature Oxygen saturation Oxygen saturation in Arterial blood by Pulse oximetry Heart rate Systolic blood pressure Diastolic blood pressure Provider Name and Address Organization Details Last Updated DateTime 0 157.48 cm 31.3 kg/m2 22485 g 98 [degF] 98 % 98 % 80 /min 142 mm[Hg] 90 mm[Hg] Kallie Sloan MA [facility] 0 14:59:34 Social History Question Answer Notes LastModified by Organizat ion Details LastModified Time Tobacco Smoking Status Former Smoker 2012 Anabela Blanc MA null, [facility] 09/06/2019 12:01:14 In The 14 Days Before Symptom Onset, Have You Had Close Contact With A Laboratory-confir med COVID-19 While That Case Was Ill? No Information not available 11/26/2019 If Patient Spent Time In [facility] - Does The Patient Live In [facility]? No Information not available 11/26/2019 In The 14 Days Before Symptom Onset, Have You Had Close Contact With A Person Who Is Under Investigation For COVID-19 While That Person Was Ill? No Information not available 11/26/2019 In The 14 Days Before Symptom Onset, Did The Patient Spend Time In [facility]? No Information not available 11/26/2019 [...] Atrial Fibrillation Y High Blood Pressure Y Kidney or Bladder Problems N Thyroid Problems Y Depression Y COPD N Blood Clots N GI Problems Y Eating Disorder N Skin Problems Y Anemia N Heart Attack (VT) N Anxiety Disorder Y Diabetes N Muscle, Joint, or Bone Problems Y Seizures/Epilepsy N Acid Reflux (GERD) Y Cancer N Stroke Y Asthma N Allergies Y ADHD N Substance Abuse N High Cholesterol Y Hepatitis N Liver Disease N Headaches N Schizophrenia N Osteoporosis Y Heart Failure N Gynecological HistoryNo gynecological history recorded. Obstetrics History GPAL:G 0 P 0 0 0 0 Past Encounters Encounter ID Performer Location Encounter Start Date Encounter Closed Date Diagnosis/Indication Diagnosis SNOMED-CT Code Diagnosis ICD10 Code Diagnosis Note [id number] Anabela Blanc MA [facility] [address] [place] [address] 09/06/2019 11:41:44 09/07/2019 16:55:26 Chronic depression 064718594 F34.1 Long-term drug therapy 564209850 Z79.899 Essential hypertension 87921379 I10 [id number] Jam Ledezma PA-C [facility] [address] [place] [address] 09/13/2019 11:39:42 09/13/2019 12:10:30 Essential hypertension 97829681 I10 [id number] Jam Ledezma PA-C [facility] [address] [place] [address] 11/26/2019 10:49:30 11/26/2019 12:28:39 Essential hypertension 99750005 I10 Mitral valve prolapse 40 2690871 I34.1 History of transient ischemic attack 384828769 Z86.73 Seasonal a llergic rhinitis 943695089 J30.2 [id number] Jam Ledezma PA-C [facility] [address] [place] [address] 12/10/2019 10:48:06 12/12/2019 11:23:50 Essential hypertension 15074738 I10 Chronic depression 06287 0009 F34.1 Nausea and vomiting 1692 1999 R11.2 [id number] Jam Ledezma PA-C [facility] [address] [place] [address] 12/11/2019 13:09:52 12/12/2019 11:45:12 Mixed hyperlipidemia 198813496 E78.2 [id number] Jam Ledezma PA-C [facility] [address] [place] [address] 12/27/2019 11:02:54 12/28/2019 08:34:57 Idiopathic hypercalcemia 610870643 E83.52 Seasonal a llergic rhinitis 503707276 J30.2 [id number] Jam Ledezma PA-C [facility] [address] [place] [address] 01/25/2020 10:10:00 01/28/2020 08:04:28 Lumbar radiculopathy 545234415 M54.16 [id number] KELLEN Liao [facility] [address] [place] [address] 01/30/2020 11:07:31 01/31/2020 07:58:24 Idiopathic hypercalcemia 759519672 E83.52 Stress fra cture of tibia 082980163 M84.361A Osteoporosis 35191480 M8 1.0 [id number] Anabela Blanc MA [facility] [address] [place] [address] 02/11/2020 10:34:29 02/11/2020 15:10:24 Pain in right lower limb 554403930 M79.604 Long-term drug therapy 719764483 Z79.775 [id number] Jam Ledezma PA-C [facility] [address] [place] [address] 02/20/2020 14:44:57 02/20/2020 15:38:07 Pathological fracture of right tibia 1316402405 1209199 M84.461G Complaining of a rash 16 5916346 R21 [id number] Jam Ledezma PA-C [facility] [address] [place] [address] 04/22/2020 09:33:20 04/23/2020 12:40:11 Osteopenia 311564533 M85.88 Pathologic al fracture of right tibia 0351835689 8322370 M84.461G Health Concerns Section Related Observation LastModified by Organization Detai ls LastModified Time None Recorded Concern Status LastModified by Organization Details LastModified Time None Recorded Advance Directives Directive None Recorded Payers Encounter Date Sequence Insurance Name Policy Number Policy Bright Covered Member ID Bright Member ID Guarantor Name 01/25/2020 1 [facility] PRIOR TO 02/26/2021 (MEDICAID REPLACEMENT - HMO) Antoinette Da Silva [id number] Antoinette Da Silva 01/30/2020 1 [facility] PRIOR TO 02/26/2021 (MEDICAID REPLACEMENT - HMO) Antoinette Da Silva [id number] Antoinette Da Silva 02/11/2020 1 [facility] PRIOR TO 02/26/2021 (MEDICAID REPLACEMENT - HMO) Antoinette Da Silva [id number] Antoinette Da Silva 02/20/2020 1 [facility] PRIOR TO 02/26/2021 (MEDICAID REPLACEMENT - HMO) Antoinette Da Silva [id number] Antoinette Da Silva 04/22/2020 1 [facility] PRIOR TO 02/26/2021 (MEDICAID REPLACEMENT - HMO) Antoinette Da Silva [id number] Antoinette Da Silva Notes Date Note Type [...] osteoporosis Jam Ledezma PA-C Attn: Accounting[address] [place], [address], [facility] 01/25/2020 12:05:40 01/30/2020 text/html questions re bpressure...162/106 [...] osteoporosis... Jam Ledezma PA-C Attn: Accounting[address] [place], [address], [facility] 01/30/2020 15:08:21 02/11/2020 text/html started january 17..pain in medial lower rt leg..no known injury. went to ER xrays were done. findings of an old healed fracture that the patient denies ever having broken. pain has not improved may have worsened. Anabela Blanc MA [facility], [facility] 02/11/2020 11:25:00 02/20/2020 text/html bone scan reviewed..rib with uptake and rt tib fib with intense uptake they say likely posttraumatic but she denies injury. now skin on forearms are red and that is pruritic not painful Jam Ledezma PA-C Attn: Accounting[address] [place], [address], [facility] 02/20/2020 15:32:42 04/22/2020 text/html follow up on leg fractures that dont belong... Jam Ledezma PA-C Attn: [address]ing[address] [facility], [place], [address], [facility] 04/22/2020 17:56:09 OBGyn Episode No OBEpisode recorded.
--- OUTSIDE RECORDS SUMMARY | 2024-11-23 00:14 | XMS_ITS | Clinical Summary ---
Author Organization [facility] Address [address] [place] [address] Phone Care Team Providers Care Product Delivery Specialist Name Role Phone JAM MCDONNELL PA-C Primary Care Provider [phone] Reason for Visit and Chief Complaint HOSPITAL [...] (adult) (pediatric), Essential (primary) hypertension TIFFANY Chaudhari [facility] 12/13/2023 Last Documented On 4 2:24PM ; [facility] Medical History [...] FOLLOW UP EXAM TIFFANY SAUCEDO [facility]- 4 12:43PM 1:47PM Insurance Includes: Active Insurance Policies Plan Name Member ID Group # Subscriber Relationship Effect cyn Dates 1 - [employer] MEDIC[employer] ADVANTAGE [id number] NIGHAT DELANEY Self Clinical Notes Includes: Clinical Notes from this encounter No Clinical Notes Recorded
--- OUTSIDE RECORDS SUMMARY | 2024-11-23 00:14 | XMS_ITS | Clinical Summary ---
Author Organization [facility] Address [address] [place] [address] Care Team Providers Care Tuber Machine Cutter Name Role Phone Yg Lee MD Primary Care Provider [phone] Allergies Active Allergy Reactions Criticality Noted Date [...] (Dexilant) 60 mg Delayed Release capsule Lot: [id number] Ex: 10/21 Qty: 8 5 Capsule 10/20/19 [...] on 04/05/2024 fluticasone propionate (FLONASE) 50 mcg/spray [place], Suspension nasal inhaler USE 1 OR 2 [...] Active apixaban (ELIQUIS) 5 mg tablet Lot: [id number] ex: 05/2025 qty: 8 14 Tablet 04/12/20 [...] t be different from the original. [facility] [id number] 09/01/22 Problem Noted Date Diagnosed Date Pulmonary [...] Encounters Date Type Department Care Team Description 11/19/[address] [place] [address] Yg Lee MD 11/13/[address] [place] [address] Yg Lee MD Needs Orders Written 11/05/2024 External Device Data [facility]STRACTION Provider, Abstract 10/17/2024 External Device Data [facility] Provider, Abstract 10/15/[address] [place] [address] Yg Lee MD Gastroesophageal reflux disease without esophagitis 10/12/[address] [place] [address] Provider, Abstract 10/05/[address] [place] [address] Yg Lee MD Needs Appointment 09/20/2024 External Device Data [facility] ABSTRACTION Provider, Abstract 09/19/[address] [place] [address] Yg Lee MD Essential hypertension, benign 09/11/2024 External Device Data [facility]STRACTION Provider, Abstract from Last 3 Months Immunizations Immunization Administration Dates Next Due (ADACEL/BOOSTRIX)(10 YR UP) TDAP VACCINE, 0.5ML, IM 06/15/2011 (PFIZER)(12 YR UP) COVID-19 VACCINE - EMERGENCY USE AUTHORIZATION, MRNA, [id number](PF) 30 MCG/0.3 ML IM SUSP 04/22/2021,04/01/2021 (PNEUMOVAX 23)(50 YRS UP) PN EUMOCOCCAL POLYSACCHARIDE (PPV23) 0.5 ML, IM 07/18/2017,06/15/2011 (PREVNAR 13)(6 WKS UP) PNEUM OCOCCAL CONJUGATE (PCV13) 0.5 ML, IM 10/20/2020 (PREVNAR 20)(6 WKS UP) PNEUM OCOCCAL CONJUGATE VACCINE 20-VALENT (PCV20), POLYSACCHARIDE [id number] CONJUGATE, ADJUVANT 0.5 ML (PF) IM 02/23/2023 [...] on file 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 Gender Identity Not on file Sexual Orientation [...] Description 12/04/2024 3:00 PM CDT Office Visit [facility] [place] [address] [place] [address] Yg Lee MD [address] [place] [address] [address] [place] [phone] Health Maintenance Due Date Last Done Comments [...] 1-dose series) 2022 INFLUENZA VACCINE (#1) 2024 3, 08/14/2021, 07/17/2020, Additional history exists Medicare Advantage [...] history exists Medical Devices Implanted Type Area Paper Latcher Device Identifier Shelf Expiration Date Model / Serial / Lot Stent Pncrtc Frmn Flx 5fr 5cm 6552 - [id number] Implanted:Qty: 1 on 02/24/2018 by John White MD at [facility] Stent N/A: Pancreas [facility] [id number] 09/29/2022 6552 / / [id number] Procedures Procedure Name Priority Date/Time Associated Diagnosis Comments HEMOGLOBIN A1C Routine 06/15/2024 9:16 AM CDT Abnormal glucose MAMMO 3D KIRILL SCREEN BILAT W OR WO CAD Routine 05/16/2024 1:15 PM CDT Screening mammogram, encounter for from Last 3 Months or Most Recently Relevant to Health Maintenance Results * HEMOGLOBIN A1C (06/15/2024 9:16 AM CDT) HEMOGLOBIN A1C 5.2 <5.7 % of total Hgb [facility] [employer] SpringsRenee sheyla Santana Comment: For the purpose of screening for the presence of diabetes: <5.7% Consistent with the absence of diabetes 5.7-6.4% Consistent with increased risk for diabetes (prediabetes) > or =6.5% Consistent with diabetes This assay result is consistent with a decreased risk of diabetes. Currently, no consensus exists regarding use of hemoglobin A1c for diagnosis of diabetes in children. According to [place] Diabetes Association (ADA) guidelines, hemoglobin A1c <7.0% represents optimal control in non- diabetic patients. Different metrics may apply to specific patient populations. Standards of Medical Care in Diabetes(ADA). ESTIMATED AVERAGE GLUCOSE (MG/DL) 103 mg/dL [employer]Amos Santana ESTIMATED AVERAGE GLUCOSE (MMOL/L) 5.7 mmol/L [employer] Santana Comment: FASTING:YES FASTING: YES Test Performed at: [place] [address] [place] [address] ChikisAileen Dasilva Blood 06/15/2024 9:16 AM CDT 06/15/2024 9:17 AM CDT us Yg Lee MD CHEMISTRY ORDERABLES Final Re sult [facility] [phone] [facility] [place] [address] [place] [phone] * MAMMO 3D KIRILL SCREEN BILAT W OR WO CAD (05/16/2024 1:15 PM CDT) Anatomical Region Laterality Modality Breast Bilateral Mammography 05/16/2024 1:15 PM CDT Impressions 05/16/2024 2:36 PM CDT IMPRESSION: No mammographic evidence of malignancy in the bilateral breasts. Routine screening mammography is recommended in one year. OVERALL FINAL ASSESSMENT: BI-RADS CATEGORY 1 - Negative. DICTATION LOCATION: Ruth Ernandez 05/16/2024 2:36 PM CDT EXAMINATION: BILATERAL SCREENING [...] BI-RADS CATEGORY 1 - Negative. DICTATION LOCATION: [facility] Yg Lee MD MAMMO ORDERABLES Final Result from Last 3 Months or Most Recently Relevant to Health Maintenance Insurance RX [employer] RX Member Subscriber Plan / Payer (Ef fective 2020-Present) Name:Antoinette Da Silva Relation to Subscriber:Self Name:Antoinette Da Silva Payer ID:Not on file Type:RX Commercial Address: [place] Advance Directives For more information, please contact: [phone] Documents on File Type Date Recorded Patient Historical Archeologist Expl anation Advance Directive Living Will 10/20/2020 [...] 12:41 PM 10/31/2015 7:49 PM Care Teams Tuber Machine Cutter Relationship Specialty Start Date End Date Yg Lee MD PCP - General Internal Medicine 12/20/18
--- OUTSIDE RECORDS SUMMARY | 2024-11-23 00:14 | XMS_ITS | Clinical Summary ---
Author Organization [facility] Address [address] [place] [address] Phone Care Team Providers Care [place] Cutting Machine Operator Name Role Phone JAM MCDONNELL PA-C Primary Care Provider [phone] Reason for Visit and Chief Complaint HEART [...] Diagnosis HEART CENTER CHECK UP TIFFANY HOWARD [facility]- 4 10:58AM 11:28AM Insurance Includes: Active Insurance Policies Plan Name Member ID Group # Subscriber Relationship Effect cyn Dates 1 - [employer]OSS MEDICARE ADVANTAGE [id number] NIGHAT DELANEY Self Clinical Notes Includes: Clinical Notes from this encounter No Clinical Notes Recorded
--- OUTSIDE RECORDS SUMMARY | 2024-11-23 00:15 | XMS_ITS | Clinical Summary ---
Author Organization [facility] Address [address] [place] [address] Phone Care Team Providers Care Distance Education Director Name Role Phone Jose Cruz Ledezma Primary Care Provider [phone] Allergies Active Allergy Reactions Criticality Noted Date [...] age to complete this topic Insurance MEDICARE [employer] GENERIC Care Teams Distance Education Director Relationship Specialty Start Date End Date Jose Cruz Ledezma PAC [address] [place] [address] PCP - General Physician Survey And Mapping Technician 01/28/20
--- OUTSIDE RECORDS SUMMARY | 2024-11-23 00:15 | XMS_ITS | Clinical Summary ---
Author Organization [facility] Address [address] [place] [address] Phone Care Team Providers Care Tile Setter Supervisor Name Role Phone JAM MCDONNELL PA-C Primary Care Provider [phone] Reason for Visit and Chief Complaint HEART [...] Diagnosis HEART CENTER FOLLOW UP TIFFANY HOWARD [facility]- 3 1:47PM 2:40PM Insurance Includes: Active Insurance Policies Plan Name Member ID Group # Subscriber Relationship Effect cyn Dates 1 - [place] [employer] MED[employer]ARE ADVANTAGE [id number] NIGHAT DELANEY Self Clinical Notes Includes: Clinical Notes from this encounter No Clinical Notes Recorded
--- OUTSIDE RECORDS SUMMARY | 2024-11-23 00:15 | XMS_ITS | Clinical Summary ---
Author Organization [facility] Address [address] [place] [address] Phone Care Team Providers Care Neurosurgical Physician Assistant Name Role Phone JAM MCDONNELL PA-C Primary Care Provider [phone] Reason for Visit and Chief Complaint ECHOCARDIOGRAM [...] Subscriber Relationship Effect cyn Dates 1 - [place] [employer] MEDICARE ADVANTAGE [id number] NIGHAT DELANEY Self Clinical Notes Includes: Clinical Notes from this encounter No Clinical Notes Recorded
--- OUTSIDE RECORDS SUMMARY | 2024-11-23 00:15 | XMS_ITS | Encounter Summary ---
Author Organization [facility] Address [address] [place] [address] Care Team Providers Care Antenna Specialist Name Role Phone Yg Lee MD Primary Care Provider [phone] Shandra Ruffin APRN-TEAM FOREMAN Primary Care Provider Yg Lee MD Primary Care Provider [phone] Shandra Ruffin APRN-[facility] Primary Care Provider Yg Lee MD Primary Care Provider [phone] Shandra Ruffin APRN-[facility] Primary Care Provider Encounter Details Date Type Department Care Team (Late st Contact Info) Description 05/18/2019 Telephone [facility] [address] [place] [address] Mitchell Zamarripa MD [address] [place] [address] [place] [address] Social History Tobacco Use Types [...] a call. [place] Patient Call Back number: [phone]. documented in this encounter Plan of Treatment Not on file documented as of this encounter Visit Diagnoses Not on filedocumented in this encounter Care Teams Antenna Specialist Relationship Specialty Start Date End Date Yg Lee MD [address] [place] [address] PCP - General 10/28/11 05/23/19 Shandra Ruffin APRN-TEAM FOREMAN [address] [place], [place] [phone] PCP - General 05/24/19 07/20/20 Yg Lee MD [address] [place], [place] [phone] PCP - General Internal Medicine 07/21/20 07/21/20 Shandra Ruffin APRN-TEAM FOREMAN [address] [place], [place] [phone] PCP - General 07/22/20 11/15/21 Yg Lee MD [address] [place] [phone] PCP - General Internal Medicine 11/16/21 04/01/22 Shandra Ruffin APRN-TEAM FOREMAN [address] [place], [place] [phone] PCP - General 04/02/22 documented as of this encounter
--- OUTSIDE RECORDS SUMMARY | 2024-11-23 00:15 | XMS_ITS | Encounter Summary ---
Author Organization [facility] Address [address] [place] [address] Care Team Providers Care Farm Equipment Engine Mechanic Name Role Phone Jose Cruz Ledezma Primary Care Provider [phone] Yg Lee MD Primary Care Provider + Mitchell Zamarripa MD Unavailable [phone] Brit More INSPECTOR FINISHING Unavailable [phone] Cliff Ronquillo NP Unavailable [phone] Dick Aguilar Unavailable [phone] Gavin Sewell MD Unavailable [phone] Reason for Visit * Reason Onset Date Comments Scheduling Appointments 03/24/2020 Called f or DEXA appointment reminder Encounter Details Date Type Department Care Team (Late st Contact Info) Description 03/24/2020 Telephone [facility] [address] [place] [address] Valencia Hernandez RT Scheduling Appointments (Called for DEXA appointment reminder) Social History Tobacco Use Types Packs/Day Years Used Date Smoking Tobacco: Former Smokeless Tobacco: Never Alcohol Use Standard Drinks/Week Comments Yes 0 (1 standard drink = 0.6 oz pur e alcohol) occasional Comments No Sex and Gender Information Value Date Recorded Sex Assigned at Not on file 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 Gender Identity Not on file [...] COVID: Suspected 07/22/2024 07/22/2024 07/22/2024 9:25 AM VALVE 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 documented as of this encounter Care Teams Farm Equipment Engine Mechanic Relationship Specialty Start Date End Date Jose Cruz Ledezma PA [address] [place] [address] PCP - General 01/24/20 08/18/20 Yg Lee MD [address] [place] [address] PCP - General Internal Medicine 08/19/20 Mitchell Zamarripa MD [address] [place] [address] Referring Physician Rheumatology 03/11/22 Brit More NP [address] [place] [address] Nurse Practitioner Cardiovascular Disease 03/11/22 Cliff Ronquillo NP [address] [place] [address] [address] [place] [address] Nurse Practitioner Nurse Practitioner 05/05/22 Dick Aguilar PA [address] [place] [address] [address] [place] [address] Physician Timber Sprinkler Orthopedic Surgery 11/11/22 Gavin Sewell MD [address] [facility] [address] GONZALE[address] B [facility] [address] [place] [address] Surgeon Orthopedic Surgery 12/24/22 documented as of this encounter
--- OUTSIDE RECORDS SUMMARY | 2024-11-23 00:15 | XMS_ITS | Clinical Summary ---
Author Organization [facility] Address [address] [place] [address] Phone Care Team Providers Care Cell Attendant Name Role Phone JAM MCDONNELL PA-C Primary Care Provider [phone] Reason for Visit and Chief Complaint LEXISCAN [...] Time Diagnosis LEXISCAN CARDIOLITE ELTON GROVER MD [facility] 08/02/20 23 9:30AM 11:24AM Insurance Includes: Active Insurance Policies Plan Name Member ID Group # Subscriber Relationship Effect cyn Dates 1 - [employer] MEDICARE ADVANTAGE [id number] NIGHAT DELANEY Self Clinical Notes Includes: Clinical Notes from this encounter No Clinical Notes Recorded
--- OUTSIDE RECORDS SUMMARY | 2024-11-23 00:15 | XMS_ITS | Clinical Summary ---
Author Organization [facility] Address [address] [place] [address] Care Team Providers Care Vacuum Plastic Forming Machine Operator Name Role Phone Mariah Adams MD Primary Care Provider + Mitchell Zamarripa MD Unavailable [phone] Brit More NP Unavailable [phone] Cliff Ronquillo NP Unavailable Dick Aguilar Unavailable [phone] Gavin Sewell MD Unavailable Allergies Active Allergy [...] 1 tablet (100 mcg total) by mouth broomcorn press feeder before breakfast 1 Active celecoxib (CeleBREX) 100 [...] Assessment & Plan (08/14/2024 9:48 AM MANAGER CORPORATE RESPONSIBILITY): The patient likely has chronic cholecystitis given [...] (04/23/2022): Added automatically from request for surgery [id number] Posterior tibial tendon dysfunction 03/02/2022 Flat foot [...] Assessment & Plan (09/19/2018 1:30 PM MANAGER CORPORATE RESPONSIBILITY): Low disease activity today on exam. Take [...] Care Team Description 09/10/2024 9:16 AM MANAGER CORPORATE RESPONSIBILITY Anesthesia Event [facility] Operating Room [address] [place] [address] Tonia Gutierrez MD Reynolds, Ethan Emerson, MD 09/10/2024 9:15 AM MANAGER CORPORATE RESPONSIBILITY - 09/10/2024 10:45 AM MANAGER CORPORATE RESPONSIBILITY Surgery [facility] Operating Room [address] [place] [address] Vignesh Hawkins MD LAPAROSCOPIC CHOLECYSTECTOMY 09/10/2024 8:13 AM MANAGER CORPORATE RESPONSIBILITY - 09/10/2024 2:39 PM MANAGER CORPORATE RESPONSIBILITY Hospital Encounter [facility] Operating Room [address] [place] [address] Vignesh Hakwins MD Calculus of gallbladder with cholecystitis without [...] staff should administer the PHQ-9) 0 11/23/2023 [facility] - Occupational Stress [...] place to sleep or slept in a fpc (including now)? No 12/23/2022 Personal Safety Answer Date Recorded Have you ever been in or are you currently in a harmful physical or emotional relationship or is someone making you feel afraid or unsafe? Denies 09/10/2024 Comments No Sex and Gender Information Value Date Recorded Sex Assigned at Not on file Legal Sex Female 11:50 PM MANAGER CORPORATE RESPONSIBILITY Gender Identity Not on file Sexual Orientation Not on file Obstetrics History Last Filed Vital Signs Vital Sign Reading Time Taken Comments Blood Pressure 119/69 09/10/2024 2:00 PM MANAGER CORPORATE RESPONSIBILITY Pulse 69 09/10/2024 2:00 PM MANAGER CORPORATE RESPONSIBILITY Temperature 36.4 C (97.6 F) 09/10/2024 2:00 PM MANAGER CORPORATE RESPONSIBILITY Respiratory Rate 16 09/10/2024 2:00 PM MANAGER CORPORATE RESPONSIBILITY Oxygen Saturation 94% 09/10/2024 2:00 PM MANAGER CORPORATE RESPONSIBILITY Inhaled Oxygen Concentration - - Weight 67.6 kg (149 lb 0.5 oz) 09/10/2024 8:15 A M MANAGER CORPORATE RESPONSIBILITY Height 154.9 cm (5' 1 ) 09/10/2024 8:15 AM MANAGER CORPORATE RESPONSIBILITY Body Mass Index 28.16 09/10/2024 8:15 AM MANAGER CORPORATE RESPONSIBILITY Plan of Treatment Health Maintenance Due Date [...] Completed 11/01/2014 Medical Devices Implanted Type Area Supply Specialist Device Identifier Shelf Expiration Date Model / Serial / Lot Exactech Restrictor Cement Cemex Small Od13mm Tpa-13 - [id number] Implanted:Qty: 1 on 05/04/2022 by Gavin Sewell MD at [facility] Left: Shoulder Exactech 08/28/2023 TPA-13 / / [id number] Exactech Equinoxe Reverse Shoulder +0mm Tray Humeral Adapter 320-10-00 - [id number] - [id number] Implanted:Qty: 1 on 05/04/2022 by Gavin Sewell MD at [facility] Ex[employer]ech [id number] 04/07/2032 320-1000 / [id number] / Exactech Equinoxe 40mm Small Reverse Constrain Shoulder +2.5mm Liner 320-40-13 - [id number] - [id number] Implanted:Qty: 1 on 05/04/2022 by Gavin Sewell MD at [facility] Ex[employer]ech 01/31/2024 320-40-13 / [id number] / Exactech Equinoxe Lock Reverse Shoulder Glenosphere Screw Bone 320-15- - [id number] - [id number] Implanted:Qty: 1 on 05/04/2022 by Gavin Sewell MD at [facility] Left: Shoulder Ex[employer]ech 03/09/2027 320-15- / [id number] / Exactech Reverse Torque Define Shoulder Kit Screw 320-20-00 - [id number] - [id number] Implanted:Qty: 1 on 05/04/2022 by Gavin Sewell MD at [facility] Left: Shoulder [employer]ech 02/03/2027 320-20-00 / [id number] / Ex[employer]ech Equinoxe Small Reverse Superior Posterior Augment Shoulder Left 320-35-07 - [id number] - [id number] Implanted:Qty: 1 on 05/04/2022 by Gavin Sewell MD at [facility] Left: Shoulder [employer]ech [id number] 04/08/2031 320-35-07 / [id number] / Exactech Equinoxe 10mm Stem Humeral Sterile 300-01-10 - [id number] - [id number] Implanted:Qty: 1 on 05/04/2022 by Gavin Sewell MD at [facility] Left: Shoulder Exactech [id number] 09/07/2031 300-10 / [id number] / [employer] Cement Bone Simplex Gentamicin High Viscosity 40gm 6195-1-001 - [id number] Implanted:Qty: 1 on 05/04/2022 by Gavin Sewell MD at [facility] Left: Shoulder [employer] 09/28/2023 6195-1-001 / / [id number] Exactech Equinoxe 40mm 24.3mm Small Reverse Shoulder Sphere Glenoid 320-31-40 - [id number] - [id number] Implanted:Qty: 1 on 05/04/2022 by Gavin Sewell MD at [facility] Left: Shoulder Exactech [id number] 12/11/2030 320-31-40 / [id number] / Ex[employer]ech Equinoxe 4.5mm 38mm Kit Compression Lock Cap Reverse Shoulder 320-20-38 - [id number] - [id number] Implanted:Qty: 1 on 05/04/2022 by Gavin Sewell MD at [facility] Left: Shoulder [employer]ech [id number] 01/12/2027 320-20-38 / [id number] / Exactech Equinoxe 4.5mm 34mm Kit Compression Lock Cap Reverse Shoulder 320-20-34 - [id number] - [id number] Implanted:Qty: 1 on 05/04/2022 by Gavin Sewell MD at [facility] Left: Shoulder Exactech [id number] 07/14/2026 320-20-34 / [id number] / [employer] Insert Tibial Knee Fixed Lm Posterior Stabilized Attune 7mm Size 5 Polyethylene [id number] - [id number] Implanted:Qty: 1 on 11/10/2022 by Gavin Sewell MD at [facility] Left: Knee [employer] 07/28/2030 [id number] / / [id number] [employer] Attune Cruciate Retain Cementless Knee Left 5 Component Femoral [id number] - [id number] Implanted:Qty: 1 on 11/10/2022 by Gavin Sewell MD at [facility] Left: Knee [employer] 04/28/2032 [id number] / / [id number] [employer] Attune Fb Tib Base Sz 5 Por [id number] - [id number] Implanted:Qty: 1 on 11/10/2022 by Gavin Sewell MD at [facility] Left: Knee [employer] 03/28/2032 [id number] / / [id number] Procedures Procedure Name Priority Date/Time Associated Diagnosis Comments SURGICAL PATHOLOGY Routine 09/10/2024 10 :29 AM MANAGER CORPORATE RESPONSIBILITY Calculus of gallbladder with cholecystitis without biliary obstruction, unspecified cholecystitis acuity KS AN ELECTIVE ENDOTRACHEAL AIRWAY Routine 09/10/2024 9:36 AM MANAGER CORPORATE RESPONSIBILITY LAPAROSCOPIC CHOLECYSTECTOMY 09/10/2024 9:02 AM MANAGER CORPORATE RESPONSIBILITY Calculus of gallbladder with cholecystitis without biliary obstruction, unspecified cholecystitis acuity EGFR STAT 09/10/2024 8:47 AM MANAGER CORPORATE RESPONSIBILITY DIFFERENTIAL AUTO STAT 09/10/2024 8:4 7 AM MANAGER CORPORATE RESPONSIBILITY ANTIBODY SCREEN STAT 09/10/2024 8:47 AM MANAGER CORPORATE RESPONSIBILITY ABO/RH STAT 09/10/2024 8:47 AM MANAGER CORPORATE RESPONSIBILITY TYPE AND SCREEN STAT 09/10/2024 8:47 AM MANAGER CORPORATE RESPONSIBILITY CBC WITH AUTO DIFFERENTIAL STAT 09/10/2024 8:47 AM MANAGER CORPORATE RESPONSIBILITY COMPREHENSIVE METABOLIC PANEL STAT 09/10/2024 8:47 AM MANAGER CORPORATE RESPONSIBILITY B ABO / RH CONFIRMATION TESTING STAT 09/10/2024 8:45 AM MANAGER CORPORATE RESPONSIBILITY SERUM HEPATITIS C AB Routine 11/01/2014 8:32 AM MANAGER CORPORATE RESPONSIBILITY DIGITAL MAMMOGRAPHY Routine 12/11/2013 1 1:01 AM CDT from Last 3 Months or Most Recently Relevant to Health Maintenance Results * Surgical pathology (09/10/2024 10:29 AM MANAGER CORPORATE RESPONSIBILITY) Tissue (Gallbladder) 09/10/2024 9:51 AM MANAGER CORPORATE RESPONSIBILITY Narrative PATHOLOGY [facility] ([facility]) - 09/11/2024 3:50 PM MANAGER CORPORATE RESPONSIBILITY EPIC results best viewed via link to PDF [facility] Department of Pathology [address] [place] [phone] Note to Patients: This report may contain [...] Final Report Patient Name: ANTOINETTE DELANEY Address: [address] [place], [place] [id number] Gender: F : 1960 (Age: 64) Service: Surgery Location: [facility] Hospital #: [id number] Patient Type: [facility] Taken: 09/10/2024 Received: 09/10/2024 Accessioned: 09/10/2024 Reported: [...] [facility] as part of an ongoing quality audit representative program and in compliance with federally mandated [...] characteristics determined by the Surgical Pathology Department [facility]. It has not been cleared or approved by the U. S. Food and Drug Administration. Note for decalcified specimens: This assay has not been validated on decalcified tissues. Results should be interpreted with caution given the possibility of false negativity on decalcified specimens us Vignesh Hawkins MD LAB PATHOLOGY OR DERABLES Final Result PATHOLOGY [facility] ([address] [address] * [place] AN ELECTIVE ENDOTRACHEAL AIRWAY (09/10/2024 9:36 AM MANAGER CORPORATE RESPONSIBILITY) Cliff Lake CRNA - 09/10/2024 9:36 AM MANAGER CORPORATE RESPONSIBILITY Cliff Davis CRNA 09/10/2024 9:37 AM Airway [...] Result * eGFR (09/10/2024 8:47 AM MANAGER CORPORATE RESPONSIBILITY) eGFR >90 >=60 mL/min/1. 73 m2 Comment: [...] reviewed 2021. Blood 09/10/2024 8:47 AM MANAGER CORPORATE RESPONSIBILITY 09/10/2024 8:50 AM MANAGER CORPORATE RESPONSIBILITY us Vignesh Hawkins MD LAB BLOOD ORDERA BLES Final Result [facility] ([place]) 1 [facility] Department of Laboratories [place], [place] [id number] * Differential, auto (09/10/2024 8:47 AM MANAGER CORPORATE RESPONSIBILITY) Neutrophil abs 5.3 1.5 - 6.5 K/cumm [...] on 2017. Blood 09/10/2024 8:47 AM MANAGER CORPORATE RESPONSIBILITY 09/10/2024 8:50 AM MANAGER CORPORATE RESPONSIBILITY us Vignesh Hawkins MD LAB BLOOD ORDERA BLES Final Result [facility] ([place]) 1 [facility] Department [place] [address] * (ABNORMAL) CBC with auto differential (09/10/2024 8:47 AM MANAGER CORPORATE RESPONSIBILITY) WBC 7.1 3.8 - 9.9 K/cumm Hgb [...] [facility] ([facility]) Blood 09/10/2024 8:47 AM MANAGER CORPORATE RESPONSIBILITY 09/10/2024 8:50 AM MANAGER CORPORATE RESPONSIBILITY Vignesh Hawkins MD LAB BLOOD ORDERA BLES Final Result Performing Organization Address City/[facility] de Phone Number [facility] ([place]) 1 [facility] Department [place] [address] * ABO/Rh (09/10/2024 8:47 AM MANAGER CORPORATE RESPONSIBILITY) ABO/Rh B Positive Blood 09/10/2024 8:47 AM MANAGER CORPORATE RESPONSIBILITY 09/10/2024 8:49 AM MANAGER CORPORATE RESPONSIBILITY Narrative [facility] ([facility]) - 09/10/2024 9:11 AM MANAGER CORPORATE RESPONSIBILITY Has the patient had Daratumumab or Isatuximab in the past 6 months?->Unknown Vignesh Hawkins MD LAB BLOOD BANK T EST ORDERABLES Final Result [facility] ([place]) 1 [facility] Department [place] [address] * Antibody screen (09/10/2024 8:47 AM MANAGER CORPORATE RESPONSIBILITY) Pathologist [facility] Lonnie, indirect, Gel Interpretation Negative ABSC Blood 09/10/2024 8:47 AM MANAGER CORPORATE RESPONSIBILITY 09/10/2024 8:49 AM MANAGER CORPORATE RESPONSIBILITY Narrative [facility] ([place]) - 09/10/2024 9:25 AM MANAGER CORPORATE RESPONSIBILITY Has the patient had Daratumumab or Isatuximab in the past 6 months?->Unknown Vignesh Hawkins MD LAB BLOOD BANK T EST ORDERABLES Final Result Performing Organization Address City/[facility]/ZIP Co de Phone Number [facility] ([place]) 1 [facility] [place] [address] * (ABNORMAL) Comprehensive metabolic panel (09/10/2024 8:47 AM MANAGER CORPORATE RESPONSIBILITY) [facility] Sodium 133(L) 135 - 145 mmol/L Comment:sandra moreno(AMB SUrg) Potassium, pl 2.9(C) 3.3 - 4.9 mmol/L [facility] ([place]) Comment:Critical Result call ed by [email or web address] at 2024-09-10 09:18:13. Result Read Back by [...] cisnerosr(AMB SUrg) Blood 09/10/2024 8:47 AM MANAGER CORPORATE RESPONSIBILITY 09/10/2024 8:50 AM MANAGER CORPORATE RESPONSIBILITY Vignesh Hawkins MD LAB BLOOD ORDERA BLES Final Result [facility] ([place]) 1 [facility] Department of Laboratories [place], [place] [id number] * ABO / Rh Confirmation Testing (09/10/2024 8:45 AM MANAGER CORPORATE RESPONSIBILITY) ABO/Rh Confirmation B Positive [facility] Blood 09/10/2024 8:45 AM MANAGER CORPORATE RESPONSIBILITY 09/10/2024 9:13 AM MANAGER CORPORATE RESPONSIBILITY Vignesh Hawkins MD LAB BLOOD ORDERA BLES Final Result [facility] ([place]) 1 [facility] Department [place] [address] [facility] * Serum Hepatitis C ab (11/01/2014 8:32 AM MANAGER CORPORATE RESPONSIBILITY) HCV ab Negative NEG HISTORICAL RESULTS Serum 11/01/2014 8:32 AM MANAGER CORPORATE RESPONSIBILITY Narrative HISTORICAL RESULTS - 11/02/2014 3:46 AM MANAGER CORPORATE RESPONSIBILITY Interpretive Data If confirmation is required, call Laboratory Customer Service to request sample to be sent to [facility] for Hepatitis C Virus (HCV) RNA Detection and Quantitation by Real-Time Reverse Field Tax Auditor-PCR (RT-PCR). Current interpretive data was last revised on 2011 us aFriha Whitley MD LAB BLOOD ORDERABLES Final R esult HISTORICAL RESULTS * DIGITAL MAMMOGRAPHY (12/11/2013 11:01 AM CDT) Anatomical Region Laterality Modality Breast Mammography 12/11/2013 11:0 1 AM CDT Narrative 12/12/2013 12:15 AM CDT Vm Mammogram Performed by: LT Screening Mamm Bi Acc#: [id number] DATE OF EXAM: Dec 11 2013 CLINICAL [...] Performed by: LT Screening Mamm Bi Acc#: [id number] DATE OF EXAM: Dec 11 2013 CLINICAL [...] Advance Directives For more information, please contact: [phone] * Full Code (Latest Code Status on File) Date Activated Date Inactivated Comments 11/22/2023 6:25 PM 11/25/2023 11:09 PM * Full Code Date Activated Date Inactivated Comments 12/21/2022 5:34 PM 12/24/2022 8:16 PM * Full Code Date Activated Date Inactivated Comments 11/10/2022 4:25 PM 11/11/2022 3:51 PM * Full Code Date Activated Date Inactivated Comments 05/04/2022 1:38 PM 05/05/2022 6:47 PM Care Teams Vacuum Plastic Forming Machine Operator Relationship Specialty Start Date End Date Mariah Adams MD PCP - General Internal Medicine 08/19/20 Mitchell Zamarripa MD Referring Physician Rheumatology 03/11/22 Brit More NP Nurse Practitioner Cardiovascular Disease 03/11/22 Cliff Ronquillo NP [address] [place] [address] [address] [place] [address] Nurse Practitioner Nurse Practitioner 05/05/22 Dick Aguilar PA [address] [place] [address] [address] [place] [address] Physician Keyboard Operator Orthopedic Surgery 11/11/22 Gavin Sewell MD [address] [place] [address] [address] [place] [address] Surgeon Orthopedic Surgery 12/24/22
--- OUTSIDE RECORDS SUMMARY | 2024-11-23 00:15 | XMS_ITS | Referral Summary ---
Author Organization [facility] Address [address] [place] [address] Care Team Providers Care Preconstruction Manager Name Role Phone Mariah Adams MD Primary Care Provider + Mitchell Zamarripa MD Unavailable [phone] Brit More INSIDE SALES PERSON Unavailable [phone] Cliff Ronquillo NP Unavailable [phone] Dick Aguilar Unavailable [phone] Gavin Sewell MD Unavailable [phone] Encounters Date Type Department Care Team Description 09/10/2024 9:15 AM BIODIESEL PROCESS CONTROL TECHNICIAN - 09/10/2024 10:45 AM BIODIESEL PROCESS CONTROL TECHNICIAN Surgery [facility] Operating Room [address] [place] [address] Vignesh Hawkins MD LAPAROSCOPIC CHOLECYSTECTOMY 09/10/2024 9:16 AM BIODIESEL PROCESS CONTROL TECHNICIAN Anesthesia Event [facility] Operating Room [address] [place] [address] Tonia Gutierrez MD Reynolds, Ethan Emerson, MD 09/10/2024 8:13 AM BIODIESEL PROCESS CONTROL TECHNICIAN - 09/10/2024 2:39 PM BIODIESEL PROCESS CONTROL TECHNICIAN Hospital Encounter [facility] Operating Room [address] [place] [address] Vignesh Hawkins MD Calculus of gallbladder with [...] 1 tablet (100 mcg total) by mouth hatchery laborer before breakfast 1 Active celecoxib (CeleBREX) 100 [...] 08/14/2024 Assessment & Plan (08/14/2024 9:48 AM BIODIESEL PROCESS CONTROL TECHNICIAN): The patient likely has chronic cholecystitis given [...] (04/23/2022): Added automatically from request for surgery [id number] Posterior tibial tendon dysfunction 03/02/2022 Flat foot [...] 01/04/2018 Assessment & Plan (09/19/2018 1:30 PM BIODIESEL PROCESS CONTROL TECHNICIAN): Low disease activity today on exam. Take [...] week 12/23/2022 How often do you attend [facility] or [facility] services? Never 12/23/2022 Do you belong to any clubs o r organizations such as advent groups, unions, fraternal or athletic groups, or [...] staff should administer the PHQ-9) 0 11/23/2023 [facility] - Occupational [...] place to sleep or slept in a long-term (including now)? No 12/23/2022 Personal Safety Answer Date Recorded Have you ever been in or are you currently in a harmful physical or emotional relationship or is someone making you feel afraid or unsafe? Denies 09/10/2024 Comments No Sex and Gender Information Value Date Recorded Sex Assigned at Not on file Legal Sex Female 11:50 PM BIODIESEL PROCESS CONTROL TECHNICIAN Gender Identity Not on file Sexual Orientation Not on file Last Filed Vital Signs Vital Sign Reading Time Taken Comments Blood Pressure 119/69 09/10/2024 2:00 PM BIODIESEL PROCESS CONTROL TECHNICIAN Pulse 69 09/10/2024 2:00 PM BIODIESEL PROCESS CONTROL TECHNICIAN Temperature 36.4 C (97.6 F) 09/10/2024 2:00 PM BIODIESEL PROCESS CONTROL TECHNICIAN Respiratory Rate 16 09/10/2024 2:00 PM BIODIESEL PROCESS CONTROL TECHNICIAN Oxygen Saturation 94% 09/10/2024 2:00 PM BIODIESEL PROCESS CONTROL TECHNICIAN Inhaled Oxygen Concentration - - Weight 67.6 kg (149 lb 0.5 oz) 09/10/2024 8:15 A M BIODIESEL PROCESS CONTROL TECHNICIAN Height 154.9 cm (5' 1 ) 09/10/2024 8:15 AM BIODIESEL PROCESS CONTROL TECHNICIAN Body Mass Index 28.16 09/10/2024 8:15 AM BIODIESEL PROCESS CONTROL TECHNICIAN Plan of Treatment Not on file Medical Devices Implanted Type Area Metalizer Field Operation Device Identifier Shelf Expiration Date Model / Serial / Lot Exactech Restrictor Cement Cemex Small Od13mm Tpa-13 - [id number] Implanted:Qty: 1 on 05/04/2022 by Gavin Sewell MD at [facility] Left: Shoulder [employer]ech 08/28/2023 TPA-13 / / [id number] Ex[employer]ech Equinoxe Reverse Shoulder +0mm Tray Humeral Adapter 320-10-00 - [id number] - [id number] Implanted:Qty: 1 on 05/04/2022 by Gavin Sewell MD at [facility] Ex[employer] [id number] 04/07/2032 320-10-00 / [id number] / [employer] Equinoxe 40mm Small Reverse Constrain Shoulder +2.5mm Liner 320-40-13 - [id number] - [id number] Implanted:Qty: 1 on 05/04/2022 by Gavin Sewell MD at [facility] [employer] 01/31/2024 320-40-13 / [id number] / [employer]ech Equinoxe Lock Reverse Shoulder Glenosphere Screw Bone 320-15- - [id number] - [id number] Implanted:Qty: 1 on 05/04/2022 by Gavin Sewell MD at [facility] Left: Shoulder [employer]ech 03/09/2027 320-15 / [id number] / Exactech Reverse Torque Define Shoulder Kit Screw 320-20 - [id number] - [id number] Implanted:Qty: 1 on 05/04/2022 by Gavin Sewell MD at [facility] Left: Shoulder [employer] 02/03/2027 32020 / [id number] / [employer]ech Equinoxe Small Reverse Superior Posterior Augment Shoulder Left 320-35- - [id number] - [id number] Implanted:Qty: 1 on 05/04/2022 by Gavin Sewell MD at [facility] Left: Shoulder [employer] [id number] 04/08/2031 320-35- / [id number] / Ex[employer]ech Equinoxe 10mm Stem Humeral Sterile 300-09-07 - [id number] - [id number] Implanted:Qty: 1 on 05/04/2022 by Gavin Sewell MD at [facility] Left: Shoulder [employer] [id number] 09/07/2031 300-09-07 / [id number] / [employer] Cement Bone Simplex Gentamicin High Viscosity 40gm 6195-1-001 - [id number] Implanted:Qty: 1 on 05/04/2022 by Gavin Sewell MD at [facility] Left: Shoulder [employer] 09/28/2023 6195-1-001 / / [id number] Ex[employer]ech Equinoxe 40mm 24.3mm Small Reverse Shoulder Sphere Glenoid 320-31- - [id number] - [id number] Implanted:Qty: 1 on 05/04/2022 by Gavin Sewell MD at [facility] Left: Shoulder [employer] [id number] 12/11/2030 320--40 / [id number] / [employer] Equinoxe 4.5mm 38mm Kit Compression Lock Cap Reverse Shoulder [id number] - [id number] - [id number] Implanted:Qty: 1 on 05/04/2022 by Gavin Sewell MD at [facility] Left: Shoulder [employer] [id number] 01/12/2027 320-20-38 / [id number] / [employer]ech Equinoxe 4.5mm 34mm Kit Compression Lock Cap Reverse Shoulder 320-20-34 - [id number] - [id number] Implanted:Qty: 1 on 05/04/2022 by Gavin Sewell MD at [facility] Left: Shoulder [employer]ech [id number] 07/14/2026 320-20-34 / [id number] / [employer] Insert Tibial Knee Fixed Lm Posterior Stabilized Attune 7mm Size 5 Polyethylene [id number] - [id number] Implanted:Qty: 1 on 11/10/2022 by Gavin Sewell MD at [facility] Left: Knee [employer] 07/28/2030 [id number] / / [id number] [employer] Attune Cruciate Retain Cementless Knee Left 5 Component Femoral [id number] - [id number] Implanted:Qty: 1 on 11/10/2022 by Gavin Sewell MD at [facility] Left: Knee [employer] 04/28/2032 [id number] / / [id number] [employer] Attune Fb Tib Base Sz 5 Por [id number] - [id number] Implanted:Qty: 1 on 11/10/2022 by Gavin Sewell MD at [facility] Left: Knee [employer] 03/28/2032 [id number] / / [id number] Procedures Procedure Name Priority Date/Time Associated Diagnosis Comments SURGICAL PATHOLOGY Routine 09/10/2024 10 :29 AM BIODIESEL PROCESS CONTROL TECHNICIAN Calculus of gallbladder with cholecystitis without biliary obstruction, unspecified cholecystitis acuity LA AN ELECTIVE ENDOTRACHEAL AIRWAY Routine 09/10/2024 9:36 AM BIODIESEL PROCESS CONTROL TECHNICIAN LAPAROSCOPIC CHOLECYSTECTOMY 09/10/2024 9:02 AM BIODIESEL PROCESS CONTROL TECHNICIAN Calculus of gallbladder with cholecystitis without biliary obstruction, unspecified cholecystitis acuity EGFR STAT 09/10/2024 8:47 AM BIODIESEL PROCESS CONTROL TECHNICIAN DIFFERENTIAL AUTO STAT 09/10/2024 8:4 7 AM BIODIESEL PROCESS CONTROL TECHNICIAN ANTIBODY SCREEN STAT 09/10/2024 8:47 AM BIODIESEL PROCESS CONTROL TECHNICIAN ABO/RH STAT 09/10/2024 8:47 AM BIODIESEL PROCESS CONTROL TECHNICIAN TYPE AND SCREEN STAT 09/10/2024 8:47 AM BIODIESEL PROCESS CONTROL TECHNICIAN CBC WITH AUTO DIFFERENTIAL STAT 09/10/2024 8:47 AM BIODIESEL PROCESS CONTROL TECHNICIAN COMPREHENSIVE METABOLIC PANEL STAT 09/10/2024 8:47 AM BIODIESEL PROCESS CONTROL TECHNICIAN B ABO / RH CONFIRMATION TESTING STAT 09/10/2024 8:45 AM BIODIESEL PROCESS CONTROL TECHNICIAN SERUM HEPATITIS C AB Routine 11/01/2014 8:32 AM BIODIESEL PROCESS CONTROL TECHNICIAN DIGITAL MAMMOGRAPHY Routine 12/11/2013 1 1:01 AM CDT from Last 3 Months or Most Recently Relevant to Health Maintenance Results * Surgical pathology (09/10/2024 10:29 AM BIODIESEL PROCESS CONTROL TECHNICIAN) Tissue (Gallbladder) 09/10/2024 9:51 AM BIODIESEL PROCESS CONTROL TECHNICIAN Narrative PATHOLOGY [facility] ([place]) - 09/11/2024 3:50 PM BIODIESEL PROCESS CONTROL TECHNICIAN EPIC results best viewed via link to PDF [facility] Department of Pathology [address] [place] [address] Note to Patients: This report may [...] Final Report Patient Name: ANTOINETTE DELANEY Address: [address] [place] [id number] Gender: F : 1960 (Age: 64) Service: Surgery Location: [facility] Hospital #: [id number] Patient Type: [facility] Taken: 09/10/2024 Received: 09/10/2024 Accessioned: 09/10/2024 Reported: [...] the Surgical Pathology Department at [facility] as part of an ongoing software quality assurance engineer program and in compliance with federally [...] characteristics determined by the Surgical Pathology Department [facility]. It has not been cleared or approved by the U. S. Food and Drug Administration. Note for decalcified specimens: This assay has not been validated on decalcified tissues. Results should be interpreted with caution given the possibility of false negativity on decalcified specimens us Vignesh Hawkins MD LAB PATHOLOGY OR DERABLES Final Result PATHOLOGY [facility] ([place]) [address] [place] [address] * LA AN ELECTIVE ENDOTRACHEAL AIRWAY (09/10/2024 9:36 AM BIODIESEL PROCESS CONTROL TECHNICIAN) Cliff Lake CRNA - 09/10/2024 9:36 AM BIODIESEL PROCESS CONTROL TECHNICIAN Cliff Davis CRNA 09/10/2024 9:37 AM Airway Patient location: OR Urgency: elective Indications for airway management: anesthesia and airway protection Difficult airway: no Staff: Placed by: RELAY TESTER: Cliff Davis CRNA Emergent airway documentation: Risks [...] nal Result * eGFR (09/10/2024 8:47 AM BIODIESEL PROCESS CONTROL TECHNICIAN) eGFR >90 >=60 mL/min/1. 73 m2 Comment: [...] last reviewed 2021. Blood 09/10/2024 8:47 AM BIODIESEL PROCESS CONTROL TECHNICIAN 09/10/2024 8:50 AM BIODIESEL PROCESS CONTROL TECHNICIAN us Vignesh Hawkins MD LAB BLOOD ORDERA BLES Final Result [facility] ([place]) 1 [facility] Department of Laboratories [place], [place] [id number] * Differential, auto (09/10/2024 8:47 AM BIODIESEL PROCESS CONTROL TECHNICIAN) Neutrophil abs 5.3 1.5 - 6.5 K/cumm Imm gran abs 0.0 0.0 - 0.1 K/cumm [facility] ([place]) Lymphocyte abs 0.8 0.8 - 3.3 K/cumm [facility] ([place]) Monocyte abs 0.6 0.2 - 0.8 K/cumm [facility] ([place]) Eosinophil abs 0.3 0.0 - 0.5 K/cumm [facility] ([place]) Basophil abs 0.1 0.0 - 0.1 K/cumm [facility] ([place]) Neutrophil pct 74.8 % [facility] ([place]) Comment: Interpretive Data Percent cell count reference [...] revised on 2017. Blood 09/10/2024 8:47 AM BIODIESEL PROCESS CONTROL TECHNICIAN 09/10/2024 8:50 AM BIODIESEL PROCESS CONTROL TECHNICIAN us Vignesh Hawkins MD LAB BLOOD ORDERA BLES Final Result [facility] ([place]) 1 [facility] Department of Laboratories [place], [place] [id number] * (ABNORMAL) CBC with auto differential (09/10/2024 8:47 AM BIODIESEL PROCESS CONTROL TECHNICIAN) WBC 7.1 3.8 - 9.9 K/cumm Hgb [...] [facility] ([place]) Blood 09/10/2024 8:47 AM BIODIESEL PROCESS CONTROL TECHNICIAN 09/10/2024 8:50 AM BIODIESEL PROCESS CONTROL TECHNICIAN Vignesh Hawkins MD LAB BLOOD ORDERA BLES Final Result [facility] ([place]) 1 [facility] [place] [address] * ABO/Rh (09/10/2024 8:47 AM BIODIESEL PROCESS CONTROL TECHNICIAN) [facility] ABO/Rh B Positive Blood 09/10/2024 8:47 AM BIODIESEL PROCESS CONTROL TECHNICIAN 09/10/2024 8:49 AM BIODIESEL PROCESS CONTROL TECHNICIAN Narrative [facility] ([place]) - 09/10/2024 9:11 AM BIODIESEL PROCESS CONTROL TECHNICIAN Has the patient had Daratumumab or Isatuximab in the past 6 months?->Unknown Vignesh Hawkins MD LAB BLOOD BANK T EST ORDERABLES Final Result [facility] ([place]) 1 [facility] [place] [place] [address] * Antibody screen (09/10/2024 8:47 AM BIODIESEL PROCESS CONTROL TECHNICIAN) Lonnie, indirect, Gel Interpretation Negative ABSC Blood 09/10/2024 8:47 AM BIODIESEL PROCESS CONTROL TECHNICIAN 09/10/2024 8:49 AM BIODIESEL PROCESS CONTROL TECHNICIAN Narrative [facility] ([place]) - 09/10/2024 9:25 AM BIODIESEL PROCESS CONTROL TECHNICIAN Has the patient had Daratumumab or Isatuximab in the past 6 months?->Unknown Vignesh Hawkins MD LAB BLOOD BANK T EST ORDERABLES Final Result [facility] ([place]) 1 [facility] Department [place] [address] * (ABNORMAL) Comprehensive metabolic panel (09/10/2024 8:47 AM BIODIESEL PROCESS CONTROL TECHNICIAN) Pathologist [facility] Sodium 133(L) 135 - 145 mmol/L Comment:sandra moreno(AMB SUrg) Potassium, pl 2.9(C) 3.3 - 4.9 mmol/L [facility] ([place]) Comment:Critical Result call ed by [email or web address] at 2024-09-10 09:18:13. Result Read Back by sandra moreno(AMB SUrg) Chloride 94(L) 97 - 110 mmol/L [facility] ([place]) Comment:sandra moreno(AMB SUrg) CO2 25 22 - 32 mmol/L [facility] ([place]) Comment:sandra moreno(AMB SUrg) Anion gap 14 2 - 15 mmol/L [facility] ([place]) Comment:sandra moreno(AMB SUrg) BUN 12 6 - 25 mg/dL [facility] ([place]) Comment:sandra moreno(AMB SUrg) Creatinine 0.68 [...] Comment:sandra cisnerosr(AMB SUrg) Blood 09/10/2024 8:47 AM BIODIESEL PROCESS CONTROL TECHNICIAN 09/10/2024 8:50 AM BIODIESEL PROCESS CONTROL TECHNICIAN Vignesh Hawkins MD LAB BLOOD ORDERA BLES Final Result Performing Organization Address [facility] Co de Phone Number [facility] ([place]) 1 [facility] [place] [address] * ABO / Rh Confirmation Testing (09/10/2024 8:45 AM BIODIESEL PROCESS CONTROL TECHNICIAN) ABO/Rh Confirmation B Positive [facility] Blood 09/10/2024 8:45 AM BIODIESEL PROCESS CONTROL TECHNICIAN 09/10/2024 9:13 AM BIODIESEL PROCESS CONTROL TECHNICIAN Vignesh Hawkins MD LAB BLOOD ORDERA BLES Final Result Performing Organization Address [facility]/ZIP Co de Phone Number [facility] ([place]) 1 [facility] [place] [place] [address] [facility] * Serum Hepatitis C ab (11/01/2014 8:32 AM BIODIESEL PROCESS CONTROL TECHNICIAN) HCV ab Negative NEG HISTORICAL RESULTS Serum 11/01/2014 8:32 AM BIODIESEL PROCESS CONTROL TECHNICIAN Narrative HISTORICAL RESULTS - 11/02/2014 3:46 AM BIODIESEL PROCESS CONTROL TECHNICIAN Interpretive Data If confirmation is required, call Laboratory Customer Service to request sample to be sent to [facility] for Hepatitis C Virus (HCV) RNA Detection and Quantitation by Real-Time Reverse Charge Lpn-PCR (RT-PCR). Current interpretive data was last revised on 2011 us Fariha Whitley MD LAB BLOOD ORDERABLES Final R esult HISTORICAL RESULTS * DIGITAL MAMMOGRAPHY (12/11/2013 11:01 AM CDT) Anatomical Region Laterality Modality Breast Mammography 12/11/2013 11:0 1 AM CDT Narrative 12/12/2013 12:15 AM CDT Vm Mammogram Performed by: LT Screening Mamm Bi Acc#: [id number] DATE OF EXAM: Dec 11 2013 CLINICAL [...] Performed by: LT Screening Mamm Bi Acc#: [id number] DATE OF EXAM: Dec 11 2013 CLINICAL [...] Advance Directives For more information, please contact: [phone] * Full Code (Latest Code Status on File) Date Activated Date Inactivated Comments 11/22/2023 6:25 PM 11/25/2023 11:09 PM * Full Code Date Activated Date Inactivated Comments 12/21/2022 5:34 PM 12/24/2022 8:16 PM * Full Code Date Activated Date Inactivated Comments 11/10/2022 4:25 PM 11/11/2022 3:51 PM * Full Code Date Activated Date Inactivated Comments 05/04/2022 1:38 PM 05/05/2022 6:47 PM Care Teams Preconstruction Manager Relationship Specialty Start Date End Date Mariah Adams MD PCP - General Internal Medicine 08/19/20 Mitchell Zamarripa MD Referring Physician Rheumatology 03/11/22 Brit More NP Nurse Practitioner Cardiovascular Disease 03/11/22 Cliff Ronquillo NP [address] [place] [address] [address] [place] [address] Nurse Practitioner Nurse Practitioner 05/05/22 Dick Aguilar PA [address] [place] [address] [address] [place] [address] Physician Kidney Trimmer Orthopedic Surgery 11/11/22 Gavin Sewell MD [address] [place] [address] [address] [place] [address] Surgeon Orthopedic Surgery 12/24/22
--- NOTE | 2024-11-23 09:26 | WPDHPUPDATE1 ---
History and Physical Update Update Date/Time: 11/23/24 09:26 History and Physical has been reviewed, including an updated exam of the patient. There are NO changes in the patient's condition. Risks, benefits, and alternatives have been discussed and questions answered. Patient agrees to proceed with procedure.
[2024-11-23] MEDS: LACTATED RINGERS 1,000 ML 30 ML IV CONT ×2 (10:50→14:09)
[2024-11-23] MEDS: KETOROLAC 15 MG/ML VIAL (*BKC) IV PUSH (10:50)
[2024-11-23] MEDS: ACETAMINOPHEN 500 MG TABLET 1000 MG PO (10:50)
--- NOTE | 2024-11-23 12:05 | WPDANESEPPF ---
Anes - Initial Pre Proc Eval Procedure: Operation Date: 11/23/24 12:00 Proposed Procedures p Right Wrist External Fixation - Efren Rendon MD s Removal Hardware Right Wrist - Efren Rendon MD Date/Time: 11/23/24 12:05 Surgeon: Efren Rendon MD Pre Op Diagnosis: Rt Wrist Fx, Broken Hardware Patient Data Age: 64 Gender: F Height: 1.52 m Weight: 65.5 kg Last Vital Signs Temp 97.8 F 11/23/24 10:50 Pulse 71 11/23/24 10:50 Resp 14 11/23/24 10:50 BP 142/81 H 11/23/24 10:50 Pulse Ox 97 11/23/24 10:50 O2 Del Method Room Air 11/23/24 10:50 Allergies Allergy/AdvReac Type Severity Reaction Status Date / Time Sulfa (Sulfonamide Allergy Severe Hives Verified 11/23/24 11:11 Antibiotics) ciprofloxacin (From Cipro) Allergy Intermediate Other Verified 11/23/24 11:11 Home Medications ?Medication ?Instructions ?Recorded ?Confirmed ?Type alprazolam 0.25 mg tablet 0.25 mg PO QID PRN anxiety 10/04/24 11/21/24 History apixaban 5 mg tablet (Eliquis) 5 mg PO DAILY 10/04/24 11/23/24 History carvedilol 25 mg tablet 25 mg PO Q12H 10/04/24 11/23/24 History celecoxib 200 mg capsule 200 mg PO BID 10/04/24 11/21/24 History digoxin 125 mcg (0.125 mg) tablet 0.125 mg PO DAILY 10/04/24 11/23/24 History diltiazem HCl 240 mg 240 mg PO DAILY 10/04/24 11/23/24 History capsule,extended release 24 hr, controlled (DILT-XR) duloxetine 60 mg capsule,delayed 60 mg PO DAILY 10/04/24 11/23/24 History release ezetimibe 10 mg tablet 10 mg PO DAILY 10/04/24 11/21/24 History isosorbide mononitrate 60 mg 60 mg PO DAILY 10/04/24 11/23/24 History tablet,extended release 24 hr levothyroxine 100 mcg tablet 100 mcg PO DAILY 10/04/24 11/23/24 History losartan 100 1 tablet PO DAILY 10/04/24 11/23/24 History mg-hydrochlorothiazide 25 mg tablet metoclopramide HCl 10 mg tablet 10 mg PO BID PRN nausea and 10/04/24 11/21/24 History vomiting omeprazole 40 mg capsule,delayed 40 mg PO DAILY 10/04/24 11/23/24 History release rosuvastatin 5 mg tablet 5 mg PO DAILY 10/04/24 11/23/24 History sennosides 8.6 mg-docusate sodium 1 tab-cap PO BID PRN constipation 10/11/24 11/23/24 Rx 50 mg tablet (Senna with Docusate #20 tabs Sodium) ibuprofen 600 mg tablet 600 mg PO TID PRN fever or pain 11/05/24 11/21/24 Rx #30 tabs oxycodone-acetaminophen 7.5 mg-325 1 tablet PO .q6 h PRN pain #30 tabs 11/05/24 11/23/24 Rx mg tablet albuterol sulfate 90 mcg/actuation 2 puff inhalation QID PRN 11/08/24 11/21/24 Rx aerosol inhaler shortness of breath or wheezing #6.7 grams furosemide 20 mg tablet 20 mg PO DAILY 11/08/24 11/21/24 History inhalational spacing device #1 ea 11/08/24 11/21/24 Rx (Aerochamber MV spacer) Patient hx anesthesia problems: post op nausea/vomiting Family hx anesthesia problems: none Results Review: All pre-operative results and documents have been reviewed as part of the pre-operative evaluation. 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 SHIRA (obstructive sleep apnea) Rheumatoid arthritis HTN (hypertension) Surgical History Surgical History History of bladder surgery H/O: hysterectomy Social History Social History Smoking packs per day: 0.5 Smoking cigarettes per day: 10.0 Years smoked: 15 Smoking pack-years: 7.50 Smoking status: Former smoker Tobacco type: cigarettes Smoking end date: 11/21/14 Alcohol intake: current Living arrangements: alone Spiritual care concerns: No Anes - Eval Final PreProcedure Day of Procedure 11/23/24 12:05 Patient weight: overweight Lungs: normal air movement Airway: Mallampati scale and special considerations (Upper tooth is removable. ) Neurological: alert and oriented Last oral intake: >/= 8 hours ASA classification: III Emergent: no Anesthetic plan: proceed Anesthesia type and monitoring: general LMA and standard monitoring Results Review: All pre-operative results and documents have been reviewed as part of the pre-operative evaluation. HTN, hyperlipidemia, hx of afib, SHIRA but not on CPAP. Pt smokes 1/2 ppd, reports no smoking this am. Pt has been off her eliquis due to cost issues for approx 1 month. Informed Consent: The patient's anesthetic plan and its attendant risks and benefits were discussed with the patient/family/POA. Questions were solicited and answers provided to the satisfaction of the patient/family/POA.
[2024-11-23] MEDS: ceFAZolin 2 GM/D5W 50 ML 2 GM/50 ML BAG IVPB (12:13)
[2024-11-23] MEDS: BUPivacaine HCL 0.5% 10 ML AMP INFILTRATE (13:13)
--- NOTE | 2024-11-23 14:22 | W.PM.PROC2 ---
Procedure Note - Detailed Date of Procedure 11/23/24 Pre-op Diagnosis Rt Wrist Fx (radius and ulna), Broken Hardware Post-op Diagnosis Same Procedure Performed open reduction internal fixation distal radius and ulna fracture, removal of hardware from the right wrist, external fixator application right wrist Surgeon Efren Rendon MD Footwear Stitcher 1St licensed occupational therapy assistant Anesthesia General Indications 64-year-old woman who sustained distal radius fracture and ulnar fracture with displacement. Underwent reduction with internal fixation 6 weeks ago. She has developed loss of correction read displacement of the fracture as well as hardware failure. Presents for operative treatment. Findings comminution of the distal radius fracture, no healing of the ulna Description of Procedure After informed consent the operative extremity was marked in the preoperative holding area. Patient received intravenous antibiotics. Patient taken to the operating room where they underwent general anesthesia. Positioned supine on operating table. Time-out performed confirming the patient, patient's site of surgery and the plan. Right upper extremity prepped and draped in the usual sterile surgical fashion using a ChloraPrep skin solution. Hand and wrist exsanguinated and arm tourniquet inflated to 225 mmHg. Standard volar flexor carpi radialis incision utilized previously was once again made. Fifteen blade knife used to make longitudinal incision. Flexor carpi radialis tendon identified tendon sheath incised in line with skin incision. Tendon retracted to protect the neurovascular elements. Floor of the tendon sheath incised with a 15 blade knife. Flexor pollicis retracted medial. pronator quadratus then divided off the watershed line and reflected ulnarward to expose the distal radius and the fracture. The plate had completely come off of the radius with 3.5 mm proximal screws. The screws were removed. The distal screws were removed with a screwdriver and the plate was removed. There is noted to be healing of the distal radius portion of the fracture but the new fracture of the radial metaphyseal portion was noted to be displaced. The wound was irrigated with saline. Skin closed with interrupted subcutaneous 000 Monocryl interrupted suture and running 000 Monocryl subcuticular stitch. We then addressed the ulna fracture. Longitudinal incision made with a 15 blade knife over the ulnar border of the ulna centered on the fracture from the previous incision which was in place. Hemostasis controlled with electrocautery. Fascia incised in line with skin incision. Musculature then elevated volarly off of the ulna to expose the ulna fracture and the ulnar diaphysis and the previous hardware. The 2 proximal screws had completely come out of the ulna and these were removed. The 2 distal screws were removed and the plate was removed. The ulna was then reduced. Fixation achieved with a 2.0 mm K-wire placed intramedullary. Image intensification confirmed reduction and placement of the hardware. Wound was then irrigated and fascia closed with 3 Monocryl interrupted suture. Subcutaneous tissue and skin closed with 3 Monocryl interrupted suture and running suture. External fixator then applied. Stab incision made with 15 blade knife over the 2nd metacarpal. 2.5 mm partially threaded pins placed in the metacarpal shaft and confirmed with fluoroscopy. 4.0 mm partially threaded pins placed in proximal radius with stab incision of the skin and blunt dissection down to the bone. Soft tissue protectors utilized. Image intensification confirmed placement. The radial pins and the metacarpal pins were then connected 6 mm bars. Image intensification confirmed placement of the pins and the reduction of the radial fracture. Local anesthetic with 0.5% Marcaine. Sterile dressing applied. Padded dressing then applied. Tourniquet released and good capillary refill noted in the fingers and thumb. Patient awoke from anesthesia, extubated and taken to the recovery room in stable condition. All sponge and instrument counts correct at the end of case. Implants Implants removed: Biomet distal radius volar plate and 1/3 tubular plate for the ulna. New implants: 2.0 mm K-wire, Marcus external fixator with 4 half pins and 2 carbon 6 mm bars. Estimated Blood Loss 10 Tourniquet Time Total Tourniquet Time: 84 Drains No Packing No Pathology None sent Complications None Condition Stable Disposition PACU [facility] Billing Surgery - Charge Forward: Surgery Billing ([id number], [id number], [id number])
[2024-11-23] MEDS: fentaNYL CITRATE INJ (*CRX) 100 MCG/2 ML VIAL 25 MCG IV PUSH ×2 (14:46→14:50)
[2024-11-23] MEDS: oxyCODONE HCL (*CRX) 5 MG TAB IR PO (15:50)
== END 2024-11-23 16:34 | disposition home or self-care (01) ==
PROVIDERS: PCP Internal Medicine; Visit Provider Orthopaedic Surgery
PROC: (CPT 25575; principal; 2024-11-23 12:00)
PROC: (CPT 20694; 2024-11-23 12:00)
DX: T84.122A Displacement of internal fixation device of bone of right forearm, initial encounter (principal); T84.84XA Pain due to internal orthopedic prosthetic devices, implants and grafts, initial encounter; S52.601K Unspecified fracture of lower end of right ulna, subsequent encounter for closed fracture with nonunion; S52.571K Other intraarticular fracture of lower end of right radius, subsequent encounter for closed fracture with nonunion; I10 Essential (primary) hypertension; G47.33 Obstructive sleep apnea (adult) (pediatric); M06.9 Rheumatoid arthritis, unspecified; Y83.8 Other surgical procedures as the cause of abnormal reaction of the patient, or of later complication, without mention of misadventure at the time of the procedure; Z79.01 Long term (current) use of anticoagulants; Z79.1 Long term (current) use of non-steroidal anti-inflammatories (NSAID); Z79.891 Long term (current) use of opiate analgesic; Z79.51 Long term (current) use of inhaled steroids; Z98.890 Other specified postprocedural states; Z87.891 Personal history of nicotine dependence
CPT/HCPCS: 25574; 20680; 20690; 99199; A9270; J0690; J1100; J1885; J2003; J2250; J2405; J2704; J3010; J7120

== ENCOUNTER 2024-12-03 13:01 | Outpatient (CLI) | payer OTHER, SELFPAY ==
--- NOTE | ~2024-12-03 | XR_ITS ---
EXAMINATION: XR wrist RT min 3V DATE: 12/03/2024 13:18 INDICATION: Right wrist fracture follow-up TECHNIQUE: Posteroanterior, oblique and lateral views of the right wrist were obtained. COMPARISON: 11/19/2024 and 11/23/2024 FINDINGS: Again seen is retrograde intramedullary ramona fixation of a distal diaphyseal fracture which appears to remain ununited. There is <1 cortical width displacement and 15 degrees ulnar angulation. There are some residual screw tracks in the ulnar diaphysis from the prior plate-screw fixation. Screws for ext ernal fixation extend into the second metacarpal and mid radial diaphysis. There is one half shaft wi dths palmar/radial displacement and 5 degrees ulnar/dorsal angulation of the distal metadiaphyseal po rtion of the comminuted fracture of the right radius. There is mild impaction without significant dis placement or angulation of a metaphyseal portion of the fracture. There is some nonbridging callus fo rmation about the margins of the radial fracture. Polyarticular osteoarthritis, moderate severity at the triscaphe, first carpometacarpal, first first metacarpophalangeal and a few of the interphalangea l joints. IMPRESSION: 1. Again seen is revision of a combination of internal and external fixation of right ulnar and commi nuted right radial fractures with residual displacement and angulation as detailed above. Reviewed, dictated and finalized at location A. IMPRESSION: 1. Again seen is revision of a combination of internal and external fixation of right ulnar and comminuted right radial fractures with residual displacement a nd angulation as detailed above.
--- OUTSIDE RECORDS SUMMARY | 2024-12-03 14:50 | XMS_ITS | Encounter Summary ---
Author Organization [facility] Healthcare Address [address] [place] [address] Care Team Providers Care Account Service Associate Name Role Phone Yg Lee MD Primary Care Provider + Mitchell Zamarripa MD Unavailable [phone] Birt More NP Unavailable [phone] Cliff Ronquillo NP Unavailable [phone] Dick Aguilar Unavailable [phone] Gavin Sewell MD Unavailable [phone] Encounter Details Date Type Department Care Team (Late st Contact Info) Description 12/14/2021 Telephone [facility] [address] [place] [id number] Fariha Hampton, RT Social History Tobacco Use Types Packs/Day Years Used Date Smoking Tobacco: Former Smokeless Tobacco: Never Alcohol Use Standard Drinks/Week Comments Yes 0 (1 standard drink = 0.6 oz pur e alcohol) occasional Comments No Sex and Gender Information Value Date Recorded Sex Assigned at Not on file 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 Gender Identity Not on file Sexual Orientation [...] COVID: Suspected 07/22/2024 07/22/2024 07/22/2024 9:25 AM CADMIUM PLATER documented as of this encounter Care Teams Account Service Associate Relationship Specialty Start Date End Date Yg Lee MD PCP - General Internal Medicine 08/19/20 Mitchell Zamarripa MD Referring Physician Rheumatology 03/11/22 Brit More NP Nurse Practitioner Cardiovascular Disease 03/11/22 Cliff Ronquillo NP [address] [place] [address] DR [facility] [place] [address] Nurse Practitioner Nurse Practitioner 05/05/22 Dick Aguilar PA [address] [place] [address] DR [facility] [place] [address] Physician Transportation Engineer Orthopedic Surgery 11/11/22 Gavin Sewell MD [address] [place] [address] DR CARLOS QUINTERO [address] [place] [id number] Surgeon Orthopedic Surgery 12/24/22 documented as of this encounter
--- OUTSIDE RECORDS SUMMARY | 2024-12-03 14:50 | XMS_ITS | Clinical Summary ---
Author Organization [facility] Address [address] [place] [address] Care Team Providers Care Transformation Coach Name Role Phone Yg Lee MD Primary Care Provider [phone] Allergies Active Allergy Reactions Criticality Noted Date [...] (Dexilant) 60 mg Delayed Release capsule Lot: [id number] Ex: 10/21 Qty: 8 5 Capsule 10/20/19 [...] HOURS NEEDED FOR NAUSEA 45 Tablet 05/19/20 21 Active Additional Information Patient not taking.Reported on 04/05/2024 fluticasone propionate (FLONASE) 50 mcg/spray [place], Suspension nasal inhaler USE 1 OR 2 [...] Active naloxone 4 mg/actuation nasal spray 11/12/19 23 Active ascorbic acid (vitamin C) 500 mg chewable tablet Take 500 mg by mouth 2 times daily. 12/25/19 23 Active isosorbide mononitrate (IMDUR) 30 mg Extended Release 24 hour tablet Take 1 Tablet by mouth daily. 07/26/20 23 Active icosapent ethyL (VASCEPA) 1 gram Capsule Take 2 Capsules (2 Grams) by mouth 2 times daily with meals. 360 Capsule 3 08/26/20 23 Active Additional Information Patient [...] Active apixaban (ELIQUIS) 5 mg tablet Lot: [id number] ex: 05/2025 qty: 8 14 Tablet 04/12/20 [...] t be different from the original. [facility] [id number] 09/01/22 Problem Noted Date Diagnosed Date Pulmonary [...] Encounters Date Type Department Care Team Description 11/27/2024 External Device Data [facility] ABSTRACTION Provider, Abstract 11/19/[address] [place] [phone] Yg Lee MD 11/13/[address] [place] [phone] Yg Lee MD Needs Orders Written 11/05/2024 External Device Data [facility]STRACTION Provider, Abstract 10/17/2024 External Device Data [facility]CTION Provider, Abstract 10/15/[address] [place] [phone] Yg Lee MD Gastroesophageal reflux disease without esophagitis 10/12/[address] [place] [address] Provider, Abstract 10/05/[address] [place] [phone] Yg Lee MD Needs Appointment 09/20/2024 External Device Data [facility]STRACTION Provider, Abstract 09/19/[address] [place] [phone] Yg Lee MD Essential hypertension, benign 09/11/2024 External Device Data [facility]STRACTION Provider, Abstract from Last 3 Months Immunizations Immunization Administration Dates Next Due (ADACEL/BOOSTRIX)(10 YR UP) TDAP VACCINE, 0.5ML, IM 06/15/2011 (PFIZER)(12 YR UP) COVID-19 VACCINE - EMERGENCY USE AUTHORIZATION, MRNA, [id number](PF) 30 MCG/0.3 ML IM SUSP 04/22/2021,04/01/2021 (PNEUMOVAX 23)(50 YRS UP) PN EUMOCOCCAL POLYSACCHARIDE (PPV23) 0.5 ML, IM 07/18/2017,06/15/2011 (PREVNAR 13)(6 WKS UP) PNEUM OCOCCAL CONJUGATE (PCV13) 0.5 ML, IM 10/20/2020 (PREVNAR 20)(6 WKS UP) PNEUM OCOCCAL CONJUGATE VACCINE 20-VALENT (PCV20), POLYSACCHARIDE [id number] CONJUGATE, ADJUVANT 0.5 ML (PF) IM 02/23/2023 [...] on file 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 Gender Identity Not on file Sexual [...] Description 12/04/2024 3:00 PM CDT Office Visit [facility] [address] [place] [address] Yg Lee MD [address] [place] [address] [address] [place] [address] Health Maintenance Due Date Last [...] history exists Medical Devices Implanted Type Area Infection Prevention Coordinator Device Identifier Shelf Expiration Date Model / Serial / Lot Stent Pncrtc Frmn Flx 5fr 5cm 6552 - [id number] Implanted:Qty: 1 on 02/24/2018 by John White MD at [facility] Stent N/A: Pancreas [facility] [id number] 09/29/2022 6552 / / [id number] Procedures Procedure Name Priority Date/Time Associated Diagnosis Comments HEMOGLOBIN A1C Routine 06/15/2024 9:16 AM CDT Abnormal glucose MAMMO 3D KIRILL SCREEN BILAT W OR WO CAD Routine 05/16/2024 1:15 PM CDT Screening mammogram, encounter for from Last 3 Months or Most Recently Relevant to Health Maintenance Results * HEMOGLOBIN A1C (06/15/2024 9:16 AM CDT) HEMOGLOBIN A1C 5.2 <5.7 % of total Hgb [facility] Comment: For the purpose of screening for the presence of diabetes: <5.7% Consistent with the absence of diabetes 5.7-6.4% Consistent with increased risk for diabetes (prediabetes) > or =6.5% Consistent with diabetes This assay result is consistent with a decreased risk of diabetes. Currently, no consensus exists regarding use of hemoglobin A1c for diagnosis of diabetes in children. According to [place] Diabetes Association (ADA) guidelines, hemoglobin A1c <7.0% represents optimal control in non- diabetic patients. Different metrics may apply to specific patient populations. Standards of Medical Care in Diabetes(ADA). ESTIMATED AVERAGE GLUCOSE (MG/DL) 103 mg/dL [facility] ESTIMATED AVERAGE GLUCOSE (MMOL/L) 5.7 mmol/L [facility] Comment: FASTING:YES FASTING: YES Test Performed at: [place] [address] [place] [address] ChikisAileen Dasilva Blood 06/15/2024 9:16 AM CDT 06/15/2024 9:17 AM CDT us Yg Lee MD CHEMISTRY ORDERABLES Final Re sult [facility] [phone] [place] [address] [place] [address] * MAMMO 3D KIRILL SCREEN BILAT W [...] BI-RADS CATEGORY 1 - Negative. DICTATION LOCATION: [facility] Yg Lee MD MAMMO ORDERABLES Final Result from Last 3 Months or Most Recently Relevant to Health Maintenance Insurance RX [employer] RX Member Subscriber Plan / Payer (Ef fective 2020-Present) Name:Antoinette Da Silva Relation to Subscriber:Self Name:Antoinette Da Silva Payer ID:Not on file Type:RX Commercial Address: [address] MEDICARE Advance Directives For more information, please contact: [phone] Documents on File Type Date Recorded Patient Mold Worker Expl anation Advance Directive Living Will 10/20/2020 [...] 12:41 PM 10/31/2015 7:49 PM Care Teams Transformation Coach Relationship Specialty Start Date End Date Yg Lee MD PCP - General Internal Medicine 12/20/18
--- OUTSIDE RECORDS SUMMARY | 2024-12-03 14:50 | XMS_ITS | Clinical Summary ---
Author Organization [facility] Address [address] [place] [address] Care Team Providers Care Hogshead Builder Name Role Phone Shandra Ruffin Malcolm WISDOM-TIME MOTION ANALYST Primary Care Provider Source Comments [facility],non-owned Affiliates and Associated Physician Practices is amultiple site organization consisting of ambulatory clinics and hospital sitesin [place], [place], [place] and [place]. This disclosure is being madepursuant to the Care Everywhere program and may not contain all information available regarding this patient. Last updated 18.[facility] Allergies Active Allergy Reactions Criticality Noted Date [...] LURIA, FLUZONE TRIVALENT; 6MO+) (IIV3) 06/16/2016,06/11/2015,06/01/2014,2012,06/14/2012,06/01/2011 Covid MemberPlanet primary monoval ent 12+ yr 0.3mL Purple [...] VACCINE (3 - season) 2024 04/22/2021, 04/01/2021 DEPRESSION SCREENING 08/29/2024 MEDICARE AWV CALENDAR YEAR 2024 INFLUENZA VACCINE (Season Ended) 2025 09/01/2022, 05/29/2022, 08/14/2021, Additional history exists SCREENING FOR DIABETES 08/31/2025 , 08/11/2021, 03/31/2021, [...] Comments COMPREHENSIVE METABOLIC PANEL 08/31/2022 9:26 AM XRAY TECH from Last 3 Months or Most Recently Relevant to Health Maintenance Results * (ABNORMAL) COMPREHENSIVE METABOLIC PANEL (08/31/2022 9:26 AM XRAY TECH) Glucose 105(H) 65 - 99 mg/dL [facility] [...] 29 U/L [facility] Comment: Test Performed at: [facility] [address] [place] [address] LUISA [place] DO,MPH 08/31/2022 9:26 AM XRAY TECH 08/31/2022 9:27 AM XRAY TECH Mitchell Zamarripa MD LAB - CHEMISTRY INGRID DE GUZMAN [facility] Organization Address City/State/ZIP Co de Phone Number [facility] [address] [place] [address] from Last 3 Months or Most Recently Relevant to Health Maintenance Advance Directives * FULL RESUSCITATION (Latest Code Status on File) Date Activated Date Inactivated Comments 11/08/2011 12:50 PM 11/10/2011 12:21 AM Care Teams Hogshead Builder Relationship Specialty Start Date End Date Shandra Ruffin, WILDLAND FIRE OPERATIONS SPECIALIST-TIME MOTION ANALYST [address] [place] [phone] PCP - General 04/02/22
--- OUTSIDE RECORDS SUMMARY | 2024-12-03 14:50 | XMS_ITS | Data Portability ---
Author Organization [facility] Address [address] [place] [address] Care Team Providers Care District Supervisor Name Role Phone JAM LEDEZMA Primary Care Provider [phone] Assessment No assessment recorded. Plan of Treatment Reminders Order Date Submit Date Provider Last Modified By Organization Details Last Modified Time Details Appointments None recorde d. Lab PTH (parath yroid hormone ), intact + calcium , serum or plasma 2019 020 bbertoglioma [facility], [address] [place] [address], [address], [place], [address], 0 18:10:55 unliste d lab - complia nce drug analysi s, ur 2019 020 REUBEN [facility], [address] [place] [address], [address], [place], [address], 0 15:09:11 PTH (parath yroid hormone ), intact + calcium , serum or plasma 2019 020 hspraggs [facility], [address] [facility], [address], [place], [address], 0 15:26:23 Referral orthope dic referra l 2019 020 [facility], [address] [facility], [place], [address], 0 14:14:57 oncolog ist referra l - ANABEL 2019 020 ssaterri Rivero MD, [address] [facility] , [address], [place], [address], 0 11:06:22 dermato logist referra l 2019 [email or web address] Not available 0 14:26:11 Procedures None recorde d. Surgeries None recorde d. Imaging NM, bone scan 2019 020 bbertoglioma [facility] (Radiology), [address] [facility] , [place], [address], 0 15:52:19 CT, lower leg, w/ contras t 2019 020 [facility] (Scheduling), [address] [facility], [place], [address], 0 15:02:33 XR, lumbar spine 2019 020 REUBEN [facility], [address] [facility], [place], [address], 0 14:17:01 Medication Orders calcito marlo (salmon ) 200 unit/ac tuation nasal spray 2019 020 [id number], [address], [place], [place], [id number], 0 15:02:19 acetami nophen 300 mg-code ine 30 mg tablet 2019 020 dturnerma [facility][id number], [address], [place], [place], [id number], 1 17:09:49 gabapen tin 100 mg capsule 2019 020 [facility][id number], [address], [place], [place], [id number], 0 12:02:47 Patient TargetsNo targets recorded. 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 Referral for C omplaining of a rash Referring Physician: Jam eLdezma [facility], Encounter Date: 02/20/2020 ANABEL Referring Physician: Jam Ledezma [facility], Encounter Date: 02/20/2020 Orthopedic Referral for Path ological fracture of right tibia Referring Physician: Jam Ledezma [facility], Encounter Date: 04/22/2020 Results Created Date Observation Date Name Description Value Unit Range Abnormal Flag Note LastModifiedBy Organization Detail LastModifiedTime 12/27/19 20 12/28/2019 CMP, serum or plasm a glucose 91 mg/dL 65-99 Not Available [facility] ([facility]) [address] [place], [address], 12/28/2019 07:08:47 12/27/1912/28/2019 CMP, serum or plasm a BUN 15 mg/dL 6-24 Not Available [facility] ([facility]) [address] [place], [address], 12/28/2019 07:08:47 12/27/1912/28/2019 CMP, serum or plasm a creatinine 0.80 mg/dL 0.57-1 .00 Not Available [facility] ([facility]) [address] [place], [address], 12/28/2019 07:08:47 12/27/1912/28/2019 CMP, serum or plasm a eGFR if nonafricn AM 82 mL/mi n/1.7 3 >59 Not Available [facility] ([facility]) [address] [place], [address], 12/28/2019 07:08:47 12/27/1912/2712/28/2019 CMP, serum or plasm a eGFR if africn AM 95 mL/mi n/1.7 3 >59 Not Available [facility] ([facility]) [address] [facility], [address], 12/28/2019 07:08:47 12/27/19 20 12/28/2019 CMP, serum or plasm a BUN/creatini ne ratio 19 9-23 Not Available [facility] ([facility]) [address] [facility] [place], [address], 12/28/2019 07:08:47 12/27/1912/28/2019 CMP, serum or plasm a sodium 138 mmol/ L 134-14 4 Not Available [facility] ([facility]) [address] [place], [address], 12/28/2019 07:08:47 12/27/19 20 12/28/2019 CMP, serum or plasm a potassium 4.2 mmol/ L 3.5-5. 2 Not Available [facility] ([facility]) [address] [place], [address], 12/28/2019 07:08:47 12/27/19 20 12/28/2019 CMP, serum or plasm a chloride 98 mmol/ L 96-106 Not Available [facility] ([facility]) [address] [place], [address], 12/28/2019 07:08:47 12/27/1912/28/2019 CMP, serum or plasm a carbon dioxide, total 23 mmol/ L 20-29 Not Available [facility] ([facility]) [address] [place], [address], 12/28/2019 07:08:47 12/27/1912/28/2019 CMP, serum or plasm a calcium 10.1 mg/dL 8.7-10 .2 Not Available [facility] ([facility]) [address] [place], [address], 12/28/2019 07:08:47 12/27/19 20 12/28/2019 CMP, serum or plasm a protein, total 7.3 g/dL 6.0-8. 5 Not Available [facility] ([facility]) [address] [place], [address], 12/28/2019 07:08:47 12/27/1912/28/2019 CMP, serum or plasm a albumin 4.8 g/dL 3.8-4. 9 Not Available [facility] ([facility]) [address] [place], [address], 12/28/2019 07:08:47 12/27/1912/28/2019 CMP, serum or plasm a globulin, total 2.5 g/dL 1.5-4. 5 Not Available [facility] ([facility]) [address] [place], [address], 12/28/2019 07:08:47 12/27/1912/28/2019 CMP, serum or plasm a A/G ratio 1.9 1.2-2. 2 Not Available [facility] ([facility]) [address] [place], [address], 12/28/2019 07:08:47 12/27/1912/28/2019 CMP, serum or plasm a bilirubin, total 0.4 mg/dL 0.0-1. 2 Not Available [facility] ([facility]) [address] [place], [address], 12/28/2019 07:08:47 12/27/1912/28/2019 CMP, serum or plasm a alkaline phosphatase 114 IU/L 39-117 Not Available [facility] ([facility]) [address] [place], [address], 12/28/2019 07:08:47 12/27/1912/28/2019 CMP, serum or plasm a AST (SGOT) 40 IU/L 0-40 Not Available [facility] ([facility]) [address], [place], [address], 12/28/2019 07:08:47 12/27/1912/28/2019 CMP, serum or plasm a ALT (SGPT) 29 IU/L 0-32 Not Available [facility] ([facility]) [address] [facility], [place], [address], 12/28/2019 07:08:47 12/27/19 20 12/28/2019 vitam in D, 25-hy droxy , total , serum vitamin D, 25-hydroxy 34.2 NG/mL 30.0-1 00.0 Vitam in D defic iency has been defin ed by the [facility]i [facility] in[facility] and an Endoc rine Socie ty pract ice guide line as a level of serum 25-OH vitam in D less than 20 ng/mL (1,2) . The Endoc rine Socie ty went on to furth er defin e vitam in D insuf ficie ncy as a level betwe en 21 and 29 ng/mL (2). 1. IOM ([facility] ine). 2010. Melany ry refer ence kristina es for calci um and D. Zackary baum [place]: [facility] . 2. Patricia valdez MF, Jluis albert [place], [place] off-F errar i GARCIA, et al. Evalu ation , treat ment, and preve ntion of vitam in D defic iency : an Endoc rine Socie ty clini tessie pract ice guide line. JCEM. 2010; 96(7) :1911 -30. Not Available [facility] ([facility]) [address] [facility], [place], [address], 12/28/2019 07:08:48 02/11/2002/19/2020 drug scree n, urine [...] [place] [address] EXPEC JALYN ng/mg creat Morph ine 1924 EXPEC JALYN ng/mg creat Normo rphin e 572 EXPEC JALYN ng/mg creat Normanna deine 1659 EXPEC JALYN ng/mg creat Sourc [...] expec jalyn metab olite of morph ine. Normanna deine is an expec jalyn metab olite [...] benza richard Dulox etine Escit alopr am ([place] pro) Gabap entin Metop rolol Oxyco done [...] Clobe tasol Ezeti mibe Fluti kelsie e [place] chlor othia zide (Samantha nopri l-HCT Z) [place] xychl oroqu ine Levot hyrox ine Lisin [...] ===== ===== ===== ===== === Not Available [facility] [address] [facility], [place], [address], 02/19/2020 15:09:11 02/11/20 20 02/19/2020 drug scree n, urine pdf . Not Available [employer] [address] [facility] [address], [place], [address], 02/19/2020 15:09:11 04/28/20 20 04/28/2020 PTH (para [...] - 65 < 8.6 Not Available [facility] ([facility]) [address] [place], [address], 04/29/2020 17:08:21 04/28/20 20 04/29/2020 PTH (para thyro id hormo ne), intac t + calci um, serum or plasm a calcium TNP mg/dL No serum gel recei dillon. Not Available [facility] ([facility]) [address] [place], [address], 04/29/2020 17:08:21 04/28/20 20 04/29/2020 PTH (para thyro id hormo ne), intac t + calci um, serum or plasm a PTH, intact 63 pg/mL 15-65 Not Available [facility] ([facility]) [address] [place], [address], 04/29/2020 17:08:21 04/28/20 20 04/29/2020 speci men statu s repor t specimen status report TNP No serum gel recei dillon. TEST: 54661 6 Calci um Panel : 53006 1 Not Available [facility] ([facility]) [address] [place], [address], 04/29/2020 17:08:22 04/30/2005/01/2020 TSH + free T4, serum TSH 4.230 uIU/m L 0.450- 4.500 Not Available [facility] ([facility]) [address] [place], [address], 05/01/2020 08:17:01 04/30/2005/01/2020 TSH + free T4, serum T4,free(dire ct) 1.18 NG/dL 0.82-1 .77 Not Available [facility] ([facility]) [address] [place], [address], 05/01/2020 08:17:01 04/30/2005/01/2020 CBC w/ auto diff WBC 5.2 x10e3 /uL 3.4-10 .8 Not Available [facility] ([facility]) [address] [facility], [place], [address], 05/01/2020 08:17:02 04/30/2005/01/2020 CBC w/ auto diff RBC 4.16 x10e6 /uL 3.77-5 .28 Not Available [facility] ([facility]) [address] [facility], [place], [address], 05/01/2020 08:17:02 04/30/2005/01/2020 CBC w/ auto diff hemoglobin 13.9 g/dL 11.1-1 5.9 Not Available [facility] ([facility]) [address] [facility], [place], [address], 05/01/2020 08:17:02 04/30/2005/01/2020 CBC w/ auto diff hematocrit 39.7 % 34.0-4 6.6 Not Available [facility] ([facility]) [address] [facility], [place], [address], 05/01/2020 08:17:02 04/30/2005/01/2020 CBC w/ auto diff MCV 95 fL 79-97 Not Available [facility] ([facility]) [address] [place], [address], 05/01/2020 08:17:02 04/30/2005/01/2020 CBC w/ auto diff MCH 33.4 pg 26.6-3 3.0 above high normal Not Available [facility] ([facility]) [address] [place], [address], 05/01/2020 08:17:02 04/30/2005/01/2020 CBC w/ auto diff MCHC 35.0 g/dL 31.5-3 5.7 Not Available [facility] ([facility]) [address] [facility], [place], [address], 05/01/2020 08:17:02 04/30/2005/01/2020 CBC w/ auto diff RDW 13.4 % 11.7-1 5.4 Not Available [facility] ([facility]) [address] [facility], [place], [address], 05/01/2020 08:17:02 04/30/2005/01/2020 CBC w/ auto diff platelets 296 x10e3 /uL 150-45 0 Not Available [facility] ([facility]) [address] [facility], [place], [address], 05/01/2020 08:17:02 04/30/2005/01/2020 CBC w/ auto diff neutrophils 72 % not estab. Not Available [facility] ([facility]) [address] [facility], [place], [address], 05/01/2020 08:17:02 04/30/2005/01/2020 CBC w/ auto diff lymphs 14 % not estab. Not Available [facility] ([facility]) [address] [facility], [place], [address], 05/01/2020 08:17:02 04/30/2005/01/2020 CBC w/ auto diff monocytes 7 % not estab. Not Available [facility] ([facility]) [address] [facility], [place], [address], 05/01/2020 08:17:02 04/30/2005/01/2020 CBC w/ auto diff eos 4 % not estab. Not Available [facility] ([facility]) [address] [facility], [place], [address], 05/01/2020 08:17:02 04/30/2005/01/2020 CBC w/ auto diff basos 2 % not estab. Not Available [facility] ([facility]) [address] [facility], [place], [address], 05/01/2020 08:17:02 04/30/2005/01/2020 CBC w/ auto diff immature cells IT APPLICATION ADMINISTRATOR Not Available [facility] ([facility]) [address] [place], [address], 05/01/2020 08:17:02 04/30/2005/01/2020 CBC w/ auto diff neutrophils (absolute) 3.8 x10e3 /uL 1.4-7. 0 Not Available [facility] ([facility]) [address] [place], [address], 05/01/2020 08:17:02 04/30/2005/01/2020 CBC w/ auto diff lymphs (absolute) 0.7 x10e3 /uL 0.7-3. 1 Not Available [facility] ([facility]) [address] [place], [address], 05/01/2020 08:17:02 04/30/2005/01/2020 CBC w/ auto diff monocytes(ab solute) 0.4 x10e3 /uL 0.1-0. 9 Not Available [facility] ([facility]) [address] [place], [address], 05/01/2020 08:17:02 04/30/2005/01/2020 CBC w/ auto diff eos (absolute) 0.2 x10e3 /uL 0.0-0. 4 Not Available [facility] ([facility]) [address] [place], [address], 05/01/2020 08:17:02 04/30/2005/01/2020 CBC w/ auto diff baso (absolute) 0.1 x10e3 /uL 0.0-0. 2 Not Available [facility] ([facility]) [address] [place], [address], 05/01/2020 08:17:02 04/30/2005/01/2020 CBC w/ auto diff immature granulocytes 1 % not estab. Not Available [facility] ([facility]) [address] [facility] [place], [address], 05/01/2020 08:17:02 04/30/2005/01/2020 CBC w/ auto diff immature grans (abs) 0.0 x10e3 /uL 0.0-0. 1 Not Available [facility] ([facility]) [address] [facility], [place], [address], 05/01/2020 08:17:02 04/30/2005/01/2020 CBC w/ auto diff NRBC IT APPLICATION ADMINISTRATOR Not Available [facility] ([facility]) [address] [facility] [place], [address], 05/01/2020 08:17:02 04/30/2005/01/2020 CBC w/ auto diff hematology comments: IT APPLICATION ADMINISTRATOR Not Available [facility] ([facility]) [address] [facility], [place], [address], 05/01/2020 08:17:02 04/30/2005/01/2020 CMP, serum or plasm a glucose 109 mg/dL 65-99 above high normal Not Available [facility] ([facility]) [address] [place], [address], 05/01/2020 08:17:03 04/30/2005/01/2020 CMP, serum or plasm a BUN 12 mg/dL 6-24 Not Available [facility] ([facility]) [address] [place], [address], 05/01/2020 08:17:03 04/30/2005/01/2020 CMP, serum or plasm a creatinine 0.65 mg/dL 0.57-1 .00 Not Available [facility] ([facility]) [address] [place], [address], 05/01/2020 08:17:03 04/30/2005/01/2020 CMP, serum or plasm a eGFR if nonafricn AM 99 mL/mi n/1.7 3 >59 Not Available [facility] ([facility]) [address] [facility] [place], [address], 05/01/2020 08:17:03 04/30/20 20 05/01/2020 CMP, serum or plasm a eGFR if africn AM 114 mL/mi n/1.7 3 >59 Not Available [facility] ([facility]) [address] [facility] [place], [address], 05/01/2020 08:17:03 04/30/20 20 05/01/2020 CMP, serum or plasm a BUN/creatini ne ratio 18 9-23 Not Available [facility] ([facility]) [address] [facility] [place], [address], 05/01/2020 08:17:03 04/30/2005/01/2020 CMP, serum or plasm a sodium 139 mmol/ L 134-14 4 Not Available [facility] ([facility]) [address] [facility] [place], [address], 05/01/2020 08:17:03 04/30/2005/01/2020 CMP, serum or plasm a potassium 4.4 mmol/ L 3.5-5. 2 Not Available [facility] ([facility]) [address] [facility] [place], [address], 05/01/2020 08:17:03 04/30/2005/01/2020 CMP, serum or plasm a chloride 96 mmol/ L 96-106 Not Available [facility] ([facility]) [address] [facility] [place], [address], 05/01/2020 08:17:03 04/30/2005/01/2020 CMP, serum or plasm a carbon dioxide, total 27 mmol/ L 20-29 Not Available [facility] ([facility]) [address] [facility] [place], [address], 05/01/2020 08:17:03 04/30/2005/01/2020 CMP, serum or plasm a calcium 10.0 mg/dL 8.7-10 .2 Not Available [facility] ([facility]) [address] [place], [address], 05/01/2020 08:17:03 04/30/2005/01/2020 CMP, serum or plasm a protein, total 7.0 g/dL 6.0-8. 5 Not Available [facility] ([facility]) [address] [place], [address], 05/01/2020 08:17:03 04/30/2005/01/2020 CMP, serum or plasm a albumin 4.6 g/dL 3.8-4. 9 Not Available [facility] ([facility]) [address] [place], [address], 05/01/2020 08:17:03 04/30/2005/01/2020 CMP, serum or plasm a globulin, total 2.4 g/dL 1.5-4. 5 Not Available [facility] ([facility]) [address] [place], [address], 05/01/2020 08:17:03 04/30/2005/01/2020 CMP, serum or plasm a A/G ratio 1.9 1.2-2. 2 Not Available [facility] ([facility]) [address] [place], [address], 05/01/2020 08:17:03 04/30/2005/01/2020 CMP, serum or plasm a bilirubin, total 0.5 mg/dL 0.0-1. 2 Not Available [facility] ([facility]) [address] [place], [address], 05/01/2020 08:17:03 04/30/2005/01/2020 CMP, serum or plasm a alkaline phosphatase 231 IU/L 39-117 above high normal Not Available [facility] ([facility]) [address] [facility], [place], [address], 05/01/2020 08:17:03 04/30/20 20 05/01/2020 CMP, serum or plasm a AST (SGOT) 83 IU/L 0-40 above high normal Not Available [facility] ([facility]) [address] [facility], [place], [address], 05/01/2020 08:17:03 04/30/20 20 05/01/2020 CMP, serum or plasm a ALT (SGPT) 63 IU/L 0-32 above high normal Not Available [facility] ([facility]) [address] [facility], [place], [address], 05/01/2020 08:17:03 04/30/20 20 04/30/2020 urina lysis , dipst ick Leukocytes Negati ve Not Available In-Office Order Internal Use Only DO Not Attach Compendium DO Not Attach Compendium, Do Not Delete/merge, [id number] 04/30/2020 11:03:06 04/30/2004/30/2020 urina lysis , dipst ick Nitrite negati ve Not Available In-Office Order Internal Use Only DO Not Attach Compendium DO Not Attach Compendium, Do Not Delete/merge, [id number] 04/30/2020 11:03:06 04/30/2004/30/2020 urina lysis , dipst ick Urobilinogen .2 Not Available In-Of fice Order Internal Use Only DO Not Attach Compendium DO Not Attach Compendium, Do Not Delete/merge, [id number] 04/30/2020 11:03:06 04/30/2004/30/2020 urina lysis , dipst ick Protein Negati ve Not Available In-Office Order Internal Use Only DO Not Attach Compendium DO Not Attach Compendium, Do Not Delete/merge, [id number] 04/30/2020 11:03:06 04/30/20 20 04/30/2020 urina lysis , dipst ick pH 6.5 Not Available In-Office Order Internal Use Only DO Not Attach Compendium DO Not Attach Compendium, Do Not Delete/merge, [id number] 04/30/2020 11:03:06 04/30/20 20 04/30/2020 urina lysis , dipst ick Blood Negati ve Not Available In-Office Order Internal Use Only DO Not Attach Compendium DO Not Attach Compendium, Do Not Delete/merge, [id number] 04/30/2020 11:03:06 04/30/20 20 04/30/2020 urina lysis , dipst ick Specific Forrest 1.020 Not Available In-Off ice Order Internal [...] r spine No observ ation record ed. [address], [place], [address], 02/07/2020 17:22:18 02/19/20 20 02/19/2020 NM, bone scan No observ ation record ed. ssander [facility] [address] [facility] [place], [address], 02/19/2020 17:52:46 03/25/20 20 03/25/2020 bone densi ty No observ ation record ed. [facility] [address] [facility] [place], [address], 03/28/2020 12:17:03 09/12/19 21 09/10/2020 cardi ac stres s test No observ ation record ed. [facility] [address], [place], [address], 09/12/2020 16:33:08 12/18/19 21 12/09/2020 pulmo nary funct ion test* No observ ation record ed. [facility] [address], [place], [address], 12/17/2020 15:14:10 01/03/20 21 01/02/2021 US, duple x, renal arter y No observ ation record ed. [facility] [address], [place], [address], 01/02/2021 14:47:22 01/03/20 21 01/02/2021 stres s echoc ardio gram No observ ation record ed. [facility] [address], [place], [address], 01/02/2021 14:47:41 11/28/19 24 11/25/2023 US, echoc ardio gram, trans esoph ageal No observ ation record ed. [facility] [address] [facility] [address], [place], [address], 12/08/2023 11:32:40 01/16/20 24 11/23/2023 CT, angio gram, chest , w/ contr ast No observ ation record ed. mmetias [address] [place], [address], 01/16/2024 15:25:06 Result Notes None recorded. Problems Name Problem SNOMED Code Status Onset Date Resolution Date Notes Provider Name and Address Organization Details Recorded Time Drug therapy finding 679358531 Active 2015 CHIO Niño, [place] - [facility] 0 11:49:27 Enzyme level - finding 240977490 Active 2017 CHIO Niño[place] [facility] 0 11:49:27 Fibromyalgia 292944667 Active 2011 Kallie Sloan [place] null, [place] [facility] 0 11:49:27 Hypertensive disorder 93902856 Active 2012 Kallie S[place], [place] [facility] 0 11:49:27 Osteopenia 674319681 Active 2011 Kallie lSoan [place], [place] [facility] 0 11:49:27 Rheumatoid arthritis 46998167 Active 2017 Kallie Sloan [place] [facility] 0 11:49:27 Problem Notes None recorded. Procedures Surgical History Date Name Laterality Status Provider Name and Address Organization Details Recorded Time hysterectomy completed Anabela Blanc [place] - [facility] 09/06/2019 12:01:29 Imaging Results Imaging Date Name Status LastModified by Organization Details LastModified Time 01/28/2020 XR, lumbar spine completed milly [place] [address] [place], [address], 02/07/2020 17:22:18 02/19/2020 NM[facility] [address] [place], [address], 02/19/2020 17:52:46 03/25/2020 bone density completed [facility] [address] [place], [address], 03/28/2020 12:17:03 09/10/2020 cardiac stress test completed [facility] ([facility]) [address] [facility], [place], [address], 09/12/2020 16:33:08 12/09/2020 pulmonary function test* completed [facility] ([facility]) [address] [facility], [place], [address], 12/17/2020 15:14:10 01/02/2021 US, duplex, renal artery completed [facility] ([facility] [address] [facility], [place], [address], 01/02/2021 14:47:22 01/02/2021 stress echocardiogram completed [facility] ([facility] [address] [facility], [place], [address], 01/02/2021 14:47:41 11/25/2023 US, echocardiogram, transesophageal completed [facility] [facility] [address] [facility] [place], [address], 12/08/2023 11:32:40 11/23/2023 CT, angiogram, chest, w/ contrast completed [facility] [address] [facility] [place], [address], 01/16/2024 15:25:06 Procedure Notes None recorded. Medical Equipment None Reported. Allergies Allergen ID Allergen Name Allergen Category Reaction Reaction Severity Criticality Documentation Date Start Date Code Code System Note Provider Name and Address Organization Details Recorded Time 752185 Substance with sulfonami de structure and antibacte rial mechanism of action (substanc e) medicatio n hives Not available Not available 09/06/2019 26882 8003 SNOMED Not Available Not Available Not Available 645003 Cipro medicatio n Not available Not available Not available 09/06/201982704 3 RxNorm Not Available Not Available Not Available 700053 ciproflox acin medicatio n myalgias (muscle pain) [...] DateTime 01/25/2020 157.48 cm Kallie Sloan MA [facility] 01/25/20 20 11:49:06 Date Recorded Body height Provider Name an d Address Organization Details Last Updated DateTime 01/30/2020 157.48 cm Anabela Blanc MA [facility] 01/30/2020 14:32:47 Date Recorded Body height Body mass index (BMI) Body weight Body temperature Oxygen saturation Oxygen saturation in Arterial blood by Pulse oximetry Heart rate Systolic blood pressure Diastolic blood pressure Provider Name and Address Organization Details Last Updated DateTime 0 157.48 cm 31.1 kg/m2 81347.7 g 98.1 [degF] 93 % 93 % 83 /min 108 mm[Hg] 82 mm[Hg] Anabela Blanc MA [facility] 0 10:40:52 Date Recorded Body height Body mass index (BMI) Body weight Body temperature Oxygen saturation Oxygen saturation in Arterial blood by Pulse oximetry Heart rate Systolic blood pressure Diastolic blood pressure Provider Name and Address Organization Details Last Updated DateTime 0 157.48 cm 31.3 kg/m2 69370 g 98 [degF] 98 % 98 % 80 /min 142 mm[Hg] 90 mm[Hg] Kallie Sloan MA [facility] 0 14:59:34 Social History Question Answer Notes LastModified by Organizat ion Details LastModified Time Tobacco Smoking Status Former Smoker 2012 Anabela Blanc MA null, [facility] 09/06/2019 12:01:14 In The 14 Days Before Symptom Onset, Have You Had Close Contact With A Laboratory-confir med COVID-19 While That Case Was Ill? No Information not available 11/26/2019 If Patient Spent Time In [facility] - Does The Patient Live In [facility]? No Information not available 11/26/2019 In The 14 Days Before Symptom Onset, Have You Had Close Contact With A Person Who Is Under Investigation For COVID-19 While That Person Was Ill? No Information not available 11/26/2019 In The 14 Days Before Symptom Onset, Did The Patient Spend Time In [facility]? No Information not available 11/26/2019 Have [...] Eating Disorder N Anemia N Heart Attack (NC) N Anxiety Disorder Y Diabetes N Muscle, [...] SNOMED-CT Code Diagnosis ICD10 Code Diagnosis Note [id number] Anabela Blanc MA [facility] [address] [place] [address] 09/06/2019 11:41:44 09/07/2019 16:55:26 Chronic depression 864855591 F34.1 Long-term drug therapy 211456598 Z79.899 Essential hypertension 01030399 I10 [id number] Jam Ledezma PA-C [facility] [address] [place] [address] 09/13/2019 11:39:42 09/13/2019 12:10:30 Essential hypertension 03212798 I10 [id number] Jam Ledezma PA-C [facility] [address] [place] [address] 11/26/2019 10:49:30 11/26/2019 12:28:39 Essential hypertension 38601006 I10 Mitral valve prolapse 40 2073291 I34.1 History of transient ischemic attack 607843505 Z86.73 Seasonal a llergic rhinitis 237818063 J30.2 [id number] Jam Ledezma PA-C [facility] [address] [place] [address] 12/10/2019 10:48:06 12/12/2019 11:23:50 Essential hypertension 31777042 I10 Chronic depression 18826 0009 F34.1 Nausea and vomiting 1692 1999 R11.2 [id number] Jam Ledezma PA-C [facility] [address] [place] [address] 12/11/2019 13:09:52 12/12/2019 11:45:12 Mixed hyperlipidemia 283362040 E78.2 [id number] Jam Ledezma PA-C [facility] [address] [place] [address] 12/27/2019 11:02:54 12/28/2019 08:34:57 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 Seasonal a llergic rhinitis 355312797 J30.2 [id number] Jam Ledezma PA-C [facility] [address] [place] [address] 01/25/2020 10:10:00 01/28/2020 08:04:28 Lumbar radiculopathy 552696489 M54.16 [id number] KELLEN Liao [facility] [address] [place] [address] 01/30/2020 11:07:31 01/31/2020 07:58:24 Idiopathic hypercalcemia 613682615 E83.52 Stress fra cture of tibia 319192292 M84.361A Osteoporosis 90940016 M8 1.0 [id number] Anabela Blanc MA [facility] [address] [place] [address] 02/11/2020 10:34:29 02/11/2020 15:10:24 Pain in right lower limb 237115760 M79.604 Long-term drug therapy 125593091 Z79.883 [id number] Jam Ledezma PA-C [facility] [address] [place] [address] 02/20/2020 14:44:57 02/20/2020 15:38:07 Pathological fracture of right tibia 6051817652 2997786 M84.461G Complaining of a rash 16 9206714 R21 [id number] Jam Ledezma PA-C [facility] [address] [place] [address] 04/22/2020 09:33:20 04/23/2020 12:40:11 Osteopenia 121183105 M85.88 Pathologic al fracture of right tibia 9628447493 6603111 M84.461G Health Concerns Section Related Observation LastModified by Organization Detai ls LastModified Time None Recorded Concern Status LastModified by Organization Details LastModified Time None Recorded Advance Directives Directive None Recorded Payers Encounter Date Sequence Insurance Name Policy Number Policy Bright Covered Member ID Bright Member ID Guarantor Name 01/25/[address] [facility] PRIOR TO 02/26/2021 (MEDICAID REPLACEMENT - HMO) Antoinette Da Silva [id number] Antoinette Da Silva 01/30/[address] [facility] PRIOR TO 02/26/2021 (MEDICAID REPLACEMENT - HMO) Antoinette Da Silva [id number] Antoinette Da Silva 02/11/[address] [facility] PRIOR TO 02/26/2021 (MEDICAID REPLACEMENT - HMO) Antoinette Da Silva [id number] Antoinette Da Silva 02/20/[address] [facility] PRIOR TO 02/26/2021 (MEDICAID REPLACEMENT - HMO) Antoinette Da Silva [id number] Antoinette Da Silva 04/22/[address] [facility] PRIOR TO 02/26/2021 (MEDICAID REPLACEMENT - HMO) Antoinette Da Silva [id number] Antoinette Da Silva Notes Date Note Type [...] osteoporosis Jam Ledezma PA-C Attn: [address]ing[address] [place], [address], [facility] 01/25/2020 12:05:40 01/30/2020 text/html questions re bpressure...162/106 [...] osteoporosis... Jam Ledezma PA-C Attn: Accounting[address] [place], [address], [facility] 01/30/2020 15:08:21 02/11/2020 text/html started january 17..pain in medial lower rt leg..no known injury. went to ER xrays were done. findings of an old healed fracture that the patient denies ever having broken. pain has not improved may have worsened. Anabela Blanc MA [facility], [facility] 02/11/2020 11:25:00 02/20/2020 text/html bone scan reviewed..rib with uptake and rt tib fib with intense uptake they say likely posttraumatic but she denies injury. now skin on forearms are red and that is pruritic not painful Jam Ledezma PA-C Attn: Accounting[address] [place], [address], [facility] 02/20/2020 15:32:42 04/22/2020 text/html follow up on leg fractures that dont belong... Jam Ledezma PA-C Attn: Accounting[address] [facility], [place], [address], [facility] 04/22/2020 17:56:09 OBGyn Episode No OBEpisode recorded.
--- OUTSIDE RECORDS SUMMARY | 2024-12-03 14:50 | XMS_ITS | Clinical Summary ---
Author Organization [facility] Address [address] [place] [address] Phone Care Team Providers Care Social Service Liaison Name Role Phone JAM MCDONNELL PA-C Primary Care Provider [phone] Reason for Visit and Chief Complaint HEART [...] Diagnosis HEART CENTER CHECK UP TIFFANY HOWARD [facility]- 4 10:58AM 11:28AM Insurance Includes: Active Insurance Policies Plan Name Member ID Group # Subscriber Relationship Effect cyn Dates 1 - [employer] MEDIC[employer] ADVANTAGE [id number] NIGHAT DELANEY Self Clinical Notes Includes: Clinical Notes from this encounter No Clinical Notes Recorded
--- OUTSIDE RECORDS SUMMARY | 2024-12-03 14:50 | XMS_ITS | Encounter Summary ---
Author Organization [facility] Address [address] [place] [address] Care Team Providers Care Counter Checker Name Role Phone Yg Lee MD Primary Care Provider [phone] Reason for Referral * CT Scan (Routine) - Pending Review Specialty Diagnoses / Procedures Referred By Mariaa t Referred To Contact Diagnoses Pulmonary nodules Procedures CT CHEST W CONTRAST Yg Lee MD [address] [place] [address] [address] [place] [address] Phone: tel: fax: [address] [address] Phone: tel: fax: Referral ID Status Reason Start Date Expiration Date V isits Requested Visits Authorized [id number] Pending Review 11/13/2024 12/14/2025 1 1 Reason for Visit * Reason Comments Needs Orders Written Encounter Details Date Type Department Care Team (Late st Contact Info) Description 11/13/2024 Telephone [facility] [address] [place] [address] Yg Lee MD [address] [place] [address] [address] [place] [address] Needs Orders Written Social History [...] file Legal Sex Female 6:04 AM [employer] Gender Identity Not on file Sexual Orientation Not on file Occupation Industry Job Start Date Job End Date Not on file Not on file Not on file Not on file documented as of this encounter Miscellaneous Notes * Telephone Encounter - Alicia Yost PCA - 11/13/2024 2:24 PM CDT Called and spoke with patient and faxed to the [facility] and I let patient know that if she has not heard from them then to give them a call * Telephone Encounter - Yg Lee MD - 11/13/2024 12:49 PM CDT Order placed * Telephone Encounter - Yudi Montiel - 11/13/2024 10:38 AM CDT Copied from [facility] #[id number]. Topic: CPA Information Request - Order or Referral Request >> Nov 13, 2024 10:36 AM Yudi Duran wrote: Caller Name: Antoinette Da Silva Patient/Caregiver Callback Number: Patient Contact Information: [phone] Call Notes: order for ct scan with [...] Description 12/04/2024 3:00 PM CDT Office Visit [facility] [place] [address] Yg Lee MD [address] [place] [address] [address] [place] [address] Scheduled Orders Name Type Priority Associated Diagnoses Orde r Schedule CT CHEST W CONTRAST Imaging Routine Pulmonary nodules 1 Occurrences starting 11/13/2024 until 11/13/2025 documented as of this encounter Visit Diagnoses Diagnosis Pulmonary nodules- Primary Other nonspecific abnormal finding of lung field documented in this encounter Care Teams Counter Checker Relationship Specialty Start Date End Date Yg Lee MD PCP - General Internal Medicine 12/20/18 documented as of this encounter
--- OUTSIDE RECORDS SUMMARY | 2024-12-03 14:50 | XMS_ITS ---
Author Organization [facility] Address [address] [place] [address] Phone Care Team Providers Care Harvesting Supervisor Name Role Phone JAM MCDONNELL PA-C Primary Care Provider [phone] Plan of Treatment No Plan of Treatment [...] On 07/08/2010 5:57PM By ALVIN BASS ; [facility] Premarin 1.25 MG OR TABS 09/02/2009 - 08/28/2010 Provi anastasia: Diagnosis: Last Documented On 11/11/2009 9:36AM By BONNIE MORALES ; [facility] Premarin 1.25 MG OR TABS 07/23/2008 - 07/18/2009 Provi anastasia: Diagnosis: Last Documented On 11/11/2009 9:37AM By BONNIE MORALES ; [facility] Amoxicillin 500 MG OR TABS 07/03/2007 - 07/13/2007 Pro vider: Diagnosis: Last Documented On 11/11/2009 9:38AM By BONNIE MORALES ; [facility] Premarin 1.25 MG OR TABS 07/05/2006 - 06/30/2007 Provi anastasia: Diagnosis: Last Documented On 11/11/2009 9:39AM By BONNIE MORALES ; [facility] Premarin 1.25 MG OR TABS 08/27/2005 - 07/23/2006 Provi anastasia: Diagnosis: Last Documented On 11/11/2009 9:40AM By BONNIE MORALES ; [facility] Medications Administered Includes: Administered Medications in patient's chart No Administered Medications Recorded Results Includes: Results from 12/04/2023 through 12/03/2024 No Results Recorded For Specified Dates History of Present Illness History of Present Illness not supported for this document type No History of Present Illness Recorded Social History Description Last Updated 11/11/2009 Last Documented On 0 9:43AM ; [facility] Exercise frequency was three times/week 11/11/2009 Last Documented On 0 9:43AM ; [facility] Exercising regularly 11/11/2009 Last Documented On 0 9:43AM ; [facility] Sexually active 11/11/2009 Last Documented On 0 9:43AM ; [facility] Sexually active with 1 partners in the l ast year 11/11/2009 Last Documented On 0 9:43AM ; [facility] Smoking Status Unknown Procedures and Surgical History Includes: Procedures from 12/04/2023 through 12/03/2024 Procedures Code Diagnosis Performing Provider Service Location Service Date CLINIC FACILITY FEE (Signi/Sep Eval & Man) G0463 Nonrheumatic mitral (valve) insufficiency, Paroxysmal atrial fibrillation, Obstructive sleep apnea (adult) (pediatric), Essential (primary) hypertension [facility] 12/13/2023 Last Documented On 4 2:24PM ; [facility] Medical History Includes: Medical History in patient's chart Description Last Updated HYSTERECTOMY ~BTL 11/11/2009 Last Documented On 0 9:43AM ; [facility] 2 living children 11/11/2009 Last Documented On 0 9:43AM ; [facility] A mammogram was performed 11/11/2009 Last Documented On 0 9:43AM ; [facility] A Pap smear was performed 11/11/2009 Last Documented On 0 9:43AM ; [facility] weight: was 7.4 lbs 11/11/2009 Last Documented On 0 9:43AM ; [facility] Breast problems 11/11/2009 Last Documented On 0 9:43AM ; [facility] Delivery date 198411/11/2009 Last Documented On 0 9:43AM ; [facility] Duration of labor: was six hr 11/11/2009 Last Documented On 0 9:43AM ; [facility] Gestational age: was 40 weeks 11/11/2009 Last Documented On 0 9:43AM ; [facility] 2 11/11/2009 Last Documented On 0 9:43AM ; [facility] History of the 2nd : 11/11/2009 Last Documented On 0 9:43AM ; [facility] Last mammogram date: 07/19/08 11/11/2009 Last Documented On 0 9:43AM ; [facility] Last pap smear date 200711/11/2009 Last Documented On 0 9:43AM ; [facility] Oral contraceptives 11/11/2009 Last Documented On 0 9:43AM ; [facility] Status post tubal ligation 11/11/2009 Last Documented On 0 9:43AM ; [facility] Family History Includes: Family History in patient's chart Description Last Updated Family history of Cancer 11/11/2009 Last Documented On 0 9:43AM ; [facility] Family history of thyroid disease 2009 Last Documented On 0 9:43AM ; [facility] Family medical history of high blood pre ssure 11/11/2009 Last Documented On 0 9:43AM ; [facility] Review of Systems Review of Systems not supported for this document type No Review of Systems Recorded Mental Status No Mental Status Recorded Functional Status No Functional Status Recorded Physical Exam Physical Exam not supported for this document type No Physical Exam Recorded Allergies Includes: Active, inactive, and resolved Allergies No Known Allergies Encounters Includes: Encounters from 12/04/2023 through 12/03/2024 Encounter Provider Location Date Check-In Time Check- Out Time Diagnosis HOSPITAL FOLLOW UP EXAM TIFFANY HOWARD [facility]- 4 12:43PM 1:47PM Insurance Includes: Active Insurance Policies Plan Name Member ID Group # Subscriber Relationship Effect cyn Dates 1 - [employer] MED[employer] ADVANTAGE [id number] NIGHAT DELANEY Self Clinical Notes Includes: Signed Clinical Notes starting from 09/17/2022 No Clinical Notes Recorded
--- OUTSIDE RECORDS SUMMARY | 2024-12-03 14:50 | XMS_ITS | Clinical Summary ---
Author Organization [facility] Address [address] [place] [address] Phone Care Team Providers Care Cable Splicer Apprentice Name Role Phone JAM MCDONNELL PA-C Primary Care Provider [phone] Reason for Visit and Chief Complaint [...] (adult) (pediatric), Essential (primary) hypertension TIFFANY Chaudhari [facility] 12/13/2023 Last Documented On 4 2:24PM ; [facility] Medical History Includes: Medical History addressed [...] Diagnosis HOSPITAL FOLLOW UP EXAM TIFFANY SAUCEDO [facility]- 4 12:43PM 1:47PM Insurance Includes: Active Insurance Policies Plan Name Member ID Group # Subscriber Relationship Effect cyn Dates 1 - [employer]OSS MEDICARE ADVANTAGE [id number] NIGHAT DELANEY Self Clinical Notes Includes: Clinical Notes from this encounter No Clinical Notes Recorded
--- OUTSIDE RECORDS SUMMARY | 2024-12-03 14:50 | XMS_ITS ---
Care Plan - [facility] Created on: December 03, 2024 NIGHAT DELANEY : 1960 Sex: Female Author Organization [facility] Address [address] [place] [address] Phone Care Team Providers Care Hide Inspector Name Role Phone JAM MCDONNELL PA-C Primary Care Provider [phone]
--- OUTSIDE RECORDS SUMMARY | 2024-12-03 14:51 | XMS_ITS | Clinical Summary ---
Author Organization [facility] Address [address] [place] [address] Phone Care Team Providers Care Stereoplotter Operator Name Role Phone JAM MCDONNELL PA-C Primary Care Provider [phone] Reason for Visit and Chief Complaint HEART [...] CENTER FOLLOW UP TIFFANY HOWARD [facility]- 3 1:47PM 2:40PM Insurance Includes: Active Insurance Policies Plan Name Member ID Group # Subscriber Relationship Effect cyn Dates 1 - [employer] MED[employer] ADVANTAGE [id number] NIGHAT DELANEY Self Clinical Notes Includes: Clinical Notes from this encounter No Clinical Notes Recorded
--- OUTSIDE RECORDS SUMMARY | 2024-12-03 14:51 | XMS_ITS | Encounter Summary ---
Author Organization [facility] Address [address] [place] [address] Care Team Providers Care Slate Roofer Helper Name Role Phone Jose Cruz Ledezma Primary Care Provider [phone] Yg Lee MD Primary Care Provider + Mitchell Zamarripa MD Unavailable [phone] Brit More JUNIOR BOOKKEEPER Unavailable [phone] Cliff Ronquillo NP Unavailable [phone] Dick Aguilar Unavailable [phone] Gavin Sewell MD Unavailable [phone] Reason for Visit * Reason Onset Date Comments Scheduling Appointments 03/24/2020 Called f or DEXA appointment reminder Encounter Details Date Type Department Care Team (Late st Contact Info) Description 03/24/2020 Telephone [facility] [address] [place] [address] [address] Hernandez RT Scheduling Appointments (Called for DEXA appointment reminder) Social History Tobacco Use Types Packs/Day Years Used Date Smoking Tobacco: Former Smokeless Tobacco: Never Alcohol Use Standard Drinks/Week Comments Yes 0 (1 standard drink = 0.6 oz pur e alcohol) occasional Comments No Sex and Gender Information Value Date Recorded Sex Assigned at Not on file Legal Sex Female 11:50 PM 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 Gender Identity Not on file [...] COVID: Suspected 07/22/2024 07/22/2024 07/22/2024 9:25 AM SUGAR CANE 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 documented as of this encounter Care Teams Slate Roofer Helper Relationship Specialty Start Date End Date Jose Cruz Ledezma PA [address] [place] [address] PCP - General 01/24/20 08/18/20 Yg Lee MD [address] [place] [address] PCP - General Internal Medicine 08/19/20 Mitchell Zamarripa MD [address] [place] [address] Referring Physician Rheumatology 03/11/22 Brit More NP [address] [place] [address] Nurse Practitioner Cardiovascular Disease 03/11/22 Cliff Ronquillo NP [address] [place] [address] [address] [place] [address] Nurse Practitioner Nurse Practitioner 05/05/22 Dick Aguilar PA [address] [place] [address] [address] [place] [address] Physician Burglar Alarm Superintendent Orthopedic Surgery 11/11/22 Gavin Sewell MD [address] [facility] [address] [facility] [address] [place] [address] Surgeon Orthopedic Surgery 12/24/22 documented as of this encounter
--- OUTSIDE RECORDS SUMMARY | 2024-12-03 14:51 | XMS_ITS | Clinical Summary ---
Author Organization [facility] Address [address] [place] [address] Phone Care Team Providers Care Tool Room Lathe Operator Name Role Phone JAM MCDONNELL PA-C Primary Care Provider [phone] Reason for Visit and Chief Complaint LEXISCAN [...] Dates 1 - [employer] MED[employer] ADVANTAGE [id number] NIGHAT DELANEY Self Clinical Notes Includes: Clinical Notes from this encounter No Clinical Notes Recorded
--- OUTSIDE RECORDS SUMMARY | 2024-12-03 14:51 | XMS_ITS | Clinical Summary ---
Author Organization [facility] Address [address] [place] [address] Phone Care Team Providers Care Waterworks Pump Station Operator Name Role Phone JAM MCDONNELL PA-C Primary Care Provider [phone] Reason for Visit and Chief Complaint ECHOCARDIOGRAM [...] Check-Out Time Diagnosis ECHOCARDIOGRAM ELTON GROVER MD [facility] 08/02/20 23 8:35AM 9:29AM Insurance Includes: Active Insurance Policies Plan Name Member ID Group # Subscriber Relationship Effect cyn Dates 1 - [place] [employer] MED[employer] ADVANTAGE [id number] NIGHAT DELANEY Self Clinical Notes Includes: Clinical Notes from this encounter No Clinical Notes Recorded
--- OUTSIDE RECORDS SUMMARY | 2024-12-03 14:51 | XMS_ITS | Clinical Summary ---
Author Organization [facility] Address [address] [place] [address] Care Team Providers Care Slot Key Person Name Role Phone Mariah Adams MD Primary Care Provider + Mitchell Zamarripa MD Unavailable [phone] Brit More NP Unavailable [phone] Cliff Ronquillo NP Unavailable Dick Aguilar Unavailable [phone] Gavin Sewell MD Unavailable Allergies Active Allergy [...] 1 tablet (100 mcg total) by mouth imcu specialist before breakfast 1 Active celecoxib (CeleBREX) [...] 08/14/2024 Assessment & Plan (08/14/2024 9:48 AM GRAY TENDER): The patient likely has chronic cholecystitis given [...] (04/23/2022): Added automatically from request for surgery [id number] Posterior tibial tendon dysfunction 03/02/2022 Flat foot [...] 01/04/2018 Assessment & Plan (09/19/2018 1:30 PM GRAY TENDER): Low disease activity today on exam. Take [...] Department Care Team Description 09/10/2024 9:16 AM GRAY TENDER Anesthesia Event [facility] Operating Room [address] [place] [address] Tonia Gutierrez MD Reynolds, Ethan Emerson, MD 09/10/2024 9:15 AM GRAY TENDER - 09/10/2024 10:45 AM GRAY TENDER Surgery [facility] Operating Room [address] [place] [address] Vignesh Hawkins MD LAPAROSCOPIC CHOLECYSTECTOMY 09/10/2024 8:13 AM GRAY TENDER - 09/10/2024 2:39 PM GRAY TENDER Hospital Encounter [facility] Operating Room [address] [place] [address] Vignesh Hawkins MD Calculus of gallbladder with [...] often do you attend chur ch or taoism services? Never 12/23/2022 Do you belong to any clubs o r organizations such as scientologist groups, unions, fraternal or athletic groups, or [...] staff should administer the PHQ-9) 0 11/23/2023 [facility] [place] of Occupat ional Health - Occupational Stress [...] place to sleep or slept in a chcf (including now)? No 12/23/2022 Personal Safety Answer Date Recorded Have you ever been in or are you currently in a harmful physical or emotional relationship or is someone making you feel afraid or unsafe? Denies 09/10/2024 Comments No Sex and Gender Information Value Date Recorded Sex Assigned at Not on file Legal Sex Female 11:50 PM GRAY TENDER Gender Identity Not on file Sexual Orientation Not on file Obstetrics History Last Filed Vital Signs Vital Sign Reading Time Taken Comments Blood Pressure 119/69 09/10/2024 2:00 PM GRAY TENDER Pulse 69 09/10/2024 2:00 PM GRAY TENDER Temperature 36.4 C (97.6 F) 09/10/2024 2:00 PM GRAY TENDER Respiratory Rate 16 09/10/2024 2:00 PM GRAY TENDER Oxygen Saturation 94% 09/10/2024 2:00 PM GRAY TENDER Inhaled Oxygen Concentration - - Weight 67.6 kg (149 lb 0.5 oz) 09/10/2024 8:15 A M GRAY TENDER Height 154.9 cm (5' 1 ) 09/10/2024 8:15 AM GRAY TENDER Body Mass Index 28.16 09/10/2024 8:15 AM GRAY TENDER Plan of Treatment Health Maintenance Due Date Last Done Comments Colon Cancer Screening-Colonoscopy 1960 Hepatitis B Screening 1980 Regular Well Visit/Exam 18-64 1980 Zoster Vaccine (1 of 2) 2012 DTaP/Tdap/Td Vaccine (2 - Td or Tdap) 06/15/2021 06/15/2011 Covid-19 Vaccine (3 - 2023-2 5 season) 2024 04/22/2021, 04/01/2021 Depression Screening 11/21/2024 11/22/2023, 12/21/2022, 12/21/2022, Additional history exists Influenza Vaccine (Season Ended) 2025 09/01/2022, 05/29/2022, 08/14/2021, Additional history exists Breast Cancer Screening-Mammogram 05/16/2025 05/16/2024, 05/16/2024, 10/08/2022, Additional history exists Pneumococcal vaccine <65 (3 of 3 - PCV20 or PCV21) 10/20/2025 10/20/2020, 07/18/2017, 06/15/2011 Hepatitis C Screening Completed 11/01/2014 Medical Devices Implanted Type Area Community Outreach Director Device Identifier Shelf Expiration Date Model / Serial / Lot Exactech Restrictor Cement Cemex Small Od13mm Tpa-13 - [id number] Implanted:Qty: 1 on 05/04/2022 by Gavin Sewell MD at [facility] Left: Shoulder Exactech 08/28/2023 TPA-13 / / [id number] Exactech Equinoxe Reverse Shoulder +0mm Tray Humeral Adapter 320-10-00 - [id number] - [id number] Implanted:Qty: 1 on 05/04/2022 by Gavin Sewell MD at [facility] Exactech [id number] 04/07/2032 320-1000 / [id number] / Exactech Equinoxe 40mm Small Reverse Constrain Shoulder +2.5mm Liner 320-40-13 - [id number] - [id number] Implanted:Qty: 1 on 05/04/2022 by Gavin Sewell MD at [facility] Ex[employer]ech 01/31/2024 320-40-13 / [id number] / Exactech Equinoxe Lock Reverse Shoulder Glenosphere Screw Bone 320-15- - [id number] - [id number] Implanted:Qty: 1 on 05/04/2022 by Gavin Sewell MD at [facility] Left: Shoulder Exactech 03/09/2027 320-15- / [id number] / Exactech Reverse Torque Define Shoulder Kit Screw 320-20-00 - [id number] - [id number] Implanted:Qty: 1 on 05/04/2022 by Gavin Sewell MD at [facility] Left: Shoulder [employer]ech 02/03/2027 320-20-00 / [id number] / Exactech Equinoxe Small Reverse Superior Posterior Augment Shoulder Left 320-35-07 - [id number] - [id number] Implanted:Qty: 1 on 05/04/2022 by Gavin Sewell MD at [facility] Left: Shoulder Exactech [id number] 04/08/2031 320-35-07 / [id number] / Exactech Equinoxe 10mm Stem Humeral Sterile 300-01-10 - [id number] - [id number] Implanted:Qty: 1 on 05/04/2022 by Gavin Sewell MD at [facility] Left: Shoulder Ex[employer]ech [id number] 09/07/2031 300-10 / [id number] / [employer] Cement Bone Simplex Gentamicin High Viscosity 40gm 6195-1-001 - [id number] Implanted:Qty: 1 on 05/04/2022 by Gavin Sewell MD at [facility] Left: Shoulder [employer] 09/28/2023 6195-1-001 / / [id number] Exactech Equinoxe 40mm 24.3mm Small Reverse Shoulder Sphere Glenoid 320-31-40 - [id number] - [id number] Implanted:Qty: 1 on 05/04/2022 by Gavin Sewell MD at [facility] Left: Shoulder Ex[employer]ech [id number] 12/11/2030 320-31-40 / [id number] / Exactech Equinoxe 4.5mm 38mm Kit Compression Lock Cap Reverse Shoulder 320-20-38 - [id number] - [id number] Implanted:Qty: 1 on 05/04/2022 by Gavin Sewell MD at [facility] Left: Shoulder [employer]ech [id number] 01/12/2027 320-20-38 / [id number] / Exactech Equinoxe 4.5mm 34mm Kit Compression Lock Cap Reverse Shoulder 320-20-34 - [id number] - [id number] Implanted:Qty: 1 on 05/04/2022 by Gavin Sewell MD at [facility] Left: Shoulder Exactech [id number] 07/14/2026 320-20-34 / [id number] / [employer] Insert Tibial Knee Fixed Lm Posterior Stabilized Attune 7mm Size 5 Polyethylene [id number] - [id number] Implanted:Qty: 1 on 11/10/2022 by Gavin Sewell MD at [facility] Left: Knee [employer] 07/28/2030 [id number] / / [id number] [employer] Attune Cruciate Retain Cementless Knee Left 5 Component Femoral [id number] - [id number] Implanted:Qty: 1 on 11/10/2022 by Gavin Sewell MD at [facility] Left: Knee [employer] 04/28/2032 [id number] / / [id number] [employer] Attune Fb Tib Base Sz 5 Por [id number] - [id number] Implanted:Qty: 1 on 11/10/2022 by Gavin Sewell MD at [facility] Left: Knee [employer] 03/28/2032 [id number] / / [id number] Procedures Procedure Name Priority Date/Time Associated Diagnosis Comments SURGICAL PATHOLOGY Routine 09/10/2024 10 :29 AM GRAY TENDER Calculus of gallbladder with cholecystitis without biliary obstruction, unspecified cholecystitis acuity MD AN ELECTIVE ENDOTRACHEAL AIRWAY Routine 09/10/2024 9:36 AM GRAY TENDER LAPAROSCOPIC CHOLECYSTECTOMY 09/10/2024 9:02 AM GRAY TENDER Calculus of gallbladder with cholecystitis without biliary obstruction, unspecified cholecystitis acuity EGFR STAT 09/10/2024 8:47 AM GRAY TENDER DIFFERENTIAL AUTO STAT 09/10/2024 8:4 7 AM GRAY TENDER ANTIBODY SCREEN STAT 09/10/2024 8:47 AM GRAY TENDER ABO/RH STAT 09/10/2024 8:47 AM GRAY TENDER TYPE AND SCREEN STAT 09/10/2024 8:47 AM GRAY TENDER CBC WITH AUTO DIFFERENTIAL STAT 09/10/2024 8:47 AM GRAY TENDER COMPREHENSIVE METABOLIC PANEL STAT 09/10/2024 8:47 AM GRAY TENDER B ABO / RH CONFIRMATION TESTING STAT 09/10/2024 8:45 AM GRAY TENDER SERUM HEPATITIS C AB Routine 11/01/2014 8:32 AM GRAY TENDER DIGITAL MAMMOGRAPHY Routine 12/11/2013 1 1:01 AM CDT from Last 3 Months or Most Recently Relevant to Health Maintenance Results * Surgical pathology (09/10/2024 10:29 AM GRAY TENDER) Tissue specimen (specimen) (Gallbladder) 09/10/2024 9:51 AM GRAY TENDER Narrative PATHOLOGY [facility] ([place]) - 09/11/2024 3:50 PM GRAY TENDER EPIC results best viewed via link to PDF [facility] Department of Pathology [address] [place] [id number] Note to Patients: This report may contain [...] Final Report Patient Name: ANTOINETTE DELANEY Address: [address] [place], [place] [id number] Gender: F : 1960 (Age: 64) Service: Surgery Location: [facility] Hospital #: [id number] Patient Type: [facility] Taken: 09/10/2024 Received: 09/10/2024 Accessioned: [...] determined by the Surgical Pathology Department at [facility] as part of an ongoing aerospace quality engineer program and in compliance with [...] determined by the Surgical Pathology Department [facility]. It has not been cleared or approved by the U. S. Food and Drug Administration. Note for decalcified specimens: This assay has not been validated on decalcified tissues. Results should be interpreted with caution given the possibility of false negativity on decalcified specimens Vignesh Hawkins MD LAB PATHOLOGY OR DERABLES Final Result PATHOLOGY [facility] ([address] [address] * MD AN ELECTIVE ENDOTRACHEAL AIRWAY (09/10/2024 9:36 AM GRAY TENDER) Cliff [place] CRNA - 09/10/2024 9:36 AM GRAY TENDER Cliff Davis CRNA 09/10/2024 9:37 AM Airway [...] nal Result * eGFR (09/10/2024 8:47 AM GRAY TENDER) eGFR >90 >=60 mL/min/1. 73 m2 Comment: [...] last reviewed 2021. Blood 09/10/2024 8:47 AM GRAY TENDER 09/10/2024 8:50 AM GRAY TENDER us Vignesh Hawkins MD LAB BLOOD ORDERA BLES Final Result [facility]) [facility] [place] [address] * Differential, auto (09/10/2024 8:47 AM GRAY TENDER) Neutrophil abs 5.3 1.5 - 6.5 K/cumm Imm gran abs 0.0 0.0 - 0.1 K/cumm [facility] ([place]) Lymphocyte abs 0.8 0.8 - 3.3 K/cumm [facility] ([place]) Monocyte abs 0.6 0.2 - 0.8 K/cumm [facility] ([place]) Eosinophil abs 0.3 0.0 - 0.5 K/cumm [...] revised on 2017. Blood 09/10/2024 8:47 AM GRAY TENDER 09/10/2024 8:50 AM GRAY TENDER us Vignesh Hawkins MD LAB BLOOD ORDERA BLES Final Result [facility] ([place]) 1 [facility] [place] [address] * (ABNORMAL) CBC with auto differential (09/10/2024 8:47 AM GRAY TENDER) WBC 7.1 3.8 - 9.9 K/cumm Hgb [...] [facility] ([place]) Blood 09/10/2024 8:47 AM GRAY TENDER 09/10/2024 8:50 AM GRAY TENDER Vignesh Hawkins MD LAB BLOOD ORDERA BLES Final Result [facility] ([place]) 1 [facility] [place] [address] * ABO/Rh (09/10/2024 8:47 AM GRAY TENDER) ABO/Rh B Positive Blood 09/10/2024 8:47 AM GRAY TENDER 09/10/2024 8:49 AM GRAY TENDER Narrative [facility] ([place]) - 09/10/2024 9:11 AM GRAY TENDER Has the patient had Daratumumab or Isatuximab in the past 6 months?->Unknown Vignesh Hawkins MD LAB BLOOD BANK T EST ORDERABLES Final Result [facility] ([place]) 1 [facility] [place] [address] * Antibody screen (09/10/2024 8:47 AM GRAY TENDER) Pathologist [facility] [place], indirect, Gel Interpretation Negative ABSC Blood 09/10/2024 8:47 AM GRAY TENDER 09/10/2024 8:49 AM GRAY TENDER Narrative [facility] ([place]) - 09/10/2024 9:25 AM GRAY TENDER Has the patient had Daratumumab or Isatuximab in the past 6 months?->Unknown Vignesh Hawkins MD LAB BLOOD BANK T EST ORDERABLES Final Result Performing Organization Address City/[facility]/ZIP Co de Phone Number [facility] ([place]) 1 [facility] [place] [address] * (ABNORMAL) Comprehensive metabolic panel (09/10/2024 8:47 AM GRAY TENDER) Pathologist [facility] Sodium 133(L) 135 - 145 mmol/L Comment:sandra moreno(AMB SUrg) Potassium, pl 2.9(C) 3.3 - 4.9 mmol/L [facility] ([place]) Comment:Critical Result call ed by [email or web address] at 2024-09-10 09:18:13. Result Read Back by [...] SUrg) Creatinine 0.68 0.60 - 1.10 mg/dL [facility] ([place]) Comment:sandra moreno(AMB SUrg) Glucose 121 [...] Comment:sandra cisnerosr(AMB SUrg) Blood 09/10/2024 8:47 AM GRAY TENDER 09/10/2024 8:50 AM GRAY TENDER Vignesh Hawkins MD LAB BLOOD ORDERA BLES Final Result [facility] ([place]) 1 [facility] of [facility] [place] [id number] * ABO / Rh Confirmation Testing (09/10/2024 8:45 AM GRAY TENDER) ABO/Rh Confirmation B Positive [facility] Blood 09/10/2024 8:45 AM GRAY TENDER 09/10/2024 9:13 AM GRAY TENDER Vignesh Hawkins MD LAB BLOOD ORDERA BLES Final Result [facility] ([place]) 1 [facility] [place] [address] [facility] * Serum Hepatitis C ab (11/01/2014 8:32 AM GRAY TENDER) HCV ab Negative NEG HISTORICAL RESULTS Serum 11/01/2014 8:32 AM GRAY TENDER Narrative HISTORICAL RESULTS - 11/02/2014 3:46 AM GRAY TENDER Interpretive Data If confirmation is required, call Laboratory Customer Service to request sample to be sent to [facility] for Hepatitis C Virus (HCV) RNA Detection and Quantitation by Real-Time Reverse Signing Teacher-PCR (RT-PCR). Current interpretive data was last revised on 2011 us Fariha Whitley MD LAB BLOOD ORDERABLES Final R esult HISTORICAL RESULTS * DIGITAL MAMMOGRAPHY (12/11/2013 11:01 AM CDT) Anatomical Region Laterality Modality Breast Mammography 12/11/2013 11:0 1 AM CDT Narrative 12/12/2013 12:15 AM CDT Vm Mammogram Performed by: LT Screening Mamm Bi Acc#: [id number] DATE OF EXAM: Dec 11 2013 CLINICAL [...] Performed by: LT Screening Mamm Bi Acc#: [id number] DATE OF EXAM: Dec 11 2013 CLINICAL [...] Advance Directives For more information, please contact: [phone] * Full Code (Latest Code Status on File) Date Activated Date Inactivated Comments 11/22/2023 6:25 PM 11/25/2023 11:09 PM * Full Code Date Activated Date Inactivated Comments 12/21/2022 5:34 PM 12/24/2022 8:16 PM * Full Code Date Activated Date Inactivated Comments 11/10/2022 4:25 PM 11/11/2022 3:51 PM * Full Code Date Activated Date Inactivated Comments 05/04/2022 1:38 PM 05/05/2022 6:47 PM Care Teams Slot Key Person Relationship Specialty Start Date End Date Mariah Adams MD PCP - General Internal Medicine 08/19/20 Mitchell Zamarripa MD Referring Physician Rheumatology 03/11/22 Brit More NP Nurse Practitioner Cardiovascular Disease 03/11/22 Cliff Ronquillo NP [address] [facility] [address] [place] [address] Nurse Practitioner Nurse Practitioner 05/05/22 Dick Aguilar PA [address] [facility] [address] [place] [address] Physician Copy Messenger Orthopedic Surgery 11/11/22 Gavin Sewell MD [address] [facility] [address] [place] [address] Surgeon Orthopedic Surgery 12/24/22
--- OUTSIDE RECORDS SUMMARY | 2024-12-03 14:51 | XMS_ITS | Referral Summary ---
Author Organization [facility] Address [address] [place] [address] Care Team Providers Care Folder Seamer Automatic Name Role Phone Mariah Adams MD Primary Care Provider + Mitchell Zamarripa MD Unavailable [phone] Brit More PHOTOTYPESETTER OPERATOR Unavailable [phone] Cliff Ronquillo NP Unavailable [phone] Dick Aguilar Unavailable [phone] Gavin Sewell MD Unavailable [phone] Encounters Date Type Department Care Team Description 09/10/2024 9:15 AM TRACK SERVICE PERSON - 09/10/2024 10:45 AM TRACK SERVICE PERSON Surgery [facility] Operating Room [address] [place] [address] Vignesh Hawkins MD LAPAROSCOPIC CHOLECYSTECTOMY 09/10/2024 9:16 AM TRACK SERVICE PERSON Anesthesia Event [facility] Operating Room [address] [place] [address] Tonia Gutierrez MD Reynolds, Ethan Emerson, MD 09/10/2024 8:13 AM TRACK SERVICE PERSON - 09/10/2024 2:39 PM TRACK SERVICE PERSON Hospital Encounter [facility] Operating Room [address] [place] [address] Vignesh Hawkins MD Calculus of gallbladder with [...] tablet (100 mcg total) by mouth early head start teacher before breakfast 1 Active celecoxib (CeleBREX) 100 [...] 08/14/2024 Assessment & Plan (08/14/2024 9:48 AM TRACK SERVICE PERSON): The patient likely has chronic cholecystitis given [...] (04/23/2022): Added automatically from request for surgery [id number] Posterior tibial tendon dysfunction 03/02/2022 Flat foot [...] 01/04/2018 Assessment & Plan (09/19/2018 1:30 PM TRACK SERVICE PERSON): Low disease activity today on exam. Take [...] week 12/23/2022 How often do you attend [facility] or muslim services? Never 12/23/2022 Do you belong to any clubs o r organizations such as spiritism groups, unions, fraternal or athletic groups, or [...] staff should administer the PHQ-9) 0 11/23/2023 [facility] - [...] on file Legal Sex Female 11:50 PM TRACK SERVICE PERSON Gender Identity Not on file Sexual Orientation Not on file Last Filed Vital Signs Vital Sign Reading Time Taken Comments Blood Pressure 119/69 09/10/2024 2:00 PM TRACK SERVICE PERSON Pulse 69 09/10/2024 2:00 PM TRACK SERVICE PERSON Temperature 36.4 C (97.6 F) 09/10/2024 2:00 PM TRACK SERVICE PERSON Respiratory Rate 16 09/10/2024 2:00 PM TRACK SERVICE PERSON Oxygen Saturation 94% 09/10/2024 2:00 PM TRACK SERVICE PERSON Inhaled Oxygen Concentration - - Weight 67.6 kg (149 lb 0.5 oz) 09/10/2024 8:15 A M TRACK SERVICE PERSON Height 154.9 cm (5' 1 ) 09/10/2024 8:15 AM TRACK SERVICE PERSON Body Mass Index 28.16 09/10/2024 8:15 AM TRACK SERVICE PERSON Plan of Treatment Not on file Medical Devices Implanted Type Area Healthcare Representative Device Identifier Shelf Expiration Date Model / Serial / Lot Exactech Restrictor Cement Cemex Small Od13mm Tpa-13 - [id number] Implanted:Qty: 1 on 05/04/2022 by Gavin Sewell MD at [facility] Left: Shoulder Exactech 08/28/2023 TPA-13 / / [id number] Exactech Equinoxe Reverse Shoulder +0mm Tray Humeral Adapter 320-10-00 - [id number] - [id number] Implanted:Qty: 1 on 05/04/2022 by Gavin Sewell MD at [facility] Ex[employer]ech [id number] 04/07/2032 320-10-00 / [id number] / Exactech Equinoxe 40mm Small Reverse Constrain Shoulder +2.5mm Liner 320-40-13 - [id number] - [id number] Implanted:Qty: 1 on 05/04/2022 by Gavin Sewell MD at [facility] Ex[employer]ech 01/31/2024 320-40-13 / [id number] / Exactech Equinoxe Lock Reverse Shoulder Glenosphere Screw Bone 320-15- - [id number] - [id number] Implanted:Qty: 1 on 05/04/2022 by Gavin Sewell MD at [facility] Left: Shoulder Exactech 03/09/2027 320-15 / [id number] / Exactech Reverse Torque Define Shoulder Kit Screw 320-20 - [id number] - [id number] Implanted:Qty: 1 on 05/04/2022 by Gavin Sewell MD at [facility] Left: Shoulder Ex[employer]ech 02/03/2027 32020 / [id number] / Exactech Equinoxe Small Reverse Superior Posterior Augment Shoulder Left 320-35- - [id number] - [id number] Implanted:Qty: 1 on 05/04/2022 by Gavin Sewell MD at [facility] Left: Shoulder Ex[employer]ech [id number] 04/08/2031 320-35- / [id number] / Exactech Equinoxe 10mm Stem Humeral Sterile 300-09-07 - [id number] - [id number] Implanted:Qty: 1 on 05/04/2022 by Gavin Sewell MD at [facility] Left: Shoulder Exactech [id number] 09/07/2031 300-09-07 / [id number] / [employer] Cement Bone Simplex Gentamicin High Viscosity 40gm 6195-1-001 - [id number] Implanted:Qty: 1 on 05/04/2022 by Gavin Sewell MD at [facility] Left: Shoulder [employer] 09/28/2023 6195-1-001 / / [id number] Exactech Equinoxe 40mm 24.3mm Small Reverse Shoulder Sphere Glenoid 320-31- - [id number] - [id number] Implanted:Qty: 1 on 05/04/2022 by Gavin Sewell MD at [facility] Left: Shoulder Ex[employer]ech [id number] 12/11/2030 320--40 / [id number] / Exactech Equinoxe 4.5mm 38mm Kit Compression Lock Cap Reverse Shoulder [id number] - [id number] - [id number] Implanted:Qty: 1 on 05/04/2022 by Gavin Sewell MD at [facility] Left: Shoulder [employer]ech [id number] 01/12/2027 320-20-38 / [id number] / Exactech Equinoxe 4.5mm 34mm Kit Compression Lock Cap Reverse Shoulder 320-20-34 - [id number] - [id number] Implanted:Qty: 1 on 05/04/2022 by Gavni Sewell MD at [facility] Left: Shoulder Exactech [id number] 07/14/2026 320-20-34 / [id number] / [employer] Insert Tibial Knee Fixed Lm Posterior Stabilized Attune 7mm Size 5 Polyethylene [id number] - [id number] Implanted:Qty: 1 on 11/10/2022 by Gavin Sewell MD at [facility] Left: Knee [employer] 07/28/2030 [id number] / / [id number] [employer] Attune Cruciate Retain Cementless Knee Left 5 Component Femoral [id number] - [id number] Implanted:Qty: 1 on 11/10/2022 by Gavin Sewell MD at [facility] Left: Knee [employer] 04/28/2032 [id number] / / [id number] [employer] Attune Fb Tib Base Sz 5 Por [id number] - [id number] Implanted:Qty: 1 on 11/10/2022 by Gavin Sewell MD at [facility] Left: Knee [employer] 03/28/2032 [id number] / / [id number] Procedures Procedure Name Priority Date/Time Associated Diagnosis Comments SURGICAL PATHOLOGY Routine 09/10/2024 10 :29 AM TRACK SERVICE PERSON Calculus of gallbladder with cholecystitis without biliary obstruction, unspecified cholecystitis acuity MS AN ELECTIVE ENDOTRACHEAL AIRWAY Routine 09/10/2024 9:36 AM TRACK SERVICE PERSON LAPAROSCOPIC CHOLECYSTECTOMY 09/10/2024 9:02 AM TRACK SERVICE PERSON Calculus of gallbladder with cholecystitis without biliary obstruction, unspecified cholecystitis acuity EGFR STAT 09/10/2024 8:47 AM TRACK SERVICE PERSON DIFFERENTIAL AUTO STAT 09/10/2024 8:4 7 AM TRACK SERVICE PERSON ANTIBODY SCREEN STAT 09/10/2024 8:47 AM TRACK SERVICE PERSON ABO/RH STAT 09/10/2024 8:47 AM TRACK SERVICE PERSON TYPE AND SCREEN STAT 09/10/2024 8:47 AM TRACK SERVICE PERSON CBC WITH AUTO DIFFERENTIAL STAT 09/10/2024 8:47 AM TRACK SERVICE PERSON COMPREHENSIVE METABOLIC PANEL STAT 09/10/2024 8:47 AM TRACK SERVICE PERSON B ABO / RH CONFIRMATION TESTING STAT 09/10/2024 8:45 AM TRACK SERVICE PERSON SERUM HEPATITIS C AB Routine 11/01/2014 8:32 AM TRACK SERVICE PERSON DIGITAL MAMMOGRAPHY Routine 12/11/2013 1 1:01 AM CDT from Last 3 Months or Most Recently Relevant to Health Maintenance Results * Surgical pathology (09/10/2024 10:29 AM TRACK SERVICE PERSON) Tissue specimen (specimen) (Gallbladder) 09/10/2024 9:51 AM TRACK SERVICE PERSON Narrative PATHOLOGY [facility] ([place]) - 09/11/2024 3:50 PM TRACK SERVICE PERSON EPIC results best viewed via link to PDF [facility] Department of Pathology [address] [place] [address] Note to Patients: This report may contain [...] Report Patient Name: ANTOINETTE DELANEY Address: [address] [place] [address] Gender: F : 1960 (Age: 64) Service: Surgery Location: [facility] Hospital #: [id number] Patient Type: [facility] Taken: 09/10/2024 Received: 09/10/2024 Accessioned: 09/10/2024 [...] the Surgical Pathology Department at [facility] as part of an ongoing senior quality control inspector program and in compliance with federally mandated [...] characteristics determined by the Surgical Pathology Department [facility]. It has not been cleared or approved by the U. S. Food and Drug Administration. Note for decalcified specimens: This assay has not been validated on decalcified tissues. Results should be interpreted with caution given the possibility of false negativity on decalcified specimens us Vignesh Hawkins MD LAB PATHOLOGY OR DERABLES Final Result PATHOLOGY [facility] ([address] [address] * MS AN ELECTIVE ENDOTRACHEAL AIRWAY (09/10/2024 9:36 AM TRACK SERVICE PERSON) Cliff [place] CRNA - 09/10/2024 9:36 AM TRACK SERVICE PERSON Cliff Davis CRNA 09/10/2024 9:37 AM Airway Patient location: OR Urgency: elective Indications for airway management: anesthesia and airway protection Difficult airway: no Staff: Placed by: NURSE PRACTITIONER HOSPITALIST: Cliff Davis CRNA Emergent airway documentation: Risks [...] nal Result * eGFR (09/10/2024 8:47 AM TRACK SERVICE PERSON) eGFR >90 >=60 mL/min/1. 73 m2 Comment: [...] last reviewed 2021. Blood 09/10/2024 8:47 AM TRACK SERVICE PERSON 09/10/2024 8:50 AM TRACK SERVICE PERSON us Vignesh Hawkins MD LAB BLOOD ORDERA BLES Final Result [facility] ([place]) 1 [facility] Department [place] [address] * Differential, auto (09/10/2024 8:47 AM TRACK SERVICE PERSON) Pathologist [facility] Neutrophil abs 5.3 1.5 - 6.5 K/cumm Imm gran abs 0.0 0.0 - 0.1 K/cumm [facility] ([place] Lymphocyte abs 0.8 0.8 - 3.3 K/cumm [facility] ([place]) Monocyte abs 0.6 0.2 - 0.8 K/cumm [facility] ([place]) Eosinophil abs 0.3 0.0 - 0.5 K/cumm [facility] ([place]) Basophil abs 0.1 0.0 - 0.1 K/cumm [facility] ([place]) Neutrophil pct 74.8 % [facility] ([place]) Comment: Interpretive Data Percent cell count reference [...] revised on 2017. Monocyte pct 8.6 % [facility] ([place]) Comment: Interpretive Data [...] revised on 2017. Basophil pct 0.8 % [facility] ([place]) Comment: Interpretive Data Percent cell count reference ranges are not reported, since discordance with absolute values may lead to misinterpretation of CBC data. Current Interpretive Data was last revised on 2017. Blood 09/10/2024 8:47 AM TRACK SERVICE PERSON 09/10/2024 8:50 AM TRACK SERVICE PERSON us Vignesh Hawkins MD LAB BLOOD ORDERA BLES Final Result [facility] ([place]) 1 [facility] Department [place] [address] * (ABNORMAL) CBC with auto differential (09/10/2024 8:47 AM TRACK SERVICE PERSON) WBC 7.1 3.8 - 9.9 K/cumm Hgb 11.7(L) 11.9 - 15.5 g/dL [facility] ([place]) Hct 35.2(L) 35.6 - 45.5 % [...] [facility] ([place]) Blood 09/10/2024 8:47 AM TRACK SERVICE PERSON 09/10/2024 8:50 AM TRACK SERVICE PERSON Vignesh Hawkins MD LAB BLOOD ORDERA BLES Final Result [facility] ([place] 1 [facility] [place] [address] * ABO/Rh (09/10/2024 8:47 AM TRACK SERVICE PERSON) ABO/Rh B Positive Blood 09/10/2024 8:47 AM TRACK SERVICE PERSON 09/10/2024 8:49 AM TRACK SERVICE PERSON Narrative [facility] ([place]) - 09/10/2024 9:11 AM TRACK SERVICE PERSON Has the patient had Daratumumab or Isatuximab in the past 6 months?->Unknown Vignesh Hawkins MD LAB BLOOD BANK T EST ORDERABLES Final Result [facility] ([place]) 1 [facility] [place] [address] * Antibody screen (09/10/2024 8:47 AM TRACK SERVICE PERSON) Lonnie, indirect, Gel Interpretation Negative ABSC Blood 09/10/2024 8:47 AM TRACK SERVICE PERSON 09/10/2024 8:49 AM TRACK SERVICE PERSON Narrative [facility] ([place]) - 09/10/2024 9:25 AM TRACK SERVICE PERSON Has the patient had Daratumumab or Isatuximab in the past 6 months?->Unknown Vignesh Hawkins MD LAB BLOOD BANK T EST ORDERABLES Final Result [facility] ([place]) 1 [facility] Department [place] [address] * (ABNORMAL) Comprehensive metabolic panel (09/10/2024 8:47 AM TRACK SERVICE PERSON) Pathologist [facility] Sodium 133(L) 135 - 145 mmol/L Comment:sandra moreno(AMB SUrg) Potassium, pl 2.9(C) 3.3 - 4.9 mmol/L [facility] ([place]) Comment:Critical Result call ed by [email or web address] at 2024-09-10 09:18:13. Result Read Back by [...] Comment:sandra cisnerosr(AMB SUrg) Blood 09/10/2024 8:47 AM TRACK SERVICE PERSON 09/10/2024 8:50 AM TRACK SERVICE PERSON Vignesh Hawkins MD LAB BLOOD ORDERA BLES Final Result Performing Organization Address City/[facility] Co de Phone Number [facility] ([place]) 1 [facility] [place] [address] * ABO / Rh Confirmation Testing (09/10/2024 8:45 AM TRACK SERVICE PERSON) ABO/Rh Confirmation B Positive [facility] Blood 09/10/2024 8:45 AM TRACK SERVICE PERSON 09/10/2024 9:13 AM TRACK SERVICE PERSON Vignesh Hawkins MD LAB BLOOD ORDERA BLES Final Result Performing Organization Address City/[facility]/ZIP Co de Phone Number [facility] ([place]) 1 [facility] [place] [address] [facility] * Serum Hepatitis C ab (11/01/2014 8:32 AM TRACK SERVICE PERSON) HCV ab Negative NEG HISTORICAL RESULTS Serum 11/01/2014 8:32 AM TRACK SERVICE PERSON Narrative HISTORICAL RESULTS - 11/02/2014 3:46 AM TRACK SERVICE PERSON Interpretive Data If confirmation is required, call Laboratory Customer Service to request sample to be sent to [facility] for Hepatitis C Virus (HCV) RNA Detection and Quantitation by Real-Time Reverse Supervisor Cab-PCR (RT-PCR). Current interpretive data was last revised on 2011 us Fariha Whitley MD LAB BLOOD ORDERABLES Final R esult HISTORICAL RESULTS * DIGITAL MAMMOGRAPHY (12/11/2013 11:01 AM CDT) Anatomical Region Laterality Modality Breast Mammography 12/11/2013 11:0 1 AM CDT Narrative 12/12/2013 12:15 AM CDT Vm Mammogram Performed by: LT Screening Mamm Bi Acc#: [id number] DATE OF EXAM: Dec 11 2013 CLINICAL [...] Performed by: LT Screening Mamm Bi Acc#: [id number] DATE OF EXAM: Dec 11 2013 CLINICAL [...] Advance Directives For more information, please contact: [phone] * Full Code (Latest Code Status on File) Date Activated Date Inactivated Comments 11/22/2023 6:25 PM 11/25/2023 11:09 PM * Full Code Date Activated Date Inactivated Comments 12/21/2022 5:34 PM 12/24/2022 8:16 PM * Full Code Date Activated Date Inactivated Comments 11/10/2022 4:25 PM 11/11/2022 3:51 PM * Full Code Date Activated Date Inactivated Comments 05/04/2022 1:38 PM 05/05/2022 6:47 PM Care Teams Folder Seamer Automatic Relationship Specialty Start Date End Date Mariah Adams MD PCP - General Internal Medicine 08/19/20 Mitchell Zamarripa MD Referring Physician Rheumatology 03/11/22 Brit More NP Nurse Practitioner Cardiovascular Disease 03/11/22 Cliff Ronquillo NP [address] [facility] [address] [place] [address] Nurse Practitioner Nurse Practitioner 05/05/22 Dick Aguilar PA [address] [place] [address] [address] [place] [address] Physician Unmanned Equipment Operator Orthopedic Surgery 11/11/22 Gavin Sewell MD [address] [place] [address] [address] [place] [address] Surgeon Orthopedic Surgery 12/24/22
--- OUTSIDE RECORDS SUMMARY | 2024-12-03 14:51 | XMS_ITS | Clinical Summary ---
Author Organization [facility] Address [address] [place] [address] Phone Care Team Providers Care Rejoiner Name Role Phone Jose Cruz Ledezma Primary Care Provider [phone] Allergies Active Allergy Reactions Criticality Noted Date [...] age to complete this topic Insurance MEDICARE [employer] GENERIC Care Teams Rejoiner Relationship Specialty Start Date End Date Jose Cruz Ledezma PAC [address] [place] [phone] PCP - General Physician Brake Lining Driller 01/28/20
--- OUTSIDE RECORDS SUMMARY | 2024-12-03 14:51 | XMS_ITS | Encounter Summary ---
Author Organization [facility] Address [address] [place] [address] Care Team Providers Care Stopper Grinder Name Role Phone Yg Lee MD Primary Care Provider [phone] Shandra Ruffin APRN-LIFE UNDERWRITER Primary Care Provider Yg Lee MD Primary Care Provider [phone] Shandra Ruffin APRN-[facility] Primary Care Provider Yg Lee MD Primary Care Provider [phone] Shandra Ruffin APRN-[facility] Primary Care Provider Encounter Details Date Type Department Care Team (Late st Contact Info) Description 05/18/2019 Telephone [facility] [address] [place] [address] Mitchell Zamarripa MD [address] [place] [address] [place] [address] Social History Tobacco Use Types [...] a call. [place] Patient Call Back number: [phone]. documented in this encounter Plan of Treatment Not on file documented as of this encounter Visit Diagnoses Not on filedocumented in this encounter Care Teams Stopper Grinder Relationship Specialty Start Date End Date Yg Lee MD [address] [place] [phone] PCP - General 10/28/11 05/23/19 Shandra Ruffin APRN-LIFE UNDERWRITER [address] [place], [place] [phone] PCP - General 05/24/19 07/20/20 Yg Lee MD [address] [place], [place] [phone] PCP - General Internal Medicine 07/21/20 07/21/20 Shandra Ruffin APRN-LIFE UNDERWRITER [address] [place], [place] [phone] PCP - General 07/22/20 11/15/21 Yg Lee MD [address] [place] [phone] PCP - General Internal Medicine 11/16/21 04/01/22 Shandra Ruffin APRN-LIFE UNDERWRITER [address] [place], [place] [phone] PCP - General 04/02/22 documented as of this encounter
== END 2024-12-03 13:02 | disposition home or self-care (01) ==
LOC: ANHBWCIMG 13:03
PROVIDERS: PCP Internal Medicine; Visit Provider Orthopaedic Surgery
DX: S52.351A Displaced comminuted fracture of shaft of radius, right arm, initial encounter for closed fracture (principal); S52.221A Displaced transverse fracture of shaft of right ulna, initial encounter for closed fracture; T84.122A Displacement of internal fixation device of bone of right forearm, initial encounter; X58.XXXA Exposure to other specified factors, initial encounter
CPT/HCPCS: 73110

== ENCOUNTER 2024-12-18 10:00 | Outpatient (CLI) | payer OTHER, SELFPAY ==
--- OUTSIDE RECORDS SUMMARY | 2024-12-18 11:23 | XMS_ITS | Clinical Summary ---
Author Organization [facility] Address [address] [place] [address] Care Team Providers Care Research Assistant Member Name Role Phone Shandra Ruffin Malcolm WISDOM-CRAFT SUPERINTENDENT Primary Care Provider Source Comments [facility],non-owned Affiliates and Associated Physician Practices is amultiple site organization consisting of ambulatory clinics and hospital sitesin [place], [place], [place] and [place]. This disclosure is being madepursuant to the Care Everywhere program and may not contain all information available regarding this patient. Last updated 18.[facility] Allergies Active Allergy Reactions Criticality Noted Date [...] document. Alwaysverify current medications with the patient. calcium-vitamin D (CALTRATE PLUS D) 600-200 MG-UNIT tablet Take 1 Tab by mouth once daily. Active ondansetron, disintegrating, (ZOFRAN ODT) 4 MG tablet Take 4 mg by mouth every 6 hours as needed Active DULoxetine (CYMBALTA) 60 MG capsule Take 1 capsule by mouth once daily 3 08/29/201 9 Active ALPRAZolam (XANAX) 0.25 MG tablet Take 1 tablet by mouth 2 times daily as needed Active Multiple Vitamin (MULTI-VITAMIN) TABS Take 1 tablet by mouth once daily Active ASPIRIN LOW DOSE 81 MG tablet Take 162 mg by mouth once daily 1 Active alendronate (FOSAMAX) 70 MG tablet Take 1 tablet by mouth every 7 days 1 Active carvedilol (COREG) 25 MG tablet Take 25 mg by mouth 2 times daily 1 Active omeprazole (PRILOSEC) 40 MG capsule Take 40 mg by mouth daily before breakfast 2 Active rosuvastatin (CRESTOR) 5 MG tablet Take 5 mg by mouth at bedtime 2 Active famotidine (PEPCID) 20 MG tablet Take 40 mg by mouth 2 Active levothyroxine (Synthroid) 100 MCG tablet Take 1 (one) tablet by mouth once daily 1 Active Cholecalciferol 50 MCG (2000 UT) Take 1 (one) tablet by mouth once daily 2 Active celecoxib (CeleBREX) 100 MG capsule Take 1 (one) capsule by mouth 2 times daily 2 Active amLODIPine (Norvasc) 5 MG tablet Take 1 (one) tablet by mouth once daily 2 Active Active Problems No known active problems Immunizations Immunization Administration Dates Next Due INFLUENZA VACCINE, TRIV. (AF LURIA, FLUZONE TRIVALENT; 6MO+) (IIV3) 06/16/2016,06/11/2015,06/01/2014,2012,06/14/2012,06/01/2011 CovAB Group primary monoval ent 12+ yr 0.3mL [...] Date Recorded PHQ2 TOTAL SCORE 0 08/03/2021 Comments No Sex and Gender Information Value Date Recorded Sex Assigned at Not on file Legal Sex Female 1:04 PM FAMILY ASSISTANT Gender Identity Not on file Sexual [...] FLEX SIG - COLON CA SCREENING 1960 PAP SMEAR 1960 HIV SCREENING 1977 [...] PCV20 or PCV21) 10/20/2025 10/20/2020, 07/18/2017, 06/15/2011 MAMMOGRAM 05/16/2026 05/16/2024, 05/16/2024 Respiratory Syncytial Virus (RSV) Vaccine Pt: or over 60 yrs (1 - 1-dose 75+ series) 2037 INFLUENZA VACCINE Completed 05/29/2024, , 05/29/2022, Additional history exists HEPATITIS B VACCINE Aged Out No longe [...] Comments COMPREHENSIVE METABOLIC PANEL 08/31/2022 9:26 AM FAMILY ASSISTANT from Last 3 Months or Most Recently Relevant to Health Maintenance Results * (ABNORMAL) COMPREHENSIVE METABOLIC PANEL (08/31/2022 9:26 AM FAMILY ASSISTANT) Glucose 105(H) 65 - 99 mg/dL [facility] [...] 29 U/L [facility] Comment: Test Performed at: [facility] [address] [place] [address] LUISA LAWRENCE DO,MPH 08/31/2022 9:26 AM FAMILY ASSISTANT 08/31/2022 9:27 AM FAMILY ASSISTANT us Mitchell Zamarripa MD LAB - CHEMISTRY ORDERABLES Final Result [facility] [id number] [place] [address] from Last 3 Months or Most Recently Relevant to Health Maintenance Insurance [facility] MEDICARE ANTHEM ANTHEM Advance Directives * FULL RESUSCITATION (Latest Code Status on File) Date Activated Date Inactivated Comments 11/08/2011 12:50 PM 11/10/2011 12:21 AM Care Teams Research Assistant Member Relationship Specialty Start Date End Date Shandra Ruffin, AGILE SCRUM COACH-CRAFT SUPERINTENDENT [address] [place] [address] PCP - General 04/02/22
--- OUTSIDE RECORDS SUMMARY | 2024-12-18 11:24 | XMS_ITS ---
Author Organization [facility] Address [address] [place] [address] Phone Care Team Providers Care Staining Machine Operator Name Role Phone JAM MCDONNELL PA-C Primary Care Provider [phone] Plan of Treatment No Plan of Treatment [...] On 07/08/2010 5:57PM By ALVIN BASS ; [facility] Premarin 1.25 MG OR TABS 09/02/2009 - 08/28/2010 Provi anastasia: Diagnosis: Last Documented On 11/11/2009 9:36AM By BONNIE MORALES ; [facility] Premarin 1.25 MG OR TABS 07/23/2008 - 07/18/2009 Provi anastasia: Diagnosis: Last Documented On 11/11/2009 9:37AM By BONNIE MORALES ; [facility] Amoxicillin 500 MG OR TABS 07/03/2007 - 07/13/2007 Pro vider: Diagnosis: Last Documented On 11/11/2009 9:38AM By BONNIE MORALES ; [facility] Premarin 1.25 MG OR TABS 07/05/2006 - 06/30/2007 Provi anastasia: Diagnosis: Last Documented On 11/11/2009 9:39AM By BONNIE MORALES ; [facility] Premarin 1.25 MG OR TABS 08/27/2005 - 07/23/2006 Provi anastasia: Diagnosis: Last Documented On 11/11/2009 9:40AM By BONNIE MORALES ; [facility] Medications Administered Includes: Administered Medications in patient's chart No Administered Medications Recorded Results Includes: Results from 12/19/2023 through 12/18/2024 No Results Recorded For Specified Dates History [...] [facility] Smoking Status Unknown Medical History Includes: Medical History in patient's chart Description Last Updated HYSTERECTOMY ~BTL 11/11/2009 Last Documented On 0 9:43AM ; [facility] 2 living children 11/11/2009 Last Documented On 0 9:43AM ; [facility] A mammogram was performed 11/11/2009 Last Documented On 0 9:43AM ; [facility] A Pap smear was performed 11/11/2009 Last Documented On 0 9:43AM ; [facility] weight: was 7.4 lbs 11/11/2009 Last Documented On 0 9:43AM ; [facility] Breast problems 11/11/2009 Last Documented On 0 9:43AM ; [facility] Delivery date 1983 11/11/2009 Last Documented On 0 9:43AM ; [facility] Duration of labor: was six hr 11/11/2009 Last Documented On 0 9:43AM ; [facility] Gestational age: was 40 weeks 11/11/2009 Last Documented On 0 9:43AM ; [facility] 2 11/11/2009 Last Documented On 0 9:43AM ; [facility] History of the 2nd : 11/11/2009 Last Documented On 0 9:43AM ; [facility] Last mammogram date: 07/19/08 11/11/2009 Last Documented On 0 9:43AM ; [facility] Last pap smear date 200711/11/2009 Last Documented On 0 9:43AM ; [facility] Oral contraceptives 11/11/2009 Last Documented On 0 9:43AM ; [facility] Status post tubal ligation 11/11/2009 Last Documented On 0 9:43AM ; [facility] Family History Includes: Family History in patient's chart Description Last Updated Family history of Cancer 11/11/2009 Last Documented On 0 9:43AM ; [facility] Family history of thyroid disease 2009 Last Documented On 0 9:43AM ; [facility] Family medical history of high blood pre ssure 11/11/2009 Last Documented On 0 9:43AM ; [facility] Review of Systems Review of Systems not supported for this document type No Review of Systems Recorded Mental Status No Mental Status Recorded Functional Status No Functional Status Recorded Physical Exam Physical Exam not supported for this document type No Physical Exam Recorded Allergies Includes: Active, inactive, and resolved Allergies No Known Allergies Insurance Includes: Active Insurance Policies Plan Name Member ID Group # Subscriber Relationship Effect cyn Dates 1 - [employer] MEDIC[employer] ADVANTAGE [id number] NIGHAT Guevara Clinical Notes Includes: Signed Clinical Notes starting from 09/17/2022 No Clinical Notes Recorded
--- OUTSIDE RECORDS SUMMARY | 2024-12-18 11:24 | XMS_ITS | Referral Summary ---
Author Organization [facility] Address [address] [place] [address] Care Team Providers Care Full Time Staff Interpreter Name Role Phone Mariah Adams MD Primary Care Provider + Mitchell Zamarripa MD Unavailable [phone] Brit More ENTRY TABLE OPERATOR Unavailable [phone] Cliff Ronquillo NP Unavailable [phone] Dick Aguilar Unavailable [phone] Gavin Sewell MD Unavailable [phone] Encounters Date Type Department Care Team Description 12/12/2024 2:52 PM CDT - 12/12/2024 11:59 PM CDT Hospital Encounter [address] [address] Pulmonary nodules Discharge Disposition: Discharge to home or self care 12/11/[address] [address] Zan Wagner from Last 3 Months Allergies Active Allergy [...] 1 tablet (100 mcg total) by mouth fire ranger before breakfast 1 Active celecoxib (CeleBREX) 100 [...] 08/14/2024 Assessment & Plan (08/14/2024 9:48 AM CERTIFIED PATHOLOGY ASSISTANT): The patient likely has chronic cholecystitis given [...] (04/23/2022): Added automatically from request for surgery [id number] Posterior tibial tendon dysfunction 03/02/2022 Flat foot [...] 01/04/2018 Assessment & Plan (09/19/2018 1:30 PM CERTIFIED PATHOLOGY ASSISTANT): Low disease activity today on exam. Take [...] How often do you attend chur or restorationist services? Never 12/23/2022 Do you belong to any clubs o r organizations such as mormon groups, unions, fraternal or athletic groups, or [...] should administer the PHQ-9) 0 11/23/2023 [facility] - Occupational Stress Questionnaire Answer Date Recorded [...] place to sleep or slept in a prison (including now)? No 12/23/2022 Personal Safety Answer Date Recorded Have you ever been in or are you currently in a harmful physical or emotional relationship or is someone making you feel afraid or unsafe? Denies 09/10/2024 Comments No Sex and Gender Information Value Date Recorded Sex Assigned at Not on file Legal Sex Female 11:50 PM CERTIFIED PATHOLOGY ASSISTANT Gender Identity Not on file Sexual Orientation Not on file Last Filed Vital Signs Vital Sign Reading Time Taken Comments Blood Pressure 119/69 09/10/2024 2:00 PM CERTIFIED PATHOLOGY ASSISTANT Pulse 69 09/10/2024 2:00 PM CERTIFIED PATHOLOGY ASSISTANT Temperature 36.4 C (97.6 F) 09/10/2024 2:00 PM CERTIFIED PATHOLOGY ASSISTANT Respiratory Rate 16 09/10/2024 2:00 PM CERTIFIED PATHOLOGY ASSISTANT Oxygen Saturation 94% 09/10/2024 2:00 PM CERTIFIED PATHOLOGY ASSISTANT Inhaled Oxygen Concentration - - Weight 67.6 kg (149 lb 0.5 oz) 09/10/2024 8:15 A M CERTIFIED PATHOLOGY ASSISTANT Height 154.9 cm (5' 1 ) 09/10/2024 8:15 AM CERTIFIED PATHOLOGY ASSISTANT Body Mass Index 28.16 09/10/2024 8:15 AM CERTIFIED PATHOLOGY ASSISTANT Plan of Treatment Not on file Medical Devices Implanted Type Area Cardiopulmonary Physical Therapist Device Identifier Shelf Expiration Date Model / Serial / Lot Exactech Restrictor Cement Cemex Small Od13mm Tpa-13 - [id number] Implanted:Qty: 1 on 05/04/2022 by Gavin Sewell MD at [facility] Left: Shoulder Ex[employer]ech 08/28/2023 TPA-13 / / [id number] Exactech Equinoxe Reverse Shoulder +0mm Tray Humeral Adapter 32000 - [id number] - [id number] Implanted:Qty: 1 on 05/04/2022 by Gavin Sewell MD at [facility] Ex[employer]ech [id number] 04/07/2032 32010-00 / [id number] / Exactech Equinoxe 40mm Small Reverse Constrain Shoulder +2.5mm Liner 320-40-13 - [id number] - [id number] Implanted:Qty: 1 on 05/04/2022 by Gavin Sewell MD at [facility] Ex[employer]ech 01/31/2024 320-40-13 / [id number] / Exactech Equinoxe Lock Reverse Shoulder Glenosphere Screw Bone 320-15- - [id number] - [id number] Implanted:Qty: 1 on 05/04/2022 by Gavin Sewell MD at [facility] Left: Shoulder Ex[employer]ech 03/09/2027 320-15-05 / [id number] / Exactech Reverse Torque Define Shoulder Kit Screw 320-20-00 - [id number] - [id number] Implanted:Qty: 1 on 05/04/2022 by Gavin Sewell MD at [facility] Left: Shoulder [employer]ech 02/03/2027 320-20-00 / [id number] / Exactech Equinoxe Small Reverse Superior Posterior Augment Shoulder Left 320-35-07 - [id number] - [id number] Implanted:Qty: 1 on 05/04/2022 by Gavin Sewell MD at [facility] Left: Shoulder [employer] [id number] 04/08/2031 320-35-07 / [id number] / Exactech Equinoxe 10mm Stem Humeral Sterile 300-09-07 - [id number] - [id number] Implanted:Qty: 1 on 05/04/2022 by Gavin Sewell MD at [facility] Left: Shoulder Ex[employer]ech [id number] 09/07/2031 300-- / [id number] / [employer] Cement Bone Simplex Gentamicin High Viscosity 40gm 6195-1-001 - [id number] Implanted:Qty: 1 on 05/04/2022 by Gavin Sewell MD at [facility] Left: Shoulder [employer] 09/28/2023 6195-1-001 / / [id number] Exactech Equinoxe 40mm 24.3mm Small Reverse Shoulder Sphere Glenoid 320-31-40 - [id number] - [id number] Implanted:Qty: 1 on 05/04/2022 by Gavin Sewell MD at [facility] Left: Shoulder [employer]ech [id number] 12/11/2030 320-31-40 / [id number] / Exactech Equinoxe 4.5mm 38mm Kit Compression Lock Cap Reverse Shoulder 320-20-38 - [id number] - [id number] Implanted:Qty: 1 on 05/04/2022 by Gavin Sewell MD at [facility] Left: Shoulder [employer] [id number] 01/12/2027 320-20-38 / [id number] / Exactech Equinoxe 4.5mm 34mm Kit Compression Lock Cap Reverse Shoulder 320-20-34 - [id number] - [id number] Implanted:Qty: 1 on 05/04/2022 by Gavin Sewell MD at [facility] Left: Shoulder Ex[employer]ech [id number] 07/14/2026 320-20-34 / [id number] / [employer] Insert Tibial Knee Fixed Lm Posterior Stabilized Attune 7mm Size 5 Polyethylene [id number] - [id number] Implanted:Qty: 1 on 11/10/2022 by Gavin Sewell MD at [facility] Left: Knee [employer] 07/28/2030 [id number] / / [id number] [employer] Attune Cruciate Retain Cementless Knee Left 5 Component Femoral [id number] - [id number] Implanted:Qty: 1 on 11/10/2022 by Gavin Sewell MD at [facility] Left: Knee [employer] 04/28/2032 [id number] / / [id number] [employer] Attune Fb Tib Base Sz 5 Por [id number] - [id number] Implanted:Qty: 1 on 11/10/2022 by Gavin Sewell MD at [facility] Left: Knee [employer] 03/28/2032 [id number] / / [id number] Procedures Procedure Name Priority Date/Time Associated Diagnosis Comments SERUM HEPATITIS C AB Routine 11/01/2014 8:32 AM CERTIFIED PATHOLOGY ASSISTANT DIGITAL MAMMOGRAPHY Routine 12/11/2013 1 1:01 AM CDT from Last 3 Months or Most Recently Relevant to Health Maintenance Results * Serum Hepatitis C ab (11/01/2014 8:32 AM CERTIFIED PATHOLOGY ASSISTANT) HCV ab Negative NEG HISTORICAL RESULTS Serum 11/01/2014 8:32 AM CERTIFIED PATHOLOGY ASSISTANT Narrative HISTORICAL RESULTS - 11/02/2014 3:46 AM CERTIFIED PATHOLOGY ASSISTANT Interpretive Data If confirmation is required, call Laboratory Customer Service to request sample to be sent to [facility] for Hepatitis C Virus (HCV) RNA Detection and Quantitation by Real-Time Reverse Kitchen Worker-PCR (RT-PCR). Current interpretive data was last revised on 2011 us Fariha Whitley MD LAB BLOOD ORDERABLES Final R esult HISTORICAL RESULTS * DIGITAL MAMMOGRAPHY (12/11/2013 11:01 AM CDT) Anatomical Region Laterality Modality Breast Mammography 12/11/2013 11:0 1 AM CDT Narrative 12/12/2013 12:15 AM CDT Vm Mammogram Performed by: LT Screening Mamm Bi Acc#: [id number] DATE OF EXAM: Dec 11 2013 CLINICAL [...] Performed by: LT Screening Mamm Bi Acc#: [id number] DATE OF EXAM: Dec 11 2013 CLINICAL [...] Advance Directives For more information, please contact: [phone] * Full Code (Latest Code Status on File) Date Activated Date Inactivated Comments 11/22/2023 6:25 PM 11/25/2023 11:09 PM * Full Code Date Activated Date Inactivated Comments 12/21/2022 5:34 PM 12/24/2022 8:16 PM * Full Code Date Activated Date Inactivated Comments 11/10/2022 4:25 PM 11/11/2022 3:51 PM * Full Code Date Activated Date Inactivated Comments 05/04/2022 1:38 PM 05/05/2022 6:47 PM Care Teams Full Time Staff Interpreter Relationship Specialty Start Date End Date Mariah Adams MD PCP - General Internal Medicine 08/19/20 Mitchell Zamarripa MD Referring Physician Rheumatology 03/11/22 Brit More NP Nurse Practitioner Cardiovascular Disease 03/11/22 Cliff Ronquillo NP [address] [place] [address] [place] [address] Nurse Practitioner Nurse Practitioner 05/05/22 Dick Aguilar PA [address] [place] [address] [place] [address] Physician Research Affiliate Orthopedic Surgery 11/11/22 Gavin Sewell MD [address] [place] [address] [place] [address] Surgeon Orthopedic Surgery 12/24/22
--- OUTSIDE RECORDS SUMMARY | 2024-12-18 11:24 | XMS_ITS ---
Care Plan - [facility] Created on: December 18, 2024 NIGHAT DELANEY : 1960 Sex: Female Author Organization [facility] Address [address] [place] [address] Phone Care Team Providers Care Development Expert Name Role Phone JAM MCDONNELL PA-C Primary Care Provider [phone]
--- OUTSIDE RECORDS SUMMARY | 2024-12-18 11:24 | XMS_ITS | Clinical Summary ---
Author Organization [facility] Address [address] [place] [address] Care Team Providers Care It Infrastructure Consultant Name Role Phone Mariah Adams MD Primary Care Provider + Mitchell Zamarripa MD Unavailable [phone] Brit More NP Unavailable [phone] Cliff Ronquillo NP Unavailable Dick Aguilar Unavailable [phone] Gavin Sewell MD Unavailable [phone] Allergies Active Allergy Reactions Criticality Noted Date [...] 1 tablet (100 mcg total) by mouth bus mechanic before breakfast 1 Active celecoxib (CeleBREX) 100 [...] 08/14/2024 Assessment & Plan (08/14/2024 9:48 AM FOOD SCIENCE PROFESSOR): The patient likely has chronic cholecystitis given [...] (04/23/2022): Added automatically from request for surgery [id number] Posterior tibial tendon dysfunction 03/02/2022 Flat foot [...] 01/04/2018 Assessment & Plan (09/19/2018 1:30 PM FOOD SCIENCE PROFESSOR): Low disease activity today on exam. Take [...] - 12/12/2024 11:59 PM CDT Hospital Encounter [facility] [address] [place] [address] Pulmonary nodules Discharge Disposition: Discharge to home or self care 12/11/2024 Telephone [facility] [address] [place] [address] Zan Wagner from Last 3 Months Immunizations Immunization Administration [...] often do you attend chur ch or alevism services? Never 12/23/2022 Do you belong to any clubs o r organizations such as cheondoism groups, unions, fraternal or athletic groups, or [...] PHQ-9) 0 11/23/2023 [facility]ational [facility] Questionnaire Answer Date Recorded [...] on file Legal Sex Female 11:50 PM FOOD SCIENCE PROFESSOR Gender Identity Not on file Sexual Orientation Not on file Obstetrics History Last Filed Vital Signs Vital Sign Reading Time Taken Comments Blood Pressure 119/69 09/10/2024 2:00 PM FOOD SCIENCE PROFESSOR Pulse 69 09/10/2024 2:00 PM FOOD SCIENCE PROFESSOR Temperature 36.4 C (97.6 F) 09/10/2024 2:00 PM FOOD SCIENCE PROFESSOR Respiratory Rate 16 09/10/2024 2:00 PM FOOD SCIENCE PROFESSOR Oxygen Saturation 94% 09/10/2024 2:00 PM FOOD SCIENCE PROFESSOR Inhaled Oxygen Concentration - - Weight 67.6 kg (149 lb 0.5 oz) 09/10/2024 8:15 A M FOOD SCIENCE PROFESSOR Height 154.9 cm (5' 1 ) 09/10/2024 8:15 AM FOOD SCIENCE PROFESSOR Body Mass Index 28.16 09/10/2024 8:15 AM FOOD SCIENCE PROFESSOR Plan of Treatment Health Maintenance Due Date [...] 07/18/2017, 06/15/2011 Hepatitis C Screening Completed 11/01/2014 Influenza Vaccine Completed 05/29/2024, , 05/29/2022, Additional history exists Medical Devices Implanted Type Area French Tutor Device Identifier Shelf Expiration Date Model / Serial / Lot Exactech Restrictor Cement Cemex Small Od13mm Tpa-13 - [id number] Implanted:Qty: 1 on 05/04/2022 by Gavin Sewell MD at [facility] Left: Shoulder [employer]ech 08/28/2023 TPA-13 / / [id number] Exactech Equinoxe Reverse Shoulder +0mm Tray Humeral Adapter 320-10-00 - [id number] - [id number] Implanted:Qty: 1 on 05/04/2022 by Gavin Sewell MD at [facility] [id number] 04/07/2032 320-10-00 / [id number] / Exactech Equinoxe 40mm Small Reverse Constrain Shoulder +2.5mm Liner 320-40-13 - [id number] - [id number] Implanted:Qty: 1 on 05/04/2022 by Gavin Sewell MD at [facility] 01/31/2024 320-40-13 / [id number] / Exactech Equinoxe Lock Reverse Shoulder Glenosphere Screw Bone 320-15-05 - [id number] - [id number] Implanted:Qty: 1 on 05/04/2022 by Gavin Sewell MD at [facility] Left: Shoulder [employer]ech 03/09/2027 320-15-05 / [id number] / Exactech Reverse Torque Define Shoulder Kit Screw 320-20-00 - [id number] - [id number] Implanted:Qty: 1 on 05/04/2022 by Gavin Sewell MD at [facility] Left: Shoulder [employer] 02/03/2027 320-20- / [id number] / Exactech Equinoxe Small Reverse Superior Posterior Augment Shoulder Left 320-35-07 - [id number] - [id number] Implanted:Qty: 1 on 05/04/2022 by Gavin Sewell MD at [facility] Left: Shoulder [employer]ech [id number] 04/08/2031 320-35- / [id number] / Exactech Equinoxe 10mm Stem Humeral Sterile 300--10 - [id number] - [id number] Implanted:Qty: 1 on 05/04/2022 by Gavin Sewell MD at [facility] Left: Shoulder [employer]ech [id number] 09/07/2031 300-- / [id number] / [employer] Cement Bone Simplex Gentamicin High Viscosity 40gm 6195-1-001 - [id number] Implanted:Qty: 1 on 05/04/2022 by Gavin Sewell MD at [facility] Left: Shoulder [employer] 09/28/2023 6195-1-001 / / [id number] Exactech Equinoxe 40mm 24.3mm Small Reverse Shoulder Sphere Glenoid 320-31-40 - [id number] - [id number] Implanted:Qty: 1 on 05/04/2022 by Gavin Sewell MD at [facility] Left: Shoulder [employer] [id number] 12/11/2030 320-31-40 / [id number] / Ex[employer]ech Equinoxe 4.5mm 38mm Kit Compression Lock Cap Reverse Shoulder 320-20-38 - [id number] - [id number] Implanted:Qty: 1 on 05/04/2022 by Gavin Sewell MD at [facility] Left: Shoulder [employer] [id number] 01/12/2027 320-20-38 / [id number] / Exactech Equinoxe 4.5mm 34mm Kit Compression Lock Cap Reverse Shoulder 320-20-34 - [id number] - [id number] Implanted:Qty: 1 on 05/04/2022 by Gavin Sewell MD at [facility] Left: Shoulder Ex[employer]ech [id number] 07/14/2026 320-20-34 / [id number] / [employer] Insert Tibial Knee Fixed Lm Posterior Stabilized Attune 7mm Size 5 Polyethylene [id number] - [id number] Implanted:Qty: 1 on 11/10/2022 by Gavin Sewell MD at [facility] Left: Knee [employer] 07/28/2030 [id number] / / [id number] [employer] Attune Cruciate Retain Cementless Knee Left 5 Component Femoral [id number] - [id number] Implanted:Qty: 1 on 11/10/2022 by Gavin Sewell MD at [facility] Left: Knee [employer] 04/28/2032 [id number] / / [id number] [employer] Attune Fb Tib Base Sz 5 Por [id number] - [id number] Implanted:Qty: 1 on 11/10/2022 by Gavin Sewell MD at [facility] Left: Knee [employer] 03/28/2032 [id number] / / [id number] Procedures Procedure Name Priority Date/Time Associated Diagnosis Comments SERUM HEPATITIS C AB Routine 11/01/2014 8:32 AM FOOD SCIENCE PROFESSOR DIGITAL MAMMOGRAPHY Routine 12/11/2013 1 1:01 AM CDT from Last 3 Months or Most Recently Relevant to Health Maintenance Results * Serum Hepatitis C ab (11/01/2014 8:32 AM FOOD SCIENCE PROFESSOR) HCV ab Negative NEG HISTORICAL RESULTS Serum 11/01/2014 8:32 AM FOOD SCIENCE PROFESSOR Narrative HISTORICAL RESULTS - 11/02/2014 3:46 AM FOOD SCIENCE PROFESSOR Interpretive Data If confirmation is required, call Laboratory Customer Service to request sample to be sent to [facility] for Hepatitis C Virus (HCV) RNA Detection and Quantitation by Real-Time Reverse Manager Managed Backup Services-PCR (RT-PCR). Current interpretive data was last revised on 2011 us Fariha Whitley MD LAB BLOOD ORDERABLES Final R esult HISTORICAL RESULTS * DIGITAL MAMMOGRAPHY (12/11/2013 11:01 AM CDT) Anatomical Region Laterality Modality Breast Mammography 12/11/2013 11:0 1 AM CDT Narrative 12/12/2013 12:15 AM CDT Vm Mammogram Performed by: LT Screening Mamm Bi Acc#: [id number] DATE OF EXAM: Dec 11 2013 CLINICAL [...] Performed by: LT Screening Mamm Bi Acc#: [id number] DATE OF EXAM: Dec 11 2013 CLINICAL [...] DR MARIAH ADAMS Attending DR: MARIAH ADAMS us Historical Provider MD MAYBERRY MAMMO PROCEDURES Kristal l Result from Last 3 Months or Most Recently Relevant to Health Maintenance Insurance [employer] [place]ICARE [place] [employer] PPO Advance Directives For more information, please contact: [phone] * Full Code (Latest Code Status on File) Date Activated Date Inactivated Comments 11/22/2023 6:25 PM 11/25/2023 11:09 PM * Full Code Date Activated Date Inactivated Comments 12/21/2022 5:34 PM 12/24/2022 8:16 PM * Full Code Date Activated Date Inactivated Comments 11/10/2022 4:25 PM 11/11/2022 3:51 PM * Full Code Date Activated Date Inactivated Comments 05/04/2022 1:38 PM 05/05/2022 6:47 PM Care Teams It Infrastructure Consultant Relationship Specialty Start Date End Date Mariah Adams MD PCP - General Internal Medicine 08/19/20 Mitchell Zamarripa MD Referring Physician Rheumatology 03/11/22 Brit More NP Nurse Practitioner Cardiovascular Disease 03/11/22 Cliff Ronquillo NP [address] [place] [address] [address] [place] [address] Nurse Practitioner Nurse Practitioner 05/05/22 Dick Aguilar PA [address] [place] [address] [address] [place] [address] Physician Sales Team Member Orthopedic Surgery 11/11/22 Gavin Sewell MD [address] [place] [address] [address] [place] [address] (work) Surgeon Orthopedic Surgery 12/24/22
--- OUTSIDE RECORDS SUMMARY | 2024-12-18 11:24 | XMS_ITS | Encounter Summary ---
Author Organization [facility] Address [address] [place] [address] Care Team Providers Care Apiculture Teacher Name Role Phone Yg Lee MD Primary Care Provider [phone] Reason for Visit * Reason Comments Med Refill Encounter Details Date Type Department Care Team ([facility] st Contact Info) Description 12/18/[address] [facility] Primary Care [address] [place] [address] Yg Lee MD [address] [facility] [address] [place] [address] Essential hypertension, benign Social History Tobacco Use Types Packs/Day Years [...] on file Legal Sex Female 6:04 AM SURGICAL LEAD Gender Identity Not on file Sexual Orientation Not on file Occupation Industry Job Start Date Job End Date Not on file Not on file Not on file Not on file documented as of this encounter Miscellaneous Notes * Telephone Encounter - Carolina Trimble LPN - 12/18/2024 9:18 AM CDT Recent Visits Date Type Provider Dept 12/04/24 Office Visit [facility] 04/05/24 Office Visit Yg [facility] 12/01/23 Office Visit Yg Lee [facility] 08/26/23 Office Visit Yg Lee MD [facility] Showing recent visits within past 540 days with a meds authorizing provider and meeting all other requirements Future Appointments No visits were found meeting these conditions. Showing future appointments within next 150 days with a meds authorizing provider and meeting all other requirements documented in this encounter Plan of Treatment Upcoming Encounters Date Type Department Care Team (Late st Contact Info) Description 06/17/2025 11:20 AM CDT Office Visit [address] [place] [address] Yg Lee MD [address] [place] [address] [address] [place] [id number] documented as of this encounter Visit Diagnoses Diagnosis Essential hypertension, benign documented in this encounter Care Teams Apiculture Teacher Relationship Specialty Start Date End Date Yg Lee MD PCP - General Internal Medicine 12/20/18 documented as of this encounter
--- OUTSIDE RECORDS SUMMARY | 2024-12-18 11:24 | XMS_ITS | Data Portability ---
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 Plan of Treatment Reminders Order Date Submit Date Provider Last Modified By Organization Details Last Modified Time Details Appointments None recorde d. Lab PTH (parath yroid hormone ), intact + calcium , serum or plasma 2019 020 bbertoglioma [facility], [address] [place] [address], [address], [place], [address], 0 18:10:55 unliste d lab - complia nce drug analysi s, ur 2019 020 REUBEN [facility], [address] [place] [address], [address], [place], [address], 0 15:09:11 PTH (parath yroid hormone ), intact + calcium , serum or plasma 2019 020 hspraggs [facility], [address] [facility], [address], [place], [address], 0 15:26:23 Referral orthope dic referra l 2019 020 [facility] Orthopedics, [address] [facility], [place], [address], 0 14:14:57 oncolog ist referra l - ANABEL 2019 020 ssaterri Rivero MD, [address] [facility] , [address], [place], [address], 0 11:06:22 dermato logist referra l 2019 [email or web address] Not available 0 14:26:11 Procedures None recorde d. Surgeries None recorde d. Imaging NM, bone scan 2019 020 bbertoglioma [facility] (Radiology), [address] [facility] , [place], [address], 0 15:52:19 CT, lower leg, w/ contras t 2019 020 [facility] (Scheduling), [address] [facility], [place], [address], 0 15:02:33 XR, lumbar spine 2019 020 REUBEN [facility]uling, [address] [facility], [place], [address], 0 14:17:01 Medication Orders calcito marlo (salmon ) 200 unit/ac tuation nasal spray 2019 020 INTERFACE [facility][id number], [address], [place], [place], [id number], 0 15:02:19 acetami nophen 300 mg-code ine 30 mg tablet 2019 020 dturnerma [facility] #[id number], [address], [place], [place], [id number], 1 17:09:49 gabapen tin 100 mg capsule 2019 020 INTERFACE [facility] #[id number], [address], [place], [place], [id number], 0 12:02:47 Patient TargetsNo targets recorded. Patient Instructions Encounter Date Encounter Id Patient Instructions Last Modified By Organization Details Last Modified Time 01/30/2020 [id number] osteoporosis: care instructions jnanney Not available 01/30/2020 15:02:14 Reason for Referral Video Journalist Referral for C omplaining of a rash Referring Physician: Jam Ledezma [facility], Encounter Date: 02/20/2020 ANABEL Referring Physician: Jam Ledezma [facility], Encounter Date: 02/20/2020 Orthopedic Referral for Path ological fracture of right tibia Referring Physician: Jam Ledezma [facility], Encounter Date: 04/22/2020 Results Created Date Observation Date Name Description Value Unit Range Abnormal Flag Note LastModifiedBy Organization Detail LastModifiedTime 12/27/19 20 12/28/2019 CMP, serum or plasm a glucose 91 mg/dL 65-99 Not Available [facility] ([facility]) [address] [place], [address], 12/28/2019 07:08:47 12/27/1912/28/2019 CMP, serum or plasm a BUN 15 mg/dL 6-24 Not Available [facility] ([facility]) [address] [place], [address], 12/28/2019 07:08:47 12/27/1912/28/2019 CMP, serum or plasm a creatinine 0.80 mg/dL 0.57-1 .00 Not Available [facility] ([facility]) [address] [place], [address], 12/28/2019 07:08:47 12/27/1912/28/2019 CMP, serum or plasm a eGFR if nonafricn AM 82 mL/mi n/1.7 3 >59 Not Available [facility] ([facility]) [address] [place], [address], 12/28/2019 07:08:47 12/27/1912/2712/28/2019 CMP, serum or plasm a eGFR if africn AM 95 mL/mi n/1.7 3 >59 Not Available [facility] ([facility]) [address] [place], [address], 12/28/2019 07:08:47 12/27/19 20 12/28/2019 CMP, serum or plasm a BUN/creatini ne ratio 19 9-23 Not Available [facility] ([facility]) [address] [place], [address], 12/28/2019 07:08:47 12/27/1912/28/2019 CMP, serum or plasm a sodium 138 mmol/ L 134-14 4 Not Available [facility] ([facility]) [address] [place], [address], 12/28/2019 07:08:47 12/27/19 20 12/28/2019 CMP, serum or plasm a potassium 4.2 mmol/ L 3.5-5. 2 Not Available [facility] ([facility]) [address] [place], [address], 12/28/2019 07:08:47 12/27/19 20 12/28/2019 CMP, serum or plasm a chloride 98 mmol/ L 96-106 Not Available [facility] ([facility]) [address] [place], [address], 12/28/2019 07:08:47 12/27/1912/28/2019 CMP, serum or plasm a carbon dioxide, total 23 mmol/ L 20-29 Not Available [facility] ([facility]) [address] [place], [address], 12/28/2019 07:08:47 12/27/1912/28/2019 CMP, serum or plasm a calcium 10.1 mg/dL 8.7-10 .2 Not Available [facility] ([place]) [address] [place], [address], 12/28/2019 07:08:47 12/27/19 20 12/28/2019 CMP, serum or plasm a protein, total 7.3 g/dL 6.0-8. 5 Not Available [facility] ([facility]) [address] [place], [address], 12/28/2019 07:08:47 12/27/1912/28/2019 CMP, serum or plasm a albumin 4.8 g/dL 3.8-4. 9 Not Available [facility] ([facility]) [address] [place], [address], 12/28/2019 07:08:47 12/27/1912/28/2019 CMP, serum or plasm a globulin, total 2.5 g/dL 1.5-4. 5 Not Available [facility] ([facility]) [address] [place], [address], 12/28/2019 07:08:47 12/27/1912/28/2019 CMP, serum or plasm a A/G ratio 1.9 1.2-2. 2 Not Available [facility] ([facility]) [address] [place], [address], 12/28/2019 07:08:47 12/27/1912/28/2019 CMP, serum or plasm a bilirubin, total 0.4 mg/dL 0.0-1. 2 Not Available [facility] ([facility]) [address] [place], [address], 12/28/2019 07:08:47 12/27/1912/28/2019 CMP, serum or plasm a alkaline phosphatase 114 IU/L 39-117 Not Available [facility]) [address] [place], [address], 12/28/2019 07:08:47 12/27/1912/28/2019 CMP, serum or plasm a AST (SGOT) 40 IU/L 0-40 Not Available [facility] ([facility]) [address], [place], [address], 12/28/2019 07:08:47 12/27/1912/28/2019 CMP, serum or plasm a ALT (SGPT) 29 IU/L 0-32 Not Available [facility] ([facility]) [address], [place], [address], 12/28/2019 07:08:47 12/27/19 20 12/28/2019 vitam in D, 25-hy droxy , total , serum vitamin D, 25-hydroxy 34.2 NG/mL 30.0-1 00.0 Vitam in D defic iency has been defin ed by the Insti [facility] of [facility] ine and an Endoc rine Socie ty pract ice guide line as a level of serum 25-OH vitam in D less than 20 ng/mL (1,2) . The Endoc rine Socie ty went on to furth er defin e vitam in D insuf ficie ncy as a level betwe en 21 and 29 ng/mL (2). 1. IOM ([facility] it[facility] ine). 2010. Melany ry refer ence kristina es for calci um and D. Zackary baum [place]: [facility] Press . 2. Patricia valdez MF, Jluis albert [place], [place] off-F errar i GARCIA, et al. Evalu ation , treat ment, and preve ntion of vitam in D defic iency : an Endoc rine Socie ty clini tessie pract ice guide line. JCEM. 2010; 96(7) :1911 -30. Not Available [facility] ([facility]) [address], [place], [address], 12/28/2019 07:08:48 02/11/2002/19/2020 drug scree n, urine [...] [place] [address] EXPEC JALYN ng/mg creat Morph ine 1924 EXPEC JALYN ng/mg creat Normo rphin e 572 EXPEC JALYN ng/mg creat Rainbow deine 1659 EXPEC JALYN ng/mg creat Sourc [...] expec jalyn metab olite of morph ine. Rainbow deine is an expec jalyn metab olite [...] Clobe tasol Ezeti mibe Fluti kelsie e [place] chlor othia zide (Samantha nopri l-HCT Z) [place] xychl oroqu ine Levot hyrox ine Lisin [...] ===== ===== ===== ===== === Not Available [facility] [address] [facility], [place], [address], 02/19/2020 15:09:11 02/11/20 20 02/19/2020 drug scree n, urine pdf . Not Available [facility] [address] [facility], [place], [address], 02/19/2020 15:09:11 04/28/20 20 04/28/2020 PTH (para [...] < 8.6 Not Available [facility] ([facility]) [address] [place], [address], 04/29/2020 17:08:21 04/28/20 20 04/29/2020 PTH (para thyro id hormo ne), intac t + calci um, serum or plasm a calcium TNP mg/dL No serum gel recei dillon. Not Available [facility] ([facility]) [address] [place], [address], 04/29/2020 17:08:21 04/28/20 20 04/29/2020 PTH (para thyro id hormo ne), intac t + calci um, serum or plasm a PTH, intact 63 pg/mL 15-65 Not Available [facility] ([facility]) [address] [place], [address], 04/29/2020 17:08:21 04/28/20 20 04/29/2020 speci men statu s repor t specimen status report TNP No serum gel recei dillon. TEST: 50909 6 Calci um Panel : 25426 1 Not Available [facility] ([facility]) [address] [place], [address], 04/29/2020 17:08:22 04/30/2005/01/2020 TSH + free T4, serum TSH 4.230 uIU/m L 0.450- 4.500 Not Available [facility] ([facility]) [address] [place], [address], 05/01/2020 08:17:01 04/30/2005/01/2020 TSH + free T4, serum T4,free(dire ct) 1.18 NG/dL 0.82-1 .77 Not Available [facility] ([facility]) [address] [place], [address], 05/01/2020 08:17:01 04/30/2005/01/2020 CBC w/ auto diff WBC 5.2 x10e3 /uL 3.4-10 .8 Not Available [facility] ([facility]) [address], [place], [address], 05/01/2020 08:17:02 04/30/2005/01/2020 CBC w/ auto diff RBC 4.16 x10e6 /uL 3.77-5 .28 Not Available [facility] ([facility]) [address], [place], [address], 05/01/2020 08:17:02 04/30/2005/01/2020 CBC w/ auto diff hemoglobin 13.9 g/dL 11.1-1 5.9 Not Available [facility] ([facility]) [address], [place], [address], 05/01/2020 08:17:02 04/30/2005/01/2020 CBC w/ auto diff hematocrit 39.7 % 34.0-4 6.6 Not Available [facility] ([facility]) [address], [place], [address], 05/01/2020 08:17:02 04/30/2005/01/2020 CBC w/ auto diff MCV 95 fL 79-97 Not Available [facility] ([facility]) [address] [place], [address], 05/01/2020 08:17:02 04/30/2005/01/2020 CBC w/ auto diff MCH 33.4 pg 26.6-3 3.0 above high normal Not Available [facility] ([facility]) [address] [place], [address], 05/01/2020 08:17:02 04/30/2005/01/2020 CBC w/ auto diff MCHC 35.0 g/dL 31.5-3 5.7 Not Available [facility] ([facility]) [address], [place], [address], 05/01/2020 08:17:02 04/30/2005/01/2020 CBC w/ auto diff RDW 13.4 % 11.7-1 5.4 Not Available [facility] ([facility]) [address], [place], [address], 05/01/2020 08:17:02 04/30/2005/01/2020 CBC w/ auto diff platelets 296 x10e3 /uL 150-45 0 Not Available [facility] ([facility]) [address], [place], [address], 05/01/2020 08:17:02 04/30/2005/01/2020 CBC w/ auto diff neutrophils 72 % not estab. Not Available [facility] ([facility]) [address], [place], [address], 05/01/2020 08:17:02 04/30/2005/01/2020 CBC w/ auto diff lymphs 14 % not estab. Not Available [facility] ([facility]) [address], [place], [address], 05/01/2020 08:17:02 04/30/2005/01/2020 CBC w/ auto diff monocytes 7 % not estab. Not Available [facility] ([facility]) [address], [place], [address], 05/01/2020 08:17:02 04/30/2005/01/2020 CBC w/ auto diff eos 4 % not estab. Not Available [facility] ([facility]) [address], [place], [address], 05/01/2020 08:17:02 04/30/2005/01/2020 CBC w/ auto diff basos 2 % not estab. Not Available [facility] ([facility]) [address], [place], [address], 05/01/2020 08:17:02 04/30/2005/01/2020 CBC w/ auto diff immature cells INSPECTOR QUALITY ASSURANCE Not Available [facility] ([facility]) [address] [place], [address], 05/01/2020 08:17:02 04/30/2005/01/2020 CBC w/ auto diff neutrophils (absolute) 3.8 x10e3 /uL 1.4-7. 0 Not Available [facility] ([facility]) [address] [place], [address], 05/01/2020 08:17:02 04/30/2005/01/2020 CBC w/ auto diff lymphs (absolute) 0.7 x10e3 /uL 0.7-3. 1 Not Available [facility] ([facility]) [address] [place], [address], 05/01/2020 08:17:02 04/30/2005/01/2020 CBC w/ auto diff monocytes(ab solute) 0.4 x10e3 /uL 0.1-0. 9 Not Available [facility] ([facility]) [address] [place], [address], 05/01/2020 08:17:02 04/30/2005/01/2020 CBC w/ auto diff eos (absolute) 0.2 x10e3 /uL 0.0-0. 4 Not Available [facility] ([facility]) [address] [place], [address], 05/01/2020 08:17:02 04/30/2005/01/2020 CBC w/ auto diff baso (absolute) 0.1 x10e3 /uL 0.0-0. 2 Not Available [facility] ([facility]) [address] [place], [address], 05/01/2020 08:17:02 04/30/2005/01/2020 CBC w/ auto diff immature granulocytes 1 % not estab. Not Available [facility] ([facility]) [address] [place], [address], 05/01/2020 08:17:02 04/30/2005/01/2020 CBC w/ auto diff immature grans (abs) 0.0 x10e3 /uL 0.0-0. 1 Not Available [facility] ([facility]) [address], [place], [address], 05/01/2020 08:17:02 04/30/2005/01/2020 CBC w/ auto diff NRBC INSPECTOR QUALITY ASSURANCE Not Available [facility] ([facility]) [address] [place], [address], 05/01/2020 08:17:02 04/30/2005/01/2020 CBC w/ auto diff hematology comments: INSPECTOR QUALITY ASSURANCE Not Available [facility] ([facility]) [address], [place], [address], 05/01/2020 08:17:02 04/30/2005/01/2020 CMP, serum or plasm a glucose 109 mg/dL 65-99 above high normal Not Available [facility] ([facility]) [address] [place], [address], 05/01/2020 08:17:03 04/30/2005/01/2020 CMP, serum or plasm a BUN 12 mg/dL 6-24 Not Available [facility] ([facility]) [address] [place], [address], 05/01/2020 08:17:03 04/30/2005/01/2020 CMP, serum or plasm a creatinine 0.65 mg/dL 0.57-1 .00 Not Available [facility] ([facility]) [address] [place], [address], 05/01/2020 08:17:03 04/30/2005/01/2020 CMP, serum or plasm a eGFR if nonafricn AM 99 mL/mi n/1.7 3 >59 Not Available [facility] ([facility]) [address] [place], [address], 05/01/2020 08:17:03 04/30/20 20 05/01/2020 CMP, serum or plasm a eGFR if africn AM 114 mL/mi n/1.7 3 >59 Not Available [facility] ([facility]) [address] [place], [address], 05/01/2020 08:17:03 04/30/20 20 05/01/2020 CMP, serum or plasm a BUN/creatini ne ratio 18 9-23 Not Available [facility] ([facility]) [address] [place], [address], 05/01/2020 08:17:03 04/30/2005/01/2020 CMP, serum or plasm a sodium 139 mmol/ L 134-14 4 Not Available [facility] ([facility]) [address] [place], [address], 05/01/2020 08:17:03 04/30/2005/01/2020 CMP, serum or plasm a potassium 4.4 mmol/ L 3.5-5. 2 Not Available [facility] ([facility]) [address] [place], [address], 05/01/2020 08:17:03 04/30/2005/01/2020 CMP, serum or plasm a chloride 96 mmol/ L 96-106 Not Available [facility] ([facility]) [address] [place], [address], 05/01/2020 08:17:03 04/30/2005/01/2020 CMP, serum or plasm a carbon dioxide, total 27 mmol/ L 20-29 Not Available [facility] ([facility]) [address] [place], [address], 05/01/2020 08:17:03 04/30/2005/01/2020 CMP, serum or plasm a calcium 10.0 mg/dL 8.7-10 .2 Not Available [facility] ([facility]) [address] [place], [address], 05/01/2020 08:17:03 04/30/2005/01/2020 CMP, serum or plasm a protein, total 7.0 g/dL 6.0-8. 5 Not Available [facility] ([facility]) [address] [place], [address], 05/01/2020 08:17:03 04/30/2005/01/2020 CMP, serum or plasm a albumin 4.6 g/dL 3.8-4. 9 Not Available [facility] ([facility]) [address] [place], [address], 05/01/2020 08:17:03 04/30/2005/01/2020 CMP, serum or plasm a globulin, total 2.4 g/dL 1.5-4. 5 Not Available [facility] ([facility]) [address] [place], [address], 05/01/2020 08:17:03 04/30/2005/01/2020 CMP, serum or plasm a A/G ratio 1.9 1.2-2. 2 Not Available [facility] ([facility]) [address] [place], [address], 05/01/2020 08:17:03 04/30/2005/01/2020 CMP, serum or plasm a bilirubin, total 0.5 mg/dL 0.0-1. 2 Not Available [facility] ([facility]) [address] [place], [address], 05/01/2020 08:17:03 04/30/2005/01/2020 CMP, serum or plasm a alkaline phosphatase 231 IU/L 39-117 above high normal Not Available [facility] ([facility]) [address], [place], [address], 05/01/2020 08:17:03 04/30/20 20 05/01/2020 CMP, serum or plasm a AST (SGOT) 83 IU/L 0-40 above high normal Not Available [facility] ([facility]) [address], [place], [address], 05/01/2020 08:17:03 04/30/20 20 05/01/2020 CMP, serum or plasm a ALT (SGPT) 63 IU/L 0-32 above high normal Not Available [facility] ([facility]) [address], [place], [address], 05/01/2020 08:17:03 04/30/20 20 04/30/2020 urina lysis , dipst ick Leukocytes Negati ve Not Available In-Office Order Internal Use Only DO Not Attach Compendium DO Not Attach Compendium, Do Not Delete/merge, [id number] 04/30/2020 11:03:06 04/30/2004/30/2020 urina lysis , dipst ick Nitrite negati ve Not Available In-Office Order Internal Use Only DO Not Attach Compendium DO Not Attach Compendium, Do Not Delete/merge, [id number] 04/30/2020 11:03:06 04/30/2004/30/2020 urina lysis , dipst ick Urobilinogen .2 Not Available In-Of fice Order Internal Use Only DO Not Attach Compendium DO Not Attach Compendium, Do Not Delete/merge, [id number] 04/30/2020 11:03:06 04/30/2004/30/2020 urina lysis , dipst ick Protein Negati ve Not Available In-Office Order Internal Use Only DO Not Attach Compendium DO Not Attach Compendium, Do Not Delete/merge, [id number] 04/30/2020 11:03:06 04/30/20 20 04/30/2020 urina lysis , dipst ick pH 6.5 Not Available In-Office Order Internal Use Only DO Not Attach Compendium DO Not Attach Compendium, Do Not Delete/merge, [id number] 04/30/2020 11:03:06 04/30/20 20 04/30/2020 urina lysis , dipst ick Blood Negati ve Not Available In-Office Order Internal Use Only DO Not Attach Compendium DO Not Attach Compendium, Do Not Delete/merge, [id number] 04/30/2020 11:03:06 04/30/20 20 04/30/2020 urina lysis , dipst ick Specific [place] 1.020 Not Available In-Off ice Order Internal [...] r spine No observ ation record ed. [address], [place], [address], 02/07/2020 17:22:18 02/19/20 20 02/19/2020 NM, bone scan No observ ation record ed. ssander [facility] [address] [place], [address], 02/19/2020 17:52:46 03/25/20 20 03/25/2020 bone densi ty No observ ation record ed. [facility] [address] [place], [address], 03/28/2020 12:17:03 09/12/19 21 09/10/2020 cardi ac stres s test No observ ation record ed. [facility] [address], [place], [address], 09/12/2020 16:33:08 12/18/19 21 12/09/2020 pulmo nary funct ion test* No observ ation record ed. [facility] [address], [place], [address], 12/17/2020 15:14:10 01/03/20 21 01/02/2021 US, duple x, renal arter y No observ ation record ed. [facility] [address], [place], [address], 01/02/2021 14:47:22 01/03/20 21 01/02/2021 stres s echoc ardio gram No observ ation record ed. [facility] [address], [place], [address], 01/02/2021 14:47:41 11/28/19 24 11/25/2023 US, echoc ardio gram, trans esoph ageal No observ ation [facility] ed. [facility] [address] [facility] [address], [place], [address], 12/08/2023 11:32:40 01/16/20 24 11/23/2023 CT, angio gram, chest , w/ contr ast No observ ation record ed. mmetias [address] [place], [address], 01/16/2024 15:25:06 Result Notes None recorded. Problems Name Problem SNOMED Code Status Onset Date Resolution Date Notes Provider Name and Address Organization Details Recorded Time Drug therapy finding 306289343 Active 2015 CHIO Niño, [place] - [facility] 0 11:49:27 Enzyme level - finding 513319100 Active 2017 CHIO Niño[place] [facility] 0 11:49:27 Fibromyalgia 378063019 Active 2011 Kallie Sloan [place] null, [place] [facility] 0 11:49:27 Hypertensive disorder 45563868 Active 2012 Kallie S[place] [facility] 0 11:49:27 Osteopenia 871284152 Active 2011 Kallie S[place] [facility] 0 11:49:27 Rheumatoid arthritis 12568518 Active 2017 Kallie S[place] [facility] 0 11:49:27 Problem Notes None recorded. Procedures Surgical History Date Name Laterality Status Provider Name and Address Organization Details Recorded Time hysterectomy completed Anabela Blanc [place] [facility] 09/06/2019 12:01:29 Imaging Results Imaging Date Name Status LastModified by Organization Details LastModified Time 01/28/2020 XR, lumbar spine completed milly [place] [address] [place], [address], 02/07/2020 17:22:18 02/19/2020 NM, [facility] [address] [place], [address], 02/19/2020 17:52:46 03/25/2020 bone density completed [facility] [address] [place], [address], 03/28/2020 12:17:03 09/10/2020 cardiac stress test completed [facility] ([facility]) [address] [facility], [place], [address], 09/12/2020 16:33:08 12/09/2020 pulmonary function test* completed [facility] [address], [place], [address], 12/17/2020 15:14:10 01/02/2021 US, duplex, renal artery completed [facility] [address] [facility], [place], [address], 01/02/2021 14:47:22 01/02/2021 stress echocardiogram completed [facility] [address] [facility], [place], [address], 01/02/2021 14:47:41 11/25/2023 US, echocardiogram, transesophageal completed [facility] [address] [place], [address], 12/08/2023 11:32:40 11/23/2023 CT, angiogram, chest, w/ contrast completed [facility] [address] [place], [address], 01/16/2024 15:25:06 Procedure Notes None recorded. Medical Equipment None Reported. Allergies Allergen ID Allergen Name Allergen Category Reaction Reaction Severity Criticality Documentation Date Start Date Code Code System Note Provider Name and Address Organization Details Recorded Time 065769 Substance with sulfonami de structure and antibacte rial mechanism of action (substanc e) medicatio n hives Not available Not available 09/06/2019 57325 8003 SNOMED Not Available Not Available Not Available 962850 Cipro medicatio n Not available Not available Not available 09/06/201971479 3 RxNorm Not Available Not Available Not Available 708049 ciproflox acin medicatio n myalgias (muscle pain) [...] DateTime 01/25/2020 157.48 cm Kallie Sloan MA [facility] 01/25/20 20 11:49:06 Date Recorded Body height Provider Name an d Address Organization Details Last Updated DateTime 01/30/2020 157.48 cm Anabela Blanc MA [facility] 01/30/2020 14:32:47 Date Recorded Body height Body mass index (BMI) Body weight Body temperature Oxygen saturation Oxygen saturation in Arterial blood by Pulse oximetry Heart rate Systolic blood pressure Diastolic blood pressure Provider Name and Address Organization Details Last Updated DateTime 0 157.48 cm 31.1 kg/m2 11431.7 g 98.1 [degF] 93 % 93 % 83 /min 108 mm[Hg] 82 mm[Hg] Anabela Blanc MA [facility] 0 10:40:52 Date Recorded Body height Body mass index (BMI) Body weight Body temperature Oxygen saturation Oxygen saturation in Arterial blood by Pulse oximetry Heart rate Systolic blood pressure Diastolic blood pressure Provider Name and Address Organization Details Last Updated DateTime 0 157.48 cm 31.3 kg/m2 94014 g 98 [degF] 98 % 98 % 80 /min 142 mm[Hg] 90 mm[Hg] Kallie Sloan MA [facility] 0 14:59:34 Social History Question Answer Notes LastModified by Organizat ion Details LastModified Time Tobacco Smoking Status Former Smoker 2012 Anabela Blanc MA null, [facility] 09/06/2019 12:01:14 In The 14 Days Before Symptom Onset, Have You Had Close Contact With A Laboratory-confir med COVID-19 While That Case Was Ill? No Information not available 11/26/2019 If Patient Spent Time In [facility] - Does The Patient Live In [facility]? No Information not available 11/26/2019 In The 14 Days Before Symptom Onset, Have You Had Close Contact With A Person Who Is Under Investigation For COVID-19 While That Person Was Ill? No Information not available 11/26/2019 In The 14 Days Before Symptom Onset, Did The Patient Spend Time In [facility]? No Information not available 11/26/2019 [...] SNOMED-CT Code Diagnosis ICD10 Code Diagnosis Note [id number] Anabela Blanc MA [facility] [address] [place] [address] 09/06/2019 11:41:44 09/07/2019 16:55:26 Chronic depression 505223762 F34.1 Long-term drug therapy 704925401 Z79.899 Essential hypertension 44084968 I10 [id number] Jam Ledezma PA-C [facility] [address] [place] [address] 09/13/2019 11:39:42 09/13/2019 12:10:30 Essential hypertension 75515147 I10 [id number] Jam Ledezma PA-C [facility] [address] [place] [address] 11/26/2019 10:49:30 11/26/2019 12:28:39 Essential hypertension 46005468 I10 Mitral valve prolapse 40 1217993 I34.1 History of transient ischemic attack 049808844 Z86.73 Seasonal a llergic rhinitis 201198410 J30.2 [id number] Jam Ledezma PA-C [facility] [address] [place] [address] 12/10/2019 10:48:06 12/12/2019 11:23:50 Essential hypertension 36900293 I10 Chronic depression 77605 0009 F34.1 Nausea and vomiting 1692 1999 R11.2 [id number] Jam Ledezma PA-C [facility] [address] [place] [address] 12/11/2019 13:09:52 12/12/2019 11:45:12 Mixed hyperlipidemia 114066520 E78.2 [id number] Jam Ledezma PA-C [facility] [address] [place] [address] 12/27/2019 11:02:54 12/28/2019 08:34:57 Idiopathic hypercalcemia 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 E83.52 Seasonal a llergic rhinitis 744288004 J30.2 [id number] Jam Ledezma PA-C [facility] [address] [place] [address] 01/25/2020 10:10:00 01/28/2020 08:04:28 Lumbar radiculopathy 355699829 M54.16 [id number] KELLEN Liao [facility] [address] [place] [address] 01/30/2020 11:07:31 01/31/2020 07:58:24 Idiopathic hypercalcemia 889923018 E83.52 Stress fra cture of tibia 447237567 M84.361A Osteoporosis 37378056 M8 1.0 [id number] Anabela Blanc MA [facility] [address] [place] [address] 02/11/2020 10:34:29 02/11/2020 15:10:24 Pain in right lower limb 886089542 M79.604 Long-term drug therapy 651283395 Z79.463 [id number] Jam Ledezma PA-C [facility] [address] [place] [address] 02/20/2020 14:44:57 02/20/2020 15:38:07 Pathological fracture of right tibia 9660210075 6014119 M84.461G Complaining of a rash 16 7718332 R21 [id number] Jam Ledezma PA-C [facility] [address] [place] [address] 04/22/2020 09:33:20 04/23/2020 12:40:11 Osteopenia 606614594 M85.88 Pathologic al fracture of right tibia 5959628997 8255554 M84.461G Health Concerns Section Related Observation LastModified by Organization Detai ls LastModified Time None Recorded Concern Status LastModified by Organization Details LastModified Time None Recorded Advance Directives Directive None Recorded Payers Encounter Date Sequence Insurance Name Policy Number Policy Bright Covered Member ID Bright Member ID Guarantor Name 01/25/2020 1 [facility] PRIOR TO 02/26/2021 (MEDICAID REPLACEMENT - HMO) Antoinette Da Silva [id number] Antoinette Da Silva 01/30/2020 1 [facility] PRIOR TO 02/26/2021 (MEDICAID REPLACEMENT - HMO) Antoinette Da Silva [id number] Antoinette Da Silva 02/11/2020 1 [facility] PRIOR TO 02/26/2021 (MEDICAID REPLACEMENT - HMO) Antoinette Da Silva [id number] Antoinette Da Silva 02/20/2020 1 [facility] PRIOR TO 02/26/2021 (MEDICAID REPLACEMENT - HMO) Antoinette Da Silva [id number] Antoinette Da Silva 04/22/2020 1 [facility] PRIOR TO 02/26/2021 (MEDICAID REPLACEMENT - HMO) Antoinette Da Silva [id number] Antoinette Da Silva Notes Date Note Type [...] osteoporosis Jam Ledezma PA-C Attn: [address] [place], [address], [facility] 01/25/2020 12:05:40 01/30/2020 text/html questions re bpressure...162/106 [...] when it broke due to osteoporosis... Jam eLdezma PA-C Attn: [address] [place], [address], [facility] 01/30/2020 15:08:21 02/11/2020 text/html started january 17..pain in medial lower rt leg..no known injury. went to ER xrays were done. findings of an old healed fracture that the patient denies ever having broken. pain has not improved may have worsened. Anabela Blanc MA [facility], [facility] 02/11/2020 11:25:00 02/20/2020 text/html bone scan reviewed..rib with uptake and rt tib fib with intense uptake they say likely posttraumatic but she denies injury. now skin on forearms are red and that is pruritic not painful Jam Ledezma PA-C Attn: [address] [place], [address], [facility] 02/20/2020 15:32:42 04/22/2020 text/html follow up on leg fractures that dont belong... Jam Ledezma PA-C Attn: [address] [facility], [place], [address], [facility] 04/22/2020 17:56:09 OBGyn Episode No OBEpisode recorded.
--- OUTSIDE RECORDS SUMMARY | 2024-12-18 11:24 | XMS_ITS | Clinical Summary ---
Author Organization [facility] Address [address] [place] [address] Care Team Providers Care Town Marshal Name Role Phone Yg Lee MD Primary Care Provider [phone] Allergies Active Allergy Reactions Criticality Noted Date [...] Active Additional Information Patient not taking.Reported on 12/04/2024 omeprazole (PriLOSEC) 20 mg Capsule, Delayed Release(E.C.) TAKE 1 CAPSULE BY MOUTH EVERY DAY 90 Capsule 3 Active Additional Information Patient not taking.Reported on 12/04/2024 hydrOXYchloroQUIN E (PLAQUENIL) 200 mg tablet TAKE 1 TABLET BY MOUTH TWICE DAILY Active nitroglycerin (NITROSTAT) 0.4 mg Tablet, Sublingual Active dexlansoprazole (Dexilant) 60 mg Delayed Release capsule Lot: [id number] Ex: 10/21 Qty: 8 5 Capsule Active Additional Information Patient not taking.Reported on 12/04/2024 amLODIPine (NORVASC) 10 mg tablet Take 10 mg by mouth. Active carvediloL (COREG) 25 mg tablet Take 25 mg by mouth. Active fluticasone propionate (Flovent HFA) 220 mcg/actuation HFA Aerosol Inhaler USE 2 PUFFS BY MOUTH TWICE A DAY 36 Gram 3 Active Additional Information Patient not taking.Reported on 12/04/2024 ondansetron (ZOFRAN ODT) 4 mg Tablet, Rapid Dissolve DISSOLVE ONE TABLET UNDER THE TONGUE EVERY 8 HOURS NEEDED FOR NAUSEA 45 Tablet Active Additional Information Patient not taking.Reported on 12/04/2024 fluticasone propionate (FLONASE) 50 mcg/spray [place], Suspension nasal inhaler USE 1 OR 2 [...] Active Additional Information Patient not taking.Reported on 12/04/2024 tiotropium-olodat Jose Eduardo (STIOLTO RESPIMAT) 2.5-2.5 mcg/actuation metered inhaler Take 2 Puffs by inhalation daily. 4 Gram 2 Active Additional Information Patient not taking.Reported on 12/04/2024 oxyCODONE-acetami nophen (PERCOCET) 10-325 mg Tablet Take 1 Tablet by mouth every 4 hours as needed. Active famotidine (PEPCID) 20 mg tablet TAKE 1 TABLET(20 MG) BY MOUTH TWICE DAILY 180 Tablet 1 022 Active Additional Information Patient not taking.Reported on 12/04/2024 ibandronate (BONIVA) 150 mg tabletIndications :Other osteoporosis without current pathological fracture TAKE 1 TABLET(150 MG) BY MOUTH EVERY 30 DAYS 3 Tablet 1 Active Additional Information Patient not taking.Reported on 12/04/2024 lidocaine (LIDODERM) 5 % Adhesive Patch, Medicated Apply 1 Patch to affected area every 24 hours. 30 Patch 3 023 Active oxyCODONE (ROXICODONE) 5 mg tabletIndications :Psoriatic arthritis (CMS/HCC) Take 1 Tablet (5 mg) by mouth every 4 hours as needed for Pain. Max Daily Amount: 30 mg 60 Tablet Active Additional Information Patient not taking.Reported on 12/04/2024 amLODIPine (NORVASC) 5 mg tablet Take 5 mg by mouth daily. Active sennosides 8.6 mg-docusate sodium 50 mg tablet Take 1 Tablet by mouth. Active naloxone 4 mg/actuation nasal spray 023 Active ascorbic acid (vitamin C) 500 mg chewable tablet Take 500 mg by mouth 2 times daily. Active icosapent ethyL (VASCEPA) 1 gram Capsule Take 2 Capsules (2 Grams) by mouth 2 times daily with meals. 360 Capsule 3 023 Active Additional Information Patient not taking.Reported on 12/04/2024 aspirin (ECOTRIN EC) 81 mg Tablet, Delayed Release (E.C.)Indications :Frequent PVCs,Essential hypertension, benign,Other hyperlipidemia,Co nnective tissue disease overlap syndrome take 2 tablets by mouth daily 180 Tablet 3 024 Active apixaban (ELIQUIS) 5 mg [...] Active Additional Information Patient not taking.Reported on 12/04/2024 rosuvastatin (CRESTOR) 5 mg tablet take 1 tablet by mouth every day 90 Tablet 3 Active diltiaZEM (DILACOR XR) 240 mg Extended Release capsule Take 1 Capsule (240 mg) by mouth daily. 90 Capsule 3 Active apixaban (ELIQUIS) 5 mg tablet Lot: [id number] ex: 05/2025 qty: 8 14 Tablet Active [...] mouth daily. 90 Tablet 3 024 Active DULoxetine (CYMBALTA) 60 mg Capsule, Delayed Release(E.C.)Adore cations:Other specified anxiety disorders TAKE 1 CAPSULE BY MOUTH DAILY 90 Capsule 3 Active apixaban (ELIQUIS) 5 mg tablet Take 1 Tablet (5 mg) by mouth 2 times daily. 180 Tablet 3 Active doxycycline monohydrate 100 mg Tablet Take 1 Tablet by mouth 2 times daily. Active albuterol sulfate HFA 90 mcg/actuation aerosol inhaler INHALE 2 PUFFS 4 TIMES A DAY NEEDED FOR SHORTNESS OF BREATH OR FOR WHEEZE Active HYDROcodone-aceta minophen (NORCO) 5-325 mg tablet Active ibuprofen (MOTRIN) 600 mg tablet 600 MG ORALLY THREE TIMES A DAY NEEDED FOR FEVER OR PAIN Active ezetimibe (ZETIA) 10 mg tablet Take 1 Tablet (10 mg) by mouth daily. 90 Tablet 3 025 Active isosorbide mononitrate (IMDUR) 30 mg Extended Release 24 hour tablet Take 1 Tablet (30 mg) by mouth daily. 90 Tablet 1 025 Active omeprazole (PriLOSEC) 40 mg Capsule, Delayed Release(E.C.)Adore cations:Gastroeso phageal reflux disease without esophagitis Take 1 Capsule (40 mg) by mouth daily. 90 Capsule 3 025 Active losartan-hydroCHL OROthiazide (HYZAAR) 100-25 mg tabletIndications :Essential hypertension, benign TAKE 1 TABLET BY MOUTH DAILY 100 Tablet 3 025 Active isosorbide mononitrate (IMDUR) 30 mg Extended Release 24 hour tablet Take 1 Tablet by mouth daily. 023 2024 Discontinued(R eorder) evolocumab (Repatha Lenoraick) 140 mg/mL Pen Injector Inject contents of one pen (140 mg) under the skin every 2 weeks. 6 mL 3 023 2024 Discontinued amoxicillin-clavu lanate (AUGMENTIN) 875-125 mg tablet Take 1 Tablet by mouth every 12 hours. 20 Tablet 024 2024 Discontinued ezetimibe (ZETIA) 10 mg tablet TAKE 1 TABLET(10 MG) BY MOUTH DAILY 90 Tablet 3 024 2024 Discontinued(R eorder) losartan-hydroCHL OROthiazide (HYZAAR) 100-25 mg tabletIndications :Essential hypertension, benign TAKE 1 TABLET BY MOUTH DAILY 90 Tablet 3 025 2024 Discontinued omeprazole (PriLOSEC) 40 mg Capsule, Delayed Release(E.C.)Adore cations:Gastroeso phageal reflux disease without esophagitis TAKE 1 CAPSULE(40 MG) BY MOUTH DAILY 90 Capsule 3 025 2024 Discontinued(R eorder) Active Problems Patient Care Coordination No te Formatting of this note migh t be different from the original. [facility] [id number] 09/01/22 [id number] 12/04/24 Problem Noted Date Diagnosed Date Pulmonary hypertension [...] Encounters Date Type Department Care Team Description 12/18/2024 Refill [facility] [place] [address] [place] [address] Yg Lee MD Essential hypertension, benign 12/06/2024 Telephone [place] [address] [address] [place] [address] Yg Lee MD Needs Orders Written 12/04/2024 3:00 PM CDT Office Visit [address] [place] [address] Yg Lee MD Pulmonary nodule (Primary Dx); Atrial fibrillation, unspecified type ([facility]); Moderate mitral regurgitation; Essential hypertension, benign; Other specified hypothyroidism; Other hyperlipidemia; Abnormal glucose; Hypomagnesemia; Vitamin D deficiency; Vitamin B12 deficiency (non anemic); Other osteoporosis with current pathological fracture with delayed healing, subsequent encounter; Menopause; Gastroesophageal reflux disease without esophagitis; Psoriatic arthritis ([facility]); Pulmonary hypertension ([facility]); Other emphysema ([facility]) 12/03/[address] [place] [address] Yg Lee MD 11/27/2024 External Device Data [facility] ABSTRACTION Provider, Abstract 11/19/2024 Abstract [place] [address] [address] [facility] [address] [place] [address] Yg Lee MD 11/13/[address] [place] [address] Yg Lee MD Needs Orders Written 11/05/2024 External Device Data [facility] ABSTRACTION Provider, Abstract 10/17/2024 External Device Data [facility] ABSTRACTION Provider, Abstract 10/15/2024 Refill [place] [address] [address] [facility] [address] [place] [address] Yg Lee MD Gastroesophageal reflux disease without esophagitis 10/12/2024 Abstract [place] [address] [facility] [facility] [address] [place] [address] Provider, Abstract 10/05/2024 Telephone [place] [address] [address] [facility] [address] [place] [address] Yg Lee MD Needs Appointment 09/20/2024 External Device Data [facility] ABSTRACTION Provider, Abstract 09/19/2024 [facility] Primary Care [place] [address] [place] [address] Yg Lee MD Essential hypertension, benign from Last 3 Months Immunizations Immunization Administration Dates Next Due (ADACEL/BOOSTRIX)(10 YR UP) TDAP VACCINE, 0.5ML, IM 06/15/2011 (PFIZER)(12 YR UP) COVID-19 VACCINE - EMERGENCY USE AUTHORIZATION, MRNA, [id number](PF) 30 MCG/0.3 ML IM SUSP 04/22/2021,04/01/2021 (PNEUMOVAX 23)(50 YRS UP) PN EUMOCOCCAL POLYSACCHARIDE (PPV23) 0.5 ML, IM 07/18/2017,06/15/2011 (PREVNAR 13)(6 WKS UP) PNEUM OCOCCAL CONJUGATE (PCV13) 0.5 ML, IM 10/20/2020 (PREVNAR 20)(6 WKS UP) PNEUM OCOCCAL CONJUGATE VACCINE 20-VALENT (PCV20), POLYSACCHARIDE [id number] CONJUGATE, ADJUVANT 0.5 ML (PF) IM 02/23/2023 INFLUENZA VACCINE QUADRIVALE NT 6 MOS UP PF IM 09/01/2022,08/14/2021,07/17/2020,06/21,06/09/2018,07/05/2017 INFLUENZA VACCINE TRIVALENT SPLIT VIRUS, (6 MOS UP), 0.5ML (PF), IM 05/29/2024 Influenza Seasonal Unspecifi ed Formulation IM 06/16/2016,06/11/2015,06/01/2014,07/28,06/14/2012,06/01/2011 Influenza, Unspecified Formulation 05/29/2022 Respiratory syncytial virus (RSV), unspecified 05/29/2024 Family History Medical History Relation Name Comments [...] on file Legal Sex Female 6:04 AM [employer] Gender Identity Not on file Sexual Orientation Not on file Occupation Industry Job Start Date Job End Date Not on file Not on file Not on file Not on file Last Filed Vital Signs Vital Sign Reading Time Taken Comments Blood Pressure 139/81 12/04/2024 3:00 PM CDT Pulse 86 12/04/2024 3:00 PM CDT Temperature 36.4 C (97.5 F) 02/23/2023 1:39 PM CDT Respiratory Rate 15 02/23/2023 1:39 PM CDT Oxygen Saturation 97% 12/04/2024 3:00 PM CDT Inhaled Oxygen Concentration - - Weight 66.2 kg (146 lb) 12/04/2024 3:00 PM CDT Height 152.4 cm (5') 12/04/2024 3:00 PM CDT Body Mass Index 28.51 12/04/2024 3:00 PM CDT Plan of Treatment Upcoming Encounters Date Type Department Care Team (Late st Contact Info) Description 06/17/2025 11:20 AM CDT Office Visit [facility] Care [address] [place] [address] Yg Lee MD [address] [place] [address] Health Maintenance Due Date Last Done [...] - Risk 60-74 years 1-dose series) 2022 05/29/2024 BREAST CANCER SCREENING 05/16/2025 05/16/20 24, 10/08/2022, 10/08/2022, Additional history exists COLORECTAL CANCER SCREENING (AUTO ORDER) 04/22/2026 04/22/2016, 11/01/2011 COLORECTAL SCREENING 04/22/2026 04/22/2016, 11/01/2011, 11/01/2011 Colorectal Cancer Screening (AUTO ORDER) 04/22/2026 Colorectal Cancer Screening 04/22/2026 Pre-Diabetes and Diabetes Screening 06/15/2027 06/15/2024, 08/24/2023, 08/11/2021, Additional history exists INFLUENZA VACCINE Completed 05/29/2024, , 08/14/2021, Additional history exists Preventative Visit- Commercial Completed 0 12/04/2024, 09/01/2022, 10/21/2017, Additional history exists Medical Devices Implanted Type Area Chronic Specialist Device Identifier Shelf Expiration Date Model / Serial / Lot Stent Pncrtc Frmn Flx 5fr 5cm 6552 - [id number] Implanted:Qty: 1 on 02/24/2018 by John White MD at [facility] Stent N/A: Pancreas [employer] [id number] 09/29/2022 6552 / / [id number] Procedures Procedure Name Priority Date/Time Associated Diagnosis Comments HEMOGLOBIN A1C Routine 06/15/2024 9:16 AM CDT Abnormal glucose MAMMO 3D KIRILL SCREEN BILAT W OR WO CAD Routine 05/16/2024 1:15 PM CDT Screening mammogram, encounter for from Last 3 Months or Most Recently Relevant to Health Maintenance Results * HEMOGLOBIN A1C (06/15/2024 9:16 AM CDT) HEMOGLOBIN A1C 5.2 <5.7 % of total Hgb Maddi BuzzniAmos Santana Comment: For the purpose of screening for the presence of diabetes: <5.7% Consistent with the absence of diabetes 5.7-6.4% Consistent with increased risk for diabetes (prediabetes) > or =6.5% Consistent with diabetes This assay result is consistent with a decreased risk of diabetes. Currently, no consensus exists regarding use of hemoglobin A1c for diagnosis of diabetes in children. According to [place] Diabetes Association (ADA) guidelines, hemoglobin A1c <7.0% represents optimal control in non- diabetic patients. Different metrics may apply to specific patient populations. Standards of Medical Care in Diabetes(ADA). ESTIMATED AVERAGE GLUCOSE (MG/DL) 103 mg/dL Maddi Santana ESTIMATED AVERAGE GLUCOSE (MMOL/L) 5.7 mmol/L Maddi BuzzniAmos Santana Comment: FASTING:YES FASTING: YES Test Performed at: [place] [address] [address] [place] [address] Ceferino Dasilva Vo Blood 06/15/2024 9:16 AM CDT 06/15/2024 9:17 AM CDT us Yg Lee MD CHEMISTRY ORDERABLES Final Re sult [facility] [phone] [facility] [address] [address] [place] [address] * MAMMO 3D KIRILL SCREEN BILAT W OR WO CAD (05/16/2024 1:15 PM CDT) Anatomical Region Laterality Modality Breast Bilateral Mammography 05/16/2024 1:15 PM CDT Impressions 05/16/2024 2:36 PM CDT IMPRESSION: No mammographic evidence of malignancy in the bilateral breasts. Routine screening mammography is recommended in one year. OVERALL FINAL ASSESSMENT: BI-RADS CATEGORY 1 - Negative. [facility] Narrative 05/16/2024 2:36 PM CDT EXAMINATION: BILATERAL [...] BI-RADS CATEGORY 1 - Negative. DICTATION LOCATION: [facility] us Yg Lee MD MAMMO ORDERABLES Final Result from Last 3 Months or Most Recently Relevant to Health Maintenance Insurance RX [employer] RX Member Subscriber Plan / Payer (Ef fective 2020-Present) Name:Antoinette Da Silva Relation to Subscriber:Self Name:Antoinette Da Silva Payer ID:Not on file Type:RX Commercial Address: [address] [address] [place] PPO MCR Advance Directives For more information, please contact: [phone] Documents on File Type Date Recorded Patient Research Contracts Supervisor Expl anation Advance Directive Living Will 10/20/2020 [...] 12:41 PM 10/31/2015 7:49 PM Care Teams Town Marshal Relationship Specialty Start Date End Date gY Lee MD PCP - General Internal Medicine 12/20/18
--- OUTSIDE RECORDS SUMMARY | 2024-12-18 11:24 | XMS_ITS | Clinical Summary ---
Author Organization [facility] Address [address] [place] [address] Phone Care Team Providers Care Oncology Account Specialist Name Role Phone JAM MCDONNELL PA-C Primary Care Provider [phone] Reason for Visit and Chief Complaint HOSPITAL [...] Diagnosis HOSPITAL FOLLOW UP EXAM TIFFANY HOWARD [facility]- 4 12:43PM 1:47PM Insurance Includes: Active Insurance Policies Plan Name Member ID Group # Subscriber Relationship Effect cyn Dates 1 - [place] [employer]AGE [id number] NIGHAT DELANEY Self Clinical Notes Includes: Clinical Notes from this encounter No Clinical Notes Recorded
--- OUTSIDE RECORDS SUMMARY | 2024-12-18 11:24 | XMS_ITS | Clinical Summary ---
Author Organization [facility] Address [address] [place] [address] Phone Care Team Providers Care Flat Folder Name Role Phone JAM MCDONNELL PA-C Primary Care Provider [phone] Reason for Visit and Chief Complaint HEART [...] HEART CENTER CHECK UP TIFFANY HOWARD [facility]- 4 10:58AM 11:28AM Insurance Includes: Active Insurance Policies Plan Name Member ID Group # Subscriber Relationship Effect cyn Dates 1 - [employer] ADVANTAGE [id number] NIGHAT DELANEY Self Clinical Notes Includes: Clinical Notes from this encounter No Clinical Notes Recorded
--- OUTSIDE RECORDS SUMMARY | 2024-12-18 11:24 | XMS_ITS | Encounter Summary ---
Author Organization [facility] Address [address] [place] [address] Care Team Providers Care Physical Science Aide Name Role Phone Yg Lee MD Primary Care Provider [phone] Reason for Referral * CT Scan (Routine) - Pending Review Specialty Diagnoses / Procedures Referred By Mariaa t Referred To Contact Diagnoses Pulmonary nodules Procedures CT CHEST W CONTRAST Yg Lee MD [address] [place] [address] [address] [place] [address] Phone: tel: fax: [address] [address] Phone: tel: fax: Referral ID Status Reason Start Date Expiration Date V isits Requested Visits Authorized [id number] Pending Review 11/13/2024 12/14/2025 1 1 Reason for Visit * Reason Comments Needs Orders Written Encounter Details Date Type Department Care Team (Late st Contact Info) Description 11/13/2024 Telephone [facility] Primary Care [address] [place] [address] Yg Lee MD [address] [place] [address] [address] [place] [address] Needs Orders Written Social History [...] on file 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 Gender Identity Not on file Sexual Orientation Not on file Occupation Industry Job Start Date Job End Date Not on file Not on file Not on file Not on file documented as of this encounter Miscellaneous Notes * Telephone Encounter - Alicia Yost PCA - 11/13/2024 2:24 PM CDT Called and spoke with patient and faxed to the [facility] and I let patient know that if she has not heard from them then to give them a call * Telephone Encounter - Yg Lee MD - 11/13/2024 12:49 PM CDT Order placed * Telephone Encounter - Yudi Montiel - 11/13/2024 10:38 AM CDT Copied from [facility] #[id number]. Topic: CPA Information Request - Order or Referral Request >> Nov 13, 2024 10:36 AM Yudi Duran wrote: Caller Name: Antoinette Da Silva Patient/Caregiver Callback Number: Patient Contact Information: [phone] Call Notes: order for ct scan with [...] Description 06/17/2025 11:20 AM CDT Office Visit [facility] [place] [address] Yg Lee MD [address] [place] [address] [address] [place] [address] Scheduled Orders Name Type Priority Associated Diagnoses Orde r Schedule CT CHEST W CONTRAST Imaging Routine Pulmonary nodules 1 Occurrences starting 11/13/2024 until 11/13/2025 documented as of this encounter Visit Diagnoses Diagnosis Pulmonary nodules- Primary Other nonspecific abnormal finding of lung field documented in this encounter Care Teams Physical Science Aide Relationship Specialty Start Date End Date Yg Lee MD PCP - General Internal Medicine 12/20/18 documented as of this encounter
--- OUTSIDE RECORDS SUMMARY | 2024-12-18 11:24 | XMS_ITS | Encounter Summary ---
Author Organization [facility] Healthcare Address [address] [place] [address] Care Team Providers Care Advertising Operations Manager Name Role Phone Yg Lee MD Primary Care Provider + Mitchell Zamarripa MD Unavailable [phone] Brit More NP Unavailable [phone] Cliff Ronquillo NP Unavailable [phone] Dick Aguilar Unavailable [phone] Gavin Sewell MD Unavailable [phone] Encounter Details Date Type Department Care Team (Late st Contact Info) Description 12/14/2021 Telephone [facility] Imaging Center [address] [place] [address] Fariha Hampton, RT Social History Tobacco Use Types Packs/Day Years Used Date Smoking Tobacco: Former Smokeless Tobacco: Never Alcohol Use Standard Drinks/Week Comments Yes 0 (1 standard drink = 0.6 oz pur e alcohol) occasional Comments No Sex and Gender Information Value Date Recorded Sex Assigned at Not on file 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 [place] [address] Nurse Practitioner Nurse Practitioner 05/05/22 Dick Aguilar PA [address] [place] [address] DR [facility] [place] [address] Physician Asset Protection Greeter Orthopedic Surgery 11/11/22 Gavin Sewell MD [address] [place] [address] DR CARLOS QUINTERO [address] [place] [address] Surgeon Orthopedic Surgery 12/24/22 documented as of this encounter
--- OUTSIDE RECORDS SUMMARY | 2024-12-18 11:25 | XMS_ITS | Clinical Summary ---
Author Organization [facility] Address [address] [place] [address] Phone Care Team Providers Care Chief Station Engineer Name Role Phone JAM MCDONNELL PA-C Primary Care Provider [phone] Reason for Visit and Chief Complaint LEXISCAN [...] Time Diagnosis LEXISCAN CARDIOLITE ELTON GROVER MD [facility] 08/02/20 23 9:30AM 11:24AM Insurance Includes: Active Insurance Policies Plan Name Member ID Group # Subscriber Relationship Effect cyn Dates 1 - [employer] CROSS MEDICARE ADVANTAGE [id number] NIGHAT DELANEY Self Clinical Notes Includes: Clinical Notes from this encounter No Clinical Notes Recorded
--- OUTSIDE RECORDS SUMMARY | 2024-12-18 11:25 | XMS_ITS | Encounter Summary ---
Author Organization [facility] Healthcare Address [address] [place] [address] Care Team Providers Care Washateria Attendant Name Role Phone Jose Cruz Ledezma Primary Care Provider [phone] Yg Lee MD Primary Care Provider + Mitchell Zamarripa MD Unavailable [phone] Brit More BORING 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 VERTICAL Unavailable [phone] Cliff Ronquillo NP Unavailable [phone] Dick Aguilar Unavailable [phone] Gavin Sewell MD Unavailable [phone] Reason for Visit * Reason Onset Date Comments Scheduling Appointments 03/24/2020 Called f or DEXA appointment reminder Encounter Details Date Type Department Care Team (Late st Contact Info) Description 03/24/2020 Telephone [facility] Imaging Center [address] [place] [address] Valencia Hernandez RT Scheduling Appointments (Called for DEXA appointment reminder) Social History Tobacco Use Types Packs/Day Years Used Date Smoking Tobacco: Former Smokeless Tobacco: Never Alcohol Use Standard Drinks/Week Comments Yes 0 (1 standard drink = 0.6 oz pur e alcohol) occasional Comments No Sex and Gender Information Value Date Recorded Sex Assigned at Not on file Legal Sex Female 11:50 PM AIR 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 Gender Identity Not on file Sexual [...] COVID: Suspected 07/22/2024 07/22/2024 07/22/2024 9:25 AM AIR HAMMER OPERATOR documented as of this encounter Care Teams Washateria Attendant Relationship Specialty Start Date End Date Jose Cruz Ledezma PA [address] [place] [address] PCP - General 01/24/20 08/18/20 Yg Lee MD [address] [place] [address] PCP - General Internal Medicine 08/19/20 Mitchell Zamarripa MD [address] [place] [address] Referring Physician Rheumatology 03/11/22 Brit More NP [address] [place] [address] Nurse Practitioner Cardiovascular Disease 03/11/22 Cliff Ronquillo NP [address] [place] [address] DR [address] [place] [address] Nurse Practitioner Nurse Practitioner 05/05/22 Dick Aguilar PA [address] [place] [address] DR [address] [place] [address] Physician Fusion Operator Orthopedic Surgery 11/11/22 Gavin Sewell MD [address] [facility] [address] GONZALEZ B [facility] [address] [place] [address] Surgeon Orthopedic Surgery 12/24/22 documented as of this encounter
--- OUTSIDE RECORDS SUMMARY | 2024-12-18 11:25 | XMS_ITS | Clinical Summary ---
Author Organization [facility] Address [address] [place] [address] Phone Care Team Providers Care Silk Presser Name Role Phone JAM MCDONNELL PA-C Primary Care Provider [phone] Reason for Visit and Chief Complaint HEART [...] Diagnosis HEART CENTER FOLLOW UP [facility]FF[facility]- 3 1:47PM 2:40PM Insurance Includes: Active Insurance Policies Plan Name Member ID Group # Subscriber Relationship Effect cyn Dates 1 - [place] [employer] MEDICARE ADVANTAGE [id number] NIGHAT DELANEY Self Clinical Notes Includes: Clinical Notes from this encounter No Clinical Notes Recorded
--- OUTSIDE RECORDS SUMMARY | 2024-12-18 11:25 | XMS_ITS | Encounter Summary ---
Author Organization [facility] Address [address] [place] [address] Care Team Providers Care Manager Licensing Name Role Phone Yg Lee MD Primary Care Provider [phone] Shandra Ruffin APRN-[employer] [employer] [facility] [employer] Primary Care Provider Yg Lee MD Primary Care Provider [phone] Shandra Ruffin APRN-[employer] [employer] [facility] [employer] Primary Care Provider Yg Lee MD Primary Care Provider [phone] Shandra Ruffin APRN-[employer] [employer] Primary Care Provider Encounter Details Date Type Department Care Team (Late st Contact Info) Description 05/18/2019 Telephone [facility] [address] [place] [address] Mitchell Zamarripa MD [address] [place] [address] [place] [address] Social History Tobacco Use Types Packs/Day Years Used Date Smoking Tobacco: Every Day Cigarettes Alcohol Use Standard Drinks/Week Comments Yes 0 (1 standard drink = 0.6 oz pur e alcohol) occasional Comments No Sex and Gender Information Value Date Recorded Sex Assigned at Not on file Legal Sex Female 1:04 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 She stated she has already been waiting seven months for an appointment and now she has to wait until November for her first appointment. She wants to know is there anyway she can be seen sooner. Please give her a call. [facility] Patient Call Back number: [phone]. documented in this encounter Plan of Treatment Not on file documented as of this encounter Visit Diagnoses Not on filedocumented in this encounter Care Teams Manager Licensing Relationship Specialty Start Date End Date Yg Lee MD [address] [place] [phone] PCP - General 10/28/11 05/23/19 Shandra Ruffin APRN-OCCUPATIONAL THERAPIST ASSISTANT [address] [place], [place] [phone] PCP - General 05/24/19 07/20/20 Yg Lee MD [address] [place], [place] [phone] PCP - General Internal Medicine 07/21/20 07/21/20 Shandra Ruffin APRN-OCCUPATIONAL THERAPIST ASSISTANT [address] [place] [phone] PCP - General 07/22/20 11/15/21 Yg Lee MD [address] [place] [phone] PCP - General Internal Medicine 11/16/21 04/01/22 Shandra Ruffin APRN-OCCUPATIONAL THERAPIST ASSISTANT [address] [place] [address] [place] [address] PCP - General 04/02/22 documented as of this encounter
--- OUTSIDE RECORDS SUMMARY | 2024-12-18 11:25 | XMS_ITS | Clinical Summary ---
Author Organization [facility] Address [address] [place] [address] Phone Care Team Providers Care Industrial Waste Inspector Name Role Phone Jose Cruz Ledezma Primary Care Provider [phone] Allergies Active Allergy Reactions Criticality Noted Date [...] age to complete this topic Insurance MEDICARE [employer] GENERIC Care Teams Industrial Waste Inspector Relationship Specialty Start Date End Date Jose Cruz Ledezma PAC [address] [place] [id number] PCP - General Physician Assistant Director Of Plant Operations 01/28/20
--- OUTSIDE RECORDS SUMMARY | 2024-12-18 11:25 | XMS_ITS | Clinical Summary ---
Author Organization [facility] Address [address] [place] [address] Phone Care Team Providers Care Pest Management Supervisor Name Role Phone JAM MCDONNELL PA-C Primary Care Provider [phone] Reason for Visit and Chief Complaint ECHOCARDIOGRAM [...] Subscriber Relationship Effect cyn Dates 1 - [place] [employer] MEDICARE ADVANTAGE [id number] NIGHAT DELANEY Self Clinical Notes Includes: Clinical Notes from this encounter No Clinical Notes Recorded
[2024-12-18 19:39] LABS: Basophils Percent Auto 0.4 % (0.2-1.2); Eosinophils Absolute Auto 0.1 K/mm3 (0-0.3); Eosinophils Percent Auto 0.8 % (0-4.4); Hematocrit 35.5 % (37.0-47.0); Hemoglobin 10.8 g/dL (12.0-15.0); Immature Granulocyte Absolute 0.04 K/mm3 (0.00-0.031); Immature Granulocyte Percent A 0.5 % (0-0.5); Lymphocytes Absolute Auto 0.56 K/mm3 (0.9-3.2); Lymphocytes Percent Auto 6.7 % (18.3-44.2); Mean Corpuscular HGB Conc 30.4 g/dl (32-36); Mean Corpuscular Hemoglobin 25.5 pg (26-34); Mean Corpuscular Volume 83.9 fl (80-100); Mean Platelet Volume 9.2 fl (7.4-10.4); Monocytes Absolute Auto 0.3 K/mm3 (0.1-0.6); Monocytes Percent Auto 4.1 % (2.6-8.5); Neutrophils Absolute Auto 7.3 K/mm3 (1.3-6.7); Neutrophils Percent Auto 87.5 % (45.5-73.1); Platelet Count Result 332 k/mm3 (150-375); Red Blood Count 4.23 M/mm3 (4.2-5.4); Red Cell Distribution Width 16.5 % (11.5-14.5); White Blood Count 8.4 K/mm3 (4.5-10.0)
[2024-12-18 19:55] LABS: Alanine Aminotransferase 72 U/L (6-35); Albumin Level 4.2 g/dL (3.5-5.1); Alkaline Phosphatase 261 U/L (38-126); Anion Gap 11 mmol/L (4-12); Aspartate Amino Transferase 139 U/L (14-36); Bilirubin,Total 1.1 mg/dL (0.2-1.3); Blood Urea Nitrogen 8 mg/dL (7-17); Calcium 8.9 mg/dL (8.4-10.2); Carbon Dioxide 29 mmol/L (22-30); Chloride 86 mmol/L (98-107); Estimated Glomerular Filt Rate > 60; Glucose 105 mg/dL (65-110); Potassium 3.4 mmol/L (3.4-5.0); Sodium 126 mmol/L (137-145)
[2024-12-18 20:03] LABS: Digoxin 0.7 ng/mL (0.8-2.0)
[2024-12-18 21:21] LABS: Vitamin D 25 Hydroxy 18.5 ng/mL
== END 2024-12-18 10:01 | disposition home or self-care (01) ==
PROVIDERS: PCP Internal Medicine; Visit Provider Internal Medicine
DX: E03.8 Other specified hypothyroidism (principal); R73.09 Other abnormal glucose; E78.49 Other hyperlipidemia; I10 Essential (primary) hypertension; E53.8 Deficiency of other specified B group vitamins; E55.9 Vitamin D deficiency, unspecified; I48.91 Unspecified atrial fibrillation
CPT/HCPCS: 36415; 80053; 80162; 82306; 82607; 83036; 84443; 85025

== ENCOUNTER 2024-12-20 10:19 | Inpatient (IN) | payer OTHER, SELFPAY ==
--- NOTE | ~2024-12-20 | US_ITS ---
US renal BI Ordering provider: Dylan Ruiz MD History: . elevated creatinine . Comparison: None. Technique: Ultrasound bilateral kidneys. Findings: RIGHT KIDNEY: Measures 13.1x 5.7x 5.4 cm in length which is normal in size. No renal cysts. No renal mass or visualized echogenic stones. Otherwise, normal echotexture and contour. No hydronephrosis. No rmal renal cortical thickness. LEFT KIDNEY: Measures 12.7x 6.7x 5.3 cm in length which is normal in size. No renal cysts. No renal m ass or visualized echogenic stones. Otherwise, normal echotexture and contour. No hydronephrosis. Nor mal renal cortical thickness. BLADDER: Normal. Ureteral jets were not seen bilaterally. IMPRESSION: Normal study. Reviewed, dictated and finalized at location A. IMPRESSION: Normal study.
--- NOTE | ~2024-12-20 | XR_ITS ---
XR forearm RT 2V Ordering provider: Efren Rendon MD History: . rt radius/ ulna fx with ex fix . Comparison: December 03, 2024 FINDINGS: BONES: Postoperative changes for fixation of the radius and ulna is noted. No change from previous ex amination. JOINT SPACES: Narrowing of the radial carpal joint. SOFT TISSUES: Normal. IMPRESSION: Fractures of the radius and ulna with external and internal fixation. Reviewed, dictated and finalized at location A.
--- NOTE | ~2024-12-20 | XR_ITS ---
EXAMINATION: XR chest 2V DATE: 12/22/2024 11:19 INDICATION: Shortness of breath TECHNIQUE: PA and lateral views of the chest were obtained. COMPARISON: Chest radiograph dated 11/08/2024 FINDINGS: Very small bilateral pleural effusions with blunting at the posterior sulci and costophrenic angles. Mild streaky bibasilar atelectasis. No pulmonary edema or pneumothorax. Heart size is normal. Tortuou s thoracic aorta. Reverse left total shoulder arthroplasty. Mild S-shaped scoliosis of the thoracic s pine with mild to moderate spondylosis. IMPRESSION: 1. Small bilateral pleural effusions with mild bibasilar atelectasis. Reviewed, dictated and finalized at location A.
[2024-12-20 08:35] VITALS: BMI 29.4
--- OUTSIDE RECORDS SUMMARY | 2024-12-20 08:51 | XMS_ITS | Clinical Summary ---
Author Organization [facility] Address [address] [place] [address] Care Team Providers Care Marbleizer Name Role Phone Yg Lee MD Primary Care Provider [phone] Allergies Active Allergy Reactions Criticality Noted Date [...] (Dexilant) 60 mg Delayed Release capsule Lot: [id number] Ex: 10/21 Qty: 8 5 Capsule Active [...] on 12/04/2024 fluticasone propionate (FLONASE) 50 mcg/spray [place], Suspension nasal inhaler USE 1 OR 2 [...] Active apixaban (ELIQUIS) 5 mg tablet Lot: [id number] ex: 05/2025 qty: 8 14 Tablet Active [...] t be different from the original. [facility] [id number] 09/01/22 [id number] 12/04/24 Problem Noted Date Diagnosed [...] Type Department Care Team Description 12/18/2024 Refill [facility] Care [place] [address] [address] [place] [address] Yg Lee MD Essential hypertension, benign 12/06/2024 Telephone [place] [address] [address] [place] [address] Yg Lee MD Needs Orders Written 12/04/2024 3:00 PM CDT Office Visit [address] [place] [phone] Yg Lee MD Pulmonary nodule (Primary Dx); Atrial fibrillation, unspecified type ([facility]); Moderate mitral regurgitation; Essential hypertension, benign; Other specified hypothyroidism; Other hyperlipidemia; Abnormal glucose; Hypomagnesemia; Vitamin D deficiency; Vitamin B12 deficiency (non anemic); Other osteoporosis with current pathological fracture with delayed healing, subsequent encounter; Menopause; Gastroesophageal reflux disease without esophagitis; Psoriatic arthritis ([facility]); Pulmonary hypertension ([facility]); Other emphysema ([facility]) 12/03/[address] [place] [address] Yg Lee MD 11/27/2024 External Device Data STL ABSTRACTION Provider, Abstract 11/19/2024 Abstract [place] [address] [facility] [address] [phone] Yg Lee MD 11/13/[address] [address] Yg Lee MD Needs Orders Written 11/05/2024 External Device Data STL ABSTRACTION Provider, Abstract 10/17/2024 External Device Data STL ABSTRACTION Provider, Abstract 10/15/2024 Refill [place] [address] [facility] [address] [place] [phone] Yg Lee MD Gastroesophageal reflux disease without esophagitis 10/12/[address] [place] [address] Provider, Abstract 10/05/2024 Telephone [place] [address] [facility] [address] [place] [address] Yg Lee MD Needs Appointment from Last 3 Months Immunizations Immunization Administration Dates Next Due (ADACEL/BOOSTRIX)(10 YR UP) TDAP VACCINE, 0.5ML, IM 06/15/2011 (PFIZER)(12 YR UP) COVID-19 VACCINE - EMERGENCY USE AUTHORIZATION, MRNA, [id number](PF) 30 MCG/0.3 ML IM SUSP 04/22/2021,04/01/2021 (PNEUMOVAX 23)(50 YRS UP) PN EUMOCOCCAL POLYSACCHARIDE (PPV23) 0.5 ML, IM 07/18/2017,06/15/2011 (PREVNAR 13)(6 WKS UP) PNEUM OCOCCAL CONJUGATE (PCV13) 0.5 ML, IM 10/20/2020 (PREVNAR 20)(6 WKS UP) PNEUM OCOCCAL CONJUGATE VACCINE 20-VALENT (PCV20), POLYSACCHARIDE [id number] CONJUGATE, ADJUVANT 0.5 ML (PF) IM 02/23/2023 [...] on file Legal Sex Female 6:04 AM ASL INTERPRETER Gender Identity Not on file Sexual Orientation [...] Description 06/17/2025 11:20 AM CDT Office Visit [facility] Primary Care [address] [place] [address] Yg Lee MD 7 [facility] [address] [place] [address] Health Maintenance Due Date Last [...] history exists Medical Devices Implanted Type Area Chemical Sprayer Device Identifier Shelf Expiration Date Model / Serial / Lot Stent Pncrtc Frmn Flx 5fr 5cm 6552 - [id number] Implanted:Qty: 1 on 02/24/2018 by John White MD at [facility] Stent N/A: Pancreas [employer] [id number] 09/29/2022 6552 / / [id number] Procedures Procedure Name Priority Date/Time Associated Diagnosis Comments HEMOGLOBIN A1C Routine 06/15/2024 9:16 AM CDT Abnormal glucose MAMMO 3D KIRILL SCREEN BILAT W OR WO CAD Routine 05/16/2024 1:15 PM CDT Screening mammogram, encounter for from Last 3 Months or Most Recently Relevant to Health Maintenance Results * HEMOGLOBIN A1C (06/15/2024 9:16 AM CDT) HEMOGLOBIN A1C 5.2 <5.7 % of total Hgb [facility]UPPTVRenee Santana Comment: For the purpose of screening for the presence of diabetes: <5.7% Consistent with the absence of diabetes 5.7-6.4% Consistent with increased risk for diabetes (prediabetes) > or =6.5% Consistent with diabetes This assay result is consistent with a decreased risk of diabetes. Currently, no consensus exists regarding use of hemoglobin A1c for diagnosis of diabetes in children. According to [place] Diabetes Association (ADA) guidelines, hemoglobin A1c <7.0% represents optimal control in non- diabetic patients. Different metrics may apply to specific patient populations. Standards of Medical Care in Diabetes(ADA). ESTIMATED AVERAGE GLUCOSE (MG/DL) 103 mg/dL AudiamAmos Santana ESTIMATED AVERAGE GLUCOSE (MMOL/L) 5.7 mmol/L [facility]iam[facility] Santana Comment: FASTING:YES FASTING: YES [facility] [address] [place] [address] Ceferino Dasilva Vo Blood 06/15/2024 9:16 AM CDT 06/15/2024 9:17 AM CDT us Yg Lee MD CHEMISTRY ORDERABLES Final Re sult [facility] [phone] [facility] [address] [place] [address] * MAMMO 3D KIRILL SCREEN BILAT W [...] on file Type:RX Commercial Address: BISHOP ADAN [place] [facility] Advance Directives For more information, please contact: [phone] Documents on File Type Date Recorded Patient Pulp And Paper Tester Expl anation Advance Directive Living Will 10/20/2020 [...] 12:41 PM 10/31/2015 7:49 PM Care Teams Marbleizer Relationship Specialty Start Date End Date Yg Lee MD PCP - General Internal Medicine 12/20/18
--- OUTSIDE RECORDS SUMMARY | 2024-12-20 08:51 | XMS_ITS | Clinical Summary ---
Author Organization [facility] Address [address] [place] [address] Care Team Providers Care Flask Carrier Name Role Phone Shandra Ruffin Malcolm WISDOM-NURSING STUDENT Primary Care Provider Source Comments [facility],non-owned Affiliates and Associated Physician Practices is amultiple site organization consisting of ambulatory clinics and hospital sitesin [place], [place], [place] and [place]. This disclosure is being madepursuant to the Care Everywhere program and may not contain all information available regarding this patient. Last updated 18.[facility] Allergies Active Allergy Reactions Criticality Noted Date [...] (AF LURIA, FLUZONE TRIVALENT; 6MO+) (IIV3) 06/16/2016,06/11/2015,06/01/2014,2012,06/14/2012,06/01/2011 CovFundly primary monoval ent 12+ yr 0.3mL Purple [...] on file Legal Sex Female 1:04 PM MIRROR INSPECTOR Gender Identity Not on file Sexual Orientation [...] Comments COMPREHENSIVE METABOLIC PANEL 08/31/2022 9:26 AM MIRROR INSPECTOR from Last 3 Months or Most Recently Relevant to Health Maintenance Results * (ABNORMAL) COMPREHENSIVE METABOLIC PANEL (08/31/2022 9:26 AM MIRROR INSPECTOR) Glucose 105(H) 65 - 99 mg/dL [facility] [...] 29 U/L [facility] Comment: Test Performed at: [facility] [address] [place] [address] LIUSA LAWRENCE DO,MPH 08/31/2022 9:26 AM MIRROR INSPECTOR 08/31/2022 9:27 AM MIRROR INSPECTOR us Mitchell Zamarripa MD LAB - CHEMISTRY ORDERABLES Final Result [facility] [address] [place] [address] from Last 3 Months or Most Recently Relevant to Health Maintenance Insurance [facility] MEDICARE ANTHEM ANTHEM Advance Directives * FULL RESUSCITATION (Latest Code Status on File) Date Activated Date Inactivated Comments 11/08/2011 12:50 PM 11/10/2011 12:21 AM Care Teams Flask Carrier Relationship Specialty Start Date End Date Shandra Ruffin, POWER LINEMAN-NURSING STUDENT [address] [place] [address] PCP - General 04/02/22
--- OUTSIDE RECORDS SUMMARY | 2024-12-20 08:52 | XMS_ITS | Encounter Summary ---
Author Organization [facility] Healthcare Address [address] [place] [address] Care Team Providers Care General Practice Name Role Phone Yg Lee MD Primary Care Provider + Mitchell Zamarripa MD Unavailable [phone] Brit More NP Unavailable [phone] Cliff Ronquillo NP Unavailable [phone] Dick Aguilar Unavailable [phone] Gavin Sewell MD Unavailable [phone] Encounter Details Date Type Department Care Team (Late st Contact Info) Description 12/14/2021 Telephone [facility] [address] [place] [address] Fariha Hampton, RT Social History Tobacco Use Types Packs/Day Years Used Date Smoking Tobacco: Former Smokeless Tobacco: Never Alcohol Use Standard Drinks/Week Comments Yes 0 (1 standard drink = 0.6 oz pur e alcohol) occasional Comments No Sex and Gender Information Value Date Recorded Sex Assigned at Not on file Legal Sex Female 11:50 PM SYRUP MIXER Gender Identity Not on file Sexual Orientation [...] COVID: Suspected 07/22/2024 07/22/2024 07/22/2024 9:25 AM SYRUP MIXER documented as of this encounter Care Teams General Practice Relationship Specialty Start Date End Date Yg Lee MD PCP - General Internal Medicine 08/19/20 Mitchell Zamarripa MD Referring Physician Rheumatology 03/11/22 Brit More NP Nurse Practitioner Cardiovascular Disease 03/11/22 Cliff Ronquillo NP [address] [place] [address] [address] [facility] [place] [address] Nurse Practitioner Nurse Practitioner 05/05/22 Dick Aguilar PA [address] [place] [address] DR [facility] [place] [address] Physician Service Parts Driver Orthopedic Surgery 11/11/22 Gavin Sewell MD [address] [place] [address] DR CARLOS QUINTERO [address] [place] [address] Surgeon Orthopedic Surgery 12/24/22 documented as of this encounter
--- OUTSIDE RECORDS SUMMARY | 2024-12-20 08:52 | XMS_ITS ---
Author Organization [facility] Address [address] [place] [address] Phone Care Team Providers Care Sodium Chlorite Operator Name Role Phone JAM MCDONNELL PA-C Primary Care Provider [phone] Plan of Treatment No Plan of Treatment [...] On 07/08/2010 5:57PM By ALVIN BASS ; [facility] Premarin 1.25 MG OR TABS 09/02/2009 - 08/28/2010 Provi anastasia: Diagnosis: Last Documented On 11/11/2009 9:36AM By BONNIE MORALES ; [facility] Premarin 1.25 MG OR TABS 07/23/2008 - 07/18/2009 Provi anastasia: Diagnosis: Last Documented On 11/11/2009 9:37AM By BONNIE MORALES ; [facility] Amoxicillin 500 MG OR TABS 07/03/2007 - 07/13/2007 Pro vider: Diagnosis: Last Documented On 11/11/2009 9:38AM By BONNIE MORALES ; [facility] Premarin 1.25 MG OR TABS 07/05/2006 - 06/30/2007 Provi anastasia: Diagnosis: Last Documented On 11/11/2009 9:39AM By BONNIE MORALES ; [facility] Premarin 1.25 MG OR TABS 08/27/2005 - 07/23/2006 Provi anastasia: Diagnosis: Last Documented On 11/11/2009 9:40AM By BONNIE MORALES ; [facility] Medications Administered Includes: Administered Medications in patient's chart No Administered Medications Recorded Results Includes: Results from 12/21/2023 through 12/20/2024 No Results Recorded For Specified Dates History of Present Illness History of Present Illness not supported for this document type No History of Present Illness Recorded Social History Description Last Updated 11/11/2009 Last Documented On 0 9:43AM ; [facility] Exercise frequency was three times/week 11/11/2009 Last Documented On 0 9:43AM ; [facility] Exercising regularly 11/11/2009 Last Documented On 0 9:43AM ; [facility] Sexually active 11/11/2009 Last Documented On 0 9:43AM ; [facility] Sexually active with 1 partners in the l ast year 11/11/2009 Last Documented On 0 9:43AM ; [facility] Smoking Status Unknown Medical History Includes: Medical History in patient's chart Description Last Updated HYSTERECTOMY ~BTL 11/11/2009 Last Documented On 0 9:43AM ; [facility] 2 living children 11/11/2009 Last Documented On 0 9:43AM ; [facility] A mammogram was performed 11/11/2009 Last Documented On 0 9:43AM ; [facility] A Pap smear was performed 11/11/2009 Last Documented On 0 9:43AM ; [facility] weight: was 7.4 lbs 11/11/2009 Last Documented On 0 9:43AM ; [facility] Breast problems 11/11/2009 Last Documented On 0 9:43AM ; [facility] Delivery date 1983 11/11/2009 Last Documented On 0 9:43AM ; [facility] Duration of labor: was six hr 11/11/2009 Last Documented On 0 9:43AM ; [facility] Gestational age: was 40 weeks 11/11/2009 Last Documented On 0 9:43AM ; [facility] 2 11/11/2009 Last Documented On 0 9:43AM ; [facility] History of the 2nd : 11/11/2009 Last Documented On 0 9:43AM ; [facility] Last mammogram date: 07/19/08 11/11/2009 Last Documented On 0 9:43AM ; [facility] Last pap smear date 200711/11/2009 Last Documented On 0 9:43AM ; [facility] Oral contraceptives 11/11/2009 Last Documented On 0 9:43AM ; [facility] Status post tubal ligation 11/11/2009 Last Documented On 0 9:43AM ; [facility] Family History Includes: Family History in patient's chart Description Last Updated Family history of Cancer 11/11/2009 Last Documented On 0 9:43AM ; [facility] Family history of thyroid disease 2009 Last Documented On 0 9:43AM ; [facility] Family medical history of high blood pre ssure 11/11/2009 Last Documented On 0 9:43AM ; [facility] Review of Systems Review of [...] Dates 1 - [employer] [id number] Guevara Clinical Notes Includes: Signed Clinical Notes starting from 09/17/2022 No Clinical Notes Recorded
--- OUTSIDE RECORDS SUMMARY | 2024-12-20 08:52 | XMS_ITS | Clinical Summary ---
Author Organization [facility] Address [address] [place] [address] Phone Care Team Providers Care Network Security Engineer Name Role Phone JAM MCDONNELL PA-C Primary Care Provider [phone] Reason for Visit and Chief Complaint HEART [...] Diagnosis HEART CENTER CHECK UP TIFFANY HOWARD [facility]- 4 10:58AM 11:28AM Insurance Includes: Active Insurance Policies Plan Name Member ID Group # Subscriber Relationship Effect cyn Dates 1 - [employer] [id number] NIGHAT DELANEY Self Clinical Notes Includes: Clinical Notes from this encounter No Clinical Notes Recorded
--- OUTSIDE RECORDS SUMMARY | 2024-12-20 08:53 | XMS_ITS | Encounter Summary ---
Author Organization [facility] Address [address] [place] [address] Care Team Providers Care Catastrophe Claims Supervisor Name Role Phone Yg Lee MD Primary Care Provider [phone] Reason for Referral * CT Scan (Routine) - Pending Review Specialty Diagnoses / Procedures Referred By Mariaa t Referred To Contact Diagnoses Pulmonary nodules Procedures CT CHEST W CONTRAST Yg Lee MD [address] [place] [address] [address] [place] [address] Phone: tel: fax: [address] [address] Phone: tel: fax: Referral ID Status Reason Start Date Expiration Date V isits Requested Visits Authorized [id number] Pending Review 11/13/2024 12/14/2025 1 1 Reason for Visit * Reason Comments Needs Orders Written Encounter Details Date Type Department Care Team (Late st Contact Info) Description 11/13/2024 Telephone [facility] Primary Care [address] [place] [address] Yg Lee MD [address] [place] [address] [address] [place] [address] Needs Orders Written Social History [...] on file Legal Sex Female 6:04 AM HOME CARE GIVER Gender Identity Not on file Sexual Orientation Not on file Occupation Industry Job Start Date Job End Date Not on file Not on file Not on file Not on file documented as of this encounter Miscellaneous Notes * Telephone Encounter - Alicia Yost PCA - 11/13/2024 2:24 PM CDT Called and spoke with patient and faxed to the [facility] and I let patient know that if she has not heard from them then to give them a call * Telephone Encounter - Yg Lee MD - 11/13/2024 12:49 PM CDT Order placed * Telephone Encounter - Yudi Montiel - 11/13/2024 10:38 AM CDT Copied from [facility] #[id number]. Topic: CPA Information Request - Order or Referral Request >> Nov 13, 2024 10:36 AM Yudi Duran wrote: Caller Name: Antoinette Da Silva Patient/Caregiver Callback Number: Patient Contact Information: [phone] Call Notes: order for ct scan with [...] Description 06/17/2025 11:20 AM CDT Office Visit [facility] [place] [address] Yg Lee MD [address] [place] [address] [address] [place] [id number] Scheduled Orders Name Type Priority Associated Diagnoses Orde r Schedule CT CHEST W CONTRAST Imaging Routine Pulmonary nodules 1 Occurrences starting 11/13/2024 until 11/13/2025 documented as of this encounter Visit Diagnoses Diagnosis Pulmonary nodules- Primary Other nonspecific abnormal finding of lung field documented in this encounter Care Teams Catastrophe Claims Supervisor Relationship Specialty Start Date End Date Yg Lee MD PCP - General Internal Medicine 12/20/18 documented as of this encounter
--- OUTSIDE RECORDS SUMMARY | 2024-12-20 08:53 | XMS_ITS | Encounter Summary ---
Author Organization [facility] Healthcare Address [address] [place] [address] Care Team Providers Care Patient Carrier Name Role Phone Yg Lee MD Primary Care Provider + Mitchell Zamarripa MD Unavailable [phone] Brit More HEALTH EDUCATION TEACHER Unavailable [phone] Cliff Ronquillo NP Unavailable [phone] Dick Aguilar Unavailable [phone] Gavin Sewell MD Unavailable [phone] Reason for Visit * Reason Comments Wound Check Encounter Details Date Type Department Care Team (Late st Contact Info) Description 12/19/2024 9:10 PM CDT - 12/20/2024 7:45 AM CDT Emergency [facility] Emergency Department [address] [place] [address] Puma Mobley MD [address] [place] [id number] Surgical wound infection (Primary Dx); Hyponatremia; Hypokalemia Discharge Disposition: Discharge to not defined facility Social History Tobacco Use Types Packs/Day Years Used Date Smoking Tobacco: Former Cigarettes Smokeless Tobacco: Never Alcohol Use Standard Drinks/Week [...] How often do you attend chur or voodoo services? Never 12/23/2022 Do you belong to any clubs o r organizations such as adventist groups, unions, fraternal or athletic groups, or [...] staff should administer the PHQ-9) 0 11/23/2023 [facility] - Occupational [...] money to buy more. Never true 12/24/19 Within the past 12 months, t he [...] making you feel afraid or unsafe? 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 Gender Identity Not on file Sexual Orientation Not on file documented as of this encounter Last Filed Vital Signs Vital Sign Reading Time Taken Comments Blood Pressure 178/91 12/20/2024 6:30 AM CDT Pulse 82 12/20/2024 6:30 AM CDT Temperature 36.3 C (97.3 F) 12/19/2024 2:15 PM CDT Respiratory Rate 18 12/19/2024 4:11 PM CDT Oxygen Saturation 96% 12/20/2024 6:30 AM CDT Inhaled Oxygen Concentration - - Weight 63.5 kg (140 lb) 12/19/2024 2:15 PM CDT Height 152.4 cm (5') 12/19/2024 2:15 PM CDT Body Mass Index 27.34 12/19/2024 2:15 PM CDT documented in this encounter Medications at Time of Discharge alendronate (FOSAMAX) 70 mg tablet Take 150 mg by mouth every 30 (thirty) days 10/16/2020 ALPRAZolam (XANAX) 0.25 mg tablet Take 1 tablet (0.25 mg total) by mouth 3 (three) times a day as needed 1 03/30/2018 apixaban (ELIQUIS) 5 mg tabletIndications: atrial fibrillation Take 1 tablet (5 mg total) by mouth 2 (two) times a day 60 tablet 3 11/25/2023 aspirin 81 mg enteric coated tabletIndications: prevention of thrombosis Take 1 tablet (81 mg total) by mouth 2 (two) times a day for 28 days Following 4 weeks you may resume taking both at the same time 56 tablet 12/24/2022 celecoxib (CeleBREX) 100 mg capsule TAKE 1 CAPSULE(100 MG) BY MOUTH TWICE DAILY 60 capsule 2 09/20/2022 digoxin (LANOXIN) 250 mcg (0.25 mg) tablet Take 1 tablet (250 mcg total) by mouth daily 30 tablet 3 11/25/2023 dilTIAZem XR (CARDIZEM CD,DILACOR XR) 240 mg 24 hr capsule Take 1 capsule (240 mg total) by mouth daily 30 capsule 3 11/25/2023 docusate sodium (Colace) 100 mg capsuleIndications :constipation Take 1 capsule (100 mg total) by mouth 2 (two) times a day for 14 days 28 capsule 09/10/[address] (CYMBALTA) 60 mg capsule TAKE 1 CAPSULE(60 MG) BY MOUTH DAILY 04/26/2019 isosorbide mononitrate ER (IMDUR) 60 mg 24 hr tablet Take 1 tablet (60 mg total) by mouth daily levothyroxine (SYNTHROID) 100 mcg tablet Take 1 tablet (100 mcg total) 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 08/14/2021 omeprazole (PriLOSEC) 40 mg capsule 07/18/2024 rosuvastatin (CRESTOR) 5 mg tablet Take 1 tablet (5 mg total) by mouth daily 11/14/2022 documented as of this encounter Discharge Disposition Disposition Code Departure Means Destination Comment s Discharge to not defined facility [facility] documented in this encounter ED Notes * Puma Mobley MD - 12/19/2024 11:06 PM CDT HPI Chief Complaint Patient presents with Wound Check HPI Patient is a 64-year-old woman past medical history of rheumatoid arthritis osteopenia fibromyalgiapersistent atrial fibrillation on Eliquis 5 mg b.i.d. on digoxin and diltiazem status post externalfixation of a broken wrist on November 23 who presents to the ED for wound drainage from the external fixation device. Patient notes that she has been having some redness swelling and drainage from the external fixation device for about 1 week. She reports some chills she had called the surgeon was given an antibiotic unfortunately has not allergy to sulfa and stopped taking about 2 days ago she also an allergy to Cipro. She developed hives. She did not call her surgeon but came here for evaluation. She says the pain is an 8/10 mostly located in the volar aspect of arm there was some pus drainage that has been leaking down her arm today. Patient History: Past Medical History: Diagnosis Date Anxiety Arthritis Atrial fibrillation (HCC) Depression GERD (gastroesophageal reflux disease) Heart murmur Hypercholesteremia Hypertension Hypothyroidism Osteoporosis Other specified anxiety disorders Depression with anxiety - (Added by TW Conv) Personal history of other diseases of the circulatory system History of hypertension - (Added by TW Conv) Pneumonia PONV (postoperative nausea and vomiting) Psoriatic arthritis (HCC) Raynaud's disease Rheumatic tricuspid insufficiency Tricuspid regurgitation - (Added by TW Conv) Sleep apnea Stroke (HCC) TIA's Thyroid disease Review of Systems Review of Systems Constitutional: Negative for chills and fever. HENT: Negative for ear pain and sore throat. Eyes: Negative for pain and visual disturbance. Respiratory: Negative for cough and shortness of breath. Cardiovascular: Negative for chest pain and palpitations. Gastrointestinal: Negative for abdominal pain, diarrhea, nausea and vomiting. Genitourinary: Negative for dysuria and hematuria. Musculoskeletal: Positive for myalgias (pain of the right distal upper extremity area of the fixation device). Negative for arthralgias and back pain. Skin: Positive for wound. Negative for color change and rash. Neurological: Negative for seizures and syncope. Psychiatric/Behavioral: Negative for agitation and behavioral problems. All other systems reviewed and are negative. Physical Exam ED Triage Vitals [12/19/24 1415] Temp Pulse Resp BP SpO2 36.3 ??C (97.3 ??F) 85 16 139/80 97 % Temp src Heart Rate Source Patient Position BP Location FiO2 (%) Temporal -- -- -- -- Height Height Method Weight Weight Method 1.524 m (5') Stated 63.5 kg (140 lb) Stated Physical Exam Vitals and nursing note reviewed. Constitutional: General: She is not in acute distress. Appearance: She is well-developed. HENT: Head: Normocephalic and atraumatic. Eyes: Conjunctiva/sclera: Conjunctivae normal. Cardiovascular: Rate and Rhythm: Normal rate and regular rhythm. Heart sounds: No murmur heard. Pulmonary: Effort: Pulmonary effort is normal. No respiratory distress. Breath sounds: Normal breath sounds. Abdominal: Palpations: Abdomen is soft. Tenderness: There is no abdominal tenderness. There is no guarding or rebound. Musculoskeletal: General: No swelling. Cervical back: Neck supple. Right lower leg: No edema. Left lower leg: No edema. Skin: General: Skin is warm and dry. Capillary Refill: Capillary refill takes less than 2 seconds. Findings: Lesion (some pus drainage from where there is metal entering into the dorsal aspect of the right upper extremity) present. Comments: Good pulses in the right upper extremity there swelling in the upper extremity distal aspect tenderness on palpation particularly on the volar aspect of the right upper extremity Neurological: General: No focal deficit present. Mental Status: She is alert and oriented to person, place, and time. Cranial Nerves: No cranial nerve deficit. Sensory: No sensory deficit. Motor: Weakness (of the right upper extremity equipment service lead strength secondary to pain) present. Psychiatric: Mood and Affect: Mood normal. Behavior: Behavior normal. MDM Patient is a 64-year-old woman past medical history of rheumatoid arthritis osteopenia fibromyalgiapersistent atrial fibrillation on Eliquis 5 mg b.i.d. on digoxin and diltiazem status post externalfixation of a broken wrist on November 23 who presents to the ED for wound drainage from the external fixation device. Patient notes that she has been having some redness swelling and drainage from the external fixation device for about 1 week. She reports some chills she had called the surgeon was given an antibiotic unfortunately has not allergy to sulfa and stopped taking about 2 days ago she also an allergy to Cipro. She developed hives. She did not call her surgeon but came here for evaluation. She says the pain is an 8/10 mostly located in the volar aspect of arm there was some pus drainage that has been leaking down her arm today. Workup today significant electrolyte derangements particularly the sodium level 122 compared to 3 months ago which was in the low 130s K level 3.0 with a normal magnesium both of these were repleted with a normal saline bolus with a 40 mEq KCl hyponatremia labs were pulled we are still waiting on those results UA was negative for any UTI or ketones were abnormalities and specific gravity there does not appear to be an infectious process here with a normal white count hemoglobin level appears neida around baseline no thrombocytopenia the x-ray of the hand and radius did show there being concern for possible osteomyelitis. We spoke to the Orthopedics provider who felt that this was likely notosteomyelitis given the close proximity to the recent surgery but recommended giving Keflex. Given that there was concern for osteomyelitis we did speak to the orthopedic provider again who recommended having the patient admitted [facility] with the Orthopedics consulted. We did speak to Dr. Barnhart who accepted the patient for this electrolyte derangement and possible infection postoperatively. We will be transferring immediately Medical Decision Making Amount and/or Complexity of Data Reviewed Labs: ordered. Decision-making details documented in ED Course. Radiology: ordered. Decision-making details documented in ED Course. Risk OTC drugs. Prescription drug management. ED Course as of 12/20/24 0608 Time: 12/20 2151 Comment: We will contact Dr. Rendon orthopedic surgeon over at [facility] By: Puma Mobley MD Time: 12/19 2238 Comment: Spoke to Dr. Hughes recommendation is to start the patient on Keflex and to utilize half-strength peroxide to clean the pins. Instructed to call the Orthopedics office in the morning. By: Puma Mobley MD Time: 12/20 2239 Value: XR Hand Right 3 or More Views Comment: No definite acute osseous abnormality is seen of the hand. The lunate bone appears particularly osteopenic which could raise concern for osteomyelitis. Shortening of the radius relative to the ulna is noted. By: Puma Mobley MD Time: 12/20 2239 Value: XR Radius Ulna Right 2 Views Comment: Findings are concerning for osteomyelitis of the distal radius. Fractures of the distal radius and ulna. External fixation device. By: Puma Mobley MD Time: 12/19 2240 Comment: We will reach back out to Dr. Hughes to determine if there was need to treat for osteomyelitis By: Puma Mobley MD Time: 12/19 2241 Comment: Currently patient is not meeting any sepsis criteria blood cultures have already been drawn By: Puma Mobley MD Time: 12/19 2241 Value: Comprehensive metabolic panel(!!): Sodium 122(!) Potassium, pl 3.0(!!) Chloride 81(!) CO2 27 Anion gap 14 BUN 7 Creatinine 0.65 Glucose 107 Calcium 9.4 Bilirubin, total 0.6 Protein, pl 7.6 Albumin 3.8 Alk phos 237(!) ALT 33 AST 29 Comment: Hypokalemia hyponatremia that seems to be have decrease in the last 3 months she does not have any symptoms for altered mental status dysphagia dysarthria or any paresis there was an elevated alkaline phos likely secondary to the surgery no kidney dysfunction or liver dysfunction By: Puma Mobley MD Time: 12/20 2311 Value: CBC with auto differential(!): WBC 6.97 Hgb 11.3(!) Hct 33.7(!) Plt 290 MPV 8.5(!) RBC 4.25 MCV 79.3(!) MCH 26.6(!) MCHC 33.5 RDW CV 16.1(!) RDW SD 45.8 NRBC abs 0.00 Comment: No white count not meeting sirs criteria hemoglobin level around baseline no thrombocytopenia By: Puma Mobley MD Time: 12/19 2312 Value: Comprehensive metabolic panel(!!): Sodium 122(!) Potassium, pl 3.0(!!) Chloride 81(!) CO2 27 Anion gap 14 BUN 7 Creatinine 0.65 Glucose 107 Calcium 9.4 Bilirubin, total 0.6 Protein, pl 7.6 Albumin 3.8 Alk phos 237(!) ALT 33 AST 29 Comment: (Reviewed) By: Puma Mobley MD Time: 12/19 2312 Value: Erythrocyte sedimentation rate(!): Erythrocyte sedimentation rate 135(!) Comment: Elevated likely secondary to recent surgery but given that there is concerns for osteomyelitis we will speak with the surgeon By: Puma Mobley MD Time: 12/19 2357 Value: TSH: TSH 1.32 Comment: Within normal limits By: Puma Mobley MD Time: 12/20 0028 Comment: Spoke to and told him about our concern about the hyponatremia and potential infection a again he does not believe the patient is hosting osteomyelitis given that there such as low time span between the surgery in today. But still recommended Keflex and then transferred over to [place] to be admitted under medicine for the hyponatremia with ortho consulting we will reach out to the transfer line By: Puma Mobley MD Time: 12/20 0243 Value: Urinalysis reflex to microscopic and culture Urine, bladder(!): Color, ur Yellow Clarity, ur Turbid(!) Specific gravity, ur 1.010 pH, urine 6.5 Protein, ur ql Trace Glucose, ur ql Negative Ketones, ur Negative Bilirubin, ur Negative Blood, ur Negative Urobilinogen, ur <2.0 Nitrite, ur Negative Leukocyte esterase, ur Negative UA reflex comment Reflex conditions for microscopic UA and culture not met. Comment: Negative for UTI By: Puma Mobley MD Final diagnoses: Surgical wound infection Hyponatremia Hypokalemia Puma Mobley MD 12/20/24 0608 * Ritu Oden RN - 12/19/2024 2:13 PM CDT Pt to ED for c/o redness, swelling and drainage around her external fixation device on her right arm x 1 week. Pt reports she broke her wrist on 11/23 and had this placed. Pt has been on antibiotics. Pt arm is warm to the touch and swollen. Pt reports chills. documented in this encounter Plan of Treatment Pending Results Name Type Priority Associated Diagnoses Date /Time Blood culture Blood Microbiology STAT 4:03 PM CDT Blood culture Blood Microbiology STAT 4:09 PM CDT Osmolality, blood Lab STAT 025 9:42 PM CDT Osmolality, urine Lab STAT 025 1:55 AM CDT Scheduled Orders Name Type Priority Associated Diagnoses Orde r Schedule Osmolality, blood Lab STAT STAT fo r 1 Occurrences starting 12/19/2024 until 12/19/2024 Osmolality, urine Lab STAT STAT fo r 1 Occurrences starting 12/19/2024 until 12/19/2024 documented as of this encounter Procedures Procedure Name Priority Date/Time Associated Diagnosis Comments URINALYSIS AND REFLEX TO MICROSCOPIC AND CULTURE STAT 12/20/2024 1:55 AM CDT SODIUM, URINE, RANDOM STAT 12/20/2024 1:55 AM CDT POTASSIUM, URINE, RANDOM STAT 12/20/2024 1:55 AM CDT CHLORIDE, URINE, RANDOM STAT 12/20/2024 1:55 AM CDT XR HAND RIGHT 3 OR MORE VIEWS ED 12/19/2024 10:05 PM CDT XR RADIUS ULNA RIGHT 2 VIEWS ED 12/19/2024 10:05 PM CDT TSH STAT 12/19/2024 9:42 PM CDT MAGNESIUM Routine 12/19/2024 9:42 PM CDT BLOOD CULTURE STAT 12/19/2024 4:09 PM CDT SEPSIS LACTATE WITH REFLEX STAT 12/19/2024 4:03 PM CDT EGFR STAT 12/19/2024 4:03 PM CDT DIFFERENTIAL AUTO STAT 12/19/2024 4:0 3 PM CDT CBC WITH AUTO DIFFERENTIAL STAT 12/19/2024 4:03 PM CDT BLOOD CULTURE STAT 12/19/2024 4:03 PM CDT ERYTHROCYTE SEDIMENTATION RATE STAT 12/19/2024 4:03 PM CDT CRP (ACUTE PHASE) STAT 12/19/2024 4:0 3 PM CDT COMPREHENSIVE METABOLIC PANEL STAT 12/19/2024 4:03 PM CDT documented in this encounter Results * Potassium, urine, random (12/20/2024 1:55 AM CDT) Potassium conc, ur 15.5 mmol/L Comment: Interpretive Data No reference range established. Current interpretive data was last revised 2019. Urine 12/20/2024 1:55 AM CDT 12/20/2024 5:56 AM CDT Puma Mobley MD LAB URINE ORDERABLES Final Re sult Performing Organization Address [facility] Co de Phone Number JL PHILLIPS (YAKIMA) [address] [place] [address] [place] [address] * Chloride, urine, random (12/20/2024 1:55 AM CDT) Chloride, ur 46 mmol/L Comment: Interpretive Data No reference range established. Current interpretive data was last revised 2019. Urine 12/20/2024 1:55 AM CDT 12/20/2024 5:56 AM CDT Narrative JL PHILLIPS (YAKIMA) - 12/20/2024 6:16 AM CDT No normal range Puma Mobley MD LAB URINE ORDERABLES Final Re sult Performing Organization Address [facility] de Phone Number JL PHILLIPS (YAKIMA) [address] [place] [address] [place] [address] * Sodium, urine, random (12/20/2024 1:55 AM CDT) Sodium, ur 48 mmol/L Comment: Interpretive Data No reference range established. Current interpretive data was last revised 2019. Urine 12/20/2024 1:55 AM CDT 12/20/2024 5:56 AM CDT Narrative JL PHILLIPS (YAKIMA) - 12/20/2024 6:16 AM CDT No normal range Puma Mobley MD LAB URINE ORDERABLES Final Re sult Performing Organization Address [facility] Co de Phone Number JL PHILLIPS (YAKIMA) [address] [place] [address] [place] [address] * (ABNORMAL) Urinalysis reflex to microscopic and culture Urine, bladder (12/20/2024 1:55 AM CDT) Color, ur Yellow Yellow Clarity, ur Turbid(A) Clear [facility] ([place]ORACIO) Specific gravity, ur 1.010 1.003 - 1.030 [facility] ([place]) pH, urine 6.5 [facility] ([place]) Comment: Interpretive Data U rine pH is affected by diet, medications, systemic acid-base disturbances, and renal tubular function. pH may affect urinary stone formation. For example, urine pH below 6.0 may help reduce the tendency for calcium phosphate stones and pH greater than 6.0 may reduce the tendency for uric acid stone formation. Source: [facility] Current Interpretive Data was last revised on 2017 Protein, ur ql Trace Negative [facility] ([place]) Glucose, ur ql Negative Negative [facility] ([place]) Ketones, ur Negative Negative [facility] ([place]) Bilirubin, ur Negative Negative [facility] ([place]) Blood, ur Negative Negative [facility] ([place]) Urobilinogen, ur <2.0 <2.0 mg/dL [facility] ([place]) Nitrite, ur Negative Negative [facility] ([place]) Leukocyte esterase, ur Negative Negative [facility] ([place]) UA reflex comment Reflex conditions for microscopic UA and culture not met. [facility] ([place]) Urine, bladder 12/20/2024 1: 55 AM CDT 12/20/2024 2:00 AM CDT us Puma Mobley MD LAB MICROBIOLOGY - GENERAL OR DERABLES Final Result JL ALAN (HORACIO) [address] [facility] [place] [address] * XR Hand Right 3 or More Views (12/19/2024 10:05 PM CDT) Anatomical Region Laterality Modality Upper Extremities, Hand Right Computed Radiography 12/19/2024 10:1 5 PM CDT Narrative 12/19/2024 10:17 PM CDT EXAM DESCRIPTION: XR HAND RIGHT 3 OR MORE VIEWS REASON FOR STUDY: pain post surgery Pt to ED for c/o redness, swelling and drainage around her external fixation device on her right arm x 1 week. Pt reports she broke her wrist on 11/23 and had this placed. Pt has been on antibiotics. Pt arm is warm to the touch and swollen. Pt reports chills. TECHNIQUE: 3 radiographic view(s) of the right hand . COMPARISON: None FINDINGS: Overlying external fixating hardware obscures some of the anatomy. The bones are osteopenic. No definite fracture or dislocation is seen of the hand or carpal bones. The lunate bone appears particularly osteopenic which could raise concern for osteomyelitis. Soft tissue swelling of the wrist is suspected. Shortening of the radius relative to the ulna is noted. IMPRESSION: No definite acute osseous abnormality is seen of the hand. The lunate bone appears particularly osteopenic which could raise concern for osteomyelitis. Shortening of the radius relative to the ulna is noted. THIS IS AN ELECTRONICALLY VERIFIED FINAL REPORT 12/19/2024 10:17 PM - Electronically signed by Chepe Gibbons M.D. KH: SAHARA Report ID: [id number] Reading Location: [id number] Procedure Note Chepe Gibbons MD - 12/19/2024 EXAM DESCRIPTION: XR HAND RIGHT 3 OR MORE VIEWS REASON FOR STUDY: pain post surgery Pt to ED for c/o redness, swelling and drainage around her externalfixation device on her right arm x 1 week. Pt reports she broke her wrist on 11/23and had this placed. Pt has been on antibiotics. Pt arm is warm to the touchand swollen. Pt reports chills. TECHNIQUE: 3 radiographic view(s) of the right hand . COMPARISON: None FINDINGS: Overlying external fixating hardware obscures some of the anatomy. Thebones are osteopenic. No definite fracture or dislocation is seen of the handor carpal bones. The lunate bone appears particularly osteopenic which could raise concern for osteomyelitis. Soft tissue swelling of the wrist is suspected. Shortening of the radius relative to the ulna is noted. IMPRESSION: No definite acute osseous abnormality is seen of the hand. The lunate bone appears particularly osteopenic which could raise concern forosteomyelitis. Shortening of the radius relative to the ulna is noted. THIS IS AN ELECTRONICALLY VERIFIED FINAL REPORT 12/19/2024 10:17 PM - Electronically signed by Chepe SHOEMAKER: SAHARA Report ID: [id number] Reading Location: [id number] Puma Mobley MD IMG XR PROCEDURES Final Resul t * XR Radius Ulna Right 2 Views (12/19/2024 10:05 PM CDT) Anatomical Region Laterality Modality Upper Extremities, Forearm Right Compu dusty Radiography 12/19/2024 10:1 1 PM CDT Narrative 12/19/2024 10:15 PM CDT EXAM DESCRIPTION: XR RADIUS ULNA RIGHT 2 VIEWS REASON FOR STUDY: pain swelling pus drainage s/o surgery Pt to ED for c/o redness, swelling and drainage around her external fixation device on her right arm x 1 week. Pt reports she broke her wrist on 11/23 and had this placed. Pt has been on antibiotics. Pt arm is warm to the touch and swollen. Pt reports chills. TECHNIQUE: 2 radiographic view(s) of the right forearm . COMPARISON: None FINDINGS: External fixation device is seen spanning from the metacarpals to the proximal radius. A long pin is seen in the ulna. Displaced fractures of the distal radius are evident. The bone appears osteopenic and hetero genius. This is concerning for possible osteomyelitis. Fracture of the distal shaft of the ulna remains evident with mild angulation. IMPRESSION: Findings are concerning for osteomyelitis of the distal radius. Fractures of the distal radius and ulna. External fixation device. THIS IS AN ELECTRONICALLY VERIFIED FINAL REPORT 12/19/2024 10:15 PM - Electronically signed by Chepe SHOEMAKER: SAHARA Report ID: [id number] Reading Location: [id number] Procedure Note Chepe Gibbons MD - 12/19/2024 EXAM DESCRIPTION: XR RADIUS ULNA RIGHT 2 VIEWS REASON FOR STUDY: pain swelling pus drainage s/o surgery Pt to ED for c/o redness, swelling and drainage around her externalfixation device on her right arm x 1 week. Pt reports she broke her wrist on 11/23and had this placed. Pt has been on antibiotics. Pt arm is warm to the touchand swollen. Pt reports chills. TECHNIQUE: 2 radiographic view(s) of the right forearm . COMPARISON: None FINDINGS: External fixation device is seen spanning from the metacarpals to theproximal radius. A long pin is seen in the ulna. Displaced fractures of thedistal radius are evident. The bone appears osteopenic and hetero genius. Thisis concerning for possible osteomyelitis. Fracture of the distal shaft ofthe ulna remains evident with mild angulation. IMPRESSION: Findings are concerning for osteomyelitis of the distal radius. Fractures of the distal radius and ulna. External fixation device. THIS IS AN ELECTRONICALLY VERIFIED FINAL REPORT 12/19/2024 10:15 PM - Electronically signed by Chepe Gibbons M.D. KH: SAHARA Report ID: [id number] Reading Location: [id number] us Puma Mobley MD IMG XR PROCEDURES Final Resul t * TSH (12/19/2024 9:42 PM CDT) Thyroid Stimulating Hormone 1.32 0.30 - 4.20 mcIUnit/mL Blood 12/19/2024 9:42 PM CDT 12/19/2024 11:07 PM CDT Puma Mobley MD LAB BLOOD ORDERABLES Final Re sult [facility] ([place]) 1 [facility] [place] [address] * Magnesium (12/19/2024 9:42 PM CDT) [facility] Magnesium 1.7 1.4 - 2.5 mg/dL Blood 12/19/2024 9:42 PM CDT 12/19/2024 11:07 PM CDT Puma Mobley MD LAB BLOOD ORDERABLES Final Re sult [facility] ([place]) 1 [facility] [place] [address] * (ABNORMAL) CRP (acute phase) (12/19/2024 4:03 PM CDT) [facility] CRP 153.5(H) <=10.0 mg/L Blood 12/19/2024 4:03 PM CDT 12/19/2024 9:42 PM CDT Puma Mobley MD LAB BLOOD ORDERABLES Final Re sult Performing Organization Address City/[facility]/ZIP Co de Phone Number [facility] ([place]) [address] [place] [address] [place] [address] * (ABNORMAL) Erythrocyte sedimentation rate (12/19/2024 4:03 PM CDT) [facility] Erythrocyte sedimentation rate 135(H) 1 - 30 mm/hr Blood 12/19/2024 4:03 PM CDT 12/19/2024 9:42 PM CDT Puma Mobley MD LAB BLOOD ORDERABLES Final Re sult Performing Organization Address City/[facility]/ZIP Co de Phone Number [facility] ([place]) [address] [facility] [place] [address] * eGFR (12/19/2024 4:03 PM CDT) [facility] eGFR >90 >=60 mL/min/1. 73 m2 Comment: [...] interpretive data was last reviewed 2021. Blood 12/19/2024 4:03 PM CDT 12/19/2024 4:15 PM CDT us Eleuterio Paul MD LAB BLOOD ORDERABLES Final Res ult [facility] ([place]) 1 [facility] Department [place] [address] * (ABNORMAL) Differential, auto (12/19/2024 4:03 PM CDT) Neutrophil abs 5.73 1.50 - 6.50 K/cumm Imm gran abs 0.03 0.00 - 0.10 K/cumm [facility] ([place]) Lymphocyte abs 0.70(L) 0.80 - 3.30 K/cumm [facility] ([place]) Monocyte abs 0.45 0.20 - 0.80 K/cumm [facility] ([place]) Eosinophil abs 0.03 0.00 - 0.50 K/cumm [facility] ([place]) Basophil abs 0.03 0.00 - 0.10 K/cumm [facility] ([place]) Neutrophil pct 82.3 % [facility] ([place]) Comment: Interpretive [...] was last revised on 2017. Lymphocyte pct 10.0 % [facility] ([place]) Comment: Interpretive Data Percent cell count reference ranges are not reported, since discordance with absolute values may lead to misinterpretation of CBC data. Current Interpretive Data was last revised on 2017. Monocyte pct 6.5 % [facility] ([place]) Comment: Interpretive Data [...] Data was last revised on 2017. Blood 12/19/2024 4:0 3 PM CDT 12/19/2024 4:15 PM CDT us Eleuterio Paul MD LAB BLOOD ORDERABLES Final Res ult [facility] ([place]) 1 [facility] [place] [address] * Sepsis Lactate w/ Reflex (12/19/2024 4:03 PM CDT) Sepsis Lactate 2.0 0.7 - 2.0 mmol/L Blood 12/19/2024 4:03 PM CDT 12/19/2024 4:15 PM CDT us Eleuterio Paul MD LAB BLOOD ORDERABLES Final Res ult [facility] ([place]) 1 [facility] [place] [address] * (ABNORMAL) Comprehensive metabolic panel (12/19/2024 4:03 PM CDT) Sodium 122(L) 135 - 145 mmol/L Comment:Corwin O'Ba ER jarek rge Potassium, pl 3.0(C) 3.3 - 4.9 mmol/L [facility] ([place]) Comment:Critical Result call ed by [email or web address] at 2024-12-19 16:41:44. Result Read Back by Corwin Pena'Ba ER charge Chloride 81(L) 97 - 110 mmol/L [facility] ([place]) Comment:Corwin O'Ba ER jarek rge CO2 27 22 - 32 mmol/L [facility] ([place]) Comment:Corwin O'Ba ER jarek rge Anion gap 14 2 - 15 mmol/L [facility] ([place]) Comment:Corwin O'Ba ER jarek rge BUN 7 6 - 25 mg/dL [facility] ([place]) Comment:Corwin O'Ba ER jarek rge Creatinine 0.65 0.60 - 1.10 mg/dL [facility] ([place]) Comment:Corwin O'Ba ER jarek rge Glucose 107 70 - 199 mg/dL [facility] ([place]) Comment: Corwin O'Ba ER charge Interpretive Data Fasting glucose >/= 126 mg/dl [...] interpretive data was last revised 2022. Calcium 9.4 8.5 - 10.3 mg/dL [facility] ([place]) Comment:Corwin O'Ba ER jarek rge Bilirubin, total 0.6 0.1 - 1.2 mg/dL [facility] ([place]) Comment:Corwin Raza ER jarek rge Protein, pl 7.6 6.5 - 8.5 g/dL [facility] ([place]) Comment:Corwin Raza ER jarek rge Albumin 3.8 3.5 - 5.0 g/dL [facility] ([place]) Comment:Corwin Raza ER jarek rge Alk phos 237(H) 40 - 130 Units/L [facility] ([place]) Comment:[facility]win Raza ER jarek rge ALT 33 7 - 45 Units/L [facility] ([place]) Comment:[facility]win Raza ER jarek rge AST 29 10 - 45 Units/L [facility] ([place]) Comment:Corwin Raza ER jarek rge Blood 12/19/2024 4:03 PM CDT 12/19/2024 4:15 PM CDT us Eleuterio Paul MD LAB BLOOD ORDERABLES Final Res ult [facility] ([place]) 1 [facility] [place] [address] * (ABNORMAL) CBC with auto differential (12/19/2024 4:03 PM CDT) WBC 6.97 3.80 - 9.90 K/cumm Hgb 11.3(L) 11.9 - 15.5 g/dL [facility] ([place]) Hct 33.7(L) 35.6 - 45.5 % [facility] ([place]) Plt 290 150 - 400 K/cumm [facility] ([place]) MPV 8.5(L) 9.1 - 12.3 fL [facility] ([place]) RBC 4.25 3.90 - 5.20 M/cumm [facility] ([place]) MCV 79.3(L) 81.3 - 96.4 fL [facility] ([place]) MCH 26.6(L) 27.1 - 33.3 pg [facility] ([place]) MCHC 33.5 32.3 - 35.7 g/dL [facility] ([place]) RDW CV 16.1(H) 11.1 - 14.9 % [facility] ([place]) RDW SD 45.8 35.7 - 48.1 fL [facility] ([place]) NRBC abs 0.00 0.00 - 0.01 K/cumm [facility] ([place]) Blood 12/19/2024 4:03 PM CDT 12/19/2024 4:15 PM CDT us Eleuterio Paul MD LAB BLOOD ORDERABLES Final Res ult [facility] ([place]) 1 [facility] [place] [address] documented in this encounter Visit Diagnoses Diagnosis Surgical wound infection- Primary Other postoperative infection Hyponatremia Hyposmolality and/or hyponatremia Hypokalemia Hypopotassemia documented in this encounter Administered Medications Inactive Administered Medications - up to 3 most recent administrations Medication Order MAR Action Action Date Dose Rate Site acetaminophen (TYLENOL) tablet 650 mg 650 mg, oral, Once, On Tue12/19/24 at 2150, For 1 dose Given 12/19/2024 9:50 PM CDT 650 mg cephalexin (KEFLEX) capsule 500 mg 500 mg, oral, Once, On Tue12/20/24 at 0031, For 1 dose, Indications: Skin/Soft Tissue InfectionIndications:Skin/Soft Tissue Infection Given 12/20/2024 12:38 AM CDT 500 mg morphine injection 4 mg 4 mg, intravenous, Administer over 4 Minutes, Once, On Tue12/20/24 at 0244, For 1 dose Given 12/20/2024 2:48 AM CDT 4 mg ondansetron (ZOFRAN) injection 4 mg 4 mg, intravenous, Administer over 2 Minutes, Once, On Tue12/20/24 at 0244, For 1 dose Given 12/20/2024 2:48 AM CDT 4 mg potassium chloride ER (KLOR-CON) extended release tablet 40 mEq 40 mEq, oral, Once, On Tue12/20/24 at 0454, For 1 dose, Do not crush, chew, cut, dissolve, open or otherwise manipulate tablet/capsule. Given 12/20/2024 5:18 AM CDT 40 mEq sodium chloride 0.9% bolus 1,000 mL 1,000 mL, intravenous, Once, On Tue12/19/24 at 2245, For 1 dose New Bag 12/19/2024 11:52 PM CDT 1,000 mL documented in this encounter Active and Recently Administered Medications Times are shown in CDT. Scheduled Medication Order 12/18/2024 12/19/2024 12/20/2024 acetaminophen (TYLENOL) tablet 650 mg (COMPLETED) 650 mg, oral, Once, On Tue12/19/24 at 2150, For 1 dose 2150 (Given - Provider: May Najera RN) cephalexin (KEFLEX) capsule 500 mg (COMPLETED) 500 mg, oral, Once, On Tue12/20/24 at 0031, For 1 dose, Indications: Skin/Soft Tissue Infection 0038 (Given - Provid er: Milly Mojica NP) morphine injection 4 mg (COMPLETED) 4 mg, intravenous, Administer over 4 Minutes, Once, On Ann 12/20/24 at 0244, For 1 dose 0248 (Given - Provid er: Milly Mojica NP) ondansetron (ZOFRAN) injection 4 mg (COMPLETED) 4 mg, intravenous, Administer over 2 Minutes, Once, On Tue12/20/24 at 0244, For 1 dose 0248 (Given - Provid er: Milly Mojica NP) potassium chloride ER (KLOR-CON) extended release tablet 40 mEq (COMPLETED) 40 mEq, oral, Once, On Tue12/20/24 at 0454, For 1 dose, Do not crush, chew, cut, dissolve, open or otherwise manipulate tablet/capsule. 0518 (Given - Provid er: Milly Mojica NP) sodium chloride 0.9% bolus 1,000 mL (COMPLETED) 1,000 mL, intravenous, Once, On Tue12/19/24 at 2245, For 1 dose 2352 (New Bag - Provider: Milly Mojica NP) 0330 (Stopped - Provider: Milly Mojica NP) documented in this encounter Care Teams Patient Carrier Relationship Specialty Start Date End Date Yg Lee MD PCP - General Internal Medicine 08/19/20 Mitchell Zamarripa MD Referring Physician Rheumatology 03/11/22 Brit More NP Nurse Practitioner Cardiovascular Disease 03/11/22 Cliff Ronquillo NP [address] [place] [address] Nurse Practitioner Nurse Practitioner 05/05/22 Dick Aguilar PA [address] [place] [address] [address] [facility] [place] [address] Physician Siebel Consultant Orthopedic Surgery 11/11/22 Gavin Sewell MD [address] [place] [address] Surgeon Orthopedic Surgery 12/24/22 documented as of this encounter
--- OUTSIDE RECORDS SUMMARY | 2024-12-20 08:53 | XMS_ITS | Clinical Summary ---
Author Organization [facility] Address [address] [place] [address] Phone Care Team Providers Care Part Time Name Role Phone JAM MCDONNELL PA-C Primary Care Provider [phone] Reason for Visit and Chief Complaint HOSPITAL [...] Diagnosis HOSPITAL FOLLOW UP EXAM TIFFANY HOWARD [facility]- 4 12:43PM 1:47PM Insurance Includes: Active Insurance Policies Plan Name Member ID Group # Subscriber Relationship Effect cyn Dates 1 - [employer] [id number] NIGHAT DELANEY Self Clinical Notes Includes: Clinical Notes from this encounter No Clinical Notes Recorded
--- OUTSIDE RECORDS SUMMARY | 2024-12-20 08:53 | XMS_ITS | Clinical Summary ---
Author Organization [facility] Address [address] [place] [address] Care Team Providers Care Ethologist Name Role Phone Mariah Adams MD Primary Care Provider + Mitchell Zamarripa MD Unavailable [phone] Brit More NP Unavailable [phone] Cliff Ronquillo NP Unavailable Dick Aguilar Unavailable [phone] aGvin Sewell MD Unavailable [phone] Allergies Active Allergy Reactions Criticality Noted Date [...] 1 tablet (100 mcg total) by mouth interior systems carpenter before breakfast 1 Active celecoxib (CeleBREX) 100 [...] 08/14/2024 Assessment & Plan (08/14/2024 9:48 AM TELLERS SUPERVISOR): The patient likely has chronic cholecystitis given [...] (04/23/2022): Added automatically from request for surgery [id number] Posterior tibial tendon dysfunction 03/02/2022 Flat foot [...] 01/04/2018 Assessment & Plan (09/19/2018 1:30 PM TELLERS SUPERVISOR): Low disease activity today on exam. Take [...] Encounters Date Type Department Care Team Description 12/19/2024 9:10 PM CDT - 12/20/2024 7:45 AM CDT Emergency [facility] Emergency Department [address] [place] [address] Puma Mobley MD Surgical wound infection (Primary Dx); Hyponatremia; Hypokalemia Discharge Disposition: Discharge to not defined facility 12/12/2024 2:52 PM CDT - 12/12/2024 11:59 PM CDT Hospital Encounter [facility] [address] [place] [address] Pulmonary nodules Discharge Disposition: Discharge to home or self care 12/11/2024 Telephone [facility] [address] [place] [address] Zan Wagner from Last 3 Months Immunizations [...] How often do you attend chur or baptism services? Never 12/23/2022 Do you belong to any clubs o r organizations such as hoahaoism groups, unions, fraternal or athletic groups, or [...] staff should administer the PHQ-9) 0 11/23/2023 [facility] Occupat ional [facility] - Occupational Stress [...] on file Legal Sex Female 11:50 PM TELLERS SUPERVISOR Gender Identity Not on file Sexual [...] Mass Index 27.34 12/19/2024 2:15 PM CDT Plan of Treatment Health Maintenance [...] history exists Medical Devices Implanted Type Area Manager Of Community Relations Device Identifier Shelf Expiration Date Model / Serial / Lot Exactech Restrictor Cement Cemex Small Od13mm Tpa-13 - [id number] Implanted:Qty: 1 on 05/04/2022 by Gavin Sewell MD at [facility] Left: Shoulder Ex[employer]ech 08/28/2023 TPA-13 / / [id number] Exactech Equinoxe Reverse Shoulder +0mm Tray Humeral Adapter 320-10-00 - [id number] - [id number] Implanted:Qty: 1 on 05/04/2022 by Gavin Sewell MD at [facility] Ex[employer]ech [id number] 04/07/2032 320-10-00 / [id number] / Ex[employer]ech Equinoxe 40mm Small Reverse Constrain Shoulder +2.5mm Liner 320-40-13 - [id number] - [id number] Implanted:Qty: 1 on 05/04/2022 by Gavin Sewell MD at [facility] Ex[employer]ech 01/31/2024 320-40-13 / [id number] / Ex[employer]ech Equinoxe Lock Reverse Shoulder Glenosphere Screw Bone 320-15-05 - [id number] - [id number] Implanted:Qty: 1 on 05/04/2022 by Gavin Sewell MD at [facility] Left: Shoulder Ex[employer]ech 03/09/2027 320-15- / [id number] / Exactech Reverse Torque Define Shoulder Kit Screw 32020-00 - [id number] - [id number] Implanted:Qty: 1 on 05/04/2022 by Gavin Sewell MD at [facility] Left: Shoulder [employer]ech 02/03/2027 320-20-00 / [id number] / Exactech Equinoxe Small Reverse Superior Posterior Augment Shoulder Left 320-35-07 - [id number] - [id number] Implanted:Qty: 1 on 05/04/2022 by Gavin Sewell MD at [facility] Left: Shoulder Ex[employer]ech [id number] 04/08/2031 320-35-07 / [id number] / Exactech Equinoxe 10mm Stem Humeral Sterile 300-01-10 - [id number] - [id number] Implanted:Qty: 1 on 05/04/2022 by Gavin Sewell MD at [facility] Left: Shoulder Ex[employer]ech [id number] 09/07/2031 300--10 / [id number] / [employer] Cement Bone Simplex Gentamicin High Viscosity 40gm 6195-1-001 - [id number] Implanted:Qty: 1 on 05/04/2022 by Gavin Sewell MD at [facility] Left: Shoulder [employer] 09/28/2023 6195-1-001 / / [id number] Exactech Equinoxe 40mm 24.3mm Small Reverse Shoulder Sphere Glenoid 320-31-40 - [id number] - [id number] Implanted:Qty: 1 on 05/04/2022 by Gavin Sewell MD at [facility] Left: Shoulder Ex[employer]ech [id number] 12/11/2030 320-31-40 / [id number] / Ex[employer]ech Equinoxe 4.5mm 38mm Kit Compression Lock Cap Reverse Shoulder 320-20-38 - [id number] - [id number] Implanted:Qty: 1 on 05/04/2022 by Gavin Sewell MD at [facility] Left: Shoulder [employer]ech [id number] 01/12/2027 320-20-38 / [id number] / Ex[employer]ech Equinoxe 4.5mm 34mm Kit Compression Lock Cap Reverse Shoulder 320-20-34 - [id number] - [id number] Implanted:Qty: 1 on 05/04/2022 by Gavin Sewell MD at [facility] Left: Shoulder Exactech [id number] 07/14/2026 320-20-34 / [id number] / [employer] Insert Tibial Knee Fixed Lm Posterior Stabilized Attune 7mm Size 5 Polyethylene [id number] - [id number] Implanted:Qty: 1 on 11/10/2022 by Gavin Sewell MD at [facility] Left: Knee [employer] 07/28/2030 [id number] / / [id number] [employer] Attune Cruciate Retain Cementless Knee Left 5 Component Femoral [id number] - [id number] Implanted:Qty: 1 on 11/10/2022 by Gavin Sewell MD at [facility] Left: Knee [employer] 04/28/2032 [id number] / / [id number] [employer] Attune Fb Tib Base Sz 5 Por [id number] - [id number] Implanted:Qty: 1 on 11/10/2022 by Gavin Sewell MD at [facility] Left: Knee [employer] 03/28/2032 [id number] / / [id number] Procedures Procedure Name Priority Date/Time Associated Diagnosis Comments POTASSIUM, URINE, RANDOM STAT 12/20/2024 1:55 AM CDT CHLORIDE, URINE, RANDOM STAT 12/20/2024 1:55 AM CDT SODIUM, URINE, RANDOM STAT 12/20/2024 1:55 AM CDT URINALYSIS AND REFLEX TO MICROSCOPIC AND CULTURE STAT 12/20/2024 1:55 AM CDT XR HAND RIGHT 3 OR MORE VIEWS ED 12/19/2024 10:05 PM CDT XR RADIUS ULNA RIGHT 2 VIEWS ED 12/19/2024 10:05 PM CDT TSH STAT 12/19/2024 9:42 PM CDT MAGNESIUM Routine 12/19/2024 9:42 PM CDT BLOOD CULTURE STAT 12/19/2024 4:09 PM CDT CRP (ACUTE PHASE) STAT 12/19/2024 4:0 3 PM CDT ERYTHROCYTE SEDIMENTATION RATE STAT 12/19/2024 4:03 PM CDT EGFR STAT 12/19/2024 4:03 PM CDT DIFFERENTIAL AUTO STAT 12/19/2024 4:0 3 PM CDT SEPSIS LACTATE WITH REFLEX STAT 12/19/2024 4:03 PM CDT COMPREHENSIVE METABOLIC PANEL STAT 12/19/2024 4:03 PM CDT CBC WITH AUTO DIFFERENTIAL STAT 12/19/2024 4:03 PM CDT BLOOD CULTURE STAT 12/19/2024 4:03 PM CDT SERUM HEPATITIS C AB Routine 11/01/2014 8:32 AM TELLERS SUPERVISOR DIGITAL MAMMOGRAPHY Routine 12/11/2013 1 1:01 AM CDT from Last 3 Months or Most Recently Relevant to Health Maintenance Results * (ABNORMAL) Urinalysis reflex to microscopic and [...] tendency for uric acid stone formation. Source: [facility] Current Interpretive Data was last revised on [...] MICROBIOLOGY - GENERAL OR DERABLES Final Result [facility] [address] [facility] [place] [address] * Sodium, urine, random (12/20/2024 1:55 AM CDT) Sodium, ur 48 mmol/L Comment: Interpretive Data No reference range established. Current interpretive data was last revised 2019. Urine 12/20/2024 1:55 AM CDT 12/20/2024 5:56 AM CDT Narrative [facility] ([place]) - 12/20/2024 6:16 AM CDT No normal range us Puma Mobley MD LAB URINE ORDERABLES Final Re sult Performing Organization Address [facility] Co de Phone Number [facility] ([place]) 1 [facility] [place] [place] [address] * Potassium, urine, random (12/20/2024 1:55 AM CDT) Potassium conc, ur 15.5 mmol/L Comment: Interpretive Data No reference range established. Current interpretive data was last revised 2019. Urine 12/20/2024 1:55 AM CDT 12/20/2024 5:56 AM CDT us Puma Mobley MD LAB URINE ORDERABLES Final Re sult Performing Organization Address [facility] Co de Phone Number [facility] ([place]) 1 [facility] [place] [address] * Chloride, urine, random (12/20/2024 1:55 AM CDT) Chloride, ur 46 mmol/L Comment: Interpretive Data No reference range established. Current interpretive data was last revised 2019. Urine 12/20/2024 1:55 AM CDT 12/20/2024 5:56 AM CDT Narrative [facility] ([place]) - 12/20/2024 6:16 AM CDT No normal range us Puma Mobley MD LAB URINE ORDERABLES Final Re sult Performing Organization Address City/[facility] Co de Phone Number [facility] ([place]) 1 [facility] [place] [place] [address] * XR Hand Right 3 or More [...] Chepe Gibbons M.D. KH: SAHARA Report ID: [id number] Reading Location: [place] [address] Procedure Note Chepe Gibbons MD - 12/19/2024 [...] signed by Chepe SHOEMAKER: SAHARA Report ID: [id number] Reading Location: [id number] us Puma Mobley MD IMG XR PROCEDURES [...] Chepe Gibbons M.D. KH: SAHARA Report ID: [id number] Reading Location: [id number] Procedure Note Chepe Gibbons MD - 12/19/2024 [...] Chepe Gibbons M.D. KH: SAHARA Report ID: [id number] Reading Location: [id number] Puma Mobley MD IMG XR PROCEDURES Final Resul t * TSH (12/19/2024 9:42 PM CDT) Thyroid Stimulating Hormone 1.32 0.30 - 4.20 mcIUnit/mL Blood 12/19/2024 9:42 PM CDT 12/19/2024 11:07 PM CDT Puma Mobley MD LAB BLOOD ORDERABLES Final Re sult [facility] ([place]) [address] [place] [address] * Magnesium (12/19/2024 9:42 PM CDT) Magnesium 1.7 1.4 - 2.5 mg/dL Blood 12/19/2024 9:42 PM CDT 12/19/2024 11:07 PM CDT us Puma Mobley MD LAB BLOOD ORDERABLES Final Re sult [facility] ([place]) [address] [place] [address] * Sepsis Lactate w/ Reflex (12/19/2024 4:03 PM CDT) Pathologist [facility] Sepsis Lactate 2.0 0.7 - 2.0 mmol/L Blood 12/19/2024 4:03 PM CDT 12/19/2024 4:15 PM CDT us Eleuterio Paul MD LAB BLOOD ORDERABLES Final Res ult [facility] ([place]) [address] [place] [address] * eGFR (12/19/2024 4:03 PM CDT) eGFR >90 >=60 mL/min/1. 73 m2 Comment: [...] MD LAB BLOOD ORDERABLES Final Res ult [facility] ([place]) [address] [facility] [place] [address] * (ABNORMAL) Differential, auto (12/19/2024 4:03 PM [...] was last revised on 2017. Blood 12/19/2024 4:03 PM CDT 12/19/2024 4:15 PM CDT us Eleuterio Paul MD LAB BLOOD ORDERABLES Final Res ult [facility] ([place]) [address] [facility] [place] [address] * (ABNORMAL) CBC with auto differential (12/19/2024 [...] ([place]) MCHC 33.5 32.3 - 35.7 g/dL [facility] ([place]) RDW CV 16.1(H) 11.1 - 14.9 % [facility] ([place]) RDW SD 45.8 35.7 - 48.1 fL [facility] ([place]) NRBC abs 0.00 0.00 - 0.01 K/cumm [facility] ([place]) Blood 12/19/2024 4:03 PM CDT 12/19/2024 4:15 PM CDT us Eleuterio Paul MD LAB BLOOD ORDERABLES Final Res ult [facility] ([place]) 1 [facility] [place] [place] [address] * (ABNORMAL) Erythrocyte sedimentation rate (12/19/2024 4:03 PM CDT) Erythrocyte sedimentation rate 135(H) 1 - 30 mm/hr Blood 12/19/2024 4:03 PM CDT 12/19/2024 9:42 PM CDT us Puam Mobley MD LAB BLOOD ORDERABLES Final Re sult Performing Organization Address [facility]/ZIP Co de Phone Number [facility] ([place]) 1 [facility] [place] [place] [address] * (ABNORMAL) CRP (acute phase) (12/19/2024 4:03 PM CDT) CRP 153.5(H) <=10.0 mg/L Blood 12/19/2024 4:03 PM CDT 12/19/2024 9:42 PM CDT us Puma Mobley MD LAB BLOOD ORDERABLES Final Re sult Performing Organization Address [facility]/ZIP Co de Phone Number [facility] ([place]) 1 [facility] [place] [place] [address] * (ABNORMAL) Comprehensive metabolic panel (12/19/2024 4:03 PM CDT) Sodium 122(L) 135 - 145 mmol/L Comment:[facility] WEEKS jarek rge Potassium, pl 3.0(C) 3.3 - 4.9 mmol/L [facility] ([place]) Comment:Critical Result call ed by [email or web address] at 2024-12-19 16:41:44. Result Read Back by Corwin lynn Chloride 81(L) 97 - 110 mmol/L [facility] ([place]) Comment:[place] WEEKS jarek rge CO2 27 22 - 32 mmol/L [facility] ([place]) Comment:[facility] O'Ba ER jarek rge Anion gap 14 2 - 15 mmol/L [facility] ([place]) Comment:[place] WEEKS jarek rge BUN 7 6 - 25 mg/dL [facility] ([place]) Comment:[place] [place]aza ER jarek rge Creatinine 0.65 0.60 - 1.10 mg/dL [facility] ([place]) Comment:[place] Ry WEEKS jarek rge Glucose 107 70 - 199 mg/dL [facility] ([place]) Comment: [place] O'Ba WEEKS [facility] Interpretive Data Fasting glucose >/= 126 mg/dl [...] 2022. Calcium 9.4 8.5 - 10.3 mg/dL [facility] ([place]) Comment:[place] WEEKS jarek rge Bilirubin, total 0.6 0.1 - 1.2 mg/dL [facility] ([place]) Comment:[facility] WEEKS jarek rge Protein, pl 7.6 6.5 - 8.5 g/dL [facility] ([place]) Comment:[facility] WEEKS jarek rge Albumin 3.8 3.5 - 5.0 g/dL [facility] ([place]) Comment:[facility]EEKS jarek rge Alk phos 237(H) 40 - 130 Units/L [facility] ([place]) Comment:[facility] WEEKS jarek rge ALT 33 7 - 45 Units/L [facility] ([place]) Comment:[place] WEEKS jarek rge AST 29 10 - 45 Units/L [facility] ([place]) Comment:[place] ER jarek rge Blood 12/19/2024 4:03 PM CDT 12/19/2024 4:15 PM CDT us Eleuterio Paul MD LAB BLOOD ORDERABLES Final Res ult Performing Organization Address [facility] Co de Phone Number [facility] ([place]) [address] [facility] [place] [address] * Serum Hepatitis C ab (11/01/2014 8:32 AM TELLERS SUPERVISOR) HCV ab Negative NEG HISTORICAL RESULTS Serum 11/01/2014 8:32 AM TELLERS SUPERVISOR Narrative HISTORICAL RESULTS - 11/02/2014 3:46 AM TELLERS SUPERVISOR Interpretive Data If confirmation is required, call Laboratory Customer Service to request sample to be sent to [facility] for Hepatitis C Virus (HCV) RNA Detection and Quantitation by Real-Time Reverse Business Services Specialist Sales-PCR (RT-PCR). Current interpretive data was last revised on 2011 us Fariha Whitley MD LAB BLOOD ORDERABLES Final R esult Performing Organization Address [facility] Co de Phone Number HISTORICAL RESULTS * DIGITAL MAMMOGRAPHY (12/11/2013 11:01 AM CDT) Anatomical Region Laterality Modality Breast Mammography 12/11/2013 11:0 1 AM CDT Narrative 12/12/2013 12:15 AM CDT Vm Mammogram Performed by: LT Screening Mamm Bi Acc#: [id number] DATE OF EXAM: Dec 11 2013 CLINICAL [...] Mammogram Performed by: Screening Mamm Bi Acc#: [id number] DATE OF EXAM: Dec 11 2013 CLINICAL [...] Advance Directives For more information, please contact: [phone] * Full Code (Latest Code Status on File) Date Activated Date Inactivated Comments 11/22/2023 6:25 PM 11/25/2023 11:09 PM * Full Code Date Activated Date Inactivated Comments 12/21/2022 5:34 PM 12/24/2022 8:16 PM * Full Code Date Activated Date Inactivated Comments 11/10/2022 4:25 PM 11/11/2022 3:51 PM * Full Code Date Activated Date Inactivated Comments 05/04/2022 1:38 PM 05/05/2022 6:47 PM Care Teams Ethologist Relationship Specialty Start Date End Date Mariah Adams MD PCP - General Internal Medicine 08/19/20 Mitchell Zamarripa MD Referring Physician Rheumatology 03/11/22 Brit More NP Nurse Practitioner Cardiovascular Disease 03/11/22 Cliff Ronquillo NP [address] [place] [address] [address] [facility] [place] [address] Nurse Practitioner Nurse Practitioner 05/05/22 Dick Aguilar PA [address] [place] [address] DR [facility] [place] [address] Physician National Insurance Officer Orthopedic Surgery 11/11/22 Gavin Sewell MD [address] [place] [address] DR CARLOS Marc [address] [address] Surgeon Orthopedic Surgery 12/24/22
--- OUTSIDE RECORDS SUMMARY | 2024-12-20 08:53 | XMS_ITS | Referral Summary ---
Author Organization [facility] Address [address] [place] [address] Care Team Providers Care Pan Pusher Name Role Phone Mariah Adams MD Primary Care Provider + Mitchell Zamarripa MD Unavailable [phone] Brit More NP Unavailable [phone] Cliff Ronquillo NP Unavailable [phone] Dick Aguilar Unavailable [phone] Gavin Sewell MD Unavailable [phone] Encounters Date Type Department Care Team Description 12/19/2024 9:10 PM CDT - 12/20/2024 7:45 AM CDT Emergency [facility] Emergency Department [address] [place] [address] Puma Mobley MD Surgical wound infection (Primary Dx); Hyponatremia; Hypokalemia Discharge Disposition: Discharge to not defined facility 12/12/2024 2:52 PM CDT - 12/12/2024 11:59 PM CDT Hospital Encounter [facility] [address] [place] [address] Pulmonary nodules Discharge Disposition: Discharge to home or self care 12/11/[address] [address] Zan Wagner from Last 3 Months Allergies [...] 1 tablet (100 mcg total) by mouth oscillograph technician before breakfast 1 Active celecoxib (CeleBREX) [...] 08/14/2024 Assessment & Plan (08/14/2024 9:48 AM MEDICAL PSYCHOTHERAPIST): The patient likely has chronic cholecystitis given [...] (04/23/2022): Added automatically from request for surgery [id number] Posterior tibial tendon dysfunction 03/02/2022 Flat foot [...] 01/04/2018 Assessment & Plan (09/19/2018 1:30 PM MEDICAL PSYCHOTHERAPIST): Low disease activity today on exam. Take [...] How often do you attend chur or buddhist services? Never 12/23/2022 Do you belong to [...] staff should administer the PHQ-9) 0 [facility] - Occupational Stress Questionnaire Answer Date Recorded [...] place to sleep or slept in a fdc (including now)? No 12/23/2022 Personal Safety Answer Date Recorded Have you ever been in or are you currently in a harmful physical or emotional relationship or is someone making you feel afraid or unsafe? Denies 12/19/2024 Comments No Sex and Gender Information Value Date Recorded Sex Assigned at Not on file Legal Sex Female 11:50 PM MEDICAL PSYCHOTHERAPIST Gender Identity Not on file Sexual Orientation [...] 12/19/2024 2:15 PM CDT Plan of Treatment Not on file Medical Devices Implanted Type Area Limnology Teacher Device Identifier Shelf Expiration Date Model / Serial / Lot Exactech Restrictor Cement Cemex Small Od13mm Tpa-13 - [id number] Implanted:Qty: 1 on 05/04/2022 by Gavin Sewell MD at [facility] Left: Shoulder Exactech 08/28/2023 TPA-13 / / [id number] Exactech Equinoxe Reverse Shoulder +0mm Tray Humeral Adapter 320-10-00 - [id number] - [id number] Implanted:Qty: 1 on 05/04/2022 by Gavin Sewell MD at [facility] Exactech [id number] 04/07/2032 320-10-00 / [id number] / Exactech Equinoxe 40mm Small Reverse Constrain Shoulder +2.5mm Liner 320-40-13 - [id number] - [id number] Implanted:Qty: 1 on 05/04/2022 by Gavin Sewell MD at [facility] Exactech 01/31/2024 320-40-13 / [id number] / Exactech Equinoxe Lock Reverse Shoulder Glenosphere Screw Bone 320-15-05 - [id number] - [id number] Implanted:Qty: 1 on 05/04/2022 by Gavin Sewell MD at [facility] Left: Shoulder Exactech 03/09/2027 320-15-05 / [id number] / Exactech Reverse Torque Define Shoulder Kit Screw 320-20 - [id number] - [id number] Implanted:Qty: 1 on 05/04/2022 by Gavin Sewell MD at [facility] Left: Shoulder Exactech 02/03/2027 320-20 / [id number] / Exactech Equinoxe Small Reverse Superior Posterior Augment Shoulder Left 320-35- - [id number] - [id number] Implanted:Qty: 1 on 05/04/2022 by Gavin Sewell MD at [facility] Left: Shoulder Ex[employer]ech [id number] 04/08/2031 320-35- / [id number] / Exactech Equinoxe 10mm Stem Humeral Sterile 300-09-07 - [id number] - [id number] Implanted:Qty: 1 on 05/04/2022 by Gavin Seewll MD at [facility] Left: Shoulder Exactech [id number] 09/07/2031 300 / [id number] / [employer] Cement Bone Simplex Gentamicin High Viscosity 40gm 6195-1-001 - [id number] Implanted:Qty: 1 on 05/04/2022 by Gavin Sewell MD at [facility] Left: Shoulder [employer] 09/28/2023 6195-1-001 / / [id number] Exactech Equinoxe 40mm 24.3mm Small Reverse Shoulder Sphere Glenoid 320-31-40 - [id number] - [id number] Implanted:Qty: 1 on 05/04/2022 by Gavin Sewell MD at [facility] Left: Shoulder Exactech [id number] 12/11/2030 320-31-40 / [id number] / Exactech Equinoxe 4.5mm 38mm Kit Compression Lock Cap Reverse Shoulder 320--38 - [id number] - [id number] Implanted:Qty: 1 on 05/04/2022 by Gavin Sewell MD at [facility] Left: Shoulder Ex[employer]ech [id number] 01/12/2027 320-20-38 / [id number] / Exactech Equinoxe 4.5mm 34mm Kit Compression Lock Cap Reverse Shoulder 320-20-34 - [id number] - [id number] Implanted:Qty: 1 on 05/04/2022 by Gavin Sewell MD at [facility] Left: Shoulder Exactech [id number] 07/14/2026 320-20-34 / [id number] / [employer] Insert Tibial Knee Fixed Lm Posterior Stabilized Attune 7mm Size 5 Polyethylene [id number] - [id number] Implanted:Qty: 1 on 11/10/2022 by Gavin Sewell MD at [facility] Left: Knee [employer] 07/28/2030 [id number] / / [id number] [employer] Attune Cruciate Retain Cementless Knee Left 5 Component Femoral [id number] - [id number] Implanted:Qty: 1 on 11/10/2022 by Gavin Sewell MD at [facility] Left: Knee [employer] 04/28/2032 [id number] / / [id number] [employer] Attune Fb Tib Base Sz 5 Por [id number] - [id number] Implanted:Qty: 1 on 11/10/2022 by Gavin Sewell MD at [facility] Left: Knee [employer] 03/28/2032 [id number] / / [id number] Procedures Procedure Name Priority Date/Time Associated Diagnosis [...] HEPATITIS C AB Routine 11/01/2014 8:32 AM MEDICAL PSYCHOTHERAPIST DIGITAL MAMMOGRAPHY Routine 12/11/2013 1 1:01 AM CDT from Last 3 Months or Most Recently Relevant to Health Maintenance Results * (ABNORMAL) Urinalysis reflex to microscopic and culture Urine, bladder (12/20/2024 1:55 AM CDT) Color, ur Yellow Yellow Clarity, ur Turbid(A) Clear [facility] ([place]) Specific gravity, ur 1.010 1.003 - 1.030 [...] tendency for uric acid stone formation. Source: [facility] fundfindr Current Interpretive Data was last revised on [...] 55 AM CDT 12/20/2024 2:00 AM CDT Puma Mobley MD LAB MICROBIOLOGY - GENERAL OR DERABLES Final Result [facility] 1 [facility] Department [place] [address] * Sodium, urine, random (12/20/2024 1:55 AM CDT) Sodium, ur 48 mmol/L Comment: Interpretive Data No reference range established. Current interpretive data was last revised 2019. Urine 12/20/2024 1:55 AM CDT 12/20/2024 5:56 AM CDT Narrative [facility] ([place]) - 12/20/2024 6:16 AM CDT No normal range us Puma Mobley MD LAB URINE ORDERABLES Final Re sult Performing Organization Address [facility] de Phone Number [facility] ([place]) 1 [facility] [place] [address] * Potassium, urine, random (12/20/2024 1:55 AM CDT) Potassium conc, ur 15.5 mmol/L Comment: Interpretive Data No reference range established. Current interpretive data was last revised 2019. Urine 12/20/2024 1:55 AM CDT 12/20/2024 5:56 AM CDT Puma Mobley MD LAB URINE ORDERABLES Final Re sult Performing Organization Address [facility] de Phone Number [facility] ([place]) 1 [facility] [place] [address] * Chloride, urine, random (12/20/2024 1:55 AM CDT) Chloride, ur 46 mmol/L Comment: Interpretive Data No reference range established. Current interpretive data was last revised 2019. Urine 12/20/2024 1:55 AM CDT 12/20/2024 5:56 AM CDT Narrative [facility]) - 12/20/2024 6:16 AM CDT No normal range Puma Mobley MD LAB URINE ORDERABLES Final Re sult Performing Organization Address [facility] Co de Phone Number [facility] ([place]) 1 [facility] [place] [address] * XR Hand Right 3 or More [...] Chepe Gibbons M.D. KH: SAHARA Report ID: [id number] [place] Location: [id number] Procedure Note Chepe Gibbons MD - 12/19/2024 [...] signed by Chepe SHOEMAKER: SAHARA Report ID: [id number] [place] Location: [id number] Puma Mobley MD IMG XR PROCEDURES Final [...] signed by Chepe SHOEMAKER: SAHARA Report ID: [id number] [place] Location: [id number] Procedure Note Chepe Gibbons MD - 12/19/2024 [...] Chepe Gibbons M.D. KH: SAHARA Report ID: [id number] [place] Location: [place] [address] us Puma Mobley MD IMG XR PROCEDURES Final Resul t * TSH (12/19/2024 9:42 PM CDT) Thyroid Stimulating Hormone 1.32 0.30 - 4.20 mcIUnit/mL Blood 12/19/2024 9:42 PM CDT 12/19/2024 11:07 PM CDT us Puma Mobley MD LAB BLOOD ORDERABLES Final Re sult [facility] ([place]) 1 [facility] Department [place] [address] * Magnesium (12/19/2024 9:42 PM CDT) Magnesium 1.7 1.4 - 2.5 mg/dL Blood 12/19/2024 9:4 2 PM CDT 12/19/2024 11:07 PM CDT Puma Mobley MD LAB BLOOD ORDERABLES Final Re sult [facility] ([place]) 1 [facility] [place] [address] * Sepsis Lactate w/ Reflex (12/19/2024 4:03 PM CDT) Sepsis Lactate 2.0 0.7 - 2.0 mmol/L Blood 12/19/2024 4:03 PM CDT 12/19/2024 4:15 PM CDT us Eleuterio Paul MD LAB BLOOD ORDERABLES Final Res ult Performing Organization Address City/[facility]/ZIP Co de Phone Number [facility] 1 [facility] [place] [address] * eGFR (12/19/2024 4:03 PM CDT) eGFR [...] Final Res ult [facility] ([place]) 1 [facility] Department [place] [address] * (ABNORMAL) Differential, auto (12/19/2024 4:03 PM [...] BLOOD ORDERABLES Final Res ult [facility] ([place]) 1 [facility] Department [place] [address] * (ABNORMAL) CBC with auto differential (12/19/2024 [...] RDW SD 45.8 35.7 - 48.1 fL [facility] ([place]) NRBC abs 0.00 0.00 - 0.01 K/cumm [facility] ([place]) Blood 12/19/2024 4:03 PM CDT 12/19/2024 4:15 PM CDT us Eleuterio Paul MD LAB BLOOD ORDERABLES Final Res ult Performing Organization Address [facility]/ZIP Co de Phone Number [facility] ([place]) 1 [facility] [place] [address] * (ABNORMAL) Erythrocyte sedimentation rate (12/19/2024 4:03 PM CDT) Erythrocyte sedimentation rate 135(H) 1 - 30 mm/hr Blood 12/19/2024 4:03 PM CDT 12/19/2024 9:42 PM CDT us Puma Mobley MD LAB BLOOD ORDERABLES Final Re sult Performing Organization Address [facility] Co de Phone Number [facility] ([place]) 1 [facility] [place] [address] * (ABNORMAL) CRP (acute phase) (12/19/2024 4:03 PM CDT) CRP 153.5(H) <=10.0 mg/L Blood 12/19/2024 4:03 PM CDT 12/19/2024 9:42 PM CDT us Puma Mobley MD LAB BLOOD ORDERABLES Final Re sult Performing Organization Address [facility] Co de Phone Number [facility] ([place]) 1 [facility] [place] [address] * (ABNORMAL) Comprehensive metabolic panel (12/19/2024 4:03 PM CDT) Sodium 122(L) 135 - 145 mmol/L Comment:Corwin WEEKS cha rge Potassium, pl 3.0(C) 3.3 - 4.9 mmol/L [facility] ([place]) Comment:Critical Result call ed by [email or web address] at 2024-12-19 16:41:44. Result Read Back by Corwin BeckyAbdiasBa ER charge Chloride 81(L) 97 - 110 mmol/L [facility] ([place]) Comment:[facility]win Raza ER jarek rge CO2 27 22 - 32 mmol/L [facility] ([place]) Comment:[facility] jarek rge Anion gap 14 2 - 15 mmol/L [facility] ([place]) Comment:[facility] ER jarek rge BUN 7 6 - 25 mg/dL [facility] ([place]) Comment:[facility] ER jarek rge Creatinine 0.65 0.60 - 1.10 mg/dL [facility] ([place]) Comment:Corwin WEEKS jarek rge Glucose 107 70 - 199 mg/dL [facility] ([place]) Comment: Corwin Braxton charge Interpretive Data Fasting glucose >/= 126 [...] 2022. Calcium 9.4 8.5 - 10.3 mg/dL [facility] ([place]) Comment:Corwin WEEKS jarek rge Bilirubin, [...] 45 Units/L [facility] ([place]) Comment:[facility] WEEKS cha rgashley AST 29 10 - 45 Units/L [facility] ([place]) Comment:Corwin garcia Blood 12/19/2024 4:03 PM CDT 12/19/2024 4:15 PM CDT us Eleuterio Paul MD LAB BLOOD ORDERABLES Final Res ult Performing Organization Address City/[facility]/ZIP Co de Phone Number [facility] ([place]) 1 [facility] Department [place] [address] * Serum Hepatitis C ab (11/01/2014 8:32 AM MEDICAL PSYCHOTHERAPIST) HCV ab Negative NEG HISTORICAL RESULTS Serum 11/01/2014 8:32 AM MEDICAL PSYCHOTHERAPIST Narrative HISTORICAL RESULTS - 11/02/2014 3:46 AM MEDICAL PSYCHOTHERAPIST Interpretive Data If confirmation is required, call Laboratory Customer Service to request sample to be sent to [facility] for Hepatitis C Virus (HCV) RNA Detection and Quantitation by Real-Time Reverse Oil Developer-PCR (RT-PCR). Current interpretive data was last revised on 2011 us Fariha Whitley MD LAB BLOOD ORDERABLES Final R esult Performing Organization Address [facility] Co de Phone Number HISTORICAL RESULTS * DIGITAL MAMMOGRAPHY (12/11/2013 11:01 AM CDT) Anatomical Region Laterality Modality Breast Mammography 12/11/2013 11:0 1 AM CDT Narrative 12/12/2013 12:15 AM CDT Vm Mammogram Performed by: LT Screening Mamm Bi Acc#: [id number] DATE OF EXAM: Dec 11 2013 CLINICAL [...] Performed by: LT Screening Mamm Bi Acc#: [id number] DATE OF EXAM: Dec 11 2013 CLINICAL [...] Most Recently Relevant to Health Maintenance Insurance [facility] MEDICARE [place] [employer] CHOICE PPO Advance Directives For more information, please contact: [phone] * Full Code (Latest Code Status on File) Date Activated Date Inactivated Comments 11/22/2023 6:25 PM 11/25/2023 11:09 PM * Full Code Date Activated Date Inactivated Comments 12/21/2022 5:34 PM 12/24/2022 8:16 PM * Full Code Date Activated Date Inactivated Comments 11/10/2022 4:25 PM 11/11/2022 3:51 PM * Full Code Date Activated Date Inactivated Comments 05/04/2022 1:38 PM 05/05/2022 6:47 PM Care Teams Pan Pusher Relationship Specialty Start Date End Date Mariah Adams MD PCP - General Internal Medicine 08/19/20 Mitchell Zamarripa MD Referring Physician Rheumatology 03/11/22 Brit More NP Nurse Practitioner Cardiovascular Disease 03/11/22 Cliff Ronquillo NP [address] [place] [address] [address] [place] [address] Nurse Practitioner Nurse Practitioner 05/05/22 Dick Aguilar PA [address] [place] [address] [place] [address] Physician Extruder Tender Orthopedic Surgery 11/11/22 Gavin Sewell MD [address] [place] [address] [address] [place] [address] Surgeon Orthopedic Surgery 12/24/22
--- OUTSIDE RECORDS SUMMARY | 2024-12-20 08:53 | XMS_ITS | Clinical Summary ---
Author Organization [facility] Address [address] [place] [address] Phone Care Team Providers Care Field Nurse Name Role Phone JAM MCDONNELL PA-C Primary Care Provider [phone] Reason for Visit and Chief Complaint HEART [...] Diagnosis HEART CENTER FOLLOW UP TIFFANY [facility]- 3 1:47PM 2:40PM Insurance Includes: Active Insurance Policies Plan Name Member ID Group # Subscriber Relationship Effect cyn Dates 1 - [employer] ADVANTAGE [id number] NIGHAT DELANEY Self Clinical Notes Includes: Clinical Notes from this encounter No Clinical Notes Recorded
--- OUTSIDE RECORDS SUMMARY | 2024-12-20 08:53 | XMS_ITS | Data Portability ---
Author Organization [facility] Address [address] [place] [address] Care Team Providers Care Die Baker Name Role Phone JAM LEDEZMA Primary Care Provider [phone] Assessment No assessment recorded. Plan of Treatment Reminders Order Date Submit Date Provider Last Modified By Organization Details Last Modified Time Details Appointments None recorde d. Lab PTH (parath yroid hormone ), intact + calcium , serum or plasma 2019 020 bbertoglioma [facility], [address] [place] [address], [address], [place], [address], 0 18:10:55 unliste d lab - complia nce drug analysi s, ur 2019 020 REUBEN [facility], [address] [place] [address], [address], [place], [address], 0 15:09:11 PTH (parath yroid hormone ), intact + calcium , serum or plasma 2019 020 hspraggs [facility], [address] [facility], [address], [place], [address], 0 15:26:23 Referral orthope dic referra l 2019 020 [facility], [address] [facility], [place], [address], 0 14:14:57 oncolog ist referra l - ANABEL 2019 020 ssaterri Rivero MD, [address] [facility] , [address], [place], [address], 0 11:06:22 dermato logist referra l 2019 [email or web address] Not available 0 14:26:11 Procedures None recorde d. Surgeries None recorde d. Imaging NM, bone scan 2019 020 bbertoglioma [facility] (Radiology), [address] [facility] , [place], [address], 0 15:52:19 CT, lower leg, w/ contras t 2019 020 [facility] (Scheduling), [address] [facility], [place], [address], 0 15:02:33 XR, lumbar spine 2019 020 REUBEN [facility], [address] [facility], [place], [address], 0 14:17:01 Medication Orders calcito marlo (salmon ) 200 unit/ac tuation nasal spray 2019 020 [email or web address], [address], [place], [place], [id number], 0 15:02:19 acetami nophen 300 mg-code ine 30 mg tablet 2019 020 [email or web address] [email or web address][id number], [address], [place], [place], [id number], 1 17:09:49 gabapen tin 100 mg capsule 2019 020 [email or web address]64346, [address], [place], [place], [id number], 0 12:02:47 Patient TargetsNo targets recorded. Patient Instructions Encounter Date Encounter Id Patient Instructions Last Modified By Organization Details Last Modified Time 01/30/2020 [id number] osteoporosis: care instructions jnanney Not available 01/30/2020 15:02:14 Reason for Referral Measurement Psychologist Referral for C omplaining of a rash Referring Physician: Jam Ledezma [facility], Encounter Date: 02/20/2020 ANABEL Referring Physician: Jam Ledezma [facility], Encounter Date: 02/20/2020 Orthopedic Referral for Path ological fracture of right tibia Referring Physician: Jam Ledezma [facility], Encounter Date: 04/22/2020 Results Created Date Observation Date Name Description Value Unit Range Abnormal Flag Note LastModifiedBy Organization Detail LastModifiedTime 12/27/19 20 12/28/2019 CMP, serum or plasm a glucose 91 mg/dL 65-99 Not Available [facility] ([facility]) [address] [place], [address], 12/28/2019 07:08:47 12/27/1912/28/2019 CMP, serum or plasm a BUN 15 mg/dL 6-24 Not Available [facility] ([facility]) [address] [place], [address], 12/28/2019 07:08:47 12/27/1912/28/2019 CMP, serum or plasm a creatinine 0.80 mg/dL 0.57-1 .00 Not Available [facility] ([facility]) [address] [place], [address], 12/28/2019 07:08:47 12/27/1912/28/2019 CMP, serum or plasm a eGFR if nonafricn AM 82 mL/mi n/1.7 3 >59 Not Available [facility] ([facility]) [address] [place], [address], 12/28/2019 07:08:47 12/27/1912/2712/28/2019 CMP, serum or plasm a eGFR if africn AM 95 mL/mi n/1.7 3 >59 Not Available [facility] ([facility]) [address] [facility] [place], [address], 12/28/2019 07:08:47 12/27/19 20 12/28/2019 CMP, serum or plasm a BUN/creatini ne ratio 19 9-23 Not Available [facility] ([facility]) [address] [facility] [place], [address], 12/28/2019 07:08:47 12/27/1912/28/2019 CMP, serum or plasm a sodium 138 mmol/ L 134-14 4 Not Available [facility] ([facility]) [address] [place], [address], 12/28/2019 07:08:47 12/27/19 20 12/28/2019 CMP, serum or plasm a potassium 4.2 mmol/ L 3.5-5. 2 Not Available [facility] ([facility]) [address] [place], [address], 12/28/2019 07:08:47 12/27/19 20 12/28/2019 CMP, serum or plasm a chloride 98 mmol/ L 96-106 Not Available [facility] ([facility]) [address] [place], [address], 12/28/2019 07:08:47 12/27/1912/28/2019 CMP, serum or plasm a carbon dioxide, total 23 mmol/ L 20-29 Not Available [facility] ([facility]) [address] [place], [address], 12/28/2019 07:08:47 12/27/1912/28/2019 CMP, serum or plasm a calcium 10.1 mg/dL 8.7-10 .2 Not Available [facility] ([facility]) [address] [place], [address], 12/28/2019 07:08:47 12/27/19 20 12/28/2019 CMP, serum or plasm a protein, total 7.3 g/dL 6.0-8. 5 Not Available [facility] ([facility]) [address] [place], [address], 12/28/2019 07:08:47 12/27/1912/28/2019 CMP, serum or plasm a albumin 4.8 g/dL 3.8-4. 9 Not Available [facility] ([facility]) [address] [place], [address], 12/28/2019 07:08:47 12/27/1912/28/2019 CMP, serum or plasm a globulin, total 2.5 g/dL 1.5-4. 5 Not Available [facility] ([facility]) [address] [place], [address], 12/28/2019 07:08:47 12/27/1912/28/2019 CMP, serum or plasm a A/G ratio 1.9 1.2-2. 2 Not Available [facility] ([facility]) [address] [place], [address], 12/28/2019 07:08:47 12/27/1912/28/2019 CMP, serum or plasm a bilirubin, total 0.4 mg/dL 0.0-1. 2 Not Available [facility] ([facility]) [address] [place], [address], 12/28/2019 07:08:47 12/27/1912/28/2019 CMP, serum or plasm a alkaline phosphatase 114 IU/L 39-117 Not Available [facility] [address] [place], [address], 12/28/2019 07:08:47 12/27/1912/28/2019 CMP, serum or plasm a AST (SGOT) 40 IU/L 0-40 Not Available [facility] ([facility]) [address], [place], [address], 12/28/2019 07:08:47 12/27/1912/28/2019 CMP, serum or plasm a ALT (SGPT) 29 IU/L 0-32 Not Available [facility] ([facility]) [address] [facility], [place], [address], 12/28/2019 07:08:47 12/27/19 20 12/28/2019 vitam in D, 25-hy droxy , total , serum vitamin D, 25-hydroxy 34.2 NG/mL 30.0-1 00.0 Vitam in D defic iency has been defin ed by the [facility]i [facility] and an Endoc rine Socie ty pract ice guide line as a level of serum 25-OH vitam in D less than 20 ng/mL (1,2) . The Endoc rine Socie ty went on to furth er defin e vitam in D insuf ficie ncy as a level betwe en 21 and 29 ng/mL (2). 1. IOM ([facility]). 2010. Melany ry refer ence kristina es for calci um and D. Zackary baum [place]: [facility] . 2. Patricia valdez MF, Jluis albert [place], [place] off-F errar i GARCIA, et al. Evalu ation , treat ment, and preve ntion of vitam in D defic iency : an Endoc rine Socie ty clini tessie pract ice guide line. JCEM. 2010; 96(7) :1911 -30. Not Available [facility] ([facility]) [address] [facility], [place], [address], 12/28/2019 07:08:48 02/11/2002/19/2020 drug scree n, urine [...] [place] [address] EXPEC JALYN ng/mg creat Morph ine 1924 EXPEC JALYN ng/mg creat Normo rphin e 572 EXPEC JALYN ng/mg creat [place] deine 1659 EXPEC JALYN ng/mg creat Sourc [...] expec jalyn metab olite of morph ine. [place] deine is an expec jalyn metab olite [...] Clobe tasol Ezeti mibe Fluti kelsie e [place] chlor othia zide (Samantha nopri l-HCT Z) [place] xychl oroqu ine Levot hyrox ine Lisin opril (Samantha nopri l-HCT Z) Lorat adine Nitro furan toin Omepr azole Ondan setro n Prava stati n Predn isone Rosuv astat in ===== ===== ===== ===== ===== ===== ===== ===== ===== ===== ===== ===== ===== === For clini tessie consu ltati on, pleas e call [phone]. ===== ===== ===== ===== ===== ===== ===== ===== ===== ===== ===== ===== ===== === Not Available [employer] [address] [facility], [place], [address], 02/19/2020 15:09:11 02/11/20 20 02/19/2020 drug scree n, urine pdf . Not Available [employer] [address] [facility], [place], [address], 02/19/2020 15:09:11 04/28/20 20 04/28/2020 PTH (para [...] - 65 < 8.6 Not Available [facility] ([facility]) [address] [place], [address], 04/29/2020 17:08:21 04/28/20 20 04/29/2020 PTH (para thyro id hormo ne), intac t + calci um, serum or plasm a calcium TNP mg/dL No serum gel recei dillon. Not Available [facility] ([facility]) [address] [place], [address], 04/29/2020 17:08:21 04/28/20 20 04/29/2020 PTH (para thyro id hormo ne), intac t + calci um, serum or plasm a PTH, intact 63 pg/mL 15-65 Not Available [facility] ([facility]) [address] [place], [address], 04/29/2020 17:08:21 04/28/20 20 04/29/2020 speci men statu s repor t specimen status report TNP No serum gel recei dillon. TEST: [id number] 6 Calci um Panel : 58444 1 Not Available [facility] ([facility]) [address] [place], [address], 04/29/2020 17:08:22 04/30/2005/01/2020 TSH + free T4, serum TSH 4.230 uIU/m L 0.450- 4.500 Not Available [facility] ([facility]) [address] [place], [address], 05/01/2020 08:17:01 04/30/2005/01/2020 TSH + free T4, serum T4,free(dire ct) 1.18 NG/dL 0.82-1 .77 Not Available [facility] ([facility]) [address] [place], [address], 05/01/2020 08:17:01 04/30/2005/01/2020 CBC w/ auto diff WBC 5.2 x10e3 /uL 3.4-10 .8 Not Available [facility] ([facility]) [address] [facility], [place], [address], 05/01/2020 08:17:02 04/30/2005/01/2020 CBC w/ auto diff RBC 4.16 x10e6 /uL 3.77-5 .28 Not Available [facility] ([facility]) [address] [facility], [place], [address], 05/01/2020 08:17:02 04/30/2005/01/2020 CBC w/ auto diff hemoglobin 13.9 g/dL 11.1-1 5.9 Not Available [facility] ([facility]) [address] [facility], [place], [address], 05/01/2020 08:17:02 04/30/2005/01/2020 CBC w/ auto diff hematocrit 39.7 % 34.0-4 6.6 Not Available [facility] ([facility]) [address] [facility], [place], [address], 05/01/2020 08:17:02 04/30/2005/01/2020 CBC w/ auto diff MCV 95 fL 79-97 Not Available [facility] ([facility]) [address] [place], [address], 05/01/2020 08:17:02 04/30/2005/01/2020 CBC w/ auto diff MCH 33.4 pg 26.6-3 3.0 above high normal Not Available [facility] ([facility]) [address] [place], [address], 05/01/2020 08:17:02 04/30/2005/01/2020 CBC w/ auto diff MCHC 35.0 g/dL 31.5-3 5.7 Not Available [facility] ([facility]) [address] [facility], [place], [address], 05/01/2020 08:17:02 04/30/2005/01/2020 CBC w/ auto diff RDW 13.4 % 11.7-1 5.4 Not Available [facility] ([facility]) [address] [facility], [place], [address], 05/01/2020 08:17:02 04/30/2005/01/2020 CBC w/ auto diff platelets 296 x10e3 /uL 150-45 0 Not Available [facility] ([facility]) [address] [facility], [place], [address], 05/01/2020 08:17:02 04/30/2005/01/2020 CBC w/ auto diff neutrophils 72 % not estab. Not Available [facility] ([facility]) [address] [facility], [place], [address], 05/01/2020 08:17:02 04/30/2005/01/2020 CBC w/ auto diff lymphs 14 % not estab. Not Available [facility] ([facility]) [address] [facility], [place], [address], 05/01/2020 08:17:02 04/30/2005/01/2020 CBC w/ auto diff monocytes 7 % not estab. Not Available [facility] ([facility]) [address] [facility], [place], [address], 05/01/2020 08:17:02 04/30/2005/01/2020 CBC w/ auto diff eos 4 % not estab. Not Available [facility] ([facility]) [address] [facility], [place], [address], 05/01/2020 08:17:02 04/30/2005/01/2020 CBC w/ auto diff basos 2 % not estab. Not Available [facility] ([facility]) [address] [facility], [place], [address], 05/01/2020 08:17:02 04/30/2005/01/2020 CBC w/ auto diff immature cells TRIAGE ASSISTANT Not Available [facility] ([facility]) [address] [place], [address], 05/01/2020 08:17:02 04/30/2005/01/2020 CBC w/ auto diff neutrophils (absolute) 3.8 x10e3 /uL 1.4-7. 0 Not Available [facility] ([facility]) [address] [place], [address], 05/01/2020 08:17:02 04/30/2005/01/2020 CBC w/ auto diff lymphs (absolute) 0.7 x10e3 /uL 0.7-3. 1 Not Available [facility] ([facility]) [address] [place], [address], 05/01/2020 08:17:02 04/30/2005/01/2020 CBC w/ auto diff monocytes(ab solute) 0.4 x10e3 /uL 0.1-0. 9 Not Available [facility] ([facility]) [address] [place], [address], 05/01/2020 08:17:02 04/30/2005/01/2020 CBC w/ auto diff eos (absolute) 0.2 x10e3 /uL 0.0-0. 4 Not Available [facility] ([facility]) [address] [place], [address], 05/01/2020 08:17:02 04/30/2005/01/2020 CBC w/ auto diff baso (absolute) 0.1 x10e3 /uL 0.0-0. 2 Not Available [facility] ([facility]) [address] [place], [address], 05/01/2020 08:17:02 04/30/2005/01/2020 CBC w/ auto diff immature granulocytes 1 % not estab. Not Available [facility] ([facility]) [address] [facility] [place], [address], 05/01/2020 08:17:02 04/30/2005/01/2020 CBC w/ auto diff immature grans (abs) 0.0 x10e3 /uL 0.0-0. 1 Not Available [facility] ([facility]) [address] [facility], [place], [address], 05/01/2020 08:17:02 04/30/2005/01/2020 CBC w/ auto diff NRBC TRIAGE ASSISTANT Not Available [facility] ([facility]) [address] [facility] [place], [address], 05/01/2020 08:17:02 04/30/2005/01/2020 CBC w/ auto diff hematology comments: TRIAGE ASSISTANT Not Available [facility] ([facility]) [address] [facility], [place], [address], 05/01/2020 08:17:02 04/30/2005/01/2020 CMP, serum or plasm a glucose 109 mg/dL 65-99 above high normal Not Available [facility] ([facility]) [address] [place], [address], 05/01/2020 08:17:03 04/30/2005/01/2020 CMP, serum or plasm a BUN 12 mg/dL 6-24 Not Available [facility] ([facility]) [address] [place], [address], 05/01/2020 08:17:03 04/30/2005/01/2020 CMP, serum or plasm a creatinine 0.65 mg/dL 0.57-1 .00 Not Available [facility] ([facility]) [address] [place], [address], 05/01/2020 08:17:03 04/30/2005/01/2020 CMP, serum or plasm a eGFR if nonafricn AM 99 mL/mi n/1.7 3 >59 Not Available [facility] ([facility]) [address] [facility] [place], [address], 05/01/2020 08:17:03 04/30/20 20 05/01/2020 CMP, serum or plasm a eGFR if africn AM 114 mL/mi n/1.7 3 >59 Not Available [facility] ([facility]) [address] [facility] [place], [address], 05/01/2020 08:17:03 04/30/20 20 05/01/2020 CMP, serum or plasm a BUN/creatini ne ratio 18 9-23 Not Available [facility] ([facility]) [address] [facility] [place], [address], 05/01/2020 08:17:03 04/30/2005/01/2020 CMP, serum or plasm a sodium 139 mmol/ L 134-14 4 Not Available [facility] ([facility]) [address] [facility] [place], [address], 05/01/2020 08:17:03 04/30/2005/01/2020 CMP, serum or plasm a potassium 4.4 mmol/ L 3.5-5. 2 Not Available [facility] ([facility]) [address] [facility] [place], [address], 05/01/2020 08:17:03 04/30/2005/01/2020 CMP, serum or plasm a chloride 96 mmol/ L 96-106 Not Available [facility] ([facility]) [address] [facility] [place], [address], 05/01/2020 08:17:03 04/30/2005/01/2020 CMP, serum or plasm a carbon dioxide, total 27 mmol/ L 20-29 Not Available [facility] ([facility]) [address] [facility] [place], [address], 05/01/2020 08:17:03 04/30/2005/01/2020 CMP, serum or plasm a calcium 10.0 mg/dL 8.7-10 .2 Not Available [facility] ([facility]) [address] [place], [address], 05/01/2020 08:17:03 04/30/2005/01/2020 CMP, serum or plasm a protein, total 7.0 g/dL 6.0-8. 5 Not Available [facility] ([facility]) [address] [place], [address], 05/01/2020 08:17:03 04/30/2005/01/2020 CMP, serum or plasm a albumin 4.6 g/dL 3.8-4. 9 Not Available [facility] ([facility]) [address] [place], [address], 05/01/2020 08:17:03 04/30/2005/01/2020 CMP, serum or plasm a globulin, total 2.4 g/dL 1.5-4. 5 Not Available [facility] ([facility]) [address] [place], [address], 05/01/2020 08:17:03 04/30/2005/01/2020 CMP, serum or plasm a A/G ratio 1.9 1.2-2. 2 Not Available [facility] ([facility]) [address] [place], [address], 05/01/2020 08:17:03 04/30/2005/01/2020 CMP, serum or plasm a bilirubin, total 0.5 mg/dL 0.0-1. 2 Not Available [facility] ([facility]) [address] [place], [address], 05/01/2020 08:17:03 04/30/2005/01/2020 CMP, serum or plasm a alkaline phosphatase 231 IU/L 39-117 above high normal Not Available [facility] ([facility]) [address] [facility], [place], [address], 05/01/2020 08:17:03 04/30/20 20 05/01/2020 CMP, serum or plasm a AST (SGOT) 83 IU/L 0-40 above high normal Not Available [facility] ([facility]) [address] [facility], [place], [address], 05/01/2020 08:17:03 04/30/20 20 05/01/2020 CMP, serum or plasm a ALT (SGPT) 63 IU/L 0-32 above high normal Not Available [facility] ([facility]) [address] [facility], [place], [address], 05/01/2020 08:17:03 04/30/20 20 04/30/2020 urina lysis , dipst ick Leukocytes Negati ve Not Available In-Office Order Internal Use Only DO Not Attach Compendium DO Not Attach Compendium, Do Not Delete/merge, [id number] 04/30/2020 11:03:06 04/30/2004/30/2020 urina lysis , dipst ick Nitrite negati ve Not Available In-Office Order Internal Use Only DO Not Attach Compendium DO Not Attach Compendium, Do Not Delete/merge, [id number] 04/30/2020 11:03:06 04/30/2004/30/2020 urina lysis , dipst ick Urobilinogen .2 Not Available In-Of fice Order Internal Use Only DO Not Attach Compendium DO Not Attach Compendium, Do Not Delete/merge, [id number] 04/30/2020 11:03:06 04/30/2004/30/2020 urina lysis , dipst ick Protein Negati ve Not Available In-Office Order Internal Use Only DO Not Attach Compendium DO Not Attach Compendium, Do Not Delete/merge, [id number] 04/30/2020 11:03:06 04/30/20 20 04/30/2020 urina lysis , dipst ick pH 6.5 Not Available In-Office Order Internal Use Only DO Not Attach Compendium DO Not Attach Compendium, Do Not Delete/merge, [id number] 04/30/2020 11:03:06 04/30/20 20 04/30/2020 urina lysis , dipst ick Blood Negati ve Not Available In-Office Order Internal Use Only DO Not Attach Compendium DO Not Attach Compendium, Do Not Delete/merge, [id number] 04/30/2020 11:03:06 04/30/20 20 04/30/2020 urina lysis , dipst ick Specific [place] 1.020 Not Available In-Off ice Order Internal [...] r spine No observ ation record ed. [address], [place], [address], 02/07/2020 17:22:18 02/19/20 20 02/19/2020 NM, bone scan No observ ation record ed. ss[facility] [address] [facility] [place], [address], 02/19/2020 17:52:46 03/25/20 20 03/25/2020 bone densi ty No observ ation record ed. [facility] [place], [address], 03/28/2020 12:17:03 09/12/19 21 09/10/2020 cardi ac stres s test No observ ation record ed. [facility] [address], [place], [address], 09/12/2020 16:33:08 12/18/19 21 12/09/2020 pulmo nary funct ion test* No observ ation record ed. [facility] [address], [place], [address], 12/17/2020 15:14:10 01/03/20 21 01/02/2021 US, duple x, renal arter y No observ ation record ed. [facility] [address], [place], [address], 01/02/2021 14:47:22 01/03/20 21 01/02/2021 stres s echoc ardio gram No observ ation record ed. [facility] [address], [place], [address], 01/02/2021 14:47:41 11/28/19 24 11/25/2023 US, echoc ardio gram, trans esoph ageal No observ ation record ed. [facility] [address] [facility] [address], [place], [address], 12/08/2023 11:32:40 01/16/20 24 11/23/2023 CT, angio gram, chest , w/ contr ast No observ ation record ed. mmetias [address] [place], [address], 01/16/2024 15:25:06 Result Notes None recorded. Problems Name Problem SNOMED Code Status Onset Date Resolution Date Notes Provider Name and Address Organization Details Recorded Time Drug therapy finding 528612023 Active 2015 CHIO Niño, [place] - [facility] 0 11:49:27 Enzyme level - finding 883250075 Active 2017 CHIO Niño[place] [facility] 0 11:49:27 Fibromyalgia 038395331 Active 2011 Kallie Sloan [place] null, [place] [facility] 0 11:49:27 Hypertensive disorder 83104403 Active 2012 Kallie S[place] [facility] 0 11:49:27 Osteopenia 531124995 Active 2011 Kallie S[place] [facility] 0 11:49:27 Rheumatoid arthritis 00960338 Active 2017 Kallie S[place] [facility] 0 11:49:27 Problem Notes None recorded. Procedures Surgical History Date Name Laterality Status Provider Name and Address Organization Details Recorded Time hysterectomy completed Anabela Blanc [place] - [facility] 09/06/2019 12:01:29 Imaging Results Imaging Date Name Status LastModified by Organization Details LastModified Time 01/28/2020 XR, lumbar spine completed milly [place] [address] [place], [address], 02/07/2020 17:22:18 02/19/2020 NM, [facility] [address] [place], [address], 02/19/2020 17:52:46 03/25/2020 bone density completed [facility][1] [address] [place], [address], 03/28/2020 12:17:03 09/10/2020 cardiac stress test completed [facility] ([facility]) [address] [facility], [place], [address], 09/12/2020 16:33:08 12/09/2020 pulmonary function test* completed [facility] ([facility]) [address] [facility], [place], [address], 12/17/2020 15:14:10 01/02/2021 US, duplex, renal artery completed [facility] ([facility] [address] [facility], [place], [address], 01/02/2021 14:47:22 01/02/2021 stress echocardiogram completed [facility] ([facility] [address] [facility], [place], [address], 01/02/2021 14:47:41 11/25/2023 US, echocardiogram, transesophageal completed [facility] [address] [facility] [place], [address], 12/08/2023 11:32:40 11/23/2023 CT, angiogram, chest, w/ contrast completed [facility] [address] [facility] [place], [address], 01/16/2024 15:25:06 Procedure Notes None recorded. Medical Equipment None Reported. Allergies Allergen ID Allergen Name Allergen Category Reaction Reaction Severity Criticality Documentation Date Start Date Code Code System Note Provider Name and Address Organization Details Recorded Time [id number] Substance with sulfonami de structure and antibacte rial mechanism of action (substanc e) medicatio n hives Not available Not available 09/06/2019 59480 [id number] SNOMED Not Available Not Available Not Available 643489 Cipro medicatio n Not available Not available Not available 09/06/201948217 3 RxNorm Not Available Not Available Not Available [id number] ciproflox acin medicatio n myalgias (muscle pain) [...] DateTime 01/25/2020 157.48 cm Kallie Sloan MA [facility] 01/25/20 20 11:49:06 Date Recorded Body height Provider Name an d Address Organization Details Last Updated DateTime 01/30/2020 157.48 cm Anabela Blanc MA [facility] 01/30/2020 14:32:47 Date Recorded Body height Body mass index (BMI) Body weight Body temperature Oxygen saturation Oxygen saturation in Arterial blood by Pulse oximetry Heart rate Systolic blood pressure Diastolic blood pressure Provider Name and Address Organization Details Last Updated DateTime 0 157.48 cm 31.1 kg/m2 71349.7 g 98.1 [degF] 93 % 93 % 83 /min 108 mm[Hg] 82 mm[Hg] Anabela Blanc MA [facility] 0 10:40:52 Date Recorded Body height Body mass index (BMI) Body weight Body temperature Oxygen saturation Oxygen saturation in Arterial blood by Pulse oximetry Heart rate Systolic blood pressure Diastolic blood pressure Provider Name and Address Organization Details Last Updated DateTime 0 157.48 cm 31.3 kg/m2 98489 g 98 [degF] 98 % 98 % 80 /min 142 mm[Hg] 90 mm[Hg] Kallie Sloan MA [facility] 0 14:59:34 Social History Question Answer Notes LastModified by Organizat ion Details LastModified Time Tobacco Smoking Status Former Smoker 2012 Anabela Blanc MA null, [facility] 09/06/2019 12:01:14 In The 14 Days Before Symptom Onset, Have You Had Close Contact With A Laboratory-confir med COVID-19 While That Case Was Ill? No Information not available 11/26/2019 If Patient Spent Time In [facility] - Does The Patient Live In [facility]? No Information not available 11/26/2019 In The 14 Days Before Symptom Onset, Have You Had Close Contact With A Person Who Is Under Investigation For COVID-19 While That Person Was Ill? No Information not available 11/26/2019 In The 14 Days Before Symptom Onset, Did The Patient Spend Time In [facility]? No Information not available 11/26/2019 Have [...] Eating Disorder N Anemia N Heart Attack (SD) N Anxiety Disorder Y Diabetes N Muscle, [...] SNOMED-CT Code Diagnosis ICD10 Code Diagnosis Note [id number] Anabela Blanc MA [facility] [address] [place] [address] 09/06/2019 11:41:44 09/07/2019 16:55:26 Chronic depression 437757651 F34.1 Long-term drug therapy 672486101 Z79.899 Essential hypertension 98041481 I10 [id number] Jam Ledezma PA-C [facility] [address] [place] [address] 09/13/2019 11:39:42 09/13/2019 12:10:30 Essential hypertension 88743005 I10 [id number] Jam Leedzma PA-C [facility] [address] [place] [address] 11/26/2019 10:49:30 11/26/2019 12:28:39 Essential hypertension 50837187 I10 Mitral valve prolapse 40 1013325 I34.1 History of transient ischemic attack 076337504 Z86.73 Seasonal a llergic rhinitis 167536371 J30.2 [id number] Jam Ledezma PA-C [facility] [address] [place] [address] 12/10/2019 10:48:06 12/12/2019 11:23:50 Essential hypertension 45176776 I10 Chronic depression 70860 0009 F34.1 Nausea and vomiting 1692 1999 R11.2 [id number] Jam Ledezma PA-C [facility] [address] [place] [address] 12/11/2019 13:09:52 12/12/2019 11:45:12 Mixed hyperlipidemia 964698607 E78.2 [id number] Jam Ledezma PA-C [facility] [address] [place] [address] 12/27/2019 11:02:54 12/28/2019 08:34:57 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 Seasonal a llergic rhinitis 290358943 J30.2 [id number] Jam Ledezam PA-C [facility] [address] [place] [address] 01/25/2020 10:10:00 01/28/2020 08:04:28 Lumbar radiculopathy 330209233 M54.16 [id number] KELLEN Liao [facility] [address] [place] [address] 01/30/2020 11:07:31 01/31/2020 07:58:24 Idiopathic hypercalcemia 386535668 E83.52 Stress fra cture of tibia 798020695 M84.361A Osteoporosis 55801785 M8 1.0 [id number] Anabela Blanc MA [facility] [address] [place] [address] 02/11/2020 10:34:29 02/11/2020 15:10:24 Pain in right lower limb 960132752 M79.604 Long-term drug therapy 071386364 Z79.631 [id number] Jam Ledezma PA-C [facility] [address] [place] [address] 02/20/2020 14:44:57 02/20/2020 15:38:07 Pathological fracture of right tibia 0113291349 1574396 M84.461G Complaining of a rash 16 1412893 R21 [id number] Jam Ledezma PA-C [facility] [address] [place] [address] 04/22/2020 09:33:20 04/23/2020 12:40:11 Osteopenia 896863518 M85.88 Pathologic al fracture of right tibia 8086900531 5759978 M84.461G Health Concerns Section Related Observation LastModified by Organization Detai ls LastModified Time None Recorded Concern Status LastModified by Organization Details LastModified Time None Recorded Advance Directives Directive None Recorded Payers Encounter Date Sequence Insurance Name Policy Number Policy Bright Covered Member ID Bright Member ID Guarantor Name 01/25/2020 1 [facility] PRIOR TO 02/26/2021 (MEDICAID REPLACEMENT - HMO) Antoinette Da Silva [id number] Antoinette Da Silva 01/30/2020 1 [facility] PRIOR TO 02/26/2021 (MEDICAID REPLACEMENT - HMO) Antoinette Da Silva [id number] Antoinette Da Silva 02/11/2020 1 [facility] PRIOR TO 02/26/2021 (MEDICAID REPLACEMENT - HMO) Antoinette Da Silva [id number] Antoinette Da Silva 02/20/2020 1 [facility] PRIOR TO 02/26/2021 (MEDICAID REPLACEMENT - HMO) Antoinette Da Silva [id number] Antoinette Da Silva 04/22/2020 1 [facility] PRIOR TO 02/26/2021 (MEDICAID REPLACEMENT - HMO) Antoinette Da Silva [id number] Antoinette Da Silva Notes Date Note Type [...] osteoporosis Jam Ledezma PA-C Attn: Accounting[address] [place], [address], [facility] 01/25/2020 12:05:40 01/30/2020 text/html questions [...] osteoporosis... Jam Ledezma PA-C Attn: Accounting[address] [place], [address], [facility] 01/30/2020 15:08:21 02/11/2020 text/html started january 17..pain in medial lower rt leg..no known injury. went to ER xrays were done. findings of an old healed fracture that the patient denies ever having broken. pain has not improved may have worsened. Anabela Blanc MA [facility], [facility] 02/11/2020 11:25:00 02/20/2020 text/html bone scan reviewed..rib with uptake and rt tib fib with intense uptake they say likely posttraumatic but she denies injury. now skin on forearms are red and that is pruritic not painful Jam Ledezma PA-C Attn: Accounting[address] [place], [address], [facility] 02/20/2020 15:32:42 04/22/2020 text/html follow up on leg fractures that dont belong... Jam Ledezma PA-C Attn: Accounting[address] [facility], [place], [address], [facility] 04/22/2020 17:56:09 OBGyn Episode No OBEpisode recorded.
--- OUTSIDE RECORDS SUMMARY | 2024-12-20 08:53 | XMS_ITS ---
Care Plan - [facility] Created on: December 20, 2024 NIGHAT DELANEY : [id number] Sex: Female Author Organization [facility] Address [address] [place] [address] Phone Care Team Providers Care Chemist Internship Name Role Phone JAM MCDONNELL PA-C Primary Care Provider [phone]
--- OUTSIDE RECORDS SUMMARY | 2024-12-20 08:54 | XMS_ITS | Clinical Summary ---
Author Organization [facility] Address [address] [place] [address] Phone Care Team Providers Care Wheel Shop Supervisor Name Role Phone JAM MCDONNELL PA-C Primary Care Provider [phone] Reason for Visit and Chief Complaint LEXISCAN [...] Time Diagnosis LEXISCAN CARDIOLITE ELTON GROVER MD [facility] OP HRT 08/02/20 23 9:30AM 11:24AM Insurance Includes: Active Insurance Policies Plan Name Member ID Group # Subscriber Relationship Effect cyn Dates 1 - [employer] [id number] NIGHAT DELANEY Self Clinical Notes Includes: Clinical Notes from this encounter No Clinical Notes Recorded
--- OUTSIDE RECORDS SUMMARY | 2024-12-20 08:54 | XMS_ITS | Clinical Summary ---
Author Organization [facility] Address [address] [place] [address] Phone Care Team Providers Care Personal Driver Name Role Phone JAM MCDONNELL PA-C Primary Care Provider [phone] Reason for Visit and Chief Complaint ECHOCARDIOGRAM [...] Check-Out Time Diagnosis ECHOCARDIOGRAM ELTON GROVER MD [facility] OP HRT 08/02/20 23 8:35AM 9:29AM Insurance Includes: Active Insurance Policies Plan Name Member ID Group # Subscriber Relationship Effect cyn Dates 1 - [employer]AGE [id number] NIGHAT DELANEY Self Clinical Notes Includes: Clinical Notes from this encounter No Clinical Notes Recorded
--- OUTSIDE RECORDS SUMMARY | 2024-12-20 08:54 | XMS_ITS | Encounter Summary ---
Author Organization [facility] Address [address] [place] [address] Care Team Providers Care Yard General Car Supervisor Name Role Phone Yg Lee MD Primary Care Provider [phone] Shandra Ruffin APRN-[facility] Primary Care Provider Yg Lee MD Primary Care Provider [phone] Shandra Ruffin APRN-[facility] Primary Care Provider Yg Lee MD Primary Care Provider [phone] Shandra Ruffin APRN-[facility] Primary Care Provider Encounter Details Date Type Department Care Team (Late st Contact Info) Description 05/18/[address] [facility] [address] [place] [address] Mitchell Zamarripa MD [address] [place] [address] [place] [address] Social History Tobacco Use Types Packs/Day Years Used Date Smoking Tobacco: Every Day Cigarettes Alcohol Use Standard Drinks/Week Comments Yes 0 (1 standard drink = 0.6 oz pur e alcohol) occasional Comments No Sex and Gender Information Value Date Recorded Sex Assigned at Not on file Legal Sex Female 1:04 PM ROOM COOLER INSTALLER Gender Identity Not on file Sexual Orientation [...] seen sooner. Please give her a call. [facility] Patient Call Back number: [phone]. documented in this encounter Plan of Treatment Not on file documented as of this encounter Visit Diagnoses Not on filedocumented in this encounter Care Teams Yard General Car Supervisor Relationship Specialty Start Date End Date Yg Lee MD [address] [place] [phone] PCP - General 10/28/11 05/23/19 Shandra Ruffin APRN-BOTTOMING ROOM INSPECTOR [address] [place], [place] [phone] PCP - General 05/24/19 07/20/20 Yg Lee MD [address] [place], [place] [phone] PCP - General Internal Medicine 07/21/20 07/21/20 Shandra Ruffin APRN-BOTTOMING ROOM INSPECTOR [address] [place] [address] PCP - General 07/22/20 11/15/21 Yg Lee MD [address] [place] [phone] PCP - General Internal Medicine 11/16/21 04/01/22 Shandra Ruffin APRN-BOTTOMING ROOM INSPECTOR [address] [place] [address] [place] [address] PCP - General 04/02/22 documented as of this encounter
--- OUTSIDE RECORDS SUMMARY | 2024-12-20 08:54 | XMS_ITS | Encounter Summary ---
Author Organization [facility] Address [address] [place] [address] Care Team Providers Care Fork Assembler Name Role Phone Jose Cruz Ledezma Primary Care Provider [phone] Yg Lee MD Primary Care Provider + Mitchell Zamarripa MD Unavailable [phone] Brit More WEIGHBRIDGE OPERATOR Unavailable [phone] Cliff Ronquillo NP Unavailable [phone] Dick Aguilar Unavailable [phone] Gavin Sewell MD Unavailable [phone] Reason for Visit * Reason Onset Date Comments Scheduling Appointments 03/24/2020 Called f or DEXA appointment reminder Encounter Details Date Type Department Care Team (Late st Contact Info) Description 03/24/2020 Telephone [facility] [address] [place] [address] Valencia Hernandez RT Scheduling Appointments (Called for DEXA appointment reminder) Social History Tobacco Use Types Packs/Day Years Used Date Smoking Tobacco: Former Smokeless Tobacco: Never Alcohol Use Standard Drinks/Week Comments Yes 0 (1 standard drink = 0.6 oz pur e alcohol) occasional Comments No Sex and Gender Information Value Date Recorded Sex Assigned at Not on file Legal Sex Female 11:50 PM DRUM BARKER OPERATOR Gender Identity Not on file Sexual [...] COVID: Suspected 07/22/2024 07/22/2024 07/22/2024 9:25 AM DRUM BARKER OPERATOR documented as of this encounter Care Teams Fork Assembler Relationship Specialty Start Date End Date Jose Cruz Ledezma PA [address] [place] [address] PCP - General 01/24/20 08/18/20 Yg Lee MD [address] [place] [address] PCP - General Internal Medicine 08/19/20 Mitchell Zamarripa MD [address] [place] [address] Referring Physician Rheumatology 03/11/22 Brit More NP [address] [place] [address] Nurse Practitioner Cardiovascular Disease 03/11/22 Cliff Ronquillo NP [address] [place] [address] [address] [place] [address] Nurse Practitioner Nurse Practitioner 05/05/22 Dick Aguilar PA [address] [place] [address] [address] [place] [address] Physician Medical Claims Specialist Orthopedic Surgery 11/11/22 Gavin Sewell MD [address] [facility] [address] GONZALE[address] [facility] [address] [place] [address] Surgeon Orthopedic Surgery 12/24/22 documented as of this encounter
[2024-12-20] MEDS: HYDROcodone/acetaminophen (*CRX) 5-325 MG TABLET 1 TAB PO (09:19)
--- NOTE | 2024-12-20 09:56 | PCRCNOTE ---
Patient stated that she does not want a CPAP while here.
--- OUTSIDE RECORDS SUMMARY | 2024-12-20 11:56 | XMS_ITS | Clinical Summary ---
Author Organization [facility] Address [address] [place] [address] Care Team Providers Care Marketing Administrative Assistant Name Role Phone Shandra Ruffin Malcolm WISDOM-INSTRUCTION ASSISTANT PRINCIPAL Primary Care Provider Source Comments [facility],non-owned Affiliates and Associated Physician Practices is amultiple site organization consisting of ambulatory clinics and hospital sitesin [place], [place], [place]. This disclosure is being madepursuant to the Care Everywhere program and may not contain all information available regarding this patient. Last updated 18.[facility] Allergies Active Allergy Reactions Criticality Noted Date [...] (AF LURIA, FLUZONE TRIVALENT; 6MO+) (IIV3) 06/16/2016,06/11/2015,06/01/2014,2012,06/14/2012,06/01/2011 Cov6Rooms primary monoval ent 12+ yr 0.3mL Purple [...] on file Legal Sex Female 1:04 PM SUPERINTENDENT OPERATIONS DIVISION Gender Identity Not on file Sexual Orientation [...] Comments COMPREHENSIVE METABOLIC PANEL 08/31/2022 9:26 AM SUPERINTENDENT OPERATIONS DIVISION from Last 3 Months or Most Recently Relevant to Health Maintenance Results * (ABNORMAL) COMPREHENSIVE METABOLIC PANEL (08/31/2022 9:26 AM SUPERINTENDENT OPERATIONS DIVISION) Glucose 105(H) 65 - 99 mg/dL [facility] [...] 29 U/L [facility] Comment: Test Performed at: [facility] [address] [place] [address] LUISA LAWRENCE DO,MPH 08/31/2022 9:26 AM SUPERINTENDENT OPERATIONS DIVISION 08/31/2022 9:27 AM SUPERINTENDENT OPERATIONS DIVISION us Mitchell Zamarripa MD LAB - CHEMISTRY ORDERABLES Final Result [facility] [address] [place] [address] from Last 3 Months or Most Recently Relevant to Health Maintenance Insurance [facility] MEDICARE ANTHEM ANTHEM Advance Directives * FULL RESUSCITATION (Latest Code Status on File) Date Activated Date Inactivated Comments 11/08/2011 12:50 PM 11/10/2011 12:21 AM Care Teams Marketing Administrative Assistant Relationship Specialty Start Date End Date Shandra uRffin, HOTEL DIRECTOR-INSTRUCTION ASSISTANT PRINCIPAL [address] [place] [address] PCP - General 04/02/22
--- OUTSIDE RECORDS SUMMARY | 2024-12-20 11:57 | XMS_ITS | Clinical Summary ---
Author Organization [facility] Address [address] [place] [address] Care Team Providers Care Distribution Engineering Technologist Name Role Phone Yg Lee MD Primary Care Provider [phone] Allergies Active Allergy Reactions Criticality Noted Date [...] (Dexilant) 60 mg Delayed Release capsule Lot: [id number] Ex: 10/21 Qty: 8 5 Capsule Active [...] on 12/04/2024 fluticasone propionate (FLONASE) 50 mcg/spray [place], Suspension nasal inhaler USE 1 OR 2 [...] Active apixaban (ELIQUIS) 5 mg tablet Lot: [id number] ex: 05/2025 qty: 8 14 Tablet Active [...] t be different from the original. [facility] [id number] 09/01/22 [id number] 12/04/24 Problem Noted Date Diagnosed [...] Type Department Care Team Description 12/18/2024 Refill [facility] [place] [address] [place] [address] Yg Lee MD Essential hypertension, benign 12/06/2024 Telephone [place] [address] [address] [place] [address] Yg Lee MD Needs Orders Written 12/04/2024 3:00 PM CDT Office Visit [address] [place] [phone] Yg Lee MD Pulmonary nodule (Primary Dx); Atrial fibrillation, unspecified type ([facility]); Moderate mitral regurgitation; Essential hypertension, benign; Other specified hypothyroidism; Other hyperlipidemia; Abnormal glucose; Hypomagnesemia; Vitamin D deficiency; Vitamin B12 deficiency (non anemic); Other osteoporosis with current pathological fracture with delayed healing, subsequent encounter; Menopause; Gastroesophageal reflux disease without esophagitis; Psoriatic arthritis ([facility]); Pulmonary hypertension ([facility]); Other emphysema ([facility]) 12/03/[address] [place] [address] Yg Lee MD 11/27/2024 External Device Data ST[facility] ABSTRACTION Provider, Abstract 11/19/2024 Abstract [place] [address] [facility] [address] [place] [phone] Yg Lee MD 11/13/[address] [place] [address] Yg Lee MD Needs Orders Written 11/05/2024 External Device Data STL ABSTRACTION Provider, Abstract 10/17/2024 External Device Data STL ABSTRACTION Provider, Abstract 10/15/2024 Refill [place] [address] [address] [facility] [address] [place] [phone] Yg Lee MD Gastroesophageal reflux disease without esophagitis 10/12/[address] [place] [address] Provider, Abstract 10/05/2024 Telephone [place] [address] [address] [facility] [address] [place] [phone] Yg Lee MD Needs Appointment from Last 3 Months Immunizations Immunization Administration Dates Next Due (ADACEL/BOOSTRIX)(10 YR UP) TDAP VACCINE, 0.5ML, IM 06/15/2011 (PFIZER)(12 YR UP) COVID-19 VACCINE - EMERGENCY USE AUTHORIZATION, MRNA, [id number](PF) 30 MCG/0.3 ML IM SUSP 04/22/2021,04/01/2021 (PNEUMOVAX 23)(50 YRS UP) PN EUMOCOCCAL POLYSACCHARIDE (PPV23) 0.5 ML, IM 07/18/2017,06/15/2011 (PREVNAR 13)(6 WKS UP) PNEUM OCOCCAL CONJUGATE (PCV13) 0.5 ML, IM 10/20/2020 (PREVNAR 20)(6 WKS UP) PNEUM OCOCCAL CONJUGATE VACCINE 20-VALENT (PCV20), POLYSACCHARIDE [id number] CONJUGATE, ADJUVANT 0.5 ML (PF) IM 02/23/2023 [...] on file Legal Sex Female 6:04 AM MANAGER COMMUNICATION Gender Identity Not on file Sexual Orientation [...] Description 06/17/2025 11:20 AM CDT Office Visit [facility] [address] [place] [address] Yg Lee MD [address] [facility] [address] [place] [address] Health Maintenance Due Date Last [...] exists Medical Devices Implanted Type Area Manager Books Device Identifier Shelf Expiration Date Model / Serial / Lot Stent Pncrtc Frmn Flx 5fr 5cm 6552 - [id number] Implanted:Qty: 1 on 02/24/2018 by John White MD at [facility] Stent N/A: Pancreas [employer] [id number] 09/29/2022 6552 / / [id number] Procedures Procedure Name Priority Date/Time Associated Diagnosis Comments HEMOGLOBIN A1C Routine 06/15/2024 9:16 AM CDT Abnormal glucose MAMMO 3D KIRILL SCREEN BILAT W OR WO CAD Routine 05/16/2024 1:15 PM CDT Screening mammogram, encounter for from Last 3 Months or Most Recently Relevant to Health Maintenance Results * HEMOGLOBIN A1C (06/15/2024 9:16 AM CDT) HEMOGLOBIN A1C 5.2 <5.7 % of total Hgb [address] [employer] Santana Comment: For the purpose of screening for the presence of diabetes: <5.7% Consistent with the absence of diabetes 5.7-6.4% Consistent with increased risk for diabetes (prediabetes) > or =6.5% Consistent with diabetes This assay result is consistent with a decreased risk of diabetes. Currently, no consensus exists regarding use of hemoglobin A1c for diagnosis of diabetes in children. According to [place] Diabetes Association (ADA) guidelines, hemoglobin A1c <7.0% represents optimal control in non- diabetic patients. Different metrics may apply to specific patient populations. Standards of Medical Care in Diabetes(ADA). ESTIMATED AVERAGE GLUCOSE (MG/DL) 103 mg/dL [employer] Santana ESTIMATED AVERAGE GLUCOSE (MMOL/L) 5.7 mmol/L [employer] [facility] Comment: FASTING:YES FASTING: YES [facility]: [facility] [address] [place] [address] Ceferino Dasilva Vo Blood 06/15/2024 9:16 AM CDT 06/15/2024 9:17 AM CDT us Yg Lee MD CHEMISTRY ORDERABLES Final Re sult [facility] [phone] [facility] [address] [place] [address] * MAMMO 3D KIRILL SCREEN BILAT W [...] Type:RX Commercial Address: [address] [place] [facility] Advance Directives For more information, please contact: [phone] Documents on File Type Date Recorded Patient Relish Blender Expl anation Advance Directive Living Will 10/20/2020 [...] 12:41 PM 10/31/2015 7:49 PM Care Teams Distribution Engineering Technologist Relationship Specialty Start Date End Date Yg Lee MD PCP - General Internal Medicine 12/20/18
--- OUTSIDE RECORDS SUMMARY | 2024-12-20 11:58 | XMS_ITS | Encounter Summary ---
Author Organization [facility] Address [address] [place] [address] Care Team Providers Care Arch Pad Cementer Name Role Phone Yg Lee MD Primary Care Provider [phone] Reason for Referral * CT Scan (Routine) - Pending Review Specialty Diagnoses / Procedures Referred By Mariaa t Referred To Contact Diagnoses Pulmonary nodules Procedures CT CHEST W CONTRAST Yg Lee MD [address] [place] [address] [address] [place] [address] Phone: tel: fax: [address] [address] Phone: tel: fax: Referral ID Status Reason Start Date Expiration Date V isits Requested Visits Authorized [id number] Pending Review 11/13/2024 12/14/2025 1 1 Reason for Visit * Reason Comments Needs Orders Written Encounter Details Date Type Department Care Team (Late st Contact Info) Description 11/13/2024 Telephone [facility] [address] [place] [address] Yg Lee MD [address] [place] [address] [address] [place] [address] Needs Orders Written Social History [...] on file Legal Sex Female 6:04 AM DIRECTOR OF CRITICAL CARE Gender Identity Not on file Sexual Orientation Not on file Occupation Industry Job Start Date Job End Date Not on file Not on file Not on file Not on file documented as of this encounter Miscellaneous Notes * Telephone Encounter - Alicia Yost PCA - 11/13/2024 2:24 PM CDT Called and spoke with patient and faxed to the [facility] and I let patient know that if she has not heard from them then to give them a call * Telephone Encounter - Yg Lee MD - 11/13/2024 12:49 PM CDT Order placed * Telephone Encounter - Yudi Montiel - 11/13/2024 10:38 AM CDT Copied from [facility] #[id number]. Topic: CPA Information Request - Order or Referral Request >> Nov 13, 2024 10:36 AM Yudi Duran wrote: Caller Name: Antoinette Da Silva Patient/Caregiver Callback Number: Patient Contact Information: [phone] Call Notes: order for ct scan with [...] Description 06/17/2025 11:20 AM CDT Office Visit [facility] [place] [address] Yg Lee MD [address] [place] [address] [address] [place] [address] Scheduled Orders Name Type Priority Associated Diagnoses Orde r Schedule CT CHEST W CONTRAST Imaging Routine Pulmonary nodules 1 Occurrences starting 11/13/2024 until 11/13/2025 documented as of this encounter Visit Diagnoses Diagnosis Pulmonary nodules- Primary Other nonspecific abnormal finding of lung field documented in this encounter Care Teams Arch Pad Cementer Relationship Specialty Start Date End Date Yg Lee MD PCP - General Internal Medicine 12/20/18 documented as of this encounter
--- OUTSIDE RECORDS SUMMARY | 2024-12-20 11:58 | XMS_ITS | Clinical Summary ---
Author Organization [facility] Address [address] [place] [address] Phone Care Team Providers Care Scrapper Name Role Phone JAM MCDONNELL PA-C Primary Care Provider [phone] Reason for Visit and Chief Complaint HEART [...] CENTER CHECK UP TIFFANY HOWARD [facility]- 4 10:58AM 11:28AM Insurance Includes: Active Insurance Policies Plan Name Member ID Group # Subscriber Relationship Effect cyn Dates 1 - [employer] ADVANTAGE [id number] NIGHAT DELANEY Self Clinical Notes Includes: Clinical Notes from this encounter No Clinical Notes Recorded
--- OUTSIDE RECORDS SUMMARY | 2024-12-20 11:58 | XMS_ITS ---
Care Plan - [facility] Created on: December 20, 2024 NIGHAT DELANEY : 1960 Sex: Female Author Organization [facility] Address [address] [place] [address] Phone Care Team Providers Care Grinder Set Up Operator Universal Name Role Phone JAM MCDONNELL PA-C Primary Care Provider [phone]
--- OUTSIDE RECORDS SUMMARY | 2024-12-20 11:58 | XMS_ITS | Clinical Summary ---
Author Organization [facility] Address [address] [place] [address] Phone Care Team Providers Care Foundry Worker General Name Role Phone JAM MCDONNELL PA-C Primary Care Provider [phone] Reason for Visit and Chief Complaint [...] Diagnosis HOSPITAL FOLLOW UP EXAM TIFFANY HOWARD [facility]- 4 12:43PM 1:47PM Insurance Includes: Active Insurance Policies Plan Name Member ID Group # Subscriber Relationship Effect cyn Dates 1 - [employer]AGE [id number] NIGHAT DELANEY Self Clinical Notes Includes: Clinical Notes from this encounter No Clinical Notes Recorded
--- OUTSIDE RECORDS SUMMARY | 2024-12-20 11:58 | XMS_ITS ---
Author Organization [facility] Address [address] [place] [address] Phone Care Team Providers Care Skiff Operator Name Role Phone JAM MCDONNELL PA-C Primary Care Provider [phone] Plan of Treatment No Plan of Treatment [...] On 07/08/2010 5:57PM By ALVIN BASS ; [facility] Premarin 1.25 MG OR TABS 09/02/2009 - 08/28/2010 Provi anastasia: Diagnosis: Last Documented On 11/11/2009 9:36AM By BONNIE MORALES ; [facility] Premarin 1.25 MG OR TABS 07/23/2008 - 07/18/2009 Provi anastasia: Diagnosis: Last Documented On 11/11/2009 9:37AM By BONNIE MORALES ; [facility] Amoxicillin 500 MG OR TABS 07/03/2007 - 07/13/2007 Pro vider: Diagnosis: Last Documented On 11/11/2009 9:38AM By BONNIE MORALES ; [facility] Premarin 1.25 MG OR TABS 07/05/2006 - 06/30/2007 Provi anastasia: Diagnosis: Last Documented On 11/11/2009 9:39AM By BONNIE MORALES ; [facility] Premarin 1.25 MG OR TABS 08/27/2005 - 07/23/2006 Provi anastasia: Diagnosis: Last Documented On 11/11/2009 9:40AM By BONNIE MORALES ; [facility] Medications Administered Includes: Administered Medications in patient's chart No Administered Medications Recorded Results Includes: Results from 12/21/2023 through 12/20/2024 No Results Recorded For Specified Dates History of Present Illness History of Present Illness not supported for this document type No History of Present Illness Recorded Social History Description Last Updated 11/11/2009 Last Documented On 0 9:43AM ; [facility] Exercise frequency was three times/week 11/11/2009 Last Documented On 0 9:43AM ; [facility] Exercising regularly 11/11/2009 Last Documented On 0 9:43AM ; [facility] Sexually active 11/11/2009 Last Documented On 0 9:43AM ; [facility] Sexually active with 1 partners in the l ast year 11/11/2009 Last Documented On 0 9:43AM ; [facility] Smoking Status Unknown Medical History Includes: Medical History in patient's chart Description Last Updated HYSTERECTOMY ~BTL 11/11/2009 Last Documented On 0 9:43AM ; [facility] 2 living children 11/11/2009 Last Documented On 0 9:43AM ; [facility] A mammogram was performed 11/11/2009 Last Documented On 0 9:43AM ; [facility] A Pap smear was performed 11/11/2009 Last Documented On 0 9:43AM ; [facility] weight: was 7.4 lbs 11/11/2009 Last Documented On 0 9:43AM ; [facility] Breast problems 11/11/2009 Last Documented On 0 9:43AM ; [facility] Delivery date 1983 11/11/2009 Last Documented On 0 9:43AM ; [facility] Duration of labor: was six hr 11/11/2009 Last Documented On 0 9:43AM ; [facility] Gestational age: was 40 weeks 11/11/2009 Last Documented On 0 9:43AM ; [facility] 2 11/11/2009 Last Documented On 0 9:43AM ; [facility] History of the 2nd : 11/11/2009 Last Documented On 0 9:43AM ; [facility] Last mammogram date: 07/19/08 11/11/2009 Last Documented On 0 9:43AM ; [facility] Last pap smear date 200711/11/2009 Last Documented On 0 9:43AM ; [facility] Oral contraceptives 11/11/2009 Last Documented On 0 9:43AM ; [facility] Status post tubal ligation 11/11/2009 Last Documented On 0 9:43AM ; [facility] Family History Includes: Family History in patient's chart Description Last Updated Family history of Cancer 11/11/2009 Last Documented On 0 9:43AM ; [facility] Family history of thyroid disease 2009 Last Documented On 0 9:43AM ; [facility] Family medical history of high blood pre ssure 11/11/2009 Last Documented On 0 9:43AM ; [facility] Review of Systems Review of [...] Dates 1 - [employer] ADVANTAGE [id number] NIGHAT Guevara Clinical Notes Includes: Signed Clinical Notes starting from 09/17/2022 No Clinical Notes Recorded
--- OUTSIDE RECORDS SUMMARY | 2024-12-20 11:58 | XMS_ITS | Encounter Summary ---
Author Organization [facility] Address [address] [place] [address] Care Team Providers Care Liturgical Music Director Name Role Phone Yg Lee MD Primary Care Provider + Mitchell Zamarripa MD Unavailable [phone] Brit More NP Unavailable [phone] Cliff Ronquillo NP Unavailable [phone] Dick Aguilar Unavailable [phone] Gavin Sewell MD Unavailable [phone] Encounter Details Date Type Department Care Team (Late st Contact Info) Description 12/14/2021 Telephone [facility] [address] [place] [address] Fariha Hampton, RT Social History Tobacco Use Types Packs/Day Years Used Date Smoking Tobacco: Former Smokeless Tobacco: Never Alcohol Use Standard Drinks/Week Comments Yes 0 (1 standard drink = 0.6 oz pur e alcohol) occasional Comments No Sex and Gender Information Value Date Recorded Sex Assigned at Not on file Legal Sex Female 11:50 PM EXECUTIVE KITCHEN MANAGER Gender Identity Not on file Sexual Orientation [...] COVID: Suspected 07/22/2024 07/22/2024 07/22/2024 9:25 AM EXECUTIVE KITCHEN MANAGER documented as of this encounter Care Teams Liturgical Music Director Relationship Specialty Start Date End Date Yg Lee MD PCP - General Internal Medicine 08/19/20 Mitchell Zamarripa MD Referring Physician Rheumatology 03/11/22 Brit More NP Nurse Practitioner Cardiovascular Disease 03/11/22 Cliff Ronquillo NP [address] [place] [address] [address] [facility] [place] [address] Nurse Practitioner Nurse Practitioner 05/05/22 Dick Aguilar PA [address] [place] [address] [address] [facility] [place] [address] Physician Livestock Feeder Orthopedic Surgery 11/11/22 Gavin Sewell MD [address] [place] [address] DR CARLOS QUINTERO [address] [place] [id number] Surgeon Orthopedic Surgery 12/24/22 documented as of this encounter
--- OUTSIDE RECORDS SUMMARY | 2024-12-20 11:59 | XMS_ITS | Referral Summary ---
Author Organization [facility] Address [address] [place] [address] Care Team Providers Care Flight Manager Name Role Phone Mariah Adams MD Primary Care Provider + Mitchell Zamarripa MD Unavailable [phone] Brit More NP Unavailable [phone] Cliff Ronquillo NP Unavailable [phone] Dick Aguilar Unavailable [phone] Gavin Sewell MD Unavailable [phone] Encounters Date Type Department Care Team Description 12/19/2024 9:10 PM CDT - 12/20/2024 7:45 AM CDT Emergency [facility] Emergency Department [address] [place] [address] Puma Mobley MD Surgical wound infection (Primary Dx); Hyponatremia; Hypokalemia Discharge Disposition: Discharge to not defined facility 12/12/2024 2:52 PM CDT - 12/12/2024 11:59 PM CDT Hospital Encounter [facility] [address] [place] [address] Pulmonary nodules Discharge Disposition: Discharge to home or self care 12/11/[address] [address] Zan Wagner from Last 3 Months Allergies [...] 1 tablet (100 mcg total) by mouth thread tool grinder set up operator before breakfast 1 Active celecoxib (CeleBREX) [...] 08/14/2024 Assessment & Plan (08/14/2024 9:48 AM ACCOUNTING MANAGER CONTROLLER): The patient likely has chronic cholecystitis given [...] (04/23/2022): Added automatically from request for surgery [id number] Posterior tibial tendon dysfunction 03/02/2022 Flat foot [...] 01/04/2018 Assessment & Plan (09/19/2018 1:30 PM ACCOUNTING MANAGER CONTROLLER): Low disease activity today on exam. Take [...] How often do you attend chur or rastafarian services? Never 12/23/2022 Do you belong to any clubs o r organizations such as temple groups, unions, fraternal or athletic groups, or [...] staff should administer the PHQ-9) 0 [facility] - Occupational Stress Questionnaire Answer Date Recorded [...] on file Legal Sex Female 11:50 PM ACCOUNTING MANAGER CONTROLLER Gender Identity Not on file Sexual Orientation [...] on file Medical Devices Implanted Type Area Mainframe Programmer Device Identifier Shelf Expiration Date Model / Serial / Lot Exactech Restrictor Cement Cemex Small Od13mm Tpa-13 - [id number] Implanted:Qty: 1 on 05/04/2022 by Gavin Sewell MD at [facility] Left: Shoulder Ex[employer]ech 08/28/2023 TPA-13 / / [id number] Exactech Equinoxe Reverse Shoulder +0mm Tray Humeral Adapter 320-10-00 - [id number] - [id number] Implanted:Qty: 1 on 05/04/2022 by Gavin Sewell MD at [facility] Ex[employer]ech [id number] 04/07/2032 320-10-00 / [id number] / [employer]ech Equinoxe 40mm Small Reverse Constrain Shoulder +2.5mm Liner 320-40-13 - [id number] - [id number] Implanted:Qty: 1 on 05/04/2022 by Gavin Sewell MD at [facility] [employer] 01/31/2024 320-40-13 / [id number] / Ex[employer]ech Equinoxe Lock Reverse Shoulder Glenosphere Screw Bone 320-15-05 - [id number] - [id number] Implanted:Qty: 1 on 05/04/2022 by Gavin Sewell MD at [facility] Left: Shoulder [employer]ech 03/09/2027 320-15-05 / [id number] / Exactech Reverse Torque Define Shoulder Kit Screw 320-20 - [id number] - [id number] Implanted:Qty: 1 on 05/04/2022 by Gavin Sewell MD at [facility] Left: Shoulder [employer]ech 02/03/2027 320-20 / [id number] / Ex[employer]ech Equinoxe Small Reverse Superior Posterior Augment Shoulder Left 320-35- - [id number] - [id number] Implanted:Qty: 1 on 05/04/2022 by Gavin Sewell MD at [facility] Left: Shoulder [employer] [id number] 04/08/2031 320-35- / [id number] / Exactech Equinoxe 10mm Stem Humeral Sterile 300-09-07 - [id number] - [id number] Implanted:Qty: 1 on 05/04/2022 by Gavin Sewell MD at [facility] Left: Shoulder [employer] [id number] 09/07/2031 300 / [id number] / [employer] Cement Bone Simplex Gentamicin High Viscosity 40gm 6195-1-001 - [id number] Implanted:Qty: 1 on 05/04/2022 by Gavin Sewell MD at [facility] Left: Shoulder [employer] 09/28/2023 6195-1-001 / / [id number] Exactech Equinoxe 40mm 24.3mm Small Reverse Shoulder Sphere Glenoid 320-31-40 - [id number] - [id number] Implanted:Qty: 1 on 05/04/2022 by Gavin Sewell MD at [facility] Left: Shoulder [employer] [id number] 12/11/2030 320-31-40 / [id number] / Ex[employer]ech Equinoxe 4.5mm 38mm Kit Compression Lock Cap Reverse Shoulder 320--38 - [id number] - [id number] Implanted:Qty: 1 on 05/04/2022 by Gavin Sewell MD at [facility] Left: Shoulder [employer]ech [id number] 01/12/2027 320-20-38 / [id number] / Exactech Equinoxe 4.5mm 34mm Kit Compression Lock Cap Reverse Shoulder 320-20-34 - [id number] - [id number] Implanted:Qty: 1 on 05/04/2022 by Gavin Sewell MD at [facility] Left: Shoulder [employer]ech [id number] 07/14/2026 320-20-34 / [id number] / [employer] Insert Tibial Knee Fixed Lm Posterior Stabilized Attune 7mm Size 5 Polyethylene [id number] - [id number] Implanted:Qty: 1 on 11/10/2022 by Gavin Sewell MD at [facility] Left: Knee [employer] 07/28/2030 [id number] / / [id number] [employer] Attune Cruciate Retain Cementless Knee Left 5 Component Femoral [id number] - [id number] Implanted:Qty: 1 on 11/10/2022 by Gavin Sewell MD at [facility] Left: Knee [employer] 04/28/2032 [id number] / / [id number] [employer] Attune Fb Tib Base Sz 5 Por [id number] - [id number] Implanted:Qty: 1 on 11/10/2022 by Gavin Sewell MD at [facility] Left: Knee [employer] 03/28/2032 [id number] / / [id number] Procedures Procedure Name Priority Date/Time Associated Diagnosis Comments POTASSIUM, URINE, RANDOM STAT 12/20/2024 1:55 AM CDT CHLORIDE, URINE, RANDOM STAT 12/20/2024 1:55 AM CDT OSMOLALITY, URINE STAT 12/20/2024 1:5 5 AM CDT SODIUM, URINE, RANDOM STAT 12/20/2024 1:55 AM CDT URINALYSIS AND REFLEX TO MICROSCOPIC AND CULTURE STAT 12/20/2024 1:55 AM CDT XR HAND RIGHT 3 OR MORE VIEWS ED 12/19/2024 10:05 PM CDT XR RADIUS ULNA RIGHT 2 VIEWS ED 12/19/2024 10:05 PM CDT OSMOLALITY, BLOOD STAT 12/19/2024 9:4 2 PM CDT TSH STAT 12/19/2024 9:42 PM [...] HEPATITIS C AB Routine 11/01/2014 8:32 AM ACCOUNTING MANAGER CONTROLLER DIGITAL MAMMOGRAPHY Routine 12/11/2013 1 1:01 AM [...] tendency for uric acid stone formation. Source: [facility] Current Interpretive Data was last revised on [...] MICROBIOLOGY - GENERAL OR DERABLES Final Result [facility] ([place]) 1 [facility] Department of Laboratories [place], [place] [id number] * Sodium, urine, random (12/20/2024 1:55 AM CDT) Sodium, ur 48 mmol/L Comment: Interpretive Data No reference range established. Current interpretive data was last revised 2019. Urine 12/20/2024 1:55 AM CDT 12/20/2024 5:56 AM CDT Narrative [facility] ([place]) - 12/20/2024 6:16 AM CDT No normal range Puma Mobley MD LAB URINE ORDERABLES Final Re sult Performing Organization Address [facility]/ZIP Co de Phone Number [facility] ([place]) 1 [facility] [place] [address] * Potassium, urine, random (12/20/2024 1:55 AM CDT) Potassium conc, ur 15.5 mmol/L Comment: Interpretive Data No reference range established. Current interpretive data was last revised 2019. Urine 12/20/2024 1:55 AM CDT 12/20/2024 5:56 AM CDT Puma Mobley MD LAB URINE ORDERABLES Final Re sult Performing Organization Address [facility] Co de Phone Number [facility] ([place]) 1 [facility] [place] [address] * Osmolality, urine (12/20/2024 1:55 AM CDT) Osmo, ur 269 mOsm/kg Comment:Testing performed by : [facility], 1 [facility]., [address] Urine 12/20/2024 1:55 AM CDT 12/20/2024 9:56 AM CDT Puma Mobley MD LAB URINE ORDERABLES Final Re sult Performing Organization Address [facility] Co de Phone Number [facility] ([place]) 1 [facility] [place] [address] * Chloride, urine, random (12/20/2024 1:55 AM CDT) Chloride, ur 46 mmol/L Comment: Interpretive Data No reference range established. Current interpretive data was last revised 2019. Urine 12/20/2024 1:55 AM CDT 12/20/2024 5:56 AM CDT Narrative [facility] ([place]) - 12/20/2024 6:16 AM CDT No normal range us Puma Mobley MD LAB URINE ORDERABLES Final Re sult [facility]) 1 [facility] Department [place] [address] * XR Hand Right 3 or More [...] Chepe Gibbons M.D. KH: SAHARA Report ID: [id number] [place] Location: [id number] Procedure Note Chepe Gibbons MD - 12/19/2024 [...] Chepe Gibbons M.D. KH: SAHARA Report ID: [id number] [place] Location: [id number] us Puma Mobley MD IMG XR PROCEDURES [...] signed by Chepe SHOEMAKER: SAHARA Report ID: [id number] [place] Location: [id number] Procedure Note Chepe Gibbons MD - 12/19/2024 [...] signed by Chepe SHOEMAKER: SAHARA Report ID: [id number] [place] Location: [place] [address] Puma Mobley MD IMG XR PROCEDURES Final Resul t * TSH (12/19/2024 9:42 PM CDT) Thyroid Stimulating Hormone 1.32 0.30 - 4.20 mcIUnit/mL Blood 12/19/2024 9:42 PM CDT 12/19/2024 11:07 PM CDT us Puma Mobley MD LAB BLOOD ORDERABLES Final Re sult Performing Organization Address City/[facility] Co de Phone Number [facility] ([place]) [address] [place] [address] [place] [address] * (ABNORMAL) Osmolality, blood (12/19/2024 9:42 PM CDT) Osmo 255(C) 275 - 300 mOsm/kg Comment:Testing performed by : [facility], 1 [facility], [place]., [address] Blood 12/19/2024 9:42 PM CDT 12/20/2024 9:56 AM CDT us Puma Mobley MD LAB BLOOD ORDERABLES Final Re sult Performing Organization Address [facility] Co de Phone Number [facility] ([place]) [address] [place] [address] [place] [address] * Magnesium (12/19/2024 9:42 PM CDT) Magnesium 1.7 1.4 - 2.5 mg/dL Blood 12/19/2024 9:42 PM CDT 12/19/2024 11:07 PM CDT Puma Mobley MD LAB BLOOD ORDERABLES Final Re sult Performing Organization Address City/[facility]/ZIP Co de Phone Number [facility] ([place]) 1 [facility] [place] [address] * Sepsis Lactate w/ Reflex (12/19/2024 4:03 PM CDT) Sepsis Lactate 2.0 0.7 - 2.0 mmol/L Blood 12/19/2024 4:03 PM CDT 12/19/2024 4:15 PM CDT Eleuterio Paul MD LAB BLOOD ORDERABLES Final Res ult [facility] ([place]) [address] [place] [address] * eGFR (12/19/2024 4:03 PM CDT) Pathologist [facility] eGFR >90 >=60 mL/min/1. 73 m2 Comment: [...] BLOOD ORDERABLES Final Res ult [facility] ([place]) 1 [facility] [place] [address] * (ABNORMAL) Differential, auto (12/19/2024 4:03 PM CDT) Neutrophil abs 5.73 1.50 - 6.50 K/cumm Imm gran abs 0.03 0.00 - 0.10 K/cumm [facility] ([place]) Lymphocyte abs 0.70(L) 0.80 - 3.30 K/cumm [facility] ([place]) Monocyte abs 0.45 0.20 - 0.80 K/cumm [facility] ([place]) Eosinophil abs 0.03 0.00 - 0.50 K/cumm [facility] ([place]) Basophil abs 0.03 0.00 - 0.10 K/cumm [facility] ([place]) Neutrophil pct 82.3 % [facility] ([place]) Comment: Interpretive Data Percent cell count reference ranges are not reported, since discordance with absolute values may lead to misinterpretation of CBC data. Current Interpretive Data was last revised on 2017. Imm gran pct 0.4 % [facility] ([place]) Comment: Interpretive Data Percent cell count reference ranges are not reported, since discordance with absolute values may lead to misinterpretation of CBC data. Current Interpretive Data was last revised on 2017. Lymphocyte pct 10.0 % [facility] ([place]) Comment: Interpretive Data Percent cell count reference ranges are not reported, since discordance with absolute values may lead to misinterpretation of CBC data. Current Interpretive Data was last revised on 2017. Monocyte pct 6.5 % [facility] ([place]) Comment: Interpretive Data Percent cell count reference ranges are not reported, since discordance with absolute values may lead to misinterpretation of CBC data. Current Interpretive Data was last revised on 2017. Eosinophil pct 0.4 % [facility] ([place]) Comment: Interpretive Data Percent cell count reference ranges are not reported, since discordance with absolute values may lead to misinterpretation of CBC data. Current Interpretive Data was last revised on 2017. Basophil pct 0.4 % [facility] ([place]) Comment: Interpretive Data Percent cell count reference ranges are not reported, since discordance with absolute values may lead to misinterpretation of CBC data. Current Interpretive Data was last revised on 2017. Blood 12/19/2024 4:03 PM CDT 12/19/2024 4:15 PM CDT Eleuterio Paul MD LAB BLOOD ORDERABLES Final Res ult [facility] ([place]) 1 [facility] [employer] [address] * (ABNORMAL) CBC with auto differential (12/19/2024 [...] 4:03 PM CDT 12/19/2024 4:15 PM CDT Eleuterio Paul MD LAB BLOOD ORDERABLES Final Res ult Performing Organization Address City/[facility]/ZIP Co de Phone Number [facility] ([place]) [address] [place] [address] * (ABNORMAL) Erythrocyte sedimentation rate (12/19/2024 4:03 PM CDT) [facility] Erythrocyte sedimentation rate 135(H) 1 - 30 mm/hr Blood 12/19/2024 4:03 PM CDT 12/19/2024 9:42 PM CDT Puma Mobley MD LAB BLOOD ORDERABLES Final Re sult [facility] ([place]) [address] [place] [address] * (ABNORMAL) CRP (acute phase) (12/19/2024 4:03 PM CDT) [facility] CRP 153.5(H) <=10.0 mg/L Blood 12/19/2024 4:03 PM CDT 12/19/2024 9:42 PM CDT Puma oMbley MD LAB BLOOD ORDERABLES Final Re sult [facility] ([place]) [address] [place] [address] * (ABNORMAL) Comprehensive metabolic panel (12/19/2024 4:03 PM CDT) [facility] Sodium 122(L) 135 - 145 mmol/L Comment:[facility] cha rge Potassium, pl 3.0(C) 3.3 - 4.9 mmol/L [facility] ([place]) Comment:Critical Result call ed by [email or web address] at 2024-12-19 16:41:44. Result Read Back by [facility] charge Chloride 81(L) 97 - 110 mmol/L [facility] ([place]) Comment:[facility] jarek rge CO2 27 22 - 32 mmol/L [facility] ([place]) Comment:[facility] jarek rge Anion gap 14 2 - 15 mmol/L [facility] Comment:[facility] jarek rge BUN 7 6 - 25 mg/dL [facility] ([place]) Comment:[facility] jarek rge Creatinine 0.65 0.60 - 1.10 mg/dL [facility] ([place]) Comment:[facility] Raza [facility] jarek rge Glucose 107 70 - 199 mg/dL [facility] ([place]) Comment: [facility] Ry [facility] charge Interpretive Data Fasting glucose >/= [...] 2022. Calcium 9.4 8.5 - 10.3 mg/dL [facility] Comment:[facility] jarek rge Bilirubin, total 0.6 0.1 - 1.2 mg/dL [facility] ([place] Comment:[facility] [facility] jarek rge Protein, pl 7.6 6.5 - 8.5 g/dL [facility] ([place]) Comment:[facility] [place] [facility] jarek rge Albumin 3.8 3.5 - 5.0 g/dL [facility] ([place]) Comment:[facility] jarek rge Alk phos 237(H) 40 - 130 Units/L [facility] ([place]) Comment:[facility] Becky'[facility] jarek rge ALT 33 7 - 45 Units/L [facility] ([place]) Comment:[facility] O'[facility] jarek rge AST 29 10 - 45 Units/L [facility] ([place]) Comment:[facility] jarek rge Blood 12/19/2024 4:03 PM CDT 12/19/2024 4:15 PM CDT us Eleuterio Paul MD LAB BLOOD ORDERABLES Final Res ult [facility] ([place]) 1 [facility] [place] [address] * Serum Hepatitis C ab (11/01/2014 8:32 AM ACCOUNTING MANAGER CONTROLLER) HCV ab Negative NEG HISTORICAL RESULTS Serum 11/01/2014 8:32 AM ACCOUNTING MANAGER CONTROLLER Narrative HISTORICAL RESULTS - 11/02/2014 3:46 AM ACCOUNTING MANAGER CONTROLLER Interpretive Data If confirmation is required, call Laboratory Customer Service to request sample to be sent to [facility] for Hepatitis C Virus (HCV) RNA Detection and Quantitation by Real-Time Reverse Trim Master Operator-PCR (RT-PCR). Current interpretive data was last revised on 2011 us Fariha Whitley MD LAB BLOOD ORDERABLES Final R esult Performing Organization Address City/[facility]/ZIP Co de Phone Number HISTORICAL RESULTS * DIGITAL MAMMOGRAPHY (12/11/2013 11:01 AM CDT) Anatomical Region Laterality Modality Breast Mammography 12/11/2013 11:0 1 AM CDT Narrative 12/12/2013 12:15 AM CDT Vm Mammogram Performed by: LT Screening Mamm Bi Acc#: [id number] DATE OF EXAM: Dec 11 2013 CLINICAL [...] Performed by: LT Screening Mamm Bi Acc#: [id number] DATE OF EXAM: Dec 11 2013 CLINICAL [...] Maintenance Insurance [place] [id number] [employer] PPO Advance Directives For more information, please contact: [phone] * Full Code (Latest Code Status on File) Date Activated Date Inactivated Comments 11/22/2023 6:25 PM 11/25/2023 11:09 PM * Full Code Date Activated Date Inactivated Comments 12/21/2022 5:34 PM 12/24/2022 8:16 PM * Full Code Date Activated Date Inactivated Comments 11/10/2022 4:25 PM 11/11/2022 3:51 PM * Full Code Date Activated Date Inactivated Comments 05/04/2022 1:38 PM 05/05/2022 6:47 PM Care Teams Flight Manager Relationship Specialty Start Date End Date Mariah Adams MD PCP - General Internal Medicine 08/19/20 Mitchell Zamarripa MD Referring Physician Rheumatology 03/11/22 Brit More NP Nurse Practitioner Cardiovascular Disease 03/11/22 Cliff Ronquillo NP [address] [place] [address] [place] [address] Nurse Practitioner Nurse Practitioner 05/05/22 Dick Aguilar PA [address] [facility] [address] [place] [address] Physician Director Of Promotions Orthopedic Surgery 11/11/22 Gavin Sewell MD [address] [place] [address] DR CARLOS Marc [address] [address] Surgeon Orthopedic Surgery 12/24/22
--- OUTSIDE RECORDS SUMMARY | 2024-12-20 11:59 | XMS_ITS | Clinical Summary ---
Author Organization [facility] Address [address] [place] [address] Phone Care Team Providers Care Farm Products Shipper Name Role Phone JAM MCDONNELL PA-C Primary Care Provider [phone] Reason for Visit and Chief Complaint LEXISCAN [...] Time Diagnosis LEXISCAN CARDIOLITE ELTON GROVER MD [facility] OP HRT 08/02/20 23 9:30AM 11:24AM Insurance Includes: Active Insurance Policies Plan Name Member ID Group # Subscriber Relationship Effect cyn Dates 1 - [employer]AGE [id number] NIGHAT DELANEY Self Clinical Notes Includes: Clinical Notes from this encounter No Clinical Notes Recorded
--- OUTSIDE RECORDS SUMMARY | 2024-12-20 11:59 | XMS_ITS | Clinical Summary ---
Author Organization [facility] Address [address] [place] [address] Care Team Providers Care Home Planning Consultant Salesperson Name Role Phone Mariah Adams MD Primary Care Provider + Mitchell Zamarripa MD Unavailable [phone] Brit More NP Unavailable [phone] Cliff Ronquillo NP Unavailable Dick Aguilar Unavailable [phone] Gavin Sewell MD Unavailable Allergies Active Allergy [...] 1 tablet (100 mcg total) by mouth missile and missile checkout technician before breakfast 1 Active celecoxib (CeleBREX) [...] 08/14/2024 Assessment & Plan (08/14/2024 9:48 AM BLUEPRINT CLERK): The patient likely has chronic cholecystitis [...] (04/23/2022): Added automatically from request for surgery [id number] Posterior tibial tendon dysfunction 03/02/2022 Flat foot [...] 01/04/2018 Assessment & Plan (09/19/2018 1:30 PM BLUEPRINT CLERK): Low disease activity today on exam. [...] CDT - 12/20/2024 7:45 AM CDT Emergency [facility] Emergency Department [address] [place] [address] Puma Mobley MD Surgical wound infection (Primary Dx); Hyponatremia; Hypokalemia Discharge Disposition: Discharge to not defined facility 12/12/2024 2:52 PM CDT - 12/12/2024 11:59 PM CDT Hospital Encounter [facility] [address] [place] [address] Pulmonary nodules Discharge Disposition: Discharge to home or self care 12/11/2024 Telephone [facility] [address] [place] [address] Zan Wagner from Last 3 Months Immunizations [...] How often do you attend chur or zoroastrianism services? Never 12/23/2022 Do you belong to any clubs o r organizations such as muslim groups, unions, fraternal or athletic groups, or [...] staff should administer the PHQ-9) 0 11/23/2023 [facility] [place] of Occupat ional Health - Occupational Stress [...] on file Legal Sex Female 11:50 PM BLUEPRINT CLERK Gender Identity Not on file Sexual [...] history exists Medical Devices Implanted Type Area Front End Java Developer Device Identifier Shelf Expiration Date Model / Serial / Lot Exactech Restrictor Cement Cemex Small Od13mm Tpa-13 - [id number] Implanted:Qty: 1 on 05/04/2022 by Gavin Sewell MD at [facility] Left: Shoulder Exactech 08/28/2023 TPA-13 / / [id number] Exactech Equinoxe Reverse Shoulder +0mm Tray Humeral Adapter 320-10-00 - [id number] - [id number] Implanted:Qty: 1 on 05/04/2022 by Gavin Sewell MD at [facility] Exactech [id number] 04/07/2032 320-10-00 / [id number] / Exactech Equinoxe 40mm Small Reverse Constrain Shoulder +2.5mm Liner 320-40-13 - [id number] - [id number] Implanted:Qty: 1 on 05/04/2022 by Gavin Sewell MD at [facility] Ex[employer]ech 01/31/2024 320-40-13 / [id number] / Exactech Equinoxe Lock Reverse Shoulder Glenosphere Screw Bone 320-15-05 - [id number] - [id number] Implanted:Qty: 1 on 05/04/2022 by Gavin Sewell MD at [facility] Left: Shoulder Exactech 03/09/2027 320-15- / [id number] / Exactech Reverse Torque Define Shoulder Kit Screw 32020-00 - [id number] - [id number] Implanted:Qty: 1 on 05/04/2022 by Gavin Sewell MD at [facility] Left: Shoulder Exactech 02/03/2027 320-20-00 / [id number] / Exactech Equinoxe Small Reverse Superior Posterior Augment Shoulder Left 320-35-07 - [id number] - [id number] Implanted:Qty: 1 on 05/04/2022 by Gavin Sewell MD at [facility] Left: Shoulder Exactech [id number] 04/08/2031 320-35-07 / [id number] / Exactech Equinoxe 10mm Stem Humeral Sterile 300-01-10 - [id number] - [id number] Implanted:Qty: 1 on 05/04/2022 by Gavin Sewell MD at [facility] Left: Shoulder Exactech [id number] 09/07/2031 300--10 / [id number] / [employer] Cement Bone Simplex Gentamicin High Viscosity 40gm 6195-1-001 - [id number] Implanted:Qty: 1 on 05/04/2022 by Gavin Sewell MD at [facility] Left: Shoulder [employer] 09/28/2023 6195-1-001 / / [id number] Exactech Equinoxe 40mm 24.3mm Small Reverse Shoulder Sphere Glenoid 320-31-40 - [id number] - [id number] Implanted:Qty: 1 on 05/04/2022 by Gavin Sewell MD at [facility] Left: Shoulder Exactech [id number] 12/11/2030 320-31-40 / [id number] / Exactech Equinoxe 4.5mm 38mm Kit Compression Lock Cap Reverse Shoulder 320-20-38 - [id number] - [id number] Implanted:Qty: 1 on 05/04/2022 by Gavin Sewell MD at [facility] Left: Shoulder Ex[employer]ech [id number] 01/12/2027 320-20-38 / [id number] / Exactech Equinoxe 4.5mm 34mm Kit Compression Lock Cap Reverse Shoulder 320-20-34 - [id number] - [id number] Implanted:Qty: 1 on 05/04/2022 by Gavin Sewell MD at [facility] Left: Shoulder Exactech [id number] 07/14/2026 320-20-34 / [id number] / [employer] Insert Tibial Knee Fixed Lm Posterior Stabilized Attune 7mm Size 5 Polyethylene [id number] - [id number] Implanted:Qty: 1 on 11/10/2022 by Gavin Sewell MD at [facility] Left: Knee [employer] 07/28/2030 [id number] / / [id number] [employer] Attune Cruciate Retain Cementless Knee Left 5 Component Femoral [id number] - [id number] Implanted:Qty: 1 on 11/10/2022 by Gavin Sewell MD at [facility] Left: Knee [employer] 04/28/2032 [id number] / / [id number] [employer] Attune Fb Tib Base Sz 5 Por [id number] - [id number] Implanted:Qty: 1 on 11/10/2022 by Gavin Sewell MD at [facility] Left: Knee [employer] Inc 03/28/2032 [id number] / / [id number] Procedures Procedure Name Priority Date/Time Associated Diagnosis [...] HEPATITIS C AB Routine 11/01/2014 8:32 AM BLUEPRINT CLERK DIGITAL MAMMOGRAPHY Routine 12/11/2013 1 1:01 AM [...] tendency for uric acid stone formation. Source: [facility] [place] Current Interpretive Data was last revised on [...] - GENERAL OR DERABLES Final Result [facility] ([place]) [facility] [place] [address] * Sodium, urine, random (12/20/2024 1:55 AM CDT) Sodium, ur 48 mmol/L Comment: Interpretive Data No reference range established. Current interpretive data was last revised 2019. Urine 12/20/2024 1:55 AM CDT 12/20/2024 5:56 AM CDT Narrative [facility] ([place]) - 12/20/2024 6:16 AM CDT No normal range Puma Mobley MD LAB URINE ORDERABLES Final Re sult [facility] ([place]) 1 [facility] [place] [address] * Potassium, urine, random (12/20/2024 1:55 AM CDT) Potassium conc, ur 15.5 mmol/L Comment: Interpretive Data No reference range established. Current interpretive data was last revised 2019. Urine 12/20/2024 1:55 AM CDT 12/20/2024 5:56 AM CDT uPma Mobley MD LAB URINE ORDERABLES Final Re sult Performing Organization Address [facility] Co de Phone Number [facility] ([place]) 1 [facility] [place] [address] * Osmolality, urine (12/20/2024 1:55 AM CDT) Osmo, ur 269 mOsm/kg Comment:Testing performed by : [facility], [address] [facility], [place]., [address] Urine 12/20/2024 1:55 AM CDT 12/20/2024 9:56 AM CDT Puma Mobley MD LAB URINE ORDERABLES Final Re sult Performing Organization Address City/[facility]/ZIP Co de Phone Number [facility] ([place]) 1 [facility] [place] [address] * Chloride, urine, random (12/20/2024 1:55 AM CDT) Chloride, ur 46 mmol/L Comment: Interpretive Data No reference range established. Current interpretive data was last revised 2019. Urine 12/20/2024 1:55 AM CDT 12/20/2024 5:56 AM CDT Narrative [facility] ([place]) - 12/20/2024 6:16 AM CDT No normal range us Puma Mobley MD LAB URINE ORDERABLES Final Re sult [facility] ([place]) 1 [facility] [place] [address] * XR Hand Right 3 or More [...] signed by Chepe SHOEMAKER: SAHARA Report ID: [id number] Reading Location: [id number] Procedure Note Chepe Gibbons MD - 12/19/2024 [...] signed by Chepe SHOEMAKER: SAHARA Report ID: [id number] Reading Location: [id number] us Puma Mobley MD IMG XR PROCEDURES [...] Chepe Gibbons M.D. KH: SAHARA Report ID: [id number] Reading Location: [id number] Procedure Note Chepe Gibbons MD - 12/19/2024 [...] Chepe Gibbons M.D. KH: SAHARA Report ID: [id number] Reading Location: [place] [address] Puma Mobley MD IMG XR PROCEDURES Final Resul t * TSH (12/19/2024 9:42 PM CDT) Thyroid Stimulating Hormone 1.32 0.30 - 4.20 mcIUnit/mL Blood 12/19/2024 9:42 PM CDT 12/19/2024 11:07 PM CDT Puma Mobley MD LAB BLOOD ORDERABLES Final Re sult [facility] ([place]) [address] [place] [address] [place] [address] * (ABNORMAL) Osmolality, blood (12/19/2024 9:42 PM CDT) Pathologist [facility] Osmo 255(C) 275 - 300 mOsm/kg Comment:Testing performed by : [facility], [address] [facility], [place]., [address] Blood 12/19/2024 9:42 PM CDT 12/20/2024 9:56 AM CDT Puma Mobley MD LAB BLOOD ORDERABLES Final Re sult [facility] ([place]) 1 [facility] [place] [address] * Magnesium (12/19/2024 9:42 PM CDT) Magnesium 1.7 1.4 - 2.5 mg/dL Blood 12/19/2024 9:42 PM CDT 12/19/2024 11:07 PM CDT us Puma Mobley MD LAB BLOOD ORDERABLES Final Re sult [facility] ([place]) 1 [facility] [place] [address] * Sepsis Lactate w/ Reflex (12/19/2024 4:03 PM CDT) Sepsis Lactate 2.0 0.7 - 2.0 mmol/L Blood 12/19/2024 4:03 PM CDT 12/19/2024 4:15 PM CDT us Eleuterio Paul MD LAB BLOOD ORDERABLES Final Res ult Performing Organization Address City/[facility]/ZIP Co de Phone Number [facility] ([place]) [address] [place] [address] * eGFR (12/19/2024 4:03 PM CDT) eGFR [...] BLOOD ORDERABLES Final Res ult [facility] ([place]) 1 [facility] [place] [address] * (ABNORMAL) Differential, auto (12/19/2024 4:03 PM CDT) Neutrophil abs 5.73 1.50 - 6.50 K/cumm Imm gran abs 0.03 0.00 - 0.10 K/cumm [facility] ([place]) Lymphocyte abs 0.70(L) 0.80 - 3.30 K/cumm [facility] ([place]) Monocyte abs 0.45 0.20 - 0.80 K/cumm [facility] ([place]) Eosinophil abs 0.03 0.00 - 0.50 K/cumm [facility] ([place]) Basophil abs 0.03 0.00 - 0.10 K/cumm [facility] ([place]) Neutrophil pct 82.3 % [facility] ([place]) Comment: Interpretive Data Percent cell count reference ranges are not reported, since discordance with absolute values may lead to misinterpretation of CBC data. Current Interpretive Data was last revised on 2017. Imm gran pct 0.4 % [facility] ([place]) Comment: Interpretive Data Percent cell count reference ranges are not reported, since discordance with absolute values may lead to misinterpretation of CBC data. Current Interpretive Data was last revised on 2017. Lymphocyte pct 10.0 % [facility] ([place]) Comment: Interpretive Data Percent cell count reference ranges are not reported, since discordance with absolute values may lead to misinterpretation of CBC data. Current Interpretive Data was last revised on 2017. Monocyte pct 6.5 % [facility] ([place]) Comment: Interpretive Data Percent cell count reference ranges are not reported, since discordance with absolute values may lead to misinterpretation of CBC data. Current Interpretive Data was last revised on 2017. Eosinophil pct 0.4 % [facility] ([place]) Comment: Interpretive Data Percent cell count reference [...] Final Res ult [facility] ([place]) 1 [facility] [place] [address] * (ABNORMAL) CBC with auto differential (12/19/2024 [...] ORDERABLES Final Res ult Performing Organization Address City/[facility]/ZIP Co de Phone Number [facility] ([place]) 1 [facility] [place] [address] * (ABNORMAL) Erythrocyte sedimentation rate (12/19/2024 4:03 PM CDT) Erythrocyte sedimentation rate 135(H) 1 - 30 mm/hr Blood 12/19/2024 4:03 PM CDT 12/19/2024 9:42 PM CDT us Puma Mobley MD LAB BLOOD ORDERABLES Final Re sult Performing Organization Address [facility] Co de Phone Number [facility] ([place]) 1 [facility] [place] [address] * (ABNORMAL) CRP (acute phase) (12/19/2024 4:03 PM CDT) CRP 153.5(H) <=10.0 mg/L Blood 12/19/2024 4:03 PM CDT 12/19/2024 9:42 PM CDT Puma Mobley MD LAB BLOOD ORDERABLES Final Re sult Performing Organization Address [facility]/ZIP Co de Phone Number [facility] ([place]) [address] [place] [address] [place] [address] * (ABNORMAL) Comprehensive metabolic panel (12/19/2024 4:03 PM CDT) Sodium 122(L) 135 - 145 mmol/L Comment:[facility] WEEKS cha rge Potassium, pl 3.0(C) 3.3 - 4.9 mmol/L [facility] ([place]) Comment:Critical Result call ed by [email or web address] at 2024-12-19 16:41:44. Result Read Back by Corwin Raza ER charge Chloride 81(L) 97 - 110 mmol/L [facility] ([place]) Comment:[facility] jarek rge CO2 27 22 - 32 mmol/L [facility] ([place]) Comment:[facility] jarek rge Anion gap 14 2 - 15 mmol/L [facility] ([place]) Comment:[facility] jarek rge BUN 7 6 - 25 mg/dL [facility] ([place]) Comment:[facility] jarek rge Creatinine 0.65 0.60 - 1.10 mg/dL [facility] ([place]) Comment:[facility] jarek rge Glucose 107 70 - 199 mg/dL [facility] ([place]) Comment: [facility] charge Interpretive Data Fasting glucose >/= [...] - 10.3 mg/dL [facility] ([place]) Comment:[facility] jarek rge Bilirubin, total 0.6 0.1 - 1.2 mg/dL [facility] ([place]) Comment:[facility] jarek rge Protein, pl 7.6 6.5 - 8.5 g/dL [facility] ([place]) Comment:[facility] jarek rge Albumin 3.8 3.5 - 5.0 g/dL [facility] ([place]) Comment:[facility] jarek rge Alk phos 237(H) 40 - 130 Units/L [facility] ([place]) Comment:[facility] jarek rge ALT 33 7 - 45 Units/L [facility] ([place]) Comment:[facility] jarek rge AST 29 10 - 45 Units/L [facility] ([place]) Comment:[facility] jarek rge Blood 12/19/2024 4:03 PM CDT 12/19/2024 4:15 PM CDT Eleuterio Paul MD LAB BLOOD ORDERABLES Final Res ult [facility] ([place]) 1 [facility] [place] [address] * Serum Hepatitis C ab (11/01/2014 8:32 AM BLUEPRINT CLERK) HCV ab Negative NEG HISTORICAL RESULTS Serum 11/01/2014 8:32 AM BLUEPRINT CLERK Narrative HISTORICAL RESULTS - 11/02/2014 3:46 AM BLUEPRINT CLERK Interpretive Data If confirmation is required, call Laboratory Customer Service to request sample to be sent to [facility] for Hepatitis C Virus (HCV) RNA Detection and Quantitation by Real-Time Reverse Home Health Travel Pt-PCR (RT-PCR). Current interpretive data was last revised on 2011 us Fariha Whitley MD LAB BLOOD ORDERABLES Final R esult HISTORICAL RESULTS * DIGITAL MAMMOGRAPHY (12/11/2013 11:01 AM CDT) Anatomical Region Laterality Modality Breast Mammography 12/11/2013 11:0 1 AM CDT Narrative 12/12/2013 12:15 AM CDT Vm Mammogram Performed by: LT Screening Mamm Bi Acc#: [id number] DATE OF EXAM: Dec 11 2013 CLINICAL [...] Performed by: LT Screening Mamm Bi Acc#: [id number] DATE OF EXAM: Dec 11 2013 CLINICAL [...] Read on: Dec 11 201311:01A Transcribed by: [email or web address] On: Dec 11 2013 2:27P Approved Electronically by: MARY CRUMP M.D. on: Dec 12 201312:15A Ordering DR: DR MARIAH ADAMS Attending DR: MARIAH ADAMS Historical Provider IMG MAMMO PROCEDURES Kristal l Result from Last 3 Months or Most Recently Relevant to Health Maintenance Insurance [facility] [employer] [place] [address] [place] [id number] Advance Directives For more information, please contact: [phone] * Full Code (Latest Code Status on File) Date Activated Date Inactivated Comments 11/22/2023 6:25 PM 11/25/2023 11:09 PM * Full Code Date Activated Date Inactivated Comments 12/21/2022 5:34 PM 12/24/2022 8:16 PM * Full Code Date Activated Date Inactivated Comments 11/10/2022 4:25 PM 11/11/2022 3:51 PM * Full Code Date Activated Date Inactivated Comments 05/04/2022 1:38 PM 05/05/2022 6:47 PM Care Teams Home Planning Consultant Salesperson Relationship Specialty Start Date End Date Mariah Adams MD PCP - General Internal Medicine 08/19/20 Mitchell Zamarripa MD Referring Physician Rheumatology 03/11/22 Brit More NP Nurse Practitioner Cardiovascular Disease 03/11/22 Cliff Ronquillo NP [address] [facility] [address] [place] [address] Nurse Practitioner Nurse Practitioner 05/05/22 Dick Aguilar PA [address] [facility] [address] [place] [address] Physician Analysis Manager Orthopedic Surgery 11/11/22 Gavin Sewell MD [address] [facility] [address] [place] [address] Surgeon Orthopedic Surgery 12/24/22
--- OUTSIDE RECORDS SUMMARY | 2024-12-20 11:59 | XMS_ITS | Clinical Summary ---
Author Organization [facility] Address [address] [place] [address] Phone Care Team Providers Care Airplane Gastank Liner Assembler Name Role Phone JAM MCDONNELL PA-C Primary Care Provider [phone] Reason for Visit and Chief Complaint [...] Check-Out Time Diagnosis ECHOCARDIOGRAM ELTON GROVER MD [facility] 08/02/20 23 8:35AM 9:29AM Insurance Includes: Active Insurance Policies Plan Name Member ID Group # Subscriber Relationship Effect cyn Dates 1 - [employer]AGE [id number] NIGHAT DELANEY Self Clinical Notes Includes: Clinical Notes from this encounter No Clinical Notes Recorded
--- OUTSIDE RECORDS SUMMARY | 2024-12-20 11:59 | XMS_ITS | Encounter Summary ---
Author Organization [facility] Address [address] [place] [address] Care Team Providers Care Sausage Wrapper Name Role Phone Yg Lee MD Primary Care Provider [phone] Shandra Ruffin APRN-[facility] Primary Care Provider Yg Lee MD Primary Care Provider [phone] Shandra Ruffin APRN-[facility] Primary Care Provider Yg Lee MD Primary Care Provider [phone] Shandra Ruffin APRN-[facility] Primary Care Provider Encounter Details Date Type Department Care Team (Late st Contact Info) Description 05/18/2019 Telephone [facility] [address] [place] [address] Mitchell Zamarripa MD [address] [place] [address] [place] [address] Social History Tobacco Use Types Packs/Day Years Used Date Smoking Tobacco: Every Day Cigarettes Alcohol Use Standard Drinks/Week Comments Yes 0 (1 standard drink = 0.6 oz pur e alcohol) occasional Comments No Sex and Gender Information Value Date Recorded Sex Assigned at Not on file Legal Sex Female 1:04 PM GANG WORKER Gender Identity Not on file Sexual Orientation Not on file documented as of this encounter Miscellaneous Notes * Telephone Encounter - Gil Feredmanen - 05/18/2019 2:33 PM CDT Current Provider name:Mitchell Zamarripa Reason for call: Pt called about BMP appt. She stated she has already been waiting seven months for an appointment and now she has to wait until November for her first appointment. She wants to know is there anyway she can be seen sooner. Please give her a call. [facility] Patient Call Back number: [phone]. documented in this encounter Plan of Treatment Not on file documented as of this encounter Visit Diagnoses Not on filedocumented in this encounter Care Teams Sausage Wrapper Relationship Specialty Start Date End Date Yg Lee MD [address] [place] [phone] PCP - General 10/28/11 05/23/19 Shandra Ruffin APRN-BOOKKEEPING MACHINE MECHANIC [address] [place], [place] [phone] PCP - General 05/24/19 07/20/20 Yg Lee MD [address] [place], [place] [phone] PCP - General Internal Medicine 07/21/20 07/21/20 Shandra Ruffin APRN-BOOKKEEPING MACHINE MECHANIC [address] [place] [phone] PCP - General 07/22/20 11/15/21 Yg Lee MD [address] [place] [phone] PCP - General Internal Medicine 11/16/21 04/01/22 Shandra Ruffin APRN-BOOKKEEPING MACHINE MECHANIC [address] [place] [address] [place] [phone] PCP - General 04/02/22 documented as of this encounter
--- OUTSIDE RECORDS SUMMARY | 2024-12-20 11:59 | XMS_ITS | Clinical Summary ---
Author Organization [facility] Address [address] [place] [address] Phone Care Team Providers Care Supervisor Cytology Name Role Phone Jose Cruz Ledezma Primary Care Provider [phone] Allergies Active Allergy Reactions Criticality Noted Date [...] age to complete this topic Insurance MEDICARE [employer] GENERIC Care Teams Supervisor Cytology Relationship Specialty Start Date End Date Jose Cruz Ledezma PAC [address] [place] [id number] PCP - General Physician Vendor Manager 01/28/20
--- OUTSIDE RECORDS SUMMARY | 2024-12-20 11:59 | XMS_ITS | Encounter Summary ---
Author Organization [facility] Address [address] [place] [address] Care Team Providers Care Neon Pumper Name Role Phone Jose Cruz Ledezma Primary Care Provider [phone] Yg Lee MD Primary Care Provider + Mitchell Zamarripa MD Unavailable [phone] Brit More PERSONAL LINES ACCOUNT EXECUTIVE Unavailable [phone] Cliff Ronquillo NP Unavailable [phone] Dick Aguilar Unavailable [phone] Gavin Sewell MD Unavailable [phone] Reason for Visit * Reason Onset Date Comments Scheduling Appointments 03/24/2020 Called f or DEXA appointment reminder Encounter Details Date Type Department Care Team (Late st Contact Info) Description 03/24/2020 Telephone [facility] [address] [place] [phone] Valencia Hernandez RT Scheduling Appointments (Called for DEXA appointment reminder) Social History Tobacco Use Types Packs/Day Years Used Date Smoking Tobacco: Former Smokeless Tobacco: Never Alcohol Use Standard Drinks/Week Comments Yes 0 (1 standard drink = 0.6 oz pur e alcohol) occasional Comments No Sex and Gender Information Value Date Recorded Sex Assigned at Not on file Legal Sex Female 11:50 PM POWER PLANT MECHANIC Gender Identity Not on file Sexual [...] COVID: Suspected 07/22/2024 07/22/2024 07/22/2024 9:25 AM POWER PLANT MECHANIC documented as of this encounter Care Teams Neon Pumper Relationship Specialty Start Date End Date Jose Cruz Ledezma PA [address] [place] [address] PCP - General 01/24/20 08/18/20 Yg Lee MD [address] [place] [address] PCP - General Internal Medicine 08/19/20 Mitchell Zamarripa MD [address] [place] [address] Referring Physician Rheumatology 03/11/22 Brit More NP [address] [place] [address] Nurse Practitioner Cardiovascular Disease 03/11/22 Cliff Ronqu[place] NP [address] [place] [address] [address] [place] [address] Nurse Practitioner Nurse Practitioner 05/05/22 Dick Aguilar PA [address] [place] [address] [address] [place] [address] Physician Joinery Patternmaker Orthopedic Surgery 11/11/22 Gavin Sewell MD [address] [facility] [address] [facility] [place] [address] [place] [address] Surgeon Orthopedic Surgery 12/24/22 documented as of this encounter
--- OUTSIDE RECORDS SUMMARY | 2024-12-20 11:59 | XMS_ITS | Encounter Summary ---
Author Organization [facility] Healthcare Address [address] [place] [address] Care Team Providers Care Anode Builder Name Role Phone Yg Lee MD Primary Care Provider + Mitchell Zamarripa MD Unavailable [phone] Brit More LAMP CLEANER Unavailable [phone] Cliff Ronquillo NP Unavailable [phone] Dick Aguilar Unavailable [phone] Gavin Sewell MD Unavailable [phone] Reason for Visit * Reason Comments Wound Check Encounter Details Date Type Department Care Team (Late st Contact Info) Description 12/19/2024 9:10 PM CDT - 12/20/2024 7:45 AM CDT Emergency [facility] Emergency Department [address] [place] [address] Puma Mobley MD [address] [place] [id number] Surgical wound infection (Primary Dx); Hyponatremia; Hypokalemia [...] place to sleep or slept in a usp (including now)? No 12/23/2022 Personal Safety Answer Date Recorded Have you ever been in or are you currently in a harmful physical or emotional relationship or is someone making you feel afraid or unsafe? 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 Psychiatric: Mood [...] who recommended having the [facility] with the Orthopedics consulted. We [...] contact Dr. Rendon orthopedic surgeon over at [facility] By: Puma Mobley MD Time: 12/19 2238 [...] recommended Keflex and then transferred over to [place] to be admitted under medicine for the [...] culture Blood Microbiology STAT 4:09 PM CDT documented as of this encounter Procedures Procedure Name Priority Date/Time Associated Diagnosis Comments URINALYSIS AND REFLEX TO MICROSCOPIC AND CULTURE STAT 12/20/2024 1:55 AM CDT SODIUM, URINE, RANDOM STAT 12/20/2024 1:55 AM CDT POTASSIUM, URINE, RANDOM STAT 12/20/2024 1:55 AM CDT OSMOLALITY, URINE STAT 12/20/2024 1:5 5 AM CDT CHLORIDE, URINE, RANDOM STAT 12/20/2024 1:55 AM CDT XR HAND RIGHT 3 OR MORE VIEWS ED 12/19/2024 10:05 PM CDT XR RADIUS ULNA RIGHT 2 VIEWS ED 12/19/2024 10:05 PM CDT TSH STAT 12/19/2024 9:42 PM CDT OSMOLALITY, BLOOD STAT 12/19/2024 9:4 2 PM CDT MAGNESIUM Routine 12/19/2024 9:42 PM [...] ORDERABLES Final Re sult Performing Organization Address City/Va Hospital/ZIP Co de Phone Number [facility] ([place]) [address] [facility] [place] [address] * Chloride, urine, random (12/20/2024 1:55 AM CDT) Chloride, ur 46 mmol/L Comment: Interpretive Data No reference range established. Current interpretive data was last revised 2019. Urine 12/20/2024 1:55 AM CDT 12/20/2024 5:56 AM CDT Narrative [facility] ([place]) - 12/20/2024 6:16 AM CDT No normal range Puma Mobley MD LAB URINE ORDERABLES Final Re sult Performing Organization Address [facility]/Va Hospital/[facility] Co de Phone Number [facility] ([place]) [address] [place] [address] * Osmolality, urine (12/20/2024 1:55 AM CDT) Osmo, ur 269 mOsm/kg Comment:Testing performed by : [facility], 1 [place] [address] Urine 12/20/2024 1:55 AM CDT 12/20/2024 9:56 AM CDT Puma Mobley MD LAB URINE ORDERABLES Final Re sult [facility] ([place] [address] [facility] [place] [address] * Sodium, urine, random (12/20/2024 1:55 AM CDT) Sodium, ur 48 mmol/L Comment: Interpretive Data No reference range established. Current interpretive data was last revised 2019. Urine 12/20/2024 1:55 AM CDT 12/20/2024 5:56 AM CDT Narrative [facility] ([place]) - 12/20/2024 6:16 AM CDT No normal range Puma Mobley MD LAB URINE ORDERABLES Final Re sult [facility] ([place]) [address] [facility] [place] [address] * (ABNORMAL) Urinalysis reflex to microscopic and [...] tendency for uric acid stone formation. Source: [facility] Current Interpretive Data was last revised on [...] - GENERAL OR DERABLES Final Result [facility] ([place]) [address] [facility] Department [place] [address] * XR Hand Right 3 or More [...] Chepe Gibbons M.D. KH: SAHARA Report ID: [id number] Reading Location: [id number] Procedure Note Chepe Gibbons MD - 12/19/2024 [...] Chepe Gibbons M.D. KH: SAHARA Report ID: [id number] Reading Location: [id number] us Puma Mobley MD IMG XR PROCEDURES [...] signed by Chepe SHOEMAKER: SAHARA Report ID: [id number] Reading Location: [id number] Procedure Note Chepe Gibbons MD - 12/19/2024 [...] signed by Chepe SHOEMAKER: SAHARA Report ID: [id number] Reading Location: [id number] us Puma Mobley MD IMG XR PROCEDURES Final Resul t * (ABNORMAL) Osmolality, blood (12/19/2024 9:42 PM CDT) Osmo 255(C) 275 - 300 mOsm/kg Comment:Testing performed by : [facility], 1 [facility], [place]., [address] Blood 12/19/2024 9:42 PM CDT 12/20/2024 9:56 AM CDT us Puma Mobley MD LAB BLOOD ORDERABLES Final Re sult [facility] ([place]) [address] [facility] [place] [address] * TSH (12/19/2024 9:42 PM CDT) Pathologist [facility] Thyroid Stimulating Hormone 1.32 0.30 - 4.20 mcIUnit/mL Blood 12/19/2024 9:42 PM CDT 12/19/2024 11:07 PM CDT us Puma Mobley MD LAB BLOOD ORDERABLES Final Re sult [facility] ([place]) [address] [place] [address] [facility] / [place] [address] * Magnesium (12/19/2024 9:42 PM CDT) Pathologist [facility] Magnesium 1.7 1.4 - 2.5 mg/dL Blood 12/19/2024 9:42 PM CDT 12/19/2024 11:07 PM CDT Puma Mobley MD LAB BLOOD ORDERABLES Final Re sult [facility] ([place]) [address] [facility] [place] [address] * (ABNORMAL) CRP (acute phase) (12/19/2024 4:03 PM CDT) CRP 153.5(H) <=10.0 mg/L Blood 12/19/2024 4:03 PM CDT 12/19/2024 9:42 PM CDT Puma Mobley MD LAB BLOOD ORDERABLES Final Re sult [facility] ([place]) [address] [facility] [place] [address] * (ABNORMAL) Erythrocyte sedimentation rate (12/19/2024 4:03 PM CDT) Pathologist [facility] Erythrocyte sedimentation rate 135(H) 1 - 30 mm/hr Blood 12/19/2024 4:03 PM CDT 12/19/2024 9:42 PM CDT Puma Mobley MD LAB BLOOD ORDERABLES Final Re sult Performing Organization Address City/Va Hospital/ZIP Co de Phone Number [facility] ([place]) [address] [facility] / [place] [address] * eGFR (12/19/2024 4:03 PM CDT) Pathologist [facility] eGFR >90 >=60 mL/min/1. 73 m2 [...] LAB BLOOD ORDERABLES Final Res ult [facility] ([place]) [address] [facility] Department [place] [address] * (ABNORMAL) Differential, auto (12/19/2024 4:03 PM CDT) Neutrophil abs 5.73 1.50 - 6.50 K/cumm Imm gran abs 0.03 0.00 - 0.10 K/cumm [facility] ([place]) Lymphocyte abs 0.70(L) 0.80 - 3.30 K/cumm [facility] ([place]) Monocyte abs 0.45 0.20 - 0.80 K/cumm [facility] ([place]) Eosinophil abs 0.03 0.00 - 0.50 K/cumm [facility] ([place]) Basophil abs 0.03 0.00 - 0.10 K/cumm [facility] ([place]) Neutrophil pct 82.3 % [facility] ([place]) Comment: Interpretive Data Percent cell count reference [...] revised on 2017. Eosinophil pct 0.4 % [facility] ([place]) Comment: Interpretive Data Percent cell count reference ranges are not reported, since discordance with absolute values may lead to misinterpretation of CBC data. Current Interpretive Data was last revised on 2017. Basophil pct 0.4 % [facility] ([place]) Comment: Interpretive Data Percent cell count reference ranges are not reported, since discordance with absolute values may lead to misinterpretation of CBC data. Current Interpretive Data was last revised on 2017. Blood 12/19/2024 4:03 PM CDT 12/19/2024 4:15 PM CDT Eleuterio Paul MD LAB BLOOD ORDERABLES Final Res ult [facility] ([place]) [address] [facility] [place] [address] * Sepsis Lactate w/ Reflex (12/19/2024 4:03 PM CDT) Sepsis Lactate 2.0 0.7 - 2.0 mmol/L Blood 12/19/2024 4:03 PM CDT 12/19/2024 4:15 PM CDT Eleuterio Paul MD LAB BLOOD ORDERABLES Final Res ult [facility] ([place]) [address] [facility] [place] [address] * (ABNORMAL) Comprehensive metabolic panel (12/19/2024 4:03 PM CDT) Sodium 122(L) 135 - 145 mmol/L Comment:Corwin WEEKS cha rge Potassium, pl 3.0(C) 3.3 - 4.9 mmol/L [facility] ([place]) Comment:Critical Result call ed by [email or web address] at 2024-12-19 16:41:44. Result Read Back by [...] 199 mg/dL [facility] ([place]) Comment: Corwin Pena'Ba ER charge Interpretive Data Fasting glucose >/= [...] - 1.2 mg/dL [facility] ([place]) Comment:Corwin O'Ab ER jarek rge Protein, pl 7.6 6.5 [...] Final Res ult [facility] ([place]) [address] [facility] [place] [address] * (ABNORMAL) CBC with auto differential (12/19/2024 [...] Final Res ult [facility] ([place]) [address] [facility] / [place] [address] documented in this encounter Visit Diagnoses Diagnosis [...] 500 mg 500 mg, oral, Once, On Ann 12/20/24 at 0031, For 1 dose, Indications: Skin/Soft Tissue InfectionIndications:Skin/Soft Tissue Infection Given 12/20/2024 12:38 AM CDT 500 mg morphine injection 4 mg 4 mg, intravenous, Administer over 4 Minutes, Once, On Ann 12/20/24 at 0244, For 1 dose Given 12/20/2024 2:48 AM CDT 4 mg ondansetron (ZOFRAN) injection 4 mg 4 mg, intravenous, Administer over 2 Minutes, Once, On Ann 12/20/24 at 0244, For 1 dose Given 12/20/2024 2:48 AM CDT 4 mg potassium chloride ER (KLOR-CON) extended release tablet 40 mEq 40 mEq, oral, Once, On Ann 12/20/24 at 0454, For 1 dose, Do not [...] mg (COMPLETED) 500 mg, oral, Once, On Ann 4/24/25 at 0031, For 1 dose, Indications: Skin/Soft [...] NP) documented in this encounter Care Teams Anode Builder Relationship Specialty Start Date End Date Yg Lee MD PCP - General Internal Medicine 08/19/20 Mitchell Zamarripa MD Referring Physician Rheumatology 03/11/22 Brit More NP Nurse Practitioner Cardiovascular Disease 03/11/22 Cliff Ronquillo NP [address] [place] [address] DR QU[address] [place] [id number] Nurse Practitioner Nurse Practitioner 05/05/22 Dick Aguilar PA [address] [facility] [address] [place] [address] Physician Arm Maker Orthopedic Surgery 11/11/22 Gavin Sewell MD [address] [facility] [address] CARLOS [address] [place] [address] Surgeon Orthopedic Surgery 12/24/22 documented as of this encounter
--- OUTSIDE RECORDS SUMMARY | 2024-12-20 11:59 | XMS_ITS | Clinical Summary ---
Author Organization [facility] Address [address] [place] [address] Phone Care Team Providers Care Half Section Ironer Name Role Phone JAM MCDONNELL PA-C Primary Care Provider [phone] Reason for Visit and Chief Complaint HEART [...] Diagnosis HEART CENTER FOLLOW UP TIFFANY HOWARD [facility]- 3 1:47PM 2:40PM Insurance Includes: Active Insurance Policies Plan Name Member ID Group # Subscriber Relationship Effect cyn Dates 1 - [employer]AGE [id number] NIGHAT DELANEY Self Clinical Notes Includes: Clinical Notes from this encounter No Clinical Notes Recorded
[2024-12-20 12:00] VITALS: PULSE 87
[2024-12-20 12:09] VITALS: BP 164/86; PULSE 88; RESP 18; TEMP 36.1; O2SAT 99
--- NOTE | 2024-12-20 12:25 | PM.IMHP ---
H&P: HPI History of Present Illness Date/Time: 12/20/24 12:25 Chief Complaint: Right wrist cellulitis Narrative: Patient is a 64-year-old woman with a past medical history of rheumatoid arthritis, osteopenia, fibromyalgia, persistent atrial fibrillation on Eliquis 5 mg p.o. b.i.d., digoxin, diltiazem presented from [facility] direct transfer to [facility] for orthopedic evaluation. As per patient she is independent and had a fall in early September, which resulted fracture on her right wrist. Patient was operated on 10/11/2024 the for her right wrist fracture which was comminuted, intra-articular distal radius and ulnar shaft fracture. Patient underwent open reduction internal fixation distal radius fracture, company new tired, more than 3 fragments, ulnar shaft fracture by Dr. Rendon. Unfortunately patient underwent another surgery on 11/23/2024 because of the broken hardware and the procedure performed was open reduction internal fixation distal radius and ulnar fracture, removal of the hardware from the right wrist, external fixator application right wrist which was also performed by Dr. Rendon. Patient reports after the she felt the pain has been infected and call the orthopedic office and she was given antibiotics unfortunately she was allergic to sulfa and ciprofloxacin. On 12/19 patient went to [facility] ED and was transferred to [facility]. In addition memory ED patient had evidence of hyponatremia, hypokalemia and patient reports she was given 1 dose of ceftriaxone?. Labs were performed today. WBC 6, hemoglobin 10.5, hematocrit 33, platelet 335, sodium 128, potassium 3.7, chloride 89, bicarbonate 32, anion gap 7, creatinine 0.6. Patient is admitted in the setting of right arm cellulitis. Ordered blood culture. Patient is started on Zosyn and vancomycin from Orthopedic team. Currently holding Eliquis due to possible surgical intervention if needed. Holding losartan hydrochlorothiazide combination due to hyponatremia and patient started on gentle fluid resuscitation. Sodium will be monitored q.4 hours. Review of Systems Review of Systems: All systems reviewed & are unremarkable except as noted in HPI and below Constitutional: Constitutional: Reports no additional constitutional complaints ENT: Reports system reviewed and no additional complaints, except as documented Cardiovascular: Cardiovascular: Reports no additional cardiovascular complaints, Denies chest pain and Reports dyspnea Respiratory: Respiratory: Reports as per HPI, Denies chest congestion, Reports cough and Reports dyspnea Musculoskeletal: Musculoskeletal: Reports no additional musculoskeletal complaints Integumentary/Breasts: Skin/Breast: Reports system reviewed and no additional complaints, except as docu Neurologic: Denies confusion Psychiatric: Psychiatric: Denies confusion [facility] Past Medical History Medical History 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 SHIRA (obstructive sleep apnea) Rheumatoid arthritis HTN (hypertension) Surgical History Surgical History History of bladder surgery H/O: hysterectomy Social History Social History Smoking packs per day: 0.5 Smoking cigarettes per day: 10.0 Years smoked: 15 Smoking pack-years: 7.50 Smoking status: Former smoker Tobacco type: cigarettes Smoking end date: 11/21/14 Alcohol intake: never Substance use: never Do You Feel Safe in your Home?: Yes Lack of Transportation: No Lack of Food: Never True Current Housing: I Have Housing Concerned About Future Housing: No Difficulty Paying Gas/Electric Bills: No Difficulty Paying for Meds: No Currently Unemployed: No Education: High School Diploma/GED Difficulty w/ Childcare or Family Care: No Living arrangements: alone Spiritual care concerns: No Meds Home Medications and Allergies Home Medications ?Medication ?Instructions ?Recorded ?Confirmed ?Type alprazolam 0.25 mg tablet 0.25 mg PO QID PRN anxiety 10/04/24 12/20/24 History apixaban 5 mg tablet (Eliquis) 5 mg PO DAILY 10/04/24 12/20/24 History carvedilol 25 mg tablet 25 mg PO Q12H 10/04/24 12/20/24 History celecoxib 200 mg capsule 200 mg PO BID 10/04/24 12/20/24 History digoxin 125 mcg (0.125 mg) tablet 0.125 mg PO DAILY 10/04/24 12/20/24 History diltiazem HCl 240 mg 240 mg PO DAILY 10/04/24 12/20/24 History capsule,extended release 24 hr, controlled (DILT-XR) duloxetine 60 mg capsule,delayed 60 mg PO DAILY 10/04/24 12/20/24 History release ezetimibe 10 mg tablet 10 mg PO DAILY 10/04/24 12/20/24 History isosorbide mononitrate 60 mg 60 mg PO DAILY 10/04/24 12/20/24 History tablet,extended release 24 hr levothyroxine 100 mcg tablet 100 mcg PO DAILY 10/04/24 12/20/24 History losartan 100 1 tablet PO DAILY 10/04/24 12/20/24 History mg-hydrochlorothiazide 25 mg tablet metoclopramide HCl 10 mg tablet 10 mg PO BID PRN nausea and 10/04/24 12/20/24 History vomiting omeprazole 40 mg capsule,delayed 40 mg PO DAILY 10/04/24 12/20/24 History release rosuvastatin 5 mg tablet 5 mg PO DAILY 10/04/24 12/20/24 History ibuprofen 600 mg tablet 600 mg PO TID PRN fever or pain 11/05/24 12/20/24 Rx #30 tabs albuterol sulfate 90 mcg/actuation 2 puff inhalation QID PRN 11/08/24 12/20/24 Rx aerosol inhaler shortness of breath or wheezing #6.7 grams furosemide 20 mg tablet 20 mg PO DAILY 11/08/24 12/20/24 History inhalational spacing device #1 ea 11/08/24 12/20/24 Rx (Aerochamber MV spacer) oxycodone-acetaminophen 7.5 mg-325 1 tablet PO .q6 h PRN pain #30 tabs 12/03/24 12/20/24 Rx mg tablet Allergies Allergy/AdvReac Type Severity Reaction Status Date / Time Sulfa (Sulfonamide Allergy Severe Hives Verified 12/03/24 08:22 Antibiotics) ciprofloxacin (From Cipro) Allergy Intermediate Other Verified 12/03/24 08:22 Vital Signs Vital Signs - 24 hr 12/20/24 09:57 12/20/24 12:09 Temperature 96.9 F L Pulse Rate 88 Respiratory Rate 18 Blood Pressure 164/86 H Pulse Oximetry 99 Oxygen Delivery Room Air Exam Const: General: healthy appearing; No in distress or confusion Orientation/consciousness: oriented to person, oriented to place, oriented to time and No confusion HENMT: Head: normal to inspection, normocephalic and atraumatic Eyes: Conjunctivae: conjunctivae normal Sclera: sclerae normal Neck: Neck: supple and nontender Resp: Effort & Inspection: normal respiratory effort and no audible wheezes Cardio: Rate: regular rate Rhythm: regular rhythm Skin: General skin exam: no rashes or lesions noted Neuro: General: oriented to person, oriented to place, oriented to time and No confusion Extrem: Right upper extremity: normal to inspection, shoulder/upper arm no tenderness and no swelling, elbow/forearm tenderness of the mid-shaft forearm, swelling of the mid-shaft forearm ( Volar aspect, moderate) anteriorly and normal ROM, wrist tenderness of the distal radius and of the dorsal wrist, swelling (moderate) of the dorsal wrist and abnormal ROM pain with active ROM during with extension and with flexion and pain with passive ROM during with extension and with flexion (Ext 30, Flex 30, Pro 40, Sup 35) and Extremity exam: right hand neuromotor exam normal, neuromotor exam abnormal wrist extension abnormal limited by pain, neurosensory exam normal radial nerve sensory function normal, ulnar nerve sensory function normal, median nerve sensory function normal and digital nerve sensory function normal, tendon exam normal of all digits and vascular exam radial pulse present and normal capillary refill Left upper extremity: normal to inspection, shoulder/upper arm no tenderness and no swelling, elbow/forearm no tenderness and no swelling, wrist normal ROM and radial pulse present 2+; no tenderness and no swelling and hand normal capillary refill, neuromotor exam normal, neurosensory exam normal Details: radial nerve sensory function normal, ulnar nerve sensory function normal, median nerve sensory function normal and digital nerve sensory function normal, vascular exam normal capillary refill and normal ROM of fingers Other: external fixator pin sites clean and dry. No erythema or drainage. Moderate swelling forearm. Neurovascular intact. Able to move all fingers and thumb. 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: Qualifiers: Pathology associated with fracture: other disease Qualified Code(s): M84.633K - Pathological fracture in other disease, right radius, subsequent encounter for fracture with nonunion Code(s): M84.433K - Pathological fracture, right radius, subsequent encounter for fracture with nonunion Status: Acute (3) Closed fracture distal radius and ulna: Qualifiers: Encounter type: subsequent encounter Fracture healing: with nonunion Laterality: right Qualified Code(s): S52.501K - Unspecified fracture of the lower end of right radius, subsequent encounter for closed fracture with nonunion; S52.601K - Unspecified fracture of lower end of right ulna, subsequent encounter for closed fracture with nonunion Code(s): S52.509A - Unspecified fracture of the lower end of unspecified radius, initial encounter for closed fracture; S52.609A - Unspecified fracture of lower end of unspecified ulna, initial encounter for closed fracture Status: Acute (4) Cellulitis of right wrist: Code(s): L03.113 - Cellulitis of right upper limb Status: Acute (5) Hyponatremia: Code(s): E87.1 - Hypo-osmolality and hyponatremia Status: Acute Plan Right arm cellulitis -Fall in early September, which resulted fracture on her right wrist. -10/11/2024 the for her right wrist fracture which was comminuted, intra-articular distal radius and ulnar shaft fracture. Patient underwent open reduction internal fixation distal radius fracture, company new tired, more than 3 fragments, ulnar shaft fracture by Dr. Rendon. -Unfortunately patient underwent another surgery on 11/23/2024 because of the broken hardware and the procedure performed was open reduction internal fixation distal radius and ulnar fracture, removal of the hardware from the right wrist, external fixator application right wrist which was also performed by Dr. Rendon. -Patient reports after the she felt the pain has been infected and called the orthopedic office and she was given antibiotics unfortunately she was allergic to sulfa and ciprofloxacin. On 12/19 patient went to [facility] ED and was transferred to [facility]. - 12/19 went to [facility] ED due to right wrist pain and warmth and had evidence of hyponatremia, hypokalemia -12/20 wrist x-ray Fractures of the radius and ulna with external and internal fixation. -ordered nasal MRSA -on Zosyn and vancomycin HypoNa -Asymptomatic HypoNa -TSH normal -if necessary Cortisol will be measured -Possible due to SIADH and dehydration -Euvolemia -Goal 6-8 meq/l in 24 hr period -Urine Na pending -urine osmolarity pending -trial of fluids -hold losartan -hydrochlorothiazide Atrial fibrillation Hold Eliquis due to possible surgical intervention Continue diltiazem 240 mg p.o. q.d. Continue digoxin 0.125 mg p.o. q.d. Hospitalist [facility] Advance Care Plan I have confirmed that the patient's Advanced Care Plan is present, code status is documented, or surrogate decision maker is listed in patient medical record.: Yes Medication Reconciliation I have utilized all available resources to obtain, update and review the patients current medications (includes all prescriptions, OTC, herbals, cannabis, and nutritional supplements).: Yes
[2024-12-20] MEDS: MORPHINE SULFATE (*CRX) 2 MG/ML INJ IV PUSH ×2 (12:30→23:28)
[2024-12-20 13:55] VITALS: BP 154/81; PULSE 100; RESP 20; TEMP 36; O2SAT 97
--- NOTE | 2024-12-20 14:14 | PM.CNOR ---
Assessment and Plan Assessment and plan (1) Closed fracture distal radius and ulna: Qualifiers: Encounter type: subsequent encounter Fracture healing: with nonunion Laterality: right Qualified Code(s): S52.501K - Unspecified fracture of the lower end of right radius, subsequent encounter for closed fracture with nonunion; S52.601K - Unspecified fracture of lower end of right ulna, subsequent encounter for closed fracture with nonunion Code(s): S52.509A - Unspecified fracture of the lower end of unspecified radius, initial encounter for closed fracture; S52.609A - Unspecified fracture of lower end of unspecified ulna, initial encounter for closed fracture Status: Acute Assessment and Plan: 4 weeks status post external fixator placement right Forearm. Mild complications a week ago with drainage from 1 of the pin sites. Improved with pin site care. Now with increased forearm swelling and pain. Pin sites appear benign. Recommend ice and elevation for the forearm. Pin site care with alcohol swabs. Needs new radiographs of the forearm to evaluate pin sites and fracture. Start empiric IV antibiotics and await blood culture results. New labs are ordered. Will review radiographs. May need removal of external fixator. 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: Qualifiers: Pathology associated with fracture: other disease Qualified Code(s): M84.633K - Pathological fracture in other disease, right radius, subsequent encounter for fracture with nonunion Code(s): M84.433K - Pathological fracture, right radius, subsequent encounter for fracture with nonunion Status: Acute History of Present Illness HPI Consult date: 12/20/24 Requesting physician: Lucina Barnhart MD Chief complaint: Right wrist post op complications Narrative: 64-year-old woman 4 weeks status post removal of hardware and placement of external fixator for right both-bone forearm fractures. Notified office last week drainage from pin site. Pin site care with alcohol swab and oral antibiotics started. Patient 2 days of oral antibiotics and developed allergic response and stopped. However noted improvement in the drainage and appearance. 2 days ago noticed increased swelling and pain in the right forearm. Presented to outside emergency room and subsequently transferred to this facility. Notes fever and chills but no documented fever. No other systemic complaints. Review of Systems Review of Systems: All systems reviewed & are unremarkable except as noted in HPI and below Constitutional: Constitutional: Reports no additional constitutional complaints ENT: Reports system reviewed and no additional complaints, except as documented Cardiovascular: Cardiovascular: Reports no additional cardiovascular complaints, Denies chest pain and Denies dyspnea Respiratory: Respiratory: Reports as per HPI, Denies chest congestion, Reports cough and Reports dyspnea Musculoskeletal: Musculoskeletal: Reports no additional musculoskeletal complaints Integumentary/Breasts: Skin/Breast: Reports system reviewed and no additional complaints, except as docu PMFSH Past Medical History Medical History 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 SHIRA (obstructive sleep apnea) Rheumatoid arthritis HTN (hypertension) Surgical History Surgical History History of bladder surgery H/O: hysterectomy Social History Social History Smoking packs per day: 0.5 Smoking cigarettes per day: 10.0 Years smoked: 15 Smoking pack-years: 7.50 Smoking status: Former smoker Tobacco type: cigarettes Smoking end date: 11/21/14 Alcohol intake: never Substance use: never Do You Feel Safe in your Home?: Yes Lack of Transportation: No Lack of Food: Never True Current Housing: I Have Housing Concerned About Future Housing: No Difficulty Paying Gas/Electric Bills: No Difficulty Paying for Meds: No Currently Unemployed: No Education: High School Diploma/GED Difficulty w/ Childcare or Family Care: No Living arrangements: alone Spiritual care concerns: No Meds Home Medications and Allergies Home Medications ?Medication ?Instructions ?Recorded ?Confirmed ?Type alprazolam 0.25 mg tablet 0.25 mg PO QID PRN anxiety 10/04/24 12/20/24 History apixaban 5 mg tablet (Eliquis) 5 mg PO DAILY 10/04/24 12/20/24 History carvedilol 25 mg tablet 25 mg PO Q12H 10/04/24 12/20/24 History celecoxib 200 mg capsule 200 mg PO BID 10/04/24 12/20/24 History digoxin 125 mcg (0.125 mg) tablet 0.125 mg PO DAILY 10/04/24 12/20/24 History diltiazem HCl 240 mg 240 mg PO DAILY 10/04/24 12/20/24 History capsule,extended release 24 hr, controlled (DILT-XR) duloxetine 60 mg capsule,delayed 60 mg PO DAILY 10/04/24 12/20/24 History release ezetimibe 10 mg tablet 10 mg PO DAILY 10/04/24 12/20/24 History isosorbide mononitrate 60 mg 60 mg PO DAILY 10/04/24 12/20/24 History tablet,extended release 24 hr levothyroxine 100 mcg tablet 100 mcg PO DAILY 10/04/24 12/20/24 History losartan 100 1 tablet PO DAILY 10/04/24 12/20/24 History mg-hydrochlorothiazide 25 mg tablet metoclopramide HCl 10 mg tablet 10 mg PO BID PRN nausea and 10/04/24 12/20/24 History vomiting omeprazole 40 mg capsule,delayed 40 mg PO DAILY 10/04/24 12/20/24 History release rosuvastatin 5 mg tablet 5 mg PO DAILY 10/04/24 12/20/24 History ibuprofen 600 mg tablet 600 mg PO TID PRN fever or pain 11/05/24 12/20/24 Rx #30 tabs albuterol sulfate 90 mcg/actuation 2 puff inhalation QID PRN 11/08/24 12/20/24 Rx aerosol inhaler shortness of breath or wheezing #6.7 grams furosemide 20 mg tablet 20 mg PO DAILY 11/08/24 12/20/24 History inhalational spacing device #1 ea 11/08/24 12/20/24 Rx (Aerochamber MV spacer) oxycodone-acetaminophen 7.5 mg-325 1 tablet PO .q6 h PRN pain #30 tabs 12/03/24 12/20/24 Rx mg tablet Allergies Allergy/AdvReac Type Severity Reaction Status Date / Time Sulfa (Sulfonamide Allergy Severe Hives Verified 12/03/24 08:22 Antibiotics) ciprofloxacin (From Cipro) Allergy Intermediate Other Verified 12/03/24 08:22 Vital Signs Vital Signs - 24 hr 12/20/24 09:57 12/20/24 12:00 12/20/24 12:09 Temperature 96.9 F L Pulse Rate 87 88 Respiratory Rate 18 Blood Pressure 164/86 H Pulse Oximetry 99 Oxygen Delivery Room Air 12/20/24 13:55 Temperature 96.8 F L Pulse Rate 100 Respiratory Rate 20 Blood Pressure 154/81 H Pulse Oximetry 97 Oxygen Delivery Exam Const: General: healthy appearing; No in distress or confusion Orientation/consciousness: oriented to person, oriented to place, oriented to time and No confusion HENMT: Head: normal to inspection, normocephalic and atraumatic Eyes: Conjunctivae: conjunctivae normal Sclera: sclerae normal Neck: Neck: supple and nontender Resp: Effort & Inspection: normal respiratory effort and no audible wheezes Cardio: Rate: regular rate Rhythm: regular rhythm Skin: General skin exam: no rashes or lesions noted Neuro: General: oriented to person, oriented to place, oriented to time and No confusion Extrem: Right upper extremity: normal to inspection, shoulder/upper arm no tenderness and no swelling, elbow/forearm tenderness of the mid-shaft forearm, swelling of the mid-shaft forearm ( Volar aspect, moderate) anteriorly and normal ROM, wrist tenderness of the distal radius and of the dorsal wrist, swelling (moderate) of the dorsal wrist and abnormal ROM pain with active ROM during with extension and with flexion and pain with passive ROM during with extension and with flexion (Ext 30, Flex 30, Pro 40, Sup 35) and Extremity exam: right hand neuromotor exam normal, neuromotor exam abnormal wrist extension abnormal limited by pain, neurosensory exam normal radial nerve sensory function normal, ulnar nerve sensory function normal, median nerve sensory function normal and digital nerve sensory function normal, tendon exam normal of all digits and vascular exam radial pulse present and normal capillary refill Left upper extremity: normal to inspection, shoulder/upper arm no tenderness and no swelling, elbow/forearm no tenderness and no swelling, wrist normal ROM and radial pulse present 2+; no tenderness and no swelling and hand normal capillary refill, neuromotor exam normal, neurosensory exam normal Details: radial nerve sensory function normal, ulnar nerve sensory function normal, median nerve sensory function normal and digital nerve sensory function normal, vascular exam normal capillary refill and normal ROM of fingers Other: external fixator pin sites clean and dry. No erythema or drainage. Moderate swelling forearm. Neurovascular intact. Able to move all fingers and thumb. Psych: Affect: normal affect Results Labs Labs: All other labs normal.
[2024-12-20 14:53] LABS: Basophils Percent Auto 0.3 % (0.2-1.2); Eosinophils Percent Auto 0.5 % (0-4.4); Hemoglobin 10.5 g/dL (12.0-15.0); Immature Granulocyte Absolute 0.03 K/mm3 (0.00-0.031); Immature Granulocyte Percent A 0.5 % (0-0.5); Lymphocytes Absolute Auto 0.68 K/mm3 (0.9-3.2); Lymphocytes Percent Auto 11.4 % (18.3-44.2); Mean Corpuscular HGB Conc 31.8 g/dl (32-36); Mean Corpuscular Hemoglobin 25.7 pg (26-34); Mean Corpuscular Volume 80.9 fl (80-100); Mean Platelet Volume 8.9 fl (7.4-10.4); Monocytes Absolute Auto 0.4 K/mm3 (0.1-0.6); Monocytes Percent Auto 6.7 % (2.6-8.5); Neutrophils Absolute Auto 4.8 K/mm3 (1.3-6.7); Neutrophils Percent Auto 80.6 % (45.5-73.1); Platelet Count Result 335 k/mm3 (150-375); Red Blood Count 4.08 M/mm3 (4.2-5.4); Red Cell Distribution Width 16.6 % (11.5-14.5)
[2024-12-20 15:05] LABS: Alanine Aminotransferase 35 U/L (6-35); Albumin Level 3.9 g/dL (3.5-5.1); Alkaline Phosphatase 242 U/L (38-126); Anion Gap 7 mmol/L (4-12); Aspartate Amino Transferase 35 U/L (14-36); Bilirubin,Total 0.5 mg/dL (0.2-1.3); Blood Urea Nitrogen 6 mg/dL (7-17); Calcium 9.2 mg/dL (8.4-10.2); Carbon Dioxide 32 mmol/L (22-30); Chloride 89 mmol/L (98-107); Estimated CRCL calculation 67 ml/min; Estimated Glomerular Filt Rate > 60; Glucose 112 mg/dL (65-110); Potassium 3.7 mmol/L (3.4-5.0); Sodium 128 mmol/L (137-145)
[2024-12-20] MEDS: PIPERACILLN/TAZ 3.375GM/NS50ML 3.375 GM/50 ML BAG IVPB ×2 (15:34→20:14)
[2024-12-20 16:00] VITALS: PULSE 93
[2024-12-20] MEDS: VANCOMYCIN 1,750 MG/NS 500 ML 1,750 MG/500 ML BAG 250 MG IVPB (16:17)
[2024-12-20] MEDS: ALPRAZolam (*CRX) 0.25 MG TABLET PO (17:50)
[2024-12-20 18:10] LABS: Add Urine Microscopic? YES; Appearance Urine Clear (Clear); Bacteria Urine None Seen /hpf; Bilirubin Urine 1+ (Negative); Blood Urine Negative (Negative); Color Urine Dark Yellow (Yellow); Glucose Urine UA Negative (Negative); Ketones Urine Trace mg/dL (Negative); Leukocyte Esterase Ur Trace LEU/UL (Negative); Nitrate Urine Negative (Negative); Non Pathogenic Casts 0-2; Protein Urine 2+ mg/dL (Negative); RBC Urine 0-2 /hpf (0-2); Specific Grav Ur 1.025 (1.001-1.035); Squamous Epithelial Cell Urine Moderate /hpf (Few); WBC Urine 0-5 /hpf (0-3); pH Urine 6.5 (5.0-9.0)
[2024-12-20 18:19] LABS: Creatinine Urine 260.1 mg/dL
[2024-12-20 18:20] LABS: Sodium Urine Random 29 meq/L
[2024-12-20] MEDS: oxyCODONE/ACETAMINOPHEN (*CRX) 5-325 MG TABLET 1 TABLET PO (18:49)
[2024-12-20 19:22] LABS: MRSA (PCR) NOT DETECTED (NOT DETECTE)
[2024-12-20] MEDS: SODIUM CHLORIDE 0.9% IV 1,000 ML 70 ML IV CONT (19:52)
[2024-12-20 20:00] VITALS: PULSE 86
[2024-12-20] MEDS: carvediloL 25 MG TABLET PO (20:14)
[2024-12-20 20:49] VITALS: BP 157/84; PULSE 86; RESP 20; TEMP 36.5; O2SAT 95
[2024-12-20 21:46] LABS: Sodium 127 mmol/L (137-145)
[2024-12-21] VITALS (13 sets, daily range): BP systolic 148–184; BP diastolic 82–95; PULSE 75–94; RESP 17–20; TEMP 36.6–36.9; O2SAT 94–100
[2024-12-21] MEDS: PIPERACILLN/TAZ 3.375GM/NS50ML 3.375 GM/50 ML BAG IVPB ×4 (03:17→20:06)
[2024-12-21] MEDS: oxyCODONE/ACETAMINOPHEN (*CRX) 5-325 MG TABLET 1 TABLET PO ×2 (03:18→14:23)
[2024-12-21 05:14] LABS: Hematocrit 29.9 % (37.0-47.0); Hemoglobin 9.4 g/dL (12.0-15.0); Mean Corpuscular HGB Conc 31.4 g/dl (32-36); Mean Corpuscular Volume 82.8 fl (80-100); Mean Platelet Volume 8.8 fl (7.4-10.4); Platelet Count Result 292 k/mm3 (150-375); Red Blood Count 3.61 M/mm3 (4.2-5.4); Red Cell Distribution Width 16.5 % (11.5-14.5); White Blood Count 5.1 K/mm3 (4.5-10.0)
[2024-12-21 05:25] LABS: Alanine Aminotransferase 28 U/L (6-35); Albumin Level 3.4 g/dL (3.5-5.1); Alkaline Phosphatase 186 U/L (38-126); Anion Gap 7 mmol/L (4-12); Aspartate Amino Transferase 32 U/L (14-36); Bilirubin,Total 0.4 mg/dL (0.2-1.3); Blood Urea Nitrogen 5 mg/dL (7-17); Calcium 8.9 mg/dL (8.4-10.2); Carbon Dioxide 28 mmol/L (22-30); Chloride 96 mmol/L (98-107); Estimated CRCL calculation 59 ml/min; Estimated Glomerular Filt Rate > 60; Glucose 99 mg/dL (65-110); Potassium 3.2 mmol/L (3.4-5.0); Sodium 131 mmol/L (137-145)
[2024-12-21] MEDS: LEVOTHYROXINE SODIUM 100 MCG TABLET PO (05:42)
--- NOTE | 2024-12-21 07:34 | P.PNIM_ITS ---
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: Qualifiers: Pathology associated with fracture: other disease Qualified Code(s): M84.633K - Pathological fracture in other disease, right radius, subsequent encounter for fracture with nonunion Code(s): M84.433K - Pathological fracture, right radius, subsequent encounter for fracture with nonunion Status: Acute (3) Closed fracture distal radius and ulna: Qualifiers: Encounter type: subsequent encounter Fracture healing: with nonunion Laterality: right Qualified Code(s): S52.501K - Unspecified fracture of the lower end of right radius, subsequent encounter for closed fracture with nonunion; S52.601K - Unspecified fracture of lower end of right ulna, subsequent encounter for closed fracture with nonunion Code(s): S52.509A - Unspecified fracture of the lower end of unspecified radius, initial encounter for closed fracture; S52.609A - Unspecified fracture of lower end of unspecified ulna, initial encounter for closed fracture Status: Acute (4) Cellulitis of right wrist: Code(s): L03.113 - Cellulitis of right upper limb Status: Acute (5) Hyponatremia: Code(s): E87.1 - Hypo-osmolality and hyponatremia Status: Acute Plan Right arm cellulitis -Fall in early September, which resulted fracture on her right wrist. -10/11/2024 the for her right wrist fracture which was comminuted, intra-artic ular distal radius and ulnar shaft fracture. Patient underwent open reduction internal fixation distal radius fracture, company new tired, more than 3 fragments, ulnar shaft fracture by Dr. Rendon. -Unfortunately patient underwent another surgery on 11/23/2024 because of the broken hardware and the procedure performed was open reduction internal fixation distal radius and ulnar fracture, removal of the hardware from the right wrist, external fixator application right wrist which was also performed by Dr. Rendon. -Patient reports after the she felt the pain has been infected and called the orthopedic office and she was given antibiotics unfortunately she was allergic to sulfa and ciprofloxacin. On 12/19 patient went to [facility] ED and was transferred to [facility]. - 12/19 went to [facility] ED due to right wrist pain and warmth and had evidence of hyponatremia, hypokalemia -12/20 wrist x-ray Fractures of the radius and ulna with external and internal fixation. -ordered nasal MRSA -on Zosyn and vancomycin HypoNa -Asymptomatic HypoNa -TSH normal -if necessary Cortisol will be measured -Possible due to SIADH and dehydration -Euvolemia -Goal 6-8 meq/l in 24 hr period -Urine Na pending -urine osmolarity pending -trial of fluids -hold losartan -hydrochlorothiazide Atrial fibrillation Hold Eliquis due to possible surgical intervention Continue diltiazem 240 mg p.o. q.d. Continue digoxin 0.125 mg p.o. q.d. Subjective Date/time seen: 12/21/24 07:34 Interval history: 64-year-old woman with a past medical history of rheumatoid arthritis, osteopenia, fibromyalgia, persistent atrial fibrillation on Eliquis 5 mg p.o. b.i.d., digoxin, diltiazem presented from [facility] direct transfer to [place] for orthopedic evaluation. As per patient she is independent and had a fall in early September, which resulted fracture on her right wrist. Patient was operated on 10/11/2024 the for her right wrist fracture which was comminuted, intra-articular distal radius and ulnar shaft fracture. Patient underwent open reduction internal fixation distal radius fracture, company new tired, more than 3 fragments, ulnar shaft fracture by Dr. Rendon. Unfortunately patient underwent another surgery on 11/23/2024 because of the broken hardware and the procedure performed was open reduction internal fixation distal radius and ulnar fracture, removal of the hardware from the right wrist, external fixator application right wrist which was also performed by Dr. Rendon. Patient reports after the she felt the pain has been infected and call the orthopedic office and she was given antibiotics unfortunately she was allergic to sulfa and ciprofloxacin. On 12/19 patient went to [facility] ED and was transferred to [facility]. In addition [facility] ED patient had evidence of hyponatremia, hypokalemia and patient reports she was given 1 dose of ceftriaxone?. Labs were performed today. WBC 6, hemoglobin 10.5, hematocrit 33, platelet 335, sodium 128, potassium 3.7, chloride 89, bicarbonate 32, anion gap 7, creatinine 0.6. Patient is admitted in the setting of right arm cellulitis. Ordered blood culture. Patient is started on Zosyn and vancomycin from Orthopedic team. Currently holding Eliquis due to possible surgical intervention if needed. Holding losartan hydrochlorothiazide combination due to hyponatremia and patient started on gentle fluid resuscitation. Sodium will be monitored q.4 hours. 12/21/2024: Sodium is improving. Possible removal of external fixator. Patient is currently doing well better than yesterday Review of Systems Review of Systems: All systems reviewed & are unremarkable except as noted in HPI and below Constitutional: Constitutional: Reports no additional constitutional complaints ENT: Reports system reviewed and no additional complaints, except as documented Cardiovascular: Cardiovascular: Reports no additional cardiovascular complaints, Denies chest pain and Reports dyspnea Respiratory: Respiratory: Reports as per HPI, Denies chest congestion, Reports cough and Reports dyspnea Musculoskeletal: Musculoskeletal: Reports no additional musculoskeletal complaints Integumentary/Breasts: Skin/Breast: Reports system reviewed and no additional complaints, except as docu Neurologic: Denies confusion Psychiatric: Psychiatric: Denies confusion Exam Const: General: healthy appearing; No in distress or confusion Orientation/consciousness: oriented to person, oriented to place, oriented to time and No confusion HENMT: Head: normal to inspection, normocephalic and atraumatic Eyes: Conjunctivae: conjunctivae normal Sclera: sclerae normal Neck: Neck: supple and nontender Resp: Effort & Inspection: normal respiratory effort and no audible wheezes Cardio: Rate: regular rate Rhythm: regular rhythm Skin: General skin exam: no rashes or lesions noted Neuro: General: oriented to person, oriented to place, oriented to time and No confusion Extrem: Right upper extremity: normal to inspection, shoulder/upper arm no tenderness and no swelling, elbow/forearm tenderness of the mid-shaft forearm, swelling of the mid-shaft forearm ( Volar aspect, moderate) anteriorly and normal ROM, wrist tenderness of the distal radius and of the dorsal wrist, swelling (moderate) of the dorsal wrist and abnormal ROM pain with active ROM during with extension and with flexion and pain with passive ROM during with extension and with flexion (Ext 30, Flex 30, Pro 40, Sup 35) and Extremity exam: right hand neuromotor exam normal, neuromotor exam abnormal wrist extension abnormal limited by pain, neurosensory exam normal radial nerve sensory function normal, ulnar nerve sensory function normal, median nerve sensory function normal and digital nerve sensory function normal, tendon exam normal of all digits and vascular exam radial pulse present and normal capillary refill Left upper extremity: normal to inspection, shoulder/upper arm no tenderness and no swelling, elbow/forearm no tenderness and no swelling, wrist normal ROM and radial pulse present 2+; no tenderness and no swelling and hand normal capillary refill, neuromotor exam normal, neurosensory exam normal Details: radial nerve sensory function normal, ulnar nerve sensory function normal, median nerve sensory function normal and digital nerve sensory function normal, vascular exam normal capillary refill and normal ROM of fingers Other: external fixator pin sites clean and dry. No erythema or drainage. Moderate swelling forearm. Neurovascular intact. Able to move all fingers and thumb. Psych: Affect: normal affect Objective Data Vital Signs Vital Signs: Vital Signs - 24 hr 12/20/24 09:57 12/20/24 12:00 12/20/24 12:09 Temperature 96.9 F L Pulse Rate 87 88 Respiratory Rate 18 Blood Pressure 164/86 H Pulse Oximetry 99 Oxygen Delivery Room Air 12/20/24 13:55 12/20/24 16:00 12/20/24 20:00 Temperature 96.8 F L Pulse Rate 100 93 Respiratory Rate 20 Blood Pressure 154/81 H Pulse Oximetry 97 Oxygen Delivery Room Air 12/20/24 20:00 12/20/24 20:49 12/21/24 00:00 Temperature 97.7 F Pulse Rate 86 86 86 Respiratory Rate 20 Blood Pressure 157/84 H Pulse Oximetry 95 Oxygen Delivery 12/21/24 04:00 12/21/24 05:38 Temperature 98.1 F Pulse Rate 85 89 Respiratory Rate 20 Blood Pressure 179/87 H Pulse Oximetry 94 Oxygen Delivery Intake/Output Intake/Output: Intake & Output 12/18/24 12/19/24 12/20/24 12/21/24 23:59 23:59 23:59 23:59 Intake Total 1190 600 Output Total 1200 Balance 1190 -600 Meds/Results Medications: Active Medications Generic Name Dose Route Start Last Admin Trade Name Freq PRN Reason Stop Dose Admin Albuterol 2 puff 12/20/24 16:16 Albuterol Sulfate (*Sp) Aerosol 1 Puff INHALATION QIDRT PRN shortness of breath or wheezing Alprazolam 0.25 mg 12/20/24 16:16 12/20/24 17:50 Alprazolam (*Crx) 0.25 Mg Tablet PO 0.25 mg QID PRN Administration anxiety Carvedilol 25 mg 12/20/24 21:00 12/20/24 20:14 Carvedilol 25 Mg Tablet PO 25 mg Q12H [facility] Administration Digoxin 125 mcg 12/21/24 09:00 Digoxin Tab 125 Mcg Tablet PO DAILY [facility] Diltiazem HCl 240 mg 12/21/24 09:00 Diltiazem Hcl Cd 240 Mg Cap.24hr PO DAILY [facility] Duloxetine HCl 60 mg 12/21/24 09:00 Duloxetine Hcl 60 Mg Capsule.Dr PO DAILY [facility] Ezetimibe 10 mg 12/21/24 09:00 Ezetimibe 10 Mg Tablet PO DAILY [facility] Furosemide 20 mg 12/21/24 09:00 Furosemide 20 Mg Tablet PO DAILY [facility] Piperacillin/Tazobactam/Dextrose 3.375 gm in 50 mls @ 100 mls/hr 12/20/24 15:00 12/21/24 03:47 Zosyn 3.375 Gm/Ns 50 Ml IVPB Infused Q6H [facility] Infusion Sodium Chloride 1,000 mls @ 70 mls/hr 12/20/24 16:45 12/20/24 19:52 Normal Saline Iv IV CONT 70 mls/hr .[id number] [facility] Administration Vancomycin HCl 1,250 mg in 250 mls @ 166.667 mls/hr 12/21/24 10:00 Vancomycin 1,250 Mg/Ns 250 Ml IVPB Q18H [facility] Isosorbide Mononitrate 60 mg 12/21/24 09:00 Isosorbide Mononitrate 60 Mg Tab.Er.24h PO DAILY [facility] Levothyroxine Sodium 100 mcg 12/21/24 06:30 12/21/24 05:42 Levothyroxine Sodium 100 Mcg Tablet PO 100 mcg DAILY@0630 [facility] Administration Morphine Sulfate 2 mg 12/20/24 11:38 12/20/24 23:28 Morphine Sulfate (*Crx) 2 Mg/Ml Inj IV PUSH 2 mg Q4H PRN Administration Pain Rated 7-10 Oxycodone/Acetaminophen 1 tablet 12/20/24 18:25 12/21/24 03:18 Oxycodone/Acetaminophen (*Crx) 5-325 Mg Tablet PO 1 tablet Q4H PRN Administration Pain Rated 4-6 Pantoprazole Sodium 40 mg 12/21/24 09:00 Pantoprazole 40 Mg Tablet PO Q12HR [facility] Rosuvastatin Calcium 5 mg 12/21/24 09:00 Rosuvastatin 5 Mg Tablet PO DAILY [facility] Radiology Results: ITS Impressions Forearm X-Ray 12/20/24 14:44 IMPRESSION: Fractures of the radius and ulna with external and internal fixation. Labs Labs: Laboratory Results - last 24 hr 12/20/24 12/20/24 12/20/24 14:41 17:52 21:33 WBC 6.0 RBC 4.08 L Hgb 10.5 L Hct 33.0 L MCV 80.9 MCH 25.7 L MCHC 31.8 L RDW 16.6 H Plt Count 335 MPV 8.9 Immature Gran % (Auto) 0.5 Neut % (Auto) 80.6 H Lymph % (Auto) 11.4 L Page % (Auto) 6.7 Eos % (Auto) 0.5 Baso % (Auto) 0.3 Lymph # (Auto) 0.68 L Page # (Auto) 0.4 Eos # (Auto) 0.0 Baso # (Auto) 0.0 Abs Immat Gran (auto) 0.03 Absolute Neuts (auto) 4.8 Absolute Nucleated RBC 0.000 Nucleated RBC % 0.0 Sodium 128 L 127 L Potassium 3.7 Chloride 89 L Carbon Dioxide 32 H Anion Gap 7 BUN 6 L Creatinine 0.64 L Estim Creat Clear Calc 67 Estimated GFR > 60 Glucose 112 H Calcium 9.2 Total Bilirubin 0.5 AST 35 ALT 35 Alkaline Phosphatase 242 H Total Protein 8.0 Albumin 3.9 Urine Color Dark yellow Urine Appearance Clear Urine pH 6.5 Ur Specific [place] 1.025 Urine Protein 2+ H Urine Glucose (UA) Negative Urine Ketones Trace H Ur Blood (Man) Negative Urine Nitrate Negative Urine Bilirubin 1+ H Urine Urobilinogen 2.0 H Ur Leukocyte Esterase Trace H Urine RBC 0-2 Urine WBC 0-5 Ur Squamous Epith Cells Moderate Urine Bacteria None seen Urine Casts 0-2 Ur Random Sodium 29 Urine Creatinine 260.1 Nasal MRSA (PCR) Not detected 12/21/24 04:55 WBC 5.1 RBC 3.61 L Hgb 9.4 L Hct 29.9 L MCV 82.8 MCH 26.0 MCHC 31.4 L RDW 16.5 H Plt Count 292 MPV 8.8 Immature Gran % (Auto) Neut % (Auto) Lymph % (Auto) Page % (Auto) Eos % (Auto) Baso % (Auto) Lymph # (Auto) Page # (Auto) Eos # (Auto) Baso # (Auto) Abs Immat Gran (auto) Absolute Neuts (auto) Absolute Nucleated RBC Nucleated RBC % Sodium 131 L Potassium 3.2 L Chloride 96 L Carbon Dioxide 28 Anion Gap 7 BUN 5 L Creatinine 0.74 Estim Creat Clear Calc 59 Estimated GFR > 60 Glucose 99 Calcium 8.9 Total Bilirubin 0.4 AST 32 ALT 28 Alkaline Phosphatase 186 H Total Protein 7.0 Albumin 3.4 L Urine Color Urine Appearance Urine pH Ur Specific [place] Urine Protein Urine Glucose (UA) Urine Ketones Ur Blood (Man) Urine Nitrate Urine Bilirubin Urine Urobilinogen Ur Leukocyte Esterase Urine RBC Urine WBC Ur Squamous Epith Cells Urine Bacteria Urine Casts Ur Random Sodium Urine Creatinine Nasal MRSA (PCR) Hospitalist MIPS Advance Care Plan I have confirmed that the patient's Advanced Care Plan is present, code status is documented, or surrogate decision maker is listed in patient medical record.: Yes Medication Reconciliation I have utilized all available resources to obtain, update and review the patients current medications (includes all prescriptions, OTC, herbals, cannabis, and nutritional supplements).: Yes
[2024-12-21] MEDS: POTASSIUM CHLORIDE 20 MEQ ER TABLET 40 MEQ PO (08:39)
[2024-12-21] MEDS: EZETIMIBE 10 MG TABLET PO (09:30)
[2024-12-21] MEDS: dilTIAZem HCL CD 240 MG CAP.24HR PO (09:30)
[2024-12-21] MEDS: carvediloL 25 MG TABLET PO ×2 (09:31→20:05)
[2024-12-21] MEDS: PANTOPRAZOLE 40 MG TABLET PO ×2 (09:31→20:05)
[2024-12-21] MEDS: DULoxetine HCL 60 MG CAPSULE.DR PO (09:31)
[2024-12-21] MEDS: ISOSORBIDE MONONITRATE 60 MG TAB.ER.24H PO (09:31)
[2024-12-21] MEDS: ROSUVASTATIN 5 MG TABLET PO (09:31)
[2024-12-21] MEDS: DIGOXIN TAB 125 MCG TABLET PO (09:39)
[2024-12-21] MEDS: MORPHINE SULFATE (*CRX) 2 MG/ML INJ IV PUSH ×2 (09:44→20:09)
--- NOTE | 2024-12-21 10:27 | P.PNOP_ITS ---
Progress Note: A&P Assessment and Plan (1) Closed fracture distal radius and ulna: Qualifiers: Encounter type: subsequent encounter Fracture healing: with nonunion Laterality: right Qualified Code(s): S52.501K - Unspecified fracture of the lower end of right radius, subsequent encounter for closed fracture with nonunion; S52.601K - Unspecified fracture of lower end of right ulna, subsequent encounter for closed fracture with nonunion Code(s): S52.509A - Unspecified fracture of the lower end of unspecified radius, initial encounter for closed fracture; S52.609A - Unspecified fracture of lower end of unspecified ulna, initial encounter for closed fracture Status: Acute Assessment and Plan: 4 weeks s/p external fixator placement right forearm. Complicated by postoperative pin site concerns/swelling. Low Vitamin D on labs from 12/18. Vitamin D started daily. New labs reveal low albumin. Defer to hospitalist further work up/treatment. New radiographs reveal External fixation in good position. No signs of lucency to suggest infection. No evidence of loosening of ex fix. Early healing of distal radius and ulna fractures as evidence by new callus formation and bridging. Continue ex fix of the right forearm at this time. Continue ice, elevation. Maintain NWB of the RUE. No lifting/pushing/pulling. Pin site care BID. Continue IV antibiotics pending blood culture results. 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 Rendon, who agrees with current plan as indicated above. No further recommendations from Dr. Rendon at this time. Time Spent With Patient Time with patient: 15 - 25 minutes Subjective Subjective Date/Time Seen: 12/21/24 10:27 Interval history: Patient doing well. Pain well controlled. Notes an improvement in swelling today. Review of Systems Review of Systems: All systems reviewed & are unremarkable except as noted in HPI and below Constitutional: Constitutional: Reports no additional constitutional complaints ENT: Reports system reviewed and no additional complaints, except as documented Cardiovascular: Cardiovascular: Reports no additional cardiovascular complaints, Denies chest pain and Reports dyspnea Respiratory: Respiratory: Reports as per HPI, Denies chest congestion, Reports cough and Reports dyspnea Musculoskeletal: Musculoskeletal: Reports no additional musculoskeletal complaints Integumentary/Breasts: Skin/Breast: Reports system reviewed and no additional complaints, except as docu Neurologic: Denies confusion Psychiatric: Psychiatric: Denies confusion Exam Const: General: healthy appearing; No in distress or confusion Orien tation/consciousness: oriented to person, oriented to place, oriented to time and No confusion HENMT: Head: normal to inspection, normocephalic and atraumatic Eyes: Conjunctivae: conjunctivae normal Sclera: sclerae normal Neck: Neck: supple and nontender Resp: Effort & Inspection: normal respiratory effort and no audible wheezes Cardio: Rate: regular rate Rhythm: regular rhythm Skin: General skin exam: no rashes or lesions noted Neuro: General: oriented to person, oriented to place, oriented to time and No confusion Extrem: Right upper extremity: normal to inspection, shoulder/upper arm no tenderness and no swelling, elbow/forearm tenderness of the mid-shaft forearm, swelling of the mid-shaft forearm ( Volar aspect, moderate) anteriorly and normal ROM, wrist tenderness of the distal radius and of the dorsal wrist, swelling (moderate) of the dorsal wrist and abnormal ROM pain with active ROM during with extension and with flexion and pain with passive ROM during with extension and with flexion (Ext 30, Flex 30, Pro 40, Sup 35) and Extremity exam: right hand neuromotor exam normal, neuromotor exam abnormal wrist extension abnormal limited by pain, neurosensory exam normal radial nerve sensory function normal, ulnar nerve sensory function normal, median nerve sensory function normal and digital nerve sensory function normal, tendon exam normal of all digits and vascular exam radial pulse present and normal capillary refill Left upper extremity: normal to inspection, shoulder/upper arm no tenderness and no swelling, elbow/forearm no tenderness and no swelling, wrist normal ROM and radial pulse present 2+; no tenderness and no swelling and hand normal capillary refill, neuromotor exam normal, neurosensory exam normal Details: radial nerve sensory function normal, ulnar nerve sensory function normal, median nerve sensory function normal and digital nerve sensory function normal, vascular exam normal capillary refill and normal ROM of fingers Other: external fixator pin sites clean and dry. No erythema or drainage. Moderate swelling forearm. Neurovascular intact. Able to move all fingers and thumb. Objective Data Vital Signs Vital Signs: Vital Signs - 24 hr 12/20/24 12:00 12/20/24 12:09 12/20/24 13:55 Temperature 36.1 C L 36.0 C L Pulse Rate 87 88 100 Respiratory Rate 18 20 Blood Pressure 164/86 H 154/81 H Pulse Oximetry 99 97 Oxygen Delivery 12/20/24 16:00 12/20/24 20:00 12/20/24 20:00 Temperature Pulse Rate 93 86 Respiratory Rate Blood Pressure Pulse Oximetry Oxygen Delivery Room Air 12/20/24 20:49 12/21/24 00:00 12/21/24 04:00 Temperature 36.5 C Pulse Rate 86 86 85 Respiratory Rate 20 Blood Pressure 157/84 H Pulse Oximetry 95 Oxygen Delivery 12/21/24 05:38 12/21/24 09:31 12/21/24 09:39 Temperature 36.7 C Pulse Rate 89 86 86 Respiratory Rate 20 Blood Pressure 179/87 H Pulse Oximetry 94 Oxygen Delivery Intake/Output Intake/Output: Intake & Output 12/18/24 12/19/24 12/20/24 12/21/24 23:59 23:59 23:59 23:59 Intake Total 1190 840 Output Total 1200 Balance 1190 -360 Meds/Results Medications: Active Medications Generic Name Dose Route Start Last Admin Trade Name Freq PRN Reason Stop Dose Admin Albuterol 2 puff 12/20/24 16:16 Albuterol Sulfate (*Sp) Aerosol 1 Puff INHALATION QIDRT PRN shortness of breath or wheezing Alprazolam 0.25 mg 12/20/24 16:16 12/20/24 17:50 Alprazolam (*Crx) 0.25 Mg Tablet PO 0.25 mg QID PRN Administration anxiety Amlodipine Besylate 5 mg 12/21/24 09:00 12/21/24 09:54 Amlodipine Besylate 5 Mg Tablet PO Not Given DAILY GUME Carvedilol 25 mg 12/20/24 21:00 12/21/24 09:31 Carvedilol 25 Mg Tablet PO 25 mg Q12H GUME Administration Digoxin 125 mcg 12/21/24 09:00 12/21/24 09:39 Digoxin Tab 125 Mcg Tablet PO 125 mcg DAILY GUME Administration Diltiazem HCl 240 mg 12/21/24 09:00 12/21/24 09:30 Diltiazem Hcl Cd 240 Mg Cap.24hr PO 240 mg DAILY GUME Administration Duloxetine HCl 60 mg 12/21/24 09:00 12/21/24 09:31 Duloxetine Hcl 60 Mg Capsule.Dr PO 60 mg DAILY GUME Administration Ezetimibe 10 mg 12/21/24 09:00 12/21/24 09:30 Ezetimibe 10 Mg Tablet PO 10 mg DAILY GUME Administration Furosemide 20 mg 12/21/24 09:00 12/21/24 09:54 Furosemide 20 Mg Tablet PO Not Given DAILY GUME Piperacillin/Tazobactam/Dextrose 3.375 gm in 50 mls @ 100 mls/hr 12/20/24 15:00 12/21/24 09:32 Zosyn 3.375 Gm/Ns 50 Ml IVPB 100 mls/hr Q6H GUME Administration Sodium Chloride 1,000 mls @ 70 mls/hr 12/20/24 16:45 12/20/24 19:52 Normal Saline Iv IV CONT 70 mls/hr .[id number] GUME Administration Vancomycin HCl 1,250 mg in 250 mls @ 166.667 mls/hr 12/21/24 10:00 Vancomycin 1,250 Mg/Ns 250 Ml IVPB Q18H GUME Isosorbide Mononitrate 60 mg 12/21/24 09:00 12/21/24 09:31 Isosorbide Mononitrate 60 Mg Tab.Er.24h PO 60 mg DAILY GUME Administration Levothyroxine Sodium 100 mcg 12/21/24 06:30 12/21/24 05:42 Levothyroxine Sodium 100 Mcg Tablet PO 100 mcg DAILY@0630 GUME Administration Morphine Sulfate 2 mg 12/20/24 11:38 12/21/24 09:44 Morphine Sulfate (*Crx) 2 Mg/Ml Inj IV PUSH 2 mg Q4H PRN Administration Pain Rated 7-10 Oxycodone/Acetaminophen 1 tablet 12/20/24 18:25 12/21/24 03:18 Oxycodone/Acetaminophen (*Crx) 5-325 Mg Tablet PO 1 tablet Q4H PRN Administration Pain Rated 4-6 Pantoprazole Sodium 40 mg 12/21/24 09:00 12/21/24 09:31 Pantoprazole 40 Mg Tablet PO 40 mg Q12HR GUME Administration Rosuvastatin Calcium 5 mg 12/21/24 09:00 12/21/24 09:31 Rosuvastatin 5 Mg Tablet PO 5 mg DAILY GUME Administration Radiology Results: ITS Impressions Forearm X-Ray 12/20/24 14:44 IMPRESSION: Fractures of the radius and ulna with external and internal fixation. Labs Labs: Laboratory Results - last 24 hr 12/20/24 12/20/24 12/20/24 14:41 17:52 21:33 WBC 6.0 RBC 4.08 L Hgb 10.5 L Hct 33.0 L MCV 80.9 MCH 25.7 L MCHC 31.8 L RDW 16.6 H Plt Count 335 MPV 8.9 Immature Gran % (Auto) 0.5 Neut % (Auto) 80.6 H Lymph % (Auto) 11.4 L [place] % (Auto) 6.7 Eos % (Auto) 0.5 Baso % (Auto) 0.3 Lymph # (Auto) 0.68 L [place] # (Auto) 0.4 Eos # (Auto) 0.0 Baso # (Auto) 0.0 Abs Immat Gran (auto) 0.03 Absolute Neuts (auto) 4.8 Absolute Nucleated RBC 0.000 Nucleated RBC % 0.0 Sodium 128 L 127 L Potassium 3.7 Chloride 89 L Carbon Dioxide 32 H Anion Gap 7 BUN 6 L Creatinine 0.64 L Estim Creat Clear Calc 67 Estimated GFR > 60 Glucose 112 H Calcium 9.2 Total Bilirubin 0.5 AST 35 ALT 35 Alkaline Phosphatase 242 H Total Protein 8.0 Albumin 3.9 Urine Color Dark yellow Urine Appearance Clear Urine pH 6.5 Ur Specific [place] 1.025 Urine Protein 2+ H Urine Glucose (UA) Negative Urine Ketones Trace H Ur Blood (Man) Negative Urine Nitrate Negative Urine Bilirubin 1+ H Urine Urobilinogen 2.0 H Ur Leukocyte Esterase Trace H Urine RBC 0-2 Urine WBC 0-5 Ur Squamous Epith Cells Moderate Urine Bacteria None seen Urine Casts 0-2 Ur Random Sodium 29 Urine Creatinine 260.1 Nasal MRSA (PCR) Not detected 12/21/24 04:55 WBC 5.1 RBC 3.61 L Hgb 9.4 L Hct 29.9 L MCV 82.8 MCH 26.0 MCHC 31.4 L RDW 16.5 H Plt Count 292 MPV 8.8 Immature Gran % (Auto) Neut % (Auto) Lymph % (Auto) [place] % (Auto) Eos % (Auto) Baso % (Auto) Lymph # (Auto) [place] # (Auto) Eos # (Auto) Baso # (Auto) Abs Immat Gran (auto) Absolute Neuts (auto) Absolute Nucleated RBC Nucleated RBC % Sodium 131 L Potassium 3.2 L Chloride 96 L Carbon Dioxide 28 Anion Gap 7 BUN 5 L Creatinine 0.74 Estim Creat Clear Calc 59 Estimated GFR > 60 Glucose 99 Calcium 8.9 Total Bilirubin 0.4 AST 32 ALT 28 Alkaline Phosphatase 186 H Total Protein 7.0 Albumin 3.4 L Urine Color Urine Appearance Urine pH Ur Specific [place] Urine Protein Urine Glucose (UA) Urine Ketones Ur Blood (Man) Urine Nitrate Urine Bilirubin Urine Urobilinogen Ur Leukocyte Esterase Urine RBC Urine WBC Ur Squamous Epith Cells Urine Bacteria Urine Casts Ur Random Sodium Urine Creatinine Nasal MRSA (PCR)
[2024-12-21] MEDS: SODIUM CHLORIDE 0.9% IV 1,000 ML 70 ML IV CONT (11:00)
[2024-12-21] MEDS: ONDANSETRON INJ 4 MG/2 ML VIAL IV PUSH ×2 (11:39→20:17)
[2024-12-21] MEDS: VANCOMYCIN 1,250 MG/NS 250 ML 1,250 MG/250 ML BAG 166.67 MG IVPB (11:39)
[2024-12-21] MEDS: [UNRECOGNIZED DRUG - OTHER] XX ×2 (14:24→22:23)
[2024-12-21] MEDS: ALPRAZolam (*CRX) 0.25 MG TABLET PO (20:05)
[2024-12-22] VITALS (12 sets, daily range): BP systolic 150–157; BP diastolic 69–85; PULSE 60–78; RESP 17–18; TEMP 36.4–36.7; O2SAT 93–96
[2024-12-22] MEDS: SODIUM CHLORIDE 0.9% IV 1,000 ML 70 ML IV CONT ×2 (01:39→20:21)
[2024-12-22] MEDS: PIPERACILLN/TAZ 3.375GM/NS50ML 3.375 GM/50 ML BAG IVPB ×4 (02:39→20:22)
[2024-12-22] MEDS: ONDANSETRON INJ 4 MG/2 ML VIAL IV PUSH ×2 (02:42→20:27)
[2024-12-22] MEDS: MORPHINE SULFATE (*CRX) 2 MG/ML INJ IV PUSH ×2 (02:42→14:17)
[2024-12-22 02:59] LABS: Hematocrit 26.9 % (37.0-47.0); Hemoglobin 8.3 g/dL (12.0-15.0); Mean Corpuscular HGB Conc 30.9 g/dl (32-36); Mean Corpuscular Hemoglobin 25.8 pg (26-34); Mean Corpuscular Volume 83.5 fl (80-100); Mean Platelet Volume 8.1 fl (7.4-10.4); Platelet Count Result 262 k/mm3 (150-375); Red Blood Count 3.22 M/mm3 (4.2-5.4); White Blood Count 5.5 K/mm3 (4.5-10.0)
[2024-12-22 03:12] LABS: Alanine Aminotransferase 23 U/L (6-35); Albumin Level 3.1 g/dL (3.5-5.1); Alkaline Phosphatase 141 U/L (38-126); Anion Gap 7 mmol/L (4-12); Aspartate Amino Transferase 30 U/L (14-36); Bilirubin,Total 0.3 mg/dL (0.2-1.3); Blood Urea Nitrogen 7 mg/dL (7-17); Calcium 8.5 mg/dL (8.4-10.2); Carbon Dioxide 26 mmol/L (22-30); Chloride 99 mmol/L (98-107); Estimated CRCL calculation 38 ml/min; Estimated Glomerular Filt Rate 47; Glucose 100 mg/dL (65-110); Potassium 3.5 mmol/L (3.4-5.0); Sodium 132 mmol/L (137-145)
[2024-12-22 03:23] LABS: Vancomycin Trough 15.4 ug/mL (10.0-20.0)
[2024-12-22] MEDS: VANCOMYCIN 1,250 MG/NS 250 ML 1,250 MG/250 ML BAG 166.67 MG IVPB (04:17)
[2024-12-22] MEDS: LEVOTHYROXINE SODIUM 100 MCG TABLET PO (05:32)
[2024-12-22] MEDS: [UNRECOGNIZED DRUG - OTHER] XX ×3 (05:52→20:28)
[2024-12-22] MEDS: amLODIPine BESYLATE 5 MG TABLET PO (08:32)
[2024-12-22] MEDS: PANTOPRAZOLE 40 MG TABLET PO ×2 (08:32→20:20)
[2024-12-22] MEDS: FUROSEMIDE 20 MG TABLET PO (08:33)
[2024-12-22] MEDS: carvediloL 25 MG TABLET PO ×2 (08:33→20:21)
[2024-12-22] MEDS: dilTIAZem HCL CD 240 MG CAP.24HR PO (08:33)
[2024-12-22] MEDS: EZETIMIBE 10 MG TABLET PO (08:33)
[2024-12-22] MEDS: CHOLECALCIFEROL 1,000 UNITS TABLET 1000 UNITS PO (08:33)
[2024-12-22] MEDS: DULoxetine HCL 60 MG CAPSULE.DR PO (08:33)
[2024-12-22] MEDS: ROSUVASTATIN 5 MG TABLET PO (08:33)
[2024-12-22] MEDS: DIGOXIN TAB 125 MCG TABLET PO (08:33)
[2024-12-22] MEDS: ISOSORBIDE MONONITRATE 60 MG TAB.ER.24H PO (08:33)
[2024-12-22] MEDS: oxyCODONE/ACETAMINOPHEN (*CRX) 5-325 MG TABLET 1 TABLET PO ×3 (08:40→23:58)
--- NOTE | 2024-12-22 09:05 | PM.IMPN ---
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: Qualifiers: Pathology associated with fracture: other disease Qualified Code(s): M84.633K - Pathological fracture in other disease, right radius, subsequent encounter for fracture with nonunion Code(s): M84.433K - Pathological fracture, right radius, subsequent encounter for fracture with nonunion Status: Acute (3) Closed fracture distal radius and ulna: Qualifiers: Encounter type: subsequent encounter Fracture healing: with nonunion Laterality: right Qualified Code(s): S52.501K - Unspecified fracture of the lower end of right radius, subsequent encounter for closed fracture with nonunion; S52.601K - Unspecified fracture of lower end of right ulna, subsequent encounter for closed fracture with nonunion Code(s): S52.509A - Unspecified fracture of the lower end of unspecified radius, initial encounter for closed fracture; S52.609A - Unspecified fracture of lower end of unspecified ulna, initial encounter for closed fracture Status: Acute (4) Cellulitis of right wrist: Code(s): L03.113 - Cellulitis of right upper limb Status: Acute (5) Hyponatremia: Code(s): E87.1 - Hypo-osmolality and hyponatremia Status: Acute Plan Right arm cellulitis -Fall in early September, which resulted fracture on her right wrist. -10/11/2024 the for her right wrist fracture which was comminuted, intra-articular distal radius and ulnar shaft fracture. Patient underwent open reduction internal fixation distal radius fracture, company new tired, more than 3 fragments, ulnar shaft fracture by Dr. Rendon. -Unfortunately patient underwent another surgery on 11/23/2024 because of the broken hardware and the procedure performed was open reduction internal fixation distal radius and ulnar fracture, removal of the hardware from the right wrist, external fixator application right wrist which was also performed by Dr. Rendon. -Patient reports after the she felt the pain has been infected and called the orthopedic office and she was given antibiotics unfortunately she was allergic to sulfa and ciprofloxacin. On 12/19 patient went to [facility] ED and was transferred to [facility]. - 12/19 went to [facility] ED due to right wrist pain and warmth and had evidence of hyponatremia, hypokalemia -12/20 wrist x-ray Fractures of the radius and ulna with external and internal fixation. -negative nasal MRSA -on Zosyn and vancomycin HypoNa/ANGELIKA -Asymptomatic HypoNa -TSH normal -if necessary Cortisol will be measured -Possible due to SIADH and dehydration -Euvolemia -Goal 6-8 meq/l in 24 hr period -Urine Na pending -urine osmolarity pending -trial of fluids -hold losartan -hydrochlorothiazide -renal ultrasound -CPK -discontinue Lasix -consulted Nephrology and appreciate recommendation Atrial fibrillation Hold Eliquis due to possible surgical intervention Continue diltiazem 240 mg p.o. q.d. Continue digoxin 0.125 mg p.o. q.d. Subjective Date/time seen: 12/22/24 09:05 Interval history: 64-year-old woman with a past medical history of rheumatoid arthritis, osteopenia, fibromyalgia, persistent atrial fibrillation on Eliquis 5 mg p.o. b.i.d., digoxin, diltiazem presented from [facility] direct transfer to [place] for orthopedic evaluation. As per patient she is independent and had a fall in early September, which resulted fracture on her right wrist. Patient was operated on 10/11/2024 the for her right wrist fracture which was comminuted, intra-articular distal radius and ulnar shaft fracture. Patient underwent open reduction internal fixation distal radius fracture, company new tired, more than 3 fragments, ulnar shaft fracture by Dr. eRndon. Unfortunately patient underwent another surgery on 11/23/2024 because of the broken hardware and the procedure performed was open reduction internal fixation distal radius and ulnar fracture, removal of the hardware from the right wrist, external fixator application right wrist which was also performed by Dr. Rendon. Patient reports after the she felt the pain has been infected and call the orthopedic office and she was given antibiotics unfortunately she was allergic to sulfa and ciprofloxacin. On 12/19 patient went to [facility] ED and was transferred to [facility]. In addition [facility] ED patient had evidence of hyponatremia, hypokalemia and patient reports she was given 1 dose of ceftriaxone?. Labs were performed today. WBC 6, hemoglobin 10.5, hematocrit 33, platelet 335, sodium 128, potassium 3.7, chloride 89, bicarbonate 32, anion gap 7, creatinine 0.6. Patient is admitted in the setting of right arm cellulitis. Ordered blood culture. Patient is started on Zosyn and vancomycin from Orthopedic team. Currently holding Eliquis due to possible surgical intervention if needed. Holding losartan hydrochlorothiazide combination due to hyponatremia and patient started on gentle fluid resuscitation. Sodium will be monitored q.4 hours. 12/21/2024: Sodium is improving. Possible removal of external fixator. Patient is currently doing well better than yesterday 12/22/2024: Consulted nephrology due to DKA and hyponatremia. Nasal MRSA negative. Discontinued vancomycin. Discussed with the Nephrology. Review of Systems Review of Systems: All systems reviewed & are unremarkable except as noted in HPI and below Constitutional: Constitutional: Reports no additional constitutional complaints ENT: Reports system reviewed and no additional complaints, except as documented Cardiovascular: Cardiovascular: Reports no additional cardiovascular complaints, Denies chest pain and Reports dyspnea Respiratory: Respiratory: Reports as per HPI, Denies chest congestion, Reports cough and Reports dyspnea Musculoskeletal: Musculoskeletal: Reports no additional musculoskeletal complaints Integumentary/Breasts: Skin/Breast: Reports system reviewed and no additional complaints, except as docu Neurologic: Denies confusion Psychiatric: Psychiatric: Denies confusion Exam Const: General: healthy appearing; No in distress or confusion Orientation/consciousness: oriented to person, oriented to place, oriented to time and No confusion HENMT: Head: normal to inspection, normocephalic and atraumatic Eyes: Conjunctivae: conjunctivae normal Sclera: sclerae normal Neck: Neck: supple and nontender Resp: Effort & Inspection: normal respiratory effort and no audible wheezes Cardio: Rate: regular rate Rhythm: regular rhythm Skin: General skin exam: no rashes or lesions noted Neuro: General: oriented to person, oriented to place, oriented to time and No confusion Extrem: Right upper extremity: normal to inspection, shoulder/upper arm no tenderness and no swelling, elbow/forearm tenderness of the mid-shaft forearm, swelling of the mid-shaft forearm ( Volar aspect, moderate) anteriorly and normal ROM, wrist tenderness of the distal radius and of the dorsal wrist, swelling (moderate) of the dorsal wrist and abnormal ROM pain with active ROM during with extension and with flexion and pain with passive ROM during with extension and with flexion (Ext 30, Flex 30, Pro 40, Sup 35) and Extremity exam: right hand neuromotor exam normal, neuromotor exam abnormal wrist extension abnormal limited by pain, neurosensory exam normal radial nerve sensory function normal, ulnar nerve sensory function normal, median nerve sensory function normal and digital nerve sensory function normal, tendon exam normal of all digits and vascular exam radial pulse present and normal capillary refill Left upper extremity: normal to inspection, shoulder/upper arm no tenderness and no swelling, elbow/forearm no tenderness and no swelling, wrist normal ROM and radial pulse present 2+; no tenderness and no swelling and hand normal capillary refill, neuromotor exam normal, neurosensory exam normal Details: radial nerve sensory function normal, ulnar nerve sensory function normal, median nerve sensory function normal and digital nerve sensory function normal, vascular exam normal capillary refill and normal ROM of fingers Other: external fixator pin sites clean and dry. No erythema or drainage. Moderate swelling forearm. Neurovascular intact. Able to move all fingers and thumb. Psych: Affect: normal affect Objective Data Vital Signs Vital Signs: Vital Signs - 24 hr 12/21/24 09:31 12/21/24 09:39 12/21/24 11:37 Temperature Pulse Rate 86 86 Respiratory Rate Blood Pressure Pulse Oximetry Oxygen Delivery Room Air 12/21/24 12:00 12/21/24 13:44 12/21/24 16:00 Temperature 97.9 F Pulse Rate 76 79 75 Respiratory Rate 20 Blood Pressure 148/82 H Pulse Oximetry 96 Oxygen Delivery 12/21/24 20:00 12/21/24 20:00 12/21/24 20:02 Temperature 98.2 F Pulse Rate 77 76 Respiratory Rate 17 Blood Pressure 165/92 H Pulse Oximetry 100 Oxygen Delivery Room Air 12/21/24 20:05 12/22/24 00:00 12/22/24 04:00 Temperature Pulse Rate 78 73 69 Respiratory Rate Blood Pressure Pulse Oximetry Oxygen Delivery 12/22/24 04:57 12/22/24 08:30 12/22/24 08:33 Temperature 97.7 F Pulse Rate 78 78 Respiratory Rate 17 Blood Pressure 156/85 H Pulse Oximetry 95 93 Oxygen Delivery Room Air Intake/Output Intake/Output: Intake & Output 12/19/24 12/20/24 12/21/24 12/22/24 23:59 23:59 23:59 23:59 Intake Total 1190 3080 1730 Output Total 3000 1100 Balance 1190 80 630 Meds/Results Medications: Active Medications Generic Name Dose Route Start Last Admin Trade Name Freq PRN Reason Stop Dose Admin Albuterol 2 puff 12/20/24 16:16 Albuterol Sulfate (*Sp) Aerosol 1 Puff INHALATION QIDRT PRN shortness of breath or wheezing Alprazolam 0.25 mg 12/20/24 16:16 12/21/24 20:05 Alprazolam (*Crx) 0.25 Mg Tablet PO 0.25 mg QID PRN Administration anxiety Amlodipine Besylate 5 mg 12/21/24 09:00 12/22/24 08:32 Amlodipine Besylate 5 Mg Tablet PO 5 mg DAILY GUME Administration Carvedilol 25 mg 12/20/24 21:00 12/22/24 08:33 Carvedilol 25 Mg Tablet PO 25 mg Q12H GUME Administration Digoxin 125 mcg 12/21/24 09:00 12/22/24 08:33 Digoxin Tab 125 Mcg Tablet PO 125 mcg DAILY GUME Administration Diltiazem HCl 240 mg 12/21/24 09:00 12/22/24 08:33 Diltiazem Hcl Cd 240 Mg Cap.24hr PO 240 mg DAILY GUME Administration Duloxetine HCl 60 mg 12/21/24 09:00 12/22/24 08:33 Duloxetine Hcl 60 Mg Capsule.Dr PO 60 mg DAILY GUME Administration Ezetimibe 10 mg 12/21/24 09:00 12/22/24 08:33 Ezetimibe 10 Mg Tablet PO 10 mg DAILY GUME Administration Furosemide 20 mg 12/21/24 09:00 12/22/24 08:33 Furosemide 20 Mg Tablet PO 20 mg DAILY GUME Administration Piperacillin/Tazobactam/Dextrose 3.375 gm in 50 mls @ 100 mls/hr 12/20/24 15:00 12/22/24 08:33 Zosyn 3.375 Gm/Ns 50 Ml IVPB 100 mls/hr Q6H GUME Administration Sodium Chloride 1,000 mls @ 70 mls/hr 12/20/24 16:45 12/22/24 01:39 Normal Saline Iv IV CONT 70 mls/hr .[id number] GUME Administration Vancomycin HCl 1,250 mg in 250 mls @ 166.667 mls/hr 12/21/24 10:00 12/22/24 04:17 Vancomycin 1,250 Mg/Ns 250 Ml IVPB 166.67 mls/hr Q18H GUME Administration Isosorbide Mononitrate 60 mg 12/21/24 09:00 12/22/24 08:33 Isosorbide Mononitrate 60 Mg Tab.Er.24h PO 60 mg DAILY GUME Administration Levothyroxine Sodium 100 mcg 12/21/24 06:30 12/22/24 05:32 Levothyroxine Sodium 100 Mcg Tablet PO 100 mcg DAILY@0630 GUME Administration Morphine Sulfate 2 mg 12/20/24 11:38 12/22/24 02:42 Morphine Sulfate (*Crx) 2 Mg/Ml Inj IV PUSH 2 mg Q4H PRN Administration Pain Rated 7-10 Non-Formulary ( 0 each 12/21/24 14:00 12/22/24 05:52 Everclear Ethyl XX 01/20/25 13:59 1 each Alcohol Q8HR GUME Administration Miscellaneous Liquid ) 4 Oz Non-Formulary ( 0 each 12/21/24 13:56 Everclear Ethyl XX 01/20/25 13:55 Alcohol PRN PRN Miscellaneous Liquid EXTERNAL FIXATOR PIN CLEANING ) 4 Oz Ondansetron HCl 4 mg 12/21/24 11:06 12/22/24 02:42 Ondansetron Inj 4 Mg/2 Ml Vial IV PUSH 4 mg Q4H PRN Administration Nausea And Vomiting Oxycodone/Acetaminophen 1 tablet 12/20/24 18:25 12/22/24 08:40 Oxycodone/Acetaminophen (*Crx) 5-325 Mg Tablet PO 1 tablet Q4H PRN Administration Pain Rated 4-6 Pantoprazole Sodium 40 mg 12/21/24 09:00 12/22/24 08:32 Pantoprazole 40 Mg Tablet PO 40 mg Q12HR GUME Administration Rosuvastatin Calcium 5 mg 12/21/24 09:00 12/22/24 08:33 Rosuvastatin 5 Mg Tablet PO 5 mg DAILY GUME Administration Vitamin D 1,000 units 12/22/24 09:00 12/22/24 08:33 Cholecalciferol 1,000 Units Tablet PO 1,000 units DAILY GUME Administration Radiology Results: ITS Impressions Forearm X-Ray 12/20/24 14:44 IMPRESSION: Fractures of the radius and ulna with external and internal fixation. Labs Labs: Laboratory Results - last 24 hr 12/22/24 02:55 WBC 5.5 RBC 3.22 L Hgb 8.3 L Hct 26.9 L MCV 83.5 MCH 25.8 L MCHC 30.9 L RDW 17.0 H Plt Count 262 MPV 8.1 Sodium 132 L Potassium 3.5 Chloride 99 Carbon Dioxide 26 Anion Gap 7 BUN 7 Creatinine 1.17 H Estim Creat Clear Calc 38 Estimated GFR 47 L Glucose 100 Calcium 8.5 Total Bilirubin 0.3 AST 30 ALT 23 Alkaline Phosphatase 141 H Total Protein 6.0 L Albumin 3.1 L Vancomycin Trough 15.4 Hospitalist MIPS Advance Care Plan I have confirmed that the patient's Advanced Care Plan is present, code status is documented, or surrogate decision maker is listed in patient medical record.: Yes Medication Reconciliation I have utilized all available resources to obtain, update and review the patients current medications (includes all prescriptions, OTC, herbals, cannabis, and nutritional supplements).: Yes
--- NOTE | 2024-12-22 09:23 | PM.PNORT ---
Progress Note: A&P Assessment and Plan (1) Closed fracture distal radius and ulna: Qualifiers: Encounter type: subsequent encounter Fracture healing: with nonunion Laterality: right Qualified Code(s): S52.501K - Unspecified fracture of the lower end of right radius, subsequent encounter for closed fracture with nonunion; S52.601K - Unspecified fracture of lower end of right ulna, subsequent encounter for closed fracture with nonunion Code(s): S52.509A - Unspecified fracture of the lower end of unspecified radius, initial encounter for closed fracture; S52.609A - Unspecified fracture of lower end of unspecified ulna, initial encounter for closed fracture Status: Acute Assessment and Plan: Radiographs reviewed with patient which show well-maintained alignment of the fracture and no signs of loosening or complication with the external fixator. No evidence of osteomyelitis. Swelling of the form slightly improved. Continue with empiric antibiotics. Blood cultures negative to date. Continue edema control. No plans for surgery of the right forearm at this time. Subjective Subjective Date/Time Seen: 12/22/24 09:23 Principal diagnosis: Right radius and ulna fracture Interval history: Patient up in chair. States swelling slightly better. No other complaints or changes overnight. Exam Const: General: healthy appearing; No in distress or confusion Orientation/consciousness: oriented to person, oriented to place, oriented to time and No confusion HENMT: Head: normal to inspection, normocephalic and atraumatic Neck: Neck: supple and nontender Resp: Effort & Inspection: normal respiratory effort and no audible wheezes Neuro: General: oriented to person, oriented to place, oriented to time and No confusion Extrem: Right upper extremity: normal to inspection, shoulder/upper arm no tenderness and no swelling, elbow/forearm tenderness of the mid-shaft forearm, swelling of the mid-shaft forearm ( Volar aspect, moderate) anteriorly and normal ROM, wrist tenderness of the distal radius and of the dorsal wrist, swelling (moderate) of the dorsal wrist and abnormal ROM pain with active ROM during with extension and with flexion and pain with passive ROM during with extension and with flexion (Ext 30, Flex 30, Pro 40, Sup 35) and Extremity exam: right hand neuromotor exam normal, neuromotor exam abnormal wrist extension abnormal limited by pain, neurosensory exam normal radial nerve sensory function normal, ulnar nerve sensory function normal, median nerve sensory function normal and digital nerve sensory function normal, tendon exam normal of all digits and vascular exam radial pulse present and normal capillary refill Left upper extremity: normal to inspection, shoulder/upper arm no tenderness and no swelling, elbow/forearm no tenderness and no swelling, wrist normal ROM and radial pulse present 2+; no tenderness and no swelling and hand normal capillary refill, neuromotor exam normal, neurosensory exam normal Details: radial nerve sensory function normal, ulnar nerve sensory function normal, median nerve sensory function normal and digital nerve sensory function normal, vascular exam normal capillary refill and normal ROM of fingers Other: external fixator pin sites clean and dry. No erythema or drainage. Moderate swelling forearm-slightly improved. Neurovascular intact. Able to move all fingers and thumb. Psych: Affect: normal affect Objective Data Vital Signs Vital Signs: Vital Signs - 24 hr 12/21/24 09:31 12/21/24 09:39 12/21/24 11:37 Temperature Pulse Rate 86 86 Respiratory Rate Blood Pressure Pulse Oximetry Oxygen Delivery Room Air 12/21/24 12:00 12/21/24 13:44 12/21/24 16:00 Temperature 97.9 F Pulse Rate 76 79 75 Respiratory Rate 20 Blood Pressure 148/82 H Pulse Oximetry 96 Oxygen Delivery 12/21/24 20:00 12/21/24 20:00 12/21/24 20:02 Temperature 98.2 F Pulse Rate 77 76 Respiratory Rate 17 Blood Pressure 165/92 H Pulse Oximetry 100 Oxygen Delivery Room Air 12/21/24 20:05 12/22/24 00:00 12/22/24 04:00 Temperature Pulse Rate 78 73 69 Respiratory Rate Blood Pressure Pulse Oximetry Oxygen Delivery 12/22/24 04:57 12/22/24 08:30 12/22/24 08:33 Temperature 97.7 F Pulse Rate 78 78 Respiratory Rate 17 Blood Pressure 156/85 H Pulse Oximetry 95 93 Oxygen Delivery Room Air Intake/Output Intake/Output: Intake & Output 12/19/24 12/20/24 12/21/24 12/22/24 23:59 23:59 23:59 23:59 Intake Total 1190 3080 1730 Output Total 3000 1100 Balance 1190 80 630 Meds/Results Medications: Active Medications Generic Name Dose Route Start Last Admin Trade Name Freq PRN Reason Stop Dose Admin Albuterol 2 puff 12/20/24 16:16 Albuterol Sulfate (*Sp) Aerosol 1 Puff INHALATION QIDRT PRN shortness of breath or wheezing Alprazolam 0.25 mg 12/20/24 16:16 12/21/24 20:05 Alprazolam (*Crx) 0.25 Mg Tablet PO 0.25 mg QID PRN Administration anxiety Amlodipine Besylate 5 mg 12/21/24 09:00 12/22/24 08:32 Amlodipine Besylate 5 Mg Tablet PO 5 mg DAILY GUME Administration Carvedilol 25 mg 12/20/24 21:00 12/22/24 08:33 Carvedilol 25 Mg Tablet PO 25 mg Q12H GUME Administration Digoxin 125 mcg 12/21/24 09:00 12/22/24 08:33 Digoxin Tab 125 Mcg Tablet PO 125 mcg DAILY GUME Administration Diltiazem HCl 240 mg 12/21/24 09:00 12/22/24 08:33 Diltiazem Hcl Cd 240 Mg Cap.24hr PO 240 mg DAILY GUME Administration Duloxetine HCl 60 mg 12/21/24 09:00 12/22/24 08:33 Duloxetine Hcl 60 Mg Capsule.Dr PO 60 mg DAILY GUME Administration Ezetimibe 10 mg 12/21/24 09:00 12/22/24 08:33 Ezetimibe 10 Mg Tablet PO 10 mg DAILY GUME Administration Furosemide 20 mg 12/21/24 09:00 12/22/24 08:33 Furosemide 20 Mg Tablet PO 20 mg DAILY GUME Administration Piperacillin/Tazobactam/Dextrose 3.375 gm in 50 mls @ 100 mls/hr 12/20/24 15:00 12/22/24 08:33 Zosyn 3.375 Gm/Ns 50 Ml IVPB 100 mls/hr Q6H GUME Administration Sodium Chloride 1,000 mls @ 70 mls/hr 12/20/24 16:45 12/22/24 01:39 Normal Saline Iv IV CONT 70 mls/hr .[id number] GUME Administration Vancomycin HCl 1,250 mg in 250 mls @ 166.667 mls/hr 12/21/24 10:00 12/22/24 04:17 Vancomycin 1,250 Mg/Ns 250 Ml IVPB 166.67 mls/hr Q18H GUME Administration Isosorbide Mononitrate 60 mg 12/21/24 09:00 12/22/24 08:33 Isosorbide Mononitrate 60 Mg Tab.Er.24h PO 60 mg DAILY GUME Administration Levothyroxine Sodium 100 mcg 12/21/24 06:30 12/22/24 05:32 Levothyroxine Sodium 100 Mcg Tablet PO 100 mcg DAILY@0630 GUME Administration Morphine Sulfate 2 mg 12/20/24 11:38 12/22/24 02:42 Morphine Sulfate (*Crx) 2 Mg/Ml Inj IV PUSH 2 mg Q4H PRN Administration Pain Rated 7-10 Non-Formulary ( 0 each 12/21/24 14:00 12/22/24 05:52 Everclear Ethyl XX 01/20/25 13:59 1 each Alcohol Q8HR GUME Administration Miscellaneous Liquid ) 4 Oz Non-Formulary ( 0 each 12/21/24 13:56 Everclear Ethyl XX 01/20/25 13:55 Alcohol PRN PRN Miscellaneous Liquid EXTERNAL FIXATOR PIN CLEANING ) 4 Oz Ondansetron HCl 4 mg 12/21/24 11:06 12/22/24 02:42 Ondansetron Inj 4 Mg/2 Ml Vial IV PUSH 4 mg Q4H PRN Administration Nausea And Vomiting Oxycodone/Acetaminophen 1 tablet 12/20/24 18:25 12/22/24 08:40 Oxycodone/Acetaminophen (*Crx) 5-325 Mg Tablet PO 1 tablet Q4H PRN Administration Pain Rated 4-6 Pantoprazole Sodium 40 mg 12/21/24 09:00 12/22/24 08:32 Pantoprazole 40 Mg Tablet PO 40 mg Q12HR GUME Administration Rosuvastatin Calcium 5 mg 12/21/24 09:00 12/22/24 08:33 Rosuvastatin 5 Mg Tablet PO 5 mg DAILY GUME Administration Vitamin D 1,000 units 12/22/24 09:00 12/22/24 08:33 Cholecalciferol 1,000 Units Tablet PO 1,000 units DAILY GUME Administration Radiology Results: ITS Impressions Forearm X-Ray 12/20/24 14:44 IMPRESSION: Fractures of the radius and ulna with external and internal fixation. Labs Labs: Laboratory Results - last 24 hr 12/22/24 02:55 WBC 5.5 RBC 3.22 L Hgb 8.3 L Hct 26.9 L MCV 83.5 MCH 25.8 L MCHC 30.9 L RDW 17.0 H Plt Count 262 MPV 8.1 Sodium 132 L Potassium 3.5 Chloride 99 Carbon Dioxide 26 Anion Gap 7 BUN 7 Creatinine 1.17 H Estim Creat Clear Calc 38 Estimated GFR 47 L Glucose 100 Calcium 8.5 Total Bilirubin 0.3 AST 30 ALT 23 Alkaline Phosphatase 141 H Total Protein 6.0 L Albumin 3.1 L Vancomycin Trough 15.4
--- NOTE | 2024-12-22 10:18 | PM.CNNEP ---
Assessment and Plan Assessment and plan (1) Acute kidney injury: Code(s): N17.9 - Acute kidney failure, unspecified Status: Acute Assessment and Plan: the patient has acute kidney injury. She has a baseline creatinine at around 0.6. It was 0.9 when she got here then dropped to 0.6 and today is up to 1.17. There are several issues that might contribute. The patient does have protein in the urine which may be a false-positive because her urine is so concentrated or may be because she really has protein in the urine because of her hypertension and sleep apnea. Will check on this. If she does then she would be more susceptible to episodes of acute kidney injury. The patient has been on celecoxib and p.r.n. ibuprofen both of which can affect the kidneys. The patient has a possible infection of her hardware however it does not seem very bad, her blood cultures are negative so far, and her white cell count is okay so it does not seem like this is playing a big role. The patient is on vancomycin plus Zosyn which can sometimes lead to an elevated creatinine. I would suggest changing the vancomycin to linezolid. The patient was on a sulfa before admission which can cause the creatinine to rise but she has not had this since admission so it makes it a little less likely this is involved now , specially since the creatinine improved then worsened during admission. The patient is on furosemide which can lead to dehydration. She has been making a lot of urine in response to the Lasix. Admittedly, she has been taking in a lot of fluid between IVs and p.o., but her urine specific gravity is low and her urine electrolytes show pre renal azotemia. she did have hives from sulfa before she came in the hospital and so could have allergic interstitial nephritis but again, the creatinine got better then got worse while here and off the sulfa so I do not think this is playing a role. there are other causes such as glomerulonephritis, Obstruction, infiltrative diseases. at this point I am going to check a urine protein to creatinine ratio, CPK, And a renal ultrasound. If she has much protein in the urine then we can check other causes of that and her for creatinine continues to rise we can check on other causes as well. At this point will suggest changing vancomycin to linezolid or just stopping it, stop furosemide, continue IV fluids, will get an echocardiogram, and will go from there. (2) Hyponatremia: Code(s): E87.1 - Hypo-osmolality and hyponatremia Status: Acute Assessment and Plan: Sodium level has been on the low side off and on for a long time according to the patient. We do not have records to support this except for the 1 sodium level in September which was indeed low. Low sodium could be due to the hydrochlorothiazide that she was on as an outpatient. TSH is okay. Will check serum and urine osmolality, SPEP, as well as a cortisol level we are stopping the Lasix. Patient is getting IV fluids. This is to treat her dehydration. Will check a sodium this afternoon. And if it is lower we can start a fluid restriction. (3) Hypokalemia: Code(s): E87.6 - Hypokalemia Status: Acute Assessment and Plan: This is resolved. Probably due to the Lasix. (4) Atrial fibrillation: Code(s): I48.91 - Unspecified atrial fibrillation Status: Acute Assessment and Plan: The patient has a regular heart rate today. (5) HTN (hypertension): Code(s): I10 - Essential (primary) hypertension Status: Acute Assessment and Plan: Blood pressure is a little bit high. She was just started on amlodipine (6) SHIRA (obstructive sleep apnea): Code(s): G47.33 - Obstructive sleep apnea (adult) (pediatric) Status: Acute Assessment and Plan: I recommended that she use the CPAP machine (7) Tobacco use: Code(s): Z72.0 - Tobacco use Status: Acute Assessment and Plan: patient says she is going to try to quit. She can talk with PCP about help with this but since she smokes so rarely and only if she drinks, and she said she is going to stop drinking so it will prior to be easy to stop smoking if she stops drinking. History of Present Illness Reason for Consult Consult date: 12/22/24 Chief Complaint Chief complaint: Right wrist post op complications History of Present Illness Narrative: Antoinette is a very pleasant 64-year-old lady who has multiple medical problems including atrial fibrillation, congestive heart failure by history, hypertension, fibromyalgia, rheumatoid arthritis, osteopenia. The patient's problem started in early September when she broke her wrist. She had an ORIF on 10/11/2024. apparently there are complications with broken hardware and so she had have an open reduction external fixation As well as removal of the original hardware in late October. earlier this month the patient developed erythema and pain around the pin sites. She was given a sulfa medication. Then she developed hives and stop the sulfa. She went to the emergency room at [place] and they found low sodium and low potassium. She was given antibiotic and they transferrd her here. The patient was evaluated and admitted. She was seen by Dr. Rendon. He felt that it was not a serious infection but cultures were ordered and the patient was placed on IV antibiotics just in case. On admission labs showed a normal white count, a sodium of 126 and a potassium of 3.4. The patient was given IV fluid and Lasix and the sodium level came up a little bit. Potassium was a little yesterday but is back up today. The patient says she did have an elevated creatinine in the past 1 time but not on a chronic basis. The patient says that she had swelling often on for the last 6 months and was given furosemide at home for this but had not taken it at home for a long time. The patient also says that she has had low-sodium off and on over the last few years indeed it was only 132 back in September when she was here before. The patient was on losartan HCT , routinely given celecoxib, and p.r.n. ibuprofen before she came in this time. The patient sees a lung doctor because of shortness of breath. She does have documented sleep apnea but does not use a CPAP machine. She used to smoke heavily but recently only smokes if she drinks which is not very often. She recently had a CT scan with contrast but this was about 2 weeks ago. currently she is on vancomycin plus Zosyn for her antibiotics. Review of Systems Constitutional: Constitutional: Reports no additional constitutional complaints Eyes: Eyes: Reports no additional eye complaints ENT: Reports system reviewed and no additional complaints, except as documented Cardiovascular: Cardiovascular: Reports no additional cardiovascular complaints Respiratory: Respiratory: Reports no additional respiratory complaints Gastrointestinal: Gastrointestinal: Reports no additional gastrointestinal complaints Genitourinary: Genitourinary: Reports no additional female genitourinary complaints Musculoskeletal: Musculoskeletal: Reports no additional musculoskeletal complaints Integumentary/Breasts: Skin/Breast: Reports system reviewed and no additional complaints, except as docu Neurologic: Reports system reviewed and no additional complaints, except as documented Psychiatric: Psychiatric: Reports no additional psychiatric complaints Endocrine: Endocrine: Reports no additional endocrine complaints [facility] Past Medical History Medical History (Updated 12/22/24 @ 10:30 by Dylan Ruiz MD) 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 SHIRA (obstructive sleep apnea) Rheumatoid arthritis HTN (hypertension) Surgical History Surgical History History of bladder surgery H/O: hysterectomy Social History Social History Smoking packs per day: 0.5 Smoking cigarettes per day: 10.0 Years smoked: 15 Smoking pack-years: 7.50 Smoking status: Former smoker Tobacco type: cigarettes Smoking end date: 11/21/14 Alcohol intake: never Substance use: never Do You Feel Safe in your Home?: Yes Lack of Transportation: No Lack of Food: Never True Current Housing: I Have Housing Concerned About Future Housing: No Difficulty Paying Gas/Electric Bills: No Difficulty Paying for Meds: No Currently Unemployed: No Education: High School Diploma/GED Difficulty w/ Childcare or Family Care: No Living arrangements: alone Spiritual care concerns: No Meds Home Medications and Allergies Home Medications ?Medication ?Instructions ?Recorded ?Confirmed ?Type alprazolam 0.25 mg tablet 0.25 mg PO QID PRN anxiety 10/04/24 12/20/24 History apixaban 5 mg tablet (Eliquis) 5 mg PO DAILY 10/04/24 12/20/24 History carvedilol 25 mg tablet 25 mg PO Q12H 10/04/24 12/20/24 History celecoxib 200 mg capsule 200 mg PO BID 10/04/24 12/20/24 History digoxin 125 mcg (0.125 mg) tablet 0.125 mg PO DAILY 10/04/24 12/20/24 History diltiazem HCl 240 mg 240 mg PO DAILY 10/04/24 12/20/24 History capsule,extended release 24 hr, controlled (DILT-XR) duloxetine 60 mg capsule,delayed 60 mg PO DAILY 10/04/24 12/20/24 History release ezetimibe 10 mg tablet 10 mg PO DAILY 10/04/24 12/20/24 History isosorbide mononitrate 60 mg 60 mg PO DAILY 10/04/24 12/20/24 History tablet,extended release 24 hr levothyroxine 100 mcg tablet 100 mcg PO DAILY 10/04/24 12/20/24 History losartan 100 1 tablet PO DAILY 10/04/24 12/20/24 History mg-hydrochlorothiazide 25 mg tablet metoclopramide HCl 10 mg tablet 10 mg PO BID PRN nausea and 10/04/24 12/20/24 History vomiting omeprazole 40 mg capsule,delayed 40 mg PO DAILY 10/04/24 12/20/24 History release rosuvastatin 5 mg tablet 5 mg PO DAILY 10/04/24 12/20/24 History ibuprofen 600 mg tablet 600 mg PO TID PRN fever or pain 11/05/24 12/20/24 Rx #30 tabs albuterol sulfate 90 mcg/actuation 2 puff inhalation QID PRN 11/08/24 12/20/24 Rx aerosol inhaler shortness of breath or wheezing #6.7 grams furosemide 20 mg tablet 20 mg PO DAILY 11/08/24 12/20/24 History inhalational spacing device #1 ea 11/08/24 12/20/24 Rx (Aerochamber MV spacer) oxycodone-acetaminophen 7.5 mg-325 1 tablet PO .q6 h PRN pain #30 tabs 12/03/24 12/20/24 Rx mg tablet Allergies Allergy/AdvReac Type Severity Reaction Status Date / Time Sulfa (Sulfonamide Allergy Severe Hives Verified 12/03/24 08:22 Antibiotics) ciprofloxacin (From Cipro) Allergy Intermediate Other Verified 12/03/24 08:22 Vital Signs Vital Signs - 24 hr 12/21/24 11:37 12/21/24 12:00 12/21/24 13:44 Temperature 97.9 F Pulse Rate 76 79 Respiratory Rate 20 Blood Pressure 148/82 H Pulse Oximetry 96 Oxygen Delivery Room Air 12/21/24 16:00 12/21/24 20:00 12/21/24 20:00 Temperature Pulse Rate 75 77 Respiratory Rate Blood Pressure Pulse Oximetry Oxygen Delivery Room Air 12/21/24 20:02 12/21/24 20:05 12/22/24 00:00 Temperature 98.2 F Pulse Rate 76 78 73 Respiratory Rate 17 Blood Pressure 165/92 H Pulse Oximetry 100 Oxygen Delivery 12/22/24 04:00 12/22/24 04:57 12/22/24 08:00 Temperature 97.7 F Pulse Rate 69 78 71 Respiratory Rate 17 Blood Pressure 156/85 H Pulse Oximetry 95 Oxygen Delivery 12/22/24 08:30 12/22/24 08:33 12/22/24 08:33 Temperature Pulse Rate 78 Respiratory Rate Blood Pressure Pulse Oximetry 93 Oxygen Delivery Room Air Room Air Exam Narrative: Exam Narrative: Well developed well-nourished in no acute distress Skin is warm and dry without rash Head normocephalic atraumatic Eyes normal sclerae and conjunctivae Mouth normal lips teeth and gums Neck no nodes no thyromegaly no carotid bruits Axillae no nodes Back no CVA tenderness Lungs symmetric and clear to auscultation Heart regular rate and rhythm without rub or gallop Abdomen bowel sounds positive soft nontender, no HSM, masses, or bruits. Extremities no cyanosis, clubbing, or edema Pulses 2+ equal in radial arteries Psychological not anxious or depressed Neuro alert and oriented x3 motor 5/5 cranial nerves 2-12 intact reflexes 2+ and equal in the biceps and patellar tendons cerebellar normal rapid alternating movements Results Lab Results 12/22/24 02:55 12/22/24 02:55 Lab results: Most recent lab results Calcium 8.5 mg/dL (8.4-10.2) 12/22/24 02:55 Urine Creatinine 260.1 mg/dL 12/20/24 17:52
--- NOTE | 2024-12-22 10:41 | ECHO_ITS ---
Patient Info Name: Antoinette Da Silva Age: 64 years : 1960 Gender: Female Ht: 60 in Wt: 150 lbs BSA: 1.72 m2 HR: 78 bpm BP: 156 / 85 mmHg Heart Rhythm: Sinus Rhythm Technical Quality: Fair Exam Date: 12/22/2024 12:07 PM Exam Location: Echo Lab Patient Status: Inpatient Admit Date: 12/21/2024 Staff Ordering Physician: Dylan Ruiz MD Primary Clinician: Tanya Johnson RDCS Attending Provider: Lucina Barnhart MD Referring Physician: Sara ISRAEL; Exam Type: CA echo doppler color flow Study Info Indications - CHF, Afib Complete two-dimensional, color flow and Doppler transthoracic echocardiogram is performed. Summary 1. Complete two-dimensional, color flow and Doppler transthoracic echocardiogram is performed. 2. Left ventricular systolic function is normal, estimated at 65-70%. 3. There is mildly increased left ventricular wall thickness. 4. The left ventricular diastolic function is grade II diastolic dysfunction. 5. Left ventricular chamber dimension is mildly enlarged. 6. Left atrial chamber dimension is mildly enlarged. 7. There is mild to moderate aortic valve regurgitation. 8. There is moderate mitral valve regurgitation. 9. There is mild to moderate tricuspid valve regurgitation. 10. Moderate pulmonary hypertension, estimated pulmonary arterial systolic pressure is 46 mmHg. 11. There is mild pulmonic regurgitation. Left Ventricle Left ventricular chamber dimension is mildly enlarged. Left ventricular systolic function is normal, estimated at 65-70%. There is mildly increased left ventricular wall thickness. Left ventricular septal wall motion is normal. The left ventricular diastolic function is grade II diastolic dysfunction. Right Ventricle Right ventricular chamber dimension is normal. Right ventricular systolic function is normal. Left Atria Left atrial chamber dimension is mildly enlarged. Right Atria Right atrial chamber dimension is normal. Aortic Valve The aortic valve is trileaflet. There is mild aortic valve sclerosis. There is no aortic valve stenosis. There is mild to moderate aortic valve regurgitation. Pulmonic Valve The pulmonic valve is normal. There is no pulmonic valve stenosis. There is mild pulmonic regurgitation. Mitral Valve The mitral valve has normal leaflets. There is no mitral valve stenosis. There is moderate mitral valve regurgitation. Tricuspid Valve The tricuspid valve leaflets are normal. There is no significant tricuspid valve stenosis. There is mild to moderate tricuspid valve regurgitation. Moderate pulmonary hypertension, estimated pulmonary arterial systolic pressure is 46 mmHg. Pericardium/Pleural The pericardium appears normal. There is no pericardial effusion. Inferior Vena Cava Normal inferior vena cava with >50% collapse upon inspiration consistent with Empty right atrial pressure, 10 mmHg. Aorta The aortic root size at the sinus of Valsalva is normal. The prox ascending aorta size is normal. Left Ventricular Outflow Tract Name Value Normal LVOT 2D LVOT Diameter 2.0 cm LVOT Doppler LVOT Peak Gradient 13 mmHg LVOT Mean Gradient 7 mmHg LVOT VTI 37 cm LVOT VTI/AV VTI Ratio 0.8 LVOT Stroke Volume 113 ml LVOT CO 6.4 l/min LVOT CI 3.7 l/min/m2 Pulmonic Valve Name Value Normal RVOT Doppler RVOT Peak Gradient 2 mmHg PV Doppler PV Peak Gradient 3 mmHg Mitral Valve Name Value Normal MV Doppler MV Decel Villalba 412 cm/s2 MV PHT 90 ms MV Area (PHT) 2.5 cm2 4.0-5.0 MV Regurgitation Doppler MR Peak Gradient 163 mmHg MV Diastolic Function MV E Peak Velocity 128 cm/s MV A Peak Velocity 85 cm/s MV E/A 1.5 MV Decel Time 309 ms MV Annular TDI MV E/e' (Septal) 21.5 <=8.0 MV E/e' (Lateral) 18.1 <=8.0 MV E/e' (Average) 19.8 Tricuspid Valve Name Value Normal TV Regurgitation Doppler TR Peak Velocity 300 cm/s TR Peak Gradient 36 mmHg Estimated PAP/RSVP RA Pressure 10 mmHg <=5 PA Systolic Pressure 46 mmHg <36 RV Systolic Pressure 46 mmHg <36 Aortic Valve Name Value Normal AV Doppler AV Peak Velocity 212 cm/s AV Peak Gradient 18 mmHg AV Mean Gradient 9 mmHg AV VTI 45 cm AV Area (Cont Eq VTI) 2.5 cm2 >=3.0 AV Area (Cont Eq Wiley) 2.6 cm2 AV Regurgitation 2D LVOT Area 3.1 cm2 AV Regurgitation Doppler AR Decel Time 2,036 ms AR Decel Villalba 238 cm/s2 AR PHT 590 ms Ventricles Name Value Normal LV Dimensions 2D/MM IVS Diastolic Thickness (2D) 1.1 cm 0.6-1.0 LVID Diastole (2D) 4.4 cm 3.8-5.2 LVIW Diastolic Thickness (2D) 1.1 cm 0.6-0.9 LVID Systole (2D) 2.9 cm 2.2-3.5 LVOT Diameter 2.0 cm LV Mass (2D Cubed) 162.61 g 67.00-162.00 LV Mass Index (2D Cubed) 94 g/m2 43-95 Relative Wall Thickness (2D) 0.49 LV Fractional Shortening/Ejection Fraction 2D/MM LV Fractional Shortening (2D) 35 % 27-45 LV EF (2D Teicholz) 64 % 54-74 LV Diastolic Volume (4C MOD) 137 ml LV EF (4C MOD) 68 % LV Diastolic Volume (2C MOD) 158 ml LV EF (2C MOD) 70 % LV Diastolic Volume (BP MOD) 159 ml 46-106 LV Diastolic Volume Index (BP MOD) 92 ml/m2 29-61 LV Systolic Volume (BP MOD) 46 ml 14-42 LV Systolic Volume Index (BP MOD) 27 ml/m2 8-24 LV EF (BP MOD) 71 % 54-74 LV Diastolic Length (4C) 7.7 cm LV Systolic Length (4C) 6.7 cm LV Stroke Volume (4C MOD) 93 ml Atria Name Value Normal LA Dimensions LA Volume (4C A-L) 97 ml LA Volume (BP A-L) 125 ml RA Dimensions RA Area (4C) 20.0 cm2 <=18.0 Report Signatures
[2024-12-22 11:14] LABS: Creatinine Urine 9.2 mg/dL; Total Protein Urine Random 19 mg/dL; Ur Ttl Prot Creatinine Ratio 2.07 mg/mg (0-0.20)
[2024-12-22 19:26] LABS: Sodium 133 mmol/L (137-145)
[2024-12-22] MEDS: ALPRAZolam (*CRX) 0.25 MG TABLET PO (20:21)
[2024-12-23] VITALS (11 sets, daily range): BP systolic 136–161; BP diastolic 65–98; PULSE 64–85; RESP 16–18; TEMP 36.4–36.9; O2SAT 92–95
[2024-12-23] MEDS: PIPERACILLN/TAZ 3.375GM/NS50ML 3.375 GM/50 ML BAG IVPB ×4 (02:41→20:19)
[2024-12-23 05:03] LABS: Hemoglobin 8.4 g/dL (12.0-15.0); Mean Corpuscular Hemoglobin 25.2 pg (26-34); Mean Corpuscular Volume 84.1 fl (80-100); Mean Platelet Volume 8.7 fl (7.4-10.4); Platelet Count Result 273 k/mm3 (150-375); Red Blood Count 3.33 M/mm3 (4.2-5.4); Red Cell Distribution Width 16.9 % (11.5-14.5)
[2024-12-23 05:15] LABS: Alanine Aminotransferase 23 U/L (6-35); Albumin Level 3.3 g/dL (3.5-5.1); Alkaline Phosphatase 142 U/L (38-126); Anion Gap 7 mmol/L (4-12); Aspartate Amino Transferase 30 U/L (14-36); Bilirubin,Total 0.5 mg/dL (0.2-1.3); Blood Urea Nitrogen 9 mg/dL (7-17); Calcium 8.6 mg/dL (8.4-10.2); Carbon Dioxide 27 mmol/L (22-30); Chloride 101 mmol/L (98-107); Creatine Kinase 29 U/L (30-135); Estimated CRCL calculation 30 ml/min; Estimated Glomerular Filt Rate 35; Glucose 97 mg/dL (65-110); Phosphorus 4.7 mg/dL (2.5-4.5); Potassium 3.3 mmol/L (3.4-5.0); Sodium 135 mmol/L (137-145)
[2024-12-23] MEDS: ONDANSETRON INJ 4 MG/2 ML VIAL IV PUSH ×2 (06:05→16:48)
[2024-12-23] MEDS: LEVOTHYROXINE SODIUM 100 MCG TABLET PO (06:06)
[2024-12-23] MEDS: [UNRECOGNIZED DRUG - OTHER] XX ×3 (06:07→21:05)
[2024-12-23] MEDS: oxyCODONE/ACETAMINOPHEN (*CRX) 5-325 MG TABLET 1 TABLET PO ×3 (06:20→21:05)
[2024-12-23] MEDS: carvediloL 25 MG TABLET PO ×2 (08:37→20:18)
[2024-12-23] MEDS: PANTOPRAZOLE 40 MG TABLET PO ×2 (08:37→20:18)
[2024-12-23] MEDS: dilTIAZem HCL CD 240 MG CAP.24HR PO (08:37)
[2024-12-23] MEDS: CHOLECALCIFEROL 1,000 UNITS TABLET 1000 UNITS PO (08:37)
[2024-12-23] MEDS: ISOSORBIDE MONONITRATE 60 MG TAB.ER.24H PO (08:37)
[2024-12-23] MEDS: amLODIPine BESYLATE 5 MG TABLET PO (08:37)
[2024-12-23] MEDS: EZETIMIBE 10 MG TABLET PO (08:37)
[2024-12-23] MEDS: DIGOXIN TAB 125 MCG TABLET PO (08:37)
[2024-12-23] MEDS: DULoxetine HCL 60 MG CAPSULE.DR PO (08:37)
[2024-12-23] MEDS: ROSUVASTATIN 5 MG TABLET PO (08:39)
--- NOTE | 2024-12-23 08:56 | PM.IMPN ---
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: Qualifiers: Pathology associated with fracture: other disease Qualified Code(s): M84.633K - Pathological fracture in other disease, right radius, subsequent encounter for fracture with nonunion Code(s): M84.433K - Pathological fracture, right radius, subsequent encounter for fracture with nonunion Status: Acute (3) Closed fracture distal radius and ulna: Qualifiers: Encounter type: subsequent encounter Fracture healing: with nonunion Laterality: right Qualified Code(s): S52.501K - Unspecified fracture of the lower end of right radius, subsequent encounter for closed fracture with nonunion; S52.601K - Unspecified fracture of lower end of right ulna, subsequent encounter for closed fracture with nonunion Code(s): S52.509A - Unspecified fracture of the lower end of unspecified radius, initial encounter for closed fracture; S52.609A - Unspecified fracture of lower end of unspecified ulna, initial encounter for closed fracture Status: Acute (4) Cellulitis of right wrist: Code(s): L03.113 - Cellulitis of right upper limb Status: Acute (5) Hyponatremia: Code(s): E87.1 - Hypo-osmolality and hyponatremia Status: Acute Plan Right arm cellulitis -Fall in early September, which resulted fracture on her right wrist. -10/11/2024 the for her right wrist fracture which was comminuted, intra-articular distal radius and ulnar shaft fracture. Patient underwent open reduction internal fixation distal radius fracture, company new tired, more than 3 fragments, ulnar shaft fracture by Dr. Rendon. -Unfortunately patient underwent another surgery on 11/23/2024 because of the broken hardware and the procedure performed was open reduction internal fixation distal radius and ulnar fracture, removal of the hardware from the right wrist, external fixator application right wrist which was also performed by Dr. Rendon. -Patient reports after the she felt the pain has been infected and called the orthopedic office and she was given antibiotics unfortunately she was allergic to sulfa and ciprofloxacin. On 12/19 patient went to [facility] ED and was transferred to [facility]. - 12/19 went to [facility] ED due to right wrist pain and warmth and had evidence of hyponatremia, hypokalemia -12/20 wrist x-ray Fractures of the radius and ulna with external and internal fixation. 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 -Renal ultrasound shows no abnormalities. -CPK normal. -Increased IV fluid from 70 mL/hr at 100 mL/hr. -Nephrology on board. Atrial fibrillation Hold Eliquis due to possible surgical intervention Continue diltiazem 240 mg p.o. q.d. Continue digoxin 0.125 mg p.o. q.d. Subjective Date/time seen: 12/23/24 08:56 Interval history: Patient creatinine increased from 0.74>1.17>1.52. Renal ultrasound shows no abnormalities. CPK normal. Increased IV fluid from 70 mL/hr at 100 mL/hr. Nephrology on board. Review of Systems Review of Systems: All systems reviewed & are unremarkable except as noted in HPI and below Constitutional: Constitutional: Reports no additional constitutional complaints ENT: Reports system reviewed and no additional complaints, except as documented Cardiovascular: Cardiovascular: Reports no additional cardiovascular complaints, Denies chest pain and Reports dyspnea Respiratory: Respiratory: Reports as per HPI, Denies chest congestion, Reports cough and Reports dyspnea Musculoskeletal: Musculoskeletal: Reports no additional musculoskeletal complaints Integumentary/Breasts: Skin/Breast: Reports system reviewed and no additional complaints, except as docu Neurologic: Denies confusion Psychiatric: Psychiatric: Denies confusion Exam Const: General: healthy appearing; No in distress or confusion Orientation/consciousness: oriented to person, oriented to place, oriented to time and No confusion HENMT: Head: normal to inspection, normocephalic and atraumatic Eyes: Conjunctivae: conjunctivae normal Sclera: sclerae normal Neck: Neck: supple and nontender Resp: Effort & Inspection: normal respiratory effort and no audible wheezes Cardio: Rate: regular rate Rhythm: regular rhythm Skin: General skin exam: no rashes or lesions noted Neuro: General: oriented to person, oriented to place, oriented to time and No confusion Extrem: Right upper extremity: normal to inspection, shoulder/upper arm no tenderness and no swelling, elbow/forearm tenderness of the mid-shaft forearm, swelling of the mid-shaft forearm ( Volar aspect, moderate) anteriorly and normal ROM, wrist tenderness of the distal radius and of the dorsal wrist, swelling (moderate) of the dorsal wrist and abnormal ROM pain with active ROM during with extension and with flexion and pain with passive ROM during with extension and with flexion (Ext 30, Flex 30, Pro 40, Sup 35) and Extremity exam: right hand neuromotor exam normal, neuromotor exam abnormal wrist extension abnormal limited by pain, neurosensory exam normal radial nerve sensory function normal, ulnar nerve sensory function normal, median nerve sensory function normal and digital nerve sensory function normal, tendon exam normal of all digits and vascular exam radial pulse present and normal capillary refill Left upper extremity: normal to inspection, shoulder/upper arm no tenderness and no swelling, elbow/forearm no tenderness and no swelling, wrist normal ROM and radial pulse present 2+; no tenderness and no swelling and hand normal capillary refill, neuromotor exam normal, neurosensory exam normal Details: radial nerve sensory function normal, ulnar nerve sensory function normal, median nerve sensory function normal and digital nerve sensory function normal, vascular exam normal capillary refill and normal ROM of fingers Other: external fixator pin sites clean and dry. No erythema or drainage. Moderate swelling forearm. Neurovascular intact. Able to move all fingers and thumb. Psych: Affect: normal affect Objective Data Vital Signs Vital Signs: Vital Signs - 24 hr 12/22/24 12:00 12/22/24 14:00 12/22/24 16:00 Temperature 97.6 F Pulse Rate 63 60 65 Respiratory Rate 18 Blood Pressure 150/69 H Pulse Oximetry 96 Oxygen Delivery 12/22/24 20:00 12/22/24 20:00 12/22/24 20:14 Temperature 98.0 F Pulse Rate 63 67 Respiratory Rate 17 Blood Pressure 157/84 H Pulse Oximetry 94 Oxygen Delivery Room Air 12/22/24 20:21 12/23/24 00:00 12/23/24 04:00 Temperature Pulse Rate 72 64 71 Respiratory Rate Blood Pressure Pulse Oximetry Oxygen Delivery 12/23/24 04:32 12/23/24 08:37 12/23/24 08:37 Temperature 97.6 F Pulse Rate 72 72 72 Respiratory Rate 17 Blood Pressure 161/86 H Pulse Oximetry 93 Oxygen Delivery Intake/Output Intake/Output: Intake & Output 12/20/24 12/21/24 12/22/24 12/23/24 23:59 23:59 23:59 23:59 Intake Total 1190 3080 4072 1259.8 Output Total 3000 2550 1200 Balance 1190 80 1522 59.8 Meds/Results Medications: Active Medications Generic Name Dose Route Start Last Admin Trade Name Freq PRN Reason Stop Dose Admin Albuterol 2 puff 12/20/24 16:16 Albuterol Sulfate (*Sp) Aerosol 1 Puff INHALATION QIDRT PRN shortness of breath or wheezing Alprazolam 0.25 mg 12/20/24 16:16 12/22/24 20:21 Alprazolam (*Crx) 0.25 Mg Tablet PO 0.25 mg QID PRN Administration anxiety Amlodipine Besylate 5 mg 12/21/24 09:00 12/23/24 08:37 Amlodipine Besylate 5 Mg Tablet PO 5 mg DAILY GUME Administration Carvedilol 25 mg 12/20/24 21:00 12/23/24 08:37 Carvedilol 25 Mg Tablet PO 25 mg Q12H GUME Administration Digoxin 125 mcg 12/21/24 09:00 12/23/24 08:37 Digoxin Tab 125 Mcg Tablet PO 125 mcg DAILY GUME Administration Diltiazem HCl 240 mg 12/21/24 09:00 12/23/24 08:37 Diltiazem Hcl Cd 240 Mg Cap.24hr PO 240 mg DAILY GUME Administration Duloxetine HCl 60 mg 12/21/24 09:00 12/23/24 08:37 Duloxetine Hcl 60 Mg Capsule.Dr PO 60 mg DAILY GUME Administration Ezetimibe 10 mg 12/21/24 09:00 12/23/24 08:37 Ezetimibe 10 Mg Tablet PO 10 mg DAILY GUME Administration Piperacillin/Tazobactam/Dextrose 3.375 gm in 50 mls @ 100 mls/hr 12/20/24 15:00 12/23/24 08:37 Zosyn 3.375 Gm/Ns 50 Ml IVPB 100 mls/hr Q6H GUME Administration Sodium Chloride 1,000 mls @ 100 mls/hr 12/20/24 16:45 12/23/24 08:38 Normal Saline Iv IV CONT 100 mls/hr .Q10H GUME Infusion Isosorbide Mononitrate 60 mg 12/21/24 09:00 12/23/24 08:37 Isosorbide Mononitrate 60 Mg Tab.Er.24h PO 60 mg DAILY GUME Administration Levothyroxine Sodium 100 mcg 12/21/24 06:30 12/23/24 06:06 Levothyroxine Sodium 100 Mcg Tablet PO 100 mcg DAILY@0630 GUME Administration Morphine Sulfate 2 mg 12/20/24 11:38 12/22/24 14:17 Morphine Sulfate (*Crx) 2 Mg/Ml Inj IV PUSH 2 mg Q4H PRN Administration Pain Rated 7-10 Non-Formulary ( 0 each 12/21/24 14:00 12/23/24 06:07 Everclear Ethyl XX 01/20/25 13:59 1 each Alcohol Q8HR GUME Administration Miscellaneous Liquid ) 4 Oz Non-Formulary ( 0 each 12/21/24 13:56 Everclear Ethyl XX 01/20/25 13:55 Alcohol PRN PRN Miscellaneous Liquid EXTERNAL FIXATOR PIN CLEANING ) 4 Oz Ondansetron HCl 4 mg 12/21/24 11:06 12/23/24 06:05 Ondansetron Inj 4 Mg/2 Ml Vial IV PUSH 4 mg Q4H PRN Administration Nausea And Vomiting Oxycodone/Acetaminophen 1 tablet 12/20/24 18:25 12/23/24 06:20 Oxycodone/Acetaminophen (*Crx) 5-325 Mg Tablet PO 1 tablet Q4H PRN Administration Pain Rated 4-6 Pantoprazole Sodium 40 mg 12/21/24 09:00 12/23/24 08:37 Pantoprazole 40 Mg Tablet PO 40 mg Q12HR GUME Administration Perflutren Lipid Microsphere 0 ml 12/22/24 10:41 Perflutren Lipid Microspheres 1.5 Ml Vial Diluted To 10 Ml Total Volume IV PUSH 12/25/24 10:41 ONCE PRN adequate visualization Protocol Rosuvastatin Calcium 5 mg 12/21/24 09:00 12/23/24 08:39 Rosuvastatin 5 Mg Tablet PO 5 mg DAILY GUME Administration Vitamin D 1,000 units 12/22/24 09:00 12/23/24 08:37 Cholecalciferol 1,000 Units Tablet PO 1,000 units DAILY GUME Administration Radiology Results: ITS Impressions Forearm X-Ray 12/20/24 14:44 IMPRESSION: Fractures of the radius and ulna with external and internal fixation. Chest X-Ray 12/22/24 11:48 IMPRESSION: 1. Small bilateral pleural effusions with mild bibasilar atelectasis. Renal Ultrasound 12/22/24 19:11 IMPRESSION: Normal study. Labs Labs: Laboratory Results - last 24 hr 12/22/24 12/22/24 12/23/24 10:59 18:48 04:41 WBC 6.0 RBC 3.33 L Hgb 8.4 L Hct 28.0 L MCV 84.1 MCH 25.2 L MCHC 30.0 L RDW 16.9 H Plt Count 273 MPV 8.7 Sodium 133 L 135 L Potassium 3.3 L Chloride 101 Carbon Dioxide 27 Anion Gap 7 BUN 9 Creatinine 1.52 H Estim Creat Clear Calc 30 Estimated GFR 35 L Glucose 97 Calcium 8.6 Phosphorus 4.7 H Total Bilirubin 0.5 AST 30 ALT 23 Alkaline Phosphatase 142 H Total Creatine Kinase 29 L Total Protein 6.0 L Albumin 3.3 L Random Cortisol 20.50 U Random Total Protein 19 Urine Creatinine 9.2 Protein/Creat Ratio 2 2.07 H Hospitalist [facility] Advance Care Plan I have confirmed that the patient's Advanced Care Plan is present, code status is documented, or surrogate decision maker is listed in patient medical record.: Yes Medication Reconciliation I have utilized all available resources to obtain, update and review the patients current medications (includes all prescriptions, OTC, herbals, cannabis, and nutritional supplements).: Yes
--- NOTE | 2024-12-23 09:35 | PM.PNORT ---
Progress Note: A&P Assessment and Plan (1) Closed fracture distal radius and ulna: Qualifiers: Encounter type: subsequent encounter Fracture healing: with nonunion Laterality: right Qualified Code(s): S52.501K - Unspecified fracture of the lower end of right radius, subsequent encounter for closed fracture with nonunion; S52.601K - Unspecified fracture of lower end of right ulna, subsequent encounter for closed fracture with nonunion Code(s): S52.509A - Unspecified fracture of the lower end of unspecified radius, initial encounter for closed fracture; S52.609A - Unspecified fracture of lower end of unspecified ulna, initial encounter for closed fracture Status: Acute Assessment and Plan: Radiographs reviewed with patient which show well-maintained alignment of the fracture and no signs of loosening or complication with the external fixator. No evidence of osteomyelitis. Swelling improving. No other signs of infection. Continue with empiric antibiotics. Blood cultures negative to date. Continue edema control. Swelling and pain of forearm may be neuropathic etiology. No plans for surgery of the right forearm at this time. Plan for discharge home tomorrow if continues to show signs of improvement and medically stable. Subjective Subjective Date/Time Seen: 12/23/24 09:35 Principal diagnosis: Right radius and ulna fracture Interval history: Patient up in chair. States swelling slightly better. No other complaints or changes overnight. Exam Const: General: healthy appearing; No in distress or confusion Orientation/consciousness: oriented to person, oriented to place, oriented to time and No confusion HENMT: Head: normal to inspection, normocephalic and atraumatic Neck: Neck: supple and nontender Resp: Effort & Inspection: normal respiratory effort and no audible wheezes Neuro: General: oriented to person, oriented to place, oriented to time and No confusion Extrem: Right upper extremity: normal to inspection, shoulder/upper arm no tenderness and no swelling, elbow/forearm tenderness of the mid-shaft forearm, swelling of the mid-shaft forearm ( Volar aspect, moderate) anteriorly and normal ROM, wrist tenderness of the distal radius and of the dorsal wrist, swelling (moderate) of the dorsal wrist and abnormal ROM pain with active ROM during with extension and with flexion and pain with passive ROM during with extension and with flexion (Ext 30, Flex 30, Pro 40, Sup 35) and Extremity exam: right hand neuromotor exam normal, neuromotor exam abnormal wrist extension abnormal limited by pain, neurosensory exam normal radial nerve sensory function normal, ulnar nerve sensory function normal, median nerve sensory function normal and digital nerve sensory function normal, tendon exam normal of all digits and vascular exam radial pulse present and normal capillary refill Left upper extremity: normal to inspection, shoulder/upper arm no tenderness and no swelling, elbow/forearm no tenderness and no swelling, wrist normal ROM and radial pulse present 2+; no tenderness and no swelling and hand normal capillary refill, neuromotor exam normal, neurosensory exam normal Details: radial nerve sensory function normal, ulnar nerve sensory function normal, median nerve sensory function normal and digital nerve sensory function normal, vascular exam normal capillary refill and normal ROM of fingers Other: external fixator pin sites clean and dry. No erythema or drainage. Moderate swelling forearm-slightly improved. Neurovascular intact. Able to move all fingers and thumb. Psych: Affect: normal affect Objective Data Vital Signs Vital Signs: Vital Signs - 24 hr 12/22/24 12:00 12/22/24 14:00 12/22/24 16:00 Temperature 97.6 F Pulse Rate 63 60 65 Respiratory Rate 18 Blood Pressure 150/69 H Pulse Oximetry 96 Oxygen Delivery 12/22/24 20:00 12/22/24 20:00 12/22/24 20:14 Temperature 98.0 F Pulse Rate 63 67 Respiratory Rate 17 Blood Pressure 157/84 H Pulse Oximetry 94 Oxygen Delivery Room Air 12/22/24 20:21 12/23/24 00:00 12/23/24 04:00 Temperature Pulse Rate 72 64 71 Respiratory Rate Blood Pressure Pulse Oximetry Oxygen Delivery 12/23/24 04:32 12/23/24 08:37 12/23/24 08:37 Temperature 97.6 F Pulse Rate 72 72 72 Respiratory Rate 17 Blood Pressure 161/86 H Pulse Oximetry 93 Oxygen Delivery Intake/Output Intake/Output: Intake & Output 12/20/24 12/21/24 12/22/24 12/23/24 23:59 23:59 23:59 23:59 Intake Total 1190 3080 4072 1499.8 Output Total 3000 2550 1200 Balance 1190 80 1522 299.8 Meds/Results Medications: Active Medications Generic Name Dose Route Start Last Admin Trade Name Freq PRN Reason Stop Dose Admin Albuterol 2 puff 12/20/24 16:16 Albuterol Sulfate (*Sp) Aerosol 1 Puff INHALATION QIDRT PRN shortness of breath or wheezing Alprazolam 0.25 mg 12/20/24 16:16 12/22/24 20:21 Alprazolam (*Crx) 0.25 Mg Tablet PO 0.25 mg QID PRN Administration anxiety Amlodipine Besylate 5 mg 12/21/24 09:00 12/23/24 08:37 Amlodipine Besylate 5 Mg Tablet PO 5 mg DAILY GUME Administration Carvedilol 25 mg 12/20/24 21:00 12/23/24 08:37 Carvedilol 25 Mg Tablet PO 25 mg Q12H GUME Administration Digoxin 125 mcg 12/21/24 09:00 12/23/24 08:37 Digoxin Tab 125 Mcg Tablet PO 125 mcg DAILY GUME Administration Diltiazem HCl 240 mg 12/21/24 09:00 12/23/24 08:37 Diltiazem Hcl Cd 240 Mg Cap.24hr PO 240 mg DAILY GUME Administration Duloxetine HCl 60 mg 12/21/24 09:00 12/23/24 08:37 Duloxetine Hcl 60 Mg Capsule.Dr PO 60 mg DAILY GUME Administration Ezetimibe 10 mg 12/21/24 09:00 12/23/24 08:37 Ezetimibe 10 Mg Tablet PO 10 mg DAILY GUME Administration Piperacillin/Tazobactam/Dextrose 3.375 gm in 50 mls @ 100 mls/hr 12/20/24 15:00 12/23/24 08:37 Zosyn 3.375 Gm/Ns 50 Ml IVPB 100 mls/hr Q6H GUME Administration Sodium Chloride 1,000 mls @ 100 mls/hr 12/20/24 16:45 12/23/24 08:38 Normal Saline Iv IV CONT 100 mls/hr .Q10H GUME Infusion Isosorbide Mononitrate 60 mg 12/21/24 09:00 12/23/24 08:37 Isosorbide Mononitrate 60 Mg Tab.Er.24h PO 60 mg DAILY GUME Administration Levothyroxine Sodium 100 mcg 12/21/24 06:30 12/23/24 06:06 Levothyroxine Sodium 100 Mcg Tablet PO 100 mcg DAILY@0630 GUME Administration Morphine Sulfate 2 mg 12/20/24 11:38 12/22/24 14:17 Morphine Sulfate (*Crx) 2 Mg/Ml Inj IV PUSH 2 mg Q4H PRN Administration Pain Rated 7-10 Non-Formulary ( 0 each 12/21/24 14:00 12/23/24 06:07 Everclear Ethyl XX 01/20/25 13:59 1 each Alcohol Q8HR GUME Administration Miscellaneous Liquid ) 4 Oz Non-Formulary ( 0 each 12/21/24 13:56 Everclear Ethyl XX 01/20/25 13:55 Alcohol PRN PRN Miscellaneous Liquid EXTERNAL FIXATOR PIN CLEANING ) 4 Oz Ondansetron HCl 4 mg 12/21/24 11:06 12/23/24 06:05 Ondansetron Inj 4 Mg/2 Ml Vial IV PUSH 4 mg Q4H PRN Administration Nausea And Vomiting Oxycodone/Acetaminophen 1 tablet 12/20/24 18:25 12/23/24 06:20 Oxycodone/Acetaminophen (*Crx) 5-325 Mg Tablet PO 1 tablet Q4H PRN Administration Pain Rated 4-6 Pantoprazole Sodium 40 mg 12/21/24 09:00 12/23/24 08:37 Pantoprazole 40 Mg Tablet PO 40 mg Q12HR GUME Administration Perflutren Lipid Microsphere 0 ml 12/22/24 10:41 Perflutren Lipid Microspheres 1.5 Ml Vial Diluted To 10 Ml Total Volume IV PUSH 12/25/24 10:41 ONCE PRN adequate visualization Protocol Rosuvastatin Calcium 5 mg 12/21/24 09:00 12/23/24 08:39 Rosuvastatin 5 Mg Tablet PO 5 mg DAILY GUME Administration Vitamin D 1,000 units 12/22/24 09:00 12/23/24 08:37 Cholecalciferol 1,000 Units Tablet PO 1,000 units DAILY GUME Administration Radiology Results: ITS Impressions Forearm X-Ray 12/20/24 14:44 IMPRESSION: Fractures of the radius and ulna with external and internal fixation. Chest X-Ray 12/22/24 11:48 IMPRESSION: 1. Small bilateral pleural effusions with mild bibasilar atelectasis. Renal Ultrasound 12/22/24 19:11 IMPRESSION: Normal study. Labs Labs: Laboratory Results - last 24 hr 12/22/24 12/22/24 12/23/24 10:59 18:48 04:41 WBC 6.0 RBC 3.33 L Hgb 8.4 L Hct 28.0 L MCV 84.1 MCH 25.2 L MCHC 30.0 L RDW 16.9 H Plt Count 273 MPV 8.7 Sodium 133 L 135 L Potassium 3.3 L Chloride 101 Carbon Dioxide 27 Anion Gap 7 BUN 9 Creatinine 1.52 H Estim Creat Clear Calc 30 Estimated GFR 35 L Glucose 97 Calcium 8.6 Phosphorus 4.7 H Total Bilirubin 0.5 AST 30 ALT 23 Alkaline Phosphatase 142 H Total Creatine Kinase 29 L Total Protein 6.0 L Albumin 3.3 L Random Cortisol 20.50 U Random Total Protein 19 Urine Creatinine 9.2 Protein/Creat Ratio 2 2.07 H
--- NOTE | 2024-12-23 11:12 | P.PNNP_ITS ---
Progress Note: A&P Assessment and Plan (1) Acute kidney injury: Code(s): N17.9 - Acute kidney failure, unspecified Status: Acute Assessment and Plan: the patient has acute kidney injury. She has a baseline creatinine at around 0.6. It was 0.9 when she got here then dropped to 0.6 and Then up to 1.17 and now up to 1.52. intake/ output is positive. Patient is eating well. There are several issues that might contribute. This could be a medicine side effects from celecoxib, ibuprofen, and more recently the combination of vancomycin plus Zosyn. The vancomycin has been discontinued. The patient does not have a rash or eosinophilia but will repeat a CBC with diff tomorrow. Because the patient had pre renal azotemia but the chest x-ray shows pleural effusions, she may have some decreased heart function and pre renal azotemia. Await the echocardiogram. The patient does have protein in the urine amounting to about 2g. She may have some long-term affects between her hypertension and nonsteroidal anti- inflammatory agents. Infection could be playing a role as well. trimethoprim may have been playing a role before but have worn off by now. Her sulfa allergy could be playing a role but should be improved because her hives are gone. Dehydration may have been playing a role as well because she was on diuretics. The patient's vancomycin has been stopped. Furosemide has been stopped. She is getting some IV fluids. Will check another creatinine tomorrow. Long discussion with the patient and also with Dr. GUERRERO. (2) Hyponatremia: Code(s): E87.1 - Hypo-osmolality and hyponatremia Status: Acute Assessment and Plan: Sodium level has been on the low side off and on for a long time according to the patient. We do not have records to support this except for the 1 sodium level in September which was indeed low. Low sodium could be due to the hydrochlorothiazide that she was on as an outpatient. Her sodium level is improved to 135. Osmolality is are pending. Cortisol and TSH are okay. SPEP is pending chest x-ray shows no sign of any disorder that would cause hyponatremia. She has not had a CT of the brain. No history of active cancer if the sodium level does not continue to improve off the hydrochlorothiazide then consider CT brain completeness. (3) Hypokalemia: Code(s): E87.6 - Hypokalemia Status: Acute Assessment and Plan: This is resolved. Probably due to the Lasix. (4) Atrial fibrillation: Code(s): I48.91 - Unspecified atrial fibrillation Status: Acute Assessment and Plan: The patient has a regular heart rate today. (5) HTN (hypertension): Code(s): I10 - Essential (primary) hypertension Status: Acute Assessment and Plan: Blood pressure is a little bit high. She was just started on amlodipine May need adjustment medication tomorrow if the blood pressure is still high. (6) SHIRA (obstructive sleep apnea): Code(s): G47.33 - Obstructive sleep apnea (adult) (pediatric) Status: Acute Assessment and Plan: I recommended that she use the CPAP machine (7) Tobacco use: Code(s): Z72.0 - Tobacco use Status: Acute Assessment and Plan: patient says she is going to try to quit. She can talk with PCP about help with this but since she smokes so rarely and only if she drinks, and she said she is going to stop drinking so it will prior to be easy to stop smoking if she stops drinking. Subjective Date/time seen: 12/23/24 11:12 Interval history: patient is alert. He is eager for discharge. No chest pain or shortness of breath. Arm feels better Review of Systems Cardiovascular: Cardiovascular: Reports no additional cardiovascular complaints Respiratory: Respiratory: Reports no additional respiratory complaints Gastrointestinal: Gastrointestinal: Reports no additional gastrointestinal complaints Genitourinary: Genitourinary: Reports no additional female genitourinary complaints Exam Narrative: WDWN in NAD skin no rash head ncat lungs clear cor reg no rub abd BS+ nontender and soft ext no edema. right forearm with orthopedic device. Objective Data Vital Signs Vital Signs: Vital Signs - 24 hr 12/22/24 12:00 12/22/24 14:00 12/22/24 16:00 Temperature 97.6 F Pulse Rate 63 60 65 Respiratory Rate 18 Blood Pressure 150/69 H Pulse Oximetry 96 Oxygen Delivery 12/22/24 20:00 12/22/24 20:00 12/22/24 20:14 Temperature 98.0 F Pulse Rate 63 67 Respiratory Rate 17 Blood Pressure 157/84 H Pulse Oximetry 94 Oxygen Delivery Room Air 12/22/24 20:21 12/23/24 00:00 12/23/24 04:00 Temperature Pulse Rate 72 64 71 Respiratory Rate Blood Pressure Pulse Oximetry Oxygen Delivery 12/23/24 04:32 12/23/24 08:00 12/23/24 08:37 Temperature 97.6 F Pulse Rate 72 85 72 Respiratory Rate 17 Blood Pressure 161/86 H Pulse Oximetry 93 Oxygen Delivery 12/23/24 08:37 12/23/24 08:40 Temperature Pulse Rate 72 Respiratory Rate Blood Pressure Pulse Oximetry Oxygen Delivery Room Air Intake/Output Intake/Output: Intake & Output 12/20/24 12/21/24 12/22/24 12/23/24 23:59 23:59 23:59 23:59 Intake Total 1190 3080 4072 1499.8 Output Total 3000 2550 1200 Balance 1190 80 1522 299.8 Meds/Results Medications: Active Medications Generic Name Dose Route Start Last Admin Trade Name Freq PRN Reason Stop Dose Admin Albuterol 2 puff 12/20/24 16:16 Albuterol Sulfate (*Sp) Aerosol 1 Puff INHALATION QIDRT PRN shortness of breath or wheezing Alprazolam 0.25 mg 12/20/24 16:16 12/22/24 20:21 Alprazolam (*Crx) 0.25 Mg Tablet PO 0.25 mg QID PRN Administration anxiety Amlodipine Besylate 5 mg 12/21/24 09:00 12/23/24 08:37 Amlodipine Besylate 5 Mg Tablet PO 5 mg DAILY GUME Administration Carvedilol 25 mg 12/20/24 21:00 12/23/24 08:37 Carvedilol 25 Mg Tablet PO 25 mg Q12H GUME Administration Digoxin 125 mcg 12/21/24 09:00 12/23/24 08:37 Digoxin Tab 125 Mcg Tablet PO 125 mcg DAILY GUME Administration Diltiazem HCl 240 mg 12/21/24 09:00 12/23/24 08:37 Diltiazem Hcl Cd 240 Mg Cap.24hr PO 240 mg DAILY GUME Administration Duloxetine HCl 60 mg 12/21/24 09:00 12/23/24 08:37 Duloxetine Hcl 60 Mg Capsule.Dr PO 60 mg DAILY GUME Administration Ezetimibe 10 mg 12/21/24 09:00 12/23/24 08:37 Ezetimibe 10 Mg Tablet PO 10 mg DAILY GUME Administration Piperacillin/Tazobactam/Dextrose 3.375 gm in 50 mls @ 100 mls/hr 12/20/24 15:00 12/23/24 08:37 Zosyn 3.375 Gm/Ns 50 Ml IVPB 100 mls/hr Q6H GUME Administration Sodium Chloride 1,000 mls @ 100 mls/hr 12/20/24 16:45 12/23/24 08:38 Normal Saline Iv IV CONT 100 mls/hr .Q10H GUME Infusion Isosorbide Mononitrate 60 mg 12/21/24 09:00 12/23/24 08:37 Isosorbide Mononitrate 60 Mg Tab.Er.24h PO 60 mg DAILY GUME Administration Levothyroxine Sodium 100 mcg 12/21/24 06:30 12/23/24 06:06 Levothyroxine Sodium 100 Mcg Tablet PO 100 mcg DAILY@0630 GUME Administration Morphine Sulfate 2 mg 12/20/24 11:38 12/22/24 14:17 Morphine Sulfate (*Crx) 2 Mg/Ml Inj IV PUSH 2 mg Q4H PRN Administration Pain Rated 7-10 Non-Formulary ( 0 each 12/21/24 14:00 12/23/24 06:07 Everclear Ethyl XX 01/20/25 13:59 1 each Alcohol Q8HR GUME Administration Miscellaneous Liquid ) 4 Oz Non-Formulary ( 0 each 12/21/24 13:56 Everclear Ethyl XX 01/20/25 13:55 Alcohol PRN PRN Miscellaneous Liquid EXTERNAL FIXATOR PIN CLEANING ) 4 Oz Ondansetron HCl 4 mg 12/21/24 11:06 12/23/24 06:05 Ondansetron Inj 4 Mg/2 Ml Vial IV PUSH 4 mg Q4H PRN Administration Nausea And Vomiting Oxycodone/Acetaminophen 1 tablet 12/20/24 18:25 12/23/24 06:20 Oxycodone/Acetaminophen (*Crx) 5-325 Mg Tablet PO 1 tablet Q4H PRN Administration Pain Rated 4-6 Pantoprazole Sodium 40 mg 12/21/24 09:00 12/23/24 08:37 Pantoprazole 40 Mg Tablet PO 40 mg Q12HR GUME Administration Perflutren Lipid Microsphere 0 ml 12/22/24 10:41 Perflutren Lipid Microspheres 1.5 Ml Vial Diluted To 10 Ml Total Volume IV PUSH 12/25/24 10:41 ONCE PRN adequate visualization Protocol Rosuvastatin Calcium 5 mg 12/21/24 09:00 12/23/24 08:39 Rosuvastatin 5 Mg Tablet PO 5 mg DAILY GUME Administration Vitamin D 1,000 units 12/22/24 09:00 12/23/24 08:37 Cholecalciferol 1,000 Units Tablet PO 1,000 units DAILY GUME Administration Radiology Results: ITS Impressions Forearm X-Ray 12/20/24 14:44 IMPRESSION: Fractures of the radius and ulna with external and internal fixation. Chest X-Ray 12/22/24 11:48 IMPRESSION: 1. Small bilateral pleural effusions with mild bibasilar atelectasis. Renal Ultrasound 12/22/24 19:11 IMPRESSION: Normal study. Labs Labs: Laboratory Results - last 24 hr 12/22/24 12/22/24 12/23/24 10:59 18:48 04:41 WBC 6.0 RBC 3.33 L Hgb 8.4 L Hct 28.0 L MCV 84.1 MCH 25.2 L MCHC 30.0 L RDW 16.9 H Plt Count 273 MPV 8.7 Sodium 133 L 135 L Potassium 3.3 L Chloride 101 Carbon Dioxide 27 Anion Gap 7 BUN 9 Creatinine 1.52 H Estim Creat Clear Calc 30 Estimated GFR 35 L Glucose 97 Calcium 8.6 Phosphorus 4.7 H Total Bilirubin 0.5 AST 30 ALT 23 Alkaline Phosphatase 142 H Total Creatine Kinase 29 L Total Protein 6.0 L Albumin 3.3 L Random Cortisol 20.50 U Random Total Protein 19 Urine Creatinine 9.2 Protein/Creat Ratio 2 2.07 H
[2024-12-23] MEDS: SODIUM CHLORIDE 0.9% IV 1,000 ML 100 ML IV CONT ×2 (11:57→23:35)
[2024-12-24] VITALS (13 sets, daily range): BP systolic 145–174; BP diastolic 75–95; PULSE 69–93; RESP 16–20; TEMP 36.6–36.9; O2SAT 93–96
[2024-12-24] MEDS: oxyCODONE/ACETAMINOPHEN (*CRX) 5-325 MG TABLET 1 TABLET PO ×2 (02:01→17:32)
[2024-12-24] MEDS: ONDANSETRON INJ 4 MG/2 ML VIAL IV PUSH ×2 (02:01→17:32)
[2024-12-24 02:07] LABS: Eosinophil Urine None Seen % (None Seen); Urine Eos QC 2nd Tech Confirmed
[2024-12-24] MEDS: PIPERACILLN/TAZ 3.375GM/NS50ML 3.375 GM/50 ML BAG IVPB ×2 (03:57→08:24)
[2024-12-24] MEDS: amLODIPine BESYLATE 5 MG TABLET PO (05:08)
[2024-12-24] MEDS: LEVOTHYROXINE SODIUM 100 MCG TABLET PO (05:08)
[2024-12-24] MEDS: [UNRECOGNIZED DRUG - OTHER] XX ×3 (05:08→21:40)
[2024-12-24 05:37] LABS: Basophils Absolute Auto 0.1 K/mm3 (0.0-0.1); Basophils Percent Auto 0.8 % (0.2-1.2); Eosinophils Absolute Auto 0.1 K/mm3 (0-0.3); Eosinophils Percent Auto 2.2 % (0-4.4); Hematocrit 28.2 % (37.0-47.0); Hemoglobin 8.6 g/dL (12.0-15.0); Immature Granulocyte Absolute 0.03 K/mm3 (0.00-0.031); Immature Granulocyte Percent A 0.5 % (0-0.5); Lymphocytes Absolute Auto 0.65 K/mm3 (0.9-3.2); Lymphocytes Percent Auto 10.9 % (18.3-44.2); Mean Corpuscular HGB Conc 30.5 g/dl (32-36); Mean Corpuscular Hemoglobin 25.7 pg (26-34); Mean Corpuscular Volume 84.2 fl (80-100); Mean Platelet Volume 8.6 fl (7.4-10.4); Monocytes Absolute Auto 0.5 K/mm3 (0.1-0.6); Monocytes Percent Auto 8.4 % (2.6-8.5); Neutrophils Absolute Auto 4.6 K/mm3 (1.3-6.7); Neutrophils Percent Auto 77.2 % (45.5-73.1); Platelet Count Result 263 k/mm3 (150-375); Red Blood Count 3.35 M/mm3 (4.2-5.4); Red Cell Distribution Width 16.7 % (11.5-14.5)
[2024-12-24 05:48] LABS: Alanine Aminotransferase 21 U/L (6-35); Albumin Level 3.4 g/dL (3.5-5.1); Alkaline Phosphatase 139 U/L (38-126); Anion Gap 10 mmol/L (4-12); Aspartate Amino Transferase 27 U/L (14-36); Bilirubin,Total 0.4 mg/dL (0.2-1.3); Blood Urea Nitrogen 8 mg/dL (7-17); Calcium 8.1 mg/dL (8.4-10.2); Carbon Dioxide 25 mmol/L (22-30); Chloride 98 mmol/L (98-107); Estimated CRCL calculation 31 ml/min; Estimated Glomerular Filt Rate 36; Glucose 91 mg/dL (65-110); Phosphorus 4.7 mg/dL (2.5-4.5); Potassium 3.2 mmol/L (3.4-5.0); Sodium 133 mmol/L (137-145)
[2024-12-24] MEDS: ISOSORBIDE MONONITRATE 60 MG TAB.ER.24H PO (08:24)
[2024-12-24] MEDS: PANTOPRAZOLE 40 MG TABLET PO ×2 (08:24→20:13)
[2024-12-24] MEDS: CHOLECALCIFEROL 1,000 UNITS TABLET 1000 UNITS PO (08:24)
[2024-12-24] MEDS: dilTIAZem HCL CD 240 MG CAP.24HR PO (08:24)
[2024-12-24] MEDS: carvediloL 25 MG TABLET PO ×2 (08:24→20:13)
[2024-12-24] MEDS: EZETIMIBE 10 MG TABLET PO (08:24)
[2024-12-24] MEDS: ROSUVASTATIN 5 MG TABLET PO (08:24)
[2024-12-24] MEDS: DULoxetine HCL 60 MG CAPSULE.DR PO (08:24)
[2024-12-24] MEDS: DIGOXIN TAB 125 MCG TABLET PO (08:24)
[2024-12-24] MEDS: SODIUM CHLORIDE 0.9% IV 1,000 ML 100 ML IV CONT ×2 (09:40→21:39)
--- NOTE | 2024-12-24 09:49 | PM.PNORT ---
Progress Note: A&P Assessment and Plan (1) Closed fracture distal radius and ulna: Qualifiers: Encounter type: subsequent encounter Fracture healing: with nonunion Laterality: right Qualified Code(s): S52.501K - Unspecified fracture of the lower end of right radius, subsequent encounter for closed fracture with nonunion; S52.601K - Unspecified fracture of lower end of right ulna, subsequent encounter for closed fracture with nonunion Code(s): S52.509A - Unspecified fracture of the lower end of unspecified radius, initial encounter for closed fracture; S52.609A - Unspecified fracture of lower end of unspecified ulna, initial encounter for closed fracture Status: Acute Assessment and Plan: Radiographs reviewed with patient which show well-maintained alignment of the fracture and no signs of loosening or complication with the external fixator. No evidence of osteomyelitis. Swelling improving. No other signs of infection. Continue with empiric antibiotics. Blood cultures negative to date. Continue edema control. Swelling and pain of forearm may be neuropathic etiology. No plans for surgery of the right forearm at this time. Plan for discharge home tomorrow once medically stable. Subjective Subjective Date/Time Seen: 12/24/24 09:49 Principal diagnosis: Right radius and ulna fracture Interval history: Patient up in chair. States swelling slightly better. No other complaints or changes overnight. Review of Systems Review of Systems: All systems reviewed & are unremarkable except as noted in HPI and below Constitutional: Constitutional: Reports no additional constitutional complaints ENT: Reports system reviewed and no additional complaints, except as documented Cardiovascular: Cardiovascular: Reports no additional cardiovascular complaints, Denies chest pain and Reports dyspnea Respiratory: Respiratory: Reports as per HPI, Denies chest congestion, Reports cough and Reports dyspnea Musculoskeletal: Musculoskeletal: Reports no additional musculoskeletal complaints Integumentary/Breasts: Skin/Breast: Reports system reviewed and no additional complaints, except as docu Neurologic: Denies confusion Psychiatric: Psychiatric: Denies confusion Exam Const: General: healthy appearing; No in distress or confusion Orientation/consciousness: oriented to person, oriented to place, oriented to time and No confusion HENMT: Head: normal to inspection, normocephalic and atraumatic Neck: Neck: supple and nontender Resp: Effort & Inspection: normal respiratory effort and no audible wheezes Neuro: General: oriented to person, oriented to place, oriented to time and No confusion Extrem: Right upper extremity: normal to inspection, shoulder/upper arm no tenderness and no swelling, elbow/forearm tenderness of the mid-shaft forearm, swelling of the mid-shaft forearm ( Volar aspect, moderate) anteriorly and normal ROM, wrist tenderness of the distal radius and of the dorsal wrist, swelling (moderate) of the dorsal wrist and abnormal ROM pain with active ROM during with extension and with flexion and pain with passive ROM during with extension and with flexion (Ext 30, Flex 30, Pro 40, Sup 35) and Extremity exam: right hand neuromotor exam normal, neuromotor exam abnormal wrist extension abnormal limited by pain, neurosensory exam normal radial nerve sensory function normal, ulnar nerve sensory function normal, median nerve sensory function normal and digital nerve sensory function normal, tendon exam normal of all digits and vascular exam radial pulse present and normal capillary refill Left upper extremity: normal to inspection, shoulder/upper arm no tenderness and no swelling, elbow/forearm no tenderness and no swelling, wrist normal ROM and radial pulse present 2+; no tenderness and no swelling and hand normal capillary refill, neuromotor exam normal, neurosensory exam normal Details: radial nerve sensory function normal, ulnar nerve sensory function normal, median nerve sensory function normal and digital nerve sensory function normal, vascular exam normal capillary refill and normal ROM of fingers Other: external fixator pin sites clean and dry. No erythema or drainage. Moderate swelling forearm-slightly improved. Neurovascular intact. Able to move all fingers and thumb. Psych: Affect: normal affect Objective Data Vital Signs Vital Signs: Vital Signs - 24 hr 12/23/24 12:00 12/23/24 13:57 12/23/24 16:00 Temperature 36.9 C Pulse Rate 65 68 68 Respiratory Rate 16 Blood Pressure 136/65 Pulse Oximetry 92 Oxygen Delivery 12/23/24 20:00 12/23/24 20:15 12/23/24 20:18 Temperature Pulse Rate 70 74 Respiratory Rate Blood Pressure Pulse Oximetry Oxygen Delivery Room Air 12/23/24 20:24 12/24/24 00:04 12/24/24 04:00 Temperature 36.9 C Pulse Rate 70 71 93 Respiratory Rate 18 Blood Pressure 152/98 H Pulse Oximetry 95 Oxygen Delivery 12/24/24 05:07 12/24/24 08:00 12/24/24 08:20 Temperature 36.9 C Pulse Rate 84 79 Respiratory Rate 18 Blood Pressure 174/95 H Pulse Oximetry 93 Oxygen Delivery Room Air 12/24/24 08:24 12/24/24 08:24 Temperature Pulse Rate 84 84 Respiratory Rate Blood Pressure Pulse Oximetry Oxygen Delivery Intake/Output Intake/Output: Intake & Output 12/21/24 12/22/24 12/23/24 12/24/24 23:59 23:59 23:59 23:59 Intake Total 3080 4072 3672.0 1980 Output Total 3000 2550 3050 900 Balance 80 1522 622.0 1080 Meds/Results Medications: Active Medications Generic Name Dose Route Start Last Admin Trade Name Freq PRN Reason Stop Dose Admin Albuterol 2 puff 12/20/24 16:16 Albuterol Sulfate (*Sp) Aerosol 1 Puff INHALATION QIDRT PRN shortness of breath or wheezing Alprazolam 0.25 mg 12/20/24 16:16 12/22/24 20:21 Alprazolam (*Crx) 0.25 Mg Tablet PO 0.25 mg QID PRN Administration anxiety Amlodipine Besylate 5 mg 12/21/24 09:00 12/24/24 05:08 Amlodipine Besylate 5 Mg Tablet PO 5 mg DAILY GUME Administration Carvedilol 25 mg 12/20/24 21:00 12/24/24 08:24 Carvedilol 25 Mg Tablet PO 25 mg Q12H GUME Administration Digoxin 125 mcg 12/21/24 09:00 12/24/24 08:24 Digoxin Tab 125 Mcg Tablet PO 125 mcg DAILY GUME Administration Diltiazem HCl 240 mg 12/21/24 09:00 12/24/24 08:24 Diltiazem Hcl Cd 240 Mg Cap.24hr PO 240 mg DAILY GUME Administration Duloxetine HCl 60 mg 12/21/24 09:00 12/24/24 08:24 Duloxetine Hcl 60 Mg Capsule.Dr PO 60 mg DAILY GUME Administration Ezetimibe 10 mg 12/21/24 09:00 12/24/24 08:24 Ezetimibe 10 Mg Tablet PO 10 mg DAILY GUME Administration Piperacillin/Tazobactam/Dextrose 3.375 gm in 50 mls @ 100 mls/hr 12/20/24 15:00 12/24/24 08:54 Zosyn 3.375 Gm/Ns 50 Ml IVPB Infused Q6H GUME Infusion Sodium Chloride 1,000 mls @ 100 mls/hr 12/20/24 16:45 12/24/24 09:40 Normal Saline Iv IV CONT 100 mls/hr .Q10H GUME Administration Isosorbide Mononitrate 60 mg 12/21/24 09:00 12/24/24 08:24 Isosorbide Mononitrate 60 Mg Tab.Er.24h PO 60 mg DAILY GUME Administration Levothyroxine Sodium 100 mcg 12/21/24 06:30 12/24/24 05:08 Levothyroxine Sodium 100 Mcg Tablet PO 100 mcg DAILY@0630 GUME Administration Morphine Sulfate 2 mg 12/20/24 11:38 12/22/24 14:17 Morphine Sulfate (*Crx) 2 Mg/Ml Inj IV PUSH 2 mg Q4H PRN Administration Pain Rated 7-10 Non-Formulary ( 0 each 12/21/24 14:00 12/24/24 05:08 Everclear Ethyl XX 01/20/25 13:59 1 each Alcohol Q8HR GUME Administration Miscellaneous Liquid ) 4 Oz Non-Formulary ( 0 each 12/21/24 13:56 Everclear Ethyl XX 01/20/25 13:55 Alcohol PRN PRN Miscellaneous Liquid EXTERNAL FIXATOR PIN CLEANING ) 4 Oz Ondansetron HCl 4 mg 12/21/24 11:06 12/24/24 02:01 Ondansetron Inj 4 Mg/2 Ml Vial IV PUSH 4 mg Q4H PRN Administration Nausea And Vomiting Oxycodone/Acetaminophen 1 tablet 12/20/24 18:25 12/24/24 02:01 Oxycodone/Acetaminophen (*Crx) 5-325 Mg Tablet PO 1 tablet Q4H PRN Administration Pain Rated 4-6 Pantoprazole Sodium 40 mg 12/21/24 09:00 12/24/24 08:24 Pantoprazole 40 Mg Tablet PO 40 mg Q12HR GUME Administration Perflutren Lipid Microsphere 0 ml 12/22/24 10:41 Perflutren Lipid Microspheres 1.5 Ml Vial Diluted To 10 Ml Total Volume IV PUSH 12/25/24 10:41 ONCE PRN adequate visualization Protocol Rosuvastatin Calcium 5 mg 12/21/24 09:00 12/24/24 08:24 Rosuvastatin 5 Mg Tablet PO 5 mg DAILY GUME Administration Vitamin D 1,000 units 12/22/24 09:00 12/24/24 08:24 Cholecalciferol 1,000 Units Tablet PO 1,000 units DAILY GUME Administration Radiology Results: ITS Impressions Forearm X-Ray 12/20/24 14:44 IMPRESSION: Fractures of the radius and ulna with external and internal fixation. Chest X-Ray 12/22/24 11:48 IMPRESSION: 1. Small bilateral pleural effusions with mild bibasilar atelectasis. Renal Ultrasound 12/22/24 19:11 IMPRESSION: Normal study. Labs Labs: Laboratory Results - last 24 hr 12/24/24 12/24/24 00:37 05:17 WBC 6.0 RBC 3.35 L Hgb 8.6 L Hct 28.2 L MCV 84.2 MCH 25.7 L MCHC 30.5 L RDW 16.7 H Plt Count 263 MPV 8.6 Immature Gran % (Auto) 0.5 Neut % (Auto) 77.2 H Lymph % (Auto) 10.9 L [place] % (Auto) 8.4 Eos % (Auto) 2.2 Baso % (Auto) 0.8 Lymph # (Auto) 0.65 L [place] # (Auto) 0.5 Eos # (Auto) 0.1 Baso # (Auto) 0.1 Abs Immat Gran (auto) 0.03 Absolute Neuts (auto) 4.6 Absolute Nucleated RBC 0.000 Nucleated RBC % 0.0 Sodium 133 L Potassium 3.2 L Chloride 98 Carbon Dioxide 25 Anion Gap 10 BUN 8 Creatinine 1.46 H Estim Creat Clear Calc 31 Estimated GFR 36 L Glucose 91 Calcium 8.1 L Phosphorus 4.7 H Total Bilirubin 0.4 AST 27 ALT 21 Alkaline Phosphatase 139 H Total Protein 7.0 Albumin 3.4 L Urine Eosinophils None seen
--- NOTE | 2024-12-24 10:11 | P.PNNP_ITS ---
Progress Note: A&P Assessment and Plan (1) Acute kidney injury: Code(s): N17.9 - Acute kidney failure, unspecified Status: Acute Assessment and Plan: * slow and steady improvement noted * as noted on admission * baseline creatinine normal 0.6 - 0.9mgld * rise in creatinine noted on 12/22 & 12/23 (1.17mg/dl --> 1.52mg/dl) * evaluation to date noted: * urine electrolytes prerenal * urine eosinophils negative (and no peripheral eosinophilia) * CPK low * 2 grams of proteinuria * UA without evidence of infection * suspect insult to be multifactorial: * NSAID use? * vancomycin + zosyn? * previous bactrim use? * intravascular volume depletion (despite CXR with pleural effusions) * diuretic use * ARB use * possible underlying CKD (despite normal creatinine ) * trial of IVFs - watch volume status * follow repeat labs and UOP (2) Hyponatremia: Code(s): E87.1 - Hypo-osmolality and hyponatremia Status: Acute Assessment and Plan: * chronic issue per patient * relatively stable * evaluation noted: * TSH okay * cortisol normal * CXR without pathology other than pleural effusions * no history of malignancy * SPEP/UPEP as well as serum/urine osmolality pending * holding HCTZ * if worsens, consider CT of brain (3) Hypokalemia: Code(s): E87.6 - Hypokalemia Status: Acute Assessment and Plan: * better at this time * presumably due to diuretic therapy * replete as needed * follow magnesium * need chronic supplementation? (4) Closed fracture distal radius and ulna: Qualifiers: Encounter type: subsequent encounter Fracture healing: with nonunion L aterality: right Qualified Code(s): S52.501K - Unspecified fracture of the lower end of right radius, subsequent encounter for closed fracture with nonunion; S52.601K - Unspecified fracture of lower end of right ulna, subsequent encounter for closed fracture with nonunion Code(s): S52.509A - Unspecified fracture of the lower end of unspecified radius, initial encounter for closed fracture; S52.609A - Unspecified fracture of lower end of unspecified ulna, initial encounter for closed fracture Status: Acute Assessment and Plan: * Orthopedics following * X-ray imaging noted: * well-maintained alignment of the fracture * no signs of loosening or complication with the external fixator * no evidence of osteomyelitis * empiric antibiotics for possible cellulitis * cultures negative to date (5) Atrial fibrillation: Code(s): I48.91 - Unspecified atrial fibrillation Status: Acute Assessment and Plan: * rate control strategy * on anticoagulation (6) HTN (hypertension): Code(s): I10 - Essential (primary) hypertension Status: Acute Assessment and Plan: * elevated at this time * but off losartan and diuretics * amlodipine just started/added * follow trend of hemodynamics Will continue to follow. L Subjective Date/time seen: 12/24/24 10:11 Interval history: Follow-up for acute kidney injury/acute renal failure. Chart reviewed -- assuming care from Dr. Ruiz; renal function/creatinine doing better by recent testing; no apparent distress voiced at the time of my visit; no other issues/events overnight or earlier this morning; asking about discharge. Exam 2 Narrative: General: WD/WN female in NAD Heart: normal S1 and S2; no rub Lungs: clear to auscultation Abdomen: soft, nontender, nondistended, positive bowel sounds Extremities: no cyanosis or clubbing; no edema Skin: warm and dry; external fixation device on right forearm Objective Data Vital Signs Vital Signs: Vital Signs Temp Pulse Resp BP Pulse Ox O2 Del Method 12/24/24 08:24 84 12/24/24 08:20 Room Air 12/24/24 08:00 79 12/24/24 05:07 98.4 F 84 18 174/95 H 93 12/24/24 04:00 93 12/24/24 00:04 71 12/23/24 20:24 98.4 F 70 18 152/98 H 95 12/23/24 20:18 74 12/23/24 20:15 Room Air 12/23/24 20:00 70 12/23/24 16:00 68 12/23/24 13:57 98.5 F 68 16 136/65 92 Intake/Output Intake/Output: Intake & Output 12/21/24 12/22/24 12/23/24 12/24/24 23:59 23:59 23:59 23:59 Intake Total 3080 4072 3672.0 2530 Output Total 3000 2550 3050 1750 Balance 80 1522 622.0 780 Meds/Results Medications: Active Medications Generic Name Dose Route Start Last Admin Trade Name Freq PRN Reason Stop Dose Admin Albuterol 2 puff 12/20/24 16:16 Albuterol Sulfate (*Sp) Aerosol 1 Puff INHALATION QIDRT PRN shortness of breath or wheezing Alprazolam 0.25 mg 12/20/24 16:16 12/22/24 20:21 Alprazolam (*Crx) 0.25 Mg Tablet PO 0.25 mg QID PRN Administration anxiety Amlodipine Besylate 5 mg 12/21/24 09:00 12/24/24 05:08 Amlodipine Besylate 5 Mg Tablet PO 5 mg DAILY GUME Administration Amoxicillin/Clavulanate Potassium 1 tablet 12/24/24 12:00 12/24/24 11:26 Amoxicillin/Clavulanate K 875-125 Mg Tab PO 01/02/25 23:59 1 tablet Q12HR GUME Administration Carvedilol 25 mg 12/20/24 21:00 12/24/24 08:24 Carvedilol 25 Mg Tablet PO 25 mg Q12H GUME Administration Digoxin 125 mcg 12/21/24 09:00 12/24/24 08:24 Digoxin Tab 125 Mcg Tablet PO 125 mcg DAILY GUME Administration Diltiazem HCl 240 mg 12/21/24 09:00 12/24/24 08:24 Diltiazem Hcl Cd 240 Mg Cap.24hr PO 240 mg DAILY GUME Administration Doxycycline Hyclate 100 mg 12/24/24 11:00 12/24/24 11:26 Doxycycline Hyclate 100 Mg Tablet PO 01/02/25 23:59 100 mg Q12HR GUME Administration Duloxetine HCl 60 mg 12/21/24 09:00 12/24/24 08:24 Duloxetine Hcl 60 Mg Capsule.Dr PO 60 mg DAILY GUME Administration Ezetimibe 10 mg 12/21/24 09:00 12/24/24 08:24 Ezetimibe 10 Mg Tablet PO 10 mg DAILY GUME Administration Fluconazole 150 mg 12/24/24 12:30 Fluconazole 150 Mg Tablet PO 12/24/24 12:31 ONCE ONE Sodium Chloride 1,000 mls @ 100 mls/hr 12/20/24 16:45 12/24/24 11:25 Normal Saline Iv IV CONT Not Given .Q10H GUME Isosorbide Mononitrate 60 mg 12/21/24 09:00 12/24/24 08:24 Isosorbide Mononitrate 60 Mg Tab.Er.24h PO 60 mg DAILY GUME Administration Levothyroxine Sodium 100 mcg 12/21/24 06:30 12/24/24 05:08 Levothyroxine Sodium 100 Mcg Tablet PO 100 mcg DAILY@0630 GUME Administration Morphine Sulfate 2 mg 12/20/24 11:38 12/22/24 14:17 Morphine Sulfate (*Crx) 2 Mg/Ml Inj IV PUSH 2 mg Q4H PRN Administration Pain Rated 7-10 Non-Formulary ( 0 each 12/21/24 14:00 12/24/24 05:08 Everclear Ethyl XX 01/20/25 13:59 1 each Alcohol Q8HR GUME Administration Miscellaneous Liquid ) 4 Oz Non-Formulary ( 0 each 12/21/24 13:56 Everclear Ethyl XX 01/20/25 13:55 Alcohol PRN PRN Miscellaneous Liquid EXTERNAL FIXATOR PIN CLEANING ) 4 Oz Ondansetron HCl 4 mg 12/21/24 11:06 12/24/24 02:01 Ondansetron Inj 4 Mg/2 Ml Vial IV PUSH 4 mg Q4H PRN Administration Nausea And Vomiting Oxycodone/Acetaminophen 1 tablet 12/20/24 18:25 12/24/24 02:01 Oxycodone/Acetaminophen (*Crx) 5-325 Mg Tablet PO 1 tablet Q4H PRN Administration Pain Rated 4-6 Pantoprazole Sodium 40 mg 12/21/24 09:00 12/24/24 08:24 Pantoprazole 40 Mg Tablet PO 40 mg Q12HR GUME Administration Perflutren Lipid Microsphere 0 ml 12/22/24 10:41 Perflutren Lipid Microspheres 1.5 Ml Vial Diluted To 10 Ml Total Volume IV PUSH 12/25/24 10:41 ONCE PRN adequate visualization Protocol Rosuvastatin Calcium 5 mg 12/21/24 09:00 12/24/24 08:24 Rosuvastatin 5 Mg Tablet PO 5 mg DAILY GUME Administration Vitamin D 1,000 units 12/22/24 09:00 12/24/24 08:24 Cholecalciferol 1,000 Units Tablet PO 1,000 units DAILY GUME Administration Radiology Results: ITS Impressions Forearm X-Ray 12/20/24 14:44 IMPRESSION: Fractures of the radius and ulna with external and internal fixation. Chest X-Ray 12/22/24 11:48 IMPRESSION: 1. Small bilateral pleural effusions with mild bibasilar atelectasis. Renal Ultrasound 12/22/24 19:11 IMPRESSION: Normal study. Labs Labs: Laboratory Tests 12/24/24 05:17 12/24/24 05:17 Calcium 8.1 L Phosphorus 4.7 H Total Bilirubin 0.4 AST 27 ALT 21 Alkaline Phosphatase 139 H Total Protein 7.0 Albumin 3.4 L
--- NOTE | 2024-12-24 10:42 | P.PNIM_ITS ---
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: Qualifiers: Pathology associated with fracture: other disease Qualified Code(s): M84.633K - Pathological fracture in other disease, right radius, subsequent encounter for fracture with nonunion Code(s): M84.433K - Pathological fracture, right radius, subsequent encounter for fracture with nonunion Status: Acute (3) Closed fracture distal radius and ulna: Qualifiers: Encounter type: subsequent encounter Fracture healing: with nonunion Laterality: right Qualified Code(s): S52.501K - Unspecified fracture of the lower end of right radius, subsequent encounter for closed fracture with nonunion; S52.601K - Unspecified fracture of lower end of right ulna, subsequent encounter for closed fracture with nonunion Code(s): S52.509A - Unspecified fracture of the lower end of unspecified radius, initial encounter for closed fracture; S52.609A - Unspecified fracture of lower end of unspecified ulna, initial encounter for closed fracture Status: Acute (4) Cellulitis of right wrist: Code(s): L03.113 - Cellulitis of right upper limb Status: Acute (5) Hyponatremia: Code(s): E87.1 - Hypo-osmolality and hyponatremia Status: Acute Plan Right arm cellulitis -Fall in early September, which resulted fracture on her right wrist. -10/11/2024 the for her right wrist fracture which was comminuted, intra-artic ular distal radius and ulnar shaft fracture. Patient underwent open reduction internal fixation distal radius fracture, company new tired, more than 3 fragments, ulnar shaft fracture by Dr. Rendon. -Unfortunately patient underwent another surgery on 11/23/2024 because of the broken hardware and the procedure performed was open reduction internal fixation distal radius and ulnar fracture, removal of the hardware from the right wrist, external fixator application right wrist which was also performed by Dr. Rendon. -Patient reports after the she felt the pain has been infected and called the orthopedic office and she was given antibiotics unfortunately she was allergic to sulfa and ciprofloxacin. On 12/19 patient went to [facility] ED and was transferred to [facility]. - 12/19 went to [facility] ED due to right wrist pain and warmth and had evidence of hyponatremia, hypokalemia -12/20 wrist x-ray Fractures of the radius and ulna with external and internal fixation. 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 -Renal ultrasound shows no abnormalities. -CPK normal. -Increased IV fluid from 70 mL/hr at 100 mL/hr. -Nephrology on board. Atrial fibrillation Hold Eliquis due to possible surgical intervention Continue diltiazem 240 mg p.o. q.d. Continue digoxin 0.125 mg p.o. q.d. Subjective Date/time seen: 12/24/24 10:42 Interval history: Changed to Amox/Clav and Doxycycline. Cr is geeting better but still not at [facility] regulo. Possible discharge tomorrow if the creatinine gets better. Review of Systems Review of Systems: All systems reviewed & are unremarkable except as noted in HPI and below Constitutional: Constitutional: Reports no additional constitutional complaints ENT: Reports system reviewed and no additional complaints, except as documented Cardiovascular: Cardiovascular: Reports no additional cardiovascular complaints, Denies chest pain and Reports dyspnea Respiratory: Respiratory: Reports as per HPI, Denies chest congestion, Reports cough and Reports dyspnea Musculoskeletal: Musculoskeletal: Reports no additional musculoskeletal complaints Integumentary/Breasts: Skin/Breast: Reports system reviewed and no additional complaints, except as docu Neurologic: Denies confusion Psychiatric: Psychiatric: Denies confusion Exam Const: General: healthy appearing; No in distress or confusion Orientation/consciousness: oriented to person, oriented to place, oriented to time and No confusion HENMT: Head: normal to inspection, normocephalic and atraumatic Eyes: Conjunctivae: conjunctivae normal Sclera: sclerae normal Neck: Neck: supple and nontender Resp: Effort & Inspection: normal respiratory effort and no audible wheezes Cardio: Rate: regular rate Rhythm: regular rhythm Skin: General skin exam: no rashes or lesions noted Neuro: General: oriented to person, oriented to place, oriented to time and No confusion Extrem: Right upper extremity: normal to inspection, shoulder/upper arm no tenderness and no swelling, elbow/forearm tenderness of the mid-shaft forearm, swelling of the mid-shaft forearm ( Volar aspect, moderate) anteriorly and normal ROM, wrist tenderness of the distal radius and of the dorsal wrist, swelling (moderate) of the dorsal wrist and abnormal ROM pain with active ROM during with extension and with flexion and pain with passive ROM during with extension and with flexion (Ext 30, Flex 30, Pro 40, Sup 35) and Extremity exam: right hand neuromotor exam normal, neuromotor exam abnormal wrist extension abnormal limited by pain, neurosensory exam normal radial nerve sensory function normal, ulnar nerve sensory function normal, median nerve sensory function normal and digital nerve sensory function normal, tendon exam normal of all digits and vascular exam radial pulse present and normal capillary refill Left upper extremity: normal to inspection, shoulder/upper arm no tenderness and no swelling, elbow/forearm no tenderness and no swelling, wrist normal ROM and radial pulse present 2+; no tenderness and no swelling and hand normal capillary refill, neuromotor exam normal, neurosensory exam normal Details: radial nerve sensory function normal, ulnar nerve sensory function normal, median nerve sensory function normal and digital nerve sensory function normal, vascular exam normal capillary refill and normal ROM of fingers Other: external fixator pin sites clean and dry. No erythema or drainage. Moderate swelling forearm. Neurovascular intact. Able to move all fingers and thumb. Psych: Affect: normal affect Objective Data Vital Signs Vital Signs: Vital Signs - 24 hr 12/23/24 12:00 12/23/24 13:57 12/23/24 16:00 Temperature 98.5 F Pulse Rate 65 68 68 Respiratory Rate 16 Blood Pressure 136/65 Pulse Oximetry 92 Oxygen Delivery 12/23/24 20:00 12/23/24 20:15 12/23/24 20:18 Temperature Pulse Rate 70 74 Respiratory Rate Blood Pressure Pulse Oximetry Oxygen Delivery Room Air 12/23/24 20:24 12/24/24 00:04 12/24/24 04:00 Temperature 98.4 F Pulse Rate 70 71 93 Respiratory Rate 18 Blood Pressure 152/98 H Pulse Oximetry 95 Oxygen Delivery 12/24/24 05:07 12/24/24 08:00 12/24/24 08:20 Temperature 98.4 F Pulse Rate 84 79 Respiratory Rate 18 Blood Pressure 174/95 H Pulse Oximetry 93 Oxygen Delivery Room Air 12/24/24 08:24 12/24/24 08:24 Temperature Pulse Rate 84 84 Respiratory Rate Blood Pressure Pulse Oximetry Oxygen Delivery Intake/Output Intake/Output: Intake & Output 12/21/24 12/22/24 12/23/24 12/24/24 23:59 23:59 23:59 23:59 Intake Total 3080 4072 3672.0 1980 Output Total 3000 2550 3050 900 Balance 80 1522 622.0 1080 Meds/Results Medications: Active Medications Generic Name Dose Route Start Last Admin Trade Name Freq PRN Reason Stop Dose Admin Albuterol 2 puff 12/20/24 16:16 Albuterol Sulfate (*Sp) Aerosol 1 Puff INHALATION QIDRT PRN shortness of breath or wheezing Alprazolam 0.25 mg 12/20/24 16:16 12/22/24 20:21 Alprazolam (*Crx) 0.25 Mg Tablet PO 0.25 mg QID PRN Administration anxiety Amlodipine Besylate 5 mg 12/21/24 09:00 12/24/24 05:08 Amlodipine Besylate 5 Mg Tablet PO 5 mg DAILY GUME Administration Amoxicillin/Clavulanate Potassium 1 tablet 12/24/24 12:00 Amoxicillin/Clavulanate K 875-125 Mg Tab PO 01/02/25 23:59 Q12HR GUME Carvedilol 25 mg 12/20/24 21:00 12/24/24 08:24 Carvedilol 25 Mg Tablet PO 25 mg Q12H GUME Administration Digoxin 125 mcg 12/21/24 09:00 12/24/24 08:24 Digoxin Tab 125 Mcg Tablet PO 125 mcg DAILY GUME Administration Diltiazem HCl 240 mg 12/21/24 09:00 12/24/24 08:24 Diltiazem Hcl Cd 240 Mg Cap.24hr PO 240 mg DAILY GUME Administration Doxycycline Hyclate 100 mg 12/24/24 11:00 Doxycycline Hyclate 100 Mg Tablet PO 01/02/25 23:59 Q12HR GUME Duloxetine HCl 60 mg 12/21/24 09:00 12/24/24 08:24 Duloxetine Hcl 60 Mg Capsule.Dr PO 60 mg DAILY GUME Administration Ezetimibe 10 mg 12/21/24 09:00 12/24/24 08:24 Ezetimibe 10 Mg Tablet PO 10 mg DAILY GUME Administration Sodium Chloride 1,000 mls @ 100 mls/hr 12/20/24 16:45 12/24/24 09:40 Normal Saline Iv IV CONT 100 mls/hr .Q10H GUME Administration Isosorbide Mononitrate 60 mg 12/21/24 09:00 12/24/24 08:24 Isosorbide Mononitrate 60 Mg Tab.Er.24h PO 60 mg DAILY GUME Administration Levothyroxine Sodium 100 mcg 12/21/24 06:30 12/24/24 05:08 Levothyroxine Sodium 100 Mcg Tablet PO 100 mcg DAILY@0630 GUME Administration Morphine Sulfate 2 mg 12/20/24 11:38 12/22/24 14:17 Morphine Sulfate (*Crx) 2 Mg/Ml Inj IV PUSH 2 mg Q4H PRN Administration Pain Rated 7-10 Non-Formulary ( 0 each 12/21/24 14:00 12/24/24 05:08 Everclear Ethyl XX 01/20/25 13:59 1 each Alcohol Q8HR GUME Administration Miscellaneous Liquid ) 4 Oz Non-Formulary ( 0 each 12/21/24 13:56 Everclear Ethyl XX 01/20/25 13:55 Alcohol PRN PRN Miscellaneous Liquid EXTERNAL FIXATOR PIN CLEANING ) 4 Oz Ondansetron HCl 4 mg 12/21/24 11:06 12/24/24 02:01 Ondansetron Inj 4 Mg/2 Ml Vial IV PUSH 4 mg Q4H PRN Administration Nausea And Vomiting Oxycodone/Acetaminophen 1 tablet 12/20/24 18:25 12/24/24 02:01 Oxycodone/Acetaminophen (*Crx) 5-325 Mg Tablet PO 1 tablet Q4H PRN Administration Pain Rated 4-6 Pantoprazole Sodium 40 mg 12/21/24 09:00 12/24/24 08:24 Pantoprazole 40 Mg Tablet PO 40 mg Q12HR GUME Administration Perflutren Lipid Microsphere 0 ml 12/22/24 10:41 Perflutren Lipid Microspheres 1.5 Ml Vial Diluted To 10 Ml Total Volume IV PUSH 12/25/24 10:41 ONCE PRN adequate visualization Protocol Rosuvastatin Calcium 5 mg 12/21/24 09:00 12/24/24 08:24 Rosuvastatin 5 Mg Tablet PO 5 mg DAILY GUME Administration Vitamin D 1,000 units 12/22/24 09:00 12/24/24 08:24 Cholecalciferol 1,000 Units Tablet PO 1,000 units DAILY GUME Administration Radiology Results: ITS Impressions Forearm X-Ray 12/20/24 14:44 IMPRESSION: Fractures of the radius and ulna with external and internal fixation. Chest X-Ray 12/22/24 11:48 IMPRESSION: 1. Small bilateral pleural effusions with mild bibasilar atelectasis. Renal Ultrasound 12/22/24 19:11 IMPRESSION: Normal study. Labs Labs: Laboratory Results - last 24 hr 12/24/24 12/24/24 00:37 05:17 WBC 6.0 RBC 3.35 L Hgb 8.6 L Hct 28.2 L MCV 84.2 MCH 25.7 L MCHC 30.5 L RDW 16.7 H Plt Count 263 MPV 8.6 Immature Gran % (Auto) 0.5 Neut % (Auto) 77.2 H Lymph % (Auto) 10.9 L [place] % (Auto) 8.4 Eos % (Auto) 2.2 Baso % (Auto) 0.8 Lymph # (Auto) 0.65 L [place] # (Auto) 0.5 Eos # (Auto) 0.1 Baso # (Auto) 0.1 Abs Immat Gran (auto) 0.03 Absolute Neuts (auto) 4.6 Absolute Nucleated RBC 0.000 Nucleated RBC % 0.0 Sodium 133 L Potassium 3.2 L Chloride 98 Carbon Dioxide 25 Anion Gap 10 BUN 8 Creatinine 1.46 H Estim Creat Clear Calc 31 Estimated GFR 36 L Glucose 91 Calcium 8.1 L Phosphorus 4.7 H Total Bilirubin 0.4 AST 27 ALT 21 Alkaline Phosphatase 139 H Total Protein 7.0 Albumin 3.4 L Urine Eosinophils None seen Hospitalist MIPS Advance Care Plan I have confirmed that the patient's Advanced Care Plan is present, code status is documented, or surrogate decision maker is listed in patient medical record.: Yes Medication Reconciliation I have utilized all available resources to obtain, update and review the patients current medications (includes all prescriptions, OTC, herbals, cannabis, and nutritional supplements).: Yes
[2024-12-24] MEDS: DOXYCYCLINE HYCLATE 100 MG TABLET PO ×2 (11:26→20:14)
[2024-12-24] MEDS: AMOXICILLIN/CLAVULANATE K 875-125 MG TAB 1 TABLET PO ×2 (11:26→20:13)
[2024-12-24] MEDS: FLUCONAZOLE 150 MG TABLET PO (12:36)
[2024-12-24 13:08] LABS: Add Urine Microscopic? YES; Appearance Urine Clear (Clear); Bacteria Urine None Seen /hpf; Bilirubin Urine Negative (Negative); Blood Urine Negative (Negative); Color Urine Yellow (Yellow); Glucose Urine UA Negative (Negative); Ketones Urine Negative (Negative); Leukocyte Esterase Ur Trace LEU/UL (Negative); Nitrate Urine Negative (Negative); Non Pathogenic Casts 0-2; Protein Urine Negative (Negative); RBC Urine 0-2 /hpf (0-2); Specific Grav Ur 1.009 (1.001-1.035); Squamous Epithelial Cell Urine None Seen /hpf (Few); Urobilinogen Urine 0.2 mg/dL (<2.0); WBC Urine 0-5 /hpf (0-3); pH Urine 5.5 (5.0-9.0)
[2024-12-24 14:23] LABS: Protein, Total 5.8 g/dL (6.1-8.1)
[2024-12-25] VITALS (11 sets, daily range): BP systolic 125–181; BP diastolic 80–94; PULSE 71–84; RESP 12–16; TEMP 36.6–37.3; O2SAT 95–100
[2024-12-25 02:44] LABS: Creatinine, Random Urine 28 mg/dL (20-275); Total Prot/Creat ratio mg/mg 0.179 (0.024-0.184); Total Protein/Creatinine Ratio 179 mg/g creat (24-184)
[2024-12-25] MEDS: ONDANSETRON INJ 4 MG/2 ML VIAL IV PUSH ×2 (05:04→20:07)
[2024-12-25] MEDS: oxyCODONE/ACETAMINOPHEN (*CRX) 5-325 MG TABLET 1 TABLET PO (05:04)
[2024-12-25] MEDS: [UNRECOGNIZED DRUG - OTHER] XX ×3 (05:04→21:43)
[2024-12-25 05:29] LABS: Basophils Percent Auto 0.5 % (0.2-1.2); Eosinophils Absolute Auto 0.1 K/mm3 (0-0.3); Eosinophils Percent Auto 1.5 % (0-4.4); Hemoglobin 8.7 g/dL (12.0-15.0); Immature Granulocyte Absolute 0.03 K/mm3 (0.00-0.031); Immature Granulocyte Percent A 0.5 % (0-0.5); Lymphocytes Percent Auto 10.2 % (18.3-44.2); Mean Corpuscular HGB Conc 31.1 g/dl (32-36); Mean Corpuscular Hemoglobin 25.9 pg (26-34); Mean Corpuscular Volume 83.3 fl (80-100); Mean Platelet Volume 8.8 fl (7.4-10.4); Monocytes Absolute Auto 0.5 K/mm3 (0.1-0.6); Monocytes Percent Auto 7.8 % (2.6-8.5); Neutrophils Absolute Auto 4.7 K/mm3 (1.3-6.7); Neutrophils Percent Auto 79.5 % (45.5-73.1); Platelet Count Result 270 k/mm3 (150-375); Red Blood Count 3.36 M/mm3 (4.2-5.4); Red Cell Distribution Width 16.7 % (11.5-14.5); White Blood Count 5.9 K/mm3 (4.5-10.0)
[2024-12-25 05:44] LABS: Albumin Level 3.5 g/dL (3.5-5.1); Anion Gap 10 mmol/L (4-12); Blood Urea Nitrogen 8 mg/dL (7-17); Calcium 8.1 mg/dL (8.4-10.2); Carbon Dioxide 26 mmol/L (22-30); Chloride 99 mmol/L (98-107); Estimated CRCL calculation 37 ml/min; Estimated Glomerular Filt Rate 45; Glucose 96 mg/dL (65-110); Phosphorus 3.7 mg/dL (2.5-4.5); Potassium 2.7 mmol/L (3.4-5.0); Sodium 135 mmol/L (137-145)
[2024-12-25] MEDS: LEVOTHYROXINE SODIUM 100 MCG TABLET PO (06:03)
[2024-12-25] MEDS: amLODIPine BESYLATE 5 MG TABLET PO (06:21)
[2024-12-25] MEDS: POTASSIUM CHLORIDE 20 MEQ ER TABLET 40 MEQ PO ×2 (06:21→21:37)
[2024-12-25 06:32] LABS: Magnesium 0.9 mg/dL (1.6-2.3)
[2024-12-25] MEDS: ROSUVASTATIN 5 MG TABLET PO (08:09)
[2024-12-25] MEDS: EZETIMIBE 10 MG TABLET PO (08:09)
[2024-12-25] MEDS: CHOLECALCIFEROL 1,000 UNITS TABLET 1000 UNITS PO (08:09)
[2024-12-25] MEDS: DULoxetine HCL 60 MG CAPSULE.DR PO (08:09)
[2024-12-25] MEDS: PANTOPRAZOLE 40 MG TABLET PO ×2 (08:09→21:38)
[2024-12-25] MEDS: AMOXICILLIN/CLAVULANATE K 875-125 MG TAB 1 TABLET PO ×2 (08:09→21:38)
[2024-12-25] MEDS: DOXYCYCLINE HYCLATE 100 MG TABLET PO ×2 (08:09→21:38)
[2024-12-25] MEDS: dilTIAZem HCL CD 240 MG CAP.24HR PO (08:09)
[2024-12-25] MEDS: carvediloL 25 MG TABLET PO ×2 (08:09→21:38)
[2024-12-25] MEDS: DIGOXIN TAB 125 MCG TABLET PO (08:09)
[2024-12-25] MEDS: ISOSORBIDE MONONITRATE 60 MG TAB.ER.24H PO (08:09)
[2024-12-25] MEDS: SODIUM CHLORIDE 0.9% IV 1,000 ML 100 ML IV CONT ×2 (08:10→23:35)
--- NOTE | 2024-12-25 09:22 | PM.PNORT ---
Progress Note: A&P Assessment and Plan (1) Closed fracture distal radius and ulna: Qualifiers: Encounter type: subsequent encounter Fracture healing: with nonunion Laterality: right Qualified Code(s): S52.501K - Unspecified fracture of the lower end of right radius, subsequent encounter for closed fracture with nonunion; S52.601K - Unspecified fracture of lower end of right ulna, subsequent encounter for closed fracture with nonunion Code(s): S52.509A - Unspecified fracture of the lower end of unspecified radius, initial encounter for closed fracture; S52.609A - Unspecified fracture of lower end of unspecified ulna, initial encounter for closed fracture Status: Acute Assessment and Plan: Radiographs reviewed with patient which show well-maintained alignment of the fracture and no signs of loosening or complication with the external fixator. No evidence of osteomyelitis. Swelling improving. No other signs of infection. Continue with empiric antibiotics. Blood cultures negative to date. Continue edema control. Swelling and pain of forearm may be neuropathic etiology. No plans for surgery of the right forearm at this time. Plan for discharge home once medically stable. (2) Hyponatremia: Code(s): E87.1 - Hypo-osmolality and hyponatremia Status: Acute Assessment and Plan: Hospitalist following/treating (3) Hypokalemia: Code(s): E87.6 - Hypokalemia Status: Acute Assessment and Plan: Hospitalist following/treating Plan Reviewed history, exam, radiographs and current labs with attending MD and covering surgeon, Dr. Rendon, who agrees with current plan as indicated above. No further recommendations from Dr. Rendon at this time. Subjective Subjective Date/Time Seen: 12/25/24 09:22 Principal diagnosis: Right radius and ulna fracture Interval history: Patient up in chair. States swelling slightly better. No other complaints or changes overnight. Review of Systems Review of Systems: All systems reviewed & are unremarkable except as noted in HPI and below Constitutional: Constitutional: Reports no additional constitutional complaints ENT: Reports system reviewed and no additional complaints, except as documented Cardiovascular: Cardiovascular: Reports no additional cardiovascular complaints, Denies chest pain and Reports dyspnea Respiratory: Respiratory: Reports as per HPI, Denies chest congestion, Reports cough and Reports dyspnea Musculoskeletal: Musculoskeletal: Reports no additional musculoskeletal complaints Integumentary/Breasts: Skin/Breast: Reports system reviewed and no additional complaints, except as docu Neurologic: Denies confusion Psychiatric: Psychiatric: Denies confusion Exam Const: General: healthy appearing; No in distress or confusion Orientation/consciousness: oriented to person, oriented to place, oriented to time and No confusion HENMT: Head: normal to inspection, normocephalic and atraumatic Neck: Neck: supple and nontender Resp: Effort & Inspection: normal respiratory effort and no audible wheezes Neuro: General: oriented to person, oriented to place, oriented to time and No confusion Extrem: Right upper extremity: normal to inspection, shoulder/upper arm no tenderness and no swelling, elbow/forearm tenderness of the mid-shaft forearm, swelling of the mid-shaft forearm ( Volar aspect, moderate) anteriorly and normal ROM, wrist tenderness of the distal radius and of the dorsal wrist, swelling (moderate) of the dorsal wrist and abnormal ROM pain with active ROM during with extension and with flexion and pain with passive ROM during with extension and with flexion (Ext 30, Flex 30, Pro 40, Sup 35) and Extremity exam: right hand neuromotor exam normal, neuromotor exam abnormal wrist extension abnormal limited by pain, neurosensory exam normal radial nerve sensory function normal, ulnar nerve sensory function normal, median nerve sensory function normal and digital nerve sensory function normal, tendon exam normal of all digits and vascular exam radial pulse present and normal capillary refill Left upper extremity: normal to inspection, shoulder/upper arm no tenderness and no swelling, elbow/forearm no tenderness and no swelling, wrist normal ROM and radial pulse present 2+; no tenderness and no swelling and hand normal capillary refill, neuromotor exam normal, neurosensory exam normal Details: radial nerve sensory function normal, ulnar nerve sensory function normal, median nerve sensory function normal and digital nerve sensory function normal, vascular exam normal capillary refill and normal ROM of fingers Other: external fixator pin sites clean and dry. No erythema or drainage. Moderate swelling forearm-slightly improved. Neurovascular intact. Able to move all fingers and thumb. Psych: Affect: normal affect Objective Data Vital Signs Vital Signs: Vital Signs - 24 hr 12/24/24 12:00 12/24/24 14:00 12/24/24 16:00 Temperature 36.6 C Pulse Rate 78 69 76 Respiratory Rate 16 Blood Pressure 145/75 H Pulse Oximetry 95 Oxygen Delivery Fraction of Inspired Oxygen 12/24/24 20:00 12/24/24 20:13 12/24/24 20:15 Temperature Pulse Rate 82 69 70 Respiratory Rate 16 Blood Pressure Pulse Oximetry 96 Oxygen Delivery Room Air Fraction of Inspired Oxygen 21 12/24/24 20:16 12/24/24 21:19 12/25/24 00:04 Temperature 36.6 C Pulse Rate 84 70 76 Respiratory Rate 20 16 Blood Pressure 147/88 H Pulse Oximetry 94 96 Oxygen Delivery Room Air Fraction of Inspired Oxygen 21 12/25/24 04:00 12/25/24 05:56 12/25/24 08:00 Temperature 36.6 C Pulse Rate 83 84 77 Respiratory Rate 16 Blood Pressure 181/94 H Pulse Oximetry 95 Oxygen Delivery Fraction of Inspired Oxygen 12/25/24 08:09 12/25/24 08:09 12/25/24 08:10 Temperature Pulse Rate 81 81 Respiratory Rate Blood Pressure Pulse Oximetry Oxygen Delivery Room Air Fraction of Inspired Oxygen Intake/Output Intake/Output: Intake & Output 12/22/24 12/23/24 12/24/24 12/25/24 23:59 23:59 23:59 23:59 Intake Total 4072 3672.0 4550 1650 Output Total 2550 3050 2353 1900 Balance 1522 622.0 2197 -250 Meds/Results Medications: Active Medications Generic Name Dose Route Start Last Admin Trade Name Freq PRN Reason Stop Dose Admin Albuterol 2 puff 12/20/24 16:16 Albuterol Sulfate (*Sp) Aerosol 1 Puff INHALATION QIDRT PRN shortness of breath or wheezing Alprazolam 0.25 mg 12/20/24 16:16 12/22/24 20:21 Alprazolam (*Crx) 0.25 Mg Tablet PO 0.25 mg QID PRN Administration anxiety Amlodipine Besylate 5 mg 12/21/24 09:00 12/25/24 06:21 Amlodipine Besylate 5 Mg Tablet PO 5 mg DAILY GUME Administration Amoxicillin/Clavulanate Potassium 1 tablet 12/24/24 12:00 12/25/24 08:09 Amoxicillin/Clavulanate K 875-125 Mg Tab PO 01/02/25 23:59 1 tablet Q12HR GUME Administration Carvedilol 25 mg 12/20/24 21:00 12/25/24 08:09 Carvedilol 25 Mg Tablet PO 25 mg Q12H GUME Administration Digoxin 125 mcg 12/21/24 09:00 12/25/24 08:09 Digoxin Tab 125 Mcg Tablet PO 125 mcg DAILY GUME Administration Diltiazem HCl 240 mg 12/21/24 09:00 12/25/24 08:09 Diltiazem Hcl Cd 240 Mg Cap.24hr PO 240 mg DAILY GUME Administration Doxycycline Hyclate 100 mg 12/24/24 11:00 12/25/24 08:09 Doxycycline Hyclate 100 Mg Tablet PO 01/02/25 23:59 100 mg Q12HR GUME Administration Duloxetine HCl 60 mg 12/21/24 09:00 12/25/24 08:09 Duloxetine Hcl 60 Mg Capsule.Dr PO 60 mg DAILY GUME Administration Ezetimibe 10 mg 12/21/24 09:00 12/25/24 08:09 Ezetimibe 10 Mg Tablet PO 10 mg DAILY GUME Administration Sodium Chloride 1,000 mls @ 100 mls/hr 12/20/24 16:45 12/25/24 08:10 Normal Saline Iv IV CONT 100 mls/hr .Q10H GUME Administration Isosorbide Mononitrate 60 mg 12/21/24 09:00 12/25/24 08:09 Isosorbide Mononitrate 60 Mg Tab.Er.24h PO 60 mg DAILY GUME Administration Levothyroxine Sodium 100 mcg 12/21/24 06:30 12/25/24 06:03 Levothyroxine Sodium 100 Mcg Tablet PO 100 mcg DAILY@0630 GUME Administration Morphine Sulfate 2 mg 12/20/24 11:38 12/22/24 14:17 Morphine Sulfate (*Crx) 2 Mg/Ml Inj IV PUSH 2 mg Q4H PRN Administration Pain Rated 7-10 Non-Formulary ( 0 each 12/21/24 14:00 12/25/24 05:04 Everclear Ethyl XX 01/20/25 13:59 1 each Alcohol Q8HR GUME Administration Miscellaneous Liquid ) 4 Oz Non-Formulary ( 0 each 12/21/24 13:56 Everclear Ethyl XX 01/20/25 13:55 Alcohol PRN PRN Miscellaneous Liquid EXTERNAL FIXATOR PIN CLEANING ) 4 Oz Ondansetron HCl 4 mg 12/21/24 11:06 12/25/24 05:04 Ondansetron Inj 4 Mg/2 Ml Vial IV PUSH 4 mg Q4H PRN Administration Nausea And Vomiting Oxycodone/Acetaminophen 1 tablet 12/20/24 18:25 12/25/24 05:04 Oxycodone/Acetaminophen (*Crx) 5-325 Mg Tablet PO 1 tablet Q4H PRN Administration Pain Rated 4-6 Pantoprazole Sodium 40 mg 12/21/24 09:00 12/25/24 08:09 Pantoprazole 40 Mg Tablet PO 40 mg Q12HR GUME Administration Perflutren Lipid Microsphere 0 ml 12/22/24 10:41 Perflutren Lipid Microspheres 1.5 Ml Vial Diluted To 10 Ml Total Volume IV PUSH 12/25/24 10:41 ONCE PRN adequate visualization Protocol Rosuvastatin Calcium 5 mg 12/21/24 09:00 12/25/24 08:09 Rosuvastatin 5 Mg Tablet PO 5 mg DAILY GUME Administration Vitamin D 1,000 units 12/22/24 09:00 12/25/24 08:09 Cholecalciferol 1,000 Units Tablet PO 1,000 units DAILY GUME Administration Radiology Results: ITS Impressions Forearm X-Ray 12/20/24 14:44 IMPRESSION: Fractures of the radius and ulna with external and internal fixation. Chest X-Ray 12/22/24 11:48 IMPRESSION: 1. Small bilateral pleural effusions with mild bibasilar atelectasis. Renal Ultrasound 12/22/24 19:11 IMPRESSION: Normal study. Labs Labs: Laboratory Results - last 24 hr 12/23/24 12/24/24 12/24/24 04:41 00:37 12:38 WBC RBC Hgb Hct MCV MCH MCHC RDW Plt Count MPV Immature Gran % (Auto) Neut % (Auto) Lymph % (Auto) [place] % (Auto) Eos % (Auto) Baso % (Auto) Lymph # (Auto) [place] # (Auto) Eos # (Auto) Baso # (Auto) Abs Immat Gran (auto) Absolute Neuts (auto) Absolute Nucleated RBC Nucleated RBC % Sodium Potassium Chloride Carbon Dioxide Anion Gap BUN Creatinine Estim Creat Clear Calc Estimated GFR Glucose Calcium Phosphorus Magnesium Total Protein 5.8 L Albumin Urine Color Yellow Urine Appearance Clear Urine pH 5.5 Ur Specific [place] 1.009 Urine Protein Negative Urine Glucose (UA) Negative Urine Ketones Negative Ur Blood (Man) Negative Urine Nitrate Negative Urine Bilirubin Negative Urine Urobilinogen 0.2 Leukocyte Esterase Rfl Trace H Urine RBC 0-2 Urine WBC 0-5 Ur Squamous Epith Cells None seen Urine Bacteria None seen Urine Casts 0-2 Ur Random Creatinine 28 U Random Total Protein 5 Protein/Creatinin Ratio 179 12/25/24 12/25/24 04:55 04:58 WBC 5.9 RBC 3.36 L Hgb 8.7 L Hct 28.0 L MCV 83.3 MCH 25.9 L MCHC 31.1 L RDW 16.7 H Plt Count 270 MPV 8.8 Immature Gran % (Auto) 0.5 Neut % (Auto) 79.5 H Lymph % (Auto) 10.2 L [place] % (Auto) 7.8 Eos % (Auto) 1.5 Baso % (Auto) 0.5 Lymph # (Auto) 0.60 L [place] # (Auto) 0.5 Eos # (Auto) 0.1 Baso # (Auto) 0.0 Abs Immat Gran (auto) 0.03 Absolute Neuts (auto) 4.7 Absolute Nucleated RBC 0.000 Nucleated RBC % 0.0 Sodium 135 L Potassium 2.7 L* Chloride 99 Carbon Dioxide 26 Anion Gap 10 BUN 8 Creatinine 1.21 H Estim Creat Clear Calc 37 Estimated GFR 45 L Glucose 96 Calcium 8.1 L Phosphorus 3.7 Magnesium 0.9 L Total Protein Albumin 3.5 Urine Color Urine Appearance Urine pH Ur Specific [place] Urine Protein Urine Glucose (UA) Urine Ketones Ur Blood (Man) Urine Nitrate Urine Bilirubin Urine Urobilinogen Leukocyte Esterase Rfl Urine RBC Urine WBC Ur Squamous Epith Cells Urine Bacteria Urine Casts Ur Random Creatinine U Random Total Protein Protein/Creatinin Ratio
--- NOTE | 2024-12-25 09:35 | P.PNNP_ITS ---
Progress Note: A&P Assessment and Plan (1) Acute kidney injury: Code(s): N17.9 - Acute kidney failure, unspecified Status: Acute Assessment and Plan: * slow and steady improvement noted * as noted on admission * baseline creatinine normal 0.6 - 0.9mgld * rise in creatinine noted on 12/22 & 12/23 (1.17mg/dl --> 1.52mg/dl) * evaluation to date noted: * urine electrolytes prerenal * urine eosinophils negative (and no peripheral eosinophilia) * CPK low * 2 grams of proteinuria * UA without evidence of infection * suspect insult to be multifactorial: * NSAID use? * vancomycin + zosyn? * previous bactrim use? * intravascular volume depletion (despite CXR with pleural effusions) * diuretic use * ARB use * possible underlying CKD (despite normal creatinine ) * on IVFs - watch volume status * follow repeat labs and UOP (2) Hyponatremia: Code(s): E87.1 - Hypo-osmolality and hyponatremia Status: Acute Assessment and Plan: * chronic issue per patient * relatively stable * evaluation noted: * TSH okay * cortisol normal * CXR without pathology other than pleural effusions * no history of malignancy * SPEP/UPEP as well as serum/urine osmolality pending * holding HCTZ * if worsens, consider CT of brain (3) Hypokalemia: Code(s): E87.6 - Hypokalemia Status: Acute Assessment and Plan: * better at this time * presumably due to diuretic therapy * replete as needed * follow magnesium * need chronic supplementation? (4) Closed fracture distal radius and ulna: Qualifiers: Encounter type: subsequent encounter Fracture healing: with nonunion L aterality: right Qualified Code(s): S52.501K - Unspecified fracture of the lower end of right radius, subsequent encounter for closed fracture with nonunion; S52.601K - Unspecified fracture of lower end of right ulna, subsequent encounter for closed fracture with nonunion Code(s): S52.509A - Unspecified fracture of the lower end of unspecified radius, initial encounter for closed fracture; S52.609A - Unspecified fracture of lower end of unspecified ulna, initial encounter for closed fracture Status: Acute Assessment and Plan: * Orthopedics following * X-ray imaging noted: * well-maintained alignment of the fracture * no signs of loosening or complication with the external fixator * no evidence of osteomyelitis * empiric antibiotics for possible cellulitis * cultures negative to date (5) Atrial fibrillation: Code(s): I48.91 - Unspecified atrial fibrillation Status: Acute Assessment and Plan: * rate control strategy * on anticoagulation (6) HTN (hypertension): Code(s): I10 - Essential (primary) hypertension Status: Acute Assessment and Plan: * elevated at this time * but off losartan and diuretics * amlodipine just started/added * follow trend of hemodynamics Not opposed to discharge from renal perspective if otherwise medically stable. Will continue to follow. L Subjective Date/time seen: 12/25/24 09:35 Interval history: Follow-up for acute kidney injury/acute renal failure. No apparent distress noted at the time of my visit; feels reasonably well when seen; renal function/creatinine continues to improve with current therapy/interventions; no other issues/events overnight or earlier this morning; K+ and magnesium low this morning so being replaced; asking about potential discharge today. Exam 2 Narrative: General: WD/WN female in NAD Heart: normal S1 and S2; no rub Lungs: clear to auscultation Abdomen: soft, nontender, nondistended, positive bowel sounds Extremities: no cyanosis or clubbing; no edema Skin: warm and intact; external fixation device on right forearm Objective Data Vital Signs Vital Signs: Vital Signs Temp Pulse Resp BP Pulse Ox O2 Del Method FiO2 12/25/24 08:10 Room Air 12/25/24 08:09 81 12/25/24 08:09 81 12/25/24 08:00 77 12/25/24 05:56 97.8 F 84 16 181/94 H 95 12/25/24 04:00 83 12/25/24 00:04 76 12/24/24 21:19 97.8 F 70 16 147/88 H 96 12/24/24 20:16 84 20 94 Room Air 21 12/24/24 20:15 70 16 96 Room Air 21 12/24/24 20:13 69 12/24/24 20:00 82 12/24/24 16:00 76 12/24/24 14:00 97.8 F 69 16 145/75 H 95 Intake/Output Intake/Output: Intake & Output 12/22/24 12/23/24 12/24/2429/25 23:59 23:59 23:59 23:59 Intake Total 4072 3672.0 4550 1980 Output Total 2550 3050 2353 1900 Balance 1522 622.0 2197 80 Meds/Results Medications: Active Medications Generic Name Dose Route Start Last Admin Trade Name Freq PRN Reason Stop Dose Admin Albuterol 2 puff 12/20/24 16:16 Albuterol Sulfate (*Sp) Aerosol 1 Puff INHALATION QIDRT PRN shortness of breath or wheezing Alprazolam 0.25 mg 12/20/24 16:16 12/22/24 20:21 Alprazolam (*Crx) 0.25 Mg Tablet PO 0.25 mg QID PRN Administration anxiety Amlodipine Besylate 5 mg 12/21/24 09:00 12/25/24 06:21 Amlodipine Besylate 5 Mg Tablet PO 5 mg DAILY GUME Administration Amoxicillin/Clavulanate Potassium 1 tablet 12/24/24 12:00 12/25/24 08:09 Amoxicillin/Clavulanate K 875-125 Mg Tab PO 01/02/25 23:59 1 tablet Q12HR GUME Administration Carvedilol 25 mg 12/20/24 21:00 12/25/24 08:09 Carvedilol 25 Mg Tablet PO 25 mg Q12H GUME Administration Digoxin 125 mcg 12/21/24 09:00 12/25/24 08:09 Digoxin Tab 125 Mcg Tablet PO 125 mcg DAILY GUME Administration Diltiazem HCl 240 mg 12/21/24 09:00 12/25/24 08:09 Diltiazem Hcl Cd 240 Mg Cap.24hr PO 240 mg DAILY GUME Administration Doxycycline Hyclate 100 mg 12/24/24 11:00 12/25/24 08:09 Doxycycline Hyclate 100 Mg Tablet PO 01/02/25 23:59 100 mg Q12HR GUME Administration Duloxetine HCl 60 mg 12/21/24 09:00 12/25/24 08:09 Duloxetine Hcl 60 Mg Capsule.Dr PO 60 mg DAILY GUME Administration Ezetimibe 10 mg 12/21/24 09:00 12/25/24 08:09 Ezetimibe 10 Mg Tablet PO 10 mg DAILY GUME Administration Sodium Chloride 1,000 mls @ 100 mls/hr 12/20/24 16:45 12/25/24 08:10 Normal Saline Iv IV CONT 100 mls/hr .Q10H GUME Administration Isosorbide Mononitrate 60 mg 12/21/24 09:00 12/25/24 08:09 Isosorbide Mononitrate 60 Mg Tab.Er.24h PO 60 mg DAILY GUME Administration Levothyroxine Sodium 100 mcg 12/21/24 06:30 12/25/24 06:03 Levothyroxine Sodium 100 Mcg Tablet PO 100 mcg DAILY@0630 GUME Administration Morphine Sulfate 2 mg 12/20/24 11:38 12/22/24 14:17 Morphine Sulfate (*Crx) 2 Mg/Ml Inj IV PUSH 2 mg Q4H PRN Administration Pain Rated 7-10 Non-Formulary ( 0 each 12/21/24 14:00 12/25/24 05:04 Everclear Ethyl XX 01/20/25 13:59 1 each Alcohol Q8HR GUME Administration Miscellaneous Liquid ) 4 Oz Non-Formulary ( 0 each 12/21/24 13:56 Everclear Ethyl XX 01/20/25 13:55 Alcohol PRN PRN Miscellaneous Liquid EXTERNAL FIXATOR PIN CLEANING ) 4 Oz Ondansetron HCl 4 mg 12/21/24 11:06 12/25/24 05:04 Ondansetron Inj 4 Mg/2 Ml Vial IV PUSH 4 mg Q4H PRN Administration Nausea And Vomiting Oxycodone/Acetaminophen 1 tablet 12/20/24 18:25 12/25/24 05:04 Oxycodone/Acetaminophen (*Crx) 5-325 Mg Tablet PO 1 tablet Q4H PRN Administration Pain Rated 4-6 Pantoprazole Sodium 40 mg 12/21/24 09:00 12/25/24 08:09 Pantoprazole 40 Mg Tablet PO 40 mg Q12HR GUME Administration Rosuvastatin Calcium 5 mg 12/21/24 09:00 12/25/24 08:09 Rosuvastatin 5 Mg Tablet PO 5 mg DAILY GUME Administration Vitamin D 1,000 units 12/22/24 09:00 12/25/24 08:09 Cholecalciferol 1,000 Units Tablet PO 1,000 units DAILY GUME Administration Radiology Results: ITS Impressions Forearm X-Ray 12/20/24 14:44 IMPRESSION: Fractures of the radius and ulna with external and internal fixation. Chest X-Ray 12/22/24 11:48 IMPRESSION: 1. Small bilateral pleural effusions with mild bibasilar atelectasis. Renal Ultrasound 12/22/24 19:11 IMPRESSION: Normal study. Labs Labs: Laboratory Tests 12/25/24 04:58 12/25/24 04:58 Sodium 135 L Potassium 2.7 L* Chloride 99 Carbon Dioxide 26 BUN 8 Creatinine 1.21 H Estimated GFR 45 L Glucose 96 Calcium 8.1 L Phosphorus 3.7 Magnesium 0.9 L Albumin 3.5
[2024-12-25] MEDS: MAGNESIUM SULF 2 GM/WATER 50ML 2 GM/50 ML BAG IVPB ×2 (10:02→13:51)
[2024-12-25 11:08] LABS: Potassium 3.3 mmol/L (3.4-5.0)
[2024-12-25 11:12] LABS: Magnesium 1.2 mg/dL (1.6-2.3)
[2024-12-25 11:22] LABS: Iron 22 ug/dL (37-170)
[2024-12-25 11:32] LABS: Percent Iron Saturation 8 % (20-50)
[2024-12-25 12:27] LABS: Osmolality, Urine 132 mOsm/kg (50-1200)
--- NOTE | 2024-12-25 14:55 | PM.IMPN ---
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: Qualifiers: Pathology associated with fracture: other disease Qualified Code(s): M84.633K - Pathological fracture in other disease, right radius, subsequent encounter for fracture with nonunion Code(s): M84.433K - Pathological fracture, right radius, subsequent encounter for fracture with nonunion Status: Acute (3) Closed fracture distal radius and ulna: Qualifiers: Encounter type: subsequent encounter Fracture healing: with nonunion Laterality: right Qualified Code(s): S52.501K - Unspecified fracture of the lower end of right radius, subsequent encounter for closed fracture with nonunion; S52.601K - Unspecified fracture of lower end of right ulna, subsequent encounter for closed fracture with nonunion Code(s): S52.509A - Unspecified fracture of the lower end of unspecified radius, initial encounter for closed fracture; S52.609A - Unspecified fracture of lower end of unspecified ulna, initial encounter for closed fracture Status: Acute (4) Cellulitis of right wrist: Code(s): L03.113 - Cellulitis of right upper limb Status: Acute (5) Hyponatremia: Code(s): E87.1 - Hypo-osmolality and hyponatremia Status: Acute Plan Right arm cellulitis -Fall in early September, which resulted fracture on her right wrist. -10/11/2024 the for her right wrist fracture which was comminuted, intra-articular distal radius and ulnar shaft fracture. Patient underwent open reduction internal fixation distal radius fracture, company new tired, more than 3 fragments, ulnar shaft fracture by Dr. Rendon. -Unfortunately patient underwent another surgery on 11/23/2024 because of the broken hardware and the procedure performed was open reduction internal fixation distal radius and ulnar fracture, removal of the hardware from the right wrist, external fixator application right wrist which was also performed by Dr. Rendon. -Patient reports after the she felt the pain has been infected and called the orthopedic office and she was given antibiotics unfortunately she was allergic to sulfa and ciprofloxacin. On 12/19 patient went to [facility] ED and was transferred to [facility]. - 12/19 went to [facility] ED due to right wrist pain and warmth and had evidence of hyponatremia, hypokalemia -12/20 wrist x-ray Fractures of the radius and ulna with external and internal fixation. 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 -Renal ultrasound shows no abnormalities. -CPK normal. -Increased IV fluid from 70 mL/hr at 100 mL/hr. -Nephrology on board. resolved Atrial fibrillation Hold Eliquis due to possible surgical intervention Continue diltiazem 240 mg p.o. q.d. Continue digoxin 0.125 mg p.o. q.d. Hypokalemia and hypomagnesemia K 2.7 and Mg 0.9 today replacing and close monitoring DVT prophylaxis on Lovenox Subjective Date/time seen: 12/25/24 14:55 Interval history: patient comfortable at bedside Potassium is 2.7 and Mag 0.9 this morning will replace and monitor Review of Systems Review of Systems: All systems reviewed & are unremarkable except as noted in HPI and below Constitutional: Constitutional: Reports no additional constitutional complaints ENT: Reports system reviewed and no additional complaints, except as documented Cardiovascular: Cardiovascular: Reports no additional cardiovascular complaints, Denies chest pain and Reports dyspnea Respiratory: Respiratory: Reports as per HPI, Denies chest congestion, Reports cough and Reports dyspnea Musculoskeletal: Musculoskeletal: Reports no additional musculoskeletal complaints Integumentary/Breasts: Skin/Breast: Reports system reviewed and no additional complaints, except as docu Neurologic: Denies confusion Psychiatric: Psychiatric: Denies confusion Exam Const: General: healthy appearing; No in distress or confusion Orientation/consciousness: oriented to person, oriented to place, oriented to time and No confusion HENMT: Head: normal to inspection, normocephalic and atraumatic Eyes: Conjunctivae: conjunctivae normal Sclera: sclerae normal Neck: Neck: supple and nontender Resp: Effort & Inspection: normal respiratory effort and no audible wheezes Cardio: Rate: regular rate Rhythm: regular rhythm Skin: General skin exam: no rashes or lesions noted Neuro: General: oriented to person, oriented to place, oriented to time and No confusion Extrem: Right upper extremity: normal to inspection, shoulder/upper arm no tenderness and no swelling, elbow/forearm tenderness of the mid-shaft forearm, swelling of the mid-shaft forearm ( Volar aspect, moderate) anteriorly and normal ROM, wrist tenderness of the distal radius and of the dorsal wrist, swelling (moderate) of the dorsal wrist and abnormal ROM pain with active ROM during with extension and with flexion and pain with passive ROM during with extension and with flexion (Ext 30, Flex 30, Pro 40, Sup 35) and Extremity exam: right hand neuromotor exam normal, neuromotor exam abnormal wrist extension abnormal limited by pain, neurosensory exam normal radial nerve sensory function normal, ulnar nerve sensory function normal, median nerve sensory function normal and digital nerve sensory function normal, tendon exam normal of all digits and vascular exam radial pulse present and normal capillary refill Left upper extremity: normal to inspection, shoulder/upper arm no tenderness and no swelling, elbow/forearm no tenderness and no swelling, wrist normal ROM and radial pulse present 2+; no tenderness and no swelling and hand normal capillary refill, neuromotor exam normal, neurosensory exam normal Details: radial nerve sensory function normal, ulnar nerve sensory function normal, median nerve sensory function normal and digital nerve sensory function normal, vascular exam normal capillary refill and normal ROM of fingers Other: external fixator pin sites clean and dry. No erythema or drainage. Moderate swelling forearm. Neurovascular intact. Able to move all fingers and thumb. Psych: Affect: normal affect Objective Data Vital Signs Vital Signs: Vital Signs - 24 hr 12/24/24 16:00 12/24/24 20:00 12/24/24 20:13 Temperature Pulse Rate 76 82 69 Respiratory Rate Blood Pressure Pulse Oximetry Oxygen Delivery Fraction of Inspired Oxygen 12/24/24 20:15 12/24/24 20:16 12/24/24 21:19 Temperature 97.8 F Pulse Rate 70 84 70 Respiratory Rate 16 20 16 Blood Pressure 147/88 H Pulse Oximetry 96 94 96 Oxygen Delivery Room Air Room Air Fraction of Inspired Oxygen 21 21 12/25/24 00:04 12/25/24 04:00 12/25/24 05:56 Temperature 97.8 F Pulse Rate 76 83 84 Respiratory Rate 16 Blood Pressure 181/94 H Pulse Oximetry 95 Oxygen Delivery Fraction of Inspired Oxygen 12/25/24 08:00 12/25/24 08:09 12/25/24 08:09 Temperature Pulse Rate 77 81 81 Respiratory Rate Blood Pressure Pulse Oximetry Oxygen Delivery Fraction of Inspired Oxygen 12/25/24 08:10 12/25/24 12:00 Temperature Pulse Rate 71 Respiratory Rate Blood Pressure Pulse Oximetry Oxygen Delivery Room Air Fraction of Inspired Oxygen Intake/Output Intake/Output: Intake & Output 12/22/24 12/23/24 12/24/24 12/25/24 23:59 23:59 23:59 23:59 Intake Total 4072 3672.0 4550 1980 Output Total 2550 3050 2353 2900 Balance 1522 622.0 2197 920 Meds/Results Medications: Active Medications Generic Name Dose Route Start Last Admin Trade Name Freq PRN Reason Stop Dose Admin Albuterol 2 puff 12/20/24 16:16 Albuterol Sulfate (*Sp) Aerosol 1 Puff INHALATION QIDRT PRN shortness of breath or wheezing Alprazolam 0.25 mg 12/20/24 16:16 12/22/24 20:21 Alprazolam (*Crx) 0.25 Mg Tablet PO 0.25 mg QID PRN Administration anxiety Amlodipine Besylate 5 mg 12/21/24 09:00 12/25/24 06:21 Amlodipine Besylate 5 Mg Tablet PO 5 mg DAILY GUME Administration Amoxicillin/Clavulanate Potassium 1 tablet 12/24/24 12:00 12/25/24 08:09 Amoxicillin/Clavulanate K 875-125 Mg Tab PO 01/02/25 23:59 1 tablet Q12HR GUME Administration Carvedilol 25 mg 12/20/24 21:00 12/25/24 08:09 Carvedilol 25 Mg Tablet PO 25 mg Q12H GUME Administration Digoxin 125 mcg 12/21/24 09:00 12/25/24 08:09 Digoxin Tab 125 Mcg Tablet PO 125 mcg DAILY GUME Administration Diltiazem HCl 240 mg 12/21/24 09:00 12/25/24 08:09 Diltiazem Hcl Cd 240 Mg Cap.24hr PO 240 mg DAILY GUME Administration Doxycycline Hyclate 100 mg 12/24/24 11:00 12/25/24 08:09 Doxycycline Hyclate 100 Mg Tablet PO 01/02/25 23:59 100 mg Q12HR GUME Administration Duloxetine HCl 60 mg 12/21/24 09:00 12/25/24 08:09 Duloxetine Hcl 60 Mg Capsule.Dr PO 60 mg DAILY GUME Administration Ezetimibe 10 mg 12/21/24 09:00 12/25/24 08:09 Ezetimibe 10 Mg Tablet PO 10 mg DAILY GUME Administration Sodium Chloride 1,000 mls @ 100 mls/hr 12/20/24 16:45 12/25/24 08:10 Normal Saline Iv IV CONT 100 mls/hr .Q10H GUME Administration Isosorbide Mononitrate 60 mg 12/21/24 09:00 12/25/24 08:09 Isosorbide Mononitrate 60 Mg Tab.Er.24h PO 60 mg DAILY GUME Administration Levothyroxine Sodium 100 mcg 12/21/24 06:30 12/25/24 06:03 Levothyroxine Sodium 100 Mcg Tablet PO 100 mcg DAILY@0630 GUME Administration Morphine Sulfate 2 mg 12/20/24 11:38 12/22/24 14:17 Morphine Sulfate (*Crx) 2 Mg/Ml Inj IV PUSH 2 mg Q4H PRN Administration Pain Rated 7-10 Non-Formulary ( 0 each 12/21/24 14:00 12/25/24 13:51 Everclear Ethyl XX 01/20/25 13:59 1 each Alcohol Q8HR GUME Administration Miscellaneous Liquid ) 4 Oz Non-Formulary ( 0 each 12/21/24 13:56 Everclear Ethyl XX 01/20/25 13:55 Alcohol PRN PRN Miscellaneous Liquid EXTERNAL FIXATOR PIN CLEANING ) 4 Oz Ondansetron HCl 4 mg 12/21/24 11:06 12/25/24 05:04 Ondansetron Inj 4 Mg/2 Ml Vial IV PUSH 4 mg Q4H PRN Administration Nausea And Vomiting Oxycodone/Acetaminophen 1 tablet 12/20/24 18:25 12/25/24 05:04 Oxycodone/Acetaminophen (*Crx) 5-325 Mg Tablet PO 1 tablet Q4H PRN Administration Pain Rated 4-6 Pantoprazole Sodium 40 mg 12/21/24 09:00 12/25/24 08:09 Pantoprazole 40 Mg Tablet PO 40 mg Q12HR GUME Administration Rosuvastatin Calcium 5 mg 12/21/24 09:00 12/25/24 08:09 Rosuvastatin 5 Mg Tablet PO 5 mg DAILY GUME Administration Vitamin D 1,000 units 12/22/24 09:00 12/25/24 08:09 Cholecalciferol 1,000 Units Tablet PO 1,000 units DAILY GUME Administration Radiology Results: ITS Impressions Forearm X-Ray 12/20/24 14:44 IMPRESSION: Fractures of the radius and ulna with external and internal fixation. Chest X-Ray 12/22/24 11:48 IMPRESSION: 1. Small bilateral pleural effusions with mild bibasilar atelectasis. Renal Ultrasound 12/22/24 19:11 IMPRESSION: Normal study. Labs Labs: Laboratory Results - last 24 hr 12/22/24 12/23/24 12/24/24 10:59 04:41 00:37 WBC RBC Hgb Hct MCV MCH MCHC RDW Plt Count MPV Immature Gran % (Auto) Neut % (Auto) Lymph % (Auto) [place] % (Auto) Eos % (Auto) Baso % (Auto) Lymph # (Auto) [place] # (Auto) Eos # (Auto) Baso # (Auto) Abs Immat Gran (auto) Absolute Neuts (auto) Absolute Nucleated RBC Nucleated RBC % Sodium Potassium Chloride Carbon Dioxide Anion Gap BUN Creatinine Estim Creat Clear Calc Estimated GFR Glucose Serum Osmolality 292 Calcium Phosphorus Magnesium Iron TIBC % Saturation Ferritin Albumin Urine Osmolality 132 Ur Random Creatinine 28 U Random Total Protein 5 Protein/Creatinin Ratio 179 12/25/24 12/25/24 12/25/24 04:55 04:58 10:56 WBC 5.9 RBC 3.36 L Hgb 8.7 L Hct 28.0 L MCV 83.3 MCH 25.9 L MCHC 31.1 L RDW 16.7 H Plt Count 270 MPV 8.8 Immature Gran % (Auto) 0.5 Neut % (Auto) 79.5 H Lymph % (Auto) 10.2 L [place] % (Auto) 7.8 Eos % (Auto) 1.5 Baso % (Auto) 0.5 Lymph # (Auto) 0.60 L [place] # (Auto) 0.5 Eos # (Auto) 0.1 Baso # (Auto) 0.0 Abs Immat Gran (auto) 0.03 Absolute Neuts (auto) 4.7 Absolute Nucleated RBC 0.000 Nucleated RBC % 0.0 Sodium 135 L Potassium 2.7 L* 3.3 L Chloride 99 Carbon Dioxide 26 Anion Gap 10 BUN 8 Creatinine 1.21 H Estim Creat Clear Calc 37 Estimated GFR 45 L Glucose 96 Serum Osmolality Calcium 8.1 L Phosphorus 3.7 Magnesium 0.9 L 1.2 L Iron 22 L TIBC 292 % Saturation 8 L Ferritin 22.30 Albumin 3.5 Urine Osmolality Ur Random Creatinine U Random Total Protein Protein/Creatinin Ratio
[2024-12-25 19:44] LABS: Anion Gap 6 mmol/L (4-12); Blood Urea Nitrogen 6 mg/dL (7-17); Calcium 8.3 mg/dL (8.4-10.2); Carbon Dioxide 28 mmol/L (22-30); Chloride 98 mmol/L (98-107); Estimated CRCL calculation 40 ml/min; Estimated Glomerular Filt Rate 49; Glucose 108 mg/dL (65-110); Sodium 132 mmol/L (137-145)
[2024-12-25] MEDS: MORPHINE SULFATE (*CRX) 2 MG/ML INJ IV PUSH (20:07)
[2024-12-25] MEDS: ALPRAZolam (*CRX) 0.25 MG TABLET PO (23:40)
[2024-12-26] VITALS (8 sets, daily range): BP systolic 147–167; BP diastolic 78–82; PULSE 73–90; RESP 16; TEMP 36.8; O2SAT 95–100
[2024-12-26] MEDS: [UNRECOGNIZED DRUG - OTHER] XX ×2 (05:33→13:17)
[2024-12-26] MEDS: LEVOTHYROXINE SODIUM 100 MCG TABLET PO (05:33)
[2024-12-26] MEDS: oxyCODONE/ACETAMINOPHEN (*CRX) 5-325 MG TABLET 1 TABLET PO (05:40)
[2024-12-26] MEDS: ONDANSETRON INJ 4 MG/2 ML VIAL IV PUSH (05:41)
[2024-12-26 06:17] LABS: Basophils Absolute Auto 0.1 K/mm3 (0.0-0.1); Basophils Percent Auto 0.9 % (0.2-1.2); Eosinophils Absolute Auto 0.1 K/mm3 (0-0.3); Eosinophils Percent Auto 1.7 % (0-4.4); Hematocrit 27.9 % (37.0-47.0); Hemoglobin 8.7 g/dL (12.0-15.0); Immature Granulocyte Absolute 0.03 K/mm3 (0.00-0.031); Immature Granulocyte Percent A 0.6 % (0-0.5); Lymphocytes Absolute Auto 0.67 K/mm3 (0.9-3.2); Lymphocytes Percent Auto 12.3 % (18.3-44.2); Mean Corpuscular HGB Conc 31.2 g/dl (32-36); Mean Corpuscular Hemoglobin 25.8 pg (26-34); Mean Corpuscular Volume 82.8 fl (80-100); Mean Platelet Volume 8.7 fl (7.4-10.4); Monocytes Absolute Auto 0.6 K/mm3 (0.1-0.6); Monocytes Percent Auto 10.1 % (2.6-8.5); Neutrophils Absolute Auto 4.1 K/mm3 (1.3-6.7); Neutrophils Percent Auto 74.4 % (45.5-73.1); Platelet Count Result 276 k/mm3 (150-375); Red Blood Count 3.37 M/mm3 (4.2-5.4); Red Cell Distribution Width 16.7 % (11.5-14.5); White Blood Count 5.4 K/mm3 (4.5-10.0)
[2024-12-26 06:32] LABS: Albumin Level 3.5 g/dL (3.5-5.1); Anion Gap 9 mmol/L (4-12); Blood Urea Nitrogen 5 mg/dL (7-17); Calcium 8.5 mg/dL (8.4-10.2); Carbon Dioxide 26 mmol/L (22-30); Chloride 99 mmol/L (98-107); Estimated CRCL calculation 46 ml/min; Estimated Glomerular Filt Rate 58; Glucose 92 mg/dL (65-110); Phosphorus 3.5 mg/dL (2.5-4.5); Potassium 3.1 mmol/L (3.4-5.0); Sodium 134 mmol/L (137-145)
[2024-12-26 06:35] LABS: Alanine Aminotransferase 20 U/L (6-35); Albumin Level 3.5 g/dL (3.5-5.1); Alkaline Phosphatase 348 U/L (38-126); Anion Gap 8 mmol/L (4-12); Aspartate Amino Transferase 27 U/L (14-36); Bilirubin,Total 0.3 mg/dL (0.2-1.3); Blood Urea Nitrogen 5 mg/dL (7-17); Calcium 8.6 mg/dL (8.4-10.2); Carbon Dioxide 28 mmol/L (22-30); Chloride 99 mmol/L (98-107); Estimated CRCL calculation 46 ml/min; Estimated Glomerular Filt Rate 58; Glucose 93 mg/dL (65-110); Magnesium 1.6 mg/dL (1.6-2.3); Potassium 3.2 mmol/L (3.4-5.0); Sodium 135 mmol/L (137-145)
[2024-12-26] MEDS: PANTOPRAZOLE 40 MG TABLET PO (08:18)
[2024-12-26] MEDS: DOXYCYCLINE HYCLATE 100 MG TABLET PO (08:18)
[2024-12-26] MEDS: MAGNESIUM SULF 2 GM/WATER 50ML 2 GM/50 ML BAG IVPB (08:18)
[2024-12-26] MEDS: carvediloL 25 MG TABLET PO (08:18)
[2024-12-26] MEDS: DULoxetine HCL 60 MG CAPSULE.DR PO (08:18)
[2024-12-26] MEDS: AMOXICILLIN/CLAVULANATE K 875-125 MG TAB 1 TABLET PO (08:18)
[2024-12-26] MEDS: CHOLECALCIFEROL 1,000 UNITS TABLET 1000 UNITS PO (08:19)
[2024-12-26] MEDS: DIGOXIN TAB 125 MCG TABLET PO (08:19)
[2024-12-26] MEDS: ISOSORBIDE MONONITRATE 60 MG TAB.ER.24H PO (08:19)
[2024-12-26] MEDS: EZETIMIBE 10 MG TABLET PO (08:19)
[2024-12-26] MEDS: dilTIAZem HCL CD 240 MG CAP.24HR PO (08:19)
[2024-12-26] MEDS: ROSUVASTATIN 5 MG TABLET PO (08:19)
[2024-12-26] MEDS: amLODIPine BESYLATE 5 MG TABLET PO (08:19)
[2024-12-26] MEDS: POTASSIUM CHLORIDE 20 MEQ ER TABLET 40 MEQ PO (08:19)
[2024-12-26 08:39] LABS: Albumin 2.8 g/dL (3.8-4.8); Alpha 1 Globulin 0.5 g/dL (0.2-0.3); Alpha 2 Globulin 0.8 g/dL (0.5-0.9); Beta 1 Globulin 0.4 g/dL (0.4-0.6); Gamma Globulin 0.9 g/dL (0.8-1.7)
[2024-12-26] MEDS: POTASSIUM CHLORIDE 20 MEQ ER TABLET PO (10:48)
[2024-12-26] MEDS: IRON SUCROSE COMPLEX 400 MG, IRON SUCROSE COMPLEX 100 MG in SODIUM CHLORIDE 0.9% IV 250 ML 78.57 MG IVPB (10:48)
--- NOTE | 2024-12-26 12:02 | P.DS_ITS ---
DS: Admitting Diagnosis Discharge Date 12/26/24 Admitting Diagnosis Right wrist cellulitis DS: Discharge Diagnosis Discharge Diagnosis (1) Cellulitis of right wrist: Code(s): L03.113 - Cellulitis of right upper limb Status: Acute (2) Hypokalemia: Code(s): E87.6 - Hypokalemia Status: Acute (3) Acute kidney injury: Code(s): N17.9 - Acute kidney failure, unspecified Status: Acute DS: Summary Hospital Course Hospital Course: Patient is a 64-year-old woman with a past medical history of rheumatoid arthritis, osteopenia, fibromyalgia, persistent atrial fibrillation on Eliquis 5 mg p.o. b.i.d., digoxin, diltiazem presented from [facility] direct transfer to [place] for orthopedic evaluation. As per patient she is independent and had a fall in early September, which resulted fracture on her right wrist. Patient was operated on 10/11/2024 the for her right wrist fracture which was comminuted, intra-articular distal radius and ulnar shaft fracture. Patient underwent open reduction internal fixation distal radius fracture, company new tired, more than 3 fragments, ulnar shaft fracture by Dr. Rendon. Unfortunately patient underwent another surgery on 11/23/2024 because of the broken hardware and the procedure performed was open reduction internal fixation distal radius and ulnar fracture, removal of the hardware from the right wrist, external fixator application right wrist which was also performed by Dr. Rendon. Patient reports after the she felt the pain has been infected and call the orthopedic office and she was given antibiotics unfortunately she was allergic to sulfa and ciprofloxacin. On 12/19 patient went to [facility] ED and was transferred to [facility]. In addition [facility] ED patient had evidence of hyponatremia, hypokalemia and patient reports she was given 1 dose of ceftriaxone?. Labs were performed today. WBC 6, hemoglobin 10.5, hematocrit 33, platelet 335, sodium 128, potassium 3.7, chloride 89, bicarbonate 32, anion gap 7, creatinine 0.6. Patient is admitted in the setting of right arm cellulitis. Ordered blood culture. Patient is started on Zosyn and vancomycin from Orthopedic team. Currently holding Eliquis due to possible surgical intervention if needed. Holding losartan hydrochlorothiazide combination due to hyponatremia and patient started on gentle fluid resuscitation. Sodium will be monitored q.4 hours. ORtho was consulted and they evaluated and recommended conservative management as hardware was aligned and not displaced. thus supportive care was recommended. She was placed on Antibiotics for Cellulitis and dsicharged on 7 more days of Doxycycline adn Augmentin. F/u with ortho as instructed Also managed for Hyponatremia and ANGELIKA, Losartan adn HCTZ were held and ANGELIKA and Hyponatremia resolved wtih IVF. However patient noted her appetite was poor prior to admission and have improved some. Discharged on Dronabinol. F/u with PCP in 3-5 days. Iron deficiency anemia with Hb 8.7 and Ferritin 22, received 500mg iv iron and discharged on 60 days of Ferrous sulfate. ALso managed for Hypokalemia nd Hypomagnesemia which i suspect is also from poor oral intake. Again oral intake has improved and K and Mg resolved. Discharged on K and Mg supplements for 14 days, along with appetite stimulants. Hypovitaminosis D, discharged on Vitamin D 1000 units daily, f/u with PCP. F/u with PCP in 3-5 days and F/u with Ortho as instructed Time Spent with Patient Time attestation: Total time spent providing and/or coordinating discharge services: DS: Data Data Completed and Pending Labs on day of discharge: Labs from last 24 hours 12/26/24 12/26/24 12/26/24 05:27 05:27 05:27 WBC RBC Hgb Hct MCV MCH MCHC RDW Plt Count MPV Immature Gran % (Auto) Neut % (Auto) Lymph % (Auto) [place] % (Auto) Eos % (Auto) Baso % (Auto) Lymph # (Auto) [place] # (Auto) Eos # (Auto) Baso # (Auto) Abs Immat Gran (auto) Absolute Neuts (auto) Absolute Nucleated RBC Nucleated RBC % Sodium Potassium Chloride Carbon Dioxide Anion Gap BUN Creatinine Estim Creat Clear Calc Estimated GFR Glucose 93 Serum Osmolality Calcium 8.6 8.5 Phosphorus 3.5 Magnesium 1.6 Total Bilirubin 0.3 AST 27 ALT 20 Alkaline Phosphatase 348 H Total Protein 7.0 Albumin 3.5 3.5 Zzebe-2-Cxsvvryfv Cmuli-1-Dpbzcomcf Nmaa-3-Pwnpltxo Fuca-2-Ktmnfxsb Gamma Globulins PEP Interpretation Urine Osmolality Urine Albumin U Zdgzp-6-Mptummow U Esuqh-7-Sidjhhdc U Beta Globulin U Gamma Globulin Urine PEP Interpret 12/26/24 12/26/24 12/26/24 05:27 05:27 05:27 WBC RBC Hgb Hct MCV MCH MCHC RDW Plt Count MPV Immature Gran % (Auto) Neut % (Auto) Lymph % (Auto) [place] % (Auto) Eos % (Auto) Baso % (Auto) Lymph # (Auto) [place] # (Auto) Eos # (Auto) Baso # (Auto) Abs Immat Gran (auto) Absolute Neuts (auto) Absolute Nucleated RBC Nucleated RBC % Sodium Potassium Chloride Carbon Dioxide Anion Gap BUN Creatinine 0.97 Estim Creat Clear Calc 46 46 Estimated GFR 58 L 58 L Glucose 92 Serum Osmolality Calcium Phosphorus Magnesium Total Bilirubin AST ALT Alkaline Phosphatase Total Protein Albumin Rzqpl-5-Porysngua Zuijm-3-Wyzhxejxg Jrds-0-Tvtnxjib Syut-6-Jkabddre Gamma Globulins PEP Interpretation Urine Osmolality Urine Albumin U Ghqwv-3-Jugajtfg U Yqolm-4-Hlgtlurh U Beta Globulin U Gamma Globulin Urine PEP Interpret 12/26/24 12/26/24 12/26/24 05:27 05:27 05:27 WBC RBC Hgb Hct MCV MCH MCHC RDW Plt Count MPV Immature Gran % (Auto) Neut % (Auto) Lymph % (Auto) [place] % (Auto) Eos % (Auto) Baso % (Auto) Lymph # (Auto) [place] # (Auto) Eos # (Auto) Baso # (Auto) Abs Immat Gran (auto) Absolute Neuts (auto) Absolute Nucleated RBC Nucleated RBC % Sodium Potassium Chloride Carbon Dioxide 28 Anion Gap 8 9 BUN 5 L 5 L Creatinine 0.97 Estim Creat Clear Calc Estimated GFR Glucose Serum Osmolality Calcium Phosphorus Magnesium Total Bilirubin AST ALT Alkaline Phosphatase Total Protein Albumin Uosyc-7-Bqjuvsmov Zmbay-6-Awboxalnc Heay-7-Cscueypy Ppih-7-Ifaitulq Gamma Globulins PEP Interpretation Urine Osmolality Urine Albumin U Qeogp-1-Deiuaboq U Myfia-8-Cffwmseg U Beta Globulin U Gamma Globulin Urine PEP Interpret 12/26/24 12/26/24 12/26/24 05:27 05:27 05:27 WBC RBC Hgb Hct MCV MCH MCHC RDW Plt Count MPV Immature Gran % (Auto) Neut % (Auto) Lymph % (Auto) [place] % (Auto) Eos % (Auto) Baso % (Auto) Lymph # (Auto) [place] # (Auto) Eos # (Auto) Baso # (Auto) Abs Immat Gran (auto) Absolute Neuts (auto) Absolute Nucleated RBC Nucleated RBC % Sodium 135 L Potassium 3.2 L 3.1 L Chloride 99 99 Carbon Dioxide 26 Anion Gap BUN Creatinine Estim Creat Clear Calc Estimated GFR Glucose Serum Osmolality Calcium Phosphorus Magnesium Total Bilirubin AST ALT Alkaline Phosphatase Total Protein Albumin Gvvdr-8-Zqgfkautt Sghxz-3-Kdeaeizzp Soxz-5-Vyevzpij Vwfy-6-Hxayvfdt Gamma Globulins PEP Interpretation Urine Osmolality Urine Albumin U Agntx-2-Akqyqywc U Pbyfk-6-Kxnsyvpp U Beta Globulin U Gamma Globulin Urine PEP Interpret 12/26/24 12/25/24 12/24/24 05:27 19:29 00:37 WBC 5.4 RBC 3.37 L Hgb 8.7 L Hct 27.9 L MCV 82.8 MCH 25.8 L MCHC 31.2 L RDW 16.7 H Plt Count 276 MPV 8.7 Immature Gran % (Auto) 0.6 H Neut % (Auto) 74.4 H Lymph % (Auto) 12.3 L [place] % (Auto) 10.1 H Eos % (Auto) 1.7 Baso % (Auto) 0.9 Lymph # (Auto) 0.67 L [place] # (Auto) 0.6 Eos # (Auto) 0.1 Baso # (Auto) 0.1 Abs Immat Gran (auto) 0.03 Absolute Neuts (auto) 4.1 Absolute Nucleated RBC 0.000 Nucleated RBC % 0.0 Sodium 134 L 132 L Potassium 3.0 L Chloride 98 Carbon Dioxide 28 Anion Gap 6 BUN 6 L Creatinine 1.12 H Estim Creat Clear Calc 40 Estimated GFR 49 L Glucose 108 Serum Osmolality Calcium 8.3 L Phosphorus Magnesium 2.0 Total Bilirubin AST ALT Alkaline Phosphatase Total Protein Albumin Klxlf-7-Dgaexardv Gflcz-7-Tvmnzmuox Onvj-9-Xdbvrqjr Zmmk-0-Pnibcrju Gamma Globulins PEP Interpretation Urine Osmolality Urine Albumin 100 U Yvnlt-4-Vyvwotox 0 U Iungx-9-Igboqqfc 0 U Beta Globulin 0 U Gamma Globulin 0 Urine PEP Interpret See note 12/23/24 12/22/24 04:41 10:59 WBC RBC Hgb Hct MCV MCH MCHC RDW Plt Count MPV Immature Gran % (Auto) Neut % (Auto) Lymph % (Auto) [place] % (Auto) Eos % (Auto) Baso % (Auto) Lymph # (Auto) [place] # (Auto) Eos # (Auto) Baso # (Auto) Abs Immat Gran (auto) Absolute Neuts (auto) Absolute Nucleated RBC Nucleated RBC % Sodium Potassium Chloride Carbon Dioxide Anion Gap BUN Creatinine Estim Creat Clear Calc Estimated GFR Glucose Serum Osmolality 292 Calcium Phosphorus Magnesium Total Bilirubin AST ALT Alkaline Phosphatase Total Protein Albumin 2.8 L Jpyhz-1-Szgfxjsjm 0.5 H Nhhin-2-Xpqrcidkw 0.8 Xzpg-6-Amujuiww 0.4 Rrpk-7-Nsgifewl 0.4 Gamma Globulins 0.9 PEP Interpretation See note Urine Osmolality 132 Urine Albumin U Wnaso-3-Uzwmfphw U Mfpsh-0-Ordrqyhe U Beta Globulin U Gamma Globulin Urine PEP Interpret Discharge Plan Discharge Attending physician on discharge: Lenin Rai Consulting providers: Efren Rendon; Dylan Ruiz Discharging Clinician: Lenin Rai Anticipated Discharge Date/Time: 12/26/24 11:41 Patient Disposition: Home Activity: follow weight bearing status Diet: regular Wound Care Instructions: follow printed instructions Discharge Instructions: Orthopedic Recommendations Dr. Efren Rendon [phone] * Keep appointment as previously scheduled with Dr. Rendon on 12/31 at 2:00 PM in [place], [place]. * Pain control. * Ice. Elevate. * Continue DAILY pin site care. * Contact our office with further questions at [phone] Patient Instructions: Antibiotic Form Patient Language: Belgian Stand Alone Forms: General Discharge Information Follow-up/Referrals: Efren Rendon MD [Physician] - 12/31/24 2:00 pm Discharge Medications: New oxycodone-acetaminophen 5-325 mg Tablet 1 tablet PO Q4H PRN (Reason: Pain Rated 4-6) 10 Days Qty: 10 0RF dronabinol 5 mg capsule 5 mg PO BID 14 Days Qty: 28 0RF Rx Instructions: administer before lunch and evening meal/dinner amlodipine [Norvasc] 5 mg Tablet 5 mg PO DAILY 30 Days Qty: 30 0RF doxycycline hyclate 100 mg Tablet 100 mg PO Q12HR 7 Days Qty: 14 0RF cholecalciferol (vitamin D3) [Vitamin D3] 25 mcg (1,000 unit) Tablet 25 mcg PO DAILY 30 Days Qty: 30 1RF magnesium oxide 500 mg capsule 500 mg PO DAILY 7 Days Qty: 7 0RF potassium chloride [K-Tab] 20 mEq tablet extended release 20 meq PO BID 7 Days Qty: 14 0RF Continued celecoxib 200 mg capsule 200 mg PO BID carvedilol 25 mg tablet 25 mg PO Q12H diltiazem HCl [DILT-XR] 240 mg capsule,ext.rel 24h degradable 240 mg PO DAILY omeprazole 40 mg capsule,delayed release(DR/EC) 40 mg PO DAILY levothyroxine 100 mcg tablet 100 mcg PO DAILY losartan-hydrochlorothiazide 100-25 mg tablet 1 tablet PO DAILY isosorbide mononitrate 60 mg tablet extended release 24 hr 60 mg PO DAILY alprazolam 0.25 mg tablet 0.25 mg PO QID PRN (Reason: anxiety) digoxin 125 mcg (0.125 mg) tablet 0.125 mg PO DAILY metoclopramide HCl 10 mg tablet 10 mg PO BID PRN (Reason: nausea and vomiting) ezetimibe 10 mg tablet 10 mg PO DAILY rosuvastatin 5 mg tablet 5 mg PO DAILY duloxetine 60 mg capsule,delayed release(DR/EC) 60 mg PO DAILY Eliquis 5 mg tablet 5 mg PO DAILY furosemide 20 mg tablet 20 mg PO DAILY Patient Comments: Says takes maybe a couple times a week prn if notices swelling albuterol sulfate 90 mcg/actuation HFA aerosol inhaler 2 puff inhalation QID PRN (Reason: shortness of breath or wheezing) Qty: 6.7 0RF (DME) Aerochamber MV Spacer See Rx Instructions .Route Qty: 1 0RF Rx Instructions: As directed ibuprofen 600 mg tablet 600 mg PO TID PRN (Reason: fever or pain) Qty: 30 1RF oxycodone-acetaminophen 7.5-325 mg tablet 1 tablet PO .q6 h PRN (Reason: pain) Qty: 30 0RF Date of admission: 12/21/24 14:04 Primary Care Provider: Rosa,Yg Zaldivar Admitting Provider: Lucina Barnhart Attending physician on admission: Lucina Barnhart Condition: Improved
--- NOTE | 2024-12-26 14:38 | PM.PNORT ---
Progress Note: A&P Assessment and Plan (1) Closed fracture distal radius and ulna: Qualifiers: Encounter type: subsequent encounter Fracture healing: with nonunion Laterality: right Qualified Code(s): S52.501K - Unspecified fracture of the lower end of right radius, subsequent encounter for closed fracture with nonunion; S52.601K - Unspecified fracture of lower end of right ulna, subsequent encounter for closed fracture with nonunion Code(s): S52.509A - Unspecified fracture of the lower end of unspecified radius, initial encounter for closed fracture; S52.609A - Unspecified fracture of lower end of unspecified ulna, initial encounter for closed fracture Status: Acute Assessment and Plan: Radiographs reviewed with patient which show well-maintained alignment of the fracture and no signs of loosening or complication with the external fixator. No evidence of osteomyelitis. Swelling improving. No other signs of infection. Continue with empiric antibiotics. Blood cultures negative to date. Continue edema control. Swelling and pain of forearm may be neuropathic etiology. No plans for surgery of the right forearm at this time. Plan for discharge home if continues to show signs of improvement and medically stable. Plan Follow-up in orthopedic Office January 03 to evaluate for possible ex fix removal Subjective Subjective Date/Time Seen: 12/26/24 14:38 Principal diagnosis: Right radius and ulna fracture Interval history: Patient up in chair. States swelling slightly better. No other complaints or changes overnight. Exam Const: General: healthy appearing; No in distress or confusion Orientation/consciousness: oriented to person, oriented to place, oriented to time and No confusion HENMT: Head: normal to inspection, normocephalic and atraumatic Neck: Neck: supple and nontender Resp: Effort & Inspection: normal respiratory effort and no audible wheezes Neuro: General: oriented to person, oriented to place, oriented to time and No confusion Extrem: Right upper extremity: normal to inspection, shoulder/upper arm no tenderness and no swelling, elbow/forearm tenderness of the mid-shaft forearm, swelling of the mid-shaft forearm ( Volar aspect, moderate) anteriorly and normal ROM, wrist tenderness of the distal radius and of the dorsal wrist, swelling (moderate) of the dorsal wrist and abnormal ROM pain with active ROM during with extension and with flexion and pain with passive ROM during with extension and with flexion (Ext 30, Flex 30, Pro 40, Sup 35) and Extremity exam: right hand neuromotor exam normal, neuromotor exam abnormal wrist extension abnormal limited by pain, neurosensory exam normal radial nerve sensory function normal, ulnar nerve sensory function normal, median nerve sensory function normal and digital nerve sensory function normal, tendon exam normal of all digits and vascular exam radial pulse present and normal capillary refill Left upper extremity: normal to inspection, shoulder/upper arm no tenderness and no swelling, elbow/forearm no tenderness and no swelling, wrist normal ROM and radial pulse present 2+; no tenderness and no swelling and hand normal capillary refill, neuromotor exam normal, neurosensory exam normal Details: radial nerve sensory function normal, ulnar nerve sensory function normal, median nerve sensory function normal and digital nerve sensory function normal, vascular exam normal capillary refill and normal ROM of fingers Other: external fixator pin sites clean and dry. No erythema or drainage. Moderate swelling forearm-slightly improved. Neurovascular intact. Able to move all fingers and thumb. Psych: Affect: normal affect Objective Data Vital Signs Vital Signs: Vital Signs - 24 hr 12/25/24 16:00 12/25/24 20:00 12/25/24 20:00 Temperature Pulse Rate 73 79 79 Respiratory Rate 16 Blood Pressure Pulse Oximetry 95 Oxygen Delivery Room Air Fraction of Inspired Oxygen 21 12/25/24 21:14 12/25/24 21:38 12/26/24 00:00 Temperature 99.2 F Pulse Rate 76 79 74 Respiratory Rate 16 Blood Pressure 165/80 H Pulse Oximetry 95 Oxygen Delivery Fraction of Inspired Oxygen 12/26/24 04:00 12/26/24 06:00 12/26/24 08:00 Temperature 98.2 F Pulse Rate 74 74 90 Respiratory Rate 16 Blood Pressure 167/78 H Pulse Oximetry 95 Oxygen Delivery Fraction of Inspired Oxygen 12/26/24 08:15 12/26/24 08:18 12/26/24 08:19 Temperature Pulse Rate 84 84 Respiratory Rate Blood Pressure Pulse Oximetry Oxygen Delivery Room Air Fraction of Inspired Oxygen 12/26/24 12:00 Temperature Pulse Rate 74 Respiratory Rate Blood Pressure Pulse Oximetry Oxygen Delivery Fraction of Inspired Oxygen Intake/Output Intake/Output: Intake & Output 12/23/24 12/24/24 12/25/24 12/26/24 23:59 23:59 23:59 23:59 Intake Total 3672.0 4550 4660 980 Output Total 3050 2353 3800 2200 Balance 622.0 2197 860 -1220 Meds/Results Medications: Active Medications Generic Name Dose Route Start Last Admin Trade Name Freq PRN Reason Stop Dose Admin Albuterol 2 puff 12/20/24 16:16 Albuterol Sulfate (*Sp) Aerosol 1 Puff INHALATION QIDRT PRN shortness of breath or wheezing Alprazolam 0.25 mg 12/20/24 16:16 12/25/24 23:40 Alprazolam (*Crx) 0.25 Mg Tablet PO 0.25 mg QID PRN Administration anxiety Amlodipine Besylate 5 mg 12/21/24 09:00 12/26/24 08:19 Amlodipine Besylate 5 Mg Tablet PO 5 mg DAILY GUME Administration Amoxicillin/Clavulanate Potassium 1 tablet 12/24/24 12:00 12/26/24 08:18 Amoxicillin/Clavulanate K 875-125 Mg Tab PO 01/02/25 23:59 1 tablet Q12HR GUME Administration Carvedilol 25 mg 12/20/24 21:00 12/26/24 08:18 Carvedilol 25 Mg Tablet PO 25 mg Q12H GUME Administration Digoxin 125 mcg 12/21/24 09:00 12/26/24 08:19 Digoxin Tab 125 Mcg Tablet PO 125 mcg DAILY GUME Administration Diltiazem HCl 240 mg 12/21/24 09:00 12/26/24 08:19 Diltiazem Hcl Cd 240 Mg Cap.24hr PO 240 mg DAILY GUME Administration Doxycycline Hyclate 100 mg 12/24/24 11:00 12/26/24 08:18 Doxycycline Hyclate 100 Mg Tablet PO 01/02/25 23:59 100 mg Q12HR GUME Administration Duloxetine HCl 60 mg 12/21/24 09:00 12/26/24 08:18 Duloxetine Hcl 60 Mg Capsule.Dr PO 60 mg DAILY GUME Administration Ezetimibe 10 mg 12/21/24 09:00 12/26/24 08:19 Ezetimibe 10 Mg Tablet PO 10 mg DAILY GUME Administration Enoxaparin Sodium 40 mg 12/26/24 09:00 12/26/24 08:19 Enoxaparin 40 Mg/0.4 Ml Syringe SUB-Q Not Given DAILY GUME Sodium Chloride 1,000 mls @ 100 mls/hr 12/20/24 16:45 12/26/24 13:17 Normal Saline Iv IV CONT Not Given .Q10H GUME Isosorbide Mononitrate 60 mg 12/21/24 09:00 12/26/24 08:19 Isosorbide Mononitrate 60 Mg Tab.Er.24h PO 60 mg DAILY GUME Administration Levothyroxine Sodium 100 mcg 12/21/24 06:30 12/26/24 05:33 Levothyroxine Sodium 100 Mcg Tablet PO 100 mcg DAILY@0630 GUME Administration Morphine Sulfate 2 mg 12/20/24 11:38 12/25/24 20:07 Morphine Sulfate (*Crx) 2 Mg/Ml Inj IV PUSH 2 mg Q4H PRN Administration Pain Rated 7-10 Non-Formulary ( 0 each 12/21/24 14:00 12/26/24 13:17 Everclear Ethyl XX 01/20/25 13:59 1 each Alcohol Q8HR GUME Administration Miscellaneous Liquid ) 4 Oz Non-Formulary ( 0 each 12/21/24 13:56 Everclear Ethyl XX 01/20/25 13:55 Alcohol PRN PRN Miscellaneous Liquid EXTERNAL FIXATOR PIN CLEANING ) 4 Oz Ondansetron HCl 4 mg 12/21/24 11:06 12/26/24 05:41 Ondansetron Inj 4 Mg/2 Ml Vial IV PUSH 4 mg Q4H PRN Administration Nausea And Vomiting Oxycodone/Acetaminophen 1 tablet 12/20/24 18:25 12/26/24 05:40 Oxycodone/Acetaminophen (*Crx) 5-325 Mg Tablet PO 1 tablet Q4H PRN Administration Pain Rated 4-6 Pantoprazole Sodium 40 mg 12/21/24 09:00 12/26/24 08:18 Pantoprazole 40 Mg Tablet PO 40 mg Q12HR GUME Administration Rosuvastatin Calcium 5 mg 12/21/24 09:00 12/26/24 08:19 Rosuvastatin 5 Mg Tablet PO 5 mg DAILY GUME Administration Vitamin D 1,000 units 12/22/24 09:00 12/26/24 08:19 Cholecalciferol 1,000 Units Tablet PO 1,000 units DAILY GUME Administration Radiology Results: ITS Impressions Forearm X-Ray 12/20/24 14:44 IMPRESSION: Fractures of the radius and ulna with external and internal fixation. Chest X-Ray 12/22/24 11:48 IMPRESSION: 1. Small bilateral pleural effusions with mild bibasilar atelectasis. Renal Ultrasound 12/22/24 19:11 IMPRESSION: Normal study. Labs Labs: Laboratory Results - last 24 hr 12/23/24 12/24/24 12/25/24 04:41 00:37 19:29 WBC RBC Hgb Hct MCV MCH MCHC RDW Plt Count MPV Immature Gran % (Auto) Neut % (Auto) Lymph % (Auto) [place] % (Auto) Eos % (Auto) Baso % (Auto) Lymph # (Auto) [place] # (Auto) Eos # (Auto) Baso # (Auto) Abs Immat Gran (auto) Absolute Neuts (auto) Absolute Nucleated RBC Nucleated RBC % Sodium 132 L Potassium 3.0 L Chloride 98 Carbon Dioxide 28 Anion Gap 6 BUN 6 L Creatinine 1.12 H Estim Creat Clear Calc 40 Estimated GFR 49 L Glucose 108 Calcium 8.3 L Phosphorus Magnesium 2.0 Total Bilirubin AST ALT Alkaline Phosphatase Total Protein Albumin 2.8 L Nwovb-8-Hbdbfmrcm 0.5 H Yowdp-7-Ijmheuorp 0.8 Twed-5-Rgrndwpz 0.4 Ftjn-6-Ifcgbvlx 0.4 Gamma Globulins 0.9 PEP Interpretation See note Urine Albumin 100 U Oepbz-6-Ocrjqaxh 0 U Fdxlk-6-Evurrdob 0 U Beta Globulin 0 U Gamma Globulin 0 Urine PEP Interpret See note 12/26/24 12/26/24 12/26/24 05:27 05:27 05:27 WBC 5.4 RBC 3.37 L Hgb 8.7 L Hct 27.9 L MCV 82.8 MCH 25.8 L MCHC 31.2 L RDW 16.7 H Plt Count 276 MPV 8.7 Immature Gran % (Auto) 0.6 H Neut % (Auto) 74.4 H Lymph % (Auto) 12.3 L [place] % (Auto) 10.1 H Eos % (Auto) 1.7 Baso % (Auto) 0.9 Lymph # (Auto) 0.67 L [place] # (Auto) 0.6 Eos # (Auto) 0.1 Baso # (Auto) 0.1 Abs Immat Gran (auto) 0.03 Absolute Neuts (auto) 4.1 Absolute Nucleated RBC 0.000 Nucleated RBC % 0.0 Sodium 134 L 135 L Potassium 3.1 L 3.2 L Chloride 99 Carbon Dioxide Anion Gap BUN Creatinine Estim Creat Clear Calc Estimated GFR Glucose Calcium Phosphorus Magnesium Total Bilirubin AST ALT Alkaline Phosphatase Total Protein Albumin Zytam-7-Gkcdtpfbm Xeibo-8-Ftcutuirc Ziuc-7-Lfuevdqk Jbnd-4-Pzwazleb Gamma Globulins PEP Interpretation Urine Albumin U Zkrjo-1-Wraadpcm U Rutsy-7-Nfttanpr U Beta Globulin U Gamma Globulin Urine PEP Interpret 12/26/24 12/26/24 12/26/24 05:27 05:27 05:27 WBC RBC Hgb Hct MCV MCH MCHC RDW Plt Count MPV Immature Gran % (Auto) Neut % (Auto) Lymph % (Auto) [place] % (Auto) Eos % (Auto) Baso % (Auto) Lymph # (Auto) [place] # (Auto) Eos # (Auto) Baso # (Auto) Abs Immat Gran (auto) Absolute Neuts (auto) Absolute Nucleated RBC Nucleated RBC % Sodium Potassium Chloride 99 Carbon Dioxide 26 28 Anion Gap 9 8 BUN 5 L Creatinine Estim Creat Clear Calc Estimated GFR Glucose Calcium Phosphorus Magnesium Total Bilirubin AST ALT Alkaline Phosphatase Total Protein Albumin Mvwqj-2-Cxpiefwhk Xhcst-8-Cwnpuziwd Gdbz-0-Shdapxoy Ridc-9-Azmchpfg Gamma Globulins PEP Interpretation Urine Albumin U Ptroq-4-Qjzyiavj U Jsrzj-3-Cpzxgyde U Beta Globulin U Gamma Globulin Urine PEP Interpret 12/26/24 12/26/24 12/26/24 05:27 05:27 05:27 WBC RBC Hgb Hct MCV MCH MCHC RDW Plt Count MPV Immature Gran % (Auto) Neut % (Auto) Lymph % (Auto) [place] % (Auto) Eos % (Auto) Baso % (Auto) Lymph # (Auto) [place] # (Auto) Eos # (Auto) Baso # (Auto) Abs Immat Gran (auto) Absolute Neuts (auto) Absolute Nucleated RBC Nucleated RBC % Sodium Potassium Chloride Carbon Dioxide Anion Gap BUN 5 L Creatinine 0.97 0.97 Estim Creat Clear Calc 46 46 Estimated GFR 58 L Glucose Calcium Phosphorus Magnesium Total Bilirubin AST ALT Alkaline Phosphatase Total Protein Albumin Vcyve-5-Uguxdbeks Fzxfn-1-Htujirntt Awxh-0-Emfgtjan Coly-6-Cciidwxh Gamma Globulins PEP Interpretation Urine Albumin U Mczvz-1-Niiepamy U Uacde-6-Oaembdju U Beta Globulin U Gamma Globulin Urine PEP Interpret 12/26/24 12/26/24 12/26/24 05:27 05:27 05:27 WBC RBC Hgb Hct MCV MCH MCHC RDW Plt Count MPV Immature Gran % (Auto) Neut % (Auto) Lymph % (Auto) [place] % (Auto) Eos % (Auto) Baso % (Auto) Lymph # (Auto) [place] # (Auto) Eos # (Auto) Baso # (Auto) Abs Immat Gran (auto) Absolute Neuts (auto) Absolute Nucleated RBC Nucleated RBC % Sodium Potassium Chloride Carbon Dioxide Anion Gap BUN Creatinine Estim Creat Clear Calc Estimated GFR 58 L Glucose 92 93 Calcium 8.5 8.6 Phosphorus 3.5 Magnesium 1.6 Total Bilirubin 0.3 AST 27 ALT 20 Alkaline Phosphatase 348 H Total Protein 7.0 Albumin 3.5 Phykp-1-Cndyflyaz Kdfks-6-Zfxlesyws Euun-4-Hztlouvt Ehsb-2-Biezxbtt Gamma Globulins PEP Interpretation Urine Albumin U Wwzqf-1-Vsdauivi U Mhefg-8-Cxmesxxu U Beta Globulin U Gamma Globulin Urine PEP Interpret 12/26/24 05:27 WBC RBC Hgb Hct MCV MCH MCHC RDW Plt Count MPV Immature Gran % (Auto) Neut % (Auto) Lymph % (Auto) [place] % (Auto) Eos % (Auto) Baso % (Auto) Lymph # (Auto) [place] # (Auto) Eos # (Auto) Baso # (Auto) Abs Immat Gran (auto) Absolute Neuts (auto) Absolute Nucleated RBC Nucleated RBC % Sodium Potassium Chloride Carbon Dioxide Anion Gap BUN Creatinine Estim Creat Clear Calc Estimated GFR Glucose Calcium Phosphorus Magnesium Total Bilirubin AST ALT Alkaline Phosphatase Total Protein Albumin 3.5 Pofcz-5-Udpqentxf Ukwpv-5-Qjlrbykat Hudi-2-Ppsuruup Pnpf-1-Lfxgwqaj Gamma Globulins PEP Interpretation Urine Albumin U Yoykr-9-Xmsfrmxh U Atjnn-3-Cwnhiofe U Beta Globulin U Gamma Globulin Urine PEP Interpret
== END 2024-12-26 14:41 | disposition home or self-care (01) | DRG 603 ==
PROVIDERS: General Practice; Internal Medicine; Internal Medicine Nephrology; Orthopaedic Surgery; Admitting Provider General Practice; PCP Internal Medicine; Visit Provider Internal Medicine
DX: L03.113 Cellulitis of right upper limb (principal); E87.1 Hypo-osmolality and hyponatremia; N17.9 Acute kidney failure, unspecified; S52.501K Unspecified fracture of the lower end of right radius, subsequent encounter for closed fracture with nonunion; S52.601K Unspecified fracture of lower end of right ulna, subsequent encounter for closed fracture with nonunion; I48.19 Other persistent atrial fibrillation; E87.6 Hypokalemia; M06.9 Rheumatoid arthritis, unspecified; M85.80 Other specified disorders of bone density and structure, unspecified site; M79.7 Fibromyalgia; G47.33 Obstructive sleep apnea (adult) (pediatric); Z87.891 Personal history of nicotine dependence; Z79.01 Long term (current) use of anticoagulants
CPT/HCPCS: 36415; 71046; 73090; 76775; 80048; 80053; 80069; 80202; 81001; 82533; 82550; 82565; 82570; 82728; 83540; 83550; 83735; 83930; 83935; 84100; 84132; 84155; 84156; 84165; 84166; 84295; 84300; 85025; 85027; 85999; 87040; 87086; 87641; 93306; A9270; G0378; J1756; J2270; J2405; J2543; J3370; J3475; J7030; J7050

== ENCOUNTER 2025-01-14 12:33 | Outpatient (CLI) | payer OTHER, SELFPAY ==
--- NOTE | ~2025-01-14 | XR_ITS ---
XR wrist RT min 3V Ordering provider: Efren Rendon MD History: . M84.633K - Pathological fracture in other disease, right ... . Comparison: January 03, 2025 FINDINGS: BONES: Fracture in the proximal radius and mid ulna is noted with postoperative changes. No change in alignment The external fixation is removed in the interval. Overlying cast is noted. JOINT SPACES: Narrowing of the radiocarpal joint. SOFT TISSUES: Normal. IMPRESSION: Fractures in the radius and ulna with no change in alignment compared to previous study.. Reviewed, dictated and finalized at location A. IMPRESSION: Fractures in the radius and ulna with no change in alignment compared to previo us study..
--- OUTSIDE RECORDS SUMMARY | 2025-01-14 12:36 | XMS_ITS | Clinical Summary ---
Author Organization [facility] Address [address] [place] [address] Care Team Providers Care Oracle Forms Developer Name Role Phone Shandra Ruffin Malcolm WISDOM-FIELD RECRUITER Primary Care Provider Source Comments [facility],non-owned Affiliates and Associated Physician Practices is amultiple site organization consisting of ambulatory clinics and hospital sitesin [place], [place], [place]. This disclosure is being madepursuant to the Care Everywhere program and may not contain all information available regarding this patient. Last updated 18.[facility] Allergies Active Allergy Reactions Criticality Noted Date [...] (AF LURIA, FLUZONE TRIVALENT; 6MO+) (IIV3) 06/16/2016,06/11/2015,06/01/2014,2012,06/14/2012,06/01/2011 [employer] primary monoval ent 12+ yr 0.3mL Purple [...] on file Legal Sex Female 1:04 PM [employer] Gender Identity Not on file Sexual Orientation [...] Comments COMPREHENSIVE METABOLIC PANEL 08/31/2022 9:26 AM [employer] from Last 3 Months or Most Recently Relevant to Health Maintenance Results * (ABNORMAL) COMPREHENSIVE METABOLIC PANEL (08/31/2022 9:26 AM [employer]) Glucose 105(H) 65 - 99 mg/dL [facility] [...] 29 U/L [facility] Comment: Test Performed at: [facility] [address] [place] [address] LUISA LAWRENCE DO,MPH 08/31/2022 9:26 AM [employer] 08/31/2022 9:27 AM [employer] us Mitchell Zamarripa MD LAB - CHEMISTRY ORDERABLES Final Result [facility] [id number] [place] [address] from Last 3 Months or Most Recently Relevant to Health Maintenance Insurance [facility] MEDICARE ANTHEM ANTHEM Advance Directives * FULL RESUSCITATION (Latest Code Status on File) Date Activated Date Inactivated Comments 11/08/2011 12:50 PM 11/10/2011 12:21 AM Care Teams Oracle Forms Developer Relationship Specialty Start Date End Date Shandra Ruffin, DIET COUNSELOR-FIELD RECRUITER [address] [place] [address] PCP - General 04/02/22
--- OUTSIDE RECORDS SUMMARY | 2025-01-14 12:36 | XMS_ITS | Clinical Summary ---
Author Organization [facility] Address [address] [place] [address] Care Team Providers Care Deputy Juvenile Officer Name Role Phone Yg Lee MD Primary Care Provider [phone] Allergies Active Allergy Reactions Criticality Noted Date [...] (Dexilant) 60 mg Delayed Release capsule Lot: [id number] Ex: 10/21 Qty: 8 5 Capsule Active [...] on 12/04/2024 fluticasone propionate (FLONASE) 50 mcg/spray Hen[place], Suspension nasal inhaler USE 1 OR 2 [...] Active apixaban (ELIQUIS) 5 mg tablet Lot: [id number] ex: 05/2025 qty: 8 14 Tablet Active [...] FOR SHORTNESS OF BREATH OR FOR WHEEZE 025 Active HYDROcodone-aceta minophen (NORCO) 5-325 mg tablet 025 Active ibuprofen (MOTRIN) 600 mg tablet 600 MG ORALLY THREE TIMES A DAY NEEDED FOR FEVER OR PAIN 025 Active ezetimibe (ZETIA) 10 mg tablet Take [...] MOUTH DAILY 100 Tablet 3 025 Active losartan-hydroCHL OROthiazide (HYZAAR) 100-25 mg tabletIndications :Essential hypertension, benign TAKE 1 TABLET BY MOUTH DAILY 90 Tablet 3 025 2024 Discontinued Active Problems Patient Care Coordination No te Formatting of this note migh t be different from the original. GI-Christ[facility] [id number] 09/01/22 [id number] 12/04/24 Problem Noted Date Diagnosed [...] Encounters Date Type Department Care Team Description 01/10/2025 Orders Only [place] [address] [place] [address] Provider, Abstract 01/09/2025 Abstract [place] [address] [place] [place] [address] [place] [address] Provider, Abstract 01/03/2025 Abstract [place] [address] [place] [address] [place] [address] Provider, Abstract 12/27/2024 Orders Only [place] [address] [place] [place] [address] Provider, Abstract 12/25/2024 Abstract [place] [address] [place] [address] [place] [address] Yg Lee MD 12/25/2024 Orders Only [place] [address] [place] [address] [place] [address] Provider, Abstract 12/18/2024 Refill [place] [address] [place] [address] [place] [address] Yg Lee MD Essential hypertension, benign 12/06/2024 Telephone [place] [address] [place] [place] [address] Yg Lee MD Needs Orders Written 12/04/2024 3:00 PM CDT Office Visit [address] [place] [address] Yg Lee MD Pulmonary nodule (Primary Dx); Atrial fibrillation, unspecified type (CMS/HCC); Moderate mitral regurgitation; Essential hypertension, benign; Other specified hypothyroidism; Other hyperlipidemia; Abnormal glucose; Hypomagnesemia; Vitamin D deficiency; Vitamin B12 deficiency (non anemic); Other osteoporosis with current pathological fracture with delayed healing, subsequent encounter; Menopause; Gastroesophageal reflux disease without esophagitis; Psoriatic arthritis (CMS/HCC); Pulmonary hypertension ([facility]/HCC); Other emphysema ([facility]/HCC) 12/03/2024 Abstract [facility] [address] [place] [address] Yg Lee MD 11/27/2024 External Device Data STL ABSTRACTION Provider, Abstract 11/19/2024 Abstract [facility] [address] [facility] [address] [place] [address] Yg Lee MD 11/13/2024 Telephone [facility] [address] [facility] [address] [place] [address] Yg Lee MD Needs Orders Written 11/05/2024 External Device Data STL ABSTRACTION Provider, Abstract 10/17/2024 External Device Data STL ABSTRACTION Provider, Abstract from Last 3 Months Immunizations Immunization Administration Dates Next Due (ADACEL/BOOSTRIX)(10 YR UP) TDAP VACCINE, 0.5ML, IM 06/15/2011 (PFIZER)(12 YR UP) COVID-19 VACCINE - EMERGENCY USE AUTHORIZATION, MRNA, [id number](PF) 30 MCG/0.3 ML IM SUSP 04/22/2021,04/01/2021 (PNEUMOVAX 23)(50 YRS UP) PN EUMOCOCCAL POLYSACCHARIDE (PPV23) 0.5 ML, IM 07/18/2017,06/15/2011 (PREVNAR 13)(6 WKS UP) PNEUM OCOCCAL CONJUGATE (PCV13) 0.5 ML, IM 10/20/2020 (PREVNAR 20)(6 WKS UP) PNEUM OCOCCAL CONJUGATE VACCINE 20-VALENT (PCV20), POLYSACCHARIDE [id number] CONJUGATE, ADJUVANT 0.5 ML (PF) IM 02/23/2023 [...] on file 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 Gender Identity Not on file Sexual Orientation [...] Description 06/17/2025 11:20 AM CDT Office Visit [facility] [address] [address] Yg Lee MD [address] [place] [address] Health Maintenance Due Date Last Done [...] history exists Medical Devices Implanted Type Area Customer Liaison Device Identifier Shelf Expiration Date Model / Serial / Lot Stent Pncrtc Frmn Flx 5fr 5cm 6552 - [id number] Implanted:Qty: 1 on 02/24/2018 by John White MD at [facility] Stent N/A: Pancreas [employer] [id number] 09/29/2022 6552 / / [id number] Procedures Procedure Name Priority Date/Time Associated Diagnosis Comments ECHOCARDIOGRAM REPORT Routine 12/21/2024 2:26 PM CDT XR FOREARM 2 VW RIGHT Routine 12/20/2024 3:07 PM CDT COMPREHENSIVE METABOLIC PANEL Routine 12/18/2024 3:[address] CHEST W CONTRAST Routine 12/12/2024 3 :14 PM CDT XR WRIST 3+ VW RIGHT Routine 12/03/2024 3:09 PM CDT XR OR Routine 11/23/2024 2:59 PM CDT XR WRIST 3+ VW RIGHT Routine 11/19/2024 3:01 PM CDT XR CHEST 2 VW W FLUOROSCOPY Routine 11/08/2024 3:02 PM CDT XR WRIST 3+ VW RIGHT Routine 11/05/2024 3:04 PM CDT XR WRIST 3+ VW RIGHT Routine 10/22/2024 3:05 PM TOWER WATCHMAN HEMOGLOBIN A1C Routine 06/15/2024 9:16 AM CDT Abnormal glucose MAMMO 3D KIRILL SCREEN BILAT W OR WO CAD Routine 05/16/2024 1:15 PM CDT Screening mammogram, encounter for from Last 3 Months or Most Recently Relevant to Health Maintenance Results * ECHOCARDIOGRAM REPORT (12/21/2024 2:26 PM CDT) us Abstract Provider ECHO ORDERABLES Edited Result - Final Performing Organization Address [facility] Co de Phone Number [facility] CLIA# [id number] [address] [facility] [address] [place] [address] * XR FOREARM 2 VW RIGHT (12/20/2024 3:07 PM CDT) Anatomical Region Laterality Modality Upper Extremity Other us Abstract Provider DIAGNOSTIC IMAGING ORDERABLES Edited Result - Final * COMPREHENSIVE METABOLIC PANEL (12/18/2024 3:13 PM CDT) Blood us Abstract Provider CHEMISTRY ORDERABLES Edited Re sult - Final Performing Organization Address [facility]/ZIP Co de Phone Number [facility] CLIA# [id number] [address] [facility] [address] [place] [address] * CT CHEST W CONTRAST (12/12/2024 3:14 PM CDT) Anatomical Region Laterality Modality Chest Computed Tomogra phy us Abstract Provider CT ORDERABLES Edited Result - Final * XR WRIST 3+ VW RIGHT (12/03/2024 3:09 PM CDT) Only the most recent of4 resultswithin the time period is included. Anatomical Region Laterality Modality Wrist / Hand Other us Abstract Provider DIAGNOSTIC IMAGING ORDERABLES Edited Result - Final * XR OR (11/23/2024 2:59 PM CDT) Anatomical Region Laterality Modality Other us Abstract Provider DIAGNOSTIC IMAGING ORDERABLES Edited Result - Final * XR CHEST 2 VW W FLUOROSCOPY (11/08/2024 3:02 PM CDT) Anatomical Region Laterality Modality Chest Other Abstract Provider DIAGNOSTIC IMAGING ORDERABLES Edited Result - Final * HEMOGLOBIN A1C (06/15/2024 9:16 AM CDT) HEMOGLOBIN A1C 5.2 <5.7 % of total Hgb web care [facility] Max Comment: For the purpose of screening for the presence of diabetes: <5.7% Consistent with the absence of diabetes 5.7-6.4% Consistent with increased risk for diabetes (prediabetes) > or =6.5% Consistent with diabetes This assay result is consistent with a decreased risk of diabetes. Currently, no consensus exists regarding use of hemoglobin A1c for diagnosis of diabetes in children. According to [place] Diabetes Association (ADA) guidelines, hemoglobin A1c <7.0% represents optimal control in non- diabetic patients. Different metrics may apply to specific patient populations. Standards of Medical Care in Diabetes(ADA). ESTIMATED AVERAGE GLUCOSE (MG/DL) 103 mg/dL web care [facility] [employer] sheyla Santana ESTIMATED AVERAGE GLUCOSE (MMOL/L) 5.7 mmol/L [facility] Santana Comment: FASTING:YES FASTING: YES Test Performed at: [facility] [place] [address] [place] [address] Ceferino Dasilva Vo Blood 06/15/2024 9:16 AM CDT 06/15/2024 9:17 AM CDT us Yg Lee MD CHEMISTRY ORDERABLES Final Re sult [facility] [phone] [place] [address] [place] [address] * MAMMO 3D KIRILL SCREEN BILAT W OR WO CAD (05/16/2024 1:15 PM CDT) Anatomical Region Laterality Modality Breast Bilateral Mammography 05/16/2024 1:15 PM CDT Impressions 05/16/2024 2:36 PM CDT IMPRESSION: No mammographic evidence of malignancy in the bilateral breasts. Routine screening mammography is recommended in one year. OVERALL FINAL ASSESSMENT: BI-RADS CATEGORY 1 - Negative. [facility] N[facility]ative 05/16/2024 2:36 PM CDT EXAMINATION: BILATERAL [...] BI-RADS CATEGORY 1 - Negative. DICTATION LOCATION: [facility] us Yg Lee MD MAMMO ORDERABLES Final Result from Last 3 Months or Most Recently Relevant to Health Maintenance Insurance RX [employer] RX Member Subscriber Plan / Payer (Ef fective 2020-Present) Name:Antoinette Da Silva Relation to Subscriber:Self Name:Antoinette Da Silva Payer ID:Not on file Type:RX Commercial Address: [place] PPO MCR Advance Directives For more information, please contact: [phone] Documents on File Type Date Recorded Patient Hand Mica Plate Layer Expl anation Advance Directive Living Will 10/20/2020 [...] 12:41 PM 10/31/2015 7:49 PM Care Teams Deputy Juvenile Officer Relationship Specialty Start Date End Date Yg Lee MD PCP - General Internal Medicine 12/20/18
--- OUTSIDE RECORDS SUMMARY | 2025-01-14 12:37 | XMS_ITS | Encounter Summary ---
Author Organization [facility] Address [address] [place] [address] Care Team Providers Care Carbon Setter Name Role Phone Yg Lee MD Primary Care Provider + Mitchell Zamarripa MD Unavailable [phone] Brit More NP Unavailable [phone] Cliff Ronquillo NP Unavailable [phone] Dick Aguilar Unavailable [phone] Gavin Sewell MD Unavailable [phone] Encounter Details Date Type Department Care Team (Late st Contact Info) Description 12/14/2021 Telephone [facility] [address] [place] [address] Fariha Hampton, RT Social History Tobacco Use Types Packs/Day Years Used Date Smoking Tobacco: Former Smokeless Tobacco: Never Alcohol Use Standard Drinks/Week Comments Yes 0 (1 standard drink = 0.6 oz pur e alcohol) occasional Comments No Sex and Gender Information Value Date Recorded Sex Assigned at Not on file Legal Sex Female 11:50 PM 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 Gender Identity Not on file Sexual Orientation [...] COVID: Suspected 07/22/2024 07/22/2024 07/22/2024 9:25 AM 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 documented as of this encounter Care Teams Carbon Setter Relationship Specialty Start Date End Date Yg Lee MD PCP - General Internal Medicine 08/19/20 Mitchell Zamarripa MD Referring Physician Rheumatology 03/11/22 Brit More NP Nurse Practitioner Cardiovascular Disease 03/11/22 Cliff Ronquillo NP [address] [place] [address] [address] [facility] [facility] [place] [address] Nurse Practitioner Nurse Practitioner 05/05/22 Dick Aguilar PA [address] [place] [address] DR [address] [facility] [place] [address] Physician Centrifugal Drier Operator Orthopedic Surgery 11/11/22 Gavin Sewell MD [address] [place] [address] DR CARLOS QUINTERO [address] [place] [address] Surgeon Orthopedic Surgery 12/24/22 documented as of this encounter
--- OUTSIDE RECORDS SUMMARY | 2025-01-14 12:37 | XMS_ITS | Encounter Summary ---
Author Organization [facility] Address [address] [place] [address] Care Team Providers Care Animal Attendant Name Role Phone Yg Lee MD Primary Care Provider [phone] Reason for Referral * CT Scan (Routine) - Pending Review Specialty Diagnoses / Procedures Referred By Mariaa t Referred To Contact Diagnoses Pulmonary nodules Procedures CT CHEST W CONTRAST Yg Lee MD [address] [place] [address] [address] [place] [address] Phone: tel: fax: [address] [address] Phone: tel: fax: Referral ID Status Reason Start Date Expiration Date V isits Requested Visits Authorized [id number] Pending Review 11/13/2024 12/14/2025 1 1 Reason for Visit * Reason Comments Needs Orders Written Encounter Details Date Type Department Care Team (Late st Contact Info) Description 11/13/2024 Telephone [facility] [address] [place] [address] Yg Lee MD [address] [place] [address] [address] [place] [address] Needs Orders Written Social History [...] on file 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 Gender Identity Not on file Sexual Orientation Not on file Occupation Industry Job Start Date Job End Date Not on file Not on file Not on file Not on file documented as of this encounter Miscellaneous Notes * Telephone Encounter - Alicia Yost PCA - 11/13/2024 2:24 PM CDT Called and spoke with patient and faxed to the [facility] and I let patient know that if she has not heard from them then to give them a call * Telephone Encounter - Yg Lee MD - 11/13/2024 12:49 PM CDT Order placed * Telephone Encounter - Yudi Montiel - 11/13/2024 10:38 AM CDT Copied from [facility] #[id number]. Topic: CPA Information Request - Order or Referral Request >> Nov 13, 2024 10:36 AM Yudi Duran wrote: Caller Name: Antoinette Da Silva Patient/Caregiver Callback Number: Patient Contact Information: [phone] Call Notes: order for ct scan with [...] CDT Office Visit [facility] [place] [address] Yg Lee MD [address] [place] [address] [address] [place] [address] Scheduled Orders Name Type Priority Associated Diagnoses Orde r Schedule CT CHEST W CONTRAST Imaging Routine Pulmonary nodules 1 Occurrences starting 11/13/2024 until 11/13/2025 documented as of this encounter Visit Diagnoses Diagnosis Pulmonary nodules- Primary Other nonspecific abnormal finding of lung field documented in this encounter Care Teams Animal Attendant Relationship Specialty Start Date End Date Yg Lee MD PCP - General Internal Medicine 12/20/18 documented as of this encounter
--- OUTSIDE RECORDS SUMMARY | 2025-01-14 12:38 | XMS_ITS | Referral Summary ---
Author Organization [facility] Address [address] [place] [address] Care Team Providers Care Assistant Accounting Manager Name Role Phone Yg Lee MD Primary Care Provider + Mitchell Zamarripa MD Unavailable [phone] Brit More NP Unavailable [phone] Cliff Ronquillo NP Unavailable [phone] Dick Aguilar Unavailable [phone] Gavin Sewell MD Unavailable [phone] Encounters Date Type Department Care Team Description 12/20/2024 7:50 AM CDT - 12/20/2024 11:59 PM CDT Hospital Encounter [facility] Emergency, Room R Discharge Disposition: Discharge to home or self care 12/19/2024 9:10 PM CDT - 12/20/2024 7:45 AM CDT Emergency [facility] Emergency Department [address] [place] [address] Puma Mobley MD Surgical wound infection (Primary Dx); Hyponatremia; Hypokalemia Discharge Disposition: Discharge to not defined facility 12/12/2024 2:52 PM CDT - 12/12/2024 11:59 PM CDT Hospital Encounter [facility] [address] [place] [address] Pulmonary nodules Discharge Disposition: Discharge to home or self care 12/11/[address] [place] [address] SenecaZan snider from Last 3 Months Allergies Active Allergy [...] 1 tablet (100 mcg total) by mouth cvir tech before breakfast 1 Active celecoxib (CeleBREX) 100 [...] 08/14/2024 Assessment & Plan (08/14/2024 9:48 AM SLIP LASTER): The patient likely has chronic cholecystitis given [...] (04/23/2022): Added automatically from request for surgery [id number] Posterior tibial tendon dysfunction 03/02/2022 Flat foot [...] 01/04/2018 Assessment & Plan (09/19/2018 1:30 PM SLIP LASTER): Low disease activity today on exam. Take [...] obtain past records. Plan: Cardio consult TTE Lasjane Diffuse connective tissue disease 01/18/2012 04/26/2018 Polyarthropathy [...] How often do you attend chur or worship services? Never 12/23/2022 Do you belong to any clubs o r organizations such as anabaptist groups, unions, fraternal or athletic groups, or [...] 11/23/2023 [facility], [facility] - Occupational Stress Questionnaire Answer Date [...] place to sleep or slept in a skilled nursing (including now)? No 12/23/2022 Personal Safety Answer Date Recorded Have you ever been in or are you currently in a harmful physical or emotional relationship or is someone making you feel afraid or unsafe? Denies 12/19/2024 Comments No Sex and Gender Information Value Date Recorded Sex Assigned at Not on file Legal Sex Female 11:50 PM SLIP LASTER Gender Identity Not on file Sexual Orientation [...] file Medical Devices Implanted Type Area Clinical Biostatistician Device Identifier Shelf Expiration Date Model / Serial / Lot Exactech Restrictor Cement Cemex Small Od13mm Tpa-13 - [id number] Implanted:Qty: 1 on 05/04/2022 by Gavin Sewell MD at [facility] Left: Shoulder Exactech 08/28/2023 TPA-13 / / [id number] Exactech Equinoxe Reverse Shoulder +0mm Tray Humeral Adapter 320-10-00 - [id number] - [id number] Implanted:Qty: 1 on 05/04/2022 by Gavin Sewell MD at [facility] [id number] 04/07/203200 / [id number] / Exactech Equinoxe 40mm Small Reverse Constrain Shoulder +2.5mm Liner 320-40-13 - [id number] - [id number] Implanted:Qty: 1 on 05/04/2022 by Gavin Sewell MD at [facility] 01/31/2024 320-40-13 / [id number] / Exactech Equinoxe Lock Reverse Shoulder Glenosphere Screw Bone 320-15 - [id number] - [id number] Implanted:Qty: 1 on 05/04/2022 by Gavin Sewell MD at [facility] Left: Shoulder Exactech 03/09/2027-15- / [id number] / Exactech Reverse Torque Define Shoulder Kit Screw 320 - [id number] - [id number] Implanted:Qty: 1 on 05/04/2022 by Gavin Sewell MD at [facility] Left: Shoulder Exactech 02/03/2027 320 / [id number] / Exactech Equinoxe Small Reverse Superior Posterior Augment Shoulder Left 320-35-07 - [id number] - [id number] Implanted:Qty: 1 on 05/04/2022 by Gavin Sewell MD at [facility] Left: Shoulder Exactech [id number] 04/08/2031 320-35-07 / [id number] / Exactech Equinoxe 10mm Stem Humeral Sterile 300-01-10 - [id number] - [id number] Implanted:Qty: 1 on 05/04/2022 by Gavin Sewell MD at [facility] Left: Shoulder Exactech [id number] 09/07/2031 300--10 / [id number] / [employer] Cement Bone Simplex Gentamicin High Viscosity 40gm 6195-1-001 - [id number] Implanted:Qty: 1 on 05/04/2022 by Gavin Sewell MD at [facility] Left: Shoulder [employer] 09/28/2023 6195-1-001 / / [id number] Exactech Equinoxe 40mm 24.3mm Small Reverse Shoulder Sphere Glenoid 320-31-40 - [id number] - [id number] Implanted:Qty: 1 on 05/04/2022 by Gavin Sewell MD at [facility] Left: Shoulder Ex[employer]ech [id number] 12/11/2030 320-31-40 / [id number] / Exactech Equinoxe 4.5mm 38mm Kit Compression Lock Cap Reverse Shoulder 320-20-38 - [id number] - [id number] Implanted:Qty: 1 on 05/04/2022 by Gavin Sewell MD at [facility] Left: Shoulder [employer]ech [id number] 01/12/2027 320-20-38 / [id number] / Exactech Equinoxe 4.5mm 34mm Kit Compression Lock Cap Reverse Shoulder 320-20-34 - [id number] - [id number] Implanted:Qty: 1 on 05/04/2022 by Gavin Sewell MD at [facility] Left: Shoulder Exactech [id number] 07/14/2026 320-20-34 / [id number] / [employer] Insert Tibial Knee Fixed Lm Posterior Stabilized Attune 7mm Size 5 Polyethylene [id number] - [id number] Implanted:Qty: 1 on 11/10/2022 by Gavin Sewell MD at [facility] Left: Knee [employer] 07/28/2030 [id number] / / [id number] [employer] Attune Cruciate Retain Cementless Knee Left 5 Component Femoral [id number] - [id number] Implanted:Qty: 1 on 11/10/2022 by Gavin Sewell MD at [facility] Left: Knee [employer] 04/28/2032 [id number] / / [id number] [employer] Attune Fb Tib Base Sz 5 Por [id number] - [id number] Implanted:Qty: 1 on 11/10/2022 by Gavin Sewell MD at [facility] Left: Knee [employer] 03/28/2032 [id number] / / [id number] Procedures Procedure Name Priority Date/Time Associated Diagnosis [...] BLOOD CULTURE STAT 12/19/2024 4:[address] CHEST W CONTRAST Schedule Routine, Read Routine (OP Routine) 12/12/2024 3:53 PM CDT Pulmonary nodules SERUM HEPATITIS C AB Routine 11/01/2014 8:32 AM SLIP LASTER DIGITAL MAMMOGRAPHY Routine 12/11/2013 1 1:01 AM [...] uric acid stone formation. Source: [facility] [employer] Current Interpretive Data was last revised on [...] MICROBIOLOGY - GENERAL OR DERABLES Final Result [facility] ([place]) 1 [facility] [place] [address] * Sodium, urine, random (12/20/2024 1:55 AM CDT) Sodium, ur 48 mmol/L Comment: Interpretive Data No reference range established. Current interpretive data was last revised 2019. Urine 12/20/2024 1:55 AM CDT 12/20/2024 5:56 AM CDT Narrative KADIYUN PHILLIPS ([place]) - 12/20/2024 6:16 AM CDT No normal range Puma Mobley MD LAB URINE ORDERABLES Final Re sult Performing Organization Address [facility]/ZIP Co de Phone Number JL PHILLIPS ([place]) 1 [facility] [place] [address] * Potassium, urine, random (12/20/2024 1:55 AM CDT) Potassium conc, ur 15.5 mmol/L Comment: Interpretive Data No reference range established. Current interpretive data was last revised 2019. Urine 12/20/2024 1:55 AM CDT 12/20/2024 5:56 AM CDT Puma Mobley MD LAB URINE ORDERABLES Final Re sult JL PHILLIPS ([place]) 1 [facility] [place] [address] * Osmolality, urine (12/20/2024 1:55 AM CDT) Osmo, ur 269 mOsm/kg Comment:Testing performed by : [facility], 1 [facility], [place]., [address] Urine 12/20/2024 1:55 AM CDT 12/20/2024 9:56 AM CDT Puma Mobley MD LAB URINE ORDERABLES Final Re sult Performing Organization Address [facility] Co de Phone Number JL PHILLIPS ([place]) 1 [facility] [place] [address] * Chloride, urine, random (12/20/2024 1:55 AM CDT) Chloride, ur 46 mmol/L Comment: Interpretive Data No reference range established. Current interpretive data was last revised 2019. Urine 12/20/2024 1:55 AM CDT 12/20/2024 5:56 AM CDT Narrative [place]) - 12/20/2024 6:16 AM CDT No normal range Puma Mobley MD LAB URINE ORDERABLES Final Re sult Performing Organization Address [facility] Co de Phone Number [place] 1 [facility] [place] [address] * XR Hand Right 3 or More [...] signed by Chepe SHOEMAKER: SAHARA Report ID: [id number] Reading Location: [id number] Procedure Note Chepe Gibbons MD - 12/19/2024 [...] signed by Chepe SHOEMAKER: SAHARA Report ID: [id number] Reading Location: [id number] us Puma Mobley MD IMG XR PROCEDURES [...] Chepe Gibbons M.D. KH: SAHARA Report ID: [id number] Reading Location: [id number] Procedure Note Chepe Gibbons MD - 12/19/2024 [...] Chepe Gibbons M.D. KH: SAHARA Report ID: [id number] Reading Location: [place] [address] Puma Mobley MD IMG XR PROCEDURES Final Resul t * TSH (12/19/2024 9:42 PM CDT) Thyroid Stimulating Hormone 1.32 0.30 - 4.20 mcIUnit/mL Blood 12/19/2024 9:42 PM CDT 12/19/2024 11:07 PM CDT Puma Mobley MD LAB BLOOD ORDERABLES Final Re sult [facility] ([place]) [address] [place] [address] [place] [address] * (ABNORMAL) Osmolality, blood (12/19/2024 9:42 PM CDT) Osmo 255(C) 275 - 300 mOsm/kg Comment:Testing performed by : [facility], 1 [facility], [place]., [address] Blood 12/19/2024 9:42 PM CDT 12/20/2024 9:56 AM CDT Puma Mobley MD LAB BLOOD ORDERABLES Final Re sult [facility] ([place]) 1 [facility] [place] [address] * Magnesium (12/19/2024 9:42 PM CDT) Magnesium 1.7 1.4 - 2.5 mg/dL Blood 12/19/2024 9:42 PM CDT 12/19/2024 11:07 PM CDT us Puma Mobley MD LAB BLOOD ORDERABLES Final Re sult JL PHILLIPS [place] [id number]|2025-01-14 12:38:00|2025-01-14 12:37:00|XMS_ITS|BKG DAEMON|External Medical Summaries|[id number]|" Clinical Summary Created on: January 14, 2025 Antoinette Da Silva : 1960 Sex: Female Author Organization [facility] Address [address] [place] [address] Care Team Providers Care Assistant Accounting Manager Name Role Phone Yg Lee MD Primary Care Provider + Mitchell Zamarripa MD Unavailable [phone] Brit More NP Unavailable [phone] Cliff Ronquillo NP Unavailable [phone] Dick Aguilar Unavailable [phone] Gavin Sewell MD Unavailable [phone] Allergies Active Allergy Reactions Criticality Noted Date [...] 1 tablet (100 mcg total) by mouth cvir tech before breakfast 1 Active celecoxib (CeleBREX) 100 [...] 08/14/2024 Assessment & Plan (08/14/2024 9:48 AM SLIP LASTER): The patient likely has chronic cholecystitis given [...] (04/23/2022): Added automatically from request for surgery [id number] Posterior tibial tendon dysfunction 03/02/2022 Flat foot [...] 01/04/2018 Assessment & Plan (09/19/2018 1:30 PM SLIP LASTER): Low disease activity today on exam. Take [...] Encounters Date Type Department Care Team Description 12/20/2024 7:50 AM CDT - 12/20/2024 11:59 PM CDT Hospital Encounter [facility] Emergency, Room R Discharge Disposition: Discharge to home or self care 12/19/2024 9:10 PM CDT - 12/20/2024 7:45 AM CDT Emergency [facility] Emergency Department [address] [place] [address] Puma oMbley MD Surgical wound infection (Primary Dx); Hyponatremia; Hypokalemia Discharge Disposition: Discharge to not defined facility 12/12/2024 2:52 PM CDT - 12/12/2024 11:59 PM CDT Hospital Encounter [facility] [address] [place] [address] Pulmonary nodules Discharge Disposition: Discharge to home or self care 12/11/2024 Telephone [facility] [address] [place] [address] Zan Wagner from Last 3 Months Immunizations [...] Other Thyroid Diso rder - (Added by [employer]) Hypothyroidism Sister Relation Name Status Comments [...] week 12/23/2022 How often do you attend [facility] or worship services? Never 12/23/2022 Do you belong to any clubs o r organizations such as anabaptist groups, unions, fraternal or athletic groups, or [...] place to sleep or slept in a skilled nursing (including now)? No 12/23/2022 Personal Safety Answer Date Recorded Have you ever been in or are you currently in a harmful physical or emotional relationship or is someone making you feel afraid or unsafe? Denies 12/19/2024 Comments No Sex and Gender Information Value Date Recorded Sex Assigned at Not on file Legal Sex Female 11:50 PM SLIP LASTER Gender Identity Not on file Sexual Orientation [...] history exists Medical Devices Implanted Type Area Clinical Biostatistician Device Identifier Shelf Expiration Date Model / Serial / Lot Exactech Restrictor Cement Cemex Small Od13mm Tpa-13 - [id number] Implanted:Qty: 1 on 05/04/2022 by Gavin Sewell MD at [facility] Left: Shoulder Ex[employer]ech 08/28/2023 TPA-13 / / [id number] Exactech Equinoxe Reverse Shoulder +0mm Tray Humeral Adapter 320-10 - [id number] - [id number] Implanted:Qty: 1 on 05/04/2022 by Gavin Sewell MD at [facility] [employer] [id number] 04/07/2032 320-10- / [id number] / Exactech Equinoxe 40mm Small Reverse Constrain Shoulder +2.5mm Liner -40- - [id number] - [id number] Implanted:Qty: 1 on 05/04/2022 by Gavin Sewell MD at [facility] [employer] 01/31/2024 320-40-13 / [id number] / Exactech Equinoxe Lock Reverse Shoulder Glenosphere Screw Bone 320-15 - [id number] - [id number] Implanted:Qty: 1 on 05/04/2022 by Gavin Sewell MD at [facility] Left: Shoulder [employer]ech 03/09/2027 320-15- / [id number] / Exactech Reverse Torque Define Shoulder Kit Screw 320-20 - [id number] - [id number] Implanted:Qty: 1 on 05/04/2022 by Gavin Sewell MD at [facility] Left: Shoulder Ex[employer]ech 02/03/2027 320-20- / [id number] / Exactech Equinoxe Small Reverse Superior Posterior Augment Shoulder Left 320-35- - [id number] - [id number] Implanted:Qty: 1 on 05/04/2022 by Gavin Sewell MD at [facility] Left: Shoulder [employer]ech [id number] 04/08/2031 320-35- / [id number] / Exactech Equinoxe 10mm Stem Humeral Sterile 300-09-07 - [id number] - [id number] Implanted:Qty: 1 on 05/04/2022 by Gavin Sewell MD at [facility] Left: Shoulder Ex[employer]ech [id number] 09/07/2031 300-09-07 / [id number] / [employer] Cement Bone Simplex Gentamicin High Viscosity 40gm 6195-1-001 - [id number] Implanted:Qty: 1 on 05/04/2022 by Gavin Sewell MD at [facility] Left: Shoulder [employer] 09/28/2023 6195-1-001 / / [id number] Exactech Equinoxe 40mm 24.3mm Small Reverse Shoulder Sphere Glenoid 320-31-40 - [id number] - [id number] Implanted:Qty: 1 on 05/04/2022 by Gavin Sewell MD at [facility] Left: Shoulder Exactech [id number] 12/11/2030 320-31-40 / [id number] / Exactech Equinoxe 4.5mm 38mm Kit Compression Lock Cap Reverse Shoulder 320-20-38 - [id number] - [id number] Implanted:Qty: 1 on 05/04/2022 by Gavin Sewell MD at [facility] Left: Shoulder [employer]ech [id number] 01/12/2027 320-20-38 / [id number] / Exactech Equinoxe 4.5mm 34mm Kit Compression Lock Cap Reverse Shoulder 320-20-34 - [id number] - [id number] Implanted:Qty: 1 on 05/04/2022 by Gavin Sewell MD at [facility] Left: Shoulder Exactech [id number] 07/14/2026 320-20-34 / [id number] / [employer] Insert Tibial Knee Fixed Lm Posterior Stabilized Attune 7mm Size 5 Polyethylene [id number] - [id number] Implanted:Qty: 1 on 11/10/2022 by Gavin Sewell MD at [facility] Left: Knee [employer] 07/28/2030 [id number] / / [id number] [employer] Attune Cruciate Retain Cementless Knee Left 5 Component Femoral [id number] - [id number] Implanted:Qty: 1 on 11/10/2022 by Gavin Sewell MD at [facility] Left: Knee [employer] 04/28/2032 [id number] / / [id number] [employer] Attune Fb Tib Base Sz 5 Por [id number] - [id number] Implanted:Qty: 1 on 11/10/2022 by Gavin Sewell MD at [facility] Left: Knee [employer] 03/28/2032 [id number] / / [id number] Procedures Procedure Name Priority Date/Time Associated Diagnosis [...] BLOOD CULTURE STAT 12/19/2024 4:[address] CHEST W CONTRAST Schedule Routine, Read Routine (OP Routine) 12/12/2024 3:53 PM CDT Pulmonary nodules SERUM HEPATITIS C AB Routine 11/01/2014 8:32 AM SLIP LASTER DIGITAL MAMMOGRAPHY Routine 12/11/2013 1 1:01 AM CDT from Last 3 Months or Most Recently Relevant to Health Maintenance Results * (ABNORMAL) Urinalysis reflex to microscopic and culture Urine, bladder (12/20/2024 1:55 AM CDT) Color, ur Yellow Yellow Clarity, ur Turbid(A) Clear JL Chaudhari ([place]) Specific gravity, ur 1.010 1.003 - 1.030 [facility] ([place]) pH, urine 6.5 [facility] ([place]) Comment: Interpretive Data U rine pH is affected by diet, medications, systemic acid-base disturbances, and renal tubular function. pH may affect urinary stone formation. For example, urine pH below 6.0 may help reduce the tendency for calcium phosphate stones and pH greater than 6.0 may reduce the tendency for uric acid stone formation. Source: [employer] Current Interpretive Data was last revised on [...] MICROBIOLOGY - GENERAL OR DERABLES Final Result Performing Organization Address [facility]/ZIP Co de Phone Number JL PHILLIPS ([place]) [address] [place] [address] [place] [address] * Sodium, urine, random (12/20/2024 1:55 AM CDT) Sodium, ur 48 mmol/L Comment: Interpretive Data No reference range established. Current interpretive data was last revised 2019. Urine 12/20/2024 1:55 AM CDT 12/20/2024 5:56 AM CDT Narrative [facility] ([place]) - 12/20/2024 6:16 AM CDT No normal range us Puma Mobley MD LAB URINE ORDERABLES Final Re sult Performing Organization Address City/[facility]/ZIP Co de Phone Number [facility]L [facility] ([place]) 1 [facility] [place] [address] * Potassium, urine, random (12/20/2024 1:55 AM CDT) Potassium conc, ur 15.5 mmol/L Comment: Interpretive Data No reference range established. Current interpretive data was last revised 2019. Urine 12/20/2024 1:55 AM CDT 12/20/2024 5:56 AM CDT Puma Mobley MD LAB URINE ORDERABLES Final Re sult Performing Organization Address [facility] Co de Phone Number JL PHILLIPS ([place]) 1 [facility] [place] [address] * Osmolality, urine (12/20/2024 1:55 AM CDT) Osmo, ur 269 mOsm/kg Comment:Testing performed by : [facility], [address] [place]., [address] Urine 12/20/2024 1:55 AM CDT 12/20/2024 9:56 AM CDT Puma Mobley MD LAB URINE ORDERABLES Final Re sult Performing Organization Address [facility] de Phone Number JL PHILLIPS ([place]) 1 [facility] [place] [address] * Chloride, urine, random (12/20/2024 1:55 AM CDT) Chloride, ur 46 mmol/L Comment: Interpretive Data No reference range established. Current interpretive data was last revised 2019. Urine 12/20/2024 1:55 AM CDT 12/20/2024 5:56 AM CDT Narrative JL PHILLIPS ([place]) - 12/20/2024 6:16 AM CDT No normal range Puma Mobley MD LAB URINE ORDERABLES Final Re sult Performing Organization Address [facility] Co de Phone Number JL PHILLIPS ([place]) 1 [facility] [place] [address] * XR Hand Right 3 or More [...] Chepe Gibbons M.D. KH: SAHARA Report ID: [id number] Reading Location: [id number] Procedure Note Chepe Gibbons MD - 12/19/2024 [...] Chepe Gibbons M.D. KH: SAHARA Report ID: [id number] Reading Location: [id number] us Puma Mobley MD IMG XR PROCEDURES [...] Chepe Gibbons M.D. KH: SAHARA Report ID: [id number] Reading Location: [id number]
--- OUTSIDE RECORDS SUMMARY | 2025-01-14 12:39 | XMS_ITS | Clinical Summary ---
Author Organization [facility] Address [address] [place] [address] Phone Care Team Providers Care Tar Worker Name Role Phone Jose Cruz Ledezma Primary Care Provider [phone] Allergies Active Allergy Reactions Criticality Noted Date [...] age to complete this topic Insurance MEDICARE [employer] GENERIC Care Teams Tar Worker Relationship Specialty Start Date End Date Jose Cruz Ledezma PAC [address] [place] [address] PCP - General Physician Meters Superintendent 01/28/20
--- OUTSIDE RECORDS SUMMARY | 2025-01-14 12:39 | XMS_ITS | Encounter Summary ---
Author Organization [facility] Healthcare Address [address] [place] [address] Care Team Providers Care Stereoplotter Operator Name Role Phone Jose Cruz Ledezma Primary Care Provider [phone] Yg Lee MD Primary Care Provider + Mitchell Zamarripa MD Unavailable [phone] Brit More MACHINE PROGRAMMER Unavailable [phone] Cliff Ronquillo NP Unavailable [phone] Dick Aguilar Unavailable [phone] Gavin Sewell MD Unavailable [phone] Reason for Visit * Reason Onset Date Comments Scheduling Appointments 03/24/2020 Called f or DEXA appointment reminder Encounter Details Date Type Department Care Team (Late st Contact Info) Description 03/24/2020 Telephone [facility] [address] [place] [phone] Valencia Hernandez RT Scheduling Appointments (Called for DEXA appointment reminder) Social History Tobacco Use Types Packs/Day Years Used Date Smoking Tobacco: Former Smokeless Tobacco: Never Alcohol Use Standard Drinks/Week Comments Yes 0 (1 standard drink = 0.6 oz pur e alcohol) occasional Comments No Sex and Gender Information Value Date Recorded Sex Assigned at Not on file Legal Sex Female 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 Gender Identity Not on file Sexual Orientation [...] COVID: Suspected 07/22/2024 07/22/2024 07/22/2024 9:25 AM PROMOTION WRITER documented as of this encounter Care Teams Stereoplotter Operator Relationship Specialty Start Date End Date Jose Cruz Ledezma PA [address] [place] [address] PCP - General 01/24/20 08/18/20 Yg Lee MD [address] [place] [address] PCP - General Internal Medicine 08/19/20 Mitchell Zamarripa MD [address] [place] [address] Referring Physician Rheumatology 03/11/22 Brit More NP [address] [place] [address] Nurse Practitioner Cardiovascular Disease 03/11/22 Cliff Ronquillo NP [address] [place] [address] [address] [place] [address] Nurse Practitioner Nurse Practitioner 05/05/22 Dick Aguilar PA [address] [place] [address] [address] [place] [address] Physician Child Care Orthopedic Surgery 11/11/22 Gavin Sewell MD [address] [facility] [address] [facility] [address] [place] [address] Surgeon Orthopedic Surgery 12/24/22 documented as of this encounter
--- OUTSIDE RECORDS SUMMARY | 2025-01-14 12:39 | XMS_ITS | Encounter Summary ---
Author Organization [facility] Address [address] [place] [address] Care Team Providers Care Records Management Technician Name Role Phone Yg Lee MD Primary Care Provider [phone] Shandra Ruffin APRN-[facility] Primary Care Provider Yg Lee MD Primary Care Provider [phone] Shandra Ruffin APRN-[facility] Primary Care Provider Yg Lee MD Primary Care Provider [phone] Shandra Ruffin APRN-[facility] Primary Care Provider Encounter Details Date Type Department Care Team (Late st Contact Info) Description 05/18/2019 Telephone [facility] [address] [place] [address] Mitchell Zamarripa MD [address] [place] [address] [place] [address] Social History Tobacco Use Types Packs/Day Years Used Date Smoking Tobacco: Every Day Cigarettes Alcohol Use Standard Drinks/Week Comments Yes 0 (1 standard drink = 0.6 oz pur e alcohol) occasional Comments No Sex and Gender Information Value Date Recorded Sex Assigned at Not on file Legal Sex Female 1:04 PM [employer]EEP[employer] Gender Identity Not on file Sexual [...] seen sooner. Please give her a call. [facility] Patient Call Back number: [phone]. documented in this encounter Plan of Treatment Not on file documented as of this encounter Visit Diagnoses Not on filedocumented in this encounter Care Teams Records Management Technician Relationship Specialty Start Date End Date Yg Lee MD [address] [place] [phone] PCP - General 10/28/11 05/23/19 Shandra Ruffin APRN-[employer] [address] [place], [place] [phone] PCP - General 05/24/19 07/20/20 Yg Lee MD [address] [place], [place] [phone] PCP - General Internal Medicine 07/21/20 07/21/20 Shandra Ruffin APRN-[employer] [address] [place] [phone] PCP - General 07/22/20 11/15/21 Yg Lee MD [address] [place] [phone] PCP - General Internal Medicine 11/16/21 04/01/22 Shandra Ruffin APRN-[employer] [address] [place] [address] [place] [phone] PCP - General 04/02/22 documented as of this encounter
--- OUTSIDE RECORDS SUMMARY | 2025-01-14 12:39 | XMS_ITS | Data Portability ---
Author Organization [facility] Address [address] [place] [address] Care Team Providers Care It Application Administrator Name Role Phone JAM LEDEZMA Primary Care Provider [phone] Assessment No assessment recorded. Plan of Treatment Reminders Order Date Submit Date Provider Last Modified By Organization Details Last Modified Time Details Appointments None recorde d. Lab PTH (parath yroid hormone ), intact + calcium , serum or plasma 2019 020 bbertoglioma [facility], [address] [place] [address], [address], [place], [address], 0 18:10:55 unliste d lab - complia nce drug analysi s, ur 2019 020 REUBEN [facility], [address] [place] [address], [address], [place], [address], 0 15:09:11 PTH (parath yroid hormone ), intact + calcium , serum or plasma 2019 020 hspraggs [facility], [address] [facility], [address], [place], [address], 0 15:26:23 Referral orthope dic referra l 2019 020 [facility], [address] [facility], [place], [address], 0 14:14:57 oncolog ist referra l - ANABEL 2019 020 ssaterri Rivero MD, [address] [facility] , [address], [place], [address], 0 11:06:22 dermato logist referra l 2019 jaceynder Not available 0 14:26:11 Procedures None recorde d. Surgeries None recorde d. Imaging NM, bone scan 2019 020 bbertoglioma [facility] (Radiology), [address] [facility] , [place], [address], 0 15:52:19 CT, lower leg, w/ contras t 2019 020 [facility] (Scheduling), [address] [facility], [place], [address], 0 15:02:33 XR, lumbar spine 2019 020 REUEBN [facility]uling, [address] [facility], [place], [address], 0 14:17:01 Medication Orders calcito marlo (salmon ) 200 unit/ac tuation nasal spray 2019 020 INTERFACE [facility][id number], [address], [place], [place], [id number], 0 15:02:19 acetami nophen 300 mg-code ine 30 mg tablet 2019 020 dturnerma [facility] #[id number], [address], [place], [place], [id number], 1 17:09:49 gabapen tin 100 mg capsule 2019 020 [facility] #[id number], [address], [place], [place], [id number], 0 12:02:47 Patient TargetsNo targets recorded. Patient Instructions Encounter Date Encounter Id Patient Instructions Last Modified By Organization Details Last Modified Time 01/30/2020 [id number] osteoporosis: care instructions milly Not available 01/30/2020 15:02:14 Reason for Referral Supervisor Salvage Referral for C omplaining of a rash Referring Physician: Jam Ledezma [facility], Encounter Date: 02/20/2020 ANABEL [...] [facility] ([facility]) [address] [place], [address], 12/28/2019 07:08:47 12/27/1912/28/2019 CMP, serum or plasm a BUN 15 mg/dL 6-24 Not Available [facility] ([facility]) [address] [place], [address], 12/28/2019 07:08:47 12/27/1912/28/2019 CMP, serum or plasm a creatinine 0.80 mg/dL 0.57-1 .00 Not Available [facility] ([facility]) [address] [place], [address], 12/28/2019 07:08:47 12/27/1912/28/2019 CMP, serum or plasm a eGFR if nonafricn AM 82 mL/mi n/1.7 3 >59 Not Available [facility] ([facility]) [address] [place], [address], 12/28/2019 07:08:47 12/27/1912/28/2019 CMP, serum or plasm a eGFR if africn AM 95 mL/mi n/1.7 3 >59 Not Available [facility] ([facility]) [address] [facility] [place] [place], [address], 12/28/2019 07:08:47 12/27/19 20 12/28/2019 CMP, serum or plasm a BUN/creatini ne ratio 19 9-23 Not Available [facility] ([facility]) [address] [facility] [place] [place], [address], 12/28/2019 07:08:47 12/27/1912/28/2019 CMP, serum or plasm a sodium 138 mmol/ L 134-14 4 Not Available [facility] ([facility]) [address] [facility] [place] [place], [address], 12/28/2019 07:08:47 12/27/1912/28/2019 CMP, serum or plasm a potassium 4.2 mmol/ L 3.5-5. 2 Not Available [facility] ([facility]) [address] [facility] [place] [place], [address], 12/28/2019 07:08:47 12/27/1912/28/2019 CMP, serum or plasm a chloride 98 mmol/ L 96-106 Not Available [facility] ([facility]) [address] [facility] [place] [place], [address], 12/28/2019 07:08:47 12/27/1912/28/2019 CMP, serum or plasm a carbon dioxide, total 23 mmol/ L 20-29 Not Available [facility] ([facility]) [address] [facility] [place], [address], 12/28/2019 07:08:47 12/27/1912/28/2019 CMP, serum or plasm a calcium 10.1 mg/dL 8.7-10 .2 Not Available [facility] ([facility]) [address] [place], [address], 12/28/2019 07:08:47 12/27/19 20 12/28/2019 CMP, serum or plasm a protein, total 7.3 g/dL 6.0-8. 5 Not Available [facility] ([facility]) [address] [place], [address], 12/28/2019 07:08:47 12/27/1912/28/2019 CMP, serum or plasm a albumin 4.8 g/dL 3.8-4. 9 Not Available [facility] ([facility]) [address] [place], [address], 12/28/2019 07:08:47 12/27/1912/28/2019 CMP, serum or plasm a globulin, total 2.5 g/dL 1.5-4. 5 Not Available [facility] ([facility]) [address] [place], [address], 12/28/2019 07:08:47 12/27/1912/28/2019 CMP, serum or plasm a A/G ratio 1.9 1.2-2. 2 Not Available [facility] ([facility]) [address] [place], [address], 12/28/2019 07:08:47 12/27/1912/28/2019 CMP, serum or plasm a bilirubin, total 0.4 mg/dL 0.0-1. 2 Not Available [facility] ([facility]) [address] [place], [address], 12/28/2019 07:08:47 12/27/1912/28/2019 CMP, serum or plasm a alkaline phosphatase 114 IU/L 39-117 Not Available [facility] ([facility]) [address] [place], [address], 12/28/2019 07:08:47 12/27/1912/28/2019 CMP, serum or plasm a AST (SGOT) 40 IU/L 0-40 Not Available [facility] ([facility]) [address], [place], [address], 12/28/2019 07:08:47 12/27/1912/28/2019 CMP, serum or plasm a ALT (SGPT) 29 IU/L 0-32 Not Available [facility] ([facility]) [address], [place], [address], 12/28/2019 07:08:47 12/27/19 20 12/28/2019 vitam in D, 25-hy droxy , total , serum vitamin D, 25-hydroxy 34.2 NG/mL 30.0-1 00.0 Vitam in D defic iency has been defin ed by the Insti tute of [facility] and an Endoc rine Socie ty pract ice guide line as a level of serum 25-OH vitam in D less than 20 ng/mL (1,2) . The Endoc rine Socie ty went on to furth er defin e vitam in D insuf ficie ncy as a level betwe en 21 and 29 ng/mL (2). 1. IOM (Inst itute of [facility] ine). 2010. Melany ry refer ence kristina es for calci um and D. Zackary baum DC: The [facility] Press . 2. Patricia valdez MF, Jluis ey [place], [place] off-F errar i GARCIA, et al. Evalu ation , treat ment, and preve ntion of vitam in D defic iency : an Endoc rine Socie ty clini tessie pract ice guide line. JCEM. 2010; 96(7) :1911 -30. Not Available [facility] ([facility]) [address], [place], [address], 12/28/2019 07:08:48 02/11/2002/19/2020 drug scree n, urine [...] [place] [address] EXPEC JALYN ng/mg creat Morph ine 1924 EXPEC JALYN ng/mg creat Normo rphin e 572 EXPEC JALYN ng/mg creat [employer] [facility] 1659 EXPEC JALYN ng/mg creat Sourc [...] expec jalyn metab olite of morph ine. [employer] [facility] is an expec jalyn metab olite of codei ne. Gabap entin PRESE NT EXPEC JALYN Desme thylc yclob enzap rine PRESE NT EXPEC JALYN Desme thylc yclob enzap rine is an expec jalyn metab olite of cyclo benza rcihard . Dulox etine PRESE NT EXPEC JALYN [...] Clobe tasol Ezeti mibe Fluti kelsie e [employer] chlor othia zide (Samantha nopri l-HCT Z) [employer] xychl oroqu ine Levot hyrox ine Lisin [...] ===== ===== ===== ===== === Not Available [employer] [address] [facility] [place], [address], 02/19/2020 15:09:11 02/11/20 20 02/19/2020 drug scree n, urine pdf . Not Available [facility] [address] [facility] [place], [address], 02/19/2020 15:09:11 04/28/20 20 04/28/2020 PTH (para [...] [facility] ([facility]) [address] [place], [address], 04/29/2020 17:08:21 04/28/20 20 04/29/2020 PTH (para thyro id hormo ne), intac t + calci um, serum or plasm a calcium TNP mg/dL No serum gel recei dillon. Not Available [facility] ([facility]) [address] [place], [address], 04/29/2020 17:08:21 04/28/20 20 04/29/2020 PTH (para thyro id hormo ne), intac t + calci um, serum or plasm a PTH, intact 63 pg/mL 15-65 Not Available [facility] ([facility]) [address] [place], [address], 04/29/2020 17:08:21 04/28/20 20 04/29/2020 speci men statu s repor t specimen status report TNP No serum gel recei dillon. TEST: [id number] 6 Calci um Panel : [id number] 1 Not Available [facility] ([facility]) [address] [facility], [place], [address], 04/29/2020 17:08:22 04/30/2005/01/2020 TSH + free T4, serum TSH 4.230 uIU/m L 0.450- 4.500 Not Available [facility] ([facility]) [address] [place], [address], 05/01/2020 08:17:01 04/30/2005/01/2020 TSH + free T4, serum T4,free(dire ct) 1.18 NG/dL 0.82-1 .77 Not Available [facility] ([facility]) [address] [place], [address], 05/01/2020 08:17:01 04/30/2005/01/2020 CBC w/ auto diff WBC 5.2 x10e3 /uL 3.4-10 .8 Not Available [facility] ([facility]) [address] [facility], [place], [address], 05/01/2020 08:17:02 04/30/2005/01/2020 CBC w/ auto diff RBC 4.16 x10e6 /uL 3.77-5 .28 Not Available [facility] ([facility]) [address] [facility], [place], [address], 05/01/2020 08:17:02 04/30/2005/01/2020 CBC w/ auto diff hemoglobin 13.9 g/dL 11.1-1 5.9 Not Available [facility] ([facility]) [address] [facility], [place], [address], 05/01/2020 08:17:02 04/30/2005/01/2020 CBC w/ auto diff hematocrit 39.7 % 34.0-4 6.6 Not Available [facility] ([facility]) [address] [facility], [place], [address], 05/01/2020 08:17:02 04/30/2005/01/2020 CBC w/ auto diff MCV 95 fL 79-97 Not Available [facility] ([facility]) [address] [place], [address], 05/01/2020 08:17:02 04/30/2005/01/2020 CBC w/ auto diff MCH 33.4 pg 26.6-3 3.0 above high normal Not Available [facility] ([facility]) [address] [place], [address], 05/01/2020 08:17:02 04/30/2005/01/2020 CBC w/ auto diff MCHC 35.0 g/dL 31.5-3 5.7 Not Available [facility] ([facility]) [address] [facility], [place], [address], 05/01/2020 08:17:02 04/30/2005/01/2020 CBC w/ auto diff RDW 13.4 % 11.7-1 5.4 Not Available [facility] ([facility]) [address] [facility], [place], [address], 05/01/2020 08:17:02 04/30/20 20 05/01/2020 CBC w/ auto diff platelets 296 x10e3 /uL 150-45 0 Not Available [facility] ([facility]) [address] [facility], [place], [address], 05/01/2020 08:17:02 04/30/2005/01/2020 CBC w/ auto diff neutrophils 72 % not estab. Not Available [facility] ([facility]) [address] [facility], [place], [address], 05/01/2020 08:17:02 04/30/2005/01/2020 CBC w/ auto diff lymphs 14 % not estab. Not Available [facility] ([facility]) [address] [facility], [place], [address], 05/01/2020 08:17:02 04/30/2005/01/2020 CBC w/ auto diff monocytes 7 % not estab. Not Available [facility] ([facility]) [address] [facility], [place], [address], 05/01/2020 08:17:02 04/30/2005/01/2020 CBC w/ auto diff eos 4 % not estab. Not Available [facility] ([facility]) [address] [facility], [place], [address], 05/01/2020 08:17:02 04/30/2005/01/2020 CBC w/ auto diff basos 2 % not estab. Not Available [facility] ([facility]) [address] [facility], [place], [address], 05/01/2020 08:17:02 04/30/2005/01/2020 CBC w/ auto diff immature cells SYNTHETIC STAPLE EXTRUDER Not Available [facility] ([facility]) [address] [place], [address], 05/01/2020 08:17:02 04/30/2005/01/2020 CBC w/ auto diff neutrophils (absolute) 3.8 x10e3 /uL 1.4-7. 0 Not Available [facility] ([facility]) [address] [place], [address], 05/01/2020 08:17:02 04/30/2005/01/2020 CBC w/ auto diff lymphs (absolute) 0.7 x10e3 /uL 0.7-3. 1 Not Available [facility] ([facility]) [address] [place], [address], 05/01/2020 08:17:02 04/30/2005/01/2020 CBC w/ auto diff monocytes(ab solute) 0.4 x10e3 /uL 0.1-0. 9 Not Available [facility] ([facility]) [address] [place], [address], 05/01/2020 08:17:02 04/30/2005/01/2020 CBC w/ auto diff eos (absolute) 0.2 x10e3 /uL 0.0-0. 4 Not Available [facility] ([facility]) [address] [place], [address], 05/01/2020 08:17:02 04/30/2005/01/2020 CBC w/ auto diff baso (absolute) 0.1 x10e3 /uL 0.0-0. 2 Not Available [facility] ([facility]) [address] [place], [address], 05/01/2020 08:17:02 04/30/2005/01/2020 CBC w/ auto diff immature granulocytes 1 % not estab. Not Available [facility] ([facility]) [address] [facility] [place], [address], 05/01/2020 08:17:02 04/30/2005/01/2020 CBC w/ auto diff immature grans (abs) 0.0 x10e3 /uL 0.0-0. 1 Not Available [facility] ([facility]) [address] [facility], [place], [address], 05/01/2020 08:17:02 04/30/2005/01/2020 CBC w/ auto diff NRBC SYNTHETIC STAPLE EXTRUDER Not Available [facility] ([facility]) [address] [facility] [place], [address], 05/01/2020 08:17:02 04/30/2005/01/2020 CBC w/ auto diff hematology comments: SYNTHETIC STAPLE EXTRUDER Not Available [facility] ([facility]) [address] [facility], [place], [address], 05/01/2020 08:17:02 04/30/2005/01/2020 CMP, serum or plasm a glucose 109 mg/dL 65-99 above high normal Not Available [facility] ([facility]) [address] [facility] [place], [address], 05/01/2020 08:17:03 04/30/2005/01/2020 CMP, serum or plasm a BUN 12 mg/dL 6-24 Not Available [facility] ([facility]) [address] [place], [address], 05/01/2020 08:17:03 04/30/2005/01/2020 CMP, serum or plasm a creatinine 0.65 mg/dL 0.57-1 .00 Not Available [facility] ([facility]) [address] [place], [address], 05/01/2020 08:17:03 04/30/2005/01/2020 CMP, serum or plasm a eGFR if nonafricn AM 99 mL/mi n/1.7 3 >59 Not Available [facility] ([facility]) [address] [facility] [place], [address], 05/01/2020 08:17:03 04/30/20 20 05/01/2020 CMP, serum or plasm a eGFR if africn AM 114 mL/mi n/1.7 3 >59 Not Available [facility] ([facility]) [address] [facility] [place], [address], 05/01/2020 08:17:03 04/30/20 20 05/01/2020 CMP, serum or plasm a BUN/creatini ne ratio 18 9-23 Not Available [facility] ([facility]) [address] [facility] [place], [address], 05/01/2020 08:17:03 04/30/2005/01/2020 CMP, serum or plasm a sodium 139 mmol/ L 134-14 4 Not Available [facility] ([facility]) [address] [facility] [place], [address], 05/01/2020 08:17:03 04/30/2005/01/2020 CMP, serum or plasm a potassium 4.4 mmol/ L 3.5-5. 2 Not Available [facility] ([facility]) [address] [facility] [place], [address], 05/01/2020 08:17:03 04/30/2005/01/2020 CMP, serum or plasm a chloride 96 mmol/ L 96-106 Not Available [facility] ([facility]) [address] [facility] [place], [address], 05/01/2020 08:17:03 04/30/2005/01/2020 CMP, serum or plasm a carbon dioxide, total 27 mmol/ L 20-29 Not Available [facility] ([facility]) [address] [facility] [place], [address], 05/01/2020 08:17:03 04/30/20 20 05/01/2020 CMP, serum or plasm a calcium 10.0 mg/dL 8.7-10 .2 Not Available [facility] ([facility]) [address] [place], [address], 05/01/2020 08:17:03 04/30/20 20 05/01/2020 CMP, serum or plasm a protein, total 7.0 g/dL 6.0-8. 5 Not Available [facility] ([facility]) [address] [place], [address], 05/01/2020 08:17:03 04/30/2005/01/2020 CMP, serum or plasm a albumin 4.6 g/dL 3.8-4. 9 Not Available [facility] ([facility]) [address] [place], [address], 05/01/2020 08:17:03 04/30/2005/01/2020 CMP, serum or plasm a globulin, total 2.4 g/dL 1.5-4. 5 Not Available [facility] ([facility]) [address] [place], [address], 05/01/2020 08:17:03 04/30/2005/01/2020 CMP, serum or plasm a A/G ratio 1.9 1.2-2. 2 Not Available [facility] ([facility]) [address] [place], [address], 05/01/2020 08:17:03 04/30/2005/01/2020 CMP, serum or plasm a bilirubin, total 0.5 mg/dL 0.0-1. 2 Not Available [facility] ([facility]) [address] [place], [address], 05/01/2020 08:17:03 04/30/2005/01/2020 CMP, serum or plasm a alkaline phosphatase 231 IU/L 39-117 above high normal Not Available [facility] ([facility]) [address] [facility], [place], [address], 05/01/2020 08:17:03 04/30/20 20 05/01/2020 CMP, serum or plasm a AST (SGOT) 83 IU/L 0-40 above high normal Not Available [facility] ([facility]) [address] [facility], [place], [address], 05/01/2020 08:17:03 04/30/2005/01/2020 CMP, serum or plasm a ALT (SGPT) 63 IU/L 0-32 above high normal Not Available [facility] ([facility]) [address] [facility], [place], [address], 05/01/2020 08:17:03 04/30/20 20 04/30/2020 urina lysis , dipst ick Leukocytes Negati ve Not Available In-Office Order Internal Use Only DO Not Attach Compendium DO Not Attach Compendium, Do Not Delete/merge, [id number] 04/30/2020 11:03:06 04/30/2004/30/2020 urina lysis , dipst ick Nitrite negati ve Not Available In-Office Order Internal Use Only DO Not Attach Compendium DO Not Attach Compendium, Do Not Delete/merge, [id number] 04/30/2020 11:03:06 04/30/2004/30/2020 urina lysis , dipst ick Urobilinogen .2 Not Available In-Of fice Order Internal Use Only DO Not Attach Compendium DO Not Attach Compendium, Do Not Delete/merge, [id number] 04/30/2020 11:03:06 04/30/2004/30/2020 urina lysis , dipst ick Protein Negati ve Not Available In-Office Order Internal Use Only DO Not Attach Compendium DO Not Attach Compendium, Do Not Delete/merge, [id number] 04/30/2020 11:03:06 04/30/2004/30/2020 urina lysis , dipst ick pH 6.5 Not Available In-Office Order Internal Use Only DO Not Attach Compendium DO Not Attach Compendium, Do Not Delete/merge, [id number] 04/30/2020 11:03:06 04/30/20 20 04/30/2020 urina lysis , dipst ick Blood Negati ve Not Available In-Office Order Internal Use Only DO Not Attach Compendium DO Not Attach Compendium, Do Not Delete/merge, [id number] 04/30/2020 11:03:06 04/30/20 20 04/30/2020 urina lysis , dipst ick Specific [place] 1.020 Not Available In-Off ice Order Internal [...] r spine No observ ation record ed. [address] [place], [address], 02/07/2020 17:22:18 02/19/20 20 02/19/2020 NM, bone scan No observ ation record ed. [facility] [address] [facility] [place], [address], 02/19/2020 17:52:46 03/25/20 20 03/25/2020 bone densi ty No observ ation record ed. [facility] [address] [place], [address], 03/28/2020 12:17:03 09/12/19 21 09/10/2020 cardi ac stres s test No observ ation record ed. [facility] [address], [place], [address], 09/12/2020 16:33:08 12/18/19 21 12/09/2020 pulmo nary funct ion test* No observ ation record ed. [facility] [address], [place], [address], 12/17/2020 15:14:10 01/03/20 21 01/02/2021 US, duple x, renal arter y No observ ation record ed. [facility] [address], [place], [address], 01/02/2021 14:47:22 01/03/20 21 01/02/2021 stres s echoc ardio gram No observ ation record ed. [facility] [address], [place], [address], 01/02/2021 14:47:41 11/28/19 24 11/25/2023 US, echoc ardio gram, trans esoph ageal No observ ation record ed. [facility] Supervisor [address] [facility] [address], [place], [address], 12/08/2023 11:32:40 01/16/20 24 11/23/2023 CT, angio gram, chest , w/ contr ast No observ ation record ed. mmetias [address] [place], [address], 01/16/2024 15:25:06 Result Notes None recorded. Problems Name Problem SNOMED Code Status Onset Date Resolution Date Notes Provider Name and Address Organization Details Recorded Time Drug therapy finding 025687583 Active 2015 CHIO Niño, [place] - [facility] 0 11:49:27 Enzyme level - finding 722916686 Active 2017 CHIO Niño[place] [facility] 0 11:49:27 Fibromyalgia 218291492 Active 2011 Kallie Sloan [place], [place] [facility] 0 11:49:27 Hypertensive disorder 71398255 Active 2012 Kallie S[place] [facility] 0 11:49:27 Osteopenia 850872665 Active 2011 CHIO Niño[place] [facility] 0 11:49:27 Rheumatoid arthritis 07433182 Active 2017 Kallie S[place] [facility] 0 11:49:27 Problem Notes None recorded. Procedures Surgical History Date Name Laterality Status Provider Name and Address Organization Details Recorded Time hysterectomy completed Anabela Blanc [place] [facility] 09/06/2019 12:01:29 Imaging Results Imaging Date Name Status LastModified by Organization Details LastModified Time 01/28/2020 XR, lumbar spine completed milly Tye [address] [place], [address], 02/07/2020 17:22:18 02/19/2020 NM, [facility] [address] [place], [address], 02/19/2020 17:52:46 03/25/2020 bone density completed nati Gamble [address], [place], [address], [address]|[id number]|2025-01-14 12:39:00|2025-01-14 12:39:00|XMS_ITS|BKG ISRRAEL|External Medical Summaries|[id number]|" Encounter Summary Created on: January 14, 2025 Antoinette Da Silva : 1960 Sex: Female Author Organization [facility] Address 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 Gender Identity Not on file Sexual Orientation Not on file Occupation Industry Job Start Date Job End Date Not on file Not on file Not on file Not on file documented as of this encounter Plan of Treatment Upcoming Encounters Date Type Department Care Team (Late st Contact Info) Description 06/17/2025 11:20 AM CDT Office Visit [facility] Primary Care [facility] [address] [place] [address] [address] [place] [address] Yg Lee MD [address] [place] [address] [address] [place] [address] documented as of this encounter Procedures Procedure Name Priority Date/Time Associated Diagnosis Comments ECHOCARDIOGRAM REPORT Routine 12/21/2024 2:26 PM CDT documented in this encounter Results * ECHOCARDIOGRAM REPORT (12/21/2024 2:26 PM CDT) us Abstract Provider ECHO ORDERABLES Edited Result - Final [facility] INTER[facility] MED [facility] CLIA# [id number] [address] [place] [address] [address] [place] [address] documented in this encounter Visit Diagnoses Not on filedocumented in this encounter Care Teams It Application Administrator Relationship Specialty Start Date End Date Yg Lee MD PCP - General Internal Medicine 12/20/18 documented as of this encounter "
== END 2025-01-14 12:34 | disposition home or self-care (01) ==
LOC: ANHBWCIMG 12:34
PROVIDERS: PCP Internal Medicine; Visit Provider Orthopaedic Surgery
DX: M84.633 Pathological fracture in other disease, right radius (principal); M84.63 Pathological fracture in other disease, ulna and radius
CPT/HCPCS: 73110